=== PATIENT | female | born 1950 | race Caucasian/White ===

== ENCOUNTER → 2020-08-10 08:55 | Outpatient (BNVA) | payer OTHER, SELFPAY | PROVIDERS: PCP Internal Medicine; Visit Provider Physician Assistant | DX: M77.8 Other enthesopathies, not elsewhere classified (principal) | CPT/HCPCS: 99213 ==

== ENCOUNTER 2020-08-21 13:19 | Outpatient (REF) | payer OTHER, SELFPAY ==
[2020-08-21 14:53] LABS: Basophils Percent Auto 0.5 % (0-2); Eosinophils Absolute Auto 0.1 X10*3/uL (0.0-0.4); Eosinophils Percent Auto 2.1 % (0-4); Hematocrit 33.5 % (37-47); Hemoglobin 10.2 g/dl (12.0-16.0); Imm Gran Abs Auto 0.02 X10*3/uL (0.00-0.03); Imm Gran Pct Auto 0.3 % (0.0-0.4); Lymphocytes Absolute Auto 0.5 X10*3/uL (1.2-4.9); Lymphocytes Percent Auto 8.2 % (20-40); MANUAL DIFF FLAG SCAN; Mean Corpuscular HGB Conc 30.4 g/dl (31.0-35.0); Mean Corpuscular Hemoglobin 26.6 pg (27.0-33.0); Mean Corpuscular Volume 87.5 fL (80-98); Mean Platelet Volume 11.8 fL (9.4-12.3); Monocytes Absolute Auto 0.6 X10*3/uL (0.1-1.2); Monocytes Percent Auto 9.3 % (2-11); Neutrophils Absolute Auto 4.9 X10*3/uL (2.0-8.3); Neutrophils Percent Auto 79.6 % (45-73); Platelet Count 165 X10*3/uL (160-400); Red Blood Count 3.83 X10*6/uL (4.20-5.50); SCAN SMEAR FLAG 1; White Blood Count 6.1 X10*3/uL (4.8-10.8)
[2020-08-21 15:15] LABS: Anion Gap 15 (12-20); Blood Urea Nitrogen 60 mg/dL (9-16); Calcium 8.5 mg/dL (8.4-10.2); Carbon Dioxide 25 mmol/L (22-29); Chloride 104 mmol/L (96-108); Estimated Glomerular Filt Rate 21; Glucose Random 88 mg/dL (60-115); Potassium 4.6 mmol/l (3.3-5.1); Sodium 139 mmol/L (135-145)
[2020-08-21 15:16] LABS: SLIDE REVIEW VERIFIED
== END 2020-08-21 13:20 | disposition home or self-care (01) ==
LOC: HO.LABR 13:19
PROVIDERS: PCP Internal Medicine; Visit Provider Internal Medicine
DX: N18.9 Chronic kidney disease, unspecified (principal)
CPT/HCPCS: 36415; 80048; 85025; 85610; 99211

== ENCOUNTER → 2020-08-27 15:38 | Outpatient (BNVA) | payer OTHER, SELFPAY | PROVIDERS: PCP Internal Medicine; Visit Provider Internal Medicine | DX: Z95.2 Presence of prosthetic heart valve (principal); Z51.81 Encounter for therapeutic drug level monitoring; Z79.01 Long term (current) use of anticoagulants | CPT/HCPCS: 85610 ==

== ENCOUNTER 2020-08-29 12:41 | Outpatient (REF) | payer OTHER, SELFPAY ==
[2020-08-29 13:55] LABS: Basophils Percent Auto 0.5 % (0-2); Eosinophils Absolute Auto 0.1 X10*3/uL (0.0-0.4); Eosinophils Percent Auto 1.9 % (0-4); Hematocrit 31.3 % (37-47); Hemoglobin 9.5 g/dl (12.0-16.0); Imm Gran Abs Auto 0.01 X10*3/uL (0.00-0.03); Imm Gran Pct Auto 0.2 % (0.0-0.4); Lymphocytes Absolute Auto 0.6 X10*3/uL (1.2-4.9); Lymphocytes Percent Auto 10.2 % (20-40); MANUAL DIFF FLAG SCAN; Mean Corpuscular HGB Conc 30.4 g/dl (31.0-35.0); Mean Corpuscular Hemoglobin 26.2 pg (27.0-33.0); Mean Corpuscular Volume 86.5 fL (80-98); Monocytes Absolute Auto 0.6 X10*3/uL (0.1-1.2); Monocytes Percent Auto 8.9 % (2-11); Neutrophils Absolute Auto 4.8 X10*3/uL (2.0-8.3); Neutrophils Percent Auto 78.3 % (45-73); Platelet Count 134 X10*3/uL (160-400); Red Blood Count 3.62 X10*6/uL (4.20-5.50); Red Cell Distribution Width 19.3 % (11.0-16.0); SCAN SMEAR FLAG 1; White Blood Count 6.2 X10*3/uL (4.8-10.8)
[2020-08-29 14:16] LABS: SLIDE REVIEW VERIFIED
== END 2020-08-29 12:42 | disposition home or self-care (01) ==
LOC: HO.LAB 12:41
PROVIDERS: Absent Provider Internal Medicine Hypertension Specialist; PCP Internal Medicine; Visit Provider Internal Medicine Medical Oncology
DX: E85.89 Other amyloidosis (principal); N18.9 Chronic kidney disease, unspecified
CPT/HCPCS: 36415; 85025

== ENCOUNTER 2020-09-04 14:23 | Outpatient (REF) | payer OTHER, SELFPAY ==
[2020-09-04 15:01] LABS: Basophils Percent Auto 0.3 % (0-2); Eosinophils Absolute Auto 0.1 X10*3/uL (0.0-0.4); Eosinophils Percent Auto 1.5 % (0-4); Hematocrit 32.3 % (37-47); Hemoglobin 9.8 g/dl (12.0-16.0); Imm Gran Abs Auto 0.03 X10*3/uL (0.00-0.03); Imm Gran Pct Auto 0.4 % (0.0-0.4); Lymphocytes Absolute Auto 0.5 X10*3/uL (1.2-4.9); Lymphocytes Percent Auto 6.9 % (20-40); MANUAL DIFF FLAG SCAN; Mean Corpuscular HGB Conc 30.3 g/dl (31.0-35.0); Mean Corpuscular Hemoglobin 26.1 pg (27.0-33.0); Mean Corpuscular Volume 85.9 fL (80-98); Mean Platelet Volume 11.2 fL (9.4-12.3); Monocytes Absolute Auto 0.8 X10*3/uL (0.1-1.2); Monocytes Percent Auto 9.9 % (2-11); Neutrophils Absolute Auto 6.3 X10*3/uL (2.0-8.3); Platelet Count 171 X10*3/uL (160-400); Red Blood Count 3.76 X10*6/uL (4.20-5.50); Red Cell Distribution Width 19.5 % (11.0-16.0); SCAN SMEAR FLAG 1; White Blood Count 7.8 X10*3/uL (4.8-10.8)
[2020-09-04 15:30] LABS: SLIDE REVIEW VERIFIED
[2020-09-04 15:31] LABS: Anion Gap 17 (12-20); Blood Urea Nitrogen 55 mg/dL (9-16); Calcium 8.5 mg/dL (8.4-10.2); Carbon Dioxide 25 mmol/L (22-29); Chloride 101 mmol/L (96-108); Estimated Glomerular Filt Rate 19; Glucose Random 97 mg/dL (60-115); Potassium 4.5 mmol/l (3.3-5.1); Sodium 138 mmol/L (135-145)
== END 2020-09-04 14:24 | disposition home or self-care (01) ==
LOC: HO.LABR 14:23
PROVIDERS: PCP Internal Medicine; Visit Provider Internal Medicine
DX: N18.9 Chronic kidney disease, unspecified (principal)
CPT/HCPCS: 36415; 80048; 85025; 85610

== ENCOUNTER 2020-09-13 07:44 | Outpatient (REF) | payer OTHER, SELFPAY ==
[2020-09-13 09:12] LABS: Basophils Percent Auto 0.5 % (0-2); Eosinophils Absolute Auto 0.1 X10*3/uL (0.0-0.4); Eosinophils Percent Auto 1.8 % (0-4); Hematocrit 32.1 % (37-47); Hemoglobin 9.7 g/dl (12.0-16.0); Imm Gran Abs Auto 0.03 X10*3/uL (0.00-0.03); Imm Gran Pct Auto 0.5 % (0.0-0.4); Lymphocytes Percent Auto 15.9 % (20-40); MANUAL DIFF FLAG SCAN; Mean Corpuscular HGB Conc 30.2 g/dl (31.0-35.0); Mean Corpuscular Hemoglobin 26.1 pg (27.0-33.0); Mean Corpuscular Volume 86.5 fL (80-98); Mean Platelet Volume 11.5 fL (9.4-12.3); Monocytes Absolute Auto 0.6 X10*3/uL (0.1-1.2); Monocytes Percent Auto 9.5 % (2-11); Neutrophils Absolute Auto 4.7 X10*3/uL (2.0-8.3); Neutrophils Percent Auto 71.8 % (45-73); Platelet Count 159 X10*3/uL (160-400); Red Blood Count 3.71 X10*6/uL (4.20-5.50); Red Cell Distribution Width 19.4 % (11.0-16.0); Retic HGB Equivalent 30.7 pg (30.0-35.0); Reticulocytes Absolute 0.037 X10*6/uL (0.026-0.095); SCAN SMEAR FLAG 1; White Blood Count 6.6 X10*3/uL (4.8-10.8)
[2020-09-13 09:34] LABS: SLIDE REVIEW VERIFIED
[2020-09-13 09:41] LABS: Alanine Aminotransferase 21 U/L (0-31); Albumin Level 3.4 g/dL (3.5-5.0); Alkaline Phosphatase 156 U/L (39-117); Anion Gap 13 (12-20); Aspartate Amino Transferase 20 U/L (5-31); Bilirubin Total 0.6 mg/dL (0.0-1.0); Blood Urea Nitrogen 55 mg/dL (9-16); Carbon Dioxide 25 mmol/L (22-29); Chloride 104 mmol/L (96-108); Cholesterol 109 mg/dL; Estimated Glomerular Filt Rate 20; Glucose Random 87 mg/dL (60-115); HDL Cholesterol 47 mg/dL; Iron 32 mcg/dL (30-160); LDL Cholesterol Calculated 49 mg/dl; Percent Iron Saturation 13 % (15-50); Potassium 4.2 mmol/l (3.3-5.1); Sodium 138 mmol/L (135-145); Total Iron Binding Capacity 239 mcg/dL (228-428); Total Protein 7.1 g/dL (6.5-8.0); Triglycerides 68 mg/dL; Unsaturated Iron Binding 207 ug/dL
[2020-09-13 10:05] LABS: Free T4 (Free Thyroxine) 1.37 ng/dL (0.71-1.85); Thyroid Stimulating Hormone 4.58 mIU/mL (0.32-4.0)
[2020-09-13 10:25] LABS: Folate 11.2 ng/mL (> or = 4.0); Vitamin B12 711 pg/mL (200-900)
[2020-09-13 10:27] LABS: Ferritin 302 ng/mL (10-250)
== END 2020-09-13 07:45 | disposition home or self-care (01) ==
LOC: HO.LAB 07:44
PROVIDERS: Visit Provider Internal Medicine
DX: I48.0 Paroxysmal atrial fibrillation (principal); I50.22 Chronic systolic (congestive) heart failure; E03.9 Hypothyroidism, unspecified; E78.00 Pure hypercholesterolemia, unspecified
CPT/HCPCS: 36415; 80053; 80061; 82607; 82728; 82746; 83540; 84439; 84443; 85025; 85045

== ENCOUNTER 2020-09-17 12:41 | Outpatient (REF) | payer OTHER, SELFPAY ==
[2020-09-17 14:57] LABS: Basophils Percent Auto 0.5 % (0-2); Eosinophils Absolute Auto 0.1 X10*3/uL (0.0-0.4); Eosinophils Percent Auto 1.8 % (0-4); Hematocrit 32.2 % (37-47); Hemoglobin 9.6 g/dl (12.0-16.0); Imm Gran Abs Auto 0.01 X10*3/uL (0.00-0.03); Imm Gran Pct Auto 0.2 % (0.0-0.4); Lymphocytes Absolute Auto 0.6 X10*3/uL (1.2-4.9); Lymphocytes Percent Auto 8.5 % (20-40); MANUAL DIFF FLAG SCAN; Mean Corpuscular HGB Conc 29.8 g/dl (31.0-35.0); Mean Corpuscular Hemoglobin 26.1 pg (27.0-33.0); Mean Corpuscular Volume 87.5 fL (80-98); Mean Platelet Volume 11.5 fL (9.4-12.3); Monocytes Absolute Auto 0.6 X10*3/uL (0.1-1.2); Monocytes Percent Auto 9.2 % (2-11); Neutrophils Absolute Auto 5.2 X10*3/uL (2.0-8.3); Neutrophils Percent Auto 79.8 % (45-73); Platelet Count 181 X10*3/uL (160-400); Red Blood Count 3.68 X10*6/uL (4.20-5.50); SCAN SMEAR FLAG 1; White Blood Count 6.5 X10*3/uL (4.8-10.8)
[2020-09-17 15:27] LABS: SLIDE REVIEW VERIFIED
[2020-09-17 15:28] LABS: Anion Gap 14 (12-20); Blood Urea Nitrogen 62 mg/dL (9-16); Calcium 8.3 mg/dL (8.4-10.2); Carbon Dioxide 25 mmol/L (22-29); Chloride 103 mmol/L (96-108); Estimated Glomerular Filt Rate 20; Glucose Random 72 mg/dL (60-115); Potassium 4.4 mmol/l (3.3-5.1); Sodium 138 mmol/L (135-145)
== END 2020-09-17 12:42 | disposition home or self-care (01) ==
LOC: HO.LABR 12:41
PROVIDERS: PCP Internal Medicine; Visit Provider Internal Medicine
DX: N18.9 Chronic kidney disease, unspecified (principal)
CPT/HCPCS: 36415; 80048; 85025; 85610

== ENCOUNTER → 2020-09-21 12:31 | Outpatient (REF) | payer OTHER, SELFPAY ==
--- NOTE | 2020-09-21 12:34 | CA_ITS ---
Transthoracic Echocardiogram Patient (Last, First, Middle): [place] Dooley E Gender: Female Date of : 1950 Age: 70 Procedure Date: 09/21/2020 Procedure Type: Transthoracic Echocardiogram Location: OP Height: 175.26 cm Weight: 81.65 kg BSA: 1.98 m2 Heart Rate: bpm BP: 128 / 60 mmHg Biscuit Machine Operator: Referring MD: Lonnie Estrella MD Forming Machine Upkeep Mechanic: Lonnie Estrella MD Symptoms: CHRONIC AFIB, 148.2 Study Quality: Fair ECG Rhythm: Atrial Fibrillation with intermittent V pacing Conclusions: - 1. Moderately dilated left ventricle with severe LV systolic dysfunction with LVEF of 15-20% 2. Normally functioning mechanical mitral valve with mean gradient of 3 mm of mercury 3. Severe left atrial enlargement 4. Moderate to severe tricuspid regurgitation 5. Moderately elevated right ventricular systolic pressure with significant elevated right atrial pressures 6. No pericardial effusion Findings Left Ventricle Moderately increased left ventricular cavity size. There is mildly increased left ventricular wall thickness. The left ventricular systolic function is severely decreased. The visually estimated ejection fraction is between 15 20%. Diastolic function is indeterminate on the basis of available data. Wall Motion Rest Echo Findings The inferior wall, anterolateral wall, inferolateral wall, the basal anterior, and basal anteroseptal segments are hypokinetic. The inferoseptal wall, the apex, apical anterior, mid anterior, apical lateral, apical septum, and mid anteroseptal segments are akinetic. Right Ventricle Mildly increased right ventricular cavity size. There is normal right ventricular systolic function. There is an ICD wire seen in the right ventricle. Atria The left atrium is severely dilated. There is no evidence of interatrial shunt. The right atrium is severely dilated. Aortic Valve Normal aortic valve structure and function. There is no aortic valve stenosis. There is no aortic valve regurgitation. Mitral Valve A mechanical prosthetic mitral valve is present. The prosthetic mitral valve appears to be functioning normally. The mean mitral valve gradient is 3.00 mmHg. the mechanical valve is well seated with no abnormal rocking motion. Due to shadowing significant MR can not be evaluated, however based on the gradients this is unlikely Pulmonic Valve The pulmonic valve is likely normal. Tricuspid Valve Normal tricuspid valve structure. There is moderate to severe tricuspid valve regurgitation. Significantly elevated right atrial pressure. Moderate pulmonary hypertension is present. Great Vessels All visible segments of the aorta are normal in size. The pulmonary artery was not well visualized. Venous The inferior vena cava is moderately dilated and does not collapse with inspiration. Pericardium/Pleural There is no evidence of pericardial effusion. Prior Study Comparison No significant change compared to prior study dated: 09/13/2019. Measurements 2D Linear Measurements IVSd: 1.20 0.6-0.9/0.6-1.0 cm LVIDd: 6.74 3.9-5.3/4.2-5.9 cm LVIDd Index: 3.40 2.4-3.2/2.2-3.1 cm/m2 LVIDs: 5.92 2.0-3.6 cm LVPWd: 1.17 0.7-1.1 cm Ao Root: 2.50 2.1-3.5 cm LA Diam: 6.50 2.7-3.8/3.0-4.0 cm LAIDs Index: 3.28 1.5-2.3 cm/m2 LV Mass: 467.87 67-162/88-224 g LV Mass Index: 236.30 43-95/49-115 g/m2 LVOT Diam: 2.00 3.0+(-)1.3 cm Mitral Valve MV VTI: 0.40 MV Pk Cand[place]: 1.70 MV Mn Candelario: 0.66 MV Pk Grad: 12.00 MV Mn Grad: 3.00 MV Pk E: 1.39 MV Decel Time: 345.00 E'Lateral: 5.13 E'Medial: 5.90 E/E' Med: 23.60 E/E' Lat: 27.10 PHT: 101.00 MVA PHT: 2.18 MVA Continuity: 1.07 Decel [place]: 4.40 Aortic Valve AoV Pk [place]: 1.20 AoV Mn [place]: 0.81 AoV VTI: 0.29 AoV Pk Grad: 6.00 Aov Mn Grad: 3.00 AARON Cont.VTI: 1.48 LVOT LVOT Pk [place]: 0.80 LVOT Mn [place]: 0.45 LVOT VTI: 0.14 LVOT Pk Grad: 3.00 LVOT Mn Grad: 1.00 LVOT Diam: 2.00 LVOT Area: 3.14 Diastolic Function MV Pk E: 1.39 E'Medial: 5.90 E/E' Med: 23.60 E' Laterial: 5.13 E/E' Lat: 27.10 Tricuspid Valve TR Pk [place]: 3.02 TR Pk Grad: 36.00 RA Press: 15.00 RVSP: 51.00 Great Vessels Aorta Ao Root-2D: 2.50 2.0-3.7 cm Ao Asc: 3.00 2.1-3.4 cm Pulmonary Valve PV Pk Candelario: 0.79 Peak PV Grad: 2.00 Updated in Other Vendor System with Status of Final Lonnie Estrella MD electronically signed on 09/22/2020 1:55:19 PM with status of Final
== END ==
LOC: HO.CARD 12:31
PROVIDERS: Visit Provider Internal Medicine Cardiovascular Disease
DX: I25.5 Ischemic cardiomyopathy (principal); I25.10 Atherosclerotic heart disease of native coronary artery without angina pectoris; I50.9 Heart failure, unspecified; Z95.1 Presence of aortocoronary bypass graft; Z95.2 Presence of prosthetic heart valve
CPT/HCPCS: 93306

== ENCOUNTER → 2020-09-24 13:48 | Outpatient (BNVA) | payer OTHER, SELFPAY | PROVIDERS: PCP Internal Medicine; Visit Provider Internal Medicine | DX: Z95.2 Presence of prosthetic heart valve (principal); Z51.81 Encounter for therapeutic drug level monitoring; Z79.01 Long term (current) use of anticoagulants | CPT/HCPCS: 85610; 99211 ==

== ENCOUNTER → 2020-09-25 14:51 | Outpatient (BNVA) | payer OTHER, SELFPAY | PROVIDERS: PCP Internal Medicine; Referring Provider Internal Medicine; Visit Provider Internal Medicine Cardiovascular Disease | DX: I50.22 Chronic systolic (congestive) heart failure (principal); I25.5 Ischemic cardiomyopathy; I48.20 Chronic atrial fibrillation, unspecified; Z79.01 Long term (current) use of anticoagulants; Z95.2 Presence of prosthetic heart valve; Z95.810 Presence of automatic (implantable) cardiac defibrillator; Z79.899 Other long term (current) drug therapy | CPT/HCPCS: Q3014 ==

== ENCOUNTER → 2020-09-28 13:41 | Outpatient (BNVA) | payer OTHER, SELFPAY | PROVIDERS: PCP Internal Medicine; Visit Provider Internal Medicine | DX: Z95.2 Presence of prosthetic heart valve (principal); Z51.81 Encounter for therapeutic drug level monitoring; Z79.01 Long term (current) use of anticoagulants | CPT/HCPCS: 85610; 99211 ==

== ENCOUNTER 2020-10-02 13:18 | Outpatient (REF) | payer OTHER, SELFPAY ==
[2020-10-02 14:15] LABS: Basophils Percent Auto 0.2 % (0-2); Eosinophils Absolute Auto 0.1 X10*3/uL (0.0-0.4); Eosinophils Percent Auto 1.9 % (0-4); Hematocrit 32.9 % (37-47); Hemoglobin 10.1 g/dl (12.0-16.0); Imm Gran Abs Auto 0.03 X10*3/uL (0.00-0.03); Imm Gran Pct Auto 0.5 % (0.0-0.4); Lymphocytes Absolute Auto 0.5 X10*3/uL (1.2-4.9); Lymphocytes Percent Auto 7.9 % (20-40); MANUAL DIFF FLAG SCAN; Mean Corpuscular HGB Conc 30.7 g/dl (31.0-35.0); Mean Corpuscular Hemoglobin 26.6 pg (27.0-33.0); Mean Corpuscular Volume 86.8 fL (80-98); Mean Platelet Volume 11.3 fL (9.4-12.3); Monocytes Absolute Auto 0.7 X10*3/uL (0.1-1.2); Monocytes Percent Auto 10.8 % (2-11); Neutrophils Absolute Auto 5.1 X10*3/uL (2.0-8.3); Neutrophils Percent Auto 78.7 % (45-73); Platelet Count 162 X10*3/uL (160-400); Red Blood Count 3.79 X10*6/uL (4.20-5.50); Red Cell Distribution Width 20.2 % (11.0-16.0); SCAN SMEAR FLAG 1; White Blood Count 6.5 X10*3/uL (4.8-10.8)
[2020-10-02 14:36] LABS: Anion Gap 14 (12-20); Blood Urea Nitrogen 61 mg/dL (9-16); Calcium 8.4 mg/dL (8.4-10.2); Carbon Dioxide 25 mmol/L (22-29); Chloride 100 mmol/L (96-108); Estimated Glomerular Filt Rate 20; Glucose Random 76 mg/dL (60-115); Potassium 4.3 mmol/l (3.3-5.1); Sodium 135 mmol/L (135-145)
[2020-10-02 14:44] LABS: Digoxin < 0.3 ng/mL (0.8-2.0)
[2020-10-02 15:07] LABS: SLIDE REVIEW VERIFIED
== END 2020-10-02 13:19 | disposition home or self-care (01) ==
LOC: HO.LABR 13:18
PROVIDERS: Internal Medicine; PCP Internal Medicine; Visit Provider Internal Medicine
DX: I48.0 Paroxysmal atrial fibrillation (principal); Z79.01 Long term (current) use of anticoagulants; N18.9 Chronic kidney disease, unspecified
CPT/HCPCS: 36415; 80048; 80162; 85025; 85610; 99211

== ENCOUNTER 2020-10-05 12:24 | Outpatient (REF) | payer OTHER, SELFPAY ==
--- NOTE | 2020-10-05 12:31 | XR_ITS ---
EXAMINATION: XR KNEES, STANDING AP XR KNEE, RIGHT CLINICAL INFORMATION: Right knee pain COMPARISON: Radiographs standing AP knees 01/30/2017, right knee 01/15/2017 TECHNIQUE: Standing AP view of both knees is performed along with lateral and axial patella views of the right knee. FINDINGS: Right knee: No fracture or dislocation or destructive process. There is borderline narrowing medial knee joint compartment. No erosive changes or chondrocalcinosis. Mild degenerative changes patellofemoral joint again seen with small lateral patellar spur. There is spurring at quadriceps insertion patella. No lateralization or definite tilting patella. No knee joint effusion. Hoffa's fat pad appears normal. There are surgical clips posterior medial upper and lower leg soft tissues. Left knee: No fracture or dislocation or destructive process. No definite knee joint compartment narrowing XR/XR knee RT 2V IMPRESSION: 1. Right: Borderline narrowing right medial knee joint compartment. No erosive change. Degenerative changes right patellofemoral joint. Spurring at quadriceps insertion. No effusion. 2. Left: Unremarkable left knee.
--- NOTE | 2020-10-05 12:31 | XR_ITS ---
EXAMINATION: XR KNEES, STANDING AP XR KNEE, RIGHT CLINICAL INFORMATION: Right knee pain COMPARISON: Radiographs standing AP knees 01/30/2017, right knee 01/15/2017 TECHNIQUE: Standing AP view of both knees is performed along with lateral and axial patella views of the right knee. FINDINGS: Right knee: No fracture or dislocation or destructive process. There is borderline narrowing medial knee joint compartment. No erosive changes or chondrocalcinosis. Mild degenerative changes patellofemoral joint again seen with small lateral patellar spur. There is spurring at quadriceps insertion patella. No lateralization or definite tilting patella. No knee joint effusion. Hoffa's fat pad appears normal. There are surgical clips posterior medial upper and lower leg soft tissues. Left knee: No fracture or dislocation or destructive process. No definite knee joint compartment narrowing XR/XR knee standing BI IMPRESSION: 1. Right: Borderline narrowing right medial knee joint compartment. No erosive change. Degenerative changes right patellofemoral joint. Spurring at quadriceps insertion. No effusion. 2. Left: Unremarkable left knee.
== END 2020-10-05 12:25 | disposition home or self-care (01) ==
LOC: HO.XRAY 12:24
PROVIDERS: PCP Internal Medicine; Visit Provider Orthopaedic Surgery
DX: M25.561 Pain in right knee (principal)
CPT/HCPCS: 73560; 73565

== ENCOUNTER → 2020-10-08 13:44 | Outpatient (BNVA) | payer OTHER, SELFPAY | PROVIDERS: PCP Internal Medicine; Visit Provider Internal Medicine | DX: Z95.2 Presence of prosthetic heart valve (principal); Z51.81 Encounter for therapeutic drug level monitoring; Z79.01 Long term (current) use of anticoagulants | CPT/HCPCS: 85610; 99211 ==

== ENCOUNTER 2020-10-16 14:04 | Outpatient (REF) | payer OTHER, SELFPAY ==
[2020-10-16 15:04] LABS: Basophils Percent Auto 0.3 % (0-2); Eosinophils Absolute Auto 0.2 X10*3/uL (0.0-0.4); Eosinophils Percent Auto 2.8 % (0-4); Hematocrit 33.6 % (37-47); Hemoglobin 9.9 g/dl (12.0-16.0); Imm Gran Abs Auto 0.03 X10*3/uL (0.00-0.03); Imm Gran Pct Auto 0.5 % (0.0-0.4); Lymphocytes Absolute Auto 0.5 X10*3/uL (1.2-4.9); Lymphocytes Percent Auto 7.7 % (20-40); MANUAL DIFF FLAG SCAN; Mean Corpuscular HGB Conc 29.5 g/dl (31.0-35.0); Mean Corpuscular Hemoglobin 26.1 pg (27.0-33.0); Mean Corpuscular Volume 88.4 fL (80-98); Mean Platelet Volume 10.9 fL (9.4-12.3); Monocytes Absolute Auto 0.6 X10*3/uL (0.1-1.2); Monocytes Percent Auto 9.1 % (2-11); Neutrophils Absolute Auto 5.1 X10*3/uL (2.0-8.3); Neutrophils Percent Auto 79.6 % (45-73); Platelet Count 174 X10*3/uL (160-400); Red Cell Distribution Width 19.5 % (11.0-16.0); SCAN SMEAR FLAG 1; White Blood Count 6.5 X10*3/uL (4.8-10.8)
[2020-10-16 15:26] LABS: Anion Gap 17 (12-20); Blood Urea Nitrogen 60 mg/dL (9-16); Calcium 8.5 mg/dL (8.4-10.2); Carbon Dioxide 26 mmol/L (22-29); Chloride 99 mmol/L (96-108); Estimated Glomerular Filt Rate 21; Glucose Random 78 mg/dL (60-115); Potassium 4.7 mmol/l (3.3-5.1); Sodium 137 mmol/L (135-145)
[2020-10-16 15:35] LABS: SLIDE REVIEW VERIFIED
== END 2020-10-16 14:05 | disposition home or self-care (01) ==
LOC: HO.LABR 14:04
PROVIDERS: PCP Internal Medicine; Visit Provider Internal Medicine
DX: N18.9 Chronic kidney disease, unspecified (principal)
CPT/HCPCS: 36415; 80048; 85025; 85610; 99211

== ENCOUNTER → 2020-10-22 11:47 | Outpatient (BNVA) | payer OTHER, SELFPAY | PROVIDERS: PCP Internal Medicine; Referring Provider Internal Medicine; Visit Provider Orthopaedic Surgery | DX: M17.11 Unilateral primary osteoarthritis, right knee (principal) | CPT/HCPCS: 20610; 85610; 99211; 99212 ==

== ENCOUNTER 2020-10-26 10:33 | Outpatient (REF) | payer OTHER, SELFPAY ==
[2020-10-26 11:38] LABS: MANUAL DIFF FLAG NO
[2020-10-26 11:39] LABS: Basophils Percent Auto 0.5 % (0-2); Eosinophils Absolute Auto 0.1 X10*3/uL (0.0-0.4); Eosinophils Percent Auto 1.6 % (0-4); Hematocrit 31.7 % (37-47); Hemoglobin 9.6 g/dl (12.0-16.0); Imm Gran Abs Auto 0.03 X10*3/uL (0.00-0.03); Imm Gran Pct Auto 0.4 % (0.0-0.4); Immature Retic Fraction 30.3 % (3.0-15.9); Lymphocytes Absolute Auto 0.7 X10*3/uL (1.2-4.9); Lymphocytes Percent Auto 8.3 % (20-40); Mean Corpuscular HGB Conc 30.3 g/dl (31.0-35.0); Mean Corpuscular Hemoglobin 26.7 pg (27.0-33.0); Mean Corpuscular Volume 88.3 fL (80-98); Mean Platelet Volume 12.2 fL (9.4-12.3); Monocytes Absolute Auto 0.8 X10*3/uL (0.1-1.2); Monocytes Percent Auto 9.8 % (2-11); Neutrophils Absolute Auto 6.8 X10*3/uL (2.0-8.3); Neutrophils Percent Auto 79.4 % (45-73); Platelet Count 172 X10*3/uL (160-400); Red Blood Count 3.59 X10*6/uL (4.20-5.50); Retic HGB Equivalent 33.8 pg (30.0-35.0); Reticulocyte Percent 1.6 % (0.5-1.8); Reticulocytes Absolute 0.059 X10*6/uL (0.026-0.095); White Blood Count 8.6 X10*3/uL (4.8-10.8)
[2020-10-26 12:02] LABS: Glucose Urine UA NEG (NEG); Leukocyte Esterase Urine NEG (NEG); Nitrite Urine NEG (NEG); PH 6.5 (5.0-8.0); Urine Blood TRACE (NEG); Urine Ketones NEG (NEG); Urine Protein 2+ MG/DL (NEG-TRACE)
[2020-10-26 12:05] LABS: Appearance Urine CLEAR; Color Urine YELLOW
[2020-10-26 12:06] LABS: Alanine Aminotransferase 23 U/L (0-31); Albumin Level 3.4 g/dL (3.5-5.0); Alkaline Phosphatase 147 U/L (39-117); Anion Gap 16 (12-20); Aspartate Amino Transferase 20 U/L (5-31); Bilirubin Total 0.8 mg/dL (0.0-1.0); Blood Urea Nitrogen 62 mg/dL (9-16); Calcium 8.4 mg/dL (8.4-10.2); Carbon Dioxide 23 mmol/L (22-29); Chloride 100 mmol/L (96-108); Cholesterol 115 mg/dL; Estimated Glomerular Filt Rate 23; Glucose Random 87 mg/dL (60-115); HDL Cholesterol 51 mg/dL; Iron 33 mcg/dL (30-160); LDL Cholesterol Calculated 49 mg/dl; Percent Iron Saturation 14 % (15-50); Sodium 135 mmol/L (135-145); Total Iron Binding Capacity 231 mcg/dL (228-428); Triglycerides 75 mg/dL; Unsaturated Iron Binding 198 ug/dL
[2020-10-26 12:09] LABS: B Type Natriuretic Peptide 483 pg/mL (<100)
[2020-10-26 12:28] LABS: Ferritin 361 ng/mL (10-250); Free T4 (Free Thyroxine) 1.58 ng/dL (0.71-1.85); Thyroid Stimulating Hormone 3.04 uIU/mL (0.32-4.0)
[2020-10-26 12:29] LABS: RBC Urine 0-2 /HPF (0); Squamous Epithelial Cell Urine TRACE /LPF
[2020-10-26 13:03] LABS: Folate 12.5 ng/mL (> or = 4.0); Vitamin B12 852 pg/mL (200-900)
== END 2020-10-26 10:34 | disposition home or self-care (01) ==
LOC: HO.LAB 10:33
PROVIDERS: PCP Internal Medicine; Visit Provider Internal Medicine
DX: E78.00 Pure hypercholesterolemia, unspecified (principal); E03.9 Hypothyroidism, unspecified; I50.22 Chronic systolic (congestive) heart failure
CPT/HCPCS: 36415; 80053; 80061; 81001; 82607; 82728; 82746; 83540; 83880; 84439; 84443; 85025; 85045

== ENCOUNTER → 2020-10-31 13:03 | Outpatient (BNVA) | payer OTHER, SELFPAY | PROVIDERS: PCP Internal Medicine; Visit Provider Internal Medicine | DX: Z95.2 Presence of prosthetic heart valve (principal); Z51.81 Encounter for therapeutic drug level monitoring; Z79.01 Long term (current) use of anticoagulants | CPT/HCPCS: 85610; 99211 ==

== ENCOUNTER → 2020-11-05 13:08 | Outpatient (BNVA) | payer OTHER, SELFPAY | PROVIDERS: PCP Internal Medicine; Visit Provider Internal Medicine | DX: Z95.2 Presence of prosthetic heart valve (principal); Z51.81 Encounter for therapeutic drug level monitoring; Z79.01 Long term (current) use of anticoagulants | CPT/HCPCS: 85610; 99211 ==

== ENCOUNTER → 2020-11-12 13:27 | Outpatient (BNVA) | payer OTHER, SELFPAY | PROVIDERS: PCP Internal Medicine; Visit Provider Internal Medicine | DX: Z95.2 Presence of prosthetic heart valve (principal); Z51.81 Encounter for therapeutic drug level monitoring; Z79.01 Long term (current) use of anticoagulants | CPT/HCPCS: 85610; 99211 ==

== ENCOUNTER 2020-11-14 06:23 | Outpatient (REF) | payer OTHER, SELFPAY ==
[2020-11-14 07:19] LABS: MANUAL DIFF FLAG NO
[2020-11-14 07:21] LABS: Basophils Percent Auto 0.5 % (0-2); Eosinophils Absolute Auto 0.2 X10*3/uL (0.0-0.4); Eosinophils Percent Auto 2.3 % (0-4); Hematocrit 29.9 % (37-47); Hemoglobin 9.1 g/dl (12.0-16.0); Imm Gran Abs Auto 0.03 X10*3/uL (0.00-0.03); Imm Gran Pct Auto 0.5 % (0.0-0.4); Lymphocytes Absolute Auto 0.8 X10*3/uL (1.2-4.9); Lymphocytes Percent Auto 12.1 % (20-40); Mean Corpuscular HGB Conc 30.4 g/dl (31.0-35.0); Mean Corpuscular Hemoglobin 27.4 pg (27.0-33.0); Mean Corpuscular Volume 90.1 fL (80-98); Mean Platelet Volume 10.9 fL (9.4-12.3); Monocytes Absolute Auto 0.6 X10*3/uL (0.1-1.2); Monocytes Percent Auto 9.4 % (2-11); Neutrophils Percent Auto 75.2 % (45-73); Platelet Count 165 X10*3/uL (160-400); Red Blood Count 3.32 X10*6/uL (4.20-5.50); Red Cell Distribution Width 19.3 % (11.0-16.0); White Blood Count 6.6 X10*3/uL (4.8-10.8)
[2020-11-14 07:38] LABS: Iron 34 mcg/dL (30-160); Percent Iron Saturation 14 % (15-50); Total Iron Binding Capacity 239 mcg/dL (228-428); Unsaturated Iron Binding 205 ug/dL
[2020-11-14 07:47] LABS: Anion Gap 17 (12-20); Blood Urea Nitrogen 52 mg/dL (9-16); Calcium 8.4 mg/dL (8.4-10.2); Carbon Dioxide 23 mmol/L (22-29); Chloride 104 mmol/L (96-108); Estimated Glomerular Filt Rate 18; Glucose Random 97 mg/dL (60-115); Sodium 140 mmol/L (135-145)
[2020-11-14 08:00] LABS: Ferritin 328 ng/mL (10-250)
[2020-11-15 18:03] LABS: IgA 649 mg/dL (70-320); IgG 1523 mg/dL (600-1540); IgM 191 mg/dL (50-300)
[2020-11-16 10:28] LABS: Kappa Light Chain, Free Serum 141.3 mg/L (3.3-19.4); Kappa/Lambda Lt Ch Free Ratio 1.35 (0.26-1.65); Lambda Light Chain, Free Serum 104.3 mg/L (5.7-26.3)
== END 2020-11-14 06:24 | disposition home or self-care (01) ==
LOC: HO.LAB 06:23
PROVIDERS: PCP Internal Medicine; Referring Provider Internal Medicine; Visit Provider Internal Medicine Medical Oncology
DX: N18.4 Chronic kidney disease, stage 4 (severe) (principal)
CPT/HCPCS: 36415; 80048; 82728; 82784; 83520; 83540; 85025; 86334

== ENCOUNTER 2020-11-27 12:46 | Outpatient (REF) | payer OTHER, SELFPAY ==
[2020-11-27 13:54] LABS: Basophils Percent Auto 0.4 % (0-2); Eosinophils Absolute Auto 0.1 X10*3/uL (0.0-0.4); Eosinophils Percent Auto 1.1 % (0-4); Hematocrit 30.2 % (37-47); Hemoglobin 9.2 g/dl (12.0-16.0); Imm Gran Abs Auto 0.04 X10*3/uL (0.00-0.03); Imm Gran Pct Auto 0.6 % (0.0-0.4); Lymphocytes Absolute Auto 0.5 X10*3/uL (1.2-4.9); MANUAL DIFF FLAG SCAN; Mean Corpuscular HGB Conc 30.5 g/dl (31.0-35.0); Mean Corpuscular Hemoglobin 27.2 pg (27.0-33.0); Mean Corpuscular Volume 89.3 fL (80-98); Mean Platelet Volume 10.8 fL (9.4-12.3); Monocytes Absolute Auto 0.7 X10*3/uL (0.1-1.2); Monocytes Percent Auto 9.6 % (2-11); Neutrophils Absolute Auto 5.8 X10*3/uL (2.0-8.3); Neutrophils Percent Auto 81.3 % (45-73); Platelet Count 161 X10*3/uL (160-400); Red Blood Count 3.38 X10*6/uL (4.20-5.50); Red Cell Distribution Width 18.8 % (11.0-16.0); SCAN SMEAR FLAG 1; White Blood Count 7.2 X10*3/uL (4.8-10.8)
[2020-11-27 14:12] LABS: Anion Gap 17 (12-20); Blood Urea Nitrogen 58 mg/dL (9-16); Calcium 8.4 mg/dL (8.4-10.2); Carbon Dioxide 25 mmol/L (22-29); Chloride 100 mmol/L (96-108); Estimated Glomerular Filt Rate 18; Glucose Random 73 mg/dL (60-115); Potassium 4.7 mmol/l (3.3-5.1); Sodium 137 mmol/L (135-145)
[2020-11-27 14:49] LABS: SLIDE REVIEW VERIFIED
== END 2020-11-27 12:47 | disposition home or self-care (01) ==
LOC: HO.LABR 12:46
PROVIDERS: Visit Provider Internal Medicine
DX: Z95.2 Presence of prosthetic heart valve (principal); N18.9 Chronic kidney disease, unspecified
CPT/HCPCS: 36415; 80048; 85025; 85610; 99211

== ENCOUNTER → 2020-12-04 13:08 | Outpatient (BNVA) | payer OTHER, SELFPAY | PROVIDERS: PCP Internal Medicine; Visit Provider Internal Medicine | DX: Z95.2 Presence of prosthetic heart valve (principal); Z51.81 Encounter for therapeutic drug level monitoring; Z79.01 Long term (current) use of anticoagulants | CPT/HCPCS: 85610; 99211 ==

== ENCOUNTER 2020-12-12 16:26 | Outpatient (REF) | payer OTHER, SELFPAY ==
[2020-12-12 17:55] LABS: Basophils Percent Auto 0.6 % (0-2); Eosinophils Absolute Auto 0.1 X10*3/uL (0.0-0.4); Eosinophils Percent Auto 1.9 % (0-4); Hematocrit 32.5 % (37-47); Hemoglobin 9.8 g/dl (12.0-16.0); Imm Gran Abs Auto 0.02 X10*3/uL (0.00-0.03); Imm Gran Pct Auto 0.3 % (0.0-0.4); Lymphocytes Absolute Auto 0.7 X10*3/uL (1.2-4.9); Lymphocytes Percent Auto 9.7 % (20-40); MANUAL DIFF FLAG NO; Mean Corpuscular HGB Conc 30.2 g/dl (31.0-35.0); Mean Corpuscular Hemoglobin 27.2 pg (27.0-33.0); Mean Corpuscular Volume 90.3 fL (80-98); Mean Platelet Volume 11.4 fL (9.4-12.3); Monocytes Absolute Auto 0.6 X10*3/uL (0.1-1.2); Monocytes Percent Auto 8.2 % (2-11); Neutrophils Absolute Auto 5.7 X10*3/uL (2.0-8.3); Neutrophils Percent Auto 79.3 % (45-73); Platelet Count 214 X10*3/uL (160-400); Red Cell Distribution Width 18.5 % (11.0-16.0); White Blood Count 7.2 X10*3/uL (4.8-10.8)
[2020-12-12 18:25] LABS: Magnesium 2.7 mg/dL (1.6-2.6); Phosphorus 4.7 mg/dL (2.7-4.5)
[2020-12-12 18:27] LABS: Alanine Aminotransferase 19 U/L (0-31); Albumin Level 3.5 g/dL (3.5-5.0); Alkaline Phosphatase 161 U/L (39-117); Anion Gap 19 (12-20); Aspartate Amino Transferase 22 U/L (5-31); Bilirubin Total 0.7 mg/dL (0.0-1.0); Blood Urea Nitrogen 51 mg/dL (9-16); Calcium 8.6 mg/dL (8.4-10.2); Carbon Dioxide 24 mmol/L (22-29); Chloride 102 mmol/L (96-108); Estimated Glomerular Filt Rate 18; Glucose Random 91 mg/dL (60-115); Potassium 4.6 mmol/L (3.3-5.1); Sodium 140 mmol/L (135-145); Total Protein 7.3 g/dL (6.5-8.0)
[2020-12-12 18:34] LABS: B Type Natriuretic Peptide 458 pg/mL (<100)
== END 2020-12-12 16:27 | disposition home or self-care (01) ==
LOC: HO.LAB 16:26
PROVIDERS: Absent Provider Internal Medicine Hypertension Specialist; PCP Internal Medicine; Visit Provider Internal Medicine
DX: I50.22 Chronic systolic (congestive) heart failure (principal)
CPT/HCPCS: 36415; 80053; 83735; 83880; 84100; 85025

== ENCOUNTER → 2020-12-13 13:46 | Outpatient (BNVA) | payer OTHER, SELFPAY | PROVIDERS: PCP Internal Medicine; Visit Provider Internal Medicine | DX: Z95.2 Presence of prosthetic heart valve (principal); Z51.81 Encounter for therapeutic drug level monitoring; Z79.01 Long term (current) use of anticoagulants | CPT/HCPCS: 85610; 99211 ==

== ENCOUNTER → 2020-12-19 13:04 | Outpatient (BNVA) | payer OTHER, SELFPAY | PROVIDERS: PCP Internal Medicine; Visit Provider Internal Medicine | DX: Z95.2 Presence of prosthetic heart valve (principal); Z51.81 Encounter for therapeutic drug level monitoring; Z79.01 Long term (current) use of anticoagulants | CPT/HCPCS: 85610; 99211 ==

== ENCOUNTER → 2020-12-25 14:21 | Outpatient (BNVA) | payer OTHER, SELFPAY | PROVIDERS: PCP Internal Medicine; Visit Provider Internal Medicine | DX: Z95.2 Presence of prosthetic heart valve (principal); Z51.81 Encounter for therapeutic drug level monitoring; Z79.01 Long term (current) use of anticoagulants | CPT/HCPCS: 85610; 99211 ==

== ENCOUNTER → 2020-12-31 14:55 | Outpatient (BNVA) | payer OTHER, SELFPAY | PROVIDERS: PCP Internal Medicine; Visit Provider Internal Medicine | DX: Z95.2 Presence of prosthetic heart valve (principal); Z51.81 Encounter for therapeutic drug level monitoring; Z79.01 Long term (current) use of anticoagulants | CPT/HCPCS: 85610; 99211 ==

== ENCOUNTER 2021-01-01 13:21 | Outpatient (REF) | payer OTHER, SELFPAY ==
[2021-01-01 15:10] LABS: Basophils Percent Auto 0.4 % (0-2); Eosinophils Absolute Auto 0.1 X10*3/uL (0.0-0.4); Eosinophils Percent Auto 1.7 % (0-4); Hematocrit 32.9 % (37-47); Hemoglobin 9.8 g/dl (12.0-16.0); Imm Gran Abs Auto 0.03 X10*3/uL (0.00-0.03); Imm Gran Pct Auto 0.4 % (0.0-0.4); Lymphocytes Absolute Auto 0.5 X10*3/uL (1.2-4.9); Lymphocytes Percent Auto 6.8 % (20-40); MANUAL DIFF FLAG SCAN; Mean Corpuscular HGB Conc 29.8 g/dl (31.0-35.0); Mean Corpuscular Hemoglobin 26.9 pg (27.0-33.0); Mean Corpuscular Volume 90.4 fL (80-98); Mean Platelet Volume 11.2 fL (9.4-12.3); Monocytes Absolute Auto 0.4 X10*3/uL (0.1-1.2); Monocytes Percent Auto 5.9 % (2-11); Neutrophils Percent Auto 84.8 % (45-73); Platelet Count 174 X10*3/uL (160-400); Red Blood Count 3.64 X10*6/uL (4.20-5.50); Red Cell Distribution Width 19.1 % (11.0-16.0); SCAN SMEAR FLAG 1; White Blood Count 7.1 X10*3/uL (4.8-10.8)
[2021-01-01 15:49] LABS: SLIDE REVIEW VERIFIED
[2021-01-01 15:53] LABS: Alanine Aminotransferase 18 U/L (0-31); Albumin Level 3.4 g/dL (3.5-5.0); Alkaline Phosphatase 154 U/L (39-117); Anion Gap 16 (12-20); Aspartate Amino Transferase 19 U/L (5-31); Bilirubin Total 0.6 mg/dL (0.0-1.0); Blood Urea Nitrogen 48 mg/dL (9-16); Calcium 8.8 mg/dL (8.4-10.2); Carbon Dioxide 22 mmol/L (22-29); Chloride 107 mmol/L (96-108); Estimated Glomerular Filt Rate 18; Glucose Random 93 mg/dL (60-115); Potassium 4.6 mmol/L (3.3-5.1); Sodium 140 mmol/L (135-145)
== END 2021-01-01 13:22 | disposition home or self-care (01) ==
LOC: HO.LAB 13:21
PROVIDERS: PCP Internal Medicine; Referring Provider Internal Medicine; Visit Provider Internal Medicine Cardiovascular Disease
DX: I50.22 Chronic systolic (congestive) heart failure (principal); I25.5 Ischemic cardiomyopathy; I07.1 Rheumatic tricuspid insufficiency; I48.20 Chronic atrial fibrillation, unspecified; Z95.2 Presence of prosthetic heart valve; N18.31 Chronic kidney disease, stage 3a; Z45.02 Encounter for adjustment and management of automatic implantable cardiac defibrillator; Z79.899 Other long term (current) drug therapy; Z79.01 Long term (current) use of anticoagulants
CPT/HCPCS: 36415; 80053; 85025; 99212

== ENCOUNTER → 2021-01-03 14:11 | Outpatient (BNVA) | payer OTHER, SELFPAY | PROVIDERS: PCP Internal Medicine; Visit Provider Internal Medicine | DX: Z95.2 Presence of prosthetic heart valve (principal); Z51.81 Encounter for therapeutic drug level monitoring; Z79.01 Long term (current) use of anticoagulants | CPT/HCPCS: 85610; 99211 ==

== ENCOUNTER → 2021-01-08 14:32 | Outpatient (BNVA) | payer OTHER, SELFPAY | PROVIDERS: PCP Internal Medicine; Visit Provider Internal Medicine | DX: Z95.2 Presence of prosthetic heart valve (principal); Z51.81 Encounter for therapeutic drug level monitoring; Z79.01 Long term (current) use of anticoagulants | CPT/HCPCS: 85610; 99211 ==

== ENCOUNTER 2021-01-15 13:51 | Outpatient (REF) | payer OTHER, SELFPAY ==
[2021-01-15 14:50] LABS: MANUAL DIFF FLAG NO
[2021-01-15 14:56] LABS: Basophils Percent Auto 0.3 % (0-2); Eosinophils Absolute Auto 0.2 X10*3/uL (0.0-0.4); Eosinophils Percent Auto 2.4 % (0-4); Hematocrit 32.3 % (37-47); Hemoglobin 9.4 g/dl (12.0-16.0); Imm Gran Abs Auto 0.02 X10*3/uL (0.00-0.03); Imm Gran Pct Auto 0.3 % (0.0-0.4); Lymphocytes Absolute Auto 0.7 X10*3/uL (1.2-4.9); Lymphocytes Percent Auto 10.8 % (20-40); Mean Corpuscular HGB Conc 29.1 g/dl (31.0-35.0); Mean Corpuscular Hemoglobin 26.3 pg (27.0-33.0); Mean Corpuscular Volume 90.2 fL (80-98); Mean Platelet Volume 10.8 fL (9.4-12.3); Monocytes Absolute Auto 0.8 X10*3/uL (0.1-1.2); Monocytes Percent Auto 11.4 % (2-11); Neutrophils Absolute Auto 4.9 X10*3/uL (2.0-8.3); Neutrophils Percent Auto 74.8 % (45-73); Platelet Count 155 X10*3/uL (160-400); Red Blood Count 3.58 X10*6/uL (4.20-5.50); Red Cell Distribution Width 18.3 % (11.0-16.0); White Blood Count 6.6 X10*3/uL (4.8-10.8)
== END 2021-01-15 13:52 | disposition home or self-care (01) ==
LOC: HO.LAB 13:51
PROVIDERS: PCP Internal Medicine; Visit Provider Internal Medicine
DX: I50.22 Chronic systolic (congestive) heart failure (principal); N18.31 Chronic kidney disease, stage 3a; Z79.01 Long term (current) use of anticoagulants; Z79.899 Other long term (current) drug therapy
CPT/HCPCS: 36415; 85025; 85610; 99211

== ENCOUNTER 2021-01-17 13:37 | Outpatient (REF) | payer OTHER, SELFPAY ==
[2021-01-17 14:12] LABS: Basophils Percent Auto 0.3 % (0-2); Eosinophils Absolute Auto 0.1 X10*3/uL (0.0-0.4); Eosinophils Percent Auto 2.2 % (0-4); Hematocrit 32.1 % (37-47); Hemoglobin 9.6 g/dl (12.0-16.0); Imm Gran Abs Auto 0.02 X10*3/uL (0.00-0.03); Imm Gran Pct Auto 0.3 % (0.0-0.4); Lymphocytes Absolute Auto 0.6 X10*3/uL (1.2-4.9); Lymphocytes Percent Auto 9.2 % (20-40); MANUAL DIFF FLAG SCAN; Mean Corpuscular HGB Conc 29.9 g/dl (31.0-35.0); Mean Corpuscular Hemoglobin 26.9 pg (27.0-33.0); Mean Corpuscular Volume 89.9 fL (80-98); Mean Platelet Volume 10.8 fL (9.4-12.3); Monocytes Absolute Auto 0.5 X10*3/uL (0.1-1.2); Monocytes Percent Auto 8.9 % (2-11); Neutrophils Absolute Auto 4.7 X10*3/uL (2.0-8.3); Neutrophils Percent Auto 79.1 % (45-73); Platelet Count 143 X10*3/uL (160-400); Red Blood Count 3.57 X10*6/uL (4.20-5.50); Red Cell Distribution Width 18.7 % (11.0-16.0); SCAN SMEAR FLAG 1
[2021-01-17 14:32] LABS: SLIDE REVIEW VERIFIED
[2021-01-17 14:47] LABS: Alanine Aminotransferase 16 U/L (0-31); Albumin Level 3.3 g/dL (3.5-5.0); Alkaline Phosphatase 145 U/L (39-117); Anion Gap 13 (12-20); Aspartate Amino Transferase 18 U/L (5-31); B Type Natriuretic Peptide 643 pg/mL (<100); Bilirubin Total 0.6 mg/dL (0.0-1.0); Blood Urea Nitrogen 54 mg/dL (9-16); Calcium 8.7 mg/dL (8.4-10.2); Carbon Dioxide 24 mmol/L (22-29); Chloride 106 mmol/L (96-108); Estimated Glomerular Filt Rate 16; Glucose Random 86 mg/dL (60-115); Potassium 4.9 mmol/L (3.3-5.1); Sodium 138 mmol/L (135-145); Total Protein 6.6 g/dL (6.5-8.0)
== END 2021-01-17 13:38 | disposition home or self-care (01) ==
LOC: HO.LAB 13:37
PROVIDERS: PCP Internal Medicine; Visit Provider Internal Medicine
DX: I50.22 Chronic systolic (congestive) heart failure (principal); N18.31 Chronic kidney disease, stage 3a; Z79.01 Long term (current) use of anticoagulants
CPT/HCPCS: 36415; 80053; 83880; 85025

== ENCOUNTER → 2021-01-21 13:28 | Outpatient (BNVA) | payer OTHER, SELFPAY | PROVIDERS: PCP Internal Medicine; Visit Provider Internal Medicine | DX: Z95.2 Presence of prosthetic heart valve (principal); Z51.81 Encounter for therapeutic drug level monitoring; Z79.01 Long term (current) use of anticoagulants | CPT/HCPCS: 85610; 99211 ==

== ENCOUNTER → 2021-01-28 13:28 | Outpatient (BNVA) | payer OTHER, SELFPAY | PROVIDERS: PCP Internal Medicine; Visit Provider Internal Medicine | DX: Z95.2 Presence of prosthetic heart valve (principal); Z51.81 Encounter for therapeutic drug level monitoring; Z79.01 Long term (current) use of anticoagulants | CPT/HCPCS: 85610; 99211 ==

== ENCOUNTER → 2021-01-31 13:04 | Outpatient (BNVA) | payer OTHER, SELFPAY | PROVIDERS: PCP Internal Medicine; Visit Provider Internal Medicine | DX: Z95.2 Presence of prosthetic heart valve (principal); Z51.81 Encounter for therapeutic drug level monitoring; Z79.01 Long term (current) use of anticoagulants | CPT/HCPCS: 85610; 99211 ==

== ENCOUNTER → 2021-02-05 13:10 | Outpatient (BNVA) | payer OTHER, SELFPAY | PROVIDERS: PCP Internal Medicine; Visit Provider Internal Medicine | DX: Z95.2 Presence of prosthetic heart valve (principal); Z51.81 Encounter for therapeutic drug level monitoring; Z79.01 Long term (current) use of anticoagulants | CPT/HCPCS: 85610; 99211 ==

== ENCOUNTER 2021-02-11 13:15 | Outpatient (REF) | payer MEDICARE, SELFPAY ==
--- NOTE | ~2021-02-11 | XR_ITS ---
EXAMINATION: XR CHEST CLINICAL INFORMATION: Chronic systolic heart failure COMPARISON: 11/19/2018 TECHNIQUE: 2 views of the chest were obtained. FINDINGS: Right chest wall pacer with lead over the right ventricle. Median sternotomy wires appear intact. Surgical clips overlie the mediastinum. The lungs are well expanded. Prominent appearance of the interstitium. No dense consolidation. No pleural effusion or pneumothorax. The cardiomediastinal silhouette remains enlarged. XR/XR chest 2V IMPRESSION: Enlarged cardiac silhouette. This is similar to prior. Mild interstitial prominence could be associated with fluid overload.
== END 2021-02-11 13:16 | disposition home or self-care (01) ==
LOC: HO.XRAY 13:15
PROVIDERS: Absent Provider Internal Medicine; PCP Internal Medicine; Visit Provider Internal Medicine
DX: I50.22 Chronic systolic (congestive) heart failure (principal); Z95.0 Presence of cardiac pacemaker
CPT/HCPCS: 71046; 85610; 99211

== ENCOUNTER 2021-02-19 07:32 | Outpatient (REF) | payer MEDICARE, SELFPAY ==
[2021-02-19 09:09] LABS: B Type Natriuretic Peptide 484 pg/mL (<100)
[2021-02-19 09:10] LABS: Alanine Aminotransferase 21 U/L (0-31); Albumin Level 3.4 g/dL (3.5-5.0); Alkaline Phosphatase 129 U/L (39-117); Anion Gap 14 (12-20); Aspartate Amino Transferase 24 U/L (5-31); Basophils Percent Auto 0.5 % (0-2); Bilirubin Total 0.9 mg/dL (0.0-1.0); Blood Urea Nitrogen 59 mg/dL (9-16); Calcium 8.4 mg/dL (8.4-10.2); Carbon Dioxide 23 mmol/L (22-29); Chloride 105 mmol/L (96-108); Cholesterol 121 mg/dL; Eosinophils Absolute Auto 0.2 X10*3/uL (0.0-0.4); Eosinophils Percent Auto 2.3 % (0-4); Estimated Glomerular Filt Rate 17; Glucose Random 84 mg/dL (60-115); HDL Cholesterol 57 mg/dL; Hematocrit 34.2 % (37-47); Hemoglobin 10.3 g/dl (12.0-16.0); Imm Gran Abs Auto 0.01 X10*3/uL (0.00-0.03); Imm Gran Pct Auto 0.2 % (0.0-0.4); LDL Cholesterol Calculated 54 mg/dl; Lymphocytes Absolute Auto 0.7 X10*3/uL (1.2-4.9); Lymphocytes Percent Auto 10.6 % (20-40); MANUAL DIFF FLAG SCAN; Mean Corpuscular HGB Conc 30.1 g/dl (31.0-35.0); Mean Corpuscular Hemoglobin 26.8 pg (27.0-33.0); Mean Corpuscular Volume 88.8 fL (80-98); Mean Platelet Volume 11.5 fL (9.4-12.3); Monocytes Absolute Auto 0.6 X10*3/uL (0.1-1.2); Monocytes Percent Auto 9.3 % (2-11); Neutrophils Absolute Auto 5.1 X10*3/uL (2.0-8.3); Neutrophils Percent Auto 77.1 % (45-73); Platelet Count 159 X10*3/uL (160-400); Potassium 4.3 mmol/L (3.3-5.1); Red Blood Count 3.85 X10*6/uL (4.20-5.50); Red Cell Distribution Width 18.7 % (11.0-16.0); SCAN SMEAR FLAG 1; Sodium 138 mmol/L (135-145); Total Protein 6.8 g/dL (6.5-8.0); Triglycerides 53 mg/dL; White Blood Count 6.5 X10*3/uL (4.8-10.8)
[2021-02-19 09:12] LABS: Glucose Urine UA NEG (NEG); Leukocyte Esterase Urine NEG (NEG); Nitrite Urine NEG (NEG); PH 6.5 (5.0-8.0); Specific Gravity - Urine 1.015 (1.005-1.025); Urine Blood TRACE (NEG); Urine Ketones NEG (NEG); Urine Protein 2+ MG/DL (NEG-TRACE)
[2021-02-19 09:15] LABS: Appearance Urine CLEAR; Color Urine STRAW
[2021-02-19 09:26] LABS: Free T4 (Free Thyroxine) 1.34 ng/dL (0.71-1.85); Thyroid Stimulating Hormone 2.92 uIU/mL (0.32-4.0); Vitamin D 25-OH Total 23.7 ng/mL (>30)
[2021-02-19 09:32] LABS: RBC Urine 0-2 /HPF (0); WBC Urine 0 /HPF (0-4)
[2021-02-19 09:44] LABS: SLIDE REVIEW VERIFIED
[2021-02-19 09:58] LABS: Folate 15.8 ng/mL (> or = 4.0); Vitamin B12 763 pg/mL (200-900)
[2021-02-19 11:36] LABS: Ferritin 252 ng/mL (10-250)
== END 2021-02-19 07:33 | disposition home or self-care (01) ==
LOC: HO.LAB 07:32
PROVIDERS: Internal Medicine Medical Oncology; PCP Internal Medicine; Visit Provider Internal Medicine
DX: E78.00 Pure hypercholesterolemia, unspecified (principal); N18.4 Chronic kidney disease, stage 4 (severe); I50.22 Chronic systolic (congestive) heart failure; Z95.2 Presence of prosthetic heart valve; Z51.81 Encounter for therapeutic drug level monitoring; Z79.01 Long term (current) use of anticoagulants
CPT/HCPCS: 36415; 80053; 80061; 81001; 82306; 82607; 82728; 82746; 83880; 84439; 84443; 85025; 85610; 99211

== ENCOUNTER → 2021-02-26 14:25 | Outpatient (BNVA) | payer MEDICARE, SELFPAY | PROVIDERS: PCP Internal Medicine; Visit Provider Internal Medicine | DX: Z95.2 Presence of prosthetic heart valve (principal); Z79.01 Long term (current) use of anticoagulants; Z51.81 Encounter for therapeutic drug level monitoring | CPT/HCPCS: 85610; 99211 ==

== ENCOUNTER → 2021-03-04 13:13 | Outpatient (BNVA) | payer MEDICARE, SELFPAY | PROVIDERS: PCP Internal Medicine; Visit Provider Internal Medicine | DX: Z95.2 Presence of prosthetic heart valve (principal); Z51.81 Encounter for therapeutic drug level monitoring; Z79.01 Long term (current) use of anticoagulants | CPT/HCPCS: 85610; 99211 ==

== ENCOUNTER 2021-03-18 12:43 | Outpatient (REF) | payer MEDICARE, SELFPAY ==
[2021-03-18 13:15] LABS: Basophils Percent Auto 0.3 % (0-2); Eosinophils Absolute Auto 0.1 X10*3/uL (0.0-0.4); Eosinophils Percent Auto 1.6 % (0-4); Hematocrit 35.9 % (37-47); Hemoglobin 10.8 g/dl (12.0-16.0); Imm Gran Abs Auto 0.03 X10*3/uL (0.00-0.03); Imm Gran Pct Auto 0.4 % (0.0-0.4); Lymphocytes Absolute Auto 0.5 X10*3/uL (1.2-4.9); Lymphocytes Percent Auto 7.7 % (20-40); MANUAL DIFF FLAG SCAN; Mean Corpuscular HGB Conc 30.1 g/dl (31.0-35.0); Mean Corpuscular Hemoglobin 26.9 pg (27.0-33.0); Mean Corpuscular Volume 89.3 fL (80-98); Mean Platelet Volume 10.9 fL (9.4-12.3); Monocytes Absolute Auto 0.6 X10*3/uL (0.1-1.2); Monocytes Percent Auto 8.4 % (2-11); Neutrophils Absolute Auto 5.5 X10*3/uL (2.0-8.3); Neutrophils Percent Auto 81.6 % (45-73); Platelet Count 144 X10*3/uL (160-400); Red Blood Count 4.02 X10*6/uL (4.20-5.50); Red Cell Distribution Width 18.7 % (11.0-16.0); SCAN SMEAR FLAG 1; White Blood Count 6.8 X10*3/uL (4.8-10.8)
[2021-03-18 13:37] LABS: Alanine Aminotransferase 26 U/L (0-31); Albumin Level 3.5 g/dL (3.5-5.0); Alkaline Phosphatase 118 U/L (39-117); Anion Gap 14 (12-20); Aspartate Amino Transferase 26 U/L (5-31); Bilirubin Total 0.8 mg/dL (0.0-1.0); Blood Urea Nitrogen 52 mg/dL (9-16); Calcium 9.1 mg/dL (8.4-10.2); Carbon Dioxide 23 mmol/L (22-29); Chloride 106 mmol/L (96-108); Estimated Glomerular Filt Rate 18; Glucose Random 97 mg/dL (60-115); Potassium 4.8 mmol/L (3.3-5.1); Sodium 138 mmol/L (135-145); Total Protein 6.8 g/dL (6.5-8.0)
[2021-03-18 13:51] LABS: SLIDE REVIEW VERIFIED
[2021-03-18 14:11] LABS: Glucose Urine UA NEG (NEG); Leukocyte Esterase Urine NEG (NEG); Nitrite Urine NEG (NEG); Urine Blood TRACE (NEG); Urine Ketones NEG (NEG); Urine Protein 3+ MG/DL (NEG-TRACE)
[2021-03-18 14:22] LABS: Appearance Urine CLEAR; Color Urine YELLOW
[2021-03-18 14:39] LABS: Bacteria Urine 1+ /LPF; Squamous Epithelial Cell Urine 1+ /LPF
== END 2021-03-18 12:44 | disposition home or self-care (01) ==
LOC: HO.LAB 12:43
PROVIDERS: Internal Medicine Medical Oncology; PCP Internal Medicine; Visit Provider Internal Medicine
DX: Z95.2 Presence of prosthetic heart valve (principal); N18.4 Chronic kidney disease, stage 4 (severe); Z51.81 Encounter for therapeutic drug level monitoring; Z79.01 Long term (current) use of anticoagulants
CPT/HCPCS: 36415; 80053; 81001; 85025; 85610; 99211

== ENCOUNTER → 2021-03-25 13:24 | Outpatient (BNVA) | payer MEDICARE, SELFPAY | PROVIDERS: PCP Internal Medicine; Visit Provider Internal Medicine | DX: Z95.2 Presence of prosthetic heart valve (principal); Z51.81 Encounter for therapeutic drug level monitoring; Z79.01 Long term (current) use of anticoagulants | CPT/HCPCS: 85610; 99211 ==

== ENCOUNTER 2021-03-29 09:12 | Outpatient (REF) | payer MEDICARE, SELFPAY ==
--- NOTE | ~2021-03-29 | US_ITS ---
EXAMINATION: US ABDOMEN COMPLETE CLINICAL INFORMATION: Right upper quadrant pain. COMPARISON: CT abdomen and pelvis without contrast dated 12/16/2018. Renals only ultrasound dated 10/27/2016 and 03/19/2015. KUB dated 02/29/2016 and 04/13/2013. TECHNIQUE: Real-time imaging of the abdominal viscera. FINDINGS: PANCREAS: Normal. ABDOMINAL AORTA: The proximal, mid, and distal segments are normal in caliber. INFERIOR VENA CAVA: Visualized portions are normal. LIVER: The liver is normal in size. The liver contour is normal. There is diffuse increased hepatic echogenicity. No focal hepatic lesion. There is no intrahepatic biliary duct dilatation seen. GALLBLADDER: Normal. The gallbladder is physiologically distended without evidence of stones, sludge, polyps, wall thickening or pericholecystic fluid. COMMON BILE DUCT: Normal in caliber measuring 0.14 cm in diameter. RIGHT KIDNEY: There is an anechoic cyst in lower pole measuring 2.7 x 2.0 x 2.3 cm, appears complex and 3.7 x 2.7 x 3.1 cm, simple cyst. There is mild fullness noted. There are multiple punctate non shadowing echogenic calcifications likely vascular. No hydronephrosis or renal calculi. The kidney measures 13.9 cm in maximum dimension. LEFT KIDNEY: There is an anechoic cyst in the lower pole measuring 0.36 x 0.37 x 0.52 cm. Minimal fullness seen in the left kidney pelvis. There are multiple punctate non shadowing echogenic calcifications likely vascular. No hydronephrosis or renal calculi. The kidney measures 9.9 cm in maximum dimension. SPLEEN: Normal. The spleen measures 9.8 cm in maximum dimension. FREE FLUID: None. US/US abdomen complete IMPRESSION: Multiple bilateral punctate non shadowing renal calcifications. Bilateral renal cysts. Minimal fullness left kidney pelvis. Hepatic echogenicity. No focal lesion seen.
== END 2021-03-29 09:13 | disposition home or self-care (01) ==
LOC: HO.HMGCX 09:12
PROVIDERS: PCP Internal Medicine; Visit Provider Internal Medicine
DX: R10.11 Right upper quadrant pain (principal)
CPT/HCPCS: 76700

== ENCOUNTER 2021-03-30 09:59 | Observation (INO) | payer MEDICARE, SELFPAY ==
[2021-03-30] VITALS (9 sets, daily range): BP systolic 98–119; BP diastolic 53–65; PULSE 66–91; RESP 12–18; TEMP 36.2–37.2; O2SAT 96–100; BMI 21.1
--- NOTE | ~2021-03-30 | CT_ITS ---
EXAMINATION: CT HEAD WITHOUT CONTRAST CLINICAL INFORMATION: Hypotension. Dizziness. Intracranial hemorrhage. COMPARISON: None available. TECHNIQUE: Contiguous axial imaging was performed from the skull base to vertex without intravenous administration of contrast. This CT examination was performed using dose optimization techniques as appropriate, variously including the following: *Automated exposure control. *Adjustment of mA and/or kV according to patient size (this includes techniques or standardized protocols for targeted exams where dose is matched to indication/reason for exam; i.e. extremities or head). *Use of iterative reconstruction technique. DLP: 687 mGy-cm FINDINGS: There is no evidence of acute intracranial hemorrhage or edematous territorial infarction. A few foci of hypoattenuation in the periventricular and deep white matter are consistent with mild microangiopathy. Hopkins-white matter differentiation is preserved. The ventricles are normal in size and configuration. No evidence for obstructive hydrocephalus. No abnormal mass effect or midline shift. No extra-axial fluid collections. No acute osseous abnormalities. There is a 0.9 cm nodule in the superficial lobe of the right parotid gland. Mild mucosal thickening of the paranasal sinuses. Leftward nasal septal deviation. There is a 1.7 cm hyperattenuating structure within the inferior right nasal passage with partial calcification. The mastoid air cells and middle ear cavities are clear. Left globe prosthesis. CT/CT head/brain wo con IMPRESSION: 1. No evidence of acute intracranial hemorrhage or edematous territorial infarction. 2. Mild underlying microangiopathy. 3. There is a 1.7 cm hyperattenuating structure within the inferior right nasal passage. This finding is nonspecific, potentially representing a chronically inspissated mucous polyp. A foreign body can also have this appearance. Recommend correlation with direct visualization.
--- NOTE | ~2021-03-30 | XR_ITS ---
EXAMINATION: XR CHEST CLINICAL INFORMATION: Dizziness with low blood pressure COMPARISON: February 11, 2021 TECHNIQUE: 2 views of the chest were obtained. FINDINGS: The cardiopericardial silhouette is markedly enlarged. No evidence of airspace edema. Pacemaker/defibrillator in place. Patient status post median sternotomy and CABG. No pneumothorax or pleural effusion. There is mild elevation of the left hemidiaphragm. XR/XR chest 2V IMPRESSION: Marked enlargement of the cardiopericardial silhouette without definite acute parenchymal disease identified.
--- NOTE | 2021-03-30 11:04 | ED.WEAKNESS ---
HPI - Weakness General Chief complaint: Dizziness Stated complaint: dehydration Time Seen by Provider: 03/30/21 11:00 Source: patient Mode of arrival: ambulatory Limitations: no limitations History of Present Illness HPI Narrative: 70-year-old female with a history of hypothyroidism, amyloidosis under hematology oncology, anxiety and depression, hypercholesterolemia, chronic kidney disease, history of mitral valve replacement, ICD implant, atrial fibrillation on coumadin, ischemic cardiomyopathy, congestive heart failure, history of breast cancer coming in for complaints of episode of low blood pressure. Patient tells me that she checked her blood pressure every morning and when she took this morning she was noted to have a blood pressure of 74 systolic. She had some associated dizziness while at rest but now is feeling improved. Denies any recent changes in her medications. Has been drinking 3-4 glasses a day because she has been told she should limit her p.o. intake. She does have some upper abdominal pain with occasional nausea which she had an outpatient ultrasound for yesterday. No vomiting, diarrhea, fevers, chills, urinary symptoms, chest pain, shortness of breath, headache. Related Data Home Medications Medication Instructions Recorded Confirmed acetaminophen 325 mg capsule 325 mg PO QID PRN 08/06/20 03/26/21 vit C 250 mg-vit E 90 mg-zinc 40 1 tab PO BID 08/06/20 03/26/21 mg-copper 1 bb-oqeqdx-antsff capsule ferrous sulfate 324 mg (65 mg 324 mg PO BID 11/05/20 03/26/21 iron) tablet,delayed release fjesrofi-jiv-XW 200 mcg-vit K 15 1 tab PO DAILY 12/19/20 03/26/21 mcg-lycope 150 hpe-yabhxm-kzoh tablet warfarin 5 mg tablet 5 mg PO DAILY 12/19/20 03/26/21 furosemide 40 mg tablet 40 mg PO DAILY tab 01/01/21 03/26/21 CALCIUM 750 MG VIT D3 See Rx Instructions .ROUTE .COMPLEX 01/21/21 03/26/21 sennosides 8.6 mg tablet 17.2 mg PO BEDTIME PRN 02/05/21 03/26/21 vitamins A,C,Q-qdmx-dyeclb 14,320 1 cap PO BID 03/18/21 03/26/21 unit-226 mg-200 unit capsule Previous Rx's Medication Instructions Recorded arm brace #1 ea 08/21/20 warfarin 2.5 mg tablet See Rx Instructions .ROUTE 08/21/20 .COMPLEX #90 tab potassium chloride 20 mEq 20 meq PO DAILY #90 tab 08/28/20 tablet,extended release(part/cryst) carvedilol 25 mg tablet 25 mg PO BID 90 Days #180 tab 09/05/20 aspirin 81 mg tablet,delayed 81 mg PO DAILY #90 tab 09/17/20 release diclofenac sodium 1 % topical gel 4 g TOPICAL TID #400 g 10/23/20 levothyroxine 137 mcg tablet 137 mcg PO QAM #90 tab 11/07/20 rosuvastatin 10 mg tablet 10 mg PO DAILY 90 Days #90 tab 11/12/20 hydralazine 10 mg tablet 10 mg PO BID #180 tab 11/14/20 zinc oxide 10 %-white petrolatum 1 appl TOPICAL BID #99 g 11/14/20 78 % topical cream trazodone 50 mg tablet 50 mg PO DAILY PRN 28 Days #14 tab 11/26/20 ascorbic acid (vitamin C) 500 mg PO BID #60 cap 01/03/21 isosorbide dinitrate 5 mg tablet 5 mg PO BID #180 tab 02/28/21 colchicine 0.6 mg capsule 0.6 mg PO DAILY PRN #90 cap 03/26/21 fluoxetine 10 mg capsule 10 mg PO DAILY #30 cap 03/26/21 Allergies Allergy/AdvReac Type Severity Reaction Status Date / Time NKDA Allergy Unknown NO KNOWN Uncoded 01/21/21 15:04 DRUG ALLERGIES - JUST PAPER TAPE TAPE,PAPER Allergy Unknown RASH TO Uncoded 01/21/21 15:04 PAPER TAPE Review of Systems Review of Systems: Yes all other systems are reviewed and are negative Constitutional: Constitutional: Reports no additional constitutional complaints, Denies body ache(s), Denies chills, Denies fever(s), Denies headache(s) and Denies weakness Eyes: Eyes: Reports no additional eye complaints and Denies change in vision ENT: Reports system reviewed and no additional complaints, except as documented, Reports dizziness, Denies headache(s), Denies nasal congestion, Denies nasal discharge and Denies neck pain Cardiovascular: Cardiovascular: Reports no additional cardiovascular complaints, Denies chest pain, Denies leg edema and Denies dyspnea Respiratory: Respiratory: Reports no additional respiratory complaints, Denies cough and Denies dyspnea Gastrointestinal: Gastrointestinal: Reports no additional gastrointestinal complaints, Denies abdominal pain, Denies diarrhea, Denies nausea and Denies vomiting Genitourinary: Genitourinary: Reports no additional female genitourinary complaints and Denies urinary incontinence Musculoskeletal: Musculoskeletal: Reports no additional musculoskeletal complaints, Denies back pain, Denies arthralgias, Denies joint swelling, Denies neck pain, Denies numbness and Denies tingling Integumentary/Breasts: Skin/Breast: Reports system reviewed and no additional complaints, except as docu and Denies rash Neurologic: Reports system reviewed and no additional complaints, except as documented, Denies Abnormal speech present, Reports dizziness, Denies headache(s), Denies numbness, Denies tingling and Denies weakness PMFSH Past Medical History Attestation statement: The following information was validated with the patient. Source: old records reviewed and nursing notes reviewed Medical History Amyloidosis Anxiety and depression Arthritis Bladder hypertonicity Chronic atrial fibrillation Chronic HFrEF (heart failure with reduced ejection fraction) Chronic kidney disease (CKD) stage G4/A1, severely decreased glomerular filtration rate (GFR) between 15-29 mL/min/1.73 square meter and albuminuria creatinine ratio less than 30 mg/g Detached retina Gout Heart disease History of breast cancer HTN (hypertension) Hypercholesterolemia Hypothyroid ICD (implantable cardioverter-defibrillator) in place Ischemic cardiomyopathy Kidney disease Nephrolithiasis Osteoarthritis Overweight (BMI 25.0-29.9) Pulmonary hypertension Thumb tendonitis Tricuspid regurgitation Urinary incontinence Surgical History H/O abdominal hysterectomy H/O mitral valve replacement H/O mitral valve replacement with mechanical valve History of bunionectomy History of cataract surgery History of colonoscopy History of left inguinal hernia repair History of sleeve gastrectomy Family History Family History Mother Diabetes Father Past heart attack Diabetes Sister Parkinsons disease Social History Social History Alcohol intake: never Smoking Status: Never smoker Second Hand Smoke Exposure: No Advance Directives: No Advance Directives Information Provided: No Current occupational status: disabled Current occupation: left handed Physical Exam Vital Signs: Vital Signs: Last Vital Signs Temp 98.9 F 03/30/21 11:00 Pulse 78 03/30/21 12:35 Resp 14 03/30/21 12:00 BP 117/65 03/30/21 12:35 Pulse Ox 98 03/30/21 12:00 Body Mass Index 21.1 Const: General: cooperative, healthy appearing, comfortable and no acute distress Orientation/consciousness: patient oriented x3 Limitations: no limitations HENMT: Head: Yes normal to inspection Ears: hearing grossly normal bilaterally General nose exam: Normal external nose present Face and sinus: Yes normal facial exam Mouth: Normal oral and palatal mucosa present Throat: Yes posterior oropharynx normal Eyes: General: appearance normal, both eyes and all related structures Pupils: Equal, round and reactive pupils present Neck: Neck: Yes normal visual inspection Chest: Chest palpation & inspection: normal inspection of the chest Resp: Effort & Inspection: normal respiratory effort Auscultation: clear to auscultation bilaterally Cardio: Rate: regular rate Rhythm: regular rhythm Peripheral pulses: Peripheral pulses 2+ throughout GI: Inspection: Yes normal to inspection Palpation (GI): Soft to palpation and nontender Auscultation: normal bowel sounds Back/Spine/Pelvis: Thoracic/Lumbar Spine: thoracic and lumbar spine normal to inspection Skin: General skin exam: no rashes or lesions noted Neuro: General: patient oriented x3, no focal motor deficits and normal sensation to monofilament Cranial nerves: Yes CN's II-XII intact bilaterally, Yes Equal, round and reactive pupils present, Yes Bilaterally intact EOM present, Yes Nystagmus not present, Yes Normal facial strength present and Yes Midline tongue present Cognition (Neuro): normal cognition Speech: No Abnormal speech present Motor exam (neuro): 5/5 motor strength present throughout Sensory Exam: Normal double simultaneous stimulation for sensation Coordination: hogqht-hr-gczc test normal and afni-uc-hihf test normal Extrem: General: Yes normal to inspection, Yes no calf tenderness and Yes edema (Mild lower extremity swelling 1+ nonpitting) Course Course Course Narrative: 70-year-old female here with episode of hypotension at home with associated dizziness. All symptoms resolved now. Blood pressure is improved. No changes in her medication. Does only drinks 3-4 glasses a day. Blood pressure improved on arrival. No other complaints. Hemodynamically stable. Neuro intact. Will check labs, UA, CXR, EKG, orthostatics, CT head. 1230-EKG shows AFib with poor R-wave progression but no ST elevation. Elevated troponin. No chest pain. Blood pressure improved. Will repeat EKG. Repeat 3 hour troponin. Acute on CKD. 1530-Repeat troponin delta. Likely secondary to worsening creatinine or known ischemic cardiomyopathy. Discussed with Dr. Estrella who does not feel like this is ACS as the patient has a delta troponin with no EKG changes or reports of chest pain. She does have a worsened renal function and so she was given 500 cc of normal saline. Negative orthostatics. Discussed with Jocelyne HOPSON who accepted admission for observation. MDM - Weakness MDM Narrative Medical decision making narrative: Anemia, electrolyte abnormality, orthostatic hypotension, ACS, ICH versus lesion, underlying infection(PNA, UTI), Medical Records Attestation: I reviewed the patient's medical records. Lab Data Attestation: I reviewed the patient's lab results. Result diagrams: 03/30/21 11:32 03/30/21 11:32 Labs: Lab Results 03/30/21 03/30/21 03/30/21 Range/Units 11:32 11:32 11:32 WBC 7.4 (4.8-10.8) X10*3/uL RBC 3.90 L (4.20-5.50) X10*6/uL Hgb 10.5 L (12.0-16.0) g/dl Hct 34.7 L (37-47) % MCV 89.0 (80-98) fL MCH 26.9 L (27.0-33.0) pg MCHC 30.3 L (31.0-35.0) g/dl RDW 18.4 H (11.0-16.0) % Plt Count 146 L (160-400) X10*3/uL MPV 10.9 (9.4-12.3) fL Immature Gran % (Auto) 0.1 (0.0-0.4) % Neut % (Auto) 81.8 H (45-73) % Lymph % (Auto) 8.5 L (20-40) % [place] % (Auto) 8.4 (2-11) % Eos % (Auto) 0.9 (0-4) % Baso % (Auto) 0.3 (0-2) % Lymph # (Auto) 0.6 L (1.2-4.9) X10*3/uL [place] # (Auto) 0.6 (0.1-1.2) X10*3/uL Eos # (Auto) 0.1 (0.0-0.4) X10*3/uL Baso # (Auto) 0.0 (0.0-0.2) X10*3/uL Abs Immat Gran (auto) 0.01 (0.00-0.03) X10*3/uL Absolute Neuts (auto) 6.0 (2.0-8.3) X10*3/uL Absolute Nucleated RBC 0.000 (0.0-0.012) X10*3/uL Nucleated RBC % (auto) 0.0 (0.0-0.2) /100WBC Smear Tech's Comments VERIFIED PT 46.3 H (10.8-13.0) SEC INR 3.8 H (0.9-1.1) Sodium 137 (135-145) mmol/L Potassium 4.0 (3.3-5.1) mmol/L Chloride 100 (96-108) mmol/L Carbon Dioxide 26 (22-29) mmol/L Anion Gap 15 (12-20) BUN 67 H (9-16) mg/dL Creatinine 3.23 H (0.5-1.4) mg/dL Estim Creat Clear Calc 16.8 Estimated GFR 14 Random Glucose 104 (60-115) mg/dL Lactic Acid (0.5-2.0) mmol/L Calcium 8.6 (8.4-10.2) mg/dL Magnesium 2.6 (1.6-2.6) mg/dL Total Bilirubin 0.6 (0.0-1.0) mg/dL Direct Bilirubin 0.3 (0.0-0.5) mg/dL AST 24 (5-31) U/L ALT 26 (0-31) U/L Alkaline Phosphatase 140 H (39-117) U/L Troponin I High Sens (<3.5-17.0) ng/L B-Natriuretic Peptide (<100) pg/mL Total Protein 6.8 (6.5-8.0) g/dL Albumin 3.4 L (3.5-5.0) g/dL Urine Color Urine Appearance Urine pH (5.0-8.0) Ur Specific [place] (1.005-1.025) Urine Protein (NEG-TRACE) MG/DL Urine Glucose (UA) (NEG) MG/DL Urine Ketones (NEG) MG/DL Urine Blood (NEG) Urine Nitrite (NEG) Ur Leukocyte Esterase (NEG) Urine RBC (0) /HPF Urine WBC (0-4) /HPF Ur Squamous Epith Cells /LPF Urine Bacteria /LPF Urine Mucus /LPF 03/30/21 03/30/21 03/30/21 Range/Units 11:32 11:32 13:56 WBC (4.8-10.8) X10*3/uL RBC (4.20-5.50) X10*6/uL Hgb (12.0-16.0) g/dl Hct (37-47) % MCV (80-98) fL MCH (27.0-33.0) pg MCHC (31.0-35.0) g/dl RDW (11.0-16.0) % Plt Count (160-400) X10*3/uL MPV (9.4-12.3) fL Immature Gran % (Auto) (0.0-0.4) % Neut % (Auto) (45-73) % Lymph % (Auto) (20-40) % [place] % (Auto) (2-11) % Eos % (Auto) (0-4) % Baso % (Auto) (0-2) % Lymph # (Auto) (1.2-4.9) X10*3/uL [place] # (Auto) (0.1-1.2) X10*3/uL Eos # (Auto) (0.0-0.4) X10*3/uL Baso # (Auto) (0.0-0.2) X10*3/uL Abs Immat Gran (auto) (0.00-0.03) X10*3/uL Absolute Neuts (auto) (2.0-8.3) X10*3/uL Absolute Nucleated RBC (0.0-0.012) X10*3/uL Nucleated RBC % (auto) (0.0-0.2) /100WBC Smear Tech's Comments PT (10.8-13.0) SEC INR (0.9-1.1) Sodium (135-145) mmol/L Potassium (3.3-5.1) mmol/L Chloride (96-108) mmol/L Carbon Dioxide (22-29) mmol/L Anion Gap (12-20) BUN (9-16) mg/dL Creatinine (0.5-1.4) mg/dL Estim Creat Clear Calc Estimated GFR Random Glucose (60-115) mg/dL Lactic Acid 0.5 (0.5-2.0) mmol/L Calcium (8.4-10.2) mg/dL Magnesium (1.6-2.6) mg/dL Total Bilirubin (0.0-1.0) mg/dL Direct Bilirubin (0.0-0.5) mg/dL AST (5-31) U/L ALT (0-31) U/L Alkaline Phosphatase (39-117) U/L Troponin I High Sens 699.2 H* (<3.5-17.0) ng/L B-Natriuretic Peptide 391 H (<100) pg/mL Total Protein (6.5-8.0) g/dL Albumin (3.5-5.0) g/dL Urine Color YELLOW Urine Appearance CLEAR Urine pH 6.0 (5.0-8.0) Ur Specific [place] 1.010 (1.005-1.025) Urine Protein 3+ H (NEG-TRACE) MG/DL Urine Glucose (UA) NEG (NEG) MG/DL Urine Ketones NEG (NEG) MG/DL Urine Blood TRACE (NEG) Urine Nitrite NEG (NEG) Ur Leukocyte Esterase 1+ H (NEG) Urine RBC 0 (0) /HPF Urine WBC 10-14 H (0-4) /HPF Ur Squamous Epith Cells 1+ /LPF Urine Bacteria TRACE /LPF Urine Mucus 1+ /LPF 03/30/21 Range/Units 14:50 WBC (4.8-10.8) X10*3/uL RBC (4.20-5.50) X10*6/uL Hgb (12.0-16.0) g/dl Hct (37-47) % MCV (80-98) fL MCH (27.0-33.0) pg MCHC (31.0-35.0) g/dl RDW (11.0-16.0) % Plt Count (160-400) X10*3/uL MPV (9.4-12.3) fL Immature Gran % (Auto) (0.0-0.4) % Neut % (Auto) (45-73) % Lymph % (Auto) (20-40) % [place] % (Auto) (2-11) % Eos % (Auto) (0-4) % Baso % (Auto) (0-2) % Lymph # (Auto) (1.2-4.9) X10*3/uL [place] # (Auto) (0.1-1.2) X10*3/uL Eos # (Auto) (0.0-0.4) X10*3/uL Baso # (Auto) (0.0-0.2) X10*3/uL Abs Immat Gran (auto) (0.00-0.03) X10*3/uL Absolute Neuts (auto) (2.0-8.3) X10*3/uL Absolute Nucleated RBC (0.0-0.012) X10*3/uL Nucleated RBC % (auto) (0.0-0.2) /100WBC Smear Tech's Comments PT (10.8-13.0) SEC INR (0.9-1.1) Sodium (135-145) mmol/L Potassium (3.3-5.1) mmol/L Chloride (96-108) mmol/L Carbon Dioxide (22-29) mmol/L Anion Gap (12-20) BUN (9-16) mg/dL Creatinine (0.5-1.4) mg/dL Estim Creat Clear Calc Estimated GFR Random Glucose (60-115) mg/dL Lactic Acid (0.5-2.0) mmol/L Calcium (8.4-10.2) mg/dL Magnesium (1.6-2.6) mg/dL Total Bilirubin (0.0-1.0) mg/dL Direct Bilirubin (0.0-0.5) mg/dL AST (5-31) U/L ALT (0-31) U/L Alkaline Phosphatase (39-117) U/L Troponin I High Sens 745.7 H* (<3.5-17.0) ng/L B-Natriuretic Peptide (<100) pg/mL Total Protein (6.5-8.0) g/dL Albumin (3.5-5.0) g/dL Urine Color Urine Appearance Urine pH (5.0-8.0) Ur Specific [place] (1.005-1.025) Urine Protein (NEG-TRACE) MG/DL Urine Glucose (UA) (NEG) MG/DL Urine Ketones (NEG) MG/DL Urine Blood (NEG) Urine Nitrite (NEG) Ur Leukocyte Esterase (NEG) Urine RBC (0) /HPF Urine WBC (0-4) /HPF Ur Squamous Epith Cells /LPF Urine Bacteria /LPF Urine Mucus /LPF Imaging Data Chest x-ray: Attestation: I personally reviewed and interpreted this imaging study as follows: Radiologist's impression: [address] [id number] ReportSigned Patient: America Dooley EMR#: [id number]: [id number]:[id number]/Sex: 70 / FADM Date: 03/30/21Loc: HO.EDAttending Dr: Ordering Physician: WENDY BRAN NP Date of Service: 03/30/21 Procedure(s): XR chest 2V Accession Number(s): [id number] cc: WENDY BRAN NP~ EXAMINATION: XR CHEST CLINICAL INFORMATION: Dizziness with low blood pressure COMPARISON: February 11, 2021 TECHNIQUE: 2 views of the chest were obtained. FINDINGS: The cardiopericardial silhouette is markedly enlarged. No evidence of airspace edema. Pacemaker/defibrillator in place. Patient status post median sternotomy and CABG. No pneumothorax or pleural effusion. There is mild elevation of the left hemidiaphragm. XR/XR chest 2V IMPRESSION: Marked enlargement of the cardiopericardial silhouette without definite acute parenchymal disease identified. CT scan - head: Attestation: I personally reviewed and interpreted this imaging study as follows: Radiologist's impression: IMPRESSION: 1. No evidence of acute intracranial hemorrhage or edematous territorial infarction. 2. Mild underlying microangiopathy. 3. There is a 1.7 cm hyperattenuating structure within the inferior right nasal passage. This finding is nonspecific, potentially representing a chronically inspissated mucous polyp. A foreign body can also have this appearance. Recommend correlation with direct visualization. ECG Data Attestation: I personally reviewed and interpreted this ECG as follows: ECG interpretation date: 03/30/21 ECG interpretation time: 11:26 Interpretation: AFib with PVCs, poor R-wave progression, normal QRS, QTC 503 Repeat 1231-no changes from previous Discharge Plan Discharge Clinical Impression: Acute on chronic kidney failure, Hypotension Patient Disposition: Admitted As Inpatient Prescriptions: No Action potassium chloride [Klor-Con M20] 20 mEq tablet,ER particles/crystals 20 meq PO DAILY Qty: 90 RF: 5 carvedilol [Coreg] 25 mg tablet 25 mg PO BID 90 Days Qty: 180 RF: 3 aspirin 81 mg tablet,delayed release (DR/EC) 81 mg PO DAILY Qty: 90 RF: 3 diclofenac sodium 1 % gel 4 g topical TID Qty: 400 RF: 11 levothyroxine 137 mcg tablet 137 mcg PO QAM Qty: 90 RF: 3 rosuvastatin [Crestor] 10 mg tablet 10 mg PO DAILY 90 Days Qty: 90 RF: 1 hydralazine 10 mg tablet 10 mg PO BID Qty: 180 RF: 3 [place] Moist Barrier-Zinc 10-78 % cream 1 appl topical BID Qty: 99 RF: 3 trazodone 50 mg tablet 50 mg PO DAILY PRN (Reason: insomnia) 28 Days Qty: 14 RF: 5 isosorbide dinitrate 5 mg tablet 5 mg PO BID Qty: 180 RF: 3 colchicine 0.6 mg capsule 0.6 mg PO DAILY PRN (Reason: Pain, Severe) Qty: 90 RF: 1 fluoxetine 10 mg capsule 10 mg PO DAILY Qty: 30 RF: 1 PreserVision AREDS-2 [id number] sc-xcxp-yi-mg capsule 1 tab PO BID RF: 0 acetaminophen [Tylenol] 325 mg capsule 325 mg PO QID PRN (Reason: Pain) RF: 0 warfarin 2.5 mg tablet See Rx Instructions mg .ROUTE .COMPLEX Qty: 90 RF: 2 CALCIUM 750 MG VIT D3 See Rx Instructions .ROUTE .COMPLEX RF: 0 PreserVision AREDS [id number] fdww-[id number]-fpbf capsule 1 cap PO BID RF: 0 (DME) Wrist Brace Misc See Rx Instructions .MEDSUPPLY Qty: 1 RF: 0 ferrous sulfate 324 mg (65 mg iron) tablet,delayed release (DR/EC) 324 mg PO BID RF: 0 ascorbic acid (vitamin C) 500 mg capsule, extended release 500 mg PO BID Qty: 60 RF: 5 furosemide 40 mg tablet 40 mg PO DAILY RF: 0 Ocuvite Eye Plus Multi 200-15-150 mcg tablet 1 tab PO DAILY RF: 0 warfarin 5 mg tablet 5 mg PO DAILY RF: 0 Hold Instructions: USING 2.5MG TAB sennosides 8.6 mg tablet 17.2 mg PO BEDTIME PRN (Reason: Constipation) RF: 0
--- NOTE | 2021-03-30 11:12 | ECG_ITS ---
Test Reason : DIZZY Blood Pressure : / mmHG Vent. Rate : 065 BPM Atrial Rate : 065 BPM P-R Int : 000 ms QRS Dur : 098 ms QT Int : 484 ms P-R-T Axes : 000 -18 153 degrees QTc Int : 503 ms Atrial fibrillation with premature ventricular or aberrantly conducted complexes Voltage criteria for left ventricular hypertrophy Cannot rule out Septal infarct (cited on or before 22-JAN-2018) T wave abnormality, consider lateral ischemia Abnormal ECG When compared with ECG of 15-DEC-2018 20:17, Nonspecific T wave abnormality, improved in Inferior leads Referred By: Raquel Grimes Electronically Signed By:KATIA MEAD MD
[2021-03-30 11:40] LABS: Basophils Percent Auto 0.3 % (0-2); Eosinophils Absolute Auto 0.1 X10*3/uL (0.0-0.4); Eosinophils Percent Auto 0.9 % (0-4); Hematocrit 34.7 % (37-47); Hemoglobin 10.5 g/dl (12.0-16.0); Imm Gran Abs Auto 0.01 X10*3/uL (0.00-0.03); Imm Gran Pct Auto 0.1 % (0.0-0.4); Lymphocytes Absolute Auto 0.6 X10*3/uL (1.2-4.9); Lymphocytes Percent Auto 8.5 % (20-40); MANUAL DIFF FLAG SCAN; Mean Corpuscular HGB Conc 30.3 g/dl (31.0-35.0); Mean Corpuscular Hemoglobin 26.9 pg (27.0-33.0); Mean Platelet Volume 10.9 fL (9.4-12.3); Monocytes Absolute Auto 0.6 X10*3/uL (0.1-1.2); Monocytes Percent Auto 8.4 % (2-11); Neutrophils Percent Auto 81.8 % (45-73); Platelet Count 146 X10*3/uL (160-400); Red Cell Distribution Width 18.4 % (11.0-16.0); SCAN SMEAR FLAG 1; White Blood Count 7.4 X10*3/uL (4.8-10.8)
[2021-03-30 11:47] LABS: INTERNATIONAL NORM RATIO 3.8 (0.9-1.1); Prothrombin Time 46.3 SEC (10.8-13.0)
[2021-03-30 12:07] LABS: Lactic Acid 0.5 mmol/L (0.5-2.0)
[2021-03-30 12:22] LABS: SLIDE REVIEW VERIFIED
--- NOTE | 2021-03-30 12:23 | ECG_ITS ---
Test Reason : REPEAT Blood Pressure : / mmHG Vent. Rate : 069 BPM Atrial Rate : 034 BPM P-R Int : 000 ms QRS Dur : 094 ms QT Int : 472 ms P-R-T Axes : 000 -09 174 degrees QTc Int : 505 ms Atrial fibrillation Moderate voltage criteria for LVH, may be normal variant Cannot rule out Septal infarct (cited on or before 22-JAN-2018) T wave abnormality, consider lateral ischemia Abnormal ECG When compared with ECG of 30-MAR-2021 11:26, Nonspecific T wave abnormality, worse in Inferior leads Referred By: Raquel Grimes Electronically Signed By:KATIA MEAD MD
[2021-03-30 12:24] LABS: Troponin-I High Sensitivity 699.2 ng/L (<3.5-17.0)
[2021-03-30 12:26] LABS: Alanine Aminotransferase 26 U/L (0-31); Albumin Level 3.4 g/dL (3.5-5.0); Alkaline Phosphatase 140 U/L (39-117); Anion Gap 15 (12-20); Aspartate Amino Transferase 24 U/L (5-31); Bilirubin Direct 0.3 mg/dL (0.0-0.5); Bilirubin Total 0.6 mg/dL (0.0-1.0); Blood Urea Nitrogen 67 mg/dL (9-16); Calcium 8.6 mg/dL (8.4-10.2); Carbon Dioxide 26 mmol/L (22-29); Chloride 100 mmol/L (96-108); Creatinine Clr Calc Pharmacy 16.8; Estimated Glomerular Filt Rate 14; Glucose Random 104 mg/dL (60-115); Magnesium 2.6 mg/dL (1.6-2.6); Sodium 137 mmol/L (135-145); Total Protein 6.8 g/dL (6.5-8.0)
[2021-03-30 12:53] LABS: B Type Natriuretic Peptide 391 pg/mL (<100)
[2021-03-30 14:01] LABS: Glucose Urine UA NEG (NEG); Leukocyte Esterase Urine 1+ (NEG); Nitrite Urine NEG (NEG); UACC Culture Trigger YES; Urine Blood TRACE (NEG); Urine Ketones NEG (NEG); Urine Protein 3+ MG/DL (NEG-TRACE)
[2021-03-30 14:02] LABS: Appearance Urine CLEAR; Color Urine YELLOW
[2021-03-30 14:08] LABS: Bacteria Urine TRACE /LPF; Mucus Urine 1+ /LPF; RBC Urine 0 /HPF (0); Squamous Epithelial Cell Urine 1+ /LPF
[2021-03-30 15:31] LABS: Troponin-I High Sensitivity 745.7 ng/L (<3.5-17.0)
[2021-03-30] MEDS: 0.9 % Sodium Chloride 500 ML 999 ML IV (16:45)
--- NOTE | 2021-03-30 16:47 | PC.NURSE ---
Pt informed of her admission by Padmaja ORNELAS. IVF inflsing. Pt eating a sandwich ans is calm and cooperative at this time.
--- NOTE | 2021-03-30 18:01 | P.HPHOSP_ITS ---
History of Present Illness Date of Service: 03/30/21 <EMILIANA Gonzales - Last Filed: 03/30/21 18:09> Chief Complaint: Dizziness <EMILIANA Gonzales - Last Filed: 03/30/21 18:09> This is a 70-year-old female with numerous medical problems who presents to the emergency department after an episode of dizziness. Patient was in her usual state of health when she began feeling woozy. She had no other associated symptoms. She denied any chest pain, palpitations, shortness of breath, nausea, vomiting. She took her blood pressure and was in the 70 systolic. She called the ambulance and was brought to the emergency department. While in the emergency department her blood pressure remained in the normal range. She has had no further episodes of dizziness. Her orthostatic blood pressures were checked and were unremarkable. Lab work did reveal ALIZA with serum creatinine 3.23 which is increased from her baseline of 2.6 from March 18. 1 L bolus of normal saline. She denies any recent medication adjustments or new medications. Her appetite has been stable and she denies any vomiting or diarrhea. <EMILIANA Gonzales - Last Filed: 03/30/21 18:09> Review of Systems Review of Systems: Yes all other systems are reviewed and are negative <EMILIANA Gonzales - Last Filed: 03/30/21 18:09> Constitutional: Constitutional: Denies chills and Denies fever(s) <EMILIANA Gonzales - Last Filed: 03/30/21 18:09> Cardiovascular: Cardiovascular: Denies chest pain <EMILIANA Gonzales Last Filed: 03/30/21 18:09> Respiratory: Respiratory: Denies cough <EMILIANA Gonzales Last Filed: 03/30/21 18:09> Gastrointestinal: Gastrointestinal: Denies abdominal pain <EMILIANA Gonzales - Last Filed: 03/30/21 18:09> FORMERLY [facility] Medical History: Medical History Amyloidosis Anxiety and depression Arthritis Bladder hypertonicity Chronic atrial fibrillation Chronic HFrEF (heart failure with reduced ejection fraction) Chronic kidney disease (CKD) stage G4/A1, severely decreased glomerular filtration rate (GFR) between 15-29 mL/min/1.73 square meter and albuminuria creatinine ratio less than 30 mg/g Detached retina Gout Heart disease History of breast cancer HTN (hypertension) Hypercholesterolemia Hypothyroid ICD (implantable cardioverter-defibrillator) in place Ischemic cardiomyopathy Kidney disease Nephrolithiasis Osteoarthritis Overweight (BMI 25.0-29.9) Pulmonary hypertension Thumb tendonitis Tricuspid regurgitation Urinary incontinence <EMILIANA Gonzales - Last Filed: 03/30/21 18:09> Functional capacity: uses cane/walker <EMILIANA Gonzales - Last Filed: 03/30/21 18:09> Family History: Family History Mother Diabetes Father Past heart attack Diabetes Sister Parkinsons disease <EMILIANA Gonzales - Last Filed: 03/30/21 18:09> Surgical History: Surgical History H/O abdominal hysterectomy H/O mitral valve replacement H/O mitral valve replacement with mechanical valve History of bunionectomy History of cataract surgery History of colonoscopy History of left inguinal hernia repair History of sleeve gastrectomy <EMILIANA Gonzales - Last Filed: 03/30/21 18:09> Social History: Social History Household Members: None Housing: Apartment Do you presently have visiting nurse or other home services: No Alcohol intake: never Smoking Status: Never smoker Second Hand Smoke Exposure: No Use of substances other than those prescribed or required for medical reasons: No Currently Displaying Signs/Symptoms of Drug Intoxication Withdrawal: No Have you been hit, kicked, punched, or otherwise hurt by someone within the past year? If so, by whom?: No Do you feel safe in your current relationship?: No Current Relationship Is there a partner from a previous relationship who is making you feel unsafe now?: No Are you made to feel afraid or neglected: No Advance Directives: No Advance Directives Information Provided: No Do you have thoughts of harming others: None Do you have a plan to hurt others: No Plan Recently lost weight without trying: No Nutrition Risks: No Nutritional Risk Patient : No : No Poor oral hygiene: No service: No Current occupational status: disabled Current occupation: left handed <EMILIANA Gonzales - Last Filed: 03/30/21 18:09> Meds Allergies/Adverse reactions: Allergies Allergy/AdvReac Type Severity Reaction Status Date / Time NKDA Allergy Unknown NO KNOWN Uncoded 03/30/21 16:50 DRUG ALLERGIES - JUST PAPER TAPE TAPE,PAPER Allergy Unknown RASH TO Uncoded 03/30/21 16:50 PAPER TAPE <EMILIANA Gonzales - Last Filed: 03/30/21 18:09> Active Medications: Current Medications Generic Name Dose Route Start Last Admin Trade Name Freq PRN Reason Stop Dose Admin Pharmacy Consult 1 each 03/30/21 16:17 Consult Rx Perform Med Rec MISCELLANE ONCE PRN Consult order <EMILIANA Gonzales - Last Filed: 03/30/21 18:09> Home medications: Home Medications Medication Instructions Recorded Confirmed Last Taken Type acetaminophen 325 mg capsule 325 mg PO QID PRN 08/06/20 03/30/21 Unknown History vit C 250 mg-vit E 90 mg-zinc 40 1 tab PO BID 08/06/20 03/30/21 03/30/21 History mg-copper 1 kn-lgfrvw-cyrfdr 09 capsule ferrous sulfate 324 mg (65 mg 324 mg PO BID 11/05/20 03/30/21 03/30/21 History iron) tablet,delayed release 899 fvkbrvyw-dcr-SU 200 mcg-vit K 15 1 tab PO DAILY 12/19/20 03/30/21 03/30/21 History mcg-lycope 150 wrf-ieaxcj-vmtc 0900 tablet warfarin 5 mg tablet 5 mg PO QWEEK 12/19/20 03/30/21 03/24/21 History furosemide 40 mg tablet 40 mg PO DAILY tab 01/01/21 03/30/21 03/30/21 History 09 CALCIUM 750 MG VIT D3 750 mg PO DAILY 01/21/21 03/30/21 01/14/21 09:00 History [id number] sennosides 8.6 mg tablet 17.2 mg PO BEDTIME PRN 02/05/21 03/30/21 03/29/21 History vitamins A,C,W-ulxo-opxecs 14,320 1 cap PO BID 03/18/21 03/30/21 03/30/21 History unit-226 mg-200 unit capsule 0900 <EMILIANA Gonzales - Last Filed: 03/30/21 18:09> Physical Exam Vital Signs and Narrative: Vital Signs: Last Vital Signs Temp 98.9 F 03/30/21 11:00 Pulse 91 03/30/21 16:49 Resp 14 03/30/21 16:49 BP 119/63 03/30/21 16:49 Pulse Ox 99 03/30/21 16:49 Body Mass Index 21.1 <EMILIANA Gonzales - Last Filed: 03/30/21 18:09> Const: General: alert and awake <EMILIANA Gonzales - Last Filed: 03/30/21 18:09> Nutritional Appearance: well nourished <EMILIANA Gonzales - Last Filed: 03/30/21 18:09> Orientation/consciousness: patient oriented x3 <EMILIANA Gonzales - Last Filed: 03/30/21 18:09> HENMT: Head: Yes normocephalic and Yes atraumatic <EMILIANA Gonzales - Last Filed: 03/30/21 18:09> Eyes: Other: Right eye prosthesis present <EMILIANA Gonzales - Last Filed: 03/30/21 18:09> Sclerae: sclerae normal <EMILIANA Gonzales - Last Filed: 03/30/21 18:09> Chest: Chest palpation & inspection: normal inspection of the chest <EMILIANA Gonzales - Last Filed: 03/30/21 18:09> Resp: Effort & Inspection: normal respiratory effort and no respiratory distress <EMILIANA Gonzales - Last Filed: 03/30/21 18:09> Auscultation: clear to auscultation bilaterally <EMILIANA Gonzales - Last Filed: 03/30/21 18:09> Cardio: Rate: regular rate <EMILIANA Gonzales - Last Filed: 03/30/21 18:09> Rhythm: regular rhythm <EMILIANA Gonzales - Last Filed: 03/30/21 18:09> Heart sounds: Clicking heart sound present <EMILIANA Gonzales - Last Filed: 03/30/21 18:09> GI: Palpation (GI): Soft to palpation and nontender <EMILIANA Gonzales - Last Filed: 03/30/21 18:09> Neuro: General: patient oriented x3 <EMILIANA Gonzales - Last Filed: 03/30/21 18:09> Cranial nerves: Yes CN's II-XII intact bilaterally and Yes Bilaterally intact EOM present <EMILIANA Gonzales - Last Filed: 03/30/21 18:09> Extrem: Other: No leg edema <EMILIANA Gonzales - Last Filed: 03/30/21 18:09> Results Labs CBC and Chem 7: : 03/30/21 11:32 03/31/21 04:40 <EMILIANA Gonzales - Last Filed: 03/30/21 18:09> Labs: Laboratory Results - last 24 hr 03/30/21 03/30/21 03/30/21 11:32 11:32 11:32 MCV 89.0 MCH 26.9 L MCHC 30.3 L RDW 18.4 H Plt Count 146 L MPV 10.9 Immature Gran % (Auto) 0.1 Neut % (Auto) 81.8 H Lymph % (Auto) 8.5 L [place] % (Auto) 8.4 Eos % (Auto) 0.9 Baso % (Auto) 0.3 Lymph # (Auto) 0.6 L [place] # (Auto) 0.6 Eos # (Auto) 0.1 Baso # (Auto) 0.0 Abs Immat Gran (auto) 0.01 Absolute Neuts (auto) 6.0 Absolute Nucleated RBC 0.000 Nucleated RBC % (auto) 0.0 Smear Tech's Comments VERIFIED PT 46.3 H INR 3.8 H Anion Gap 15 Estim Creat Clear Calc 16.8 Estimated GFR 14 Random Glucose 104 Lactic Acid Calcium 8.6 Magnesium 2.6 Total Bilirubin 0.6 Direct Bilirubin 0.3 AST 24 ALT 26 Alkaline Phosphatase 140 H Troponin I High Sens B-Natriuretic Peptide Total Protein 6.8 Albumin 3.4 L Urine Color Urine Appearance Urine pH Ur Specific [place] Urine Protein Urine Glucose (UA) Urine Ketones Urine Blood Urine Nitrite Ur Leukocyte Esterase Urine RBC Urine WBC Ur Squamous Epith Cells Urine Bacteria Urine Mucus 03/30/21 03/30/21 03/30/21 11:32 11:32 13:56 MCV MCH MCHC RDW Plt Count MPV Immature Gran % (Auto) Neut % (Auto) Lymph % (Auto) [place] % (Auto) Eos % (Auto) Baso % (Auto) Lymph # (Auto) [place] # (Auto) Eos # (Auto) Baso # (Auto) Abs Immat Gran (auto) Absolute Neuts (auto) Absolute Nucleated RBC Nucleated RBC % (auto) Smear Tech's Comments PT INR Anion Gap Estim Creat Clear Calc Estimated GFR Random Glucose Lactic Acid 0.5 Calcium Magnesium Total Bilirubin Direct Bilirubin AST ALT Alkaline Phosphatase Troponin I High Sens 699.2 H* B-Natriuretic Peptide 391 H Total Protein Albumin Urine Color YELLOW Urine Appearance CLEAR Urine pH 6.0 Ur Specific [place] 1.010 Urine Protein 3+ H Urine Glucose (UA) NEG Urine Ketones NEG Urine Blood TRACE Urine Nitrite NEG Ur Leukocyte Esterase 1+ H Urine RBC 0 Urine WBC 10-14 H Ur Squamous Epith Cells 1+ Urine Bacteria TRACE Urine Mucus 1+ 03/30/21 14:50 MCV MCH MCHC RDW Plt Count MPV Immature Gran % (Auto) Neut % (Auto) Lymph % (Auto) [place] % (Auto) Eos % (Auto) Baso % (Auto) Lymph # (Auto) [place] # (Auto) Eos # (Auto) Baso # (Auto) Abs Immat Gran (auto) Absolute Neuts (auto) Absolute Nucleated RBC Nucleated RBC % (auto) Smear Tech's Comments PT INR Anion Gap Estim Creat Clear Calc Estimated GFR Random Glucose Lactic Acid Calcium Magnesium Total Bilirubin Direct Bilirubin AST ALT Alkaline Phosphatase Troponin I High Sens 745.7 H* B-Natriuretic Peptide Total Protein Albumin Urine Color Urine Appearance Urine pH Ur Specific [place] Urine Protein Urine Glucose (UA) Urine Ketones Urine Blood Urine Nitrite Ur Leukocyte Esterase Urine RBC Urine WBC Ur Squamous Epith Cells Urine Bacteria Urine Mucus <EMILIANA Gonzales - Last Filed: 03/30/21 18:09> Imaging Radiologist's Impressions: Impressions Chest X-Ray 03/30/21 11:13 IMPRESSION: Marked enlargement of the cardiopericardial silhouette without definite acute parenchymal disease identified. Head CT 03/30/21 11:51 IMPRESSION: 1. No evidence of acute intracranial hemorrhage or edematous territorial infarction. 2. Mild underlying microangiopathy. 3. There is a 1.7 cm hyperattenuating structure within the inferior right nasal passage. This finding is nonspecific, potentially representing a chronically inspissated mucous polyp. A foreign body can also have this appearance. Recommend correlation with direct visualization. <EMILIANA Gonzales - Last Filed: 03/30/21 18:09> Assessment and Plan (1) Acute on chronic kidney failure: Status: Acute <EMILIANA Gonzales - Last Filed: 03/30/21 18:09> This is a 70-year-old female including heart failure with reduced ejection fraction, ski mixed cardiomyopathy status post AICD placement, pulmonary hypertension, CKD, mitral valve stenosis status post mechanical mitral valve, amyloidosis who presents to the emergency department after episode of dizziness found to have ALIZA on CKD Dizziness Likely secondary to hypotension No recent medication adjustments. Not hypotensive in the ED Orthostatics negative ALIZA on CKD Likely secondary to episode of hypotension Received fluid in ED -hold nephrotoxins -urine studies -if no improvement consider Nephrology consult Elevated troponin Initial troponin 699.2, repeat 745.7 No chest pain, no acute EKG changes ED provider discussed with Cardiology, no further intervention required. Likely related to CKD Mechanical mitral valve -INR 3.8 -hold Coumadin -monitor INR daily Will continue remainder of baseline medications when med reconciliation has been completed DVT prophylaxis-Coumadin Code status-full code Attending- Dr. sue <EMILIANA Gonzales - Last Filed: 03/30/21 18:09>
[2021-03-30 18:34] LABS: COVID-19 Test Negative (Negative)
[2021-03-30 18:47] LABS: Creatinine Urine 34.92 mg/dL; Sodium Urine Random < 20.0 mmol/L
--- NOTE | 2021-03-30 20:29 | PC.NURSE ---
nurse to nurse report given to Jennifer MENJIVAR
[2021-03-31] VITALS (7 sets, daily range): BP systolic 100–124; BP diastolic 59–74; PULSE 78–94; RESP 18; TEMP 36.2–37.6; O2SAT 95–97
[2021-03-31] MEDS: 0.9 % Sodium Chloride Flush 3 ML SYRINGE IVFLUSH ×3 (01:52→16:48)
[2021-03-31 05:42] LABS: Anion Gap 12 (12-20); Blood Urea Nitrogen 74 mg/dL (9-16); Calcium 8.1 mg/dL (8.4-10.2); Carbon Dioxide 25 mmol/L (22-29); Chloride 106 mmol/L (96-108); Estimated Glomerular Filt Rate 14; Glucose Random 88 mg/dL (60-115); Potassium 4.1 mmol/L (3.3-5.1); Sodium 139 mmol/L (135-145)
[2021-03-31 07:02] LABS: INTERNATIONAL NORM RATIO 4.3 (0.9-1.1); Prothrombin Time 52.2 SEC (10.8-13.0)
[2021-03-31] MEDS: Lactated Ringers 1,000 ML 100 ML IVCONT ×2 (09:35→19:28)
[2021-03-31] MEDS: Levothyroxine Sodium 112 MCG TABLET PO (09:36)
[2021-03-31] MEDS: FLUoxetine HCl 10 MG CAPSULE PO (09:36)
[2021-03-31] MEDS: Atorvastatin Calcium 40 MG TABLET PO (09:36)
[2021-03-31] MEDS: Aspirin Enteric Coated 81 MG TABLET.DR PO (09:37)
[2021-03-31] MEDS: Isosorbide Dinitrate 5 MG TABLET PO (09:38)
[2021-03-31] MEDS: Levothyroxine Sodium 25 MCG TABLET PO (09:39)
--- NOTE | 2021-03-31 13:42 | P.CONNP_ITS ---
History of Present Illness Reason for Consult Consult date: 03/31/21 Reason for consult: ALIZA on CKD Chief Complaint Chief complaint: ALIZA History of Present Illness Narrative: Ms. America Dooley is a 70-year-old female with CKD stage IV (BL Cr 2.4-2.6mg/dL) followed by Dr Minor Mayers. 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 She has HFrEF from the same s/p AIC, afib, MR, Breast cancer s/p left lumpectomy 2007 with radiation, and HTN who presented on 03/30/2021 for hypotension in the setting of unintentional weight loss for the last month. The patient tells me she has continued her lasix 40mg daily despite progressive weight loss over the month. She has fairly good PO intake. Her lasix was dec reased in office by Dr Mayers and she was told to stop her KCL. Her BP remains in the 70s so she came to the ED. On my assessment she feels well. She is only nervous that her kidneys are getting worse. She denies edema and dyspnea. She has dry MMs. Review of Systems Review of Systems Yes all other systems are reviewed and are negative Constitutional: Reports no additional constitutional complaints, Denies body ache(s), Denies chills, Denies fever(s), Denies headache(s) and Denies weakness Eyes: Reports no additional eye complaints and Denies change in vision Reports system reviewed and no additional complaints, except as documented, Reports dizziness, Denies headache(s), Denies nasal congestion, Denies nasal discharge and Denies neck pain Cardiovascular: Reports no additional cardiovascular complaints, Denies chest pain, Denies leg edema and Denies dyspnea Respiratory: Reports no additional respiratory complaints, Denies cough and Denies dyspnea Gastrointestinal: Reports no additional gastrointestinal complaints, Denies ab dominal pain, Denies diarrhea, Denies nausea and Denies vomiting Musculoskeletal: Reports no additional musculoskeletal complaints, Denies back pain, Denies arthralgias, Denies joint swelling, Denies neck pain, Denies numbness and Denies tingling Skin/Breast: Reports system reviewed and no additional complaints, except as docu and Denies rash Reports system reviewed and no additional complaints, except as documented, Denies Abnormal speech present, Reports dizziness, Denies headache(s), Denies numbness, Denies tingling and Denies weakness [facility] Past Medical History Medical History Amyloidosis Anxiety and depression Arthritis Bladder hypertonicity Chronic atrial fibrillation Chronic HFrEF (heart failure with reduced ejection fraction) Chronic kidney disease (CKD) stage G4/A1, severely decreased glomerular filtration rate (GFR) between 15-29 mL/min/1.73 square meter and albuminuria creatinine ratio less than 30 mg/g Detached retina Gout Heart disease History of breast cancer HTN (hypertension) Hypercholesterolemia Hypothyroid ICD (implantable cardioverter-defibrillator) in place Ischemic cardiomyopathy Kidney disease Nephrolithiasis Osteoarthritis Overweight (BMI 25.0-29.9) Pulmonary hypertension Thumb tendonitis Tricuspid regurgitation Urinary incontinence Functional capacity: uses cane/walker Family History Family History Mother Diabetes Father Past heart attack Diabetes Sister Parkinsons disease Surgical History Surgical History H/O abdominal hysterectomy H/O mitral valve replacement H/O mitral valve replacement with mechanical valve History of bunionectomy History of cataract surgery History of colonoscopy History of left inguinal hernia repair History of sleeve gastrectomy Social History Social History Household Members: None Housing: Apartment Do you presently have visiting nurse or other home services: No Alcohol intake: never Smoking Status: Never smoker Second Hand Smoke Exposure: No Use of substances other than those prescribed or required for medical reasons: No Currently Displaying Signs/Symptoms of Drug Intoxication Withdrawal: No Have you been hit, kicked, punched, or otherwise hurt by someone within the past year? If so, by whom?: No Do you feel safe in your current relationship?: No Current Relationship Is there a partner from a previous relationship who is making you feel unsafe now?: No Are you made to feel afraid or neglected: No Advance Directives: No Advance Directives Information Provided: No Do you have thoughts of harming others: None Do you have a plan to hurt others: No Plan Recently lost weight without trying: No Nutrition Risks: No Nutritional Risk Patient : No : No Poor oral hygiene: No Current occupational status: disabled Current occupation: left handed Meds Allergies Allergy/AdvReac Type Severity Reaction Status Date / Time NKDA Allergy Unknown NO KNOWN Uncoded 03/30/21 16:50 DRUG ALLERGIES - JUST PAPER TAPE TAPE,PAPER Allergy Unknown RASH TO Uncoded 03/30/21 16:50 PAPER TAPE Active Medications: Current Medications Generic Name Dose Route Start Last Admin Trade Name Freq PRN Reason Stop Dose Admin Acetaminophen 650 mg 03/30/21 20:16 Acetaminophen 325 Mg Tablet PO Q6H PRN Pain, Mild (Pain Scale 1-3) Aspirin 81 mg 03/31/21 09:00 03/31/21 09:37 Aspirin Enteric Coated 81 Mg Tablet.Dr PO 81 mg DAILY NADINE Administration Atorvastatin Calcium 40 mg 03/31/21 09:00 03/31/21 09:36 Atorvastatin Calcium 40 Mg Tablet PO 40 mg DAILY NADINE Administration Docusate Sodium 100 mg 03/30/21 20:16 Docusate Sodium 100 Mg Capsule PO DAILY PRN Constipation Fluoxetine HCl 10 mg 03/31/21 09:00 03/31/21 09:36 Fluoxetine Hcl 10 Mg Capsule PO 10 mg DAILY NADINE Administration Lactated Ringer's 1,000 mls @ 100 mls/hr 03/31/21 08:15 03/31/21 09:35 Lr IVCONT 100 mls/hr .Q10H NADINE Administration Isosorbide Dinitrate 5 mg 03/31/21 09:00 03/31/21 09:38 Isosorbide Dinitrate 5 Mg Tablet PO 5 mg BID NADINE Administration Protocol Levothyroxine Sodium 112 mcg 03/31/21 09:00 03/31/21 09:36 Levothyroxine Sodium 112 Mcg Tablet PO 112 mcg DAILY@0600 NADINE Administration Levothyroxine Sodium 25 mcg 03/31/21 09:00 03/31/21 09:39 Levothyroxine Sodium 25 Mcg Tablet PO 25 mcg DAILY@0600 [facility] Administration Pharmacy Consult 1 each 03/30/21 16:17 Consult Rx Perform Med Rec MISCELLANE ONCE PRN Consult order Senna 17.2 mg 03/31/21 08:11 Sennosides 8.6 Mg Tablet PO BEDTIME PRN Constipation Sodium Chloride 3 ml 03/31/21 00:00 03/31/21 09:36 0.9 % Sodium Chloride Flush 3 Ml Syringe IVFLUSH 3 ml QSHIFT NADINE Administration Trazodone HCl 50 mg 03/31/21 08:11 Trazodone Hcl 50 Mg Tablet PO DAILY PRN insomnia Home Medications Medication Instructions Recorded Confirmed Last Taken Type acetaminophen 325 mg capsule 325 mg PO QID PRN 08/06/20 03/30/21 Unknown History vit C 250 mg-vit E 90 mg-zinc 40 1 tab PO BID 08/06/20 03/30/21 03/30/21 History mg-copper 1 [id number] 09 capsule ferrous sulfate 324 mg (65 mg 324 mg PO BID 11/05/20 03/30/21 03/30/21 History iron) tablet,delayed release 899 vduggwde-avp-DW 200 mcg-vit K 15 1 tab PO DAILY 12/19/20 03/30/21 03/30/21 History mcg-lycope 150 vhi-vowiuj-xhxf 09 tablet warfarin 5 mg tablet 5 mg PO QWEEK 12/19/20 03/30/21 03/24/21 History furosemide 40 mg tablet 40 mg PO DAILY tab 01/01/21 03/30/21 03/30/21 History 09 CALCIUM 750 MG VIT D3 750 mg PO DAILY 01/21/21 03/30/21 01/14/21 09:00 History [id number] sennosides 8.6 mg tablet 17.2 mg PO BEDTIME PRN 02/05/21 03/30/21 03/29/21 History vitamins A,C,C-iucj-vbccvt 14,320 1 cap PO BID 03/18/21 03/30/21 03/30/21 History unit-226 mg-200 unit capsule 899 Physical Exam Vital Signs: Last Vital Signs Temp 98.0 F 03/31/21 12:00 Pulse 93 03/31/21 11:45 Resp 18 03/31/21 11:45 BP 100/59 L 03/31/21 11:45 Pulse Ox 96 03/31/21 12:00 Body Mass Index 21.1 Const General: cooperative, healthy appearing, comfortable, no acute distress, alert and awake Nutritional Appearance: well nourished Orientation/consciousness: patient oriented x3 Limitations: no limitations HENMT Head: Yes normal to inspection, Yes normocephalic and Yes atraumatic Ears: hearing grossly normal bilaterally General nose exam: Normal external nose present Face and sinus: Yes normal facial exam Mouth: Normal oral and palatal mucosa present Throat: Yes posterior oropharynx normal Eyes Other: Right eye prosthesis present General: appearance normal, both eyes and all related structures Sclerae: sclerae normal Pupils: Equal, round and reactive pupils present Neck Neck: Yes normal visual inspection Chest Chest palpation & inspection: normal inspection of the chest Resp Effort & Inspection: normal respiratory effort and no respiratory distress Auscultation: clear to auscultation bilaterally Cardio Rate: regular rate Rhythm: regular rhythm Heart sounds: Clicking heart sound present Peripheral pulses: Peripheral pulses 2+ throughout GI Inspection: Yes normal to inspection Palpation (GI): Soft to palpation and nontender Auscultation: normal bowel sounds Back/Spine/Pelvis Thoracic/Lumbar Spine: thoracic and lumbar spine normal to inspection Skin General skin exam: no rashes or lesions noted Neuro General: patient oriented x3, no focal motor deficits and normal sensation to monofilament Cranial nerves: Yes CN's II-XII intact bilaterally, Yes Equal, round and reactive pupils present, Yes Bilaterally intact EOM present, Yes Nystagmus not present, Yes Normal facial strength present and Yes Midline tongue present Cognition (Neuro): normal cognition Speech: No Abnormal speech present Gait exam (Neuro): Normal gait present Motor exam (neuro): 5/5 motor strength present throughout Sensory Exam: Normal double simultaneous stimulation for sensation Coordination: ejvsdk-tb-vxiw test normal and vkqc-pe-nywd test normal Extrem Other: No leg edema General: Yes normal to inspection, Yes no calf tenderness and Yes edema (Mild lower extremity swelling 1+ nonpitting) Results Lab Results Result Diagrams: 03/30/21 11:32 03/31/21 04:40 Lab results: Chemistry 03/30/21 03/31/21 11:32 04:40 Sodium 137 139 Potassium 4.0 4.1 Carbon Dioxide 26 25 BUN 67 H 74 H Creatinine 3.23 H 3.19 H Calcium 8.6 8.1 L Hematology 03/30/21 11:32 WBC 7.4 Hgb 10.5 L Plt Count 146 L Urinalysis 03/30/21 13:56 Urine Color YELLOW Urine Appearance CLEAR Urine pH 6.0 Ur Specific Ramsay 1.010 Urine Protein 3+ H Urine Glucose (UA) NEG Urine Ketones NEG Urine Blood TRACE Urine Nitrite NEG Ur Leukocyte Esterase 1+ H Urine RBC 0 Urine WBC 10-14 H Ur Squamous Epith Cells 1+ Urine Studies 03/30/21 18:07 Urine Creatinine 34.92 Assessment and Plan (1) Acute on chronic kidney failure: Status: Acute Ms. America Dooley is a 70-year-old female with CKD stage IV (BL Cr 2.4- 2.6mg/dL) followed by Dr Minor Myaers. 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 She has HFrEF from the same s/p AIC, afib, MR, Breast cancer s/p left lumpectomy 2007 with radiation, and HTN who presented on 03/30/2021 for hypotension in the setting of unintentional weight loss for the last month. 1. ALIZA on CKD stage IV BL Cr 2.4-2.6mg/dL Cr rising to 3.23mg/dL on presentation UA with 3+ protein (Amyloid disease) Lisa <20 FeNa 1.3% however. Overall pre-renal azotemia however with her prolonged ischemia she is at risk for the pre-renal component transitioning to some ischemic ATN. Plan: - stop lasix - c/w IV using LR as you are - work up weight losss - monitor troponin, if it continues to rise as ALIZA improves, may represent a primary cardiac event. Procedures Date of Service Date of Service: 03/31/21
--- NOTE | 2021-03-31 14:00 | MHC.CM.PN ---
CM MET WITH PT WHO REPORTS SHE LIVES IN THE LOWER LEVEL OF A TWO-FAMILY HOME, HER BROTHER/HCP, .LIVES UPSTAIRS. PT REPORTS SHE IS INDEPENDENT WITH ADLS AND USES A ROLLATOR TO AMBULATE. PT REPORTS SHE WAS [facility]ING [facility] PRIOR TO COVID-19 HOWEVER SHE HAS NOT BEEN ABLE TO GO SHE CANNOT WEAR A MASK FOR THAT LONG WITHOUT HER ANXIETY INCREASING. PT REPORTS THEY STILL HAVE HER ON FILE AND CALL HER PERIODICALLY TO SEE IF SHE NEEDS ANYTHING. PT BELIEVES SHE WILL RETURN WHEN MASK MANDATES ARE LIFTED. PT CONFIRMS HER PCP IS RINKU PAZ AND SHE HAS A HCP ON FILE SHE INDICATES IS ACCURATE. OBSERVATION NOTICE WAS EXPLAINED AND PT INDICATED UNDERSTANDING. CURRENT DC PLAN IS HOME WITH NO SERVICES PTS BROTHER WILL PROVIDE TRANSPORTATION
--- NOTE | 2021-03-31 15:12 | HO.PM.IMPN ---
Subjective Subjective Date of Service: 03/31/21 <EMILIANA Gonzales - Last Filed: 03/31/21 15:28> 03/31/21 <Jaja Eng MD - Last Filed: 03/31/21 15:42> Interval History: seen and examined this morning no complaints this am, worried about her kidneys no further episodes of dizziness or feeling woozy <EMILIANA Gonzales - Last Filed: 03/31/21 15:28> Review of Systems Review of Systems: Yes all other systems are reviewed and are negative <EMILIANA Gonzales - Last Filed: 03/31/21 15:28> Constitutional Constitutional: Denies chills and Denies fever(s) <EMILIANA Gonzales - Last Filed: 03/31/21 15:28> Cardiovascular Cardiovascular: Denies chest pain <EMILIANA Gonzales - Last Filed: 03/31/21 15:28> Respiratory Respiratory: Denies cough <EMILIANA Gonzales - Last Filed: 03/31/21 15:28> Gastrointestinal Gastrointestinal: Denies abdominal pain <EMILIANA Gonzales - Last Filed: 03/31/21 15:28> Physical Exam Vital Signs: Vital Signs: Last Vital Signs Temp 98.0 F 03/31/21 12:00 Pulse 93 03/31/21 11:45 Resp 18 03/31/21 11:45 BP 100/59 L 03/31/21 11:45 Pulse Ox 96 03/31/21 12:00 Body Mass Index 21.1 <EMILIANA Gonzales - Last Filed: 03/31/21 15:28> Const: General: alert and awake <EMILIANA Gonzales - Last Filed: 03/31/21 15:28> Nutritional Appearance: well nourished <EMILIANA Gonzales - Last Filed: 03/31/21 15:28> Orientation/consciousness: patient oriented x3 <EMILIANA Gonzales Last Filed: 03/31/21 15:28> HENMT: Other: dry MM <EMILIANA Gonzales - Last Filed: 03/31/21 15:28> Head: Yes normocephalic and Yes atraumatic <EMILIANA Gonzales - Last Filed: 03/31/21 15:28> Eyes: Other: Right eye prosthesis present <EMILIANA Gonzales - Last Filed: 03/31/21 15:28> Sclerae: sclerae normal <EMILIANA Gonzales - Last Filed: 03/31/21 15:28> Chest: Chest palpation & inspection: normal inspection of the chest <EMILIANA Gonzales - Last Filed: 03/31/21 15:28> Resp: Effort & Inspection: normal respiratory effort and no respiratory distress <EMILIANA Gonzales - Last Filed: 03/31/21 15:28> Auscultation: clear to auscultation bilaterally <EMILIANA Gonzales - Last Filed: 03/31/21 15:28> Cardio: Rate: regular rate <EMILIANA Gonzales - Last Filed: 03/31/21 15:28> Rhythm: regular rhythm <EMILIANA Gonzales - Last Filed: 03/31/21 15:28> Heart sounds: Clicking heart sound present <EMILIANA Gonzales - Last Filed: 03/31/21 15:28> GI: Palpation (GI): Soft to palpation and nontender <EMILIANA Gonzales - Last Filed: 03/31/21 15:28> Neuro: General: patient oriented x3 <EMILIANA Gonzales - Last Filed: 03/31/21 15:28> Cranial nerves: Yes CN's II-XII intact bilaterally and Yes Bilaterally intact EOM present <EMILIANA Gonzales - Last Filed: 03/31/21 15:28> Extrem: Other: No leg edema <EMILIANA Gonzales - Last Filed: 03/31/21 15:28> Objective Data Current Medications Generic Name Dose Route Start Last Admin Trade Name Freq PRN Reason Stop Dose Admin Acetaminophen 650 mg 03/30/21 20:16 Acetaminophen 325 Mg Tablet PO Q6H PRN Pain, Mild (Pain Scale 1-3) Aspirin 81 mg 03/31/21 09:00 03/31/21 09:37 Aspirin Enteric Coated 81 Mg Tablet.Dr PO 81 mg DAILY NADINE Administration Atorvastatin Calcium 40 mg 03/31/21 09:00 03/31/21 09:36 Atorvastatin Calcium 40 Mg Tablet PO 40 mg DAILY NADINE Administration Docusate Sodium 100 mg 03/30/21 20:16 Docusate Sodium 100 Mg Capsule PO DAILY PRN Constipation Fluoxetine HCl 10 mg 03/31/21 09:00 03/31/21 09:36 Fluoxetine Hcl 10 Mg Capsule PO 10 mg DAILY NADNIE Administration Lactated Ringer's 1,000 mls @ 100 mls/hr 03/31/21 08:15 03/31/21 09:35 Lr IVCONT 100 mls/hr .Q10H NADINE Administration Isosorbide Dinitrate 5 mg 03/31/21 09:00 03/31/21 09:38 Isosorbide Dinitrate 5 Mg Tablet PO 5 mg BID NADINE Administration Protocol Levothyroxine Sodium 112 mcg 03/31/21 09:00 03/31/21 09:36 Levothyroxine Sodium 112 Mcg Tablet PO 112 mcg DAILY@0600 [facility] Administration Levothyroxine Sodium 25 mcg 03/31/21 09:00 03/31/21 09:39 Levothyroxine Sodium 25 Mcg Tablet PO 25 mcg DAILY@0600 [facility] Administration Pharmacy Consult 1 each 03/30/21 16:17 Consult Rx Perform Med Rec MISCELLANE ONCE PRN Consult order Senna 17.2 mg 03/31/21 08:11 Sennosides 8.6 Mg Tablet PO BEDTIME PRN Constipation Sodium Chloride 3 ml 03/31/21 00:00 03/31/21 09:36 0.9 % Sodium Chloride Flush 3 Ml Syringe IVFLUSH 3 ml QSHIFT [facility] Administration Trazodone HCl 50 mg 03/31/21 08:11 Trazodone Hcl 50 Mg Tablet PO DAILY PRN insomnia <EMILIANA Gonzales - Last Filed: 03/31/21 15:28> Labs CBC & Chem 7: : 03/30/21 11:32 03/31/21 04:40 <EMILIANA Gonzales - Last Filed: 03/31/21 15:28> Microbiology Microbiology Results: Microbiology 03/30/21 12:25 Blood - Venous Blood Culture - Preliminary No growth after 24 hours. 03/30/21 11:32 Blood - Venous Blood Culture - Preliminary No growth after 24 hours. 03/30/21 13:56 Urine clean catch - Clean Catch Midstream Urine Culture - Final <EMILIANA Gonzales - Last Filed: 03/31/21 15:28> Assessment and Plan (1) Acute on chronic kidney failure: Status: Acute <EMILIANA Gonzales - Last Filed: 03/31/21 15:28> Assessment and Plan: This is a 70-year-old female including heart failure with reduced ejection fraction, ischemic cardiomyopathy status post AICD placement, pulmonary hypertension, CKD, mitral valve stenosis status post mechanical mitral valve, amyloidosis who presents to the emergency department after episode of dizziness found to have ALIZA on CKD Dizziness. Resolved Likely secondary to episode of hypotension. Orthostatics negative in the ED. blood pressure on softer side may be r/t volume depletion ALIZA on CKD4 Likely secondary to episode of hypotension/volume depletion -continue IVF -hold nephrotoxins -nephrology following Hypertension Blood pressure soft -hold home meds Elevated troponin Initial troponin 699.2, repeat 745.7. Flat. No chest pain. Likely related to CKD Mechanical mitral valve -INR 4.3 -hold Coumadin -monitor INR daily Mood -continue fluoxetine Hypothyroidism -continue Synthroid HLD -continue statin atrial fibrillation -hold carvedilol -coumadin on hold, for INR 4.3 HFrEF -hold lasix -follow fluid status DVT prophylaxis-Coumadin Code status-full code Attending- Dr. sue <EMILIANA Gonzales - Last Filed: 03/31/21 15:28>
[2021-04-01] VITALS: BP 107/57; PULSE 76; RESP 18; TEMP 36.2; O2SAT 97
[2021-04-01 04:00] VITALS: BP 126/59; PULSE 84; RESP 18; TEMP 36.9; O2SAT 94
[2021-04-01] MEDS: Lactated Ringers 1,000 ML 100 ML IVCONT (05:31)
[2021-04-01] MEDS: Levothyroxine Sodium 25 MCG TABLET PO (05:32)
[2021-04-01] MEDS: Levothyroxine Sodium 112 MCG TABLET PO (05:32)
[2021-04-01 07:28] LABS: Hematocrit 32.5 % (37-47); Hemoglobin 9.9 g/dl (12.0-16.0); Mean Corpuscular HGB Conc 30.5 g/dl (31.0-35.0); Mean Corpuscular Volume 88.6 fL (80-98); Mean Platelet Volume 12.3 fL (9.4-12.3); Platelet Count 134 X10*3/uL (160-400); Red Blood Count 3.67 X10*6/uL (4.20-5.50); Red Cell Distribution Width 18.5 % (11.0-16.0); White Blood Count 7.6 X10*3/uL (4.8-10.8)
[2021-04-01 07:39] LABS: INTERNATIONAL NORM RATIO 2.6 (0.9-1.1); Prothrombin Time 31.6 SEC (10.8-13.0)
[2021-04-01 07:47] VITALS: BP 117/65; PULSE 88; RESP 18; TEMP 36.2; O2SAT 96
[2021-04-01 08:09] LABS: Anion Gap 14 (12-20); Blood Urea Nitrogen 61 mg/dL (9-16); Calcium 8.2 mg/dL (8.4-10.2); Carbon Dioxide 23 mmol/L (22-29); Chloride 109 mmol/L (96-108); Creatinine Clr Calc Pharmacy 21.5; Estimated Glomerular Filt Rate 19; Glucose Random 83 mg/dL (60-115); Potassium 3.9 mmol/L (3.3-5.1); Sodium 142 mmol/L (135-145)
[2021-04-01] MEDS: Atorvastatin Calcium 40 MG TABLET PO (09:52)
[2021-04-01] MEDS: 0.9 % Sodium Chloride Flush 3 ML SYRINGE IVFLUSH (09:52)
[2021-04-01] MEDS: FLUoxetine HCl 10 MG CAPSULE PO (09:52)
[2021-04-01] MEDS: Aspirin Enteric Coated 81 MG TABLET.DR PO (09:52)
[2021-04-01] MEDS: Potassium Chloride ER 20 MEQ TAB.ER.PRT PO (09:52)
[2021-04-01] MEDS: Furosemide 20 MG TABLET PO (09:52)
[2021-04-01 10:34] VITALS: BP 117/65; PULSE 88; O2SAT 96
--- NOTE | 2021-04-01 11:17 | PM.PNNEP ---
Subjective Subjective Date of Service: 04/01/21 Interval history: Events noted. All recent data reviewed Physical Exam Vital Signs: Vital Signs: Last Vital Signs Temp 97.1 F 04/01/21 07:47 Pulse 88 04/01/21 10:34 Resp 18 04/01/21 07:47 BP 117/65 04/01/21 10:34 Pulse Ox 96 04/01/21 10:34 Body Mass Index 21.1 Const: General: no acute distress Neck: Neck: Yes supple Resp: Auscultation: diminished lung sounds Cardio: Jugular venous distension: no JVD GI: Palpation (GI): Soft to palpation Neuro: General: moves all extremities Objective Data Labs CBC & Chem 7: 04/01/21 06:17 04/01/21 06:17 Labs: Laboratory Results - last 24 hr 04/01/21 04/01/21 04/01/21 06:17 06:17 06:17 WBC 7.6 RBC 3.67 L Hgb 9.9 L Hct 32.5 L MCV 88.6 MCH 27.0 MCHC 30.5 L RDW 18.5 H Plt Count 134 L MPV 12.3 Absolute Nucleated RBC 0.000 Nucleated RBC % (auto) 0.0 PT 31.6 H D INR 2.6 H Sodium 142 Potassium 3.9 Chloride 109 H Carbon Dioxide 23 Anion Gap 14 BUN 61 H Creatinine 2.52 H Estim Creat Clear Calc 21.5 Estimated GFR 19 Random Glucose 83 Calcium 8.2 L Microbiology Microbiology Results: Microbiology 03/30/21 12:25 Blood - Venous Blood Culture - Preliminary No growth after 24 hours. 03/30/21 11:32 Blood - Venous Blood Culture - Preliminary No growth after 24 hours. 03/30/21 13:56 Urine clean catch - Clean Catch Midstream Urine Culture - Final Assessment & Plan Assessment and plan (1) Acute on chronic kidney failure: Status: Acute Assessment and Plan: America Dooley is a 70-year-old female with CKD stage IV (BL Cr 2.4-2.6mg/dL) due to AA amyloid. She presented on 03/30/2021 for hypotension in the setting of unintentional weight loss for the last month. ALIZA on CKD stage IV BL Cr 2.4-2.6mg/dL Renal function back to baseline Continue to hold lasix for now Needs work up weight loss Concur with rest of current supportive care Time Spent With Patient Time: Total time spent is greater than 50% in coordination of care (as documented) at patient's floor/unit and/or counseling patient: Procedures Date of Service Date of Service: 04/01/21
--- NOTE | 2021-04-01 11:49 | P.DS_ITS ---
DS: Providers Provider Date of Service: 04/01/21 Date of admission: 03/30/21 17:58 Primary care physician: Dakotah Jin MD Consults: 03/31/21 08:10 Consult to Nephrology Routine Consulting Provider: Jonas Barlow Reason for consultation: aliza on ckd Has provider been notified: No DS: Diagnosis Discharge Diagnosis (1) Acute on chronic kidney failure: Status: Acute (2) Hypotension: Status: Acute DS: Medications Discharge Medications Home Medications: Home Medications Medication Instructions Recorded Confirmed acetaminophen 325 mg capsule 325 mg PO QID PRN 08/06/20 03/30/21 vit C 250 mg-vit E 90 mg-zinc 40 1 tab PO BID 08/06/20 03/30/21 mg-copper 1 rs-mhzjte-xmhmsw capsule ferrous sulfate 324 mg (65 mg 324 mg PO BID 11/05/20 03/30/21 iron) tablet,delayed release qnpmgrpf-str-ZS 200 mcg-vit K 15 1 tab PO DAILY 12/19/20 03/30/21 mcg-lycope 150 vzt-sirwzb-hufe tablet warfarin 5 mg tablet 5 mg PO QWEEK 12/19/20 03/30/21 furosemide 40 mg tablet 40 mg PO DAILY tab 01/01/21 03/30/21 CALCIUM 750 MG VIT D3 750 mg PO DAILY 01/21/21 03/30/21 sennosides 8.6 mg tablet 17.2 mg PO BEDTIME PRN 02/05/21 03/30/21 vitamins A,C,P-pghl-oxrcub 14,320 1 cap PO BID 03/18/21 03/30/21 unit-226 mg-200 unit capsule Previous Rx's Medication Instructions Recorded warfarin 2.5 mg tablet See Rx Instructions .ROUTE 08/21/20 .COMPLEX #90 tab potassium chloride 20 mEq 20 meq PO DAILY #90 tab 08/28/20 tablet,extended release(part/cryst) carvedilol 25 mg tablet 25 mg PO BID 90 Days #180 tab 09/05/20 aspirin 81 mg tablet,delayed 81 mg PO DAILY #90 tab 09/17/20 release diclofenac sodium 1 % topical gel 4 g TOPICAL TID #400 g 10/23/20 levothyroxine 137 mcg tablet 137 mcg PO QAM #90 tab 11/07/20 rosuvastatin 10 mg tablet 10 mg PO DAILY 90 Days #90 tab 11/12/20 zinc oxide 10 %-white petrolatum 1 appl TOPICAL BID #99 g 11/14/20 78 % topical cream trazodone 50 mg tablet 50 mg PO DAILY PRN 28 Days #14 tab 11/26/20 ascorbic acid (vitamin C) 500 mg PO BID #60 cap 01/03/21 isosorbide dinitrate 5 mg tablet 5 mg PO BID #180 tab 02/28/21 colchicine 0.6 mg capsule 0.6 mg PO DAILY PRN #90 cap 03/26/21 fluoxetine 10 mg capsule 10 mg PO DAILY #30 cap 03/26/21 DS: Summary Hospital Course Hospital Course: Admission note HPI This is a 70-year-old female with numerous medical problems who presents to the emergency department after an episode of dizziness. Patient was in her usual state of health when she began feeling woozy. She had no other associated symptoms. She denied any chest pain, palpitations, shortness of breath, nausea, vomiting. She took her blood pressure and was in the 70 systolic. She called the ambulance and was brought to the emergency department. While in the emergency department her blood pressure remained in the normal range. She has had no further episodes of dizziness. Her orthostatic blood pressures were checked and were unremarkable. Lab work did reveal ALIZA with serum creatinine 3.23 which is increased from her baseline of 2.6 from March 18. 1 L bolus of normal saline. She denies any recent medication adjustments or new medications. Her appetite has been stable and she denies any vomiting or diarrhea. Hospital course Patient presented to the hospital mainly with worsening dizziness episodes. Found to have elevated kidney function comparison to her most recent result. Her episodes of dizziness was Believed to be secondary to blood pressure medications and continue was weight loss. Hydralazine was held during the hospital stay. Patient was not sure about her dose of carvedilol so she did not receive it as well. Her blood pressure was noted to be running low to low normal. She was evaluated by physical therapy team with no reported dizziness with recommendation for home therapy. Will discontinue hydralazine and decrease Lasix with will keep her on the same dose of carvedilol at home. Asked her to monitor blood pressure and report readings to PCP. Her kidney function improved during the hospital stay with IV hydration. Evaluated and followed by Nephrology who recommended decrease Lasix. Creatinine at the day of discharge was 2.5 from baseline of around 2.6-2.7 Noticed to have elevated initial troponin with repeat flat secondary to CKD. No acute G changes or complaints from the patient. She was monitored on telemetry during the stay with no abnormal rhythm noticed. Discharge plan Discontinue hydralazine Decrease Lasix to 20 mg daily To repeat blood test next week To do physical therapy at home Monitor blood pressure and keep readings for the next week to discuss with Cardiology and primary care To follow-up with primary care for weight loss evaluation. Time Spent with Patient Time attestation: Total time spent providing and/or coordinating discharge services: Discharge coordination time: Greater than 30 minutes Quality: Stroke Does the patient have a stroke diagnosis?: No Physical Exam Vital Signs: Vital Signs: Last Vital Signs Temp 97.1 F 04/01/21 07:47 Pulse 88 04/01/21 10:34 Resp 18 04/01/21 07:47 BP 117/65 04/01/21 10:34 Pulse Ox 96 04/01/21 10:34 Body Mass Index 21.1 Const: Other: Constitutional : Alert, oriented, not in distress, blind in left eye Neck : Normal inspection, Supple Cardiovascular : Irregular irregular, S1 S2, no lower extremity edema Respiratory : Decreased but fair bilateral air entry, no crackles, wheezes or rhonchi Gastrointestinal: soft, lax, Normal bowel sounds, Non tender Skin : Warm/Dry, No rash Neurological : Alert & oriented x3, No focal deficit DS: Data Data Completed and Pending Labs on day of discharge: Laboratory Results - last 24 hr 04/01/21 04/01/21 04/01/21 06:17 06:17 06:17 WBC 7.6 RBC 3.67 L Hgb 9.9 L Hct 32.5 L MCV 88.6 MCH 27.0 MCHC 30.5 L RDW 18.5 H Plt Count 134 L MPV 12.3 Absolute Nucleated RBC 0.000 Nucleated RBC % (auto) 0.0 PT 31.6 H D INR 2.6 H Sodium 142 Potassium 3.9 Chloride 109 H Carbon Dioxide 23 Anion Gap 14 BUN 61 H Creatinine 2.52 H Estim Creat Clear Calc 21.5 Estimated GFR 19 Random Glucose 83 Calcium 8.2 L Preliminary micro results at discharge 03/30/21 12:25 Blood Culture - Preliminary Blood - Venous No growth after 24 hours. 03/30/21 11:32 Blood Culture - Preliminary Blood - Venous No growth after 24 hours. Discharge Plan Discharge Patient Disposition: Home Health Service Referrals: [facility] [Other] - 1 Week Po,Dakotah Ahumada MD [Primary Care Provider] - 1 Week Discharge Medications: Continued potassium chloride [Klor-Con M20] 20 mEq tablet,ER particles/crystals 20 meq PO DAILY Qty: 90 RF: 5 carvedilol [Coreg] 25 mg tablet 25 mg PO BID 90 Days Qty: 180 RF: 3 aspirin 81 mg tablet,delayed release (DR/EC) 81 mg PO DAILY Qty: 90 RF: 3 diclofenac sodium 1 % gel 4 g topical TID Qty: 400 RF: 11 levothyroxine 137 mcg tablet 137 mcg PO QAM Qty: 90 RF: 3 rosuvastatin [Crestor] 10 mg tablet 10 mg PO DAILY 90 Days Qty: 90 RF: 1 [place] Moist Barrier-Zinc 10-78 % cream 1 appl topical BID Qty: 99 RF: 3 trazodone 50 mg tablet 50 mg PO DAILY PRN (Reason: insomnia) 28 Days Qty: 14 RF: 5 isosorbide dinitrate 5 mg tablet 5 mg PO BID Qty: 180 RF: 3 colchicine 0.6 mg capsule 0.6 mg PO DAILY PRN (Reason: Pain, Severe) Qty: 90 RF: 1 fluoxetine 10 mg capsule 10 mg PO DAILY Qty: 30 RF: 1 PreserVision AREDS-2 656-569-48-1 yd-rmnj-cf-mg capsule 1 tab PO BID RF: 0 acetaminophen [Tylenol] 325 mg capsule 325 mg PO QID PRN (Reason: Pain) RF: 0 warfarin 2.5 mg tablet See Rx Instructions mg .ROUTE .COMPLEX Qty: 90 RF: 2 CALCIUM 750 MG VIT D3 750 mg PO DAILY RF: 0 vitamins A,C,S-xprn-hrpchc 14,320-226-200 lknc-pv-ezsr capsule 1 cap PO BID RF: 0 ferrous sulfate 324 mg (65 mg iron) tablet,delayed release (DR/EC) 324 mg PO BID RF: 0 ascorbic acid (vitamin C) 500 mg capsule, extended release 500 mg PO BID Qty: 60 RF: 5 ug-wa-JO-vit N-rzfzb-ysat-zeax 200-15-150 mcg tablet 1 tab PO DAILY RF: 0 warfarin 5 mg tablet 5 mg PO QWEEK RF: 0 Hold Instructions: USING 2.5MG TAB sennosides 8.6 mg tablet 17.2 mg PO BEDTIME PRN (Reason: Constipation) RF: 0 Changed furosemide 40 mg tablet 20 mg PO DAILY Qty: 0 RF: 0 Discontinued hydralazine 10 mg tablet 10 mg PO BID Qty: 180 RF: 3 Discharge Orders: Discharge Order (Routine); Ordered 04/01/21 Ordered By: Jaja Eng Diet: advance to usual diet Activity on Discharge: As tolerated Stand Alone Forms: Patient Portal Discharge page Care Plan Goals: Read below Health Concerns: Read below Plan of Treatment: You were admitted to the hospital for evaluation and worsening kidney function. Your kidney function has improved back to baseline with hydration of your kidneys. You were evaluated by kidney doctor will continue to follow up with you as outpatient. Your blood pressure was noted to be solved. You hydralazine was discontinued with improvement in your blood pressure. You were evaluated by physical therapy team who recommended home therapy. Assessment: Discontinue hydralazine Decrease Lasix to 20 mg daily To repeat blood test next week To do physical therapy at home Monitor blood pressure and keep readings for the next week to discuss with Cardiology and primary care To follow-up with primary care for weight loss evaluation. Discharge Date/Time: 04/01/21 14:25
--- NOTE | 2021-04-01 11:59 | MHC.CM.PN ---
Patient has been medically cleared for dc to home today with new [facility].CM met with Patient who is agreeable to [facility], who has been notified of today's dc.Last IMM addressed yesterday.
[2021-04-01 12:00] VITALS: BP 120/64; PULSE 89; RESP 20; O2SAT 96
--- NOTE | 2021-04-01 12:05 | MHC.CM.PN ---
A referral was made to [facility], prior to CM realizing that Patient has CCA, who has a RN eval after dc from the hospital, within 48 hours.
== END 2021-04-01 14:25 | disposition home health service (06) ==
LOC: HO.ED 16:11 → HO.EDOVER 18:10 → HO.IMC 19:34
PROVIDERS: Nurse Practitioner Family; Admitting Provider Physician Assistant Medical; Emergency Provider Emergency Medicine; PCP Internal Medicine; Visit Provider Student in an Organized Health Care Education/Training Program
DX: N17.9 Acute kidney failure, unspecified (principal); N18.4 Chronic kidney disease, stage 4 (severe); I95.9 Hypotension, unspecified; E85.89 Other amyloidosis; I13.0 Hypertensive heart and chronic kidney disease with heart failure and stage 1 through stage 4 chronic kidney disease, or unspecified chronic kidney disease; I50.20 Unspecified systolic (congestive) heart failure; E78.00 Pure hypercholesterolemia, unspecified; E03.9 Hypothyroidism, unspecified; R42 Dizziness and giddiness; I48.20 Chronic atrial fibrillation, unspecified; R94.31 Abnormal electrocardiogram [ECG] [EKG]; E86.0 Dehydration; Z97.0 Presence of artificial eye; Z95.810 Presence of automatic (implantable) cardiac defibrillator; Z85.3 Personal history of malignant neoplasm of breast; Z92.3 Personal history of irradiation; Z95.2 Presence of prosthetic heart valve; Z91.048 Other nonmedicinal substance allergy status; Z79.01 Long term (current) use of anticoagulants; Z79.899 Other long term (current) drug therapy
CPT/HCPCS: 36415; 70450; 71046; 80048; 80076; 81001; 81003; 83605; 83735; 83880; 84300; 84484; 85025; 85027; 85610; 87040; 87086; 87635; 93005; 96360; 96361; 96375; 97161; 99219; 99285

== ENCOUNTER 2021-04-08 18:07 | Emergency (ER) | payer MEDICARE, SELFPAY ==
--- NOTE | ~2021-04-08 | CT_ITS ---
EXAMINATION: CT HEAD WITHOUT CONTRAST CLINICAL INFORMATION: Dizziness on Coumadin. COMPARISON: 03/30/2021 TECHNIQUE: Contiguous axial imaging was performed from the skull base to vertex without intravenous administration of contrast. This CT examination was performed using dose optimization techniques as appropriate, variously including the following: *Automated exposure control *Adjustment of mA and/or kV according to patient size (this includes techniques or standardized protocols for targeted exams where dose is matched to indication/reason for exam; i.e. extremities or head) *Use of iterative reconstruction technique DLP: 661 mGy-cm FINDINGS: There is no evidence of acute intracranial hemorrhage or territorial infarction. No abnormal mass effect or midline shift is seen. Hopkins to white matter differentiation is well preserved. No extra-axial fluid collections are identified. The ventricles are normal in size. There is no abnormal attenuation within the brain parenchyma. The mastoid air cells and visualized portions of the paranasal sinuses are well aerated. Left globe prosthesis. Hyperostosis frontalis. CT/CT head/brain wo con IMPRESSION: No acute intracranial pathology.
[2021-04-08 18:46] VITALS: BP 116/65; PULSE 97; RESP 20; TEMP 36.4; O2SAT 97; BMI 21.8
--- NOTE | 2021-04-08 19:37 | ED_ITS ---
HPI - Dizziness General Chief Complaint: Dizziness Stated Complaint: dizziness Time Seen by Provider: 04/08/21 19:37 Source: patient Mode of arrival: ambulatory Limitations: no limitations History of Present Illness HPI Narrative: 70 yo female with afib, PPM, CHF, HTN, HLD, anxiety/depression, pulm HTN, triscuspic regurgitation just DC on Thursday following ALIZA on CKD and dizziness - stopped hydralazine and decreased lasix to 20mg daily, reports eating today, no CP/SOB no GIB symptoms MD elicited complaint: dizziness and lightheadedness Onset (ago): day(s) (started this AM) Timing: gradual onset Severity: moderate Description: lightheadedness Context: change in body position History of similar symptoms: Yes Exacerbating factors: movement/ambulation and change in body position Relieving factors: remaining still Associated symptoms: denies other symptoms Related Data Home Medications Medication Instructions Recorded Confirmed acetaminophen 325 mg capsule 325 mg PO QID PRN 08/06/20 04/03/21 vit C 250 mg-vit E 90 mg-zinc 40 1 tab PO BID 08/06/20 04/03/21 mg-copper 1 yh-ujsfoc-dfeuut capsule ferrous sulfate 324 mg (65 mg 324 mg PO BID 11/05/20 04/03/21 iron) tablet,delayed release tnouyixl-drm-VO 200 mcg-vit K 15 1 tab PO DAILY 12/19/20 04/03/21 mcg-lycope 150 ixm-oyuaun-saee tablet warfarin 5 mg tablet 5 mg PO QWEEK 12/19/20 04/03/21 CALCIUM 750 MG VIT D3 750 mg PO DAILY 01/21/21 04/03/21 sennosides 8.6 mg tablet 17.2 mg PO BEDTIME PRN 02/05/21 04/03/21 vitamins A,C,L-agyk-fflvzy 14,320 1 cap PO BID 03/18/21 04/03/21 unit-226 mg-200 unit capsule furosemide 40 mg tablet 20 mg PO DAILY tab 04/03/21 Previous Rx's Medication Instructions Recorded warfarin 2.5 mg tablet See Rx Instructions .ROUTE 08/21/20 .COMPLEX #90 tab potassium chloride 20 mEq 20 meq PO DAILY #90 tab 08/28/20 tablet,extended release(part/cryst) carvedilol 25 mg tablet 25 mg PO BID 90 Days #180 tab 09/05/20 aspirin 81 mg tablet,delayed 81 mg PO DAILY #90 tab 09/17/20 release diclofenac sodium 1 % topical gel 4 g TOPICAL TID #400 g 10/23/20 levothyroxine 137 mcg tablet 137 mcg PO QAM #90 tab 11/07/20 rosuvastatin 10 mg tablet 10 mg PO DAILY 90 Days #90 tab 11/12/20 zinc oxide 10 %-white petrolatum 1 appl TOPICAL BID #99 g 11/14/20 78 % topical cream ascorbic acid (vitamin C) 500 mg PO BID #60 cap 01/03/21 isosorbide dinitrate 5 mg tablet 5 mg PO BID #180 tab 02/28/21 colchicine 0.6 mg capsule 0.6 mg PO DAILY PRN #90 cap 03/26/21 fluoxetine 10 mg capsule 10 mg PO DAILY #30 cap 03/26/21 omeprazole 20 mg capsule,delayed 20 mg PO DAILY #30 cap 04/04/21 release omeprazole 20 mg capsule,delayed 20 mg PO DAILY #90 cap 04/05/21 release trazodone 50 mg tablet 50 mg PO DAILY PRN #42 tab 04/07/21 Allergies Allergy/AdvReac Type Severity Reaction Status Date / Time NKDA Allergy Unknown NO KNOWN Uncoded 04/08/21 18:46 DRUG ALLERGIES - JUST PAPER TAPE TAPE,PAPER Allergy Unknown RASH TO Uncoded 04/08/21 18:46 PAPER TAPE Review of Systems Review of Systems: Constitutional : No Weight loss, No Fever, No Chills, No Fatigue, No Malaise ENT/Mouth : No sore throat, No Rhinorrhea Eyes: No Eye Pain, No Swelling, No Redness Cardiovascular : No Chest Pain, No SOB, No Dyspnea on Exertion, No Orthopnea, No Edema, No Palpitations Respiratory : No Cough, No Sputum, No Wheezing Gastrointestinal : No Nausea, No Vomiting, No Diarrhea, No Constipation, No abdominal Pain, No Hematochezia, No Melena Genitourinary : No Dysuria, No Urinary Frequency, No Hematuria, Musculoskeletal : No joint pain, No Myalgias, No Joint Swelling Skin : No Skin Lesions, No rash Neuro : No Weakness, No Numbness, pos Dizziness, No Headache Psych : No Anxiety/Panic, No Depression Heme/Lymph: No Bruising, No Bleeding,No Lymphadenopathy Endocrine : No Polyuria, No Polydipsia All other systems reviewed and are negative PMFSH Past Medical History Medical History Amyloidosis Anxiety and depression Arthritis Bladder hypertonicity Chronic atrial fibrillation Chronic HFrEF (heart failure with reduced ejection fraction) Chronic kidney disease (CKD) stage G4/A1, severely decreased glomerular filtration rate (GFR) between 15-29 mL/min/1.73 square meter and albuminuria creatinine ratio less than 30 mg/g Detached retina Gout Heart disease History of breast cancer HTN (hypertension) Hypercholesterolemia Hypothyroid ICD (implantable cardioverter-defibrillator) in place Ischemic cardiomyopathy Kidney disease Nephrolithiasis Osteoarthritis Overweight (BMI 25.0-29.9) Pulmonary hypertension Thumb tendonitis Tricuspid regurgitation Urinary incontinence Surgical History H/O abdominal hysterectomy H/O mitral valve replacement H/O mitral valve replacement with mechanical valve History of bunionectomy History of cataract surgery History of colonoscopy History of left inguinal hernia repair History of sleeve gastrectomy Family History Family History Mother Diabetes Father Past heart attack Diabetes Sister Parkinsons disease Social History Social History Household Members: None Housing: Apartment Do you presently have visiting nurse or other home services: No Alcohol intake: never Second Hand Smoke Exposure: No Advance Directives: No Advance Directives Information Provided: No service: No Current occupational status: disabled Current occupation: left handed Physical Exam Vital Signs: Vital Signs: Last Vital Signs Temp 97.6 F 04/08/21 18:46 Pulse 77 04/08/21 19:41 Resp 20 04/08/21 18:46 BP 115/57 L 04/08/21 19:41 Pulse Ox 97 04/08/21 18:46 Body Mass Index 21.8 Appearance: Alert. Oriented X3. No acute distress. Eyes: Pupils equal, round and reactive to light. ENT: Pharynx normal. Neck: Normal inspection. Neck supple. CVS: Normal heart rate and rhythm. Pulses normal. Respiratory: No respiratory distress. Breath sounds normal. Abdomen: Soft and nontender. Skin: Skin warm and dry. pale skin color. Normal skin turgor. Extremities: trace nonpitting lower extremity edema. No calf ttp Neuro: Oriented X 3. No motor deficit. No sensory deficit. Course Course Course Narrative: elevated INR no bleeding reported H/H stable signed out to Dr. Russell pending labs and CT scan possible PT/CM trop lower than baseline no CP/SOB, CKD at baseline CT head negative will put in PT/CM orders Patient placed in physician observation at 846pm . The indication for observation is that the patient needs more time to see if her dizziness improves and PT/CM input given fall risk and elevated INR. At this time the patient is well developed well nourished, lungs clear, CV RRR, abd nontender, neuro is intact. MDM - Dizziness MDM Narrative Medical decision making narrative: 70 yo female with afib, PPM, CHF, HTN, HLD, anxiety/depression, pulm HTN, triscuspic regurgitation just DC on Thursday following ALIZA on CKD and dizziness - stopped hydralazine and decreased lasix to 20mg daily, reports eating today, no CP/SOB no GIB symptoms at this time labs, UA, CT head for ICH, ortho VS, dispo per results and findings. Lab Data Result diagrams: 04/08/21 19:54 04/08/21 19:54 Labs: Lab Results 04/08/21 04/08/21 04/08/21 Range/Units 19:54 19:54 19:54 WBC 7.4 (4.8-10.8) X10*3/uL RBC 3.48 L (4.20-5.50) X10*6/uL Hgb 9.6 L (12.0-16.0) g/dl Hct 31.0 L (37-47) % MCV 89.1 (80-98) fL MCH 27.6 (27.0-33.0) pg MCHC 31.0 (31.0-35.0) g/dl RDW 19.6 H (11.0-16.0) % Plt Count 157 L (160-400) X10*3/uL MPV 10.6 (9.4-12.3) fL Immature Gran % (Auto) 0.4 (0.0-0.4) % Neut % (Auto) 82.9 H (45-73) % Lymph % (Auto) 6.6 L (20-40) % [place] % (Auto) 8.4 (2-11) % Eos % (Auto) 1.4 (0-4) % Baso % (Auto) 0.3 (0-2) % Lymph # (Auto) 0.5 L (1.2-4.9) X10*3/uL [place] # (Auto) 0.6 (0.1-1.2) X10*3/uL Eos # (Auto) 0.1 (0.0-0.4) X10*3/uL Baso # (Auto) 0.0 (0.0-0.2) X10*3/uL Abs Immat Gran (auto) 0.03 (0.00-0.03) X10*3/uL Absolute Neuts (auto) 6.1 (2.0-8.3) X10*3/uL Absolute Nucleated RBC 0.000 (0.0-0.012) X10*3/uL Nucleated RBC % (auto) 0.0 (0.0-0.2) /100WBC Smear Tech's Comments VERIFIED PT (10.8-13.0) SEC INR (0.9-1.1) APTT (24.1-38.0) SEC Sodium 137 (135-145) mmol/L Potassium 4.8 D (3.3-5.1) mmol/L Chloride 106 (96-108) mmol/L Carbon Dioxide 22 (22-29) mmol/L Anion Gap 14 (12-20) BUN 47 H (9-16) mg/dL Creatinine 2.57 H (0.5-1.4) mg/dL Estim Creat Clear Calc 21.6 Estimated GFR 18 Random Glucose 101 (60-115) mg/dL Calcium 8.3 L (8.4-10.2) mg/dL Total Bilirubin 0.6 (0.0-1.0) mg/dL AST 19 (5-31) U/L ALT 23 (0-31) U/L Alkaline Phosphatase 140 H (39-117) U/L Troponin I High Sens 394.5 H* (<3.5-17.0) ng/L Total Protein 6.4 L (6.5-8.0) g/dL Albumin 3.3 L (3.5-5.0) g/dL Urine Color Urine Appearance Urine pH (5.0-8.0) Ur Specific [place] (1.005-1.025) Urine Protein (NEG-TRACE) MG/DL Urine Glucose (UA) (NEG) MG/DL Urine Ketones (NEG) MG/DL Urine Blood (NEG) Urine Nitrite (NEG) Ur Leukocyte Esterase (NEG) Urine RBC (0) /HPF Urine WBC (0-4) /HPF Ur Squamous Epith Cells /LPF Urine Bacteria /LPF 04/08/21 04/08/21 Range/Units 19:54 19:54 WBC (4.8-10.8) X10*3/uL RBC (4.20-5.50) X10*6/uL Hgb (12.0-16.0) g/dl Hct (37-47) % MCV (80-98) fL MCH (27.0-33.0) pg MCHC (31.0-35.0) g/dl RDW (11.0-16.0) % Plt Count (160-400) X10*3/uL MPV (9.4-12.3) fL Immature Gran % (Auto) (0.0-0.4) % Neut % (Auto) (45-73) % Lymph % (Auto) (20-40) % [place] % (Auto) (2-11) % Eos % (Auto) (0-4) % Baso % (Auto) (0-2) % Lymph # (Auto) (1.2-4.9) X10*3/uL [place] # (Auto) (0.1-1.2) X10*3/uL Eos # (Auto) (0.0-0.4) X10*3/uL Baso # (Auto) (0.0-0.2) X10*3/uL Abs Immat Gran (auto) (0.00-0.03) X10*3/uL Absolute Neuts (auto) (2.0-8.3) X10*3/uL Absolute Nucleated RBC (0.0-0.012) X10*3/uL Nucleated RBC % (auto) (0.0-0.2) /100WBC Smear Tech's Comments PT 76.3 H D (10.8-13.0) SEC INR 6.3 H* D (0.9-1.1) APTT 56.7 H (24.1-38.0) SEC Sodium (135-145) mmol/L Potassium (3.3-5.1) mmol/L Chloride (96-108) mmol/L Carbon Dioxide (22-29) mmol/L Anion Gap (12-20) BUN (9-16) mg/dL Creatinine (0.5-1.4) mg/dL Estim Creat Clear Calc Estimated GFR Random Glucose (60-115) mg/dL Calcium (8.4-10.2) mg/dL Total Bilirubin (0.0-1.0) mg/dL AST (5-31) U/L ALT (0-31) U/L Alkaline Phosphatase (39-117) U/L Troponin I High Sens (<3.5-17.0) ng/L Total Protein (6.5-8.0) g/dL Albumin (3.5-5.0) g/dL Urine Color STRAW Urine Appearance CLEAR Urine pH 6.0 (5.0-8.0) Ur Specific [place] <= 1.005 (1.005-1.025) Urine Protein 2+ H (NEG-TRACE) MG/DL Urine Glucose (UA) NEG (NEG) MG/DL Urine Ketones NEG (NEG) MG/DL Urine Blood TRACE (NEG) Urine Nitrite NEG (NEG) Ur Leukocyte Esterase NEG (NEG) Urine RBC 1-4 (0) /HPF Urine WBC 0-2 (0-4) /HPF Ur Squamous Epith Cells TRACE /LPF Urine Bacteria NONE /LPF ECG Data Attestation: I personally reviewed and interpreted this ECG as follows: ECG interpretation date: 04/08/21 ECG interpretation time: 19:59 Interpretation: Rate: 70 Rhythm: irregular Rives: left Normal QRS complex. ST T wave : no DIO, inverted I and aVL, V5/V6 qTC: normal prior studies: no acute ischemia The study has been interpreted contemporaneously by me. . Discharge Plan Discharge Clinical Impression: Dizziness, Elevated INR, Elevated troponin CKD (chronic kidney disease) Qualifiers: Chronic kidney disease stage: unspecified stage Qualified Code(s): N18.9 - Chronic kidney disease, unspecified Prescriptions: No Action potassium chloride [Klor-Con M20] 20 mEq tablet,ER particles/crystals 20 meq PO DAILY Qty: 90 RF: 5 carvedilol [Coreg] 25 mg tablet 25 mg PO BID 90 Days Qty: 180 RF: 3 aspirin 81 mg tablet,delayed release (DR/EC) 81 mg PO DAILY Qty: 90 RF: 3 diclofenac sodium 1 % gel 4 g topical TID Qty: 400 RF: 11 levothyroxine 137 mcg tablet 137 mcg PO QAM Qty: 90 RF: 3 rosuvastatin [Crestor] 10 mg tablet 10 mg PO DAILY 90 Days Qty: 90 RF: 1 [place] Moist Barrier-Zinc 10-78 % cream 1 appl topical BID Qty: 99 RF: 3 isosorbide dinitrate 5 mg tablet 5 mg PO BID Qty: 180 RF: 3 omeprazole 20 mg capsule,delayed release(DR/EC) 20 mg PO DAILY Qty: 30 RF: 0 omeprazole 20 mg capsule,delayed release(DR/EC) 20 mg PO DAILY Qty: 90 RF: 0 trazodone 50 mg tablet 50 mg PO DAILY PRN (Reason: for insomnia) Qty: 42 RF: 1 furosemide 40 mg tablet 20 mg PO DAILY RF: 0 colchicine 0.6 mg capsule 0.6 mg PO DAILY PRN (Reason: Pain, Severe) Qty: 90 RF: 1 fluoxetine 10 mg capsule 10 mg PO DAILY Qty: 30 RF: 1 PreserVision AREDS-2 [id number] pt-ybtn-cz-mg capsule 1 tab PO BID RF: 0 acetaminophen [Tylenol] 325 mg capsule 325 mg PO QID PRN (Reason: Pain) RF: 0 warfarin 2.5 mg tablet See Rx Instructions mg .ROUTE .COMPLEX Qty: 90 RF: 2 CALCIUM 750 MG VIT D3 750 mg PO DAILY RF: 0 vitamins A,C,T-geaw-glhynw 14,320-226-200 bnct-mo-wzex capsule 1 cap PO BID RF: 0 ferrous sulfate 324 mg (65 mg iron) tablet,delayed release (DR/EC) 324 mg PO BID RF: 0 ascorbic acid (vitamin C) 500 mg capsule, extended release 500 mg PO BID Qty: 60 RF: 5 ch-iw-NB-vit W-ctadp-mfcv-zeax 200-15-150 mcg tablet 1 tab PO DAILY RF: 0 warfarin 5 mg tablet 5 mg PO QWEEK RF: 0 Hold Instructions: USING 2.5MG TAB sennosides 8.6 mg tablet 17.2 mg PO BEDTIME PRN (Reason: Constipation) RF: 0
--- NOTE | 2021-04-08 19:37 | ECG_ITS ---
Test Reason : DIZZINESS Blood Pressure : / mmHG Vent. Rate : 070 BPM Atrial Rate : 000 BPM P-R Int : 000 ms QRS Dur : 092 ms QT Int : 456 ms P-R-T Axes : 000 -05 152 degrees QTc Int : 492 ms Accelerated Junctional rhythm Moderate voltage criteria for LVH, may be normal variant Cannot rule out Septal infarct (cited on or before 22-JAN-2018) T wave abnormality, consider lateral ischemia Abnormal ECG When compared with ECG of 30-MAR-2021 12:31, Junctional rhythm has replaced Atrial fibrillation Referred By: Sharri Reyes Electronically Signed By:Garth Winters
[2021-04-08 19:39] VITALS: BP 108/56; PULSE 78
[2021-04-08 19:40] VITALS: BP 117/60; PULSE 69
[2021-04-08 19:41] VITALS: BP 115/57; PULSE 77
[2021-04-08 20:03] LABS: Basophils Percent Auto 0.3 % (0-2); Eosinophils Absolute Auto 0.1 X10*3/uL (0.0-0.4); Eosinophils Percent Auto 1.4 % (0-4); Hemoglobin 9.6 g/dl (12.0-16.0); Imm Gran Abs Auto 0.03 X10*3/uL (0.00-0.03); Imm Gran Pct Auto 0.4 % (0.0-0.4); Lymphocytes Absolute Auto 0.5 X10*3/uL (1.2-4.9); Lymphocytes Percent Auto 6.6 % (20-40); MANUAL DIFF FLAG SCAN; Mean Corpuscular Hemoglobin 27.6 pg (27.0-33.0); Mean Corpuscular Volume 89.1 fL (80-98); Mean Platelet Volume 10.6 fL (9.4-12.3); Monocytes Absolute Auto 0.6 X10*3/uL (0.1-1.2); Monocytes Percent Auto 8.4 % (2-11); Neutrophils Absolute Auto 6.1 X10*3/uL (2.0-8.3); Neutrophils Percent Auto 82.9 % (45-73); Platelet Count 157 X10*3/uL (160-400); Red Blood Count 3.48 X10*6/uL (4.20-5.50); Red Cell Distribution Width 19.6 % (11.0-16.0); SCAN SMEAR FLAG 1; White Blood Count 7.4 X10*3/uL (4.8-10.8)
[2021-04-08 20:14] LABS: Glucose Urine UA NEG (NEG); Leukocyte Esterase Urine NEG (NEG); Nitrite Urine NEG (NEG); Specific Gravity - Urine <= 1.005 (1.005-1.025); Urine Blood TRACE (NEG); Urine Ketones NEG (NEG); Urine Protein 2+ MG/DL (NEG-TRACE)
[2021-04-08 20:15] LABS: Appearance Urine CLEAR; Color Urine STRAW
[2021-04-08 20:21] LABS: Prothrombin Time 76.3 SEC (10.8-13.0); SLIDE REVIEW VERIFIED
[2021-04-08 20:24] LABS: Squamous Epithelial Cell Urine TRACE /LPF; WBC Urine 0-2 /HPF (0-4)
[2021-04-08 20:28] LABS: INTERNATIONAL NORM RATIO 6.3 (0.9-1.1); Partial Thromboplastin Time 56.7 SEC (24.1-38.0)
[2021-04-08 20:37] LABS: Alanine Aminotransferase 23 U/L (0-31); Albumin Level 3.3 g/dL (3.5-5.0); Alkaline Phosphatase 140 U/L (39-117); Anion Gap 14 (12-20); Aspartate Amino Transferase 19 U/L (5-31); Bilirubin Total 0.6 mg/dL (0.0-1.0); Blood Urea Nitrogen 47 mg/dL (9-16); Calcium 8.3 mg/dL (8.4-10.2); Carbon Dioxide 22 mmol/L (22-29); Chloride 106 mmol/L (96-108); Creatinine Clr Calc Pharmacy 21.6; Estimated Glomerular Filt Rate 18; Glucose Random 101 mg/dL (60-115); Potassium 4.8 mmol/L (3.3-5.1); Sodium 137 mmol/L (135-145); Total Protein 6.4 g/dL (6.5-8.0)
[2021-04-08 20:39] LABS: Troponin-I High Sensitivity 394.5 ng/L (<3.5-17.0)
--- NOTE | 2021-04-08 22:31 | PC.NURSE ---
PT AMBULATORY WITH STEADY GAIT TO BATHROOM. PT UNDERSTANDS SHE IS STAYING TONIGHT AND WILL MEET WITH CASE MANAGEMENT IN THE MORNING. PT REQUESTED AND WAS GIVEN SANDWICH AND SODA.
[2021-04-08 23:13] VITALS: BP 107/57; PULSE 71; RESP 22; O2SAT 97
[2021-04-08] MEDS: LORazepam 1 MG TABLET PO (23:15)
--- NOTE | 2021-04-08 23:54 | PC.NURSE ---
PT REFUSING TO CHANGE INTO HOSPITAL PANTS, INSISTING ON KEEPING HER INCONTINENT BRIEFS AND JEANS ON. PT AGREES TO LET US CHECK HER SKIN, NEXT TIME SHE IS AMBULATORY TO BATHROOM. PT REPORTS SHE HAS DEVELOPED PRESSURE ULCERS IN THE PAST. PT ALSO REFUSING A HOSPITAL BED FOR COMFORT.
[2021-04-09 00:11] LABS: COVID-19 Test Negative (Negative); IDNOW Serial# 9DD0AD1C
--- NOTE | 2021-04-09 01:37 | PC.NURSE ---
PT AMBULATORY TO BATHROOM, STEADY GAIT WITH USE OF WALKER. PT WILL NOT CHANGE OUT OF JEJOHNIE, BUT DID ALLOW THIS RN TO EXAMINE HER SKIN ON BUTTOCK FOR ANY SKIN BREAKDOWN. PT HAS 2 SMALL ROUND RED AREAS ON BUTTOCKS, NO OPEN SKIN. TO ENCOURAGED TO REPOSITION FROM SIDE TO SIDE, AND TRY AND STAY OFF OF HER BACK WHILE SLEEPING. PT ENCOURAGED TO USE CALL BADILLO FOR ASSISTANCE AMBULATING TO BATHROOM.
[2021-04-09 03:36] VITALS: PULSE 70; RESP 20
[2021-04-09 06:42] VITALS: PULSE 71; RESP 16; O2SAT 97
[2021-04-09] MEDS: Levothyroxine Sodium 112 MCG, Levothyroxine Sodium 25 MCG 137 MCG PO (06:42)
--- NOTE | 2021-04-09 07:44 | PC.NURSE ---
report taken from Luz Marina MENJIVAR. pt in room, resting comfortably with eyes closed. pt awaiting case management bed placement
--- NOTE | 2021-04-09 09:37 | MHC.CM.ED ---
Received case management consult overnight. Patient came to ER due to dizziness. INR found to be elevated. No evidence of bleeding to be found. Physical therapy eval is pending. Received notification from Dr Reyes that patient is declining short term rehab at this time and wants to go home. Met with patient in regards to discharge planning. Patient lives with her brother, ambulates with a walker and is active with [facility]. PCP verified. HCP verified to be on file. Patient received 2 doses of Pfizer vaccine. Last dose was on 12/25/20. Patient's brother will transport her home. Patient verbalizes understanding that she will have to hold her Coumadin until advised to restart it. Patient is active with [facility] [place]. Spoke with Archana at [facility]. She will notify patient's cna caregiver of ER visit and will authorize Leroy STEWART. Referral made via [employer]. Patient, Dr Reyes and Danyell MENJIVAR aware. Continue to monitor for d/c needs.
[2021-04-09 09:52] VITALS: PULSE 71; O2SAT 97
[2021-04-09 10:00] VITALS: BP 115/60; PULSE 72; RESP 20; O2SAT 97
[2021-04-09] MEDS: Potassium Chloride ER 20 MEQ TAB.ER.PRT PO (10:08)
[2021-04-09 10:09] VITALS: BP 115/60; PULSE 72
[2021-04-09] MEDS: Isosorbide Dinitrate 5 MG TABLET PO (10:09)
[2021-04-09] MEDS: Calcium + Vitamin D 250 MG TABLET 750 MG PO (10:09)
[2021-04-09] MEDS: Furosemide 20 MG TABLET PO (10:09)
[2021-04-09] MEDS: Omeprazole 20 MG CAPSULE.DR PO (10:09)
[2021-04-09 10:10] VITALS: BP 115/60; PULSE 72
[2021-04-09] MEDS: Atorvastatin Calcium 40 MG TABLET PO (10:10)
[2021-04-09] MEDS: FLUoxetine HCl 10 MG CAPSULE PO (10:10)
[2021-04-09] MEDS: Ferrous Sulfate 324 MG TABLET.DR PO (10:10)
[2021-04-09] MEDS: carvediloL 25 MG TABLET PO (10:10)
[2021-04-09] MEDS: Ascorbic Acid 500 MG TABLET PO (10:10)
== END 2021-04-09 12:31 | disposition home or self-care (01) ==
PROVIDERS: Internal Medicine; Emergency Provider Emergency Medicine; PCP Internal Medicine
DX: R42 Dizziness and giddiness (principal); R79.1 Abnormal coagulation profile; R77.8 Other specified abnormalities of plasma proteins; I13.0 Hypertensive heart and chronic kidney disease with heart failure and stage 1 through stage 4 chronic kidney disease, or unspecified chronic kidney disease; I50.22 Chronic systolic (congestive) heart failure; N18.4 Chronic kidney disease, stage 4 (severe); E78.5 Hyperlipidemia, unspecified; I48.91 Unspecified atrial fibrillation; F41.9 Anxiety disorder, unspecified; I25.5 Ischemic cardiomyopathy; Z85.3 Personal history of malignant neoplasm of breast; Z95.810 Presence of automatic (implantable) cardiac defibrillator; Z95.2 Presence of prosthetic heart valve; Z98.84 Bariatric surgery status; Z90.710 Acquired absence of both cervix and uterus; Z79.01 Long term (current) use of anticoagulants; Z79.82 Long term (current) use of aspirin; Z79.899 Other long term (current) drug therapy
CPT/HCPCS: 36415; 70450; 80053; 81001; 81003; 84484; 85025; 85610; 85730; 87635; 93005; 97162; 99284; 99285

== ENCOUNTER → 2021-04-09 10:20 | Outpatient (BNVA) | payer MEDICARE, SELFPAY | PROVIDERS: PCP Internal Medicine; Visit Provider Internal Medicine | DX: Z13.89 Encounter for screening for other disorder (principal) | CPT/HCPCS: Q3014 ==

== ENCOUNTER → 2021-04-10 15:47 | Outpatient (BNVA) | payer MEDICARE, SELFPAY | PROVIDERS: PCP Internal Medicine; Visit Provider Internal Medicine | DX: Z13.89 Encounter for screening for other disorder (principal) | CPT/HCPCS: Q3014 ==

== ENCOUNTER → 2021-04-11 10:45 | Outpatient (BNVA) | payer MEDICARE, SELFPAY | PROVIDERS: PCP Internal Medicine; Visit Provider Internal Medicine | DX: Z13.89 Encounter for screening for other disorder (principal) | CPT/HCPCS: Q3014 ==

== ENCOUNTER 2021-04-12 15:52 | Outpatient (REF) | payer MEDICARE, SELFPAY ==
[2021-04-12 16:55] LABS: Basophils Percent Auto 0.3 % (0-2); Eosinophils Absolute Auto 0.1 X10*3/uL (0.0-0.4); Eosinophils Percent Auto 1.4 % (0-4); Hematocrit 34.6 % (37-47); Hemoglobin 10.5 g/dl (12.0-16.0); Imm Gran Abs Auto 0.02 X10*3/uL (0.00-0.03); Imm Gran Pct Auto 0.3 % (0.0-0.4); Lymphocytes Absolute Auto 0.6 X10*3/uL (1.2-4.9); Lymphocytes Percent Auto 8.3 % (20-40); MANUAL DIFF FLAG SCAN; Mean Corpuscular HGB Conc 30.3 g/dl (31.0-35.0); Mean Corpuscular Hemoglobin 27.3 pg (27.0-33.0); Mean Corpuscular Volume 89.9 fL (80-98); Mean Platelet Volume 11.5 fL (9.4-12.3); Monocytes Absolute Auto 0.6 X10*3/uL (0.1-1.2); Neutrophils Absolute Auto 5.7 X10*3/uL (2.0-8.3); Neutrophils Percent Auto 81.7 % (45-73); Platelet Count 156 X10*3/uL (160-400); Red Blood Count 3.85 X10*6/uL (4.20-5.50); Red Cell Distribution Width 19.5 % (11.0-16.0); SCAN SMEAR FLAG 1
[2021-04-12 17:06] LABS: B Type Natriuretic Peptide 702 pg/mL (<100)
[2021-04-12 17:13] LABS: Alanine Aminotransferase 18 U/L (0-31); Albumin Level 3.4 g/dL (3.5-5.0); Alkaline Phosphatase 135 U/L (39-117); Anion Gap 15 (12-20); Aspartate Amino Transferase 19 U/L (5-31); Bilirubin Total 0.9 mg/dL (0.0-1.0); Blood Urea Nitrogen 49 mg/dL (9-16); Calcium 8.7 mg/dL (8.4-10.2); Carbon Dioxide 21 mmol/L (22-29); Chloride 109 mmol/L (96-108); Estimated Glomerular Filt Rate 22; Glucose Random 102 mg/dL (60-115); Potassium 5.1 mmol/L (3.3-5.1); Sodium 140 mmol/L (135-145); Total Protein 6.7 g/dL (6.5-8.0)
[2021-04-12 17:18] LABS: SLIDE REVIEW VERIFIED
== END 2021-04-12 15:53 | disposition home or self-care (01) ==
LOC: HO.LAB 15:52
PROVIDERS: PCP Internal Medicine; Visit Provider Internal Medicine
DX: R10.11 Right upper quadrant pain (principal); I25.5 Ischemic cardiomyopathy
CPT/HCPCS: 36415; 80053; 83880; 85025

== ENCOUNTER 2021-04-15 12:48 | Outpatient (REF) | payer MEDICARE, SELFPAY ==
[2021-04-15 13:44] LABS: Basophils Percent Auto 0.4 % (0-2); Eosinophils Absolute Auto 0.1 X10*3/uL (0.0-0.4); Eosinophils Percent Auto 1.2 % (0-4); Hematocrit 31.9 % (37-47); Hemoglobin 9.7 g/dl (12.0-16.0); Imm Gran Abs Auto 0.03 X10*3/uL (0.00-0.03); Imm Gran Pct Auto 0.4 % (0.0-0.4); Lymphocytes Absolute Auto 0.5 X10*3/uL (1.2-4.9); Lymphocytes Percent Auto 7.2 % (20-40); MANUAL DIFF FLAG SCAN; Mean Corpuscular HGB Conc 30.4 g/dl (31.0-35.0); Mean Corpuscular Hemoglobin 27.3 pg (27.0-33.0); Mean Corpuscular Volume 89.9 fL (80-98); Mean Platelet Volume 11.3 fL (9.4-12.3); Monocytes Absolute Auto 0.5 X10*3/uL (0.1-1.2); Monocytes Percent Auto 7.6 % (2-11); Neutrophils Absolute Auto 5.7 X10*3/uL (2.0-8.3); Neutrophils Percent Auto 83.2 % (45-73); Platelet Count 137 X10*3/uL (160-400); Red Blood Count 3.55 X10*6/uL (4.20-5.50); Red Cell Distribution Width 19.2 % (11.0-16.0); SCAN SMEAR FLAG 1; White Blood Count 6.8 X10*3/uL (4.8-10.8)
[2021-04-15 14:05] LABS: Alanine Aminotransferase 20 U/L (0-31); Albumin Level 3.3 g/dL (3.5-5.0); Alkaline Phosphatase 118 U/L (39-117); Anion Gap 11 (12-20); Aspartate Amino Transferase 22 U/L (5-31); Bilirubin Total 0.9 mg/dL (0.0-1.0); Blood Urea Nitrogen 49 mg/dL (9-16); Calcium 8.5 mg/dL (8.4-10.2); Carbon Dioxide 21 mmol/L (22-29); Chloride 109 mmol/L (96-108); Estimated Glomerular Filt Rate 19; Glucose Random 91 mg/dL (60-115); Sodium 136 mmol/L (135-145); Total Protein 6.2 g/dL (6.5-8.0)
[2021-04-15 14:08] LABS: SLIDE REVIEW VERIFIED
== END 2021-04-15 12:49 | disposition home or self-care (01) ==
LOC: HO.LAB 12:48
PROVIDERS: Absent Provider Internal Medicine; PCP Internal Medicine; Visit Provider Internal Medicine Medical Oncology
DX: N18.4 Chronic kidney disease, stage 4 (severe) (principal)
CPT/HCPCS: 36415; 80053; 85025

== ENCOUNTER → 2021-04-17 14:39 | Outpatient (BNVA) | payer MEDICARE, SELFPAY | PROVIDERS: PCP Internal Medicine; Referring Provider Internal Medicine; Visit Provider Surgery | DX: Z85.3 Personal history of malignant neoplasm of breast (principal) | CPT/HCPCS: 99212 ==

== ENCOUNTER → 2021-04-18 10:20 | Outpatient (BNVA) | payer MEDICARE, SELFPAY | PROVIDERS: PCP Internal Medicine; Visit Provider Internal Medicine | DX: Z95.2 Presence of prosthetic heart valve (principal) | CPT/HCPCS: Q3014 ==

== ENCOUNTER 2021-04-19 13:59 | Outpatient (REF) | payer MEDICARE, SELFPAY ==
--- NOTE | ~2021-04-19 | MM_ITS ---
EXAMINATION: MM SCREENING DIGITAL MAMMOGRAPHY, BILATERAL CLINICAL INFORMATION: Screening. Asymptomatic. Prior history left lumpectomy for breast cancer, 2008. COMPARISON: Mammography: 01/24/2019, 12/14/2017, 10/27/2016 TECHNIQUE: Digital mammography is performed in craniocaudal and mediolateral oblique views along with computer-aided detection (CAD). Additional exaggerated left CC view is provided. FINDINGS: There are scattered areas of fibroglandular density (ACR BI-RADS breast composition Category b). Left breast has post therapy changes with reduced breast size and stable scarring. There is no interval mass or developing density or architectural abnormality. Scattered vascular calcifications are again noted. No significant changes from prior studies. Right breast shows no interval mass or architectural abnormality. Again, there are scattered coarse and vascular calcifications. The right CC view demonstrates new punctate calcifications central breast. There is no MLO correlate. However, subtle blurring on the MLO projection which may obscure the calcifications. Patient will be recalled for additional imaging with magnification views. MM/MM screening mammo BI IMPRESSION: 1. Right: New calcifications central breast on CC view without MLO correlate. 2. Left: No mammographic evidence of malignancy. Post therapy changes similar to prior studies. ASSESSMENT: BI-RADS 0: Incomplete - Need Additional Imaging Evaluation RECOMMENDATION: 1. Additional views of the right breast (magnification CC, magnification ML upper and lower). 2. Targeted ultrasound if warranted after review of the additional views. 3. Radiology department staff will contact the patient for additional imaging. This patient's information was entered into a reminder system with a target due date for their next mammogram.
== END 2021-04-19 14:00 | disposition home or self-care (01) ==
LOC: HO.MAMMO 13:59
PROVIDERS: Visit Provider Internal Medicine
DX: Z12.31 Encounter for screening mammogram for malignant neoplasm of breast (principal)
CPT/HCPCS: 77067

== ENCOUNTER 2021-04-23 13:59 | Outpatient (REF) | payer MEDICARE, SELFPAY ==
[2021-04-23 15:01] LABS: MANUAL DIFF FLAG NO
[2021-04-23 15:07] LABS: Basophils Percent Auto 0.3 % (0-2); Eosinophils Absolute Auto 0.1 X10*3/uL (0.0-0.4); Eosinophils Percent Auto 0.8 % (0-4); Hematocrit 33.2 % (37-47); Hemoglobin 10.3 g/dl (12.0-16.0); Imm Gran Abs Auto 0.03 X10*3/uL (0.00-0.03); Imm Gran Pct Auto 0.4 % (0.0-0.4); Lymphocytes Absolute Auto 0.4 X10*3/uL (1.2-4.9); Lymphocytes Percent Auto 5.3 % (20-40); Mean Corpuscular Hemoglobin 28.1 pg (27.0-33.0); Mean Corpuscular Volume 90.7 fL (80-98); Mean Platelet Volume 11.6 fL (9.4-12.3); Monocytes Absolute Auto 0.6 X10*3/uL (0.1-1.2); Monocytes Percent Auto 8.2 % (2-11); Neutrophils Absolute Auto 6.6 X10*3/uL (2.0-8.3); Platelet Count 163 X10*3/uL (160-400); Red Blood Count 3.66 X10*6/uL (4.20-5.50); White Blood Count 7.7 X10*3/uL (4.8-10.8)
[2021-04-23 15:14] LABS: Glucose Urine UA NEG (NEG); Leukocyte Esterase Urine 1+ (NEG); Nitrite Urine NEG (NEG); Urine Blood TRACE (NEG); Urine Ketones NEG (NEG); Urine Protein 3+ MG/DL (NEG-TRACE)
[2021-04-23 15:22] LABS: Appearance Urine CLEAR; Color Urine STRAW
[2021-04-23 15:29] LABS: Bacteria Urine 2+ /LPF; Squamous Epithelial Cell Urine 2+ /LPF
[2021-04-23 15:33] LABS: Alanine Aminotransferase 20 U/L (0-31); Albumin Level 3.2 g/dL (3.5-5.0); Alkaline Phosphatase 127 U/L (39-117); Anion Gap 14 (12-20); Aspartate Amino Transferase 20 U/L (5-31); Bilirubin Total 0.8 mg/dL (0.0-1.0); Blood Urea Nitrogen 47 mg/dL (9-16); Calcium 8.4 mg/dL (8.4-10.2); Carbon Dioxide 21 mmol/L (22-29); Chloride 107 mmol/L (96-108); Estimated Glomerular Filt Rate 20; Glucose Random 95 mg/dL (60-115); Potassium 5.1 mmol/L (3.3-5.1); Sodium 137 mmol/L (135-145); Total Protein 6.3 g/dL (6.5-8.0)
== END 2021-04-23 14:00 | disposition home or self-care (01) ==
LOC: HO.LAB 13:59
PROVIDERS: Internal Medicine; PCP Internal Medicine; Visit Provider Internal Medicine
DX: I50.22 Chronic systolic (congestive) heart failure (principal); N18.4 Chronic kidney disease, stage 4 (severe); I48.0 Paroxysmal atrial fibrillation; Z51.81 Encounter for therapeutic drug level monitoring; Z79.01 Long term (current) use of anticoagulants
CPT/HCPCS: 36415; 80053; 81001; 85025; 99211

== ENCOUNTER 2021-04-25 13:00 | Outpatient (RCR) | payer MEDICARE, SELFPAY ==
[2021-03-13 08:17] VITALS: BP 115/69; PULSE 86
--- NOTE | 2021-03-13 11:40 | MHC.PT.EP ---
[facility] [place] Office [place] Office [place] Office [address] [phone] F: [phone] F: [phone] F: [phone] F: [phone] Physical Therapy Plan of Care Date of Evaluation: Date of Surgery: NA Diagnosis: LOW BACK PAIN Assessment: SONG ARRIVES WITH PAIN IN MULTIPLE JOINTS, MOST RECENTLY HER BACK PAIN HAS BEEN INCREASING. IMPAIRMENTS FOUND UPON EVAL INCLUDE DECREASED LOW BACK, HIP AND LE STRENGTH AND MOBILITY (MOST NOTABLY IN RIGHT KNEE), DECREASED SOFT TISSUE MOBILITY, ALTERED POSTURE AND POSITIONING AND INCREASED PAIN. FUNCTIONAL LIMITATIONS INCLUDED DECREASED TOLERANCE TO XFERS AND GAIT, DECREASED ABILITY TO PERFORM HOMEMAKING AND SELF CARE TASKS,DECREASED TOLERANCE TO COMMUNITY AMBULATION AND PARTICIPATION IN COMMUNITY ACTIVITIES, DISRUPTED SLEEP Frequency and Duration: The patient will be seen 2 X WEEK FOR 4 WEEKS Short Term Goals: INCREASE KNEE EXTENSION TO LACKING NO GREATER THAN 20 DEGREES IN 2 WEEKS Pill Packer Goals: FULL PAIN FREE KNEE ROM IN 4 WEEKS LE STRENGTH AT MINIMUM 4/5 T/O IN 4 WEEKS GAIT WITH FULL KNEE EXTENSION AT HEEL STRIKE AND IMPROVED POSTURAL AWARENESS IN 4 WEEKS INDEPENDENT HEP IN 4 WEEKS Treatment Plan: Modalities to reduce pain, spasms and effusion. Manual therapy to restore motion and function. Therapeutic exercise to improve strength and flexibility. Neuromuscular re-education for posture and balance. Therapeutic activities to return to functional activities of daily living. Electronically signed by: BEV LION PT, DPT Please sign and return to therapist. Thank you for your referral.
--- NOTE | 2021-06-18 11:53 | MHC.PT.DC ---
[facility] [place] Office [place] [facility] [place] Office [address] [phone] F: [phone] F: [phone] F: [phone] F: [phone] Physical Therapy Discharge Report Diagnosis: LOW BACK PAIN Date of Surgery: NA Date of Evaluation: 03/12/21 Date of Discharge: 05/09/21 Treatments to Date: 4 Cancellations to Date: 5 No Shows to Date: 0 Discharge Status: Recommend MD Follow-up Discharge Summary: [place] has had multiple cancellations for unrelated health issues. Per note 05/21/21 addendum 05/21/21: [place] has had multiple ed admits for various complaints. arrives today following ED admit for pancreatitis and another episode of dizziness. Her H&H, RBC counts are low today and bp is 100/51. We are holding any additional PT until MD follow up. Electronically signed by: Shruti Daugherty PT, DPT Please sign and return to therapist. Thank you for your referral.
== END 2021-06-18 11:54 | disposition home or self-care (01) ==
LOC: HO.PT 13:00
PROVIDERS: PCP Internal Medicine; Visit Provider Internal Medicine
DX: M54.5 Low back pain (principal)
CPT/HCPCS: 85610; 97110; 97140; 97163; 99211

== ENCOUNTER 2021-04-26 08:13 | Outpatient (REF) | payer MEDICARE, SELFPAY ==
--- NOTE | ~2021-04-26 | MM_ITS ---
EXAMINATION: MM DIAGNOSTIC DIGITAL MAMMOGRAPHY, RIGHT CLINICAL INFORMATION: Recall from screening for new calcifications central breast on CC view without MLO correlate. Prior history left lumpectomy for breast cancer 2008. COMPARISON: Mammography: 04/19/2021, 01/24/2019 TECHNIQUE: Digital mammography is performed in the following views: Magnification CC, magnification ML x2 FINDINGS: There are scattered areas of fibroglandular density (ACR BI-RADS breast composition Category b). The additional magnification views confirm scattered isolated and some small tight groups of uniform punctate round and some rim calcifications. They are distributed upper to lower quadrant on the ML views. There is no segmental or ductal distribution. No pleomorphic types. No focal suspicious calcifications. Results are provided to the patient at time of visit by the technologist. The calcifications are probably benign and will be reassessed again in 6 months to include magnification views. MM/MM added views RT IMPRESSION: Probable benign scattered calcifications anterior right breast. ASSESSMENT: BI-RADS 3: Probably Benign RECOMMENDATION: Diagnostic right mammography in 6 months. This patient's information was entered into a reminder system with a target due date for their next mammogram.
== END 2021-04-26 08:14 | disposition home or self-care (01) ==
LOC: HO.MAMMO 08:13
PROVIDERS: Visit Provider Internal Medicine
DX: R92.1 Mammographic calcification found on diagnostic imaging of breast (principal)
CPT/HCPCS: 77065

== ENCOUNTER 2021-04-29 09:23 | Emergency (ER) | payer MEDICARE, SELFPAY ==
--- NOTE | ~2021-04-29 | XR_ITS ---
EXAMINATION: XR CHEST CLINICAL INFORMATION: Dizziness COMPARISON: None TECHNIQUE: 2 views of the chest were obtained. FINDINGS: Cardiomegaly with increased pulmonary vascularity suggestive of mild congestion. There is a solitary pacer electrode in the right ventricle. There is evidence of previous CABG and median sternotomy sutures from previous intervention. No gross bony abnormality seen. XR/XR chest 2V IMPRESSION: Cardiomegaly with CHF. Evidence of previous CABG.
--- NOTE | ~2021-04-29 | CT_ITS ---
EXAMINATION: CT HEAD WITHOUT CONTRAST CLINICAL INFORMATION: Dizziness. COMPARISON: CT brain 04/08/2021 TECHNIQUE: Contiguous axial imaging was performed from the skull base to vertex without intravenous administration of contrast. This CT examination was performed using dose optimization techniques as appropriate, variously including the following: *Automated exposure control *Adjustment of mA and/or kV according to patient size (this includes techniques or standardized protocols for targeted exams where dose is matched to indication/reason for exam; i.e. extremities or head) *Use of iterative reconstruction technique DLP: 665 mGy-cm FINDINGS: There is no evidence of acute intracranial hemorrhage or territorial infarction. No abnormal mass effect or midline shift is seen. [place] to white matter differentiation is well preserved. No extra-axial fluid collections are identified. The ventricles are normal in size. There is no abnormal attenuation within the brain parenchyma. There is benign hyperostosis frontalis interna The osseous structures and soft tissues are normal. The mastoid air cells and visualized portions of the paranasal sinuses are well aerated. There is a new finding of a small shrunken calcified left eyeball/phthisis bulbi is noted CT/CT head/brain wo con IMPRESSION: No acute intracranial process seen.
[2021-04-29 09:34] VITALS: BP 129/73; PULSE 87; RESP 16; TEMP 36.7; O2SAT 98; BMI 21.9
--- NOTE | 2021-04-29 09:39 | ECG_ITS ---
Test Reason : DIZZINESS Blood Pressure : / mmHG Vent. Rate : 080 BPM Atrial Rate : 250 BPM P-R Int : 000 ms QRS Dur : 088 ms QT Int : 434 ms P-R-T Axes : 000 -08 188 degrees QTc Int : 500 ms Atrial fibrillation Minimal voltage criteria for LVH, may be normal variant Septal infarct (cited on or before 22-JAN-2018) Cannot rule out lateral infarct Abnormal ECG When compared with ECG of 08-APR-2021 19:50, Atrial fibrillation has replaced Junctional rhythm Referred By: Raquel Grimes Electronically Signed By:Garth Winters
--- NOTE | 2021-04-29 09:45 | ED_ITS ---
HPI - Dizziness General Chief Complaint: Dizziness Stated Complaint: nausea,dizziness Time Seen by Provider: 04/29/21 09:26 Source: patient Mode of arrival: ambulatory Limitations: no limitations History of Present Illness HPI Narrative: 70 yo female with afib on coumadin, PPM/ICD, CHF, HTN, HLD, anxiety/depression, pulm HTN, triscuspic regurgitation, CKD, hypothyroidism, amyloidosis under hematology oncology, history of mitral valve replacement, ischemic cardiomyopathy, congestive heart failure, history of breast cancer here with complaints of dizziness with position changes (described as lightheaded) with associated nausea noted this morning with waking. No MOTLEY, chest pain, sob, vision changes Related Data Home Medications Medication Instructions Recorded Confirmed acetaminophen 325 mg capsule 325 mg PO QID PRN 08/06/20 04/17/21 vit C 250 mg-vit E 90 mg-zinc 40 1 tab PO BID 08/06/20 04/17/21 mg-copper 1 dl-[id number] capsule ferrous sulfate 324 mg (65 mg 324 mg PO BID 11/05/20 04/17/21 iron) tablet,delayed release CALCIUM 750 MG VIT D3 750 mg PO DAILY 01/21/21 04/17/21 sennosides 8.6 mg tablet 17.2 mg PO BEDTIME PRN 02/05/21 04/17/21 furosemide 40 mg tablet 20 mg PO DAILY tab 04/03/21 04/17/21 melatonin 3 mg tablet 3 mg PO BEDTIME PRN 04/11/21 04/17/21 Previous Rx's Medication Instructions Recorded warfarin 2.5 mg tablet See Rx Instructions .ROUTE 08/21/20 .COMPLEX #90 tab potassium chloride 20 mEq 20 meq PO DAILY #90 tab 08/28/20 tablet,extended release(part/cryst) carvedilol 25 mg tablet 25 mg PO BID 90 Days #180 tab 09/05/20 aspirin 81 mg tablet,delayed 81 mg PO DAILY #90 tab 09/17/20 release diclofenac sodium 1 % topical gel 4 g TOPICAL TID #400 g 10/23/20 levothyroxine 137 mcg tablet 137 mcg PO QAM #90 tab 11/07/20 rosuvastatin 10 mg tablet 10 mg PO DAILY 90 Days #90 tab 11/12/20 ascorbic acid (vitamin C) 500 mg PO BID #60 cap 01/03/21 isosorbide dinitrate 5 mg tablet 5 mg PO BID #180 tab 02/28/21 colchicine 0.6 mg capsule 0.6 mg PO DAILY PRN #90 cap 03/26/21 trazodone 50 mg tablet 50 mg PO DAILY PRN #42 tab 04/07/21 fluoxetine 10 mg capsule 10 mg PO DAILY #30 cap 04/17/21 omeprazole 20 mg capsule,delayed 20 mg PO DAILY #90 cap 04/26/21 release meclizine 25 mg PO TID PRN #5 tab 04/29/21 Allergies Allergy/AdvReac Type Severity Reaction Status Date / Time TAPE,PAPER Allergy Unknown RASH TO Uncoded 04/08/21 18:46 PAPER TAPE Review of Systems Review of Systems: Yes all other systems are reviewed and are negative Constitutional: Constitutional: Reports no additional constitutional c omplaints, Denies body ache(s), Denies chills, Denies fever(s), Denies headache(s) and Denies weakness Eyes: Eyes: Reports no additional eye complaints and Denies change in vision ENT: Reports system reviewed and no additional complaints, except as documented, Reports dizziness, Denies headache(s), Denies nasal congestion, Denies nasal discharge and Denies neck pain Cardiovascular: Cardiovascular: Reports no additional cardiovascular complaints, Denies chest pain, Denies leg edema and Denies dyspnea Respiratory: Respiratory: Reports no additional respiratory complaints, Denies cough and Denies dyspnea Gastrointestinal: Gastrointestinal: Reports no additional gastrointestinal complaints, Denies abdominal pain, Denies diarrhea, Reports nausea and Denies vomiting Genitourinary: Genitourinary: Reports no additional female genitourinary complaints and Denies urinary incontinence Musculoskeletal: Musculoskeletal: Reports no additional musculoskeletal complaints, Denies back pain, Denies arthralgias, Denies joint swelling, Denies neck pain, Denies numbness and Denies tingling Integumentary/Breasts: Skin/Breast: Reports system reviewed and no additional complaints, except as docu and Denies rash Neurologic: Reports system reviewed and no additional complaints, except as documented, Denies Abnormal speech present, Reports dizziness, Denies headache(s), Denies numbness, Denies tingling and Denies weakness PMFSH Past Medical History Attestation statement: The following information was validated with the patient. Source: old records reviewed and nursing notes reviewed Medical History Amyloidosis Anxiety and depression Arthritis Bladder hypertonicity Chronic atrial fibrillation Chronic HFrEF (heart failure with reduced ejection fraction) Chronic kidney disease (CKD) stage G4/A1, severely decreased glomerular filtration rate (GFR) between 15-29 mL/min/1.73 square meter and albuminuria creatinine ratio less than 30 mg/g Detached retina Gout Heart disease History of breast cancer History of breast cancer HTN (hypertension) Hypercholesterolemia Hypothyroid ICD (implantable cardioverter-defibrillator) in place Ischemic cardiomyopathy Kidney disease Nephrolithiasis Osteoarthritis Overweight (BMI 25.0-29.9) Pulmonary hypertension Thumb tendonitis Tricuspid regurgitation Urinary incontinence Surgical History H/O abdominal hysterectomy H/O mitral valve replacement H/O mitral valve replacement with mechanical valve History of bunionectomy History of cataract surgery History of colonoscopy History of left inguinal hernia repair History of sleeve gastrectomy Family History Family History Mother Diabetes Father Past heart attack Diabetes Sister Parkinsons disease Social History Social History Household Members: None Housing: Apartment Do you presently have visiting nurse or other home services: No Alcohol intake: never Smoked in Last 30 Days: No Second Hand Smoke Exposure: No Use of substances other than those prescribed or required for medical reasons: No Advance Directives: Yes Advance Directives Information Provided: No Advance Directives on File: No service: No Current occupational status: disabled Current occupation: left handed Physical Exam Vital Signs: Vital Signs: Last Vital Signs Temp 97.9 F 04/29/21 11:06 Pulse 78 04/29/21 12:17 Resp 18 04/29/21 12:17 BP 109/60 04/29/21 12:17 Pulse Ox 98 04/29/21 12:17 Body Mass Index 21.9 Const: General: cooperative, healthy appearing, comfortable and no acute distress Orientation/consciousness: patient oriented x3 Limitations: no limitations HENMT: Head: Yes normal to inspection Ears: hearing grossly normal bilaterally General nose exam: Normal external nose present Face and sinus: Yes normal facial exam Mouth: Normal oral and palatal mucosa present Throat: Yes posterior oropharynx normal Eyes: General: appearance normal, both eyes and all related structures Pupils: Equal, round and reactive pupils present Neck: Neck: Yes normal visual inspection Chest: Chest palpation & inspection: normal inspection of the chest Resp: Effort & Inspection: normal respiratory effort Auscultation: clear to auscultation bilaterally Cardio: Rate: regular rate Rhythm: regular rhythm Peripheral pulses: Peripheral pulses 2+ throughout GI: Inspection: Yes normal to inspection Palpation (GI): Soft to palpation and nontender Auscultation: normal bowel sounds Back/Spine/Pelvis: Thoracic/Lumbar Spine: thoracic and lumbar spine normal to inspection Skin: General skin exam: no rashes or lesions noted Neuro: General: patient oriented x3, no focal motor deficits and normal sensation to monofilament Cranial nerves: Yes CN's II-XII intact bilaterally, Yes Equal, round and reactive pupils present, Yes Bilaterally intact EOM present, Yes Nystagmus not present, Yes Normal facial strength present, Yes Midline tongue present and Yes Normal gag reflex present Cognition (Neuro): normal cognition Speech: No Abnormal speech present Gait exam (Neuro): Normal gait present Motor exam (neuro): 5/5 motor strength present throughout Sensory Exam: Normal double simultaneous stimulation for sensation Coordination: oaofwp-[id number] test normal, flom-ly-zska test normal and tandem gait normal Extrem: General: Yes normal to inspection Course Course Course Narrative: 70-year-old female here with awaking with dizziness described as lightheadedness worsened with position changes with associated nausea. Hemodynamically stable. Normal neuro exam. History of similar with previous admissions secondary to ALIZA. Will check labs, EKG, chest x-ray, orthostatic vital signs, urine, CT head 1030-x-rays consistent with congestive heart failure. No pedal edema or shortness of breath or cough. No hypoxia or hypertension. Patient has been compliant with 20 mg of Lasix daily with no reports of weight gain. Add on BNP. Will follow 1125-initial troponin elevated. Chronically elevated secondary to chronic kidney disease. Will plan for repeat 3 hour troponin. No chest pain or EKG change 1150-imaging unremarkable. Renal function at baseline. Patient tells me dizziness and nausea improved after receiving a dose of meclizine and zofran. Tolerated apple juice. Pending repeat troponin. 1330-repeat troponin delta. Patient tolerated a sandwich, crackers and additional apple juice with no reports of nausea or vomiting. She tells me her dizziness is resolved. She ambulated with a steady gait with her walker with a pulse oximeter of greater than 96% and no shortness of breath of chest pain. We discussed that her BNP is mildly elevated but she has no clinical s/s of CHF. She will continue her lasix at home, follow a low sodium diet and has a scheduled appt with Dr Estrella on Thursday. In the meantime she will return for any sob, chest pain, cough, leg swelling. Comfortable with discharge home. MDM - Dizziness MDM Narrative Medical decision making narrative: Electrolyte abnormality, acute kidney injury, ACS, underlying infection (pneumonia, UTI), vertigo, CVA vs ICH Less likely ACS with no ischemic changes, no chest pain and unchanged troponin x 2 which is chronically elevated likely secondary to CKD. Unable to provide urine sample during ED stay. Denies symptoms. Did not want to remain in ED to provide sample prior to dispo. Less likely CVA with no focal neurological deficit and improving exam with PO meclizine. More c/w with vertigo. Differential Diagnosis Differential diagnosis: Likely orthostatic hypotension Medical Records Attestation: I reviewed the patient's medical records. Lab Data Attestation: I reviewed the patient's lab results. Result diagrams: 04/29/21 09:49 04/29/21 09:49 Labs: Lab Results 04/29/21 04/29/21 04/29/21 Range/Units 09:49 09:49 09:49 WBC 6.0 (4.8-10.8) X10*3/uL RBC 3.58 L (4.20-5.50) X10*6/uL Hgb 10.0 L (12.0-16.0) g/dl Hct 32.8 L (37-47) % MCV 91.6 (80-98) fL MCH 27.9 (27.0-33.0) pg MCHC 30.5 L (31.0-35.0) g/dl RDW 19.5 H (11.0-16.0) % Plt Count 122 L D (160-400) X10*3/uL MPV 10.7 (9.4-12.3) fL Immature Gran % (Auto) 0.2 (0.0-0.4) % Neut % (Auto) 82.3 H (45-73) % Lymph % (Auto) 7.5 L (20-40) % Jerome % (Auto) 8.7 (2-11) % Eos % (Auto) 1.0 (0-4) % Baso % (Auto) 0.3 (0-2) % Lymph # (Auto) 0.5 L (1.2-4.9) X10*3/uL Jerome # (Auto) 0.5 (0.1-1.2) X10*3/uL Eos # (Auto) 0.1 (0.0-0.4) X10*3/uL Baso # (Auto) 0.0 (0.0-0.2) X10*3/uL Abs Immat Gran (auto) 0.01 (0.00-0.03) X10*3/uL Absolute Neuts (auto) 4.9 (2.0-8.3) X10*3/uL Absolute Nucleated RBC 0.000 (0.0-0.012) X10*3/uL Nucleated RBC % (auto) 0.0 (0.0-0.2) /100WBC PT (10.8-13.0) SEC INR (0.9-1.1) Sodium 139 (135-145) mmol/L Potassium 4.6 (3.3-5.1) mmol/L Chloride 112 H (96-108) mmol/L Carbon Dioxide 21 L (22-29) mmol/L Anion Gap 11 L (12-20) BUN 38 H (9-16) mg/dL Creatinine 2.26 H (0.5-1.4) mg/dL Estim Creat Clear Calc 24.5 Estimated GFR 21 Random Glucose 110 (60-115) mg/dL Calcium 8.4 (8.4-10.2) mg/dL Magnesium (1.6-2.6) mg/dL Total Bilirubin 0.6 (0.0-1.0) mg/dL Direct Bilirubin 0.3 (0.0-0.5) mg/dL AST 19 (5-31) U/L ALT 17 (0-31) U/L Alkaline Phosphatase 114 (39-117) U/L Troponin I High Sens 636.4 H* D (<3.5-17.0) ng/L B-Natriuretic Peptide 808 H (<100) pg/mL Total Protein 6.2 L (6.5-8.0) g/dL Albumin 3.3 L (3.5-5.0) g/dL 04/29/21 04/29/21 04/29/21 Range/Units 09:49 10:57 12:42 WBC (4.8-10.8) X10*3/uL RBC (4.20-5.50) X10*6/uL Hgb (12.0-16.0) g/dl Hct (37-47) % MCV (80-98) fL MCH (27.0-33.0) pg MCHC (31.0-35.0) g/dl RDW (11.0-16.0) % Plt Count (160-400) X10*3/uL MPV (9.4-12.3) fL Immature Gran % (Auto) (0.0-0.4) % Neut % (Auto) (45-73) % Lymph % (Auto) (20-40) % Jerome % (Auto) (2-11) % Eos % (Auto) (0-4) % Baso % (Auto) (0-2) % Lymph # (Auto) (1.2-4.9) X10*3/uL Jerome # (Auto) (0.1-1.2) X10*3/uL Eos # (Auto) (0.0-0.4) X10*3/uL Baso # (Auto) (0.0-0.2) X10*3/uL Abs Immat Gran (auto) (0.00-0.03) X10*3/uL Absolute Neuts (auto) (2.0-8.3) X10*3/uL Absolute Nucleated RBC (0.0-0.012) X10*3/uL Nucleated RBC % (auto) (0.0-0.2) /100WBC PT 48.6 H D (10.8-13.0) SEC INR 4.0 H (0.9-1.1) Sodium (135-145) mmol/L Potassium (3.3-5.1) mmol/L Chloride (96-108) mmol/L Carbon Dioxide (22-29) mmol/L Anion Gap (12-20) BUN (9-16) mg/dL Creatinine (0.5-1.4) mg/dL Estim Creat Clear Calc Estimated GFR Random Glucose (60-115) mg/dL Calcium (8.4-10.2) mg/dL Magnesium 2.2 (1.6-2.6) mg/dL Total Bilirubin (0.0-1.0) mg/dL Direct Bilirubin (0.0-0.5) mg/dL AST (5-31) U/L ALT (0-31) U/L Alkaline Phosphatase (39-117) U/L Troponin I High Sens 649.5 H* (<3.5-17.0) ng/L B-Natriuretic Peptide (<100) pg/mL Total Protein (6.5-8.0) g/dL Albumin (3.5-5.0) g/dL Imaging Data Chest x-ray: Attestation: I personally reviewed and interpreted this imaging study as follows: Radiologist's impression: [address] [id number] ReportSigned Patient: America Dooley EMR#: [id number]: [id number]:[id number]/Sex: 70 / FADM Date: 04/29/21Loc: [address] Dr: Ordering Physician: WENDY BRAN NP Date of Service: 04/29/21 Procedure(s): XR chest 2V Accession Number(s): [id number] cc: WENDY BRAN NP~ EXAMINATION: XR CHEST CLINICAL INFORMATION: Dizziness COMPARISON: None TECHNIQUE: 2 views of the chest were obtained. FINDINGS: Cardiomegaly with increased pulmonary vascularity suggestive of mild congestion. There is a solitary pacer electrode in the right ventricle. There is evidence of previous CABG and median sternotomy sutures from previous intervention. No gross bony abnormality seen. XR/XR chest 2V IMPRESSION: Cardiomegaly with CHF. Evidence of previous CABG. CT scan - head: Attestation: I personally reviewed and interpreted this imaging study as follows: Radiologist's impression: FINDINGS: There is no evidence of acute intracranial hemorrhage or territorial infarction. No abnormal mass effect or midline shift is seen. Hopkins to white matter differentiation is well preserved. No extra-axial fluid collections are identified. The ventricles are normal in size. There is no abnormal attenuation within the brain parenchyma. There is benign hyperostosis frontalis interna The osseous structures and soft tissues are normal. The mastoid air cells and visualized portions of the paranasal sinuses are well aerated. There is a new finding of a small shrunken calcified left eyeball/phthisis bulbi is noted CT/CT head/brain wo con IMPRESSION: No acute intracranial process seen. ECG Data Attestation: I personally reviewed and interpreted this ECG as follows: ECG interpretation date: 04/29/21 ECG interpretation time: 09:53 Interpretation: AFib with rate of 80, normal QRS, normal QT Discharge Plan Discharge Clinical Impression: Vertigo Patient Disposition: Home, Self-Care Instructions: Vertigo (ED) Additional Instructions: Change positions slowly Take meclizine for dizziness as needed Make an appointment with your assistant operations manager as a follow-up. Return for chest pain, leg swelling, weight gain, cough or shortness of breath. Prescriptions: New meclizine 25 mg tablet 25 mg PO TID PRN (Reason: dizziness) Qty: 5 RF: 0 No Action potassium chloride [Klor-Con M20] 20 mEq tablet,ER particles/crystals 20 meq PO DAILY Qty: 90 RF: 5 carvedilol [Coreg] 25 mg tablet 25 mg PO BID 90 Days Qty: 180 RF: 3 aspirin 81 mg tablet,delayed release (DR/EC) 81 mg PO DAILY Qty: 90 RF: 3 diclofenac sodium 1 % gel 4 g topical TID Qty: 400 RF: 11 levothyroxine 137 mcg tablet 137 mcg PO QAM Qty: 90 RF: 3 rosuvastatin [Crestor] 10 mg tablet 10 mg PO DAILY 90 Days Qty: 90 RF: 1 isosorbide dinitrate 5 mg tablet 5 mg PO BID Qty: 180 RF: 3 trazodone 50 mg tablet 50 mg PO DAILY PRN (Reason: for insomnia) Qty: 42 RF: 1 fluoxetine 10 mg capsule 10 mg PO DAILY Qty: 30 RF: 1 omeprazole 20 mg capsule,delayed release(DR/EC) 20 mg PO DAILY Qty: 90 RF: 2 furosemide 40 mg tablet 20 mg PO DAILY RF: 0 colchicine 0.6 mg capsule 0.6 mg PO DAILY PRN (Reason: Pain, Severe) Qty: 90 RF: 1 PreserVision AREDS-2 [id number] jw-jpcd-co-mg capsule 1 tab PO BID RF: 0 acetaminophen [Tylenol] 325 mg capsule 325 mg PO QID PRN (Reason: Pain) RF: 0 warfarin 2.5 mg tablet See Rx Instructions mg .ROUTE .COMPLEX Qty: 90 RF: 2 CALCIUM 750 MG VIT D3 750 mg PO DAILY RF: 0 ferrous sulfate 324 mg (65 mg iron) tablet,delayed release (DR/EC) 324 mg PO BID RF: 0 ascorbic acid (vitamin C) 500 mg capsule, extended release 500 mg PO BID Qty: 60 RF: 5 sennosides 8.6 mg tablet 17.2 mg PO BEDTIME PRN (Reason: Constipation) RF: 0 melatonin 3 mg tablet 3 mg PO BEDTIME PRNRF: 0 Referrals: Lonnie Estrella MD [Physician] - 2 days Interventions: ED Discharge Assessment Last Done: 04/29/21 13:33 Discharge Date/Time: 04/29/21 13:37
[2021-04-29 09:56] LABS: MANUAL DIFF FLAG NO
[2021-04-29 09:58] LABS: Basophils Percent Auto 0.3 % (0-2); Eosinophils Absolute Auto 0.1 X10*3/uL (0.0-0.4); Hematocrit 32.8 % (37-47); Imm Gran Abs Auto 0.01 X10*3/uL (0.00-0.03); Imm Gran Pct Auto 0.2 % (0.0-0.4); Lymphocytes Absolute Auto 0.5 X10*3/uL (1.2-4.9); Lymphocytes Percent Auto 7.5 % (20-40); Mean Corpuscular HGB Conc 30.5 g/dl (31.0-35.0); Mean Corpuscular Hemoglobin 27.9 pg (27.0-33.0); Mean Corpuscular Volume 91.6 fL (80-98); Mean Platelet Volume 10.7 fL (9.4-12.3); Monocytes Absolute Auto 0.5 X10*3/uL (0.1-1.2); Monocytes Percent Auto 8.7 % (2-11); Neutrophils Absolute Auto 4.9 X10*3/uL (2.0-8.3); Neutrophils Percent Auto 82.3 % (45-73); Platelet Count 122 X10*3/uL (160-400); Red Blood Count 3.58 X10*6/uL (4.20-5.50); Red Cell Distribution Width 19.5 % (11.0-16.0)
[2021-04-29 10:37] LABS: Magnesium 2.2 mg/dL (1.6-2.6)
[2021-04-29 10:41] LABS: Alanine Aminotransferase 17 U/L (0-31); Albumin Level 3.3 g/dL (3.5-5.0); Alkaline Phosphatase 114 U/L (39-117); Anion Gap 11 (12-20); Aspartate Amino Transferase 19 U/L (5-31); Bilirubin Direct 0.3 mg/dL (0.0-0.5); Bilirubin Total 0.6 mg/dL (0.0-1.0); Blood Urea Nitrogen 38 mg/dL (9-16); Calcium 8.4 mg/dL (8.4-10.2); Carbon Dioxide 21 mmol/L (22-29); Chloride 112 mmol/L (96-108); Creatinine Clr Calc Pharmacy 24.5; Estimated Glomerular Filt Rate 21; Glucose Random 110 mg/dL (60-115); Potassium 4.6 mmol/L (3.3-5.1); Sodium 139 mmol/L (135-145); Total Protein 6.2 g/dL (6.5-8.0)
[2021-04-29 10:58] LABS: B Type Natriuretic Peptide 808 pg/mL (<100)
[2021-04-29] MEDS: Meclizine HCl 25 MG TABLET PO (11:01)
[2021-04-29 11:02] VITALS: BP 121/73; PULSE 88
[2021-04-29 11:03] VITALS: BP 129/74; PULSE 87
[2021-04-29 11:04] VITALS: BP 120/69; PULSE 90
[2021-04-29 11:06] VITALS: BP 120/69; PULSE 90; RESP 16; TEMP 36.6; O2SAT 99
[2021-04-29 11:08] LABS: Prothrombin Time 48.6 SEC (10.8-13.0)
[2021-04-29 11:11] LABS: Troponin-I High Sensitivity 636.4 ng/L (<3.5-17.0)
[2021-04-29 12:17] VITALS: BP 109/60; PULSE 78; RESP 18; O2SAT 98
[2021-04-29 13:24] LABS: Troponin-I High Sensitivity 649.5 ng/L (<3.5-17.0)
== END 2021-04-29 13:37 | disposition home or self-care (01) ==
PROVIDERS: Nurse Practitioner Family; Emergency Provider Emergency Medicine; PCP Internal Medicine
DX: R42 Dizziness and giddiness (principal); I48.91 Unspecified atrial fibrillation; I13.0 Hypertensive heart and chronic kidney disease with heart failure and stage 1 through stage 4 chronic kidney disease, or unspecified chronic kidney disease; N18.9 Chronic kidney disease, unspecified; I50.22 Chronic systolic (congestive) heart failure; Z79.899 Other long term (current) drug therapy; Z95.810 Presence of automatic (implantable) cardiac defibrillator; Z95.2 Presence of prosthetic heart valve; Z51.81 Encounter for therapeutic drug level monitoring; Z79.01 Long term (current) use of anticoagulants; Z85.3 Personal history of malignant neoplasm of breast
CPT/HCPCS: 36415; 70450; 71046; 80048; 80076; 83735; 83880; 84484; 85025; 85610; 93005; 99211; 99285

== ENCOUNTER → 2021-05-03 08:05 | Outpatient (BNVA) | payer MEDICARE, SELFPAY | PROVIDERS: PCP Internal Medicine; Referring Provider Internal Medicine; Visit Provider Internal Medicine Cardiovascular Disease | DX: Z45.02 Encounter for adjustment and management of automatic implantable cardiac defibrillator (principal); I50.22 Chronic systolic (congestive) heart failure; I48.20 Chronic atrial fibrillation, unspecified; Z95.2 Presence of prosthetic heart valve | CPT/HCPCS: 99212 ==

== ENCOUNTER 2021-05-06 07:12 | Outpatient (REF) | payer MEDICARE, SELFPAY ==
[2021-05-06 08:19] LABS: MANUAL DIFF FLAG NO
[2021-05-06 08:22] LABS: Basophils Percent Auto 0.3 % (0-2); Eosinophils Absolute Auto 0.1 X10*3/uL (0.0-0.4); Eosinophils Percent Auto 1.3 % (0-4); Hematocrit 32.9 % (37-47); Imm Gran Abs Auto 0.02 X10*3/uL (0.00-0.03); Imm Gran Pct Auto 0.3 % (0.0-0.4); Lymphocytes Absolute Auto 0.6 X10*3/uL (1.2-4.9); Lymphocytes Percent Auto 9.1 % (20-40); Mean Corpuscular HGB Conc 30.4 g/dl (31.0-35.0); Mean Corpuscular Hemoglobin 28.2 pg (27.0-33.0); Mean Corpuscular Volume 92.9 fL (80-98); Mean Platelet Volume 12.2 fL (9.4-12.3); Monocytes Absolute Auto 0.6 X10*3/uL (0.1-1.2); Monocytes Percent Auto 9.6 % (2-11); Neutrophils Absolute Auto 5.1 X10*3/uL (2.0-8.3); Neutrophils Percent Auto 79.4 % (45-73); Platelet Count 136 X10*3/uL (160-400); Red Blood Count 3.54 X10*6/uL (4.20-5.50); Red Cell Distribution Width 19.4 % (11.0-16.0); White Blood Count 6.4 X10*3/uL (4.8-10.8)
[2021-05-06 08:46] LABS: Anion Gap 12 (12-20); Blood Urea Nitrogen 56 mg/dL (9-16); Calcium 8.5 mg/dL (8.4-10.2); Carbon Dioxide 23 mmol/L (22-29); Chloride 107 mmol/L (96-108); Estimated Glomerular Filt Rate 19; Glucose Random 98 mg/dL (60-115); Potassium 4.8 mmol/L (3.3-5.1); Sodium 137 mmol/L (135-145)
== END 2021-05-06 07:13 | disposition home or self-care (01) ==
LOC: HO.LAB 07:12
PROVIDERS: PCP Internal Medicine; Visit Provider Internal Medicine
DX: I50.22 Chronic systolic (congestive) heart failure (principal)
CPT/HCPCS: 36415; 80048; 85025

== ENCOUNTER → 2021-05-07 14:51 | Outpatient (BNVA) | payer MEDICARE, SELFPAY | PROVIDERS: PCP Internal Medicine; Visit Provider Internal Medicine | DX: Z95.2 Presence of prosthetic heart valve (principal); Z51.81 Encounter for therapeutic drug level monitoring; Z79.01 Long term (current) use of anticoagulants | CPT/HCPCS: 85610; 99211 ==

== ENCOUNTER 2021-05-14 06:30 | Emergency (ER) | payer MEDICARE, SELFPAY ==
[2021-05-14 06:41] VITALS: BP 118/68; PULSE 104; RESP 18; TEMP 36.8; O2SAT 97; BMI 23.0
--- NOTE | 2021-05-14 06:52 | ED.EYEPROB ---
HPI - Eye Problem General Chief complaint: Eye Problems Stated complaint: eye irritation Time Seen by Provider: 05/14/21 06:52 Source: patient Mode of arrival: ambulatory Limitations: no limitations History of Present Illness chief complaint: eye injury Onset (ago): minute(s) Onset description: sudden Duration: now resolved Location: left eye (prosthetic implant) Eye Symptoms: other (scratched the corner of her eye and it bled while chaning the prosthetic, bleeding has stopped) Place: home Mechanism: direct trauma Severity: mild Context: other (prosthetic eye, on coumadin for afib) Associated symptoms: none Treatments Prior to Arrival: none Related Data Home Medications Medication Instructions Recorded Confirmed acetaminophen 325 mg capsule 325 mg PO QID PRN 08/06/20 05/03/21 vit C 250 mg-vit E 90 mg-zinc 40 1 tab PO BID 08/06/20 05/03/21 mg-copper 1 [id number]-[id number] capsule ferrous sulfate 324 mg (65 mg 324 mg PO BID 11/05/20 05/03/21 iron) tablet,delayed release CALCIUM 750 MG VIT D3 750 mg PO DAILY 01/21/21 05/03/21 sennosides 8.6 mg tablet 17.2 mg PO BEDTIME PRN 02/05/21 05/03/21 furosemide 40 mg tablet 20 mg PO DAILY tab 04/03/21 05/03/21 melatonin 3 mg tablet 3 mg PO BEDTIME PRN 04/11/21 05/03/21 Previous Rx's Medication Instructions Recorded warfarin 2.5 mg tablet See Rx Instructions .ROUTE 08/21/20 .COMPLEX #90 tab potassium chloride 20 mEq 20 meq PO DAILY #90 tab 08/28/20 tablet,extended release(part/cryst) carvedilol 25 mg tablet 25 mg PO BID 90 Days #180 tab 09/05/20 aspirin 81 mg tablet,delayed 81 mg PO DAILY #90 tab 09/17/20 release diclofenac sodium 1 % topical gel 4 g TOPICAL TID #400 g 10/23/20 levothyroxine 137 mcg tablet 137 mcg PO QAM #90 tab 11/07/20 rosuvastatin 10 mg tablet 10 mg PO DAILY 90 Days #90 tab 11/12/20 ascorbic acid (vitamin C) 500 mg PO BID #60 cap 01/03/21 isosorbide dinitrate 5 mg tablet 5 mg PO BID #180 tab 02/28/21 colchicine 0.6 mg capsule 0.6 mg PO DAILY PRN #90 cap 03/26/21 trazodone 50 mg tablet 50 mg PO DAILY PRN #42 tab 04/07/21 omeprazole 20 mg capsule,delayed 20 mg PO DAILY #90 cap 04/26/21 release meclizine 25 mg PO TID PRN #5 tab 04/29/21 warfarin 5 mg tablet 5 mg PO DAILY 90 Days #90 tab 05/10/21 fluoxetine 10 mg capsule 10 mg PO DAILY #30 cap 05/11/21 Allergies Allergy/AdvReac Type Severity Reaction Status Date / Time TAPE,PAPER Allergy Unknown RASH TO Uncoded 04/08/21 18:46 PAPER TAPE Review of Systems Review of Systems: Constitutional : No Fever, No Chills, Eye: no pain, pos bleeding on corner of eye Cardiovascular : No Chest Pain, No SOB Respiratory : No Dyspnea Gastrointestinal : No abdominal pain Musculoskeletal : No Joint Swelling Skin : No rash, no skin laceration Neuro : No Weakness, No Numbness PMFSH Past Medical History Attestation statement: The following information was validated with the patient. Medical History Amyloidosis Anxiety and depression Arthritis Bladder hypertonicity Chronic atrial fibrillation Chronic HFrEF (heart failure with reduced ejection fraction) Chronic kidney disease (CKD) stage G4/A1, severely decreased glomerular filtration rate (GFR) between 15-29 mL/min/1.73 square meter and albuminuria creatinine ratio less than 30 mg/g Detached retina Gout Heart disease History of breast cancer History of breast cancer HTN (hypertension) Hypercholesterolemia Hypothyroid ICD (implantable cardioverter-defibrillator) in place Ischemic cardiomyopathy Kidney disease Nephrolithiasis Osteoarthritis Overweight (BMI 25.0-29.9) Pulmonary hypertension Thumb tendonitis Tricuspid regurgitation Urinary incontinence Surgical History H/O abdominal hysterectomy H/O mitral valve replacement H/O mitral valve replacement with mechanical valve History of bunionectomy History of cataract surgery History of colonoscopy History of left inguinal hernia repair History of sleeve gastrectomy Family History Family History Mother Diabetes Father Past heart attack Diabetes Sister Parkinsons disease Social History Social History Household Members: None Housing: Apartment Do you presently have visiting nurse or other home services: No Alcohol intake: never Patient Tobacco Use Status: Never used Tobacco Second Hand Smoke Exposure: No Use of substances other than those prescribed or required for medical reasons: No Advance Directives: No Advance Directives Information Provided: No service: No Current occupational status: disabled Current occupation: left handed Physical Exam Vital Signs: Vital Signs: Last Vital Signs Temp 98.2 F 05/14/21 06:41 Pulse 104 H 05/14/21 06:41 Resp 18 05/14/21 06:41 BP 118/68 05/14/21 06:41 Pulse Ox 97 05/14/21 06:41 Body Mass Index 23.0 Appearance: Alert. Oriented X3. No acute distress. Eyes: R pupil reactive 3mm, L eye prosthetic dried blood on the prosthetic - no further bleeding on soft tissues around the eye itself ENT: Pharynx normal. Neck: Normal inspection. Neck supple. CVS: irregular heart rate and rhythm. Pulses normal. Respiratory: No respiratory distress. Breath sounds normal. Abdomen: Soft and non-tender. Skin: Skin warm and dry. Normal skin color. Normal skin turgor. Neuro: Oriented X 3. No motor deficit. No sensory deficit. MDM - Eye Problem MDM Narrative Medical decision making narrative: 70 yo female with multiple medical problems on coumadin for afib comes in with c/o bleeding from L eye after scratching her inner corner eyelid while changing her prosthetic, no bleeding now at this time it has resolved, exam wnl, patient requesting INR check. Lab Data Labs: Lab Results 05/14/21 Range/Units 07:18 PT 58.1 H (9.9-13.0) SEC INR 4.9 H (0.9-1.1) Discharge Plan Discharge Clinical Impression: Supratherapeutic INR Patient Disposition: Home, Self-Care Instructions: Elevated INR (ED) Additional Instructions: return to ED for any worsening symptoms or concerns INR 4.9 hold coumadin x 2 days and call the coumadin clinic on to recheck INR on Prescriptions: No Action potassium chloride [Klor-Con M20] 20 mEq tablet,ER particles/crystals 20 meq PO DAILY Qty: 90 RF: 5 carvedilol [Coreg] 25 mg tablet 25 mg PO BID 90 Days Qty: 180 RF: 3 aspirin 81 mg tablet,delayed release (DR/EC) 81 mg PO DAILY Qty: 90 RF: 3 diclofenac sodium 1 % gel 4 g topical TID Qty: 400 RF: 11 levothyroxine 137 mcg tablet 137 mcg PO QAM Qty: 90 RF: 3 rosuvastatin [Crestor] 10 mg tablet 10 mg PO DAILY 90 Days Qty: 90 RF: 1 isosorbide dinitrate 5 mg tablet 5 mg PO BID Qty: 180 RF: 3 trazodone 50 mg tablet 50 mg PO DAILY PRN (Reason: for insomnia) Qty: 42 RF: 1 omeprazole 20 mg capsule,delayed release(DR/EC) 20 mg PO DAILY Qty: 90 RF: 2 warfarin 5 mg tablet 5 mg PO DAILY 90 Days Qty: 90 RF: 2 fluoxetine 10 mg capsule 10 mg PO DAILY Qty: 30 RF: 1 meclizine 25 mg tablet 25 mg PO TID PRN (Reason: dizziness) Qty: 5 RF: 0 furosemide 40 mg tablet 20 mg PO DAILY RF: 0 colchicine 0.6 mg capsule 0.6 mg PO DAILY PRN (Reason: Pain, Severe) Qty: 90 RF: 1 PreserVision AREDS-2 [id number] gf-lvjs-kt-mg capsule 1 tab PO BID RF: 0 acetaminophen [Tylenol] 325 mg capsule 325 mg PO QID PRN (Reason: Pain) RF: 0 warfarin 2.5 mg tablet See Rx Instructions mg .ROUTE .COMPLEX Qty: 90 RF: 2 CALCIUM 750 MG VIT D3 750 mg PO DAILY RF: 0 ferrous sulfate 324 mg (65 mg iron) tablet,delayed release (DR/EC) 324 mg PO BID RF: 0 ascorbic acid (vitamin C) 500 mg capsule, extended release 500 mg PO BID Qty: 60 RF: 5 sennosides 8.6 mg tablet 17.2 mg PO BEDTIME PRN (Reason: Constipation) RF: 0 melatonin 3 mg tablet 3 mg PO BEDTIME PRNRF: 0
--- NOTE | 2021-05-14 07:13 | PC.NURSE ---
pt alert and oriented, skin pwd, respirations even and unlabored. pt states that yesterday while cleaning her left prostatic eye scratched the inner corner of outside of her eye/nose area and was bleeding for a while, pt does take coumedin. this morning noticed some blood coming out of the eye again. no bleeding noticed at this time, just some slight bruising in that area
[2021-05-14 07:37] LABS: INTERNATIONAL NORM RATIO 4.9 (0.9-1.1); Prothrombin Time 58.1 SEC (9.9-13.0)
== END 2021-05-14 08:39 | disposition home or self-care (01) ==
PROVIDERS: Emergency Provider Emergency Medicine; PCP Internal Medicine
DX: D68.8 Other specified coagulation defects (principal); I13.0 Hypertensive heart and chronic kidney disease with heart failure and stage 1 through stage 4 chronic kidney disease, or unspecified chronic kidney disease; N18.4 Chronic kidney disease, stage 4 (severe); I50.9 Heart failure, unspecified; I48.91 Unspecified atrial fibrillation; E78.00 Pure hypercholesterolemia, unspecified; Z79.01 Long term (current) use of anticoagulants; Z79.02 Long term (current) use of antithrombotics/antiplatelets; Z79.82 Long term (current) use of aspirin; Z79.899 Other long term (current) drug therapy; Z85.3 Personal history of malignant neoplasm of breast; Z95.2 Presence of prosthetic heart valve
CPT/HCPCS: 36415; 85610; 99211; 99283; 99284

== ENCOUNTER 2021-05-14 14:09 | Outpatient (REF) | payer MEDICARE, SELFPAY ==
[2021-05-14 14:47] LABS: MANUAL DIFF FLAG NO
[2021-05-14 14:52] LABS: Basophils Percent Auto 0.3 % (0-2); Eosinophils Absolute Auto 0.1 X10*3/uL (0.0-0.4); Eosinophils Percent Auto 1.2 % (0-4); Hematocrit 34.8 % (37-47); Hemoglobin 10.6 g/dl (12.0-16.0); Imm Gran Abs Auto 0.01 X10*3/uL (0.00-0.03); Imm Gran Pct Auto 0.2 % (0.0-0.4); Lymphocytes Absolute Auto 0.5 X10*3/uL (1.2-4.9); Lymphocytes Percent Auto 7.3 % (20-40); Mean Corpuscular HGB Conc 30.5 g/dl (31.0-35.0); Mean Corpuscular Hemoglobin 28.2 pg (27.0-33.0); Mean Corpuscular Volume 92.6 fL (80-98); Mean Platelet Volume 11.3 fL (9.4-12.3); Monocytes Absolute Auto 0.5 X10*3/uL (0.1-1.2); Monocytes Percent Auto 7.6 % (2-11); Neutrophils Absolute Auto 5.4 X10*3/uL (2.0-8.3); Neutrophils Percent Auto 83.4 % (45-73); Platelet Count 146 X10*3/uL (160-400); Red Blood Count 3.76 X10*6/uL (4.20-5.50); Red Cell Distribution Width 19.2 % (11.0-16.0); White Blood Count 6.4 X10*3/uL (4.8-10.8)
[2021-05-14 15:23] LABS: Anion Gap 16 (12-20); Blood Urea Nitrogen 62 mg/dL (9-16); Calcium 8.7 mg/dL (8.4-10.2); Carbon Dioxide 21 mmol/L (22-29); Chloride 108 mmol/L (96-108); Estimated Glomerular Filt Rate 19; Glucose Random 101 mg/dL (60-115); Potassium 5.1 mmol/L (3.3-5.1); Sodium 140 mmol/L (135-145)
== END 2021-05-14 14:10 | disposition home or self-care (01) ==
LOC: HO.LAB 14:09
PROVIDERS: PCP Internal Medicine; Visit Provider Internal Medicine
DX: I50.22 Chronic systolic (congestive) heart failure (principal)
CPT/HCPCS: 36415; 80048; 85025

== ENCOUNTER → 2021-05-16 14:36 | Outpatient (BNVA) | payer MEDICARE, SELFPAY | PROVIDERS: PCP Internal Medicine; Visit Provider Internal Medicine | DX: Z95.2 Presence of prosthetic heart valve (principal); Z51.81 Encounter for therapeutic drug level monitoring; Z79.01 Long term (current) use of anticoagulants | CPT/HCPCS: 85610; 99211 ==

== ENCOUNTER 2021-05-20 08:54 | Emergency (ER) | payer MEDICARE, SELFPAY ==
--- NOTE | ~2021-05-20 | XR_ITS ---
EXAMINATION: XR CHEST CLINICAL INFORMATION: Dizziness COMPARISON: Chest radiographs 04/29/2021, 03/30/2021 TECHNIQUE: Portable upright AP view of the chest was obtained. FINDINGS: There is globular enlarged cardiopericardial silhouette similar to prior studies. Again, there is even distribution vascularity suggesting mild elevated pulmonary venous pressures. There is no interval airspace consolidation or effusion. Postsurgical changes are again seen with mediastinal clips, sternotomy wires, and single lead AICD. The visualized hilar and mediastinal contours and bony structures are stable. XR/XR chest 1V IMPRESSION: Enlarged cardiopericardial silhouette with even distribution vascularity consistent with mild elevated pulmonary venous pressures, similar to prior exam.
[2021-05-20 08:57] VITALS: BP 118/79; PULSE 60; RESP 17; TEMP 35.1; O2SAT 99; BMI 21.8
[2021-05-20 09:17] VITALS: BP 119/68; PULSE 60; O2SAT 99
--- NOTE | 2021-05-20 09:19 | ECG_ITS ---
Test Reason : DIZZY Blood Pressure : / mmHG Vent. Rate : 060 BPM Atrial Rate : 067 BPM P-R Int : 000 ms QRS Dur : 200 ms QT Int : 578 ms P-R-T Axes : 000 -60 117 degrees QTc Int : 578 ms Ventricular-paced rhythm Abnormal ECG When compared with ECG of 29-APR-2021 09:53, Electronic ventricular pacemaker has replaced Atrial fibrillation Referred By: Susana Simon Electronically Signed By:Garth Winters
--- NOTE | 2021-05-20 09:20 | ED_ITS ---
HPI - Dizziness General Chief Complaint: Dizziness Stated Complaint: dizzy Time Seen by Provider: 05/20/21 09:18 Source: patient Mode of arrival: ambulatory Limitations: no limitations History of Present Illness HPI Narrative: 70-year-old female history of congestive heart failure, chronic renal disease, mitral valve replacement, came in for evaluation of feeling generalized weakness with dizziness and lightheadedness, no vertigo, also complaining of chronic abdominal pain for few weeks, and upper back pain. Patient stated that all the above complaint or chronic [place] for multiple months with no change. Related Data Home Medications Medication Instructions Recorded Confirmed acetaminophen 325 mg capsule 325 mg PO QID PRN 08/06/20 05/16/21 vit C 250 mg-vit E 90 mg-zinc 40 1 tab PO BID 08/06/20 05/16/21 mg-copper 1 [id number] capsule ferrous sulfate 324 mg (65 mg 324 mg PO BID 11/05/20 05/16/21 iron) tablet,delayed release CALCIUM 750 MG VIT D3 750 mg PO DAILY 01/21/21 05/16/21 sennosides 8.6 mg tablet 17.2 mg PO BEDTIME PRN 02/05/21 05/16/21 furosemide 40 mg tablet 20 mg PO DAILY tab 04/03/21 05/16/21 melatonin 3 mg tablet 3 mg PO BEDTIME PRN 04/11/21 05/16/21 erythromycin 5 mg/gram (0.5 %) eye 0 mg OPHTHALMIC (EYE) DAILY 05/14/21 05/17/21 ointment vitamins A,C,E-ttzw-islxio 14,320 1 cap PO BID 05/14/21 05/16/21 unit-226 mg-200 unit capsule Previous Rx's Medication Instructions Recorded warfarin 2.5 mg tablet See Rx Instructions .ROUTE 08/21/20 .COMPLEX #90 tab potassium chloride 20 mEq 20 meq PO DAILY #90 tab 08/28/20 tablet,extended release(part/cryst) carvedilol 25 mg tablet 25 mg PO BID 90 Days #180 tab 09/05/20 aspirin 81 mg tablet,delayed 81 mg PO DAILY #90 tab 09/17/20 release diclofenac sodium 1 % topical gel 4 g TOPICAL TID #400 g 10/23/20 levothyroxine 137 mcg tablet 137 mcg PO QAM #90 tab 11/07/20 ascorbic acid (vitamin C) 500 mg PO BID #60 cap 01/03/21 isosorbide dinitrate 5 mg tablet 5 mg PO BID #180 tab 02/28/21 colchicine 0.6 mg capsule 0.6 mg PO DAILY PRN #90 cap 03/26/21 trazodone 50 mg tablet 50 mg PO DAILY PRN #42 tab 04/07/21 omeprazole 20 mg capsule,delayed 20 mg PO DAILY #90 cap 04/26/21 release meclizine 25 mg PO TID PRN #5 tab 04/29/21 warfarin 5 mg tablet 5 mg PO DAILY 90 Days #90 tab 05/10/21 fluoxetine 10 mg capsule 10 mg PO DAILY #30 cap 05/11/21 artifi.tears(hypromellose)(PF) 0.3 1 drp OPHTHALMIC (EYE) Q4-6H PRN 05/16/21 % eye drops #10 ml rosuvastatin 10 mg tablet 10 mg PO DAILY #90 tab 05/16/21 Allergies Allergy/AdvReac Type Severity Reaction Status Date / Time TAPE,PAPER Allergy Unknown RASH TO Uncoded 04/08/21 18:46 PAPER TAPE Review of Systems Review of Systems: All other systems are reviewed and are negative Constitutional: Reports as per HPI and Reports no additional constitutional complaints Eyes: Reports as per HPI and Reports no additional eye complaints Reports system reviewed and no additional complaints, except as documented Cardiovascular: Reports as per HPI and Reports no additional cardiovascular c omplaints Respiratory: Reports as per HPI and Reports no additional respiratory complaints Gastrointestinal: Reports as per HPI and Reports no additional gastrointestinal complaints Genitourinary: Reports no additional female genitourinary complaints Musculoskeletal: Reports no additional musculoskeletal complaints Skin/Breast: Reports system reviewed and no additional complaints, except as docu Psychiatric: Reports no additional psychiatric complaints Endocrine: Reports no additional endocrine complaints Hematologic/Lymphatic: Reports no additional hematologic/lymphatic complaints Allergic/Immunologic: Reports no additional allergic/immunologic complaints Reports system reviewed and no additional complaints, except as documented and Reports Abnormal speech present [facility] Past Medical History Medical History Amyloidosis Anxiety and depression Arthritis Bladder hypertonicity Chronic atrial fibrillation Chronic HFrEF (heart failure with reduced ejection fraction) Chronic kidney disease (CKD) stage G4/A1, severely decreased glomerular fi ltration rate (GFR) between 15-29 mL/min/1.73 square meter and albuminuria creatinine ratio less than 30 mg/g Detached retina Gout Heart disease History of breast cancer History of breast cancer HTN (hypertension) Hypercholesterolemia Hypothyroid ICD (implantable cardioverter-defibrillator) in place Ischemic cardiomyopathy Kidney disease Nephrolithiasis Osteoarthritis Overweight (BMI 25.0-29.9) Pulmonary hypertension Thumb tendonitis Tricuspid regurgitation Urinary incontinence Surgical History H/O abdominal hysterectomy H/O mitral valve replacement H/O mitral valve replacement with mechanical valve History of bunionectomy History of cataract surgery History of colonoscopy History of left inguinal hernia repair History of sleeve gastrectomy Family History Family History Mother Diabetes Father Past heart attack Diabetes Sister Parkinsons disease Social History Social History Household Members: None Housing: Apartment Do you presently have visiting nurse or other home services: No Alcohol intake: never Patient Tobacco Use Status: Never used Tobacco Tobacco use type: Cigarette e-Cigarette/Vaping Use: Never Used Second Hand Smoke Exposure: No service: No Current occupational status: disabled Current occupation: left handed Physical Exam Vital Signs: Vital Signs: Last Vital Signs Temp 95.2 F L 05/20/21 08:57 Pulse 60 05/20/21 09:37 Resp 17 05/20/21 08:57 BP 96/32 L 05/20/21 09:37 Pulse Ox 99 05/20/21 09:17 Body Mass Index 21.8 Vital signs have been reviewed as appeared to be correct. Blood pressure normal. Heart rate normal. Respiration rate normal. Temperature normal. Oxygen saturation normal. Appearance: Alert. Oriented X3. No acute distress. Head: Normal external exam. Normocephalic. Atraumatic. No Avila signs noted. No raccoon eyes noted Eyes: PERRLA. EOMI. Conjunctiva and sclera normal. Eyelids normal. ENT: TM's Normal. Pharynx normal. Uvula midline. Moist mucous membranes. No trismus noted. No drooling noted. No muffled voice noted. Neck: Normal inspection. Neck supple. FROM. No adenopathy. Thyroid Normal. No meningeal signs. No neck mass noted. CVS: Normal heart rate and rhythm. Heart sound normal. No murmurs noted. Pulses normal throughout. Respiratory: No respiratory distress. Painless inspiration. Breath sounds normal. No wheezes/rales/rhonchi noted. Chest nontender. No accessory muscle usage noted or decreased air movement noted. Abdomen: Soft and nontender. Bowel sounds normal in all 4 quadrants. No distention noted. No organomegaly noted. No visible injury noted. Back: No CVA tenderness. Full range of motion noted. Skin: Skin warm and dry. Normal skin color. Normal skin turgor. No rashes/lesions/lacerations noted. Extremities: No lower extremity edema. Extremities exhibit normal range of motion. Extremities nontender. Neuro: Oriented X 3. No motor deficit. No sensory deficit. Reflexes normal. Course Course Course Narrative: Assessment and plan. 70-year-old female came in for a dizziness, mild acute on chronic upper abdo dean pain, and back pain. The patient also here to check her blood and her Coumadin as her PCP ordered them. 1. Slightly elevated lipase and mild pancreatitis, patient had normal abdominal ultrasound 2 months ago with normal pancreas. 2. INR is 2.2. 3. Chronic renal failure appear to be stable at this point. [facility] - Dizziness Lab Data Attestation: I reviewed the patient's lab results. Result diagrams: 05/20/21 09:32 05/20/21 09:32 Labs: Lab Results 05/20/21 05/20/21 05/20/21 Range/Units 09:32 09:32 09:32 WBC 7.2 (4.8-10.8) X10*3/uL RBC 3.75 L (4.20-5.50) X10*6/uL Hgb 10.5 L (12.0-16.0) g/dl Hct 34.7 L (37-47) % MCV 92.5 (80-98) fL MCH 28.0 (27.0-33.0) pg MCHC 30.3 L (31.0-35.0) g/dl RDW 18.6 H (11.0-16.0) % Plt Count 126 L (160-400) X10*3/uL MPV 11.6 (9.4-12.3) fL Immature Gran % (Auto) 0.3 (0.0-0.4) % Neut % (Auto) 86.0 H (45-73) % Lymph % (Auto) 6.2 L (20-40) % [place] % (Auto) 6.5 (2-11) % Eos % (Auto) 0.6 (0-4) % Baso % (Auto) 0.4 (0-2) % Lymph # (Auto) 0.5 L (1.2-4.9) X10*3/uL [place] # (Auto) 0.5 (0.1-1.2) X10*3/uL Eos # (Auto) 0.0 (0.0-0.4) X10*3/uL Baso # (Auto) 0.0 (0.0-0.2) X10*3/uL Abs Immat Gran (auto) 0.02 (0.00-0.03) X10*3/uL Absolute Neuts (auto) 6.2 (2.0-8.3) X10*3/uL Absolute Nucleated RBC 0.000 (0.0-0.012) X10*3/uL Nucleated RBC % (auto) 0.0 (0.0-0.2) /100WBC Smear Tech's Comments Not Reportable PT 25.0 H D (9.9-13.0) SEC INR 2.2 H (0.9-1.1) APTT 40.9 H (24.1-38.0) SEC Sodium 132 L (135-145) mmol/L Potassium 4.5 D (3.3-5.1) mmol/L Chloride 103 (96-108) mmol/L Carbon Dioxide 18 L (22-29) mmol/L Anion Gap 16 (12-20) BUN 50 H (9-16) mg/dL Creatinine 2.32 H (0.5-1.4) mg/dL Estim Creat Clear Calc 23.9 Estimated GFR 21 Random Glucose 164 H D (60-115) mg/dL Calcium 8.3 L (8.4-10.2) mg/dL B-Natriuretic Peptide (<100) pg/mL Lipase 79 H (8-78) U/L 05/20/21 Range/Units 09:32 WBC (4.8-10.8) X10*3/uL RBC (4.20-5.50) X10*6/uL Hgb (12.0-16.0) g/dl Hct (37-47) % MCV (80-98) fL MCH (27.0-33.0) pg MCHC (31.0-35.0) g/dl RDW (11.0-16.0) % Plt Count (160-400) X10*3/uL MPV (9.4-12.3) fL Immature Gran % (Auto) (0.0-0.4) % Neut % (Auto) (45-73) % Lymph % (Auto) (20-40) % [place] % (Auto) (2-11) % Eos % (Auto) (0-4) % Baso % (Auto) (0-2) % Lymph # (Auto) (1.2-4.9) X10*3/uL [place] # (Auto) (0.1-1.2) X10*3/uL Eos # (Auto) (0.0-0.4) X10*3/uL Baso # (Auto) (0.0-0.2) X10*3/uL Abs Immat Gran (auto) (0.00-0.03) X10*3/uL Absolute Neuts (auto) (2.0-8.3) X10*3/uL Absolute Nucleated RBC (0.0-0.012) X10*3/uL Nucleated RBC % (auto) (0.0-0.2) /100WBC Smear Tech's Comments PT (9.9-13.0) SEC INR (0.9-1.1) APTT (24.1-38.0) SEC Sodium (135-145) mmol/L Potassium (3.3-5.1) mmol/L Chloride (96-108) mmol/L Carbon Dioxide (22-29) mmol/L Anion Gap (12-20) BUN (9-16) mg/dL Creatinine (0.5-1.4) mg/dL Estim Creat Clear Calc Estimated GFR Random Glucose (60-115) mg/dL Calcium (8.4-10.2) mg/dL B-Natriuretic Peptide 490 H (<100) pg/mL Lipase (8-78) U/L Imaging Data Chest x-ray: Radiologist's impression: Enlarged cardiopericardial silhouette with even distribution vascularity consistent with mild elevated pulmonary venous pressures, similar to prior exam. ECG Data Interpretation: Ventricular paced EKG at 60 beats per minute. Discharge Plan Discharge Clinical Impression: Pancreatitis Patient Disposition: Home, Self-Care Instructions: Pancreatitis (ED) Prescriptions: No Action potassium chloride [Klor-Con M20] 20 mEq tablet,ER particles/crystals 20 meq PO DAILY Qty: 90 RF: 5 carvedilol [Coreg] 25 mg tablet 25 mg PO BID 90 Days Qty: 180 RF: 3 aspirin 81 mg tablet,delayed release (DR/EC) 81 mg PO DAILY Qty: 90 RF: 3 diclofenac sodium 1 % gel 4 g topical TID Qty: 400 RF: 11 levothyroxine 137 mcg tablet 137 mcg PO QAM Qty: 90 RF: 3 isosorbide dinitrate 5 mg tablet 5 mg PO BID Qty: 180 RF: 3 trazodone 50 mg tablet 50 mg PO DAILY PRN (Reason: for insomnia) Qty: 42 RF: 1 omeprazole 20 mg capsule,delayed release(DR/EC) 20 mg PO DAILY Qty: 90 RF: 2 warfarin 5 mg tablet 5 mg PO DAILY 90 Days Qty: 90 RF: 2 fluoxetine 10 mg capsule 10 mg PO DAILY Qty: 30 RF: 1 rosuvastatin 10 mg tablet 10 mg PO DAILY Qty: 90 RF: 2 artifi.tears(hypromellose)(PF) 0.3 % drops 1 drp ophthalmic (eye) Q4-6H PRN (Reason: dry eye(s)) Qty: 10 RF: 1 meclizine 25 mg tablet 25 mg PO TID PRN (Reason: dizziness) Qty: 5 RF: 0 furosemide 40 mg tablet 20 mg PO DAILY RF: 0 colchicine 0.6 mg capsule 0.6 mg PO DAILY PRN (Reason: Pain, Severe) Qty: 90 RF: 1 PreserVision AREDS-2 [id number] fr-mpsp-bn-mg capsule 1 tab PO BID RF: 0 acetaminophen [Tylenol] 325 mg capsule 325 mg PO QID PRN (Reason: Pain) RF: 0 warfarin 2.5 mg tablet See Rx Instructions mg .ROUTE .COMPLEX Qty: 90 RF: 2 CALCIUM 750 MG VIT D3 750 mg PO DAILY RF: 0 erythromycin 5 mg/gram (0.5 %) ointment 0 mg ophthalmic (eye) DAILY RF: 0 PreserVision AREDS [id number] fxyb-ji-honx capsule 1 cap PO BID RF: 0 ferrous sulfate 324 mg (65 mg iron) tablet,delayed release (DR/EC) 324 mg PO BID RF: 0 ascorbic acid (vitamin C) 500 mg capsule, extended release 500 mg PO BID Qty: 60 RF: 5 sennosides 8.6 mg tablet 17.2 mg PO BEDTIME PRN (Reason: Constipation) RF: 0 melatonin 3 mg tablet 3 mg PO BEDTIME PRNRF: 0 Referrals: Po,Dakotah Ahumada MD [Primary Care Provider] - 2 days
[2021-05-20 09:35] VITALS: BP 103/53; PULSE 60
[2021-05-20 09:36] VITALS: BP 112/59; PULSE 60
[2021-05-20 09:37] VITALS: BP 96/32; PULSE 60
[2021-05-20 09:50] LABS: MANUAL DIFF FLAG SCAN; Mean Corpuscular HGB Conc 30.3 g/dl (31.0-35.0); PLT CLUMP 1; Red Cell Distribution Width 18.6 % (11.0-16.0); SCAN SMEAR FLAG 1
[2021-05-20 09:52] LABS: Basophils Percent Auto 0.4 % (0-2); Eosinophils Percent Auto 0.6 % (0-4); Hematocrit 34.7 % (37-47); Hemoglobin 10.5 g/dl (12.0-16.0); Imm Gran Abs Auto 0.02 X10*3/uL (0.00-0.03); Imm Gran Pct Auto 0.3 % (0.0-0.4); Lymphocytes Absolute Auto 0.5 X10*3/uL (1.2-4.9); Lymphocytes Percent Auto 6.2 % (20-40); Mean Corpuscular Volume 92.5 fL (80-98); Mean Platelet Volume 11.6 fL (9.4-12.3); Monocytes Absolute Auto 0.5 X10*3/uL (0.1-1.2); Monocytes Percent Auto 6.5 % (2-11); Neutrophils Absolute Auto 6.2 X10*3/uL (2.0-8.3); Red Blood Count 3.75 X10*6/uL (4.20-5.50); White Blood Count 7.2 X10*3/uL (4.8-10.8)
[2021-05-20 09:59] LABS: Platelet Count 126 X10*3/uL (160-400)
[2021-05-20 10:05] LABS: INTERNATIONAL NORM RATIO 2.2 (0.9-1.1)
[2021-05-20 10:08] LABS: Partial Thromboplastin Time 40.9 SEC (24.1-38.0)
[2021-05-20] MEDS: LORazepam 1 MG TABLET PO (10:12)
[2021-05-20 10:29] LABS: B Type Natriuretic Peptide 490 pg/mL (<100)
[2021-05-20 10:30] LABS: Anion Gap 16 (12-20); Blood Urea Nitrogen 50 mg/dL (9-16); Calcium 8.3 mg/dL (8.4-10.2); Carbon Dioxide 18 mmol/L (22-29); Chloride 103 mmol/L (96-108); Creatinine Clr Calc Pharmacy 23.9; Estimated Glomerular Filt Rate 21; Glucose Random 164 mg/dL (60-115); Potassium 4.5 mmol/L (3.3-5.1); Sodium 132 mmol/L (135-145)
[2021-05-20 10:47] LABS: Lipase 79 U/L (8-78)
== END 2021-05-20 12:46 | disposition home or self-care (01) ==
PROVIDERS: Emergency Provider Emergency Medicine; PCP Internal Medicine
DX: K85.90 Acute pancreatitis without necrosis or infection, unspecified (principal); R42 Dizziness and giddiness; I12.9 Hypertensive chronic kidney disease with stage 1 through stage 4 chronic kidney disease, or unspecified chronic kidney disease; I50.9 Heart failure, unspecified; N18.9 Chronic kidney disease, unspecified; F17.210 Nicotine dependence, cigarettes, uncomplicated; Z79.899 Other long term (current) drug therapy; Z71.6 Tobacco abuse counseling
CPT/HCPCS: 36415; 71045; 80048; 83690; 83880; 85025; 85610; 85730; 93005; 99284

== ENCOUNTER 2021-05-23 10:43 | Emergency (ER) | payer MEDICARE, SELFPAY ==
--- NOTE | ~2021-05-23 | CT_ITS ---
EXAMINATION: CT ABDOMEN AND PELVIS WITHOUT CONTRAST CLINICAL INFORMATION: Epigastric pain. COMPARISON: Abdominal ultrasound dated 03/29/2021. CT abdomen/pelvis dated 12/16/2018. TECHNIQUE: Multidetector volumetric imaging was performed from the superior aspect of the liver through the pubic symphysis. Sagittal and coronal reformatted images were obtained on the technologist's workstation. This CT examination was performed using dose optimization techniques as appropriate, variously including the following: *Automated exposure control *Adjustment of mA and/or kV according to patient size (this includes techniques or standardized protocols for targeted exams where dose is matched to indication/reason for exam; i.e. extremities or head) *Use of iterative reconstruction technique DLP: 438 mGy-cm FINDINGS: LUNG BASES: Cardiomegaly is redemonstrated. Partial calcification of the left ventricular apex is redemonstrated. Interstitial prominence within the visualized lung bases. LIVER, GALLBLADDER, AND BILIARY TREE: The liver is normal in size, shape, and attenuation. No focal hepatic lesion or biliary ductal dilatation is present. The gallbladder is unremarkable with no evidence of radiopaque gallstones, gallbladder wall thickening, or obvious pericholecystic inflammatory changes. PANCREAS: Unremarkable. SPLEEN: Unremarkable. ADRENAL GLANDS: Mild asymmetric thickening of the left adrenal gland, unchanged. KIDNEYS AND URETERS: The kidneys are normal in size, shape, and attenuation. Punctate left renal stones are redemonstrated. No ureteral stone. No hydronephrosis or hydroureter. BLADDER: Nondistended and unremarkable. GASTROINTESTINAL TRACT: Small, sliding hernia. Scattered diverticulosis without evidence of acute diverticulitis. No small or large bowel obstruction. No bowel wall thickening or associated inflammatory change. Unremarkable appendix. PERITONEAL CAVITY: No intra-abdominal free air or free fluid. No intra-abdominal mass or organized fluid collection/abscess formation. ABDOMINAL WALL: No significant hernia is appreciated. LYMPH NODES: Redemonstration of multiple subcentimeter retroperitoneal lymph nodes. No significant lymphadenopathy. VASCULAR: No abdominal aortic dilatation. Scattered atherosclerotic calcifications. PELVIC VISCERA: Uterus appears surgically absent. OSSEOUS STRUCTURES: No concerning lytic or blastic osseous lesion. CT/CT abdomen pelvis wo con IMPRESSION: 1. Tiny left renal stones. No obstructing renal stone. No hydronephrosis or hydroureter. Unremarkable urinary bladder. 2. Small, sliding hiatal hernia. Scattered diverticulosis without evidence of acute diverticulitis. No small or large bowel obstruction. Unremarkable appendix. 3. No intra-abdominal mass, lymphadenopathy, or ascites. 4. Additional chronic findings are unchanged.
[2021-05-23 10:48] VITALS: BP 120/70; BP 126/51; PULSE 60; RESP 16; TEMP 36.7; O2SAT 99; BMI 21.5
--- NOTE | 2021-05-23 11:07 | ECG_ITS ---
Test Reason : EPIGASTRIC PAIN Blood Pressure : / mmHG Vent. Rate : 061 BPM Atrial Rate : 078 BPM P-R Int : 000 ms QRS Dur : 200 ms QT Int : 590 ms P-R-T Axes : 000 -63 112 degrees QTc Int : 593 ms Ventricular-paced rhythm with occasional Premature ventricular complexes Abnormal ECG When compared with ECG of 20-MAY-2021 09:27, Premature ventricular complexes are now Present Referred By: Flores Yoo Electronically Signed By:Garth Winters
--- NOTE | 2021-05-23 11:08 | ED.ABDPAIN ---
HPI - Abdominal Pain General Chief Complaint: Abdominal Pain Stated Complaint: ABD PAIN Time Seen by Provider: 05/23/21 10:57 Source: patient and EMS Mode of arrival: EMS Limitations: no limitations History of Present Illness HPI narrative: Patient comes to emergency room complaining of epigastric pain. Patient was seen this morning by Dr. Valencia at an urgent care. Patient was seen in the emergency room on May 20, patient came in with similar complaints, patient's lipase was slightly elevated (79, normal 78), was sent home with a liquid diet . Patient states that the pain is 2/10, ongoing, concerned that the patient has not improved. Patient denies chest pain, no shortness of breath, no nausea vomiting or diarrhea. Related Data Home Medications Medication Instructions Recorded Confirmed acetaminophen 325 mg capsule 325 mg PO QID PRN 08/06/20 05/23/21 vit C 250 mg-vit E 90 mg-zinc 40 1 tab PO BID 08/06/20 05/23/21 mg-copper 1 [id number]-mtphoy capsule ferrous sulfate 324 mg (65 mg 324 mg PO BID 11/05/20 05/23/21 iron) tablet,delayed release CALCIUM 750 MG VIT D3 750 mg PO DAILY 01/21/21 05/23/21 sennosides 8.6 mg tablet 17.2 mg PO BEDTIME PRN 02/05/21 05/23/21 furosemide 40 mg tablet 20 mg PO DAILY tab 04/03/21 05/23/21 melatonin 3 mg tablet 3 mg PO BEDTIME PRN 04/11/21 05/23/21 erythromycin 5 mg/gram (0.5 %) eye 0 mg OPHTHALMIC (EYE) DAILY 05/14/21 05/23/21 ointment vitamins A,C,P-twfd-wvgrmu 14,320 1 cap PO BID 05/14/21 05/23/21 unit-226 mg-200 unit capsule Previous Rx's Medication Instructions Recorded warfarin 2.5 mg tablet See Rx Instructions .ROUTE 08/21/20 .COMPLEX #90 tab carvedilol 25 mg tablet 25 mg PO BID 90 Days #180 tab 09/05/20 aspirin 81 mg tablet,delayed 81 mg PO DAILY #90 tab 09/17/20 release diclofenac sodium 1 % topical gel 4 g TOPICAL TID #400 g 10/23/20 levothyroxine 137 mcg tablet 137 mcg PO QAM #90 tab 11/07/20 ascorbic acid (vitamin C) 500 mg PO BID #60 cap 01/03/21 isosorbide dinitrate 5 mg tablet 5 mg PO BID #180 tab 02/28/21 colchicine 0.6 mg capsule 0.6 mg PO DAILY PRN #90 cap 03/26/21 trazodone 50 mg tablet 50 mg PO DAILY PRN #42 tab 04/07/21 omeprazole 20 mg capsule,delayed 20 mg PO DAILY #90 cap 04/26/21 release meclizine 25 mg PO TID PRN #5 tab 04/29/21 warfarin 5 mg tablet 5 mg PO DAILY 90 Days #90 tab 05/10/21 fluoxetine 10 mg capsule 10 mg PO DAILY #30 cap 05/11/21 artifi.tears(hypromellose)(PF) 0.3 1 drp OPHTHALMIC (EYE) Q4-6H PRN 05/16/21 % eye drops #10 ml rosuvastatin 10 mg tablet 10 mg PO DAILY #90 tab 05/16/21 potassium chloride 20 mEq 20 meq PO .COMPLEX #90 tab 05/20/21 tablet,extended release(part/cryst) prosthetics #1 ea 05/23/21 Allergies Allergy/AdvReac Type Severity Reaction Status Date / Time TAPE,PAPER Allergy Unknown RASH TO Uncoded 05/23/21 09:57 PAPER TAPE Review of Systems Review of Systems Constitutional : No Weight loss, No Fever, No Chills, No Night Sweats, No Fatigue, No Malaise ENT/Mouth : No Hearing loss, No Ear Pain, No Nasal Congestion, No Sinus Pain, No Hoarseness, No sore throat, No Rhinorrhea, No Swallowing Difficulty Eyes: No Eye Pain, No Swelling, No Redness, No Foreign Body, No Discharge, No Vision Changes Cardiovascular : No Chest Pain, No SOB, No Dyspnea on Exertion, No Orthopnea, No Edema, No Palpitations Respiratory : No Cough, No Sputum, No Wheezing, No Smoke Exposure, No Dyspnea Gastrointestinal : No Nausea, No Vomiting, No Diarrhea, No Constipation, complaining of 2/10 epigastric pain, constant, No Hematochezia, No Melena Genitourinary : no irregular bleeding, No Dysuria, No Urinary Frequency, No Hematuria, No Urinary Incontinence, No Urgency, No Flank Pain, No Urinary Flow Changes, No Hesitancy Musculoskeletal : No joint pain, No Myalgias, No Joint Swelling Skin : No Skin Lesions, No rash Neuro : No Weakness, No Numbness, No Paresthesias, No Loss of Consciousness, No Dizziness, No Headache Psych : No Anxiety/Panic, No Depression, No SI/HI/AH/VH, No Social Issues, Heme/Lymph: No Bruising, No Bleeding,No Lymphadenopathy Endocrine : No Polyuria, No Polydipsia, No Temperature Intolerance Physical Exam Vital Signs: Vital Signs: Last Vital Signs Temp 98.1 F 05/23/21 10:48 Pulse 63 05/23/21 16:15 Resp 16 05/23/21 16:15 BP 138/93 H 05/23/21 16:15 Pulse Ox 99 05/23/21 16:15 Body Mass Index 21.5 Appearance: Alert. Oriented X3. No acute distress. Eyes: Pupils equal, round and reactive to light. ENT: Pharynx normal. Neck: Normal inspection. Neck supple. No lymph nodes noted. No crepitus CVS: Normal heart rate and rhythm. Pulses normal. Normal S1 and S2 Respiratory: No respiratory distress. Breath sounds normal. No Wheezing. No rales Abdomen: Soft , mild tenderness to palpation over the epigastric area, No rigidity. No distention. Skin: Skin warm and dry. Normal skin color. Normal skin turgor. Extremities: No lower extremity edema. No lower extremity edema. No Lacerations. No Rash Neuro: Oriented X 3. No motor deficit. No sensory deficit. Moving all extermities. No slurred speech. Course Course Course Narrative: I discussed with the patient that her lipase level is back to normal. Also discussed with Dr. Winters, the patient's epigastric pain, the EKG, and chronic troponin. After 5 days of epigastric pain, unlikely to be cardiac etiology. On 03/29/2021, patient had an ultrasound done, there was no evidence of stones, sludge, polyps, wall thickening or pericholecystic fluid. Patient will receive a GI cocktail, then patient will be p.o. challenged with solids. If p.o. challenges tolerated, patient may be discharged home. Sign-out given to Dr. Russell. MDM - Abdominal Pain Lab Data Result diagrams: 05/23/21 11:40 05/23/21 11:40 Labs: Lab Results 05/23/21 05/23/21 05/23/21 Range/Units 11:40 11:40 11:40 WBC 6.4 (4.8-10.8) X10*3/uL RBC 3.65 L (4.20-5.50) X10*6/uL Hgb 10.4 L (12.0-16.0) g/dl Hct 33.9 L (37-47) % MCV 92.9 (80-98) fL MCH 28.5 (27.0-33.0) pg MCHC 30.7 L (31.0-35.0) g/dl RDW 18.9 H (11.0-16.0) % Plt Count 155 L (160-400) X10*3/uL MPV 10.4 (9.4-12.3) fL Immature Gran % (Auto) 0.3 (0.0-0.4) % Neut % (Auto) 86.5 H (45-73) % Lymph % (Auto) 6.3 L (20-40) % Randolph % (Auto) 6.1 (2-11) % Eos % (Auto) 0.5 (0-4) % Baso % (Auto) 0.3 (0-2) % Lymph # (Auto) 0.4 L (1.2-4.9) X10*3/uL Randolph # (Auto) 0.4 (0.1-1.2) X10*3/uL Eos # (Auto) 0.0 (0.0-0.4) X10*3/uL Baso # (Auto) 0.0 (0.0-0.2) X10*3/uL Abs Immat Gran (auto) 0.02 (0.00-0.03) X10*3/uL Absolute Neuts (auto) 5.5 (2.0-8.3) X10*3/uL Absolute Nucleated RBC 0.000 (0.0-0.012) X10*3/uL Nucleated RBC % (auto) 0.0 (0.0-0.2) /100WBC PT 54.0 H D (9.9-13.0) SEC INR 4.6 H (0.9-1.1) Sodium 138 (135-145) mmol/L Potassium 4.4 (3.3-5.1) mmol/L Chloride 107 (96-108) mmol/L Carbon Dioxide 20 L (22-29) mmol/L Anion Gap 15 (12-20) BUN 43 H (9-16) mg/dL Creatinine 2.31 H (0.5-1.4) mg/dL Estim Creat Clear Calc 24.0 Estimated GFR 21 Random Glucose 84 D (60-115) mg/dL Calcium 8.6 (8.4-10.2) mg/dL Total Bilirubin 0.8 (0.0-1.0) mg/dL Direct Bilirubin 0.4 (0.0-0.5) mg/dL AST 18 (5-31) U/L ALT 21 (0-31) U/L Alkaline Phosphatase 112 (39-117) U/L Troponin I High Sens (<3.5-17.0) ng/L Total Protein 6.4 L (6.5-8.0) g/dL Albumin 3.4 L (3.5-5.0) g/dL Lipase 77 (8-78) U/L 05/23/21 Range/Units 11:40 WBC (4.8-10.8) X10*3/uL RBC (4.20-5.50) X10*6/uL Hgb (12.0-16.0) g/dl Hct (37-47) % MCV (80-98) fL MCH (27.0-33.0) pg MCHC (31.0-35.0) g/dl RDW (11.0-16.0) % Plt Count (160-400) X10*3/uL MPV (9.4-12.3) fL Immature Gran % (Auto) (0.0-0.4) % Neut % (Auto) (45-73) % Lymph % (Auto) (20-40) % Randolph % (Auto) (2-11) % Eos % (Auto) (0-4) % Baso % (Auto) (0-2) % Lymph # (Auto) (1.2-4.9) X10*3/uL Randolph # (Auto) (0.1-1.2) X10*3/uL Eos # (Auto) (0.0-0.4) X10*3/uL Baso # (Auto) (0.0-0.2) X10*3/uL Abs Immat Gran (auto) (0.00-0.03) X10*3/uL Absolute Neuts (auto) (2.0-8.3) X10*3/uL Absolute Nucleated RBC (0.0-0.012) X10*3/uL Nucleated RBC % (auto) (0.0-0.2) /100WBC PT (9.9-13.0) SEC INR (0.9-1.1) Sodium (135-145) mmol/L Potassium (3.3-5.1) mmol/L Chloride (96-108) mmol/L Carbon Dioxide (22-29) mmol/L Anion Gap (12-20) BUN (9-16) mg/dL Creatinine (0.5-1.4) mg/dL Estim Creat Clear Calc Estimated GFR Random Glucose (60-115) mg/dL Calcium (8.4-10.2) mg/dL Total Bilirubin (0.0-1.0) mg/dL Direct Bilirubin (0.0-0.5) mg/dL AST (5-31) U/L ALT (0-31) U/L Alkaline Phosphatase (39-117) U/L Troponin I High Sens 766.0 H* (<3.5-17.0) ng/L Total Protein (6.5-8.0) g/dL Albumin (3.5-5.0) g/dL Lipase (8-78) U/L Discharge Plan Discharge Prescriptions: No Action carvedilol [Coreg] 25 mg tablet 25 mg PO BID 90 Days Qty: 180 RF: 3 aspirin 81 mg tablet,delayed release (DR/EC) 81 mg PO DAILY Qty: 90 RF: 3 diclofenac sodium 1 % gel 4 g topical TID Qty: 400 RF: 11 levothyroxine 137 mcg tablet 137 mcg PO QAM Qty: 90 RF: 3 isosorbide dinitrate 5 mg tablet 5 mg PO BID Qty: 180 RF: 3 trazodone 50 mg tablet 50 mg PO DAILY PRN (Reason: for insomnia) Qty: 42 RF: 1 omeprazole 20 mg capsule,delayed release(DR/EC) 20 mg PO DAILY Qty: 90 RF: 2 warfarin 5 mg tablet 5 mg PO DAILY 90 Days Qty: 90 RF: 2 fluoxetine 10 mg capsule 10 mg PO DAILY Qty: 30 RF: 1 rosuvastatin 10 mg tablet 10 mg PO DAILY Qty: 90 RF: 2 artifi.tears(hypromellose)(PF) 0.3 % drops 1 drp ophthalmic (eye) Q4-6H PRN (Reason: dry eye(s)) Qty: 10 RF: 1 potassium chloride [Klor-Con M20] 20 mEq tablet,ER particles/crystals 20 meq PO .COMPLEX Qty: 90 RF: 5 (DME) prosthetics Kit See Rx Instructions .ROUTE .MEDSUPPLY Qty: 1 RF: 0 meclizine 25 mg tablet 25 mg PO TID PRN (Reason: dizziness) Qty: 5 RF: 0 furosemide 40 mg tablet 20 mg PO DAILY RF: 0 colchicine 0.6 mg capsule 0.6 mg PO DAILY PRN (Reason: Pain, Severe) Qty: 90 RF: 1 PreserVision AREDS-2 [id number] sx-zilv-mx-mg capsule 1 tab PO BID RF: 0 acetaminophen [Tylenol] 325 mg capsule 325 mg PO QID PRN (Reason: Pain) RF: 0 warfarin 2.5 mg tablet See Rx Instructions mg .ROUTE .COMPLEX Qty: 90 RF: 2 CALCIUM 750 MG VIT D3 750 mg PO DAILY RF: 0 erythromycin 5 mg/gram (0.5 %) ointment 0 mg ophthalmic (eye) DAILY RF: 0 PreserVision AREDS [id number] jefj-dc-uadl capsule 1 cap PO BID RF: 0 ferrous sulfate 324 mg (65 mg iron) tablet,delayed release (DR/EC) 324 mg PO BID RF: 0 ascorbic acid (vitamin C) 500 mg capsule, extended release 500 mg PO BID Qty: 60 RF: 5 sennosides 8.6 mg tablet 17.2 mg PO BEDTIME PRN (Reason: Constipation) RF: 0 melatonin 3 mg tablet 3 mg PO BEDTIME PRNRF: 0 PMFSH Past Medical History Medical History Amyloidosis Anxiety and depression Arthritis Bladder hypertonicity Chronic atrial fibrillation Chronic HFrEF (heart failure with reduced ejection fraction) Chronic kidney disease (CKD) stage G4/A1, severely decreased glomerular filtration rate (GFR) between 15-29 mL/min/1.73 square meter and albuminuria creatinine ratio less than 30 mg/g Detached retina Gout Heart disease History of breast cancer History of breast cancer HTN (hypertension) Hypercholesterolemia Hypothyroid ICD (implantable cardioverter-defibrillator) in place Ischemic cardiomyopathy Kidney disease Nephrolithiasis Osteoarthritis Overweight (BMI 25.0-29.9) Pulmonary hypertension Thumb tendonitis Tricuspid regurgitation Urinary incontinence Surgical History H/O abdominal hysterectomy H/O mitral valve replacement H/O mitral valve replacement with mechanical valve History of bunionectomy History of cataract surgery History of colonoscopy History of left inguinal hernia repair History of sleeve gastrectomy Family History Family History Mother Diabetes Father Past heart attack Diabetes Sister Parkinsons disease Social History Social History Household Members: None Housing: Apartment Do you presently have visiting nurse or other home services: No Alcohol intake: never Patient Tobacco Use Status: Never used Tobacco Tobacco use type: Cigarette e-Cigarette/Vaping Use: Never Used Second Hand Smoke Exposure: No Advance Directives: Yes Advance Directives Information Provided: Yes Advance Directives on File: No service: No Current occupational status: disabled Current occupation: left handed
[2021-05-23 11:45] LABS: MANUAL DIFF FLAG NO
[2021-05-23 11:47] LABS: Basophils Percent Auto 0.3 % (0-2); Eosinophils Percent Auto 0.5 % (0-4); Hematocrit 33.9 % (37-47); Hemoglobin 10.4 g/dl (12.0-16.0); Imm Gran Abs Auto 0.02 X10*3/uL (0.00-0.03); Imm Gran Pct Auto 0.3 % (0.0-0.4); Lymphocytes Absolute Auto 0.4 X10*3/uL (1.2-4.9); Lymphocytes Percent Auto 6.3 % (20-40); Mean Corpuscular HGB Conc 30.7 g/dl (31.0-35.0); Mean Corpuscular Hemoglobin 28.5 pg (27.0-33.0); Mean Corpuscular Volume 92.9 fL (80-98); Mean Platelet Volume 10.4 fL (9.4-12.3); Monocytes Absolute Auto 0.4 X10*3/uL (0.1-1.2); Monocytes Percent Auto 6.1 % (2-11); Neutrophils Absolute Auto 5.5 X10*3/uL (2.0-8.3); Neutrophils Percent Auto 86.5 % (45-73); Platelet Count 155 X10*3/uL (160-400); Red Blood Count 3.65 X10*6/uL (4.20-5.50); Red Cell Distribution Width 18.9 % (11.0-16.0); White Blood Count 6.4 X10*3/uL (4.8-10.8)
[2021-05-23 11:51] LABS: INTERNATIONAL NORM RATIO 4.6 (0.9-1.1)
[2021-05-23 12:12] LABS: Alanine Aminotransferase 21 U/L (0-31); Albumin Level 3.4 g/dL (3.5-5.0); Alkaline Phosphatase 112 U/L (39-117); Anion Gap 15 (12-20); Aspartate Amino Transferase 18 U/L (5-31); Bilirubin Direct 0.4 mg/dL (0.0-0.5); Bilirubin Total 0.8 mg/dL (0.0-1.0); Blood Urea Nitrogen 43 mg/dL (9-16); Calcium 8.6 mg/dL (8.4-10.2); Carbon Dioxide 20 mmol/L (22-29); Chloride 107 mmol/L (96-108); Estimated Glomerular Filt Rate 21; Glucose Random 84 mg/dL (60-115); Lipase 77 U/L (8-78); Potassium 4.4 mmol/L (3.3-5.1); Sodium 138 mmol/L (135-145); Total Protein 6.4 g/dL (6.5-8.0)
[2021-05-23 12:45] VITALS: BP 122/58; PULSE 60; RESP 16; O2SAT 99
[2021-05-23] MEDS: Aspirin Enteric Coated 325 MG TABLET.DR PO (13:46)
[2021-05-23 14:38] VITALS: BP 130/57; PULSE 60; RESP 16; O2SAT 98
[2021-05-23 16:15] VITALS: BP 138/93; PULSE 63; RESP 16; O2SAT 99
[2021-05-23] MEDS: Magnesium Hydrox/Alum Hydrox 30 ML ORAL.SUSP PO (16:48)
[2021-05-23] MEDS: Lidocaine HCl Viscous 2 % 15 ML SOLUTION MUCOUS MEM (16:48)
[2021-05-23 18:35] VITALS: BP 132/63; PULSE 60; RESP 20; TEMP 36.9; O2SAT 98
[2021-05-23] MEDS: Famotidine 20 MG TABLET PO (19:00)
== END 2021-05-23 19:15 | disposition home or self-care (01) ==
PROVIDERS: Emergency Provider Emergency Medicine; PCP Internal Medicine
DX: K29.70 Gastritis, unspecified, without bleeding (principal); I13.0 Hypertensive heart and chronic kidney disease with heart failure and stage 1 through stage 4 chronic kidney disease, or unspecified chronic kidney disease; I50.22 Chronic systolic (congestive) heart failure; N18.4 Chronic kidney disease, stage 4 (severe); I48.0 Paroxysmal atrial fibrillation; Z79.01 Long term (current) use of anticoagulants; Z79.899 Other long term (current) drug therapy
CPT/HCPCS: 36415; 74176; 80048; 80076; 83690; 84484; 85025; 85610; 93005; 96374; 99284; 99285

== ENCOUNTER → 2021-05-24 08:49 | Outpatient (BNVA) | payer MEDICARE, SELFPAY | PROVIDERS: PCP Internal Medicine; Visit Provider Internal Medicine | DX: Z95.2 Presence of prosthetic heart valve (principal); Z51.81 Encounter for therapeutic drug level monitoring; Z79.01 Long term (current) use of anticoagulants | CPT/HCPCS: Q3014 ==

== ENCOUNTER → 2021-05-27 13:07 | Outpatient (BNVA) | payer MEDICARE, SELFPAY | PROVIDERS: PCP Internal Medicine; Visit Provider Internal Medicine | DX: Z95.2 Presence of prosthetic heart valve (principal); Z51.81 Encounter for therapeutic drug level monitoring; Z79.01 Long term (current) use of anticoagulants | CPT/HCPCS: 85610; 99211 ==

== ENCOUNTER 2021-05-28 09:44 | Emergency (ER) | payer MEDICARE, SELFPAY ==
[2021-05-28 10:06] VITALS: BP 114/68; PULSE 104; RESP 18; TEMP 36.8; O2SAT 99; BMI 21.4
[2021-05-28 10:09] VITALS: BP 112/68; BP 113/72; PULSE 104; PULSE 105
[2021-05-28 10:10] VITALS: BP 108/62; PULSE 106
--- NOTE | 2021-05-28 10:12 | ED.DIZZY ---
HPI - Dizziness General Chief Complaint: Dizziness Stated Complaint: Dizziness Time Seen by Provider: 05/28/21 10:11 Source: patient Mode of arrival: wheelchair Limitations: no limitations History of Present Illness HPI Narrative: dizziness since this morning, feels lightheaded, epigastric pain. Patient is anxious, this is the 4 th time she back for the same. She has had CT of abdomen and ultrasound for mildly elevated lipase. No pathology was found. MD elicited complaint: lightheadedness Onset (ago): week(s) Timing: gradual onset Severity: mild Associated symptoms: other (abdominal pain) Related Data Home Medications Medication Instructions Recorded Confirmed acetaminophen 325 mg capsule 325 mg PO QID PRN 08/06/20 05/23/21 vit C 250 mg-vit E 90 mg-zinc 40 1 tab PO BID 08/06/20 05/23/21 mg-copper 1 [id number] capsule ferrous sulfate 324 mg (65 mg 324 mg PO BID 11/05/20 05/23/21 iron) tablet,delayed release CALCIUM 750 MG VIT D3 750 mg PO DAILY 01/21/21 05/23/21 sennosides 8.6 mg tablet 17.2 mg PO BEDTIME PRN 02/05/21 05/23/21 furosemide 40 mg tablet 20 mg PO DAILY tab 04/03/21 05/23/21 melatonin 3 mg tablet 3 mg PO BEDTIME PRN 04/11/21 05/23/21 erythromycin 5 mg/gram (0.5 %) eye 0 mg OPHTHALMIC (EYE) DAILY 05/14/21 05/23/21 ointment vitamins A,C,W-rzde-fqxwqa 14,320 1 cap PO BID 05/14/21 05/23/21 unit-226 mg-200 unit capsule Previous Rx's Medication Instructions Recorded warfarin 2.5 mg tablet See Rx Instructions .ROUTE 08/21/20 .COMPLEX #90 tab carvedilol 25 mg tablet 25 mg PO BID 90 Days #180 tab 09/05/20 aspirin 81 mg tablet,delayed 81 mg PO DAILY #90 tab 09/17/20 release diclofenac sodium 1 % topical gel 4 g TOPICAL TID #400 g 10/23/20 levothyroxine 137 mcg tablet 137 mcg PO QAM #90 tab 11/07/20 ascorbic acid (vitamin C) 500 mg PO BID #60 cap 01/03/21 isosorbide dinitrate 5 mg tablet 5 mg PO BID #180 tab 02/28/21 colchicine 0.6 mg capsule 0.6 mg PO DAILY PRN #90 cap 03/26/21 trazodone 50 mg tablet 50 mg PO DAILY PRN #42 tab 04/07/21 omeprazole 20 mg capsule,delayed 20 mg PO DAILY #90 cap 04/26/21 release meclizine 25 mg PO TID PRN #5 tab 04/29/21 warfarin 5 mg tablet 5 mg PO DAILY 90 Days #90 tab 05/10/21 fluoxetine 10 mg capsule 10 mg PO DAILY #30 cap 05/11/21 artifi.tears(hypromellose)(PF) 0.3 1 drp OPHTHALMIC (EYE) Q4-6H PRN 05/16/21 % eye drops #10 ml rosuvastatin 10 mg tablet 10 mg PO DAILY #90 tab 05/16/21 potassium chloride 20 mEq 20 meq PO .COMPLEX #90 tab 05/20/21 tablet,extended release(part/cryst) prosthetics #1 ea 05/23/21 sucralfate 1 g PO TID #90 tab 05/23/21 Allergies Allergy/AdvReac Type Severity Reaction Status Date / Time TAPE,PAPER Allergy Unknown RASH TO Uncoded 05/23/21 09:57 PAPER TAPE Review of Systems Constitutional: Constitutional: Reports no additional constitutional complaints Eyes: Eyes: Reports no additional eye complaints ENT: Denies dizziness Cardiovascular: Cardiovascular: Reports no additional cardiovascular complaints Respiratory: Respiratory: Reports as per HPI Gastrointestinal: Gastrointestinal: Reports no additional gastrointestinal complaints Genitourinary: Genitourinary: Reports no additional female genitourinary complaints Musculoskeletal: Musculoskeletal: Reports no additional musculoskeletal complaints Integumentary/Breasts: Skin/Breast: Denies rash Neurologic: Reports system reviewed and no additional complaints, except as documented, Denies dizziness and Denies Sensory deficit (Neuro) Psychiatric: Psychiatric: Denies anxiety PMFSH Past Medical History Medical History Amyloidosis Anxiety and depression Arthritis Bladder hypertonicity Chronic atrial fibrillation Chronic HFrEF (heart failure with reduced ejection fraction) Chronic kidney disease (CKD) stage G4/A1, severely decreased glomerular filtration rate (GFR) between 15-29 mL/min/1.73 square meter and albuminuria creatinine ratio less than 30 mg/g Detached retina Gout Heart disease History of breast cancer History of breast cancer HTN (hypertension) Hypercholesterolemia Hypothyroid ICD (implantable cardioverter-defibrillator) in place Ischemic cardiomyopathy Kidney disease Nephrolithiasis Osteoarthritis Overweight (BMI 25.0-29.9) Pulmonary hypertension Thumb tendonitis Tricuspid regurgitation Urinary incontinence Surgical History H/O abdominal hysterectomy H/O mitral valve replacement H/O mitral valve replacement with mechanical valve History of bunionectomy History of cataract surgery History of colonoscopy History of left inguinal hernia repair History of sleeve gastrectomy Family History Family History Mother Diabetes Father Past heart attack Diabetes Sister Parkinsons disease Social History Social History Household Members: None Housing: Apartment Do you presently have visiting nurse or other home services: No Alcohol intake: never Patient Tobacco Use Status: Never used Tobacco Tobacco use type: Cigarette e-Cigarette/Vaping Use: Never Used Second Hand Smoke Exposure: No Advance Directives: Yes Advance Directives Information Provided: Yes Advance Directives on File: No service: No Current occupational status: disabled Current occupation: left handed Physical Exam Vital Signs: Vital Signs: Last Vital Signs Temp 98.2 F 05/28/21 10:06 Pulse 106 H 05/28/21 10:10 Resp 18 05/28/21 10:06 BP 108/62 05/28/21 10:10 Pulse Ox 99 05/28/21 10:06 Body Mass Index 21.4 Const: Other: chronically ill female in no active distress Nutritional Appearance: average body habitus Orientation/consciousness: oriented to person and patient oriented x3 Limitations: no limitations HENMT: Head: Yes normal to inspection Ears: external ears normal General nose exam: Normal external nose present Mouth: Normal oral and palatal mucosa present and oropharynx normal Throat: Yes posterior oropharynx normal Eyes: General: appearance normal, both eyes and all related structures Neck: Other: supple Neck: Yes normal visual inspection Chest: Other: old surgical scars, ICD in place Resp: Auscultation: clear to auscultation bilaterally Cardio: Other: Loud mechanical valve murmur Jugular venous distension: no JVD Rate: regular rate Rhythm: regular rhythm GI: Inspection: Yes normal to inspection Palpation (GI): Soft to palpation, nontender and No hepatosplenomegaly present Auscultation: normal bowel sounds : General: Yes no CVA tenderness Back/Spine/Pelvis: Back: no CVA tenderness Skin: General skin exam: no rashes or lesions noted Neuro: General: oriented to person and patient oriented x3 Cranial nerves: Yes CN's II-XII intact bilaterally Motor exam (neuro): 5/5 motor strength present throughout Sensory Exam: No Sensory deficit (Neuro) Extrem: Other: 3+ edema bliaterally Psych: Appearance: grossly normal Course Reevaluation(s) Reevaluation #1: Patient is at her baseline, her troponin continues to trend between mid 600s and mid 700s, lipase is barely elevated at 100 will dc home Time: 11:54 MDM - Dizziness Lab Data Result diagrams: 05/28/21 10:53 05/28/21 10:53 Labs: Lab Results 05/28/21 05/28/21 05/28/21 Range/Units 10:53 10:53 10:53 WBC 7.0 (4.8-10.8) X10*3/uL RBC 3.93 L (4.20-5.50) X10*6/uL Hgb 11.2 L (12.0-16.0) g/dl Hct 37.0 (37-47) % MCV 94.1 (80-98) fL MCH 28.5 (27.0-33.0) pg MCHC 30.3 L (31.0-35.0) g/dl RDW 18.6 H (11.0-16.0) % Plt Count 157 L (160-400) X10*3/uL MPV 11.0 (9.4-12.3) fL Immature Gran % (Auto) 0.3 (0.0-0.4) % Neut % (Auto) 85.9 H (45-73) % Lymph % (Auto) 5.9 L (20-40) % [place] % (Auto) 6.0 (2-11) % Eos % (Auto) 1.6 (0-4) % Baso % (Auto) 0.3 (0-2) % Lymph # (Auto) 0.4 L (1.2-4.9) X10*3/uL [place] # (Auto) 0.4 (0.1-1.2) X10*3/uL Eos # (Auto) 0.1 (0.0-0.4) X10*3/uL Baso # (Auto) 0.0 (0.0-0.2) X10*3/uL Abs Immat Gran (auto) 0.02 (0.00-0.03) X10*3/uL Absolute Neuts (auto) 6.0 (2.0-8.3) X10*3/uL Absolute Nucleated RBC 0.000 (0.0-0.012) X10*3/uL Nucleated RBC % (auto) 0.0 (0.0-0.2) /100WBC Sodium 138 (135-145) mmol/L Potassium 4.5 (3.3-5.1) mmol/L Chloride 108 (96-108) mmol/L Carbon Dioxide 23 (22-29) mmol/L Anion Gap 12 (12-20) BUN 44 H (9-16) mg/dL Creatinine 2.33 H (0.5-1.4) mg/dL Estim Creat Clear Calc 23.6 Estimated GFR 21 Random Glucose 143 H D (60-115) mg/dL Calcium 9.0 (8.4-10.2) mg/dL Total Bilirubin 1.2 H (0.0-1.0) mg/dL Direct Bilirubin 0.5 (0.0-0.5) mg/dL AST 24 (5-31) U/L ALT 23 (0-31) U/L Alkaline Phosphatase 126 H (39-117) U/L Troponin I High Sens (<3.5-17.0) ng/L Total Protein 6.8 (6.5-8.0) g/dL Albumin 3.5 (3.5-5.0) g/dL Lipase 110 H (8-78) U/L Urine Color Urine Appearance Urine pH (5.0-8.0) Ur Specific [place] (1.005-1.025) Urine Protein (NEG-TRACE) MG/DL Urine Glucose (UA) (NEG) MG/DL Urine Ketones (NEG) MG/DL Urine Blood (NEG) Urine Nitrite (NEG) Ur Leukocyte Esterase (NEG) Urine RBC (0) /HPF Urine WBC (0-4) /HPF Ur Squamous Epith Cells /LPF Urine Bacteria /LPF 05/28/21 05/28/21 Range/Units 10:53 10:56 WBC (4.8-10.8) X10*3/uL RBC (4.20-5.50) X10*6/uL Hgb (12.0-16.0) g/dl Hct (37-47) % MCV (80-98) fL MCH (27.0-33.0) pg MCHC (31.0-35.0) g/dl RDW (11.0-16.0) % Plt Count (160-400) X10*3/uL MPV (9.4-12.3) fL Immature Gran % (Auto) (0.0-0.4) % Neut % (Auto) (45-73) % Lymph % (Auto) (20-40) % [place] % (Auto) (2-11) % Eos % (Auto) (0-4) % Baso % (Auto) (0-2) % Lymph # (Auto) (1.2-4.9) X10*3/uL [place] # (Auto) (0.1-1.2) X10*3/uL Eos # (Auto) (0.0-0.4) X10*3/uL Baso # (Auto) (0.0-0.2) X10*3/uL Abs Immat Gran (auto) (0.00-0.03) X10*3/uL Absolute Neuts (auto) (2.0-8.3) X10*3/uL Absolute Nucleated RBC (0.0-0.012) X10*3/uL Nucleated RBC % (auto) (0.0-0.2) /100WBC Sodium (135-145) mmol/L Potassium (3.3-5.1) mmol/L Chloride (96-108) mmol/L Carbon Dioxide (22-29) mmol/L Anion Gap (12-20) BUN (9-16) mg/dL Creatinine (0.5-1.4) mg/dL Estim Creat Clear Calc Estimated GFR Random Glucose (60-115) mg/dL Calcium (8.4-10.2) mg/dL Total Bilirubin (0.0-1.0) mg/dL Direct Bilirubin (0.0-0.5) mg/dL AST (5-31) U/L ALT (0-31) U/L Alkaline Phosphatase (39-117) U/L Troponin I High Sens 774.2 H* (<3.5-17.0) ng/L Total Protein (6.5-8.0) g/dL Albumin (3.5-5.0) g/dL Lipase (8-78) U/L Urine Color YELLOW Urine Appearance HAZY Urine pH 6.0 (5.0-8.0) Ur Specific [place] 1.020 (1.005-1.025) Urine Protein 3+ H (NEG-TRACE) MG/DL Urine Glucose (UA) NEG (NEG) MG/DL Urine Ketones NEG (NEG) MG/DL Urine Blood 1+ H (NEG) Urine Nitrite NEG (NEG) Ur Leukocyte Esterase NEG (NEG) Urine RBC 1-4 (0) /HPF Urine WBC 0-2 (0-4) /HPF Ur Squamous Epith Cells NONE /LPF Urine Bacteria NONE /LPF Discharge Plan Discharge Clinical Impression: Anxiety and depression, Weakness Patient Disposition: Home, Self-Care Instructions: Weakness (ED) Prescriptions: No Action carvedilol [Coreg] 25 mg tablet 25 mg PO BID 90 Days Qty: 180 RF: 3 aspirin 81 mg tablet,delayed release (DR/EC) 81 mg PO DAILY Qty: 90 RF: 3 diclofenac sodium 1 % gel 4 g topical TID Qty: 400 RF: 11 levothyroxine 137 mcg tablet 137 mcg PO QAM Qty: 90 RF: 3 isosorbide dinitrate 5 mg tablet 5 mg PO BID Qty: 180 RF: 3 trazodone 50 mg tablet 50 mg PO DAILY PRN (Reason: for insomnia) Qty: 42 RF: 1 omeprazole 20 mg capsule,delayed release(DR/EC) 20 mg PO DAILY Qty: 90 RF: 2 warfarin 5 mg tablet 5 mg PO DAILY 90 Days Qty: 90 RF: 2 fluoxetine 10 mg capsule 10 mg PO DAILY Qty: 30 RF: 1 rosuvastatin 10 mg tablet 10 mg PO DAILY Qty: 90 RF: 2 artifi.tears(hypromellose)(PF) 0.3 % drops 1 drp ophthalmic (eye) Q4-6H PRN (Reason: dry eye(s)) Qty: 10 RF: 1 potassium chloride [Klor-Con M20] 20 mEq tablet,ER particles/crystals 20 meq PO .COMPLEX Qty: 90 RF: 5 (DME) prosthetics Kit See Rx Instructions .ROUTE .MEDSUPPLY Qty: 1 RF: 0 meclizine 25 mg tablet 25 mg PO TID PRN (Reason: dizziness) Qty: 5 RF: 0 sucralfate 1 gram tablet 1 g PO TID Qty: 90 RF: 0 furosemide 40 mg tablet 20 mg PO DAILY RF: 0 colchicine 0.6 mg capsule 0.6 mg PO DAILY PRN (Reason: Pain, Severe) Qty: 90 RF: 1 PreserVision AREDS-2 [id number] aa-rwcj-gr-mg capsule 1 tab PO BID RF: 0 acetaminophen [Tylenol] 325 mg capsule 325 mg PO QID PRN (Reason: Pain) RF: 0 warfarin 2.5 mg tablet See Rx Instructions mg .ROUTE .COMPLEX Qty: 90 RF: 2 CALCIUM 750 MG VIT D3 750 mg PO DAILY RF: 0 erythromycin 5 mg/gram (0.5 %) ointment 0 mg ophthalmic (eye) DAILY RF: 0 PreserVision AREDS [id number] szye-dx-uypv capsule 1 cap PO BID RF: 0 ferrous sulfate 324 mg (65 mg iron) tablet,delayed release (DR/EC) 324 mg PO BID RF: 0 ascorbic acid (vitamin C) 500 mg capsule, extended release 500 mg PO BID Qty: 60 RF: 5 sennosides 8.6 mg tablet 17.2 mg PO BEDTIME PRN (Reason: Constipation) RF: 0 melatonin 3 mg tablet 3 mg PO BEDTIME PRNRF: 0 Referrals: Po,aDkotah Ahumada MD [Primary Care Provider] - 5 days
--- NOTE | 2021-05-28 10:17 | ECG_ITS ---
Test Reason : DIZZINESS Blood Pressure : / mmHG Vent. Rate : 103 BPM Atrial Rate : 040 BPM P-R Int : 000 ms QRS Dur : 092 ms QT Int : 386 ms P-R-T Axes : 000 -13 234 degrees QTc Int : 505 ms Accelerated Junctional rhythm with retrograde conduction Minimal voltage criteria for LVH, may be normal variant Septal infarct , age undetermined T wave abnormality, consider inferolateral ischemia Abnormal ECG When compared with ECG of 23-MAY-2021 11:17, Junctional rhythm has replaced Electronic ventricular pacemaker Vent. rate has increased BY 42 BPM Referred By: Aj Spence Electronically Signed By:KATIA MEAD MD
[2021-05-28 11:03] LABS: MANUAL DIFF FLAG NO
[2021-05-28 11:05] LABS: Basophils Percent Auto 0.3 % (0-2); Eosinophils Absolute Auto 0.1 X10*3/uL (0.0-0.4); Eosinophils Percent Auto 1.6 % (0-4); Hemoglobin 11.2 g/dl (12.0-16.0); Imm Gran Abs Auto 0.02 X10*3/uL (0.00-0.03); Imm Gran Pct Auto 0.3 % (0.0-0.4); Lymphocytes Absolute Auto 0.4 X10*3/uL (1.2-4.9); Lymphocytes Percent Auto 5.9 % (20-40); Mean Corpuscular HGB Conc 30.3 g/dl (31.0-35.0); Mean Corpuscular Hemoglobin 28.5 pg (27.0-33.0); Mean Corpuscular Volume 94.1 fL (80-98); Monocytes Absolute Auto 0.4 X10*3/uL (0.1-1.2); Neutrophils Percent Auto 85.9 % (45-73); Platelet Count 157 X10*3/uL (160-400); Red Blood Count 3.93 X10*6/uL (4.20-5.50); Red Cell Distribution Width 18.6 % (11.0-16.0)
[2021-05-28 11:05] LABS: Appearance Urine HAZY; Color Urine YELLOW; Glucose Urine UA NEG (NEG); Leukocyte Esterase Urine NEG (NEG); Nitrite Urine NEG (NEG); Urine Blood 1+ (NEG); Urine Ketones NEG (NEG); Urine Protein 3+ MG/DL (NEG-TRACE)
[2021-05-28 11:17] LABS: WBC Urine 0-2 /HPF (0-4)
[2021-05-28 11:37] LABS: Troponin-I High Sensitivity 774.2 ng/L (<3.5-17.0)
[2021-05-28 11:38] LABS: Alanine Aminotransferase 23 U/L (0-31); Albumin Level 3.5 g/dL (3.5-5.0); Alkaline Phosphatase 126 U/L (39-117); Aspartate Amino Transferase 24 U/L (5-31); Bilirubin Direct 0.5 mg/dL (0.0-0.5); Bilirubin Total 1.2 mg/dL (0.0-1.0); Lipase 110 U/L (8-78); Total Protein 6.8 g/dL (6.5-8.0)
[2021-05-28 11:43] LABS: Anion Gap 12 (12-20); Blood Urea Nitrogen 44 mg/dL (9-16); Carbon Dioxide 23 mmol/L (22-29); Chloride 108 mmol/L (96-108); Creatinine Clr Calc Pharmacy 23.6; Estimated Glomerular Filt Rate 21; Glucose Random 143 mg/dL (60-115); Potassium 4.5 mmol/L (3.3-5.1); Sodium 138 mmol/L (135-145)
[2021-05-28 11:57] VITALS: BP 114/69; PULSE 104; RESP 16; O2SAT 96
== END 2021-05-28 12:24 | disposition home or self-care (01) ==
PROVIDERS: Emergency Provider Emergency Medicine; PCP Internal Medicine
DX: R53.1 Weakness (principal); F41.9 Anxiety disorder, unspecified; F32.9 Major depressive disorder, single episode, unspecified; I13.0 Hypertensive heart and chronic kidney disease with heart failure and stage 1 through stage 4 chronic kidney disease, or unspecified chronic kidney disease; N18.4 Chronic kidney disease, stage 4 (severe); I50.32 Chronic diastolic (congestive) heart failure; I48.20 Chronic atrial fibrillation, unspecified; Z79.01 Long term (current) use of anticoagulants; Z79.82 Long term (current) use of aspirin; Z79.899 Other long term (current) drug therapy
CPT/HCPCS: 36415; 80048; 80076; 81001; 83690; 84484; 85025; 93005; 99283; 99285

== ENCOUNTER 2021-06-03 13:09 | Outpatient (REF) | payer MEDICARE, SELFPAY ==
[2021-06-03 13:54] LABS: MANUAL DIFF FLAG NO
[2021-06-03 13:57] LABS: Basophils Percent Auto 0.2 % (0-2); Eosinophils Absolute Auto 0.1 X10*3/uL (0.0-0.4); Eosinophils Percent Auto 0.8 % (0-4); Hematocrit 34.5 % (37-47); Hemoglobin 10.4 g/dl (12.0-16.0); Imm Gran Abs Auto 0.02 X10*3/uL (0.00-0.03); Imm Gran Pct Auto 0.3 % (0.0-0.4); Lymphocytes Absolute Auto 0.5 X10*3/uL (1.2-4.9); Mean Corpuscular HGB Conc 30.1 g/dl (31.0-35.0); Mean Corpuscular Hemoglobin 28.3 pg (27.0-33.0); Mean Corpuscular Volume 93.8 fL (80-98); Mean Platelet Volume 11.9 fL (9.4-12.3); Monocytes Absolute Auto 0.5 X10*3/uL (0.1-1.2); Monocytes Percent Auto 8.2 % (2-11); Neutrophils Absolute Auto 5.1 X10*3/uL (2.0-8.3); Neutrophils Percent Auto 82.5 % (45-73); Platelet Count 134 X10*3/uL (160-400); Red Blood Count 3.68 X10*6/uL (4.20-5.50); Red Cell Distribution Width 18.4 % (11.0-16.0); White Blood Count 6.2 X10*3/uL (4.8-10.8)
[2021-06-03 14:26] LABS: Alanine Aminotransferase 19 U/L (0-31); Albumin Level 3.3 g/dL (3.5-5.0); Alkaline Phosphatase 106 U/L (39-117); Anion Gap 14 (12-20); Aspartate Amino Transferase 19 U/L (5-31); Bilirubin Total 0.7 mg/dL (0.0-1.0); Blood Urea Nitrogen 59 mg/dL (9-16); Calcium 8.2 mg/dL (8.4-10.2); Carbon Dioxide 19 mmol/L (22-29); Chloride 109 mmol/L (96-108); Estimated Glomerular Filt Rate 19; Glucose Random 103 mg/dL (60-115); Lipase 109 U/L (8-78); Potassium 4.6 mmol/L (3.3-5.1); Sodium 137 mmol/L (135-145); Total Protein 6.2 g/dL (6.5-8.0)
== END 2021-06-03 13:10 | disposition home or self-care (01) ==
LOC: HO.LAB 13:09
PROVIDERS: Internal Medicine Medical Oncology; PCP Internal Medicine; Visit Provider Internal Medicine
DX: Z95.0 Presence of cardiac pacemaker (principal); N18.4 Chronic kidney disease, stage 4 (severe); I50.22 Chronic systolic (congestive) heart failure; Z51.81 Encounter for therapeutic drug level monitoring; Z79.01 Long term (current) use of anticoagulants
CPT/HCPCS: 36415; 80053; 83690; 85025; 85610; 99211

== ENCOUNTER 2021-06-08 09:13 | Outpatient (REF) | payer MEDICARE, SELFPAY ==
[2021-06-08 10:48] LABS: Basophils Percent Auto 0.3 % (0-2); Eosinophils Absolute Auto 0.1 X10*3/uL (0.0-0.4); Eosinophils Percent Auto 1.3 % (0-4); Hematocrit 34.5 % (37-47); Hemoglobin 10.5 g/dl (12.0-16.0); Imm Gran Abs Auto 0.03 X10*3/uL (0.00-0.03); Imm Gran Pct Auto 0.4 % (0.0-0.4); Lymphocytes Absolute Auto 0.5 X10*3/uL (1.2-4.9); Lymphocytes Percent Auto 8.1 % (20-40); MANUAL DIFF FLAG NO; Mean Corpuscular HGB Conc 30.4 g/dl (31.0-35.0); Mean Corpuscular Hemoglobin 28.5 pg (27.0-33.0); Mean Corpuscular Volume 93.5 fL (80-98); Mean Platelet Volume 12.4 fL (9.4-12.3); Monocytes Absolute Auto 0.6 X10*3/uL (0.1-1.2); Monocytes Percent Auto 8.8 % (2-11); Neutrophils Absolute Auto 5.4 X10*3/uL (2.0-8.3); Neutrophils Percent Auto 81.1 % (45-73); Platelet Count 145 X10*3/uL (160-400); Red Blood Count 3.69 X10*6/uL (4.20-5.50); White Blood Count 6.7 X10*3/uL (4.8-10.8)
[2021-06-08 11:11] LABS: Anion Gap 12 (12-20); Blood Urea Nitrogen 45 mg/dL (9-16); Calcium 8.8 mg/dL (8.4-10.2); Carbon Dioxide 21 mmol/L (22-29); Chloride 109 mmol/L (96-108); Estimated Glomerular Filt Rate 23; Glucose Random 106 mg/dL (60-115); Potassium 4.4 mmol/L (3.3-5.1); Sodium 138 mmol/L (135-145)
== END 2021-06-08 09:14 | disposition home or self-care (01) ==
LOC: HO.LAB 09:13
PROVIDERS: PCP Internal Medicine; Visit Provider Internal Medicine
DX: I50.22 Chronic systolic (congestive) heart failure (principal)
CPT/HCPCS: 36415; 80048; 85025

== ENCOUNTER 2021-06-10 12:59 | Outpatient (REF) | payer MEDICARE, SELFPAY ==
[2021-06-10 14:18] LABS: MANUAL DIFF FLAG NO
[2021-06-10 14:26] LABS: Basophils Percent Auto 0.2 % (0-2); Eosinophils Absolute Auto 0.1 X10*3/uL (0.0-0.4); Hematocrit 34.7 % (37-47); Hemoglobin 10.4 g/dl (12.0-16.0); Imm Gran Abs Auto 0.02 X10*3/uL (0.00-0.03); Imm Gran Pct Auto 0.3 % (0.0-0.4); Lymphocytes Absolute Auto 0.4 X10*3/uL (1.2-4.9); Mean Corpuscular Hemoglobin 28.4 pg (27.0-33.0); Mean Corpuscular Volume 94.8 fL (80-98); Mean Platelet Volume 11.9 fL (9.4-12.3); Monocytes Absolute Auto 0.4 X10*3/uL (0.1-1.2); Monocytes Percent Auto 6.3 % (2-11); Neutrophils Absolute Auto 5.4 X10*3/uL (2.0-8.3); Neutrophils Percent Auto 85.2 % (45-73); Platelet Count 149 X10*3/uL (160-400); Red Blood Count 3.66 X10*6/uL (4.20-5.50); Red Cell Distribution Width 18.6 % (11.0-16.0); White Blood Count 6.3 X10*3/uL (4.8-10.8)
[2021-06-10 14:44] LABS: Anion Gap 12 (12-20); Blood Urea Nitrogen 41 mg/dL (9-16); Calcium 8.6 mg/dL (8.4-10.2); Carbon Dioxide 22 mmol/L (22-29); Chloride 109 mmol/L (96-108); Estimated Glomerular Filt Rate 23; Glucose Random 125 mg/dL (60-115); Potassium 4.8 mmol/L (3.3-5.1); Sodium 138 mmol/L (135-145)
[2021-06-10 14:45] LABS: Anion Gap 13 (12-20); Blood Urea Nitrogen 42 mg/dL (9-16); Calcium 8.5 mg/dL (8.4-10.2); Carbon Dioxide 22 mmol/L (22-29); Chloride 108 mmol/L (96-108); Estimated Glomerular Filt Rate 23; Potassium 4.8 mmol/L (3.3-5.1); Sodium 138 mmol/L (135-145)
== END 2021-06-10 13:00 | disposition home or self-care (01) ==
LOC: HO.LAB 12:59
PROVIDERS: Absent Provider Internal Medicine; PCP Internal Medicine; Visit Provider Internal Medicine Hypertension Specialist
DX: Z95.810 Presence of automatic (implantable) cardiac defibrillator (principal); N18.9 Chronic kidney disease, unspecified; I50.22 Chronic systolic (congestive) heart failure; Z51.81 Encounter for therapeutic drug level monitoring; Z79.01 Long term (current) use of anticoagulants
CPT/HCPCS: 36415; 80048; 80051; 82310; 82565; 84520; 85025; 85610; 99211

== ENCOUNTER 2021-06-15 13:04 | Emergency (ER) | payer MEDICARE, SELFPAY ==
[2021-06-15 13:19] VITALS: BP 128/61; PULSE 77; RESP 16; TEMP 37.1; O2SAT 98; BMI 21.9
[2021-06-15 16:08] LABS: MANUAL DIFF FLAG NO
[2021-06-15 16:09] LABS: Hematocrit 34.3 % (37-47); Hemoglobin 10.4 g/dl (12.0-16.0); Imm Gran Pct Auto 0.3 % (0.0-0.4); Lymphocytes Percent Auto 7.1 % (20-40); Mean Corpuscular HGB Conc 30.3 g/dl (31.0-35.0); Mean Corpuscular Hemoglobin 28.4 pg (27.0-33.0); Mean Corpuscular Volume 93.7 fL (80-98); Monocytes Percent Auto 8.9 % (2-11); Neutrophils Percent Auto 82.2 % (45-73); Platelet Count 115 X10*3/uL (160-400); Red Blood Count 3.66 X10*6/uL (4.20-5.50); White Blood Count 5.8 X10*3/uL (4.8-10.8)
[2021-06-15 16:10] LABS: Basophils Percent Auto 0.3 % (0-2); Eosinophils Absolute Auto 0.1 X10*3/uL (0.0-0.4); Eosinophils Percent Auto 1.2 % (0-4); Imm Gran Abs Auto 0.02 X10*3/uL (0.00-0.03); Lymphocytes Absolute Auto 0.4 X10*3/uL (1.2-4.9); Monocytes Absolute Auto 0.5 X10*3/uL (0.1-1.2); Neutrophils Absolute Auto 4.7 X10*3/uL (2.0-8.3)
[2021-06-15 16:15] LABS: INTERNATIONAL NORM RATIO 2.6 (0.9-1.1); Prothrombin Time 29.7 SEC (9.9-13.0)
--- NOTE | 2021-06-15 16:29 | ED.EPISTAXIS ---
History of Present Illness General Chief Complaint: General Medical Stated Complaint: Bloody nose Time Seen by Provider: 06/15/21 15:05 Source: patient and EMS Mode of arrival: ambulatory Limitations: no limitations History of Present Illness HPI Narrative: 70-year-old female with a past medical history of atrial fibrillation on Coumadin with a mechanical valve at the mitral valve, valve regurgitation, PPM/ICD, ischemic cardiomyopathy, CHF, hypertension, pulmonary hypertension, hyperlipidemia, CKD, hypothyroidism, amyloidosis under hematology oncology, ischemic cardiomyopathy and history of breast cancer presenting to the ED with complaints of intermittent episodes of epistaxis over the past 2 days. Reports since yesterday she has intermittently been sneezing and had a runny nose and she has been picking at her nose as well over the past 2 days. Otherwise she denies any falls, trauma, dizziness, headaches, change of vision, sore throat, cough, chest pain, shortness of breath, palpitation, abdominal pain, nausea/vomiting/diarrhea or constipation, dysuria, recent travel or sick contacts or any other symptoms complaints or concerns at this time. Location: Yes right nares Onset/current episode: Yes day(s) (Over the past 2 days) Duration: Yes intermittent Context: Yes digital trauma, Yes warfarin use, Yes hypertension and Yes recent /current URI Associated symptoms: Yes other (Nasal congestion/rhinorrhea) Treatment prior to arrival: Yes nose pinching, Yes head leaning forward and Yes stuff nose with tissue Related Data Home Medications Medication Instructions Recorded Confirmed acetaminophen 325 mg capsule 325 mg PO QID PRN 08/06/20 06/10/21 (Tylenol) vit C 250 mg-vit E 90 mg-zinc 40 1 tab PO BID 08/06/20 06/10/21 mg-copper 1 jo-bhaeyo-bjtjpo capsule (PreserVision AREDS-2) ferrous sulfate 324 mg (65 mg 324 mg PO BID 11/05/20 06/10/21 iron) tablet,delayed release CALCIUM 750 MG VIT D3 750 mg PO DAILY 01/21/21 06/10/21 sennosides 8.6 mg tablet 17.2 mg PO BEDTIME PRN 02/05/21 06/10/21 furosemide 40 mg tablet 20 mg PO DAILY tab 04/03/21 06/10/21 melatonin 3 mg tablet 3 mg PO BEDTIME PRN 04/11/21 06/10/21 erythromycin 5 mg/gram (0.5 %) eye 0 mg OPHTHALMIC (EYE) DAILY 05/14/21 06/10/21 ointment vitamins A,C,G-ydyp-ciroeq 14,320 1 cap PO BID 05/14/21 06/10/21 unit-226 mg-200 unit capsule Previous Rx's Medication Instructions Recorded warfarin 2.5 mg tablet See Rx Instructions .ROUTE 08/21/20 .COMPLEX #90 tab carvedilol 25 mg tablet (Coreg) 25 mg PO BID 90 Days #180 tab 09/05/20 aspirin 81 mg tablet,delayed 81 mg PO DAILY #90 tab 09/17/20 release diclofenac sodium 1 % topical gel 4 g TOPICAL TID #400 g 10/23/20 levothyroxine 137 mcg tablet 137 mcg PO QAM #90 tab 11/07/20 ascorbic acid (vitamin C) 500 mg 500 mg PO BID #60 cap 01/03/21 capsule,extended release isosorbide dinitrate 5 mg tablet 5 mg PO BID #180 tab 02/28/21 colchicine 0.6 mg capsule 0.6 mg PO DAILY PRN #90 cap 03/26/21 trazodone 50 mg tablet 50 mg PO DAILY PRN #42 tab 04/07/21 omeprazole 20 mg capsule,delayed 20 mg PO DAILY #90 cap 04/26/21 release meclizine 25 mg tablet 25 mg PO TID PRN #5 tab 04/29/21 warfarin 5 mg tablet 5 mg PO DAILY 90 Days #90 tab 05/10/21 artifi.tears(hypromellose)(PF) 0.3 1 drp OPHTHALMIC (EYE) Q4-6H PRN 05/16/21 % eye drops #10 ml rosuvastatin 10 mg tablet 10 mg PO DAILY #90 tab 05/16/21 potassium chloride 20 mEq 20 meq PO .COMPLEX #90 tab 05/20/21 tablet,extended release(part/cryst) (Klor-Con M) prosthetics #1 ea 05/23/21 sucralfate 1 gram tablet 1 g PO TID #90 tab 05/23/21 fluoxetine 20 mg capsule 20 mg PO DAILY 30 Days #30 cap 06/03/21 oxymetazoline 0.05 % nasal mist 2 spray INTRANASAL Q12H PRN 3 Days 06/15/21 (Afrin (oxymetazoline)) #15 ml Allergies Allergy/AdvReac Type Severity Reaction Status Date / Time TAPE,PAPER Allergy Unknown RASH TO Uncoded 05/23/21 09:57 PAPER TAPE Review of Systems Review of Systems: Constitutional : No Fever, No Chills, positive anticoagulation ENT/Mouth : No Ear Pain, positive rhinorrhea/Nasal Congestion, positive nose bleed Eyes: No Eye Pain, No Swelling, No Redness Cardiovascular : No Chest Pain, No SOB Respiratory : No Cough, No Sputum Gastrointestinal : No Nausea, No Vomiting, No Diarrhea Genitourinary : No Dysuria, No Hematuria Musculoskeletal : No joint pain, No Myalgias Skin : No Skin Lesions, No rash Neuro : No Weakness, No Numbness, No headache Psych : No Anxiety/Panic, No Depression Heme/Lymph: No Bleeding,No Lymphadenopathy Endocrine : No Polyuria, No Polydipsia Yes all other systems are reviewed and are negative [facility] Past Medical History Attestation statement: The following information was validated with the patient. Medical History Amyloidosis Anxiety and depression Arthritis Bladder hypertonicity Chronic atrial fibrillation Chronic HFrEF (heart failure with reduced ejection fraction) Chronic kidney disease (CKD) stage G4/A1, severely decreased glomerular filtration rate (GFR) between 15-29 mL/min/1.73 square meter and albuminuria creatinine ratio less than 30 mg/g Detached retina Gout Heart disease History of breast cancer History of breast cancer HTN (hypertension) Hypercholesterolemia Hypothyroid ICD (implantable cardioverter-defibrillator) in place Ischemic cardiomyopathy Kidney disease Nephrolithiasis Osteoarthritis Overweight (BMI 25.0-29.9) Pulmonary hypertension Thumb tendonitis Tricuspid regurgitation Urinary incontinence Surgical History H/O abdominal hysterectomy H/O mitral valve replacement H/O mitral valve replacement with mechanical valve History of bunionectomy History of cataract surgery History of colonoscopy History of left inguinal hernia repair History of sleeve gastrectomy Family History Family History Mother Diabetes Father Past heart attack Diabetes Sister Parkinsons disease Social History Social History Household Members: None Housing: Apartment Do you presently have visiting nurse or other home services: No Alcohol intake: never Patient Tobacco Use Status: Never used Tobacco Tobacco use type: Cigarette e-Cigarette/Vaping Use: Never Used Second Hand Smoke Exposure: No Advance Directives: No Advance Directives Information Provided: No service: No Current occupational status: disabled Current occupation: left handed Physical Exam Vital Signs: Vital Signs: Last Vital Signs Temp 98.7 F 06/15/21 13:19 Pulse 77 06/15/21 13:19 Resp 16 06/15/21 13:19 BP 128/61 06/15/21 13:19 Pulse Ox 98 06/15/21 13:19 Body Mass Index 21.9 vital signs have been reviewed as normal and appeared to be correct. Blood pressure normal. Heart rate normal. Respiration rate normal. Temperature normal. Oxygen saturation normal. Appearance: Alert. Oriented X3. No acute distress. Head: Normal external exam. Normocephalic. Atraumatic. Eyes: PERRLA. EOMI. Conjunctiva and sclera normal. Eyelids normal. ENT: EAC normal. TM's Normal. Patient with dried blood to right Nare. When I removed the blood there is no active bleeding/foreign bodies/septal hematoma or abrasions that I can visualize. No blood in the posterior pharynx. Pharynx normal. Uvula midline. Moist mucous membranes. No trismus noted. No drooling noted. No muffled voice noted. Neck: Normal inspection. Neck supple. FROM. No adenopathy. Thyroid Normal. No meningeal signs. No neck mass noted. CVS: Normal heart rate and rhythm. Heart sound normal. Pulses normal throughout. No murmurs/rales/gallops. Respiratory: No respiratory distress. Painless inspiration. Breath sounds normal. No wheezes/rales/rhonchi noted. Chest nontender. No accessory muscle usage noted or decreased air movement noted. Back: Full range of motion noted. No rashes/lesion/induration/fluctuance or signs of infection noted. Skin: Skin warm and dry. Normal skin color. Normal skin turgor. No rashes/lesions/lacerations noted. Extremities: Extremities exhibit normal range of motion. Extremities nontender. Neuro: Oriented X 3. No motor deficit. No sensory deficit. Reflexes normal. Normal steady gait. No focal neuro deficits noted. Vascular: + radial pulses/+ 2 distal pedal pulses/+2 dorsalis pedis b/l. Normal cap refill. No cyanosis noted to upper extremity nails and lower extremity toes nails. Course Course Course Narrative: 15pm - 70-year-old female with a past medical history of atrial fibrillation on Coumadin with a mechanical valve at the mitral valve, valve regurgitation, PPM/ICD, ischemic cardiomyopathy, CHF, hypertension, pulmonary hypertension, hyperlipidemia, CKD, hypothyroidism, amyloidosis under hematology oncology, ischemic cardiomyopathy and history of breast cancer presenting to the ED with complaints of intermittent episodes of epistaxis over the past 2 days. Reports since yesterday she has intermittently been sneezing and had a runny nose and she has been picking at her nose as well over the past 2 days. - On exam patient is noted to have dried blood to the right Nare when I removed the blood with normal saline and gauze there is no active bleeding/septal hematoma/signs of trauma or abrasions noted. No bleeding noted at this time therefore no intervention indicated except for labs indicated. Plan: Labs and re-evaluate. Reevaluation(s) Reevaluation #1: - labs reviewed and patient with a mild baseline anemia similar when compared to prior. She has a chronically low platelet count today is at 01:15. Her PT INR is within normal limits for the patient her PT is 29.7. INR 2.6. Carbon dioxide 21. Patient has a mild elevated BUN and creatinine which is improved when compared to prior today it is 43/1.94. Total protein 6.3. Albumin 3.5. Otherwise all other labs are within normal limits. - patient not having any active epistaxis at this time therefore will DC home with a script for Afrin and instructions to return if any new or worsening symptoms to follow up with primary care provider and to take her prescription medications as previously prescribed. Patient understands agrees with this plan. Time: 16:41 [facility] - Epistaxis Medical Records Attestation: I reviewed the patient's medical records. Lab Data Attestation: I reviewed the patient's lab results. Result diagrams: 06/15/21 16:06/15/21 16: Labs: Lab Results 06/15/21 06/15/21 06/15/21 Range/Units 16:01 16:01 16:01 WBC 5.8 (4.8-10.8) X10*3/uL RBC 3.66 L (4.20-5.50) X10*6/uL Hgb 10.4 L (12.0-16.0) g/dl Hct 34.3 L (37-47) % MCV 93.7 (80-98) fL MCH 28.4 (27.0-33.0) pg MCHC 30.3 L (31.0-35.0) g/dl RDW 18.0 H (11.0-16.0) % Plt Count 115 L (160-400) X10*3/uL MPV 11.0 (9.4-12.3) fL Immature Gran % (Auto) 0.3 (0.0-0.4) % Neut % (Auto) 82.2 H (45-73) % Lymph % (Auto) 7.1 L (20-40) % [place] % (Auto) 8.9 (2-11) % Eos % (Auto) 1.2 (0-4) % Baso % (Auto) 0.3 (0-2) % Lymph # (Auto) 0.4 L (1.2-4.9) X10*3/uL [place] # (Auto) 0.5 (0.1-1.2) X10*3/uL Eos # (Auto) 0.1 (0.0-0.4) X10*3/uL Baso # (Auto) 0.0 (0.0-0.2) X10*3/uL Abs Immat Gran (auto) 0.02 (0.00-0.03) X10*3/uL Absolute Neuts (auto) 4.7 (2.0-8.3) X10*3/uL Absolute Nucleated RBC 0.000 (0.0-0.012) X10*3/uL Nucleated RBC % (auto) 0.0 (0.0-0.2) /100WBC PT 29.7 H D (9.9-13.0) SEC INR 2.6 H (0.9-1.1) Sodium 139 (135-145) mmol/L Potassium 4.8 (3.3-5.1) mmol/L Chloride 108 (96-108) mmol/L Carbon Dioxide 21 L (22-29) mmol/L Anion Gap 15 (12-20) BUN 43 H (9-16) mg/dL Creatinine 1.94 H (0.5-1.4) mg/dL Estim Creat Clear Calc 28.6 Estimated GFR 26 Random Glucose 96 (60-115) mg/dL Calcium 8.6 (8.4-10.2) mg/dL Magnesium 2.2 (1.6-2.6) mg/dL Total Bilirubin 0.9 (0.0-1.0) mg/dL AST 20 (5-31) U/L ALT 21 (0-31) U/L Alkaline Phosphatase 114 (39-117) U/L Total Protein 6.3 L (6.5-8.0) g/dL Albumin 3.4 L (3.5-5.0) g/dL Discharge Plan Discharge Clinical Impression: Current use of anticoagulant therapy, Epistaxis Patient Disposition: Home, Self-Care Instructions: Nosebleed (ED) Prescriptions: New Afrin (oxymetazoline) 0.05 % mist 2 spray intranasal Q12H PRN (Reason: nasal congestion) 3 Days Qty: 15 RF: 0 No Action carvedilol [Coreg] 25 mg tablet 25 mg PO BID 90 Days Qty: 180 RF: 3 aspirin 81 mg tablet,delayed release (DR/EC) 81 mg PO DAILY Qty: 90 RF: 3 diclofenac sodium 1 % gel 4 g topical TID Qty: 400 RF: 11 levothyroxine 137 mcg tablet 137 mcg PO QAM Qty: 90 RF: 3 isosorbide dinitrate 5 mg tablet 5 mg PO BID Qty: 180 RF: 3 trazodone 50 mg tablet 50 mg PO DAILY PRN (Reason: for insomnia) Qty: 42 RF: 1 omeprazole 20 mg capsule,delayed release(DR/EC) 20 mg PO DAILY Qty: 90 RF: 2 warfarin 5 mg tablet 5 mg PO DAILY 90 Days Qty: 90 RF: 2 rosuvastatin 10 mg tablet 10 mg PO DAILY Qty: 90 RF: 2 artifi.tears(hypromellose)(PF) 0.3 % drops 1 drp ophthalmic (eye) Q4-6H PRN (Reason: dry eye(s)) Qty: 10 RF: 1 potassium chloride [Klor-Con M20] 20 mEq tablet,ER particles/crystals 20 meq PO .COMPLEX Qty: 90 RF: 5 (DME) prosthetics Kit See Rx Instructions .ROUTE .MEDPPLY Qty: 1 RF: 0 fluoxetine 20 mg capsule 20 mg PO DAILY 30 Days Qty: 30 RF: 2 meclizine 25 mg tablet 25 mg PO TID PRN (Reason: dizziness) Qty: 5 RF: 0 sucralfate 1 gram tablet 1 g PO TID Qty: 90 RF: 0 furosemide 40 mg tablet 20 mg PO DAILY RF: 0 colchicine 0.6 mg capsule 0.6 mg PO DAILY PRN (Reason: Pain, Severe) Qty: 90 RF: 1 PreserVision AREDS-2 [id number] ra-todf-[id number]-mg capsule 1 tab PO BID RF: 0 acetaminophen [Tylenol] 325 mg capsule 325 mg PO QID PRN (Reason: Pain) RF: 0 warfarin 2.5 mg tablet See Rx Instructions mg .ROUTE .COMPLEX Qty: 90 RF: 2 CALCIUM 750 MG VIT D3 750 mg PO DAILY RF: 0 erythromycin 5 mg/gram (0.5 %) ointment 0 mg ophthalmic (eye) DAILY RF: 0 PreserVision AREDS [id number] qbja-he-fobd capsule 1 cap PO BID RF: 0 ferrous sulfate 324 mg (65 mg iron) tablet,delayed release (DR/EC) 324 mg PO BID RF: 0 ascorbic acid (vitamin C) 500 mg capsule, extended release 500 mg PO BID Qty: 60 RF: 5 sennosides 8.6 mg tablet 17.2 mg PO BEDTIME PRN (Reason: Constipation) RF: 0 melatonin 3 mg tablet 3 mg PO BEDTIME PRNRF: 0 Referrals: Po,Dakotah Ahumada MD [Primary Care Provider] - 2 days Print Language: Tunisian
[2021-06-15 16:36] LABS: Alanine Aminotransferase 21 U/L (0-31); Albumin Level 3.4 g/dL (3.5-5.0); Alkaline Phosphatase 114 U/L (39-117); Anion Gap 15 (12-20); Aspartate Amino Transferase 20 U/L (5-31); Bilirubin Total 0.9 mg/dL (0.0-1.0); Blood Urea Nitrogen 43 mg/dL (9-16); Calcium 8.6 mg/dL (8.4-10.2); Carbon Dioxide 21 mmol/L (22-29); Chloride 108 mmol/L (96-108); Creatinine Clr Calc Pharmacy 28.6; Estimated Glomerular Filt Rate 26; Glucose Random 96 mg/dL (60-115); Magnesium 2.2 mg/dL (1.6-2.6); Potassium 4.8 mmol/L (3.3-5.1); Sodium 139 mmol/L (135-145); Total Protein 6.3 g/dL (6.5-8.0)
--- NOTE | 2021-06-15 17:54 | PC.NURSE ---
PT WAS SITTING IN WR AWAITING RIDE AND NOTED A SCANT AMOUNT OF BLOOD FROM NARE . PROVIDER REASSESSED AND ORDERED AFRIN
== END 2021-06-15 18:38 | disposition home or self-care (01) ==
PROVIDERS: Physician Assistant Medical; Emergency Provider Emergency Medicine Emergency Medical Services; PCP Internal Medicine
DX: R04.0 Epistaxis (principal); I48.91 Unspecified atrial fibrillation; Z79.01 Long term (current) use of anticoagulants; I13.0 Hypertensive heart and chronic kidney disease with heart failure and stage 1 through stage 4 chronic kidney disease, or unspecified chronic kidney disease; N18.4 Chronic kidney disease, stage 4 (severe); I50.9 Heart failure, unspecified; Z95.2 Presence of prosthetic heart valve; Z79.82 Long term (current) use of aspirin; Z79.899 Other long term (current) drug therapy
CPT/HCPCS: 36415; 80053; 83735; 85025; 85610; 99283

== ENCOUNTER 2021-06-16 03:54 | Emergency (ER) | payer MEDICARE, SELFPAY ==
[2021-06-16 04:10] VITALS: BP 140/76; PULSE 77; RESP 18; TEMP 36.4; O2SAT 97; BMI 20.7
[2021-06-16 04:38] VITALS: BP 136/74; PULSE 66; RESP 18; O2SAT 98
--- NOTE | 2021-06-16 04:40 | PC.NURSE ---
nose clip placed to help stop the nasal bleeding. pt has blooed noted in the back of her throat and slowly draining from both nares. ptis on coumadin. last inr was checked at this hospital yesterday.
--- NOTE | 2021-06-16 05:03 | ED.GENADULT ---
HPI - General Adult General Chief complaint: General Medical Stated complaint: Nose bleed Time Seen by Provider: 06/16/21 04:01 Source: patient Mode of arrival: ambulatory Limitations: no limitations History of Present Illness HPI narrative: Patient comes to emergency room complaining of epistaxis from the right nostril, patient is on Coumadin. Patient states she was seen here yesterday, INR was checked, was that level. Prior to discharge she had a small nosebleed but he was successfully stopped. After she arrived home she started bleeding again. Patient denies picking her nose, no trauma. Related Data Home Medications Medication Instructions Recorded Confirmed acetaminophen 325 mg capsule 325 mg PO QID PRN 08/06/20 06/10/21 (Tylenol) vit C 250 mg-vit E 90 mg-zinc 40 1 tab PO BID 08/06/20 06/10/21 mg-copper 1 ju-uwrcmu-lhxedo capsule (PreserVision AREDS-2) ferrous sulfate 324 mg (65 mg 324 mg PO BID 11/05/20 06/10/21 iron) tablet,delayed release CALCIUM 750 MG VIT D3 750 mg PO DAILY 01/21/21 06/10/21 sennosides 8.6 mg tablet 17.2 mg PO BEDTIME PRN 02/05/21 06/10/21 furosemide 40 mg tablet 20 mg PO DAILY tab 04/03/21 06/10/21 melatonin 3 mg tablet 3 mg PO BEDTIME PRN 04/11/21 06/10/21 erythromycin 5 mg/gram (0.5 %) eye 0 mg OPHTHALMIC (EYE) DAILY 05/14/21 06/10/21 ointment vitamins A,C,C-tldw-jbdmmy 14,320 1 cap PO BID 05/14/21 06/10/21 unit-226 mg-200 unit capsule Previous Rx's Medication Instructions Recorded warfarin 2.5 mg tablet See Rx Instructions .ROUTE 08/21/20 .COMPLEX #90 tab carvedilol 25 mg tablet (Coreg) 25 mg PO BID 90 Days #180 tab 09/05/20 aspirin 81 mg tablet,delayed 81 mg PO DAILY #90 tab 09/17/20 release diclofenac sodium 1 % topical gel 4 g TOPICAL TID #400 g 10/23/20 levothyroxine 137 mcg tablet 137 mcg PO QAM #90 tab 11/07/20 ascorbic acid (vitamin C) 500 mg 500 mg PO BID #60 cap 01/03/21 capsule,extended release isosorbide dinitrate 5 mg tablet 5 mg PO BID #180 tab 02/28/21 colchicine 0.6 mg capsule 0.6 mg PO DAILY PRN #90 cap 03/26/21 trazodone 50 mg tablet 50 mg PO DAILY PRN #42 tab 04/07/21 omeprazole 20 mg capsule,delayed 20 mg PO DAILY #90 cap 04/26/21 release meclizine 25 mg tablet 25 mg PO TID PRN #5 tab 04/29/21 warfarin 5 mg tablet 5 mg PO DAILY 90 Days #90 tab 05/10/21 artifi.tears(hypromellose)(PF) 0.3 1 drp OPHTHALMIC (EYE) Q4-6H PRN 05/16/21 % eye drops #10 ml rosuvastatin 10 mg tablet 10 mg PO DAILY #90 tab 05/16/21 potassium chloride 20 mEq 20 meq PO .COMPLEX #90 tab 05/20/21 tablet,extended release(part/cryst) (Klor-Con M) prosthetics #1 ea 05/23/21 sucralfate 1 gram tablet 1 g PO TID #90 tab 05/23/21 fluoxetine 20 mg capsule 20 mg PO DAILY 30 Days #30 cap 06/03/21 oxymetazoline 0.05 % nasal mist 2 spray INTRANASAL Q12H PRN 3 Days 06/15/21 (Afrin (oxymetazoline)) #15 ml cephalexin 500 mg capsule 500 mg PO BID #10 cap 06/16/21 Allergies Allergy/AdvReac Type Severity Reaction Status Date / Time TAPE,PAPER Allergy Unknown RASH TO Uncoded 05/23/21 09:57 PAPER TAPE Review of Systems Review of Systems: Constitutional : No Weight loss, No Fever, No Chills, No Night Sweats, No Fatigue, No Malaise ENT/Mouth : Complaining of epistaxis from the right nostril, No Hearing loss, No Ear Pain, No Nasal Congestion, No Sinus Pain, No Hoarseness, No sore throat, No Rhinorrhea, No Swallowing Difficulty Eyes: No Eye Pain, No Swelling, No Redness, No Foreign Body, No Discharge, No Vision Changes Cardiovascular : No Chest Pain, No SOB, No Dyspnea on Exertion, No Orthopnea, No Edema, No Palpitations Respiratory : No Cough, No Sputum, No Wheezing, No Smoke Exposure, No Dyspnea Gastrointestinal : No Nausea, No Vomiting, No Diarrhea, No Constipation, No abdominal Pain, No Hematochezia, No Melena Genitourinary : no irregular bleeding, No Dysuria, No Urinary Frequency, No Hematuria, No Urinary Incontinence, No Urgency, No Flank Pain, No Urinary Flow Changes, No Hesitancy Musculoskeletal : No joint pain, No Myalgias, No Joint Swelling Skin : No Skin Lesions, No rash Neuro : No Weakness, No Numbness, No Paresthesias, No Loss of Consciousness, No Dizziness, No Headache Psych : No Anxiety/Panic, No Depression, No SI/HI/AH/VH, No Social Issues, Heme/Lymph: No Bruising, No Bleeding,No Lymphadenopathy Endocrine : No Polyuria, No Polydipsia, No Temperature Intolerance [facility] Past Medical History Medical History Amyloidosis Anxiety and depression Arthritis Bladder hypertonicity Chronic atrial fibrillation Chronic HFrEF (heart failure with reduced ejection fraction) Chronic kidney disease (CKD) stage G4/A1, severely decreased glomerular filtration rate (GFR) between 15-29 mL/min/1.73 square meter and albuminuria creatinine ratio less than 30 mg/g Detached retina Gout Heart disease History of breast cancer History of breast cancer HTN (hypertension) Hypercholesterolemia Hypothyroid ICD (implantable cardioverter-defibrillator) in place Ischemic cardiomyopathy Kidney disease Nephrolithiasis Osteoarthritis Overweight (BMI 25.0-29.9) Pulmonary hypertension Thumb tendonitis Tricuspid regurgitation Urinary incontinence Surgical History H/O abdominal hysterectomy H/O mitral valve replacement H/O mitral valve replacement with mechanical valve History of bunionectomy History of cataract surgery History of colonoscopy History of left inguinal hernia repair History of sleeve gastrectomy Family History Family History Mother Diabetes Father Past heart attack Diabetes Sister Parkinsons disease Social History Social History Household Members: None Housing: Apartment Do you presently have visiting nurse or other home services: No Alcohol intake: never Patient Tobacco Use Status: Never used Tobacco Tobacco use type: Cigarette e-Cigarette/Vaping Use: Never Used Second Hand Smoke Exposure: No Advance Directives: No Advance Directives Information Provided: Yes service: No Current occupational status: disabled Current occupation: left handed Physical Exam Vital Signs: Vital Signs: Last Vital Signs Temp 97.6 F 06/16/21 04:10 Pulse 66 06/16/21 04:38 Resp 18 06/16/21 04:38 BP 136/74 06/16/21 04:38 Pulse Ox 98 06/16/21 04:38 Body Mass Index 20.7 Const: Other: Appearance: Alert. Oriented X3. No acute distress. Eyes: Pupils equal, round and reactive to light. ENT: Mild to moderate active bleeding from the right nostril Neck: Normal inspection. Neck supple. No lymph nodes noted. No crepitus CVS: Normal heart rate and rhythm. Pulses normal. Normal S1 and S2 Respiratory: No respiratory distress. Breath sounds normal. No Wheezing. No rales Abdomen: Soft and nontender. No rigidity. No distention. good BS x4 Skin: Skin warm and dry. Normal skin color. Normal skin turgor. Extremities: No lower extremity edema. No lower extremity edema. No Lacerations. No Rash Neuro: Oriented X 3. No motor deficit. No sensory deficit. Moving all extermities. No slurred speech. Course Course Course Narrative: Patient's nose was sprayed with Afrin, but the bleeding did not stop. I discussed with the patient inserting a rhino rocket, patient agree with plan. Patient has now a rhino rocket in the right nostril, bleeding stopped. Patient will be sent home with antibiotics, instructed to return in 48 hours for removal of rhino rocket. Patient's H&H stable, INR 2.8 Medical Decision Making Lab Data Result diagrams: 06/16/21 05:35 06/16/21 05:35 Labs: Lab Results 06/16/21 06/16/21 06/16/21 Range/Units 05:35 05:35 05:35 WBC 7.8 (4.8-10.8) X10*3/uL RBC 3.57 L (4.20-5.50) X10*6/uL Hgb 10.3 L (12.0-16.0) g/dl Hct 33.6 L (37-47) % MCV 94.1 (80-98) fL MCH 28.9 (27.0-33.0) pg MCHC 30.7 L (31.0-35.0) g/dl RDW 17.9 H (11.0-16.0) % Plt Count 125 L (160-400) X10*3/uL MPV 11.2 (9.4-12.3) fL Immature Gran % (Auto) 0.4 (0.0-0.4) % Neut % (Auto) 81.5 H (45-73) % Lymph % (Auto) 6.5 L (20-40) % [place] % (Auto) 9.5 (2-11) % Eos % (Auto) 1.7 (0-4) % Baso % (Auto) 0.4 (0-2) % Lymph # (Auto) 0.5 L (1.2-4.9) X10*3/uL [place] # (Auto) 0.7 (0.1-1.2) X10*3/uL Eos # (Auto) 0.1 (0.0-0.4) X10*3/uL Baso # (Auto) 0.0 (0.0-0.2) X10*3/uL Abs Immat Gran (auto) 0.03 (0.00-0.03) X10*3/uL Absolute Neuts (auto) 6.4 (2.0-8.3) X10*3/uL Absolute Nucleated RBC 0.000 (0.0-0.012) X10*3/uL Nucleated RBC % (auto) 0.0 (0.0-0.2) /100WBC PT 32.8 H (9.9-13.0) SEC INR 2.8 H (0.9-1.1) Sodium 139 (135-145) mmol/L Potassium 4.5 (3.3-5.1) mmol/L Chloride 108 (96-108) mmol/L Carbon Dioxide 23 (22-29) mmol/L Anion Gap 13 (12-20) BUN 45 H (9-16) mg/dL Creatinine 2.02 H (0.5-1.4) mg/dL Estim Creat Clear Calc 26.4 Estimated GFR 24 Random Glucose 115 (60-115) mg/dL Calcium 8.6 (8.4-10.2) mg/dL Discharge Plan Discharge Clinical Impression: Epistaxis Patient Disposition: Home, Self-Care Instructions: Nosebleed (ED) Additional Instructions: The need to return in 48 hours for removal of the nasal packing. If you have any new symptoms, please return to the emergency room. Prescriptions: New cephalexin 500 mg capsule 500 mg PO BID Qty: 10 RF: 0 No Action carvedilol [Coreg] 25 mg tablet 25 mg PO BID 90 Days Qty: 180 RF: 3 aspirin 81 mg tablet,delayed release (DR/EC) 81 mg PO DAILY Qty: 90 RF: 3 diclofenac sodium 1 % gel 4 g topical TID Qty: 400 RF: 11 levothyroxine 137 mcg tablet 137 mcg PO QAM Qty: 90 RF: 3 isosorbide dinitrate 5 mg tablet 5 mg PO BID Qty: 180 RF: 3 trazodone 50 mg tablet 50 mg PO DAILY PRN (Reason: for insomnia) Qty: 42 RF: 1 omeprazole 20 mg capsule,delayed release(DR/EC) 20 mg PO DAILY Qty: 90 RF: 2 warfarin 5 mg tablet 5 mg PO DAILY 90 Days Qty: 90 RF: 2 rosuvastatin 10 mg tablet 10 mg PO DAILY Qty: 90 RF: 2 artifi.tears(hypromellose)(PF) 0.3 % drops 1 drp ophthalmic (eye) Q4-6H PRN (Reason: dry eye(s)) Qty: 10 RF: 1 potassium chloride [Klor-Con M20] 20 mEq tablet,ER particles/crystals 20 meq PO .COMPLEX Qty: 90 RF: 5 (DME) prosthetics Kit See Rx Instructions .ROUTE .MEDSUPPLY Qty: 1 RF: 0 fluoxetine 20 mg capsule 20 mg PO DAILY 30 Days Qty: 30 RF: 2 meclizine 25 mg tablet 25 mg PO TID PRN (Reason: dizziness) Qty: 5 RF: 0 sucralfate 1 gram tablet 1 g PO TID Qty: 90 RF: 0 Afrin (oxymetazoline) 0.05 % mist 2 spray intranasal Q12H PRN (Reason: nasal congestion) 3 Days Qty: 15 RF: 0 furosemide 40 mg tablet 20 mg PO DAILY RF: 0 colchicine 0.6 mg capsule 0.6 mg PO DAILY PRN (Reason: Pain, Severe) Qty: 90 RF: 1 PreserVision AREDS-2 134-217-27-1 is-nhhx-ze-mg capsule 1 tab PO BID RF: 0 acetaminophen [Tylenol] 325 mg capsule 325 mg PO QID PRN (Reason: Pain) RF: 0 warfarin 2.5 mg tablet See Rx Instructions mg .ROUTE .COMPLEX Qty: 90 RF: 2 CALCIUM 750 MG VIT D3 750 mg PO DAILY RF: 0 erythromycin 5 mg/gram (0.5 %) ointment 0 mg ophthalmic (eye) DAILY RF: 0 PreserVision AREDS [id number] tcot-zp-fnjz capsule 1 cap PO BID RF: 0 ferrous sulfate 324 mg (65 mg iron) tablet,delayed release (DR/EC) 324 mg PO BID RF: 0 ascorbic acid (vitamin C) 500 mg capsule, extended release 500 mg PO BID Qty: 60 RF: 5 sennosides 8.6 mg tablet 17.2 mg PO BEDTIME PRN (Reason: Constipation) RF: 0 melatonin 3 mg tablet 3 mg PO BEDTIME PRNRF: 0
[2021-06-16] MEDS: Oxymetazoline HCl 0.05 % Nasal 15 ML SPRAY 2 SPRAY NOSTRIL-B (05:06)
[2021-06-16 05:39] LABS: Basophils Percent Auto 0.4 % (0-2); Eosinophils Absolute Auto 0.1 X10*3/uL (0.0-0.4); Eosinophils Percent Auto 1.7 % (0-4); Hematocrit 33.6 % (37-47); Hemoglobin 10.3 g/dl (12.0-16.0); Imm Gran Abs Auto 0.03 X10*3/uL (0.00-0.03); Imm Gran Pct Auto 0.4 % (0.0-0.4); Lymphocytes Absolute Auto 0.5 X10*3/uL (1.2-4.9); Lymphocytes Percent Auto 6.5 % (20-40); MANUAL DIFF FLAG NO; Mean Corpuscular HGB Conc 30.7 g/dl (31.0-35.0); Mean Corpuscular Hemoglobin 28.9 pg (27.0-33.0); Mean Corpuscular Volume 94.1 fL (80-98); Mean Platelet Volume 11.2 fL (9.4-12.3); Monocytes Absolute Auto 0.7 X10*3/uL (0.1-1.2); Monocytes Percent Auto 9.5 % (2-11); Neutrophils Absolute Auto 6.4 X10*3/uL (2.0-8.3); Neutrophils Percent Auto 81.5 % (45-73); Platelet Count 125 X10*3/uL (160-400); Red Blood Count 3.57 X10*6/uL (4.20-5.50); Red Cell Distribution Width 17.9 % (11.0-16.0); White Blood Count 7.8 X10*3/uL (4.8-10.8)
[2021-06-16 05:44] LABS: INTERNATIONAL NORM RATIO 2.8 (0.9-1.1); Prothrombin Time 32.8 SEC (9.9-13.0)
[2021-06-16 06:06] LABS: Anion Gap 13 (12-20); Blood Urea Nitrogen 45 mg/dL (9-16); Calcium 8.6 mg/dL (8.4-10.2); Carbon Dioxide 23 mmol/L (22-29); Chloride 108 mmol/L (96-108); Creatinine Clr Calc Pharmacy 26.4; Estimated Glomerular Filt Rate 24; Glucose Random 115 mg/dL (60-115); Potassium 4.5 mmol/L (3.3-5.1); Sodium 139 mmol/L (135-145)
== END 2021-06-16 08:39 | disposition home or self-care (01) ==
PROVIDERS: Emergency Provider Emergency Medicine; PCP Internal Medicine
DX: R04.0 Epistaxis (principal); I10 Essential (primary) hypertension; I48.20 Chronic atrial fibrillation, unspecified; Z95.2 Presence of prosthetic heart valve; Z79.01 Long term (current) use of anticoagulants; F17.210 Nicotine dependence, cigarettes, uncomplicated
CPT/HCPCS: 30901; 36415; 80048; 85025; 85610; 99284

== ENCOUNTER → 2021-06-17 14:23 | Outpatient (BNVA) | payer MEDICARE, SELFPAY | PROVIDERS: PCP Internal Medicine; Visit Provider Internal Medicine | DX: Z95.2 Presence of prosthetic heart valve (principal) | CPT/HCPCS: Q3014 ==

== ENCOUNTER 2021-06-18 07:53 | Emergency (ER) | payer MEDICARE, SELFPAY ==
--- NOTE | 2021-06-18 07:57 | ECG_ITS ---
Test Reason : NOSE BLEED Blood Pressure : / mmHG Vent. Rate : 076 BPM Atrial Rate : 084 BPM P-R Int : 000 ms QRS Dur : 086 ms QT Int : 464 ms P-R-T Axes : 000 007 224 degrees QTc Int : 522 ms Atrial fibrillation Septal infarct (cited on or before 28-MAY-2021) T wave abnormality, consider lateral ischemia Prolonged QT Abnormal ECG When compared to the previous EKG of Atrial fibrillation has replaced Accelerated Junctional rhythm Serial changes of Septal infarct Present Referred By: Greer Flaherty Electronically Signed By:KATIA MEAD MD
[2021-06-18 08:12] VITALS: BP 100/53; PULSE 72; RESP 16; TEMP 36.5; O2SAT 98; BMI 21.2
--- NOTE | 2021-06-18 10:49 | ED_ITS ---
HPI - Recheck/Abnormal Lab/Rx General Chief Complaint: Recheck/Abnormal Lab/Rx <EMILIANA López - Last Filed: 06/18/21 17:14> Stated Complaint: rhino rocket removal <EMILIANA López - Last Filed: 06/18/21 17:14> Time Seen by Provider: 06/18/21 10:31 <EMILIANA López - Last Filed: 06/18/21 17:14> Related Data Home Medications: Home Medications Medication Instructions Recorded Confirmed acetaminophen 325 mg capsule 325 mg PO QID PRN 08/06/20 06/17/21 (Tylenol) vit C 250 mg-vit E 90 mg-zinc 40 1 tab PO BID 08/06/20 06/17/21 mg-copper 1 ex-rpoegi-smovbn capsule (PreserVision AREDS-2) ferrous sulfate 324 mg (65 mg 324 mg PO BID 11/05/20 06/17/21 iron) tablet,delayed release CALCIUM 750 MG VIT D3 750 mg PO DAILY 01/21/21 06/17/21 sennosides 8.6 mg tablet 17.2 mg PO BEDTIME PRN 02/05/21 06/17/21 furosemide 40 mg tablet 20 mg PO DAILY tab 04/03/21 06/17/21 melatonin 3 mg tablet 3 mg PO BEDTIME PRN 04/11/21 06/17/21 erythromycin 5 mg/gram (0.5 %) eye 0 mg OPHTHALMIC (EYE) DAILY 05/14/21 06/17/21 ointment vitamins A,C,C-skga-tiaeuk 14,320 1 cap PO BID 05/14/21 06/17/21 unit-226 mg-200 unit capsule cephalexin 500 mg capsule 500 mg PO .COMPLEX 06/17/21 06/17/21 Previous Rx's Medication Instructions Recorded warfarin 2.5 mg tablet See Rx Instructions .ROUTE 08/21/20 .COMPLEX #90 tab carvedilol 25 mg tablet (Coreg) 25 mg PO BID 90 Days #180 tab 09/05/20 aspirin 81 mg tablet,delayed 81 mg PO DAILY #90 tab 09/17/20 release diclofenac sodium 1 % topical gel 4 g TOPICAL TID #400 g 10/23/20 levothyroxine 137 mcg tablet 137 mcg PO QAM #90 tab 11/07/20 ascorbic acid (vitamin C) 500 mg 500 mg PO BID #60 cap 01/03/21 capsule,extended release isosorbide dinitrate 5 mg tablet 5 mg PO BID #180 tab 02/28/21 colchicine 0.6 mg capsule 0.6 mg PO DAILY PRN #90 cap 03/26/21 trazodone 50 mg tablet 50 mg PO DAILY PRN #42 tab 04/07/21 omeprazole 20 mg capsule,delayed 20 mg PO DAILY #90 cap 04/26/21 release meclizine 25 mg tablet 25 mg PO TID PRN #5 tab 04/29/21 warfarin 5 mg tablet 5 mg PO DAILY 90 Days #90 tab 05/10/21 artifi.tears(hypromellose)(PF) 0.3 1 drp OPHTHALMIC (EYE) Q4-6H PRN 05/16/21 % eye drops #10 ml rosuvastatin 10 mg tablet 10 mg PO DAILY #90 tab 05/16/21 potassium chloride 20 mEq 20 meq PO .COMPLEX #90 tab 05/20/21 tablet,extended release(part/cryst) (Klor-Con M) prosthetics #1 ea 05/23/21 sucralfate 1 gram tablet 1 g PO TID #90 tab 05/23/21 fluoxetine 20 mg capsule 20 mg PO DAILY 30 Days #30 cap 06/03/21 oxymetazoline 0.05 % nasal mist 2 spray INTRANASAL Q12H PRN 3 Days 06/15/21 (Afrin (oxymetazoline)) #15 ml cephalexin 500 mg capsule 500 mg PO BID #10 cap 06/16/21 <EMILIANA López - Last Filed: 06/18/21 17:14> Allergies/Adverse Reactions: Allergies Allergy/AdvReac Type Severity Reaction Status Date / Time TAPE,PAPER Allergy Unknown RASH TO Uncoded 05/23/21 09:57 PAPER TAPE <EMILIANA López - Last Filed: 06/18/21 17:14> Review of Systems Constitutional: Constitutional: Denies body ache(s), Denies chills, Denies f atigue, Denies fever(s), Denies headache(s), Denies malaise and Denies weakness <EMILIANA López - Last Filed: 06/18/21 17:14> Eyes: Eyes: Denies blurry vision and Denies diplopia <EMILIANA López Last Filed: 06/18/21 17:14> ENT: Denies vertigo, Denies dizziness, Denies otalgia, Denies headache(s), Reports epistaxis, Denies mouth pain, Denies post nasal drip, Denies sinus pain, Denies sinus pressure, Denies sore throat and Denies throat swelling <EMILIANA López Last Filed: 06/18/21 17:14> Cardiovascular: Cardiovascular: Denies chest pain, Denies syncope, Denies leg edema, Denies lightheadedness, Denies Loss of Consciousness, Denies palpitations and Denies dyspnea <EMILIANA López Last Filed: 06/18/21 17:14> Respiratory: Respiratory: Denies chest congestion, Denies cough and Denies dyspnea <EMILIANA López Last Filed: 06/18/21 17:14> Gastrointestinal: Gastrointestinal: Reports abdominal pain, Denies hematochezia, Denies constipation, Denies diarrhea and Denies vomiting <EMILIANA López Last Filed: 06/18/21 17:14> Musculoskeletal: Musculoskeletal: Reports no additional musculoskeletal complaints <EMILIANA López Last Filed: 06/18/21 17:14> Neurologic: Denies confusion, Denies vertigo, Denies dizziness, Denies syncop e, Denies headache(s) and Denies weakness <EMILIANA López Last Filed: 06/18/21 17:14> Psychiatric: Psychiatric: Reports anxiety, Denies confusion and Denies depression <EMILIANA López Last Filed: 06/18/21 17:14> Endocrine: Endocrine: Denies fatigue and Denies palpitations <EMILIANA López Last Filed: 06/18/21 17:14> Hematologic/Lymphatic: Hematologic/Lymphatic: Reports easy bleeding <EMILIANA López Last Filed: 06/18/21 17:14> Allergic/Immunologic: Allergic/Immunologic: Denies throat swelling <EMILIANA López Last Filed: 06/18/21 17:14> PMFSH Past Medical History Medical History: Medical History Amyloidosis Anxiety and depression Arthritis Bladder hypertonicity Chronic atrial fibrillation Chronic HFrEF (heart failure with reduced ejection fraction) Chronic kidney disease (CKD) stage G4/A1, severely decreased glomerular filtration rate (GFR) between 15-29 mL/min/1.73 square meter and albuminuria creatinine ratio less than 30 mg/g Detached retina Gout Heart disease History of breast cancer History of breast cancer HTN (hypertension) Hypercholesterolemia Hypothyroid ICD (implantable cardioverter-defibrillator) in place Ischemic cardiomyopathy Kidney disease Nephrolithiasis Osteoarthritis Overweight (BMI 25.0-29.9) Pulmonary hypertension Thumb tendonitis Tricuspid regurgitation Urinary incontinence <EMILIANA López - Last Filed: 06/18/21 17:14> Surgical History: Surgical History H/O abdominal hysterectomy H/O mitral valve replacement H/O mitral valve replacement with mechanical valve History of bunionectomy History of cataract surgery History of colonoscopy History of left inguinal hernia repair History of sleeve gastrectomy <EMILIANA López - Last Filed: 06/18/21 17:14> Family History Family History: Family History Mother Diabetes Father Past heart attack Diabetes Sister Parkinsons disease <EMILIANA López - Last Filed: 06/18/21 17:14> Social History Social History: Social History Household Members: None Housing: Apartment Do you presently have visiting nurse or other home services: No Alcohol intake: never Patient Tobacco Use Status: Never used Tobacco Tobacco use type: Cigarette e-Cigarette/Vaping Use: Never Used Second Hand Smoke Exposure: No service: No Current occupational status: disabled Current occupation: left handed <EMILIANA López - Last Filed: 06/18/21 17:14> Physical Exam Vital Signs: Vital Signs: Last Vital Signs Temp 97.8 F 06/18/21 12:28 Pulse 70 06/18/21 12:28 Resp 16 06/18/21 12:28 BP 129/71 06/18/21 12:28 Pulse Ox 97 06/18/21 12:28 Body Mass Index 21.2 <EMILIANA López - Last Filed: 06/18/21 17:14> Vital Signs: Last Vital Signs Temp 97.8 F 06/18/21 12:28 Pulse 70 06/18/21 12:28 Resp 16 06/18/21 12:28 BP 129/71 06/18/21 12:28 Pulse Ox 97 06/18/21 12:28 Body Mass Index 21.2 <Raymond Galvez MD - Last Filed: 06/19/21 07:00> Const: General: No confusion <EMILIANA López Last Filed: 06/18/21 17:14> Nutritional Appearance: well nourished <EMILIANA López - Last Filed: 06/18/21 17:14> Orientation/consciousness: No confusion <EMILIANA López Last Filed: 06/18/21 17:14> Limitations: no limitations <EMILIANA López Last Filed: 06/18/21 17:14> HENMT: Other: Patient presents with rhinorocket in place, once rhino rocket is removed, patient is able to blow out the clots from her right nostril, however bleeding source is not visualized <EMILIANA López Last Filed: 06/18/21 17:14> Head: Yes normal to inspection, Yes normocephalic and Yes atraumatic <EMILIANA López Last Filed: 06/18/21 17:14> Ears: hearing grossly normal bilaterally, external ears normal, TM's normal bilaterally and EAC's normal <EMILIANA López Last Filed: 06/18/21 17:14> General nose exam: Epistaxis present on the right dried blood present, active bleeding, clots present and source not visualized <EMILIANA López Last Filed: 06/18/21 17:14> Face and sinus: Yes normal facial exam and Yes sinuses nontender <EMILIANA Tompkins Ch - Last Filed: 06/18/21 17:14> Eyes: Conjunctivae: conjunctivae normal <EMILIANA López Last Filed: 06/18/21 17:14> Pupils: Equal, round and reactive pupils present <EMILIANA López Last Filed: 06/18/21 17:14> EOM: EOMs intact bilaterally <EMILIANA López - Last Filed: 06/18/21 17:14> Neck: Neck: Yes full ROM, Yes no lymphadenopathy and Yes supple <Greer Flaherty [facility] Last Filed: 06/18/21 17:14> Resp: Effort & Inspection: normal respiratory effort and able to speak in complete sentences <Greer Flaherty [facility] Last Filed: 06/18/21 17:14> Auscultation: clear to auscultation bilaterally, no crackles, no rales, no rhonchi and no wheezes <Greer Flaherty [facility] Last Filed: 06/18/21 17:14> Cardio: Rate: regular rate <Greer Flaherty [facility] Last Filed: 06/18/21 17:14> Rhythm: regular rhythm <Greer Flaherty [facility] Last Filed: 06/18/21 17:14> Heart sounds: S1 normal heart sound present and S2 normal heart sound present <Greer Flaherty [facility] Last Filed: 06/18/21 17:14> GI: Inspection: Yes normal to inspection <Greer Flaherty [facility] Last Filed: 06/18/21 17:14> Palpation (GI): Soft to palpation, nontender, no guarding and not rigid <Greer Flaherty [facility] Last Filed: 06/18/21 17:14> Percussion: Yes normal to percussion <Greer Flaherty [facility] Last Filed: 06/18/21 17:14> Auscultation: normal bowel sounds <Greer Flaherty [facility] Last Filed: 06/18/21 17:14> Skin: General skin exam: no rashes or lesions noted <Greer Flaherty [facility] Last Filed: 06/18/21 17:14> Neuro: General: No confusion <Greer Flaherty [facility] Last Filed: 06/18/21 17:14> Cranial nerves: Yes Equal, round and reactive pupils present <Greer Flaherty [facility] Last Filed: 06/18/21 17:14> Extrem: General: Yes normal to inspection and Yes full ROM <Greer velazquez NE - Last Filed: 06/18/21 17:14> Psych: Appearance: grossly normal <Greer Flaherty [facility] Last Filed: 06/18/21 17:14> Affect: normal affect <EMILIANA López - Last Filed: 06/18/21 17:14> Attitude: cooperative <EMILIANA López - Last Filed: 06/18/21 17:14> Thought process: Normal thought process present <EMILIANA López - Last Filed: 06/18/21 17:14> Course Course Course Narrative: 70-year-old female who is on Coumadin presents for rhino rocket removal. Patient was seen 2 days ago and a rhino rocket was placed in her right nostril. Her INR 2 days ago was 2.8, and she has not had any Coumadin since then. I did remove her rhino rocket, however, patient continued to bleed. Her INR today is 3.2. I did place another rhino rocket, after patient blew out clots and inhaled Afrin. Patient was very anxious and was concerned that she would continue to bleed. Provided reassurance, and referred her to our Ear Nose Throat. Gave return precautions <EMILIANA López - Last Filed: 06/18/21 17:14> MDM - Recheck/Abnormal Lab/Rx Lab Data Result diagrams: : 06/18/21 11:02 06/18/21 11:02 <EMILIANA López - Last Filed: 06/18/21 17:14> Labs: Lab Results 06/18/21 06/18/21 06/18/21 Range/Units 11:02 11:02 11:02 WBC 9.8 (4.8-10.8) X10*3/uL RBC 3.44 L (4.20-5.50) X10*6/uL Hgb 9.8 L (12.0-16.0) g/dl Hct 32.1 L (37-47) % MCV 93.3 (80-98) fL MCH 28.5 (27.0-33.0) pg MCHC 30.5 L (31.0-35.0) g/dl RDW 17.4 H (11.0-16.0) % Plt Count 105 L (160-400) X10*3/uL MPV 11.6 (9.4-12.3) fL Immature Gran % (Auto) 0.4 (0.0-0.4) % Neut % (Auto) 87.5 H (45-73) % Lymph % (Auto) 3.3 L (20-40) % [place] % (Auto) 8.5 (2-11) % Eos % (Auto) 0.2 (0-4) % Baso % (Auto) 0.1 (0-2) % Lymph # (Auto) 0.3 L (1.2-4.9) X10*3/uL [place] # (Auto) 0.8 (0.1-1.2) X10*3/uL Eos # (Auto) 0.0 (0.0-0.4) X10*3/uL Baso # (Auto) 0.0 (0.0-0.2) X10*3/uL Abs Immat Gran (auto) 0.04 H (0.00-0.03) X10*3/uL Absolute Neuts (auto) 8.6 H (2.0-8.3) X10*3/uL Absolute Nucleated RBC 0.000 (0.0-0.012) X10*3/uL Nucleated RBC % (auto) 0.0 (0.0-0.2) /100WBC PT 37.6 H (9.9-13.0) SEC INR 3.2 H (0.9-1.1) Sodium 138 (135-145) mmol/L Potassium 4.6 (3.3-5.1) mmol/L Chloride 109 H (96-108) mmol/L Carbon Dioxide 22 (22-29) mmol/L Anion Gap 12 (12-20) BUN 41 H (9-16) mg/dL Creatinine 1.84 H (0.5-1.4) mg/dL Estim Creat Clear Calc 29.8 Estimated GFR 27 Random Glucose 106 (60-115) mg/dL Calcium 8.1 L (8.4-10.2) mg/dL Total Bilirubin 1.0 (0.0-1.0) mg/dL AST 15 (5-31) U/L ALT 19 (0-31) U/L Alkaline Phosphatase 108 (39-117) U/L Total Protein 5.7 L (6.5-8.0) g/dL Albumin 3.0 L (3.5-5.0) g/dL <EMILIANA López Last Filed: 06/18/21 17:14> Lab Results 06/18/21 06/18/21 06/18/21 Range/Units 11:02 11:02 11:02 WBC 9.8 (4.8-10.8) X10*3/uL RBC 3.44 L (4.20-5.50) X10*6/uL Hgb 9.8 L (12.0-16.0) g/dl Hct 32.1 L (37-47) % MCV 93.3 (80-98) fL MCH 28.5 (27.0-33.0) pg MCHC 30.5 L (31.0-35.0) g/dl RDW 17.4 H (11.0-16.0) % Plt Count 105 L (160-400) X10*3/uL MPV 11.6 (9.4-12.3) fL Immature Gran % (Auto) 0.4 (0.0-0.4) % Neut % (Auto) 87.5 H (45-73) % Lymph % (Auto) 3.3 L (20-40) % [place] % (Auto) 8.5 (2-11) % Eos % (Auto) 0.2 (0-4) % Baso % (Auto) 0.1 (0-2) % Lymph # (Auto) 0.3 L (1.2-4.9) X10*3/uL [place] # (Auto) 0.8 (0.1-1.2) X10*3/uL Eos # (Auto) 0.0 (0.0-0.4) X10*3/uL Baso # (Auto) 0.0 (0.0-0.2) X10*3/uL Abs Immat Gran (auto) 0.04 H (0.00-0.03) X10*3/uL Absolute Neuts (auto) 8.6 H (2.0-8.3) X10*3/uL Absolute Nucleated RBC 0.000 (0.0-0.012) X10*3/uL Nucleated RBC % (auto) 0.0 (0.0-0.2) /100WBC PT 37.6 H (9.9-13.0) SEC INR 3.2 H (0.9-1.1) Sodium 138 (135-145) mmol/L Potassium 4.6 (3.3-5.1) mmol/L Chloride 109 H (96-108) mmol/L Carbon Dioxide 22 (22-29) mmol/L Anion Gap 12 (12-20) BUN 41 H (9-16) mg/dL Creatinine 1.84 H (0.5-1.4) mg/dL Estim Creat Clear Calc 29.8 Estimated GFR 27 Random Glucose 106 (60-115) mg/dL Calcium 8.1 L (8.4-10.2) mg/dL Total Bilirubin 1.0 (0.0-1.0) mg/dL AST 15 (5-31) U/L ALT 19 (0-31) U/L Alkaline Phosphatase 108 (39-117) U/L Total Protein 5.7 L (6.5-8.0) g/dL Albumin 3.0 L (3.5-5.0) g/dL <Raymond Galvez MD - Last Filed: 06/19/21 07:00> Discharge Plan Discharge Clinical Impression: Epistaxis, Abnormal INR <EMILIANA López - Last Filed: 06/18/21 17:14> Patient Disposition: Home, Self-Care <EMILIANA López - Last Filed: 06/18/21 17:14> Additional Instructions: Call your primary provider when you get home today. Please call the nose throat doctor today at [phone] You need to be seen in 2 days, on , to have the nasal tampon removed. Please tell your PCP today that your INR is still elevated at 3.2. Talk to your doctor before you take any more Coumadin. Please return to ER for any new or concerning symptoms <EMILIANA López - Last Filed: 06/18/21 17:14> Prescriptions: No Action carvedilol [Coreg] 25 mg tablet 25 mg PO BID 90 Days Qty: 180 RF: 3 aspirin 81 mg tablet,delayed release (DR/EC) 81 mg PO DAILY Qty: 90 RF: 3 diclofenac sodium 1 % gel 4 g topical TID Qty: 400 RF: 11 levothyroxine 137 mcg tablet 137 mcg PO QAM Qty: 90 RF: 3 isosorbide dinitrate 5 mg tablet 5 mg PO BID Qty: 180 RF: 3 trazodone 50 mg tablet 50 mg PO DAILY PRN (Reason: for insomnia) Qty: 42 RF: 1 omeprazole 20 mg capsule,delayed release(DR/EC) 20 mg PO DAILY Qty: 90 RF: 2 warfarin 5 mg tablet 5 mg PO DAILY 90 Days Qty: 90 RF: 2 rosuvastatin 10 mg tablet 10 mg PO DAILY Qty: 90 RF: 2 artifi.tears(hypromellose)(PF) 0.3 % drops 1 drp ophthalmic (eye) Q4-6H PRN (Reason: dry eye(s)) Qty: 10 RF: 1 potassium chloride [Klor-Con M20] 20 mEq tablet,ER particles/crystals 20 meq PO .COMPLEX Qty: 90 RF: 5 (DME) prosthetics Kit See Rx Instructions .ROUTE .MEDSUPPLY Qty: 1 RF: 0 fluoxetine 20 mg capsule 20 mg PO DAILY 30 Days Qty: 30 RF: 2 meclizine 25 mg tablet 25 mg PO TID PRN (Reason: dizziness) Qty: 5 RF: 0 sucralfate 1 gram tablet 1 g PO TID Qty: 90 RF: 0 Afrin (oxymetazoline) 0.05 % mist 2 spray intranasal Q12H PRN (Reason: nasal congestion) 3 Days Qty: 15 RF: 0 cephalexin 500 mg capsule 500 mg PO BID Qty: 10 RF: 0 furosemide 40 mg tablet 20 mg PO DAILY RF: 0 colchicine 0.6 mg capsule 0.6 mg PO DAILY PRN (Reason: Pain, Severe) Qty: 90 RF: 1 PreserVision AREDS-2 [id number] aa-[id number]-dr-mg capsule 1 tab PO BID RF: 0 acetaminophen [Tylenol] 325 mg capsule 325 mg PO QID PRN (Reason: Pain) RF: 0 warfarin 2.5 mg tablet See Rx Instructions mg .ROUTE .COMPLEX Qty: 90 RF: 2 CALCIUM 750 MG VIT D3 750 mg PO DAILY RF: 0 erythromycin 5 mg/gram (0.5 %) ointment 0 mg ophthalmic (eye) DAILY RF: 0 PreserVision AREDS [id number] ragi-km-zrid capsule 1 cap PO BID RF: 0 cephalexin 500 mg capsule 500 mg PO .COMPLEX RF: 0 ferrous sulfate 324 mg (65 mg iron) tablet,delayed release (DR/EC) 324 mg PO BID RF: 0 ascorbic acid (vitamin C) 500 mg capsule, extended release 500 mg PO BID Qty: 60 RF: 5 sennosides 8.6 mg tablet 17.2 mg PO BEDTIME PRN (Reason: Constipation) RF: 0 melatonin 3 mg tablet 3 mg PO BEDTIME PRNRF: 0 <EMILIANA López - Last Filed: 06/18/21 17:14> Referrals: Charlie Perez MD [Physician] - 2 days (INR 3.2, 2nd rhino rocket placed today, 1st rhino rocket placed 2 days ago. Right nostril, unable to visualize source of bleeding) <EMILIANA López - Last Filed: 06/18/21 17:14> Interventions: ED Discharge Assessment Last Done: 06/18/21 12:55 <EMILIANA López - Last Filed: 06/18/21 17:14> Discharge Date/Time: 06/18/21 12:57 <EMILIANA López - Last Filed: 06/18/21 17:14>
[2021-06-18 11:08] LABS: MANUAL DIFF FLAG NO
[2021-06-18 11:12] LABS: Basophils Percent Auto 0.1 % (0-2); Eosinophils Percent Auto 0.2 % (0-4); Hematocrit 32.1 % (37-47); Hemoglobin 9.8 g/dl (12.0-16.0); Imm Gran Abs Auto 0.04 X10*3/uL (0.00-0.03); Imm Gran Pct Auto 0.4 % (0.0-0.4); Lymphocytes Absolute Auto 0.3 X10*3/uL (1.2-4.9); Lymphocytes Percent Auto 3.3 % (20-40); Mean Corpuscular HGB Conc 30.5 g/dl (31.0-35.0); Mean Corpuscular Hemoglobin 28.5 pg (27.0-33.0); Mean Corpuscular Volume 93.3 fL (80-98); Mean Platelet Volume 11.6 fL (9.4-12.3); Monocytes Absolute Auto 0.8 X10*3/uL (0.1-1.2); Monocytes Percent Auto 8.5 % (2-11); Neutrophils Absolute Auto 8.6 X10*3/uL (2.0-8.3); Neutrophils Percent Auto 87.5 % (45-73); Platelet Count 105 X10*3/uL (160-400); Red Blood Count 3.44 X10*6/uL (4.20-5.50); Red Cell Distribution Width 17.4 % (11.0-16.0); White Blood Count 9.8 X10*3/uL (4.8-10.8)
[2021-06-18 11:27] LABS: INTERNATIONAL NORM RATIO 3.2 (0.9-1.1); Prothrombin Time 37.6 SEC (9.9-13.0)
[2021-06-18] MEDS: Lidocaine HCl 1 % 20 ML VIAL 5 ML INFILTRATI (11:39)
[2021-06-18] MEDS: Oxymetazoline HCl 0.05 % Nasal 15 ML SPRAY 2 SPRAY NOSTRIL-B (11:40)
[2021-06-18 11:43] LABS: Alanine Aminotransferase 19 U/L (0-31); Alkaline Phosphatase 108 U/L (39-117); Anion Gap 12 (12-20); Aspartate Amino Transferase 15 U/L (5-31); Blood Urea Nitrogen 41 mg/dL (9-16); Calcium 8.1 mg/dL (8.4-10.2); Carbon Dioxide 22 mmol/L (22-29); Chloride 109 mmol/L (96-108); Creatinine Clr Calc Pharmacy 29.8; Estimated Glomerular Filt Rate 27; Glucose Random 106 mg/dL (60-115); Potassium 4.6 mmol/L (3.3-5.1); Sodium 138 mmol/L (135-145); Total Protein 5.7 g/dL (6.5-8.0)
[2021-06-18 12:28] VITALS: BP 129/71; PULSE 70; RESP 16; TEMP 36.6; O2SAT 97
== END 2021-06-18 12:57 | disposition home or self-care (01) ==
PROVIDERS: Physician Assistant; Emergency Provider Emergency Medicine Emergency Medical Services; PCP Internal Medicine
DX: R04.0 Epistaxis (principal); D68.8 Other specified coagulation defects; I48.20 Chronic atrial fibrillation, unspecified; I13.0 Hypertensive heart and chronic kidney disease with heart failure and stage 1 through stage 4 chronic kidney disease, or unspecified chronic kidney disease; N18.4 Chronic kidney disease, stage 4 (severe); I50.9 Heart failure, unspecified; Z79.01 Long term (current) use of anticoagulants
CPT/HCPCS: 30906; 36415; 80053; 85025; 85610; 93005; 99284

== ENCOUNTER 2021-06-19 09:13 | Inpatient (IN) | payer MEDICARE, SELFPAY ==
[2021-06-19] VITALS (7 sets, daily range): BP systolic 101–130; BP diastolic 49–65; PULSE 71–77; RESP 17–19; TEMP 35.9–37.1; O2SAT 96–98; BMI 21.1
--- NOTE | ~2021-06-19 | XR_ITS ---
EXAMINATION: XR CHEST CLINICAL INFORMATION: SOB, cough. COMPARISON: Chest 05/20/2021 TECHNIQUE: 2 views of the chest were obtained. FINDINGS: There is cardiomegaly with increased pulmonary vascularity. There is solitary pacer electrode in the right ventricle. Median sternotomy sutures are seen from previous CABG. The lungs are expanded without acute consolidation. There is mild dextroscoliosis dorsal spine. XR/XR chest 2V IMPRESSION: Cardiomegaly with CHF. Evidence of previous CHF. No change in solitary pacer electrode with its tip in the right ventricle from previous study 05/20/2021
--- NOTE | 2021-06-19 09:36 | ED_ITS ---
HPI - General Adult General Chief complaint: General Medical Stated complaint: diff breathing Time Seen by Provider: 06/19/21 09:31 Source: patient and old records reviewed Mode of arrival: ambulatory Limitations: no limitations History of Present Illness HPI narrative: 70 y/o female with history of CKD, ischemic cardiomyopathyHFrEF on lasix 40 mg BID, s/p mechanical mitral valve replacement on Coumadin, atrial fibrillation, s/p PPM/ICD who presents to the ER for the 4th time this week. She was seen on 06/15, 06/16, and 06/18 for epistaxis requiring Rhinorocket x2. She reports after being discharged yesterday she had a small amount of anterior bleeding. She reports not being able to sleep last night because she couldn't breath. She could not lay flat without being short of breath. She denies any bleeding this morning. She did not take her Coumadin last night because her INR was 3.1 yesterday. She also admits to not taking her lasix for the last 3 days because her weight has been stable 143-144. Dr. Jin instructed her to hold it as long as her weight was not >148. She denies chest pain. complaint: SOB Onset (ago): day(s) Location: chest Radiation: non-radiation Severity: moderate Pain Consistency: constant Relieving factors: none Exacerbating factors: other (laying flat) Associated symptoms: denies other symptoms Treatments prior to arrival: none Related Data Home Medications Medication Instructions Recorded Confirmed acetaminophen 325 mg capsule 325 mg PO QID PRN 08/06/20 06/19/21 (Tylenol) vit C 250 mg-vit E 90 mg-zinc 40 1 tab PO BID 08/06/20 06/19/21 mg-copper 1 [id number] capsule (PreserVision AREDS-2) ferrous sulfate 324 mg (65 mg 324 mg PO BID 11/05/20 06/19/21 iron) tablet,delayed release sennosides 8.6 mg tablet 17.2 mg PO BEDTIME PRN 02/05/21 06/19/21 erythromycin 5 mg/gram (0.5 %) eye 5 mg OPHTHALMIC (EYE) DAILY 05/14/21 06/19/21 ointment calcium carbonate 500 mg (1,250 1.5 tab PO DAILY 06/19/21 06/19/21 mg)-vitamin D3 125 unit tablet carvedilol 25 mg tablet (Coreg) 25 mg PO BIDWM 06/19/21 06/19/21 potassium chloride 20 mEq 20 meq PO Q48H 06/19/21 06/19/21 tablet,extended release(part/cryst) (Klor-Con M) warfarin 2.5 mg tablet 1.25 mg PO MOWEFR@1800 06/19/21 06/19/21 warfarin 2.5 mg tablet 2.5 mg PO SUTUTHSA@1800 06/19/21 06/19/21 Previous Rx's Medication Instructions Recorded aspirin 81 mg tablet,delayed 81 mg PO DAILY #90 tab 09/17/20 release levothyroxine 137 mcg tablet 137 mcg PO QAM #90 tab 11/07/20 ascorbic acid (vitamin C) 500 mg 500 mg PO BID #60 cap 01/03/21 capsule,extended release isosorbide dinitrate 5 mg tablet 5 mg PO BID #180 tab 02/28/21 trazodone 50 mg tablet 50 mg PO DAILY PRN #42 tab 04/07/21 omeprazole 20 mg capsule,delayed 20 mg PO DAILY #90 cap 04/26/21 release meclizine 25 mg tablet 25 mg PO TID PRN #5 tab 04/29/21 artifi.tears(hypromellose)(PF) 0.3 1 drp OPHTHALMIC (EYE) Q4-6H PRN 05/16/21 % eye drops #10 ml rosuvastatin 10 mg tablet 10 mg PO DAILY #90 tab 05/16/21 prosthetics #1 ea 05/23/21 fluoxetine 20 mg capsule 20 mg PO DAILY 30 Days #30 cap 06/03/21 cephalexin 500 mg capsule 500 mg PO BID #10 cap 06/16/21 Allergies Allergy/AdvReac Type Severity Reaction Status Date / Time TAPE,PAPER Allergy Unknown RASH TO Uncoded 05/23/21 09:57 PAPER TAPE Review of Systems Constitutional: Constitutional: Denies chills, Denies fever(s), Denies frequent falls and Reports headache(s) Eyes: Eyes: Reports no additional eye complaints ENT: Denies dizziness and Reports headache(s) Cardiovascular: Cardiovascular: Denies chest pain, Denies chest pain at rest, Denies chest pain with activity, Denies syncope, Denies rapid heart rate, Reports leg edema, Reports dyspnea, Reports dyspnea on exertion and Reports orthopnea Respiratory: Respiratory: Denies cough, Reports dyspnea and Reports dyspnea on exertion Gastrointestinal: Gastrointestinal: Denies abdominal pain, Denies diarrhea, Denies nausea and Denies vomiting Genitourinary: Genitourinary: Denies dysuria Musculoskeletal: Musculoskeletal: Denies myalgias Neurologic: Denies dizziness, Denies syncope, Denies frequent falls and Reports headache(s) Psychiatric: Psychiatric: Reports anxiety Hematologic/Lymphatic: Hematologic/Lymphatic: Reports easy bleeding and Reports easy bruising PMF Past Medical History Attestation statement: The following information was validated with the patient. Medical History Amyloidosis Anxiety and depression Arthritis Bladder hypertonicity Chronic atrial fibrillation Chronic HFrEF (heart failure with reduced ejection fraction) Chronic kidney disease (CKD) stage G4/A1, severely decreased glomerular filtration rate (GFR) between 15-29 mL/min/1.73 square meter and albuminuria creatinine ratio less than 30 mg/g Detached retina Gout Heart disease History of breast cancer History of breast cancer HTN (hypertension) Hypercholesterolemia Hypothyroid ICD (implantable cardioverter-defibrillator) in place Ischemic cardiomyopathy Kidney disease Nephrolithiasis Osteoarthritis Overweight (BMI 25.0-29.9) Pulmonary hypertension Thumb tendonitis Tricuspid regurgitation Urinary incontinence Surgical History H/O abdominal hysterectomy H/O mitral valve replacement H/O mitral valve replacement with mechanical valve History of bunionectomy History of cataract surgery History of colonoscopy History of left inguinal hernia repair History of sleeve gastrectomy Family History Family History Mother Diabetes Father Past heart attack Diabetes Sister Parkinsons disease Social History Social History Household Members: None Housing: Apartment Do you presently have visiting nurse or other home services: No Alcohol intake: never Patient Tobacco Use Status: Never used Tobacco Tobacco use type: Cigarette e-Cigarette/Vaping Use: Never Used Second Hand Smoke Exposure: No Advance Directives: No Advance Directives Information Provided: No service: No Current occupational status: disabled Current occupation: left handed Physical Exam Vital Signs: Vital Signs: Last Vital Signs Temp 98.8 F 06/19/21 10:28 Pulse 74 06/19/21 10:28 Resp 17 06/19/21 10:28 BP 101/56 L 06/19/21 10:28 Pulse Ox 97 06/19/21 10:28 Body Mass Index 21.1 Appearance: Alert. Oriented X3. No acute distress. Eyes: Pupils equal, round and reactive to light. left eye with lateral deviation ENT: Pharynx normal. Rhinorocket in place in right nare, dried blood under right nare, no active bleeding Neck: Normal inspection. Neck supple. CVS: Normal heart rate and rhythm. +murmur Respiratory: No respiratory distress. Breath sounds coarse with bibasilar crackles. Abdomen: Soft and nontender. +BS x4 Skin: Skin warm and dry. Normal skin color. Normal skin turgor. No rashes. Extremities: 2+ lower extremity edema. Neuro: Oriented X 3. No motor deficit. No sensory deficit. Course Course Course Narrative: 70 y/o female presenting with SOB in the setting of Rhinorocket in place for recurrent epistaxis as well as lasix non-compliance. She is not in respiratory distress and SpO2 97%. Rales at the bases. No chest pain. EKG from yesterday reviewed. Will check basix labs and CXR. No active epistaxis at this time. Reevaluation(s) Reevaluation #1: INR 2.1 which is subtherapeutic for her valve. Her H/H is stable. CXR is concerning for CHF with stable cardiomegaly. BNP is up to 900s. She has LE edema and appears to be in acute heart failure exacerbation. She admits to not taking her lasix due to a stable weight at home. Given her complex cardiac history, recurrent epistaxis requiring multiple ER visits and lab workup today will plan to admit the patient for IV diuresis and further monitoring. Rhinorocket can hopefully be removed tomorrow. She was not discharged on oral antibiotics for prophylaxis, will start now. Patient agreeable with admission to the hospital. Dr. Lao tt for admit. Medical Decision Making Lab Data Result diagrams: 06/19/21 10:33 Labs: Lab Results 06/19/21 06/19/21 06/19/21 Range/Units 10:33 10:33 10:33 WBC 8.7 (4.8-10.8) X10*3/uL RBC 3.39 L (4.20-5.50) X10*6/uL Hgb 9.8 L (12.0-16.0) g/dl Hct 31.9 L (37-47) % MCV 94.1 (80-98) fL MCH 28.9 (27.0-33.0) pg MCHC 30.7 L (31.0-35.0) g/dl RDW 17.4 H (11.0-16.0) % Plt Count 110 L (160-400) X10*3/uL MPV 11.8 (9.4-12.3) fL Immature Gran % (Auto) 0.3 (0.0-0.4) % Neut % (Auto) 88.7 H (45-73) % Lymph % (Auto) 3.8 L (20-40) % [place] % (Auto) 6.8 (2-11) % Eos % (Auto) 0.2 (0-4) % Baso % (Auto) 0.2 (0-2) % Lymph # (Auto) 0.3 L (1.2-4.9) X10*3/uL [place] # (Auto) 0.6 (0.1-1.2) X10*3/uL Eos # (Auto) 0.0 (0.0-0.4) X10*3/uL Baso # (Auto) 0.0 (0.0-0.2) X10*3/uL Abs Immat Gran (auto) 0.03 (0.00-0.03) X10*3/uL Absolute Neuts (auto) 7.7 (2.0-8.3) X10*3/uL Absolute Nucleated RBC 0.000 (0.0-0.012) X10*3/uL Nucleated RBC % (auto) 0.0 (0.0-0.2) /100WBC PT 24.2 H D (9.9-13.0) SEC INR 2.1 H (0.9-1.1) APTT 38.2 H (24.1-38.0) SEC B-Natriuretic Peptide 930 H (<100) pg/mL Discharge Plan Discharge Clinical Impression: Acute congestive heart failure Patient Disposition: Admitted As Inpatient
[2021-06-19 10:42] LABS: MANUAL DIFF FLAG NO
[2021-06-19 10:46] LABS: Basophils Percent Auto 0.2 % (0-2); Eosinophils Percent Auto 0.2 % (0-4); Hematocrit 31.9 % (37-47); Hemoglobin 9.8 g/dl (12.0-16.0); Imm Gran Abs Auto 0.03 X10*3/uL (0.00-0.03); Imm Gran Pct Auto 0.3 % (0.0-0.4); Lymphocytes Absolute Auto 0.3 X10*3/uL (1.2-4.9); Lymphocytes Percent Auto 3.8 % (20-40); Mean Corpuscular HGB Conc 30.7 g/dl (31.0-35.0); Mean Corpuscular Hemoglobin 28.9 pg (27.0-33.0); Mean Corpuscular Volume 94.1 fL (80-98); Mean Platelet Volume 11.8 fL (9.4-12.3); Monocytes Absolute Auto 0.6 X10*3/uL (0.1-1.2); Monocytes Percent Auto 6.8 % (2-11); Neutrophils Absolute Auto 7.7 X10*3/uL (2.0-8.3); Neutrophils Percent Auto 88.7 % (45-73); Platelet Count 110 X10*3/uL (160-400); Red Blood Count 3.39 X10*6/uL (4.20-5.50); Red Cell Distribution Width 17.4 % (11.0-16.0); White Blood Count 8.7 X10*3/uL (4.8-10.8)
[2021-06-19 10:50] LABS: INTERNATIONAL NORM RATIO 2.1 (0.9-1.1); Prothrombin Time 24.2 SEC (9.9-13.0)
[2021-06-19 10:53] LABS: Partial Thromboplastin Time 38.2 SEC (24.1-38.0)
[2021-06-19 11:58] LABS: B Type Natriuretic Peptide 930 pg/mL (<100)
--- NOTE | 2021-06-19 12:59 | PHA.MEDREC ---
Pharmacy Consult ? Medication Reconciliation Pharmacy has completed the medication reconciliation. Patient only had some of her medications today, she reports she did not take warfarin today. Kely Robbins, PharmD
[2021-06-19] MEDS: Furosemide 40 MG/4 ML VIAL IVPUSH (13:15)
--- NOTE | 2021-06-19 14:14 | PM.IMHP ---
History of Present Illness Date of Service: 06/19/21 Chief Complaint: Shortness of breath Review of Systems Review of Systems: Denies any recent fever chills or decrease in appetite respiratory see HPI cardiovascular denies chest pain gastrointestinal denies any dysphagia abdominal pain nausea vomiting or diarrhea genitourinary denies any dysuria frequency or hematuria musculoskeletal denies any joint pain or swelling neuropsych denies any weakness or seizures all other systems reviewed are negative [facility], [facility] Medical History Amyloidosis Anxiety and depression Arthritis Bladder hypertonicity Chronic atrial fibrillation Chronic HFrEF (heart failure with reduced ejection fraction) Chronic kidney disease (CKD) stage G4/A1, severely decreased glomerular filtration rate (GFR) between 15-29 mL/min/1.73 square meter and albuminuria creatinine ratio less than 30 mg/g Detached retina Gout Heart disease History of breast cancer History of breast cancer HTN (hypertension) Hypercholesterolemia Hypothyroid ICD (implantable cardioverter-defibrillator) in place Ischemic cardiomyopathy Kidney disease Nephrolithiasis Osteoarthritis Overweight (BMI 25.0-29.9) Pulmonary hypertension Thumb tendonitis Tricuspid regurgitation Urinary incontinence Family History Mother Diabetes Father Past heart attack Diabetes Sister Parkinsons disease Surgical History H/O abdominal hysterectomy H/O mitral valve replacement H/O mitral valve replacement with mechanical valve History of bunionectomy History of cataract surgery History of colonoscopy History of left inguinal hernia repair History of sleeve gastrectomy Social History Household Members: None Housing: Apartment Do you presently have visiting nurse or other home services: No Alcohol intake: never Patient Tobacco Use Status: Never used Tobacco Tobacco use type: Cigarette e-Cigarette/Vaping Use: Never Used Second Hand Smoke Exposure: No Advance Directives: No Advance Directives Information Provided: No service: No Current occupational status: disabled Current occupation: left handed Meds Allergies Allergy/AdvReac Type Severity Reaction Status Date / Time TAPE,PAPER Allergy Unknown RASH TO Uncoded 05/23/21 09:57 PAPER TAPE Active Medications: Current Medications Generic Name Dose Route Start Last Admin Trade Name Freq PRN Reason Stop Dose Admin Acetaminophen 650 mg 06/19/21 13:20 Acetaminophen 325 Mg Tablet PO Q6H PRN Pain, Mild (Pain Scale 1-3) Ascorbic Acid 500 mg 06/19/21 21:00 Ascorbic Acid 500 Mg Tablet PO BID [facility] Atorvastatin Calcium 40 mg 06/20/21 09:00 Atorvastatin Calcium 40 Mg Tablet PO DAILY [facility] Calcium Carbonate/Cholecalciferol 500 mg 06/20/21 09:00 Calcium + Vitamin D 250 Mg Tablet PO DAILY [facility] Carvedilol 25 mg 06/19/21 17:00 Carvedilol 25 Mg Tablet PO BIDWM [facility] Protocol Erythromycin 1 cm 06/20/21 09:00 Erythromycin Base 0.5% Oph Oin 1 Gm Tube EYE-BOTH DAILY [facility] Ferrous Sulfate 324 mg 06/19/21 21:00 Ferrous Sulfate 324 Mg Tablet. PO BID [facility] Fluoxetine HCl 20 mg 06/20/21 09:00 Fluoxetine Hcl 20 Mg Capsule PO DAILY [facility] Isosorbide Dinitrate 5 mg 06/19/21 21:00 Isosorbide Dinitrate 5 Mg Tablet PO BID [facility] Protocol Levothyroxine Sodium 25 mcg 06/20/21 06:00 Levothyroxine Sodium 25 Mcg Tablet PO DAILY@0600 [facility] Levothyroxine Sodium 112 mcg 06/20/21 06:00 Levothyroxine Sodium 112 Mcg Tablet PO DAILY@0600 [facility] Meclizine HCl 25 mg 06/19/21 13:23 Meclizine Hcl 25 Mg Tablet PO TID PRN dizziness Multivitamins/Minerals 1 tab 06/19/21 21:00 Vits A,C,E/Lutein/Minerals Tablet PO BID [facility] Omeprazole 20 mg 06/20/21 06:30 Omeprazole 20 Mg Capsule. PO DAILY@0630 [facility] Ondansetron HCl 4 mg 06/19/21 13:20 Ondansetron Hcl 4 Mg/2 Ml Vial IVPUSH Q8H PRN Nausea and Vomiting Pharmacy Consult 1 each 06/19/21 12:16 Consult Rx Perform Med Rec MISCELLANE ONCE PRN Consult order Potassium Chloride 20 meq 06/21/21 09:00 Potassium Chloride Er 20 Meq Tab.Er.Prt PO Q48H [facility] Senna 17.2 mg 06/19/21 13:23 Sennosides 8.6 Mg Tablet PO BEDTIME PRN Constipation Sodium Chloride 3 ml 06/19/21 16:00 0.9 % Sodium Chloride Flush 3 Ml Syringe IVFLUSH QSHIFT [facility] Trazodone HCl 50 mg 06/19/21 13:23 Trazodone Hcl 50 Mg Tablet PO DAILY PRN for insomnia Home Medications Medication Instructions Recorded Confirmed Last Taken Type acetaminophen 325 mg capsule 325 mg PO QID PRN 08/06/20 06/19/21 Unknown History (Tylenol) vit C 250 mg-vit E 90 mg-zinc 40 1 tab PO BID 08/06/20 06/19/21 04/08/21 08:00 History mg-copper 1 [id number] capsule (PreserVision AREDS-2) ferrous sulfate 324 mg (65 mg 324 mg PO BID 11/05/20 06/19/21 06/19/21 History iron) tablet,delayed release sennosides 8.6 mg tablet 17.2 mg PO BEDTIME PRN 02/05/21 06/19/21 03/29/21 History erythromycin 5 mg/gram (0.5 %) eye 5 mg OPHTHALMIC (EYE) DAILY 05/14/21 06/19/21 06/18/21 History ointment calcium carbonate 500 mg (1,250 1.5 tab PO DAILY 06/19/21 06/19/21 06/18/21 History mg)-vitamin D3 125 unit tablet carvedilol 25 mg tablet (Coreg) 25 mg PO BIDWM 06/19/21 06/19/21 06/19/21 History potassium chloride 20 mEq 20 meq PO Q48H 06/19/21 06/19/21 06/19/21 History tablet,extended release(part/cryst) (Klor-Con M) warfarin 2.5 mg tablet 1.25 mg PO MOWEFR@1800 06/19/21 06/19/21 06/17/21 History warfarin 2.5 mg tablet 2.5 mg PO SUTUTHSA@1800 06/19/21 06/19/21 06/18/21 History Physical Exam Vital Signs and Narrative: Vital Signs: Last Vital Signs Temp 98.8 F 06/19/21 10:28 Pulse 74 06/19/21 10:28 Resp 17 06/19/21 10:28 BP 101/56 L 06/19/21 10:28 Pulse Ox 97 06/19/21 10:28 Body Mass Index 21.1 Appearing in no acute distress head is normocephalic atraumatic eyes pupils are PERRLA sclera is anicteric mouth throat mucous membranes are intact and moist neck is supple no lymphadenopathy, no JVD noted lung sounds rales heart regular rate rhythm, clear S1, S2 positive bowel sounds, abdomen is soft, nontender neuro patient is alert x3, no focal deficits Results Labs CBC and Chem 7: 06/19/21 10:33 Labs: Laboratory Results - last 24 hr 06/19/21 06/19/21 06/19/21 10:33 10:33 10:33 MCV 94.1 MCH 28.9 MCHC 30.7 L RDW 17.4 H Plt Count 110 L MPV 11.8 Immature Gran % (Auto) 0.3 Neut % (Auto) 88.7 H Lymph % (Auto) 3.8 L [place] % (Auto) 6.8 Eos % (Auto) 0.2 Baso % (Auto) 0.2 Lymph # (Auto) 0.3 L [place] # (Auto) 0.6 Eos # (Auto) 0.0 Baso # (Auto) 0.0 Abs Immat Gran (auto) 0.03 Absolute Neuts (auto) 7.7 Absolute Nucleated RBC 0.000 Nucleated RBC % (auto) 0.0 PT 24.2 H D INR 2.1 H APTT 38.2 H B-Natriuretic Peptide 930 H Imaging Radiologist's Impressions: Impressions Chest X-Ray 06/19/21 09:43 IMPRESSION: Cardiomegaly with CHF. Evidence of previous CHF. No change in solitary pacer electrode with its tip in the right ventricle from previous study 05/20/2021 Assessment and Plan (1) Acute congestive heart failure: Qualifiers: Heart failure type: unspecified Qualified Code(s): I50.9 - Heart failure, unspecified Status: Acute 70 year old women admitted with acute on chronic congestive heart failure with history of systolic heart failure and ICD placement 2014. she also recently had some epistaxis and she is on warfarin for a mitral valve. She does have a rhino rocket in which is her 2nd one that she had placed this week. Heart failure with reduced ejection fraction. History of congestive heart failure and ICD Will treat with IV Lasix Cardiology consultation Strict intake and output, daily weights Follow BNP Epistaxis. Started on Thursday Has had 2 rhino rockets, the when she has a now was replaced yesterday Will start on empiric antibiotics, will need to have someone from the ER, to either removed or changed on rocket when needed. Will have to continue warfarin due to her mitral valve, discussed with Cardiology monitor closely for any signs of bleeding Mitral valve. INR subtherapeutic Discussed with Cardiology, continue warfarin Chronic kidney disease. Baseline. Follow BMP Normocytic anemia. The epistaxis present Follow CBC DVT prophylaxis with warfarin Attending Dr. Eng Full code Quality Stroke Does the patient have a stroke diagnosis?: No VTE Prior VTE?: No VTE Risk Level:: Medical - moderate - high VTE Device Contraindication: Treatment Not Indicated VTE Drug Contraindication: N/A - Med Ordered
[2021-06-19 14:45] LABS: Influenza A PCR NEGATIVE (Negative); Influenza B PCR NEGATIVE (Negative); Resp Syncy Virus RNA Qual PCR NEGATIVE (Negative); SARS COV2 PCR INHOUSE NEGATIVE (Negative)
--- NOTE | 2021-06-19 15:05 | P.EN_ITS ---
Event Note Date of Service: 06/19/21 Event Note: the patient was seen and evaluated with Ivis Schneider NP. I agree with her note, assessment and plan with the following. A 68 years old lady with PMH of systolic CHF, CMP on ICD, MVR on warfarin among others who presented to the hospital with worsening shortness of breath and epistaxis. CHF exacerbation IV Lasix, Cardiology evaluation, telemetry Epistaxis Local measures, and Afrin drops if needed Rest of evaluations by NETWORK SECURITY ANALYST note.
[2021-06-19] MEDS: 0.9 % Sodium Chloride Flush 3 ML SYRINGE IVFLUSH (16:36)
[2021-06-19] MEDS: carvediloL 25 MG TABLET PO (16:36)
[2021-06-19] MEDS: Warfarin Sodium 1.25 MG HALFTAB PO (18:20)
[2021-06-19] MEDS: Acetaminophen 325 MG TABLET 650 MG PO (19:36)
[2021-06-19] MEDS: Ferrous Sulfate 324 MG TABLET.DR PO (20:58)
[2021-06-19] MEDS: Isosorbide Dinitrate 5 MG TABLET PO (20:58)
[2021-06-19] MEDS: Ascorbic Acid 500 MG TABLET PO (20:58)
[2021-06-19] MEDS: hydrOXYzine HCL 25 MG TABLET PO (21:32)
[2021-06-19] MEDS: traZODone HCL 50 MG TABLET PO (22:42)
[2021-06-20] VITALS (10 sets, daily range): BP systolic 91–121; BP diastolic 52–57; PULSE 73–87; RESP 17–18; TEMP 36.4–37.2; O2SAT 96–99
[2021-06-20] MEDS: 0.9 % Sodium Chloride Flush 3 ML SYRINGE IVFLUSH ×4 (00:26→20:34)
--- NOTE | 2021-06-20 02:29 | PC.NURSE ---
Pt c/o of trouble breathing and uncomfortable feeling due to nasal packing. Pt stated she would like it taken out. Dr Teran notified. This RN explained to pt that if nasal rocket was removed and bleeding continues it would have to be replaced. Per Dr Teran ok to remove. Dr Minor removed nasal rocket at 2200. Pt having occasional nasal bleeding and c/o of bloody sputum. Pt did expel large blood clot from mouth. Nasal bleeding subsiding. Dr Teran notified. To monitor at this time.
[2021-06-20] MEDS: Oxymetazoline HCl 0.05 % Nasal 15 ML SPRAY 2 SPRAY NOSTRIL-B (04:03)
[2021-06-20] MEDS: Levothyroxine Sodium 25 MCG TABLET PO (05:15)
[2021-06-20] MEDS: Levothyroxine Sodium 112 MCG TABLET PO (05:15)
[2021-06-20] MEDS: Omeprazole 20 MG CAPSULE.DR PO (05:15)
[2021-06-20 06:27] LABS: MANUAL DIFF FLAG NO
[2021-06-20 06:42] LABS: INTERNATIONAL NORM RATIO 1.8 (0.9-1.1); Prothrombin Time 20.8 SEC (9.9-13.0)
[2021-06-20 06:50] LABS: Basophils Percent Auto 0.5 % (0-2); Eosinophils Absolute Auto 0.1 X10*3/uL (0.0-0.4); Eosinophils Percent Auto 1.1 % (0-4); Hematocrit 32.1 % (37-47); Hemoglobin 9.7 g/dl (12.0-16.0); Imm Gran Abs Auto 0.09 X10*3/uL (0.00-0.03); Lymphocytes Absolute Auto 0.7 X10*3/uL (1.2-4.9); Mean Corpuscular HGB Conc 30.2 g/dl (31.0-35.0); Mean Corpuscular Hemoglobin 28.2 pg (27.0-33.0); Mean Corpuscular Volume 93.3 fL (80-98); Monocytes Percent Auto 10.8 % (2-11); Neutrophils Percent Auto 78.6 % (45-73); Platelet Count 143 X10*3/uL (160-400); Red Blood Count 3.44 X10*6/uL (4.20-5.50); Red Cell Distribution Width 17.5 % (11.0-16.0); White Blood Count 8.9 X10*3/uL (4.8-10.8)
[2021-06-20 07:01] LABS: B Type Natriuretic Peptide 872 pg/mL (<100)
[2021-06-20 07:05] LABS: Anion Gap 13 (12-20); Blood Urea Nitrogen 60 mg/dL (9-16); Carbon Dioxide 24 mmol/L (22-29); Chloride 108 mmol/L (96-108); Creatinine Clr Calc Pharmacy 27.5; Estimated Glomerular Filt Rate 25; Glucose Random 92 mg/dL (60-115); Potassium 4.7 mmol/L (3.3-5.1); Sodium 140 mmol/L (135-145)
--- NOTE | 2021-06-20 08:06 | P.PNIM_ITS ---
Progress Note: A&P (1) Epistaxis: Status: Acute <Ivis Schneider NP - Last Filed: 06/20/21 10:15> (2) Acute congestive heart failure: Status: Acute <Ivis Schneider NP - Last Filed: 06/20/21 10:15> Assessment and Plan: 70 year old women admitted with acute on chronic congestive heart failure with history of systolic heart failure and ICD placement 2014. she also recently had some epistaxis and she is on warfarin for a mitral valve.? She does have a rhino rocket in which is her 2nd one that she had placed this week. Heart failure with reduced ejection fraction.? History of congestive heart failure and ICD continue IV Lasix and switch to oral lasix tomorrow Cardiology following Strict intake and output, daily weights BNP 872, trending down Epistaxis.? Started on Thursday Has had 2 rhino rockets, the when she has a now was replaced yesterday taken out last night d/t patients discomfort still has some ozzing and clotting in throat stop warfarin monitor closely for any signs of overt bleeding Mitral valve.? INR subtherapeutic Discussed with Cardiology, stop warfarin and aspirin start IV heparin without bolus this evening, will overlap warfarin and heparin once epistaxis is better controlled. PT/INR daily Chronic kidney disease.? Baseline.? Follow BMP Normocytic anemia.?epistaxis present Follow CBC DVT prophylaxis ambulation, heparin will be started and once epistaxis is under control can overlap with warfarin Attending Dr. Fitzgerald Full code <Ivis Schneider NP - Last Filed: 06/20/21 10:15> Subjective Subjective Date of Service: 06/20/21 <Ivis Schneider NP - Last Filed: 06/20/21 10:15> 06/20/21 <Rishi Fitzgerald MD - Last Filed: 06/20/21 17:49> Interval History: Follow up CHF, epistaxis feeling anxious about her INR being low <Ivis Schneider NP - Last Filed: 06/20/21 10:15> Physical Exam Vital Signs: Vital Signs: Last Vital Signs Temp 98.4 F 06/20/21 07:55 Pulse 77 06/20/21 07:55 Resp 18 06/20/21 07:55 BP 121/56 L 06/20/21 07:55 Pulse Ox 97 06/20/21 07:55 Body Mass Index 21.1 <Ivis Schneider NP - Last Filed: 06/20/21 10:15> Appearing in no acute distress Rhino rocket removed from right nare last night. still oozing some blood, no overt bleeding lung sounds rales heart regular rate rhythm, clear S1, S2 positive bowel sounds, abdomen is soft, nontender neuro patient is alert x3, no focal deficits <Ivis Schneider NP - Last Filed: 06/20/21 10:15> Objective Data Current Medications Generic Name Dose Route Start Last Admin Trade Name Rey PRN Reason Stop Dose Admin Acetaminophen 650 mg 06/19/21 13:20 06/19/21 19:36 Acetaminophen 325 Mg Tablet PO 650 mg Q6H PRN Administration Pain, Mild (Pain Scale 1-3) Ascorbic Acid 500 mg 06/19/21 21:00 06/19/21 20:58 Ascorbic Acid 500 Mg Tablet PO 500 mg BID [facility] Administration Atorvastatin Calcium 40 mg 06/20/21 09:00 Atorvastatin Calcium 40 Mg Tablet PO DAILY [facility] Calcium Carbonate/Cholecalciferol 500 mg 06/20/21 09:00 Calcium + Vitamin D 250 Mg Tablet PO DAILY [facility] Carvedilol 25 mg 06/19/21 17:00 06/19/21 16:36 Carvedilol 25 Mg Tablet PO 25 mg BIDWM [facility] Administration Protocol Erythromycin 1 cm 06/20/21 09:00 Erythromycin Base 0.5% Oph Oin 1 Gm Tube EYE-BOTH DAILY [facility] Ferrous Sulfate 324 mg 06/19/21 21:00 06/19/21 20:58 Ferrous Sulfate 324 Mg Tablet.Dr PO 324 mg BID [facility] Administration Fluoxetine HCl 20 mg 06/20/21 09:00 Fluoxetine Hcl 20 Mg Capsule PO DAILY [facility] Isosorbide Dinitrate 5 mg 06/19/21 21:00 06/19/21 20:58 Isosorbide Dinitrate 5 Mg Tablet PO 5 mg BID [facility] Administration Protocol Levothyroxine Sodium 25 mcg 06/20/21 06:00 06/20/21 05:15 Levothyroxine Sodium 25 Mcg Tablet PO 25 mcg DAILY@0600 [facility] Administration Levothyroxine Sodium 112 mcg 06/20/21 06:00 06/20/21 05:15 Levothyroxine Sodium 112 Mcg Tablet PO 112 mcg DAILY@0600 [facility] Administration Meclizine HCl 25 mg 06/19/21 13:23 Meclizine Hcl 25 Mg Tablet PO TID PRN dizziness Multivitamins/Minerals 1 tab 06/19/21 21:00 06/19/21 20:58 Vits A,C,E/Lutein/Minerals Tablet PO 1 tab BID [facility] Administration Omeprazole 20 mg 06/20/21 06:30 06/20/21 05:15 Omeprazole 20 Mg Capsule.Dr PO 20 mg DAILY@0630 [facility] Administration Ondansetron HCl 4 mg 06/19/21 13:20 Ondansetron Hcl 4 Mg/2 Ml Vial IVPUSH Q8H PRN Nausea and Vomiting Oxymetazoline HCl 2 spray 06/19/21 14:56 06/20/21 04:03 Oxymetazoline Hcl 0.05 % Nasal 15 Ml [place] NOSTRIL-B 06/22/21 14:56 2 spray BID PRN Administration Allergic Symptoms Pharmacy Consult 1 each 06/19/21 12:16 Consult Rx Perform Med Rec MISCELLANE ONCE PRN Consult order Potassium Chloride 20 meq 06/21/21 09:00 Potassium Chloride Er 20 Meq Tab.Er.Prt PO Q48H [facility] Senna 17.2 mg 06/19/21 13:23 Sennosides 8.6 Mg Tablet PO BEDTIME PRN Constipation Sodium Chloride 3 ml 06/19/21 16:00 06/20/21 00:26 0.9 % Sodium Chloride Flush 3 Ml Syringe IVFLUSH 3 ml QSHIFT [facility] Administration Trazodone HCl 50 mg 06/19/21 13:23 06/19/21 22:42 Trazodone Hcl 50 Mg Tablet PO 50 mg DAILY PRN Administration for insomnia Warfarin Sodium 1.25 mg 06/19/21 18:00 06/19/21 18:20 Warfarin Sodium 1.25 Mg Halftab PO 1.25 mg MOWEFR@1800 [facility] Administration <Ivis Schneider NP - Last Filed: 06/20/21 10:15> Labs CBC & Chem 7: : 06/20/21 05:31 06/20/21 05:31 <Ivis Schneider NP - Last Filed: 06/20/21 10:15> Labs: Laboratory Results - last 24 hr 06/19/21 06/19/21 06/19/21 10:33 10:33 10:33 MCV 94.1 MCH 28.9 MCHC 30.7 L RDW 17.4 H Plt Count 110 L MPV 11.8 Immature Gran % (Auto) 0.3 Neut % (Auto) 88.7 H Lymph % (Auto) 3.8 L [place] % (Auto) 6.8 Eos % (Auto) 0.2 Baso % (Auto) 0.2 Lymph # (Auto) 0.3 L [place] # (Auto) 0.6 Eos # (Auto) 0.0 Baso # (Auto) 0.0 Abs Immat Gran (auto) 0.03 Absolute Neuts (auto) 7.7 Absolute Nucleated RBC 0.000 Nucleated RBC % (auto) 0.0 PT 24.2 H D INR 2.1 H APTT 38.2 H Anion Gap Estim Creat Clear Calc Estimated GFR Random Glucose Calcium B-Natriuretic Peptide 930 H Coronavirus (PCR) Influenza Type A (PCR) Influenza Type B (PCR) RSV RNA Qual (PCR) 06/19/21 06/20/21 06/20/21 12:44 05:31 05:31 MCV 93.3 MCH 28.2 MCHC 30.2 L RDW 17.5 H Plt Count 143 L D MPV 13.0 H Immature Gran % (Auto) 1.0 H Neut % (Auto) 78.6 H Lymph % (Auto) 8.0 L [place] % (Auto) 10.8 Eos % (Auto) 1.1 Baso % (Auto) 0.5 Lymph # (Auto) 0.7 L [place] # (Auto) 1.0 Eos # (Auto) 0.1 Baso # (Auto) 0.0 Abs Immat Gran (auto) 0.09 H Absolute Neuts (auto) 7.0 Absolute Nucleated RBC 0.000 Nucleated RBC % (auto) 0.0 PT INR APTT Anion Gap 13 Estim Creat Clear Calc 27.5 Estimated GFR 25 Random Glucose 92 Calcium 8.0 L B-Natriuretic Peptide Coronavirus (PCR) NEGATIVE Influenza Type A (PCR) NEGATIVE Influenza Type B (PCR) NEGATIVE RSV RNA Qual (PCR) NEGATIVE 06/20/21 06/20/21 05:31 05:31 MCV MCH MCHC RDW Plt Count MPV Immature Gran % (Auto) Neut % (Auto) Lymph % (Auto) [place] % (Auto) Eos % (Auto) Baso % (Auto) Lymph # (Auto) [place] # (Auto) Eos # (Auto) Baso # (Auto) Abs Immat Gran (auto) Absolute Neuts (auto) Absolute Nucleated RBC Nucleated RBC % (auto) PT 20.8 H INR 1.8 H APTT Anion Gap Estim Creat Clear Calc Estimated GFR Random Glucose Calcium B-Natriuretic Peptide 872 H Coronavirus (PCR) Influenza Type A (PCR) Influenza Type B (PCR) RSV RNA Qual (PCR) <Ivis Schneider NP - Last Filed: 06/20/21 10:15> Quality Stroke Does the patient have a stroke diagnosis?: No <Ivis Schneider NP - Last Filed: 06/20/21 10:15> VTE Prior VTE?: No <Ivis Schneider NP - Last Filed: 06/20/21 10:15> VTE Risk Level:: Medical - moderate - high <Ivis Schneider NP - Last Filed: 06/20/21 10:15> VTE Device Contraindication: Treatment Not Indicated <Ivis Schneider NP - Last Filed: 06/20/21 10: 15> VTE Drug Contraindication: N/A - Med Ordered <Ivis Schneider NP - Last Filed: 06/20/21 10:15>
--- NOTE | 2021-06-20 09:10 | MHC.CM.PN ---
CM met with Patient at bedside and addressed IMM with her, providing her with the original and placing a copy on the chart. Patient lives alone on the first floor of a 2 family house, with her Daughter living upstairs. Patient receives MOWs and is not interested in VNA (does not want people in her home during Covid nor with her dog being there). Patient's goal is home/resume MOWs and CM has initiated and will follow for dc planning. PCP is Dr. Dakotah Jin and Patient's Brother/Ajay is the HCP.
[2021-06-20] MEDS: Furosemide 40 MG/4 ML VIAL IVPUSH ×2 (09:34→17:30)
[2021-06-20] MEDS: Atorvastatin Calcium 40 MG TABLET PO (09:34)
--- NOTE | 2021-06-20 09:34 | P.CONCA_ITS ---
History of Present Illness History of Present Illness Date of Service: 06/20/21 Requesting physician: Ivis Schneider Consult reason: atrial fibrillation Chief complaint: Management of anticoagulation Narrative: I was requested to see [place] in cardiology consultation today. She is 70-year-old woman with multiple medical problems and cardiology problems with prior history of ischemic cardiomyopathy severe LV systolic dysfunction, heart f ailure with reduced ejection fraction, chronic atrial fibrillation, Saint René mitral valve replacement, chronic kidney disease, ICD in place. Present hospital with epistaxis. She said she had picture nose co a week ago and then subsequently started bleeding and that continued. She was very bothered by it. She finally came to the emergency room where she had right nostril packing. Her last night she says she could not breathe at nighttime and the packing was removed. She is now again having some epistaxis in the right nostril. Is not as severe as before. She says she is having clots in her throat. She is very worried about INR which today is 1.8 given her [place] René mitral valve. INR yesterday was subtherapeutic at 2.1. Her aspirin and Coumadin have been withheld. She denies any cardiac complaints at current time. Review of Systems Constitutional: Constitutional: Reports no additional constitutional complaints Eyes: Eyes: Reports no additional eye complaints ENT: Reports epistaxis Cardiovascular: Cardiovascular: Reports no additional cardiovascular complaints Respiratory: Respiratory: Reports no additional respiratory complaints Gastrointestinal: Gastrointestinal: Reports no additional gastrointestinal complaints Genitourinary: Genitourinary: Reports no additional female genitourinary complaints Musculoskeletal: Musculoskeletal: Reports no additional musculoskeletal complaints Integumentary/Breasts: Skin/Breast: Reports system reviewed and no additional complaints, except as docu Neurologic: Reports system reviewed and no additional complaints, except as documented Psychiatric: Psychiatric: Reports no additional psychiatric complaints Endocrine: Endocrine: Reports no additional endocrine complaints Hematologic/Lymphatic: Hematologic/Lymphatic: Reports no additional hematologic/lymphatic complaints [facility] Past Medical History Medical History Amyloidosis Anxiety and depression Arthritis Bladder hypertonicity Chronic atrial fibrillation Chronic HFrEF (heart failure with reduced ejection fraction) Chronic kidney disease (CKD) stage G4/A1, severely decreased glomerular filtration rate (GFR) between 15-29 mL/min/1.73 square meter and albuminuria creatinine ratio less than 30 mg/g Detached retina Gout Heart disease History of breast cancer History of breast cancer HTN (hypertension) Hypercholesterolemia Hypothyroid ICD (implantable cardioverter-defibrillator) in place Ischemic cardiomyopathy Kidney disease Nephrolithiasis Osteoarthritis Overweight (BMI 25.0-29.9) Pulmonary hypertension Thumb tendonitis Tricuspid regurgitation Urinary incontinence Family History Family History Mother Diabetes Father Past heart attack Diabetes Sister Parkinsons disease Surgical History Surgical History H/O abdominal hysterectomy H/O mitral valve replacement H/O mitral valve replacement with mechanical valve History of bunionectomy History of cataract surgery History of colonoscopy History of left inguinal hernia repair History of sleeve gastrectomy Social History Social History Household Members: None Household Members Other:: brother lives downstairs Housing: Apartment Do you presently have visiting nurse or other home services: No Alcohol intake: never Patient Tobacco Use Status: Never used Tobacco Tobacco use type: Cigarette e-Cigarette/Vaping Use: Never Used Second Hand Smoke Exposure: No Use of substances other than those prescribed or required for medical reasons: No Currently Displaying Signs/Symptoms of Drug Intoxication Withdrawal: No Have you been hit, kicked, punched, or otherwise hurt by someone within the past year? If so, by whom?: No Do you feel safe in your current relationship?: Yes Is there a partner from a previous relationship who is making you feel unsafe now?: No Are you made to feel afraid or neglected: No Advance Directives: No Advance Directives Information Provided: No Do you have thoughts of harming others: None Do you have a plan to hurt others: No Plan Recently lost weight without trying: No service: No Current occupational status: disabled Current occupation: left handed Meds Allergies Allergy/AdvReac Type Severity Reaction Status Date / Time TAPE,PAPER Allergy Unknown RASH TO Uncoded 05/23/21 09:57 PAPER TAPE Active Medications: Current Medications Generic Name Dose Route Start Last Admin Trade Name Freq PRN Reason Stop Dose Admin Acetaminophen 650 mg 06/19/21 13:20 06/19/21 19:36 Acetaminophen 325 Mg Tablet PO 650 mg Q6H PRN Administration Pain, Mild (Pain Scale 1-3) Ascorbic Acid 500 mg 06/19/21 21:00 06/19/21 20:58 Ascorbic Acid 500 Mg Tablet PO 500 mg BID [facility] Administration Atorvastatin Calcium 40 mg 06/20/21 09:00 Atorvastatin Calcium 40 Mg Tablet PO DAILY [facility] Calcium Carbonate/Cholecalciferol 500 mg 06/20/21 09:00 Calcium + Vitamin D 250 Mg Tablet PO DAILY [facility] Carvedilol 25 mg 06/19/21 17:00 06/19/21 16:36 Carvedilol 25 Mg Tablet PO 25 mg BIDWM [facility] Administration Protocol Erythromycin 1 cm 06/20/21 09:00 Erythromycin Base 0.5% Oph Oin 1 Gm Tube EYE-BOTH DAILY [facility] Ferrous Sulfate 324 mg 06/19/21 21:00 06/19/21 20:58 Ferrous Sulfate 324 Mg Tablet. PO 324 mg BID [facility] Administration Fluoxetine HCl 20 mg 06/20/21 09:00 Fluoxetine Hcl 20 Mg Capsule PO DAILY [facility] Furosemide 40 mg 06/20/21 09:00 Furosemide 40 Mg/4 Ml Vial IVPUSH BID@0900,1800 [facility] Protocol Isosorbide Dinitrate 5 mg 06/19/21 21:00 06/19/21 20:58 Isosorbide Dinitrate 5 Mg Tablet PO 5 mg BID [facility] Administration Protocol Levothyroxine Sodium 25 mcg 06/20/21 06:00 06/20/21 05:15 Levothyroxine Sodium 25 Mcg Tablet PO 25 mcg DAILY@0600 [facility] Administration Levothyroxine Sodium 112 mcg 06/20/21 06:00 06/20/21 05:15 Levothyroxine Sodium 112 Mcg Tablet PO 112 mcg DAILY@0600 [facility] Administration Meclizine HCl 25 mg 06/19/21 13:23 Meclizine Hcl 25 Mg Tablet PO TID PRN dizziness Multivitamins/Minerals 1 tab 06/19/21 21:00 06/19/21 20:58 Vits A,C,E/Lutein/Minerals Tablet PO 1 tab BID [facility] Administration Omeprazole 20 mg 06/20/21 06:30 06/20/21 05:15 Omeprazole 20 Mg Capsule. PO 20 mg DAILY@0630 [facility] Administration Ondansetron HCl 4 mg 06/19/21 13:20 Ondansetron Hcl 4 Mg/2 Ml Vial IVPUSH Q8H PRN Nausea and Vomiting Oxymetazoline HCl 2 spray 06/19/21 14:56 08/12/21 04:03 Oxymetazoline Hcl 0.05 % Nasal 15 Ml [place] NOSTRIL-B 06/22/21 14:56 2 spray BID PRN Administration Allergic Symptoms Pharmacy Consult 1 each 06/19/21 12:16 Consult Rx Perform Med Rec MISCELLANE ONCE PRN Consult order Potassium Chloride 20 meq 06/21/21 09:00 Potassium Chloride Er 20 Meq Tab.Er.Prt PO Q48H [facility] Senna 17.2 mg 06/19/21 13:23 Sennosides 8.6 Mg Tablet PO BEDTIME PRN Constipation Sodium Chloride 3 ml 06/19/21 16:00 06/20/21 00:26 0.9 % Sodium Chloride Flush 3 Ml Syringe IVFLUSH 3 ml QSHIFT [facility] Administration Trazodone HCl 50 mg 06/19/21 13:23 06/19/21 22:42 Trazodone Hcl 50 Mg Tablet PO 50 mg DAILY PRN Administration for insomnia Warfarin Sodium 1.25 mg 06/19/21 18:00 06/19/21 18:20 Warfarin Sodium 1.25 Mg Halftab PO 1.25 mg MOWEFR@1800 [facility] Administration Warfarin Sodium 5 mg 06/20/21 18:00 Warfarin Sodium 5 Mg Tablet PO SUTUTHSA@1800 [facility] Home Medications Medication Instructions Recorded Confirmed Last Taken Type acetaminophen 325 mg capsule 325 mg PO QID PRN 08/06/20 06/19/21 Unknown History (Tylenol) vit C 250 mg-vit E 90 mg-zinc 40 1 tab PO BID 08/06/20 06/19/21 04/08/21 08:00 History mg-copper 1 [id number] capsule (PreserVision AREDS-2) ferrous sulfate 324 mg (65 mg 324 mg PO BID 11/05/20 06/19/21 06/19/21 History iron) tablet,delayed release sennosides 8.6 mg tablet 17.2 mg PO BEDTIME PRN 02/05/21 06/19/21 03/29/21 History erythromycin 5 mg/gram (0.5 %) eye 5 mg OPHTHALMIC (EYE) DAILY 05/14/21 06/19/21 06/18/21 History ointment calcium carbonate 500 mg (1,250 1.5 tab PO DAILY 06/19/21 06/19/21 06/18/21 History mg)-vitamin D3 125 unit tablet carvedilol 25 mg tablet (Coreg) 25 mg PO BIDWM 06/19/21 06/19/21 06/19/21 History potassium chloride 20 mEq 20 meq PO Q48H 06/19/21 06/19/21 06/19/21 History tablet,extended release(part/cryst) (Klor-Con M) warfarin 2.5 mg tablet 1.25 mg PO MOWEFR@1800 06/19/21 06/19/21 06/17/21 History warfarin 2.5 mg tablet 2.5 mg PO SUTUTHSA@1800 06/19/21 06/19/21 06/18/21 History Physical Exam Vital Signs: Vital Signs: Last Vital Signs Temp 98.4 F 06/20/21 07:55 Pulse 77 06/20/21 07:55 Resp 18 06/20/21 07:55 BP 121/56 L 06/20/21 07:55 Pulse Ox 97 06/20/21 07:55 Body Mass Index 21.1 Const: General: cooperative, comfortable, alert, awake and anxious Nutritional Appearance: thin Orientation/consciousness: patient oriented x3 HENMT: Head: Yes normocephalic and Yes atraumatic General nose exam: Epistaxis present on the right active bleeding and source not visualized Neck: Neck: Yes trachea midline, Yes supple and Yes no JVD Resp: Effort & Inspection: normal respiratory effort Auscultation: clear to auscultation bilaterally Cardio: Jugular venous distension: no JVD Palpation: abnormal PMI displaced PMI Rate: regular rate Rhythm: abnormal rhythm irregularly irregular Heart sounds: S2 normal heart sound present, no gallops, no murmurs, no rubs and Other heart sounds present ([place] opening and closing click of Saint René mitral valve) GI: Auscultation: normal bowel sounds Skin: General skin exam: no rashes or lesions noted Neuro: General: patient oriented x3 and no focal motor deficits Extrem: General: Yes no clubbing, cyanosis or edema Results Labs and Meds Result diagrams: 06/20/21 05:31 06/20/21 05:31 Lab results: Laboratory Results - last 24 hr 06/19/21 06/19/21 06/19/21 10:33 10:33 10:33 WBC 8.7 RBC 3.39 L Hgb 9.8 L Hct 31.9 L MCV 94.1 MCH 28.9 MCHC 30.7 L RDW 17.4 H Plt Count 110 L MPV 11.8 Immature Gran % (Auto) 0.3 Neut % (Auto) 88.7 H Lymph % (Auto) 3.8 L [place] % (Auto) 6.8 Eos % (Auto) 0.2 Baso % (Auto) 0.2 Lymph # (Auto) 0.3 L [place] # (Auto) 0.6 Eos # (Auto) 0.0 Baso # (Auto) 0.0 Abs Immat Gran (auto) 0.03 Absolute Neuts (auto) 7.7 Absolute Nucleated RBC 0.000 Nucleated RBC % (auto) 0.0 PT 24.2 H D INR 2.1 H APTT 38.2 H Sodium Potassium Chloride Carbon Dioxide Anion Gap BUN Creatinine Estim Creat Clear Calc Estimated GFR Random Glucose Calcium B-Natriuretic Peptide 930 H Coronavirus (PCR) Influenza Type A (PCR) Influenza Type B (PCR) RSV RNA Qual (PCR) 06/19/21 06/20/21 06/20/21 12:44 05:31 05:31 WBC 8.9 RBC 3.44 L Hgb 9.7 L Hct 32.1 L MCV 93.3 MCH 28.2 MCHC 30.2 L RDW 17.5 H Plt Count 143 L D MPV 13.0 H Immature Gran % (Auto) 1.0 H Neut % (Auto) 78.6 H Lymph % (Auto) 8.0 L [place] % (Auto) 10.8 Eos % (Auto) 1.1 Baso % (Auto) 0.5 Lymph # (Auto) 0.7 L [place] # (Auto) 1.0 Eos # (Auto) 0.1 Baso # (Auto) 0.0 Abs Immat Gran (auto) 0.09 H Absolute Neuts (auto) 7.0 Absolute Nucleated RBC 0.000 Nucleated RBC % (auto) 0.0 PT INR APTT Sodium 140 Potassium 4.7 Chloride 108 Carbon Dioxide 24 Anion Gap 13 BUN 60 H Creatinine 1.98 H Estim Creat Clear Calc 27.5 Estimated GFR 25 Random Glucose 92 Calcium 8.0 L B-Natriuretic Peptide Coronavirus (PCR) NEGATIVE Influenza Type A (PCR) NEGATIVE Influenza Type B (PCR) NEGATIVE RSV RNA Qual (PCR) NEGATIVE 06/20/21 06/20/21 05:31 05:31 WBC RBC Hgb Hct MCV MCH MCHC RDW Plt Count MPV Immature Gran % (Auto) Neut % (Auto) Lymph % (Auto) [place] % (Auto) Eos % (Auto) Baso % (Auto) Lymph # (Auto) [place] # (Auto) Eos # (Auto) Baso # (Auto) Abs Immat Gran (auto) Absolute Neuts (auto) Absolute Nucleated RBC Nucleated RBC % (auto) PT 20.8 H INR 1.8 H APTT Sodium Potassium Chloride Carbon Dioxide Anion Gap BUN Creatinine Estim Creat Clear Calc Estimated GFR Random Glucose Calcium B-Natriuretic Peptide 872 H Coronavirus (PCR) Influenza Type A (PCR) Influenza Type B (PCR) RSV RNA Qual (PCR) EKG shows atrial fibrillation with nonspecific ST changes Imaging Radiologist's impression: Impressions Chest X-Ray 06/19/21 09:43 IMPRESSION: Cardiomegaly with CHF. Evidence of previous CHF. No change in solitary pacer electrode with its tip in the right ventricle from previous study 05/20/2021 Assessment and Plan (1) Epistaxis: Status: Acute Patient present with significant epistaxis requiring nasal packing. This presents difficult clinical scenario given that she has Saint René mitral valve replacement along with atrial fibrillation. Her INR is subtherapeutic today. She is very concerned about the same. Discussed about short duration of holding anticoagulation should not increase the risk significantly. For now however advised to control or epistaxis with local methods. Once this is controlled, hopefully later in the day today can be started on IV heparin without bolus bladimir ntaining PTT at the lower level of therapeutic range. Hold off on warfarin aspirin for now. Will overlap IV heparin and Coumadin once her epistaxis is under control. (2) Chronic HFrEF (heart failure with reduced ejection fraction): Status: Acute Patient with chronic heart failure with reduced ejection fraction. Clinically does not appear to be significantly fluid overloaded at this point time. Can continue IV Lasix for 1 more day but switch to oral Lasix starting tomorrow. Continue with Isordil as well as carvedilol. Add low-dose hydralazine for afterload reduction with 10 mg b.i.d.. (3) H/O mitral valve replacement: Status: Acute History of mitral valve replacement before. Was on warfarin aspirin. This has been withheld due to her active epistaxis. This needs to be controlled see 1. Eventually will need to be bridged with IV heparin. Continue supportive care. Patient is very anxious about the whole situation, was reassured. Will sign of the case, re-consult p.r.n.. Procedures Date of Service Date of Service: 06/20/21
[2021-06-20] MEDS: Isosorbide Dinitrate 5 MG TABLET PO ×2 (09:35→20:34)
[2021-06-20] MEDS: Calcium + Vitamin D 250 MG TABLET 500 MG PO (09:35)
[2021-06-20] MEDS: Ascorbic Acid 500 MG TABLET PO ×2 (09:35→20:34)
[2021-06-20] MEDS: FLUoxetine HCl 20 MG CAPSULE PO (09:35)
[2021-06-20] MEDS: carvediloL 25 MG TABLET PO ×2 (09:35→17:29)
[2021-06-20] MEDS: Ferrous Sulfate 324 MG TABLET.DR PO ×2 (09:36→20:34)
[2021-06-20] MEDS: Erythromycin Base 0.5% Oph Oin 1 GM TUBE 1 CM EYE-BOTH (09:36)
[2021-06-20 11:47] LABS: PTT Heparin Drip 37.1 SEC (53-77.9)
--- NOTE | 2021-06-20 16:40 | PC.NURSE ---
Patient in IMC for monitoring of CHF. Lungs clear today, Lasix as ordered. Minimal bleeding form nose today. No compression needed to nares. Black tarry stools noted. VSS PureWick in use for urine collection. IV Heparin to start this evening for anticoagulation d/t Mechanival Mitral valve.
[2021-06-20] MEDS: Heparin Sodium,Porcine/1/2NS 25,000 UNIT/250 ML IV.SOLN 7.78 UNIT IVCONT (17:34)
[2021-06-20 19:20] LABS: Hematocrit 29.5 % (37-47); Hemoglobin 9.1 g/dl (12.0-16.0); Mean Corpuscular HGB Conc 30.8 g/dl (31.0-35.0); Mean Corpuscular Hemoglobin 28.8 pg (27.0-33.0); Mean Corpuscular Volume 93.4 fL (80-98); Mean Platelet Volume 12.5 fL (9.4-12.3); Platelet Count 151 X10*3/uL (160-400); Red Blood Count 3.16 X10*6/uL (4.20-5.50); Red Cell Distribution Width 17.6 % (11.0-16.0); White Blood Count 7.8 X10*3/uL (4.8-10.8)
[2021-06-20 23:53] LABS: PTT Heparin Drip 50.9 SEC (53-77.9)
[2021-06-21] VITALS (9 sets, daily range): BP systolic 82–110; BP diastolic 52–62; PULSE 62–86; RESP 17–19; TEMP 35.8–36.7; O2SAT 97–99
[2021-06-21] MEDS: Heparin Sodium,Porcine 5,000 UNIT/ML VIAL 2600 UNIT IVPUSH (00:07)
[2021-06-21] MEDS: Omeprazole 20 MG CAPSULE.DR PO (05:34)
[2021-06-21] MEDS: Levothyroxine Sodium 25 MCG TABLET PO (05:34)
[2021-06-21] MEDS: Levothyroxine Sodium 112 MCG TABLET PO (05:34)
[2021-06-21 06:20] LABS: Hematocrit 30.7 % (37-47); Hemoglobin 9.3 g/dl (12.0-16.0); Mean Corpuscular HGB Conc 30.3 g/dl (31.0-35.0); Mean Corpuscular Volume 92.5 fL (80-98); Mean Platelet Volume 12.3 fL (9.4-12.3); Platelet Count 146 X10*3/uL (160-400); Red Blood Count 3.32 X10*6/uL (4.20-5.50); Red Cell Distribution Width 17.4 % (11.0-16.0); White Blood Count 6.7 X10*3/uL (4.8-10.8)
[2021-06-21 07:01] LABS: INTERNATIONAL NORM RATIO 1.6 (0.9-1.1); Prothrombin Time 18.5 SEC (9.9-13.0)
[2021-06-21 07:21] LABS: Anion Gap 19 (12-20); Blood Urea Nitrogen 88 mg/dL (9-16); Calcium 8.3 mg/dL (8.4-10.2); Carbon Dioxide 21 mmol/L (22-29); Chloride 107 mmol/L (96-108); Creatinine Clr Calc Pharmacy 20.9; Estimated Glomerular Filt Rate 18; Glucose Random 88 mg/dL (60-115); Potassium 4.5 mmol/L (3.3-5.1); Sodium 142 mmol/L (135-145)
[2021-06-21] MEDS: FLUoxetine HCl 20 MG CAPSULE PO (08:21)
[2021-06-21] MEDS: Furosemide 40 MG/4 ML VIAL IVPUSH (08:21)
[2021-06-21] MEDS: carvediloL 25 MG TABLET PO ×2 (08:22→18:01)
[2021-06-21] MEDS: Ferrous Sulfate 324 MG TABLET.DR PO ×2 (08:22→21:46)
[2021-06-21] MEDS: Ascorbic Acid 500 MG TABLET PO ×2 (08:22→21:45)
[2021-06-21] MEDS: Calcium + Vitamin D 250 MG TABLET 500 MG PO (08:22)
[2021-06-21] MEDS: Isosorbide Dinitrate 5 MG TABLET PO (08:22)
[2021-06-21] MEDS: Erythromycin Base 0.5% Oph Oin 1 GM TUBE 1 CM EYE-BOTH (08:23)
[2021-06-21] MEDS: 0.9 % Sodium Chloride Flush 3 ML SYRINGE IVFLUSH ×3 (08:23→21:46)
[2021-06-21] MEDS: Atorvastatin Calcium 40 MG TABLET PO (08:23)
[2021-06-21] MEDS: Potassium Chloride ER 20 MEQ TAB.ER.PRT PO (08:23)
--- NOTE | 2021-06-21 10:43 | PM.PNCARD ---
Subjective Subjective Date of Service: 06/21/21 Interval history: Feels OK. No cardiac complaints. Review of Systems Review of Systems Yes all other systems are reviewed and are negative Cardiovascular: Reports as per HPI, Reports no additional cardiovascular complaints, Denies acrocyanosis, Denies cool extremities, Denies painful fingertips, Denies chest pain, Denies chest pain at rest, Denies diaphoresis, Denies syncope, Denies irregular heart rhythm, Denies claudication, Denies leg edema, Denies lightheadedness, Denies palpitations and Denies dyspnea Respiratory: Denies dyspnea Denies syncope Endocrine: Denies palpitations Physical Exam Vital Signs: Last Vital Signs Temp 97.7 F 06/21/21 07:50 Pulse 76 06/21/21 08:22 Resp 18 06/21/21 07:50 BP 102/59 L 06/21/21 08:22 Pulse Ox 98 06/21/21 07:50 Body Mass Index 21.1 Const General: cooperative and no acute distress HENVT Other: Unremarkable Neck Neck: Yes normal visual inspection Chest Chest palpation & inspection: normal inspection of the chest Resp Auscultation: clear to auscultation bilaterally, no crackles and no wheezes Cardio Other: Normal prosthetic heart sounds Jugular venous distension: no JVD Palpation: normal PMI GI Palpation (GI): Soft to palpation Back/Spine/Pelvis Other: unremarkable Skin General skin exam: no rashes or lesions noted Neuro Cranial nerves: Yes Other cranial nerve findings present Extrem General: Yes no clubbing, cyanosis or edema Psych Mental Status: other Results Labs and Meds Result diagrams: 06/21/21 06:09 06/21/21 06:09 Lab results: Laboratory Results - last 24 hr 06/20/21 06/20/21 06/20/21 11:14 18:42 23:34 WBC 7.8 RBC 3.16 L Hgb 9.1 L Hct 29.5 L MCV 93.4 MCH 28.8 MCHC 30.8 L RDW 17.6 H Plt Count 151 L MPV 12.5 H Absolute Nucleated RBC 0.000 Nucleated RBC % (auto) 0.0 PT INR PTT (Heparin Protocol) 37.1 L 50.9 L D Sodium Potassium Chloride Carbon Dioxide Anion Gap BUN Creatinine Estim Creat Clear Calc Estimated GFR Random Glucose Calcium 06/21/21 06/21/21 06/21/21 06:09 06:09 06:09 WBC 6.7 RBC 3.32 L Hgb 9.3 L Hct 30.7 L MCV 92.5 MCH 28.0 MCHC 30.3 L RDW 17.4 H Plt Count 146 L MPV 12.3 Absolute Nucleated RBC 0.000 Nucleated RBC % (auto) 0.0 PT 18.5 H INR 1.6 H PTT (Heparin Protocol) 74.0 D Sodium 142 Potassium 4.5 Chloride 107 Carbon Dioxide 21 L Anion Gap 19 BUN 88 H* D Creatinine 2.60 H Estim Creat Clear Calc 20.9 Estimated GFR 18 Random Glucose 88 Calcium 8.3 L Progress Note: A&P Assessment and plan (1) Epistaxis: Status: Acute (2) H/O mitral valve replacement: Status: Acute (3) Acute on chronic heart failure with preserved ejection fraction: Status: Acute Assessment and Plan: Bridge IV heparin to warfarin. Aspirin to be re-initiated at some point. Otherwise, may need ENT to see her for definitive therapy for epistaxis. May change IV to oral Lasix. Fall Risk Details Current Medications: Current Medications Generic Name Dose Route Start Last Admin Trade Name Freq PRN Reason Stop Dose Admin Acetaminophen 650 mg 06/19/21 13:20 06/19/21 19:36 Acetaminophen 325 Mg Tablet PO 650 mg Q6H PRN Administration Pain, Mild (Pain Scale 1-3) Ascorbic Acid 500 mg 06/19/21 21:00 06/21/21 08:22 Ascorbic Acid 500 Mg Tablet PO 500 mg BID NADINE Administration Atorvastatin Calcium 40 mg 06/20/21 09:00 06/21/21 08:23 Atorvastatin Calcium 40 Mg Tablet PO 40 mg DAILY NADINE Administration Calcium Carbonate/Cholecalciferol 500 mg 06/20/21 09:00 06/21/21 08:22 Calcium + Vitamin D 250 Mg Tablet PO 500 mg DAILY NADINE Administration Carvedilol 25 mg 06/19/21 17:00 06/21/21 08:22 Carvedilol 25 Mg Tablet PO 25 mg BIDWM NADINE Administration Protocol Erythromycin 1 cm 06/20/21 09:00 06/21/21 08:23 Erythromycin Base 0.5% Oph Oin 1 Gm Tube EYE-BOTH 1 cm DAILY NADINE Administration Ferrous Sulfate 324 mg 06/19/21 21:00 06/21/21 08:22 Ferrous Sulfate 324 Mg Tablet. PO 324 mg BID NADINE Administration Fluoxetine HCl 20 mg 06/20/21 09:00 06/21/21 08:21 Fluoxetine Hcl 20 Mg Capsule PO 20 mg DAILY NADINE Administration Heparin Sodium (Porcine) 2,600 unit 06/20/21 18:00 06/21/21 00:07 Heparin Sodium,Porcine 5,000 Unit/Ml Vial 40 unit/kg (2600 unit) 2,600 unit IVPUSH Administration PROTOCOL BOLUS PRN 40 unit/kg - Heparin Protocol Protocol Heparin Sodium (Porcine) 5,200 unit 06/20/21 18:00 Heparin Sodium,Porcine 5,000 Unit/Ml Vial 80 unit/kg (5200 unit) IVPUSH PROTOCOL BOLUS PRN 80 unit/kg - Heparin Protocol Protocol Heparin Sodium/Sodium Chloride 25,000 unit in 250 mls @ 0 mls/hr 06/20/21 18:00 06/21/21 00:07 IVCONT 14 units/kg/hr .Q0M NADINE 9.08 mls/hr Titration Protocol Per Protocol Isosorbide Dinitrate 5 mg 06/19/21 21:00 06/21/21 08:22 Isosorbide Dinitrate 5 Mg Tablet PO 5 mg BID NADINE Administration Protocol Levothyroxine Sodium 25 mcg 06/20/21 06:00 06/21/21 05:34 Levothyroxine Sodium 25 Mcg Tablet PO 25 mcg DAILY@0600 NADINE Administration Levothyroxine Sodium 112 mcg 06/20/21 06:00 06/21/21 05:34 Levothyroxine Sodium 112 Mcg Tablet PO 112 mcg DAILY@0600 NADINE Administration Meclizine HCl 25 mg 06/19/21 13:23 Meclizine Hcl 25 Mg Tablet PO TID PRN dizziness Multivitamins/Minerals 1 tab 06/19/21 21:00 06/21/21 08:22 Vits A,C,E/Lutein/Minerals Tablet PO 1 tab BID NADINE Administration Omeprazole 20 mg 06/20/21 06:30 06/21/21 05:34 Omeprazole 20 Mg Capsule. PO 20 mg DAILY@0630 NADINE Administration Ondansetron HCl 4 mg 06/19/21 13:20 Ondansetron Hcl 4 Mg/2 Ml Vial IVPUSH Q8H PRN Nausea and Vomiting Oxymetazoline HCl 2 spray 06/19/21 14:56 06/20/21 04:03 Oxymetazoline Hcl 0.05 % Nasal 15 Ml [place] NOSTRIL-B 06/22/21 14:56 2 spray BID PRN Administration Allergic Symptoms Pharmacy Consult 1 each 06/19/21 12:16 Consult Rx Perform Med Rec MISCELLANE ONCE PRN Consult order Potassium Chloride 20 meq 06/21/21 09:00 06/21/21 08:23 Potassium Chloride Er 20 Meq Tab.Er.Prt PO 20 meq Q48H NADINE Administration Senna 17.2 mg 06/19/21 13:23 Sennosides 8.6 Mg Tablet PO BEDTIME PRN Constipation Sodium Chloride 3 ml 06/19/21 16:00 06/21/21 08:23 0.9 % Sodium Chloride Flush 3 Ml Syringe IVFLUSH 3 ml QSHIFT NADINE Administration Trazodone HCl 50 mg 06/19/21 13:23 06/19/21 22:42 Trazodone Hcl 50 Mg Tablet PO 50 mg DAILY PRN Administration for insomnia Warfarin Sodium 1.25 mg 06/19/21 18:00 06/19/21 18:20 Warfarin Sodium 1.25 Mg Halftab PO 1.25 mg MOWEFR@1800 NADINE Administration Warfarin Sodium 5 mg 06/20/21 18:00 Warfarin Sodium 5 Mg Tablet PO SUTUTHSA@1800 NADINE Time Spent With Patient Time: Total time spent is greater than 50% in coordination of care (as documented) at patient's floor/unit and/or counseling patient: Time with patient: less than 15 minutes Progress Note: Quality Stroke Does the patient have a stroke diagnosis?: No Procedures Date of Service Date of Service: 06/21/21
[2021-06-21 12:22] LABS: PTT Heparin Drip 84.2 SEC (53-77.9)
--- NOTE | 2021-06-21 16:01 | P.PNIM_ITS ---
Subjective Subjective Date of Service: 06/21/21 Interval History: Nasal packing removed No further bleeding No chest pain No dyspnea Review of Systems Review of Systems: Yes all other systems are reviewed and are negative Physical Exam Vital Signs: Vital Signs: Last Vital Signs Temp 98.0 F 06/21/21 11:46 Pulse 72 06/21/21 11:46 Resp 18 06/21/21 11:46 BP 99/54 L 06/21/21 11:46 Pulse Ox 99 06/21/21 11:46 Body Mass Index 21.1 Gen: in no acute distress HEENT: sclera anicteric, moist mucus membranes Neck: supple Lungs: clear to auscultation bilaterally Heart: irregularly irregular, mechanical S1 Abd: soft, non-tender, non-distended Ext: no edema Skin: warm/well-perfused Neuro: alert and oriented x3, no focal findings Psych: appropriate affect Objective Data Current Medications Generic Name Dose Route Start Last Admin Trade Name Alejandroq PRN Reason Stop Dose Admin Acetaminophen 650 mg 06/19/21 13:20 06/19/21 19:36 Acetaminophen 325 Mg Tablet PO 650 mg Q6H PRN Administration Pain, Mild (Pain Scale 1-3) Ascorbic Acid 500 mg 06/19/21 21:00 06/21/21 08:22 Ascorbic Acid 500 Mg Tablet PO 500 mg BID NADINE Administration Atorvastatin Calcium 40 mg 06/20/21 09:00 06/21/21 08:23 Atorvastatin Calcium 40 Mg Tablet PO 40 mg DAILY NADINE Administration Calcium Carbonate/Cholecalciferol 500 mg 06/20/21 09:00 06/21/21 08:22 Calcium + Vitamin D 250 Mg Tablet PO 500 mg DAILY NADINE Administration Carvedilol 25 mg 06/19/21 17:00 06/21/21 08:22 Carvedilol 25 Mg Tablet PO 25 mg BIDWM NADINE Administration Protocol Erythromycin 1 cm 06/20/21 09:00 06/21/21 08:23 Erythromycin Base 0.5% Oph Oin 1 Gm Tube EYE-BOTH 1 cm DAILY NADINE Administration Ferrous Sulfate 324 mg 06/19/21 21:00 06/21/21 08:22 Ferrous Sulfate 324 Mg Tablet. PO 324 mg BID NADINE Administration Fluoxetine HCl 20 mg 06/20/21 09:00 06/21/21 08:21 Fluoxetine Hcl 20 Mg Capsule PO 20 mg DAILY NADINE Administration Heparin Sodium (Porcine) 2,600 unit 06/20/21 18:00 06/21/21 00:07 Heparin Sodium,Porcine 5,000 Unit/Ml Vial 40 unit/kg (2600 unit) 2,600 unit IVPUSH Administration PROTOCOL BOLUS PRN 40 unit/kg - Heparin Protocol Protocol Heparin Sodium (Porcine) 5,200 unit 06/20/21 18:00 Heparin Sodium,Porcine 5,000 Unit/Ml Vial 80 unit/kg (5200 unit) IVPUSH PROTOCOL BOLUS PRN 80 unit/kg - Heparin Protocol Protocol Heparin Sodium/Sodium Chloride 25,000 unit in 250 mls @ 0 mls/hr 06/20/21 18:00 06/21/21 15:05 IVCONT 12 units/kg/hr .Q0M NADINE 7.78 mls/hr Titration Protocol Per Protocol Isosorbide Dinitrate 5 mg 06/19/21 21:00 06/21/21 08:22 Isosorbide Dinitrate 5 Mg Tablet PO 5 mg BID NADINE Administration Protocol Levothyroxine Sodium 25 mcg 06/20/21 06:00 06/21/21 05:34 Levothyroxine Sodium 25 Mcg Tablet PO 25 mcg DAILY@0600 NADINE Administration Levothyroxine Sodium 112 mcg 06/20/21 06:00 06/21/21 05:34 Levothyroxine Sodium 112 Mcg Tablet PO 112 mcg DAILY@0600 NADINE Administration Meclizine HCl 25 mg 06/19/21 13:23 Meclizine Hcl 25 Mg Tablet PO TID PRN dizziness Multivitamins/Minerals 1 tab 06/19/21 21:00 06/21/21 08:22 Vits A,C,E/Lutein/Minerals Tablet PO 1 tab BID NADINE Administration Omeprazole 20 mg 06/20/21 06:30 06/21/21 05:34 Omeprazole 20 Mg Capsule.Dr PO 20 mg DAILY@0630 NADINE Administration Ondansetron HCl 4 mg 06/19/21 13:20 Ondansetron Hcl 4 Mg/2 Ml Vial IVPUSH Q8H PRN Nausea and Vomiting Oxymetazoline HCl 2 spray 06/19/21 14:56 06/20/21 04:03 Oxymetazoline Hcl 0.05 % Nasal 15 Ml [place] NOSTRIL-B 06/22/21 14:56 2 spray BID PRN Administration Allergic Symptoms Pharmacy Consult 1 each 08/11/21 12:16 Consult Rx Perform Med Rec MISCELLANE ONCE PRN Consult order Potassium Chloride 20 meq 06/21/21 09:00 06/21/21 08:23 Potassium Chloride Er 20 Meq Tab.Er.Prt PO 20 meq Q48H NADINE Administration Senna 17.2 mg 06/19/21 13:23 Sennosides 8.6 Mg Tablet PO BEDTIME PRN Constipation Sodium Chloride 3 ml 06/19/21 16:00 06/21/21 08:23 0.9 % Sodium Chloride Flush 3 Ml Syringe IVFLUSH 3 ml QSHIFT [facility] Administration Trazodone HCl 50 mg 06/19/21 13:23 06/19/21 22:42 Trazodone Hcl 50 Mg Tablet PO 50 mg DAILY PRN Administration for insomnia Warfarin Sodium 1.25 mg 06/19/21 18:00 06/19/21 18:20 Warfarin Sodium 1.25 Mg Halftab PO 1.25 mg MOWEFR@1800 [facility] Administration Warfarin Sodium 5 mg 06/20/21 18:00 Warfarin Sodium 5 Mg Tablet PO SUTUTHSA@1800 [facility] Labs CBC & Chem 7: 06/21/21 06:09 06/21/21 06:09 Labs: Laboratory Results - last 24 hr 06/20/21 06/20/21 06/21/21 18:42 23:34 06:09 MCV 93.4 MCH 28.8 MCHC 30.8 L RDW 17.6 H Plt Count 151 L MPV 12.5 H Absolute Nucleated RBC 0.000 Nucleated RBC % (auto) 0.0 PT 18.5 H INR 1.6 H PTT (Heparin Protocol) 50.9 L D 74.0 D Anion Gap Estim Creat Clear Calc Estimated GFR Random Glucose Calcium 06/21/21 06/21/21 06/21/21 06:09 06:09 11:51 MCV 92.5 MCH 28.0 MCHC 30.3 L RDW 17.4 H Plt Count 146 L MPV 12.3 Absolute Nucleated RBC 0.000 Nucleated RBC % (auto) 0.0 PT INR PTT (Heparin Protocol) 84.2 H Anion Gap 19 Estim Creat Clear Calc 20.9 Estimated GFR 18 Random Glucose 88 Calcium 8.3 L Assessment and Plan (1) Acute on chronic kidney failure: Status: Resolved Assessment and Plan: hospital d#3 70yo F with HFrEF, ischemic CM s/p AICD placement, pHTN, CKD4, mitral valve stenosis s/p [facility] valve replacement, amyloidosis admitted for CHF exacerbation, epistaxis # acute/chronic HFrEF - will stop IV furosemide due to increased BUN/Cr, monitor closely, Cardiology following - continue carvedilol, isosorbide dinitrate # epistaxis, started 06/15 - s/p 2 [employer]ino Rockets, taken out yesterday - resumed warfarin and on heparin gtt - if epistaxis recurs, will need to transfer to [facility] [place] for [place] consultation # mechanical mitral valve - on heparin gtt - will resume warfarin today - monitor PT/INR, PTT - monitor for recurrence of epistaxis - stopped ASA- resume in future at some point # ALIZA/CKD4 - hold diuresis as above, avoid nephrotoxins, and monitor BMP # normocytic anemia/ACD - Hb stable - continue FeSO4 # hypothyroidism - continue LT4 # mood disorder - continue fluoxetine # VTE ppx - heparin/warfarin as above Quality Stroke Does the patient have a stroke diagnosis?: No VTE Prior VTE?: No VTE Risk Level:: Medical - moderate - high VTE Device Contraindication: Treatment Not Indicated VTE Drug Contraindication: N/A - Med Ordered
--- NOTE | 2021-06-21 16:08 | MHC.CM.PN ---
PT CALLED CM AND REQUESTED TO MEET. CM WENT TO PTS ROOM AND PT CALLED HER DAUGHTER, BRAD, ON SPEAKER PHONE. BRAD REPORTS THE PT IS GOING TO BE MOVING IN WITH HER AROUND AND SHE FEELS SHE NEEDS A HOSPITAL BED BECAUSE SHE GETS BED SORES AND HAS TO KEEP HER LEGS ELEVATED. CM INFORMED HER SHE WOULD NEED TO ADDRESS THIS WITH THE PTS PCP. CM SPOKE TO JAMAL AT [facility] WHO REPORTED THE HOSPITAL WOULD NOT BE ABLE TO SEND A REQUEST FOR A HOSPITAL BED AT THIS TIME. HOWEVER WHEN PT IS CLOSER TO MAKING THE MOVE TO HER DAUGHTERS HOME, THEY SHOULD CONTACT THE PTS [facility] PROGRAM DIRECTOR/MUSIC DIRECTOR WHO WILL ASSIST. INFO WILL BE RELAYED TO PT/DAUGHTER
[2021-06-21] MEDS: Heparin Sodium,Porcine/1/2NS 25,000 UNIT/250 ML IV.SOLN 7.78 UNIT IVCONT (18:02)
[2021-06-21] MEDS: Warfarin Sodium 1.25 MG HALFTAB PO (18:02)
[2021-06-21 21:09] LABS: PTT Heparin Drip 64.2 SEC (53-77.9)
[2021-06-21] MEDS: Lactated Ringers 1,000 ML 999 ML IV (21:39)
[2021-06-21 22:13] LABS: Lactic Acid 0.5 mmol/L (0.5-2.0)
--- NOTE | 2021-06-21 23:00 | PC.NURSE ---
Addendum entered by Hoa Mena RN 06/21/21 23:01: 2230 bp has come up to 110/62 manual left arm. Original Note: at 2130 pt bp manual left arm 82/52. notified, 1L LR bolus ordered, lactic acid ordered as well.
--- NOTE | 2021-06-21 23:09 | PC.NURSE ---
PTT/hd at 2100 was 64.2. No change in rate. Continues to run at 12 units/kg/hr. Redraw ordered for 0330 on 06/22/21
[2021-06-22] VITALS (8 sets, daily range): BP systolic 90–120; BP diastolic 50–60; PULSE 73–84; RESP 18–20; TEMP 36–36.7; O2SAT 94–98
[2021-06-22 03:52] LABS: INTERNATIONAL NORM RATIO 1.5 (0.9-1.1); Prothrombin Time 16.7 SEC (9.9-13.0)
[2021-06-22 03:54] LABS: PTT Heparin Drip 66.1 SEC (53-77.9)
[2021-06-22 04:05] LABS: B Type Natriuretic Peptide 386 pg/mL (<100)
[2021-06-22 04:19] LABS: Anion Gap 14 (12-20); Blood Urea Nitrogen 90 mg/dL (9-16); Calcium 8.2 mg/dL (8.4-10.2); Carbon Dioxide 25 mmol/L (22-29); Chloride 105 mmol/L (96-108); Creatinine Clr Calc Pharmacy 21.9; Estimated Glomerular Filt Rate 19; Glucose Random 91 mg/dL (60-115); Potassium 5.3 mmol/L (3.3-5.1); Sodium 139 mmol/L (135-145)
[2021-06-22] MEDS: Omeprazole 20 MG CAPSULE.DR PO (05:35)
[2021-06-22] MEDS: Levothyroxine Sodium 112 MCG TABLET PO (05:35)
[2021-06-22] MEDS: Levothyroxine Sodium 25 MCG TABLET PO (05:35)
[2021-06-22] MEDS: Ferrous Sulfate 324 MG TABLET.DR PO ×2 (10:07→20:33)
[2021-06-22] MEDS: Sodium Polystyrene Sulfon/Sorb 15 GM/60 ML ORAL.SUSP 30 GM PO (10:07)
[2021-06-22] MEDS: carvediloL 25 MG TABLET PO ×2 (10:07→17:56)
[2021-06-22] MEDS: Ascorbic Acid 500 MG TABLET PO ×2 (10:08→20:33)
[2021-06-22] MEDS: Calcium + Vitamin D 250 MG TABLET 500 MG PO (10:08)
[2021-06-22] MEDS: Erythromycin Base 0.5% Oph Oin 1 GM TUBE 1 CM EYE-BOTH (10:09)
[2021-06-22] MEDS: Atorvastatin Calcium 40 MG TABLET PO (10:09)
[2021-06-22] MEDS: 0.9 % Sodium Chloride Flush 3 ML SYRINGE IVFLUSH ×2 (10:09→15:25)
[2021-06-22] MEDS: FLUoxetine HCl 20 MG CAPSULE PO (10:09)
--- NOTE | 2021-06-22 10:23 | P.PNCA_ITS ---
Subjective Subjective Date of Service: 06/22/21 Interval history: Slight blood from nose and when she cleared her throat, but not sure if that is old blood. Nothing fresh or profound. Review of Systems Review of Systems Yes all other systems are reviewed and are negative Cardiovascular: Reports as per HPI, Reports no additional cardiovascular complaints, Denies acrocyanosis, Denies cool extremities, Denies painful fingertips, Denies chest pain, Denies chest pain at rest, Denies diaphoresis, Denies syncope, Denies irregular heart rhythm, Denies claudication, Denies leg edema, Denies lightheadedness, Denies palpitations and Denies dyspnea Respiratory: Denies dyspnea Denies syncope Endocrine: Denies palpitations Physical Exam Vital Signs: Last Vital Signs Temp 96.8 F 06/22/21 07:40 Pulse 82 06/22/21 10:07 Resp 18 06/22/21 07:40 BP 100/50 L 06/22/21 10:13 Pulse Ox 97 06/22/21 07:40 Body Mass Index 21.1 Const General: cooperative and no acute distress [facility] Other: Unremarkable Neck Neck: Yes normal visual inspection Chest Chest palpation & inspection: normal inspection of the chest Resp Auscultation: clear to auscultation bilaterally, no crackles and no wheezes Cardio Other: Normal prosthetic heart sounds Jugular venous distension: no JVD Palpation: normal PMI GI Palpation (GI): Soft to palpation Back/Spine/Pelvis Other: unremarkable Skin General skin exam: no rashes or lesions noted Neuro Cranial nerves: Yes Other cranial nerve findings present Extrem General: Yes no clubbing, cyanosis or edema Psych Mental Status: other Results Labs and Meds Result diagrams: 06/21/21 06:09 06/22/21 03:28 Lab results: Laboratory Results - last 24 hr 06/21/21 06/21/21 06/21/21 11:51 20:49 21:46 PT INR PTT (Heparin Protocol) 84.2 H 64.2 D Sodium Potassium Chloride Carbon Dioxide Anion Gap BUN Creatinine Estim Creat Clear Calc Estimated GFR Random Glucose Lactic Acid 0.5 Calcium B-Natriuretic Peptide 06/22/21 06/22/21 06/22/21 03:28 03:28 03:28 PT 16.7 H INR 1.5 H PTT (Heparin Protocol) 66.1 Sodium 139 Potassium 5.3 H Chloride 105 Carbon Dioxide 25 Anion Gap 14 BUN 90 H* Creatinine 2.47 H Estim Creat Clear Calc 21.9 Estimated GFR 19 Random Glucose 91 Lactic Acid Calcium 8.2 L B-Natriuretic Peptide 386 H Progress Note: A&P Assessment and plan (1) Epistaxis: Status: Acute (2) H/O mitral valve replacement: Status: Acute (3) Acute on chronic heart failure with preserved ejection fraction: Status: Acute Assessment and Plan: Bridge IV heparin to warfarin. INR is still low at 1.5. He Aspirin to be re- initiated at some point. Otherwise, may need ENT to see her for definitive therapy for epistaxis. No clinical heart failure at this time and due to elevated BUN/Cr, diuretics on hold. Discussed with . Fall Risk Details Current Medications: Current Medications Generic Name Dose Route Start Last Admin Trade Name Freq PRN Reason Stop Dose Admin Acetaminophen 650 mg 06/19/21 13:20 06/19/21 19:36 Acetaminophen 325 Mg Tablet PO 650 mg Q6H PRN Administration Pain, Mild (Pain Scale 1-3) Ascorbic Acid 500 mg 06/19/21 21:00 06/22/21 10:08 Ascorbic Acid 500 Mg Tablet PO 500 mg BID NADINE Administration Atorvastatin Calcium 40 mg 06/20/21 09:00 06/22/21 10:09 Atorvastatin Calcium 40 Mg Tablet PO 40 mg DAILY NADINE Administration Calcium Carbonate/Cholecalciferol 500 mg 06/20/21 09:00 06/22/21 10:08 Calcium + Vitamin D 250 Mg Tablet PO 500 mg DAILY NADINE Administration Carvedilol 25 mg 06/19/21 17:00 06/22/21 10:07 Carvedilol 25 Mg Tablet PO 25 mg BIDWM NADINE Administration Protocol Erythromycin 1 cm 06/20/21 09:00 06/22/21 10:09 Erythromycin Base 0.5% Oph Oin 1 Gm Tube EYE-BOTH 1 cm DAILY NADINE Administration Ferrous Sulfate 324 mg 06/19/21 21:00 06/22/21 10:07 Ferrous Sulfate 324 Mg Tablet. PO 324 mg BID NADINE Administration Fluoxetine HCl 20 mg 06/20/21 09:00 06/22/21 10:09 Fluoxetine Hcl 20 Mg Capsule PO 20 mg DAILY NADINE Administration Heparin Sodium (Porcine) 2,600 unit 06/20/21 18:00 06/21/21 00:07 Heparin Sodium,Porcine 5,000 Unit/Ml Vial 40 unit/kg (2600 unit) 2,600 unit IVPUSH Administration PROTOCOL BOLUS PRN 40 unit/kg - Heparin Protocol Protocol Heparin Sodium (Porcine) 5,200 unit 06/20/21 18:00 Heparin Sodium,Porcine 5,000 Unit/Ml Vial 80 unit/kg (5200 unit) IVPUSH PROTOCOL BOLUS PRN 80 unit/kg - Heparin Protocol Protocol Heparin Sodium/Sodium Chloride 25,000 unit in 250 mls @ 0 mls/hr 06/20/21 18:00 06/22/21 04:39 IVCONT 12 units/kg/hr .Q0M NADINE 7.78 mls/hr Titration Protocol Per Protocol Isosorbide Dinitrate 5 mg 06/19/21 21:00 06/22/21 10:13 Isosorbide Dinitrate 5 Mg Tablet PO Not Given BID [facility] Protocol Levothyroxine Sodium 25 mcg 06/20/21 06:00 06/22/21 05:35 Levothyroxine Sodium 25 Mcg Tablet PO 25 mcg DAILY@0600 NADINE Administration Levothyroxine Sodium 112 mcg 06/20/21 06:00 06/22/21 05:35 Levothyroxine Sodium 112 Mcg Tablet PO 112 mcg DAILY@0600 NADINE Administration Meclizine HCl 25 mg 06/19/21 13:23 Meclizine Hcl 25 Mg Tablet PO TID PRN dizziness Multivitamins/Minerals 1 tab 06/19/21 21:00 06/22/21 10:07 Vits A,C,E/Lutein/Minerals Tablet PO 1 tab BID NADINE Administration Omeprazole 20 mg 06/20/21 06:30 06/22/21 05:35 Omeprazole 20 Mg Capsule.Dr PO 20 mg DAILY@0630 NADINE Administration Ondansetron HCl 4 mg 06/19/21 13:20 Ondansetron Hcl 4 Mg/2 Ml Vial IVPUSH Q8H PRN Nausea and Vomiting Oxymetazoline HCl 2 spray 06/19/21 14:56 06/20/21 04:03 Oxymetazoline Hcl 0.05 % Nasal 15 Ml [place] NOSTRIL-B 06/22/21 14:56 2 spray BID PRN Administration Allergic Symptoms Pharmacy Consult 1 each 06/19/21 12:16 Consult Rx Perform Med Rec MISCELLANE ONCE PRN Consult order Senna 17.2 mg 06/19/21 13:23 Sennosides 8.6 Mg Tablet PO BEDTIME PRN Constipation Sodium Chloride 3 ml 06/19/21 16:00 06/22/21 10:09 0.9 % Sodium Chloride Flush 3 Ml Syringe IVFLUSH 3 ml QSHIFT [facility] Administration Trazodone HCl 50 mg 06/19/21 13:23 06/19/21 22:42 Trazodone Hcl 50 Mg Tablet PO 50 mg DAILY PRN Administration for insomnia Warfarin Sodium 1.25 mg 06/19/21 18:00 06/21/21 18:02 Warfarin Sodium 1.25 Mg Halftab PO 1.25 mg MOWEFR@1800 [facility] Administration Warfarin Sodium 5 mg 06/20/21 18:00 Warfarin Sodium 5 Mg Tablet PO SUTUTHSA@1800 NADINE Time Spent With Patient Time: Total time spent is greater than 50% in coordination of care (as documented) at patient's floor/unit and/or counseling patient: Time with patient: less than 15 minutes Progress Note: Quality Stroke Does the patient have a stroke diagnosis?: No Procedures Date of Service Date of Service: 06/22/21
--- NOTE | 2021-06-22 14:07 | HO.PM.IMPN ---
Subjective Subjective Date of Service: 06/22/21 Interval History: Coughed up an old blood clot from her nose but no active bleeding No dyspnea No chest pain Review of Systems Review of Systems: Yes all other systems are reviewed and are negative Physical Exam Vital Signs: Vital Signs: Last Vital Signs Temp 97.5 F 06/22/21 11:34 Pulse 84 06/22/21 11:34 Resp 20 06/22/21 11:34 BP 112/60 06/22/21 11:34 Pulse Ox 98 06/22/21 11:34 Body Mass Index 21.1 Gen: in no acute distress HEENT: sclera anicteric, moist mucus membranes Neck: supple Lungs: clear to auscultation bilaterally Heart: irregularly irregular, mechanical S1 Abd: soft, non-tender, non-distended Ext: no edema Skin: warm/well-perfused Neuro: alert and oriented x3, no focal findings Psych: appropriate affect Objective Data Current Medications Generic Name Dose Route Start Last Admin Trade Name Freq PRN Reason Stop Dose Admin Acetaminophen 650 mg 06/19/21 13:20 06/19/21 19:36 Acetaminophen 325 Mg Tablet PO 650 mg Q6H PRN Administration Pain, Mild (Pain Scale 1-3) Ascorbic Acid 500 mg 06/19/21 21:00 06/22/21 10:08 Ascorbic Acid 500 Mg Tablet PO 500 mg BID NADINE Administration Atorvastatin Calcium 40 mg 06/20/21 09:00 06/22/21 10:09 Atorvastatin Calcium 40 Mg Tablet PO 40 mg DAILY NADINE Administration Calcium Carbonate/Cholecalciferol 500 mg 06/20/21 09:00 06/22/21 10:08 Calcium + Vitamin D 250 Mg Tablet PO 500 mg DAILY NADINE Administration Carvedilol 25 mg 06/19/21 17:00 06/22/21 10:07 Carvedilol 25 Mg Tablet PO 25 mg BIDWM NADINE Administration Protocol Erythromycin 1 cm 06/20/21 09:00 06/22/21 10:09 Erythromycin Base 0.5% Oph Oin 1 Gm Tube EYE-BOTH 1 cm DAILY NADINE Administration Ferrous Sulfate 324 mg 06/19/21 21:00 06/22/21 10:07 Ferrous Sulfate 324 Mg Tablet. PO 324 mg BID NADINE Administration Fluoxetine HCl 20 mg 06/20/21 09:00 06/22/21 10:09 Fluoxetine Hcl 20 Mg Capsule PO 20 mg DAILY NADINE Administration Heparin Sodium (Porcine) 2,600 unit 06/20/21 18:00 06/21/21 00:07 Heparin Sodium,Porcine 5,000 Unit/Ml Vial 40 unit/kg (2600 unit) 2,600 unit IVPUSH Administration PROTOCOL BOLUS PRN 40 unit/kg - Heparin Protocol Protocol Heparin Sodium (Porcine) 5,200 unit 06/20/21 18:00 Heparin Sodium,Porcine 5,000 Unit/Ml Vial 80 unit/kg (5200 unit) IVPUSH PROTOCOL BOLUS PRN 80 unit/kg - Heparin Protocol Protocol Heparin Sodium/Sodium Chloride 25,000 unit in 250 mls @ 0 mls/hr 06/20/21 18:00 06/22/21 04:39 IVCONT 12 units/kg/hr .Q0M NADINE 7.78 mls/hr Titration Protocol Per Protocol Isosorbide Dinitrate 5 mg 06/19/21 21:00 06/22/21 10:13 Isosorbide Dinitrate 5 Mg Tablet PO Not Given BID [facility] Protocol Levothyroxine Sodium 25 mcg 06/20/21 06:00 06/22/21 05:35 Levothyroxine Sodium 25 Mcg Tablet PO 25 mcg DAILY@0600 NADINE Administration Levothyroxine Sodium 112 mcg 06/20/21 06:00 06/22/21 05:35 Levothyroxine Sodium 112 Mcg Tablet PO 112 mcg DAILY@0600 NADINE Administration Meclizine HCl 25 mg 06/19/21 13:23 Meclizine Hcl 25 Mg Tablet PO TID PRN dizziness Multivitamins/Minerals 1 tab 06/19/21 21:00 06/22/21 10:07 Vits A,C,E/Lutein/Minerals Tablet PO 1 tab BID NADINE Administration Omeprazole 20 mg 06/20/21 06:30 06/22/21 05:35 Omeprazole 20 Mg Capsule.Dr PO 20 mg DAILY@0630 NADINE Administration Ondansetron HCl 4 mg 06/19/21 13:20 Ondansetron Hcl 4 Mg/2 Ml Vial IVPUSH Q8H PRN Nausea and Vomiting Oxymetazoline HCl 2 spray 06/19/21 14:56 06/20/21 04:03 Oxymetazoline Hcl 0.05 % Nasal 15 [facility] NOSTRIL-B 06/22/21 14:56 2 spray BID PRN Administration Allergic Symptoms Pharmacy Consult 1 each 06/19/21 12:16 Consult Rx Perform Med Rec MISCELLANE ONCE PRN Consult order Senna 17.2 mg 06/19/21 13:23 Sennosides 8.6 Mg Tablet PO BEDTIME PRN Constipation Sodium Chloride 3 ml 06/19/21 16:00 06/22/21 10:09 0.9 % Sodium Chloride Flush 3 Ml Syringe IVFLUSH 3 ml QSHIFT [facility] Administration Trazodone HCl 50 mg 06/19/21 13:23 06/19/21 22:42 Trazodone Hcl 50 Mg Tablet PO 50 mg DAILY PRN Administration for insomnia Warfarin Sodium 1.25 mg 06/19/21 18:00 06/21/21 18:02 Warfarin Sodium 1.25 Mg Halftab PO 1.25 mg MOWEFR@1800 [facility] Administration Warfarin Sodium 5 mg 06/20/21 18:00 Warfarin Sodium 5 Mg Tablet PO SUTUTHSA@1800 [facility] Labs CBC & Chem 7: 06/21/21 06:09 06/22/21 03:28 Labs: Laboratory Results - last 24 hr 06/21/21 06/21/21 06/22/21 20:49 21:46 03:28 PT 16.7 H INR 1.5 H PTT (Heparin Protocol) 64.2 D 66.1 Anion Gap Estim Creat Clear Calc Estimated GFR Random Glucose Lactic Acid 0.5 Calcium B-Natriuretic Peptide 06/22/21 06/22/21 03:28 03:28 PT INR PTT (Heparin Protocol) Anion Gap 14 Estim Creat Clear Calc 21.9 Estimated GFR 19 Random Glucose 91 Lactic Acid Calcium 8.2 L B-Natriuretic Peptide 386 H Assessment and Plan (1) Acute on chronic kidney failure: Status: Resolved Assessment and Plan: hospital d#4 70yo F with HFrEF, ischemic CM s/p AICD placement, pHTN, CKD4, mitral valve stenosis s/p [facility] valve replacement, amyloidosis admitted for CHF exacerbation, epistaxis # acute/chronic HFrEF - stopped IV furosemide 06/21/21 due to increased BUN/Cr which have improved slightly; monitor closely; Cardiology following - continue carvedilol, isosorbide dinitrate # epistaxis, started 06/15 - s/p 2 Rhino Rockets, taken out 06/20/21 - if epistaxis recurs, will need to transfer to [facility] [place] # mechanical mitral valve - on heparin gtt - resumed warfarin 06/21/21, goal INR 2.5-3.5 - once INR therapeutic, will need to start ASA as well - monitor PT/INR, PTT - monitor for recurrence of epistaxis # ALIZA/CKD4 - held diuresis as above, avoid nephrotoxins, and monitor BMP # normocytic anemia/ACD - Hb stable - continue FeSO4 # hypothyroidism - continue LT4 # mood disorder - continue fluoxetine # VTE ppx - heparin/warfarin as above Quality Stroke Does the patient have a stroke diagnosis?: No VTE Prior VTE?: No VTE Risk Level:: Medical - moderate - high VTE Device Contraindication: Treatment Not Indicated VTE Drug Contraindication: N/A - Med Ordered
[2021-06-22] MEDS: Heparin Sodium,Porcine/1/2NS 25,000 UNIT/250 ML IV.SOLN 7.78 UNIT IVCONT (17:53)
[2021-06-22] MEDS: Warfarin Sodium 5 MG TABLET PO (17:56)
[2021-06-22] MEDS: traZODone HCL 50 MG TABLET PO (20:53)
[2021-06-23] VITALS (8 sets, daily range): BP systolic 100–127; BP diastolic 54–72; PULSE 41–86; RESP 18–20; TEMP 36.1–37.2; O2SAT 93–100
[2021-06-23] MEDS: 0.9 % Sodium Chloride Flush 3 ML SYRINGE IVFLUSH ×3 (00:48→15:57)
[2021-06-23] MEDS: Omeprazole 20 MG CAPSULE.DR PO (05:35)
[2021-06-23] MEDS: Levothyroxine Sodium 25 MCG TABLET PO (05:36)
[2021-06-23] MEDS: Levothyroxine Sodium 112 MCG TABLET PO (05:36)
[2021-06-23 06:20] LABS: Hematocrit 27.7 % (37-47); Hemoglobin 8.5 g/dl (12.0-16.0); Mean Corpuscular HGB Conc 30.7 g/dl (31.0-35.0); Mean Corpuscular Hemoglobin 28.3 pg (27.0-33.0); Mean Corpuscular Volume 92.3 fL (80-98); Mean Platelet Volume 12.1 fL (9.4-12.3); Platelet Count 147 X10*3/uL (160-400); Red Cell Distribution Width 17.3 % (11.0-16.0); White Blood Count 7.6 X10*3/uL (4.8-10.8)
[2021-06-23 06:32] LABS: INTERNATIONAL NORM RATIO 1.4 (0.9-1.1); Prothrombin Time 15.7 SEC (9.9-13.0)
[2021-06-23 06:34] LABS: PTT Heparin Drip 76.2 SEC (53-77.9)
[2021-06-23 06:54] LABS: Anion Gap 13 (12-20); Blood Urea Nitrogen 69 mg/dL (9-16); Carbon Dioxide 26 mmol/L (22-29); Chloride 106 mmol/L (96-108); Creatinine Clr Calc Pharmacy 26.4; Estimated Glomerular Filt Rate 24; Glucose Random 91 mg/dL (60-115); Potassium 4.3 mmol/L (3.3-5.1); Sodium 141 mmol/L (135-145)
[2021-06-23] MEDS: Ascorbic Acid 500 MG TABLET PO ×2 (08:49→20:58)
[2021-06-23] MEDS: Calcium + Vitamin D 250 MG TABLET 500 MG PO (08:49)
[2021-06-23] MEDS: Ferrous Sulfate 324 MG TABLET.DR PO ×2 (08:49→20:58)
[2021-06-23] MEDS: Isosorbide Dinitrate 5 MG TABLET PO ×2 (08:49→20:57)
[2021-06-23] MEDS: Atorvastatin Calcium 40 MG TABLET PO (08:49)
[2021-06-23] MEDS: carvediloL 25 MG TABLET PO ×2 (08:49→17:43)
[2021-06-23] MEDS: FLUoxetine HCl 20 MG CAPSULE PO (08:49)
[2021-06-23] MEDS: Erythromycin Base 0.5% Oph Oin 1 GM TUBE 1 CM EYE-BOTH (08:49)
--- NOTE | 2021-06-23 09:15 | P.PNIM_ITS ---
Subjective Subjective Date of Service: 06/23/21 Interval History: F/u epistaxis, no further bleed, H/H stable on heparin, INR down to 1.4 Review of Systems Gen: no fever Resp: no sob, no cough CV: no chest, no VALENCIA, no leg edema GI: No n/v, no abd pain Neuro: No confusion, anxious Physical Exam Vital Signs: Vital Signs: Last Vital Signs Temp 97.9 F 06/23/21 08:00 Pulse 86 06/23/21 08:49 Resp 19 06/23/21 08:00 BP 127/72 06/23/21 08:49 Pulse Ox 97 06/23/21 08:00 Body Mass Index 21.1 Gen: in no acute distress HEENT: sclera anicteric, moist mucus membranes Neck: supple Lungs: clear to auscultation bilaterally Heart: irregularly irregular, mechanical S1 Abd: soft, non-tender, non-distended Ext: no edema Skin: warm/well-perfused Neuro: alert and oriented x3, no focal findings Psych: appropriate affect Objective Data Current Medications Generic Name Dose Route Start Last Admin Trade Name Alejandroq PRN Reason Stop Dose Admin Acetaminophen 650 mg 06/19/21 13:20 06/19/21 19:36 Acetaminophen 325 Mg Tablet PO 650 mg Q6H PRN Administration Pain, Mild (Pain Scale 1-3) Ascorbic Acid 500 mg 06/19/21 21:00 06/23/21 08:49 Ascorbic Acid 500 Mg Tablet PO 500 mg BID NADINE Administration Atorvastatin Calcium 40 mg 06/20/21 09:00 06/23/21 08:49 Atorvastatin Calcium 40 Mg Tablet PO 40 mg DAILY NADINE Administration Calcium Carbonate/Cholecalciferol 500 mg 06/20/21 09:00 06/23/21 08:49 Calcium + Vitamin D 250 Mg Tablet PO 500 mg DAILY NADINE Administration Carvedilol 25 mg 06/19/21 17:00 06/23/21 08:49 Carvedilol 25 Mg Tablet PO 25 mg BIDWM NADINE Administration Protocol Erythromycin 1 cm 06/20/21 09:00 06/23/21 08:49 Erythromycin Base 0.5% Oph Oin 1 Gm Tube EYE-BOTH 1 cm DAILY NADINE Administration Ferrous Sulfate 324 mg 06/19/21 21:00 06/23/21 08:49 Ferrous Sulfate 324 Mg Tablet. PO 324 mg BID NADINE Administration Fluoxetine HCl 20 mg 06/20/21 09:00 06/23/21 08:49 Fluoxetine Hcl 20 Mg Capsule PO 20 mg DAILY NADINE Administration Heparin Sodium (Porcine) 2,600 unit 06/20/21 18:00 06/21/21 00:07 Heparin Sodium,Porcine 5,000 Unit/Ml Vial 40 unit/kg (2600 unit) 2,600 unit IVPUSH Administration PROTOCOL BOLUS PRN 40 unit/kg - Heparin Protocol Protocol Heparin Sodium (Porcine) 5,200 unit 06/20/21 18:00 Heparin Sodium,Porcine 5,000 Unit/Ml Vial 80 unit/kg (5200 unit) IVPUSH PROTOCOL BOLUS PRN 80 unit/kg - Heparin Protocol Protocol Heparin Sodium/Sodium Chloride 25,000 unit in 250 mls @ 0 mls/hr 06/20/21 18:00 06/22/21 17:53 IVCONT 12 units/kg/hr .Q0M NADINE 7.78 mls/hr Administration Protocol Per Protocol Isosorbide Dinitrate 5 mg 06/19/21 21:00 06/23/21 08:49 Isosorbide Dinitrate 5 Mg Tablet PO 5 mg BID NADINE Administration Protocol Levothyroxine Sodium 25 mcg 06/20/21 06:00 06/23/21 05:36 Levothyroxine Sodium 25 Mcg Tablet PO 25 mcg DAILY@0600 NADINE Administration Levothyroxine Sodium 112 mcg 06/20/21 06:00 06/23/21 05:36 Levothyroxine Sodium 112 Mcg Tablet PO 112 mcg DAILY@0600 NADINE Administration Meclizine HCl 25 mg 06/19/21 13:23 Meclizine Hcl 25 Mg Tablet PO TID PRN dizziness Multivitamins/Minerals 1 tab 06/19/21 21:00 06/23/21 08:49 Vits A,C,E/Lutein/Minerals Tablet PO 1 tab BID NADINE Administration Omeprazole 20 mg 06/20/21 06:30 06/23/21 05:35 Omeprazole 20 Mg Capsule. PO 20 mg DAILY@0630 NADINE Administration Ondansetron HCl 4 mg 06/19/21 13:20 Ondansetron Hcl 4 Mg/2 Ml Vial IVPUSH Q8H PRN Nausea and Vomiting Pharmacy Consult 1 each 06/19/21 12:16 Consult Rx Perform Med Rec MISCELLANE ONCE PRN Consult order Senna 17.2 mg 06/19/21 13:23 Sennosides 8.6 Mg Tablet PO BEDTIME PRN Constipation Sodium Chloride 3 ml 06/19/21 16:00 06/23/21 08:50 0.9 % Sodium Chloride Flush 3 Ml Syringe IVFLUSH 3 ml QSHIFT NADINE Administration Trazodone HCl 50 mg 06/19/21 13:23 06/22/21 20:53 Trazodone Hcl 50 Mg Tablet PO 50 mg DAILY PRN Administration for insomnia Warfarin Sodium 1.25 mg 06/19/21 18:00 06/21/21 18:02 Warfarin Sodium 1.25 Mg Halftab PO 1.25 mg MOWEFR@1800 [facility] Administration Warfarin Sodium 5 mg 06/20/21 18:00 06/22/21 17:56 Warfarin Sodium 5 Mg Tablet PO 5 mg SUTUTHSA@1800 [facility] Administration Labs CBC & Chem 7: 06/23/21 06:06 06/23/21 06:06 Labs: Laboratory Results - last 24 hr 06/23/21 06/23/21 06/23/21 06:06 06:06 06:06 MCV 92.3 MCH 28.3 MCHC 30.7 L RDW 17.3 H Plt Count 147 L MPV 12.1 Absolute Nucleated RBC 0.000 Nucleated RBC % (auto) 0.0 PT 15.7 H INR 1.4 H PTT (Heparin Protocol) 76.2 Anion Gap 13 Estim Creat Clear Calc 26.4 Estimated GFR 24 Random Glucose 91 Calcium 8.0 L Assessment and Plan (1) Acute on chronic kidney failure: Status: Resolved Assessment and Plan: hospital d#5 70yo F with HFrEF, ischemic CM s/p AICD placement, pHTN, CKD4, mitral valve stenosis s/p [facility] valve replacement, amyloidosis admitted for CHF exacerbation, epistaxis # acute/chronic HFrEF - stopped IV furosemide 06/21/21 due to increased BUN/Cr which have improved sl ightly; monitor closely; Cardiology following - continue carvedilol, isosorbide dinitrate # epistaxis, started 06/15 - s/p 2 Rhino Rockets, taken out 06/20/21, no further - if epistaxis recurs, will need to transfer to [facility] [place] [place] for ENT consultation # mechanical mitral valve - on heparin gtt - resumed warfarin 06/21/21, goal INR 2.5-3.5, 1.4 today - once INR therapeutic, will need to start ASA as well - monitor PT/INR, PTT - monitor for recurrence of epistaxis # ALIZA/CKD4 - held diuresis as above, avoid nephrotoxins, and monitor BMP # normocytic anemia/ACD - Hb stable - continue FeSO4 # hypothyroidism - continue LT4 # mood disorder - continue fluoxetine # VTE ppx - heparin/warfarin as above Quality Stroke Does the patient have a stroke diagnosis?: No VTE Prior VTE?: No VTE Risk Level:: Medical - moderate - high VTE Device Contraindication: Treatment Not Indicated VTE Drug Contraindication: N/A - Med Ordered
--- NOTE | 2021-06-23 12:20 | P.PNCA_ITS ---
Subjective Subjective Date of Service: 06/23/21 Interval history: Feels OK. No further nose bleeds. Denies shortness of breath. Review of Systems Review of Systems Yes all other systems are reviewed and are negative Cardiovascular: Reports as per HPI, Reports no additional cardiovascular complaints, Denies acrocyanosis, Denies cool extremities, Denies painful fingertips, Denies chest pain, Denies chest pain at rest, Denies diaphoresis, Denies syncope, Denies irregular heart rhythm, Denies claudication, Denies leg edema, Denies lightheadedness, Denies palpitations and Denies dyspnea Respiratory: Denies dyspnea Denies syncope Endocrine: Denies palpitations Physical Exam Vital Signs: Last Vital Signs Temp 97.9 F 06/23/21 08:00 Pulse 86 06/23/21 08:49 Resp 19 06/23/21 08:00 BP 127/72 06/23/21 08:49 Pulse Ox 97 06/23/21 08:00 Body Mass Index 21.1 Const General: cooperative and no acute distress HENPA Other: Unremarkable Neck Neck: Yes normal visual inspection Chest Chest palpation & inspection: normal inspection of the chest Resp Auscultation: clear to auscultation bilaterally, no crackles and no wheezes Cardio Other: Normal prosthetic heart sounds Jugular venous distension: no JVD Palpation: normal PMI GI Palpation (GI): Soft to palpation Back/Spine/Pelvis Other: unremarkable Skin General skin exam: no rashes or lesions noted Neuro Cranial nerves: Yes Other cranial nerve findings present Extrem General: Yes no clubbing, cyanosis or edema Psych Mental Status: other Results Labs and Meds Result diagrams: 06/23/21 06:06 06/23/21 06:06 Lab results: Laboratory Results - last 24 hr 06/23/21 06/23/21 06/23/21 06:06 06:06 06:06 WBC 7.6 RBC 3.00 L Hgb 8.5 L Hct 27.7 L MCV 92.3 MCH 28.3 MCHC 30.7 L RDW 17.3 H Plt Count 147 L MPV 12.1 Absolute Nucleated RBC 0.000 Nucleated RBC % (auto) 0.0 PT 15.7 H INR 1.4 H PTT (Heparin Protocol) 76.2 Sodium 141 Potassium 4.3 Chloride 106 Carbon Dioxide 26 Anion Gap 13 BUN 69 H Creatinine 2.06 H Estim Creat Clear Calc 26.4 Estimated GFR 24 Random Glucose 91 Calcium 8.0 L Progress Note: A&P Assessment and plan (1) Epistaxis: Status: Acute (2) H/O mitral valve replacement: Status: Acute (3) Acute on chronic heart failure with preserved ejection fraction: Status: Acute Assessment and Plan: Bridging IV heparin to warfarin. INR is still low at 1.4. Aspirin to be re- initiated at some point. If recurrent bleeds, then will need ENT assessment. No clinical heart failure at this time and due to elevated BUN/Cr, diuretics on hold. Fall Risk Details Current Medications: Current Medications Generic Name Dose Route Start Last Admin Trade Name Freq PRN Reason Stop Dose Admin Acetaminophen 650 mg 06/19/21 13:20 06/19/21 19:36 Acetaminophen 325 Mg Tablet PO 650 mg Q6H PRN Administration Pain, Mild (Pain Scale 1-3) Ascorbic Acid 500 mg 06/19/21 21:00 06/23/21 08:49 Ascorbic Acid 500 Mg Tablet PO 500 mg BID NADINE Administration Atorvastatin Calcium 40 mg 06/20/21 09:00 06/23/21 08:49 Atorvastatin Calcium 40 Mg Tablet PO 40 mg DAILY NADINE Administration Calcium Carbonate/Cholecalciferol 500 mg 06/20/21 09:00 06/23/21 08:49 Calcium + Vitamin D 250 Mg Tablet PO 500 mg DAILY NADINE Administration Carvedilol 25 mg 06/19/21 17:00 06/23/21 08:49 Carvedilol 25 Mg Tablet PO 25 mg BIDWM NADINE Administration Protocol Erythromycin 1 cm 06/20/21 09:00 06/23/21 08:49 Erythromycin Base 0.5% Oph Oin 1 Gm Tube EYE-BOTH 1 cm DAILY NADINE Administration Ferrous Sulfate 324 mg 06/19/21 21:00 06/23/21 08:49 Ferrous Sulfate 324 Mg Tablet. PO 324 mg BID NADINE Administration Fluoxetine HCl 20 mg 06/20/21 09:00 06/23/21 08:49 Fluoxetine Hcl 20 Mg Capsule PO 20 mg DAILY NADINE Administration Heparin Sodium (Porcine) 2,600 unit 06/20/21 18:00 06/21/21 00:07 Heparin Sodium,Porcine 5,000 Unit/Ml Vial 40 unit/kg (2600 unit) 2,600 unit IVPUSH Administration PROTOCOL BOLUS PRN 40 unit/kg - Heparin Protocol Protocol Heparin Sodium (Porcine) 5,200 unit 06/20/21 18:00 Heparin Sodium,Porcine 5,000 Unit/Ml Vial 80 unit/kg (5200 unit) IVPUSH PROTOCOL BOLUS PRN 80 unit/kg - Heparin Protocol Protocol Heparin Sodium/Sodium Chloride 25,000 unit in 250 mls @ 0 mls/hr 06/20/21 18:00 06/22/21 17:53 IVCONT 12 units/kg/hr .Q0M NADINE 7.78 mls/hr Administration Protocol Per Protocol Isosorbide Dinitrate 5 mg 06/19/21 21:00 06/23/21 08:49 Isosorbide Dinitrate 5 Mg Tablet PO 5 mg BID NADINE Administration Protocol Levothyroxine Sodium 25 mcg 06/20/21 06:00 06/23/21 05:36 Levothyroxine Sodium 25 Mcg Tablet PO 25 mcg DAILY@0600 NADINE Administration Levothyroxine Sodium 112 mcg 06/20/21 06:00 06/23/21 05:36 Levothyroxine Sodium 112 Mcg Tablet PO 112 mcg DAILY@0600 NADINE Administration Meclizine HCl 25 mg 06/19/21 13:23 Meclizine Hcl 25 Mg Tablet PO TID PRN dizziness Multivitamins/Minerals 1 tab 06/19/21 21:00 06/23/21 08:49 Vits A,C,E/Lutein/Minerals Tablet PO 1 tab BID NADINE Administration Omeprazole 20 mg 06/20/21 06:30 06/23/21 05:35 Omeprazole 20 Mg Capsule.Dr PO 20 mg DAILY@0630 [facility] Administration Ondansetron HCl 4 mg 06/19/21 13:20 Ondansetron Hcl 4 Mg/2 Ml Vial IVPUSH Q8H PRN Nausea and Vomiting Pharmacy Consult 1 each 06/19/21 12:16 Consult Rx Perform Med Rec MISCELLANE ONCE PRN Consult order Senna 17.2 mg 06/19/21 13:23 Sennosides 8.6 Mg Tablet PO BEDTIME PRN Constipation Sodium Chloride 3 ml 06/19/21 16:00 06/23/21 08:50 0.9 % Sodium Chloride Flush 3 Ml Syringe IVFLUSH 3 ml QSHIFT NADINE Administration Trazodone HCl 50 mg 06/19/21 13:23 06/22/21 20:53 Trazodone Hcl 50 Mg Tablet PO 50 mg DAILY PRN Administration for insomnia Warfarin Sodium 1.25 mg 06/19/21 18:00 06/21/21 18:02 Warfarin Sodium 1.25 Mg Halftab PO 1.25 mg MOWEFR@1800 NADINE Administration Warfarin Sodium 5 mg 06/20/21 18:00 06/22/21 17:56 Warfarin Sodium 5 Mg Tablet PO 5 mg SUTUTHSA@1800 NADINE Administration Time Spent With Patient Time: Total time spent is greater than 50% in coordination of care (as documented) at patient's floor/unit and/or counseling patient: Time with patient: less than 15 minutes Progress Note: Quality Stroke Does the patient have a stroke diagnosis?: No Procedures Date of Service Date of Service: 06/23/21
[2021-06-23] MEDS: Heparin Sodium,Porcine/1/2NS 25,000 UNIT/250 ML IV.SOLN 7.78 UNIT IVCONT (17:38)
[2021-06-23] MEDS: Warfarin Sodium 5 MG TABLET PO (17:43)
[2021-06-23] MEDS: Warfarin Sodium 2 MG TABLET PO (18:16)
[2021-06-24] VITALS (9 sets, daily range): BP systolic 94–124; BP diastolic 53–60; PULSE 77–99; RESP 17–20; TEMP 36.8–37.3; O2SAT 93–98
[2021-06-24] MEDS: Levothyroxine Sodium 112 MCG TABLET PO (05:31)
[2021-06-24] MEDS: Omeprazole 20 MG CAPSULE.DR PO (05:31)
[2021-06-24] MEDS: Levothyroxine Sodium 25 MCG TABLET PO (05:31)
[2021-06-24 06:12] LABS: INTERNATIONAL NORM RATIO 1.9 (0.9-1.1)
[2021-06-24 06:15] LABS: PTT Heparin Drip 86.2 SEC (53-77.9)
[2021-06-24 06:46] LABS: Anion Gap 13 (12-20); Blood Urea Nitrogen 64 mg/dL (9-16); Carbon Dioxide 26 mmol/L (22-29); Chloride 105 mmol/L (96-108); Creatinine Clr Calc Pharmacy 25.2; Estimated Glomerular Filt Rate 23; Glucose Random 95 mg/dL (60-115); Potassium 4.5 mmol/L (3.3-5.1); Sodium 139 mmol/L (135-145)
[2021-06-24] MEDS: Calcium + Vitamin D 250 MG TABLET 500 MG PO (08:55)
[2021-06-24] MEDS: Atorvastatin Calcium 40 MG TABLET PO (08:55)
[2021-06-24] MEDS: Ferrous Sulfate 324 MG TABLET.DR PO ×2 (08:55→22:02)
[2021-06-24] MEDS: Ascorbic Acid 500 MG TABLET PO ×2 (08:56→22:02)
[2021-06-24] MEDS: Isosorbide Dinitrate 5 MG TABLET PO ×2 (08:56→22:06)
[2021-06-24] MEDS: carvediloL 25 MG TABLET PO ×2 (08:56→15:54)
[2021-06-24] MEDS: FLUoxetine HCl 20 MG CAPSULE PO (08:57)
[2021-06-24] MEDS: 0.9 % Sodium Chloride Flush 3 ML SYRINGE IVFLUSH ×2 (08:57→15:58)
[2021-06-24] MEDS: Erythromycin Base 0.5% Oph Oin 1 GM TUBE 1 CM EYE-BOTH (08:57)
--- NOTE | 2021-06-24 09:42 | P.PNCA_ITS ---
Subjective Subjective Date of Service: 06/24/21 Interval history: No further bleeding from nose. Otherwise denies any other cardiac symptoms. Review of Systems Review of Systems Yes all other systems are reviewed and are negative Cardiovascular: Reports as per HPI, Reports no additional cardiovascular complaints, Denies acrocyanosis, Denies cool extremities, Denies painful fingertips, Denies chest pain, Denies chest pain at rest, Denies diaphoresis, Denies syncope, Denies irregular heart rhythm, Denies claudication, Denies leg edema, Denies lightheadedness, Denies palpitations and Denies dyspnea Respiratory: Denies dyspnea Denies syncope Endocrine: Denies palpitations Physical Exam Vital Signs: Last Vital Signs Temp 98.4 F 06/24/21 07:40 Pulse 83 06/24/21 08:56 Resp 17 06/24/21 07:40 BP 109/60 06/24/21 08:56 Pulse Ox 96 06/24/21 07:40 Body Mass Index 21.1 Const General: cooperative and no acute distress HENAR Other: Unremarkable Neck Neck: Yes normal visual inspection Chest Chest palpation & inspection: normal inspection of the chest Resp Auscultation: clear to auscultation bilaterally, no crackles and no wheezes Cardio Other: Normal prosthetic heart sounds Jugular venous distension: no JVD Palpation: normal PMI GI Palpation (GI): Soft to palpation Back/Spine/Pelvis Other: unremarkable Skin General skin exam: no rashes or lesions noted Neuro Cranial nerves: Yes Other cranial nerve findings present Extrem General: Yes no clubbing, cyanosis or edema Psych Mental Status: other Results Labs and Meds Result diagrams: 06/23/21 06:06 06/24/21 05:49 Lab results: Laboratory Results - last 24 hr 06/24/21 06/24/21 05:49 05:49 PT 22.0 H D INR 1.9 H PTT (Heparin Protocol) 86.2 H Sodium 139 Potassium 4.5 Chloride 105 Carbon Dioxide 26 Anion Gap 13 BUN 64 H Creatinine 2.16 H Estim Creat Clear Calc 25.2 Estimated GFR 23 Random Glucose 95 Calcium 8.0 L Progress Note: A&P Assessment and plan (1) Epistaxis: Status: Acute (2) H/O mitral valve replacement: Status: Acute (3) Acute on chronic heart failure with preserved ejection fraction: Status: Acute Assessment and Plan: Bridging IV heparin to warfarin. INR is still low at 1.9. Aspirin to be re- initiated at some point. If recurrent bleeds, then will need ENT assessment. No clinical heart failure at this time and due to elevated BUN/Cr, diuretics on hold. Fall Risk Details Current Medications: Current Medications Generic Name Dose Route Start Last Admin Trade Name Freq PRN Reason Stop Dose Admin Acetaminophen 650 mg 06/19/21 13:20 06/19/21 19:36 Acetaminophen 325 Mg Tablet PO 650 mg Q6H PRN Administration Pain, Mild (Pain Scale 1-3) Ascorbic Acid 500 mg 06/19/21 21:00 06/24/21 08:56 Ascorbic Acid 500 Mg Tablet PO 500 mg BID NADINE Administration Atorvastatin Calcium 40 mg 06/20/21 09:00 06/24/21 08:55 Atorvastatin Calcium 40 Mg Tablet PO 40 mg DAILY NADINE Administration Calcium Carbonate/Cholecalciferol 500 mg 06/20/21 09:00 06/24/21 08:55 Calcium + Vitamin D 250 Mg Tablet PO 500 mg DAILY NADINE Administration Carvedilol 25 mg 06/19/21 17:00 06/24/21 08:56 Carvedilol 25 Mg Tablet PO 25 mg BIDWM NADINE Administration Protocol Erythromycin 1 cm 06/20/21 09:00 06/24/21 08:57 Erythromycin Base 0.5% Oph Oin 1 Gm Tube EYE-BOTH 1 cm DAILY NADINE Administration Ferrous Sulfate 324 mg 06/19/21 21:00 06/24/21 08:55 Ferrous Sulfate 324 Mg Tablet. PO 324 mg BID NADINE Administration Fluoxetine HCl 20 mg 06/20/21 09:00 06/24/21 08:57 Fluoxetine Hcl 20 Mg Capsule PO 20 mg DAILY NADINE Administration Heparin Sodium (Porcine) 2,600 unit 06/20/21 18:00 06/21/21 00:07 Heparin Sodium,Porcine 5,000 Unit/Ml Vial 40 unit/kg (2600 unit) 2,600 unit IVPUSH Administration PROTOCOL BOLUS PRN 40 unit/kg - Heparin Protocol Protocol Heparin Sodium (Porcine) 5,200 unit 06/20/21 18:00 Heparin Sodium,Porcine 5,000 Unit/Ml Vial 80 unit/kg (5200 unit) IVPUSH PROTOCOL BOLUS PRN 80 unit/kg - Heparin Protocol Protocol Heparin Sodium/Sodium Chloride 25,000 unit in 250 mls @ 0 mls/hr 06/20/21 18:00 06/24/21 06:36 IVCONT 10 units/kg/hr .Q0M [facility] 6.49 mls/hr Titration Protocol Per Protocol Isosorbide Dinitrate 5 mg 06/19/21 21:00 06/24/21 08:56 Isosorbide Dinitrate 5 Mg Tablet PO 5 mg BID NADINE Administration Protocol Levothyroxine Sodium 25 mcg 06/20/21 06:00 06/24/21 05:31 Levothyroxine Sodium 25 Mcg Tablet PO 25 mcg DAILY@0600 [facility] Administration Levothyroxine Sodium 112 mcg 06/20/21 06:00 06/24/21 05:31 Levothyroxine Sodium 112 Mcg Tablet PO 112 mcg DAILY@0600 [facility] Administration Meclizine HCl 25 mg 06/19/21 13:23 Meclizine Hcl 25 Mg Tablet PO TID PRN dizziness Multivitamins/Minerals 1 tab 06/19/21 21:00 06/24/21 08:55 Vits A,C,E/Lutein/Minerals Tablet PO 1 tab BID [facility] Administration Omeprazole 20 mg 06/20/21 06:30 06/24/21 05:31 Omeprazole 20 Mg Capsule.Dr PO 20 mg DAILY@0630 [facility] Administration Ondansetron HCl 4 mg 06/19/21 13:20 Ondansetron Hcl 4 Mg/2 Ml Vial IVPUSH Q8H PRN Nausea and Vomiting Pharmacy Consult 1 each 06/19/21 12:16 Consult Rx Perform Med Rec MISCELLANE ONCE PRN Consult order Senna 17.2 mg 06/19/21 13:23 Sennosides 8.6 Mg Tablet PO BEDTIME PRN Constipation Sodium Chloride 3 ml 06/19/21 16:00 06/24/21 08:57 0.9 % Sodium Chloride Flush 3 Ml Syringe IVFLUSH 3 ml QSHIFT [facility] Administration Trazodone HCl 50 mg 06/19/21 13:23 06/22/21 20:53 Trazodone Hcl 50 Mg Tablet PO 50 mg DAILY PRN Administration for insomnia Warfarin Sodium 1.25 mg 06/19/21 18:00 06/21/21 18:02 Warfarin Sodium 1.25 Mg Halftab PO 1.25 mg MOWEFR@1800 [facility] Administration Warfarin Sodium 5 mg 06/20/21 18:00 06/23/21 17:43 Warfarin Sodium 5 Mg Tablet PO 5 mg SUTUTHSA@1800 [facility] Administration Time Spent With Patient Time: Total time spent is greater than 50% in coordination of care (as docu mented) at patient's floor/unit and/or counseling patient: Time with patient: less than 15 minutes Progress Note: Quality Stroke Does the patient have a stroke diagnosis?: No Procedures Date of Service Date of Service: 06/24/21
--- NOTE | 2021-06-24 12:35 | P.PNIM_ITS ---
Subjective Subjective Date of Service: 06/24/21 Interval History: Interval History:?F/u epistaxis, no further bleed, H/H stable on heparin, INR down to 1.9 Review of Systems no fever no nose bleed, no sob Physical Exam Vital Signs: Vital Signs: Last Vital Signs Temp 98.4 F 06/24/21 07:40 Pulse 83 06/24/21 08:56 Resp 17 06/24/21 07:40 BP 109/60 06/24/21 08:56 Pulse Ox 96 06/24/21 07:40 Body Mass Index 21.1 General: AO X 3, no acute distress HEENT--dry blood in right nose Resp: CTA bilateral CVS: S1,S2,RRR GI: +BS, NT, no distention Skin: No rash Neuro: motor grossly intact Psych: appropriate affect Objective Data Current Medications Generic Name Dose Route Start Last Admin Trade Name Freq PRN Reason Stop Dose Admin Acetaminophen 650 mg 06/19/21 13:20 06/19/21 19:36 Acetaminophen 325 Mg Tablet PO 650 mg Q6H PRN Administration Pain, Mild (Pain Scale 1-3) Ascorbic Acid 500 mg 06/19/21 21:00 06/24/21 08:56 Ascorbic Acid 500 Mg Tablet PO 500 mg BID NADINE Administration Atorvastatin Calcium 40 mg 06/20/21 09:00 06/24/21 08:55 Atorvastatin Calcium 40 Mg Tablet PO 40 mg DAILY NADINE Administration Calcium Carbonate/Cholecalciferol 500 mg 06/20/21 09:00 06/24/21 08:55 Calcium + Vitamin D 250 Mg Tablet PO 500 mg DAILY NAD[facility] Administration Carvedilol 25 mg 06/19/21 17:00 06/24/21 08:56 Carvedilol 25 Mg Tablet PO 25 mg BIDWM NADINE Administration Protocol Erythromycin 1 cm 06/20/21 09:00 06/24/21 08:57 Erythromycin Base 0.5% Oph Oin 1 Gm Tube EYE-BOTH 1 cm DAILY NADINE Administration Ferrous Sulfate 324 mg 06/19/21 21:00 06/24/21 08:55 Ferrous Sulfate 324 Mg Tablet. PO 324 mg BID NADINE Administration Fluoxetine HCl 20 mg 06/20/21 09:00 06/24/21 08:57 Fluoxetine Hcl 20 Mg Capsule PO 20 mg DAILY NAD[facility] Administration Heparin Sodium (Porcine) 2,600 unit 06/20/21 18:00 06/21/21 00:07 Heparin Sodium,Porcine 5,000 Unit/Ml Vial 40 unit/kg (2600 unit) 2,600 unit IVPUSH Administration PROTOCOL BOLUS PRN 40 unit/kg - Heparin Protocol Protocol Heparin Sodium (Porcine) 5,200 unit 06/20/21 18:00 Heparin Sodium,Porcine 5,000 Unit/Ml Vial 80 unit/kg (5200 unit) IVPUSH PROTOCOL BOLUS PRN 80 unit/kg - Heparin Protocol Protocol Heparin Sodium/Sodium Chloride 25,000 unit in 250 mls @ 0 mls/hr 06/20/21 18:00 06/24/21 06:36 IVCONT 10 units/kg/hr .Q0M [facility] 6.49 mls/hr Titration Protocol Per Protocol Isosorbide Dinitrate 5 mg 06/19/21 21:00 06/24/21 08:56 Isosorbide Dinitrate 5 Mg Tablet PO 5 mg BID NADINE Administration Protocol Levothyroxine Sodium 25 mcg 06/20/21 06:00 06/24/21 05:31 Levothyroxine Sodium 25 Mcg Tablet PO 25 mcg DAILY@0600 [facility] Administration Levothyroxine Sodium 112 mcg 06/20/21 06:00 06/24/21 05:31 Levothyroxine Sodium 112 Mcg Tablet PO 112 mcg DAILY@0600 [facility] Administration Meclizine HCl 25 mg 06/19/21 13:23 Meclizine Hcl 25 Mg Tablet PO TID PRN dizziness Multivitamins/Minerals 1 tab 06/19/21 21:00 06/24/21 08:55 Vits A,C,E/Lutein/Minerals Tablet PO 1 tab BID NADINE Administration Omeprazole 20 mg 06/20/21 06:30 06/24/21 05:31 Omeprazole 20 Mg Capsule.Dr PO 20 mg DAILY@0630 [facility] Administration Ondansetron HCl 4 mg 06/19/21 13:20 Ondansetron Hcl 4 Mg/2 Ml Vial IVPUSH Q8H PRN Nausea and Vomiting Pharmacy Consult 1 each 06/19/21 12:16 Consult Rx Perform Med Rec MISCELLANE ONCE PRN Consult order Senna 17.2 mg 06/19/21 13:23 Sennosides 8.6 Mg Tablet PO BEDTIME PRN Constipation Sodium Chloride 3 ml 06/19/21 16:00 06/24/21 08:57 0.9 % Sodium Chloride Flush 3 Ml Syringe IVFLUSH 3 ml QSHIFT [facility] Administration Trazodone HCl 50 mg 06/19/21 13:23 06/22/21 20:53 Trazodone Hcl 50 Mg Tablet PO 50 mg DAILY PRN Administration for insomnia Warfarin Sodium 1.25 mg 06/19/21 18:00 06/21/21 18:02 Warfarin Sodium 1.25 Mg Halftab PO 1.25 mg MOWEFR@1800 [facility] Administration Warfarin Sodium 5 mg 06/20/21 18:00 06/23/21 17:43 Warfarin Sodium 5 Mg Tablet PO 5 mg SUTUTHSA@1800 [facility] Administration Labs CBC & Chem 7: 06/23/21 06:06 06/24/21 05:49 Labs: Laboratory Results - last 24 hr 06/24/21 06/24/21 05:49 05:49 PT 22.0 H D INR 1.9 H PTT (Heparin Protocol) 86.2 H Anion Gap 13 Estim Creat Clear Calc 25.2 Estimated GFR 23 Random Glucose 95 Calcium 8.0 L Assessment and Plan (1) Acute on chronic kidney failure: Status: Resolved Assessment and Plan: 70yo F with HFrEF, ischemic CM s/p AICD placement, pHTN, CKD4, mitral valve stenosis s/p [facility] valve replacement, amyloidosis admitted for CHF exacerbation, epistaxis # acute/chronic HFrEF--presently euvolemic - stopped IV furosemide 06/21/21 due to increased BUN/Cr which have improved slightly; monitor closely; Cardiology following - continue carvedilol, isosorbide dinitrate # epistaxis, started 06/15 - s/p 2 Rhino Rockets, taken out 06/20/21, no further - if epistaxis recurs, will need to transfer to [facility] [place] for ENT consultation # mechanical mitral valve - on heparin gtt - resumed warfarin 06/21/21, goal INR 2.5-3.5, 1.9 today - once INR therapeutic, will need to start ASA as well - monitor PT/INR, PTT - monitor for recurrence of epistaxis # ALIZA/CKD4 - held diuresis as above, avoid nephrotoxins, and monitor BMP # normocytic anemia/ACD - Hb stable - continue FeSO4 # hypothyroidism - continue LT4 # mood disorder - continue fluoxetine # VTE ppx - heparin/warfarin as above Quality Stroke Does the patient have a stroke diagnosis?: No VTE Prior VTE?: No VTE Risk Level:: Medical - moderate - high VTE Device Contraindication: Treatment Not Indicated VTE Drug Contraindication: N/A - Med Ordered
[2021-06-24 13:07] LABS: PTT Heparin Drip 65.8 SEC (53-77.9)
[2021-06-24] MEDS: Acetaminophen 325 MG TABLET 650 MG PO ×2 (15:53→22:09)
[2021-06-24] MEDS: Heparin Sodium,Porcine/1/2NS 25,000 UNIT/250 ML IV.SOLN 6.49 UNIT IVCONT (17:19)
[2021-06-24] MEDS: Warfarin Sodium 1.25 MG HALFTAB PO (17:19)
[2021-06-24 18:46] LABS: PTT Heparin Drip 63.5 SEC (53-77.9)
[2021-06-25] VITALS (11 sets, daily range): BP systolic 91–121; BP diastolic 55–60; PULSE 74–87; RESP 14–18; TEMP 36.1–37.4; O2SAT 96–98
[2021-06-25] MEDS: 0.9 % Sodium Chloride Flush 3 ML SYRINGE IVFLUSH ×3 (01:22→17:30)
[2021-06-25] MEDS: Acetaminophen 325 MG TABLET 650 MG PO (04:57)
[2021-06-25] MEDS: Levothyroxine Sodium 112 MCG TABLET PO (04:57)
[2021-06-25] MEDS: Omeprazole 20 MG CAPSULE.DR PO (04:57)
[2021-06-25] MEDS: Levothyroxine Sodium 25 MCG TABLET PO (04:57)
[2021-06-25 06:01] LABS: INTERNATIONAL NORM RATIO 2.8 (0.9-1.1); Prothrombin Time 32.1 SEC (9.9-13.0)
[2021-06-25 06:03] LABS: PTT Heparin Drip 78.4 SEC (53-77.9)
--- NOTE | 2021-06-25 09:09 | P.PNIM_ITS ---
Subjective Subjective Date of Service: 06/25/21 Interval History: dizziness,hematuria episode Review of Systems Dizziness seems to be improving slowly no new episode of hematuria inr2.8 Physical Exam Vital Signs: Vital Signs: Last Vital Signs Temp 97.1 F 06/25/21 07:43 Pulse 74 06/25/21 07:43 Resp 16 06/25/21 07:43 BP 121/60 06/25/21 07:43 Pulse Ox 98 06/25/21 07:43 Body Mass Index 21.1 General: AO X 3, no acute distress HEENT--dry blood in right nose Resp:? CTA bilateral CVS: S1,S2,RRR GI: +BS, NT, no distention Skin: No rash Neuro:? motor grossly intact Psych: appropriate affect Objective Data Current Medications Generic Name Dose Route Start Last Admin Trade Name Freq PRN Reason Stop Dose Admin Acetaminophen 650 mg 06/19/21 13:20 06/25/21 04:57 Acetaminophen 325 Mg Tablet PO 650 mg Q6H PRN Administration Pain, Mild (Pain Scale 1-3) Ascorbic Acid 500 mg 06/19/21 21:00 06/24/21 22:02 Ascorbic Acid 500 Mg Tablet PO 500 mg BID NADINE Administration Atorvastatin Calcium 40 mg 06/20/21 09:00 06/24/21 08:55 Atorvastatin Calcium 40 Mg Tablet PO 40 mg DAILY NADINE Administration Calcium Carbonate/Cholecalciferol 500 mg 06/20/21 09:00 06/24/21 08:55 Calcium + Vitamin D 250 Mg Tablet PO 500 mg DAILY NADINE Administration Carvedilol 25 mg 06/19/21 17:00 06/24/21 15:54 Carvedilol 25 Mg Tablet PO 25 mg BIDWM NADINE Administration Protocol Erythromycin 1 cm 06/20/21 09:00 06/24/21 08:57 Erythromycin Base 0.5% Oph Oin 1 Gm Tube EYE-BOTH 1 cm DAILY NADINE Administration Ferrous Sulfate 324 mg 06/19/21 21:00 06/24/21 22:02 Ferrous Sulfate 324 Mg Tablet. PO 324 mg BID NADINE Administration Fluoxetine HCl 20 mg 06/20/21 09:00 06/24/21 08:57 Fluoxetine Hcl 20 Mg Capsule PO 20 mg DAILY NADINE Administration Heparin Sodium (Porcine) 2,600 unit 06/20/21 18:00 06/21/21 00:07 Heparin Sodium,Porcine 5,000 Unit/Ml Vial 40 unit/kg (2600 unit) 2,600 unit IVPUSH Administration PROTOCOL BOLUS PRN 40 unit/kg - Heparin Protocol Protocol Heparin Sodium (Porcine) 5,200 unit 06/20/21 18:00 Heparin Sodium,Porcine 5,000 Unit/Ml Vial 80 unit/kg (5200 unit) IVPUSH PROTOCOL BOLUS PRN 80 unit/kg - Heparin Protocol Protocol Heparin Sodium/Sodium Chloride 25,000 unit in 250 mls @ 0 mls/hr 06/20/21 18:00 06/25/21 06:44 IVCONT 8 units/kg/hr .Q0M [facility] 5.19 mls/hr Titration Protocol Per Protocol Isosorbide Dinitrate 5 mg 06/19/21 21:00 06/24/21 22:06 Isosorbide Dinitrate 5 Mg Tablet PO 5 mg BID NADINE Administration Protocol Levothyroxine Sodium 25 mcg 06/20/21 06:00 06/25/21 04:57 Levothyroxine Sodium 25 Mcg Tablet PO 25 mcg DAILY@0600 [facility] Administration Levothyroxine Sodium 112 mcg 06/20/21 06:00 06/25/21 04:57 Levothyroxine Sodium 112 Mcg Tablet PO 112 mcg DAILY@0600 [facility] Administration Meclizine HCl 25 mg 06/19/21 13:23 Meclizine Hcl 25 Mg Tablet PO TID PRN dizziness Multivitamins/Minerals 1 tab 06/19/21 21:00 06/24/21 22:02 Vits A,C,E/Lutein/Minerals Tablet PO 1 tab BID NADINE Administration Omeprazole 20 mg 06/20/21 06:30 06/25/21 04:57 Omeprazole 20 Mg Capsule.Dr PO 20 mg DAILY@0630 [facility] Administration Ondansetron HCl 4 mg 06/19/21 13:20 Ondansetron Hcl 4 Mg/2 Ml Vial IVPUSH Q8H PRN Nausea and Vomiting Pharmacy Consult 1 each 06/19/21 12:16 Consult Rx Perform Med Rec MISCELLANE ONCE PRN Consult order Senna 17.2 mg 06/19/21 13:23 Sennosides 8.6 Mg Tablet PO BEDTIME PRN Constipation Sodium Chloride 3 ml 06/19/21 16:00 06/25/21 01:22 0.9 % Sodium Chloride Flush 3 Ml Syringe IVFLUSH 3 ml QSHIFT [facility] Administration Trazodone HCl 50 mg 06/19/21 13:23 06/22/21 20:53 Trazodone Hcl 50 Mg Tablet PO 50 mg DAILY PRN Administration for insomnia Warfarin Sodium 1.25 mg 06/19/21 18:00 06/24/21 17:19 Warfarin Sodium 1.25 Mg Halftab PO 1.25 mg MOWEFR@1800 [facility] Administration Warfarin Sodium 5 mg 06/20/21 18:00 06/23/21 17:43 Warfarin Sodium 5 Mg Tablet PO 5 mg SUTUTHSA@1800 [facility] Administration Labs CBC & Chem 7: 06/25/21 09:32 06/25/21 09:32 Labs: Laboratory Results - last 24 hr 06/24/21 06/24/21 06/25/21 12:22 18:25 05:27 PT 32.1 H D INR 2.8 H PTT (Heparin Protocol) 65.8 D 63.5 78.4 H D Assessment and Plan (1) Epistaxis: Status: Acute Assessment and Plan: 70yo F with HFrEF, ischemic CM s/p AICD placement, pHTN, CKD4, mitral valve stenosis s/p [facility] valve replacement, amyloidosis admitted for CHF exacerbation, epistaxis 1. acute/chronic HFrEF--presently euvolemic - stopped IV furosemide 06/21/21 due to increased BUN/Cr which have improved slightly; monitor closely; Cardiology following - continue carvedilol, isosorbide dinitrate 2. epistaxis, started 06/15 - s/p 2 Rhino Rockets, taken out 06/20/21, no further - if epistaxis recurs, will need to transfer to [facility] for ENT consultation 3. mechanical mitral valve resumed warfarin 06/21/21, goal INR 2.5-3.5, inr 2.8 today,off heparin gtt once INR therapeutic, will need to start ASA as well monitor PT/INR, PTT monitor for recurrence of epistaxis 4.ALIZA/CKD4: seems euvolemic - held diuresis as above, avoid nephrotoxins, and monitor BMP 5.normocytic anemia/ACD - Hb stable - continue FeSO4 6. hypothyroidism - continue LT4 7. mood disorder - continue fluoxetine 8. Hemturia : h/h seems similar as yesterday [facility] urology eval # VTE ppx warfarin as above Quality Stroke Does the patient have a stroke diagnosis?: No VTE Prior VTE?: No VTE Risk Level:: Medical - moderate - high VTE Device Contraindication: Treatment Not Indicated VTE Drug Contraindication: N/A - Med Ordered
[2021-06-25] MEDS: Atorvastatin Calcium 40 MG TABLET PO (09:27)
[2021-06-25] MEDS: Isosorbide Dinitrate 5 MG TABLET PO ×2 (09:27→20:43)
[2021-06-25] MEDS: Ferrous Sulfate 324 MG TABLET.DR PO ×2 (09:27→20:43)
[2021-06-25] MEDS: FLUoxetine HCl 20 MG CAPSULE PO (09:28)
[2021-06-25] MEDS: carvediloL 25 MG TABLET PO ×2 (09:28→17:25)
[2021-06-25] MEDS: Erythromycin Base 0.5% Oph Oin 1 GM TUBE 1 CM EYE-BOTH (09:28)
[2021-06-25] MEDS: Ascorbic Acid 500 MG TABLET PO ×2 (09:28→20:42)
[2021-06-25] MEDS: Calcium + Vitamin D 250 MG TABLET 500 MG PO (09:28)
[2021-06-25 09:39] LABS: Hematocrit 27.3 % (37-47); Hemoglobin 8.4 g/dl (12.0-16.0); Mean Corpuscular HGB Conc 30.8 g/dl (31.0-35.0); Mean Corpuscular Hemoglobin 28.9 pg (27.0-33.0); Mean Corpuscular Volume 93.8 fL (80-98); Mean Platelet Volume 12.8 fL (9.4-12.3); Platelet Count 139 X10*3/uL (160-400); Red Blood Count 2.91 X10*6/uL (4.20-5.50); Red Cell Distribution Width 17.2 % (11.0-16.0); White Blood Count 6.9 X10*3/uL (4.8-10.8)
[2021-06-25 10:07] LABS: Anion Gap 14 (12-20); Blood Urea Nitrogen 62 mg/dL (9-16); Carbon Dioxide 22 mmol/L (22-29); Chloride 106 mmol/L (96-108); Creatinine Clr Calc Pharmacy 22.8; Estimated Glomerular Filt Rate 20; Glucose Random 132 mg/dL (60-115); Potassium 4.6 mmol/L (3.3-5.1); Sodium 137 mmol/L (135-145)
--- NOTE | 2021-06-25 10:58 | P.PNCA_ITS ---
Subjective Subjective Date of Service: 06/25/21 Interval history: No further nose bleeds. Review of Systems Review of Systems Yes all other systems are reviewed and are negative Cardiovascular: Reports as per HPI, Reports no additional cardiovascular complaints, Denies acrocyanosis, Denies cool extremities, Denies painful fingertips, Denies chest pain, Denies chest pain at rest, Denies diaphoresis, Denies syncope, Denies irregular heart rhythm, Denies claudication, Denies leg edema, Denies lightheadedness, Denies palpitations and Denies dyspnea Respiratory: Denies dyspnea Denies syncope Endocrine: Denies palpitations Physical Exam Vital Signs: Last Vital Signs Temp 97.1 F 06/25/21 07:43 Pulse 74 06/25/21 09:28 Resp 16 06/25/21 07:43 BP 121/60 06/25/21 09:28 Pulse Ox 98 06/25/21 07:43 Body Mass Index 21.1 Const General: cooperative and no acute distress HENCO Other: Unremarkable Neck Neck: Yes normal visual inspection Chest Chest palpation & inspection: normal inspection of the chest Resp Auscultation: clear to auscultation bilaterally, no crackles and no wheezes Cardio Other: Normal prosthetic heart sounds Jugular venous distension: no JVD Palpation: normal PMI GI Palpation (GI): Soft to palpation Back/Spine/Pelvis Other: unremarkable Skin General skin exam: no rashes or lesions noted Neuro Cranial nerves: Yes Other cranial nerve findings present Extrem General: Yes no clubbing, cyanosis or edema Psych Mental Status: other Results Labs and Meds Result diagrams: 06/25/21 09:32 06/25/21 09:32 Lab results: Laboratory Results - last 24 hr 06/24/21 06/24/21 06/25/21 12:22 18:25 05:27 WBC RBC Hgb Hct MCV MCH MCHC RDW Plt Count MPV Absolute Nucleated RBC Nucleated RBC % (auto) PT 32.1 H D INR 2.8 H PTT (Heparin Protocol) 65.8 D 63.5 78.4 H D Sodium Potassium Chloride Carbon Dioxide Anion Gap BUN Creatinine Estim Creat Clear Calc Estimated GFR Random Glucose Calcium 06/25/21 06/25/21 09:32 09:32 WBC 6.9 RBC 2.91 L Hgb 8.4 L Hct 27.3 L MCV 93.8 MCH 28.9 MCHC 30.8 L RDW 17.2 H Plt Count 139 L MPV 12.8 H Absolute Nucleated RBC 0.000 Nucleated RBC % (auto) 0.0 PT INR PTT (Heparin Protocol) Sodium 137 Potassium 4.6 Chloride 106 Carbon Dioxide 22 Anion Gap 14 BUN 62 H Creatinine 2.38 H Estim Creat Clear Calc 22.8 Estimated GFR 20 Random Glucose 132 H D Calcium 8.0 L Progress Note: A&P Assessment and plan (1) Epistaxis: Status: Acute (2) H/O mitral valve replacement: Status: Acute (3) Acute on chronic heart failure with preserved ejection fraction: Status: Acute Assessment and Plan: Bridging IV heparin to warfarin. INR improved to 2.8. Aspirin to be re- initiated before discharge. If recurrent bleeds, then will need ENT assessment. May resume home diuretics on discharge and check INR/BUN/Cr post discharge. FU in officee. Fall Risk Details Current Medications: Current Medications Generic Name Dose Route Start Last Admin Trade Name Freq PRN Reason Stop Dose Admin Acetaminophen 650 mg 06/19/21 13:20 06/25/21 04:57 Acetaminophen 325 Mg Tablet PO 650 mg Q6H PRN Administration Pain, Mild (Pain Scale 1-3) Ascorbic Acid 500 mg 06/19/21 21:00 06/25/21 09:28 Ascorbic Acid 500 Mg Tablet PO 500 mg BID NADINE Administration Atorvastatin Calcium 40 mg 06/20/21 09:00 06/25/21 09:27 Atorvastatin Calcium 40 Mg Tablet PO 40 mg DAILY NAD[facility] Administration Calcium Carbonate/Cholecalciferol 500 mg 06/20/21 09:00 06/25/21 09:28 Calcium + Vitamin D 250 Mg Tablet PO 500 mg DAILY [facility] Administration Carvedilol 25 mg 06/19/21 17:00 06/25/21 09:28 Carvedilol 25 Mg Tablet PO 25 mg BIDWM NAD[facility] Administration Protocol Erythromycin 1 cm 06/20/21 09:00 06/25/21 09:28 Erythromycin Base 0.5% Oph Oin 1 Gm Tube EYE-BOTH 1 cm DAILY NADINE Administration Ferrous Sulfate 324 mg 06/19/21 21:00 06/25/21 09:27 Ferrous Sulfate 324 Mg Tablet. PO 324 mg BID NADINE Administration Fluoxetine HCl 20 mg 06/20/21 09:00 06/25/21 09:28 Fluoxetine Hcl 20 Mg Capsule PO 20 mg DAILY [facility] Administration Heparin Sodium (Porcine) 2,600 unit 06/20/21 18:00 06/21/21 00:07 Heparin Sodium,Porcine 5,000 Unit/Ml Vial 40 unit/kg (2600 unit) 2,600 unit IVPUSH Administration PROTOCOL BOLUS PRN 40 unit/kg - Heparin Protocol Protocol Heparin Sodium (Porcine) 5,200 unit 06/20/21 18:00 Heparin Sodium,Porcine 5,000 Unit/Ml Vial 80 unit/kg (5200 unit) IVPUSH PROTOCOL BOLUS PRN 80 unit/kg - Heparin Protocol Protocol Heparin Sodium/Sodium Chloride 25,000 unit in 250 mls @ 0 mls/hr 06/20/21 18:00 06/25/21 10:10 IVCONT Infused .Q0M [facility] Titration Protocol Per Protocol Isosorbide Dinitrate 5 mg 06/19/21 21:00 06/25/21 09:27 Isosorbide Dinitrate 5 Mg Tablet PO 5 mg BID [facility] Administration Protocol Levothyroxine Sodium 25 mcg 06/20/21 06:00 06/25/21 04:57 Levothyroxine Sodium 25 Mcg Tablet PO 25 mcg DAILY@0600 [facility] Administration Levothyroxine Sodium 112 mcg 06/20/21 06:00 06/25/21 04:57 Levothyroxine Sodium 112 Mcg Tablet PO 112 mcg DAILY@0600 [facility] Administration Meclizine HCl 25 mg 06/19/21 13:23 Meclizine Hcl 25 Mg Tablet PO TID PRN dizziness Multivitamins/Minerals 1 tab 06/19/21 21:00 06/25/21 09:28 Vits A,C,E/Lutein/Minerals Tablet PO 1 tab BID [facility] Administration Omeprazole 20 mg 06/20/21 06:30 06/25/21 04:57 Omeprazole 20 Mg Capsule.Dr PO 20 mg DAILY@0630 [facility] Administration Ondansetron HCl 4 mg 06/19/21 13:20 Ondansetron Hcl 4 Mg/2 Ml Vial IVPUSH Q8H PRN Nausea and Vomiting Pharmacy Consult 1 each 06/19/21 12:16 Consult Rx Perform Med Rec MISCELLANE ONCE PRN Consult order Senna 17.2 mg 06/19/21 13:23 Sennosides 8.6 Mg Tablet PO BEDTIME PRN Constipation Sodium Chloride 3 ml 06/19/21 16:00 06/25/21 09:28 0.9 % Sodium Chloride Flush 3 Ml Syringe IVFLUSH 3 ml QSHIFT [facility] Administration Trazodone HCl 50 mg 06/19/21 13:23 06/22/21 20:53 Trazodone Hcl 50 Mg Tablet PO 50 mg DAILY PRN Administration for insomnia Warfarin Sodium 1.25 mg 06/19/21 18:00 06/24/21 17:19 Warfarin Sodium 1.25 Mg Halftab PO 1.25 mg MOWEFR@1800 [facility] Administration Warfarin Sodium 5 mg 06/20/21 18:00 06/23/21 17:43 Warfarin Sodium 5 Mg Tablet PO 5 mg SUTUTHSA@1800 [facility] Administration Time Spent With Patient Time: Total time spent is greater than 50% in coordination of care (as documented) at patient's floor/unit and/or counseling patient: Time with patient: less than 15 minutes Progress Note: Quality Stroke Does the patient have a stroke diagnosis?: No Procedures Date of Service Date of Service: 06/25/21
--- NOTE | 2021-06-25 10:58 | PC.NURSE ---
Skin/wound assessment completed today. Patient has blanchable redness to coccyx/buttocks-EPC cream applied, also BLE brownish discoloration. Present on admission. No other skin issues noted at this time.
[2021-06-25] MEDS: Heparin Sodium,Porcine/1/2NS 25,000 UNIT/250 ML IV.SOLN 5.19 UNIT IVCONT (11:23)
[2021-06-25 13:05] LABS: PTT Heparin Drip 44.4 SEC (53-77.9)
[2021-06-25 13:12] LABS: Glucose Urine UA NEG (NEG); Leukocyte Esterase Urine NEG (NEG); Nitrite Urine NEG (NEG); Specific Gravity - Urine 1.015 (1.005-1.025); Urine Blood TRACE (NEG); Urine Ketones NEG (NEG); Urine Protein 2+ MG/DL (NEG-TRACE)
[2021-06-25 13:13] LABS: Appearance Urine CLEAR; Color Urine STRAW
[2021-06-25 13:24] LABS: Mucus Urine TRACE /LPF; RBC Urine 0-2 /HPF (0); Renal Epithelial Cells Urine TRACE /LPF; Squamous Epithelial Cell Urine TRACE /LPF
--- NOTE | 2021-06-25 13:58 | MHC.CM.PN ---
CM met with Patient to once again offer VNA services. Patient does not want VNA in the home during Covid, nor r/t her dog. Patient has her labs drawn at [facility] and is comfortable returning home without VNA. ABHAY has relayed this information to her MD.
[2021-06-25] MEDS: Warfarin Sodium 5 MG TABLET PO (17:24)
[2021-06-25] MEDS: Hydrocortisone 2.5 % Rectal Cr 30 GM TUBE 1 APPL PR (20:43)
[2021-06-25] MEDS: traZODone HCL 50 MG TABLET PO (20:43)
[2021-06-26] VITALS (7 sets, daily range): BP systolic 92–121; BP diastolic 53–57; PULSE 68–70; RESP 16–20; TEMP 36.2–37; O2SAT 97–99
[2021-06-26] MEDS: 0.9 % Sodium Chloride Flush 3 ML SYRINGE IVFLUSH ×2 (00:07→08:22)
[2021-06-26] MEDS: Acetaminophen 325 MG TABLET 650 MG PO (05:52)
[2021-06-26] MEDS: Levothyroxine Sodium 25 MCG TABLET PO (05:52)
[2021-06-26] MEDS: Levothyroxine Sodium 112 MCG TABLET PO (05:52)
[2021-06-26] MEDS: Omeprazole 20 MG CAPSULE.DR PO (05:52)
[2021-06-26 07:23] LABS: MANUAL DIFF FLAG NO
[2021-06-26 07:30] LABS: Basophils Percent Auto 0.3 % (0-2); Eosinophils Absolute Auto 0.1 X10*3/uL (0.0-0.4); Hematocrit 25.2 % (37-47); Hemoglobin 7.7 g/dl (12.0-16.0); Imm Gran Abs Auto 0.04 X10*3/uL (0.00-0.03); Imm Gran Pct Auto 0.5 % (0.0-0.4); Lymphocytes Absolute Auto 0.7 X10*3/uL (1.2-4.9); Mean Corpuscular HGB Conc 30.6 g/dl (31.0-35.0); Mean Corpuscular Hemoglobin 28.5 pg (27.0-33.0); Mean Corpuscular Volume 93.3 fL (80-98); Mean Platelet Volume 12.9 fL (9.4-12.3); Monocytes Absolute Auto 0.9 X10*3/uL (0.1-1.2); Monocytes Percent Auto 11.8 % (2-11); Neutrophils Absolute Auto 6.1 X10*3/uL (2.0-8.3); Neutrophils Percent Auto 77.4 % (45-73); Platelet Count 160 X10*3/uL (160-400); Red Cell Distribution Width 17.2 % (11.0-16.0); White Blood Count 7.9 X10*3/uL (4.8-10.8)
--- NOTE | 2021-06-26 07:31 | PM.UROCN ---
History of Present Illness Consult details Consult date: 06/25/21 Narrative: 70-year-old female Consultation for gross hematuria Hospital admission for elevated INR Hematuria has resolved as anti coagulation has been reversed No evidence of urinary tract infection Recent CT scan with evidence of punctate stones No acute urologic issue. Can follow as outpatient. Review of Systems Constitutional: Constitutional: Denies chills and Denies fever(s) Cardiovascular: Cardiovascular: Reports no additional cardiovascular complaints and Denies syncope Respiratory: Respiratory: Denies cough Gastrointestinal: Gastrointestinal: Denies abdominal pain and Denies heartburn Genitourinary: Genitourinary: Reports as per HPI and Denies change in libido Neurologic: Denies syncope Psychiatric: Psychiatric: Denies change in libido Endocrine: Endocrine: Denies change in libido [facility] Past Medical History Medical History Amyloidosis Anxiety and depression Arthritis Bladder hypertonicity Chronic atrial fibrillation Chronic HFrEF (heart failure with reduced ejection fraction) Chronic kidney disease (CKD) stage G4/A1, severely decreased glomerular filtration rate (GFR) between 15-29 mL/min/1.73 square meter and albuminuria creatinine ratio less than 30 mg/g Detached retina Gout Heart disease History of breast cancer History of breast cancer HTN (hypertension) Hypercholesterolemia Hypothyroid ICD (implantable cardioverter-defibrillator) in place Ischemic cardiomyopathy Kidney disease Nephrolithiasis Osteoarthritis Overweight (BMI 25.0-29.9) Pulmonary hypertension Thumb tendonitis Tricuspid regurgitation Urinary incontinence Family History Family History Mother Diabetes Father Past heart attack Diabetes Sister Parkinsons disease Surgical History Surgical History H/O abdominal hysterectomy H/O mitral valve replacement H/O mitral valve replacement with mechanical valve History of bunionectomy History of cataract surgery History of colonoscopy History of left inguinal hernia repair History of sleeve gastrectomy Social History Social History Household Members: None Household Members Other:: brother lives downstairs Housing: Apartment Do you presently have visiting nurse or other home services: No Alcohol intake: never Patient Tobacco Use Status: Never used Tobacco Tobacco use type: Cigarette e-Cigarette/Vaping Use: Never Used Second Hand Smoke Exposure: No Use of substances other than those prescribed or required for medical reasons: No Currently Displaying Signs/Symptoms of Drug Intoxication Withdrawal: No Have you been hit, kicked, punched, or otherwise hurt by someone within the past year? If so, by whom?: No Do you feel safe in your current relationship?: Yes Is there a partner from a previous relationship who is making you feel unsafe now?: No Are you made to feel afraid or neglected: No Advance Directives: No Advance Directives Information Provided: No Do you have thoughts of harming others: None Do you have a plan to hurt others: No Plan Recently lost weight without trying: No service: No Current occupational status: disabled Current occupation: left handed Meds Allergies Allergy/AdvReac Type Severity Reaction Status Date / Time TAPE,PAPER Allergy Unknown RASH TO Uncoded 05/23/21 09:57 PAPER TAPE Active Medications: Current Medications Generic Name Dose Route Start Last Admin Trade Name Freq PRN Reason Stop Dose Admin Acetaminophen 650 mg 06/19/21 13:20 06/26/21 05:52 Acetaminophen 325 Mg Tablet PO 650 mg Q6H PRN Administration Pain, Mild (Pain Scale 1-3) Ascorbic Acid 500 mg 06/19/21 21:00 06/25/21 20:42 Ascorbic Acid 500 Mg Tablet PO 500 mg BID NADINE Administration Atorvastatin Calcium 40 mg 06/20/21 09:00 06/25/21 09:27 Atorvastatin Calcium 40 Mg Tablet PO 40 mg DAILY NADINE Administration Calcium Carbonate/Cholecalciferol 500 mg 06/20/21 09:00 06/25/21 09:28 Calcium + Vitamin D 250 Mg Tablet PO 500 mg DAILY NADINE Administration Carvedilol 25 mg 06/19/21 17:00 06/25/21 17:25 Carvedilol 25 Mg Tablet PO 25 mg BIDWM NADINE Administration Protocol Erythromycin 1 cm 06/20/21 09:00 06/25/21 09:28 Erythromycin Base 0.5% Oph Oin 1 Gm Tube EYE-BOTH 1 cm DAILY NADINE Administration Ferrous Sulfate 324 mg 06/19/21 21:00 06/25/21 20:43 Ferrous Sulfate 324 Mg Tablet. PO 324 mg BID NADINE Administration Fluoxetine HCl 20 mg 06/20/21 09:00 06/25/21 09:28 Fluoxetine Hcl 20 Mg Capsule PO 20 mg DAILY NADINE Administration Heparin Sodium (Porcine) 2,600 unit 06/20/21 18:00 06/21/21 00:07 Heparin Sodium,Porcine 5,000 Unit/Ml Vial 40 unit/kg (2600 unit) 2,600 unit IVPUSH Administration PROTOCOL BOLUS PRN 40 unit/kg - Heparin Protocol Protocol Heparin Sodium (Porcine) 5,200 unit 06/20/21 18:00 Heparin Sodium,Porcine 5,000 Unit/Ml Vial 80 unit/kg (5200 unit) IVPUSH PROTOCOL BOLUS PRN 80 unit/kg - Heparin Protocol Protocol Hydrocortisone 1 appl 06/25/21 21:00 06/25/21 20:43 Hydrocortisone 2.5 % Rectal Cr 30 Gm Tube IN 1 appl BEDTIME NADINE Administration Heparin Sodium/Sodium Chloride 25,000 unit in 250 mls @ 0 mls/hr 06/20/21 18:00 06/25/21 11:34 IVCONT 0 units/kg/hr .Q0M NADINE 0 mls/hr Titration Protocol Per Protocol Isosorbide Dinitrate 5 mg 06/19/21 21:00 06/25/21 20:43 Isosorbide Dinitrate 5 Mg Tablet PO 5 mg BID NADINE Administration Protocol Levothyroxine Sodium 25 mcg 06/20/21 06:00 06/26/21 05:52 Levothyroxine Sodium 25 Mcg Tablet PO 25 mcg DAILY@0600 NADINE Administration Levothyroxine Sodium 112 mcg 06/20/21 06:00 06/26/21 05:52 Levothyroxine Sodium 112 Mcg Tablet PO 112 mcg DAILY@0600 NADINE Administration Meclizine HCl 25 mg 06/19/21 13:23 Meclizine Hcl 25 Mg Tablet PO TID PRN dizziness Multivitamins/Minerals 1 tab 06/19/21 21:00 06/25/21 20:42 Vits A,C,E/Lutein/Minerals Tablet PO 1 tab BID NADINE Administration Omeprazole 20 mg 06/20/21 06:30 06/26/21 05:52 Omeprazole 20 Mg Capsule. PO 20 mg DAILY@0630 NADINE Administration Ondansetron HCl 4 mg 06/19/21 13:20 Ondansetron Hcl 4 Mg/2 Ml Vial IVPUSH Q8H PRN Nausea and Vomiting Pharmacy Consult 1 each 06/19/21 12:16 Consult Rx Perform Med Rec MISCELLANE ONCE PRN Consult order Senna 17.2 mg 06/19/21 13:23 Sennosides 8.6 Mg Tablet PO BEDTIME PRN Constipation Sodium Chloride 3 ml 06/19/21 16:00 06/26/21 00:07 0.9 % Sodium Chloride Flush 3 Ml Syringe IVFLUSH 3 ml QSHIFT [facility] Administration Trazodone HCl 50 mg 06/19/21 13:23 06/25/21 20:43 Trazodone Hcl 50 Mg Tablet PO 50 mg DAILY PRN Administration for insomnia Warfarin Sodium 1.25 mg 06/19/21 18:00 06/24/21 17:19 Warfarin Sodium 1.25 Mg Halftab PO 1.25 mg MOWEFR@1800 [facility] Administration Warfarin Sodium 5 mg 06/20/21 18:00 06/25/21 17:24 Warfarin Sodium 5 Mg Tablet PO 5 mg SUTUTHSA@1800 [facility] Administration Home Medications Medication Instructions Recorded Confirmed Last Taken Type acetaminophen 325 mg capsule 325 mg PO QID PRN 08/06/20 06/19/21 Unknown History (Tylenol) vit C 250 mg-vit E 90 mg-zinc 40 1 tab PO BID 08/06/20 06/19/21 04/08/21 08:00 History mg-copper 1 [id number] capsule (PreserVision AREDS-2) ferrous sulfate 324 mg (65 mg 324 mg PO BID 11/05/20 06/19/21 06/19/21 History iron) tablet,delayed release sennosides 8.6 mg tablet 17.2 mg PO BEDTIME PRN 02/05/21 06/19/21 03/29/21 History erythromycin 5 mg/gram (0.5 %) eye 5 mg OPHTHALMIC (EYE) DAILY 05/14/21 06/19/21 06/18/21 History ointment calcium carbonate 500 mg (1,250 1.5 tab PO DAILY 06/19/21 06/19/21 06/18/21 History mg)-vitamin D3 125 unit tablet carvedilol 25 mg tablet (Coreg) 25 mg PO BIDWM 06/19/21 06/19/21 06/19/21 History potassium chloride 20 mEq 20 meq PO Q48H 06/19/21 06/19/21 06/19/21 History tablet,extended release(part/cryst) (Klor-Con M) warfarin 2.5 mg tablet 1.25 mg PO MOWEFR@1800 06/19/21 06/19/21 06/17/21 History warfarin 2.5 mg tablet 2.5 mg PO SUTUTHSA@1800 06/19/21 06/19/21 06/18/21 History Physical Exam Vital Signs: Vital Signs: Last Vital Signs Temp 98.1 F 06/26/21 03:03 Pulse 68 06/26/21 03:03 Resp 16 06/26/21 03:03 BP 118/57 L 06/26/21 03:03 Pulse Ox 97 06/26/21 03:03 Body Mass Index 21.1 Const: General: cooperative, healthy appearing, comfortable and no acute distress Orientation/consciousness: patient oriented x3 HENMT: Face and sinus: Yes normal facial exam Mouth: moist mucous membranes Neck: Neck: Yes normal visual inspection, Yes full ROM and Yes trachea midline Chest: Chest palpation & inspection: normal inspection of the chest Resp: Effort & Inspection: normal respiratory effort, able to speak in complete sentences and no respiratory distress GI: Inspection: Yes normal to inspection Back/Spine/Pelvis: Cervical Spine: normal cervical lordosis Thoracic/Lumbar Spine: thoracic and lumbar spine normal to inspection Skin: General skin exam: no rashes or lesions noted Neuro: General: patient oriented x3, gait normal, tone normal and moves all extremities Extrem: General: Yes normal to inspection and Yes capillary refill normal Results Labs Result diagrams: 06/25/21 09:32 06/25/21 09:32 Labs: Abnormal lab results 06/25/21 06/25/21 06/25/21 Range/Units 09:32 09:32 09:32 RBC 2.91 L (4.20-5.50) X10*6/uL Hgb 8.4 L (12.0-16.0) g/dl Hct 27.3 L (37-47) % MCHC 30.8 L (31.0-35.0) g/dl RDW 17.2 H (11.0-16.0) % Plt Count 139 L (160-400) X10*3/uL MPV 12.8 H (9.4-12.3) fL PTT (Heparin Protocol) (53-77.9) SEC BUN 62 H (9-16) mg/dL Creatinine 2.38 H (0.5-1.4) mg/dL Random Glucose 132 H D (60-115) mg/dL Calcium 8.0 L (8.4-10.2) mg/dL Urine Protein (NEG-TRACE) MG/DL Crossmatch (G) See Detail 06/25/21 06/25/21 Range/Units 12:39 12:55 RBC (4.20-5.50) X10*6/uL Hgb (12.0-16.0) g/dl Hct (37-47) % MCHC (31.0-35.0) g/dl RDW (11.0-16.0) % Plt Count (160-400) X10*3/uL MPV (9.4-12.3) fL PTT (Heparin Protocol) 44.4 L D (53-77.9) SEC BUN (9-16) mg/dL Creatinine (0.5-1.4) mg/dL Random Glucose (60-115) mg/dL Calcium (8.4-10.2) mg/dL Urine Protein 2+ H (NEG-TRACE) MG/DL Crossmatch ([facility]) Short CBC 06/25/21 Range/Units 09:32 WBC 6.9 (4.8-10.8) X10*3/uL Hgb 8.4 L (12.0-16.0) g/dl Hct 27.3 L (37-47) % Plt Count 139 L (160-400) X10*3/uL BMP 06/25/21 09:32 Sodium 137 Potassium 4.6 Chloride 106 Carbon Dioxide 22 BUN 62 H Creatinine 2.38 H Calcium 8.0 L Urine 06/25/21 Range/Units 12:55 Urine Color STRAW Urine Appearance CLEAR Urine pH 6.0 (5.0-8.0) Ur Specific [place] 1.015 (1.005-1.025) Urine Protein 2+ H (NEG-TRACE) MG/DL Urine Glucose (UA) NEG (NEG) MG/DL All other labs normal. Assessment and Plan (1) Gross hematuria: Status: Acute Follows outpatient for UA Procedures Date of Service Date of Service: 06/25/21
[2021-06-26 07:46] LABS: INTERNATIONAL NORM RATIO 3.1 (0.9-1.1); Prothrombin Time 35.9 SEC (9.9-13.0)
[2021-06-26] MEDS: Calcium + Vitamin D 250 MG TABLET 500 MG PO (08:25)
[2021-06-26] MEDS: Ascorbic Acid 500 MG TABLET PO (08:25)
[2021-06-26] MEDS: Erythromycin Base 0.5% Oph Oin 1 GM TUBE 1 CM EYE-BOTH (08:25)
[2021-06-26] MEDS: Atorvastatin Calcium 40 MG TABLET PO (08:25)
[2021-06-26] MEDS: Ferrous Sulfate 324 MG TABLET.DR PO (08:25)
[2021-06-26] MEDS: Isosorbide Dinitrate 5 MG TABLET PO (08:25)
[2021-06-26] MEDS: FLUoxetine HCl 20 MG CAPSULE PO (08:25)
[2021-06-26] MEDS: carvediloL 3.125 MG TABLET 18.75 MG PO (08:57)
[2021-06-26 09:05] LABS: Hematocrit 28.6 % (37-47); Hemoglobin 8.6 g/dl (12.0-16.0)
--- NOTE | 2021-06-26 12:58 | W.MHC.F2F ---
Service Date Service Date: 06/26/21 Encounter Date of encounter: 06/26/21 Encounter: chf, ckd , mech mitral valve Reasons for Services Homebound: Leaving the home is medically contraindicated at this time without the asist of a device and/or another person due th the listed conditions above and below. Homebound supporting statement: Patient generally weak and needed help going to appointment, and blood draws . Certification: Based on the above findings, I certify that this patient is confined to the home and needs intermittent assisted care, physical therapy and/or speech therapy, or continues to need occupational therapy. The patient is under my care, and I have initiated the establishment of the plan of care. The patient will be followed by a physician who will periodically review the plan of care.
--- NOTE | 2021-06-26 13:00 | PM.DS ---
DS: Providers Provider Date of Service: 06/26/21 Date of admission: 06/19/21 13:20 Date of discharge: 06/26/21 Primary care physician: Dakotah Jin MD Consults: 06/19/21 13:20 Consult to Cardiology Routine Consulting Provider: Lonnie Estrella Reason for consultation: hfref Has provider been notified: No 06/25/21 09:12 Consult to Urology Routine Consulting Provider: Guillermo Joy Reason for consultation: Hematuria /heparin drip -mechnical mitral valve Has provider been notified: No DS: Diagnosis Discharge Diagnosis (1) Gross hematuria: Status: Acute (2) Epistaxis: Status: Acute (3) Acute congestive heart failure: Status: Acute (4) Anemia: Status: Acute (5) H/O mitral valve replacement: Status: Acute DS: Medications Discharge Medications Home Medications: Home Medications Medication Instructions Recorded Confirmed acetaminophen 325 mg capsule 325 mg PO QID PRN 08/06/20 06/19/21 (Tylenol) vit C 250 mg-vit E 90 mg-zinc 40 1 tab PO BID 08/06/20 06/19/21 mg-copper 1 [id number] capsule (PreserVision AREDS-2) ferrous sulfate 324 mg (65 mg 324 mg PO BID 11/05/20 06/19/21 iron) tablet,delayed release sennosides 8.6 mg tablet 17.2 mg PO BEDTIME PRN 02/05/21 06/19/21 erythromycin 5 mg/gram (0.5 %) eye 5 mg OPHTHALMIC (EYE) DAILY 05/14/21 06/19/21 ointment calcium carbonate 500 mg (1,250 1.5 tab PO DAILY 06/19/21 06/19/21 mg)-vitamin D3 125 unit tablet carvedilol 25 mg tablet (Coreg) 25 mg PO BIDWM 06/19/21 06/19/21 potassium chloride 20 mEq 20 meq PO Q48H 06/19/21 06/19/21 tablet,extended release(part/cryst) (Klor-Con M) warfarin 2.5 mg tablet 1.25 mg PO MOWEFR@1800 06/19/21 06/19/21 warfarin 2.5 mg tablet 2.5 mg PO SUTUTHSA@1800 06/19/21 06/19/21 Previous Rx's Medication Instructions Recorded aspirin 81 mg tablet,delayed 81 mg PO DAILY #90 tab 09/17/20 release levothyroxine 137 mcg tablet 137 mcg PO QAM #90 tab 11/07/20 ascorbic acid (vitamin C) 500 mg 500 mg PO BID #60 cap 01/03/21 capsule,extended release isosorbide dinitrate 5 mg tablet 5 mg PO BID #180 tab 02/28/21 trazodone 50 mg tablet 50 mg PO DAILY PRN #42 tab 04/07/21 omeprazole 20 mg capsule,delayed 20 mg PO DAILY #90 cap 04/26/21 release meclizine 25 mg tablet 25 mg PO TID PRN #5 tab 04/29/21 artifi.tears(hypromellose)(PF) 0.3 1 drp OPHTHALMIC (EYE) Q4-6H PRN 05/16/21 % eye drops #10 ml rosuvastatin 10 mg tablet 10 mg PO DAILY #90 tab 05/16/21 prosthetics #1 ea 05/23/21 fluoxetine 20 mg capsule 20 mg PO DAILY 30 Days #30 cap 06/03/21 cephalexin 500 mg capsule 500 mg PO BID #10 cap 06/16/21 DS: Summary Hospital Course Hospital Course: ? 70 year old women admitted with acute on chronic congestive heart failure with history of systolic heart failure and ICD placement 2014. she also recently had some epistaxis and she is on warfarin for a mitral valve.? She does have a rhino rocket in which is her 2nd one that she had placed this week. Hospital course: Patient admitted to the hospital because of epistaxis and heart failure: The patient was started IV Lasix for heart failure and also received treatment for epistaxis including to rhino rockets. Patient will continue her home Lasix . Her blood pressure was on the borderline so we have adjusted Coreg 18.75 mg b.i.d. blood pressure medication can be adjusted further as per blood pressure outpatient as per PCP. Epistaxis nayak patient is to follow up outpatient with ENT. Patient has mild anemia hemoglobin stable around 8.5 range: Monitor CBC with PCP and further management outpatient as per PCP. Mechanical mitral valve: Patient warfarin resumed on 06/21/21-subsequently patient was bridged with heparin drip/warfarin: INR is therapeutic slightly borderline elevated 3.1 today Of heparin drip since yesterday. Please recheck INR in 2 days hold warfarin for today-further management outpatient as per PCP. Resume aspirin also. Patient going home with VNA. Monitor CBC, BMP, PT INR in next 2-3 days. Above management discussed with the patient in detail length she understand and in agreement with the above plan, time spent 50 minutes and 50% time spent on counseling. Significant findings: As above. Procedures performed: None. Treatment and response: As above. Complications: None. Time Spent with Patient Time attestation: Total time spent providing and/or coordinating discharge services: Discharge coordination time: Greater than 30 minutes Quality: Stroke Does the patient have a stroke diagnosis?: No Physical Exam Vital Signs: Vital Signs: Last Vital Signs Temp 97.7 F 06/26/21 11:47 Pulse 70 06/26/21 11:47 Resp 17 06/26/21 11:47 BP 92/54 L 06/26/21 11:47 Pulse Ox 99 06/26/21 11:47 Body Mass Index 21.1 General: AO X 3, no acute distress HEENT--dry blood in right nose Resp:? CTA bilateral CVS: S1,S2,RRR GI: +BS, NT, no distention Skin: No rash Neuro:? motor grossly intact Psych: appropriate affect DS: Data Data Completed and Pending Labs on day of discharge: Laboratory Results - last 24 hr 06/25/21 06/25/21 06/26/21 12:39 12:55 06:24 WBC RBC Hgb Hct MCV MCH MCHC RDW Plt Count MPV Immature Gran % (Auto) Neut % (Auto) Lymph % (Auto) [place] % (Auto) Eos % (Auto) Baso % (Auto) Lymph # (Auto) [place] # (Auto) Eos # (Auto) Baso # (Auto) Abs Immat Gran (auto) Absolute Neuts (auto) Absolute Nucleated RBC Nucleated RBC % (auto) PT 35.9 H INR 3.1 H PTT (Heparin Protocol) 44.4 L D Urine Color STRAW Urine Appearance CLEAR Urine pH 6.0 Ur Specific [place] 1.015 Urine Protein 2+ H Urine Glucose (UA) NEG Urine Ketones NEG Urine Blood TRACE Urine Nitrite NEG Ur Leukocyte Esterase NEG Urine RBC 0-2 Urine WBC 1-4 Ur Squamous Epith Cells TRACE Ur Renal Epithelial Cell TRACE Urine Bacteria NONE Urine Mucus TRACE 06/26/21 06/26/21 06:24 08:45 WBC 7.9 RBC 2.70 L Hgb 7.7 L 8.6 L Hct 25.2 L 28.6 L MCV 93.3 MCH 28.5 MCHC 30.6 L RDW 17.2 H Plt Count 160 MPV 12.9 H Immature Gran % (Auto) 0.5 H Neut % (Auto) 77.4 H Lymph % (Auto) 9.0 L [place] % (Auto) 11.8 H Eos % (Auto) 1.0 Baso % (Auto) 0.3 Lymph # (Auto) 0.7 L [place] # (Auto) 0.9 Eos # (Auto) 0.1 Baso # (Auto) 0.0 Abs Immat Gran (auto) 0.04 H Absolute Neuts (auto) 6.1 Absolute Nucleated RBC 0.000 Nucleated RBC % (auto) 0.0 PT INR PTT (Heparin Protocol) Urine Color Urine Appearance Urine pH Ur Specific [place] Urine Protein Urine Glucose (UA) Urine Ketones Urine Blood Urine Nitrite Ur Leukocyte Esterase Urine RBC Urine WBC Ur Squamous Epith Cells Ur Renal Epithelial Cell Urine Bacteria Urine Mucus Discharge Plan Discharge Patient Disposition: Home Health Service Discharge Diagnosis: acute on ch chf,epistaxis,Mechnical Mitral valve , ckd Referrals: [facility] [Other] - 1 Week Guillermo Joy MD [Physician] - 1 Week Po,Dakotah Ahumada MD [Primary Care Provider] - 1 Week Lonnie Estrella MD [Physician] - 1 Week (follow up in 2weeks) Discharge Medications: New furosemide [Lasix] 20 mg tablet 20 mg PO QAM Qty: 30 RF: 0 Continued aspirin 81 mg tablet,delayed release (DR/EC) 81 mg PO DAILY Qty: 90 RF: 3 levothyroxine 137 mcg tablet 137 mcg PO QAM Qty: 90 RF: 3 isosorbide dinitrate 5 mg tablet 5 mg PO BID Qty: 180 RF: 3 trazodone 50 mg tablet 50 mg PO DAILY PRN (Reason: for insomnia) Qty: 42 RF: 1 omeprazole 20 mg capsule,delayed release(DR/EC) 20 mg PO DAILY Qty: 90 RF: 2 rosuvastatin 10 mg tablet 10 mg PO DAILY Qty: 90 RF: 2 artifi.tears(hypromellose)(PF) 0.3 % drops 1 drp ophthalmic (eye) Q4-6H PRN (Reason: dry eye(s)) Qty: 10 RF: 1 (DME) prosthetics Kit See Rx Instructions .ROUTE .MEDSUPPLY Qty: 1 RF: 0 fluoxetine 20 mg capsule 20 mg PO DAILY 30 Days Qty: 30 RF: 2 meclizine 25 mg tablet 25 mg PO TID PRN (Reason: dizziness) Qty: 5 RF: 0 potassium chloride [Klor-Con M20] 20 mEq tablet,ER particles/crystals 20 meq PO Q48H RF: 0 warfarin 2.5 mg tablet 1.25 mg PO MOWEFR@1800 RF: 0 warfarin 2.5 mg tablet 2.5 mg PO SUTUTHSA@1800 RF: 0 calcium carbonate-vitamin D3 500 mg(1,250mg) -125 unit Tablet 1.5 tab PO DAILY RF: 0 PreserVision AREDS-2 [id number] [id number]-[id number]-mg capsule 1 tab PO BID RF: 0 acetaminophen [Tylenol] 325 mg capsule 325 mg PO QID PRN (Reason: Pain) RF: 0 erythromycin 5 mg/gram (0.5 %) ointment 5 mg ophthalmic (eye) DAILY RF: 0 ferrous sulfate 324 mg (65 mg iron) tablet,delayed release (DR/EC) 324 mg PO BID RF: 0 ascorbic acid (vitamin C) 500 mg capsule, extended release 500 mg PO BID Qty: 60 RF: 5 sennosides 8.6 mg tablet 17.2 mg PO BEDTIME PRN (Reason: Constipation) RF: 0 Changed carvedilol [Coreg] 25 mg tablet 18.75 mg PO BIDWM Qty: 0 RF: 0 Discontinued cephalexin 500 mg capsule 500 mg PO BID Qty: 10 RF: 0 Discharge Orders: Discharge Order (Routine); Ordered 06/26/21 Ordered By: Hector Hauser Diet: advance to usual diet Activity on Discharge: As tolerated Stand Alone Forms: Patient Portal Discharge page Other Ambulatory Orders: Basic Metabolic Panel Fasting (Routine) Timeframe: 2 Days Facility: [facility] - Location: Laboratory Ordered By: Hector Hauser Complete Blood Count no Diff (Routine) Timeframe: 2 Days Facility: [facility] - Location: Laboratory Ordered By: Hector Hauser Prothrombin Time INR (Routine) Timeframe: 2 Days Facility: [facility] - Location: Laboratory Ordered By: Hector Hauser Care Plan Goals: Patient admitted to the hospital because of epistaxis and heart failure: The patient was started IV Lasix for heart failure and also received treatment for epistaxis including to rhino rockets. Patient will continue her home Lasix 20 mg as per patient , she says she has it at home . Her blood pressure was on the borderline so we have adjusted Coreg 18.75 mg b.i.d.. Epistaxis nayak patient is to follow up outpatient with ENT. Patient has mild anemia hemoglobin stable around 8.5 range: Monitor CBC with PCP and further management outpatient as per PCP. Mechanical mitral valve: Patient warfarin resumed on 06/21/21-subsequently patient was bridged with heparin drip/warfarin: INR is therapeutic slightly borderline elevated 3.1 today Of heparin drip since yesterday. Please recheck INR in 2 days hold warfarin for today-further management outpatient as per PCP. Resume aspirin also. Patient going home with VNA. Health Concerns: as above. Plan of Treatment: As above. Assessment: As above.
--- NOTE | 2021-06-26 14:55 | MHC.CM.PN ---
Patient has been medically cleared for dc to home today with services. ABHAY spoke with [facility]/ Bertha @ [phone], who indicated that [facility] will provide the necessary RN services in the home, NOT [facility]. DC Summary has been faxed to [facility] at [phone].
[2021-06-26] MEDS: Warfarin Sodium 1.25 MG HALFTAB PO (17:35)
== END 2021-06-26 18:43 | disposition home health service (06) | DRG 291 ==
LOC: HO.ED 09:31 → HO.EDOVER 13:31 → HO.IMC 13:49
PROVIDERS: Family Medicine; Internal Medicine; Physician Assistant; Admitting Provider Nurse Practitioner Acute Care; Emergency Provider Emergency Medicine Emergency Medical Services; PCP Internal Medicine; Visit Provider Internal Medicine
DX: I13.0 Hypertensive heart and chronic kidney disease with heart failure and stage 1 through stage 4 chronic kidney disease, or unspecified chronic kidney disease (principal); I50.23 Acute on chronic systolic (congestive) heart failure; N18.4 Chronic kidney disease, stage 4 (severe); N17.9 Acute kidney failure, unspecified; R04.0 Epistaxis; D63.1 Anemia in chronic kidney disease; F39 Unspecified mood [affective] disorder; E03.9 Hypothyroidism, unspecified; R31.0 Gross hematuria; R79.1 Abnormal coagulation profile; Z91.14 Patient's other noncompliance with medication regimen; Z20.822 Contact with and (suspected) exposure to COVID-19; Z95.810 Presence of automatic (implantable) cardiac defibrillator; Z95.2 Presence of prosthetic heart valve; Z79.82 Long term (current) use of aspirin; Z79.890 Hormone replacement therapy; Z79.01 Long term (current) use of anticoagulants; Z79.899 Other long term (current) drug therapy
CPT/HCPCS: 0241U; 36415; 71046; 80048; 81001; 83605; 83880; 85014; 85018; 85025; 85027; 85610; 85730; 86850; 86870; 86885; 86900; 86901; 86902; 86920; 86922; 96374; 99285; J1940

== ENCOUNTER 2021-06-27 14:53 | Outpatient (REF) | payer MEDICARE, SELFPAY ==
[2021-06-27 15:23] LABS: Hematocrit 28.8 % (37-47); Hemoglobin 8.7 g/dl (12.0-16.0); Mean Corpuscular HGB Conc 30.2 g/dl (31.0-35.0); Mean Corpuscular Hemoglobin 28.2 pg (27.0-33.0); Mean Corpuscular Volume 93.5 fL (80-98); Platelet Count 202 X10*3/uL (160-400); Red Blood Count 3.08 X10*6/uL (4.20-5.50); Red Cell Distribution Width 17.3 % (11.0-16.0); White Blood Count 7.7 X10*3/uL (4.8-10.8)
[2021-06-27 15:35] LABS: INTERNATIONAL NORM RATIO 3.2 (0.9-1.1); Prothrombin Time 36.9 SEC (9.9-13.0)
[2021-06-27 15:50] LABS: Anion Gap 16 (12-20); Blood Urea Nitrogen 74 mg/dL (9-16); Calcium 8.3 mg/dL (8.4-10.2); Carbon Dioxide 22 mmol/L (22-29); Chloride 106 mmol/L (96-108); Estimated Glomerular Filt Rate 19; Glucose Fasting 102 mg/dL (60-99); Potassium 5.4 mmol/L (3.3-5.1); Sodium 139 mmol/L (135-145)
== END 2021-06-27 14:54 | disposition home or self-care (01) ==
LOC: HO.LAB 14:53
PROVIDERS: Absent Provider Internal Medicine; PCP Internal Medicine; Visit Provider Internal Medicine
DX: I50.9 Heart failure, unspecified (principal); I48.20 Chronic atrial fibrillation, unspecified; D64.9 Anemia, unspecified; Z95.2 Presence of prosthetic heart valve; Z79.01 Long term (current) use of anticoagulants
CPT/HCPCS: 36415; 80048; 85027; 85610

== ENCOUNTER → 2021-06-28 11:29 | Outpatient (BNVA) | payer MEDICARE, SELFPAY | PROVIDERS: PCP Internal Medicine; Visit Provider Internal Medicine | DX: Z13.89 Encounter for screening for other disorder (principal) | CPT/HCPCS: Q3014 ==

== ENCOUNTER 2021-07-01 13:59 | Outpatient (REF) | payer MEDICARE, SELFPAY ==
[2021-07-01 15:08] LABS: MANUAL DIFF FLAG NO
[2021-07-01 15:14] LABS: Basophils Percent Auto 0.1 % (0-2); Eosinophils Percent Auto 0.4 % (0-4); Hematocrit 28.9 % (37-47); Hemoglobin 8.7 g/dl (12.0-16.0); Imm Gran Abs Auto 0.04 X10*3/uL (0.00-0.03); Imm Gran Pct Auto 0.5 % (0.0-0.4); Lymphocytes Absolute Auto 0.5 X10*3/uL (1.2-4.9); Lymphocytes Percent Auto 6.3 % (20-40); Mean Corpuscular HGB Conc 30.1 g/dl (31.0-35.0); Mean Corpuscular Hemoglobin 28.5 pg (27.0-33.0); Mean Corpuscular Volume 94.8 fL (80-98); Mean Platelet Volume 11.1 fL (9.4-12.3); Monocytes Absolute Auto 0.6 X10*3/uL (0.1-1.2); Neutrophils Absolute Auto 6.4 X10*3/uL (2.0-8.3); Neutrophils Percent Auto 84.7 % (45-73); Platelet Count 220 X10*3/uL (160-400); Red Blood Count 3.05 X10*6/uL (4.20-5.50); Red Cell Distribution Width 17.6 % (11.0-16.0); White Blood Count 7.5 X10*3/uL (4.8-10.8)
[2021-07-01 15:35] LABS: Anion Gap 14 (12-20); Blood Urea Nitrogen 64 mg/dL (9-16); Calcium 8.5 mg/dL (8.4-10.2); Carbon Dioxide 23 mmol/L (22-29); Chloride 109 mmol/L (96-108); Estimated Glomerular Filt Rate 20; Glucose Random 106 mg/dL (60-115); Sodium 141 mmol/L (135-145)
== END 2021-07-01 14:00 | disposition home or self-care (01) ==
LOC: HO.LAB 13:59
PROVIDERS: PCP Internal Medicine; Visit Provider Internal Medicine
DX: I50.22 Chronic systolic (congestive) heart failure (principal)
CPT/HCPCS: 36415; 80048; 85025

== ENCOUNTER → 2021-07-03 10:32 | Outpatient (BNVA) | payer MEDICARE, SELFPAY | PROVIDERS: PCP Internal Medicine; Visit Provider Internal Medicine | DX: Z95.2 Presence of prosthetic heart valve (principal) | CPT/HCPCS: Q3014 ==

== ENCOUNTER → 2021-07-05 14:00 | Outpatient (REF) | payer MEDICARE, SELFPAY ==
--- NOTE | 2021-07-05 14:05 | HM_ITS ---
Basic rhythm is atrial fibrillation with average heart rate of 77 beats per minute. No significant bradycardia noted. Overall good rate control in atrial fibrillation. Periods of regular heart rate are consistent with excellent rate junctional rhythm. Total of 6686 PVCs noted with 3 different morphology consistent with occasional burden with total burden at 1.59%. There were 9 runs of ventricular tachycardia, longest, 19 beats at 134 beats per minute. Patient reported no symptoms MTDD
== END ==
LOC: HO.CARD 14:00
PROVIDERS: Visit Provider Internal Medicine Cardiovascular Disease
DX: I48.20 Chronic atrial fibrillation, unspecified (principal)
CPT/HCPCS: 93225; 93242

== ENCOUNTER 2021-07-09 07:54 | Emergency (ER) | payer MEDICARE, SELFPAY ==
[2021-07-09 08:11] VITALS: BP 108/86; BP 110/82; PULSE 88; PULSE 96; RESP 18; TEMP 36.7; O2SAT 98; BMI 23.8
--- NOTE | 2021-07-09 08:27 | ED.EAR ---
HPI - Ear Problem General Chief complaint: Ear Problems Stated complaint: right ear bleeding, controlled at this time Time Seen by Provider: 07/09/21 08:27 Source: patient and EMS Mode of arrival: EMS Limitations: no limitations History of Present Illness MD Complaint: other (bleeding from L ear after cerumen removal yesterday at ENT) Location: left ear Duration: intermittent Severity: mild Exacerbating factors: nothing Context: other (bleeding after cerumen removal ) Discharge from ear: yes - bloody Treatment prior to arrival: other (packed with gauze) Related Data Home Medications Medication Instructions Recorded Confirmed acetaminophen 325 mg capsule 325 mg PO QID PRN 08/06/20 06/28/21 (Tylenol) vit C 250 mg-vit E 90 mg-zinc 40 1 tab PO BID 08/06/20 06/28/21 mg-copper 1 [id number] capsule (PreserVision AREDS-2) ferrous sulfate 324 mg (65 mg 324 mg PO BID 11/05/20 06/28/21 iron) tablet,delayed release sennosides 8.6 mg tablet 17.2 mg PO BEDTIME PRN 02/05/21 06/28/21 erythromycin 5 mg/gram (0.5 %) eye 5 mg OPHTHALMIC (EYE) DAILY 05/14/21 06/28/21 ointment calcium carbonate 500 mg (1,250 1.5 tab PO DAILY 06/19/21 06/28/21 mg)-vitamin D3 125 unit tablet potassium chloride 20 mEq 20 meq PO Q48H 06/19/21 06/28/21 tablet,extended release(part/cryst) (Klor-Con M) warfarin 2.5 mg tablet 1.25 mg PO MOWEFR@1800 06/19/21 07/03/21 warfarin 2.5 mg tablet 2.5 mg PO SUTUTHSA@1800 06/19/21 07/03/21 Previous Rx's Medication Instructions Recorded aspirin 81 mg tablet,delayed 81 mg PO DAILY #90 tab 09/17/20 release levothyroxine 137 mcg tablet 137 mcg PO QAM #90 tab 11/07/20 ascorbic acid (vitamin C) 500 mg 500 mg PO BID #60 cap 01/03/21 capsule,extended release isosorbide dinitrate 5 mg tablet 5 mg PO BID #180 tab 02/28/21 omeprazole 20 mg capsule,delayed 20 mg PO DAILY #90 cap 04/26/21 release meclizine 25 mg tablet 25 mg PO TID PRN #5 tab 04/29/21 artifi.tears(hypromellose)(PF) 0.3 1 drp OPHTHALMIC (EYE) Q4-6H PRN 05/16/21 % eye drops #10 ml rosuvastatin 10 mg tablet 10 mg PO DAILY #90 tab 05/16/21 prosthetics #1 ea 05/23/21 fluoxetine 20 mg capsule 20 mg PO DAILY 30 Days #30 cap 06/03/21 furosemide 20 mg tablet (Lasix) 20 mg PO QAM #30 tab 06/26/21 trazodone 50 mg tablet 50 mg PO DAILY PRN #90 tab 06/26/21 carvedilol 25 mg tablet (Coreg) 25 mg PO BIDWM 90 Days #180 tab 06/27/21 Allergies Allergy/AdvReac Type Severity Reaction Status Date / Time TAPE,PAPER Allergy Unknown RASH TO Uncoded 05/23/21 09:57 PAPER TAPE Review of Systems Review of Systems: Constitutional : No Fever, No Chills ENT/Mouth : No sore throat, No Rhinorrhea, pos bleeding from L ear Eyes: No Eye Pain, No Swelling, No Redness Cardiovascular : No Chest Pain, No SOB Respiratory : No Cough, No Sputum, No Wheezing Gastrointestinal : No Nausea, No Vomiting, No Diarrhea Genitourinary : No Dysuria, No Urinary Frequency, No Hematuria, Musculoskeletal : No joint pain, No Myalgias, No Joint Swelling Skin : No Skin Lesions, No rash Neuro : No Weakness, No Numbness, No Dizziness, No Headache Psych : No Anxiety/Panic, No Depression [facility] Past Medical History Attestation statement: The following information was validated with the patient. Medical History Amyloidosis Anxiety and depression Arthritis Bladder hypertonicity Chronic atrial fibrillation Chronic HFrEF (heart failure with reduced ejection fraction) Chronic kidney disease (CKD) stage G4/A1, severely decreased glomerular filtration rate (GFR) between 15-29 mL/min/1.73 square meter and albuminuria creatinine ratio less than 30 mg/g Detached retina Gout Heart disease History of breast cancer History of breast cancer HTN (hypertension) Hypercholesterolemia Hypothyroid ICD (implantable cardioverter-defibrillator) in place Ischemic cardiomyopathy Kidney disease Nephrolithiasis Osteoarthritis Overweight (BMI 25.0-29.9) Pulmonary hypertension Thumb tendonitis Tricuspid regurgitation Urinary incontinence Surgical History H/O abdominal hysterectomy H/O mitral valve replacement H/O mitral valve replacement with mechanical valve History of bunionectomy History of cataract surgery History of colonoscopy History of left inguinal hernia repair History of sleeve gastrectomy Family History Family History Mother Diabetes Father Past heart attack Diabetes Sister Parkinsons disease Social History Social History Household Members: None Household Members Other:: brother lives downstairs Housing: Apartment Do you presently have visiting nurse or other home services: No Alcohol intake: never Patient Tobacco Use Status: Never used Tobacco Tobacco use type: Cigarette e-Cigarette/Vaping Use: Never Used Second Hand Smoke Exposure: No Advance Directives: Yes Advance Directives Information Provided: No Advance Directives on File: No service: No Current occupational status: disabled Current occupation: left handed Physical Exam Vital Signs: Vital Signs: Last Vital Signs Temp 98.1 F 07/09/21 08:11 Pulse 88 07/09/21 08:11 Resp 18 07/09/21 08:11 BP 110/82 07/09/21 08:11 Pulse Ox 98 07/09/21 08:11 Body Mass Index 23.8 Appearance: Alert. Oriented X3. No acute distress. Eyes: Pupils equal, round and reactive to light. ENT: Pharynx normal. scant ooze from bleeding abrasion in L ear canal posterior aspect Neck: Normal inspection. Neck supple. CVS: Normal heart rate and rhythm. Pulses normal. Respiratory: No respiratory distress. Breath sounds normal. Abdomen: Soft and nontender. Skin: Skin warm and dry. Normal skin color. Normal skin turgor. Extremities: No lower extremity edema. No calf ttp Neuro: Oriented X 3. No motor deficit. No sensory deficit. Course Course Course Narrative: H/H at baseline no further bleeding since surgicel placement MDM - Ear MDM Narrative Medical decision making narrative: 70 yo female on coumadin here with L ear bleeding post cerumen removal. I can see the site of abrasion - there is no brisk bleeding she has no perforation. I applied a small 1cm patch of surgicel to the ear. Will obtain CBC and INR, refer to ENT if bleeding is controlled, keep surgicel in place x 24 hours. Lab Data Result diagrams: 07/09/21 09:31 07/09/21 09:31 Labs: Lab Results 07/09/21 07/09/21 07/09/21 Range/Units 09:31 09:31 09:31 WBC 6.1 (4.8-10.8) X10*3/uL RBC 2.95 L (4.20-5.50) X10*6/uL Hgb 8.5 L (12.0-16.0) g/dl Hct 27.9 L (37-47) % MCV 94.6 (80-98) fL MCH 28.8 (27.0-33.0) pg MCHC 30.5 L (31.0-35.0) g/dl RDW 18.5 H (11.0-16.0) % Plt Count 166 (160-400) X10*3/uL MPV 10.9 (9.4-12.3) fL Absolute Nucleated RBC 0.000 (0.0-0.012) X10*3/uL Nucleated RBC % (auto) 0.0 (0.0-0.2) /100WBC PT 44.4 H D (9.9-13.0) SEC INR 3.8 H (0.9-1.1) Sodium 137 (135-145) mmol/L Potassium 4.2 (3.3-5.1) mmol/L Chloride 108 (96-108) mmol/L Carbon Dioxide 22 (22-29) mmol/L Anion Gap 11 L (12-20) BUN 47 H (9-16) mg/dL Creatinine 1.99 H (0.5-1.4) mg/dL Estim Creat Clear Calc 24.0 Estimated GFR 25 Random Glucose 140 H (60-115) mg/dL Calcium 8.1 L (8.4-10.2) mg/dL Discharge Plan Discharge Clinical Impression: Bleeding from left ear Patient Disposition: Home, Self-Care Instructions: Earache (ED) Additional Instructions: return to ED for any worsening symptoms or concerns INR 3.8 hold coumadin today call your coumadin clinic or provider the medicated pad in your ear needs to come out in the morning either here or at your ENT doctor Prescriptions: No Action aspirin 81 mg tablet,delayed release (DR/EC) 81 mg PO DAILY Qty: 90 RF: 3 levothyroxine 137 mcg tablet 137 mcg PO QAM Qty: 90 RF: 3 isosorbide dinitrate 5 mg tablet 5 mg PO BID Qty: 180 RF: 3 omeprazole 20 mg capsule,delayed release(DR/EC) 20 mg PO DAILY Qty: 90 RF: 2 rosuvastatin 10 mg tablet 10 mg PO DAILY Qty: 90 RF: 2 artifi.tears(hypromellose)(PF) 0.3 % drops 1 drp ophthalmic (eye) Q4-6H PRN (Reason: dry eye(s)) Qty: 10 RF: 1 (DME) prosthetics Kit See Rx Instructions .ROUTE .MEDSUPPLY Qty: 1 RF: 0 fluoxetine 20 mg capsule 20 mg PO DAILY 30 Days Qty: 30 RF: 2 trazodone 50 mg tablet 50 mg PO DAILY PRN (Reason: for insomnia) Qty: 90 RF: 1 carvedilol [Coreg] 25 mg tablet 25 mg PO BIDWM 90 Days Qty: 180 RF: 3 meclizine 25 mg tablet 25 mg PO TID PRN (Reason: dizziness) Qty: 5 RF: 0 potassium chloride [Klor-Con M20] 20 mEq tablet,ER particles/crystals 20 meq PO Q48H RF: 0 warfarin 2.5 mg tablet 1.25 mg PO MOWEFR@1800 RF: 0 warfarin 2.5 mg tablet 2.5 mg PO SUTUTHSA@1800 RF: 0 calcium carbonate-vitamin D3 500 mg(1,250mg) -125 unit Tablet 1.5 tab PO DAILY RF: 0 furosemide [Lasix] 20 mg tablet 20 mg PO QAM Qty: 30 RF: 0 PreserVision AREDS-2 [id number] fe-bovv-[id number]-mg capsule 1 tab PO BID RF: 0 acetaminophen [Tylenol] 325 mg capsule 325 mg PO QID PRN (Reason: Pain) RF: 0 erythromycin 5 mg/gram (0.5 %) ointment 5 mg ophthalmic (eye) DAILY RF: 0 ferrous sulfate 324 mg (65 mg iron) tablet,delayed release (DR/EC) 324 mg PO BID RF: 0 ascorbic acid (vitamin C) 500 mg capsule, extended release 500 mg PO BID Qty: 60 RF: 5 sennosides 8.6 mg tablet 17.2 mg PO BEDTIME PRN (Reason: Constipation) RF: 0 Referrals: Omero Harris [Physician] - 1 day
[2021-07-09 09:39] LABS: Hematocrit 27.9 % (37-47); Hemoglobin 8.5 g/dl (12.0-16.0); Mean Corpuscular HGB Conc 30.5 g/dl (31.0-35.0); Mean Corpuscular Hemoglobin 28.8 pg (27.0-33.0); Mean Corpuscular Volume 94.6 fL (80-98); Mean Platelet Volume 10.9 fL (9.4-12.3); Platelet Count 166 X10*3/uL (160-400); Red Blood Count 2.95 X10*6/uL (4.20-5.50); Red Cell Distribution Width 18.5 % (11.0-16.0); White Blood Count 6.1 X10*3/uL (4.8-10.8)
[2021-07-09 09:45] LABS: INTERNATIONAL NORM RATIO 3.8 (0.9-1.1); Prothrombin Time 44.4 SEC (9.9-13.0)
[2021-07-09 10:00] VITALS: BP 106/65; PULSE 51; RESP 18; TEMP 37; O2SAT 100
[2021-07-09 10:02] LABS: Anion Gap 11 (12-20); Blood Urea Nitrogen 47 mg/dL (9-16); Calcium 8.1 mg/dL (8.4-10.2); Carbon Dioxide 22 mmol/L (22-29); Chloride 108 mmol/L (96-108); Estimated Glomerular Filt Rate 25; Glucose Random 140 mg/dL (60-115); Potassium 4.2 mmol/L (3.3-5.1); Sodium 137 mmol/L (135-145)
[2021-07-09 11:24] VITALS: BP 128/61; PULSE 89; RESP 15; TEMP 37; O2SAT 98
== END 2021-07-09 11:31 | disposition home or self-care (01) ==
PROVIDERS: Emergency Provider Emergency Medicine; PCP Internal Medicine
DX: H92.22 Otorrhagia, left ear (principal); I48.20 Chronic atrial fibrillation, unspecified; I13.0 Hypertensive heart and chronic kidney disease with heart failure and stage 1 through stage 4 chronic kidney disease, or unspecified chronic kidney disease; N18.4 Chronic kidney disease, stage 4 (severe); I50.9 Heart failure, unspecified; Z95.2 Presence of prosthetic heart valve; Z79.01 Long term (current) use of anticoagulants
CPT/HCPCS: 36415; 80048; 85027; 85610; 99283; Q3014

== ENCOUNTER → 2021-07-10 11:54 | Outpatient (BNVA) | payer MEDICARE, SELFPAY | PROVIDERS: PCP Internal Medicine; Visit Provider Internal Medicine | DX: Z95.2 Presence of prosthetic heart valve (principal); Z51.81 Encounter for therapeutic drug level monitoring; Z79.01 Long term (current) use of anticoagulants | CPT/HCPCS: Q3014 ==

== ENCOUNTER → 2021-07-12 14:32 | Outpatient (BNVA) | payer MEDICARE, SELFPAY | PROVIDERS: PCP Internal Medicine; Visit Provider Internal Medicine | DX: Z95.2 Presence of prosthetic heart valve (principal); Z51.81 Encounter for therapeutic drug level monitoring; Z79.01 Long term (current) use of anticoagulants | CPT/HCPCS: Q3014 ==

== ENCOUNTER 2021-07-16 13:48 | Outpatient (REF) | payer MEDICARE, SELFPAY ==
[2021-07-16 17:07] LABS: MANUAL DIFF FLAG NO
[2021-07-16 17:11] LABS: Basophils Percent Auto 0.2 % (0-2); Eosinophils Percent Auto 0.5 % (0-4); Hemoglobin 9.3 g/dl (12.0-16.0); Imm Gran Abs Auto 0.01 X10*3/uL (0.00-0.03); Imm Gran Pct Auto 0.2 % (0.0-0.4); Lymphocytes Absolute Auto 0.5 X10*3/uL (1.2-4.9); Lymphocytes Percent Auto 9.3 % (20-40); Mean Corpuscular Hemoglobin 28.9 pg (27.0-33.0); Mean Corpuscular Volume 96.3 fL (80-98); Mean Platelet Volume 11.8 fL (9.4-12.3); Monocytes Absolute Auto 0.5 X10*3/uL (0.1-1.2); Monocytes Percent Auto 9.9 % (2-11); Neutrophils Absolute Auto 4.4 X10*3/uL (2.0-8.3); Neutrophils Percent Auto 79.9 % (45-73); Platelet Count 157 X10*3/uL (160-400); Red Blood Count 3.22 X10*6/uL (4.20-5.50); Red Cell Distribution Width 18.9 % (11.0-16.0); White Blood Count 5.5 X10*3/uL (4.8-10.8)
[2021-07-16 17:14] LABS: INTERNATIONAL NORM RATIO 4.8 (0.9-1.1); Prothrombin Time 56.4 SEC (9.9-13.0)
[2021-07-16 17:28] LABS: Anion Gap 15 (12-20); Blood Urea Nitrogen 62 mg/dL (9-16); Calcium 8.3 mg/dL (8.4-10.2); Carbon Dioxide 18 mmol/L (22-29); Chloride 110 mmol/L (96-108); Estimated Glomerular Filt Rate 17; Glucose Random 87 mg/dL (60-115); Potassium 4.9 mmol/L (3.3-5.1); Sodium 138 mmol/L (135-145)
== END 2021-07-16 13:49 | disposition home or self-care (01) ==
LOC: HO.LAB 13:48
PROVIDERS: PCP Internal Medicine; Visit Provider Internal Medicine
DX: I50.22 Chronic systolic (congestive) heart failure (principal); Z95.2 Presence of prosthetic heart valve; Z51.81 Encounter for therapeutic drug level monitoring; Z79.01 Long term (current) use of anticoagulants
CPT/HCPCS: 36415; 80048; 85025; 85610; Q3014

== ENCOUNTER → 2021-07-17 11:54 | Outpatient (BNVA) | payer MEDICARE, SELFPAY | PROVIDERS: PCP Internal Medicine; Visit Provider Internal Medicine | DX: I48.20 Chronic atrial fibrillation, unspecified (principal); I25.10 Atherosclerotic heart disease of native coronary artery without angina pectoris; I50.22 Chronic systolic (congestive) heart failure; I25.5 Ischemic cardiomyopathy; Z95.810 Presence of automatic (implantable) cardiac defibrillator; Z95.1 Presence of aortocoronary bypass graft; Z95.2 Presence of prosthetic heart valve; Z79.899 Other long term (current) drug therapy; Z79.01 Long term (current) use of anticoagulants; Z51.81 Encounter for therapeutic drug level monitoring | CPT/HCPCS: 99212; Q3014 ==

== ENCOUNTER → 2021-07-19 14:53 | Outpatient (BNVA) | payer MEDICARE, SELFPAY | PROVIDERS: PCP Internal Medicine; Visit Provider Internal Medicine | DX: Z95.2 Presence of prosthetic heart valve (principal) | CPT/HCPCS: Q3014 ==

== ENCOUNTER 2021-07-22 11:35 | Outpatient (REF) | payer MEDICARE, SELFPAY ==
[2021-07-22 14:25] LABS: MANUAL DIFF FLAG NO
[2021-07-22 14:35] LABS: Hemoglobin 10.1 g/dl (12.0-16.0); White Blood Count 5.8 X10*3/uL (4.8-10.8)
[2021-07-22 14:49] LABS: Basophils Percent Auto 0.5 % (0-2); Eosinophils Absolute Auto 0.1 X10*3/uL (0.0-0.4); Eosinophils Percent Auto 1.4 % (0-4); Hematocrit 33.6 % (37-47); Imm Gran Abs Auto 0.01 X10*3/uL (0.00-0.03); Imm Gran Pct Auto 0.2 % (0.0-0.4); Lymphocytes Absolute Auto 0.5 X10*3/uL (1.2-4.9); Mean Corpuscular HGB Conc 30.1 g/dl (31.0-35.0); Mean Corpuscular Hemoglobin 28.3 pg (27.0-33.0); Mean Corpuscular Volume 94.1 fL (80-98); Mean Platelet Volume 11.6 fL (9.4-12.3); Monocytes Absolute Auto 0.6 X10*3/uL (0.1-1.2); Monocytes Percent Auto 9.6 % (2-11); Neutrophils Absolute Auto 4.6 X10*3/uL (2.0-8.3); Neutrophils Percent Auto 79.3 % (45-73); Platelet Count 130 X10*3/uL (160-400); Red Blood Count 3.57 X10*6/uL (4.20-5.50); Red Cell Distribution Width 18.2 % (11.0-16.0)
[2021-07-22 14:50] LABS: Anion Gap 13 (12-20); Blood Urea Nitrogen 49 mg/dL (9-16); Calcium 8.4 mg/dL (8.4-10.2); Carbon Dioxide 21 mmol/L (22-29); Chloride 110 mmol/L (96-108); Estimated Glomerular Filt Rate 20; Glucose Random 90 mg/dL (60-115); Potassium 4.9 mmol/L (3.3-5.1); Sodium 139 mmol/L (135-145)
== END 2021-07-22 11:36 | disposition home or self-care (01) ==
LOC: HO.LAB 11:35
PROVIDERS: Absent Provider Internal Medicine; PCP Internal Medicine; Visit Provider Internal Medicine
DX: I50.22 Chronic systolic (congestive) heart failure (principal); N18.4 Chronic kidney disease, stage 4 (severe); Z95.2 Presence of prosthetic heart valve; Z51.81 Encounter for therapeutic drug level monitoring; Z79.01 Long term (current) use of anticoagulants
CPT/HCPCS: 36415; 80048; 85025; Q3014

== ENCOUNTER → 2021-07-25 11:15 | Outpatient (BNVA) | payer MEDICARE, SELFPAY | PROVIDERS: PCP Internal Medicine; Visit Provider Internal Medicine ==

== ENCOUNTER 2021-07-29 13:05 | Outpatient (REF) | payer MEDICARE, SELFPAY ==
[2021-07-29 17:57] LABS: MANUAL DIFF FLAG NO
[2021-07-29 18:03] LABS: Basophils Percent Auto 0.3 % (0-2); Eosinophils Percent Auto 0.6 % (0-4); Hematocrit 34.4 % (37-47); Hemoglobin 10.3 g/dl (12.0-16.0); Imm Gran Abs Auto 0.01 X10*3/uL (0.00-0.03); Imm Gran Pct Auto 0.2 % (0.0-0.4); Lymphocytes Absolute Auto 0.6 X10*3/uL (1.2-4.9); Lymphocytes Percent Auto 10.3 % (20-40); Mean Corpuscular HGB Conc 29.9 g/dl (31.0-35.0); Mean Corpuscular Hemoglobin 28.9 pg (27.0-33.0); Mean Corpuscular Volume 96.4 fL (80-98); Mean Platelet Volume 12.9 fL (9.4-12.3); Monocytes Absolute Auto 0.5 X10*3/uL (0.1-1.2); Monocytes Percent Auto 8.3 % (2-11); Neutrophils Percent Auto 80.3 % (45-73); Platelet Count 147 X10*3/uL (160-400); Red Blood Count 3.57 X10*6/uL (4.20-5.50); Red Cell Distribution Width 17.6 % (11.0-16.0); White Blood Count 6.2 X10*3/uL (4.8-10.8)
[2021-07-29 18:09] LABS: Anion Gap 15 (12-20); Blood Urea Nitrogen 52 mg/dL (9-16); Calcium 8.9 mg/dL (8.4-10.2); Carbon Dioxide 22 mmol/L (22-29); Chloride 107 mmol/L (96-108); Estimated Glomerular Filt Rate 19; Glucose Random 85 mg/dL (60-115); Potassium 4.6 mmol/L (3.3-5.1); Sodium 139 mmol/L (135-145)
== END 2021-07-29 13:06 | disposition home or self-care (01) ==
LOC: HO.LAB 13:05
PROVIDERS: Absent Provider Internal Medicine; PCP Internal Medicine; Visit Provider Internal Medicine
DX: I50.22 Chronic systolic (congestive) heart failure (principal); Z95.2 Presence of prosthetic heart valve; Z51.81 Encounter for therapeutic drug level monitoring; Z79.01 Long term (current) use of anticoagulants
CPT/HCPCS: 36415; 80048; 85025; Q3014

== ENCOUNTER 2021-08-05 14:50 | Outpatient (REF) | payer MEDICARE, SELFPAY ==
[2021-08-05 16:52] LABS: MANUAL DIFF FLAG NO
[2021-08-05 17:02] LABS: Basophils Percent Auto 0.2 % (0-2); Eosinophils Absolute Auto 0.1 X10*3/uL (0.0-0.4); Hematocrit 35.2 % (37-47); Hemoglobin 10.6 g/dl (12.0-16.0); Imm Gran Abs Auto 0.02 X10*3/uL (0.00-0.03); Imm Gran Pct Auto 0.3 % (0.0-0.4); Lymphocytes Absolute Auto 0.5 X10*3/uL (1.2-4.9); Lymphocytes Percent Auto 7.3 % (20-40); Mean Corpuscular HGB Conc 30.1 g/dl (31.0-35.0); Mean Corpuscular Hemoglobin 28.7 pg (27.0-33.0); Mean Corpuscular Volume 95.4 fL (80-98); Mean Platelet Volume 11.6 fL (9.4-12.3); Monocytes Absolute Auto 0.4 X10*3/uL (0.1-1.2); Neutrophils Absolute Auto 5.3 X10*3/uL (2.0-8.3); Neutrophils Percent Auto 84.2 % (45-73); Platelet Count 122 X10*3/uL (160-400); Red Blood Count 3.69 X10*6/uL (4.20-5.50); Red Cell Distribution Width 17.8 % (11.0-16.0); White Blood Count 6.3 X10*3/uL (4.8-10.8)
[2021-08-05 17:18] LABS: Anion Gap 16 (12-20); Blood Urea Nitrogen 64 mg/dL (9-16); Calcium 8.5 mg/dL (8.4-10.2); Carbon Dioxide 19 mmol/L (22-29); Chloride 109 mmol/L (96-108); Estimated Glomerular Filt Rate 17; Glucose Random 105 mg/dL (60-115); Potassium 5.2 mmol/L (3.3-5.1); Sodium 139 mmol/L (135-145)
== END 2021-08-05 14:51 | disposition home or self-care (01) ==
LOC: HO.LAB 14:50
PROVIDERS: Absent Provider Internal Medicine; PCP Internal Medicine; Visit Provider Internal Medicine
DX: I50.22 Chronic systolic (congestive) heart failure (principal); Z95.2 Presence of prosthetic heart valve; Z51.81 Encounter for therapeutic drug level monitoring; Z79.01 Long term (current) use of anticoagulants
CPT/HCPCS: 36415; 80048; 85025; Q3014

== ENCOUNTER 2021-08-12 14:22 | Outpatient (REF) | payer MEDICARE, SELFPAY ==
[2021-08-12 15:07] LABS: Appearance Urine CLEAR; Color Urine YELLOW; Glucose Urine UA NEG (NEG); Leukocyte Esterase Urine 1+ (NEG); Nitrite Urine NEG (NEG); Specific Gravity - Urine 1.025 (1.005-1.025); Urine Blood TRACE (NEG); Urine Ketones NEG (NEG); Urine Protein 3+ MG/DL (NEG-TRACE)
[2021-08-12 15:07] LABS: Basophils Percent Auto 0.3 % (0-2); Eosinophils Percent Auto 0.7 % (0-4); Hematocrit 34.4 % (37-47); Hemoglobin 10.2 g/dl (12.0-16.0); Imm Gran Abs Auto 0.02 X10*3/uL (0.00-0.03); Imm Gran Pct Auto 0.3 % (0.0-0.4); Lymphocytes Absolute Auto 0.5 X10*3/uL (1.2-4.9); Lymphocytes Percent Auto 9.1 % (20-40); MANUAL DIFF FLAG NO; Mean Corpuscular HGB Conc 29.7 g/dl (31.0-35.0); Mean Corpuscular Hemoglobin 28.3 pg (27.0-33.0); Mean Corpuscular Volume 95.3 fL (80-98); Monocytes Absolute Auto 0.5 X10*3/uL (0.1-1.2); Monocytes Percent Auto 8.9 % (2-11); Neutrophils Absolute Auto 4.8 X10*3/uL (2.0-8.3); Neutrophils Percent Auto 80.7 % (45-73); Platelet Count 132 X10*3/uL (160-400); Red Blood Count 3.61 X10*6/uL (4.20-5.50); Red Cell Distribution Width 17.8 % (11.0-16.0)
[2021-08-12 15:31] LABS: Bacteria Urine TRACE /LPF; Squamous Epithelial Cell Urine TRACE /LPF
[2021-08-12 15:57] LABS: Anion Gap 14 (12-20); Blood Urea Nitrogen 56 mg/dL (9-16); Calcium 8.5 mg/dL (8.4-10.2); Carbon Dioxide 20 mmol/L (22-29); Chloride 112 mmol/L (96-108); Estimated Glomerular Filt Rate 18; Glucose Random 110 mg/dL (60-115); Potassium 4.8 mmol/L (3.3-5.1); Sodium 141 mmol/L (135-145)
== END 2021-08-12 14:23 | disposition home or self-care (01) ==
LOC: HO.LABR 14:22
PROVIDERS: Internal Medicine; PCP Internal Medicine; Visit Provider Internal Medicine
DX: I50.22 Chronic systolic (congestive) heart failure (principal); N18.4 Chronic kidney disease, stage 4 (severe); Z95.2 Presence of prosthetic heart valve; Z51.81 Encounter for therapeutic drug level monitoring; Z79.01 Long term (current) use of anticoagulants
CPT/HCPCS: 36415; 80048; 81001; 85025; Q3014

== ENCOUNTER → 2021-08-20 10:13 | Outpatient (BNVA) | payer MEDICARE, SELFPAY | PROVIDERS: PCP Internal Medicine; Visit Provider Internal Medicine | DX: Z95.2 Presence of prosthetic heart valve (principal); Z51.81 Encounter for therapeutic drug level monitoring; Z79.01 Long term (current) use of anticoagulants | CPT/HCPCS: Q3014 ==

== ENCOUNTER 2021-08-23 12:44 | Outpatient (REF) | payer MEDICARE, SELFPAY ==
[2021-08-23 14:52] LABS: MANUAL DIFF FLAG NO
[2021-08-23 15:03] LABS: Basophils Percent Auto 0.3 % (0-2); Eosinophils Percent Auto 0.3 % (0-4); Imm Gran Abs Auto 0.01 X10*3/uL (0.00-0.03); Imm Gran Pct Auto 0.2 % (0.0-0.4); Lymphocytes Absolute Auto 0.4 X10*3/uL (1.2-4.9); Lymphocytes Percent Auto 6.5 % (20-40); Mean Corpuscular HGB Conc 29.7 g/dl (31.0-35.0); Mean Corpuscular Hemoglobin 27.6 pg (27.0-33.0); Mean Platelet Volume 11.5 fL (9.4-12.3); Monocytes Absolute Auto 0.4 X10*3/uL (0.1-1.2); Monocytes Percent Auto 6.6 % (2-11); Neutrophils Absolute Auto 5.5 X10*3/uL (2.0-8.3); Neutrophils Percent Auto 86.1 % (45-73); Platelet Count 119 X10*3/uL (160-400); Red Blood Count 3.98 X10*6/uL (4.20-5.50); Red Cell Distribution Width 17.5 % (11.0-16.0); White Blood Count 6.3 X10*3/uL (4.8-10.8)
[2021-08-23 15:27] LABS: Anion Gap 16 (12-20); Blood Urea Nitrogen 56 mg/dL (9-16); Calcium 8.7 mg/dL (8.4-10.2); Carbon Dioxide 21 mmol/L (22-29); Chloride 107 mmol/L (96-108); Estimated Glomerular Filt Rate 17; Glucose Random 91 mg/dL (60-115); Potassium 4.7 mmol/L (3.3-5.1); Sodium 139 mmol/L (135-145)
[2021-08-23 17:40] LABS: Urine Cytology See Pathology rpt
== END 2021-08-23 12:45 | disposition home or self-care (01) ==
LOC: HO.LAB 12:44
PROVIDERS: Absent Provider Internal Medicine; PCP Internal Medicine
DX: I50.22 Chronic systolic (congestive) heart failure (principal); R31.9 Hematuria, unspecified; R31.0 Gross hematuria; Z95.2 Presence of prosthetic heart valve; Z51.81 Encounter for therapeutic drug level monitoring; Z79.01 Long term (current) use of anticoagulants
CPT/HCPCS: 36415; 80048; 85025; 85610; 88112; 99202; 99211

== ENCOUNTER 2021-08-26 12:23 | Outpatient (REF) | payer MEDICARE, SELFPAY ==
[2021-08-26 13:04] LABS: Imm Gran Abs Auto 0.02 X10*3/uL (0.00-0.03); MANUAL DIFF FLAG SCAN; Monocytes Absolute Auto 0.4 X10*3/uL (0.1-1.2); Monocytes Percent Auto 7.2 % (2-11); SCAN SMEAR FLAG 1
[2021-08-26 13:06] LABS: Basophils Percent Auto 0.5 % (0-2); Eosinophils Percent Auto 0.5 % (0-4); Hematocrit 34.7 % (37-47); Hemoglobin 10.8 g/dl (12.0-16.0); Imm Gran Pct Auto 0.3 % (0.0-0.4); Lymphocytes Absolute Auto 0.4 X10*3/uL (1.2-4.9); Lymphocytes Percent Auto 6.1 % (20-40); Mean Corpuscular HGB Conc 31.1 g/dl (31.0-35.0); Mean Corpuscular Hemoglobin 28.3 pg (27.0-33.0); Mean Corpuscular Volume 91.1 fL (80-98); Mean Platelet Volume 11.9 fL (9.4-12.3); Neutrophils Absolute Auto 4.9 X10*3/uL (2.0-8.3); Neutrophils Percent Auto 85.4 % (45-73); Platelet Count 108 X10*3/uL (160-400); Red Blood Count 3.81 X10*6/uL (4.20-5.50); Red Cell Distribution Width 17.6 % (11.0-16.0); White Blood Count 5.7 X10*3/uL (4.8-10.8)
[2021-08-26 13:11] LABS: PLT ABN DIST 1
[2021-08-26 13:23] LABS: Anion Gap 15 (12-20); Blood Urea Nitrogen 62 mg/dL (9-16); Calcium 8.6 mg/dL (8.4-10.2); Carbon Dioxide 20 mmol/L (22-29); Chloride 107 mmol/L (96-108); Estimated Glomerular Filt Rate 13; Glucose Random 102 mg/dL (60-115); Potassium 4.7 mmol/L (3.3-5.1); Sodium 137 mmol/L (135-145)
== END 2021-08-26 12:24 | disposition home or self-care (01) ==
LOC: HO.LABR 12:23
PROVIDERS: PCP Internal Medicine; Visit Provider Internal Medicine
DX: I50.22 Chronic systolic (congestive) heart failure (principal)
CPT/HCPCS: 36415; 80048; 85025; Q3014

== ENCOUNTER 2021-08-28 13:36 | Outpatient (REF) | payer MEDICARE, SELFPAY ==
[2021-08-28 14:06] LABS: Basophils Percent Auto 0.3 % (0-2); Hemoglobin 10.5 g/dl (12.0-16.0); MANUAL DIFF FLAG SCAN; Mean Corpuscular Volume 91.4 fL (80-98); PLT CLUMP 1; Red Cell Distribution Width 17.5 % (11.0-16.0); SCAN SMEAR FLAG 1
[2021-08-28 14:08] LABS: Eosinophils Absolute Auto 0.1 X10*3/uL (0.0-0.4); Eosinophils Percent Auto 0.9 % (0-4); Imm Gran Abs Auto 0.03 X10*3/uL (0.00-0.03); Imm Gran Pct Auto 0.4 % (0.0-0.4); Lymphocytes Absolute Auto 0.4 X10*3/uL (1.2-4.9); Lymphocytes Percent Auto 6.3 % (20-40); Mean Corpuscular HGB Conc 30.9 g/dl (31.0-35.0); Mean Corpuscular Hemoglobin 28.2 pg (27.0-33.0); Mean Platelet Volume 12.1 fL (9.4-12.3); Monocytes Absolute Auto 0.4 X10*3/uL (0.1-1.2); Monocytes Percent Auto 6.1 % (2-11); Neutrophils Absolute Auto 5.9 X10*3/uL (2.0-8.3); Platelet Count 109 X10*3/uL (160-400); Red Blood Count 3.72 X10*6/uL (4.20-5.50); White Blood Count 6.9 X10*3/uL (4.8-10.8)
[2021-08-28 14:31] LABS: Anion Gap 14 (12-20); Blood Urea Nitrogen 60 mg/dL (9-16); Calcium 8.4 mg/dL (8.4-10.2); Carbon Dioxide 19 mmol/L (22-29); Chloride 108 mmol/L (96-108); Estimated Glomerular Filt Rate 14; Glucose Random 109 mg/dL (60-115); Potassium 5.2 mmol/L (3.3-5.1); Sodium 136 mmol/L (135-145)
== END 2021-08-28 13:37 | disposition home or self-care (01) ==
LOC: HO.LAB 13:36
PROVIDERS: PCP Internal Medicine; Visit Provider Internal Medicine
DX: I50.33 Acute on chronic diastolic (congestive) heart failure (principal); I50.22 Chronic systolic (congestive) heart failure
CPT/HCPCS: 36415; 80048; 85025

== ENCOUNTER → 2021-08-29 09:43 | Outpatient (BNVA) | payer MEDICARE, SELFPAY | PROVIDERS: PCP Internal Medicine; Visit Provider Internal Medicine | DX: Z95.2 Presence of prosthetic heart valve (principal) | CPT/HCPCS: Q3014 ==

== ENCOUNTER → 2021-09-02 13:41 | Outpatient (BNVA) | payer MEDICARE, SELFPAY | PROVIDERS: PCP Internal Medicine; Referring Provider Internal Medicine; Visit Provider Internal Medicine Cardiovascular Disease | DX: Z45.02 Encounter for adjustment and management of automatic implantable cardiac defibrillator (principal); I48.20 Chronic atrial fibrillation, unspecified; I50.22 Chronic systolic (congestive) heart failure; Z95.2 Presence of prosthetic heart valve | CPT/HCPCS: 99212 ==

== ENCOUNTER → 2021-09-03 10:00 | Outpatient (BNVA) | payer MEDICARE, SELFPAY | PROVIDERS: PCP Internal Medicine; Visit Provider Internal Medicine | DX: Z95.2 Presence of prosthetic heart valve (principal) | CPT/HCPCS: Q3014 ==

== ENCOUNTER 2021-09-03 13:43 | Inpatient (IN) | payer MEDICARE, SELFPAY ==
--- NOTE | ~2021-09-03 | XR_ITS ---
EXAMINATION: XR CHEST, 2 VIEWS CLINICAL INFORMATION: Leg swelling. COMPARISON: 06/19/2021 TECHNIQUE: AP upright and lateral views of the chest were obtained. FINDINGS: Right pectoral AICD is present with leads terminating in the right ventricle. Surgical clips and sternal wires overlie the chest. Cardiac silhouette remains markedly enlarged. There is a small to moderate size right pleural effusion which is new as compared to prior. No left-sided effusion. There is pulmonary venous congestion along with mild interstitial pulmonary edema. No focal airspace consolidation is identified, though there is likely atelectasis in the right lower lobe and associated consolidation in this region would be difficult to exclude. Bones are osteopenic. No acute fractures. XR/XR chest 2V IMPRESSION: Cardiomegaly with pulmonary venous congestion, mild interstitial edema, and a small to moderate size right pleural effusion, consistent with CHF.
--- NOTE | ~2021-09-03 | CT_ITS ---
EXAMINATION: CT FEMUR WITHOUT CONTRAST, RIGHT CLINICAL INFORMATION: Right medial thigh ecchymosis COMPARISON: CT abdomen pelvis 05/23/2021 TECHNIQUE: Noncontrast volume acquisition CT through the right femur was performed. Additional 2-D coronal and sagittal reformatted images and axial 3-D maximum intensity projection MIP images are generated on the CT workstation. This CT examination was performed using dose optimization techniques as appropriate, variously including the following: *Automated exposure control *Adjustment of mA and/or kV according to patient size (this includes techniques or standardized protocols for targeted exams where dose is matched to indication/reason for exam; i.e. extremities or head) *Use of iterative reconstruction technique DLP: 403 mGy-cm FINDINGS: Degenerative changes are present in the right hip with femoral acetabular narrowing, sclerosis and subchondral cyst formation. No fractures are seen. The femur is otherwise unremarkable without evidence of fracture or bony destructive lesion. Subcutaneous edema is seen bilaterally slightly greater in the right leg medially. No gross hematoma is present. There are probable superficial varices present. Multiple surgical clips are present in the mid thigh medially. Arterial vascular calcifications are seen. CT/CT femur RT wo con IMPRESSION: Aside from degenerative changes in the hip, no femoral abnormality is seen. No fractures are detected. No large hematoma is seen. Subcutaneous fat subcutaneous edema noted bilaterally with probable superficial varicosity on the right.
--- NOTE | ~2021-09-03 | US_ITS ---
EXAMINATION: US VENOUS ULTRASOUND WITH DOPPLER LOWER EXTREMITY, RIGHT CLINICAL INFORMATION: Right lower extremity pain and edema COMPARISON.: 09/13/2018-left leg TECHNIQUE: Ultrasound of the deep veins is performed from the hip to the calf with compression sonography and color and pulse Doppler assessment. Spectral analysis with color-flow imaging is performed. FINDINGS: There is normal venous compression and respiratory variation and augmented flow. The visualized common femoral vein, superficial femoral vein, profunda femoral vein, popliteal vein, and the trifurcation region shows no evidence of deep venous thrombosis. There is no significant popliteal fossa cyst. An minimally enlarged lymph node is present in the right groin measuring 1.3 x 3.8 x 0.7 cm. A similar appearing node was seen on the left on the 09/13/2018 study. The skin in the popliteal fossa is markedly edematous. If the patient's symptoms persist, followup ultrasound in 5 days 7 days might be of value to exclude proximal propagation from a non-visualized calf vein. US/US venous duplex LE RT IMPRESSION: No DVT demonstrated in the right lower extremity.
[2021-09-03 13:48] VITALS: BP 117/66; PULSE 60; RESP 16; TEMP 36.3; O2SAT 100; BMI 24.0
--- NOTE | 2021-09-03 14:53 | ECG_ITS ---
Test Reason : extremity injury Blood Pressure : / mmHG Vent. Rate : 060 BPM Atrial Rate : 063 BPM P-R Int : 000 ms QRS Dur : 188 ms QT Int : 572 ms P-R-T Axes : 000 -52 117 degrees QTc Int : 572 ms Ventricular-paced rhythm Abnormal ECG When compared with ECG of 18-JUN-2021 10:57, Electronic ventricular pacemaker has replaced Junctional rhythm T wave inversion no longer evident in Lateral leads Referred By: Raquel Grimes Electronically Signed By:GUNNER WATTS MD
[2021-09-03 15:01] VITALS: BP 121/65; PULSE 60; RESP 20; TEMP 36.6; O2SAT 100
--- NOTE | 2021-09-03 15:10 | ED_ITS ---
HPI - General Adult General Chief complaint: Extremity Injury, Lower Stated complaint: rt leg swelling & pain Time Seen by Provider: 09/03/21 13:55 Source: patient and family Mode of arrival: wheelchair Limitations: no limitations History of Present Illness HPI narrative: 70 y/o female with history of CKD, ischemic cardiomyopathyHFrEF on lasix 40 mg BID, s/p mechanical mitral valve replacement on Coumadin, atrial fibrillation, s/p PPM/ICD, hyperlipidemia, hypothyroidism here with complaints of right leg swelling which she noticed this morning with waking. No known injury or trauma. Per daughter she knows the inside of the right thigh was swollen, felt warm to touch and appeared red. She also feels like both of her legs are more swollen since yesterday and when she weight her today she had gained 4 lb. She is currently on 20 mg of Lasix daily. She denies any increasing shortness of breath or chest pain. Related Data Home Medications Medication Instructions Recorded Confirmed acetaminophen 325 mg capsule 325 mg PO QID PRN 08/06/20 09/03/21 (Tylenol) vit C 250 mg-vit E 90 mg-zinc 40 1 tab PO BID 08/06/20 09/03/21 mg-copper 1 [id number] capsule (PreserVision AREDS-2) ferrous sulfate 324 mg (65 mg 324 mg PO BID 11/05/20 09/03/21 iron) tablet,delayed release erythromycin 5 mg/gram (0.5 %) eye 5 mg OPHTHALMIC (EYE) DAILY 05/14/21 09/03/21 ointment calcium carbonate 500 mg (1,250 1.5 tab PO DAILY 06/19/21 09/03/21 mg)-vitamin D3 125 unit tablet potassium chloride 20 mEq 20 meq PO Q48H 06/19/21 09/03/21 tablet,extended release(part/cryst) (Klor-Con M) warfarin 2.5 mg tablet 1.25 mg PO MOWEFR@1800 06/19/21 09/03/21 warfarin 2.5 mg tablet 2.5 mg PO SUTUTHSA@1800 06/19/21 09/03/21 [id number]-[id number]-[id number] 3.5 5 drp OTIC (EARS) BID 07/16/21 09/03/21 mg/mL-10,000 unit/mL-1 % ear solution docusate sodium 100 mg capsule 100 mg PO DAILY 08/09/21 09/03/21 ammonium lactate 12 % topical cream 1 appl TOPICAL BID 08/12/21 09/03/21 Previous Rx's Medication Instructions Recorded aspirin 81 mg tablet,delayed 81 mg PO DAILY #90 tab 09/17/20 release ascorbic acid (vitamin C) 500 mg 500 mg PO BID #60 cap 01/03/21 capsule,extended release isosorbide dinitrate 5 mg tablet 5 mg PO BID #180 tab 02/28/21 omeprazole 20 mg capsule,delayed 20 mg PO DAILY #90 cap 04/26/21 release meclizine 25 mg tablet 25 mg PO TID PRN #5 tab 04/29/21 artifi.tears(hypromellose)(PF) 0.3 1 drp OPHTHALMIC (EYE) Q4-6H PRN 05/16/21 % eye drops #10 ml rosuvastatin 10 mg tablet 10 mg PO DAILY #90 tab 05/16/21 prosthetics #1 ea 05/23/21 fluoxetine 20 mg capsule 20 mg PO DAILY 30 Days #30 cap 06/03/21 trazodone 50 mg tablet 50 mg PO DAILY PRN #90 tab 06/26/21 carvedilol 25 mg tablet (Coreg) 25 mg PO BIDWM 90 Days #180 tab 06/27/21 levothyroxine 137 mcg tablet 137 mcg PO QAM #90 tab 07/26/21 furosemide 20 mg tablet (Lasix) 20 mg PO QAM 90 Days #90 tab 07/30/21 JUXTA LITe compression #2 ea 07/31/21 walker #1 ea 08/22/21 Allergies Allergy/AdvReac Type Severity Reaction Status Date / Time TAPE,PAPER Allergy Unknown RASH TO Uncoded 09/03/21 10:01 PAPER TAPE Review of Systems Review of Systems: Yes all other systems are reviewed and are negative Constitutional: Constitutional: Reports no additional constitutional complaints, Denies body ache(s), Denies chills, Denies fever(s), Denies headache(s) and Denies weakness Eyes: Eyes: Reports no additional eye complaints and Denies change in vision ENT: Reports system reviewed and no additional complaints, except as documented, Denies dizziness, Denies headache(s), Denies nasal congestion, Denies nasal discharge and Denies neck pain Cardiovascular: Cardiovascular: Reports no additional cardiovascular complaints, Denies chest pain, Reports leg edema and Reports dyspnea (chronic ) Respiratory: Respiratory: Reports no additional respiratory complaints, Reports cough (chronic ) and Reports dyspnea (chronic ) Gastrointestinal: Gastrointestinal: Reports no additional gastrointestinal complaints, Denies abdominal pain, Denies diarrhea, Denies nausea and Denies vomiting Genitourinary: Genitourinary: Reports no additional female genitourinary complaints and Denies urinary incontinence Musculoskeletal: Musculoskeletal: Reports no additional musculoskeletal complaints, Denies back pain, Denies arthralgias, Denies joint swelling, Denies neck pain, Denies numbness and Denies tingling Integumentary/Breasts: Skin/Breast: Reports system reviewed and no additional complaints, except as docu and Denies rash Neurologic: Reports system reviewed and no additional complaints, except as documented, Denies Abnormal speech present, Denies dizziness, Denies headache(s), Denies numbness, Denies tingling and Denies weakness PMFSH Past Medical History Attestation statement: The following information was validated with the patient. Source: old records reviewed and nursing notes reviewed Medical History Amyloidosis Anxiety and depression Arthritis Bladder hypertonicity Chronic atrial fibrillation Chronic HFrEF (heart failure with reduced ejection fraction) Chronic kidney disease (CKD) stage G4/A1, severely decreased glomerular filtration rate (GFR) between 15-29 mL/min/1.73 square meter and albuminuria creatinine ratio less than 30 mg/g Detached retina Gout Heart disease History of breast cancer History of breast cancer HTN (hypertension) Hypercholesterolemia Hypothyroid ICD (implantable cardioverter-defibrillator) in place Ischemic cardiomyopathy Kidney disease Nephrolithiasis Osteoarthritis Overweight (BMI 25.0-29.9) Pulmonary hypertension Thumb tendonitis Tricuspid regurgitation Urinary incontinence Surgical History H/O abdominal hysterectomy H/O mitral valve replacement H/O mitral valve replacement with mechanical valve History of bunionectomy History of cataract surgery History of colonoscopy History of left inguinal hernia repair History of sleeve gastrectomy Family History Family History Mother Diabetes Father Past heart attack Diabetes Sister Parkinsons disease Social History Social History Household Members: None Household Members Other:: brother lives downstairs Housing: Apartment Do you presently have visiting nurse or other home services: No Alcohol intake: never Patient Tobacco Use Status: Never used Tobacco Tobacco use type: Cigarette e-Cigarette/Vaping Use: Never Used Second Hand Smoke Exposure: No Advance Directives: No Advance Directives Information Provided: Yes service: No Current occupational status: disabled Current occupation: left handed Physical Exam Vital Signs: Vital Signs: Last Vital Signs Temp 97.8 F 09/03/21 15:01 Pulse 60 09/03/21 15:56 Resp 18 09/03/21 15:56 BP 123/60 09/03/21 15:56 Pulse Ox 96 09/03/21 15:56 Body Mass Index 24.0 Const: General: cooperative, healthy appearing, comfortable and no acute distress Orientation/consciousness: patient oriented x3 Limitations: no limitations HENMT: Head: Yes normal to inspection Ears: hearing grossly normal bilaterally General nose exam: Normal external nose present Face and sinus: Yes normal facial exam Mouth: Normal oral and palatal mucosa present Throat: Yes posterior oropharynx normal Eyes: General: appearance normal, both eyes and all related structures Pupils: Equal, round and reactive pupils present Neck: Neck: Yes normal visual inspection Chest: Chest palpation & inspection: normal inspection of the chest Resp: Effort & Inspection: normal respiratory effort Auscultation: clear to auscultation bilaterally Cardio: Rate: regular rate Rhythm: regular rhythm Peripheral pulses: Peripheral pulses 2+ throughout GI: Inspection: Yes normal to inspection Palpation (GI): Soft to palpation and nontender Auscultation: normal bowel sounds Back/Spine/Pelvis: Thoracic/Lumbar Spine: thoracic and lumbar spine normal to inspection Skin: General skin exam: no rashes or lesions noted Neuro: General: patient oriented x3, no focal motor deficits and normal sensation to monofilament Cranial nerves: Yes Equal, round and reactive pupils present Cognition (Neuro): normal cognition Speech: No Abnormal speech present Gait exam (Neuro): Normal gait present Motor exam (neuro): 5/5 motor strength present throughout Extrem: Other: 3+ pitting edema to bilateral lower extremities To the right inner thigh around a healed surgical incision site there is ecchymosis. There is some mild swelling in the thigh but the compartments are compressible. There is no warmth or redness. DP and PT pulses 2+ right lower extremity General: Yes normal to inspection Course Course Course Narrative: 71-year-old female here with complaints of bilateral lower extremity swelling with a 4 lb weight gain in the last 2 days. No increasing shortness of breath or chest pain or cough. On exam she does have 3+ lower ex tremity pitting edema. Will check chest x-ray, EKG, labs including BNP. Additionally she is complaining of right leg swelling which is worsened in the last leg and she has some concern for some swelling of the thigh. Family was concerned that it appeared red and warm. On exam there is an area of ecchymosis and some swelling but no warmth or redness. The compartments are soft and compressible. Will check ultrasound. 1754-BNP increased from previous. Clinically patient appears to be in fluid lower lobe. Will order 40 mg of IV Lasix. Patient is also noted to have a mildly increased potassium with no EKG changes. Will order p.o. Kayexalate. Renal function is at baseline. Imaging is pending. Patient will likely require admission for diuresis. 1814-ultrasound is negative for DVT. Likely patient has a hematoma the right thigh but the areas are compressible. Will place Adrien wrap. Chest x-ray still pending. Repeat troponin pending. Less likely ACS with no chest pain or EKG changes. Discussed with patient and family. Will require admission for diuresis. Signed out to night team pending about. Did speak to Dr Quinonez from medicine. Deferred to night team for admission (Dr Francisco)/ Medical Decision Making Medical Records Medical records reviewed: Yes I reviewed the patient's medical records. Lab Data Lab results reviewed: Yes I reviewed the patient's lab results. Result diagrams: 09/03/21 15:55 09/03/21 15:55 Labs: Lab Results 09/03/21 09/03/21 09/03/21 Range/Units 15:55 15:55 15:55 WBC 5.4 (4.8-10.8) X10*3/uL RBC 3.49 L (4.20-5.50) X10*6/uL Hgb 9.9 L (12.0-16.0) g/dl Hct 32.5 L (37-47) % MCV 93.1 (80-98) fL MCH 28.4 (27.0-33.0) pg MCHC 30.5 L (31.0-35.0) g/dl RDW 18.3 H (11.0-16.0) % Plt Count 108 L (160-400) X10*3/uL MPV Not Reportable Immature Gran % (Auto) 0.4 (0.0-0.4) % Neut % (Auto) 83.6 H (45-73) % Lymph % (Auto) 7.4 L (20-40) % [place] % (Auto) 7.7 (2-11) % Eos % (Auto) 0.7 (0-4) % Baso % (Auto) 0.2 (0-2) % Lymph # (Auto) 0.4 L (1.2-4.9) X10*3/uL [place] # (Auto) 0.4 (0.1-1.2) X10*3/uL Eos # (Auto) 0.0 (0.0-0.4) X10*3/uL Baso # (Auto) 0.0 (0.0-0.2) X10*3/uL Abs Immat Gran (auto) 0.02 (0.00-0.03) X10*3/uL Absolute Neuts (auto) 4.5 (2.0-8.3) X10*3/uL Absolute Nucleated RBC 0.000 (0.0-0.012) X10*3/uL Nucleated RBC % (auto) 0.0 (0.0-0.2) /100WBC PT (9.9-13.0) SEC INR (0.9-1.1) Sodium 137 (135-145) mmol/L Potassium 5.8 H (3.3-5.1) mmol/L Chloride 109 H (96-108) mmol/L Carbon Dioxide 18 L (22-29) mmol/L Anion Gap 16 (12-20) BUN 72 H (9-16) mg/dL Creatinine 3.30 H (0.5-1.4) mg/dL Estim Creat Clear Calc 16.6 Estimated GFR 14 Random Glucose 88 (60-115) mg/dL Calcium 8.3 L (8.4-10.2) mg/dL Total Bilirubin 0.8 (0.0-1.0) mg/dL AST 26 (5-31) U/L ALT 23 (0-31) U/L Alkaline Phosphatase 143 H (39-117) U/L Troponin I High Sens 483.0 H* (<3.5-17.0) ng/L B-Natriuretic Peptide (<100) pg/mL Total Protein 6.8 (6.5-8.0) g/dL Albumin 3.4 L (3.5-5.0) g/dL 09/03/21 09/03/21 Range/Units 15:55 15:56 WBC (4.8-10.8) X10*3/uL RBC (4.20-5.50) X10*6/uL Hgb (12.0-16.0) g/dl Hct (37-47) % MCV (80-98) fL MCH (27.0-33.0) pg MCHC (31.0-35.0) g/dl RDW (11.0-16.0) % Plt Count (160-400) X10*3/uL MPV Immature Gran % (Auto) (0.0-0.4) % Neut % (Auto) (45-73) % Lymph % (Auto) (20-40) % [place] % (Auto) (2-11) % Eos % (Auto) (0-4) % Baso % (Auto) (0-2) % Lymph # (Auto) (1.2-4.9) X10*3/uL [place] # (Auto) (0.1-1.2) X10*3/uL Eos # (Auto) (0.0-0.4) X10*3/uL Baso # (Auto) (0.0-0.2) X10*3/uL Abs Immat Gran (auto) (0.00-0.03) X10*3/uL Absolute Neuts (auto) (2.0-8.3) X10*3/uL Absolute Nucleated RBC (0.0-0.012) X10*3/uL Nucleated RBC % (auto) (0.0-0.2) /100WBC PT 25.6 H (9.9-13.0) SEC INR 2.2 H (0.9-1.1) Sodium (135-145) mmol/L Potassium (3.3-5.1) mmol/L Chloride (96-108) mmol/L Carbon Dioxide (22-29) mmol/L Anion Gap (12-20) BUN (9-16) mg/dL Creatinine (0.5-1.4) mg/dL Estim Creat Clear Calc Estimated GFR Random Glucose (60-115) mg/dL Calcium (8.4-10.2) mg/dL Total Bilirubin (0.0-1.0) mg/dL AST (5-31) U/L ALT (0-31) U/L Alkaline Phosphatase (39-117) U/L Troponin I High Sens (<3.5-17.0) ng/L B-Natriuretic Peptide 1240 H (<100) pg/mL Total Protein (6.5-8.0) g/dL Albumin (3.5-5.0) g/dL Imaging Data Venous US: Attestation: I personally reviewed and interpreted this imaging study as follows: Radiologist's impression: FINDINGS: There is normal venous compression and respiratory variation and augmented flow. The visualized common femoral vein, superficial femoral vein, profunda femoral vein, popliteal vein, and the trifurcation region shows no evidence of deep venous thrombosis. ? There is no significant popliteal fossa cyst. An minimally enlarged lymph node is present in the right groin measuring 1.3 x 3.8 x 0.7 cm. A similar appearing node was seen on the left on the 09/13/2018 study. The skin in the popliteal fossa is markedly edematous. If the patient's symptoms persist, followup ultrasound in 5 days 7 days might be of value to exclude proximal propagation from a non-visualized calf vein. US/US venous duplex LE RT IMPRESSION: No DVT demonstrated in the right lower extremity. ECG Data Attestation: I personally reviewed and interpreted this ECG as follows: Interpretation: The paced rhythm with a rate of 60 Discharge Plan Discharge Clinical Impression: Chronic kidney disease (CKD) stage G4/A1, severely decreased glomerular filtrat ion rate (GFR) between 15-29 mL/min/1.73 square meter and albuminuria creatinine ratio less than 30 mg/g, Chronic HFrEF (heart failure with reduced ejection fraction), Anemia, Elevated troponin Patient Disposition: Admitted As Inpatient Prescriptions: No Action aspirin 81 mg tablet,delayed release (DR/EC) 81 mg PO DAILY Qty: 90 RF: 3 isosorbide dinitrate 5 mg tablet 5 mg PO BID Qty: 180 RF: 3 omeprazole 20 mg capsule,delayed release(DR/EC) 20 mg PO DAILY Qty: 90 RF: 2 rosuvastatin 10 mg tablet 10 mg PO DAILY Qty: 90 RF: 2 artifi.tears(hypromellose)(PF) 0.3 % drops 1 drp ophthalmic (eye) Q4-6H PRN (Reason: dry eye(s)) Qty: 10 RF: 1 (DME) prosthetics Kit See Rx Instructions .ROUTE .MEDSUPPLY Qty: 1 RF: 0 fluoxetine 20 mg capsule 20 mg PO DAILY 30 Days Qty: 30 RF: 2 trazodone 50 mg tablet 50 mg PO DAILY PRN (Reason: for insomnia) Qty: 90 RF: 1 carvedilol [Coreg] 25 mg tablet 25 mg PO BIDWM 90 Days Qty: 180 RF: 3 levothyroxine 137 mcg tablet 137 mcg PO QAM Qty: 90 RF: 3 furosemide [Lasix] 20 mg tablet 20 mg PO QAM 90 Days Qty: 90 RF: 2 (DME) JUXTA LITe compression See Rx Instructions .Route .MEDSUPPLY Qty: 2 RF: 0 docusate sodium 100 mg capsule 100 mg PO DAILY RF: 0 (DME) walker Misc See Rx Instructions .Route Qty: 1 RF: 0 meclizine 25 mg tablet 25 mg PO TID PRN (Reason: dizziness) Qty: 5 RF: 0 potassium chloride [Klor-Con M20] 20 mEq tablet,ER particles/crystals 20 meq PO Q48H RF: 0 warfarin 2.5 mg tablet 1.25 mg PO MOWEFR@1800 RF: 0 warfarin 2.5 mg tablet 2.5 mg PO SUTUTHSA@1800 RF: 0 calcium carbonate-vitamin D3 500 mg(1,250mg) -125 unit Tablet 1.5 tab PO DAILY RF: 0 PreserVision AREDS-2 [id number] um-zeoo-up-mg capsule 1 tab PO BID RF: 0 acetaminophen [Tylenol] 325 mg capsule 325 mg PO QID PRN (Reason: Pain) RF: 0 erythromycin 5 mg/gram (0.5 %) ointment 5 mg ophthalmic (eye) DAILY RF: 0 cpdwqzuu-szrqxkeuq-JQ 3.5-10,000-1 mg/mL-unit/mL-% solution 5 drp otic (ears) BID RF: 0 ferrous sulfate 324 mg (65 mg iron) tablet,delayed release (DR/EC) 324 mg PO BID RF: 0 ascorbic acid (vitamin C) 500 mg capsule, extended release 500 mg PO BID Qty: 60 RF: 5 ammonium lactate 12 % cream 1 appl topical BID RF: 0
[2021-09-03 15:56] VITALS: BP 123/60; PULSE 60; RESP 18; O2SAT 96
[2021-09-03 16:15] LABS: Basophils Percent Auto 0.2 % (0-2); Hemoglobin 9.9 g/dl (12.0-16.0); Imm Gran Abs Auto 0.02 X10*3/uL (0.00-0.03); Imm Gran Pct Auto 0.4 % (0.0-0.4); SCAN SMEAR FLAG 1
[2021-09-03 16:17] LABS: Eosinophils Percent Auto 0.7 % (0-4); Hematocrit 32.5 % (37-47); Lymphocytes Absolute Auto 0.4 X10*3/uL (1.2-4.9); Lymphocytes Percent Auto 7.4 % (20-40); Mean Corpuscular HGB Conc 30.5 g/dl (31.0-35.0); Mean Corpuscular Hemoglobin 28.4 pg (27.0-33.0); Mean Corpuscular Volume 93.1 fL (80-98); Monocytes Absolute Auto 0.4 X10*3/uL (0.1-1.2); Monocytes Percent Auto 7.7 % (2-11); Neutrophils Absolute Auto 4.5 X10*3/uL (2.0-8.3); Neutrophils Percent Auto 83.6 % (45-73); Platelet Count 108 X10*3/uL (160-400); Red Blood Count 3.49 X10*6/uL (4.20-5.50); Red Cell Distribution Width 18.3 % (11.0-16.0); White Blood Count 5.4 X10*3/uL (4.8-10.8)
[2021-09-03 16:18] LABS: MANUAL DIFF FLAG NO; PLT ABN DIST 1
[2021-09-03 16:22] LABS: INTERNATIONAL NORM RATIO 2.2 (0.9-1.1); Prothrombin Time 25.6 SEC (9.9-13.0)
[2021-09-03 16:36] LABS: B Type Natriuretic Peptide 1240 pg/mL (<100)
[2021-09-03 16:42] LABS: Alanine Aminotransferase 23 U/L (0-31); Albumin Level 3.4 g/dL (3.5-5.0); Alkaline Phosphatase 143 U/L (39-117); Anion Gap 16 (12-20); Aspartate Amino Transferase 26 U/L (5-31); Bilirubin Total 0.8 mg/dL (0.0-1.0); Blood Urea Nitrogen 72 mg/dL (9-16); Calcium 8.3 mg/dL (8.4-10.2); Carbon Dioxide 18 mmol/L (22-29); Chloride 109 mmol/L (96-108); Creatinine Clr Calc Pharmacy 16.6; Estimated Glomerular Filt Rate 14; Glucose Random 88 mg/dL (60-115); Potassium 5.8 mmol/L (3.3-5.1); Sodium 137 mmol/L (135-145); Total Protein 6.8 g/dL (6.5-8.0)
[2021-09-03] MEDS: Furosemide 40 MG/4 ML VIAL IVPUSH (18:40)
[2021-09-03] MEDS: Sodium Polystyrene Sulfon/Sorb 15 GM/60 ML ORAL.SUSP 30 GM PO (18:40)
[2021-09-03 18:48] VITALS: BP 122/62; PULSE 60; RESP 18; O2SAT 99
[2021-09-03 19:06] LABS: Troponin-I High Sensitivity 625.6 ng/L (<3.5-17.0)
[2021-09-03 19:21] LABS: Appearance Urine CLEAR; Color Urine YELLOW; Glucose Urine UA NEG (NEG); Leukocyte Esterase Urine 1+ (NEG); Nitrite Urine NEG (NEG); PH 5.5 (5.0-8.0); Specific Gravity - Urine 1.025 (1.005-1.025); UACC Culture Trigger YES; Urine Blood TRACE (NEG); Urine Ketones NEG (NEG); Urine Protein 2+ MG/DL (NEG-TRACE)
[2021-09-03 19:32] LABS: Bacteria Urine 1+ /LPF; RBC Urine 0-2 /HPF (0); Squamous Epithelial Cell Urine 1+ /LPF
--- NOTE | 2021-09-03 19:32 | P.HPHOSP_ITS ---
History of Present Illness Date of Service: 09/03/21 Chief Complaint: legswelling 70-year-old female with a past medical history of hypertension, hyperlipidemia, CAD, CHF with reduced ejection fraction, status post AICD/pacemaker, CKD, hypothyroidism, pulmonary hypertension, history of mechanical mitral and aortic valve-on Coumadin; history of retinal detachment; history of bladder cancer, amyloidosis, arthritis, anxiety, depression, obesity presented to the hospital with a chief complaint of leg swelling. Patient reported that over the past 1 day she noted to have increased leg swelling on her right lower extremity; denies any fevers and chills. Complains of mild erythema. Patient daughter mentioned that about a week ago patient was on Bactrim for urinary tract infection; since that she had elevated creatinine over the past few days and has been following with a PCP who is adjusting her Lasix dose. Denies having any redness on the medial side of the thigh the day before. Imaging started today. And also complains of weight gain/leg swelling more on the right leg. Denies any fall or trauma. Patient denies any chest pain palpitations lightheadedness or dizziness. Reports that she has been complaint with her home medications including Coumadin. Denies any nausea vomiting or diarrhea. Denies any urinary symptoms. Review of all other systems is negative except mentioned above ER course: Per ER team patient noted to have right lower extremity ecchymosis on the thigh; head scan at stable; no signs of cellulitis; chest x-ray showed congestion consistent with CHF. Given Lasix. Admitted to the hospital for further management. EKG was paced. Patient denied any chest pain. Patient has c hronically high troponins. [facility] Medical History Amyloidosis Anxiety and depression Arthritis Bladder hypertonicity Chronic atrial fibrillation Chronic HFrEF (heart failure with reduced ejection fraction) Chronic kidney disease (CKD) stage G4/A1, severely decreased glomerular filtration rate (GFR) between 15-29 mL/min/1.73 square meter and albuminuria creatinine ratio less than 30 mg/g Detached retina Gout Heart disease History of breast cancer History of breast cancer HTN (hypertension) Hypercholesterolemia Hypothyroid ICD (implantable cardioverter-defibrillator) in place Ischemic cardiomyopathy Kidney disease Nephrolithiasis Osteoarthritis Overweight (BMI 25.0-29.9) Pulmonary hypertension Thumb tendonitis Tricuspid regurgitation Urinary incontinence Family History Mother Diabetes Father Past heart attack Diabetes Sister Parkinsons disease Pertinent family history: as above Surgical History H/O abdominal hysterectomy H/O mitral valve replacement H/O mitral valve replacement with mechanical valve History of bunionectomy History of cataract surgery History of colonoscopy History of left inguinal hernia repair History of sleeve gastrectomy Social History Household Members: None Household Members Other:: brother lives downstairs Housing: Apartment Do you presently have visiting nurse or other home services: No Alcohol intake: never Patient Tobacco Use Status: Never used Tobacco Tobacco use type: Cigarette e-Cigarette/Vaping Use: Never Used Second Hand Smoke Exposure: No Advance Directives: No Advance Directives Information Provided: Yes service: No Current occupational status: disabled Current occupation: left handed Meds Allergies Allergy/AdvReac Type Severity Reaction Status Date / Time TAPE,PAPER Allergy Unknown RASH TO Uncoded 09/03/21 10:01 PAPER TAPE Active Medications: Current Medications Acetaminophen (Acetaminophen 325 Mg Tablet) 650 mg PO Q6H PRN PRN Reason: Pain, Mild (Pain Scale 1-3) Senna (Sennosides 8.6 Mg Tablet) 17.2 mg PO BEDTIME PRN PRN Reason: Constipation Sodium Chloride (0.9 % Sodium Chloride Flush 3 Ml Syringe) [facility] Medications Medication Instructions Recorded Confirmed Last Taken Type acetaminophen 325 mg capsule 325 mg PO QID PRN 08/06/20 09/03/21 Unknown History (Tylenol) vit C 250 mg-vit E 90 mg-zinc 40 1 tab PO BID 08/06/20 09/03/21 09/03/21 History mg-copper 1 ja-mifbao-dagjyt capsule (PreserVision AREDS-2) ferrous sulfate 324 mg (65 mg 324 mg PO BID 11/05/20 09/03/21 09/03/21 History iron) tablet,delayed release potassium chloride 20 mEq 20 meq PO Q48H 06/19/21 09/03/21 09/03/21 History tablet,extended release(part/cryst) (Klor-Con M) warfarin 2.5 mg tablet 1.25 mg PO SUTUTHSA@1800 06/19/21 09/03/21 09/01/21 History warfarin 2.5 mg tablet 2.5 mg PO MOWEFR@1800 06/19/21 09/03/21 09/02/21 History docusate sodium 100 mg capsule 200 mg PO BEDTIME 08/09/21 09/03/21 09/02/21 History artifi.tears(hypromellose)(PF) 0.3 1 drp OPHTHALMIC (EYE) TID 09/03/21 09/03/21 09/03/21 History % eye drops calcium 250 mg tablet 750 mg PO DAILY 09/03/21 09/03/21 09/03/21 History Physical Exam Vital Signs and Narrative: Vital Signs: Last Vital Signs Temp 97.8 F 09/03/21 15:01 Pulse 60 09/03/21 18:48 Resp 18 09/03/21 18:48 BP 122/62 09/03/21 18:48 Pulse Ox 99 09/03/21 18:48 Body Mass Index 24.0 Gen: Appears be in no acute distress HEENT: NCAT, Moist mucosa. Pulmonary: Crackles present in the bilateral lower rothman CVS: Normal S1-S2 Abdomen: BS+, Soft, Nontender Extremities: Warm well perfused; 2+ pitting edema; Neuro: Alert and awake. Results Labs CBC and Chem 7: 09/03/21 15:55 09/03/21 15:55 Labs: Laboratory Results - last 24 hr 09/03/21 09/03/21 09/03/21 15:55 15:55 15:55 MCV 93.1 MCH 28.4 MCHC 30.5 L RDW 18.3 H Plt Count 108 L MPV Not Reportable Immature Gran % (Auto) 0.4 Neut % (Auto) 83.6 H Lymph % (Auto) 7.4 L [place] % (Auto) 7.7 Eos % (Auto) 0.7 Baso % (Auto) 0.2 Lymph # (Auto) 0.4 L [place] # (Auto) 0.4 Eos # (Auto) 0.0 Baso # (Auto) 0.0 Abs Immat Gran (auto) 0.02 Absolute Neuts (auto) 4.5 Absolute Nucleated RBC 0.000 Nucleated RBC % (auto) 0.0 PT INR Anion Gap 16 Estim Creat Clear Calc 16.6 Estimated GFR 14 Random Glucose 88 Calcium 8.3 L Total Bilirubin 0.8 AST 26 ALT 23 Alkaline Phosphatase 143 H Troponin I High Sens 483.0 H* B-Natriuretic Peptide Total Protein 6.8 Albumin 3.4 L Urine Color Urine Appearance Urine pH Ur Specific [place] Urine Protein Urine Glucose (UA) Urine Ketones Urine Blood Urine Nitrite Ur Leukocyte Esterase 09/03/21 09/03/21 09/03/21 15:55 15:56 18:30 MCV MCH MCHC RDW Plt Count MPV Immature Gran % (Auto) Neut % (Auto) Lymph % (Auto) [place] % (Auto) Eos % (Auto) Baso % (Auto) Lymph # (Auto) [place] # (Auto) Eos # (Auto) Baso # (Auto) Abs Immat Gran (auto) Absolute Neuts (auto) Absolute Nucleated RBC Nucleated RBC % (auto) PT 25.6 H INR 2.2 H Anion Gap Estim Creat Clear Calc Estimated GFR Random Glucose Calcium Total Bilirubin AST ALT Alkaline Phosphatase Troponin I High Sens 625.6 H* B-Natriuretic Peptide 1240 H Total Protein Albumin Urine Color Urine Appearance Urine pH Ur Specific [place] Urine Protein Urine Glucose (UA) Urine Ketones Urine Blood Urine Nitrite Ur Leukocyte Esterase 09/03/21 19:10 MCV MCH MCHC RDW Plt Count MPV Immature Gran % (Auto) Neut % (Auto) Lymph % (Auto) [place] % (Auto) Eos % (Auto) Baso % (Auto) Lymph # (Auto) [place] # (Auto) Eos # (Auto) Baso # (Auto) Abs Immat Gran (auto) Absolute Neuts (auto) Absolute Nucleated RBC Nucleated RBC % (auto) PT INR Anion Gap Estim Creat Clear Calc Estimated GFR Random Glucose Calcium Total Bilirubin AST ALT Alkaline Phosphatase Troponin I High Sens B-Natriuretic Peptide Total Protein Albumin Urine Color YELLOW Urine Appearance CLEAR Urine pH 5.5 Ur Specific [place] 1.025 Urine Protein 2+ H Urine Glucose (UA) NEG Urine Ketones NEG Urine Blood TRACE Urine Nitrite NEG Ur Leukocyte Esterase 1+ H Imaging Radiologist's Impressions: Impressions Venous Duplex 09/03/21 14:53 IMPRESSION: No DVT demonstrated in the right lower extremity. Chest X-Ray 09/03/21 16:59 IMPRESSION: Cardiomegaly with pulmonary venous congestion, mild interstitial edema, and a small to moderate size right pleural effusion, consistent with CHF. Assessment and Plan (1) Acute on chronic heart failure with preserved ejection fraction: Status: Acute (2) Chronic kidney disease (CKD) stage G4/A1, severely decreased glomerular filtration rate (GFR) between 15-29 mL/min/1.73 square meter and albuminuria cr eatinine ratio less than 30 mg/g: Status: Acute 70-year-old female with a past medical history of hypertension, hyperlipidemia, CAD, CHF with reduced ejection fraction, status post AICD/pacemaker, CKD, hypothyroidism, pulmonary hypertension, history of mechanical mitral and aortic valve-on Coumadin; history of retinal detachment; history of bladder cancer, amyloidosis, arthritis, anxiety, depression, obesity presented to the hospital with a chief complaint of leg swelling. Leg swelling: Likely in the setting of CHF. Less concern for cellulitis. Will continue to monitor for now. Venous duplex negative in the ER. Ecchymosis-noted on medial side of right thigh. patient denies any trauma or fall. H&H stable. Compartments are soft and compressible. will obtain CT right thigh. Acute on chronic systolic CHF:reports 4 lbs weight gain 1 day. b/l leg swelling- more on right side. Echo 09/2020: ? 1. Moderately dilated left ventricle with severe LV systolic?dysfunction with LVEF of 15-20%?? Will keep the patient on Lasix 20 mg IV BID Daily weights and I's and O's Telemetry Patient has chronically elevated troponins-likely in the setting of demand/reduced clearance from renal insufficiency. Denies any chest pain. EKG paced. Cardiology follow-up. Continue home aspirin, Coreg, Imdur. ALIZA on CKD: ?cardiorenal Creatinine 2.8; today 3.3; Monitor renal function. Hyperkalemia: pt was bactrim recently; pt also on Kcl suppl at home. monitor levels; EKG -paced. Homld trae kcl supplementation. Renal consult. History of mechanical mitral wall: Patient on Coumadin. INR is 2.2. Will give extra dose of Coumadin Patient takes 1.25 mg of Coumadin on Thursday. And takes 2.5 mg of Coumadin on Thursday. received 2.5 mg today morning as INR noted to be 2.0 at home per daughter Zaira. and mentioned 2.5mg tomorrow and 1.25 the following day. Will hold off Lovenox given concerns for ecchymosis.(explained risks/benefits to pt/pt's daughter; expressed agreement to plan) History of hypothyroidism: Continue home levothyroxine History of hypertension/hyperlipidemia: Continue home Coreg/Imdur/statin DVT prophylaxis: Patient on Coumadin Code status: Full code Quality Stroke Does the patient have a stroke diagnosis?: No VTE Prior VTE?: No VTE Risk Level:: Medical - moderate - high VTE Device Contraindication: Treatment Not Indicated VTE Drug Contraindication: Treatment Not Indicated
[2021-09-03 23:23] LABS: COVID-19 Test Negative (Negative); IDNOW Serial# 9DD0AD1C
[2021-09-03 23:27] VITALS: BP 119/56; PULSE 60; RESP 16; TEMP 36.6; O2SAT 98
[2021-09-04] VITALS (7 sets, daily range): BP systolic 105–135; BP diastolic 55–87; PULSE 58–79; RESP 12–18; TEMP 36.3–37.1; O2SAT 96–99; BMI 24.1
[2021-09-04] MEDS: 0.9 % Sodium Chloride Flush 3 ML SYRINGE IVFLUSH ×3 (01:04→17:13)
[2021-09-04] MEDS: Omeprazole 20 MG CAPSULE.DR PO (05:36)
[2021-09-04] MEDS: Levothyroxine Sodium 112 MCG TABLET PO (05:36)
[2021-09-04] MEDS: Levothyroxine Sodium 25 MCG TABLET PO (05:36)
[2021-09-04 06:17] LABS: MANUAL DIFF FLAG NO
[2021-09-04 06:20] LABS: Basophils Percent Auto 0.4 % (0-2); Eosinophils Percent Auto 0.7 % (0-4); Hematocrit 31.5 % (37-47); Hemoglobin 9.6 g/dl (12.0-16.0); Imm Gran Abs Auto 0.03 X10*3/uL (0.00-0.03); Imm Gran Pct Auto 0.5 % (0.0-0.4); Lymphocytes Absolute Auto 0.5 X10*3/uL (1.2-4.9); Lymphocytes Percent Auto 9.5 % (20-40); Mean Corpuscular HGB Conc 30.5 g/dl (31.0-35.0); Mean Corpuscular Hemoglobin 28.2 pg (27.0-33.0); Mean Corpuscular Volume 92.6 fL (80-98); Mean Platelet Volume 12.2 fL (9.4-12.3); Monocytes Absolute Auto 0.6 X10*3/uL (0.1-1.2); Monocytes Percent Auto 10.7 % (2-11); Neutrophils Absolute Auto 4.4 X10*3/uL (2.0-8.3); Neutrophils Percent Auto 78.2 % (45-73); Platelet Count 132 X10*3/uL (160-400); Red Cell Distribution Width 18.4 % (11.0-16.0); White Blood Count 5.6 X10*3/uL (4.8-10.8)
[2021-09-04 06:26] LABS: INTERNATIONAL NORM RATIO 2.4 (0.9-1.1); Prothrombin Time 28.2 SEC (9.9-13.0)
[2021-09-04 06:38] LABS: Anion Gap 15 (12-20); Blood Urea Nitrogen 70 mg/dL (9-16); Calcium 8.2 mg/dL (8.4-10.2); Carbon Dioxide 21 mmol/L (22-29); Chloride 109 mmol/L (96-108); Creatinine Clr Calc Pharmacy 17.7; Estimated Glomerular Filt Rate 15; Glucose Random 95 mg/dL (60-115); Potassium 3.9 mmol/L (3.3-5.1); Sodium 141 mmol/L (135-145)
--- NOTE | 2021-09-04 08:30 | CA_ITS ---
Transthoracic Echocardiogram Patient (Last, First, Middle): [place] Dooley E Gender: Female Date of : 1950 Age: 71 Procedure Date: 09/04/2021 Procedure Type: Transthoracic Echocardiogram Location: S3E Height: 175.26 cm Weight: 73.94 kg BSA: 1.89 m2 Heart Rate: bpm BP: 122 / 60 mmHg Patient Account Analyst: YR/CP Referring MD: Julian Villanueva MD Symptoms: chf Study Quality: Fair/Contrast Conclusions: - Severely increased left ventricular cavity size. There is normal left ventricular wall thickness. The left ventricular systolic function is severely decreased. The visually estimated ejection fraction is between 15-20%. - Mildly increased right ventricular cavity size. There is mild to moderately decreased right ventricular systolic function. - A mechanical prosthetic mitral valve is present. The prosthetic mitral valve appears to be functioning normally. There is trace mitral valve regurgitation. There is no mitral valve stenosis. - There is moderate to severe tricuspid valve regurgitation. Significantly elevated right atrial pressure. Mild to moderate pulmonary hypertension is present. There is apical tethering of the tricuspid valve leaflets. Findings Procedure Information Contrast agent, definity, is being given per protocol without apparent complications. Left Ventricle Severely increased left ventricular cavity size. There is normal left ventricular wall thickness. The left ventricular systolic function is severely decreased. The visually estimated ejection fraction is between 15 20%. There is severe global hypokinesis. Abnormal diastolic function is noted. Spectral Doppler is indicative of a restrictive filling pattern. Elevated filling pressures. Right Ventricle Mildly increased right ventricular cavity size. There is mild to moderately decreased right ventricular systolic function. Atria Severe biatrial enlargement. There is no evidence of interatrial shunt by color Doppler. Aortic Valve There is a normal trileaflet aortic valve. There is mild thickening of the aortic valve. There is no aortic valve stenosis. There is no aortic valve regurgitation. Mitral Valve A mechanical prosthetic mitral valve is present. The prosthetic mitral valve appears to be functioning normally. There is trace mitral valve regurgitation. There is no mitral valve stenosis. Pulmonic Valve Normal pulmonic valve structure and function. There is trace pulmonic valve regurgitation. Tricuspid Valve There is moderate to severe tricuspid valve regurgitation. Significantly elevated right atrial pressure. Mild to moderate pulmonary hypertension is present. There is apical tethering of the tricuspid valve leaflets. Great Vessels All visible segments of the aorta are normal in size. The visualized portions of the pulmonary artery and branches are normal. Venous The inferior vena cava is dilated and collapses less than 50% with inspiration. Pericardium/Pleural There is no evidence of pericardial effusion. Prior Study Comparison Changes noted compared to prior study dated: 09/21/2020. RV function is mild-moderately reduced. Measurements 2D Linear Measurements IVSd: 0.85 0.6-0.9/0.6-1.0 cm LVIDd: 6.67 3.9-5.3/4.2-5.9 cm LVIDd Index: 3.53 2.4-3.2/2.2-3.1 cm/m2 LVIDs: 5.95 2.0-3.6 cm LVPWd: 0.83 0.7-1.1 cm Ao Root: 3.00 2.1-3.5 cm LA Diam: 9.20 2.7-3.8/3.0-4.0 cm LAIDs Index: 4.87 1.5-2.3 cm/m2 LV Mass: 296.21 67-162/88-224 g LV Mass Index: 156.72 43-95/49-115 g/m2 LVOT Diam: 2.00 3.0+(-)1.3 cm 2D Systolic Function EF 4C: 22.00 >55% EF 2C: 30.20 >55% Mitral Valve MV VTI: 0.35 MV Pk Candelario: 1.89 MV Mn Candelario: 1.01 MV Pk Grad: 14.00 MV Mn Grad: 5.00 MV Pk E: 1.74 MV PK A: 0.68 MV Decel Time: 146.00 E/A: 2.60 PHT: 64.00 MVA PHT: 3.44 MVA Continuity: 1.45 Decel Uinta: 8.91 Aortic Valve AoV Pk Candelario: 1.23 AoV Mn Candelario: 0.82 AoV VTI: 0.22 AoV Pk Grad: 6.00 Aov Mn Grad: 3.00 AARON Cont.VTI: 2.33 LVOT LVOT Pk Candelario: 0.99 LVOT Mn Candelario: 0.63 LVOT VTI: 0.16 LVOT Pk Grad: 4.00 LVOT Mn Grad: 2.00 LVOT Diam: 2.00 LVOT Area: 3.14 Diastolic Function MV Pk E: 1.74 MV Pk A: 0.68 E/A: 2.60 Tricuspid Valve TR Pk Candelario: 2.90 TR Pk Grad: 34.00 RA Press: 15.00 RVSP: 49.00 Great Vessels Aorta Ao Root-2D: 3.00 2.0-3.7 cm Ao Asc: 2.70 2.1-3.4 cm Ao Arch: 2.70 Updated in Other Vendor System with Status of Final Garth Winters MD electronically signed on 09/05/2021 1:39:09 PM with status of Final
[2021-09-04] MEDS: Atorvastatin Calcium 40 MG TABLET PO (09:49)
[2021-09-04] MEDS: Furosemide 20 MG TABLET PO (09:49)
[2021-09-04] MEDS: Isosorbide Dinitrate 5 MG TABLET PO ×2 (09:49→21:48)
[2021-09-04] MEDS: carvediloL 25 MG TABLET PO ×2 (09:49→17:13)
[2021-09-04] MEDS: Ferrous Sulfate 324 MG TABLET.DR PO ×2 (09:49→21:41)
[2021-09-04] MEDS: Aspirin Enteric Coated 81 MG TABLET.DR PO (09:49)
[2021-09-04] MEDS: FLUoxetine HCl 20 MG CAPSULE PO (09:49)
[2021-09-04] MEDS: Furosemide 20 MG/2 ML VIAL IVPUSH ×2 (09:49→17:13)
--- NOTE | 2021-09-04 10:33 | MHC.CM.PN ---
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 SHE REPORTS SHE IS AWARE SHE IS NOT THE PTS HCP AT THIS TIME. SHE STATES THEY DID DISCUSS IT HOWEVER NEVER FINISHED THE DISCUSSION OR COMPLETED A NEW HCP. ARLENE REPORTS SHE WOULD PREFER CM DISCUSS THIS WITH THE PT SO THAT SHE DOES NOT FEEL PRESSURED WHEN MAKING THE DECISION. ARLENE ALSO REPORTS SHE FEELS THE PT NEEDS HOME PT. SHE REPORTS THEY HAD REQUESTED AN UPRIGHT WALKER HOWEVER THEY WERE TOLD THE INSURANCE WOULD NOT COVER IT. SHE REPORTS THE PT EXPERIENCES A LOT OF BACK PAIN DUE TO USING HER CURRENT WALKER, SHE IS HOPING PT WILL HELP. SHE ALSO REPORTS THE PT WAS RECEIVING PRESCRIPTIONS FOR 4% LIDOCAINE PATCHES HOWEVER THEY DO NOT SEEM TO HELP. SHE REPORTS SHE WOULD LIKE THE PT TO GET A RX FOR THE ICY HOT PATCHES THEY ARE MORE EFFECTIVE. REQUESTS WILL BE FORWARDED TO THE AND [place] Original Note: CM MET WITH PT WHO REPORTS SHE LIVES WITH HER DAUGHTER AND IS INDEPENDENT WITH ADLS PT REPORTS SHE HAS A NURSE FROM [facility] THAT COMES TO HER HOME TO TAE HER LABS FOR INR CHECKS PT HAS A ROLLATOR SHE USES TO ASSIST WITH AMBULATION PT IS AWARE SHE HAS A HCP ON FILE NAMING HER BROTHER, MARIA C ROSADO, HER AGENT, HOWEVER SHE REPORTS HER DAUGHTER DOES ALL OF THE SPEAKING FOR HER. SHE DECLINES TO COMPLETE A NEW ONE AT THIS TIME. DCP HOME WITH RESUMPTION OF [facility] DAUGHTER TO TRANSPORT
--- NOTE | 2021-09-04 10:55 | P.PNIM_ITS ---
Subjective Subjective Date of Service: 09/04/21 Interval History: Seen in f/u for heart failure exacerbation, clinically feels better Review of Systems no fever, no sob Physical Exam Vital Signs: Vital Signs: Last Vital Signs Temp 98.1 F 09/04/21 07:25 Pulse 79 09/04/21 07:25 Resp 16 09/04/21 07:25 BP 135/87 09/04/21 07:25 Pulse Ox 96 09/04/21 07:25 Body Mass Index 24.1 General: AO X 3, no acute distress Resp: CTA bilateral CVS: S1,S2,RRR, 2+pitting edema GI: +BS, NT, no distention Skin: No rash Neuro: motor grossly intact Psych: appropriate affect Objective Data Active Medications Acetaminophen (Acetaminophen 325 Mg Tablet) 650 mg PO Q6H PRN PRN Reason: Pain, Mild (Pain Scale 1-3) Acetaminophen (Acetaminophen 325 Mg Tablet) 325 mg PO QID PRN PRN Reason: Pain Aspirin (Aspirin Enteric Coated 81 Mg Tablet.) 81 mg PO DAILY [facility] Last Admin: 09/04/21 09:49 Dose: 81 mg Documented by: LINDA Atorvastatin Calcium (Atorvastatin Calcium 40 Mg Tablet) 40 mg PO DAILY [facility] Last Admin: 09/04/21 09:49 Dose: 40 mg Documented by: LINDA Carvedilol (Carvedilol 25 Mg Tablet) 25 mg PO BIDWM [facility]; Protocol Last Admin: 09/04/21 09:49 Dose: 25 mg Documented by: LINDA Docusate Sodium (Docusate Sodium 100 Mg Capsule) 200 mg PO BEDTIME [facility] Ferrous Sulfate (Ferrous Sulfate 324 Mg Tablet.) 324 mg PO BID [facility] Last Admin: 09/04/21 09:49 Dose: 324 mg Documented by: LINDA Fluoxetine HCl (Fluoxetine Hcl 20 Mg Capsule) 20 mg PO DAILY [facility] Last Admin: 09/04/21 09:49 Dose: 20 mg Documented by: LINDA Furosemide (Furosemide 20 Mg/2 Ml Vial) 20 mg IVPUSH BIDWM [facility]; Protocol Last Admin: 09/04/21 09:49 Dose: 20 mg Documented by: LINDA Furosemide (Furosemide 20 Mg Tablet) 20 mg PO DAILY [facility]; Protocol Last Admin: 09/04/21 09:49 Dose: 20 mg Documented by: LINDA Isosorbide Dinitrate (Isosorbide Dinitrate 5 Mg Tablet) 5 mg PO BID [facility]; Protocol Last Admin: 09/04/21 09:49 Dose: 5 mg Documented by: LINDA Levothyroxine Sodium (Levothyroxine Sodium 112 Mcg Tablet) 112 mcg PO DAILY@0600 [facility] Last Admin: 09/04/21 05:36 Dose: 112 mcg Documented by: KASIA Levothyroxine Sodium (Levothyroxine Sodium 25 Mcg Tablet) 25 mcg PO DAILY@0600 [facility] Last Admin: 09/04/21 05:36 Dose: 25 mcg Documented by: KASIA Melatonin (Melatonin 3 Mg Tablet) 6 mg PO BEDTIME PRN PRN Reason: Insomnia Omeprazole (Omeprazole 20 Mg Capsule.Dr) 20 mg PO DAILY@0630 [facility] Last Admin: 09/04/21 05:36 Dose: 20 mg Documented by: KASIA Potassium Chloride (Potassium Chloride Er 20 Meq Tab.Er.Prt) 20 meq PO Q48H [facility] Senna (Sennosides 8.6 Mg Tablet) 17.2 mg PO BEDTIME PRN PRN Reason: Constipation Sodium Chloride (0.9 % Sodium Chloride Flush 3 Ml Syringe) 3 ml IVFLUSH QSHIFT [facility] Last Admin: 09/04/21 09:49 Dose: 3 ml Documented by: LINDA Trazodone HCl (Trazodone Hcl 50 Mg Tablet) 50 mg PO DAILY PRN PRN Reason: for insomnia Warfarin Sodium (Warfarin Sodium 1.25 Mg Halftab) 1.25 mg PO SUTUTHSA@1800 [facility] Warfarin Sodium (Warfarin Sodium 2.5 Mg Tablet) 2.5 mg PO MOWEFR@1800 [facility] Labs CBC & Chem 7: 09/04/21 06:11 09/04/21 06:11 Labs: Laboratory Results - last 24 hr 09/03/21 09/03/21 09/03/21 15:55 15:55 15:55 MCV 93.1 MCH 28.4 MCHC 30.5 L RDW 18.3 H Plt Count 108 L MPV Not Reportable Immature Gran % (Auto) 0.4 Neut % (Auto) 83.6 H Lymph % (Auto) 7.4 L Hendricks % (Auto) 7.7 Eos % (Auto) 0.7 Baso % (Auto) 0.2 Lymph # (Auto) 0.4 L Hendricks # (Auto) 0.4 Eos # (Auto) 0.0 Baso # (Auto) 0.0 Abs Immat Gran (auto) 0.02 Absolute Neuts (auto) 4.5 Absolute Nucleated RBC 0.000 Nucleated RBC % (auto) 0.0 PT INR Anion Gap 16 Estim Creat Clear Calc 16.6 Estimated GFR 14 Random Glucose 88 Calcium 8.3 L Total Bilirubin 0.8 AST 26 ALT 23 Alkaline Phosphatase 143 H Troponin I High Sens 483.0 H* B-Natriuretic Peptide Total Protein 6.8 Albumin 3.4 L Urine Color Urine Appearance Urine pH Ur Specific [place] Urine Protein Urine Glucose (UA) Urine Ketones Urine Blood Urine Nitrite Ur Leukocyte Esterase Urine RBC Urine WBC Ur Squamous Epith Cells Urine Bacteria COVID-19 (ANEUDY) COVID-Stylect 09/03/21 09/03/21 09/03/21 15:55 15:56 18:30 MCV MCH MCHC RDW Plt Count MPV Immature Gran % (Auto) Neut % (Auto) Lymph % (Auto) Hendricks % (Auto) Eos % (Auto) Baso % (Auto) Lymph # (Auto) Hendricks # (Auto) Eos # (Auto) Baso # (Auto) Abs Immat Gran (auto) Absolute Neuts (auto) Absolute Nucleated RBC Nucleated RBC % (auto) PT 25.6 H INR 2.2 H Anion Gap Estim Creat Clear Calc Estimated GFR Random Glucose Calcium Total Bilirubin AST ALT Alkaline Phosphatase Troponin I High Sens 625.6 H* B-Natriuretic Peptide 1240 H Total Protein Albumin Urine Color Urine Appearance Urine pH Ur Specific [place] Urine Protein Urine Glucose (UA) Urine Ketones Urine Blood Urine Nitrite Ur Leukocyte Esterase Urine RBC Urine WBC Ur Squamous Epith Cells Urine Bacteria COVID-19 (ANEUDY) COVID-Stylect 09/03/21 09/03/21 09/04/21 19:10 22:28 06:11 MCV 92.6 MCH 28.2 MCHC 30.5 L RDW 18.4 H Plt Count 132 L MPV 12.2 Immature Gran % (Auto) 0.5 H Neut % (Auto) 78.2 H Lymph % (Auto) 9.5 L Hendricks % (Auto) 10.7 Eos % (Auto) 0.7 Baso % (Auto) 0.4 Lymph # (Auto) 0.5 L Hendricks # (Auto) 0.6 Eos # (Auto) 0.0 Baso # (Auto) 0.0 Abs Immat Gran (auto) 0.03 Absolute Neuts (auto) 4.4 Absolute Nucleated RBC 0.000 Nucleated RBC % (auto) 0.0 PT INR Anion Gap Estim Creat Clear Calc Estimated GFR Random Glucose Calcium Total Bilirubin AST ALT Alkaline Phosphatase Troponin I High Sens B-Natriuretic Peptide Total Protein Albumin Urine Color YELLOW Urine Appearance CLEAR Urine pH 5.5 Ur Specific [place] 1.025 Urine Protein 2+ H Urine Glucose (UA) NEG Urine Ketones NEG Urine Blood TRACE Urine Nitrite NEG Ur Leukocyte Esterase 1+ H Urine RBC 0-2 Urine WBC 5-9 H Ur Squamous Epith Cells 1+ Urine Bacteria 1+ COVID-19 (ANEUDY) Negative COVID-19 Clin Com See Note 09/04/21 09/04/21 06:11 06:11 MCV MCH MCHC RDW Plt Count MPV Immature Gran % (Auto) Neut % (Auto) Lymph % (Auto) Hendricks % (Auto) Eos % (Auto) Baso % (Auto) Lymph # (Auto) Hendricks # (Auto) Eos # (Auto) Baso # (Auto) Abs Immat Gran (auto) Absolute Neuts (auto) Absolute Nucleated RBC Nucleated RBC % (auto) PT 28.2 H INR 2.4 H Anion Gap 15 Estim Creat Clear Calc 17.7 Estimated GFR 15 Random Glucose 95 Calcium 8.2 L Total Bilirubin AST ALT Alkaline Phosphatase Troponin I High Sens B-Natriuretic Peptide Total Protein Albumin Urine Color Urine Appearance Urine pH Ur Specific [place] Urine Protein Urine Glucose (UA) Urine Ketones Urine Blood Urine Nitrite Ur Leukocyte Esterase Urine RBC Urine WBC Ur Squamous Epith Cells Urine Bacteria COVID-19 (ANEUDY) COVID-19 Clin Com Assessment and Plan (1) Epistaxis: Status: Acute Assessment and Plan: 71-year-old female with a past medical history of hypertension, hyperlipidemia, CAD, CHF with reduced ejection fraction, status post AICD/pacemaker, CKD, hypothyroidism, pulmonary hypertension, history of mechanical mitral and aortic valve-on Coumadin; history of retinal detachment; history of bladder cancer, amyloidosis, arthritis, anxiety, depression, obesity presented to the hospital with a chief complaint of leg swelling. Leg swelling:?no evidence of cellulitis, likely from CHF acute/chronic HFrEF with increased leg edema, -continue IV Lasix, I/O, cardiology consult, follow BMP - continue carvedilol, isosorbide dinitrate CKD 4, stable. History of mechanical mitral wall:?continue anticoagulation with coumadin, follow INR History of hypothyroidism:? Continue home levothyroxine History of hypertension/hyperlipidemia:? Continue home Coreg/Imdur/statin hypothyroidism - continue LT4 mood disorder - continue fluoxetine Quality Stroke Does the patient have a stroke diagnosis?: No VTE Prior VTE?: No VTE Risk Level:: Medical - moderate - high VTE Device Contraindication: Treatment Not Indicated VTE Drug Contraindication: Treatment Not Indicated
[2021-09-04 14:01] LABS: Creatinine Urine 32.47 mg/dL; Total Protein Urine Random 176 mg/dL (<12)
--- NOTE | 2021-09-04 14:15 | PC.NURSE ---
Skin assessment completed. patient had bilateral blanchable redness to buttocks and to right thigh. No other skin issues noted at this time. Patient is being repositioned every 2 hours.
[2021-09-04 14:44] LABS: EOS Counted 0 CELLS; EOS QC POS YES; EOS Stain Quality OK YES; WBC, Counted 100 CELLS
--- NOTE | 2021-09-04 15:52 | CONS_ITS ---
DATE OF SERVICE: 09/04/2021 REASON FOR CONSULTATION: I was asked to see patient to assist in evaluation and management of patient's renal dysfunction as reflected by a BUN and creatinine of 70 and 3.09, whereas her baseline renal function ranges in the 2 to 2.5 range. Although I do see her creatinine sometimes going up to 3. She seems to have volume sensitive worsening renal function at times. HISTORY OF PRESENT ILLNESS: In summary, the patient is a complicated 71-year-old patient, well known to my partner, Dr. 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 We did track down to see if she had a biopsy done that demonstrated this. Nonetheless, it is listed in the records that this is what she has along with hypertension, hyperlipidemia, coronary artery disease, heart failure with reduced EF. She has an AICD pacemaker in place, hypothyroidism, pulmonary hypertension. She has mechanical mitral and aortic valve, history of bladder cancer, the amyloidosis as mentioned, degenerative joint disease, who presents to the hospital with increasing swelling, more on the right leg than the left leg. She is on intermittent doses of diuretics. She also apparently was on Bactrim for a recent urinary tract infection. She is overall feeling a bit better but complaining about the leg swelling. She denies any chest pain or shortness of breath. She has had a good response to the IV Lasix. The x-ray on admission did suggest that she had evidence of congestive heart failure as well. She denies any gross hematuria or dysuria. PAST MEDICAL HISTORY: As outlined above. There is also mention made of a history of kidney stones, tricuspid regurg. MEDICATIONS: Her medications on admission are listed as including potassium 20 mEq every other day, Coumadin. Apparently, she is not on chronic diuretics from what is listed there. SOCIAL HISTORY: She is a lifelong nonsmoker. No alcohol or illicit drug use and no use of NSAIDs. FAMILY HISTORY: Notable for diabetes and coronary artery disease. ALLERGIES: SHE HAS NO KNOWN DRUG ALLERGIES. PHYSICAL EXAMINATION: VITAL SIGNS: Blood pressure of 130/80 with a heart rate in the 70s. She is afebrile. I's and O's, states that she is net -500 mL since admission, although details are unclear. HEAD: Atraumatic and normocephalic. NECK: Supple. Mucous membranes are moist. There is no JVD. LUNGS: Decreased breath sounds at bases, otherwise clear. CARDIAC: Regular rate and rhythm without rub. ABDOMEN: Soft, nontender. EXTREMITIES: She has 2+ edema, right leg greater than left. LABORATORY DATA: Sodium 141; potassium 3.9; chloride 109; bicarb 21; BUN 70, creatinine 3.09, it was 72 and 3.3 on admission; and potassium was 5.8 on admission. Troponin I was 625. BNP level is 1240. Her serum creatinine as mentioned has ranged in the 2.5 to 3.0 range over the past several months. Hemoglobin 9.6, hematocrit 31.5, white blood cell count 5.6, platelet count 132. Urine studies showed UA with 2+ protein. I do not see urine protein to creatinine ratio. She had serum immunofixation back in July, which showed no monoclonal spike. She has had free kappa/lambda chains done and the ratios have not been abnormal. She had an x-ray on admission, showed cardiomegaly with pulmonary venous congestion. She had pleural effusions noted. She had an ultrasound of the legs, showed no DVT in the right leg. IMPRESSION: 71-year-old complicated patient with advanced chronic kidney disease, admitted with volume overload with lower extremity edema and pulmonary edema. 1. Advanced chronic kidney disease. We will need to track down outpatient records to see if she had a kidney biopsy done in the past. 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 Renal function is pretty close to her baseline. We will see with diuresis if her renal function improves. Occasionally, patients have cardiorenal syndrome with congested kidneys and with diuresis renal function gets better. Other concern is that she recent was on Bactrim and we will check urine for eosinophils, as Bactrim can cause acute interstitial nephritis. Alternatively, with creatinine secretion and causes an elevation in the creatinine. This may be playing a role. 2. Hypervolemia. She seems to respond to the diuretics. 3. Heart failure with reduced EF. She seems fairly compensated at the present time with diuresing and on no oxygen. SUGGESTIONS: At this time include, continue diuretics, follow urine output and renal function. Track down the prior kidney biopsy. Repeat urine studies for urine eosinophils as well as urine protein-creatinine ratio. Avoid nephrotoxins. We will check an intact PTH. She may need to be on treatment for metabolic bone disease. I will follow the patient with the team. MD PANDA Garcia/ABIGAIL / [id number]
--- NOTE | 2021-09-04 16:23 | P.CONCA_ITS ---
History of Present Illness History of Present Illness Date of Service: 09/04/21 Requesting physician: Rishi Fitzgerald Chief complaint: CHF Narrative: 71-year-old female with complex medical issues who is admitted with lower extremity edema and shortness of breath. She is saying she has some orthopnea. She has background history of anemia, congestive heart failure, amyloidosis, pulmonary hypertension. She also has mechanical mitral valve and has been on Coumadin. She said she was taking her diuretics but notice lower extremity edema and decided to come to the emergency department. She was started on IV diuretics and has been diuresing well and is -1200 mL at this point. [facility] Past Medical History Medical History Amyloidosis Anxiety and depression Arthritis Bladder hypertonicity Chronic atrial fibrillation Chronic HFrEF (heart failure with reduced ejection fraction) Chronic kidney disease (CKD) stage G4/A1, severely decreased glomerular filtration rate (GFR) between 15-29 mL/min/1.73 square meter and albuminuria creatinine ratio less than 30 mg/g Detached retina Gout Heart disease History of breast cancer History of breast cancer HTN (hypertension) Hypercholesterolemia Hypothyroid ICD (implantable cardioverter-defibrillator) in place Ischemic cardiomyopathy Kidney disease Nephrolithiasis Osteoarthritis Overweight (BMI 25.0-29.9) Pulmonary hypertension Thumb tendonitis Tricuspid regurgitation Urinary incontinence Family History Family History Mother Diabetes Father Past heart attack Diabetes Sister Parkinsons disease Surgical History Surgical History H/O abdominal hysterectomy H/O mitral valve replacement H/O mitral valve replacement with mechanical valve History of bunionectomy History of cataract surgery History of colonoscopy History of left inguinal hernia repair History of sleeve gastrectomy Social History Social History Household Members: Family Household Members Other:: daughter Housing: House Do you presently have visiting nurse or other home services: No Alcohol intake: never Patient Tobacco Use Status: Never used Tobacco Tobacco use type: Cigarette e-Cigarette/Vaping Use: Never Used Second Hand Smoke Exposure: No service: No Current occupational status: disabled Current occupation: left handed Meds Allergies Allergy/AdvReac Type Severity Reaction Status Date / Time TAPE,PAPER Allergy Unknown RASH TO Uncoded 09/03/21 10:01 PAPER TAPE Active Medications: Current Medications Acetaminophen (Acetaminophen 325 Mg Tablet) 650 mg PO Q6H PRN PRN Reason: Pain, Mild (Pain Scale 1-3) Acetaminophen (Acetaminophen 325 Mg Tablet) 325 mg PO QID PRN PRN Reason: Pain Aspirin (Aspirin Enteric Coated 81 Mg Tablet.) 81 mg PO DAILY [facility] Last Admin: 09/04/21 09:49 Dose: 81 mg Documented by: Atorvastatin Calcium (Atorvastatin Calcium 40 Mg Tablet) 40 mg PO DAILY [facility] Last Admin: 09/04/21 09:49 Dose: 40 mg Documented by: Carvedilol (Carvedilol 25 Mg Tablet) 25 mg PO BIDWM [facility]; Protocol Last Admin: 09/04/21 09:49 Dose: 25 mg Documented by: Docusate Sodium (Docusate Sodium 100 Mg Capsule) 200 mg PO BEDTIME [facility] Ferrous Sulfate (Ferrous Sulfate 324 Mg Tablet.) 324 mg PO BID [facility] Last Admin: 09/04/21 09:49 Dose: 324 mg Documented by: Fluoxetine HCl (Fluoxetine Hcl 20 Mg Capsule) 20 mg PO DAILY [facility] Last Admin: 09/04/21 09:49 Dose: 20 mg Documented by: Furosemide (Furosemide 20 Mg/2 Ml Vial) 20 mg IVPUSH BIDWM [facility]; Protocol Last Admin: 09/04/21 09:49 Dose: 20 mg Documented by: Furosemide (Furosemide 20 Mg Tablet) 20 mg PO DAILY [facility]; Protocol Last Admin: 09/04/21 09:49 Dose: 20 mg Documented by: Isosorbide Dinitrate (Isosorbide Dinitrate 5 Mg Tablet) 5 mg PO BID [facility]; Protocol Last Admin: 09/04/21 09:49 Dose: 5 mg Documented by: Levothyroxine Sodium (Levothyroxine Sodium 112 Mcg Tablet) 112 mcg PO DAILY@0600 [facility] Last Admin: 09/04/21 05:36 Dose: 112 mcg Documented by: Levothyroxine Sodium (Levothyroxine Sodium 25 Mcg Tablet) 25 mcg PO DAILY@0600 [facility] Last Admin: 09/04/21 05:36 Dose: 25 mcg Documented by: Melatonin (Melatonin 3 Mg Tablet) 6 mg PO BEDTIME PRN PRN Reason: Insomnia Omeprazole (Omeprazole 20 Mg Capsule.) 20 mg PO DAILY@0630 [facility] Last Admin: 09/04/21 05:36 Dose: 20 mg Documented by: Potassium Chloride (Potassium Chloride Er 20 Meq Tab.Er.Prt) 20 meq PO Q48H [facility] Senna (Sennosides 8.6 Mg Tablet) 17.2 mg PO BEDTIME PRN PRN Reason: Constipation Sodium Chloride (0.9 % Sodium Chloride Flush 3 Ml Syringe) 3 ml IVFLUSH QSHIFT [facility] Last Admin: 09/04/21 09:49 Dose: 3 ml Documented by: Trazodone HCl (Trazodone Hcl 50 Mg Tablet) 50 mg PO DAILY PRN PRN Reason: for insomnia Warfarin Sodium (Warfarin Sodium 1.25 Mg Halftab) 1.25 mg PO SUTUTHSA@1800 [facility] Warfarin Sodium (Warfarin Sodium 2.5 Mg Tablet) 2.5 mg PO MOWEFR@1800 [facility] Home Medications Medication Instructions Recorded Confirmed Last Taken Type acetaminophen 325 mg capsule 325 mg PO QID PRN 08/06/20 09/03/21 Unknown History (Tylenol) vit C 250 mg-vit E 90 mg-zinc 40 1 tab PO BID 08/06/20 09/03/21 09/03/21 History mg-copper 1 [id number] capsule (PreserVision AREDS-2) ferrous sulfate 324 mg (65 mg 324 mg PO BID 11/05/20 09/03/21 09/03/21 History iron) tablet,delayed release potassium chloride 20 mEq 20 meq PO Q48H 06/19/21 09/03/21 09/03/21 History tablet,extended release(part/cryst) (Klor-Con M) warfarin 2.5 mg tablet 1.25 mg PO SUTUTHSA@1800 06/19/21 09/03/21 09/01/21 History warfarin 2.5 mg tablet 2.5 mg PO MOWEFR@1800 06/19/21 09/03/21 09/02/21 History docusate sodium 100 mg capsule 200 mg PO BEDTIME 08/09/21 09/03/21 09/02/21 History artifi.tears(hypromellose)(PF) 0.3 1 drp OPHTHALMIC (EYE) TID 09/03/21 09/03/21 09/03/21 History % eye drops calcium 250 mg tablet 750 mg PO DAILY 1009/03/21 09/03/21 History Physical Exam Vital Signs: Vital Signs: Last Vital Signs Temp 98.4 F 09/04/21 15:18 Pulse 68 09/04/21 15:18 Resp 14 09/04/21 15:18 BP 118/64 09/04/21 15:18 Pulse Ox 97 09/04/21 15:18 Body Mass Index 24.1 GENERAL APPEARANCE: in no acute distress, pleasant. NECK: no carotid bruit, positive jugular venous distention. SKIN: no suspicious lesions, warm and dry. HEART: Mechanical 1st heart sound, S3 gallop at the apex. LUNGS: clear to auscultation bilaterally. ABDOMEN: soft, nontender. EXTREMITIES: 2+ edema edema. PERIPHERAL PULSES: equal. NEUROLOGIC: No gross deficits, AAO X 3 Results Labs and Meds Result diagrams: 09/04/21 06:11 09/04/21 06:11 Lab results: Laboratory Results - last 24 hr 09/03/21 09/03/21 09/03/21 15:55 15:55 15:56 WBC RBC Hgb Hct MCV MCH MCHC RDW Plt Count MPV Immature Gran % (Auto) Neut % (Auto) Lymph % (Auto) [place] % (Auto) Eos % (Auto) Baso % (Auto) Lymph # (Auto) [place] # (Auto) Eos # (Auto) Baso # (Auto) Abs Immat Gran (auto) Absolute Neuts (auto) Absolute Nucleated RBC Nucleated RBC % (auto) PT INR Sodium 137 Potassium 5.8 H Chloride 109 H Carbon Dioxide 18 L Anion Gap 16 BUN 72 H Creatinine 3.30 H Estim Creat Clear Calc 16.6 Estimated GFR 14 Random Glucose 88 Calcium 8.3 L Total Bilirubin 0.8 AST 26 ALT 23 Alkaline Phosphatase 143 H Troponin I High Sens 483.0 H* B-Natriuretic Peptide 1240 H Total Protein 6.8 Albumin 3.4 L Urine Color Urine Appearance Urine pH Ur Specific [place] Urine Protein Urine Glucose (UA) Urine Ketones Urine Blood Urine Nitrite Ur Leukocyte Esterase Urine RBC Urine WBC Ur Squamous Epith Cells Urine Bacteria Urine Eosinophils % U Random Total Protein Urine Creatinine COVID-19 (ANEUDY) COVID-19 Clin Com 09/03/21 09/03/21 09/03/21 18:30 19:10 22:28 WBC RBC Hgb Hct MCV MCH MCHC RDW Plt Count MPV Immature Gran % (Auto) Neut % (Auto) Lymph % (Auto) [place] % (Auto) Eos % (Auto) Baso % (Auto) Lymph # (Auto) [place] # (Auto) Eos # (Auto) Baso # (Auto) Abs Immat Gran (auto) Absolute Neuts (auto) Absolute Nucleated RBC Nucleated RBC % (auto) PT INR Sodium Potassium Chloride Carbon Dioxide Anion Gap BUN Creatinine Estim Creat Clear Calc Estimated GFR Random Glucose Calcium Total Bilirubin AST ALT Alkaline Phosphatase Troponin I High Sens 625.6 H* B-Natriuretic Peptide Total Protein Albumin Urine Color YELLOW Urine Appearance CLEAR Urine pH 5.5 Ur Specific [place] 1.025 Urine Protein 2+ H Urine Glucose (UA) NEG Urine Ketones NEG Urine Blood TRACE Urine Nitrite NEG Ur Leukocyte Esterase 1+ H Urine RBC 0-2 Urine WBC 5-9 H Ur Squamous Epith Cells 1+ Urine Bacteria 1+ Urine Eosinophils % U Random Total Protein Urine Creatinine COVID-19 (ANEUDY) Negative COVID-19 Clin Com See Note 09/04/21 09/04/21 09/04/21 06:11 06:11 06:11 WBC 5.6 RBC 3.40 L Hgb 9.6 L Hct 31.5 L MCV 92.6 MCH 28.2 MCHC 30.5 L RDW 18.4 H Plt Count 132 L MPV 12.2 Immature Gran % (Auto) 0.5 H Neut % (Auto) 78.2 H Lymph % (Auto) 9.5 L [place] % (Auto) 10.7 Eos % (Auto) 0.7 Baso % (Auto) 0.4 Lymph # (Auto) 0.5 L [place] # (Auto) 0.6 Eos # (Auto) 0.0 Baso # (Auto) 0.0 Abs Immat Gran (auto) 0.03 Absolute Neuts (auto) 4.4 Absolute Nucleated RBC 0.000 Nucleated RBC % (auto) 0.0 PT 28.2 H INR 2.4 H Sodium 141 Potassium 3.9 D Chloride 109 H Carbon Dioxide 21 L Anion Gap 15 BUN 70 H Creatinine 3.09 H Estim Creat Clear Calc 17.7 Estimated GFR 15 Random Glucose 95 Calcium 8.2 L Total Bilirubin AST ALT Alkaline Phosphatase Troponin I High Sens B-Natriuretic Peptide Total Protein Albumin Urine Color Urine Appearance Urine pH Ur Specific [place] Urine Protein Urine Glucose (UA) Urine Ketones Urine Blood Urine Nitrite Ur Leukocyte Esterase Urine RBC Urine WBC Ur Squamous Epith Cells Urine Bacteria Urine Eosinophils % U Random Total Protein Urine Creatinine COVID-19 (ANEUDY) COVID-19 Clin Com 09/04/21 09/04/21 13:20 13:20 WBC RBC Hgb Hct MCV MCH MCHC RDW Plt Count MPV Immature Gran % (Auto) Neut % (Auto) Lymph % (Auto) [place] % (Auto) Eos % (Auto) Baso % (Auto) Lymph # (Auto) [place] # (Auto) Eos # (Auto) Baso # (Auto) Abs Immat Gran (auto) Absolute Neuts (auto) Absolute Nucleated RBC Nucleated RBC % (auto) PT INR Sodium Potassium Chloride Carbon Dioxide Anion Gap BUN Creatinine Estim Creat Clear Calc Estimated GFR Random Glucose Calcium Total Bilirubin AST ALT Alkaline Phosphatase Troponin I High Sens B-Natriuretic Peptide Total Protein Albumin Urine Color Urine Appearance Urine pH Ur Specific [place] Urine Protein Urine Glucose (UA) Urine Ketones Urine Blood Urine Nitrite Ur Leukocyte Esterase Urine RBC Urine WBC Ur Squamous Epith Cells Urine Bacteria Urine Eosinophils % 0.0 U Random Total Protein 176 H Urine Creatinine 32.47 COVID-19 (ANEUDY) COVID-19 Clin Com Imaging Radiologist's impression: Impressions Venous Duplex 09/03/21 14:53 IMPRESSION: No DVT demonstrated in the right lower extremity. Chest X-Ray 09/03/21 16:59 IMPRESSION: Cardiomegaly with pulmonary venous congestion, mild interstitial edema, and a small to moderate size right pleural effusion, consistent with CHF. Femur CT 09/03/21 22:15 IMPRESSION: Aside from degenerative changes in the hip, no femoral abnormality is seen. No fractures are detected. No large hematoma is seen. Subcutaneous fat subcutaneous edema noted bilaterally with probable superficial varicosity on the right. Assessment and Plan (1) Acute congestive heart failure: Qualifiers: Heart failure type: unspecified Qualified Code(s): I50.9 - Heart failure, unspecified Status: Acute 71-year-old female with severely reduced ejection fraction of 15-20% and mechanical mitral valve replacement in the past. She had moderate severe tricuspid regurgitation based on echocardiography from 2019 and significantly elevated right-sided pressures. She is presenting lower extremity edema. Clinically she is volume overloaded. I think we continue IV diuretics with Lasix 20 mg IV b.i.d.. She is diuresing well right now with this dose. Blood pressure control is good. Anticoagulation as before for the mechanical mitral valve. Thank you for allowing me to participate in the care of your patient. Please feel free to contact me if you have any questions. Procedures Date of Service Date of Service: 09/04/21
[2021-09-04] MEDS: Warfarin Sodium 2.5 MG TABLET PO (17:14)
[2021-09-04] MEDS: Docusate Sodium 100 MG CAPSULE 200 MG PO (21:42)
[2021-09-04] MEDS: traZODone HCL 50 MG TABLET PO (21:49)
[2021-09-04] MEDS: Acetaminophen 325 MG TABLET PO (21:50)
--- NOTE | 2021-09-04 23:50 | P.EN_ITS ---
Event Note Date of Service: 09/04/21 Event Note: NSVT: pt had 9beat NSVT; asymptomtic; day hospitalist to follow with a ruby engineer in the morning.
[2021-09-05] VITALS (9 sets, daily range): BP systolic 110–131; BP diastolic 54–65; PULSE 74–86; RESP 16–18; TEMP 36.3–37.1; O2SAT 94–98; BMI 24.8
[2021-09-05] MEDS: 0.9 % Sodium Chloride Flush 3 ML SYRINGE IVFLUSH ×3 (01:14→16:00)
[2021-09-05] MEDS: Levothyroxine Sodium 112 MCG TABLET PO (05:52)
[2021-09-05] MEDS: Omeprazole 20 MG CAPSULE.DR PO (05:53)
[2021-09-05] MEDS: Levothyroxine Sodium 25 MCG TABLET PO (05:53)
--- NOTE | 2021-09-05 06:48 | PC.NURSE ---
at 2350 pt had 9 beat v. tach asymptomatic sleeping
[2021-09-05 08:25] LABS: INTERNATIONAL NORM RATIO 2.8 (0.9-1.1); Prothrombin Time 33.1 SEC (9.9-13.0)
--- NOTE | 2021-09-05 10:20 | P.PNCA_ITS ---
Subjective Subjective Date of Service: 09/05/21 <GEOVANNY Britton - Last Filed: 09/05/21 10:35> 09/05/21 <Garth Winters MD - Last Filed: 09/05/21 12:09> Principal diagnosis: CHF <GEOVANNY Britton - Last Filed: 09/05/21 10:35> Interval history: Cardiology follow up for CHF. Seen at 0915. Today she reports that she is feeling better than time of admit. Breathing is comfortable. Slept with HOB elevated some. No chest pains, palpitations, dizziness. Edema remains in right leg. Eating well. <GEOVANNY Britton - Last Filed: 09/05/21 10:35> Review of Systems Review of Systems as above <GEOVANNY Britton - Last Filed: 09/05/21 10:35> Yes all other systems are reviewed and are negative <GEOVANNY Britton - Last Filed: 09/05/21 10:35> Physical Exam Vital Signs: Last Vital Signs Temp 97.4 F 09/05/21 07:52 Pulse 77 09/05/21 07:52 Resp 18 09/05/21 07:52 BP 131/65 09/05/21 07:52 Pulse Ox 94 09/05/21 07:52 Body Mass Index 24.8 <GEOVANNY Britton - Last Filed: 09/05/21 10:35> Const General: cooperative, no acute distress, alert and awake <GEOVANNY Britton - Last Filed: 09/05/21 10:35> Orientation/consciousness: patient oriented x3 <GEOVANNY Britton - Last Filed: 09/05/21 10:35> Neck Neck: Yes JVD (to below jaw) <GEOVANNY Britton - Last Filed: 09/05/21 10:35> Resp Effort & Inspection: normal respiratory effort, able to speak in complete sentences and not labored <GEOVANNY Britton - Last Filed: 09/05/21 10:35> Auscultation: clear to auscultation bilaterally, rales (right base), no rhonchi and no wheezes <Melissa Frye NP-C - Last Filed: 09/05/21 10:35> Cardio Jugular venous distension: JVD present <MARGARET Britton - Last Filed: 09/05/21 10:35> Palpation: normal PMI <MARGARET BrittonC - Last Filed: 09/05/21 10:35> Rate: regular rate <MARGARET Britton - Last Filed: 09/05/21 10:35> Rhythm: abnormal rhythm irregularly irregular <Melissa Frye NP-C - Last Filed: 09/05/21 10:35> Heart sounds: S1 normal heart sound present and S2 normal heart sound present <MARGARET Britton - Last Filed: 09/05/21 10:35> GI Inspection: Yes normal to inspection <MARGARET Britton - Last Filed: 09/05/21 10:35> Neuro General: patient oriented x3 <MARGARET Britton - Last Filed: 09/05/21 10:35> Extrem Other: +2 pitting edema right lower leg, below knee down <Melissa Frye NP-C - Last Filed: 09/05/21 10:35> Results Labs and Meds Result diagrams: : 09/04/21 06:11 09/05/21 05:40 <MARGARET Britton - Last Filed: 09/05/21 10:35> Lab results: Laboratory Results - last 24 hr 09/04/21 09/04/21 09/05/21 13:20 13:20 07:42 PT 33.1 H INR 2.8 H Urine Eosinophils % 0.0 U Random Total Protein 176 H Urine Creatinine 32.47 <Melissa Frye NP-C - Last Filed: 09/05/21 10:35> Progress Note: A&P Assessment and plan (1) Acute on chronic heart failure with reduced ejection fraction and diastolic dysfunction: Status: Acute <Melissa Frye GEOVANNY - Last Filed: 09/05/21 10:35> Assessment and Plan: Admit with sob and leg edema. Last echo with EF 15-20%, normally functioning mechanical MVR, mod to severe TR. She is being diuresed with IV lasix with negative fluid balance of 1650 cc since admit. Cr 3.09 today, was 3.3 yesterday. Sat 94% on RA. Reports breathing is comfortable. Has fine rales in right base, + JVD and edema right lower leg. Continue to diurese with IV Lasix. Strict I+O monitoring. Close monitoring of electrolytes and kidney function. Electrolyte replacement as warranted. Continue Imdur. We will follow <GEOVANNY Britton - Last Filed: 09/05/21 10:35> (2) Ischemic cardiomyopathy: Status: Acute <GEOVANNY Britton - Last Filed: 09/05/21 10:35> Assessment and Plan: Follows with Dr Estrella as outpt. Last EF 15-20%. Has ICD in place. Continue Carvedilol, Imdur, Aspirin, atorvastatin. <GEOVANNY Britton - Last Filed: 09/05/21 10:35> (3) H/O mitral valve replacement: Status: Acute <GEOVANNY Britton - Last Filed: 09/05/21 10:35> Assessment and Plan: Mechanical MVR. On coumadin and aspirin for anticoagulation. INR goal 2.5-3.5. INR 2.4 today. Has chronic anemia, hgb 9.6, stable. No signs of bleeding. Last echo shows MVR functioning normally. <GEOVANNY Britton - Last Filed: 09/05/21 10:35> (4) Amyloidosis: Status: Acute <GEOVANNY Britton - Last Filed: 09/05/21 10:35> (5) ICD (implantable cardioverter-defibrillator) in place: Status: Acute <GEOVANNY Britton - Last Filed: 09/05/21 10:35> (6) Chronic atrial fibrillation: Status: Acute <GEOVANNY Britton - Last Filed: 09/05/21 10:35> Assessment and Plan: Tele shows afib, rate 80s. On Carvedilol for heart rate control. On coumadin for anticoagulation. <GEOVANNY Britton - Last Filed: 09/05/21 10:35> Fall Risk Details Current Medications: Current Medications Acetaminophen (Acetaminophen 325 Mg Tablet) 650 mg PO Q6H PRN PRN Reason: Pain, Mild (Pain Scale 1-3) Acetaminophen (Acetaminophen 325 Mg Tablet) 325 mg PO QID PRN PRN Reason: Pain Last Admin: 09/04/21 21:50 Dose: 325 mg Documented by: Aspirin (Aspirin Enteric Coated 81 Mg Tablet.) 81 mg PO DAILY [facility] Last Admin: 09/04/21 09:49 Dose: 81 mg Documented by: Atorvastatin Calcium (Atorvastatin Calcium 40 Mg Tablet) 40 mg PO DAILY [facility] Last Admin: 09/04/21 09:49 Dose: 40 mg Documented by: Carvedilol (Carvedilol 25 Mg Tablet) 25 mg PO BIDWM [facility]; Protocol Last Admin: 09/04/21 17:13 Dose: 25 mg Documented by: Docusate Sodium (Docusate Sodium 100 Mg Capsule) 200 mg PO BEDTIME [facility] Last Admin: 09/04/21 21:42 Dose: 200 mg Documented by: Ferrous Sulfate (Ferrous Sulfate 324 Mg Tablet.) 324 mg PO BID [facility] Last Admin: 09/04/21 21:41 Dose: 324 mg Documented by: Fluoxetine HCl (Fluoxetine Hcl 20 Mg Capsule) 20 mg PO DAILY [facility] Last Admin: 09/04/21 09:49 Dose: 20 mg Documented by: Furosemide (Furosemide 20 Mg/2 Ml Vial) 20 mg IVPUSH BIDWM [facility]; Protocol Last Admin: 09/04/21 17:13 Dose: 20 mg Documented by: Furosemide (Furosemide 20 Mg Tablet) 20 mg PO DAILY [facility]; Protocol Last Admin: 09/04/21 09:49 Dose: 20 mg Documented by: Isosorbide Dinitrate (Isosorbide Dinitrate 5 Mg Tablet) 5 mg PO BID [facility]; Protocol Last Admin: 09/04/21 21:48 Dose: 5 mg Documented by: Levothyroxine Sodium (Levothyroxine Sodium 112 Mcg Tablet) 112 mcg PO DAILY@06 00 [facility] Last Admin: 09/05/21 05:52 Dose: 112 mcg Documented by: Levothyroxine Sodium (Levothyroxine Sodium 25 Mcg Tablet) 25 mcg PO DAILY@0600 [facility] Last Admin: 09/05/21 05:53 Dose: 25 mcg Documented by: Melatonin (Melatonin 3 Mg Tablet) 6 mg PO BEDTIME PRN PRN Reason: Insomnia Omeprazole (Omeprazole 20 Mg Capsule.Dr) 20 mg PO DAILY@0630 [facility] Last Admin: 09/05/21 05:53 Dose: 20 mg Documented by: Potassium Chloride (Potassium Chloride Er 20 Meq Tab.Er.Prt) 20 meq PO Q48H [facility] Senna (Sennosides 8.6 Mg Tablet) 17.2 mg PO BEDTIME PRN PRN Reason: Constipation Sodium Chloride (0.9 % Sodium Chloride Flush 3 Ml Syringe) 3 ml IVFLUSH QSHIFT [facility] Last Admin: 09/05/21 01:14 Dose: 3 ml Documented by: Trazodone HCl (Trazodone Hcl 50 Mg Tablet) 50 mg PO DAILY PRN PRN Reason: for insomnia Last Admin: 09/04/21 21:49 Dose: 50 mg Documented by: Warfarin Sodium (Warfarin Sodium 1.25 Mg Halftab) 1.25 mg PO SUTUTHSA@1800 [facility] Warfarin Sodium (Warfarin Sodium 2.5 Mg Tablet) 2.5 mg PO MOWEFR@1800 [facility] Last Admin: 09/04/21 17:14 Dose: 2.5 mg Documented by: <GEOVANNY Britton - Last Filed: 09/05/21 10:35> Time Spent With Patient Time: Total time spent is greater than 50% in coordination of care (as documented) at patient's floor/unit and/or counseling patient: <GEOVANNY Britton - Last Filed: 09/05/21 10:35> Time with patient: 25 - 35 minutes <GEOVANNY Britton - Last Filed: 09/05/21 10:35> Progress Note: Quality Stroke Does the patient have a stroke diagnosis?: No <GEOVANNY Britton - Last Filed: 09/05/21 10:35> Procedures Date of Service Date of Service: 09/05/21 <GEOVANNY Britton - Last Filed: 09/05/21 10:35>
[2021-09-05] MEDS: Potassium Chloride ER 20 MEQ TAB.ER.PRT PO (10:23)
[2021-09-05] MEDS: Ferrous Sulfate 324 MG TABLET.DR PO ×2 (10:24→19:52)
[2021-09-05] MEDS: FLUoxetine HCl 20 MG CAPSULE PO (10:24)
[2021-09-05] MEDS: Atorvastatin Calcium 40 MG TABLET PO (10:24)
[2021-09-05] MEDS: Aspirin Enteric Coated 81 MG TABLET.DR PO (10:24)
[2021-09-05] MEDS: carvediloL 25 MG TABLET PO ×2 (10:24→16:00)
[2021-09-05] MEDS: Furosemide 20 MG/2 ML VIAL IVPUSH ×2 (10:24→16:00)
[2021-09-05] MEDS: Isosorbide Dinitrate 5 MG TABLET PO ×2 (10:24→19:52)
--- NOTE | 2021-09-05 10:24 | P.PNIM_ITS ---
Subjective Subjective Date of Service: 09/06/21 Interval History: Seen in f/u for heart failure exacerbation, she feels tired Review of Systems feels tire, sob Physical Exam Vital Signs: Vital Signs: Last Vital Signs Temp 97.4 F 09/05/21 07:52 Pulse 77 09/05/21 07:52 Resp 18 09/05/21 07:52 BP 131/65 09/05/21 07:52 Pulse Ox 94 09/05/21 07:52 Body Mass Index 24.8 GENERAL APPEARANCE: in no acute distress, pleasant. NECK: no carotid bruit, positive jugular venous distention. SKIN: no suspicious lesions, warm and dry. HEART:? Mechanical 1st heart sound, S3 galop, +jvd LUNGS: clear to auscultation bilaterally. ABDOMEN: soft, nontender. EXTREMITIES:? 2+ edema edema, right >>left PERIPHERAL PULSES: equal. NEUROLOGIC: No gross deficits, AAO X 3 Objective Data Active Medications Acetaminophen (Acetaminophen 325 Mg Tablet) 650 mg PO Q6H PRN PRN Reason: Pain, Mild (Pain Scale 1-3) Acetaminophen (Acetaminophen 325 Mg Tablet) 325 mg PO QID PRN PRN Reason: Pain Last Admin: 09/04/21 21:50 Dose: 325 mg Documented by: RM Aspirin (Aspirin Enteric Coated 81 Mg Tablet.) 81 mg PO DAILY [facility] Last Admin: 09/04/21 09:49 Dose: 81 mg Documented by: LINDA Atorvastatin Calcium (Atorvastatin Calcium 40 Mg Tablet) 40 mg PO DAILY [facility] Last Admin: 09/04/21 09:49 Dose: 40 mg Documented by: LINDA Carvedilol (Carvedilol 25 Mg Tablet) 25 mg PO BIDWM [facility]; Protocol Last Admin: 09/04/21 17:13 Dose: 25 mg Documented by: LINDA Docusate Sodium (Docusate Sodium 100 Mg Capsule) 200 mg PO BEDTIME [facility] Last Admin: 09/04/21 21:42 Dose: 200 mg Documented by: RM Ferrous Sulfate (Ferrous Sulfate 324 Mg Tablet.) 324 mg PO BID [facility] Last Admin: 09/04/21 21:41 Dose: 324 mg Documented by: RM Fluoxetine HCl (Fluoxetine Hcl 20 Mg Capsule) 20 mg PO DAILY [facility] Last Admin: 09/04/21 09:49 Dose: 20 mg Documented by: LINDA Furosemide (Furosemide 20 Mg/2 Ml Vial) 20 mg IVPUSH BIDWM [facility]; Protocol Last Admin: 09/04/21 17:13 Dose: 20 mg Documented by: LINDA Isosorbide Dinitrate (Isosorbide Dinitrate 5 Mg Tablet) 5 mg PO BID [facility]; Protocol Last Admin: 09/04/21 21:48 Dose: 5 mg Documented by: RM Levothyroxine Sodium (Levothyroxine Sodium 112 Mcg Tablet) 112 mcg PO DAILY @0600 [facility] Last Admin: 09/05/21 05:52 Dose: 112 mcg Documented by: RM Levothyroxine Sodium (Levothyroxine Sodium 25 Mcg Tablet) 25 mcg PO DAILY@0600 [facility] Last Admin: 09/05/21 05:53 Dose: 25 mcg Documented by: RM Melatonin (Melatonin 3 Mg Tablet) 6 mg PO BEDTIME PRN PRN Reason: Insomnia Omeprazole (Omeprazole 20 Mg Capsule.Dr) 20 mg PO DAILY@0630 [facility] Last Admin: 09/05/21 05:53 Dose: 20 mg Documented by: RM Potassium Chloride (Potassium Chloride Er 20 Meq Tab.Er.Prt) 20 meq PO Q48H [facility] Senna (Sennosides 8.6 Mg Tablet) 17.2 mg PO BEDTIME PRN PRN Reason: Constipation Sodium Chloride (0.9 % Sodium Chloride Flush 3 Ml Syringe) 3 ml IVFLUSH QSHIFT [facility] Last Admin: 09/05/21 01:14 Dose: 3 ml Documented by: RM Trazodone HCl (Trazodone Hcl 50 Mg Tablet) 50 mg PO DAILY PRN PRN Reason: for insomnia Last Admin: 09/04/21 21:49 Dose: 50 mg Documented by: RM Warfarin Sodium (Warfarin Sodium 1.25 Mg Halftab) 1.25 mg PO SUTUTHSA@1800 [facility] Warfarin Sodium (Warfarin Sodium 2.5 Mg Tablet) 2.5 mg PO MOWEFR@1800 [facility] Last Admin: 09/04/21 17:14 Dose: 2.5 mg Documented by: LINDA Labs CBC & Chem 7: 09/04/21 06:11 09/06/21 05:27 Labs: Laboratory Results - last 24 hr 09/04/21 09/04/21 09/05/21 13:20 13:20 07:42 PT 33.1 H INR 2.8 H Urine Eosinophils % 0.0 U Random Total Protein 176 H Urine Creatinine 32.47 Microbiology Microbiology Results: Microbiology 09/03/21 19:24 Urine Culture - Preliminary Urine clean catch - Urine xiogn top Culture too young to evaluate. Assessment and Plan (1) Acute on chronic heart failure with reduced ejection fraction and diastolic dysfunction: Status: Acute Assessment and Plan: 71-year-old female with a past medical history of hypertension, hyperlipidemia, CAD, CHF with reduced ejection fraction, status post AICD/pacemaker, CKD, hypothyroidism, pulmonary hypertension, history of mechanical mitral and aortic valve-on Coumadin; history of retinal detachment; history of bladder cancer, amyloidosis, arthritis, anxiety, depression, obesity presented to the hospital with a chief complaint of leg swelling. Leg swelling:?no evidence of cellulitis, likely from CHF ?acute/chronic HFrEF with persistent edema -continue IV Lasix, I/O, cardiology consult, follow BMP, thus far negative 2400 - continue carvedilol, isosorbide dinitrate, cardiology following CKD 4, stable. cr around 3 History of mechanical mitral wall:?continue anticoagulation with coumadin, follow INR, today 2.87 History of hypothyroidism:? Continue home levothyroxine History of hypertension/hyperlipidemia:? Continue home Coreg/Imdur/statin ?hypothyroidism - continue LT4 ?mood disorder - continue fluoxetine Quality Stroke Does the patient have a stroke diagnosis?: No VTE Prior VTE?: No VTE Risk Level:: Medical - moderate - high VTE Device Contraindication: Treatment Not Indicated VTE Drug Contraindication: Treatment Not Indicated
[2021-09-05 11:10] LABS: Anion Gap 13 (12-20); Blood Urea Nitrogen 70 mg/dL (9-16); Calcium 7.8 mg/dL (8.4-10.2); Carbon Dioxide 23 mmol/L (22-29); Chloride 111 mmol/L (96-108); Creatinine Clr Calc Pharmacy 18.1; Estimated Glomerular Filt Rate 15; Glucose Random 85 mg/dL (60-115); Potassium 3.6 mmol/L (3.3-5.1); Sodium 143 mmol/L (135-145)
--- NOTE | 2021-09-05 17:39 | P.PNNP_ITS ---
Subjective Subjective Date of Service: 09/05/21 Principal diagnosis: CHF Interval history: Seen and examiend, events noted Physical Exam Vital Signs: Vital Signs: Last Vital Signs Temp 98 F 09/05/21 15:35 Pulse 86 09/05/21 16:00 Resp 16 09/05/21 15:35 BP 120/56 L 09/05/21 16:00 Pulse Ox 96 09/05/21 15:35 Body Mass Index 24.8 Const: General: cooperative, healthy appearing, comfortable, no acute distress, alert and awake Orientation/consciousness: patient oriented x3 Limitations: no limitations HENMT: Head: Yes normal to inspection Ears: hearing grossly normal bilaterally General nose exam: Normal external nose present Face and sinus: Yes normal facial exam Mouth: Normal oral and palatal mucosa present Throat: Yes posterior oropharynx normal Eyes: General: appearance normal, both eyes and all related structures Pupils: Equal, round and reactive pupils present Neck: Neck: Yes normal visual inspection and Yes JVD (to below jaw) Chest: Chest palpation & inspection: normal inspection of the chest Resp: Effort & Inspection: normal respiratory effort, able to speak in complete sentences and not labored Auscultation: clear to auscultation bilaterally, rales, no rhonchi, no wheezes and diminished lung sounds Cardio: Jugular venous distension: JVD present Palpation: normal PMI Rate: regular rate Rhythm: regular rhythm and abnormal rhythm irregularly irregular Heart sounds: S1 normal heart sound present and S2 normal heart sound present Peripheral pulses: Peripheral pulses 2+ throughout GI: Inspection: Yes normal to inspection Palpation (GI): Soft to palpation and nontender Auscultation: normal bowel sounds Back/Spine/Pelvis: Thoracic/Lumbar Spine: thoracic and lumbar spine normal to inspection Skin: General skin exam: no rashes or lesions noted Neuro: General: patient oriented x3, no focal motor deficits and normal sensation to monofilament Cranial nerves: Yes Equal, round and reactive pupils present Cognition (Neuro): normal cognition Speech: No Abnormal speech present Gait exam (Neuro): Normal gait present Motor exam (neuro): 5/5 motor strength present throughout Extrem: Other: +2 pitting edema right lower leg, below knee down General: Yes normal to inspection Objective Data Labs CBC & Chem 7: 09/04/21 06:11 09/05/21 05:40 Labs: Laboratory Results - last 24 hr 09/05/21 09/05/21 05:40 07:42 PT 33.1 H INR 2.8 H Sodium 143 Potassium 3.6 Chloride 111 H Carbon Dioxide 23 Anion Gap 13 BUN 70 H Creatinine 3.02 H Estim Creat Clear Calc 18.1 Estimated GFR 15 Random Glucose 85 Calcium 7.8 L Microbiology Microbiology Results: Microbiology 09/03/21 19:24 Urine clean catch - Urine xiong top Urine Culture - Final Procedures Date of Service Date of Service: 09/05/21 Assessment & Plan Assessment and plan (1) Acute on chronic heart failure with reduced ejection fraction and diastolic dysfunction: Status: Acute (2) Ischemic cardiomyopathy: Status: Acute (3) H/O mitral valve replacement: Status: Acute (4) Amyloidosis: Status: Acute (5) ICD (implantable cardioverter-defibrillator) in place: Status: Acute (6) Chronic atrial fibrillation: Status: Acute Assessment and Plan: Tele shows afib, rate 80s. On Carvedilol for heart rate control. On coumadin for anticoagulation. (7) Chronic kidney disease (CKD) stage G4/A1, severely decreased glomerular filtration rate (GFR) between 15-29 mL/min/1.73 square meter and albuminuria creatinine ratio less than 30 mg/g: Status: Acute Assessment and Plan: 1. CKD 4: adv CKD SCr2.5-3.0 h/oamyloidand IgA onprior BX 2018 and CRSyn 2.dCHF: valvular [place] and HFrEF and ?card amyloid diuresing well on diuretics and renal func stable 3. MBD of CKD: check PTH REC cont diuresis and track UOP/renal func; avoid NToxins; at rsik for prog to ESRD in next 6-12 months so protect LUE and will need close f/u as outpt Time Spent With Patient Time: Total time spent is greater than 50% in coordination of care (as do cumented) at patient's floor/unit and/or counseling patient: Progress Note: Quality Stroke Does the patient have a stroke diagnosis?: No
[2021-09-05] MEDS: Warfarin Sodium 1.25 MG HALFTAB PO (17:40)
[2021-09-05] MEDS: Acetaminophen 325 MG TABLET 650 MG PO (17:44)
[2021-09-05] MEDS: Sennosides 8.6 MG TABLET 17.2 MG PO (17:45)
[2021-09-05] MEDS: Docusate Sodium 100 MG CAPSULE 200 MG PO (19:48)
[2021-09-06] VITALS (7 sets, daily range): BP systolic 107–119; BP diastolic 53–64; PULSE 72–84; RESP 16–18; TEMP 36.2–36.7; O2SAT 95–97
[2021-09-06] MEDS: 0.9 % Sodium Chloride Flush 3 ML SYRINGE IVFLUSH ×4 (00:40→23:47)
[2021-09-06] MEDS: Levothyroxine Sodium 112 MCG TABLET PO (05:57)
[2021-09-06] MEDS: Omeprazole 20 MG CAPSULE.DR PO (05:57)
[2021-09-06] MEDS: Levothyroxine Sodium 25 MCG TABLET PO (05:57)
[2021-09-06 06:29] LABS: Anion Gap 14 (12-20); Blood Urea Nitrogen 72 mg/dL (9-16); Calcium 7.9 mg/dL (8.4-10.2); Carbon Dioxide 23 mmol/L (22-29); Chloride 111 mmol/L (96-108); Creatinine Clr Calc Pharmacy 17.7; Estimated Glomerular Filt Rate 15; Glucose Random 92 mg/dL (60-115); Potassium 3.7 mmol/L (3.3-5.1); Sodium 144 mmol/L (135-145)
[2021-09-06 06:41] LABS: INTERNATIONAL NORM RATIO 3.1 (0.9-1.1); Prothrombin Time 36.7 SEC (9.9-13.0)
[2021-09-06] MEDS: FLUoxetine HCl 20 MG CAPSULE PO (09:07)
[2021-09-06] MEDS: Aspirin Enteric Coated 81 MG TABLET.DR PO (09:07)
[2021-09-06] MEDS: Atorvastatin Calcium 40 MG TABLET PO (09:07)
[2021-09-06] MEDS: Isosorbide Dinitrate 5 MG TABLET PO ×2 (09:07→20:16)
[2021-09-06] MEDS: Ferrous Sulfate 324 MG TABLET.DR PO ×2 (09:07→20:16)
[2021-09-06] MEDS: carvediloL 25 MG TABLET PO ×2 (09:07→17:08)
[2021-09-06] MEDS: Furosemide 20 MG/2 ML VIAL IVPUSH (09:07)
--- NOTE | 2021-09-06 09:46 | MHC.CM.PN ---
PER CONVERSATION WITH [facility] OF [facility] RN, JAMAL ([phone]), PATIENT IS RECEIVING RN SKILLS THROUGH [facility], AND NOT AN OUTSIDE AGENCY
--- NOTE | 2021-09-06 10:48 | P.PNNP_ITS ---
Subjective Subjective Date of Service: 09/06/21 Principal diagnosis: CHF Interval history: seen and examined, events noted Physical Exam Vital Signs: Vital Signs: Last Vital Signs Temp 97.2 F 09/06/21 07:32 Pulse 80 09/06/21 07:32 Resp 18 09/06/21 07:32 BP 119/64 09/06/21 07:32 Pulse Ox 96 09/06/21 07:32 Body Mass Index 24.8 Const: General: cooperative, healthy appearing, comfortable, no acute distress, alert and awake Orientation/consciousness: patient oriented x3 Limitations: no limitations HENMT: Head: Yes normal to inspection Ears: hearing grossly normal bilaterally General nose exam: Normal external nose present Face and sinus: Yes normal facial exam Mouth: Normal oral and palatal mucosa present Throat: Yes posterior oropharynx normal Eyes: General: appearance normal, both eyes and all related structures Pupils: Equal, round and reactive pupils present Neck: Neck: Yes normal visual inspection and Yes JVD (to below jaw) Chest: Chest palpation & inspection: normal inspection of the chest Resp: Effort & Inspection: normal respiratory effort, able to speak in complete sentences and not labored Auscultation: clear to auscultation bilaterally, rales, no rhonchi, no wheezes and diminished lung sounds Cardio: Jugular venous distension: JVD present Palpation: normal PMI Rate: regular rate Rhythm: regular rhythm and abnormal rhythm irregularly irregular Heart sounds: S1 normal heart sound present and S2 normal heart sound present Peripheral pulses: Peripheral pulses 2+ throughout GI: Inspection: Yes normal to inspection Palpation (GI): Soft to palpation and nontender Auscultation: normal bowel sounds Back/Spine/Pelvis: Thoracic/Lumbar Spine: thoracic and lumbar spine normal to inspection Skin: General skin exam: no rashes or lesions noted Neuro: General: patient oriented x3, no focal motor deficits and normal sensation to monofilament Cranial nerves: Yes Equal, round and reactive pupils present Cognition (Neuro): normal cognition Speech: No Abnormal speech present Gait exam (Neuro): Normal gait present Motor exam (neuro): 5/5 motor strength present throughout Extrem: Other: +2 pitting edema right lower leg, below knee down General: Yes normal to inspection Objective Data Labs CBC & Chem 7: 09/04/21 06:11 09/06/21 05:27 Labs: Laboratory Results - last 24 hr 1009/06/21 09/06/21 05:40 05:27 05:27 PT 36.7 H INR 3.1 H Sodium 143 144 Potassium 3.6 3.7 Chloride 111 H 111 H Carbon Dioxide 23 23 Anion Gap 13 14 BUN 70 H 72 H Creatinine 3.02 H 3.08 H Estim Creat Clear Calc 18.1 17.7 Estimated GFR 15 15 Random Glucose 85 92 Calcium 7.8 L 7.9 L Microbiology Microbiology Results: Microbiology 09/03/21 19:24 Urine clean catch - Urine xiong top Urine Culture - Final Procedures Date of Service Date of Service: 09/06/21 Assessment & Plan Assessment and plan (1) Acute on chronic heart failure with reduced ejection fraction and diastolic dysfunction: Status: Acute (2) Ischemic cardiomyopathy: Status: Acute (3) H/O mitral valve replacement: Status: Acute (4) Amyloidosis: Status: Acute (5) ICD (implantable cardioverter-defibrillator) in place: Status: Acute (6) Chronic atrial fibrillation: Status: Acute Assessment and Plan: Tele shows afib, rate 80s. On Carvedilol for heart rate control. On coumadin for anticoagulation. (7) Chronic kidney disease (CKD) stage G4/A1, severely decreased glomerular filtration rate (GFR) between 15-29 mL/min/1.73 square meter and albuminuria creatinine ratio less than 30 mg/g: Status: Acute Assessment and Plan: 1. CKD 4: adv CKD SCr 2.5-3.0 h/o amyloidand IgA on prior BX 2018 etiolofadv CKD likely combinationof AAamyloid/IgA and CRSyn 2.dCHF: valvular [place] and HFrEF and ?card amyloid diuresing well on diuretics and renal func stable persistent R leg edema w neg U/S...leg stockings 3. MBD of CKD: check PTH REC cont diuresis and track UOP/renal func; avoid NToxins; at rsik for prog to ESRD in next 6-12 months so protect LUE and will need close f/u as outpt; leg stockings Time Spent With Patient Time: Total time spent is greater than 50% in coordination of care (as docume nted) at patient's floor/unit and/or counseling patient: Progress Note: Quality Stroke Does the patient have a stroke diagnosis?: No
--- NOTE | 2021-09-06 11:38 | PM.PNCARD ---
Subjective Subjective Date of Service: 09/06/21 <GEOVANNY Britton - Last Filed: 09/06/21 11:49> 09/07/21 <Garth Winters MD - Last Filed: 09/07/21 12:32> Principal diagnosis: CHF <GEOVANNY Britton - Last Filed: 09/06/21 11:49> Interval history: Cardiology follow up for CHF. Seen at 1010. Today she reports breathing is comfortable. Slept well last night with HOB mildly elevated. No chest pains, palpitations, dizziness. Left leg edema still present. Concerned that she still has extra fluid in body. Discussed plan of care with her. <GEOVANNY Britton - Last Filed: 09/06/21 11:49> Review of Systems Review of Systems as above <GEOVANNY Britton - Last Filed: 09/06/21 11:49> Yes all other systems are reviewed and are negative <GEOVANNY Britton - Last Filed: 09/06/21 11:49> Physical Exam Vital Signs: Last Vital Signs Temp 97.9 F 09/06/21 11:23 Pulse 84 09/06/21 11:23 Resp 18 09/06/21 11:23 BP 107/53 L 09/06/21 11:23 Pulse Ox 97 09/06/21 11:23 Body Mass Index 24.8 <GEOVANNY Britton - Last Filed: 09/06/21 11:49> Const General: cooperative, no acute distress, alert, awake and ill appearing (frail) <GEOVANNY Britton - Last Filed: 09/06/21 11:49> Orientation/consciousness: patient oriented x3 <GEOVANNY Britton - Last Filed: 09/06/21 11:49> Neck Neck: Yes JVD (to jaw) <GEOVANNY Britton - Last Filed: 09/06/21 11:49> Resp Effort & Inspection: normal respiratory effort, able to speak in complete sentences and not labored <GEOVANNY Britton - Last Filed: 09/06/21 11:49> Auscultation: clear to auscultation bilaterally, no rhonchi, no wheezes and diminished lung sounds (right lower lobe) <Melissa Frye NPC - Last Filed: 09/06/21 11:49> Cardio Jugular venous distension: JVD present <Melissa Frye NP - Last Filed: 09/06/21 11:49> Palpation: normal PMI <Melissa Frye NP - Last Filed: 09/06/21 11:49> Rate: regular rate <Melissa Frye NP - Last Filed: 09/06/21 11:49> Rhythm: abnormal rhythm irregularly irregular <Melissa Frye [facility] - Last Filed: 09/06/21 11:49> Heart sounds: S1 normal heart sound present, S2 normal heart sound present and Clicking heart sound present (mitral valve) <Melissa Frye NP - Last Filed: 09/06/21 11:49> Peripheral pulses: Peripheral pulses 2+ throughout <Melissa Frye NP - Last Filed: 09/06/21 11:49> GI Inspection: Yes normal to inspection <Melissa Frye NP - Last Filed: 09/06/21 11:49> Skin Other: Ecchimotic area right medial thigh <Melissa Frye NP - Last Filed: 09/06/21 11:49> General skin exam: no rashes or lesions noted <Melissa Frye NP - Last Filed: 09/06/21 11:49> Neuro General: patient oriented x3 <Melissa Frye NP - Last Filed: 09/06/21 11:49> Extrem Other: +2 pitting edema right leg to level of knee <Melissa Frye [facility] - Last Filed: 09/06/21 11:49> Results Labs and Meds Result diagrams: : 09/04/21 06:11 09/07/21 02:06 <Melissa Frye [employer] - Last Filed: 09/06/21 11:49> Lab results: Laboratory Results - last 24 hr 09/06/21 09/06/21 05:27 05:27 PT 36.7 H INR 3.1 H Sodium 144 Potassium 3.7 Chloride 111 H Carbon Dioxide 23 Anion Gap 14 BUN 72 H Creatinine 3.08 H Estim Creat Clear Calc 17.7 Estimated GFR 15 Random Glucose 92 Calcium 7.9 L <GEOVANNY Britton - Last Filed: 09/06/21 11:49> Progress Note: A&P Assessment and plan (1) Acute on chronic heart failure with reduced ejection fraction and diastolic dysfunction: Status: Acute <GEOVANNY Britton - Last Filed: 09/06/21 11:49> Assessment and Plan: Admit with sob and leg edema. Last echo with EF 15-20%, normally functioning mechanical MVR, mod to severe TR. She is being diuresed with IV lasix with negative fluid balance of 2420 cc since admit. Has known CKD. Cr 3.08 today, was 3.09 yesterday. Sat 96% on RA. Reports breathing is comfortable. Dim in right base, + JVD and ongoing edema right lower leg. Still fluid overloaded. Continue to diurese with IV Lasix, will increase dose from 20mg bid to 40mg bid. Strict I+O monitoring. Close monitoring of electrolytes and kidney function. Electrolyte replacement as warranted. Continue Imdur. We will follow <GEOVANNY Britton - Last Filed: 09/06/21 11:49> (2) Ischemic cardiomyopathy: Status: Acute <GEOVANNY Britton - Last Filed: 09/06/21 11:49> Assessment and Plan: Follows with Dr Estrella as outpt.? Last EF 15-20%. Has ICD in place. Continue Carvedilol, Imdur, Aspirin, atorvastatin. <GEOVANNY Britton - Last Filed: 09/06/21 11:49> (3) H/O mitral valve replacement: Status: Acute <GEOVANNY Britton - Last Filed: 09/06/21 11:49> Assessment and Plan: Mechanical MVR. On coumadin and aspirin for anticoagulation. INR goal 2.5-3.5. INR 3.1 today. Has chronic anemia, hgb 9.6, stable. No signs of bleeding. Last echo shows MVR functioning normally. <GEOVANNY Britton - Last Filed: 09/06/21 11:49> Fall Risk Details Current Medications: Current Medications Acetaminophen (Acetaminophen 325 Mg Tablet) 650 mg PO Q6H PRN PRN Reason: Pain, Mild (Pain Scale 1-3) Last Admin: 09/05/21 17:44 Dose: 650 mg Documented by: Acetaminophen (Acetaminophen 325 Mg Tablet) 325 mg PO QID PRN PRN Reason: Pain Last Admin: 09/04/21 21:50 Dose: 325 mg Documented by: Aspirin (Aspirin Enteric Coated 81 Mg Tablet.) 81 mg PO DAILY [facility] Last Admin: 09/06/21 09:07 Dose: 81 mg Documented by: Atorvastatin Calcium (Atorvastatin Calcium 40 Mg Tablet) 40 mg PO DAILY [facility] Last Admin: 09/06/21 09:07 Dose: 40 mg Documented by: Carvedilol (Carvedilol 25 Mg Tablet) 25 mg PO BIDWM [facility]; Protocol Last Admin: 09/06/21 09:07 Dose: 25 mg Documented by: Docusate Sodium (Docusate Sodium 100 Mg Capsule) 200 mg PO BEDTIME [facility] Last Admin: 09/05/21 19:48 Dose: 200 mg Documented by: Ferrous Sulfate (Ferrous Sulfate 324 Mg Tablet.) 324 mg PO BID [facility] Last Admin: 09/06/21 09:07 Dose: 324 mg Documented by: Fluoxetine HCl (Fluoxetine Hcl 20 Mg Capsule) 20 mg PO DAILY [facility] Last Admin: 09/06/21 09:07 Dose: 20 mg Documented by: Furosemide (Furosemide 20 Mg/2 Ml Vial) 20 mg IVPUSH BIDWM [facility]; Protocol Last Admin: 09/06/21 09:07 Dose: 20 mg Documented by: Isosorbide Dinitrate (Isosorbide Dinitrate 5 Mg Tablet) 5 mg PO BID [facility]; Protocol Last Admin: 09/06/21 09:07 Dose: 5 mg Documented by: Levothyroxine Sodium (Levothyroxine Sodium 112 Mcg Tablet) 112 mcg PO DAILY@0600 [facility] Last Admin: 09/06/21 05:57 Dose: 112 mcg Documented by: Levothyroxine Sodium (Levothyroxine Sodium 25 Mcg Tablet) 25 mcg PO DAILY@0600 [facility] Last Admin: 09/06/21 05:57 Dose: 25 mcg Documented by: Melatonin (Melatonin 3 Mg Tablet) 6 mg PO BEDTIME PRN PRN Reason: Insomnia Omeprazole (Omeprazole 20 Mg Capsule.) 20 mg PO DAILY@0630 [facility] Last Admin: 09/06/21 05:57 Dose: 20 mg Documented by: Potassium Chloride (Potassium Chloride Er 20 Meq Tab.Er.Prt) 20 meq PO Q48H [facility] Last Admin: 09/05/21 10:23 Dose: 20 meq Documented by: Senna (Sennosides 8.6 Mg Tablet) 17.2 mg PO BEDTIME PRN PRN Reason: Constipation Last Admin: 09/05/21 17:45 Dose: 17.2 mg Documented by: Sodium Chloride (0.9 % Sodium Chloride Flush 3 Ml Syringe) 3 ml IVFLUSH QSHIFT [facility] Last Admin: 09/06/21 09:08 Dose: 3 ml Documented by: Trazodone HCl (Trazodone Hcl 50 Mg Tablet) 50 mg PO DAILY PRN PRN Reason: for insomnia Last Admin: 09/04/21 21:49 Dose: 50 mg Documented by: Warfarin Sodium (Warfarin Sodium 1.25 Mg Halftab) 1.25 mg PO SUTUTHSA@1800 [facility] Last Admin: 09/05/21 17:40 Dose: 1.25 mg Documented by: Warfarin Sodium (Warfarin Sodium 2.5 Mg Tablet) 2.5 mg PO MOWEFR@1800 [facility] Last Admin: 09/04/21 17:14 Dose: 2.5 mg Documented by: <GEOVANNY Britton - Last Filed: 09/06/21 11:49> Time Spent With Patient Time: Total time spent is greater than 50% in coordination of care (as documented) at patient's floor/unit and/or counseling patient: <GEOVANNY Britton - Last Filed: 09/06/21 11:49> Time with patient: 15 - 24 minutes <GEOVANNY Britton - Last Filed: 09/06/21 11:49> Progress Note: Quality Stroke Does the patient have a stroke diagnosis?: No <GEOVANNY Britton - Last Filed: 09/06/21 11:49> Procedures Date of Service Date of Service: 09/06/21 <GEOVANNY Britton - Last Filed: 09/06/21 11:49>
[2021-09-06] MEDS: Furosemide 40 MG/4 ML VIAL IVPUSH ×2 (12:08→17:07)
[2021-09-06 16:01] LABS: Calcium (PTHI) 8.2 mg/dL (8.6-10.4); PTHI 169 pg/mL (14-64)
[2021-09-06] MEDS: Warfarin Sodium 2.5 MG TABLET PO (17:08)
[2021-09-06] MEDS: Docusate Sodium 100 MG CAPSULE 200 MG PO (20:16)
--- NOTE | 2021-09-06 21:13 | PC.NURSE ---
1999 pt had SVT [address] chamorro notified.pt asymptomatic.no new orders at this time.
[2021-09-06] MEDS: Acetaminophen 325 MG TABLET 650 MG PO (23:39)
[2021-09-07] VITALS (9 sets, daily range): BP systolic 103–138; BP diastolic 52–74; PULSE 70–84; RESP 15–20; TEMP 36.2–37.2; O2SAT 94–98
--- NOTE | 2021-09-07 02:02 | PC.NURSE ---
three runs of VT reported to CECI NOGUEIRA, Asymptomatic. BMP and Mag ordered STAT
[2021-09-07 02:32] LABS: Anion Gap 11 (12-20); Blood Urea Nitrogen 73 mg/dL (9-16); Calcium 8.2 mg/dL (8.4-10.2); Carbon Dioxide 27 mmol/L (22-29); Chloride 109 mmol/L (96-108); Estimated Glomerular Filt Rate 16; Glucose Random 119 mg/dL (60-115); Magnesium 1.9 mg/dL (1.6-2.6); Sodium 143 mmol/L (135-145)
[2021-09-07] MEDS: Levothyroxine Sodium 25 MCG TABLET PO (06:30)
[2021-09-07] MEDS: Levothyroxine Sodium 112 MCG TABLET PO (06:30)
[2021-09-07] MEDS: Omeprazole 20 MG CAPSULE.DR PO (06:31)
--- NOTE | 2021-09-07 06:33 | PC.NURSE ---
scanned am meds but did not save. prilosec and levothyroxine
[2021-09-07] MEDS: Atorvastatin Calcium 40 MG TABLET PO (09:14)
[2021-09-07] MEDS: Potassium Chloride ER 20 MEQ TAB.ER.PRT PO (09:14)
[2021-09-07] MEDS: FLUoxetine HCl 20 MG CAPSULE PO (09:14)
[2021-09-07] MEDS: carvediloL 25 MG TABLET PO ×2 (09:15→17:43)
[2021-09-07] MEDS: Isosorbide Dinitrate 5 MG TABLET PO ×2 (09:15→21:23)
[2021-09-07] MEDS: 0.9 % Sodium Chloride Flush 3 ML SYRINGE IVFLUSH ×2 (09:15→17:43)
[2021-09-07] MEDS: Furosemide 40 MG/4 ML VIAL IVPUSH ×2 (09:15→17:43)
[2021-09-07] MEDS: Aspirin Enteric Coated 81 MG TABLET.DR PO (09:15)
[2021-09-07] MEDS: Ferrous Sulfate 324 MG TABLET.DR PO ×2 (09:15→21:23)
--- NOTE | 2021-09-07 09:18 | PM.PNNEP ---
Subjective Subjective Date of Service: 09/07/21 Principal diagnosis: CHF Interval history: seen and examined, events noted discussed with medical attending no complaints Physical Exam Vital Signs: Vital Signs: Last Vital Signs Temp 97.3 F 09/07/21 07:38 Pulse 79 09/07/21 07:38 Resp 20 09/07/21 07:38 BP 120/74 09/07/21 07:38 Pulse Ox 94 09/07/21 07:38 Body Mass Index 24.8 Const: General: comfortable and no acute distress HENMT: Head: Yes normocephalic and Yes atraumatic Neck: Neck: Yes supple Resp: Auscultation: diminished lung sounds Cardio: Heart sounds: S1 normal heart sound present and S2 normal heart sound present GI: Palpation (GI): Soft to palpation and nontender Neuro: General: moves all extremities Extrem: General: Yes edema Objective Data Labs CBC & Chem 7: 09/04/21 06:11 09/07/21 02:06 Labs: Laboratory Results - last 24 hr 09/05/21 09/07/21 05:40 02:06 Sodium 143 Potassium 4.0 Chloride 109 H Carbon Dioxide 27 Anion Gap 11 L BUN 73 H Creatinine 2.87 H Estim Creat Clear Calc 19.0 Estimated GFR 16 Random Glucose 119 H Calcium 8.2 L Magnesium 1.9 PTH Intact 169 H Calcium (PTH Intact) 8.2 L Microbiology Microbiology Results: Microbiology 09/03/21 19:24 Urine clean catch - Urine xiong top Urine Culture - Final Procedures Date of Service Date of Service: 09/07/21 Assessment & Plan Assessment and plan (1) CKD (chronic kidney disease) stage 4, GFR 15-29 ml/min: Status: Acute (2) Chronic HFrEF (heart failure with reduced ejection fraction): Status: Acute (3) Amyloidosis: Status: Acute (4) Anemia: Status: Acute Assessment and Plan: Scr marginally better 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
--- NOTE | 2021-09-07 09:22 | HO.PM.IMPN ---
Subjective Subjective Date of Service: 09/07/21 Interval History: Seen in f/u for heart failure exacerbation, feels better, no sob Review of Systems no fever no sob Physical Exam Vital Signs: Vital Signs: Last Vital Signs Temp 97.3 F 09/07/21 07:38 Pulse 79 09/07/21 07:38 Resp 20 09/07/21 07:38 BP 120/74 09/07/21 07:38 Pulse Ox 94 09/07/21 07:38 Body Mass Index 24.8 Const: Other: GENERAL APPEARANCE: in no acute distress, pleasant. NECK: no carotid bruit, positive jugular venous distention. SKIN: no suspicious lesions, warm and dry. HEART:? Mechanical 1st heart sound, S3 galop, +jvd LUNGS: clear to auscultation bilaterally. ABDOMEN: soft, nontender. EXTREMITIES:? 2+ edema edema, right >left PERIPHERAL PULSES: equal. NEUROLOGIC: No gross deficits, AAO X 3 Objective Data Active Medications Acetaminophen (Acetaminophen 325 Mg Tablet) 650 mg PO Q6H PRN PRN Reason: Pain, Mild (Pain Scale 1-3) Last Admin: 09/06/21 23:39 Dose: 650 mg Documented by: ALLAN Acetaminophen (Acetaminophen 325 Mg Tablet) 325 mg PO QID PRN PRN Reason: Pain Last Admin: 09/04/21 21:50 Dose: 325 mg Documented by: RM Aspirin (Aspirin Enteric Coated 81 Mg Tablet.) 81 mg PO DAILY [facility] Last Admin: 09/07/21 09:15 Dose: 81 mg Documented by: LINDA Atorvastatin Calcium (Atorvastatin Calcium 40 Mg Tablet) 40 mg PO DAILY [facility] Last Admin: 09/07/21 09:14 Dose: 40 mg Documented by: LINDA Carvedilol (Carvedilol 25 Mg Tablet) 25 mg PO BIDWM [facility]; Protocol Last Admin: 09/07/21 09:15 Dose: 25 mg Documented by: LINDA Docusate Sodium (Docusate Sodium 100 Mg Capsule) 200 mg PO BEDTIME [facility] Last Admin: 09/06/21 20:16 Dose: 200 mg Documented by: STEFANIE Ferrous Sulfate (Ferrous Sulfate 324 Mg Tablet.) 324 mg PO BID [facility] Last Admin: 09/07/21 09:15 Dose: 324 mg Documented by: LINDA Fluoxetine HCl (Fluoxetine Hcl 20 Mg Capsule) 20 mg PO DAILY [facility] Last Admin: 09/07/21 09:14 Dose: 20 mg Documented by: LINDA Furosemide (Furosemide 40 Mg/4 Ml Vial) 40 mg IVPUSH BID@0900,1800 [facility]; Protocol Last Admin: 09/07/21 09:15 Dose: 40 mg Documented by: LINDA Isosorbide Dinitrate (Isosorbide Dinitrate 5 Mg Tablet) 5 mg PO BID [facility]; Protocol Last Admin: 09/07/21 09:15 Dose: 5 mg Documented by: LINDA Levothyroxine Sodium (Levothyroxine Sodium 112 Mcg Tablet) 112 mcg PO DAILY@0600 [facility] Last Admin: 09/07/21 06:30 Dose: 112 mcg Documented by: ALLAN Levothyroxine Sodium (Levothyroxine Sodium 25 Mcg Tablet) 25 mcg PO DAILY@0600 [facility] Last Admin: 09/07/21 06:30 Dose: 25 mcg Documented by: ALLAN Melatonin (Melatonin 3 Mg Tablet) 6 mg PO BEDTIME PRN PRN Reason: Insomnia Omeprazole (Omeprazole 20 Mg Capsule.) 20 mg PO DAILY@0630 [facility] Last Admin: 09/07/21 06:31 Dose: 20 mg Documented by: ALLAN Potassium Chloride (Potassium Chloride Er 20 Meq Tab.Er.Prt) 20 meq PO Q48H [facility] Last Admin: 09/07/21 09:14 Dose: 20 meq Documented by: LINDA Senna (Sennosides 8.6 Mg Tablet) 17.2 mg PO BEDTIME PRN PRN Reason: Constipation Last Admin: 09/05/21 17:45 Dose: 17.2 mg Documented by: EDDIE Sodium Chloride (0.9 % Sodium Chloride Flush 3 Ml Syringe) 3 ml IVFLUSH QSHIFT [facility] Last Admin: 09/07/21 09:15 Dose: 3 ml Documented by: LINDA Trazodone HCl (Trazodone Hcl 50 Mg Tablet) 50 mg PO DAILY PRN PRN Reason: for insomnia Last Admin: 09/04/21 21:49 Dose: 50 mg Documented by: RM Warfarin Sodium (Warfarin Sodium 1.25 Mg Halftab) 1.25 mg PO SUTUTHSA@1800 [facility] Last Admin: 09/05/21 17:40 Dose: 1.25 mg Documented by: EDDIE Warfarin Sodium (Warfarin Sodium 2.5 Mg Tablet) 2.5 mg PO MOWEFR@1800 [facility] Last Admin: 09/06/21 17:08 Dose: 2.5 mg Documented by: STEFANIE Labs CBC & Chem 7: 09/04/21 06:11 09/07/21 02:06 Labs: Laboratory Results - last 24 hr 09/05/21 09/07/21 05:40 02:06 Anion Gap 11 L Estim Creat Clear Calc 19.0 Estimated GFR 16 Random Glucose 119 H Calcium 8.2 L Magnesium 1.9 PTH Intact 169 H Calcium (PTH Intact) 8.2 L Assessment and Plan (1) CKD (chronic kidney disease) stage 4, GFR 15-29 ml/min: Status: Acute (2) Acute on chronic heart failure with reduced ejection fraction and diastolic dysfunction: Status: Acute Assessment and Plan: 71-year-old female with a past medical history of hypertension, hyperlipidemia, CAD, CHF with reduced ejection fraction, status post AICD/pacemaker, CKD, hypothyroidism, pulmonary hypertension, history of mechanical mitral and aortic valve-on Coumadin; history of retinal detachment; history of bladder cancer, amyloidosis, arthritis, anxiety, depression, obesity presented to the hospital with a chief complaint of leg swelling. Leg swelling:?no evidence of cellulitis, no DVT,. likely from CHF ?acute/chronic HFrEF with persistent edema -continue IV Lasix, I/O, cardiology consult, follow BMP, thus far negative 3400 - continue carvedilol, isosorbide dinitrate, cardiology following CKD 4, stable. cr is slightly better today History of mechanical mitral wall:?continue anticoagulation with coumadin, follow INR, 2.87 on 09/06, check tomorrow History of hypothyroidism:? Continue home levothyroxine History of hypertension/hyperlipidemia:? Continue home Coreg/Imdur/statin ?hypothyroidism - continue LT4 ?mood disorder - continue fluoxetine home with VNA when ready Quality Stroke Does the patient have a stroke diagnosis?: No VTE Prior VTE?: No VTE Risk Level:: Medical - moderate - high VTE Device Contraindication: Treatment Not Indicated VTE Drug Contraindication: Treatment Not Indicated
[2021-09-07 09:48] LABS: INTERNATIONAL NORM RATIO 3.1 (0.9-1.1)
--- NOTE | 2021-09-07 12:33 | P.PNCA_ITS ---
Subjective Subjective Date of Service: 09/07/21 Principal diagnosis: CHF Interval history: Diuresing better with higher dose diuretic. Creatinine is improving. Physical Exam Vital Signs: Last Vital Signs Temp 98.9 F 09/07/21 11:29 Pulse 74 09/07/21 11:44 Resp 18 09/07/21 11:29 BP 120/74 09/07/21 11:44 Pulse Ox 97 09/07/21 11:29 Body Mass Index 24.8 GENERAL APPEARANCE: in no acute distress, pleasant. NECK: no carotid bruit, positive jugular venous distention. SKIN: no suspicious lesions, warm and dry. HEART:? Mechanical 1st heart sound. LUNGS: clear to auscultation bilaterally. ABDOMEN: soft, nontender. EXTREMITIES:? 1+ edema edema. PERIPHERAL PULSES: equal. NEUROLOGIC: No gross deficits, AAO X 3 Results Labs and Meds Result diagrams: 09/04/21 06:11 09/07/21 02:06 Lab results: Laboratory Results - last 24 hr 09/05/21 09/07/21 09/07/21 05:40 02:06 09:04 PT 36.0 H INR 3.1 H Sodium 143 Potassium 4.0 Chloride 109 H Carbon Dioxide 27 Anion Gap 11 L BUN 73 H Creatinine 2.87 H Estim Creat Clear Calc 19.0 Estimated GFR 16 Random Glucose 119 H Calcium 8.2 L Magnesium 1.9 PTH Intact 169 H Calcium (PTH Intact) 8.2 L Progress Note: A&P Assessment and plan (1) Anemia: Status: Acute (2) CKD (chronic kidney disease) stage 4, GFR 15-29 ml/min: Status: Acute (3) Acute on chronic heart failure with reduced ejection fraction and diastolic dysfunction: Status: Acute Assessment and Plan: 71-year-old female with known chronic heart failure with reduced ejection fraction, chronic kidney disease, mitral valve replacement on chronic Coumadin therapy and anemia is presenting with lower extremity edema and congestive heart failure. She has right more than left heart failure at this point. Diuresing her and she is improving with diuresis at this point with improving kidney function. Continue IV diuretics today and will reassess her tomorrow whether she needs more IV therapy or not. Thank you for allowing me to participate in the care of your patient. Please feel free to contact me if you have any questions. Fall Risk Details Current Medications: Current Medications Acetaminophen (Acetaminophen 325 Mg Tablet) 650 mg PO Q6H PRN PRN Reason: Pain, Mild (Pain Scale 1-3) Last Admin: 09/06/21 23:39 Dose: 650 mg Documented by: Acetaminophen (Acetaminophen 325 Mg Tablet) 325 mg PO QID PRN PRN Reason: Pain Last Admin: 09/04/21 21:50 Dose: 325 mg Documented by: Aspirin (Aspirin Enteric Coated 81 Mg Tablet.) 81 mg PO DAILY [facility] Last Admin: 09/07/21 09:15 Dose: 81 mg Documented by: Atorvastatin Calcium (Atorvastatin Calcium 40 Mg Tablet) 40 mg PO DAILY [facility] Last Admin: 09/07/21 09:14 Dose: 40 mg Documented by: Carvedilol (Carvedilol 25 Mg Tablet) 25 mg PO BIDWM [facility] [place]; Protocol Last Admin: 09/07/21 09:15 Dose: 25 mg Documented by: Docusate Sodium (Docusate Sodium 100 Mg Capsule) 200 mg PO BEDTIME [facility] [place] Last Admin: 09/06/21 20:16 Dose: 200 mg Documented by: Ferrous Sulfate (Ferrous Sulfate 324 Mg Tablet.) 324 mg PO BID [facility] [place] Last Admin: 09/07/21 09:15 Dose: 324 mg Documented by: Fluoxetine HCl (Fluoxetine Hcl 20 Mg Capsule) 20 mg PO DAILY [facility] [place] Last Admin: 09/07/21 09:14 Dose: 20 mg Documented by: Furosemide (Furosemide 40 Mg/4 Ml Vial) 40 mg IVPUSH BID@0900,1800 [facility]; Protocol Last Admin: 09/07/21 09:15 Dose: 40 mg Documented by: Isosorbide Dinitrate (Isosorbide Dinitrate 5 Mg Tablet) 5 mg PO BID [facility] [place]; Protocol Last Admin: 09/07/21 09:15 Dose: 5 mg Documented by: Levothyroxine Sodium (Levothyroxine Sodium 112 Mcg Tablet) 112 mcg PO DAILY@0600 [facility] Last Admin: 09/07/21 06:30 Dose: 112 mcg Documented by: Levothyroxine Sodium (Levothyroxine Sodium 25 Mcg Tablet) 25 mcg PO DAILY@0600 [facility] Last Admin: 09/07/21 06:30 Dose: 25 mcg Documented by: Melatonin (Melatonin 3 Mg Tablet) 6 mg PO BEDTIME PRN PRN Reason: Insomnia Omeprazole (Omeprazole 20 Mg Capsule.) 20 mg PO DAILY@0630 [facility] Last Admin: 09/07/21 06:31 Dose: 20 mg Documented by: Potassium Chloride (Potassium Chloride Er 20 Meq Tab.Er.Prt) 20 meq PO Q48H [facility] [place] Last Admin: 09/07/21 09:14 Dose: 20 meq Documented by: Senna (Sennosides 8.6 Mg Tablet) 17.2 mg PO BEDTIME PRN PRN Reason: Constipation Last Admin: 09/05/21 17:45 Dose: 17.2 mg Documented by: Sodium Chloride (0.9 % Sodium Chloride Flush 3 Ml Syringe) 3 ml IVFLUSH QSHIFT [facility] [place] Last Admin: 09/07/21 09:15 Dose: 3 ml Documented by: Trazodone HCl (Trazodone Hcl 50 Mg Tablet) 50 mg PO DAILY PRN PRN Reason: for insomnia Last Admin: 09/04/21 21:49 Dose: 50 mg Documented by: Warfarin Sodium (Warfarin Sodium 1.25 Mg Halftab) 1.25 mg PO SUTUTHSA@1800 [facility] [place] Last Admin: 09/05/21 17:40 Dose: 1.25 mg Documented by: Warfarin Sodium (Warfarin Sodium 2.5 Mg Tablet) 2.5 mg PO MOWEFR@1800 [facility] [place] Last Admin: 09/06/21 17:08 Dose: 2.5 mg Documented by: Time Spent With Patient Time: Total time spent is greater than 50% in coordination of care (as documented) at patient's floor/unit and/or counseling patient: Time with patient: 15 - 24 minutes Progress Note: Quality Stroke Does the patient have a stroke diagnosis?: No Procedures Date of Service Date of Service: 09/07/21
[2021-09-07] MEDS: Acetaminophen 325 MG TABLET 650 MG PO (15:51)
[2021-09-07] MEDS: Docusate Sodium 100 MG CAPSULE 200 MG PO (21:23)
[2021-09-07] MEDS: traZODone HCL 50 MG TABLET PO (21:24)
[2021-09-07] MEDS: Warfarin Sodium 1.25 MG HALFTAB PO (22:10)
[2021-09-08] VITALS (8 sets, daily range): BP systolic 100–131; BP diastolic 51–73; PULSE 69–89; RESP 16–18; TEMP 36.1–36.9; O2SAT 94–97
[2021-09-08] MEDS: 0.9 % Sodium Chloride Flush 3 ML SYRINGE IVFLUSH ×4 (00:26→20:10)
[2021-09-08] MEDS: Omeprazole 20 MG CAPSULE.DR PO (05:41)
[2021-09-08] MEDS: Levothyroxine Sodium 25 MCG TABLET PO (05:41)
[2021-09-08] MEDS: Levothyroxine Sodium 112 MCG TABLET PO (05:41)
[2021-09-08 06:27] LABS: INTERNATIONAL NORM RATIO 3.1 (0.9-1.1)
[2021-09-08 08:03] LABS: Anion Gap 13 (12-20); Blood Urea Nitrogen 73 mg/dL (9-16); Calcium 8.4 mg/dL (8.4-10.2); Carbon Dioxide 28 mmol/L (22-29); Chloride 107 mmol/L (96-108); Creatinine Clr Calc Pharmacy 20.5; Estimated Glomerular Filt Rate 18; Glucose Random 88 mg/dL (60-115); Potassium 4.1 mmol/L (3.3-5.1); Sodium 144 mmol/L (135-145)
[2021-09-08] MEDS: Atorvastatin Calcium 40 MG TABLET PO (08:39)
[2021-09-08] MEDS: carvediloL 25 MG TABLET PO ×2 (08:39→17:18)
[2021-09-08] MEDS: Aspirin Enteric Coated 81 MG TABLET.DR PO (08:39)
[2021-09-08] MEDS: Furosemide 40 MG/4 ML VIAL IVPUSH ×2 (08:39→17:17)
[2021-09-08] MEDS: Isosorbide Dinitrate 5 MG TABLET PO ×2 (08:39→20:09)
[2021-09-08] MEDS: Ferrous Sulfate 324 MG TABLET.DR PO ×2 (08:39→20:15)
[2021-09-08] MEDS: FLUoxetine HCl 20 MG CAPSULE PO (08:39)
[2021-09-08] MEDS: Acetaminophen 325 MG TABLET 650 MG PO ×2 (08:40→22:43)
--- NOTE | 2021-09-08 08:46 | PM.PNNEP ---
Subjective Subjective Date of Service: 09/08/21 Principal diagnosis: CHF Interval history: Seen and examined feels better, no sob Physical Exam Vital Signs: Vital Signs: Last Vital Signs Temp 98.1 F 09/08/21 07:51 Pulse 77 09/08/21 07:51 Resp 18 09/08/21 07:51 BP 131/73 09/08/21 07:51 Pulse Ox 95 09/08/21 07:51 Body Mass Index 24.8 Const: General: comfortable and no acute distress HENMT: Head: Yes normocephalic and Yes atraumatic Neck: Neck: Yes supple Resp: Auscultation: diminished lung sounds Cardio: Heart sounds: S1 normal heart sound present and S2 normal heart sound present GI: Palpation (GI): Soft to palpation and nontender Neuro: General: moves all extremities Extrem: General: Yes edema Objective Data Labs CBC & Chem 7: 09/04/21 06:11 09/08/21 05:49 Labs: Laboratory Results - last 24 hr 09/07/21 09/08/21 09/08/21 09:04 05:49 05:49 PT 36.0 H 36.0 H INR 3.1 H 3.1 H Sodium 144 Potassium 4.1 Chloride 107 Carbon Dioxide 28 Anion Gap 13 BUN 73 H Creatinine 2.67 H Estim Creat Clear Calc 20.5 Estimated GFR 18 Random Glucose 88 Calcium 8.4 Microbiology Microbiology Results: Microbiology 09/03/21 19:24 Urine clean catch - Urine xiong top Urine Culture - Final Procedures Date of Service Date of Service: 09/08/21 Assessment & Plan Assessment and plan (1) CKD (chronic kidney disease) stage 4, GFR 15-29 ml/min: Status: Acute (2) Chronic HFrEF (heart failure with reduced ejection fraction): Status: Acute (3) Amyloidosis: Status: Acute (4) Anemia: Status: Acute Assessment and Plan: kidney function better 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
--- NOTE | 2021-09-08 08:56 | HO.PM.IMPN ---
Subjective Subjective Date of Service: 09/08/21 Interval History: Seen in f/u for heart failure exacerbation, feels better, no sob Review of Systems no fever no sob Physical Exam Vital Signs: Vital Signs: Last Vital Signs Temp 98.1 F 09/08/21 07:51 Pulse 77 09/08/21 07:51 Resp 18 09/08/21 07:51 BP 131/73 09/08/21 07:51 Pulse Ox 95 09/08/21 07:51 Body Mass Index 24.8 Const: Other: GENERAL APPEARANCE: in no acute distress, pleasant. NECK: no carotid bruit, positive jugular venous distention. SKIN: no suspicious lesions, warm and dry. HEART:? Mechanical 1st heart sound, S3 galop, +jvd LUNGS: clear to auscultation bilaterally. ABDOMEN: soft, nontender. EXTREMITIES:? 2+ edema edema, right >left PERIPHERAL PULSES: equal. NEUROLOGIC: No gross deficits, AAO X 3 Objective Data Active Medications Acetaminophen (Acetaminophen 325 Mg Tablet) 650 mg PO Q6H PRN PRN Reason: Pain, Mild (Pain Scale 1-3) Last Admin: 09/08/21 08:40 Dose: 650 mg Documented by: LINDA Acetaminophen (Acetaminophen 325 Mg Tablet) 325 mg PO QID PRN PRN Reason: Pain Last Admin: 09/04/21 21:50 Dose: 325 mg Documented by: RM Aspirin (Aspirin Enteric Coated 81 Mg Tablet.) 81 mg PO DAILY [facility] Last Admin: 09/08/21 08:39 Dose: 81 mg Documented by: LINDA Atorvastatin Calcium (Atorvastatin Calcium 40 Mg Tablet) 40 mg PO DAILY [facility] Last Admin: 09/08/21 08:39 Dose: 40 mg Documented by: LINDA Carvedilol (Carvedilol 25 Mg Tablet) 25 mg PO BIDWM [facility]; Protocol Last Admin: 09/08/21 08:39 Dose: 25 mg Documented by: LINDA Docusate Sodium (Docusate Sodium 100 Mg Capsule) 200 mg PO BEDTIME [facility] Last Admin: 09/07/21 21:23 Dose: 200 mg Documented by: KYLE Ferrous Sulfate (Ferrous Sulfate 324 Mg Tablet.) 324 mg PO BID [facility] Last Admin: 09/08/21 08:39 Dose: 324 mg Documented by: LINDA Fluoxetine HCl (Fluoxetine Hcl 20 Mg Capsule) 20 mg PO DAILY [facility] Last Admin: 09/08/21 08:39 Dose: 20 mg Documented by: LINDA Furosemide (Furosemide 40 Mg/4 Ml Vial) 40 mg IVPUSH BID@0900,1800 [facility]; Protocol Last Admin: 09/08/21 08:39 Dose: 40 mg Documented by: LINDA Isosorbide Dinitrate (Isosorbide Dinitrate 5 Mg Tablet) 5 mg PO BID [facility]; Protocol Last Admin: 09/08/21 08:39 Dose: 5 mg Documented by: LINDA Levothyroxine Sodium (Levothyroxine Sodium 112 Mcg Tablet) 112 mcg PO DAILY@0600 [facility] Last Admin: 09/08/21 05:41 Dose: 112 mcg Documented by: KYLE Levothyroxine Sodium (Levothyroxine Sodium 25 Mcg Tablet) 25 mcg PO DAILY@0600 [facility] Last Admin: 09/08/21 05:41 Dose: 25 mcg Documented by: KYLE Melatonin (Melatonin 3 Mg Tablet) 6 mg PO BEDTIME PRN PRN Reason: Insomnia Omeprazole (Omeprazole 20 Mg Capsule.) 20 mg PO DAILY@0630 [facility] Last Admin: 09/08/21 05:41 Dose: 20 mg Documented by: KYLE Potassium Chloride (Potassium Chloride Er 20 Meq Tab.Er.Prt) 20 meq PO Q48H [facility] Last Admin: 09/07/21 09:14 Dose: 20 meq Documented by: LINDA Senna (Sennosides 8.6 Mg Tablet) 17.2 mg PO BEDTIME PRN PRN Reason: Constipation Last Admin: 09/05/21 17:45 Dose: 17.2 mg Documented by: EDDIE Sodium Chloride (0.9 % Sodium Chloride Flush 3 Ml Syringe) 3 ml IVFLUSH QSHIFT [facility] Last Admin: 09/08/21 08:40 Dose: 3 ml Documented by: LINDA Trazodone HCl (Trazodone Hcl 50 Mg Tablet) 50 mg PO DAILY PRN PRN Reason: for insomnia Last Admin: 09/07/21 21:24 Dose: 50 mg Documented by: KYLE Warfarin Sodium (Warfarin Sodium 1.25 Mg Halftab) 1.25 mg PO SUTUTHSA@1800 [facility] Last Admin: 09/05/21 17:40 Dose: 1.25 mg Documented by: EDDIE Warfarin Sodium (Warfarin Sodium 2.5 Mg Tablet) 2.5 mg PO MOWEFR@1800 [facility] Last Admin: 09/06/21 17:08 Dose: 2.5 mg Documented by: STEFANIE Labs CBC & Chem 7: 09/04/21 06:11 09/08/21 05:49 Labs: Laboratory Results - last 24 hr 09/07/21 09/08/21 09/08/21 09:04 05:49 05:49 PT 36.0 H 36.0 H INR 3.1 H 3.1 H Anion Gap 13 Estim Creat Clear Calc 20.5 Estimated GFR 18 Random Glucose 88 Calcium 8.4 Assessment and Plan (1) CKD (chronic kidney disease) stage 4, GFR 15-29 ml/min: Status: Acute (2) Acute on chronic heart failure with reduced ejection fraction and diastolic dysfunction: Status: Acute Assessment and Plan: 71-year-old female with a past medical history of hypertension, hyperlipidemia, CAD, CHF with reduced ejection fraction, status post AICD/pacemaker, CKD, hypothyroidism, pulmonary hypertension, history of mechanical mitral and aortic valve-on Coumadin; history of retinal detachment; history of bladder cancer, amyloidosis, arthritis, anxiety, depression, obesity presented to the hospital with a chief complaint of leg swelling. Leg swelling:?no evidence of cellulitis, no DVT,. likely from CHF ?acute/chronic HFrEF with persistent edema -continue IV Lasix, I/O, cardiology consult, follow BMP, thus far negative 4700, possibly PO lasix today - continue carvedilol, isosorbide dinitrate, cardiology following CKD 4, stable. cr is slightly better today History of mechanical mitral wall:?continue anticoagulation with coumadin, follow INR, 2.87 on 09/06, check tomorrow History of hypothyroidism:? Continue home levothyroxine History of hypertension/hyperlipidemia:? Continue home Coreg/Imdur/statin ?hypothyroidism - continue LT4 ?mood disorder - continue fluoxetine home with VNA when ready Quality Stroke Does the patient have a stroke diagnosis?: No VTE Prior VTE?: No VTE Risk Level:: Medical - moderate - high VTE Device Contraindication: Treatment Not Indicated VTE Drug Contraindication: Treatment Not Indicated
--- NOTE | 2021-09-08 10:58 | PM.PNCARD ---
Subjective Subjective Date of Service: 09/08/21 Principal diagnosis: CHF Interval history: Edema improved. No symptoms Physical Exam Vital Signs: Last Vital Signs Temp 98.1 F 09/08/21 07:51 Pulse 77 09/08/21 07:51 Resp 18 09/08/21 07:51 BP 131/73 09/08/21 07:51 Pulse Ox 95 09/08/21 07:51 Body Mass Index 24.8 GENERAL APPEARANCE: in no acute distress, pleasant. NECK: no carotid bruit, no jugular venous distention. SKIN: no suspicious lesions, warm and dry. HEART:? Mechanical 1st heart sound. LUNGS: clear to auscultation bilaterally. ABDOMEN: soft, nontender. EXTREMITIES:?trace edema. PERIPHERAL PULSES: equal. NEUROLOGIC: No gross deficits, AAO X 3 Results Labs and Meds Result diagrams: 09/04/21 06:11 09/08/21 05:49 Lab results: Laboratory Results - last 24 hr 09/08/21 09/08/21 05:49 05:49 PT 36.0 H INR 3.1 H Sodium 144 Potassium 4.1 Chloride 107 Carbon Dioxide 28 Anion Gap 13 BUN 73 H Creatinine 2.67 H Estim Creat Clear Calc 20.5 Estimated GFR 18 Random Glucose 88 Calcium 8.4 Progress Note: A&P Assessment and plan (1) CKD (chronic kidney disease) stage 4, GFR 15-29 ml/min: Status: Acute (2) Acute on chronic heart failure with reduced ejection fraction and diastolic dysfunction: Status: Acute Assessment and Plan: 71-year-old female with known chronic heart failure with reduced ejection fraction, chronic kidney disease, mitral valve replacement on chronic Coumadin therapy and anemia is presenting with lower extremity edema and congestive heart failure.? She has right more than left heart failure at this point.? Volume status improved. Change to 40 mg po BID Lasix. Thank you for allowing me to participate in the care of your patient.? Please feel free to contact me if you have any questions. Fall Risk Details Current Medications: Current Medications Acetaminophen (Acetaminophen 325 Mg Tablet) 650 mg PO Q6H PRN PRN Reason: Pain, Mild (Pain Scale 1-3) Last Admin: 09/08/21 08:40 Dose: 650 mg Documented by: Acetaminophen (Acetaminophen 325 Mg Tablet) 325 mg PO QID PRN PRN Reason: Pain Last Admin: 09/04/21 21:50 Dose: 325 mg Documented by: Aspirin (Aspirin Enteric Coated 81 Mg Tablet.) 81 mg PO DAILY [facility] Last Admin: 09/08/21 08:39 Dose: 81 mg Documented by: Atorvastatin Calcium (Atorvastatin Calcium 40 Mg Tablet) 40 mg PO DAILY [facility] Last Admin: 09/08/21 08:39 Dose: 40 mg Documented by: Carvedilol (Carvedilol 25 Mg Tablet) 25 mg PO BIDWM [facility]; Protocol Last Admin: 09/08/21 08:39 Dose: 25 mg Documented by: Docusate Sodium (Docusate Sodium 100 Mg Capsule) 200 mg PO BEDTIME [facility] Last Admin: 09/07/21 21:23 Dose: 200 mg Documented by: Ferrous Sulfate (Ferrous Sulfate 324 Mg Tablet.) 324 mg PO BID [facility] Last Admin: 09/08/21 08:39 Dose: 324 mg Documented by: Fluoxetine HCl (Fluoxetine Hcl 20 Mg Capsule) 20 mg PO DAILY [facility] Last Admin: 09/08/21 08:39 Dose: 20 mg Documented by: Furosemide (Furosemide 40 Mg/4 Ml Vial) 40 mg IVPUSH BID@0900,1800 [facility]; Protocol Last Admin: 09/08/21 08:39 Dose: 40 mg Documented by: Isosorbide Dinitrate (Isosorbide Dinitrate 5 Mg Tablet) 5 mg PO BID [facility]; Protocol Last Admin: 09/08/21 08:39 Dose: 5 mg Documented by: Levothyroxine Sodium (Levothyroxine Sodium 112 Mcg Tablet) 112 mcg PO DAILY@0600 [facility] Last Admin: 09/08/21 05:41 Dose: 112 mcg Documented by: Levothyroxine Sodium (Levothyroxine Sodium 25 Mcg Tablet) 25 mcg PO DAILY@0600 [facility] Last Admin: 09/08/21 05:41 Dose: 25 mcg Documented by: Melatonin (Melatonin 3 Mg Tablet) 6 mg PO BEDTIME PRN PRN Reason: Insomnia Omeprazole (Omeprazole 20 Mg Capsule.) 20 mg PO DAILY@0630 [facility] Last Admin: 09/08/21 05:41 Dose: 20 mg Documented by: Potassium Chloride (Potassium Chloride Er 20 Meq Tab.Er.Prt) 20 meq PO Q48H [facility] Last Admin: 09/07/21 09:14 Dose: 20 meq Documented by: Senna (Sennosides 8.6 Mg Tablet) 17.2 mg PO BEDTIME PRN PRN Reason: Constipation Last Admin: 09/05/21 17:45 Dose: 17.2 mg Documented by: Sodium Chloride (0.9 % Sodium Chloride Flush 3 Ml Syringe) 3 ml IVFLUSH QSHIFT [facility] Last Admin: 09/08/21 08:40 Dose: 3 ml Documented by: Trazodone HCl (Trazodone Hcl 50 Mg Tablet) 50 mg PO DAILY PRN PRN Reason: for insomnia Last Admin: 09/07/21 21:24 Dose: 50 mg Documented by: Warfarin Sodium (Warfarin Sodium 1.25 Mg Halftab) 1.25 mg PO SUTUTHSA@1800 [facility] Last Admin: 09/05/21 17:40 Dose: 1.25 mg Documented by: Warfarin Sodium (Warfarin Sodium 2.5 Mg Tablet) 2.5 mg PO MOWEFR@1800 [facility] Last Admin: 09/06/21 17:08 Dose: 2.5 mg Documented by: Time Spent With Patient Time: Total time spent is greater than 50% in coordination of care (as documented) at patient's floor/unit and/or counseling patient: Time with patient: 15 - 24 minutes Progress Note: Quality Stroke Does the patient have a stroke diagnosis?: No Procedures Date of Service Date of Service: 09/08/21
[2021-09-08] MEDS: Warfarin Sodium 1.25 MG HALFTAB PO (17:18)
[2021-09-08] MEDS: Docusate Sodium 100 MG CAPSULE 200 MG PO (20:09)
[2021-09-09 03:47] VITALS: BP 103/52; PULSE 72; RESP 17; TEMP 36.3; O2SAT 96
[2021-09-09 05:17] LABS: INTERNATIONAL NORM RATIO 3.1 (0.9-1.1); Prothrombin Time 36.6 SEC (9.9-13.0)
[2021-09-09 05:23] LABS: Anion Gap 14 (12-20); Blood Urea Nitrogen 79 mg/dL (9-16); Carbon Dioxide 27 mmol/L (22-29); Chloride 105 mmol/L (96-108); Creatinine Clr Calc Pharmacy 22.3; Estimated Glomerular Filt Rate 19; Glucose Random 95 mg/dL (60-115); Potassium 3.9 mmol/L (3.3-5.1); Sodium 142 mmol/L (135-145)
[2021-09-09] MEDS: Levothyroxine Sodium 112 MCG TABLET PO (05:52)
[2021-09-09] MEDS: Omeprazole 20 MG CAPSULE.DR PO (05:52)
[2021-09-09] MEDS: Levothyroxine Sodium 25 MCG TABLET PO (05:52)
[2021-09-09 07:42] VITALS: BP 116/65; PULSE 75; RESP 18; TEMP 36.6; O2SAT 96
--- NOTE | 2021-09-09 08:15 | P.DS_ITS ---
DS: Providers Provider Date of Service: 09/09/21 Date of admission: 09/03/21 19:29 Primary care physician: Dakotah Jin MD Consults: 09/03/21 19:28 Consult to Cardiology Routine Consulting Provider: Garth Winters Reason for consultation: CHf 09/03/21 21:38 Consult to Nephrology Routine Consulting Provider: Linda William Reason for consultation: Aliza on ckd; cardio renal; hyperkalemia. DS: Diagnosis Discharge Diagnosis (1) CKD (chronic kidney disease) stage 4, GFR 15-29 ml/min: Status: Acute (2) Acute on chronic heart failure with reduced ejection fraction and diastolic dysfunction: Status: Acute DS: Summary Hospital Course Hospital Course: Chief Complaint: legswelling 70-year-old female with a past medical history of hypertension, hyperlipidemia, CAD, CHF with reduced ejection fraction, status post AICD/pacemaker, CKD, hypothyroidism, pulmonary hypertension, history of mechanical mitral and aortic valve-on Coumadin; history of retinal detachment; history of bladder cancer, amyloidosis, arthritis, anxiety, depression, obesity presented to the hospital with a chief complaint of leg swelling. Patient reported that over the past 1 day she noted to have increased leg swelling on her right lower extremity; denies any fevers and chills.? Complains of mild erythema. Patient daughter mentioned that about a week ago patient was on Bactrim for urinary tract infection; since that she had elevated creatinine over the past few days and has been following with a PCP who is adjusting her Lasix dose. Denies having any redness on the medial side of the thigh the day before.? Imaging started today.? And also complains of weight gain/leg swelling more on the right leg. Denies any fall or trauma. Patient denies any chest pain palpitations lightheadedness or dizziness. Reports that she has been complaint with her home medications including Coumadin. Denies any nausea vomiting or diarrhea. Denies any urinary symptoms. Review of all other systems is negative except mentioned above ER course: Per ER team patient noted to have right lower extremity ecchymosis on the thigh; head scan at stable; no signs of cellulitis; chest x-ray showed congestion consistent with CHF.? Given Lasix.? Admitted to the hospital for further management.? EKG was paced.? Patient denied any chest pain.? Patient has chronically high troponins. Hospital course: 71-year-old female with a past medical history of hypertension, hyperlipidemia, CAD, CHF with reduced ejection fraction, status post AICD/pacemaker, CKD, hypothyroidism, pulmonary hypertension, history of mechanical mitral and aortic valve-on Coumadin; history of retinal detachment; history of bladder cancer, amyloidosis, arthritis, anxiety, depression, obesity presented to the hospital with a chief complaint of leg swelling. Leg swelling:?Inititally there was concern of cellulitis of the leg with swelling but we think the swelling was related to heart failure, not cellulitis ?Acute/chronic HFrEF , EF of 10 %, she was treatd with IV Lasix and with negative 5 liters so far under the guidance of cardiology, lasix dose will be increased from 20 daily to 40 mg twice daily. To follow up with cardiology in 2 weeks CKD 4, with mild ALIZA, Creatine started at 3.23 and now 2.45 History of mechanical mitral wall:?continue usual dose of coumadin, INR 3.1 tod ay History of hypothyroidism:? Continue home levothyroxine History of hypertension/hyperlipidemia:? Continue home Coreg/Imdur/Lasix Hypokalemia due to Lasix--potassium supplement given, continue supplement at home. ?hypothyroidism - continue LT4 ?mood disorder - continue fluoxetine Time Spent with Patient Time attestation: Total time spent providing and/or coordinating discharge services: Discharge coordination time: Greater than 30 minutes Quality: Stroke Does the patient have a stroke diagnosis?: No Physical Exam Vital Signs: Vital Signs: Last Vital Signs Temp 97.8 F 09/09/21 07:42 Pulse 75 09/09/21 07:42 Resp 18 09/09/21 07:42 BP 116/65 09/09/21 07:42 Pulse Ox 96 09/09/21 07:42 Body Mass Index 24.8 DS: Data Data Completed and Pending Labs on day of discharge: Laboratory Results - last 24 hr 09/09/21 09/09/21 04:50 04:50 PT 36.6 H INR 3.1 H Sodium 142 Potassium 3.9 Chloride 105 Carbon Dioxide 27 Anion Gap 14 BUN 79 H Creatinine 2.45 H Estim Creat Clear Calc 22.3 Estimated GFR 19 Random Glucose 95 Calcium 8.0 L Discharge Plan Discharge Anticipated Discharge Date/Time: 09/09/21 08:23 Patient Disposition: Home, Self-Care Discharge Diagnosis: Exacerbation of heart failure Referrals: Davin,Dakotah Ahumada MD [Primary Care Provider] - 1 Week Discharge Medications: New furosemide 40 mg Tablet 40 mg PO BID@0900,1800 Qty: 60 RF: 0 Continued aspirin 81 mg tablet,delayed release (DR/EC) 81 mg PO DAILY Qty: 90 RF: 3 isosorbide dinitrate 5 mg tablet 5 mg PO BID Qty: 180 RF: 3 omeprazole 20 mg capsule,delayed release(DR/EC) 20 mg PO DAILY Qty: 90 RF: 2 rosuvastatin 10 mg tablet 10 mg PO DAILY Qty: 90 RF: 2 (DME) prosthetics Kit See Rx Instructions .ROUTE .MEDSUPPLY Qty: 1 RF: 0 fluoxetine 20 mg capsule 20 mg PO DAILY 30 Days Qty: 30 RF: 2 trazodone 50 mg tablet 50 mg PO DAILY PRN (Reason: for insomnia) Qty: 90 RF: 1 carvedilol [Coreg] 25 mg tablet 25 mg PO BIDWM 90 Days Qty: 180 RF: 3 levothyroxine 137 mcg tablet 137 mcg PO QAM Qty: 90 RF: 3 (DME) JUXTA LITe compression See Rx Instructions .Route .MEDSUPPLY Qty: 2 RF: 0 docusate sodium 100 mg capsule 200 mg PO BEDTIME RF: 0 (DME) walker Misc See Rx Instructions .Route Qty: 1 RF: 0 potassium chloride [Klor-Con M20] 20 mEq tablet,ER particles/crystals 20 meq PO Q48H RF: 0 warfarin 2.5 mg tablet 2.5 mg PO MOWEFR@1800 RF: 0 warfarin 2.5 mg tablet 1.25 mg PO SUTUTHSA@1800 RF: 0 calcium 250 mg Tablet 750 mg PO DAILY RF: 0 artifi.tears(hypromellose)(PF) 0.3 % drops 1 drp ophthalmic (eye) TID RF: 0 PreserVision AREDS-2 [id number]-mg capsule 1 tab PO BID RF: 0 acetaminophen [Tylenol] 325 mg capsule 325 mg PO QID PRN (Reason: Pain) RF: 0 ferrous sulfate 324 mg (65 mg iron) tablet,delayed release (DR/EC) 324 mg PO BID RF: 0 ascorbic acid (vitamin C) 500 mg capsule, extended release 500 mg PO BID Qty: 60 RF: 5 Discontinued furosemide [Lasix] 20 mg tablet 20 mg PO QAM 90 Days Qty: 90 RF: 2 Discharge Orders: Discharge Order (Routine); Ordered 09/09/21 Ordered By: Rishi Fitzgerald Diet: advance to usual diet and low salt diet Activity on Discharge: As tolerated Stand Alone Forms: Patient Portal Discharge page Care Plan Goals: Control of heart failure Health Concerns: Heart failure Plan of Treatment: Take all your medications, including Lasix as recommended Assessment: As above
--- NOTE | 2021-09-09 08:41 | MHC.CM.PN ---
Addendum entered by Melani Ayers 09/09/21 11:01: PTS DAUGHTER, ARLENE HOYOS ([phone]) WAS CONTACTED VIA T/C. SHE WAS INFORMED [facility] WOULD BE PROVIDING PTS NEW HOME PT SERVICES WELL CONTINUING HER PREVIOUS SERVICES. SHE REPORTS SHE SHOULD BE AVAILABLE TO TRANSPORT PT HOME AROUND 1200 - 1230 HOURS. Addendum entered by Melani Ayers 09/09/21 09:43: CM RECEIVED A RETURN CALL FROM JAMAL AT [facility]. SHE REPORTS THEIR NURSE WILL CONTINUE TO DRAW PTS INR LABS AND [facility] WILL ALSO PROVIDE NEW PT SERVICES. PER JAMAL, IF THE PT NEEDS ANY ADDITIONAL LABS, THEY WILL NEED A SIGNED ORDER SENT TO [phone]. SHE REPORTS THEY DO NOT NEED ORDERS FOR PT OR ANY CONTINUED SERVICES. PER , THERE WILL BE NO NEW LABS ORDERED. PT WILL DC HOME TODAY WITH RESUMPTION OF [facility] NURSE FOR INR AND PT SERVICES DAUGHTER TO TRANSPORT Original Note: PT CLEARED TO DC HOME TODAY. PT WILL NEED [facility] FOR CARE HOME AND PT CALL PLACED TO [facility] LIAISON, JAMAL ([phone]) WHO WAS UNSURE IF THEY WOULD BE PROVIDING SERVICES OR NEED A REFERRAL MADE. JAMAL REPORTS SHE WILL CALL CM BACK ONCE SHE CONFIRMS
[2021-09-09 08:55] VITALS: BP 106/55; PULSE 78
[2021-09-09] MEDS: carvediloL 25 MG TABLET PO (08:55)
[2021-09-09] MEDS: FLUoxetine HCl 20 MG CAPSULE PO (08:55)
[2021-09-09] MEDS: Furosemide 40 MG TABLET PO (08:55)
[2021-09-09] MEDS: Aspirin Enteric Coated 81 MG TABLET.DR PO (08:55)
[2021-09-09 08:56] VITALS: BP 106/55; PULSE 78
[2021-09-09] MEDS: Isosorbide Dinitrate 5 MG TABLET PO (08:56)
[2021-09-09] MEDS: Atorvastatin Calcium 40 MG TABLET PO (08:57)
[2021-09-09] MEDS: Ferrous Sulfate 324 MG TABLET.DR PO (08:57)
[2021-09-09] MEDS: Potassium Chloride ER 20 MEQ TAB.ER.PRT PO (08:57)
[2021-09-09] MEDS: 0.9 % Sodium Chloride Flush 3 ML SYRINGE IVFLUSH (08:59)
[2021-09-09 09:22] VITALS: BP 106/55; PULSE 78
[2021-09-09 11:44] VITALS: BP 111/64; PULSE 70; RESP 18; TEMP 36.6; O2SAT 97
--- NOTE | 2021-09-09 11:53 | PM.PNNEP ---
Subjective Subjective Date of Service: 09/09/21 Principal diagnosis: CHF Interval history: Seen AM. Feels better. Wants to go home today Physical Exam Vital Signs: Vital Signs: Last Vital Signs Temp 97.9 F 09/09/21 11:44 Pulse 70 09/09/21 11:44 Resp 18 09/09/21 11:44 BP 111/64 09/09/21 11:44 Pulse Ox 97 09/09/21 11:44 Body Mass Index 24.8 Const: General: comfortable Orientation/consciousness: patient oriented x3 Eyes: EOM: EOMs intact bilaterally Neck: Neck: Yes supple Resp: Auscultation: diminished lung sounds Cardio: Rate: regular rate GI: Palpation (GI): Soft to palpation Neuro: General: patient oriented x3 and moves all extremities Objective Data Labs CBC & Chem 7: 09/04/21 06:11 09/09/21 04:50 Labs: Laboratory Results - last 24 hr 09/09/21 09/09/21 04:50 04:50 PT 36.6 H INR 3.1 H Sodium 142 Potassium 3.9 Chloride 105 Carbon Dioxide 27 Anion Gap 14 BUN 79 H Creatinine 2.45 H Estim Creat Clear Calc 22.3 Estimated GFR 19 Random Glucose 95 Calcium 8.0 L Microbiology Microbiology Results: Microbiology 09/03/21 19:24 Urine clean catch - Urine xiong top Urine Culture - Final Procedures Date of Service Date of Service: 09/09/21 Assessment & Plan Assessment and plan (1) CKD (chronic kidney disease) stage 4, GFR 15-29 ml/min: Status: Acute Assessment and Plan: 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
== END 2021-09-09 14:54 | disposition home or self-care (01) | DRG 291 ==
LOC: HO.ED 18:18 → HO.EDOVER 22:01 → HO.S3 23:49
PROVIDERS: Internal Medicine Nephrology; Nurse Practitioner Family; Admitting Provider Hospitalist; Emergency Provider Emergency Medicine; PCP Internal Medicine; Visit Provider Internal Medicine
DX: I13.0 Hypertensive heart and chronic kidney disease with heart failure and stage 1 through stage 4 chronic kidney disease, or unspecified chronic kidney disease (principal); I50.23 Acute on chronic systolic (congestive) heart failure; N18.4 Chronic kidney disease, stage 4 (severe); I47.1 Supraventricular tachycardia; E85.9 Amyloidosis, unspecified; R04.0 Epistaxis; I25.5 Ischemic cardiomyopathy; E03.9 Hypothyroidism, unspecified; I25.10 Atherosclerotic heart disease of native coronary artery without angina pectoris; E78.5 Hyperlipidemia, unspecified; E83.9 Disorder of mineral metabolism, unspecified; Z95.810 Presence of automatic (implantable) cardiac defibrillator; Z23 Encounter for immunization; Z95.2 Presence of prosthetic heart valve; Z79.01 Long term (current) use of anticoagulants; Z79.890 Hormone replacement therapy; Z79.899 Other long term (current) drug therapy
CPT/HCPCS: 36415; 71046; 73700; 80048; 80053; 81001; 83735; 83880; 83970; 84156; 84484; 85025; 85610; 87086; 87635; 89190; 93005; 93306; 93971; 96374; 97110; 97162; 99285; J1940; Q9957

== ENCOUNTER → 2021-09-09 13:57 | Outpatient (BNVA) | payer MEDICARE, SELFPAY | PROVIDERS: PCP Internal Medicine; Visit Provider Internal Medicine | DX: Z95.2 Presence of prosthetic heart valve (principal) | CPT/HCPCS: Q3014 ==

== ENCOUNTER → 2021-09-13 15:28 | Outpatient (BNVA) | payer MEDICARE, SELFPAY | PROVIDERS: PCP Internal Medicine; Visit Provider Internal Medicine | DX: Z95.2 Presence of prosthetic heart valve (principal) | CPT/HCPCS: Q3014 ==

== ENCOUNTER → 2021-09-16 13:09 | Outpatient (REF) | payer MEDICARE, SELFPAY ==
[2021-09-16 13:21] LABS: MANUAL DIFF FLAG NO
[2021-09-16 14:42] LABS: Basophils Percent Auto 0.5 % (0-2); Eosinophils Absolute Auto 0.1 X10*3/uL (0.0-0.4); Eosinophils Percent Auto 1.3 % (0-4); Hematocrit 31.2 % (37.0-47.0); Hemoglobin 9.1 g/dl (12.0-16.0); Imm Gran Abs Auto 0.01 X10*3/uL (0.00-0.03); Imm Gran Pct Auto 0.3 % (0.0-0.4); Lymphocytes Absolute Auto 0.4 X10*3/uL (1.2-4.9); Lymphocytes Percent Auto 9.1 % (20-40); Mean Corpuscular HGB Conc 29.2 g/dl (31.0-35.0); Mean Corpuscular Hemoglobin 27.4 pg (27.0-33.0); Mean Platelet Volume 12.7 fL (9.4-12.3); Monocytes Absolute Auto 0.4 X10*3/uL (0.1-1.2); Monocytes Percent Auto 9.4 % (2-11); Neutrophils Percent Auto 79.4 % (45-73); Platelet Count 126 X10*3/uL (160-400); Red Blood Count 3.32 X10*6/uL (4.20-5.50); Red Cell Distribution Width 18.6 % (11.0-16.0); White Blood Count 3.8 X10*3/uL (4.8-10.8)
[2021-09-16 17:08] LABS: Anion Gap 14 (12-20); Blood Urea Nitrogen 83 mg/dL (9-16); Calcium 8.3 mg/dL (8.4-10.2); Carbon Dioxide 28 mmol/L (22-29); Chloride 103 mmol/L (96-108); Estimated Glomerular Filt Rate 19; Potassium 4.2 mmol/L (3.3-5.1); Sodium 141 mmol/L (135-145)
== END ==
LOC: HO.CARD 13:09
PROVIDERS: Absent Provider Internal Medicine Hypertension Specialist; PCP Internal Medicine; Visit Provider Internal Medicine Cardiovascular Disease
DX: N18.9 Chronic kidney disease, unspecified (principal); Z95.2 Presence of prosthetic heart valve; Z51.81 Encounter for therapeutic drug level monitoring; Z79.01 Long term (current) use of anticoagulants
CPT/HCPCS: 36415; 80051; 82310; 82565; 84520; 85025; Q3014

== ENCOUNTER 2021-09-20 13:50 | Outpatient (REF) | payer MEDICARE, SELFPAY ==
--- NOTE | ~2021-09-20 | US_ITS ---
EXAMINATION: US ABDOMEN LIMITED CLINICAL INFORMATION: Check for ascites. COMPARISON: Previous CT of the abdomen and pelvis May 2021 and abdominal ultrasound March 2021 TECHNIQUE: Limited 4 quadrant abdominal ultrasound. FINDINGS: There is a small amount of ascites. Largest pocket is in the left lower quadrant. There is a right pleural effusion. US/US abdomen limited IMPRESSION: Small amount of ascites.
== END 2021-09-20 13:51 | disposition home or self-care (01) ==
LOC: HO.HMGCX 13:50
PROVIDERS: PCP Internal Medicine; Visit Provider Nurse Practitioner Family
DX: R18.8 Other ascites (principal); Z95.2 Presence of prosthetic heart valve; Z51.81 Encounter for therapeutic drug level monitoring; Z79.01 Long term (current) use of anticoagulants
CPT/HCPCS: 76705; Q3014

== ENCOUNTER → 2021-09-26 15:26 | Outpatient (BNVA) | payer MEDICARE, SELFPAY | PROVIDERS: PCP Internal Medicine; Visit Provider Internal Medicine | DX: Z95.2 Presence of prosthetic heart valve (principal); Z51.81 Encounter for therapeutic drug level monitoring; Z79.01 Long term (current) use of anticoagulants | CPT/HCPCS: Q3014 ==

== ENCOUNTER → 2021-10-02 10:25 | Outpatient (BNVA) | payer MEDICARE, SELFPAY | PROVIDERS: PCP Internal Medicine; Visit Provider Internal Medicine | DX: Z95.2 Presence of prosthetic heart valve (principal); Z51.81 Encounter for therapeutic drug level monitoring; Z79.01 Long term (current) use of anticoagulants | CPT/HCPCS: Q3014 ==

== ENCOUNTER 2021-10-09 10:20 | Inpatient (IN) | payer MEDICARE, SELFPAY ==
[2021-10-09] VITALS (7 sets, daily range): BP systolic 116–124; BP diastolic 59–71; PULSE 63–79; RESP 15–21; TEMP 36.4–36.9; O2SAT 94–100; BMI 23.9; BMI 23.7
--- NOTE | ~2021-10-09 | US_ITS ---
EXAMINATION: US ABDOMEN LIMITED CLINICAL INFORMATION: This is a 71-year-old female with an ascites check.. COMPARISON: None TECHNIQUE: Real-time imaging of the right upper quadrant abdominal viscera. FINDINGS: Ascites is seen in the right lower quadrant. Ascites is seen in the lower midline. There is a right pleural effusion present. US/US abdomen limited IMPRESSION: There is moderate ascites present.
--- NOTE | ~2021-10-09 | XR_ITS ---
EXAMINATION: XR CHEST CLINICAL INFORMATION: Worsening heart failure. COMPARISON: Chest 09/03/2021 TECHNIQUE: Frontal view of the chest was obtained. FINDINGS: There is cardiomegaly with solitary pacer electrode in right ventricle. Pulmonary vascularity is prominent with venous congestion suspected. The lungs are hyperexpanded with likely right basilar effusion with haziness. There are median sternotomy sutures and mediastinal kristian from previous CABG. There is moderate spondylosis dorsal spine with mild dextroscoliosis mid dorsal spine. XR/XR chest 1V IMPRESSION: Cardiomegaly without pulmonary vascular congestion. The right pleural effusion and underlying atelectasis. No change in the right pacer electrode. No major change compared to 09/03/2021.
--- NOTE | 2021-10-09 10:26 | ED.ABDPAIN ---
HPI - Abdominal Pain General Chief Complaint: Dyspnea Stated Complaint: ABD PAIN,SOB Time Seen by Provider: 10/09/21 10:26 Source: patient Mode of arrival: EMS Limitations: no limitations History of Present Illness HPI narrative: patient has had swelling in her abdoment and legs for weeks. Patient was admitted in August for CHF. Daughter called the ambulance for the increase in swelling. MD elicited complaint: abdominal pain Onset (ago): week(s) Location: diffuse Severity: mild Radiation: none Exacerbating factors: nothing Relieving factors: nothing Related Data Home Medications Medication Instructions Recorded Confirmed acetaminophen 325 mg capsule 325 mg PO QID PRN 08/06/20 10/02/21 (Tylenol) vit C 250 mg-vit E 90 mg-zinc 40 1 tab PO BID 08/06/20 10/02/21 mg-copper 1 [id number]-[id number] capsule (PreserVision AREDS-2) potassium chloride 20 mEq 20 meq PO Q48H 06/19/21 10/02/21 tablet,extended release(part/cryst) (Klor-Con M) docusate sodium 100 mg capsule 200 mg PO BEDTIME 08/09/21 10/02/21 artifi.tears(hypromellose)(PF) 0.3 1 drp OPHTHALMIC (EYE) TID 09/03/21 10/02/21 % eye drops calcium 250 mg tablet 750 mg PO DAILY 09/03/21 10/02/21 warfarin 2.5 mg tablet 2.5 mg PO DAILY 09/26/21 10/09/21 Previous Rx's Medication Instructions Recorded aspirin 81 mg tablet,delayed 81 mg PO DAILY #90 tab 09/17/20 release ascorbic acid (vitamin C) 500 mg 500 mg PO BID #60 cap 01/03/21 capsule,extended release isosorbide dinitrate 5 mg tablet 5 mg PO BID #180 tab 02/28/21 omeprazole 20 mg capsule,delayed 20 mg PO DAILY #90 cap 04/26/21 release rosuvastatin 10 mg tablet 10 mg PO DAILY #90 tab 05/16/21 prosthetics #1 ea 05/23/21 trazodone 50 mg tablet 50 mg PO DAILY PRN #90 tab 06/26/21 carvedilol 25 mg tablet (Coreg) 25 mg PO BIDWM 90 Days #180 tab 06/27/21 levothyroxine 137 mcg tablet 137 mcg PO QAM #90 tab 07/26/21 JUXTA LITe compression #2 ea 07/31/21 walker #1 ea 08/22/21 furosemide 40 mg tablet 40 mg PO BID@0900,1800 #60 tab 09/09/21 fluoxetine 20 mg capsule 20 mg PO DAILY 30 Days #30 cap 09/18/21 hydrocortisone-pramoxine 2.5 %-1 % 1 appl IA BID-TID PRN #30 g 09/19/21 rectal cream witch jose 50 % topical pads 1 pad TOPICAL BID-TID PRN #100 ea 09/19/21 (Hemorrhoidal (witch jose)) ferrous sulfate 324 mg (65 mg 324 mg PO BID tab 10/08/21 iron) tablet,delayed release occular prosthetic. #1 ea 10/08/21 Allergies Allergy/AdvReac Type Severity Reaction Status Date / Time TAPE,PAPER Allergy Unknown RASH TO Uncoded 10/09/21 12:18 PAPER TAPE Review of Systems Constitutional: Reports no additional constitutional complaints Eyes: Reports no additional eye complaints Denies dizziness Cardiovascular: Reports no additional cardiovascular complaints Respiratory: Reports as per HPI Gastrointestinal: Reports no additional gastrointestinal complaints Genitourinary: Reports no additional female genitourinary complaints Musculoskeletal: Reports no additional musculoskeletal complaints Skin/Breast: Denies rash Reports system reviewed and no additional complaints, except as documented, Denies dizziness and Denies Sensory deficit (Neuro) Psychiatric: Denies anxiety Physical Exam Vital Signs: Vital Signs: Last Vital Signs Temp 97.6 F 10/09/21 10:40 Pulse 79 10/09/21 12:17 Resp 21 H 10/09/21 12:17 BP 124/71 10/09/21 12:17 Pulse Ox 100 10/09/21 12:17 BMI result Body Mass Index 23.9 Const: Other: female chronically ill appearing Nutritional Appearance: thin Orientation/consciousness: oriented to person and patient oriented x3 Limitations: no limitations HENMT: Head: Yes normal to inspection Ears: external ears normal General nose exam: Normal external nose present Mouth: Normal oral and palatal mucosa present and oropharynx normal Throat: Yes posterior oropharynx normal Eyes: General: appearance normal, both eyes and all related structures Neck: Other: supple Neck: Yes normal visual inspection Chest: Chest palpation & inspection: normal inspection of the chest Resp: Auscultation: clear to auscultation bilaterally Cardio: Jugular venous distension: no JVD Rate: regular rate Rhythm: regular rhythm Heart sounds: S1 normal heart sound present and S2 normal heart sound present GI: Other: soft large ascites, large hepatomegally Auscultation: normal bowel sounds : General: Yes no CVA tenderness Back/Spine/Pelvis: Back: no CVA tenderness Skin: General skin exam: no rashes or lesions noted Neuro: General: oriented to person and patient oriented x3 Cranial nerves: Yes CN's II-XII intact bilaterally Motor exam (neuro): 5/5 motor strength present throughout Sensory Exam: No Sensory deficit (Neuro) Extrem: Other: 3+ edema bilaterally Psych: Appearance: grossly normal Course Reevaluation(s) Reevaluation #1: discussed with Dr. Estrella who wants the patient admitted for decompensated right heart failure with renal insufficiency Time: 12:58 MDM - Abdominal Pain Lab Data Result diagrams: 10/09/21 11:16 10/09/21 11:16 Labs: Lab Results 10/09/21 10/09/21 10/09/21 Range/Units 11:16 11:16 11:16 WBC 4.8 (4.8-10.8) X10*3/uL RBC 3.44 L (4.20-5.50) X10*6/uL Hgb 9.6 L (12.0-16.0) g/dl Hct 32.7 L (37.0-47.0) % MCV 95.1 (80.0-98.0) fL MCH 27.9 (27.0-33.0) pg MCHC 29.4 L (31.0-35.0) g/dl RDW 19.7 H (11.0-16.0) % Plt Count 126 L (160-400) X10*3/uL MPV 11.6 (9.4-12.3) fL Immature Gran % (Auto) 0.4 (0.0-0.4) % Neut % (Auto) 83.6 H (45-73) % Lymph % (Auto) 5.6 L (20-40) % [place] % (Auto) 9.4 (2-11) % Eos % (Auto) 0.8 (0-4) % Baso % (Auto) 0.2 (0-2) % Lymph # (Auto) 0.3 L (1.2-4.9) X10*3/uL [place] # (Auto) 0.5 (0.1-1.2) X10*3/uL Eos # (Auto) 0.0 (0.0-0.4) X10*3/uL Baso # (Auto) 0.0 (0.0-0.2) X10*3/uL Abs Immat Gran (auto) 0.02 (0.00-0.03) X10*3/uL Absolute Neuts (auto) 4.0 (2.0-8.3) x10*3/uL Absolute Nucleated RBC 0.000 (0.0-0.012) X10*3/uL Nucleated RBC % (auto) 0.0 (0.0-0.2) /100WBC PT (9.9-13.0) SEC INR (0.9-1.1) Sodium 140 (135-145) mmol/L Potassium 3.9 (3.3-5.1) mmol/L Chloride 103 (96-108) mmol/L Carbon Dioxide 28 (22-29) mmol/L Anion Gap 13 (12-20) BUN 77 H (9-16) mg/dL Creatinine 3.06 H (0.5-1.4) mg/dL Estim Creat Clear Calc 17.9 Estimated GFR 15 Random Glucose 92 (60-115) mg/dL Calcium 8.8 D (8.4-10.2) mg/dL Total Bilirubin 0.8 (0.0-1.0) mg/dL AST 20 (5-31) U/L ALT 23 (0-31) U/L Alkaline Phosphatase 153 H (39-117) U/L Troponin I High Sens 866.7 H* (<3.5-17.0) ng/L B-Natriuretic Peptide 1374 H (<100) pg/mL Total Protein 7.1 (6.5-8.0) g/dL Albumin 3.3 L (3.5-5.0) g/dL 10/09/21 Range/Units 11:16 WBC (4.8-10.8) X10*3/uL RBC (4.20-5.50) X10*6/uL Hgb (12.0-16.0) g/dl Hct (37.0-47.0) % MCV (80.0-98.0) fL MCH (27.0-33.0) pg MCHC (31.0-35.0) g/dl RDW (11.0-16.0) % Plt Count (160-400) X10*3/uL MPV (9.4-12.3) fL Immature Gran % (Auto) (0.0-0.4) % Neut % (Auto) (45-73) % Lymph % (Auto) (20-40) % [place] % (Auto) (2-11) % Eos % (Auto) (0-4) % Baso % (Auto) (0-2) % Lymph # (Auto) (1.2-4.9) X10*3/uL [place] # (Auto) (0.1-1.2) X10*3/uL Eos # (Auto) (0.0-0.4) X10*3/uL Baso # (Auto) (0.0-0.2) X10*3/uL Abs Immat Gran (auto) (0.00-0.03) X10*3/uL Absolute Neuts (auto) (2.0-8.3) x10*3/uL Absolute Nucleated RBC (0.0-0.012) X10*3/uL Nucleated RBC % (auto) (0.0-0.2) /100WBC PT 34.3 H (9.9-13.0) SEC INR 2.9 H (0.9-1.1) Sodium (135-145) mmol/L Potassium (3.3-5.1) mmol/L Chloride (96-108) mmol/L Carbon Dioxide (22-29) mmol/L Anion Gap (12-20) BUN (9-16) mg/dL Creatinine (0.5-1.4) mg/dL Estim Creat Clear Calc Estimated GFR Random Glucose (60-115) mg/dL Calcium (8.4-10.2) mg/dL Total Bilirubin (0.0-1.0) mg/dL AST (5-31) U/L ALT (0-31) U/L Alkaline Phosphatase (39-117) U/L Troponin I High Sens (<3.5-17.0) ng/L B-Natriuretic Peptide (<100) pg/mL Total Protein (6.5-8.0) g/dL Albumin (3.5-5.0) g/dL Imaging Data Chest x-ray: Radiologist's impression: IMPRESSION: Cardiomegaly without pulmonary vascular congestion. ? The right pleural effusion and underlying atelectasis. No change in the right pacer electrode. ? No major change compared to 09/03/2021. ? ECG Data Attestation: I personally reviewed and interpreted this ECG as follows: Interpretation: junctional rhythm rate of 70, PVCs, no st or twave changes Critical Care Time Critical Care Time Attestation: I spent 40 minutes of critical care, with interventions, assessments, speaking to patient, consultants, and family. Discharge Plan Discharge Clinical Impression: Acute on chronic right-sided congestive heart failure Acute renal failure Qualifiers: Acute renal failure type: unspecified Qualified Code(s): N17.9 - Acute kidney failure, unspecified Patient Disposition: Admitted As Inpatient [facility] Past Medical History Medical History Acute on chronic heart failure with reduced ejection fraction and diastolic dysfunction Amyloidosis Amyloidosis Anemia Anemia Anxiety and depression Arthritis Bladder hypertonicity Chronic atrial fibrillation Chronic HFrEF (heart failure with reduced ejection fraction) Chronic kidney disease (CKD) stage G4/A1, severely decreased glomerular filtration rate (GFR) between 15-29 mL/min/1.73 square meter and albuminuria creatinine ratio less than 30 mg/g CKD (chronic kidney disease) stage 4, GFR 15-29 ml/min Detached retina Gout Heart disease History of breast cancer History of breast cancer HTN (hypertension) Hypercholesterolemia Hypothyroid ICD (implantable cardioverter-defibrillator) in place Ischemic cardiomyopathy Kidney disease Nephrolithiasis Osteoarthritis Overweight (BMI 25.0-29.9) Pulmonary hypertension Thumb tendonitis Tricuspid regurgitation Urinary incontinence Surgical History H/O abdominal hysterectomy H/O mitral valve replacement H/O mitral valve replacement with mechanical valve History of bunionectomy History of cataract surgery History of colonoscopy History of left inguinal hernia repair History of sleeve gastrectomy Family History Family History Mother Diabetes Father Past heart attack Diabetes Sister Parkinsons disease Social History Social History Household Members: Family Household Members Other:: daughter Housing: House Do you presently have visiting nurse or other home services: No Alcohol intake: never Patient Tobacco Use Status: Never used Tobacco Tobacco use type: Cigarette e-Cigarette/Vaping Use: Never Used Second Hand Smoke Exposure: No service: No Current occupational status: disabled Current occupation: left handed Cognitive needs: No Hearing needs: No Vision needs: No
--- NOTE | 2021-10-09 10:34 | ECG_ITS ---
Test Reason : SOB Blood Pressure : / mmHG Vent. Rate : 074 BPM Atrial Rate : 000 BPM P-R Int : 000 ms QRS Dur : 096 ms QT Int : 478 ms P-R-T Axes : 000 -13 134 degrees QTc Int : 530 ms Atrial fibrillation Moderate voltage criteria for LVH, may be normal variant ( R in aVL , [place] product ) Septal infarct , age undetermined Prolonged QT Abnormal ECG When compared with ECG of 03-SEP-2021 15:09, V pacing not seen Referred By: Aj Spence Electronically Signed By:SONNY RÍOS
[2021-10-09 11:21] LABS: MANUAL DIFF FLAG NO
[2021-10-09 11:22] LABS: Basophils Percent Auto 0.2 % (0-2); Eosinophils Percent Auto 0.8 % (0-4); Hematocrit 32.7 % (37.0-47.0); Hemoglobin 9.6 g/dl (12.0-16.0); Imm Gran Abs Auto 0.02 X10*3/uL (0.00-0.03); Imm Gran Pct Auto 0.4 % (0.0-0.4); Lymphocytes Absolute Auto 0.3 X10*3/uL (1.2-4.9); Lymphocytes Percent Auto 5.6 % (20-40); Mean Corpuscular HGB Conc 29.4 g/dl (31.0-35.0); Mean Corpuscular Hemoglobin 27.9 pg (27.0-33.0); Mean Corpuscular Volume 95.1 fL (80.0-98.0); Mean Platelet Volume 11.6 fL (9.4-12.3); Monocytes Absolute Auto 0.5 X10*3/uL (0.1-1.2); Monocytes Percent Auto 9.4 % (2-11); Neutrophils Percent Auto 83.6 % (45-73); Platelet Count 126 X10*3/uL (160-400); Red Blood Count 3.44 X10*6/uL (4.20-5.50); Red Cell Distribution Width 19.7 % (11.0-16.0); White Blood Count 4.8 X10*3/uL (4.8-10.8)
[2021-10-09 11:30] LABS: INTERNATIONAL NORM RATIO 2.9 (0.9-1.1); Prothrombin Time 34.3 SEC (9.9-13.0)
[2021-10-09 11:36] LABS: Alanine Aminotransferase 23 U/L (0-31); Albumin Level 3.3 g/dL (3.5-5.0); Alkaline Phosphatase 153 U/L (39-117); Anion Gap 13 (12-20); Aspartate Amino Transferase 20 U/L (5-31); Bilirubin Total 0.8 mg/dL (0.0-1.0); Blood Urea Nitrogen 77 mg/dL (9-16); Calcium 8.8 mg/dL (8.4-10.2); Carbon Dioxide 28 mmol/L (22-29); Chloride 103 mmol/L (96-108); Creatinine Clr Calc Pharmacy 17.9; Estimated Glomerular Filt Rate 15; Glucose Random 92 mg/dL (60-115); Potassium 3.9 mmol/L (3.3-5.1); Sodium 140 mmol/L (135-145); Total Protein 7.1 g/dL (6.5-8.0)
[2021-10-09 11:46] LABS: B Type Natriuretic Peptide 1374 pg/mL (<100); Troponin-I High Sensitivity 866.7 ng/L (<3.5-17.0)
[2021-10-09] MEDS: Bumetanide 1 MG/4 ML VIAL 0.5 MG IVPUSH (12:56)
[2021-10-09 14:14] LABS: COVID-19 Test Negative (Negative)
--- NOTE | 2021-10-09 15:45 | PM.IMHP ---
History of Present Illness Date of Service: 10/09/21 Attending physician on admission: Reny Lao Chief Complaint: Shortness of breath 71-year-old female patient with past medical history significant for hypertension, hyperlipidemia, coronary artery disease, CHF with reduced EF status post AICD pacemaker, chronic kidney disease, hypothyroidism pulmonary hypertension is status post mechanical mitral and aortic valve on Coumadin, history of amyloidosis anxiety depression presented to [facility] due to symptoms of bilateral leg swelling, abdominal distention of several weeks duration and shortness of breath, patient denies associated chest pain, she chronically sleeps on her side, patient admits compliance with low-salt diet and home medication, she denies fever chills no recent bout of nausea vomiting diarrhea, patient was recently worked up for abdominal distension an abdominal ultrasound was obtained on 09/20 that showed mild ascites but since daughter noticed worsening abdominal distension and leg edema, she called ambulance and sent patient to emergency room, in the ER patient was noted to have elevated BNP 1374, troponin 866,EKG showed junctional rhythm patient treated in the emergency room with IV Bumex and now being admitted for continued monitoring and treatment of worsening CHF likely worsening right-sided heart failure. Review of Systems Review of Systems: General no headache, no dizziness no fever chills. CVS no chest pain, no palpitation. Respiratory no cough, shortness of breath. Gastrointestinal no nausea, no vomiting, no abdominal pain Musculoskeletal no pain no urinary frequency or urgency Skin no rash Yes all other systems are reviewed and are negative [facility] Medical History Acute on chronic heart failure with reduced ejection fraction and diastolic dysfunction Amyloidosis Amyloidosis Anemia Anemia Anxiety and depression Arthritis Bladder hypertonicity Chronic atrial fibrillation Chronic HFrEF (heart failure with reduced ejection fraction) Chronic kidney disease (CKD) stage G4/A1, severely decreased glomerular filtration rate (GFR) between 15-29 mL/min/1.73 square meter and albuminuria creatinine ratio less than 30 mg/g CKD (chronic kidney disease) stage 4, GFR 15-29 ml/min Detached retina Gout Heart disease History of breast cancer History of breast cancer HTN (hypertension) Hypercholesterolemia Hypothyroid ICD (implantable cardioverter-defibrillator) in place Ischemic cardiomyopathy Kidney disease Nephrolithiasis Osteoarthritis Overweight (BMI 25.0-29.9) Pulmonary hypertension Thumb tendonitis Tricuspid regurgitation Urinary incontinence Family History Mother Diabetes Father Past heart attack Diabetes Sister Parkinsons disease Pertinent family history: No change in family history other than above Surgical History H/O abdominal hysterectomy H/O mitral valve replacement H/O mitral valve replacement with mechanical valve History of bunionectomy History of cataract surgery History of colonoscopy History of left inguinal hernia repair History of sleeve gastrectomy Social History Household Members: Family Household Members Other:: daughter Housing: House Do you presently have visiting nurse or other home services: No Alcohol intake: never Patient Tobacco Use Status: Never used Tobacco Tobacco use type: Cigarette e-Cigarette/Vaping Use: Never Used Second Hand Smoke Exposure: No Use of substances other than those prescribed or required for medical reasons: No Advance Directives: Yes Advance Directives Information Provided: No Advance Directives on File: No service: No Current occupational status: disabled Current occupation: left handed Cognitive needs: No Hearing needs: No Vision needs: No Meds Allergies Allergy/AdvReac Type Severity Reaction Status Date / Time TAPE,PAPER Allergy Unknown RASH TO Uncoded 10/09/21 12:18 PAPER TAPE Active Medications: Current Medications Acetaminophen (Acetaminophen 325 Mg Tablet) 650 mg PO Q6H PRN PRN Reason: Pain, Mild (Pain Scale 1-3) Carvedilol (Carvedilol 25 Mg Tablet) 25 mg PO BIDWM NADINE; Protocol Docusate Sodium (Docusate Sodium 100 Mg Capsule) 200 mg PO BEDTIME NADINE Ferrous Sulfate (Ferrous Sulfate 324 Mg Tablet.) 324 mg PO BID NADINE Fluoxetine HCl (Fluoxetine Hcl 20 Mg Capsule) 20 mg PO DAILY NADINE Isosorbide Dinitrate (Isosorbide Dinitrate 5 Mg Tablet) 5 mg PO BID NADINE; Protocol Non-Formulary Medication (Artifi.Tears(Hypromellose)(Pf)) 1 drop EYE-BOTH TID [facility] Non-Formulary Medication (Levothyroxine) 137 mcg PO QAM [facility] Non-Formulary Medication (Rosuvastatin) 10 mg PO DAILY [facility] Omeprazole (Omeprazole 20 Mg Capsule.) 20 mg PO DAILY [facility] Ondansetron HCl (Ondansetron Hcl 4 Mg/2 Ml Vial) 4 mg IVPUSH Q8H PRN PRN Reason: Nausea and Vomiting Pharmacy Consult (Consult Rx Perform Med Rec) 1 each MISCELLANE ONCE PRN PRN Reason: Consult order Potassium Chloride (Potassium Chloride Er 20 Meq Tab.Er.Prt) 20 meq PO Q48H [facility] Sodium Chloride (0.9 % Sodium Chloride Flush 3 Ml Syringe) 3 ml IVFLUSH QSHIFT [facility] Trazodone HCl (Trazodone Hcl 50 Mg Tablet) 50 mg PO DAILY PRN PRN Reason: for insomnia Warfarin Sodium (Warfarin Sodium 2.5 Mg Tablet) 2.5 mg PO DAILY [facility] Home Medications Medication Instructions Recorded Confirmed Last Taken Type acetaminophen 325 mg capsule 325 mg PO QID PRN 08/06/20 10/09/21 10/09/21 History (Tylenol) vit C 250 mg-vit E 90 mg-zinc 40 1 tab PO BID 08/06/20 10/09/21 10/09/21 History mg-copper 1 [id number] capsule (PreserVision AREDS-2) potassium chloride 20 mEq 20 meq PO Q48H 06/19/21 10/09/21 10/09/21 History tablet,extended release(part/cryst) (Klor-Con M) docusate sodium 100 mg capsule 200 mg PO BEDTIME 08/09/21 10/09/21 10/09/21 History artifi.tears(hypromellose)(PF) 0.3 1 drp OPHTHALMIC (EYE) TID 09/03/21 10/09/21 10/09/21 History % eye drops warfarin 2.5 mg tablet 2.5 mg PO DAILY 09/26/21 10/09/21 10/09/21 History calcium 750 mg PO DAILY 10/09/21 10/09/21 10/09/21 History Physical Exam Vital Signs and Narrative: Vital Signs: Last Vital Signs Temp 97.6 F 10/09/21 10:40 Pulse 78 10/09/21 15:15 Resp 15 10/09/21 15:15 BP 116/63 10/09/21 15:15 Pulse Ox 97 10/09/21 15:15 BMI result Body Mass Index 23.9 General awake alert x3, mild respiratory distress Prostatic left eye Neck + JVD. CVS regular rate rhythm, Respiratory lungs basilar crackles right greater than left , no use of accessory muscles, no wheeze, no rhonchi. Gastrointestinal abdomen soft, distended, nontender, bowel sounds audible, no guarding , no rigidity. Extremities bilateral edema right greater than left Neuro nonfocal Skin no rash Psych appropriate affect Results Labs CBC and Chem 7: 10/09/21 11:16 10/09/21 11:16 Labs: Laboratory Results - last 24 hr 10/09/21 10/09/21 10/09/21 11:16 11:16 11:16 MCV 95.1 MCH 27.9 MCHC 29.4 L RDW 19.7 H Plt Count 126 L MPV 11.6 Immature Gran % (Auto) 0.4 Neut % (Auto) 83.6 H Lymph % (Auto) 5.6 L [place] % (Auto) 9.4 Eos % (Auto) 0.8 Baso % (Auto) 0.2 Lymph # (Auto) 0.3 L [place] # (Auto) 0.5 Eos # (Auto) 0.0 Baso # (Auto) 0.0 Abs Immat Gran (auto) 0.02 Absolute Neuts (auto) 4.0 Absolute Nucleated RBC 0.000 Nucleated RBC % (auto) 0.0 PT INR Anion Gap 13 Estim Creat Clear Calc 17.9 Estimated GFR 15 Random Glucose 92 Calcium 8.8 D Total Bilirubin 0.8 AST 20 ALT 23 Alkaline Phosphatase 153 H Troponin I High Sens 866.7 H* B-Natriuretic Peptide 1374 H Total Protein 7.1 Albumin 3.3 L COVID-19 (ANEUDY) COVID-19 Clin Com 10/09/21 10/09/21 11:16 13:42 MCV MCH MCHC RDW Plt Count MPV Immature Gran % (Auto) Neut % (Auto) Lymph % (Auto) [place] % (Auto) Eos % (Auto) Baso % (Auto) Lymph # (Auto) [place] # (Auto) Eos # (Auto) Baso # (Auto) Abs Immat Gran (auto) Absolute Neuts (auto) Absolute Nucleated RBC Nucleated RBC % (auto) PT 34.3 H INR 2.9 H Anion Gap Estim Creat Clear Calc Estimated GFR Random Glucose Calcium Total Bilirubin AST ALT Alkaline Phosphatase Troponin I High Sens B-Natriuretic Peptide Total Protein Albumin COVID-19 (ANEUDY) Negative COVID-19 Clin Com See Note Imaging Radiologist's Impressions: Impressions Chest X-Ray 10/09/21 11:05 IMPRESSION: Cardiomegaly without pulmonary vascular congestion. The right pleural effusion and underlying atelectasis. No change in the right pacer electrode. No major change compared to 09/03/2021. Assessment and Plan (1) Acute on chronic right-sided congestive heart failure: Status: Acute (2) Mechanical heart valve present: Status: Acute (3) Ascites: Status: Acute (4) Hypercholesterolemia: Status: Acute (5) Tricuspid regurgitation: Status: Acute (6) Anxiety and depression: Status: Acute (7) Hypothyroid: Qualifiers: Hypothyroidism type: acquired Qualified Code(s): E03.9 - Hypothyroidism, unspecified Status: Acute 71-year-old female with past medical history of hypertension, hyperlipidemia, CAD, CHF with reduced ejection fraction, status post AICD/pacemaker, CKD, hypothyroidism, pulmonary hypertension, history of mechanical mitral and aortic valve-on Coumadin; history of retinal detachment; history of bladder cancer, amyloidosis, arthritis, anxiety, depression, presented to the hospital with a chief complaint of abdominal and leg swelling times several weeks. ?Acute on chronic HFrEF with increased leg edema and abdominal distention Patient noted to have elevated JVD, leg edema with elevated BNP 1374, troponin of 866, chronically elevated likely due to chronic kidney,no chest discomfort EKG shows junctional rhythm with prolonged QTC of 530 Recent echo showed EF 15-20% with decreased right ventricular function, Mechanical mitral prosthetic valve and moderate to severe tricuspid regurgitation Recent outpatient abdominal ultrasound 09/20 showed ascites, likely due to right-sided heart failure Will treat with IV Lasix, I/O, low-salt diet Obtain cardiology consult, follow BMP and BNP, repeat troponin Will continue carvedilol, and isosorbide dinitrate Abdominal distension likely due to ascites with right-sided heart failure as shown on recent abdominal ultrasound 09/20, patient asymptomatic with no nausea, no vomiting, or abdominal pain, no fevers Will diurese and follow clinical course. Acute on chronic CKD 4 Slight bump in creatinine to 3.06 baseline creatinine around 2.5-2.6 will diurese and follow renal function History of mechanical mitral wall:?continue anticoagulation with coumadin, INR 2.9 in desired range between 2.5 and 3.5 History of hypothyroidism:? Continue home levothyroxine, will check TSH History of hypertension BP stable continue home medications and follow BP closely hyperlipidemia:? Continue statin mood disorder continue fluoxetine DVT prophylaxis on Coumadin Code status patient wishes to be full code Quality Stroke Does the patient have a stroke diagnosis?: No VTE Prior VTE?: No VTE Risk Level:: Medical - moderate - high VTE Device Contraindication: Treatment Not Indicated VTE Drug Contraindication: N/A - Med Ordered
[2021-10-09] MEDS: Potassium Chloride ER 20 MEQ TAB.ER.PRT PO (16:05)
[2021-10-09] MEDS: carvediloL 25 MG TABLET PO (16:05)
[2021-10-09 17:02] LABS: Troponin-I High Sensitivity 878.1 ng/L (<3.5-17.0)
[2021-10-09 17:20] LABS: Thyroid Stimulating Hormone 7.28 uIU/mL (0.32-4.0)
[2021-10-09] MEDS: Furosemide 20 MG/2 ML VIAL IVPUSH (17:33)
[2021-10-09] MEDS: 0.9 % Sodium Chloride Flush 3 ML SYRINGE IVFLUSH (20:02)
[2021-10-09] MEDS: Docusate Sodium 100 MG CAPSULE 200 MG PO (20:02)
[2021-10-09] MEDS: Isosorbide Dinitrate 5 MG TABLET PO (20:02)
[2021-10-09] MEDS: Ferrous Sulfate 324 MG TABLET.DR PO (20:02)
[2021-10-09] MEDS: Warfarin Sodium 2.5 MG TABLET PO (20:35)
[2021-10-10] VITALS (9 sets, daily range): BP systolic 100–121; BP diastolic 47–73; PULSE 61–101; RESP 15–18; TEMP 36.8–37.1; O2SAT 93–96
[2021-10-10] MEDS: Acetaminophen 325 MG TABLET 650 MG PO ×2 (03:17→23:29)
[2021-10-10] MEDS: Omeprazole 20 MG CAPSULE.DR PO (05:58)
[2021-10-10] MEDS: Furosemide 20 MG/2 ML VIAL IVPUSH (05:58)
[2021-10-10] MEDS: Levothyroxine Sodium 25 MCG TABLET PO (05:58)
[2021-10-10] MEDS: Levothyroxine Sodium 112 MCG TABLET PO (05:58)
[2021-10-10 07:30] LABS: INTERNATIONAL NORM RATIO 3.2 (0.9-1.1)
[2021-10-10 07:40] LABS: Anion Gap 15 (12-20); Blood Urea Nitrogen 79 mg/dL (9-16); Calcium 8.5 mg/dL (8.4-10.2); Carbon Dioxide 25 mmol/L (22-29); Chloride 106 mmol/L (96-108); Creatinine Clr Calc Pharmacy 17.7; Estimated Glomerular Filt Rate 15; Glucose Random 84 mg/dL (60-115); Potassium 4.4 mmol/L (3.3-5.1); Sodium 142 mmol/L (135-145)
[2021-10-10 07:48] LABS: B Type Natriuretic Peptide 1336 pg/mL (<100)
[2021-10-10] MEDS: Ferrous Sulfate 324 MG TABLET.DR PO ×2 (08:40→20:22)
[2021-10-10] MEDS: Atorvastatin Calcium 40 MG TABLET PO (08:40)
[2021-10-10] MEDS: carvediloL 25 MG TABLET PO ×2 (08:40→16:57)
[2021-10-10] MEDS: Isosorbide Dinitrate 5 MG TABLET PO ×2 (08:40→20:22)
[2021-10-10] MEDS: FLUoxetine HCl 20 MG CAPSULE PO (08:40)
[2021-10-10] MEDS: Artificial Tears 15 ML DROPS 1 DROP EYE-BOTH ×3 (08:42→20:22)
[2021-10-10] MEDS: 0.9 % Sodium Chloride Flush 3 ML SYRINGE IVFLUSH ×3 (08:43→20:25)
--- NOTE | 2021-10-10 09:35 | MHC.CM.PN ---
IMM 10/10/21 FEMALE 71 DX SOB. VAXX x2 She lives with her dtr in adult foster program. She is independent with equipment for adls and ambulates w walker. DP resume services thru [facility]. Dtr will provide transportation @ discharge. HCP on file. Pt reports that she has a new HCP with her dtr as 1st contact and her brother is 2nd. A copy has been requested to update HCP information in system.
--- NOTE | 2021-10-10 10:17 | PM.CNCAR ---
History of Present Illness History of Present Illness Date of Service: 10/10/21 Chief complaint: shortness of breath Narrative: This is a cardiology consultation regarding congestive heart failure. She has multiple medical problems including severe cardiomyopathy, chronic atrial fibrillation, [place] mechanical mitral valve, chronic kidney disease, ICD among others. She states that she has been having increasing leg swelling with good days and bad days. She has also been noticing distention or abdomen. Shortness of breath is about the baseline. Subsequently admitted for further care. It seems that she was just in the hospital about a month ago or so. Review of Systems Review of Systems: Yes all other systems are reviewed and are negative Cardiovascular: Cardiovascular: Reports as per HPI, Reports no additional cardiovascular complaints, Denies acrocyanosis, Denies cool extremities, Denies painful fingertips, Denies chest pain, Denies chest pain at rest, Denies diaphoresis, Denies syncope, Denies irregular heart rhythm, Denies claudication, Reports leg edema, Denies lightheadedness, Denies palpitations and Reports dyspnea Respiratory: Respiratory: Reports dyspnea Gastrointestinal: Comments: Abdominal distension Neurologic: Denies syncope Endocrine: Endocrine: Denies palpitations COUNT INCLUDES THE [facility] Past Medical History Medical History (Updated 10/10/21 @ 10:23 by Neeraj Alexander MD) Acute on chronic heart failure with reduced ejection fraction and diastolic dysfunction Amyloidosis Amyloidosis Anemia Anemia Anxiety and depression Arthritis Bladder hypertonicity Chronic atrial fibrillation Chronic HFrEF (heart failure with reduced ejection fraction) Chronic kidney disease (CKD) stage G4/A1, severely decreased glomerular filtration rate (GFR) between 15-29 mL/min/1.73 square meter and albuminuria creatinine ratio less than 30 mg/g CKD (chronic kidney disease) stage 4, GFR 15-29 ml/min Detached retina Gout Heart disease History of breast cancer History of breast cancer HTN (hypertension) Hypercholesterolemia Hypothyroid ICD (implantable cardioverter-defibrillator) in place Ischemic cardiomyopathy Kidney disease Nephrolithiasis Osteoarthritis Overweight (BMI 25.0-29.9) Pulmonary hypertension Thumb tendonitis Tricuspid regurgitation Urinary incontinence Family History Family History Mother Diabetes Father Past heart attack Diabetes Sister Parkinsons disease Surgical History Surgical History H/O abdominal hysterectomy H/O mitral valve replacement H/O mitral valve replacement with mechanical valve History of bunionectomy History of cataract surgery History of colonoscopy History of left inguinal hernia repair History of sleeve gastrectomy Social History Social History Household Members: Family Household Members Other:: daughter Housing: House Do you presently have visiting nurse or other home services: Yes ([facility] for blood level coumadin checks. PT at home has just finished) Alcohol intake: never Patient Tobacco Use Status: Never used Tobacco Tobacco use type: Cigarette e-Cigarette/Vaping Use: Never Used Second Hand Smoke Exposure: No Advance Directives Date on File: 10/09/21 service: No Current occupational status: disabled Current occupation: left handed Cognitive needs: No Hearing needs: No Vision needs: No Meds Allergies Allergy/AdvReac Type Severity Reaction Status Date / Time TAPE,PAPER Allergy Unknown RASH TO Uncoded 10/09/21 12:18 PAPER TAPE Active Medications: Current Medications Acetaminophen (Acetaminophen 325 Mg Tablet) 650 mg PO Q6H PRN PRN Reason: Pain, Mild (Pain Scale 1-3) Last Admin: 10/10/21 03:17 Dose: 650 mg Documented by: Artificial Tears (Artificial Tears 15 Ml Drops) 1 drop EYE-BOTH TID [facility] Last Admin: 10/10/21 08:42 Dose: 1 drop Documented by: Atorvastatin Calcium (Atorvastatin Calcium 40 Mg Tablet) 40 mg PO DAILY [facility] Last Admin: 10/10/21 08:40 Dose: 40 mg Documented by: Carvedilol (Carvedilol 25 Mg Tablet) 25 mg PO BIDWM [facility]; Protocol Last Admin: 10/10/21 08:40 Dose: 25 mg Documented by: Docusate Sodium (Docusate Sodium 100 Mg Capsule) 200 mg PO BEDTIME [facility] Last Admin: 10/09/21 20:02 Dose: 200 mg Documented by: Ferrous Sulfate (Ferrous Sulfate 324 Mg Tablet.Dr) 324 mg PO BID [facility] Last Admin: 10/10/21 08:40 Dose: 324 mg Documented by: Fluoxetine HCl (Fluoxetine Hcl 20 Mg Capsule) 20 mg PO DAILY [facility] Last Admin: 10/10/21 08:40 Dose: 20 mg Documented by: Furosemide (Furosemide 20 Mg/2 Ml Vial) 40 mg IVPUSH Q12H [facility]; Protocol Isosorbide Dinitrate (Isosorbide Dinitrate 5 Mg Tablet) 5 mg PO BID [facility]; Protocol Last Admin: 10/10/21 08:40 Dose: 5 mg Documented by: Levothyroxine Sodium (Levothyroxine Sodium 112 Mcg Tablet) 112 mcg PO DAILY@0600 [facility] Last Admin: 10/10/21 05:58 Dose: 112 mcg Documented by: Levothyroxine Sodium (Levothyroxine Sodium 25 Mcg Tablet) 25 mcg PO DAILY@0600 [facility] Last Admin: 10/10/21 05:58 Dose: 25 mcg Documented by: Omeprazole (Omeprazole 20 Mg Capsule.) 20 mg PO DAILY@0630 [facility] Last Admin: 10/10/21 05:58 Dose: 20 mg Documented by: Ondansetron HCl (Ondansetron Hcl 4 Mg/2 Ml Vial) 4 mg IVPUSH Q8H PRN PRN Reason: Nausea and Vomiting Pharmacy Consult (Consult Rx Perform Med Rec) 1 each MISCELLANE ONCE PRN PRN Reason: Consult order Potassium Chloride (Potassium Chloride Er 20 Meq Tab.Er.Prt) 20 meq PO Q48H [facility] Last Admin: 10/09/21 16:05 Dose: 20 meq Documented by: Sodium Chloride (0.9 % Sodium Chloride Flush 3 Ml Syringe) 3 ml IVFLUSH QSHIFT [facility] Last Admin: 10/10/21 08:43 Dose: 3 ml Documented by: Trazodone HCl (Trazodone Hcl 50 Mg Tablet) 50 mg PO DAILY PRN PRN Reason: for insomnia Warfarin Sodium (Warfarin Sodium 2.5 Mg Tablet) 2.5 mg PO DAILY@1800 [facility] Last Admin: 10/09/21 20:35 Dose: 2.5 mg Documented by: Home Medications Medication Instructions Recorded Confirmed Last Taken Type acetaminophen 325 mg capsule 325 mg PO QID PRN 08/06/20 10/09/21 10/09/21 History (Tylenol) vit C 250 mg-vit E 90 mg-zinc 40 1 tab PO BID 08/06/20 10/09/21 10/09/21 History mg-copper 1 [id number] capsule (PreserVision AREDS-2) potassium chloride 20 mEq 20 meq PO Q48H 06/19/21 10/09/21 10/09/21 History tablet,extended release(part/cryst) (Klor-Con M) docusate sodium 100 mg capsule 200 mg PO BEDTIME 08/09/21 10/09/21 10/09/21 History artifi.tears(hypromellose)(PF) 0.3 1 drp OPHTHALMIC (EYE) TID 09/03/21 10/09/21 10/09/21 History % eye drops warfarin 2.5 mg tablet 2.5 mg PO DAILY 09/26/21 10/09/21 10/09/21 History calcium 750 mg PO DAILY 10/09/21 10/09/21 10/09/21 History Physical Exam Vital Signs: Vital Signs: Last Vital Signs Temp 98.7 F 10/10/21 07:24 Pulse 72 10/10/21 08:40 Resp 18 10/10/21 03:07 BP 101/51 L 10/10/21 08:40 Pulse Ox 94 10/10/21 07:24 BMI result Body Mass Index 23.7 Const: General: cooperative and no acute distress HENMT: Other: Unremarkable Neck: Neck: Yes normal visual inspection Chest: Chest palpation & inspection: normal inspection of the chest Resp: Auscultation: clear to auscultation bilaterally, no crackles and no wheezes Cardio: Other: Prosthetic heart sounds+ Jugular venous distension: no JVD Palpation: normal PMI Heart sounds: Murmur heart sound present diastolic and systolic GI: Palpation (GI): Soft to palpation Back/Spine/Pelvis: Other: unremarkable Skin: General skin exam: no rashes or lesions noted Neuro: Cranial nerves: Yes Other cranial nerve findings present Extrem: General: Yes edema (2+ R>L) Psych: Mental Status: other Objective Labs and Meds Result diagrams: 10/09/21 11:16 10/10/21 07:01 Lab results: Laboratory Results - last 24 hr 10/09/21 10/09/21 10/09/21 11:16 11:16 11:16 WBC 4.8 RBC 3.44 L Hgb 9.6 L Hct 32.7 L MCV 95.1 MCH 27.9 MCHC 29.4 L RDW 19.7 H Plt Count 126 L MPV 11.6 Immature Gran % (Auto) 0.4 Neut % (Auto) 83.6 H Lymph % (Auto) 5.6 L Terrell % (Auto) 9.4 Eos % (Auto) 0.8 Baso % (Auto) 0.2 Lymph # (Auto) 0.3 L Terrell # (Auto) 0.5 Eos # (Auto) 0.0 Baso # (Auto) 0.0 Abs Immat Gran (auto) 0.02 Absolute Neuts (auto) 4.0 Absolute Nucleated RBC 0.000 Nucleated RBC % (auto) 0.0 PT INR Sodium 140 Potassium 3.9 Chloride 103 Carbon Dioxide 28 Anion Gap 13 BUN 77 H Creatinine 3.06 H Estim Creat Clear Calc 17.9 Estimated GFR 15 Random Glucose 92 Calcium 8.8 D Total Bilirubin 0.8 AST 20 ALT 23 Alkaline Phosphatase 153 H Troponin I High Sens 866.7 H* B-Natriuretic Peptide 1374 H Total Protein 7.1 Albumin 3.3 L TSH COVID-19 (ANEUDY) COVID-19 [facility] 10/09/21 10/09/21 10/09/21 11:16 13:42 16:27 WBC RBC Hgb Hct MCV MCH MCHC RDW Plt Count MPV Immature Gran % (Auto) Neut % (Auto) Lymph % (Auto) Terrell % (Auto) Eos % (Auto) Baso % (Auto) Lymph # (Auto) Terrell # (Auto) Eos # (Auto) Baso # (Auto) Abs Immat Gran (auto) Absolute Neuts (auto) Absolute Nucleated RBC Nucleated RBC % (auto) PT 34.3 H INR 2.9 H Sodium Potassium Chloride Carbon Dioxide Anion Gap BUN Creatinine Estim Creat Clear Calc Estimated GFR Random Glucose Calcium Total Bilirubin AST ALT Alkaline Phosphatase Troponin I High Sens 878.1 H* B-Natriuretic Peptide Total Protein Albumin TSH COVID-19 (ANEUDY) Negative COVID-19 [facility] See Note 10/09/21 10/10/21 10/10/21 16:27 07:01 07:01 WBC RBC Hgb Hct MCV MCH MCHC RDW Plt Count MPV Immature Gran % (Auto) Neut % (Auto) Lymph % (Auto) Terrell % (Auto) Eos % (Auto) Baso % (Auto) Lymph # (Auto) Terrell # (Auto) Eos # (Auto) Baso # (Auto) Abs Immat Gran (auto) Absolute Neuts (auto) Absolute Nucleated RBC Nucleated RBC % (auto) PT 37.0 H INR 3.2 H Sodium 142 Potassium 4.4 Chloride 106 Carbon Dioxide 25 Anion Gap 15 BUN 79 H Creatinine 3.08 H Estim Creat Clear Calc 17.7 Estimated GFR 15 Random Glucose 84 Calcium 8.5 Total Bilirubin AST ALT Alkaline Phosphatase Troponin I High Sens B-Natriuretic Peptide Total Protein Albumin TSH 7.28 H COVID-19 (ANEUDY) COVID-19 Clin Com 10/10/21 07:01 WBC RBC Hgb Hct MCV MCH MCHC RDW Plt Count MPV Immature Gran % (Auto) Neut % (Auto) Lymph % (Auto) Terrell % (Auto) Eos % (Auto) Baso % (Auto) Lymph # (Auto) Terrell # (Auto) Eos # (Auto) Baso # (Auto) Abs Immat Gran (auto) Absolute Neuts (auto) Absolute Nucleated RBC Nucleated RBC % (auto) PT INR Sodium Potassium Chloride Carbon Dioxide Anion Gap BUN Creatinine Estim Creat Clear Calc Estimated GFR Random Glucose Calcium Total Bilirubin AST ALT Alkaline Phosphatase Troponin I High Sens B-Natriuretic Peptide 1336 H Total Protein Albumin TSH COVID-19 (ANEUDY) COVID-19 Clin Com ECG Interpretation: EKG shows atrial fibrillation; old septal infarct; PVCs; 74/Min. Imaging Radiologist's impression: Impressions Chest X-Ray 10/09/21 11:05 IMPRESSION: Cardiomegaly without pulmonary vascular congestion. The right pleural effusion and underlying atelectasis. No change in the right pacer electrode. No major change compared to 09/03/2021. Assessment and Plan (1) Acute on chronic right-sided congestive heart failure: Status: Acute (2) Mechanical heart valve present: Status: Acute (3) Chronic atrial fibrillation: Status: Acute Pertinent labs reviewed. Hemoglobin 9.6. INR 3.2. BUN 79. Creatinine is 3.08. Renal function not too different from before. High sensitivity troponin 866 and 878 but again several previous values have been in the 600s and 700s. In the recent echocardiogram, severely dilated LV size reported with LVEF of 15-20%. There was also diminished RV function. Normally function mechanical mitral valve. Moderate to severe tricuspid regurgitation, elevation right atrial pressure as well as pulmonary hypertension. Overall, clinically she is in a right heart failure based on abdominal distention and leg swelling. She does not have much of pulmonary congestion on examination. Even the chest x-rays not showing any pulmonary vascular congestion. Agree with IV diuretics. However she already has advanced renal dysfunction and hence will also need to get Nephrology on board to ensure this is monitored closely. Will follow up with you. Procedures Date of Service Date of Service: 10/10/21
[2021-10-10] MEDS: Furosemide 20 MG/2 ML VIAL 40 MG IVPUSH ×2 (10:30→21:32)
--- NOTE | 2021-10-10 14:24 | P.PNIM_ITS ---
Subjective Subjective Date of Service: 10/10/21 Interval History: Being followed for congestive heart failure, feeling better denies shortness of breath, no chest pain, no abdominal pain, requesting for hemorrhoidal cream, slept well overnight but felt anxious, is on Prozac 20 mg daily, no other acute issues overnight. Review of Systems General no headache, no dizziness, no fever chills.? CVS no chest pain, no palpitation.? Respiratory no cough, shortness of breath.? Gastrointestinal no nausea, no vomiting, no abdominal pain, noted some blood on toilet paper Musculoskeletal no pain no urinary frequency or urgency Skin no rash? Yes all other systems are reviewed and are negative Physical Exam Vital Signs: Vital Signs: Last Vital Signs Temp 98.8 F 10/10/21 11:06 Pulse 69 10/10/21 11:06 Resp 16 10/10/21 11:06 BP 100/47 L 10/10/21 11:06 Pulse Ox 96 10/10/21 11:06 BMI result Body Mass Index 23.7 General awake alert x3, no respiratory distress Prostatic left eye Neck + JVD. CVS? regular rate rhythm, Respiratory lungs no crackles, no use of accessory muscles, no wheeze, no rhonchi. Gastrointestinal abdomen soft, distended, nontender, bowel sounds audible, no guarding , no rigidity. Extremities bilateral edema right greater than left Neuro nonfocal Skin no rash Psych appropriate affect Objective Data Active Medications Acetaminophen (Acetaminophen 325 Mg Tablet) 650 mg PO Q6H PRN PRN Reason: Pain, Mild (Pain Scale 1-3) Last Admin: 10/10/21 03:17 Dose: 650 mg Documented by: NANCY Artificial Tears (Artificial Tears 15 Ml Drops) 1 drop EYE-BOTH TID [facility] Last Admin: 10/10/21 08:42 Dose: 1 drop Documented by: MADHU Atorvastatin Calcium (Atorvastatin Calcium 40 Mg Tablet) 40 mg PO DAILY [facility] Last Admin: 10/10/21 08:40 Dose: 40 mg Documented by: MADHU Carvedilol (Carvedilol 25 Mg Tablet) 25 mg PO BIDWM [facility]; Protocol Last Admin: 10/10/21 08:40 Dose: 25 mg Documented by: MADHU Docusate Sodium (Docusate Sodium 100 Mg Capsule) 200 mg PO BEDTIME [facility] Last Admin: 10/09/21 20:02 Dose: 200 mg Documented by: DELFINO Ferrous Sulfate (Ferrous Sulfate 324 Mg Tablet.) 324 mg PO BID [facility] Last Admin: 10/10/21 08:40 Dose: 324 mg Documented by: MADHU Fluoxetine HCl (Fluoxetine Hcl 20 Mg Capsule) 20 mg PO DAILY [facility] Last Admin: 10/10/21 08:40 Dose: 20 mg Documented by: MADHU Furosemide (Furosemide 20 Mg/2 Ml Vial) 40 mg IVPUSH Q12H [facility]; Protocol Last Admin: 10/10/21 10:30 Dose: 40 mg Documented by: MADHU Isosorbide Dinitrate (Isosorbide Dinitrate 5 Mg Tablet) 5 mg PO BID [facility]; Protocol Last Admin: 10/10/21 08:40 Dose: 5 mg Documented by: MADHU Levothyroxine Sodium (Levothyroxine Sodium 112 Mcg Tablet) 112 mcg PO DAILY@0600 [facility] Last Admin: 10/10/21 05:58 Dose: 112 mcg Documented by: NANCY Levothyroxine Sodium (Levothyroxine Sodium 25 Mcg Tablet) 25 mcg PO DAILY@0600 [facility] Last Admin: 10/10/21 05:58 Dose: 25 mcg Documented by: NANCY Omeprazole (Omeprazole 20 Mg Capsule.) 20 mg PO DAILY@0630 [facility] Last Admin: 10/10/21 05:58 Dose: 20 mg Documented by: NANCY Ondansetron HCl (Ondansetron Hcl 4 Mg/2 Ml Vial) 4 mg IVPUSH Q8H PRN PRN Reason: Nausea and Vomiting Pharmacy Consult (Consult Rx Perform Med Rec) 1 each MISCELLANE ONCE PRN PRN Reason: Consult order Potassium Chloride (Potassium Chloride Er 20 Meq Tab.Er.Prt) 20 meq PO Q48H [facility] Last Admin: 10/09/21 16:05 Dose: 20 meq Documented by: GISSELLE Sodium Chloride (0.9 % Sodium Chloride Flush 3 Ml Syringe) 3 ml IVFLUSH QSHIFT [facility] Last Admin: 10/10/21 08:43 Dose: 3 ml Documented by: MADHU Trazodone HCl (Trazodone Hcl 50 Mg Tablet) 50 mg PO DAILY PRN PRN Reason: for insomnia Warfarin Sodium (Warfarin Sodium 2.5 Mg Tablet) 2.5 mg PO DAILY@1800 [facility] Last Admin: 10/09/21 20:35 Dose: 2.5 mg Documented by: DELFINO Comments: patient has coumadin listed on her morning medications list. However she states she did not take it today. Called patients daughter to confirm. States that patient does have coumadin listed as a morning medication but they usually wait until the are called and told the range before giving the daily dose so she usually does not take it until afternoon and did not take a dose today. Labs CBC & Chem 7: 10/09/21 11:16 10/10/21 07:01 Labs: Laboratory Results - last 24 hr 10/09/21 10/09/21 10/10/21 16:27 16:27 07:01 PT 37.0 H INR 3.2 H Anion Gap Estim Creat Clear Calc Estimated GFR Random Glucose Calcium Troponin I High Sens 878.1 H* B-Natriuretic Peptide TSH 7.28 H 10/10/21 10/10/21 07:01 07:01 PT INR Anion Gap 15 Estim Creat Clear Calc 17.7 Estimated GFR 15 Random Glucose 84 Calcium 8.5 Troponin I High Sens B-Natriuretic Peptide 1336 H TSH Assessment and Plan (1) CKD (chronic kidney disease) stage 4, GFR 15-29 ml/min: Status: Acute (2) Acute on chronic right-sided congestive heart failure: Status: Acute (3) Chronic atrial fibrillation: Status: Acute Assessment and Plan: ?71-year-old female with past medical history of hypertension, hyperlipidemia, CAD, CHF with reduced ejection fraction, status post AICD/pacemaker, CKD, hypothyroidism, pulmonary hypertension, history of mechanical mitral and aortic valve-on Coumadin; history of retinal detachment; history of bladder cancer, amyloidosis, arthritis, anxiety, depression, presented to the hospital with a chief complaint of abdominal and leg swelling times several weeks. ?Acute on chronic HFrEF with increased leg edema and ascites ?Shortness of breath is better, no chest pain, troponins chronically elevated likely due to kidney disease BNP remains elevated 1336 no significant change since admission 1374 ?EKG shows junctional rhythm with prolonged QTC of 530 ?Recent echo showed EF 15-20% with decreased right ventricular function, Mechanical mitral prosthetic valve and moderate to severe tricuspid regurgitation ?Recent outpatient abdominal ultrasound 09/20 showed ascites, likely due to right-sided heart failure ?Will increase dose of Lasix to 40 mg b.i.d. follow I/O, low-salt diet ?Seen by Dr. Alexander he agreed with above treatment, due to so significant stage IV renal disease he recommend nephrology input follow BMP and BNP, ?continue carvedilol, and isosorbide dinitrate ?Abdominal distension likely due to ascites with right-sided heart failure as shown on recent abdominal ultrasound 09/20, patient asymptomatic with no nausea, no vomiting, or abdominal pain, no fevers ?Will diurese and follow clinical course. ? Acute on chronic CKD 4 Slight bump in creatinine to 3.06 baseline creatinine around 2.5-2.6 will diurese and follow renal function, await nephro input History of mechanical mitral wall:?continue anticoagulation with coumadin,? INR 3.2 in desired range between 2.5 and 3.5 History of hypothyroidism:? Continue home levothyroxine, will check TSH History of hypertension BP stable continue home medications and follow BP closely hyperlipidemia:? Continue statin mood disorder? continue fluoxetine History of hemorrhoids will add hemorrhoidal cream DVT prophylaxis on Coumadin Code status full code Quality Stroke Does the patient have a stroke diagnosis?: No VTE Prior VTE?: No VTE Risk Level:: Medical - moderate - high VTE Device Contraindication: Treatment Not Indicated VTE Drug Contraindication: N/A - Med Ordered
--- NOTE | 2021-10-10 15:29 | CONS_ITS ---
DATE OF SERVICE: 10/10/2021 REASON FOR CONSULTATION: I was asked to see the patient to assist in evaluation and management of the patient's advanced chronic kidney disease with creatinine today of 3.08. Her baseline creatinine seems to run in the 2.5 to 3.0 range on the backdrop of multiple chronic medical problems. HISTORY OF PRESENT ILLNESS: In summary, she is a 71-year-old patient with history of hypertension, hyperlipidemia, coronary artery disease, heart failure with reduced EF of around 15% to 20%. She has an AICD pacer in place. She has had a [place] valve and advanced chronic kidney disease. Baseline creatinine 2.5 to 3.0. There is mention made of a history of amyloidosis and prior kidney biopsy and evaluation in the past back in 2018, which showed evidence of IgA. On this backdrop of multiple chronic medical problems, she now re-presented to the hospital, having been hospitalized in August with similar episode, now presents with increasing swelling of the legs, abdominal bloating and distention that got progressively worse along with increasing dyspnea on exertion. She tells me the diuretics she is taking do not seem to be working. She does admit to poor compliance of low-salt diet. There has been no fever, sweats, chills, nausea, or vomiting. PAST MEDICAL HISTORY: As outlined above. MEDICATIONS: Her medications on admission were listed as including potassium 20 mEq a day, Coumadin and diuretics, although it is not listed in the admitting notes. She tells me, she was on 20 mg twice a day was recently increased to 40 mg twice a day of Lasix. Her current medications are noted in the MAR. SOCIAL HISTORY: She denies any history of smoking or alcohol use. She denies taking NSAIDs. REVIEW OF SYSTEMS: As noted above. FAMILY HISTORY: Notable for cardiac disease and diabetes. PHYSICAL EXAMINATION: GENERAL: Cachectic, ill-appearing patient. VITAL SIGNS: Blood pressure 100/40, heart rate of 70. She is afebrile. She is on room air. NECK: She has JVD. LUNGS: Decreased breath sounds at the bases. CARDIAC: Regular rate and rhythm with murmur. ABDOMEN: Soft, nontender with what appears to be ascites. EXTREMITIES: Shows 2+ pitting edema up to the knees bilaterally. NEURO: There is no asterixis. LABORATORY DATA: Show hemoglobin 9.6, hematocrit 32.7, white blood cell count 4.8, platelet count 126. Sodium 142, potassium 4.4, chloride 106, bicarb 25, BUN 79, creatinine 3.08. BNP level was 1336. TSH was 7.28. On admission, BUN and creatinine were 77 and 3.06. As mentioned, her baseline creatinine is in the 2.5 to 3.0 range and BUN typically in the 70 to 80 range. Urine studies in the past have shown significant protein in the urine and actually there is urine protein-creatinine ratio about 5, suggesting 5 g of protein per gram of creatinine. Back in September, she had an ultrasound of the abdomen, which showed small amount of ascites. IMPRESSION: A 71-year-old with advanced chronic kidney disease in the backdrop of a history of IgA nephropathy, severe cardiomyopathy with an EF of 15% to 20% and recurrent hospitalizations for hypervolemia and diuretic resistance. 1. Advanced chronic kidney disease. This is most likely multifactorial including her underlying IgA nephropathy on a biopsy back in 2017, along with most likely chronic cardiorenal syndrome due to her low ejection fraction state and cardiac output. Management has been challenging. She seems diuretic resistant and is at risk of worsening renal function with diuresis. 2. Hypervolemia. The plan is to try and diurese her, monitor renal function. See if the renal function actually improved. There is a subset of patients with diuresis get decongestion of the kidney and improve renal function. This is typically in patients with cardiorenal syndrome and have more significant right heart failure than left heart failure. Nonetheless, we will see what type response she has to diuresis. 3. Heart failure with reduced ejection fraction. She is being seen by Cardiology. There is mention made of amyloid. It is unclear if there was amyloid in the heart. There is no mention made of amyloid on the kidney biopsy done in 2018. 4. Overall difficult patient in terms of management. It is possible that she is heading towards end-stage renal disease and consideration of peritoneal dialysis could be raised if we cannot diurese her without worsening azotemia. We will hold off on pursuing peritoneal dialysis at this time, but if situation worsens and she has repetitive hospitalizations, this would be a consideration. SUGGESTIONS: At this time include, agree with diuresis. Avoid nephrotoxins. We will check repeat urine studies including urine protein-creatinine ratio. We will go ahead and do a 24-hour urine collection to do a creatinine clearance and urea clearance while she is an inpatient. We will follow with the team. MD PANDA Garcia/ABIGAIL / [phone]
[2021-10-10] MEDS: Warfarin Sodium 2.5 MG TABLET PO (17:00)
[2021-10-10] MEDS: Pramoxine HCl 1 % Rectal Foam 15 GM 1 APPL PR (18:00)
[2021-10-10] MEDS: Docusate Sodium 100 MG CAPSULE 200 MG PO (20:22)
[2021-10-10] MEDS: Calcium Carbonate 750 MG TAB.CHEW PO (23:18)
[2021-10-11] VITALS (10 sets, daily range): BP systolic 109–121; BP diastolic 62–66; PULSE 60–85; RESP 18–20; TEMP 36.4–37.1; O2SAT 94–97
[2021-10-11 04:57] LABS: Appearance Urine CLEAR; Color Urine YELLOW; Glucose Urine UA NEG (NEG); Leukocyte Esterase Urine NEG (NEG); Nitrite Urine NEG (NEG); PH 5.5 (5.0-8.0); Urine Blood TRACE (NEG); Urine Ketones NEG (NEG); Urine Protein 2+ MG/DL (NEG-TRACE)
[2021-10-11 05:18] LABS: RBC Urine 0-2 /HPF (0); Renal Epithelial Cells Urine 1+ /LPF; Squamous Epithelial Cell Urine 1+ /LPF
[2021-10-11 05:25] LABS: Creatinine Urine 71.69 mg/dL
[2021-10-11] MEDS: Omeprazole 20 MG CAPSULE.DR PO (05:35)
[2021-10-11] MEDS: Levothyroxine Sodium 112 MCG TABLET PO (05:35)
[2021-10-11] MEDS: Levothyroxine Sodium 25 MCG TABLET PO (05:35)
[2021-10-11 05:37] LABS: Total Protein Urine Random 247 mg/dL (<12)
[2021-10-11 07:19] LABS: Anion Gap 16 (12-20); Blood Urea Nitrogen 82 mg/dL (9-16); Calcium 8.4 mg/dL (8.4-10.2); Carbon Dioxide 26 mmol/L (22-29); Chloride 104 mmol/L (96-108); Estimated Glomerular Filt Rate 14; Glucose Random 90 mg/dL (60-115); INTERNATIONAL NORM RATIO 3.4 (0.9-1.1); Potassium 4.5 mmol/L (3.3-5.1); Prothrombin Time 39.9 SEC (9.9-13.0); Sodium 141 mmol/L (135-145)
[2021-10-11 07:48] LABS: B Type Natriuretic Peptide 934 pg/mL (<100)
--- NOTE | 2021-10-11 09:36 | MHC.CM.PN ---
Female 71 DX HF ALIZA/CKD DP return to her dtrs for home adult foster program. [facility] and PT will resume services. Pt dtr will transport to home. Patient 100%Spo2 AA. Renal function worse today..
[2021-10-11] MEDS: carvediloL 25 MG TABLET PO ×2 (10:10→17:35)
[2021-10-11] MEDS: 0.9 % Sodium Chloride Flush 3 ML SYRINGE IVFLUSH ×3 (10:11→20:54)
[2021-10-11] MEDS: Isosorbide Dinitrate 5 MG TABLET PO ×2 (10:11→20:53)
[2021-10-11] MEDS: FLUoxetine HCl 20 MG CAPSULE PO (10:11)
[2021-10-11] MEDS: Furosemide 20 MG/2 ML VIAL 40 MG IVPUSH (10:11)
[2021-10-11] MEDS: Atorvastatin Calcium 40 MG TABLET PO (10:11)
[2021-10-11] MEDS: Ferrous Sulfate 324 MG TABLET.DR PO ×2 (10:11→20:53)
[2021-10-11] MEDS: Calcium Carbonate 750 MG TAB.CHEW PO (10:12)
[2021-10-11] MEDS: Artificial Tears 15 ML DROPS 1 DROP EYE-BOTH ×3 (10:15→22:46)
--- NOTE | 2021-10-11 10:37 | PM.PNCARD ---
Subjective Subjective Date of Service: 10/11/21 Interval history: Still feels distended in abdomen. Otherwise ok. Review of Systems Review of Systems Yes all other systems are reviewed and are negative Cardiovascular: Reports as per HPI, Reports no additional cardiovascular complaints, Denies acrocyanosis, Denies cool extremities, Denies painful fingertips, Denies chest pain, Denies chest pain at rest, Denies diaphoresis, Denies syncope, Denies irregular heart rhythm, Denies claudication, Reports leg edema, Denies lightheadedness, Denies palpitations and Reports dyspnea Respiratory: Reports dyspnea Denies syncope Endocrine: Denies palpitations Physical Exam Vital Signs: Last Vital Signs Temp 97.5 F 10/11/21 07:54 Pulse 60 10/11/21 10:11 Resp 20 10/11/21 07:54 BP 114/66 10/11/21 10:11 Pulse Ox 95 10/11/21 07:54 BMI result Body Mass Index 23.7 Const General: cooperative and no acute distress HENMT Other: Unremarkable Neck Neck: Yes normal visual inspection Chest Chest palpation & inspection: normal inspection of the chest Resp Auscultation: clear to auscultation bilaterally, no crackles and no wheezes Cardio Other: Prosthetic heart sounds+ Jugular venous distension: no JVD Palpation: normal PMI Heart sounds: Murmur heart sound present diastolic and systolic GI Palpation (GI): Soft to palpation Back/Spine/Pelvis Other: unremarkable Skin General skin exam: no rashes or lesions noted Neuro Cranial nerves: Yes Other cranial nerve findings present Extrem General: Yes edema (2+ R>L) Psych Mental Status: other Objective Labs and Meds Result diagrams: 10/09/21 11:16 10/11/21 06:38 Lab results: Laboratory Results - last 24 hr 10/10/21 10/11/21 10/11/21 00:00 04:18 06:38 PT INR Sodium 141 Potassium 4.5 Chloride 104 Carbon Dioxide 26 Anion Gap 16 BUN 82 H Creatinine 3.21 H Estim Creat Clear Calc 17.0 Estimated GFR 14 Random Glucose 90 Calcium 8.4 B-Natriuretic Peptide Urine Color YELLOW Urine Appearance CLEAR Urine pH 5.5 Ur Specific [place] 1.020 Urine Protein 2+ H Urine Glucose (UA) NEG Urine Ketones NEG Urine Blood TRACE Urine Nitrite NEG Ur Leukocyte Esterase NEG Urine RBC 0-2 Urine WBC 1-4 Ur Squamous Epith Cells 1+ Ur Renal Epithelial Cell 1+ Urine Bacteria NONE U Random Total Protein 247 H Ur Random Sodium 20.0 Urine Creatinine 71.69 10/11/21 10/11/21 06:38 06:38 PT 39.9 H INR 3.4 H Sodium Potassium Chloride Carbon Dioxide Anion Gap BUN Creatinine Estim Creat Clear Calc Estimated GFR Random Glucose Calcium B-Natriuretic Peptide 934 H Urine Color Urine Appearance Urine pH Ur Specific [place] Urine Protein Urine Glucose (UA) Urine Ketones Urine Blood Urine Nitrite Ur Leukocyte Esterase Urine RBC Urine WBC Ur Squamous Epith Cells Ur Renal Epithelial Cell Urine Bacteria U Random Total Protein Ur Random Sodium Urine Creatinine Progress Note: A&P Assessment and plan (1) Acute on chronic right-sided congestive heart failure: Status: Acute (2) Mechanical heart valve present: Status: Acute (3) Chronic atrial fibrillation: Status: Acute Assessment and Plan: Pertinent labs reviewed. Cardiac BNP today is 934. On admission, 1374-slight improvement. Creatinine is 3.21. On admission it was 3.06. BUN is 82. Admission was 77. High sensitivity troponin 866 and 878 but again several previous values have been in the 600s and 700s. In the recent echocardiogram, severely dilated LV size reported with LVEF of 15-20%. There was also diminished RV function. Normally function mechanical mitral valve. Moderate to severe tricuspid regurgitation, elevation right atrial pressure as well as pulmonary hypertension. Overall, clinically she is in a right heart failure based on abdominal distention and leg swelling. She does not have much of pulmonary congestion on examination. Even the chest x-rays not showing any pulmonary vascular congestion. Based on input output charting, she is -375 CC but again not sure how accurate this is. Clinically she still has ascites and some leg swelling. Marginal improvement in the leg swelling compared to yesterday. She is on Lasix IV 40 mg b.i.d. and the kidney function slightly going up. Will need to discuss with Nephrology for increasing this. Patient and daughter stated that somebody mentioned to her about paracentesis. This is reasonable but she is on anticoagulation and if that needs to be held, then probably not ideal. Fall Risk Details Current Medications: Current Medications Acetaminophen (Acetaminophen 325 Mg Tablet) 650 mg PO Q6H PRN PRN Reason: Pain, Mild (Pain Scale 1-3) Last Admin: 10/10/21 23:29 Dose: 650 mg Documented by: Artificial Tears (Artificial Tears 15 Ml Drops) 1 drop EYE-BOTH TID [facility] Last Admin: 10/11/21 10:15 Dose: 1 drop Documented by: Atorvastatin Calcium (Atorvastatin Calcium 40 Mg Tablet) 40 mg PO DAILY [facility] Last Admin: 10/11/21 10:11 Dose: 40 mg Documented by: Calcium Carbonate (Calcium Carbonate 750 Mg Tab.Chew) 750 mg PO Q6H PRN PRN Reason: Heartburn Last Admin: 10/11/21 10:12 Dose: 750 mg Documented by: Carvedilol (Carvedilol 25 Mg Tablet) 25 mg PO BIDWM [facility]; Protocol Last Admin: 10/11/21 10:10 Dose: 25 mg Documented by: Docusate Sodium (Docusate Sodium 100 Mg Capsule) 200 mg PO BEDTIME [facility] Last Admin: 10/10/21 20:22 Dose: 200 mg Documented by: Ferrous Sulfate (Ferrous Sulfate 324 Mg Tablet.) 324 mg PO BID [facility] Last Admin: 10/11/21 10:11 Dose: 324 mg Documented by: Fluoxetine HCl (Fluoxetine Hcl 20 Mg Capsule) 20 mg PO DAILY [facility] Last Admin: 10/11/21 10:11 Dose: 20 mg Documented by: Furosemide (Furosemide 20 Mg/2 Ml Vial) 40 mg IVPUSH Q12H [facility]; Protocol Last Admin: 10/11/21 10:11 Dose: 40 mg Documented by: Isosorbide Dinitrate (Isosorbide Dinitrate 5 Mg Tablet) 5 mg PO BID [facility]; Protocol Last Admin: 10/11/21 10:11 Dose: 5 mg Documented by: Levothyroxine Sodium (Levothyroxine Sodium 150 Mcg Tablet) 150 mcg PO DAILY@0600 [facility] Omeprazole (Omeprazole 20 Mg Capsule.) 20 mg PO DAILY@0630 [facility] Last Admin: 10/11/21 05:35 Dose: 20 mg Documented by: Ondansetron HCl (Ondansetron Hcl 4 Mg/2 Ml Vial) 4 mg IVPUSH Q8H PRN PRN Reason: Nausea and Vomiting Pharmacy Consult (Consult Rx Perform Med Rec) 1 each MISCELLANE ONCE PRN PRN Reason: Consult order Potassium Chloride (Potassium Chloride Er 20 Meq Tab.Er.Prt) 20 meq PO Q48H [facility] Last Admin: 10/09/21 16:05 Dose: 20 meq Documented by: Sodium Chloride (0.9 % Sodium Chloride Flush 3 Ml Syringe) 3 ml IVFLUSH QSHIFT [facility] Last Admin: 10/11/21 10:11 Dose: 3 ml Documented by: Trazodone HCl (Trazodone Hcl 50 Mg Tablet) 50 mg PO DAILY PRN PRN Reason: for insomnia Warfarin Sodium (Warfarin Sodium 2.5 Mg Tablet) 2.5 mg PO DAILY@1800 [facility] Last Admin: 10/10/21 17:00 Dose: 2.5 mg Documented by: Time Spent With Patient Time: Total time spent is greater than 50% in coordination of care (as documented) at patient's floor/unit and/or counseling patient: Time with patient: less than 15 minutes Progress Note: Quality Stroke Does the patient have a stroke diagnosis?: No Procedures Date of Service Date of Service: 10/11/21
--- NOTE | 2021-10-11 17:28 | P.PNIM_ITS ---
Subjective Subjective Date of Service: 10/11/21 Interval History: denies dyspnea endorses abd distension but not particularly bothersome Review of Systems Review of Systems: Yes all other systems are reviewed and are negative Physical Exam Vital Signs: Vital Signs: Last Vital Signs Temp 98.4 F 10/11/21 16:00 Pulse 85 10/11/21 16:00 Resp 19 10/11/21 16:00 BP 121/64 10/11/21 16:00 Pulse Ox 97 10/11/21 16:00 BMI result Body Mass Index 23.7 Gen: in no acute distress HEENT: sclera anicteric, moist mucus membranes, prosthetic L eye Neck: supple Lungs: diminished at R base Heart: regular rate and rhythm, mechanical S1, no murmurs Abd: soft, non-tender, distended, ?fluid wave Ext: 2+ pitting edema BLEs Skin: warm/well-perfused Neuro: alert and oriented x3, no focal findings Psych: appropriate affect Objective Data Active Medications Acetaminophen (Acetaminophen 325 Mg Tablet) 650 mg PO Q6H PRN PRN Reason: Pain, Mild (Pain Scale 1-3) Last Admin: 10/10/21 23:29 Dose: 650 mg Documented by: IDALIA Artificial Tears (Artificial Tears 15 Ml Drops) 1 drop EYE-BOTH TID COUNTS INCLUDE 234 BEDS AT THE [facility] Last Admin: 10/11/21 10:15 Dose: 1 drop Documented by: RUTH Atorvastatin Calcium (Atorvastatin Calcium 40 Mg Tablet) 40 mg PO DAILY COUNTS INCLUDE 234 BEDS AT THE [facility] Last Admin: 10/11/21 10:11 Dose: 40 mg Documented by: RUTH Calcium Carbonate (Calcium Carbonate 750 Mg Tab.Chew) 750 mg PO Q6H PRN PRN Reason: Heartburn Last Admin: 10/11/21 10:12 Dose: 750 mg Documented by: RUTH Carvedilol (Carvedilol 25 Mg Tablet) 25 mg PO BIDWM COUNTS INCLUDE 234 BEDS AT THE [facility]; Protocol Last Admin: 10/11/21 10:10 Dose: 25 mg Documented by: RUTH Docusate Sodium (Docusate Sodium 100 Mg Capsule) 200 mg PO BEDTIME COUNTS INCLUDE 234 BEDS AT THE [facility] Last Admin: 10/10/21 20:22 Dose: 200 mg Documented by: IDALIA Ferrous Sulfate (Ferrous Sulfate 324 Mg Tablet.) 324 mg PO BID COUNTS INCLUDE 234 BEDS AT THE [facility] Last Admin: 10/11/21 10:11 Dose: 324 mg Documented by: RUTH Fluoxetine HCl (Fluoxetine Hcl 20 Mg Capsule) 20 mg PO DAILY COUNTS INCLUDE 234 BEDS AT THE [facility] Last Admin: 10/11/21 10:11 Dose: 20 mg Documented by: RUTH Furosemide (Furosemide 20 Mg/2 Ml Vial) 40 mg IVPUSH Q12H COUNTS INCLUDE 234 BEDS AT THE [facility]; Protocol Last Admin: 10/11/21 10:11 Dose: 40 mg Documented by: RUTH Isosorbide Dinitrate (Isosorbide Dinitrate 5 Mg Tablet) 5 mg PO BID COUNTS INCLUDE 234 BEDS AT THE [facility]; Protocol Last Admin: 10/11/21 10:11 Dose: 5 mg Documented by: RUTH Levothyroxine Sodium (Levothyroxine Sodium 150 Mcg Tablet) 150 mcg PO DAILY@0600 COUNTS INCLUDE 234 BEDS AT THE [facility] Omeprazole (Omeprazole 20 Mg Capsule.) 20 mg PO DAILY@0630 COUNTS INCLUDE 234 BEDS AT THE [facility] Last Admin: 10/11/21 05:35 Dose: 20 mg Documented by: IDALIA Ondansetron HCl (Ondansetron Hcl 4 Mg/2 Ml Vial) 4 mg IVPUSH Q8H PRN PRN Reason: Nausea and Vomiting Pharmacy Consult (Consult Rx Perform Med Rec) 1 each MISCELLANE ONCE PRN PRN Reason: Consult order Potassium Chloride (Potassium Chloride Er 20 Meq Tab.Er.Prt) 20 meq PO Q48H COUNTS INCLUDE 234 BEDS AT THE [facility] Last Admin: 10/09/21 16:05 Dose: 20 meq Documented by: GISSELLE Sodium Chloride (0.9 % Sodium Chloride Flush 3 Ml Syringe) 3 ml IVFLUSH QSHIFT COUNTS INCLUDE 234 BEDS AT THE [facility] Last Admin: 10/11/21 10:11 Dose: 3 ml Documented by: RUTH Trazodone HCl (Trazodone Hcl 50 Mg Tablet) 50 mg PO DAILY PRN PRN Reason: for insomnia Warfarin Sodium (Warfarin Sodium 2.5 Mg Tablet) 2.5 mg PO DAILY@1800 COUNTS INCLUDE 234 BEDS AT THE [facility] Last Admin: 10/10/21 17:00 Dose: 2.5 mg Documented by: MADHU Labs CBC & Chem 7: 10/09/21 11:16 10/11/21 06:38 Labs: Laboratory Results - last 24 hr 10/10/21 10/11/21 10/11/21 00:00 04:18 06:38 PT INR Anion Gap 16 Estim Creat Clear Calc 17.0 Estimated GFR 14 Random Glucose 90 Calcium 8.4 B-Natriuretic Peptide Urine Color YELLOW Urine Appearance CLEAR Urine pH 5.5 Ur Specific [place] 1.020 Urine Protein 2+ H Urine Glucose (UA) NEG Urine Ketones NEG Urine Blood TRACE Urine Nitrite NEG Ur Leukocyte Esterase NEG Urine RBC 0-2 Urine WBC 1-4 Ur Squamous Epith Cells 1+ Ur Renal Epithelial Cell 1+ Urine Bacteria NONE U Random Total Protein 247 H Ur Random Sodium 20.0 Urine Creatinine 71.69 10/11/21 10/11/21 06:38 06:38 PT 39.9 H INR 3.4 H Anion Gap Estim Creat Clear Calc Estimated GFR Random Glucose Calcium B-Natriuretic Peptide 934 H Urine Color Urine Appearance Urine pH Ur Specific [place] Urine Protein Urine Glucose (UA) Urine Ketones Urine Blood Urine Nitrite Ur Leukocyte Esterase Urine RBC Urine WBC Ur Squamous Epith Cells Ur Renal Epithelial Cell Urine Bacteria U Random Total Protein Ur Random Sodium Urine Creatinine Assessment and Plan (1) CKD (chronic kidney disease) stage 4, GFR 15-29 ml/min: Status: Acute (2) Acute on chronic right-sided congestive heart failure: Status: Acute (3) Chronic atrial fibrillation: Status: Acute Assessment and Plan: hospital d#3 71yo F with HTN, HLD, CAD, biventricular HFrEF s/p AICD, CKD4, mechanical mitral on warfarin, pHTN, hypothyroidism, retinal detachment, bladder CA, amyloidosis, anxiety, depression admitted with CHF exacerbation # acute/chronic HFrEF - negative 875 mL thus far this admission, continue furosemide with caution given renal insufficiency, Nephrology + Cardiology following. exacerbation mostly due to R-sided HF at this point - trend I/O, weights; monitor BNP, BMP, Mg - recent TTE with LVEF 15-20% + decreased RVEF, normally functioning prosthetic mitral valve - continue Isordil, carvedilol # question of ascites - limited US - ?paracentesis but is on anticoagulation for mechanical mitral valve so interruption would be suboptimal # ALIZA/CKD4 - monitor on diuresis, Nephrology following, 24hr CrCl # mechanical mitral valve - continue warfarin, INR therapeutic # hypothyroidism - continue LT4 # HTN - continue Isordil, carvedilol # anemia - continue iron supplementation # dyslipidemia - continue statin # mood disorder - continue fluoxetine # VTE ppx - warfarin Quality Stroke Does the patient have a stroke diagnosis?: No VTE Prior VTE?: No VTE Risk Level:: Medical - moderate - high VTE Device Contraindication: Treatment Not Indicated VTE Drug Contraindication: N/A - Med Ordered
[2021-10-11] MEDS: Warfarin Sodium 2.5 MG TABLET PO (17:35)
[2021-10-11] MEDS: Potassium Chloride ER 20 MEQ TAB.ER.PRT PO (17:35)
--- NOTE | 2021-10-11 18:34 | PM.PNNEP ---
Subjective Subjective Date of Service: 10/11/21 Principal diagnosis: aliza, ckd, CRS, hypervol Interval history: denies dyspnea endorses abd distension but not particularly bothersome Physical Exam Vital Signs: Vital Signs: Last Vital Signs Temp 98.4 F 10/11/21 16:00 Pulse 85 10/11/21 17:35 Resp 19 10/11/21 16:00 BP 121/64 10/11/21 17:35 Pulse Ox 97 10/11/21 16:00 BMI result Body Mass Index 23.7 Const: Other: female chronically ill appearing General: cooperative and no acute distress Nutritional Appearance: thin Orientation/consciousness: oriented to person and patient oriented x3 Limitations: no limitations HENMT: Other: Unremarkable Head: Yes normal to inspection Ears: external ears normal General nose exam: Normal external nose present Mouth: Normal oral and palatal mucosa present and oropharynx normal Throat: Yes posterior oropharynx normal Eyes: General: appearance normal, both eyes and all related structures Neck: Other: supple Neck: Yes normal visual inspection Chest: Chest palpation & inspection: normal inspection of the chest Resp: Auscultation: clear to auscultation bilaterally, no crackles and no wheezes Cardio: Other: Prosthetic heart sounds+ Jugular venous distension: no JVD Palpation: normal PMI Rate: regular rate Rhythm: regular rhythm Heart sounds: S1 normal heart sound present, S2 normal heart sound present and Murmur heart sound present diastolic and systolic GI: Other: soft large ascites, large hepatomegally Palpation (GI): Soft to palpation Auscultation: normal bowel sounds : General: Yes no CVA tenderness Back/Spine/Pelvis: Other: unremarkable Back: no CVA tenderness Skin: General skin exam: no rashes or lesions noted Neuro: General: oriented to person and patient oriented x3 Cranial nerves: Yes CN's II-XII intact bilaterally and Yes Other cranial nerve findings present Motor exam (neuro): 5/5 motor strength present throughout Sensory Exam: No Sensory deficit (Neuro) Extrem: Other: 3+ edema bilaterally General: Yes edema (2+ R>L) Psych: Appearance: grossly normal Mental Status: other Objective Data Labs CBC & Chem 7: 10/09/21 11:16 10/11/21 06:38 Labs: Laboratory Results - last 24 hr 10/10/21 10/11/21 10/11/21 00:00 04:18 06:38 PT INR Sodium 141 Potassium 4.5 Chloride 104 Carbon Dioxide 26 Anion Gap 16 BUN 82 H Creatinine 3.21 H Estim Creat Clear Calc 17.0 Estimated GFR 14 Random Glucose 90 Calcium 8.4 B-Natriuretic Peptide Urine Color YELLOW Urine Appearance CLEAR Urine pH 5.5 Ur Specific [place] 1.020 Urine Protein 2+ H Urine Glucose (UA) NEG Urine Ketones NEG Urine Blood TRACE Urine Nitrite NEG Ur Leukocyte Esterase NEG Urine RBC 0-2 Urine WBC 1-4 Ur Squamous Epith Cells 1+ Ur Renal Epithelial Cell 1+ Urine Bacteria NONE U Random Total Protein 247 H Ur Random Sodium 20.0 Urine Creatinine 71.69 10/11/21 10/11/21 06:38 06:38 PT 39.9 H INR 3.4 H Sodium Potassium Chloride Carbon Dioxide Anion Gap BUN Creatinine Estim Creat Clear Calc Estimated GFR Random Glucose Calcium B-Natriuretic Peptide 934 H Urine Color Urine Appearance Urine pH Ur Specific [place] Urine Protein Urine Glucose (UA) Urine Ketones Urine Blood Urine Nitrite Ur Leukocyte Esterase Urine RBC Urine WBC Ur Squamous Epith Cells Ur Renal Epithelial Cell Urine Bacteria U Random Total Protein Ur Random Sodium Urine Creatinine Procedures Date of Service Date of Service: 10/11/21 Assessment & Plan Assessment and plan (1) CKD (chronic kidney disease) stage 4, GFR 15-29 ml/min: Status: Acute (2) Acute on chronic right-sided congestive heart failure: Status: Acute (3) Chronic atrial fibrillation: Status: Acute Assessment and Plan: 71 Y/O wF readm Hypervol insetting CKD 4, HFrEF, ? Diuretic Resistant 1. ALIZA: C/W CRSyn 2. CKD 4/5: BSL SCe 2.5-3.0; H/O IgA (2018 Bx) and chronic CRSyn 3. Hypervol: d/t BiVent Failure; interestingly doesnot clinically appear to have signific pulm condestion---RHF >>LHF; UOP ? as pirwick not func well 4. HFrEF 5. Asciteis: Cardiac ascitesvs Liver cirrhosis/portal HTN REC:incr diuretics lasix 80 iv q 12 and track renal func;avoid NToxins; she may be a candidate for palliative PD in future, 24 hr urine orederd but given prob w piriwik maynot be accurate and may need wilson x 24 hrs Time Spent With Patient Time: Total time spent is greater than 50% in coordination of care (as documented) at patient's floor/unit and/or counseling patient: Progress Note: Quality Stroke Does the patient have a stroke diagnosis?: No
[2021-10-11] MEDS: Docusate Sodium 100 MG CAPSULE 200 MG PO (20:53)
[2021-10-12] VITALS (10 sets, daily range): BP systolic 104–143; BP diastolic 62–79; PULSE 60–62; RESP 18–20; TEMP 36.3–37.1; O2SAT 94–97
[2021-10-12] MEDS: Omeprazole 20 MG CAPSULE.DR PO (06:31)
[2021-10-12] MEDS: Levothyroxine Sodium 150 MCG TABLET PO (06:32)
[2021-10-12 07:38] LABS: INTERNATIONAL NORM RATIO 3.6 (0.9-1.1); Prothrombin Time 41.5 SEC (9.9-13.0)
[2021-10-12 07:57] LABS: B Type Natriuretic Peptide 1009 pg/mL (<100)
[2021-10-12 07:58] LABS: Anion Gap 14 (12-20); Blood Urea Nitrogen 88 mg/dL (9-16); Calcium 8.6 mg/dL (8.4-10.2); Carbon Dioxide 26 mmol/L (22-29); Chloride 103 mmol/L (96-108); Creatinine Clr Calc Pharmacy 18.3; Estimated Glomerular Filt Rate 16; Glucose Random 88 mg/dL (60-115); Magnesium 2.3 mg/dL (1.6-2.6); Potassium 4.7 mmol/L (3.3-5.1); Sodium 138 mmol/L (135-145)
[2021-10-12] MEDS: Isosorbide Dinitrate 5 MG TABLET PO ×2 (08:53→20:25)
[2021-10-12] MEDS: Furosemide 20 MG/2 ML VIAL 40 MG IVPUSH (08:53)
[2021-10-12] MEDS: Atorvastatin Calcium 40 MG TABLET PO (08:54)
[2021-10-12] MEDS: Ferrous Sulfate 324 MG TABLET.DR PO ×2 (08:54→20:26)
[2021-10-12] MEDS: 0.9 % Sodium Chloride Flush 3 ML SYRINGE IVFLUSH ×3 (08:54→20:26)
[2021-10-12] MEDS: carvediloL 25 MG TABLET PO ×2 (08:54→15:59)
[2021-10-12] MEDS: FLUoxetine HCl 20 MG CAPSULE PO (08:54)
[2021-10-12] MEDS: Artificial Tears 15 ML DROPS 1 DROP EYE-BOTH ×3 (08:54→20:30)
[2021-10-12] MEDS: Calcium Carbonate 750 MG TAB.CHEW PO ×2 (08:57→17:18)
[2021-10-12] MEDS: Acetaminophen 325 MG TABLET 650 MG PO (09:11)
--- NOTE | 2021-10-12 10:06 | PM.PNNEP ---
Subjective Subjective Date of Service: 10/12/21 Principal diagnosis: aliza, ckd, CRS, hypervol Interval history: seen and examined discussed with medical attending and cardiology daugter updated via phone Physical Exam Vital Signs: Vital Signs: Last Vital Signs Temp 97.4 F 10/12/21 07:32 Pulse 60 10/12/21 08:54 Resp 20 10/12/21 07:32 BP 143/76 H 10/12/21 08:54 Pulse Ox 95 10/12/21 07:32 BMI result Body Mass Index 23.7 Const: General: alert and awake HENMT: Head: Yes normocephalic and Yes atraumatic Neck: Neck: Yes supple Resp: Auscultation: diminished lung sounds Cardio: Heart sounds: S1 normal heart sound present and S2 normal heart sound present GI: Palpation (GI): Soft to palpation and nontender Extrem: General: Yes pedal edema Objective Data Labs CBC & Chem 7: 10/09/21 11:16 10/12/21 06:51 Labs: Laboratory Results - last 24 hr 10/12/21 10/12/21 10/12/21 06:51 06:51 06:51 PT 41.5 H INR 3.6 H Sodium 138 Potassium 4.7 Chloride 103 Carbon Dioxide 26 Anion Gap 14 BUN 88 H Creatinine 2.98 H Estim Creat Clear Calc 18.3 Estimated GFR 16 Random Glucose 88 Calcium 8.6 Magnesium 2.3 B-Natriuretic Peptide 1009 H Procedures Date of Service Date of Service: 10/12/21 Assessment & Plan Assessment and plan (1) ALIZA (acute kidney injury): Status: Acute (2) CHF (congestive heart failure): Status: Acute (3) CKD (chronic kidney disease) stage 4, GFR 15-29 ml/min: Status: Acute Assessment and Plan: ALIZA c/w CRS 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
--- NOTE | 2021-10-12 10:43 | P.PNCA_ITS ---
Subjective Subjective Date of Service: 10/12/21 Principal diagnosis: carmen, ckd, CRS, hypervol Interval history: Feels about the same. Review of Systems Review of Systems Yes all other systems are reviewed and are negative Cardiovascular: Reports as per HPI, Reports no additional cardiovascular complaints, Denies acrocyanosis, Denies cool extremities, Denies painful fingertips, Denies chest pain, Denies chest pain at rest, Denies diaphoresis, Denies syncope, Denies irregular heart rhythm, Denies claudication, Reports leg edema, Denies lightheadedness, Denies palpitations and Reports dyspnea Respiratory: Reports dyspnea Denies syncope Endocrine: Denies palpitations Physical Exam Vital Signs: Last Vital Signs Temp 97.4 F 10/12/21 07:32 Pulse 60 10/12/21 08:54 Resp 20 10/12/21 07:32 BP 143/76 H 10/12/21 08:54 Pulse Ox 95 10/12/21 07:32 BMI result Body Mass Index 23.7 Const General: cooperative and no acute distress HENIN Other: Unremarkable Neck Neck: Yes normal visual inspection Chest Chest palpation & inspection: normal inspection of the chest Resp Auscultation: clear to auscultation bilaterally, no crackles and no wheezes Cardio Other: Prosthetic heart sounds+ Jugular venous distension: no JVD Palpation: normal PMI Heart sounds: Murmur heart sound present diastolic and systolic GI Palpation (GI): Soft to palpation Back/Spine/Pelvis Other: unremarkable Skin General skin exam: no rashes or lesions noted Neuro Cranial nerves: Yes Other cranial nerve findings present Extrem General: Yes edema (2+ R>L) Psych Mental Status: other Objective Labs and Meds Result diagrams: 10/09/21 11:16 10/12/21 06:51 Lab results: Laboratory Results - last 24 hr 10/12/21 10/12/21 10/12/21 06:51 06:51 06:51 PT 41.5 H INR 3.6 H Sodium 138 Potassium 4.7 Chloride 103 Carbon Dioxide 26 Anion Gap 14 BUN 88 H Creatinine 2.98 H Estim Creat Clear Calc 18.3 Estimated GFR 16 Random Glucose 88 Calcium 8.6 Magnesium 2.3 B-Natriuretic Peptide 1009 H Imaging Radiologist's impression: Impressions Abdomen Ultrasound 10/11/21 18:10 IMPRESSION: There is moderate ascites present. Progress Note: A&P Assessment and plan (1) Acute on chronic right-sided congestive heart failure: Status: Acute (2) Mechanical heart valve present: Status: Acute (3) Chronic atrial fibrillation: Status: Acute Assessment and Plan: Labs are reviewed. Renal function seems to be stable. In the recent echocardiogram, severely dilated LV size reported with LVEF of 15-20%. There was also diminished RV function. Normally function mechanical mitral valve. Moderate to severe tricuspid regurgitation, elevation right atrial pressure as well as pulmonary hypertension. Overall, clinically she is in a right heart failure based on abdominal distention and leg swelling. She does not have much of pulmonary congestion on examination. Even the chest x-rays not showing any pulmonary vascular congestion. May continue with IV diuretics and agree with renal suggestions about increasing it slightly. Fall Risk Details Current Medications: Current Medications Acetaminophen (Acetaminophen 325 Mg Tablet) 650 mg PO Q6H PRN PRN Reason: Pain, Mild (Pain Scale 1-3) Last Admin: 10/12/21 09:11 Dose: 650 mg Documented by: Artificial Tears (Artificial Tears 15 Ml Drops) 1 drop EYE-BOTH TID [facility] Last Admin: 10/12/21 08:54 Dose: 1 drop Documented by: Atorvastatin Calcium (Atorvastatin Calcium 40 Mg Tablet) 40 mg PO DAILY [facility] Last Admin: 10/12/21 08:54 Dose: 40 mg Documented by: Calcium Carbonate (Calcium Carbonate 750 Mg Tab.Chew) 750 mg PO Q6H PRN PRN Reason: Heartburn Last Admin: 10/12/21 08:57 Dose: 750 mg Documented by: Carvedilol (Carvedilol 25 Mg Tablet) 25 mg PO BIDWM [facility]; Protocol Last Admin: 10/12/21 08:54 Dose: 25 mg Documented by: Docusate Sodium (Docusate Sodium 100 Mg Capsule) 200 mg PO BEDTIME [facility] Last Admin: 10/11/21 20:53 Dose: 200 mg Documented by: Ferrous Sulfate (Ferrous Sulfate 324 Mg Tablet.Dr) 324 mg PO BID [facility] Last Admin: 10/12/21 08:54 Dose: 324 mg Documented by: Fluoxetine HCl (Fluoxetine Hcl 20 Mg Capsule) 20 mg PO DAILY [facility] Last Admin: 10/12/21 08:54 Dose: 20 mg Documented by: Furosemide (Furosemide 20 Mg/2 Ml Vial) 40 mg IVPUSH Q12H [facility]; Protocol Last Admin: 10/12/21 08:53 Dose: 40 mg Documented by: Isosorbide Dinitrate (Isosorbide Dinitrate 5 Mg Tablet) 5 mg PO BID [facility]; Protocol Last Admin: 10/12/21 08:53 Dose: 5 mg Documented by: Levothyroxine Sodium (Levothyroxine Sodium 150 Mcg Tablet) 150 mcg PO DAILY@0600 [facility] Last Admin: 10/12/21 06:32 Dose: 150 mcg Documented by: Omeprazole (Omeprazole 20 Mg Capsule.Dr) 20 mg PO DAILY@0630 [facility] Last Admin: 10/12/21 06:31 Dose: 20 mg Documented by: Ondansetron HCl (Ondansetron Hcl 4 Mg/2 Ml Vial) 4 mg IVPUSH Q8H PRN PRN Reason: Nausea and Vomiting Pharmacy Consult (Consult Rx Perform Med Rec) 1 each MISCELLANE ONCE PRN PRN Reason: Consult order Potassium Chloride (Potassium Chloride Er 20 Meq Tab.Er.Prt) 20 meq PO Q48H [facility] Last Admin: 10/11/21 17:35 Dose: 20 meq Documented by: Sodium Chloride (0.9 % Sodium Chloride Flush 3 Ml Syringe) 3 ml IVFLUSH QSHIFT [facility] Last Admin: 10/12/21 08:54 Dose: 3 ml Documented by: Trazodone HCl (Trazodone Hcl 50 Mg Tablet) 50 mg PO DAILY PRN PRN Reason: for insomnia Warfarin Sodium (Warfarin Sodium 2.5 Mg Tablet) 2.5 mg PO DAILY@1800 [facility] Last Admin: 10/11/21 17:35 Dose: 2.5 mg Documented by: Time Spent With Patient Time: Total time spent is greater than 50% in coordination of care (as documented) at patient's floor/unit and/or counseling patient: Time with patient: less than 15 minutes Progress Note: Quality Stroke Does the patient have a stroke diagnosis?: No Procedures Date of Service Date of Service: 10/12/21
--- NOTE | 2021-10-12 12:19 | P.PNIM_ITS ---
Subjective Subjective Date of Service: 10/12/21 Interval History: Breathing comfortably No chest pain Abd distended but not bothersome Refused 10pm furosemide dose Review of Systems Review of Systems: Yes all other systems are reviewed and are negative Physical Exam Vital Signs: Vital Signs: Last Vital Signs Temp 98.8 F 10/12/21 11:03 Pulse 60 10/12/21 11:03 Resp 18 10/12/21 11:03 BP 124/74 10/12/21 11:03 Pulse Ox 97 10/12/21 11:03 BMI result Body Mass Index 23.7 Gen: in no acute distress HEENT: sclera anicteric, moist mucus membranes, prosthetic L eye Neck: supple Lungs: diminished at R base Heart: regular rate and rhythm, mechanical S1, no murmurs Abd: soft, non-tender, distended, ?fluid wave Ext: 2+ pitting edema BLEs Skin: warm/well-perfused Neuro: alert and oriented x3, no focal findings Psych: appropriate affect Objective Data Active Medications Acetaminophen (Acetaminophen 325 Mg Tablet) 650 mg PO Q6H PRN PRN Reason: Pain, Mild (Pain Scale 1-3) Last Admin: 10/12/21 09:11 Dose: 650 mg Documented by: DMITRI Artificial Tears (Artificial Tears 15 Ml Drops) 1 drop EYE-BOTH TID [facility] Last Admin: 10/12/21 08:54 Dose: 1 drop Documented by: DMITRI Atorvastatin Calcium (Atorvastatin Calcium 40 Mg Tablet) 40 mg PO DAILY [facility] Last Admin: 10/12/21 08:54 Dose: 40 mg Documented by: DMITRI Calcium Carbonate (Calcium Carbonate 750 Mg Tab.Chew) 750 mg PO Q6H PRN PRN Reason: Heartburn Last Admin: 10/12/21 08:57 Dose: 750 mg Documented by: DMITRI Carvedilol (Carvedilol 25 Mg Tablet) 25 mg PO BIDWM [facility]; Protocol Last Admin: 10/12/21 08:54 Dose: 25 mg Documented by: DMITRI Docusate Sodium (Docusate Sodium 100 Mg Capsule) 200 mg PO BEDTIME [facility] Last Admin: 10/11/21 20:53 Dose: 200 mg Documented by: ANTON Ferrous Sulfate (Ferrous Sulfate 324 Mg Tablet.) 324 mg PO BID [facility] Last Admin: 10/12/21 08:54 Dose: 324 mg Documented by: DMITRI Fluoxetine HCl (Fluoxetine Hcl 20 Mg Capsule) 20 mg PO DAILY [facility] Last Admin: 10/12/21 08:54 Dose: 20 mg Documented by: DMITRI Furosemide (Furosemide 20 Mg/2 Ml Vial) 40 mg IVPUSH Q12H [facility]; Protocol Last Admin: 10/12/21 08:53 Dose: 40 mg Documented by: DMITRI Isosorbide Dinitrate (Isosorbide Dinitrate 5 Mg Tablet) 5 mg PO BID [facility]; Protocol Last Admin: 10/12/21 08:53 Dose: 5 mg Documented by: DMITRI Levothyroxine Sodium (Levothyroxine Sodium 150 Mcg Tablet) 150 mcg PO DAILY@0600 [facility] Last Admin: 10/12/21 06:32 Dose: 150 mcg Documented by: ANTON Omeprazole (Omeprazole 20 Mg Capsule.Dr) 20 mg PO DAILY@0630 [facility] Last Admin: 10/12/21 06:31 Dose: 20 mg Documented by: ANTON Ondansetron HCl (Ondansetron Hcl 4 Mg/2 Ml Vial) 4 mg IVPUSH Q8H PRN PRN Reason: Nausea and Vomiting Pharmacy Consult (Consult Rx Perform Med Rec) 1 each MISCELLANE ONCE PRN PRN Reason: Consult order Potassium Chloride (Potassium Chloride Er 20 Meq Tab.Er.Prt) 20 meq PO Q48H [facility] Last Admin: 10/11/21 17:35 Dose: 20 meq Documented by: RUTH Sodium Chloride (0.9 % Sodium Chloride Flush 3 Ml Syringe) 3 ml IVFLUSH QSHIFT [facility] Last Admin: 10/12/21 08:54 Dose: 3 ml Documented by: DMITRI Trazodone HCl (Trazodone Hcl 50 Mg Tablet) 50 mg PO DAILY PRN PRN Reason: for insomnia Warfarin Sodium (Warfarin Sodium 2.5 Mg Tablet) 2.5 mg PO DAILY@1800 [facility] Last Admin: 10/11/21 17:35 Dose: 2.5 mg Documented by: RUTH Labs CBC & Chem 7: 10/09/21 11:16 10/12/21 06:51 Labs: Laboratory Results - last 24 hr 10/12/21 10/12/21 10/12/21 06:51 06:51 06:51 PT 41.5 H INR 3.6 H Anion Gap 14 Estim Creat Clear Calc 18.3 Estimated GFR 16 Random Glucose 88 Calcium 8.6 Magnesium 2.3 B-Natriuretic Peptide 1009 H Assessment and Plan (1) CKD (chronic kidney disease) stage 4, GFR 15-29 ml/min: Status: Acute (2) Acute on chronic right-sided congestive heart failure: Status: Acute (3) Chronic atrial fibrillation: Status: Acute Assessment and Plan: hospital d#4 71yo F with HTN, HLD, CAD, biventricular HFrEF s/p AICD, CKD4, mechanical mitral on warfarin, pHTN, hypothyroidism, retinal detachment, bladder CA, amyloidosis, anxiety, depression admitted with CHF exacerbation # acute/chronic HFrEF - negative 950 mL thus far this admission, continue furosemide - increase dose and change time of administration to better accomodate pt; Nephrology + Cardiology following. exacerbation mostly due to R-sided HF at this point - trend I/O, weights; monitor BNP, BMP, Mg - recent TTE with LVEF 15-20% + decreased RVEF, normally functioning prosthetic mitral valve - continue Isordil, carvedilol # ascites - at this point, would try to manage with diuresis- discussed with Cardiology and Nephrology and they agree # ALIZA/CKD4 - monitor on diuresis, Nephrology following, 24hr CrCl. today's SCr slightly improved # mechanical mitral valve - continue warfarin, INR therapeutic # hypothyroidism - continue LT4- increased dose for under-suppressed TSH- recheck TSH in 4-6 wk # HTN - continue Isordil, carvedilol # chronic anemia - continue iron supplementation # dyslipidemia - continue statin # mood disorder - continue fluoxetine # VTE ppx - warfarin Quality Stroke Does the patient have a stroke diagnosis?: No VTE Prior VTE?: No VTE Risk Level:: Medical - moderate - high VTE Device Contraindication: Treatment Not Indicated VTE Drug Contraindication: N/A - Med Ordered
[2021-10-12] MEDS: Furosemide 20 MG/2 ML VIAL 60 MG IVPUSH (17:18)
[2021-10-12] MEDS: Warfarin Sodium 2.5 MG TABLET PO (17:18)
[2021-10-12] MEDS: Docusate Sodium 100 MG CAPSULE 200 MG PO (20:26)
[2021-10-13] VITALS (11 sets, daily range): BP systolic 98–110; BP diastolic 51–67; PULSE 60–62; RESP 18; TEMP 36.2–37.3; O2SAT 94–98
[2021-10-13] MEDS: Omeprazole 20 MG CAPSULE.DR PO (04:52)
[2021-10-13] MEDS: Levothyroxine Sodium 150 MCG TABLET PO (04:53)
[2021-10-13 07:22] LABS: INTERNATIONAL NORM RATIO 3.6 (0.9-1.1); Prothrombin Time 42.4 SEC (9.9-13.0)
[2021-10-13 07:29] LABS: B Type Natriuretic Peptide 1335 pg/mL (<100)
[2021-10-13 07:31] LABS: Anion Gap 16 (12-20); Blood Urea Nitrogen 96 mg/dL (9-16); Calcium 8.8 mg/dL (8.4-10.2); Carbon Dioxide 27 mmol/L (22-29); Chloride 103 mmol/L (96-108); Creatinine Clr Calc Pharmacy 18.7; Estimated Glomerular Filt Rate 16; Glucose Random 105 mg/dL (60-115); Magnesium 2.4 mg/dL (1.6-2.6); Potassium 4.6 mmol/L (3.3-5.1); Sodium 141 mmol/L (135-145)
[2021-10-13] MEDS: Atorvastatin Calcium 40 MG TABLET PO (09:11)
[2021-10-13] MEDS: Furosemide 20 MG/2 ML VIAL 60 MG IVPUSH ×2 (09:11→18:39)
[2021-10-13] MEDS: Isosorbide Dinitrate 5 MG TABLET PO ×2 (09:12→20:35)
[2021-10-13] MEDS: Ferrous Sulfate 324 MG TABLET.DR PO ×2 (09:12→20:35)
[2021-10-13] MEDS: carvediloL 25 MG TABLET PO ×2 (09:12→16:11)
[2021-10-13] MEDS: FLUoxetine HCl 20 MG CAPSULE PO (09:12)
[2021-10-13] MEDS: 0.9 % Sodium Chloride Flush 3 ML SYRINGE IVFLUSH ×3 (09:13→20:49)
[2021-10-13] MEDS: Artificial Tears 15 ML DROPS 1 DROP EYE-BOTH ×3 (09:15→20:42)
--- NOTE | 2021-10-13 10:02 | PM.PNNEP ---
Subjective Subjective Date of Service: 10/13/21 Principal diagnosis: aliza, ckd, CRS, hypervol Interval history: seen and examined complains of SOB and edema no other complaints Physical Exam Vital Signs: Vital Signs: Last Vital Signs Temp 97.1 F 10/13/21 07:37 Pulse 60 10/13/21 09:12 Resp 18 10/13/21 07:37 BP 107/67 10/13/21 09:12 Pulse Ox 98 10/13/21 07:37 BMI result Body Mass Index 23.7 Const: General: alert and awake HENMT: Head: Yes normocephalic and Yes atraumatic Neck: Neck: Yes supple Resp: Auscultation: diminished lung sounds Cardio: Heart sounds: S1 normal heart sound present and S2 normal heart sound present GI: Palpation (GI): Soft to palpation and nontender Extrem: General: Yes pedal edema Objective Data Labs CBC & Chem 7: 10/09/21 11:16 10/13/21 06:42 Labs: Laboratory Results - last 24 hr 10/13/21 10/13/21 10/13/21 06:42 06:42 06:42 PT 42.4 H INR 3.6 H Sodium 141 Potassium 4.6 Chloride 103 Carbon Dioxide 27 Anion Gap 16 BUN 96 H Creatinine 2.92 H Estim Creat Clear Calc 18.7 Estimated GFR 16 Random Glucose 105 Calcium 8.8 Magnesium 2.4 B-Natriuretic Peptide 1335 H Procedures Date of Service Date of Service: 10/13/21 Assessment & Plan Assessment and plan (1) ALIZA (acute kidney injury): Status: Acute (2) CHF (congestive heart failure): Status: Acute (3) CKD (chronic kidney disease) stage 4, GFR 15-29 ml/min: Status: Acute Assessment and Plan: stable Scr ALIZA c/w CRS 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
--- NOTE | 2021-10-13 10:31 | P.PNCA_ITS ---
Subjective Subjective Date of Service: 10/13/21 Principal diagnosis: carmen, ckd, CRS, hypervol Interval history: Mostly feels about the same. No new complaints. Review of Systems Review of Systems Yes all other systems are reviewed and are negative Cardiovascular: Reports as per HPI, Reports no additional cardiovascular complaints, Denies acrocyanosis, Denies cool extremities, Denies painful fingertips, Denies chest pain, Denies chest pain at rest, Denies diaphoresis, Denies syncope, Denies irregular heart rhythm, Denies claudication, Reports leg edema, Denies lightheadedness, Denies palpitations and Reports dyspnea Respiratory: Reports dyspnea Denies syncope Endocrine: Denies palpitations Physical Exam Vital Signs: Last Vital Signs Temp 97.1 F 10/13/21 07:37 Pulse 60 10/13/21 09:12 Resp 18 10/13/21 07:37 BP 107/67 10/13/21 09:12 Pulse Ox 98 10/13/21 07:37 BMI result Body Mass Index 23.7 Const General: cooperative and no acute distress [facility] Other: Unremarkable Neck Neck: Yes normal visual inspection Chest Chest palpation & inspection: normal inspection of the chest Resp Auscultation: clear to auscultation bilaterally, no crackles and no wheezes Cardio Other: Prosthetic heart sounds+ Jugular venous distension: no JVD Palpation: normal PMI Heart sounds: Murmur heart sound present diastolic and systolic GI Other: distended, palpable liver, ascites Palpation (GI): Soft to palpation Back/Spine/Pelvis Other: unremarkable Skin General skin exam: no rashes or lesions noted Neuro Cranial nerves: Yes Other cranial nerve findings present Extrem General: Yes edema (2+ R>L) Psych Mental Status: other Objective Labs and Meds Result diagrams: 10/09/21 11:16 10/13/21 06:42 Lab results: Laboratory Results - last 24 hr 10/13/21 10/13/21 10/13/21 06:42 06:42 06:42 PT 42.4 H INR 3.6 H Sodium 141 Potassium 4.6 Chloride 103 Carbon Dioxide 27 Anion Gap 16 BUN 96 H Creatinine 2.92 H Estim Creat Clear Calc 18.7 Estimated GFR 16 Random Glucose 105 Calcium 8.8 Magnesium 2.4 B-Natriuretic Peptide 1335 H Progress Note: A&P Assessment and plan (1) Acute on chronic right-sided congestive heart failure: Status: Acute (2) Mechanical heart valve present: Status: Acute (3) Chronic atrial fibrillation: Status: Acute Assessment and Plan: Labs are reviewed. BUN going up but Cr improved from time of admission. In the recent echocardiogram, severely dilated LV size reported with LVEF of 15-20%. There was also diminished RV function. Normally functioning mechanical mitral valve. Moderate to severe tricuspid regurgitation, elevation right atrial pressure as well as pulmonary hypertension. Overall, clinically she is in a right heart failure based on abdominal distention, hepatomegaly and leg swelling. She does not have much of pulmonary congestion on examination. Even the chest x-rays not showing any pulmonary vascular congestion. May continue with IV diuretics. Renal comments noted. Fall Risk Details Current Medications: Current Medications Acetaminophen (Acetaminophen 325 Mg Tablet) 650 mg PO Q6H PRN PRN Reason: Pain, Mild (Pain Scale 1-3) Last Admin: 10/12/21 09:11 Dose: 650 mg Documented by: Artificial Tears (Artificial Tears 15 Ml Drops) 1 drop EYE-BOTH TID [facility] Last Admin: 10/13/21 09:15 Dose: 1 drop Documented by: Atorvastatin Calcium (Atorvastatin Calcium 40 Mg Tablet) 40 mg PO DAILY [facility] Last Admin: 10/13/21 09:11 Dose: 40 mg Documented by: Calcium Carbonate (Calcium Carbonate 750 Mg Tab.Chew) 750 mg PO Q6H PRN PRN Reason: Heartburn Last Admin: 10/12/21 17:18 Dose: 750 mg Documented by: Carvedilol (Carvedilol 25 Mg Tablet) 25 mg PO BIDWM [facility]; Protocol Last Admin: 10/13/21 09:12 Dose: 25 mg Documented by: Docusate Sodium (Docusate Sodium 100 Mg Capsule) 200 mg PO BEDTIME [facility] Last Admin: 10/12/21 20:26 Dose: 200 mg Documented by: Ferrous Sulfate (Ferrous Sulfate 324 Mg Tablet.Dr) 324 mg PO BID [facility] Last Admin: 10/13/21 09:12 Dose: 324 mg Documented by: Fluoxetine HCl (Fluoxetine Hcl 20 Mg Capsule) 20 mg PO DAILY [facility] Last Admin: 10/13/21 09:12 Dose: 20 mg Documented by: Furosemide (Furosemide 20 Mg/2 Ml Vial) 60 mg IVPUSH BID@0900,1800 [facility]; Protocol Last Admin: 10/13/21 09:11 Dose: 60 mg Documented by: Isosorbide Dinitrate (Isosorbide Dinitrate 5 Mg Tablet) 5 mg PO BID [facility]; Protocol Last Admin: 10/13/21 09:12 Dose: 5 mg Documented by: Levothyroxine Sodium (Levothyroxine Sodium 150 Mcg Tablet) 150 mcg PO DAILY@0600 [facility] Last Admin: 10/13/21 04:53 Dose: 150 mcg Documented by: Omeprazole (Omeprazole 20 Mg Capsule.Dr) 20 mg PO DAILY@0630 [facility] Last Admin: 10/13/21 04:52 Dose: 20 mg Documented by: Ondansetron HCl (Ondansetron Hcl 4 Mg/2 Ml Vial) 4 mg IVPUSH Q8H PRN PRN Reason: Nausea and Vomiting Pharmacy Consult (Consult Rx Perform Med Rec) 1 each MISCELLANE ONCE PRN PRN Reason: Consult order Potassium Chloride (Potassium Chloride Er 20 Meq Tab.Er.Prt) 20 meq PO Q48H [facility] Last Admin: 10/11/21 17:35 Dose: 20 meq Documented by: Sodium Chloride (0.9 % Sodium Chloride Flush 3 Ml Syringe) 3 ml IVFLUSH QSHIFT [facility] Last Admin: 10/13/21 09:13 Dose: 3 ml Documented by: Trazodone HCl (Trazodone Hcl 50 Mg Tablet) 50 mg PO DAILY PRN PRN Reason: for insomnia Warfarin Sodium (Warfarin Sodium 2.5 Mg Tablet) 2.5 mg PO DAILY@1800 [facility] Last Admin: 10/12/21 17:18 Dose: 2.5 mg Documented by: Time Spent With Patient Time: Total time spent is greater than 50% in coordination of care (as documented) at patient's floor/unit and/or counseling patient: Time with patient: less than 15 minutes Progress Note: Quality Stroke Does the patient have a stroke diagnosis?: No Procedures Date of Service Date of Service: 10/13/21
[2021-10-13] MEDS: Pramoxine HCl 1 % Rectal Foam 15 GM 1 APPL PR ×2 (11:51→20:42)
[2021-10-13] MEDS: Aspirin 81 MG TAB.CHEW PO (11:51)
--- NOTE | 2021-10-13 12:32 | HO.PM.IMPN ---
Subjective Subjective Date of Service: 10/13/21 Interval History: Feels the same. No new complaints. Abd distended but not bothersome. Review of Systems Review of Systems: Yes all other systems are reviewed and are negative Physical Exam Vital Signs: Vital Signs: Last Vital Signs Temp 98.3 F 10/13/21 11:26 Pulse 60 10/13/21 11:26 Resp 18 10/13/21 11:26 BP 102/62 10/13/21 11:26 Pulse Ox 97 10/13/21 11:26 BMI result Body Mass Index 23.7 Gen: in no acute distress HEENT: sclera anicteric, moist mucus membranes, prosthetic L eye Neck: supple Lungs: diminished at R base Heart: regular rate and rhythm, mechanical S1, no murmurs Abd: soft, non-tender, distended, ?fluid wave Ext: 2+ pitting edema BLEs Skin: warm/well-perfused Neuro: alert and oriented x3, no focal findings Psych: appropriate affect Objective Data Active Medications Acetaminophen (Acetaminophen 325 Mg Tablet) 650 mg PO Q6H PRN PRN Reason: Pain, Mild (Pain Scale 1-3) Last Admin: 10/12/21 09:11 Dose: 650 mg Documented by: DMITRI Artificial Tears (Artificial Tears 15 Ml Drops) 1 drop EYE-BOTH TID [facility] Last Admin: 10/13/21 09:15 Dose: 1 drop Documented by: RM Aspirin (Aspirin 81 Mg Tab.Chew) 81 mg PO DAILY [facility] Last Admin: 10/13/21 11:51 Dose: 81 mg Documented by: RM Atorvastatin Calcium (Atorvastatin Calcium 40 Mg Tablet) 40 mg PO DAILY [facility] Last Admin: 10/13/21 09:11 Dose: 40 mg Documented by: RM Calcium Carbonate (Calcium Carbonate 750 Mg Tab.Chew) 750 mg PO Q6H PRN PRN Reason: Heartburn Last Admin: 10/12/21 17:18 Dose: 750 mg Documented by: DMITRI Carvedilol (Carvedilol 25 Mg Tablet) 25 mg PO BIDWM [facility]; Protocol Last Admin: 10/13/21 09:12 Dose: 25 mg Documented by: RM Docusate Sodium (Docusate Sodium 100 Mg Capsule) 200 mg PO BEDTIME [facility] Last Admin: 10/12/21 20:26 Dose: 200 mg Documented by: CHRISTOPHER Ferrous Sulfate (Ferrous Sulfate 324 Mg Tablet.) 324 mg PO BID [facility] Last Admin: 10/13/21 09:12 Dose: 324 mg Documented by: RM Fluoxetine HCl (Fluoxetine Hcl 20 Mg Capsule) 20 mg PO DAILY [facility] Last Admin: 10/13/21 09:12 Dose: 20 mg Documented by: RM Furosemide (Furosemide 20 Mg/2 Ml Vial) 60 mg IVPUSH BID@0900,1800 [facility]; Protocol Last Admin: 10/13/21 09:11 Dose: 60 mg Documented by: RM Isosorbide Dinitrate (Isosorbide Dinitrate 5 Mg Tablet) 5 mg PO BID [facility]; Protocol Last Admin: 10/13/21 09:12 Dose: 5 mg Documented by: RM Levothyroxine Sodium (Levothyroxine Sodium 150 Mcg Tablet) 150 mcg PO DAILY@0600 [facility] Last Admin: 10/13/21 04:53 Dose: 150 mcg Documented by: CHRISTOPHER Omeprazole (Omeprazole 20 Mg Capsule.) 20 mg PO DAILY@0630 [facility] Last Admin: 10/13/21 04:52 Dose: 20 mg Documented by: CHRISTOPHER Ondansetron HCl (Ondansetron Hcl 4 Mg/2 Ml Vial) 4 mg IVPUSH Q8H PRN PRN Reason: Nausea and Vomiting Pharmacy Consult (Consult Rx Perform Med Rec) 1 each MISCELLANE ONCE PRN PRN Reason: Consult order Potassium Chloride (Potassium Chloride Er 20 Meq Tab.Er.Prt) 20 meq PO Q48H [facility] Last Admin: 10/11/21 17:35 Dose: 20 meq Documented by: RUTH Pramoxine HCl (Pramoxine Hcl 1 % Rectal Foam 15 Gm) 1 appl [place] BID [facility] Last Admin: 10/13/21 11:51 Dose: 1 appl Documented by: RM Sodium Chloride (0.9 % Sodium Chloride Flush 3 Ml Syringe) 3 ml IVFLUSH QSHIFT [facility] Last Admin: 10/13/21 09:13 Dose: 3 ml Documented by: RM Trazodone HCl (Trazodone Hcl 50 Mg Tablet) 50 mg PO DAILY PRN PRN Reason: for insomnia Warfarin Sodium (Warfarin Sodium 2.5 Mg Tablet) 2.5 mg PO DAILY@1800 [facility] Last Admin: 10/12/21 17:18 Dose: 2.5 mg Documented by: DMITRI Labs CBC & Chem 7: 10/09/21 11:16 10/13/21 06:42 Labs: Laboratory Results - last 24 hr 10/13/21 10/13/21 10/13/21 06:42 06:42 06:42 PT 42.4 H INR 3.6 H Anion Gap 16 Estim Creat Clear Calc 18.7 Estimated GFR 16 Random Glucose 105 Calcium 8.8 Magnesium 2.4 B-Natriuretic Peptide 1335 H Assessment and Plan (1) CKD (chronic kidney disease) stage 4, GFR 15-29 ml/min: Status: Acute (2) Acute on chronic right-sided congestive heart failure: Status: Acute (3) Chronic atrial fibrillation: Status: Acute Assessment and Plan: hospital d#5 71yo F with HTN, HLD, CAD, biventricular HFrEF s/p AICD, CKD4, mechanical mitral on warfarin, pHTN, hypothyroidism, retinal detachment, bladder CA, amyloidosis, anxiety, depression admitted with CHF exacerbation # acute/chronic HFrEF - negative 1670 mL thus far this admission, continue furosemide at increased dose of 60mg bid; Nephrology + Cardiology following. exacerbation mostly due to R-sided HF - trend I/O, weights; monitor BNP, BMP, Mg - recent TTE with LVEF 15-20% + decreased RVEF, normally functioning prosthetic mitral valve - continue Isordil, carvedilol # ascites - manage with diuresis- discussed with Cardiology and Nephrology and they agree # ALIZA/CKD4 due to AA amyloidosis + cardiorenal syndrome - monitor on diuresis, Nephrology following, 24hr CrCl. SCr stable # mechanical mitral valve - continue warfarin, INR therapeutic - add ASA per Cardiology # hypothyroidism - continue LT4- increased dose for under-suppressed TSH- recheck TSH in 4-6 wk # HTN - continue Isordil, carvedilol # chronic anemia - continue iron supplementation # dyslipidemia - continue statin # mood disorder - continue fluoxetine # VTE ppx - warfarin # dispo - PT consult Quality Stroke Does the patient have a stroke diagnosis?: No VTE Prior VTE?: No VTE Risk Level:: Medical - moderate - high VTE Device Contraindication: Treatment Not Indicated VTE Drug Contraindication: N/A - Med Ordered
[2021-10-13] MEDS: Warfarin Sodium 2.5 MG TABLET PO (18:39)
[2021-10-13] MEDS: Docusate Sodium 100 MG CAPSULE 200 MG PO (20:34)
[2021-10-14] VITALS (7 sets, daily range): BP systolic 98–131; BP diastolic 50–72; PULSE 60–64; RESP 18; TEMP 36.8–36.9; O2SAT 95–96
[2021-10-14] MEDS: Calcium Carbonate 750 MG TAB.CHEW PO (05:58)
[2021-10-14] MEDS: Levothyroxine Sodium 150 MCG TABLET PO (05:58)
[2021-10-14] MEDS: Omeprazole 20 MG CAPSULE.DR PO (05:58)
[2021-10-14 06:25] LABS: Anion Gap 15 (12-20); Blood Urea Nitrogen 106 mg/dL (9-16); Calcium 8.7 mg/dL (8.4-10.2); Carbon Dioxide 28 mmol/L (22-29); Chloride 104 mmol/L (96-108); Creatinine Clr Calc Pharmacy 18.4; Estimated Glomerular Filt Rate 16; Glucose Random 92 mg/dL (60-115); Potassium 4.5 mmol/L (3.3-5.1); Sodium 142 mmol/L (135-145)
[2021-10-14 06:27] LABS: B Type Natriuretic Peptide 1287 pg/mL (<100)
[2021-10-14 06:35] LABS: INTERNATIONAL NORM RATIO 3.7 (0.9-1.1); Prothrombin Time 42.9 SEC (9.9-13.0)
--- NOTE | 2021-10-14 08:33 | PM.CNGS ---
History of Present Illness Consult details Consult date: 10/14/21 Narrative: 71-year-old female admitted 10/09/2021 for shortness of breath, referred to me because of problems with her hemorrhoids. She is currently being managed for exacerbation of her CHF. She also has multiple medical problems including chronic atrial fibrillation, and stage 4 chronic kidney disease. She describes seeing her hemorrhoids outside her anus on and off for over a year now. She that once in a while, the would get swollen and tender. She also says that she would see amounts of bright blood on wiping periodically. She states that it is often uncomfortable for her to be sitting down for long periods of time. She states that she was actually supposed to see me in the office sometime this month for her hemorrhoid issues. Review of Systems Constitutional: Constitutional: Denies chills and Denies fever(s) Cardiovascular: Cardiovascular: Denies chest pain, Reports dyspnea and Reports dyspnea on exertion Respiratory: Respiratory: Denies cough, Reports dyspnea and Reports dyspnea on exertion Gastrointestinal: Gastrointestinal: Reports hematochezia and Denies change in bowel habits Genitourinary: Genitourinary: Denies hematuria Musculoskeletal: Musculoskeletal: Denies back pain and Denies limited range of motion Neurologic: Denies focal weakness and Denies convulsions Psychiatric: Psychiatric: Denies depression and Denies mood swings [facility] Past Medical History Medical History (Updated 10/14/21 @ 08:38 by Rigo Rowley MD) Acute on chronic heart failure with reduced ejection fraction and diastolic dysfunction Amyloidosis Amyloidosis Anemia Anemia Anxiety and depression Arthritis Bladder hypertonicity Chronic atrial fibrillation Chronic HFrEF (heart failure with reduced ejection fraction) Chronic kidney disease (CKD) stage G4/A1, severely decreased glomerular filtration rate (GFR) between 15-29 mL/min/1.73 square meter and albuminuria creatinine ratio less than 30 mg/g CKD (chronic kidney disease) stage 4, GFR 15-29 ml/min Detached retina Gout Heart disease Hemorrhoids with complication History of breast cancer History of breast cancer HTN (hypertension) Hypercholesterolemia Hypothyroid ICD (implantable cardioverter-defibrillator) in place Ischemic cardiomyopathy Kidney disease Nephrolithiasis Osteoarthritis Overweight (BMI 25.0-29.9) Pulmonary hypertension Thumb tendonitis Tricuspid regurgitation Urinary incontinence Family History Family History Mother Diabetes Father Past heart attack Diabetes Sister Parkinsons disease Surgical History Surgical History H/O abdominal hysterectomy H/O mitral valve replacement H/O mitral valve replacement with mechanical valve History of bunionectomy History of cataract surgery History of colonoscopy History of left inguinal hernia repair History of sleeve gastrectomy Social History Social History Household Members: Family Household Members Other:: daughter Housing: House Do you presently have visiting nurse or other home services: Yes ([facility] for blood level coumadin checks. PT at home has just finished) Alcohol intake: never Patient Tobacco Use Status: Never used Tobacco Tobacco use type: Cigarette e-Cigarette/Vaping Use: Never Used Second Hand Smoke Exposure: No Advance Directives Date on File: 10/09/21 service: No Current occupational status: disabled Current occupation: left handed Cognitive needs: No Hearing needs: No Vision needs: No Meds Allergies Allergy/AdvReac Type Severity Reaction Status Date / Time TAPE,PAPER Allergy Unknown RASH TO Uncoded 10/09/21 12:18 PAPER TAPE Active Medications: Current Medications Acetaminophen (Acetaminophen 325 Mg Tablet) 650 mg PO Q6H PRN PRN Reason: Pain, Mild (Pain Scale 1-3) Last Admin: 10/12/21 09:11 Dose: 650 mg Documented by: Artificial Tears (Artificial Tears 15 Ml Drops) 1 drop EYE-BOTH TID [facility] Last Admin: 10/13/21 20:42 Dose: 1 drop Documented by: Aspirin (Aspirin 81 Mg Tab.Chew) 81 mg PO DAILY [facility] Last Admin: 10/13/21 11:51 Dose: 81 mg Documented by: Atorvastatin Calcium (Atorvastatin Calcium 40 Mg Tablet) 40 mg PO DAILY [facility] Last Admin: 10/13/21 09:11 Dose: 40 mg Documented by: Calcium Carbonate (Calcium Carbonate 750 Mg Tab.Chew) 750 mg PO Q6H PRN PRN Reason: Heartburn Last Admin: 10/14/21 05:58 Dose: 750 mg Documented by: Carvedilol (Carvedilol 25 Mg Tablet) 25 mg PO BIDWM [facility]; Protocol Last Admin: 10/13/21 16:11 Dose: 25 mg Documented by: Docusate Sodium (Docusate Sodium 100 Mg Capsule) 200 mg PO BEDTIME [facility] Last Admin: 10/13/21 20:34 Dose: 200 mg Documented by: Ferrous Sulfate (Ferrous Sulfate 324 Mg Tablet.) 324 mg PO BID [facility] Last Admin: 10/13/21 20:35 Dose: 324 mg Documented by: Fluoxetine HCl (Fluoxetine Hcl 20 Mg Capsule) 20 mg PO DAILY [facility] Last Admin: 10/13/21 09:12 Dose: 20 mg Documented by: Furosemide (Furosemide 20 Mg/2 Ml Vial) 60 mg IVPUSH BID@0900,1800 [facility]; Protocol Last Admin: 10/13/21 18:39 Dose: 60 mg Documented by: Isosorbide Dinitrate (Isosorbide Dinitrate 5 Mg Tablet) 5 mg PO BID [facility]; Protocol Last Admin: 10/13/21 20:35 Dose: 5 mg Documented by: Levothyroxine Sodium (Levothyroxine Sodium 150 Mcg Tablet) 150 mcg PO DAILY@0600 [facility] Last Admin: 10/14/21 05:58 Dose: 150 mcg Documented by: Omeprazole (Omeprazole 20 Mg Capsule.) 20 mg PO DAILY@0630 [facility] Last Admin: 10/14/21 05:58 Dose: 20 mg Documented by: Ondansetron HCl (Ondansetron Hcl 4 Mg/2 Ml Vial) 4 mg IVPUSH Q8H PRN PRN Reason: Nausea and Vomiting Pharmacy Consult (Consult Rx Perform Med Rec) 1 each MISCELLANE ONCE PRN PRN Reason: Consult order Pramoxine HCl (Pramoxine Hcl 1 % Rectal Foam 15 Gm) 1 appl [place] BID [facility] Last Admin: 10/13/21 20:42 Dose: 1 appl Documented by: Sodium Chloride (0.9 % Sodium Chloride Flush 3 Ml Syringe) 3 ml IVFLUSH QSHIFT [facility] Last Admin: 10/13/21 20:49 Dose: 3 ml Documented by: Trazodone HCl (Trazodone Hcl 50 Mg Tablet) 50 mg PO DAILY PRN PRN Reason: for insomnia Warfarin Sodium (Warfarin Sodium 2.5 Mg Tablet) 2.5 mg PO DAILY@1800 [facility] Last Admin: 10/13/21 18:39 Dose: 2.5 mg Documented by: Home Medications Medication Instructions Recorded Confirmed Last Taken Type acetaminophen 325 mg capsule 325 mg PO QID PRN 08/06/20 10/09/21 10/09/21 History (Tylenol) vit C 250 mg-vit E 90 mg-zinc 40 1 tab PO BID 09/28/20 12/01/21 12/01/21 History mg-copper 1 [id number] capsule (PreserVision AREDS-2) potassium chloride 20 mEq 20 meq PO Q48H 06/19/21 10/09/21 10/09/21 History tablet,extended release(part/cryst) (Klor-Con M) docusate sodium 100 mg capsule 200 mg PO BEDTIME 08/09/21 10/09/21 10/09/21 History artifi.tears(hypromellose)(PF) 0.3 1 drp OPHTHALMIC (EYE) TID 09/03/21 10/09/21 10/09/21 History % eye drops warfarin 2.5 mg tablet 2.5 mg PO DAILY 09/26/21 10/09/21 10/09/21 History calcium 750 mg PO DAILY 10/09/21 10/09/21 10/09/21 History Physical Exam Vital Signs: Vital Signs: Last Vital Signs Temp 98.2 F 10/14/21 07:35 Pulse 60 10/14/21 07:35 Resp 18 10/14/21 07:35 BP 131/72 10/14/21 07:35 Pulse Ox 95 10/14/21 07:35 BMI result Body Mass Index 23.7 Const: General: comfortable and no acute distress Resp: Effort & Inspection: normal respiratory effort Cardio: Rhythm: abnormal rhythm GI: Other: Rectal exam - large hemorrhoids, internal and external; thrombosed hemorrhoid noted on the left, appears chronic, not tender, no acute bleeding, no induration or cellulitic changes; anoscopy deferred Palpation (GI): Soft to palpation and nontender Results Labs Result diagrams: 10/09/21 11:16 10/14/21 05:41 Labs: Abnormal lab results 10/14/21 10/14/21 10/14/21 Range/Units 05:41 05:41 05:41 PT 42.9 H (9.9-13.0) SEC INR 3.7 H (0.9-1.1) BUN 106 H (9-16) mg/dL Creatinine 2.96 H (0.5-1.4) mg/dL B-Natriuretic Peptide 1287 H (<100) pg/mL [facility] 10/14/21 05:41 Sodium 142 Potassium 4.5 Chloride 104 Carbon Dioxide 28 BUN 106 H Creatinine 2.96 H Calcium 8.7 Urine 10/10/21 Range/Units 00:00 Urine Color YELLOW Urine Appearance CLEAR Urine pH 5.5 (5.0-8.0) Ur Specific [place] 1.020 (1.005-1.025) Urine Protein 2+ H (NEG-TRACE) MG/DL Urine Glucose (UA) NEG (NEG) MG/DL All other labs normal. Assessment and Plan (1) Hemorrhoids with complication: Status: Acute She does have bulky hemorrhoidal columns on the left and the right side with what appears to be chronically thrombosed external hemorrhoid the left. I told her that I would not recommend surgery in view of her multiple medical problems with significant perioperative risks for anesthesia. We will manage her hemorrhoids symptomatically. I would recommend hot Sitz baths t.i.d., as well as Calmoseptine for perianal discomfort. She is to avoid straining and constipation as well. She understands the plan. I will explain this with her daughter as well. I will follow along while she is in the hospital. Procedures Date of Service Date of Service: 10/14/21
[2021-10-14] MEDS: carvediloL 25 MG TABLET PO (08:44)
[2021-10-14] MEDS: Aspirin 81 MG TAB.CHEW PO (08:44)
[2021-10-14] MEDS: FLUoxetine HCl 20 MG CAPSULE PO (08:44)
[2021-10-14] MEDS: Atorvastatin Calcium 40 MG TABLET PO (08:44)
[2021-10-14] MEDS: Furosemide 20 MG/2 ML VIAL 60 MG IVPUSH ×2 (08:44→17:57)
[2021-10-14] MEDS: Isosorbide Dinitrate 5 MG TABLET PO ×2 (08:44→21:00)
[2021-10-14] MEDS: Ferrous Sulfate 324 MG TABLET.DR PO ×2 (08:45→21:00)
[2021-10-14] MEDS: 0.9 % Sodium Chloride Flush 3 ML SYRINGE IVFLUSH ×3 (08:47→21:01)
[2021-10-14] MEDS: Artificial Tears 15 ML DROPS 1 DROP EYE-BOTH ×3 (08:51→21:00)
--- NOTE | 2021-10-14 09:43 | PM.PNCARD ---
Subjective Subjective Date of Service: 10/14/21 Principal diagnosis: Right HF, ALIZA on CKD, Mechanical MVR, CMP Interval history: Cardiology follow up for R HF, CMP. Seen at 0830. Today she reports getting frustrated that fluid is taking so long to come out of abdomen. She reports abdominal distention, which she states is unchanged from admission. No abdominal or chest area discomfort. No sob, palpitation, dizziness. Has been up to the bathroom and reports steadiness on her feet. Not sleeping well in the hospital. Review of Systems Review of Systems as above Yes all other systems are reviewed and are negative Physical Exam Vital Signs: Last Vital Signs Temp 98.2 F 10/14/21 07:35 Pulse 60 10/14/21 08:44 Resp 18 10/14/21 07:35 BP 131/72 10/14/21 08:44 Pulse Ox 95 10/14/21 07:35 BMI result Body Mass Index 23.7 Const General: cooperative, no acute distress, alert and awake Orientation/consciousness: patient oriented x3 Neck Neck: Yes normal visual inspection and Yes no JVD Resp Other: Dim right lung base Effort & Inspection: normal respiratory effort, able to speak in complete sentences and not labored Auscultation: clear to auscultation bilaterally, no rales, no rhonchi and no wheezes Cardio Palpation: normal PMI Rate: regular rate Rhythm: regular rhythm Heart sounds: S1 normal heart sound present and S2 normal heart sound present Peripheral pulses: Peripheral pulses 2+ throughout GI Other: rounded, distended, no facial grimace to palpation Neuro General: patient oriented x3 Extrem Other: mildly pitting edema from mid calf to ankles, right > Left Objective Labs and Meds Result diagrams: 10/09/21 11:16 10/14/21 05:41 Lab results: Laboratory Results - last 24 hr 10/14/21 10/14/21 10/14/21 05:41 05:41 05:41 PT 42.9 H INR 3.7 H Sodium 142 Potassium 4.5 Chloride 104 Carbon Dioxide 28 Anion Gap 15 BUN 106 H Creatinine 2.96 H Estim Creat Clear Calc 18.4 Estimated GFR 16 Random Glucose 92 Calcium 8.7 B-Natriuretic Peptide 1287 H Progress Note: A&P Assessment and plan (1) Acute on chronic right-sided congestive heart failure: Status: Acute Assessment and Plan: Hx of HFrEF, Ischemic CMP, mod to severe TR. Admit with leg edema and ascites. Being treated for acute on chronic right heart failure. Echo 09/04 shows EF 10-15%, decrease in RV systolic function, mod to severe TR, normally functioning mechanical mitral valve. She is being diuresed with IV Lasix with fluid balance neg 1480cc since admit. Cr had been as high as 3.21 and is 2.96 today. Nephrology is following as well. Still has ascities which she states is unchanged since admit. Leg edema improving. Breathing unlabored, Lungs clear, dim in right base. Sat 95% on RA. Continue with current lasix. Continue usual Carvedilol, isordil. Strict I+O monitoring. Close monitoring of electrolytes and kidney function. (2) CKD (chronic kidney disease) stage 4, GFR 15-29 ml/min: Status: Acute (3) Chronic atrial fibrillation: Status: Acute Assessment and Plan: Tele shows V paced rhythm, rate 60s. Rate controlled with Carvedilol. On coumadin for anticoagulation. (4) Ascites: Status: Acute Assessment and Plan: Abdominal ultrasound this admit shows moderate ascities. Diuresing as above. (5) Mechanical heart valve present: Status: Acute Assessment and Plan: Hx of mechanical MVR. [place] audible valve click noted on exam. Functioning normally on recent echo. On coumadin and aspirin. INR goal 2.5- 3.5. (6) Ischemic cardiomyopathy: Status: Acute Assessment and Plan: EF 10-15%. Has ICD in place. On carvedilol for neurohormonal modulation. Not on tramaine/ arb due to CKD. Follows with Dr Estrella as outpt (7) ICD (implantable cardioverter-defibrillator) in place: Status: Acute Assessment and Plan: [place] single lead ICD in place. Monitored as outpt through our office. No indication for interrogation at present. Fall Risk Details Current Medications: Current Medications Acetaminophen (Acetaminophen 325 Mg Tablet) 650 mg PO Q6H PRN PRN Reason: Pain, Mild (Pain Scale 1-3) Last Admin: 10/12/21 09:11 Dose: 650 mg Documented by: Artificial Tears (Artificial Tears 15 Ml Drops) 1 drop EYE-BOTH TID [facility] Last Admin: 10/14/21 08:51 Dose: 1 drop Documented by: Aspirin (Aspirin 81 Mg Tab.Chew) 81 mg PO DAILY [facility] Last Admin: 10/14/21 08:44 Dose: 81 mg Documented by: Atorvastatin Calcium (Atorvastatin Calcium 40 Mg Tablet) 40 mg PO DAILY [facility] Last Admin: 10/14/21 08:44 Dose: 40 mg Documented by: Calcium Carbonate (Calcium Carbonate 750 Mg Tab.Chew) 750 mg PO Q6H PRN PRN Reason: Heartburn Last Admin: 10/14/21 05:58 Dose: 750 mg Documented by: Carvedilol (Carvedilol 25 Mg Tablet) 25 mg PO BIDWM [facility]; Protocol Last Admin: 10/14/21 08:44 Dose: 25 mg Documented by: Docusate Sodium (Docusate Sodium 100 Mg Capsule) 200 mg PO BEDTIME [facility] Last Admin: 10/13/21 20:34 Dose: 200 mg Documented by: Ferrous Sulfate (Ferrous Sulfate 324 Mg Tablet.) 324 mg PO BID [facility] Last Admin: 10/14/21 08:45 Dose: 324 mg Documented by: Fluoxetine HCl (Fluoxetine Hcl 20 Mg Capsule) 20 mg PO DAILY [facility] Last Admin: 10/14/21 08:44 Dose: 20 mg Documented by: Furosemide (Furosemide 20 Mg/2 Ml Vial) 60 mg IVPUSH BID@0900,1800 [facility]; Protocol Last Admin: 10/14/21 08:44 Dose: 60 mg Documented by: Hydrocortisone (Hydrocortisone 2.5 % Rectal Cr 30 Gm Tube) 1 appl [place] BID PRN PRN Reason: perianal pain Isosorbide Dinitrate (Isosorbide Dinitrate 5 Mg Tablet) 5 mg PO BID [facility]; Protocol Last Admin: 10/14/21 08:44 Dose: 5 mg Documented by: Levothyroxine Sodium (Levothyroxine Sodium 150 Mcg Tablet) 150 mcg PO DAILY@0600 [facility] Last Admin: 10/14/21 05:58 Dose: 150 mcg Documented by: Omeprazole (Omeprazole 20 Mg Capsule.) 20 mg PO DAILY@0630 [facility] Last Admin: 10/14/21 05:58 Dose: 20 mg Documented by: Ondansetron HCl (Ondansetron Hcl 4 Mg/2 Ml Vial) 4 mg IVPUSH Q8H PRN PRN Reason: Nausea and Vomiting Pharmacy Consult (Consult Rx Perform Med Rec) 1 each MISCELLANE ONCE PRN PRN Reason: Consult order Pramoxine HCl (Pramoxine Hcl 1 % Rectal Foam 15 Gm) 1 appl [place] BID [facility] Last Admin: 10/14/21 08:54 Dose: Not Given Documented by: Sodium Chloride (0.9 % Sodium Chloride Flush 3 Ml Syringe) 3 ml IVFLUSH QSHIFT [facility] Last Admin: 10/14/21 08:47 Dose: 3 ml Documented by: Trazodone HCl (Trazodone Hcl 50 Mg Tablet) 50 mg PO DAILY PRN PRN Reason: for insomnia Warfarin Sodium (Warfarin Sodium 2.5 Mg Tablet) 2.5 mg PO DAILY@1800 [facility] Last Admin: 10/13/21 18:39 Dose: 2.5 mg Documented by: Time Spent With Patient Time: Total time spent is greater than 50% in coordination of care (as documented) at patient's floor/unit and/or counseling patient: Time with patient: 15 - 24 minutes Progress Note: Quality Stroke Does the patient have a stroke diagnosis?: No Procedures Date of Service Date of Service: 10/14/21
--- NOTE | 2021-10-14 10:52 | PM.PNNEP ---
Subjective Subjective Date of Service: 10/15/21 Principal diagnosis: Right HF, ALIZA on CKD, Mechanical MVR, CMP Interval history: Events noted Physical Exam Vital Signs: Vital Signs: Last Vital Signs Temp 98.2 F 10/14/21 07:35 Pulse 60 10/14/21 08:44 Resp 18 10/14/21 07:35 BP 131/72 10/14/21 08:44 Pulse Ox 95 10/14/21 07:35 BMI result Body Mass Index 23.7 Const: Other: female chronically ill appearing General: cooperative, comfortable, no acute distress, alert and awake Nutritional Appearance: thin Orientation/consciousness: oriented to person and patient oriented x3 Limitations: no limitations HENMT: Other: Unremarkable Head: Yes normal to inspection, Yes normocephalic and Yes atraumatic Ears: external ears normal General nose exam: Normal external nose present Mouth: Normal oral and palatal mucosa present and oropharynx normal Throat: Yes posterior oropharynx normal Eyes: General: appearance normal, both eyes and all related structures Neck: Other: supple Neck: Yes normal visual inspection, Yes supple and Yes no JVD Chest: Chest palpation & inspection: normal inspection of the chest Resp: Other: Dim right lung base Effort & Inspection: normal respiratory effort, able to speak in complete sentences and not labored Auscultation: clear to auscultation bilaterally, no crackles, no rales, no rhonchi, no wheezes and diminished lung sounds Cardio: Other: Prosthetic heart sounds+ Jugular venous distension: no JVD Palpation: normal PMI Rate: regular rate Rhythm: regular rhythm and abnormal rhythm Heart sounds: S1 normal heart sound present, S2 normal heart sound present and Murmur heart sound present diastolic and systolic Peripheral pulses: Peripheral pulses 2+ throughout GI: Other: rounded, distended, no facial grimace to palpation Palpation (GI): Soft to palpation and nontender Auscultation: normal bowel sounds : General: Yes no CVA tenderness Back/Spine/Pelvis: Other: unremarkable Back: no CVA tenderness Skin: General skin exam: no rashes or lesions noted Neuro: General: oriented to person and patient oriented x3 Cranial nerves: Yes CN's II-XII intact bilaterally and Yes Other cranial nerve findings present Motor exam (neuro): 5/5 motor strength present throughout Sensory Exam: No Sensory deficit (Neuro) Extrem: Other: mildly pitting edema from mid calf to ankles, right > Left General: Yes edema (2+ R>L) and Yes pedal edema Psych: Appearance: grossly normal Mental Status: other Objective Data Labs CBC & Chem 7: 10/09/21 11:16 10/15/21 05:53 Labs: Laboratory Results - last 24 hr 10/14/21 10/14/21 10/14/21 05:41 05:41 05:41 PT 42.9 H INR 3.7 H Sodium 142 Potassium 4.5 Chloride 104 Carbon Dioxide 28 Anion Gap 15 BUN 106 H Creatinine 2.96 H Estim Creat Clear Calc 18.4 Estimated GFR 16 Random Glucose 92 Calcium 8.7 B-Natriuretic Peptide 1287 H Procedures Date of Service Date of Service: 10/14/21 Assessment & Plan Assessment and plan (1) Acute on chronic right-sided congestive heart failure: Status: Acute Assessment and Plan: (1) ALIZA (acute kidney injury): ?Status:?Acute (2) CHF (congestive heart failure): ?Status:?Acute (3) CKD (chronic kidney disease) stage 4, GFR 15-29 ml/min: ?Status:?Acute ?Assessment and Plan: stable Scr ALIZA c/w CRS 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 Rate controlled with Carvedilol. On coumadin for anticoagulation. (4) Ascites: Status: Acute Assessment and Plan: Abdominal ultrasound this admit shows moderate ascities. Diuresing as above. (5) Mechanical heart valve present: Status: Acute Assessment and Plan: Hx of mechanical MVR. [place] audible valve click noted on exam. Functioning normally on recent echo. On coumadin and aspirin. INR goal 2.5- 3.5. (6) Ischemic cardiomyopathy: Status: Acute Assessment and Plan: EF 10-15%. Has ICD in place. On carvedilol for neurohormonal modulation. Not on tramaine/ arb due to CKD. Follows with Dr Estrella as outpt (7) ICD (implantable cardioverter-defibrillator) in place: Status: Acute Time Spent With Patient Time: Total time spent is greater than 50% in coordination of care (as documented) at patient's floor/unit and/or counseling patient: Time with patient: 15 - 24 minutes Progress Note: Quality Stroke Does the patient have a stroke diagnosis?: No
[2021-10-14] MEDS: Hydrocortisone 2.5 % Rectal Cr 30 GM TUBE 1 APPL PR (13:55)
--- NOTE | 2021-10-14 15:22 | PM.DS ---
DS: Providers Provider Date of admission: 10/09/21 15:34 Primary care physician: Dakotah Jin MD Consults: 10/09/21 16:20 Consult to Cardiology Routine Consulting Provider: Neeraj Alexander Reason for consultation: chf Has provider been notified: No 10/10/21 09:48 Consult to Nephrology Routine Consulting Provider: Finesse Hua Reason for consultation: ckd Has provider been notified: No 10/13/21 19:03 Consult to General Surgery Routine Consulting Provider: [facility] [place] General Surgeons Reason for consultation: painful hemorrhoids DS: Diagnosis Discharge Diagnosis (1) Acute on chronic right-sided congestive heart failure: Status: Acute (2) CKD (chronic kidney disease) stage 4, GFR 15-29 ml/min: Status: Acute (3) Chronic atrial fibrillation: Status: Acute (4) Ascites: Status: Acute (5) Mechanical heart valve present: Status: Acute (6) Ischemic cardiomyopathy: Status: Acute (7) ICD (implantable cardioverter-defibrillator) in place: Status: Acute DS: Summary Time Spent with Patient Time attestation: Total time spent providing and/or coordinating discharge services: Physical Exam Vital Signs: Vital Signs: Last Vital Signs Temp 98.4 F 10/14/21 11:12 Pulse 60 10/14/21 11:12 Resp 18 10/14/21 11:12 BP 98/57 L 10/14/21 11:12 Pulse Ox 95 10/14/21 11:12 BMI result Body Mass Index 23.7 DS: Data Data Completed and Pending Labs on day of discharge: Laboratory Results - last 24 hr 10/14/21 10/14/21 10/14/21 05:41 05:41 05:41 PT 42.9 H INR 3.7 H Sodium 142 Potassium 4.5 Chloride 104 Carbon Dioxide 28 Anion Gap 15 BUN 106 H Creatinine 2.96 H Estim Creat Clear Calc 18.4 Estimated GFR 16 Random Glucose 92 Calcium 8.7 B-Natriuretic Peptide 1287 H Discharge Plan Discharge Referrals: Dakotah Jin MD [Primary Care Provider] - 1 Week Discharge Medications: No Action aspirin 81 mg tablet,delayed release (DR/EC) 81 mg PO DAILY Qty: 90 RF: 3 isosorbide dinitrate 5 mg tablet 5 mg PO BID Qty: 180 RF: 3 omeprazole 20 mg capsule,delayed release(DR/EC) 20 mg PO DAILY Qty: 90 RF: 2 rosuvastatin 10 mg tablet 10 mg PO DAILY Qty: 90 RF: 2 (DME) prosthetics Kit See Rx Instructions .ROUTE .MEDSUPPLY Qty: 1 RF: 0 trazodone 50 mg tablet 50 mg PO DAILY PRN (Reason: for insomnia) Qty: 90 RF: 1 carvedilol [Coreg] 25 mg tablet 25 mg PO BIDWM 90 Days Qty: 180 RF: 3 levothyroxine 137 mcg tablet 137 mcg PO QAM Qty: 90 RF: 3 (DME) JUXTA LITe compression See Rx Instructions .Route .MEDSUPPLY Qty: 2 RF: 0 docusate sodium 100 mg capsule 200 mg PO BEDTIME RF: 0 (DME) walker Misc See Rx Instructions .Route Qty: 1 RF: 0 fluoxetine 20 mg capsule 20 mg PO DAILY 30 Days Qty: 30 RF: 2 ferrous sulfate 324 mg (65 mg iron) tablet,delayed release (DR/EC) 324 mg PO BID RF: 3 (DME) occular prosthetic. See Rx Instructions .Route .MEDSUPPLY Qty: 1 RF: 0 potassium chloride [Klor-Con M20] 20 mEq tablet,ER particles/crystals 20 meq PO Q48H RF: 0 calcium 750 mg PO DAILY RF: 0 artifi.tears(hypromellose)(PF) 0.3 % drops 1 drp ophthalmic (eye) TID RF: 0 furosemide 40 mg Tablet 40 mg PO BID@0900,1800 Qty: 60 RF: 0 hydrocortisone-pramoxine 2.5-1 % cream 1 appl [place] BID-TID PRN (Reason: itching) Qty: 30 RF: 0 Hemorrhoidal (witch jose) 50 % pads, medicated 1 pad topical BID-TID PRN (Reason: skin irritation) Qty: 100 RF: 0 PreserVision AREDS-2 [phone] ok-idym-sn-mg capsule 1 tab PO BID RF: 0 acetaminophen [Tylenol] 325 mg capsule 325 mg PO QID PRN (Reason: Pain) RF: 0 ascorbic acid (vitamin C) 500 mg capsule, extended release 500 mg PO BID Qty: 60 RF: 5 warfarin 2.5 mg tablet 2.5 mg PO DAILY RF: 0
--- NOTE | 2021-10-14 15:34 | HO.PM.IMPN ---
Subjective Subjective Date of Service: 10/14/21 Interval History: Offers no acute complaints, denies shortness of breath, no chest pain, is spoke with daughter on phone at patient's request, daughter wants to know treatment for her hemorrhoids. Review of Systems General no headache, no dizziness, no fever chills.? CVS no chest pain, no palpitation.? Respiratory no cough,no shortness of breath.? Gastrointestinal no nausea, no vomiting, no abdominal pain, noted some blood on toilet paper Musculoskeletal no pain no urinary frequency or urgency Skin no rash? Yes all other systems are reviewed and are negative Review of Systems: Yes all other systems are reviewed and are negative Physical Exam Vital Signs: Vital Signs: Last Vital Signs Temp 98.4 F 10/14/21 11:12 Pulse 60 10/14/21 11:12 Resp 18 10/14/21 11:12 BP 98/57 L 10/14/21 11:12 Pulse Ox 95 10/14/21 11:12 BMI result Body Mass Index 23.7 Gen: Awake alert times 3, no acute distress Neck: sup ple, no JVD Lungs: Clear to auscult ation, no respirat ory distress Heart : regular rate and rhythm, mechanica l S1, no murmurs A bd: soft, non-tend er, distended Ext: 2+ pitting edema BLEs Skin: warm/we ll-perfused Neuro: alert and oriente d x3, no focal fin dings Psych: appro priate affect Objective Data Active Medications Acetaminophen (Acetaminophen 325 Mg Tablet) 650 mg PO Q6H PRN PRN Reason: Pain, Mild (Pain Scale 1-3) Last Admin: 10/12/21 09:11 Dose: 650 mg Documented by: DMITRI Artificial Tears (Artificial Tears 15 Ml Drops) 1 drop EYE-BOTH TID [facility] Last Admin: 10/14/21 14:01 Dose: 1 drop Documented by: RM Aspirin (Aspirin 81 Mg Tab.Chew) 81 mg PO DAILY [facility] Last Admin: 10/14/21 08:44 Dose: 81 mg Documented by: RM Atorvastatin Calcium (Atorvastatin Calcium 40 Mg Tablet) 40 mg PO DAILY [facility] Last Admin: 10/14/21 08:44 Dose: 40 mg Documented by: RM Calcium Carbonate (Calcium Carbonate 750 Mg Tab.Chew) 750 mg PO Q6H PRN PRN Reason: Heartburn Last Admin: 10/14/21 05:58 Dose: 750 mg Documented by: CASTRO Carvedilol (Carvedilol 12.5 Mg Tablet) 12.5 mg PO BIDWM [facility]; Protocol Docusate Sodium (Docusate Sodium 100 Mg Capsule) 200 mg PO BEDTIME [facility] Last Admin: 10/13/21 20:34 Dose: 200 mg Documented by: CASTRO Ferrous Sulfate (Ferrous Sulfate 324 Mg Tablet.) 324 mg PO BID [facility] Last Admin: 10/14/21 08:45 Dose: 324 mg Documented by: RM Fluoxetine HCl (Fluoxetine Hcl 20 Mg Capsule) 20 mg PO DAILY [facility] Last Admin: 10/14/21 08:44 Dose: 20 mg Documented by: RM Furosemide (Furosemide 20 Mg/2 Ml Vial) 60 mg IVPUSH BID@0900,1800 [facility]; Protocol Last Admin: 10/14/21 08:44 Dose: 60 mg Documented by: RM Hydrocortisone (Hydrocortisone 2.5 % Rectal Cr 30 Gm Tube) 1 appl [place] BID PRN PRN Reason: perianal pain Last Admin: 10/14/21 13:55 Dose: 1 appl Documented by: RM Isosorbide Dinitrate (Isosorbide Dinitrate 5 Mg Tablet) 5 mg PO BID [facility]; Protocol Last Admin: 10/14/21 08:44 Dose: 5 mg Documented by: RM Levothyroxine Sodium (Levothyroxine Sodium 150 Mcg Tablet) 150 mcg PO DAILY@0600 [facility] Last Admin: 10/14/21 05:58 Dose: 150 mcg Documented by: CASTRO Omeprazole (Omeprazole 20 Mg Capsule.) 20 mg PO DAILY@0630 [facility] Last Admin: 10/14/21 05:58 Dose: 20 mg Documented by: CASTRO Ondansetron HCl (Ondansetron Hcl 4 Mg/2 Ml Vial) 4 mg IVPUSH Q8H PRN PRN Reason: Nausea and Vomiting Pharmacy Consult (Consult Rx Perform Med Rec) 1 each MISCELLANE ONCE PRN PRN Reason: Consult order Pramoxine HCl (Pramoxine Hcl 1 % Rectal Foam 15 Gm) 1 appl [place] BID [facility] Last Admin: 10/14/21 08:54 Dose: Not Given Documented by: RM Non-Admin Reason: Duplicate Order Psyllium Hydrophilic Mucilloid (Psyllium Seed 3.4 Gm Powd.Pack) 3.4 gm PO DAILY [facility] Last Admin: 10/14/21 13:55 Dose: 3.4 gm Documented by: RM Sodium Chloride (0.9 % Sodium Chloride Flush 3 Ml Syringe) 3 ml IVFLUSH QSHIFT [facility] Last Admin: 10/14/21 08:47 Dose: 3 ml Documented by: RM Trazodone HCl (Trazodone Hcl 50 Mg Tablet) 50 mg PO DAILY PRN PRN Reason: for insomnia Warfarin Sodium (Warfarin Sodium 2.5 Mg Tablet) 2.5 mg PO DAILY@1800 [facility] Last Admin: 10/13/21 18:39 Dose: 2.5 mg Documented by: DMITRI Labs CBC & Chem 7: 10/09/21 11:16 10/14/21 05:41 Labs: Laboratory Results - last 24 hr 10/14/21 10/14/21 10/14/21 05:41 05:41 05:41 PT 42.9 H INR 3.7 H Anion Gap 15 Estim Creat Clear Calc 18.4 Estimated GFR 16 Random Glucose 92 Calcium 8.7 B-Natriuretic Peptide 1287 H Assessment and Plan (1) Ischemic cardiomyopathy: Status: Acute Assessment and Plan: 71yo F with HTN, HLD, CAD, biventricular HFrEF s/p AICD, CKD4, mechanical mitral? on warfarin, pHTN, hypothyroidism, retinal detachment, bladder CA, amyloidosis, anxiety, depression admitted with CHF exacerbation # acute/chronic HFrEF Likely due to cardiomyopathy, right-sided heart failure , cardiorenal syndrome - asymptomatic, is negative 2 L since admission, continue furosemide iv 60mg bid - follow I/O, weights; monitor BNP, BMP, Mg - recent TTE with LVEF 15-20% + decreased RVEF, normally functioning prosthetic mitral valve - continue Isordil, and carvedilol # ascites - will manage with diuretics # ALIZA/CKD4 due to AA amyloidosis + cardiorenal syndrome - monitor on diuresis, case discussed with Nephrology they recommend current treat, creatinine at baseline # mechanical mitral valve - continue warfarin, INR 3.7 hold Coumadin follow PT INR - ASA added as per Cardiology # hypothyroidism - continue LT4- increased dose for under-suppressed TSH- recheck TSH in 4-6 wk # HTN - continue Isordil, and carvedilol BP soft # chronic anemia - continue iron supplementation # dyslipidemia - continue statin # mood disorder - continue fluoxetine # external hemorrhoid, seen by General surgery they recommend Sitz baths t.i.d. as well as Calmoseptine for perianal discomfort. Will add Metamucil daily recommend to avoid constipation and straining. # VTE ppx - warfarin # dispo - PT consult Quality Stroke Does the patient have a stroke diagnosis?: No VTE Prior VTE?: No VTE Risk Level:: Medical - moderate - high VTE Device Contraindication: Treatment Not Indicated VTE Drug Contraindication: N/A - Med Ordered
--- NOTE | 2021-10-14 15:38 | MHC.CM.PN ---
Female 71 DX HF ALIZA CKD No discharge per MD rounds. Patient still requiring IV lasix. DP return home with dtr [facility]. [facility] and PT will resume services.
[2021-10-14] MEDS: carvediloL 12.5 MG TABLET PO (17:56)
[2021-10-14] MEDS: Docusate Sodium 100 MG CAPSULE 200 MG PO (21:00)
[2021-10-14] MEDS: Pramoxine HCl 1 % Rectal Foam 15 GM 1 APPL PR (21:01)
[2021-10-15] MEDS: traZODone HCL 50 MG TABLET PO ×2 (00:07→20:18)
[2021-10-15] MEDS: Calcium Carbonate 750 MG TAB.CHEW PO (00:07)
[2021-10-15] MEDS: Levothyroxine Sodium 150 MCG TABLET PO (05:53)
[2021-10-15] MEDS: Omeprazole 20 MG CAPSULE.DR PO (05:53)
[2021-10-15 06:43] LABS: INTERNATIONAL NORM RATIO 3.4 (0.9-1.1); Prothrombin Time 39.2 SEC (9.9-13.0)
[2021-10-15 06:44] LABS: Anion Gap 15 (12-20); Blood Urea Nitrogen 110 mg/dL (9-16); Calcium 8.8 mg/dL (8.4-10.2); Carbon Dioxide 29 mmol/L (22-29); Chloride 103 mmol/L (96-108); Creatinine Clr Calc Pharmacy 19.2; Estimated Glomerular Filt Rate 16; Glucose Random 90 mg/dL (60-115); Potassium 4.2 mmol/L (3.3-5.1); Sodium 143 mmol/L (135-145)
[2021-10-15 07:44] VITALS: BP 113/59; PULSE 60; RESP 18; TEMP 36.3; O2SAT 94
[2021-10-15] MEDS: Isosorbide Dinitrate 5 MG TABLET PO ×2 (09:21→20:15)
[2021-10-15] MEDS: Aspirin 81 MG TAB.CHEW PO (09:21)
[2021-10-15] MEDS: Ferrous Sulfate 324 MG TABLET.DR PO ×2 (09:21→20:15)
[2021-10-15] MEDS: Atorvastatin Calcium 40 MG TABLET PO (09:21)
[2021-10-15] MEDS: carvediloL 12.5 MG TABLET PO ×2 (09:21→17:51)
[2021-10-15] MEDS: FLUoxetine HCl 20 MG CAPSULE PO (09:21)
[2021-10-15] MEDS: 0.9 % Sodium Chloride Flush 3 ML SYRINGE IVFLUSH ×3 (09:22→20:15)
[2021-10-15] MEDS: Pramoxine HCl 1 % Rectal Foam 15 GM 1 APPL PR ×2 (09:22→20:24)
[2021-10-15] MEDS: Furosemide 20 MG/2 ML VIAL 60 MG IVPUSH ×2 (09:22→17:51)
[2021-10-15] MEDS: Artificial Tears 15 ML DROPS 1 DROP EYE-BOTH ×3 (09:22→20:16)
--- NOTE | 2021-10-15 09:34 | PM.PNCARD ---
Subjective Subjective Date of Service: 10/15/21 <GEOVANNY Britton - Last Filed: 10/15/21 11:02> 10/15/21 <Garth Winters MD - Last Filed: 10/15/21 15:49> Principal diagnosis: Right HF, ALIZA on CKD, Mechanical MVR, CMP <GEOVANNY Britton - Last Filed: 10/15/21 11:02> Interval history: Cardiology follow up for the above. Seen at 0920. Today she report breathing comfortable and states she slept well. No chest pains, palpitation, abdominal discomfort. She says her abdominal distention is the same. No dizziness with standing. Was able to walk short distances yesterday and tolerated well. Has general weakness. Expresses concern about her health state. Spent time with her answering all her questions. <GEOVANNY Britton - Last Filed: 10/15/21 11:02> Review of Systems Review of Systems as above <GEOVANNY Britton - Last Filed: 10/15/21 11:02> Yes all other systems are reviewed and are negative <GEOVANNY Britton - Last Filed: 10/15/21 11:02> Physical Exam Vital Signs: Last Vital Signs Temp 97.4 F 10/15/21 07:44 Pulse 60 10/15/21 07:44 Resp 18 10/15/21 07:44 BP 113/59 L 10/15/21 07:44 Pulse Ox 94 10/15/21 07:44 BMI result Body Mass Index 23.7 <GEOVANNY Britton - Last Filed: 10/15/21 11:02> Const General: cooperative, no acute distress, alert and awake <GEOVANNY Britton - Last Filed: 10/15/21 11:02> Orientation/consciousness: patient oriented x3 <GEOVANNY Britton Last Filed: 10/15/21 11:02> Neck Neck: Yes normal visual inspection and Yes no JVD <GEOVANNY Britton Last Filed: 10/15/21 11:02> Resp Effort & Inspection: normal respiratory effort, able to speak in complete sentences and not labored <GEOVANNY Britton Last Filed: 10/15/21 11:02> Auscultation: clear to auscultation bilaterally, crackles (Few rales right base), no rhonchi and no wheezes <Melissa FryeJEANMARIE-C - Last Filed: 10/15/21 11:02> Cardio Palpation: normal PMI <Melissa FryeJEANMARIE-C - Last Filed: 10/15/21 11:02> Rate: regular rate <Melissa FryeJEANMARIEC - Last Filed: 10/15/21 11:02> Rhythm: regular rhythm <Melissa FryeJEANMARIE-C - Last Filed: 10/15/21 11:02> Heart sounds: S1 normal heart sound present and S2 normal heart sound present <Melissa FryeJEANMARIE-C - Last Filed: 10/15/21 11:02> Peripheral pulses: Peripheral pulses 2+ throughout <Melissa FryeJEANMARIE-C - Last Filed: 10/15/21 11:02> GI Other: soft round, distended, no facial grimace to palpation. <Melissa FryeJEANMARIE-C - Last Filed: 10/15/21 11:02> Neuro General: patient oriented x3 <Melissa Peterson JEANMARIE Frye-C - Last Filed: 10/15/21 11:02> Extrem Other: +1 pitting edema right lower leg, calf to ankle <Melissa FryeJEANMARIE-C - Last Filed: 10/15/21 11:02> Objective Labs and Meds Result diagrams: : 10/09/21 11:16 10/15/21 05:53 <Melissa Peterson JEANMARIE Frye-C - Last Filed: 10/15/21 11:02> Lab results: Laboratory Results - last 24 hr 10/15/21 10/15/21 05:53 05:53 PT 39.2 H INR 3.4 H Sodium 143 Potassium 4.2 Chloride 103 Carbon Dioxide 29 Anion Gap 15 BUN 110 H Creatinine 2.84 H Estim Creat Clear Calc 19.2 Estimated GFR 16 Random Glucose 90 Calcium 8.8 <Melissa Peterson JEANMARIE Frye-C - Last Filed: 10/15/21 11:02> Progress Note: A&P Assessment and plan (1) Acute on chronic right-sided congestive heart failure: Status: Acute <GEOVANNY Britton - Last Filed: 10/15/21 11:02> Assessment and Plan: Hx of HFrEF, Ischemic CMP, mod to severe TR. Admit with leg edema and ascites. Now being treated for acute on chronic right heart failure.? Echo 09/04 shows EF 15-20%, decrease in RV systolic function, mod to severe TR, normally functioning mechanical mitral valve. She is being diuresed with IV Lasix with fluid balance neg 2580cc since admit. Cr had been as high as 3.21 and is 2.84 today. Nephrology is following as well. Still has ascities which she states is unchanged since admit. Leg edema improving. Breathing unlabored, Lungs with few rales right base. No JVD - could be atelectasis. Sat 94% on RA. Instructed on deep inspiration periodically through day. She now has right heart failure, related to her left heart failure. Treatment options are limited and goals of care discussion should be done. At this time, Continue to diurese with IV lasix. Carvedilol dose was reduced yesterday - continue on lower dose at this time. Continue isordil. Ongoing strict I+O monitoring. Close monitoring of electrolytes and kidney function. <GEOVANNY Britton - Last Filed: 10/15/21 11:02> (2) CKD (chronic kidney disease) stage 4, GFR 15-29 ml/min: Status: Acute <GEOVANNY Britton - Last Filed: 10/15/21 11:02> Assessment and Plan: Following with nephrology. <GEOVANNY Britton - Last Filed: 10/15/21 11:02> (3) ALIZA (acute kidney injury): Status: Acute <GEOVANNY Britton - Last Filed: 10/15/21 11:02> (4) Ischemic cardiomyopathy: Status: Acute <GEOVANNY Britton - Last Filed: 10/15/21 11:02> Assessment and Plan: EF 15-20% ( not 10-15 as stated in yesterdays noted). Has ICD in place.? On carvedilol for neurohormonal modulation. Not on tramaine/ arb due to CKD.? Follows with Dr Estrella as outpt <MARGARET BrittonC - Last Filed: 10/15/21 11:02> (5) ICD (implantable cardioverter-defibrillator) in place: Status: Acute <GEOVANNY Britton - Last Filed: 10/15/21 11:02> Assessment and Plan: Hx of mechanical MVR. [place] audible valve click noted on exam. Functioning normally on recent echo. On coumadin and aspirin. INR goal 2.5- 3.5.INR today 3.4 <MARGARET BrittonC - Last Filed: 10/15/21 11:02> (6) Mechanical heart valve present: Status: Acute <GEOVANNY Britton - Last Filed: 10/15/21 11:02> Assessment and Plan: Hx of mechanical MVR. [place] audible valve click noted on exam. Functioning normally on recent echo. On coumadin and aspirin. INR goal 2.5- 3.5. <GEOVANNY Britton - Last Filed: 10/15/21 11:02> (7) Ascites: Status: Acute <GEOVANNY Britton - Last Filed: 10/15/21 11:02> Assessment and Plan: Abdominal ultrasound this admit shows moderate ascities. Diuresing as above. <GEOVANNY Britton - Last Filed: 10/15/21 11:02> (8) Chronic atrial fibrillation: Status: Acute <GEOVANNY Britton - Last Filed: 10/15/21 11:02> Assessment and Plan: Tele shows V paced rhythm, rate 60s. Rate controlled with Carvedilol. On coumadin for anticoagulation. <GEOVANNY Britton - Last Filed: 10/15/21 11:02> Fall Risk Details Current Medications: Current Medications Acetaminophen (Acetaminophen 325 Mg Tablet) 650 mg PO Q6H PRN PRN Reason: Pain, Mild (Pain Scale 1-3) Last Admin: 10/12/21 09:11 Dose: 650 mg Documented by: Artificial Tears (Artificial Tears 15 Ml Drops) 1 drop EYE-BOTH TID NADINE Last Admin: 10/15/21 09:22 Dose: 1 drop Documented by: Aspirin (Aspirin 81 Mg Tab.Chew) 81 mg PO DAILY [facility] Last Admin: 10/15/21 09:21 Dose: 81 mg Documented by: Atorvastatin Calcium (Atorvastatin Calcium 40 Mg Tablet) 40 mg PO DAILY [facility] Last Admin: 10/15/21 09:21 Dose: 40 mg Documented by: Calcium Carbonate (Calcium Carbonate 750 Mg Tab.Chew) 750 mg PO Q6H PRN PRN Reason: Heartburn Last Admin: 10/15/21 00:07 Dose: 750 mg Documented by: Carvedilol (Carvedilol 12.5 Mg Tablet) 12.5 mg PO BIDWM [facility]; Protocol Last Admin: 10/15/21 09:21 Dose: 12.5 mg Documented by: Docusate Sodium (Docusate Sodium 100 Mg Capsule) 200 mg PO BEDTIME [facility] Last Admin: 10/14/21 21:00 Dose: 200 mg Documented by: Ferrous Sulfate (Ferrous Sulfate 324 Mg Tablet.) 324 mg PO BID [facility] Last Admin: 10/15/21 09:21 Dose: 324 mg Documented by: Fluoxetine HCl (Fluoxetine Hcl 20 Mg Capsule) 20 mg PO DAILY [facility] Last Admin: 10/15/21 09:21 Dose: 20 mg Documented by: Furosemide (Furosemide 20 Mg/2 Ml Vial) 60 mg IVPUSH BID@0900,1800 [facility]; Protocol Last Admin: 10/15/21 09:22 Dose: 60 mg Documented by: Hydrocortisone (Hydrocortisone 2.5 % Rectal Cr 30 Gm Tube) 1 appl [place] BID PRN PRN Reason: perianal pain Last Admin: 10/14/21 13:55 Dose: 1 appl Documented by: Isosorbide Dinitrate (Isosorbide Dinitrate 5 Mg Tablet) 5 mg PO BID [facility]; Protocol Last Admin: 10/15/21 09:21 Dose: 5 mg Documented by: Levothyroxine Sodium (Levothyroxine Sodium 150 Mcg Tablet) 150 mcg PO DAILY@0600 [facility] Last Admin: 10/15/21 05:53 Dose: 150 mcg Documented by: Omeprazole (Omeprazole 20 Mg Capsule.) 20 mg PO DAILY@0630 [facility] Last Admin: 10/15/21 05:53 Dose: 20 mg Documented by: Ondansetron HCl (Ondansetron Hcl 4 Mg/2 Ml Vial) 4 mg IVPUSH Q8H PRN PRN Reason: Nausea and Vomiting Pharmacy Consult (Consult Rx Perform Med Rec) 1 each MISCELLANE ONCE PRN PRN Reason: Consult order Pramoxine HCl (Pramoxine Hcl 1 % Rectal Foam 15 Gm) 1 appl [place] BID [facility] Last Admin: 10/15/21 09:22 Dose: 1 appl Documented by: Psyllium Hydrophilic Mucilloid (Psyllium Seed 3.4 Gm Powd.Pack) 3.4 gm PO DAILY [facility] Last Admin: 10/15/21 09:22 Dose: 3.4 gm Documented by: Sodium Chloride (0.9 % Sodium Chloride Flush 3 Ml Syringe) 3 ml IVFLUSH QSHIFT [facility] Last Admin: 10/15/21 09:22 Dose: 3 ml Documented by: Trazodone HCl (Trazodone Hcl 50 Mg Tablet) 50 mg PO DAILY PRN PRN Reason: for insomnia Last Admin: 10/15/21 00:07 Dose: 50 mg Documented by: Warfarin Sodium (Warfarin Sodium 2.5 Mg Tablet) 2.5 mg PO DAILY@1800 [facility] Last Admin: 10/13/21 18:39 Dose: 2.5 mg Documented by: <GEOVANNY Britton - Last Filed: 10/15/21 11:02> Time Spent With Patient Time: Total time spent is greater than 50% in coordination of care (as documented) at patient's floor/unit and/or counseling patient: <GEOVANNY Britton - Last Filed: 10/15/21 11:02> Time with patient: 15 - 24 minutes <GEOVANNY Britton - Last Filed: 10/15/21 11:02> Progress Note: Quality Stroke Does the patient have a stroke diagnosis?: No <GEOVANNY Britton - Last Filed: 10/15/21 11:02> Procedures Date of Service Date of Service: 10/15/21 <GEOVANNY Britton - Last Filed: 10/15/21 11:02>
--- NOTE | 2021-10-15 09:46 | PM.PNNEP ---
Subjective Subjective Date of Service: 10/15/21 Principal diagnosis: Right HF, ALIZA on CKD, Mechanical MVR, CMP Interval history: Events noted Feels a little better Physical Exam Vital Signs: Vital Signs: Last Vital Signs Temp 97.4 F 10/15/21 07:44 Pulse 60 10/15/21 07:44 Resp 18 10/15/21 07:44 BP 113/59 L 10/15/21 07:44 Pulse Ox 94 10/15/21 07:44 BMI result Body Mass Index 23.7 Const: Other: female chronically ill appearing General: cooperative, comfortable, no acute distress, alert and awake Nutritional Appearance: thin Orientation/consciousness: oriented to person and patient oriented x3 Limitations: no limitations HENMT: Other: Unremarkable Head: Yes normal to inspection, Yes normocephalic and Yes atraumatic Ears: external ears normal General nose exam: Normal external nose present Mouth: Normal oral and palatal mucosa present and oropharynx normal Throat: Yes posterior oropharynx normal Eyes: General: appearance normal, both eyes and all related structures Neck: Other: supple Neck: Yes normal visual inspection, Yes supple and Yes no JVD Chest: Chest palpation & inspection: normal inspection of the chest Resp: Other: Dim right lung base Effort & Inspection: normal respiratory effort, able to speak in complete sentences and not labored Auscultation: clear to auscultation bilaterally, no crackles, no rales, no rhonchi, no wheezes and diminished lung sounds Cardio: Other: Prosthetic heart sounds+ Jugular venous distension: no JVD Palpation: normal PMI Rate: regular rate Rhythm: regular rhythm and abnormal rhythm Heart sounds: S1 normal heart sound present, S2 normal heart sound present and Murmur heart sound present diastolic and systolic Peripheral pulses: Peripheral pulses 2+ throughout GI: Other: rounded, distended, no facial grimace to palpation Palpation (GI): Soft to palpation and nontender Auscultation: normal bowel sounds : General: Yes no CVA tenderness Back/Spine/Pelvis: Other: unremarkable Back: no CVA tenderness Skin: General skin exam: no rashes or lesions noted Neuro: General: oriented to person and patient oriented x3 Cranial nerves: Yes CN's II-XII intact bilaterally and Yes Other cranial nerve findings present Motor exam (neuro): 5/5 motor strength present throughout Sensory Exam: No Sensory deficit (Neuro) Extrem: Other: mildly pitting edema from mid calf to ankles, right > Left General: Yes edema (2+ R>L) and Yes pedal edema Psych: Appearance: grossly normal Mental Status: other Objective Data Labs CBC & Chem 7: 10/09/21 11:16 10/15/21 05:53 Labs: Laboratory Results - last 24 hr 10/15/21 10/15/21 05:53 05:53 PT 39.2 H INR 3.4 H Sodium 143 Potassium 4.2 Chloride 103 Carbon Dioxide 29 Anion Gap 15 BUN 110 H Creatinine 2.84 H Estim Creat Clear Calc 19.2 Estimated GFR 16 Random Glucose 90 Calcium 8.8 Procedures Date of Service Date of Service: 10/15/21 Assessment & Plan Assessment and plan (1) Acute on chronic right-sided congestive heart failure: Status: Acute Assessment and Plan: (1) ALIZA (acute kidney injury): ?Status:?Acute (2) CHF (congestive heart failure): ?Status:?Acute (3) CKD (chronic kidney disease) stage 4, GFR 15-29 ml/min: ?Status:?Acute ?Assessment and Plan: stable Scr ALIZA c/w CRS 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 Rate controlled with Carvedilol. On coumadin for anticoagulation. (4) Ascites: Status: Acute Assessment and Plan: Abdominal ultrasound this admit shows moderate ascities. Diuresing as above. (5) Mechanical heart valve present: Status: Acute Assessment and Plan: Hx of mechanical MVR. [place] audible valve click noted on exam. Functioning normally on recent echo. On coumadin and aspirin. INR goal 2.5- 3.5. (6) Ischemic cardiomyopathy: Status: Acute Assessment and Plan: EF 10-15%. Has ICD in place. On carvedilol for neurohormonal modulation. Not on tramaine/ arb due to CKD. Follows with Dr Sameer as outpt (7) ICD (implantable cardioverter-defibrillator) in place: Status: Acute Time Spent With Patient Time: Total time spent is greater than 50% in coordination of care (as documented) at patient's floor/unit and/or counseling patient: Time with patient: 15 - 24 minutes Progress Note: Quality Stroke Does the patient have a stroke diagnosis?: No
[2021-10-15 11:24] VITALS: BP 127/69; PULSE 95; RESP 18; TEMP 36.8; O2SAT 96
--- NOTE | 2021-10-15 14:31 | HO.PM.IMPN ---
Subjective Subjective Date of Service: 10/15/21 Interval History: Being followed for congestive heart failure with reduced EF, patient feeling better this morning denies shortness of breath, no PND no orthopnea, slept well, no abdominal pain, complaining of persistent abdominal distension unchanged for since admit. Review of Systems General no headache, no dizziness, no fever chills.? CVS no chest pain, no palpitation.? Respiratory no cough,no shortness of breath.? Gastrointestinal no nausea, no vomiting, no abdominal pain, no change in abdominal distension Musculoskeletal no pain no urinary frequency or urgency Skin no rash? Yes all other systems are reviewed and are negative Physical Exam Vital Signs: Vital Signs: Last Vital Signs Temp 98.3 F 10/15/21 11:24 Pulse 95 10/15/21 11:24 Resp 18 10/15/21 11:24 BP 127/69 10/15/21 11:24 Pulse Ox 96 10/15/21 11:24 BMI result Body Mass Index 23.7 Gen:? Awake alerttimes 3, no acutedistress Neck: supple, no JVD Lungs:? Clear to auscultation, no respiratory distress, no wheeze no crackles Heart: regular rate and?rhythm, mechanical S1, no murmurs Abd: soft, non-tender, distended, bowel sounds audible Ext:? Significant improvement and bilateral lower extremity edema. Skin: warm/well-perfused Neuro:?alert and oriented x3, no focal findings Psych: appropriate affect Objective Data Active Medications Acetaminophen (Acetaminophen 325 Mg Tablet) 650 mg PO Q6H PRN PRN Reason: Pain, Mild (Pain Scale 1-3) Last Admin: 10/12/21 09:11 Dose: 650 mg Documented by: DMITRI Artificial Tears (Artificial Tears 15 Ml Drops) 1 drop EYE-BOTH TID [facility] Last Admin: 10/15/21 09:22 Dose: 1 drop Documented by: LINDA Aspirin (Aspirin 81 Mg Tab.Chew) 81 mg PO DAILY [facility] Last Admin: 10/15/21 09:21 Dose: 81 mg Documented by: LINDA Atorvastatin Calcium (Atorvastatin Calcium 40 Mg Tablet) 40 mg PO DAILY [facility] Last Admin: 10/15/21 09:21 Dose: 40 mg Documented by: LINDA Calcium Carbonate (Calcium Carbonate 750 Mg Tab.Chew) 750 mg PO Q6H PRN PRN Reason: Heartburn Last Admin: 10/15/21 00:07 Dose: 750 mg Documented by: NANCY Carvedilol (Carvedilol 12.5 Mg Tablet) 12.5 mg PO BIDWM [facility]; Protocol Last Admin: 10/15/21 09:21 Dose: 12.5 mg Documented by: LINDA Docusate Sodium (Docusate Sodium 100 Mg Capsule) 200 mg PO BEDTIME [facility] Last Admin: 10/14/21 21:00 Dose: 200 mg Documented by: DELFINO Ferrous Sulfate (Ferrous Sulfate 324 Mg Tablet.) 324 mg PO BID [facility] Last Admin: 10/15/21 09:21 Dose: 324 mg Documented by: LINDA Fluoxetine HCl (Fluoxetine Hcl 20 Mg Capsule) 20 mg PO DAILY [facility] Last Admin: 10/15/21 09:21 Dose: 20 mg Documented by: LINDA Furosemide (Furosemide 20 Mg/2 Ml Vial) 60 mg IVPUSH BID@0900,1800 [facility]; Protocol Last Admin: 10/15/21 09:22 Dose: 60 mg Documented by: LINDA Hydrocortisone (Hydrocortisone 2.5 % Rectal Cr 30 Gm Tube) 1 appl [place] BID PRN PRN Reason: perianal pain Last Admin: 10/14/21 13:55 Dose: 1 appl Documented by: RM Isosorbide Dinitrate (Isosorbide Dinitrate 5 Mg Tablet) 5 mg PO BID [facility]; Protocol Last Admin: 10/15/21 09:21 Dose: 5 mg Documented by: LINDA Levothyroxine Sodium (Levothyroxine Sodium 150 Mcg Tablet) 150 mcg PO DAILY@0600 [facility] Last Admin: 10/15/21 05:53 Dose: 150 mcg Documented by: NANCY Omeprazole (Omeprazole 20 Mg Capsule.) 20 mg PO DAILY@0630 [facility] Last Admin: 10/15/21 05:53 Dose: 20 mg Documented by: NANCY Ondansetron HCl (Ondansetron Hcl 4 Mg/2 Ml Vial) 4 mg IVPUSH Q8H PRN PRN Reason: Nausea and Vomiting Pharmacy Consult (Consult Rx Perform Med Rec) 1 each MISCELLANE ONCE PRN PRN Reason: Consult order Pramoxine HCl (Pramoxine Hcl 1 % Rectal Foam 15 Gm) 1 appl [place] BID [facility] Last Admin: 12/07/21 09:22 Dose: 1 appl Documented by: LINDA Psyllium Hydrophilic Mucilloid (Psyllium Seed 3.4 Gm Powd.Pack) 3.4 gm PO DAILY [facility] Last Admin: 10/15/21 09:22 Dose: 3.4 gm Documented by: LINDA Sodium Chloride (0.9 % Sodium Chloride Flush 3 Ml Syringe) 3 ml IVFLUSH QSHIFT [facility] Last Admin: 10/15/21 09:22 Dose: 3 ml Documented by: LINDA Trazodone HCl (Trazodone Hcl 50 Mg Tablet) 50 mg PO DAILY PRN PRN Reason: for insomnia Last Admin: 10/15/21 00:07 Dose: 50 mg Documented by: ODRISM Warfarin Sodium (Warfarin Sodium 2.5 Mg Tablet) 2.5 mg PO DAILY@1800 [facility] Last Admin: 10/13/21 18:39 Dose: 2.5 mg Documented by: DMITRI Labs CBC & Chem 7: 10/09/21 11:16 10/15/21 05:53 Labs: Laboratory Results - last 24 hr 10/15/21 10/15/21 05:53 05:53 PT 39.2 H INR 3.4 H Anion Gap 15 Estim Creat Clear Calc 19.2 Estimated GFR 16 Random Glucose 90 Calcium 8.8 Assessment and Plan (1) ICD (implantable cardioverter-defibrillator) in place: Status: Acute (2) CHF (congestive heart failure): Status: Acute (3) Acute on chronic right-sided congestive heart failure: Status: Acute (4) Ascites: Status: Acute Assessment and Plan: 71yo F with HTN, HLD, CAD, biventricular HFrEF s/p AICD, CKD4, mechanical mitral? on warfarin, pHTN, hypothyroidism, retinal detachment, bladder CA, amyloidosis, anxiety, depression admitted with CHF exacerbation # acute/chronic HFrEF ? Likely due to cardiomyopathy, right-sided heart failure , cardiorenal syndrome Feeling significantly better this morning asymptomatic, no shortness of breath, less leg edema is negative 2.5 L since admission, case discussed with Cardiology and Nephrology they recommend to continue furosemide iv 60mg bid. - follow I/O, weights; monitor BNP, BMP, Mg - recent TTE with LVEF 15-20% + decreased RVEF, normally functioning prosthetic mitral valve - continue Isordil, and carvedilol dose lowered to allow diuresis # ascites - no change in abdominal distension, abdominal ultrasound showed moderate ascites, patient asymptomatic, will manage with diuretics # ALIZA/CKD4 due to AA amyloidosis + cardiorenal syndrome - creatinine trending down at baseline, monitor BMP closely while being diuresed, # mechanical mitral valve - resume warfarin INR dropped from 3.7-3.4 today, follow PT INR -?ASA added as per Cardiology # hypothyroidism - continue LT4- increased dose for under-suppressed TSH- recheck TSH in 4-6 wk # HTN - continue Isordil, and carvedilol BP stable # chronic anemia - continue iron supplementation # dyslipidemia - continue statin # mood disorder - continue fluoxetine # external hemorrhoid, seen by General surgery they recommend Sitz baths t.i.d. as well as Calmoseptine for perianal discomfort. Continue Metamucil and stool softener # VTE ppx - warfarin # dispo - PT consult Quality Stroke Does the patient have a stroke diagnosis?: No VTE Prior VTE?: No VTE Risk Level:: Medical - moderate - high VTE Device Contraindication: Treatment Not Indicated VTE Drug Contraindication: N/A - Med Ordered
[2021-10-15 15:30] VITALS: BP 120/67; PULSE 96; RESP 18; TEMP 36.7; O2SAT 98
[2021-10-15] MEDS: Warfarin Sodium 2.5 MG TABLET PO (17:51)
[2021-10-15 19:50] VITALS: BP 126/79; PULSE 94; RESP 18; TEMP 36.9; O2SAT 97
[2021-10-15 20:15] VITALS: PULSE 97
[2021-10-15] MEDS: Docusate Sodium 100 MG CAPSULE 200 MG PO (20:16)
[2021-10-15] MEDS: Hydrocortisone 2.5 % Rectal Cr 30 GM TUBE 1 APPL PR (20:19)
[2021-10-15 23:29] VITALS: BP 112/62; PULSE 97; RESP 18; TEMP 37.2; O2SAT 97
[2021-10-16 03:23] VITALS: BP 105/65; PULSE 98; RESP 18; TEMP 36.8; O2SAT 92
[2021-10-16] MEDS: Levothyroxine Sodium 150 MCG TABLET PO (06:28)
[2021-10-16] MEDS: Omeprazole 20 MG CAPSULE.DR PO (06:28)
[2021-10-16 06:32] LABS: Prothrombin Time 35.2 SEC (9.9-13.0)
[2021-10-16 06:47] LABS: Anion Gap 16 (12-20); Blood Urea Nitrogen 110 mg/dL (9-16); Calcium 8.7 mg/dL (8.4-10.2); Carbon Dioxide 30 mmol/L (22-29); Chloride 102 mmol/L (96-108); Creatinine Clr Calc Pharmacy 20.5; Estimated Glomerular Filt Rate 18; Glucose Random 94 mg/dL (60-115); Potassium 4.5 mmol/L (3.3-5.1); Sodium 143 mmol/L (135-145)
[2021-10-16 07:32] VITALS: BP 112/71; PULSE 98; RESP 17; TEMP 36.6; O2SAT 95
[2021-10-16] MEDS: 0.9 % Sodium Chloride Flush 3 ML SYRINGE IVFLUSH (09:29)
[2021-10-16] MEDS: Furosemide 20 MG/2 ML VIAL 60 MG IVPUSH (09:30)
[2021-10-16] MEDS: Atorvastatin Calcium 40 MG TABLET PO (09:30)
[2021-10-16] MEDS: Aspirin 81 MG TAB.CHEW PO (09:31)
[2021-10-16] MEDS: carvediloL 12.5 MG TABLET PO (09:31)
[2021-10-16] MEDS: Ferrous Sulfate 324 MG TABLET.DR PO (09:31)
[2021-10-16] MEDS: Isosorbide Dinitrate 5 MG TABLET PO (09:31)
[2021-10-16] MEDS: FLUoxetine HCl 20 MG CAPSULE PO (09:31)
[2021-10-16] MEDS: Artificial Tears 15 ML DROPS 1 DROP EYE-BOTH (09:39)
[2021-10-16] MEDS: Hydrocortisone 2.5 % Rectal Cr 30 GM TUBE 1 APPL PR (09:39)
--- NOTE | 2021-10-16 11:08 | P.PNNP_ITS ---
Subjective Subjective Date of Service: 10/16/21 Principal diagnosis: Right HF, ALIZA on CKD, Mechanical MVR, CMP Interval history: Events noted Physical Exam Vital Signs: Vital Signs: Last Vital Signs Temp 97.8 F 10/16/21 07:32 Pulse 98 10/16/21 07:32 Resp 17 10/16/21 07:32 BP 112/71 10/16/21 07:32 Pulse Ox 95 10/16/21 07:32 BMI result Body Mass Index 23.7 Const: Other: female chronically ill appearing General: cooperative, comfortable, no acute distress, alert and awake Nutritional Appearance: thin Orientation/consciousness: oriented to person and patient oriented x3 Limitations: no limitations HENMT: Other: Unremarkable Head: Yes normal to inspection, Yes normocephalic and Yes atraumatic Ears: external ears normal General nose exam: Normal external nose present Mouth: Normal oral and palatal mucosa present and oropharynx normal Throat: Yes posterior oropharynx normal Eyes: General: appearance normal, both eyes and all related structures Neck: Other: supple Neck: Yes normal visual inspection, Yes supple and Yes no JVD Chest: Chest palpation & inspection: normal inspection of the chest Resp: Other: Dim right lung base Effort & Inspection: normal respiratory effort, able to speak in complete sentences and not labored Auscultation: clear to auscultation bilaterally, no crackles, no rales, no rhonchi, no wheezes and diminished lung sounds Cardio: Other: Prosthetic heart sounds+ Jugular venous distension: no JVD Palpation: normal PMI Rate: regular rate Rhythm: regular rhythm and abnormal rhythm Heart sounds: S1 normal heart sound present, S2 normal heart sound present and Murmur heart sound present diastolic and systolic Peripheral pulses: Peripheral pulses 2+ throughout GI: Other: rounded, distended, no facial grimace to palpation Palpation (GI): Soft to palpation and nontender Auscultation: normal bowel sounds : General: Yes no CVA tenderness Back/Spine/Pelvis: Other: unremarkable Back: no CVA tenderness Skin: General skin exam: no rashes or lesions noted Neuro: General: oriented to person and patient oriented x3 Cranial nerves: Yes CN's II-XII intact bilaterally and Yes Other cranial nerve findings present Motor exam (neuro): 5/5 motor strength present throughout Sensory Exam: No Sensory deficit (Neuro) Extrem: Other: mildly pitting edema from mid calf to ankles, right > Left General: Yes edema (2+ R>L) and Yes pedal edema Psych: Appearance: grossly normal Mental Status: other Objective Data Labs CBC & Chem 7: 10/09/21 11:16 10/16/21 05:59 Labs: Laboratory Results - last 24 hr 10/16/21 10/16/21 05:59 05:59 PT 35.2 H INR 3.0 H Sodium 143 Potassium 4.5 Chloride 102 Carbon Dioxide 30 H Anion Gap 16 BUN 110 H Creatinine 2.66 H Estim Creat Clear Calc 20.5 Estimated GFR 18 Random Glucose 94 Calcium 8.7 Procedures Date of Service Date of Service: 10/16/21 Assessment & Plan Assessment and plan (1) Acute on chronic right-sided congestive heart failure: Status: Acute Assessment and Plan: (1) ALIZA (acute kidney injury): ?Status:?Acute (2) CHF (congestive heart failure): ?Status:?Acute (3) CKD (chronic kidney disease) stage 4, GFR 15-29 ml/min: ?Status:?Acute ?Assessment and Plan: stable Scr ALIZA c/w CRS 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 Rate controlled with Carvedilol. On coumadin for anticoagulation. (4) Ascites: Status: Acute Assessment and Plan: Abdominal ultrasound this admit shows moderate ascities. Diuresing as above. (5) Mechanical heart valve present: Status: Acute Assessment and Plan: Hx of mechanical MVR. Marshall audible valve click noted on exam. Functioning normally on recent echo. On coumadin and aspirin. INR goal 2.5- 3.5. (6) Ischemic cardiomyopathy: Status: Acute Assessment and Plan: EF 10-15%. Has ICD in place. On carvedilol for neurohormonal modulation. Not on tramaine/ arb due to CKD. Follows with Dr Estrella as outpt (7) ICD (implantable cardioverter-defibrillator) in place: Status: Acute Time Spent With Patient Time: Total time spent is greater than 50% in coordination of care (as documented) at patient's floor/unit and/or counseling patient: Time with patient: 15 - 24 minutes Progress Note: Quality Stroke Does the patient have a stroke diagnosis?: No
[2021-10-16 11:39] VITALS: BP 100/66; PULSE 98; RESP 18; TEMP 37.2; O2SAT 99
--- NOTE | 2021-10-16 11:43 | P.DS_ITS ---
DS: Providers Provider Date of Service: 10/16/21 Date of admission: 10/09/21 15:34 Primary care physician: Dakotah Jin MD Consults: 10/09/21 16:20 Consult to Cardiology Routine Consulting Provider: Neeraj Alexander Reason for consultation: chf Has provider been notified: No 10/10/21 09:48 Consult to Nephrology Routine Consulting Provider: Finesse Hua Reason for consultation: ckd Has provider been notified: No 10/13/21 19:03 Consult to General Surgery Routine Consulting Provider: [facility] [place] General Surgeons Reason for consultation: painful hemorrhoids DS: Diagnosis Discharge Diagnosis (1) Acute on chronic right-sided congestive heart failure: Status: Acute (2) CKD (chronic kidney disease) stage 4, GFR 15-29 ml/min: Status: Acute (3) Chronic atrial fibrillation: Status: Acute (4) Ascites: Status: Acute (5) Mechanical heart valve present: Status: Acute (6) Ischemic cardiomyopathy: Status: Acute (7) ICD (implantable cardioverter-defibrillator) in place: Status: Acute DS: Summary Hospital Course Hospital Course: Chief Complaint: Shortness of breath 71-year-old female patient with past medical history significant for hypertension, hyperlipidemia, coronary artery disease, CHF with reduced EF status post AICD pacemaker, chronic kidney disease, hypothyroidism pulmonary hypertension is status post mechanical mitral and aortic valve on Coumadin, history of amyloidosis anxiety depression presented to [facility] due to symptoms of bilateral leg swelling, abdominal distention of several weeks duration and shortness of breath, patient denies associated chest pain, she chronically sleeps on her side, patient admits compliance with low-salt diet and home medication, she denies fever chills no recent bout of nausea vomiting diarrhea, patient was recently worked up for abdominal distension an abdominal ultrasound was obtained on 09/20 that showed mild ascites but since daughter noticed worsening abdominal distension and leg edema, she called ambulance and sent patient to emergency room, in the ER patient was noted to have elevated BNP 1374, troponin 866,EKG showed junctional rhythm patient treated in the emergency room with IV Bumex and now being admitted for continued monitoring and treatment of worsening CHF likely worsening right-sided heart failure. Hospital course 71yo F with HTN, HLD, CAD, biventricular HFrEF s/p AICD, CKD4, mechanical mitral? on warfarin, pHTN, hypothyroidism, retinal detachment, bladder CA, amyloidosis, anxiety, depression admitted with CHF exacerbation Acute on chronic HFrEF likely due to cardiomyopathy, right-sided heart failure , cardiorenal syndrome, moderate to severe tricuspid regurgitation patient aggressively treated with IV diuretics, she responded well, Renal function returned back to baseline with creatinine of 2.6, patient was followed closely by mechanical engineering professor Dr. Winters and Nephrology patient does not meet indication for dialysis at this time, her symptoms of shortness of breath and leg edema has resolved she continued to have persistent abdominal distention due to ascites, her electrolytes remained stable, patient is being discharged home on Lasix 60 mg by mouth twice daily her dose of Coreg has been reduced to 12.5 mg b.i.d. to allow for diuresis, since patient is hemodynamically stable she is being discharged home today, her last echo showed LVEF 15-20% + decreased RVEF, normally functioning prosthetic mitral valve. ALIZA/CKD4 due to AA amyloidosis + cardiorenal syndrome creatinine returned to baseline, followed by Nephrology no indication for hemodialysis Mechanical mitral valve continue warfarin INR goal 2.5-3 point Hypothyroidism noted to have elevated TSH recommend to check TSH in 4 weeks continue current dose HTN continue Isordil and Coreg Chronic anemia continue iron supplementation dyslipidemia continue statin mood disorder continue fluoxetine external hemorrhoid, seen by General surgery they recommend Sitz baths t.i.d. as well as Calmoseptine for perianal discomfort, Continue Metamucil and stool softener Time Spent with Patient Time attestation: Total time spent providing and/or coordinating discharge services: Discharge coordination time: Greater than 30 minutes Quality: Stroke Does the patient have a stroke diagnosis?: No Physical Exam Vital Signs: Vital Signs: Last Vital Signs Temp 98.9 F 10/16/21 11:39 Pulse 98 10/16/21 11:39 Resp 18 10/16/21 11:39 BP 100/66 10/16/21 11:39 Pulse Ox 99 10/16/21 11:39 BMI result Body Mass Index 23.7 Gen:? Awake alerttimes 3, no acutedistress Neck: supple, no JVD Lungs:? Clear to auscultation, no respiratory distress, no wheeze no crackles Heart: regular rate and?rhythm, mechanical S1, no murmurs Abd: soft, non-tender, distended, bowel sounds audible Ext:? Significant improvement and bilateral lower extremity edema. Skin: warm/well-perfused Neuro:?alert and oriented x3, no focal findings Psych: appropriate affect ? DS: Data Data Completed and Pending Labs on day of discharge: Laboratory Results - last 24 hr 10/16/21 10/16/21 05:59 05:59 PT 35.2 H INR 3.0 H Sodium 143 Potassium 4.5 Chloride 102 Carbon Dioxide 30 H Anion Gap 16 BUN 110 H Creatinine 2.66 H Estim Creat Clear Calc 20.5 Estimated GFR 18 Random Glucose 94 Calcium 8.7 Discharge Plan Discharge Patient Disposition: Home, Self-Care Discharge Diagnosis: Acute on chronic heart failure with reduced EF Acute on chronic kidney disease stage 4 Ascites Referrals: Po,Dakotah Ahumada MD [Primary Care Provider] - 1 Week Discharge Medications: New carvedilol 12.5 mg Tablet 12.5 mg PO BIDWM Qty: 60 RF: 0 hydrocortisone [Proctozone-HC] 2.5 % Cream With Perineal Applicator 1 appl [place] BID PRN (Reason: perianal pain) Qty: 40 RF: 0 furosemide [Lasix] 40 mg tablet 60 mg PO BID Qty: 90 RF: 0 Continued aspirin 81 mg tablet,delayed release (DR/EC) 81 mg PO DAILY Qty: 90 RF: 3 isosorbide dinitrate 5 mg tablet 5 mg PO BID Qty: 180 RF: 3 omeprazole 20 mg capsule,delayed release(DR/EC) 20 mg PO DAILY Qty: 90 RF: 2 rosuvastatin 10 mg tablet 10 mg PO DAILY Qty: 90 RF: 2 (DME) prosthetics Kit See Rx Instructions .ROUTE .MEDSUPPLY Qty: 1 RF: 0 trazodone 50 mg tablet 50 mg PO DAILY PRN (Reason: for insomnia) Qty: 90 RF: 1 levothyroxine 137 mcg tablet 137 mcg PO QAM Qty: 90 RF: 3 (DME) JUXTA LITe compression See Rx Instructions .Route .MEDSUPPLY Qty: 2 RF: 0 docusate sodium 100 mg capsule 200 mg PO BEDTIME RF: 0 (DME) walker Misc See Rx Instructions .Route Qty: 1 RF: 0 fluoxetine 20 mg capsule 20 mg PO DAILY 30 Days Qty: 30 RF: 2 ferrous sulfate 324 mg (65 mg iron) tablet,delayed release (DR/EC) 324 mg PO BID RF: 3 (DME) occular prosthetic. See Rx Instructions .Route .MEDSUPPLY Qty: 1 RF: 0 potassium chloride [Klor-Con M20] 20 mEq tablet,ER particles/crystals 20 meq PO Q48H RF: 0 calcium 750 mg PO DAILY RF: 0 artifi.tears(hypromellose)(PF) 0.3 % drops 1 drp ophthalmic (eye) TID RF: 0 hydrocortisone-pramoxine 2.5-1 % cream 1 appl [place] BID-TID PRN (Reason: itching) Qty: 30 RF: 0 Hemorrhoidal (witch jose) 50 % pads, medicated 1 pad topical BID-TID PRN (Reason: skin irritation) Qty: 100 RF: 0 PreserVision AREDS-2 [id number] ip-[id number]-mg capsule 1 tab PO BID RF: 0 acetaminophen [Tylenol] 325 mg capsule 325 mg PO QID PRN (Reason: Pain) RF: 0 ascorbic acid (vitamin C) 500 mg capsule, extended release 500 mg PO BID Qty: 60 RF: 5 warfarin 2.5 mg tablet 2.5 mg PO DAILY RF: 0 Discontinued carvedilol [Coreg] 25 mg tablet 25 mg PO BIDWM 90 Days Qty: 180 RF: 3 furosemide 40 mg Tablet 40 mg PO BID@0900,1800 Qty: 60 RF: 0 Discharge Orders: Discharge Order (Routine); Ordered 10/16/21 Ordered By: Reny Lao Diet: low fat, low cholesterol Activity on Discharge: As tolerated Stand Alone Forms: Patient Portal Discharge page Care Plan Goals: Congestive heart failure, follow low-salt diet and have close outpatient follow- up with mechanical engineering professor. In regard to hemorrhoids can use Sitz bath twice daily, regular rise bowel movement avoid straining and constipation, use rectal cream as prescribed Health Concerns: Take all medications as above, follow PT INR closely with INR goal 2.5-3.5 Plan of Treatment: Outpatient follow-up with Nephrology and mechanical engineering professor Dr. Alexander in next 2- 3 weeks, close outpatient follow-up with PCP in 1 week Assessment: As above
[2021-10-16 13:14] LABS: B Type Natriuretic Peptide 1375 pg/mL (<100)
--- NOTE | 2021-10-16 13:23 | MHC.CM.PN ---
IMM 10/16/21 Female 71 DX HF Per MD rounds discharge is planned for today. [facility] will resume SN and PT services. The patients dtr has been notified of the discharge. She will provide transportation home.
--- NOTE | 2021-10-16 15:18 | P.PNCA_ITS ---
Subjective Subjective Date of Service: 10/16/21 Principal diagnosis: Right HF, ALIZA on CKD, Mechanical MVR, CMP Interval history: Seen examined at bedside. I had a detailed discussion with her and her daughter yesterday about goals of care. She is quite upset about it because I discussed about palliative care/hospice. Physical Exam Vital Signs: Last Vital Signs Temp 98.9 F 10/16/21 11:39 Pulse 98 10/16/21 11:39 Resp 18 10/16/21 11:39 BP 100/66 10/16/21 11:39 Pulse Ox 99 10/16/21 11:39 BMI result Body Mass Index 23.7 GENERAL APPEARANCE: in no acute distress, depressed. NECK: no carotid bruit, + jugular venous distention. Prominent V-wave. SKIN: no suspicious lesions, warm and dry. HEART: Mechanical 1st heart sound. CT sternal holosystolic murmur. LUNGS: clear to auscultation bilaterally. ABDOMEN: soft, nontender. Nondistended. EXTREMITIES: 1+ edema at ankles. PERIPHERAL PULSES: equal. NEUROLOGIC: No gross deficits, AAO X 3 Objective Labs and Meds Result diagrams: 10/09/21 11:16 10/16/21 05:59 Lab results: Laboratory Results - last 24 hr 10/16/21 10/16/21 10/16/21 05:59 05:59 12:40 PT 35.2 H INR 3.0 H Sodium 143 Potassium 4.5 Chloride 102 Carbon Dioxide 30 H Anion Gap 16 BUN 110 H Creatinine 2.66 H Estim Creat Clear Calc 20.5 Estimated GFR 18 Random Glucose 94 Calcium 8.7 B-Natriuretic Peptide 1375 H Progress Note: A&P Assessment and plan (1) Ischemic cardiomyopathy: Status: Acute (2) Tricuspid regurgitation: Status: Acute (3) Acute on chronic right-sided congestive heart failure: Status: Acute (4) ALIZA (acute kidney injury): Status: Acute Assessment and Plan: 71 year old female with mechanical MVR and cardiomyopathy with EF 10-15% who has right sided heart faiure likely due to left sided failure. continue diuresis. Coreg dose is decreased to half. We will follow along. Fall Risk Details Current Medications: Current Medications Acetaminophen (Acetaminophen 325 Mg Tablet) 650 mg PO Q6H PRN PRN Reason: Pain, Mild (Pain Scale 1-3) Last Admin: 10/12/21 09:11 Dose: 650 mg Documented by: Artificial Tears (Artificial Tears 15 Ml Drops) 1 drop EYE-BOTH TID [facility] Last Admin: 10/16/21 09:39 Dose: 1 drop Documented by: Aspirin (Aspirin 81 Mg Tab.Chew) 81 mg PO DAILY [facility] Last Admin: 10/16/21 09:31 Dose: 81 mg Documented by: Atorvastatin Calcium (Atorvastatin Calcium 40 Mg Tablet) 40 mg PO DAILY [facility] Last Admin: 10/16/21 09:30 Dose: 40 mg Documented by: Calcium Carbonate (Calcium Carbonate 750 Mg Tab.Chew) 750 mg PO Q6H PRN PRN Reason: Heartburn Last Admin: 10/15/21 00:07 Dose: 750 mg Documented by: Carvedilol (Carvedilol 12.5 Mg Tablet) 12.5 mg PO BIDWM [facility]; Protocol Last Admin: 10/16/21 09:31 Dose: 12.5 mg Documented by: Docusate Sodium (Docusate Sodium 100 Mg Capsule) 200 mg PO BEDTIME [facility] Last Admin: 10/15/21 20:16 Dose: 200 mg Documented by: Ferrous Sulfate (Ferrous Sulfate 324 Mg Tablet.) 324 mg PO BID [facility] Last Admin: 10/16/21 09:31 Dose: 324 mg Documented by: Fluoxetine HCl (Fluoxetine Hcl 20 Mg Capsule) 20 mg PO DAILY [facility] Last Admin: 10/16/21 09:31 Dose: 20 mg Documented by: Furosemide (Furosemide 20 Mg/2 Ml Vial) 60 mg IVPUSH BID@0900,1800 [facility]; Protocol Last Admin: 10/16/21 09:30 Dose: 60 mg Documented by: Hydrocortisone (Hydrocortisone 2.5 % Rectal Cr 30 Gm Tube) 1 appl [place] BID PRN PRN Reason: perianal pain Last Admin: 10/16/21 09:39 Dose: 1 appl Documented by: Isosorbide Dinitrate (Isosorbide Dinitrate 5 Mg Tablet) 5 mg PO BID [facility]; Protocol Last Admin: 10/16/21 09:31 Dose: 5 mg Documented by: Levothyroxine Sodium (Levothyroxine Sodium 150 Mcg Tablet) 150 mcg PO DAILY@0600 [facility] Last Admin: 10/16/21 06:28 Dose: 150 mcg Documented by: Omeprazole (Omeprazole 20 Mg Capsule.) 20 mg PO DAILY@0630 [facility] Last Admin: 10/16/21 06:28 Dose: 20 mg Documented by: Ondansetron HCl (Ondansetron Hcl 4 Mg/2 Ml Vial) 4 mg IVPUSH Q8H PRN PRN Reason: Nausea and Vomiting Pharmacy Consult (Consult Rx Perform Med Rec) 1 each MISCELLANE ONCE PRN PRN Reason: Consult order Pramoxine HCl (Pramoxine Hcl 1 % Rectal Foam 15 Gm) 1 appl [place] BID [facility] Last Admin: 10/16/21 14:49 Dose: Not Given Documented by: Psyllium Hydrophilic Mucilloid (Psyllium Seed 3.4 Gm Powd.Pack) 3.4 gm PO DAILY [facility] Last Admin: 10/16/21 09:40 Dose: 3.4 gm Documented by: Sodium Chloride (0.9 % Sodium Chloride Flush 3 Ml Syringe) 3 ml IVFLUSH QSHIFT [facility] Last Admin: 10/16/21 09:29 Dose: 3 ml Documented by: Trazodone HCl (Trazodone Hcl 50 Mg Tablet) 50 mg PO DAILY PRN PRN Reason: for insomnia Last Admin: 10/15/21 20:18 Dose: 50 mg Documented by: Warfarin Sodium (Warfarin Sodium 2.5 Mg Tablet) 2.5 mg PO DAILY@1800 [facility] Last Admin: 10/15/21 17:51 Dose: 2.5 mg Documented by: Time Spent With Patient Time: Total time spent is greater than 50% in coordination of care (as documented) at patient's floor/unit and/or counseling patient: Time with patient: 25 - 35 minutes Progress Note: Quality Stroke Does the patient have a stroke diagnosis?: No Procedures Date of Service Date of Service: 10/16/21
== END 2021-10-16 15:57 | disposition home or self-care (01) | DRG 291 ==
LOC: HO.ED 12:59 → HO.EDOVER 15:43 → HO.IMC 18:09
PROVIDERS: Family Medicine; Internal Medicine Nephrology; Admitting Provider Hospitalist; Emergency Provider Emergency Medicine; PCP Internal Medicine; Visit Provider Hospitalist
DX: I13.0 Hypertensive heart and chronic kidney disease with heart failure and stage 1 through stage 4 chronic kidney disease, or unspecified chronic kidney disease (principal); I50.23 Acute on chronic systolic (congestive) heart failure; N17.9 Acute kidney failure, unspecified; I48.20 Chronic atrial fibrillation, unspecified; N18.4 Chronic kidney disease, stage 4 (severe); E85.4 Organ-limited amyloidosis; I50.813 Acute on chronic right heart failure; Z20.822 Contact with and (suspected) exposure to COVID-19; E03.9 Hypothyroidism, unspecified; K64.5 Perianal venous thrombosis; D63.1 Anemia in chronic kidney disease; I25.5 Ischemic cardiomyopathy; I07.1 Rheumatic tricuspid insufficiency; N08 Glomerular disorders in diseases classified elsewhere; F39 Unspecified mood [affective] disorder; E78.5 Hyperlipidemia, unspecified; Z95.2 Presence of prosthetic heart valve; Z95.810 Presence of automatic (implantable) cardiac defibrillator; Z79.01 Long term (current) use of anticoagulants; Z79.890 Hormone replacement therapy; Z79.899 Other long term (current) drug therapy
CPT/HCPCS: 36415; 71045; 76705; 80048; 80053; 81001; 83735; 83880; 84156; 84300; 84443; 84484; 85025; 85610; 87635; 93005; 96374; 97110; 97116; 97162; 99285; J1940

== ENCOUNTER → 2021-10-17 10:45 | Outpatient (BNVA) | payer MEDICARE, SELFPAY | PROVIDERS: PCP Internal Medicine; Visit Provider Internal Medicine | DX: Z95.2 Presence of prosthetic heart valve (principal) | CPT/HCPCS: Q3014 ==

== ENCOUNTER 2021-10-21 09:06 | Inpatient (IN) | payer MEDICARE, SELFPAY ==
--- NOTE | ~2021-10-21 | XR_ITS ---
EXAMINATION: XR HAND, LEFT CLINICAL INFORMATION: Pain and swelling left hand COMPARISON: None TECHNIQUE: PA, lateral, and oblique views of the left hand. FINDINGS: Mild diffuse osteopenia. No fracture or dislocation. There are degenerative changes with joint space narrowing and osteophytosis of the first metacarpophalangeal joint, first carpometacarpal joint, and some of the interphalangeal joint spaces. There is mild dorsal soft tissue swelling. XR/XR hand LT 2V IMPRESSION: Mild dorsal soft tissue swelling but no acute osseous abnormality seen. Osteopenia and multifocal osteoarthritis as described above.
--- NOTE | ~2021-10-21 | CT_ITS ---
EXAMINATION: CT WRIST WITHOUT CONTRAST, LEFT CLINICAL INFORMATION: Cellulitis. COMPARISON: XR left hand 10/21/2021. TECHNIQUE: Helical scanning was performed of the left wrist and proximal hand with submillimeter collimation in the axial plane with multiplanar 2-D reconstructions. This CT examination was performed using dose optimization techniques as appropriate, variously including the following: *Automated exposure control *Adjustment of mA and/or kV according to patient size (this includes techniques or standardized protocols for targeted exams where dose is matched to indication/reason for exam; i.e. extremities or head) *Use of iterative reconstruction technique DLP: 87 mGy-cm FINDINGS: The examination is suboptimal. There is a significant amount of quantum mottle artifact which is likely related to scanning with the hand positioned to the patient's side. There appears to be diffuse soft tissue swelling, particularly on the dorsum of the wrist. There is probable subcutaneous edema which is not well-defined. There is no discrete loculated fluid collection. There is no apparent air in the soft tissues. There are no apparent bony destructive changes to suggest osteomyelitis. There is scapholunate dissociation. There is mild osteoarthritis of the triscaphe joint. There is moderate osteoarthritis of the first CMC joint. There is mild osteoarthritis of the second CMC joint. There is moderate osteoarthritis of the first MCP joint. CT/CT wrist LT wo con IMPRESSION: 1. Nonspecific soft tissue swelling/edema on the dorsum of the wrist/hand. No discrete fluid collection to suggest an abscess. 2. No CT evidence of osteomyelitis. 3. Osteoarthritis involving multiple joints as described above.
[2021-10-21 10:31] VITALS: BP 95/51; PULSE 60; RESP 16; TEMP 36.4; O2SAT 95; BMI 19.9
--- NOTE | 2021-10-21 10:38 | ED.EXTPRO ---
HPI - Extremity Problem General Chief complaint: Extremity Problem <EMILIANA Lindsey Last Filed: 10/21/21 12:28> Stated complaint: pain & swelling L hand <EMILIANA Lindsey Last Filed: 10/21/21 12:28> Time Seen by Provider: 10/21/21 10:38 <EMILIANA Lindsey Last Filed: 10/21/21 12:28> Source: patient <EMILIANA Lindsey Last Filed: 10/21/21 12:28> Mode of arrival: ambulatory <EMILIANA Lindsey Last Filed: 10/21/21 12:28> Limitations: no limitations <EMILIANA Lindsey Last Filed: 10/21/21 12:28> History of Present Illness HPI Narrative: 71-year-old female past medical history significant for chronic heart failure with reduced ejection fraction and diastolic dysfunction, amyloidosis, anemia, anxiety, depression, atrial fibrillation, CKD, heart disease, hypertension, ischemic cardiomyopathy presents to the emergency department with pain, swelling, warmth and redness to the left hand/wrist, patient tells me that this began on October 09, 2021 when she came into the hospital, she tells me that a film or videotape editor put an IV in to her wrist, and it infiltrated, since then she has been having pain and swelling to the site. She was recently put on Keflex, today is her 2nd day, and she has noted no relief, and tells me that it continues to get worse. Patient denies fevers and chills at home. She denies chest pain, shortness of breath, nausea, vomiting, abdominal pain, weakness, dizziness, changes in vision, headache. <EMILIANA Lindsey Last Filed: 10/21/21 12:28> MD Complaint: joint swelling and joint paint <EMILIANA Lindsey Last Filed: 10/21/21 12:28> Onset (ago): day(s) (11) <EMILIANA Lindsey Last Filed: 10/21/21 12:28> Pain Consistency: constant <EMILIANA Lindsey Last Filed: 10/21/21 12:28> Location: left <EMILIANA Lindsey - Last Filed: 10/21/21 12:28> Severity scale (1-10): 10 <EMILIANA Lindsey - Last Filed: 10/21/21 12:28> Quality: burning and constant <EMILIANA Lindsey - Last Filed: 10/21/21 12:28> Radiation: none <EMILIANA Lindsey - Last Filed: 10/21/21 12:28> Relieving factors: immobilization and elevation <EMILIANA Lindsey - Last Filed: 10/21/21 12:28> Exacerbating factors: range of motion <EMILIANA Lindsey - Last Filed: 10/21/21 12:28> Associated symptoms: denies other symptoms <EMILIANA Lindsey - Last Filed: 10/21/21 12:28> Related Data Home medications: Home Medications Medication Instructions Recorded Confirmed acetaminophen 325 mg capsule 325 mg PO QID PRN 08/06/20 10/17/21 (Tylenol) vit C 250 mg-vit E 90 mg-zinc 40 1 tab PO BID 08/06/20 10/17/21 mg-copper 1 [id number] capsule (PreserVision AREDS-2) potassium chloride 20 mEq 20 meq PO Q48H 06/19/21 10/17/21 tablet,extended release(part/cryst) (Klor-Con M) docusate sodium 100 mg capsule 200 mg PO BEDTIME 08/09/21 10/17/21 artifi.tears(hypromellose)(PF) 0.3 1 drp OPHTHALMIC (EYE) TID 09/03/21 10/17/21 % eye drops warfarin 2.5 mg tablet 2.5 mg PO DAILY 09/26/21 10/17/21 calcium 750 mg PO DAILY 10/09/21 10/17/21 furosemide 40 mg tablet (Lasix) 60 mg PO BID@0800,1400 10/21/21 10/21/21 trazodone 50 mg tablet 50 mg PO BEDTIME PRN 10/21/21 Previous Rx's Medication Instructions Recorded aspirin 81 mg tablet,delayed 81 mg PO DAILY #90 tab 09/17/20 release ascorbic acid (vitamin C) 500 mg 500 mg PO BID #60 cap 01/03/21 capsule,extended release isosorbide dinitrate 5 mg tablet 5 mg PO BID #180 tab 02/28/21 omeprazole 20 mg capsule,delayed 20 mg PO DAILY #90 cap 04/26/21 release rosuvastatin 10 mg tablet 10 mg PO DAILY #90 tab 05/16/21 prosthetics #1 ea 05/23/21 levothyroxine 137 mcg tablet 137 mcg PO QAM #90 tab 07/26/21 JUXTA LITe compression #2 ea 07/31/21 walker #1 ea 08/22/21 fluoxetine 20 mg capsule 20 mg PO DAILY 30 Days #30 cap 09/18/21 witch jose 50 % topical pads 1 pad TOPICAL BID-TID PRN #100 ea 09/19/21 (Hemorrhoidal (witch jose)) ferrous sulfate 324 mg (65 mg 324 mg PO BID tab 10/08/21 iron) tablet,delayed release occular prosthetic. #1 ea 10/08/21 carvedilol 12.5 mg tablet 12.5 mg PO BIDWM #60 tab 10/16/21 hydrocortisone 2.5 % topical cream 1 appl NC BID PRN #40 g 10/16/21 with perineal applicator (Proctozone-HC) <EMILIANA Lindsey - Last Filed: 10/21/21 12:28> Allergies/Adverse reactions: Allergies Allergy/AdvReac Type Severity Reaction Status Date / Time TAPE,PAPER Allergy Unknown RASH TO Uncoded 10/17/21 10:46 PAPER TAPE <EMILIANA Lindsey - Last Filed: 10/21/21 12:28> Review of Systems Review of Systems: Constitutional : No Weight loss, No Fever, No Chills, No Fatigue, No Malaise ENT/Mouth : No sore throat, No Rhinorrhea Eyes: No Eye Pain, No Swelling, No Redness Cardiovascular : No Chest Pain, No SOB, No Dyspnea on Exertion, No Orthopnea, No Edema, No Palpitations Respiratory : No Cough, No Sputum, No Wheezing Gastrointestinal : No Nausea, No Vomiting, No Diarrhea, No Constipation, No abdominal Pain, No Hematochezia, No Melena Genitourinary : No Dysuria, No Urinary Frequency, No Hematuria, Musculoskeletal : + joint pain, No Myalgias, + Joint Swelling Skin : No Skin Lesions, No rash Neuro : No Weakness, No Numbness, No Dizziness, No Headache Psych : No Anxiety/Panic, No Depression All other systems reviewed and are negative <EMILIANA Lindsey - Last Filed: 10/21/21 12:28> Yes all other systems are reviewed and are negative <EMILIANA Lindsey - Last Filed: 10/21/21 12:28> FOR[facility]LY [facility] Past Medical History Attestation statement: The following information was validated with the patient. <EMILIANA Lindsey - Last Filed: 10/21/21 12:28> Source: old records reviewed and nursing notes reviewed <EMILIANA Lindsey - Last Filed: 10/21/21 12:28> Medical History: Medical History Acute on chronic heart failure with reduced ejection fraction and diastolic dysfunction Amyloidosis Amyloidosis Anemia Anemia Anxiety and depression Arthritis Bladder hypertonicity CHF (congestive heart failure) Chronic atrial fibrillation Chronic HFrEF (heart failure with reduced ejection fraction) Chronic kidney disease (CKD) stage G4/A1, severely decreased glomerular filtration rate (GFR) between 15-29 mL/min/1.73 square meter and albuminuria creatinine ratio less than 30 mg/g CKD (chronic kidney disease) stage 4, GFR 15-29 ml/min Detached retina Gout Heart disease Hemorrhoids with complication History of breast cancer History of breast cancer HTN (hypertension) Hypercholesterolemia Hypothyroid ICD (implantable cardioverter-defibrillator) in place Ischemic cardiomyopathy Kidney disease Nephrolithiasis Osteoarthritis Overweight (BMI 25.0-29.9) Pulmonary hypertension Thumb tendonitis Tricuspid regurgitation Urinary incontinence <EMILIANA Lindsey - Last Filed: 10/21/21 12:28> Surgical History: Surgical History H/O abdominal hysterectomy H/O mitral valve replacement H/O mitral valve replacement with mechanical valve History of bunionectomy History of cataract surgery History of colonoscopy History of left inguinal hernia repair History of sleeve gastrectomy Mechanical heart valve present <EMILIANA Lindsey Last Filed: 10/21/21 12:28> Family History Family History: Family History Mother Diabetes Father Past heart attack Diabetes Sister Parkinsons disease <EMILIANA Lindsey - Last Filed: 10/21/21 12:28> Social History Social History: Social History Household Members: Family Household Members Other:: daughter Housing: House Do you presently have visiting nurse or other home services: Yes ([facility] for blood level coumadin checks. PT at home has just finished) Alcohol intake: never Patient Tobacco Use Status: Never used Tobacco Tobacco use type: Cigarette e-Cigarette/Vaping Use: Never Used Second Hand Smoke Exposure: No Advance Directives: No Advance Directives Information Provided: No Advance Directives Date on File: 10/09/21 service: No Current occupational status: disabled Current occupation: left handed Cognitive needs: No Hearing needs: No Vision needs: No <EMILIANA Lindsey - Last Filed: 10/21/21 12:28> Physical Exam Vital Signs: Vital Signs: Last Vital Signs Temp 96.2 F L 10/21/21 10:43 Pulse 60 10/21/21 10:43 Resp 18 10/21/21 10:43 BP 105/65 10/21/21 10:43 Pulse Ox 96 10/21/21 10:43 BMI result Body Mass Index 19.9 VSS patient noted to be slightly hypotensive <EMILIANA Lindsey - Last Filed: 10/21/21 12:28> Vital Signs: Last Vital Signs Temp 96.2 F L 10/21/21 10:43 Pulse 60 10/21/21 10:43 Resp 18 10/21/21 10:43 BP 105/65 10/21/21 10:43 Pulse Ox 96 10/21/21 10:43 BMI result Body Mass Index 19.9 <Aj Spence MD - Last Filed: 10/21/21 11:13> Appearance: Alert.? Oriented X3.? No acute distress.? Head: Normocephalic, atraumatic, no step-offs or deformities Eyes: Pupils equal, round and reactive to light.? ENT: Pharynx normal.? Neck: Normal inspection.? Neck supple.? CVS: Normal heart rate and rhythm.? Pulses normal.?+systolic murmur appreciated. Respiratory: No respiratory distress.? Breath sounds normal.? Abdomen: Soft and nontender.? Skin: Skin warm and dry.? Normal skin color.? Normal skin turgor.? Extremities: No lower extremity edema.? No calf ttp. 5/5 strength to bilateral upper and lower extremities + swelling, calor and erythema to the left hand/wrist with normal pulses and capillary refill. Right hand/wrist normal. + pain with movement of left hand/fingers/wrist Back: No midline tenderness, no C-spine tenderness, full range of motion, no CVA tenderness bilaterally Neuro: Oriented X 3.? No motor deficit.? No sensory deficit. <EMILIANA Lindsey - Last Filed: 10/21/21 12:28> Course Reevaluation(s) Reevaluation #1: X-ray of the left hand shows mild dorsal soft tissue swelling, no fractures. Osteopenia and multifocal osteoarthritis are also noted. Discussed this case with Dr. Spence who recommends ancef for this patient due to ther severe CKD. I do not suspect tenosynovitis for this patient she has slight discomfort with ROM of wrist but is still able to move it. <EMILIANA Lindsey - Last Filed: 10/21/21 12:28> Time: 11:13 <EMILIANA Lindsey - Last Filed: 10/21/21 12:28> Reevaluation #2: I agree with the history and plan, my exam is red, hot swollen, left hand. FROM at the left wrist. Impression is cellulitis will admit. <Aj Spence MD - Last Filed: 10/21/21 11:13> Reevaluation #3: Laboratory studies appear to be at baseline, however, kidney function appears to be progressively worsening. Lactic acid 0.4. Patient is COVID negative. I have started Ancef. Patient is getting IV fluids. I will reach out to hospitalist for admission <EMILIANA Lindsey - Last Filed: 10/21/21 12:28> Time: 12:24 <EMILIANA Lindsey Last Filed: 10/21/21 12:28> Additional Reevaluation(s): 1226 Dr. Fitzgerald will be admitting this patient. <EMILIANA Lindsey - Last Filed: 10/21/21 12:28> MDM - Extremity (Nontraumatic) MDM Narrative Medical decision making narrative: [id number] YO F pmhx CHFwith reduced ejection fraction and diastolic dysfunction, amyloidosis, anemia, anxiety, MDD, atrial fibrillation, CKD, heart disease, HTN, ischemic cardiomyopathy presents to the Ed with concerns of redness and swelling to left hand and wrist. To note, patient was seen here on October 09 2021 where she was complaining of swelling in her abdomen and legs for a few weeks. At that time she was admitted to the hospital for decompensated right heart failure with renal insufficiency. She was admitted to the hospital from October 09, 2021 - October 16, 2021. At that time she was started on carvedilol and furosemide as well as a hydrocortisone cream for external hemorrhoids Upon physical examination there is erythema, calor and edema noted to the left hand/wrist, particularly the dorsal aspect of the hand. Patient reports significant pain with range of motion to fingers, hand and wrist of the left side. The complaints of the right side. Patient has 2+ palpable pulses to bilateral upper extremities. Extremity is warm. Vital signs are stable however, patient is noted to be hypotensive. Plan at this time is to obtain basic labs, COVID, lactic acid, blood cultures, and initiate fluids. An x-ray of the hand/wrist also be obtained Fluids will be initiated. I will order antibiotics as soon as patients labs are back as she has CKD. This will aid in antibiotic selection. Infection suspected at this time. A sepsis focus exam was done upon arival <EMILIANA Lindsey - Last Filed: 10/21/21 12:28> Lab Data Result diagrams: : 10/21/21 11:14 10/21/21 11:14 <EMILIANA Lindsey - Last Filed: 10/21/21 12:28> Labs: Lab Results 10/21/21 10/21/21 10/21/21 Range/Units 11:02 11:13 11:14 WBC 6.9 (4.8-10.8) X10*3/uL RBC 3.18 L (4.20-5.50) X10*6/uL Hgb 9.0 L (12.0-16.0) g/dl Hct 29.5 L (37.0-47.0) % MCV 92.8 (80.0-98.0) fL MCH 28.3 (27.0-33.0) pg MCHC 30.5 L (31.0-35.0) g/dl RDW 18.4 H (11.0-16.0) % Plt Count 95 L (160-400) X10*3/uL MPV 12.9 H (9.4-12.3) fL Immature Gran % (Auto) 0.4 (0.0-0.4) % Neut % (Auto) 84.8 H (45-73) % Lymph % (Auto) 5.5 L (20-40) % Mower % (Auto) 8.7 (2-11) % Eos % (Auto) 0.3 (0-4) % Baso % (Auto) 0.3 (0-2) % Lymph # (Auto) 0.4 L (1.2-4.9) X10*3/uL Mower # (Auto) 0.6 (0.1-1.2) X10*3/uL Eos # (Auto) 0.0 (0.0-0.4) X10*3/uL Baso # (Auto) 0.0 (0.0-0.2) X10*3/uL Abs Immat Gran (auto) 0.03 (0.00-0.03) X10*3/uL Absolute Neuts (auto) 5.9 (2.0-8.3) x10*3/uL Absolute Nucleated RBC 0.000 (0.0-0.012) X10*3/uL Nucleated RBC % (auto) 0.0 (0.0-0.2) /100WBC Sodium (135-145) mmol/L Potassium (3.3-5.1) mmol/L Chloride (96-108) mmol/L Carbon Dioxide (22-29) mmol/L Anion Gap (12-20) BUN (9-16) mg/dL Creatinine (0.5-1.4) mg/dL Estim Creat Clear Calc Estimated GFR Random Glucose (60-115) mg/dL Lactic Acid 0.4 L (0.5-2.0) mmol/L Calcium (8.4-10.2) mg/dL Total Bilirubin (0.0-1.0) mg/dL AST (5-31) U/L ALT (0-31) U/L Alkaline Phosphatase (39-117) U/L Total Protein (6.5-8.0) g/dL Albumin (3.5-5.0) g/dL COVID-19 (ANEUDY) Invalid (Negative) COVID-19 Clin Com See Note 10/21/21 Range/Units 11:14 WBC (4.8-10.8) X10*3/uL RBC (4.20-5.50) X10*6/uL Hgb (12.0-16.0) g/dl Hct (37.0-47.0) % MCV (80.0-98.0) fL MCH (27.0-33.0) pg MCHC (31.0-35.0) g/dl RDW (11.0-16.0) % Plt Count (160-400) X10*3/uL MPV (9.4-12.3) fL Immature Gran % (Auto) (0.0-0.4) % Neut % (Auto) (45-73) % Lymph % (Auto) (20-40) % Mower % (Auto) (2-11) % Eos % (Auto) (0-4) % Baso % (Auto) (0-2) % Lymph # (Auto) (1.2-4.9) X10*3/uL Mower # (Auto) (0.1-1.2) X10*3/uL Eos # (Auto) (0.0-0.4) X10*3/uL Baso # (Auto) (0.0-0.2) X10*3/uL Abs Immat Gran (auto) (0.00-0.03) X10*3/uL Absolute Neuts (auto) (2.0-8.3) x10*3/uL Absolute Nucleated RBC (0.0-0.012) X10*3/uL Nucleated RBC % (auto) (0.0-0.2) /100WBC Sodium 138 (135-145) mmol/L Potassium 4.3 (3.3-5.1) mmol/L Chloride 99 (96-108) mmol/L Carbon Dioxide 27 (22-29) mmol/L Anion Gap 16 (12-20) BUN 124 H (9-16) mg/dL Creatinine 3.40 H (0.5-1.4) mg/dL Estim Creat Clear Calc 14.9 Estimated GFR 13 Random Glucose 108 (60-115) mg/dL Lactic Acid (0.5-2.0) mmol/L Calcium 8.4 (8.4-10.2) mg/dL Total Bilirubin 0.6 (0.0-1.0) mg/dL AST 32 H D (5-31) U/L ALT 42 H (0-31) U/L Alkaline Phosphatase 205 H D (39-117) U/L Total Protein 7.1 (6.5-8.0) g/dL Albumin 3.1 L (3.5-5.0) g/dL COVID-19 (ANEUDY) (Negative) COVID-19 Clin Com <EMILIANA Lindsey - Last Filed: 10/21/21 12:28> Lab Results 10/21/21 10/21/21 10/21/21 Range/Units 11:02 11:13 11:14 WBC 6.9 (4.8-10.8) X10*3/uL RBC 3.18 L (4.20-5.50) X10*6/uL Hgb 9.0 L (12.0-16.0) g/dl Hct 29.5 L (37.0-47.0) % MCV 92.8 (80.0-98.0) fL MCH 28.3 (27.0-33.0) pg MCHC 30.5 L (31.0-35.0) g/dl RDW 18.4 H (11.0-16.0) % Plt Count 95 L (160-400) X10*3/uL MPV 12.9 H (9.4-12.3) fL Immature Gran % (Auto) 0.4 (0.0-0.4) % Neut % (Auto) 84.8 H (45-73) % Lymph % (Auto) 5.5 L (20-40) % Mower % (Auto) 8.7 (2-11) % Eos % (Auto) 0.3 (0-4) % Baso % (Auto) 0.3 (0-2) % Lymph # (Auto) 0.4 L (1.2-4.9) X10*3/uL Mower # (Auto) 0.6 (0.1-1.2) X10*3/uL Eos # (Auto) 0.0 (0.0-0.4) X10*3/uL Baso # (Auto) 0.0 (0.0-0.2) X10*3/uL Abs Immat Gran (auto) 0.03 (0.00-0.03) X10*3/uL Absolute Neuts (auto) 5.9 (2.0-8.3) x10*3/uL Absolute Nucleated RBC 0.000 (0.0-0.012) X10*3/uL Nucleated RBC % (auto) 0.0 (0.0-0.2) /100WBC Sodium (135-145) mmol/L Potassium (3.3-5.1) mmol/L Chloride (96-108) mmol/L Carbon Dioxide (22-29) mmol/L Anion Gap (12-20) BUN (9-16) mg/dL Creatinine (0.5-1.4) mg/dL Estim Creat Clear Calc Estimated GFR Random Glucose (60-115) mg/dL Lactic Acid 0.4 L (0.5-2.0) mmol/L Calcium (8.4-10.2) mg/dL Total Bilirubin (0.0-1.0) mg/dL AST (5-31) U/L ALT (0-31) U/L Alkaline Phosphatase (39-117) U/L Total Protein (6.5-8.0) g/dL Albumin (3.5-5.0) g/dL COVID-19 (ANEUDY) Invalid (Negative) COVID-19 Clin Com See Note 10/21/21 Range/Units 11:14 WBC (4.8-10.8) X10*3/uL RBC (4.20-5.50) X10*6/uL Hgb (12.0-16.0) g/dl Hct (37.0-47.0) % MCV (80.0-98.0) fL MCH (27.0-33.0) pg MCHC (31.0-35.0) g/dl RDW (11.0-16.0) % Plt Count (160-400) X10*3/uL MPV (9.4-12.3) fL Immature Gran % (Auto) (0.0-0.4) % Neut % (Auto) (45-73) % Lymph % (Auto) (20-40) % Mower % (Auto) (2-11) % Eos % (Auto) (0-4) % Baso % (Auto) (0-2) % Lymph # (Auto) (1.2-4.9) X10*3/uL Mower # (Auto) (0.1-1.2) X10*3/uL Eos # (Auto) (0.0-0.4) X10*3/uL Baso # (Auto) (0.0-0.2) X10*3/uL Abs Immat Gran (auto) (0.00-0.03) X10*3/uL Absolute Neuts (auto) (2.0-8.3) x10*3/uL Absolute Nucleated RBC (0.0-0.012) X10*3/uL Nucleated RBC % (auto) (0.0-0.2) /100WBC Sodium 138 (135-145) mmol/L Potassium 4.3 (3.3-5.1) mmol/L Chloride 99 (96-108) mmol/L Carbon Dioxide 27 (22-29) mmol/L Anion Gap 16 (12-20) BUN 124 H (9-16) mg/dL Creatinine 3.40 H (0.5-1.4) mg/dL Estim Creat Clear Calc 14.9 Estimated GFR 13 Random Glucose 108 (60-115) mg/dL Lactic Acid (0.5-2.0) mmol/L Calcium 8.4 (8.4-10.2) mg/dL Total Bilirubin 0.6 (0.0-1.0) mg/dL AST 32 H D (5-31) U/L ALT 42 H (0-31) U/L Alkaline Phosphatase 205 H D (39-117) U/L Total Protein 7.1 (6.5-8.0) g/dL Albumin 3.1 L (3.5-5.0) g/dL COVID-19 (ANEUDY) (Negative) COVID-19 Clin Com <Aj Spence MD - Last Filed: 10/21/21 11:13> Imaging Data Left hand Xray : Attestation: I personally reviewed and interpreted this imaging study as follows: <EMILIANA Lindsey - Last Filed: 10/21/21 12:28> Radiologist's impression: FINDINGS: Mild diffuse osteopenia. No fracture or dislocation. There are degenerative changes with joint space narrowing and osteophytosis of the first metacarpophalangeal joint, first carpometacarpal joint, and some of the interphalangeal joint spaces. There is mild dorsal soft tissue swelling. XR/XR hand LT 2V IMPRESSION: Mild dorsal soft tissue swelling but no acute osseous abnormality seen. ? Osteopenia and multifocal osteoarthritis as described above. <EMILIANA Lindsey - Last Filed: 10/21/21 12:28> Critical Care Time Critical Care Time Critical Care Time: Yes <EMILIANA Lindsey - Last Filed: 10/21/21 12:28> Total Critical Care Time: 36 <EMILIANA Lindsey - Last Filed: 10/21/21 12:28> Attestation: I attest to this time spent taking care of the patient reviewing labs, consulting with attending, speaking to hospitalist team, looking at previous visits. <EMILIANA Lindsey - Last Filed: 10/21/21 12:28> Discharge Plan Discharge Clinical Impression: Cellulitis, ALIZA (acute kidney injury) <EMILIANA Lindsey - Last Filed: 10/21/21 12:28> Patient Disposition: Admitted As Inpatient <EMILIANA Lindsey - Last Filed: 10/21/21 12:28>
[2021-10-21 10:43] VITALS: BP 105/65; PULSE 60; RESP 18; TEMP 35.7; O2SAT 96
[2021-10-21] MEDS: 0.9 % Sodium Chloride 1,000 ML 999 ML IV (11:19)
[2021-10-21 11:21] LABS: MANUAL DIFF FLAG NO
[2021-10-21 11:25] LABS: Basophils Percent Auto 0.3 % (0-2); Eosinophils Percent Auto 0.3 % (0-4); Hematocrit 29.5 % (37.0-47.0); Imm Gran Abs Auto 0.03 X10*3/uL (0.00-0.03); Imm Gran Pct Auto 0.4 % (0.0-0.4); Lymphocytes Absolute Auto 0.4 X10*3/uL (1.2-4.9); Lymphocytes Percent Auto 5.5 % (20-40); Mean Corpuscular HGB Conc 30.5 g/dl (31.0-35.0); Mean Corpuscular Hemoglobin 28.3 pg (27.0-33.0); Mean Corpuscular Volume 92.8 fL (80.0-98.0); Mean Platelet Volume 12.9 fL (9.4-12.3); Monocytes Absolute Auto 0.6 X10*3/uL (0.1-1.2); Monocytes Percent Auto 8.7 % (2-11); Neutrophils Absolute Auto 5.9 x10*3/uL (2.0-8.3); Neutrophils Percent Auto 84.8 % (45-73); Platelet Count 95 X10*3/uL (160-400); Red Blood Count 3.18 X10*6/uL (4.20-5.50); Red Cell Distribution Width 18.4 % (11.0-16.0); White Blood Count 6.9 X10*3/uL (4.8-10.8)
[2021-10-21 11:36] LABS: Lactic Acid 0.4 mmol/L (0.5-2.0)
[2021-10-21 11:48] LABS: Alanine Aminotransferase 42 U/L (0-31); Albumin Level 3.1 g/dL (3.5-5.0); Alkaline Phosphatase 205 U/L (39-117); Anion Gap 16 (12-20); Aspartate Amino Transferase 32 U/L (5-31); Bilirubin Total 0.6 mg/dL (0.0-1.0); Blood Urea Nitrogen 124 mg/dL (9-16); Calcium 8.4 mg/dL (8.4-10.2); Carbon Dioxide 27 mmol/L (22-29); Chloride 99 mmol/L (96-108); Creatinine Clr Calc Pharmacy 14.9; Estimated Glomerular Filt Rate 13; Glucose Random 108 mg/dL (60-115); Potassium 4.3 mmol/L (3.3-5.1); Sodium 138 mmol/L (135-145); Total Protein 7.1 g/dL (6.5-8.0)
[2021-10-21 11:56] LABS: COVID-19 Test Invalid (Negative)
--- NOTE | 2021-10-21 12:54 | PHA.MEDREC ---
Pharmacy Consult ? Medication Reconciliation Pharmacy has completed the medication reconciliation. Thanks [facility]
--- NOTE | 2021-10-21 14:57 | PM.IMHP ---
History of Present Illness Date of Service: 10/21/21 71-year-old female past medical history significant for chronic heart failure with reduced ejection fraction and diastolic dysfunction, amyloidosis, anemia, anxiety, depression, atrial fibrillation, CKD, heart disease, hypertension, ischemic cardiomyopathy presents to the emergency department with pain, swelling, warmth and redness to the left hand/wrist.States early October, transported to hospital/IV started. Fells related to same. Seen at home 10/19/21 byCCA WELDER [facility]. Started on Keflex. States hand progressively worse....presented to ER. In ERE , given dose of Ancef and called for admit. Plain films left hand unremarkable. Review of Systems Review of Systems: Denies chest pain Denies shortness of breath Denies nausea vomiting diarrhea PMFSH Medical History Acute on chronic heart failure with reduced ejection fraction and diastolic dysfunction Amyloidosis Amyloidosis Anemia Anemia Anxiety and depression Arthritis Bladder hypertonicity CHF (congestive heart failure) Chronic atrial fibrillation Chronic HFrEF (heart failure with reduced ejection fraction) Chronic kidney disease (CKD) stage G4/A1, severely decreased glomerular filtration rate (GFR) between 15-29 mL/min/1.73 square meter and albuminuria creatinine ratio less than 30 mg/g CKD (chronic kidney disease) stage 4, GFR 15-29 ml/min Detached retina Gout Heart disease Hemorrhoids with complication History of breast cancer History of breast cancer HTN (hypertension) Hypercholesterolemia Hypothyroid ICD (implantable cardioverter-defibrillator) in place Ischemic cardiomyopathy Kidney disease Nephrolithiasis Osteoarthritis Overweight (BMI 25.0-29.9) Pulmonary hypertension Thumb tendonitis Tricuspid regurgitation Urinary incontinence Family History Mother Diabetes Father Past heart attack Diabetes Sister Parkinsons disease Surgical History H/O abdominal hysterectomy H/O mitral valve replacement H/O mitral valve replacement with mechanical valve History of bunionectomy History of cataract surgery History of colonoscopy History of left inguinal hernia repair History of sleeve gastrectomy Mechanical heart valve present Social History Household Members: Family Household Members Other:: daughter Housing: House Do you presently have visiting nurse or other home services: Yes ([facility] for blood level coumadin checks. PT at home has just finished) Alcohol intake: never Patient Tobacco Use Status: Never used Tobacco Tobacco use type: Cigarette e-Cigarette/Vaping Use: Never Used Second Hand Smoke Exposure: No Advance Directives: No Advance Directives Information Provided: No Advance Directives Date on File: 10/09/21 service: No Current occupational status: disabled Current occupation: left handed Cognitive needs: No Hearing needs: No Vision needs: No Meds Allergies Allergy/AdvReac Type Severity Reaction Status Date / Time TAPE,PAPER Allergy Unknown RASH TO Uncoded 10/17/21 10:46 PAPER TAPE Active Medications: Current Medications Acetaminophen (Acetaminophen 325 Mg Tablet) 650 mg PO Q6H PRN PRN Reason: Pain, Mild (Pain Scale 1-3) Aspirin (Aspirin Enteric Coated 81 Mg Tablet.) 81 mg PO DAILY [facility] Carvedilol (Carvedilol 12.5 Mg Tablet) 12.5 mg PO BIDWM [facility]; Protocol Docusate Sodium (Docusate Sodium 100 Mg Capsule) 200 mg PO BEDTIME [facility] Ferrous Sulfate (Ferrous Sulfate 324 Mg Tablet.) 324 mg PO BID [facility] Fluoxetine HCl (Fluoxetine Hcl 20 Mg Capsule) 20 mg PO DAILY [facility] Furosemide (Furosemide 20 Mg Tablet) 60 mg PO BID@0800,1400 [facility]; Protocol Hydrocortisone (Hydrocortisone 2.5 % Rectal Cr 30 Gm Tube) 1 appl [place] BID PRN PRN Reason: perianal pain Isosorbide Dinitrate (Isosorbide Dinitrate 5 Mg Tablet) 5 mg PO BID [facility]; Protocol Melatonin (Melatonin 3 Mg Tablet) 3 mg PO BEDTIME PRN PRN Reason: Insomnia Non-Formulary Medication (Artifi.Tears(Hypromellose)(Pf)) 1 drop EYE-BOTH TID NADINE Non-Formulary Medication (Ascorbic Acid (Vitamin C)) 500 mg PO BID [facility] Non-Formulary Medication (Calcium) 750 mg PO DAILY [facility] Non-Formulary Medication (Levothyroxine) 137 mcg PO QAM [facility]INE Non-Formulary Medication (Rosuvastatin) 10 mg PO BEDTIME NADINE Non-Formulary Medication (Vit C,C-Zy-Kvdeo-Lutein-Zeaxan [Preservision Areds-2]) 1 tab PO BID NADINE Non-Formulary Medication (Witch Blanca [Hemorrhoidal (Witch Blanca)]) 1 pad TOPICAL BID-TID PRN PRN Reason: skin irritation Omeprazole (Omeprazole 20 Mg Capsule.Dr) 20 mg PO DAILY [facility] Pharmacy Consult (Consult Rx Perform Med Rec) 1 each MISCELLANE ONCE PRN PRN Reason: Consult order Sodium Chloride (0.9 % Sodium Chloride Flush 3 Ml Syringe) 3 ml IVFLUSH QSHICHI [facility] Trazodone HCl (Trazodone Hcl 50 Mg Tablet) 50 mg PO BEDTIME PRN PRN Reason: for insomnia Warfarin Sodium (Warfarin Sodium 1.25 Mg Halftab) 1.25 mg PO [facility] Warfarin Sodium (Warfarin Sodium 2.5 Mg Tablet) 2.5 mg PO [place] [facility] Home Medications Medication Instructions Recorded Confirmed Last Taken Type acetaminophen 325 mg capsule 325 mg PO QID PRN 08/06/20 10/21/21 10/09/21 History (Tylenol) vit C 250 mg-vit E 90 mg-zinc 40 1 tab PO BID 08/06/20 10/21/21 10/21/21 History mg-copper 1 ll-algtyn-qidgji capsule (PreserVision AREDS-2) docusate sodium 100 mg capsule 200 mg PO BEDTIME 08/09/21 10/21/21 10/20/21 History artifi.tears(hypromellose)(PF) 0.3 1 drp OPHTHALMIC (EYE) TID 09/03/21 10/21/21 10/21/21 History % eye drops warfarin 2.5 mg tablet 2.5 mg PO SUMOTUTHFRSA 09/26/21 10/21/21 10/20/21 History calcium 750 mg PO DAILY 10/09/21 10/21/21 10/09/21 History furosemide 40 mg tablet (Lasix) 60 mg PO BID@0800,1400 10/21/21 10/21/21 10/21/21 History rosuvastatin 10 mg tablet 10 mg PO BEDTIME 10/21/21 10/21/21 10/20/21 History trazodone 50 mg tablet 50 mg PO BEDTIME PRN 10/21/21 10/21/21 10/20/21 History warfarin 2.5 mg tablet 1.25 mg PO WE 10/21/21 10/21/21 10/16/21 History Physical Exam Vital Signs and Narrative: Vital Signs: Last Vital Signs Temp 96.2 F L 10/21/21 10:43 Pulse 60 10/21/21 10:43 Resp 18 10/21/21 10:43 BP 105/65 10/21/21 10:43 Pulse Ox 96 10/21/21 10:43 BMI result Body Mass Index 19.9 Const: Other: no acute distress Resp: Other: clear to auscultation bilaterally no rales rhonchi or wheezes Cardio: Other: no S4; positive S1-S2; no S3 murmurs of her gallop GI: Other: soft nontender nondistended with normoactive bowel sounds Skin: Other: dorsum left hand erythematous to wrist with marked warmth Extrem: Other: no edema Results Labs CBC and Chem 7: 10/21/21 11:14 10/21/21 11:14 Labs: Laboratory Results - last 24 hr 10/21/21 10/21/21 10/21/21 11:02 11:13 11:14 MCV 92.8 MCH 28.3 MCHC 30.5 L RDW 18.4 H Plt Count 95 L MPV 12.9 H Immature Gran % (Auto) 0.4 Neut % (Auto) 84.8 H Lymph % (Auto) 5.5 L Wilkinson % (Auto) 8.7 Eos % (Auto) 0.3 Baso % (Auto) 0.3 Lymph # (Auto) 0.4 L Wilkinson # (Auto) 0.6 Eos # (Auto) 0.0 Baso # (Auto) 0.0 Abs Immat Gran (auto) 0.03 Absolute Neuts (auto) 5.9 Absolute Nucleated RBC 0.000 Nucleated RBC % (auto) 0.0 Anion Gap Estim Creat Clear Calc Estimated GFR Random Glucose Lactic Acid 0.4 L Calcium Total Bilirubin AST ALT Alkaline Phosphatase Total Protein Albumin COVID-19 (ANEUDY) Invalid COVID-19 Clin Com See Note 10/21/21 11:14 MCV MCH MCHC RDW Plt Count MPV Immature Gran % (Auto) Neut % (Auto) Lymph % (Auto) Wilkinson % (Auto) Eos % (Auto) Baso % (Auto) Lymph # (Auto) Wilkinson # (Auto) Eos # (Auto) Baso # (Auto) Abs Immat Gran (auto) Absolute Neuts (auto) Absolute Nucleated RBC Nucleated RBC % (auto) Anion Gap 16 Estim Creat Clear Calc 14.9 Estimated GFR 13 Random Glucose 108 Lactic Acid Calcium 8.4 Total Bilirubin 0.6 AST 32 H D ALT 42 H Alkaline Phosphatase 205 H D Total Protein 7.1 Albumin 3.1 L COVID-19 (ANEUDY) COVID-19 Clin Com Imaging Radiologist's Impressions: Impressions Hand X-Ray 10/21/21 10:10 IMPRESSION: Mild dorsal soft tissue swelling but no acute osseous abnormality seen. Osteopenia and multifocal osteoarthritis as described above. Assessment and Plan (1) Cellulitis: Status: Acute (2) Chronic kidney disease (CKD) stage G4/A1, severely decreased glomerular filtration rate (GFR) between 15-29 mL/min/1.73 square meter and albuminuria creatinine ratio less than 30 mg/g: Status: Acute (3) Chronic heart failure with reduced ejection fraction and diastolic dysfunction: Status: Acute 71-year-old female admitted with left hand cellulitis that has failed outpatient therapies 1. Cellulitis Continue Ancef 1 gram IV q8hrs, Follow renals 2. CKD Renal function at baseline. Continue to follow 3.Afib(chronic) Continue Warafin; daily INR. Adjust as indicated. Rate control adequate...No need for tele. 4.Chronic HFwREF Continue lasix as ordered. Full code Warfarin Quality Stroke Does the patient have a stroke diagnosis?: No VTE Prior VTE?: No VTE Risk Level:: Medical - moderate - high VTE Device Contraindication: Treatment Not Indicated VTE Drug Contraindication: Treatment Not Indicated
[2021-10-21 16:45] VITALS: BP 141/78; PULSE 96; RESP 17; O2SAT 99
[2021-10-21 16:47] LABS: INTERNATIONAL NORM RATIO 3.1 (0.9-1.1); Prothrombin Time 36.7 SEC (9.9-13.0)
[2021-10-21 19:08] VITALS: BP 141/78
[2021-10-21] MEDS: carvediloL 12.5 MG TABLET PO (19:08)
[2021-10-21 21:15] VITALS: BP 132/80; PULSE 94; RESP 18; TEMP 37.1; O2SAT 97
[2021-10-21] MEDS: Ascorbic Acid 500 MG TABLET PO (22:58)
[2021-10-21] MEDS: Docusate Sodium 100 MG CAPSULE 200 MG PO (22:58)
[2021-10-21] MEDS: Atorvastatin Calcium 40 MG TABLET PO (22:58)
[2021-10-21] MEDS: Isosorbide Dinitrate 5 MG TABLET PO (22:59)
[2021-10-21] MEDS: Acetaminophen 325 MG TABLET 650 MG PO (22:59)
[2021-10-21 23:03] VITALS: BP 130/80; PULSE 96; RESP 18; TEMP 37; O2SAT 97
[2021-10-22] VITALS (9 sets, daily range): BP systolic 99–124; BP diastolic 55–75; PULSE 60–96; RESP 16–18; TEMP 36.2–37.1; O2SAT 94–97; BMI 21.9
[2021-10-22] MEDS: 0.9 % Sodium Chloride Flush 3 ML SYRINGE IVFLUSH ×4 (01:47→21:45)
--- NOTE | 2021-10-22 01:48 | PC.NURSE ---
Pt a/o x3, c/o left hand pain, Tylenol given per order. Left hand swollen/red, open to air. + CMS denis to upper ext. VSS, pt awaiting for bed assignment.
--- NOTE | 2021-10-22 03:42 | PC.NURSE ---
Report given to M/S RN. Transport to M/S pending repeat Covid test.
[2021-10-22 04:14] LABS: COVID-19 Test Negative (Negative)
--- NOTE | 2021-10-22 04:20 | PC.NURSE ---
Pt ringing call aburto, requesting to use the bed rodriguez. This RN at bedside, attempting to assist pt onto commode. Pt not receptive to plan for bedside commode, requesting bed rodriguez. This RN educating pt on the importance of moving to prevent blood clot formation during hospital stay. Pt continues refusing to stand/pivot onto commode. Pt assisted onto bedpan, voiding easily. Plan for transport to floor.
--- NOTE | 2021-10-22 04:34 | PC.NURSE ---
IV to RAC removed as pt was reporting pain, IV difficult to flush, bleeding noted to site. IV reestablished to right forearm. Pt being transport to floor @ this time.
[2021-10-22] MEDS: Levothyroxine Sodium 25 MCG TABLET PO (05:13)
[2021-10-22] MEDS: Levothyroxine Sodium 112 MCG TABLET PO (05:13)
[2021-10-22 06:18] LABS: MANUAL DIFF FLAG NO
[2021-10-22 06:19] LABS: Basophils Percent Auto 0.1 % (0-2); Eosinophils Percent Auto 0.4 % (0-4); Imm Gran Abs Auto 0.05 X10*3/uL (0.00-0.03); Imm Gran Pct Auto 0.6 % (0.0-0.4); Lymphocytes Absolute Auto 0.4 X10*3/uL (1.2-4.9); Lymphocytes Percent Auto 4.3 % (20-40); Mean Corpuscular Hemoglobin 27.4 pg (27.0-33.0); Mean Corpuscular Volume 91.5 fL (80.0-98.0); Monocytes Absolute Auto 0.6 X10*3/uL (0.1-1.2); Monocytes Percent Auto 7.9 % (2-11); Neutrophils Percent Auto 86.7 % (45-73); Platelet Count 117 X10*3/uL (160-400); Red Blood Count 3.28 X10*6/uL (4.20-5.50); Red Cell Distribution Width 18.3 % (11.0-16.0); White Blood Count 8.1 X10*3/uL (4.8-10.8)
[2021-10-22 06:23] LABS: INTERNATIONAL NORM RATIO 2.9 (0.9-1.1); Prothrombin Time 33.6 SEC (9.9-13.0)
[2021-10-22 06:49] LABS: Anion Gap 16 (12-20); Blood Urea Nitrogen 109 mg/dL (9-16); Calcium 8.3 mg/dL (8.4-10.2); Carbon Dioxide 26 mmol/L (22-29); Chloride 100 mmol/L (96-108); Creatinine Clr Calc Pharmacy 18.5; Estimated Glomerular Filt Rate 16; Glucose Random 81 mg/dL (60-115); Sodium 138 mmol/L (135-145)
--- NOTE | 2021-10-22 08:58 | MHC.CM.PN ---
CM met with Patient at bedside and addressed ANDERSON with her, providing her with the original and placing a copy on the chart. Patient lives in a house with her Daughter/HCP/Zaira and she uses a walker to assist with mobility. Home/resume services is the goal for dc and CM has initiated and will follow for dc planning. PCP is Dr. Dakotah Jin.
--- NOTE | 2021-10-22 09:38 | HO.PM.IMPN ---
Subjective Subjective Date of Service: 10/22/21 Interval History: Notes persistent pain and redness over night; pain with minimal movement Review of Systems Denies chest pain Shortness of breath Denies nausea vomiting diarrhea Physical Exam Vital Signs: Vital Signs: Last Vital Signs Temp 98.3 F 10/22/21 07:52 Pulse 96 10/22/21 07:52 Resp 18 10/22/21 07:52 BP 119/71 10/22/21 07:52 Pulse Ox 96 10/22/21 07:52 BMI result Body Mass Index 21.9 Const: Other: no acute distress Resp: Other: clear to auscultation bilaterally no rales rhonchi or wheezes Cardio: Other: no S4; positive S1-S2; no S3 murmurs of her gallop GI: Other: soft nontender nondistended with normoactive bowel sounds Skin: Other: dorsum left hand erythematous to wrist with marked warmth Extrem: Other: no edema Objective Data Active Medications Acetaminophen (Acetaminophen 325 Mg Tablet) 650 mg PO Q6H PRN PRN Reason: Pain, Mild (Pain Scale 1-3) Last Admin: 10/21/21 22:59 Dose: 650 mg Documented by: ELHAM Artificial Tears (Artificial Tears 15 Ml Drops) 1 drop EYE-BOTH TID [facility] Last Admin: 10/21/21 23:01 Dose: Not Given Documented by: ELHAM Non-Admin Reason: not available Ascorbic Acid (Ascorbic Acid 500 Mg Tablet) 500 mg PO BID [facility] Last Admin: 10/21/21 22:58 Dose: 500 mg Documented by: ELHAM Aspirin (Aspirin Enteric Coated 81 Mg Tablet.) 81 mg PO DAILY [facility] Atorvastatin Calcium (Atorvastatin Calcium 40 Mg Tablet) 40 mg PO BEDTIME [facility] Last Admin: 10/21/21 22:58 Dose: 40 mg Documented by: ELHAM Calcium Carbonate (Calcium Carbonate 750 Mg Tab.Chew) 750 mg PO DAILY [facility] Carvedilol (Carvedilol 12.5 Mg Tablet) 12.5 mg PO BIDWM [facility]; Protocol Last Admin: 10/21/21 19:08 Dose: 12.5 mg Documented by: LULY Docusate Sodium (Docusate Sodium 100 Mg Capsule) 200 mg PO BEDTIME [facility] Last Admin: 10/21/21 22:58 Dose: 200 mg Documented by: ELHAM Ferrous Sulfate (Ferrous Sulfate 324 Mg Tablet.) 324 mg PO BID [facility] Fluoxetine HCl (Fluoxetine Hcl 20 Mg Capsule) 20 mg PO DAILY [facility] Furosemide (Furosemide 20 Mg Tablet) 60 mg PO BID@0800,1400 [facility]; Protocol Hydrocortisone (Hydrocortisone 2.5 % Rectal Cr 30 Gm Tube) 1 appl [place] BID PRN PRN Reason: perianal pain Piperacillin Sod/Tazobactam (Sod 2.25 gm/ Sodium Chloride) 50 mls @ 100 mls/hr IV Q8H [facility] Isosorbide Dinitrate (Isosorbide Dinitrate 5 Mg Tablet) 5 mg PO BID [facility]; Protocol Last Admin: 10/21/21 22:59 Dose: 5 mg Documented by: ELHAM Levothyroxine Sodium (Levothyroxine Sodium 112 Mcg Tablet) 112 mcg PO DAILY@0600 [facility] Last Admin: 10/22/21 05:13 Dose: 112 mcg Documented by: SABRINA Levothyroxine Sodium (Levothyroxine Sodium 25 Mcg Tablet) 25 mcg PO DAILY@0600 [facility] Last Admin: 10/22/21 05:13 Dose: 25 mcg Documented by: SABRINA Melatonin (Melatonin 3 Mg Tablet) 3 mg PO BEDTIME PRN PRN Reason: Insomnia Multivitamins/Vitamin C (Multivitamin Tablet) 1 tab PO DAILY [facility] Omeprazole (Omeprazole 20 Mg Capsule.) 20 mg PO DAILY [facility] Pharmacy Consult (Consult Rx Perform Med Rec) 1 each MISCELLANE ONCE PRN PRN Reason: Consult order Pharmacy Consult (Consult Rx Vancomycin Dosing) 1 each MISCELLANE DAILY PRN PRN Reason: Consult order Sodium Chloride (0.9 % Sodium Chloride Flush 3 Ml Syringe) 3 ml IVFLUSH QSHIFT [facility] Last Admin: 10/22/21 01:47 Dose: 3 ml Documented by: ELHAM Trazodone HCl (Trazodone Hcl 50 Mg Tablet) 50 mg PO BEDTIME PRN PRN Reason: for insomnia Warfarin Sodium (Warfarin Sodium 1.25 Mg Halftab) 1.25 mg PO We@1800 [facility] Warfarin Sodium (Warfarin Sodium 2.5 Mg Tablet) 2.5 mg PO SuMoTuThFrSa@1800 [facility] Labs CBC & Chem 7: 10/22/21 06:02 10/22/21 06:02 Labs: Laboratory Results - last 24 hr 10/21/21 10/21/21 10/21/21 11:02 11:13 11:14 MCV 92.8 MCH 28.3 MCHC 30.5 L RDW 18.4 H Plt Count 95 L MPV 12.9 H Immature Gran % (Auto) 0.4 Neut % (Auto) 84.8 H Lymph % (Auto) 5.5 L Mccone % (Auto) 8.7 Eos % (Auto) 0.3 Baso % (Auto) 0.3 Lymph # (Auto) 0.4 L Mccone # (Auto) 0.6 Eos # (Auto) 0.0 Baso # (Auto) 0.0 Abs Immat Gran (auto) 0.03 Absolute Neuts (auto) 5.9 Absolute Nucleated RBC 0.000 Nucleated RBC % (auto) 0.0 PT INR Anion Gap Estim Creat Clear Calc Estimated GFR Random Glucose Lactic Acid 0.4 L Calcium Total Bilirubin AST ALT Alkaline Phosphatase Total Protein Albumin COVID-19 (ANEUDY) Invalid COVID-19 Clin Com See Note 10/21/21 10/21/21 10/21/21 11:14 16:00 16:27 MCV MCH MCHC RDW Plt Count MPV Immature Gran % (Auto) Neut % (Auto) Lymph % (Auto) Mccone % (Auto) Eos % (Auto) Baso % (Auto) Lymph # (Auto) Mccone # (Auto) Eos # (Auto) Baso # (Auto) Abs Immat Gran (auto) Absolute Neuts (auto) Absolute Nucleated RBC Nucleated RBC % (auto) PT 36.7 H INR 3.1 H Anion Gap 16 Estim Creat Clear Calc 14.9 Estimated GFR 13 Random Glucose 108 Lactic Acid Calcium 8.4 Total Bilirubin 0.6 AST 32 H D ALT 42 H Alkaline Phosphatase 205 H D Total Protein 7.1 Albumin 3.1 L COVID-19 (ANEUDY) Cancelled COVID-19 Clin Com Cancelled 10/22/21 10/22/21 10/22/21 03:50 06:02 06:02 MCV 91.5 MCH 27.4 MCHC 30.0 L RDW 18.3 H Plt Count 117 L MPV 12.0 Immature Gran % (Auto) 0.6 H Neut % (Auto) 86.7 H Lymph % (Auto) 4.3 L Mccone % (Auto) 7.9 Eos % (Auto) 0.4 Baso % (Auto) 0.1 Lymph # (Auto) 0.4 L Mccone # (Auto) 0.6 Eos # (Auto) 0.0 Baso # (Auto) 0.0 Abs Immat Gran (auto) 0.05 H Absolute Neuts (auto) 7.0 Absolute Nucleated RBC 0.000 Nucleated RBC % (auto) 0.0 PT 33.6 H INR 2.9 H Anion Gap Estim Creat Clear Calc Estimated GFR Random Glucose Lactic Acid Calcium Total Bilirubin AST ALT Alkaline Phosphatase Total Protein Albumin COVID-19 (ANEUDY) Negative COVID-19 Clin Com See Note 10/22/21 06:02 MCV MCH MCHC RDW Plt Count MPV Immature Gran % (Auto) Neut % (Auto) Lymph % (Auto) Mccone % (Auto) Eos % (Auto) Baso % (Auto) Lymph # (Auto) Mccone # (Auto) Eos # (Auto) Baso # (Auto) Abs Immat Gran (auto) Absolute Neuts (auto) Absolute Nucleated RBC Nucleated RBC % (auto) PT INR Anion Gap 16 Estim Creat Clear Calc 18.5 Estimated GFR 16 Random Glucose 81 Lactic Acid Calcium 8.3 L Total Bilirubin AST ALT Alkaline Phosphatase Total Protein Albumin COVID-19 (ANEUDY) COVID-19 Clin Com Assessment and Plan (1) Cellulitis: Status: Acute (2) Chronic kidney disease (CKD) stage G4/A1, severely decreased glomerular filtration rate (GFR) between 15-29 mL/min/1.73 square meter and albuminuria creatinine ratio less than 30 mg/g: Status: Acute Assessment and Plan: 71-year-old female admitted with left hand cellulitis that has failed outpatient therapies; minimal improvement over knife 1. Cellulitis Will start Vanco/Zosyn(renal dosing) ID consult CT scan forearm..r/out abcess/osteo 2. CKD Renal function at baseline. Continue to follow 3.Afib(chronic) Continue Warafin; daily INR. Adjust as indicated. Rate control adequate...No need for tele. 4.Chronic HFwREF Continue lasix as ordered. Asymptomatic 5. Thrombocytopenia Chronic...not related to sepsis Follow while on ABTX Full code Warfarin Quality Stroke Does the patient have a stroke diagnosis?: No VTE Prior VTE?: No VTE Risk Level:: Medical - moderate - high VTE Device Contraindication: Treatment Not Indicated VTE Drug Contraindication: Treatment Not Indicated
[2021-10-22] MEDS: Calcium Carbonate 750 MG TAB.CHEW PO ×2 (10:11→22:21)
[2021-10-22] MEDS: Isosorbide Dinitrate 5 MG TABLET PO ×2 (10:11→21:45)
[2021-10-22] MEDS: Aspirin Enteric Coated 81 MG TABLET.DR PO (10:12)
[2021-10-22] MEDS: Multivitamin TABLET 1 TAB PO (10:12)
[2021-10-22] MEDS: Ferrous Sulfate 324 MG TABLET.DR PO ×2 (10:12→21:45)
[2021-10-22] MEDS: Ascorbic Acid 500 MG TABLET PO ×2 (10:12→21:45)
[2021-10-22] MEDS: Omeprazole 20 MG CAPSULE.DR PO (10:12)
[2021-10-22] MEDS: carvediloL 12.5 MG TABLET PO ×2 (10:12→16:41)
[2021-10-22] MEDS: Furosemide 20 MG TABLET 60 MG PO ×2 (10:12→14:07)
[2021-10-22] MEDS: FLUoxetine HCl 20 MG CAPSULE PO (10:12)
[2021-10-22] MEDS: Piperacillin Sodium/Tazobactam 2.25 GM in 0.9 % Sodium Chloride 50 ML IV ×2 (10:13→18:00)
[2021-10-22] MEDS: Acetaminophen 325 MG TABLET 650 MG PO (10:46)
[2021-10-22] MEDS: vancomycin HCL 1,000 MG in 0.9 % Sodium Chloride 250 ML 270 MG IV (11:13)
--- NOTE | 2021-10-22 11:19 | MHC.CM.PN ---
Per ROUNDS discussion, Patient will be switched from OBSERVATION to INPATIENT. IMM addressed at bedside with Patient and the original has been given to Patient and a copy has been placed on the chart.
[2021-10-22] MEDS: Artificial Tears 15 ML DROPS 1 DROP EYE-BOTH ×2 (14:08→21:46)
[2021-10-22] MEDS: Warfarin Sodium 2.5 MG TABLET PO (17:59)
[2021-10-22] MEDS: Docusate Sodium 100 MG CAPSULE 200 MG PO (21:45)
[2021-10-22] MEDS: Atorvastatin Calcium 40 MG TABLET PO (21:45)
[2021-10-22] MEDS: traZODone HCL 50 MG TABLET PO (21:45)
[2021-10-22] MEDS: Hydrocortisone 2.5 % Rectal Cr 30 GM TUBE 1 APPL PR (21:49)
[2021-10-23] VITALS (10 sets, daily range): BP systolic 100–119; BP diastolic 58–76; PULSE 71–94; RESP 16–18; TEMP 36.3–37.2; O2SAT 93–96
[2021-10-23] MEDS: Piperacillin Sodium/Tazobactam 2.25 GM in 0.9 % Sodium Chloride 50 ML IV ×2 (02:00→10:09)
[2021-10-23] MEDS: Levothyroxine Sodium 25 MCG TABLET PO (04:20)
[2021-10-23] MEDS: Levothyroxine Sodium 112 MCG TABLET PO (04:20)
[2021-10-23 06:22] LABS: MANUAL DIFF FLAG NO
[2021-10-23 06:36] LABS: Basophils Percent Auto 0.1 % (0-2); Eosinophils Percent Auto 0.2 % (0-4); Hematocrit 27.9 % (37.0-47.0); Hemoglobin 8.5 g/dl (12.0-16.0); Imm Gran Abs Auto 0.03 X10*3/uL (0.00-0.03); Imm Gran Pct Auto 0.4 % (0.0-0.4); Lymphocytes Absolute Auto 0.4 X10*3/uL (1.2-4.9); Lymphocytes Percent Auto 4.3 % (20-40); Mean Corpuscular HGB Conc 30.5 g/dl (31.0-35.0); Mean Corpuscular Volume 91.8 fL (80.0-98.0); Mean Platelet Volume 12.1 fL (9.4-12.3); Monocytes Absolute Auto 0.6 X10*3/uL (0.1-1.2); Monocytes Percent Auto 7.1 % (2-11); Neutrophils Absolute Auto 7.1 x10*3/uL (2.0-8.3); Neutrophils Percent Auto 87.9 % (45-73); Platelet Count 122 X10*3/uL (160-400); Red Blood Count 3.04 X10*6/uL (4.20-5.50); Red Cell Distribution Width 18.4 % (11.0-16.0); White Blood Count 8.1 X10*3/uL (4.8-10.8)
[2021-10-23 06:41] LABS: INTERNATIONAL NORM RATIO 2.5 (0.9-1.1); Prothrombin Time 28.4 SEC (9.9-13.0)
[2021-10-23 07:16] LABS: Anion Gap 17 (12-20); Blood Urea Nitrogen 110 mg/dL (9-16); Carbon Dioxide 24 mmol/L (22-29); Chloride 103 mmol/L (96-108); Creatinine Clr Calc Pharmacy 17.7; Estimated Glomerular Filt Rate 15; Glucose Random 118 mg/dL (60-115); Potassium 4.3 mmol/L (3.3-5.1); Sodium 140 mmol/L (135-145)
[2021-10-23] MEDS: Isosorbide Dinitrate 5 MG TABLET PO ×2 (07:45→19:58)
[2021-10-23] MEDS: carvediloL 12.5 MG TABLET PO ×2 (07:47→15:46)
[2021-10-23] MEDS: FLUoxetine HCl 20 MG CAPSULE PO (07:47)
[2021-10-23] MEDS: Multivitamin TABLET 1 TAB PO (07:47)
[2021-10-23] MEDS: Ferrous Sulfate 324 MG TABLET.DR PO ×2 (07:47→21:04)
[2021-10-23] MEDS: Calcium Carbonate 750 MG TAB.CHEW PO (07:47)
[2021-10-23] MEDS: Artificial Tears 15 ML DROPS 1 DROP EYE-BOTH ×3 (07:48→20:01)
[2021-10-23] MEDS: Omeprazole 20 MG CAPSULE.DR PO (07:48)
[2021-10-23] MEDS: Aspirin Enteric Coated 81 MG TABLET.DR PO (07:48)
[2021-10-23] MEDS: Furosemide 20 MG TABLET 60 MG PO ×2 (07:48→13:29)
[2021-10-23] MEDS: 0.9 % Sodium Chloride Flush 3 ML SYRINGE IVFLUSH ×3 (07:49→19:58)
[2021-10-23] MEDS: Ascorbic Acid 500 MG TABLET PO ×2 (07:49→19:58)
--- NOTE | 2021-10-23 10:23 | P.CNID_ITS ---
History of Present Illness Data of Consult Service Date: 10/22/21 Requesting physician: Marbin Valencia Primary Care Provider: MD RD Hargrove Reason for consult: left hand inflammation She presents to hospital with left wrist pain for last two days She has no fever or chills. She has had IV by report in hand on 10/09 Review of Systems 2 Review of Systems: Yes all other systems are reviewed and are negative [facility] Past Medical History Medical History (Updated 10/23/21 @ 10:43 by Gaye Yo MD) Acute on chronic heart failure with reduced ejection fraction and diastolic dysfunction Amyloidosis Amyloidosis Anemia Anemia Anxiety and depression Arthritis Bladder hypertonicity CHF (congestive heart failure) Chronic atrial fibrillation Chronic HFrEF (heart failure with reduced ejection fraction) Chronic kidney disease (CKD) stage G4/A1, severely decreased glomerular filtration rate (GFR) between 15-29 mL/min/1.73 square meter and albuminuria creatinine ratio less than 30 mg/g CKD (chronic kidney disease) stage 4, GFR 15-29 ml/min Detached retina Gout Heart disease Hemorrhoids with complication History of breast cancer History of breast cancer HTN (hypertension) Hypercholesterolemia Hypothyroid ICD (implantable cardioverter-defibrillator) in place Ischemic cardiomyopathy Kidney disease Nephrolithiasis Osteoarthritis Overweight (BMI 25.0-29.9) Pulmonary hypertension Thumb tendonitis Tricuspid regurgitation Urinary incontinence Wrist swelling Family History Family History Mother Diabetes Father Past heart attack Diabetes Sister Parkinsons disease Family history: reviewed and not pertinent Surgical History Surgical History H/O abdominal hysterectomy H/O mitral valve replacement H/O mitral valve replacement with mechanical valve History of bunionectomy History of cataract surgery History of colonoscopy History of left inguinal hernia repair History of sleeve gastrectomy Mechanical heart valve present Social History Social History Household Members: Family Household Members Other:: daughter Housing: House Do you presently have visiting nurse or other home services: No Alcohol intake: never Patient Tobacco Use Status: Never used Tobacco Tobacco use type: Cigarette e-Cigarette/Vaping Use: Never Used Second Hand Smoke Exposure: No Use of substances other than those prescribed or required for medical reasons: No Have you been hit, kicked, punched, or otherwise hurt by someone within the past year? If so, by whom?: No Do you feel safe in your current relationship?: No Current Relationship Is there a partner from a previous relationship who is making you feel unsafe now?: No Are you made to feel afraid or neglected: No Advance Directives: No Advance Directives Information Provided: No Advance Directives Date on File: 10/09/21 Do you have thoughts of harming others: None Do you have a plan to hurt others: No Plan Recently lost weight without trying: Unsure Eating poorly because of decreased appetite: No Nutrition Risks: No Nutritional Risk Patient : No : No Poor oral hygiene: No service: No Current occupational status: retired Current occupation: left handed Cognitive needs: No Hearing needs: No Vision needs: No Meds Allergies Allergy/AdvReac Type Severity Reaction Status Date / Time TAPE,PAPER Allergy Unknown RASH TO Uncoded 10/17/21 10:46 PAPER TAPE Active Medications: Current Medications Acetaminophen (Acetaminophen 325 Mg Tablet) 650 mg PO Q6H PRN PRN Reason: Pain, Mild (Pain Scale 1-3) Last Admin: 10/22/21 10:46 Dose: 650 mg Documented by: Artificial Tears (Artificial Tears 15 Ml Drops) 1 drop EYE-BOTH TID [facility] Last Admin: 10/23/21 07:48 Dose: 1 drop Documented by: Ascorbic Acid (Ascorbic Acid 500 Mg Tablet) 500 mg PO BID [facility] Last Admin: 10/23/21 07:49 Dose: 500 mg Documented by: Aspirin (Aspirin Enteric Coated 81 Mg Tablet.) 81 mg PO DAILY [facility] Last Admin: 10/23/21 07:48 Dose: 81 mg Documented by: Atorvastatin Calcium (Atorvastatin Calcium 40 Mg Tablet) 40 mg PO BEDTIME [facility] Last Admin: 10/22/21 21:45 Dose: 40 mg Documented by: Calcium Carbonate (Calcium Carbonate 750 Mg Tab.Chew) 750 mg PO DAILY [facility] Last Admin: 10/23/21 07:47 Dose: 750 mg Documented by: Carvedilol (Carvedilol 12.5 Mg Tablet) 12.5 mg PO BIDWM [facility]; Protocol Last Admin: 10/23/21 07:47 Dose: 12.5 mg Documented by: Docusate Sodium (Docusate Sodium 100 Mg Capsule) 200 mg PO BEDTIME [facility] Last Admin: 10/22/21 21:45 Dose: 200 mg Documented by: Ferrous Sulfate (Ferrous Sulfate 324 Mg Tablet.) 324 mg PO BID [facility] Last Admin: 10/23/21 07:47 Dose: 324 mg Documented by: Fluoxetine HCl (Fluoxetine Hcl 20 Mg Capsule) 20 mg PO DAILY [facility] Last Admin: 10/23/21 07:47 Dose: 20 mg Documented by: Furosemide (Furosemide 20 Mg Tablet) 60 mg PO BID@0800,1400 [facility]; Protocol Last Admin: 10/23/21 07:48 Dose: 60 mg Documented by: Hydrocortisone (Hydrocortisone 2.5 % Rectal Cr 30 Gm Tube) 1 appl CA BID PRN PRN Reason: perianal pain Last Admin: 10/22/21 21:49 Dose: 1 appl Documented by: Piperacillin Sod/Tazobactam (Sod 2.25 gm/ Sodium Chloride) 50 mls @ 100 mls/hr IV Q8H [facility] Last Admin: 10/23/21 10:09 Dose: 100 mls/hr Documented by: Vancomycin HCl 1,000 mg/ (Sodium Chloride) 270 mls @ 270 mls/hr IV Q48H [facility] Last Infusion: 10/22/21 12:20 Dose: Infused Documented by: Isosorbide Dinitrate (Isosorbide Dinitrate 5 Mg Tablet) 5 mg PO BID [facility]; Protocol Last Admin: 10/23/21 07:45 Dose: 5 mg Documented by: Levothyroxine Sodium (Levothyroxine Sodium 112 Mcg Tablet) 112 mcg PO DAILY@0600 [facility] Last Admin: 10/23/21 04:20 Dose: 112 mcg Documented by: Levothyroxine Sodium (Levothyroxine Sodium 25 Mcg Tablet) 25 mcg PO DAILY@0600 [facility] Last Admin: 10/23/21 04:20 Dose: 25 mcg Documented by: Melatonin (Melatonin 3 Mg Tablet) 3 mg PO BEDTIME PRN PRN Reason: Insomnia Multivitamins/Vitamin C (Multivitamin Tablet) 1 tab PO DAILY [facility] Last Admin: 10/23/21 07:47 Dose: 1 tab Documented by: Omeprazole (Omeprazole 20 Mg Capsule.) 20 mg PO DAILY [facility] Last Admin: 10/23/21 07:48 Dose: 20 mg Documented by: Pharmacy Consult (Consult Rx Perform Med Rec) 1 each MISCELLANE ONCE PRN PRN Reason: Consult order Pharmacy Consult (Consult Rx Vancomycin Dosing) 1 each MISCELLANE DAILY PRN PRN Reason: Consult order Sodium Chloride (0.9 % Sodium Chloride Flush 3 Ml Syringe) 3 ml IVFLUSH QSHIFT [facility] Last Admin: 10/23/21 07:49 Dose: 3 ml Documented by: Trazodone HCl (Trazodone Hcl 50 Mg Tablet) 50 mg PO BEDTIME PRN PRN Reason: for insomnia Last Admin: 10/22/21 21:45 Dose: 50 mg Documented by: Warfarin Sodium (Warfarin Sodium 1.25 Mg Halftab) 1.25 mg PO We@1800 [facility] Warfarin Sodium (Warfarin Sodium 2.5 Mg Tablet) 2.5 mg PO SuMoTuThFrSa@1800 [facility] Last Admin: 10/22/21 17:59 Dose: 2.5 mg Documented by: Home Medications Medication Instructions Recorded Confirmed Last Taken Type acetaminophen 325 mg capsule 325 mg PO QID PRN 08/06/20 10/21/21 10/09/21 History (Tylenol) vit C 250 mg-vit E 90 mg-zinc 40 1 tab PO BID 08/06/20 10/21/21 10/21/21 History mg-copper 1 [id number] capsule (PreserVision AREDS-2) docusate sodium 100 mg capsule 200 mg PO BEDTIME 08/09/21 10/21/21 10/20/21 History artifi.tears(hypromellose)(PF) 0.3 1 drp OPHTHALMIC (EYE) TID 09/03/21 10/21/21 10/21/21 History % eye drops warfarin 2.5 mg tablet 2.5 mg PO SUMOTUTHFRSA 09/26/21 10/21/21 10/20/21 History calcium 750 mg PO DAILY 10/09/21 10/21/21 10/09/21 History furosemide 40 mg tablet (Lasix) 60 mg PO BID@0800,1400 10/21/21 10/21/21 10/21/21 History rosuvastatin 10 mg tablet 10 mg PO BEDTIME 10/21/21 10/21/21 10/20/21 History trazodone 50 mg tablet 50 mg PO BEDTIME PRN 10/21/21 10/21/21 10/20/21 History warfarin 2.5 mg tablet 1.25 mg PO WE 10/21/21 10/21/21 10/16/21 History Physical Exam Vital Signs: Vital Signs: Last Vital Signs Temp 97.7 F 10/23/21 07:37 Pulse 71 10/23/21 07:47 Resp 18 10/23/21 07:37 BP 112/63 10/23/21 07:45 Pulse Ox 94 10/23/21 07:37 BMI result Body Mass Index 21.9 Const: General: cooperative HENMT: Head: Yes normal to inspection Eyes: General: appearance normal, both eyes and all related structures Resp: Effort & Inspection: normal respiratory effort Cardio: Rate: regular rate Rhythm: regular rhythm GI: Auscultation: normal bowel sounds Extrem: Other: swelling,mild erythema left wrist Results Labs CBC & Chem 7: 10/23/21 06:15 10/23/21 06:15 Labs: Short CBC 10/23/21 Range/Units 06:15 WBC 8.1 (4.8-10.8) X10*3/uL Hgb 8.5 L (12.0-16.0) g/dl Hct 27.9 L (37.0-47.0) % Plt Count 122 L (160-400) X10*3/uL BMP 10/23/21 06:15 Sodium 140 Potassium 4.3 Chloride 103 Carbon Dioxide 24 BUN 110 H Creatinine 3.08 H Calcium 8.0 L Microbiology Microbiology Results: Microbiology 10/21/21 12:12 Blood - Venous Blood Culture - Preliminary No growth after 24 hours. 10/21/21 11:13 Blood - Venous Blood Culture - Preliminary No growth after 24 hours. Assessment and Plan (1) Wrist swelling: Status: Acute This may be gout or cellulitis CT shows edema Doxycycline outpatient 10 d when better Prednisone if not improving in hospital Check uric acid
--- NOTE | 2021-10-23 11:20 | P.PNIM_ITS ---
Subjective Subjective Date of Service: 10/23/21 Interval History: Essentially no improvement and left hand. Remains warm to touch and painful to move. Review of Systems Denies chest pain Denies shortness of breath Denies nausea vomiting diarrhea Physical Exam Vital Signs: Vital Signs: Last Vital Signs Temp 97.7 F 10/23/21 07:37 Pulse 71 10/23/21 07:47 Resp 18 10/23/21 07:37 BP 112/63 10/23/21 07:45 Pulse Ox 94 10/23/21 07:37 BMI result Body Mass Index 21.9 Const: Other: no acute distress Resp: Other: clear to auscultation bilaterally no rales rhonchi or wheezes Cardio: Other: no S4; positive S1-S2; no S3 murmurs of her gallop GI: Other: soft nontender nondistended with normoactive bowel sounds Skin: Other: dorsum left hand erythematous to wrist with marked warmth Extrem: Other: no edema Objective Data Active Medications Acetaminophen (Acetaminophen 325 Mg Tablet) 650 mg PO Q6H PRN PRN Reason: Pain, Mild (Pain Scale 1-3) Last Admin: 10/22/21 10:46 Dose: 650 mg Documented by: DILCIA Artificial Tears (Artificial Tears 15 Ml Drops) 1 drop EYE-BOTH TID [facility] Last Admin: 10/23/21 07:48 Dose: 1 drop Documented by: DILCIA Ascorbic Acid (Ascorbic Acid 500 Mg Tablet) 500 mg PO BID [facility] Last Admin: 10/23/21 07:49 Dose: 500 mg Documented by: DILCIA Aspirin (Aspirin Enteric Coated 81 Mg Tablet.) 81 mg PO DAILY [facility] Last Admin: 10/23/21 07:48 Dose: 81 mg Documented by: DILCIA Atorvastatin Calcium (Atorvastatin Calcium 40 Mg Tablet) 40 mg PO BEDTIME [facility] Last Admin: 10/22/21 21:45 Dose: 40 mg Documented by: SABRINA Calcium Carbonate (Calcium Carbonate 750 Mg Tab.Chew) 750 mg PO DAILY [facility] Last Admin: 10/23/21 07:47 Dose: 750 mg Documented by: DILCIA Carvedilol (Carvedilol 12.5 Mg Tablet) 12.5 mg PO BIDWM [facility]; Protocol Last Admin: 10/23/21 07:47 Dose: 12.5 mg Documented by: DILCIA Docusate Sodium (Docusate Sodium 100 Mg Capsule) 200 mg PO BEDTIME [facility] Last Admin: 10/22/21 21:45 Dose: 200 mg Documented by: SABRINA Ferrous Sulfate (Ferrous Sulfate 324 Mg Tablet.) 324 mg PO BID [facility] Last Admin: 10/23/21 07:47 Dose: 324 mg Documented by: DILCIA Fluoxetine HCl (Fluoxetine Hcl 20 Mg Capsule) 20 mg PO DAILY [facility] Last Admin: 10/23/21 07:47 Dose: 20 mg Documented by: DILCIA Furosemide (Furosemide 20 Mg Tablet) 60 mg PO BID@0800,1400 [facility]; Protocol Last Admin: 10/23/21 07:48 Dose: 60 mg Documented by: DILCIA Hydrocortisone (Hydrocortisone 2.5 % Rectal Cr 30 Gm Tube) 1 appl HI BID PRN PRN Reason: perianal pain Last Admin: 10/22/21 21:49 Dose: 1 appl Documented by: SABRINA Vancomycin HCl 1,000 mg/ (Sodium Chloride) 270 mls @ 270 mls/hr IV Q48H [facility] Last Infusion: 10/22/21 12:20 Dose: 0 mls/hr Documented by: DILCIA Isosorbide Dinitrate (Isosorbide Dinitrate 5 Mg Tablet) 5 mg PO BID [facility]; Pro tocol Last Admin: 10/23/21 07:45 Dose: 5 mg Documented by: DILCIA Levothyroxine Sodium (Levothyroxine Sodium 112 Mcg Tablet) 112 mcg PO DAILY@0600 [facility] Last Admin: 10/23/21 04:20 Dose: 112 mcg Documented by: SABRINA Comments: down time Levothyroxine Sodium (Levothyroxine Sodium 25 Mcg Tablet) 25 mcg PO DAILY@0600 [facility] Last Admin: 10/23/21 04:20 Dose: 25 mcg Documented by: SABRINA Comments: down time Melatonin (Melatonin 3 Mg Tablet) 3 mg PO BEDTIME PRN PRN Reason: Insomnia Methylprednisolone Sodium Succinate (Methylprednisolone Sod Succ 125 Mg/2 Ml Vial) 60 mg IVPUSH Q8H [facility] Multivitamins/Vitamin C (Multivitamin Tablet) 1 tab PO DAILY [facility] Last Admin: 10/23/21 07:47 Dose: 1 tab Documented by: DILCIA Omeprazole (Omeprazole 20 Mg Capsule.) 20 mg PO DAILY [facility] Last Admin: 10/23/21 07:48 Dose: 20 mg Documented by: DILCIA Pharmacy Consult (Consult Rx Perform Med Rec) 1 each MISCELLANE ONCE PRN PRN Reason: Consult order Pharmacy Consult (Consult Rx Vancomycin Dosing) 1 each MISCELLANE DAILY PRN PRN Reason: Consult order Sodium Chloride (0.9 % Sodium Chloride Flush 3 Ml Syringe) 3 ml IVFLUSH QSHIFT [facility] Last Admin: 10/23/21 07:49 Dose: 3 ml Documented by: DILCIA Trazodone HCl (Trazodone Hcl 50 Mg Tablet) 50 mg PO BEDTIME PRN PRN Reason: for insomnia Last Admin: 10/22/21 21:45 Dose: 50 mg Documented by: SABRINA Warfarin Sodium (Warfarin Sodium 1.25 Mg Halftab) 1.25 mg PO We@1800 [facility] Warfarin Sodium (Warfarin Sodium 2.5 Mg Tablet) 2.5 mg PO SuMoTuThFrSa@1800 [facility] Last Admin: 10/22/21 17:59 Dose: 2.5 mg Documented by: DILCIA Labs CBC & Chem 7: 10/23/21 06:15 10/23/21 06:15 Labs: Laboratory Results - last 24 hr 10/23/21 10/23/21 10/23/21 06:15 06:15 06:15 MCV 91.8 MCH 28.0 MCHC 30.5 L RDW 18.4 H Plt Count 122 L MPV 12.1 Immature Gran % (Auto) 0.4 Neut % (Auto) 87.9 H Lymph % (Auto) 4.3 L [place] % (Auto) 7.1 Eos % (Auto) 0.2 Baso % (Auto) 0.1 Lymph # (Auto) 0.4 L [place] # (Auto) 0.6 Eos # (Auto) 0.0 Baso # (Auto) 0.0 Abs Immat Gran (auto) 0.03 Absolute Neuts (auto) 7.1 Absolute Nucleated RBC 0.000 Nucleated RBC % (auto) 0.0 PT 28.4 H INR 2.5 H Anion Gap 17 Estim Creat Clear Calc 17.7 Estimated GFR 15 Random Glucose 118 H Calcium 8.0 L Microbiology Microbiology Results: Microbiology 10/21/21 12:12 Blood Culture - Preliminary Blood - Venous No growth after 24 hours. 10/21/21 11:13 Blood Culture - Preliminary Blood - Venous No growth after 24 hours. Assessment and Plan (1) Cellulitis: Status: Acute (2) Wrist swelling: Status: Acute Assessment and Plan: 71-year-old female admitted with left hand cellulitis that has failed outpatient therapies; minimal improvement over last 48 hours 1. Cellulitis COntinue Vanco/Zosyn(renal dosing) CT scan without acute findings Will add solumedrol as per ID(?gout) 2. CKD Renal function at baseline. Continue to follow 3.Afib(chronic) Continue Warafin; daily INR. Adjust as indicated. Rate control adequate...No need for tele. 4.Chronic HFwREF Continue lasix as ordered. Asymptomatic 5. Thrombocytopenia Chronic...not related to sepsis Follow while on ABTX Full code Warfarin Quality Stroke Does the patient have a stroke diagnosis?: No VTE Prior VTE?: No VTE Risk Level:: Medical - moderate - high VTE Device Contraindication: Treatment Not Indicated VTE Drug Contraindication: Treatment Not Indicated
[2021-10-23 11:27] LABS: Uric Acid 11.2 mg/dL (2.4-5.7)
[2021-10-23] MEDS: methylPREDNISolone Sod Succ 125 MG/2 ML VIAL 60 MG IVPUSH ×2 (11:29→19:23)
[2021-10-23 13:57] LABS: Vancomycin Random 11.7 mcg/mL (15-20)
[2021-10-23] MEDS: vancomycin HCL 500 MG in 0.9 % Sodium Chloride 100 ML 110 MG IV (15:47)
[2021-10-23] MEDS: Warfarin Sodium 1.25 MG HALFTAB PO (18:48)
[2021-10-23] MEDS: Docusate Sodium 100 MG CAPSULE 200 MG PO (19:57)
[2021-10-23] MEDS: Atorvastatin Calcium 40 MG TABLET PO (19:58)
[2021-10-24] MEDS: methylPREDNISolone Sod Succ 125 MG/2 ML VIAL 60 MG IVPUSH ×2 (02:57→11:05)
[2021-10-24 03:40] VITALS: BP 105/63; PULSE 85; RESP 17; TEMP 37; O2SAT 95
[2021-10-24] MEDS: Levothyroxine Sodium 25 MCG TABLET PO (05:22)
[2021-10-24] MEDS: Levothyroxine Sodium 112 MCG TABLET PO (05:22)
[2021-10-24 05:34] LABS: Hematocrit 28.5 % (37.0-47.0); Hemoglobin 8.7 g/dl (12.0-16.0); Imm Gran Abs Auto 0.03 X10*3/uL (0.00-0.03); Imm Gran Pct Auto 0.4 % (0.0-0.4); Lymphocytes Absolute Auto 0.2 X10*3/uL (1.2-4.9); MANUAL DIFF FLAG SCAN; Mean Corpuscular HGB Conc 30.5 g/dl (31.0-35.0); Mean Corpuscular Hemoglobin 27.6 pg (27.0-33.0); Mean Corpuscular Volume 90.5 fL (80.0-98.0); Mean Platelet Volume 12.6 fL (9.4-12.3); Monocytes Absolute Auto 0.1 X10*3/uL (0.1-1.2); Monocytes Percent Auto 0.9 % (2-11); Neutrophils Absolute Auto 7.4 x10*3/uL (2.0-8.3); Neutrophils Percent Auto 96.7 % (45-73); Platelet Count 136 X10*3/uL (160-400); Red Blood Count 3.15 X10*6/uL (4.20-5.50); SCAN SMEAR FLAG 1; White Blood Count 7.7 X10*3/uL (4.8-10.8)
[2021-10-24 05:37] LABS: INTERNATIONAL NORM RATIO 2.3 (0.9-1.1); Prothrombin Time 26.3 SEC (9.9-13.0)
[2021-10-24 06:03] LABS: Anion Gap 16 (12-20); Blood Urea Nitrogen 112 mg/dL (9-16); Calcium 7.9 mg/dL (8.4-10.2); Carbon Dioxide 24 mmol/L (22-29); Chloride 103 mmol/L (96-108); Creatinine Clr Calc Pharmacy 17.7; Estimated Glomerular Filt Rate 15; Glucose Random 151 mg/dL (60-115); Potassium 4.5 mmol/L (3.3-5.1); Sodium 138 mmol/L (135-145)
[2021-10-24 06:04] LABS: SLIDE REVIEW VERIFIED
[2021-10-24 07:43] VITALS: BP 119/68; PULSE 78; RESP 18; TEMP 37; O2SAT 95
[2021-10-24] MEDS: Calcium Carbonate 750 MG TAB.CHEW PO (08:41)
[2021-10-24] MEDS: FLUoxetine HCl 20 MG CAPSULE PO (08:41)
[2021-10-24] MEDS: Isosorbide Dinitrate 5 MG TABLET PO (08:43)
[2021-10-24] MEDS: Multivitamin TABLET 1 TAB PO (08:43)
[2021-10-24] MEDS: Omeprazole 20 MG CAPSULE.DR PO (08:43)
[2021-10-24] MEDS: carvediloL 12.5 MG TABLET PO (08:43)
[2021-10-24] MEDS: Ascorbic Acid 500 MG TABLET PO (08:43)
[2021-10-24] MEDS: Artificial Tears 15 ML DROPS 1 DROP EYE-BOTH ×2 (08:44→14:54)
[2021-10-24] MEDS: Furosemide 20 MG TABLET 60 MG PO ×2 (08:44→14:53)
[2021-10-24] MEDS: Aspirin Enteric Coated 81 MG TABLET.DR PO (08:44)
[2021-10-24] MEDS: 0.9 % Sodium Chloride Flush 3 ML SYRINGE IVFLUSH (08:50)
--- NOTE | 2021-10-24 09:50 | P.DS_ITS ---
DS: Providers Provider Date of Service: 10/24/21 Date of admission: 10/22/21 03:04 Primary care physician: Dakotah Jin MD Consults: 10/22/21 09:37 Consult to Infectious Diseases Routine Consulting Provider: Gaye Yo Reason for consultation: cellulitis Has provider been notified: No DS: Diagnosis Discharge Diagnosis (1) Cellulitis: Status: Inactive (2) Wrist swelling: Status: Inactive DS: Summary Hospital Course Hospital Course: 1-year-old female past medical history significant for chronic heart failure with reduced ejection fraction and diastolic dysfunction, amyloidosis, anemia, anxiety, depression, atrial fibrillation, CKD, heart disease, hypertension, ischemic cardiomyopathy presents to the emergency department with pain, swelli ng, warmth and redness to the left hand/wrist.States early October, transported to hospital/IV started. Fells related to same. Seen at home 10/19/21 [facility] [employer]. Started on Keflex. States hand progressively worse....presented to ER. In ERE , given dose of Ancef and called for admit. Plain films left hand unremarkable. Hospital course: Patient was admitted and treated for left hand cellulitis with Vancomycin and Zosyn while in the hospital, cultures have been negative, erythema and swelling going down, no fever, WBC i snormal. Dr Yo from infectious disease has evaluated her and recommend Oral doxycyline for 10 days upon dishcarge. Her chronic medical issues are stable and no alteration in home meds. Will discharge with home PT/O, she doesn't want to go to [facility] rehab Time Spent with Patient Time attestation: Total time spent providing and/or coordinating discharge services: Discharge coordination time: Greater than 30 minutes Quality: Stroke Does the patient have a stroke diagnosis?: No Physical Exam Verdana 4l Vital Signs: Verdana 4d Verdana 4d Vital Signs: Verdana 4d Verdana 4Bd Last Vital Signs Verdana 4d Bond Analyst New 4d Bond Analyst New 4d Temp 98.6 F 10/24/21 07:43 Bond Analyst New 4d Pulse 78 10/24/21 07:43 Bond Analyst New 4d Resp 18 10/24/21 07:43 BP 119/68 10/24/21 07:43 Pulse Ox 95 10/24/21 07:43 BMI result Body Mass Index 21.9 Const: Other: General: AO X 3, no acute distress Resp: CTA bilateral CVS: S1,S2,RRR GI: +BS, NT, no distention Skin: No rash, some swelling overlying the left hand and minimal erythema, has mild tenderness as well Neuro: motor grossly intact Psych: appropriate affect DS: Data Data Completed and Pending Labs on day of discharge: Laboratory Results - last 24 hr 10/23/21 10/23/21 10/24/21 06:15 11:11 05:22 WBC RBC Hgb Hct MCV MCH MCHC RDW Plt Count MPV Immature Gran % (Auto) Neut % (Auto) Lymph % (Auto) [place] % (Auto) Eos % (Auto) Baso % (Auto) Lymph # (Auto) [place] # (Auto) Eos # (Auto) Baso # (Auto) Abs Immat Gran (auto) Absolute Neuts (auto) Absolute Nucleated RBC Nucleated RBC % (auto) Smear Tech's Comments PT 26.3 H INR 2.3 H Sodium Potassium Chloride Carbon Dioxide Anion Gap BUN Creatinine Estim Creat Clear Calc Estimated GFR Random Glucose Uric Acid 11.2 H Calcium Random Vancomycin 11.7 L 10/24/21 10/24/21 05:22 05:22 WBC 7.7 RBC 3.15 L Hgb 8.7 L Hct 28.5 L MCV 90.5 MCH 27.6 MCHC 30.5 L RDW 18.0 H Plt Count 136 L MPV 12.6 H Immature Gran % (Auto) 0.4 Neut % (Auto) 96.7 H Lymph % (Auto) 2.0 L [place] % (Auto) 0.9 L Eos % (Auto) 0.0 Baso % (Auto) 0.0 Lymph # (Auto) 0.2 L [place] # (Auto) 0.1 Eos # (Auto) 0.0 Baso # (Auto) 0.0 Abs Immat Gran (auto) 0.03 Absolute Neuts (auto) 7.4 Absolute Nucleated RBC 0.000 Nucleated RBC % (auto) 0.0 Smear Tech's Comments VERIFIED PT INR Sodium 138 Potassium 4.5 Chloride 103 Carbon Dioxide 24 Anion Gap 16 BUN 112 H Creatinine 3.08 H Estim Creat Clear Calc 17.7 Estimated GFR 15 Random Glucose 151 H Uric Acid Calcium 7.9 L Random Vancomycin Preliminary micro results at discharge 10/21/21 12:12 Blood Culture - Preliminary Blood - Venous No growth after 48 hours. 10/21/21 11:13 Blood Culture - Preliminary Blood - Venous No growth after 48 hours. Discharge Plan Discharge Anticipated Discharge Date/Time: 10/24/21 09:47 Patient Disposition: Home Health Service Discharge Diagnosis: Cellulitis of left hand, gout Referrals: Davin,Dakotah Ahumada MD [Primary Care Provider] - 1 Week Discharge Medications: New prednisone 10 mg tablet See Taper mg PO DAILY Qty: 20 0RF Taper: Prednisone 40 mg daily for 3 Days and 0 Hour 30 mg daily for 3 Days and 0 Hour 20 mg daily for 3 Days and 0 Hour 10 mg daily for 3 Days and 0 Hour Continued aspirin 81 mg tablet,delayed release (DR/EC) 81 mg PO DAILY Qty: 90 3RF isosorbide dinitrate 5 mg tablet 5 mg PO BID Qty: 180 3RF omeprazole 20 mg capsule,delayed release(DR/EC) 20 mg PO DAILY Qty: 90 2RF (DME) prosthetics Kit See Rx Instructions .ROUTE .MEDSUPPLY Qty: 1 0RF Rx Instructions: left prosthetic eye cleaning and evaluation for replacement levothyroxine 137 mcg tablet 137 mcg PO QAM Qty: 90 3RF (DME) JUXTA LITe compression See Rx Instructions .Route .MEDSUPPLY Qty: 2 0RF Rx Instructions: I pair- bilateral leg- knee high Juxta- lite docusate sodium 100 mg capsule 200 mg PO BEDTIME 0RF (DME) walker Misc See Rx Instructions .Route Qty: 1 0RF Rx Instructions: Upright Walker (DME) occular prosthetic. See Rx Instructions .Route .MEDSUPPLY Qty: 1 0RF Rx Instructions: As directed calcium 750 mg PO DAILY 0RF Rx Instructions: TUMS? hydrocortisone [Proctozone-HC] 2.5 % Cream With Perineal Applicator 1 appl DC BID PRN (Reason: perianal pain) Qty: 40 0RF trazodone 50 mg tablet 50 mg PO BEDTIME PRN (Reason: for insomnia) 0RF warfarin 2.5 mg tablet 1.25 mg PO WE 0RF Protocol: Dose Management Condition: Thursday (Week One) Dose/Route: 2.5 mg Instruction: 1 x 2.5 mg tablet Condition: Thursday Dose/Route: 2.5 mg Instruction: 1 x 2.5 mg tablet Condition: Thursday Dose/Route: 2.5 mg Instruction: 1 x 2.5 mg tablet Condition: Thursday Dose/Route: 1.25 mg Instruction: 0.5 x 2.5 mg tablets Condition: Dose/Route: 2.5 mg Instruction: 1 x 2.5 mg tablet Condition: Thursday Dose/Route: 2.5 mg Instruction: 1 x 2.5 mg tablet Condition: Thursday Dose/Route: 2.5 mg Instruction: 1 x 2.5 mg tablet Condition: Thursday (Week Two) Dose/Route: 2.5 mg Instruction: 1 x 2.5 mg tablet Condition: Thursday Dose/Route: 2.5 mg Instruction: 1 x 2.5 mg tablet Condition: Thursday Dose/Route: 2.5 mg Instruction: 1 x 2.5 mg tablet Condition: Thursday Dose/Route: 1.25 mg Instruction: 0.5 x 2.5 mg tablets Condition: Dose/Route: 2.5 mg Instruction: 1 x 2.5 mg tablet Condition: Thursday Dose/Route: 2.5 mg Instruction: 1 x 2.5 mg tablet Condition: Thursday Dose/Route: 2.5 mg Instruction: 1 x 2.5 mg tablet Protocol Text: Adjustment Start Date: 11/28/21 INR Value: 2.8 INR Date: 11/28/21 Recheck Date: 12/05/21 Additional Instructions: continue same dosing rosuvastatin 10 mg tablet 10 mg PO BEDTIME 0RF artifi.tears(hypromellose)(PF) 0.3 % drops 1 drp ophthalmic (eye) TID 0RF Hemorrhoidal (witch jose) 50 % pads, medicated 1 pad topical BID-TID PRN (Reason: skin irritation) Qty: 100 0RF PreserVision AREDS-2 [id number] se-[id number]-mg capsule 1 tab PO BID 0RF Rx Instructions: give with food (meal/snack) acetaminophen [Tylenol] 325 mg capsule 325 mg PO QID PRN (Reason: Pain) 0RF ascorbic acid (vitamin C) 500 mg capsule, extended release 500 mg PO BID Qty: 60 5RF warfarin 2.5 mg tablet 2.5 mg PO SUMOTUTHFRSA 0RF Protocol: Dose Management Condition: Thursday (Week One) Dose/Route: 2.5 mg Instruction: 1 x 2.5 mg tablet Condition: Thursday Dose/Route: 2.5 mg Instruction: 1 x 2.5 mg tablet Condition: Thursday Dose/Route: 2.5 mg Instruction: 1 x 2.5 mg tablet Condition: Thursday Dose/Route: 1.25 mg Instruction: 0.5 x 2.5 mg tablets Condition: Dose/Route: 2.5 mg Instruction: 1 x 2.5 mg tablet Condition: Thursday Dose/Route: 2.5 mg Instruction: 1 x 2.5 mg tablet Condition: Thursday Dose/Route: 2.5 mg Instruction: 1 x 2.5 mg tablet Condition: Thursday (Week Two) Dose/Route: 2.5 mg Instruction: 1 x 2.5 mg tablet Condition: Thursday Dose/Route: 2.5 mg Instruction: 1 x 2.5 mg tablet Condition: Thursday Dose/Route: 2.5 mg Instruction: 1 x 2.5 mg tablet Condition: Thursday Dose/Route: 1.25 mg Instruction: 0.5 x 2.5 mg tablets Condition: Dose/Route: 2.5 mg Instruction: 1 x 2.5 mg tablet Condition: Thursday Dose/Route: 2.5 mg Instruction: 1 x 2.5 mg tablet Condition: Thursday Dose/Route: 2.5 mg Instruction: 1 x 2.5 mg tablet Protocol Text: Adjustment Start Date: 11/28/21 INR Value: 2.8 INR Date: 11/28/21 Recheck Date: 12/05/21 Additional Instructions: continue same dosing No Action doxycycline hyclate 100 mg tablet 100 mg PO BID 7 Days Qty: 14 0RF carvedilol 12.5 mg tablet 12.5 mg PO BIDWM Qty: 60 0RF Protocol: Hold for SBP/HR < HOLD for SBP < : 90 HOLD for HR < : 60 furosemide [Lasix] 40 mg tablet 60 mg PO BID@0800,1400 90 Days Qty: 270 1RF Rx Instructions: take Lasix 60 mg at at 8am and 2pm ferrous sulfate 324 mg (65 mg iron) tablet,delayed release (DR/EC) 324 mg PO BID Qty: 60 3RF diclofenac sodium [Voltaren Arthritis Pain] 1 % gel 4 g topical QID Qty: 100 1RF Rx Instructions: apply to single knee, ankle, foot; for foot includes sole/toes/top of foot fluoxetine 20 mg capsule 20 mg PO DAILY 90 Days Qty: 90 1RF Discharge Orders: Discharge Order (Routine); Ordered 10/24/21 Ordered By: Rishi Fitzgerald Diet: advance to usual diet and low salt diet Activity on Discharge: As tolerated Stand Alone Forms: Patient Portal Discharge page Care Plan Goals: full recovery from cellulitis Health Concerns: left hand cellulitis Plan of Treatment: take doxycyline as recommended and follow up with your PCP in a week Take prednisone as directed for likely gout component Assessment: as above Discharge Date/Time: 10/24/21 15:43
[2021-10-24 11:04] VITALS: BP 106/62; PULSE 93; RESP 18; TEMP 37.1; O2SAT 95
[2021-10-24] MEDS: Acetaminophen 325 MG TABLET 650 MG PO (11:06)
--- NOTE | 2021-10-24 13:56 | P.PNIM_ITS ---
Subjective Subjective Date of Service: 10/24/21 Interval History: f/u on cellulitis of left hand, perssistent swelling, no erythema, ain Review of Systems Pain in the left hand, no fever Physical Exam Vital Signs: Vital Signs: Last Vital Signs Temp 98.7 F 10/24/21 11:04 Pulse 93 10/24/21 11:04 Resp 18 10/24/21 11:04 BP 106/62 10/24/21 11:04 Pulse Ox 95 10/24/21 11:04 BMI result Body Mass Index 21.9 Const: Other: General: AO X 3, no acute distress Resp: CTA bilateral CVS: S1,S2,RRR GI: +BS, NT, no distention Skin: No rash, some swelling overlying the left hand and minimal erythema, has mild tenderness as well Neuro: motor grossly intact Psych: appropriate affect Objective Data Active Medications Acetaminophen (Acetaminophen 325 Mg Tablet) 650 mg PO Q6H PRN PRN Reason: Pain, Mild (Pain Scale 1-3) Last Admin: 10/24/21 11:06 Dose: 650 mg Documented by: CICI Artificial Tears (Artificial Tears 15 Ml Drops) 1 drop EYE-BOTH TID [facility] Last Admin: 10/24/21 08:44 Dose: 1 drop Documented by: CICI Ascorbic Acid (Ascorbic Acid 500 Mg Tablet) 500 mg PO BID [facility] Last Admin: 10/24/21 08:43 Dose: 500 mg Documented by: CICI Aspirin (Aspirin Enteric Coated 81 Mg Tablet.Dr) 81 mg PO DAILY [facility] Last Admin: 10/24/21 08:44 Dose: 81 mg Documented by: CICI Atorvastatin Calcium (Atorvastatin Calcium 40 Mg Tablet) 40 mg PO BEDTIME [facility] Last Admin: 10/23/21 19:58 Dose: 40 mg Documented by: STEFANIE Calcium Carbonate (Calcium Carbonate 750 Mg Tab.Chew) 750 mg PO DAILY [facility] Last Admin: 10/24/21 08:41 Dose: 750 mg Documented by: CICI Carvedilol (Carvedilol 12.5 Mg Tablet) 12.5 mg PO BIDWM [facility]; Protocol Last Admin: 10/24/21 08:43 Dose: 12.5 mg Documented by: CICI Docusate Sodium (Docusate Sodium 100 Mg Capsule) 200 mg PO BEDTIME [facility] Last Admin: 10/23/21 19:57 Dose: 200 mg Documented by: STEFANIE Ferrous Sulfate (Ferrous Sulfate 324 Mg Tablet.) 324 mg PO BID [facility] Last Admin: 10/23/21 21:04 Dose: 324 mg Documented by: STEFANIE Fluoxetine HCl (Fluoxetine Hcl 20 Mg Capsule) 20 mg PO DAILY [facility] Last Admin: 10/24/21 08:41 Dose: 20 mg Documented by: CICI Furosemide (Furosemide 20 Mg Tablet) 60 mg PO BID@0800,1400 [facility]; Protocol Last Admin: 10/24/21 08:44 Dose: 60 mg Documented by: CICI Hydrocortisone (Hydrocortisone 2.5 % Rectal Cr 30 Gm Tube) 1 appl CO BID PRN PRN Reason: perianal pain Last Admin: 10/22/21 21:49 Dose: 1 appl Documented by: SABRINA Vancomycin HCl 500 mg/ Sodium (Chloride) 110 mls @ 110 mls/hr IV Q24H [facility] Last Infusion: 10/23/21 17:24 Dose: 0 mls/hr Documented by: SHANA Isosorbide Dinitrate (Isosorbide Dinitrate 5 Mg Tablet) 5 mg PO BID [facility]; Protocol Last Admin: 10/24/21 08:43 Dose: 5 mg Documented by: CICI Levothyroxine Sodium (Levothyroxine Sodium 112 Mcg Tablet) 112 mcg PO DAILY@0600 [facility] Last Admin: 10/24/21 05:22 Dose: 112 mcg Documented by: STEFANIE Levothyroxine Sodium (Levothyroxine Sodium 25 Mcg Tablet) 25 mcg PO DAILY@0600 [facility] Last Admin: 10/24/21 05:22 Dose: 25 mcg Documented by: STEFANIE Melatonin (Melatonin 3 Mg Tablet) 3 mg PO BEDTIME PRN PRN Reason: Insomnia Methylprednisolone Sodium Succinate (Methylprednisolone Sod Succ 125 Mg/2 Ml Vial) 60 mg IVPUSH Q8H [facility] Last Admin: 10/24/21 11:05 Dose: 60 mg Documented by: CICI Multivitamins/Vitamin C (Multivitamin Tablet) 1 tab PO DAILY [facility] Last Admin: 10/24/21 08:43 Dose: 1 tab Documented by: CICI Omeprazole (Omeprazole 20 Mg Capsule.) 20 mg PO DAILY [facility] Last Admin: 10/24/21 08:43 Dose: 20 mg Documented by: CICI Pharmacy Consult (Consult Rx Perform Med Rec) 1 each MISCELLANE ONCE PRN PRN Reason: Consult order Pharmacy Consult (Consult Rx Vancomycin Dosing) 1 each MISCELLANE DAILY PRN PRN Reason: Consult order Sodium Chloride (0.9 % Sodium Chloride Flush 3 Ml Syringe) 3 ml IVFLUSH QSHIFT [facility] Last Admin: 10/24/21 08:50 Dose: 3 ml Documented by: CICI Trazodone HCl (Trazodone Hcl 50 Mg Tablet) 50 mg PO BEDTIME PRN PRN Reason: for insomnia Last Admin: 10/22/21 21:45 Dose: 50 mg Documented by: SABRINA Warfarin Sodium (Warfarin Sodium 1.25 Mg Halftab) 1.25 mg PO We@1800 [facility] Last Admin: 10/23/21 18:48 Dose: 1.25 mg Documented by: SHANA Warfarin Sodium (Warfarin Sodium 2.5 Mg Tablet) 2.5 mg PO SuMoTuThFrSa@1800 [facility] Last Admin: 10/22/21 17:59 Dose: 2.5 mg Documented by: DILCIA Labs CBC & Chem 7: 10/24/21 05:22 10/24/21 05:22 Labs: Laboratory Results - last 24 hr 10/23/21 10/24/21 10/24/21 11:11 05:22 05:22 MCV 90.5 MCH 27.6 MCHC 30.5 L RDW 18.0 H Plt Count 136 L MPV 12.6 H Immature Gran % (Auto) 0.4 Neut % (Auto) 96.7 H Lymph % (Auto) 2.0 L [place] % (Auto) 0.9 L Eos % (Auto) 0.0 Baso % (Auto) 0.0 Lymph # (Auto) 0.2 L [place] # (Auto) 0.1 Eos # (Auto) 0.0 Baso # (Auto) 0.0 Abs Immat Gran (auto) 0.03 Absolute Neuts (auto) 7.4 Absolute Nucleated RBC 0.000 Nucleated RBC % (auto) 0.0 Smear Tech's Comments VERIFIED PT 26.3 H INR 2.3 H Anion Gap Estim Creat Clear Calc Estimated GFR Random Glucose Calcium Random Vancomycin 11.7 L 10/24/21 05:22 MCV MCH MCHC RDW Plt Count MPV Immature Gran % (Auto) Neut % (Auto) Lymph % (Auto) [place] % (Auto) Eos % (Auto) Baso % (Auto) Lymph # (Auto) [place] # (Auto) Eos # (Auto) Baso # (Auto) Abs Immat Gran (auto) Absolute Neuts (auto) Absolute Nucleated RBC Nucleated RBC % (auto) Smear Tech's Comments PT INR Anion Gap 16 Estim Creat Clear Calc 17.7 Estimated GFR 15 Random Glucose 151 H Calcium 7.9 L Random Vancomycin Microbiology Microbiology Results: Microbiology 10/21/21 12:12 Blood Culture - Preliminary Blood - Venous No growth after 48 hours. 10/21/21 11:13 Blood Culture - Preliminary Blood - Venous No growth after 48 hours. Assessment and Plan (1) Cellulitis: Status: Acute (2) Wrist swelling: Status: Acute Assessment and Plan: 71-year-old female admitted with left hand cellulitis that has failed outpatient therapies; minimal improvement over last 48 hours 1. Cellulitis--clincally some improvmeent, CT no acute finding. ID recommend Doxy for 10 days, and prednisone for posibility that it courld be gout 2. CKD Renal function at baseline. Continue to follow 3.Afib(chronic) Continue Warafin; daily INR. Adjust as indicated. Rate control adequate...No need for tele. 4.Chronic HFwREF Continue lasix as ordered. Asymptomatic 5. Thrombocytopenia Chronic...not related to sepsis Follow while on ABTX Full code Warfarin Pt doesn't want to go home and therefore will go do home with PT Quality Stroke Does the patient have a stroke diagnosis?: No VTE Prior VTE?: No VTE Risk Level:: Medical - moderate - high VTE Device Contraindication: Treatment Not Indicated VTE Drug Contraindication: Treatment Not Indicated
[2021-10-24 14:30] LABS: Uric Acid 10.6 mg/dL (2.4-5.7)
--- NOTE | 2021-10-24 14:33 | MHC.CM.PN ---
Addendum entered by Melani Ayers 10/25/21 08:45: ABHAY RECEIVED A RETURN CALL FROM JAMAL AT [facility]. SHE REQUESTED A REFERRAL BE MADE TO AN OUTSIDE AGENCY FOR PTS AFTERCARE SERVICES SHE WAS MADE AWARE OF REFERRAL SENT TO [facility] C[facility] FACE TO FACE AND DC SUMMARY SENT TO [facility], ALONG WITH NOTICE OF INSURANCE AUTH, VIA [employer]. Original Note: ABHAY MET WITH PT MULTIPLE TIMES PT REPORTING SHE DOES NOT WANT TO DC HOME TODAY BECAUSE HER HAND IS STILL SWOLLEN SHE REPORTS SHE IS WORRIED BECAUSE SHE HAS TO USE HER NON-DOMINANT HAND TO EAT AND WILL NOT BE ABLE TO WRITE CM REMINDED HER SHE HAS A FT CAREGIVER AT HOME THAT CAN ASSIST WITH THESE THINGS. ABHAY SPOKE TO PTS DAUGHTER, ARLENE ([phone]) X2. SHE REPORTS SHE KNOWS THE PT IS WORRIED BECAUSE SHE IS USUALLY INDEPENDENT AND WILL NOW BE NEEDING HELP SHE REPORTS SHE KNOWS THE PT WOULD LIKE TO STAY ANOTHER DAY CM EXPLAINED THE PT NO LONGER REQUIRES HOSPITALIZATION AND SHE CONFIRMS SHE WILL BE AVAILABLE TO ASSIST PT SHE IS NOT HER CAREGIVER UNDER AN ADULT FOSTER CARE PROGRAM THROUGH [facility]. ARLENE REPORTS SHE WILL CONTACT THE PT AND INFORM HER OF WHAT TIME SHE WILL BE PICKING HER UP ABHAY WAS INFORMED PT WILL NEED PT AND OT SERVICES CM CALLED JAMAL [phone] AT [facility] FOR AUTH HOWEVER SHE DID NOT ANSWER, A VM WAS LEFT REQUESTING A RETURN CALL CM ALSO MADE A REFERRAL TO [facility] IN THE EVENT [facility] DOES NOT PROVIDE SERVICES DIRECTLY
--- NOTE | 2021-10-24 14:34 | P.F2F_ITS ---
Service Date Service Date: 10/24/21 Reasons for Services Reason for senior living: teach disease management Reason for physical therapy: therapeutic exercises and restore joint function Reason for occupational therapy: home safety and mobility, therapeutic exercises, restore joint function and ADL training Homebound: Leaving the home is medically contraindicated at this time without the asist of a device and/or another person due th the listed conditions above and below. Homebound supporting statement: Patient is homebound due to inability to use her dominant left hand related to cellulitis and gout and therefore needs the assistance of another person Certification: Based on the above findings, I certify that this patient is confined to the home and needs intermittent senior living care, physical therapy and/or speech therapy, or continues to need occupational therapy. The patient is under my care, and I have initiated the establishment of the plan of care. The patient will be followed by a physician who will periodically review the plan of care.
== END 2021-10-24 15:43 | disposition home health service (06) | DRG 603 ==
LOC: HO.ED 12:22 → HO.EDOVER 10-22 13:48 → HO.S3 10-22 13:48
PROVIDERS: Physician Assistant; Admitting Provider Hospitalist; Emergency Provider Emergency Medicine; PCP Internal Medicine; Visit Provider Internal Medicine
DX: L03.114 Cellulitis of left upper limb (principal); I13.0 Hypertensive heart and chronic kidney disease with heart failure and stage 1 through stage 4 chronic kidney disease, or unspecified chronic kidney disease; N18.4 Chronic kidney disease, stage 4 (severe); N17.9 Acute kidney failure, unspecified; I50.42 Chronic combined systolic (congestive) and diastolic (congestive) heart failure; E03.9 Hypothyroidism, unspecified; Z95.810 Presence of automatic (implantable) cardiac defibrillator; Z95.2 Presence of prosthetic heart valve; Z98.84 Bariatric surgery status; Z20.822 Contact with and (suspected) exposure to COVID-19; M10.9 Gout, unspecified; D69.6 Thrombocytopenia, unspecified; Z79.01 Long term (current) use of anticoagulants; Z79.82 Long term (current) use of aspirin; Z79.890 Hormone replacement therapy; Z79.899 Other long term (current) drug therapy
CPT/HCPCS: 36415; 73120; 73200; 80048; 80053; 80202; 83605; 84550; 85025; 85610; 87040; 87635; 99218; 99285; J0690; J2543; J2930; J3370

== ENCOUNTER → 2021-10-24 13:40 | Outpatient (BNVA) | payer MEDICARE, SELFPAY | PROVIDERS: PCP Internal Medicine; Visit Provider Internal Medicine | DX: Z95.2 Presence of prosthetic heart valve (principal) | CPT/HCPCS: Q3014 ==

== ENCOUNTER → 2021-10-28 11:23 | Outpatient (BNVA) | payer MEDICARE, SELFPAY | PROVIDERS: PCP Internal Medicine; Visit Provider Internal Medicine | DX: Z95.2 Presence of prosthetic heart valve (principal) | CPT/HCPCS: Q3014 ==

== ENCOUNTER → 2021-10-31 10:31 | Outpatient (BNVA) | payer MEDICARE, SELFPAY | PROVIDERS: PCP Internal Medicine; Visit Provider Internal Medicine | DX: Z95.2 Presence of prosthetic heart valve (principal) | CPT/HCPCS: Q3014 ==

== ENCOUNTER → 2021-11-04 15:51 | Outpatient (BNVA) | payer MEDICARE, SELFPAY | PROVIDERS: PCP Internal Medicine; Visit Provider Internal Medicine | DX: Z95.2 Presence of prosthetic heart valve (principal); Z51.81 Encounter for therapeutic drug level monitoring; Z79.01 Long term (current) use of anticoagulants | CPT/HCPCS: Q3014 ==

== ENCOUNTER → 2021-11-12 14:19 | Outpatient (BNVA) | payer MEDICARE, SELFPAY | PROVIDERS: PCP Internal Medicine; Visit Provider Internal Medicine | DX: Z95.2 Presence of prosthetic heart valve (principal); Z51.81 Encounter for therapeutic drug level monitoring; Z79.01 Long term (current) use of anticoagulants | CPT/HCPCS: Q3014 ==

== ENCOUNTER → 2021-11-18 15:31 | Outpatient (BNVA) | payer MEDICARE, SELFPAY | PROVIDERS: PCP Internal Medicine; Visit Provider Internal Medicine | DX: Z95.2 Presence of prosthetic heart valve (principal); Z51.81 Encounter for therapeutic drug level monitoring; Z79.01 Long term (current) use of anticoagulants | CPT/HCPCS: Q3014 ==

== ENCOUNTER 2021-11-20 12:44 | Outpatient (REF) | payer MEDICARE, SELFPAY ==
[2021-11-20 13:02] LABS: MANUAL DIFF FLAG NO
[2021-11-20 13:12] LABS: Basophils Percent Auto 0.2 % (0-2); Eosinophils Absolute Auto 0.1 X10*3/uL (0.0-0.4); Eosinophils Percent Auto 2.2 % (0-4); Hemoglobin 9.4 g/dl (12.0-16.0); Lymphocytes Absolute Auto 0.4 X10*3/uL (1.2-4.9); Lymphocytes Percent Auto 9.2 % (20-40); Mean Corpuscular HGB Conc 29.4 g/dl (31.0-35.0); Mean Corpuscular Hemoglobin 28.2 pg (27.0-33.0); Mean Corpuscular Volume 96.1 fL (80.0-98.0); Mean Platelet Volume 11.6 fL (9.4-12.3); Monocytes Absolute Auto 0.5 X10*3/uL (0.1-1.2); Neutrophils Percent Auto 75.4 % (45-73); Platelet Count 124 X10*3/uL (160-400); Red Blood Count 3.33 X10*6/uL (4.20-5.50); Red Cell Distribution Width 20.6 % (11.0-16.0)
[2021-11-20 13:43] LABS: Anion Gap 14 (12-20); Blood Urea Nitrogen 91 mg/dL (9-16); Calcium 8.6 mg/dL (8.4-10.2); Carbon Dioxide 30 mmol/L (22-29); Chloride 103 mmol/L (96-108); Estimated Glomerular Filt Rate 16; Glucose Random 83 mg/dL (60-115); Potassium 4.7 mmol/L (3.3-5.1); Sodium 142 mmol/L (135-145)
== END 2021-11-20 12:45 | disposition home or self-care (01) ==
LOC: HO.LAB 12:44
PROVIDERS: PCP Internal Medicine; Visit Provider Internal Medicine
DX: I50.22 Chronic systolic (congestive) heart failure (principal)
CPT/HCPCS: 36415; 80048; 85025

== ENCOUNTER → 2021-11-22 10:27 | Outpatient (BNVA) | payer MEDICARE, SELFPAY | PROVIDERS: PCP Internal Medicine | DX: R31.9 Hematuria, unspecified (principal) | CPT/HCPCS: 99212 ==

== ENCOUNTER → 2021-11-28 10:56 | Outpatient (BNVA) | payer MEDICARE, SELFPAY | PROVIDERS: PCP Internal Medicine; Visit Provider Internal Medicine ==

== ENCOUNTER → 2021-12-03 13:15 | Outpatient (BNVA) | payer MEDICARE, SELFPAY | PROVIDERS: PCP Internal Medicine; Referring Provider Internal Medicine; Visit Provider Nurse Practitioner Family | DX: I50.22 Chronic systolic (congestive) heart failure (principal); I25.5 Ischemic cardiomyopathy; I48.20 Chronic atrial fibrillation, unspecified; Z95.2 Presence of prosthetic heart valve; Z95.810 Presence of automatic (implantable) cardiac defibrillator | CPT/HCPCS: 99212 ==

== ENCOUNTER → 2021-12-05 10:15 | Outpatient (BNVA) | payer MEDICARE, SELFPAY | PROVIDERS: PCP Internal Medicine; Visit Provider Internal Medicine | DX: Z95.2 Presence of prosthetic heart valve (principal); Z51.81 Encounter for therapeutic drug level monitoring; Z79.01 Long term (current) use of anticoagulants | CPT/HCPCS: Q3014 ==

== ENCOUNTER → 2021-12-09 10:02 | Outpatient (BNVA) | payer MEDICARE, SELFPAY | PROVIDERS: PCP Internal Medicine; Visit Provider Internal Medicine | DX: Z95.2 Presence of prosthetic heart valve (principal); Z51.81 Encounter for therapeutic drug level monitoring; Z79.01 Long term (current) use of anticoagulants | CPT/HCPCS: Q3014 ==

== ENCOUNTER → 2021-12-16 11:40 | Outpatient (BNVA) | payer MEDICARE, SELFPAY | PROVIDERS: PCP Internal Medicine; Visit Provider Internal Medicine | DX: Z95.2 Presence of prosthetic heart valve (principal); Z51.81 Encounter for therapeutic drug level monitoring; Z79.01 Long term (current) use of anticoagulants | CPT/HCPCS: Q3014 ==

== ENCOUNTER 2021-12-20 15:07 | Outpatient (REF) | payer MEDICARE, SELFPAY ==
[2021-12-20 16:23] LABS: Anion Gap 17 (12-20); Blood Urea Nitrogen 75 mg/dL (9-16); Calcium 8.6 mg/dL (8.4-10.2); Carbon Dioxide 27 mmol/L (22-29); Chloride 102 mmol/L (96-108); Estimated Glomerular Filt Rate 15; Glucose Random 123 mg/dL (60-115); Potassium 4.7 mmol/L (3.3-5.1); Sodium 141 mmol/L (135-145)
== END 2021-12-20 15:08 | disposition home or self-care (01) ==
LOC: HO.LAB 15:07
PROVIDERS: PCP Internal Medicine; Visit Provider Internal Medicine Hypertension Specialist
DX: N18.4 Chronic kidney disease, stage 4 (severe) (principal); I50.22 Chronic systolic (congestive) heart failure
CPT/HCPCS: 36415; 80048

== ENCOUNTER 2021-12-23 11:41 | Outpatient (REF) | payer MEDICARE, SELFPAY ==
[2021-12-23 13:13] LABS: Anion Gap 14 (12-20); Blood Urea Nitrogen 84 mg/dL (9-16); Calcium 8.8 mg/dL (8.4-10.2); Carbon Dioxide 29 mmol/L (22-29); Chloride 101 mmol/L (96-108); Estimated Glomerular Filt Rate 17; Glucose Random 99 mg/dL (60-115); Potassium 4.5 mmol/L (3.3-5.1); Sodium 139 mmol/L (135-145)
[2021-12-23 14:50] LABS: Appearance Urine CLEAR; Color Urine YELLOW; Glucose Urine UA NEG (NEG); Leukocyte Esterase Urine NEG (NEG); Nitrite Urine NEG (NEG); PH 5.5 (5.0-8.0); Urine Blood TRACE (NEG); Urine Ketones NEG (NEG); Urine Protein 2+ MG/DL (NEG-TRACE)
[2021-12-23 15:17] LABS: Bacteria Urine TRACE /LPF; Squamous Epithelial Cell Urine TRACE /LPF
[2021-12-23 15:19] LABS: Creatinine Urine 32.81 mg/dL
[2021-12-23 15:34] LABS: Microalbum/Creatinine Ratio Ur 6022.5 ug/mg cr
[2021-12-25 17:11] LABS: Urea, Random Urine 373 mg/dL
== END 2021-12-23 11:42 | disposition home or self-care (01) ==
LOC: HO.LAB 11:41
PROVIDERS: PCP Internal Medicine; Visit Provider Internal Medicine Nephrology
DX: Z95.2 Presence of prosthetic heart valve (principal); N17.9 Acute kidney failure, unspecified; N18.4 Chronic kidney disease, stage 4 (severe); Z51.81 Encounter for therapeutic drug level monitoring; Z79.01 Long term (current) use of anticoagulants
CPT/HCPCS: 36415; 80048; 81001; 82043; 84300; 84540; Q3014

== ENCOUNTER 2021-12-31 09:30 | Outpatient (REF) | payer MEDICARE, SELFPAY ==
--- NOTE | ~2021-12-31 | US_ITS ---
EXAMINATION: US ABDOMEN COMPLETE CLINICAL INFORMATION: Elevated LFTs. COMPARISON: Limited abdominal ultrasound 10/11/2021. CT abdomen and pelvis 05/23/2021. Ultrasound abdomen complete 03/29/2021. TECHNIQUE: Real-time imaging of the abdominal viscera. FINDINGS: PANCREAS: The pancreas appears slightly prominent and low in heterogeneous in attenuation. No focal pancreatic lesion. No pancreatic duct dilatation. ABDOMINAL AORTA: Atherosclerotic disease. INFERIOR VENA CAVA: The hepatic IVC and hepatic veins are prominent. LIVER: Liver echotexture is slightly increased and heterogeneous suggestive of hepatocellular disease. The contour of the liver is slightly irregular suggestive of mild cirrhotic change. The hepatic veins and IVC are enlarged. The main portal vein is patent with appropriate hepatopedal flow. There is increased phasic flow in the portal vein and IVC and intrahepatic veins. Findings are questionable for changes from right heart compromise. No focal hepatic lesion. There is no intrahepatic biliary duct dilatation seen. GALLBLADDER: Gallbladder is normal in size. The gallbladder wall appears thickened measuring 0.5 cm. No gallstones are seen. COMMON BILE DUCT: Normal in caliber measuring 0.2 cm in diameter. RIGHT KIDNEY: There are 4 cysts, largest measuring 3.6 x 2.9 x 3 cm in the lower pole. No hydronephrosis or renal calculi. The kidney measures 11.8 cm in maximum dimension. LEFT KIDNEY: There are 2 cysts measuring 7 mm in the upper and lower pole No hydronephrosis or renal calculi. The kidney measures 10.3 cm in maximum dimension. SPLEEN: Normal. The spleen measures 11.7 cm in maximum dimension. FREE FLUID: There is a small amount of ascites. There are bilateral pleural effusions. US/US abdomen complete IMPRESSION: Mild cirrhotic changes of the liver. Small amount of ascites. Dilated IVC and hepatic veins. Small bilateral pleural effusions. Cirrhotic changes based on right heart compromise is suspected. Thickened gallbladder wall. No gallstone seen. This may be related to liver disease. Slightly prominent heterogeneous pancreas. No focal lesion seen. Bilateral renal cysts.
[2021-12-31 11:37] LABS: MANUAL DIFF FLAG NO
[2021-12-31 11:46] LABS: Basophils Percent Auto 0.3 % (0-2); Eosinophils Absolute Auto 0.1 X10*3/uL (0.0-0.4); Eosinophils Percent Auto 2.3 % (0-4); Hematocrit 34.5 % (37.0-47.0); Imm Gran Abs Auto 0.02 X10*3/uL (0.00-0.03); Imm Gran Pct Auto 0.3 % (0.0-0.4); Lymphocytes Absolute Auto 0.5 X10*3/uL (1.2-4.9); Lymphocytes Percent Auto 8.3 % (20-40); Mean Corpuscular Hemoglobin 28.2 pg (27.0-33.0); Mean Corpuscular Volume 97.5 fL (80.0-98.0); Mean Platelet Volume 11.2 fL (9.4-12.3); Monocytes Absolute Auto 0.5 X10*3/uL (0.1-1.2); Monocytes Percent Auto 7.9 % (2-11); Neutrophils Absolute Auto 4.9 x10*3/uL (2.0-8.3); Neutrophils Percent Auto 80.9 % (45-73); Platelet Count 163 X10*3/uL (160-400); Red Blood Count 3.54 X10*6/uL (4.20-5.50); Red Cell Distribution Width 19.8 % (11.0-16.0); White Blood Count 6.1 X10*3/uL (4.8-10.8)
[2021-12-31 12:09] LABS: Anion Gap 18 (12-20); Blood Urea Nitrogen 75 mg/dL (9-16); Calcium 8.9 mg/dL (8.4-10.2); Carbon Dioxide 26 mmol/L (22-29); Chloride 103 mmol/L (96-108); Estimated Glomerular Filt Rate 17; Glucose Random 83 mg/dL (60-115); Potassium 4.8 mmol/L (3.3-5.1); Sodium 142 mmol/L (135-145)
== END 2021-12-31 09:31 | disposition home or self-care (01) ==
LOC: HO.HMGCLDS 09:30
PROVIDERS: PCP Internal Medicine; Visit Provider Internal Medicine
DX: I50.22 Chronic systolic (congestive) heart failure (principal); R18.8 Other ascites; R79.89 Other specified abnormal findings of blood chemistry; Z95.2 Presence of prosthetic heart valve; Z51.81 Encounter for therapeutic drug level monitoring; Z79.01 Long term (current) use of anticoagulants
CPT/HCPCS: 36415; 76700; 80048; 85025

== ENCOUNTER → 2022-01-06 11:52 | Outpatient (BNVA) | payer MEDICARE, SELFPAY | PROVIDERS: PCP Internal Medicine; Visit Provider Internal Medicine | DX: Z95.2 Presence of prosthetic heart valve (principal); Z51.81 Encounter for therapeutic drug level monitoring; Z79.01 Long term (current) use of anticoagulants | CPT/HCPCS: 99211 ==

== ENCOUNTER → 2022-01-13 10:59 | Outpatient (BNVA) | payer MEDICARE, SELFPAY | PROVIDERS: PCP Internal Medicine; Visit Provider Internal Medicine | DX: Z95.2 Presence of prosthetic heart valve (principal); Z51.81 Encounter for therapeutic drug level monitoring; Z79.01 Long term (current) use of anticoagulants | CPT/HCPCS: Q3014 ==

== ENCOUNTER 2022-01-16 13:21 | Outpatient (REF) | payer MEDICARE, SELFPAY ==
[2022-01-16 16:26] LABS: MANUAL DIFF FLAG NO
[2022-01-16 16:27] LABS: Basophils Percent Auto 0.3 % (0-2); Eosinophils Absolute Auto 0.1 X10*3/uL (0.0-0.4); Eosinophils Percent Auto 0.9 % (0-4); Hematocrit 35.4 % (37.0-47.0); Hemoglobin 10.3 g/dl (12.0-16.0); Imm Gran Abs Auto 0.02 X10*3/uL (0.00-0.03); Imm Gran Pct Auto 0.3 % (0.0-0.4); Lymphocytes Absolute Auto 0.3 X10*3/uL (1.2-4.9); Lymphocytes Percent Auto 4.9 % (20-40); Mean Corpuscular HGB Conc 29.1 g/dl (31.0-35.0); Mean Corpuscular Hemoglobin 28.8 pg (27.0-33.0); Mean Corpuscular Volume 98.9 fL (80.0-98.0); Mean Platelet Volume 11.8 fL (9.4-12.3); Monocytes Absolute Auto 0.7 X10*3/uL (0.1-1.2); Monocytes Percent Auto 10.4 % (2-11); Neutrophils Absolute Auto 5.4 x10*3/uL (2.0-8.3); Neutrophils Percent Auto 83.2 % (45-73); Platelet Count 107 X10*3/uL (160-400); Red Blood Count 3.58 X10*6/uL (4.20-5.50); White Blood Count 6.5 X10*3/uL (4.8-10.8)
[2022-01-16 16:39] LABS: Anion Gap 19 (12-20); Blood Urea Nitrogen 86 mg/dL (9-16); Calcium 8.4 mg/dL (8.4-10.2); Carbon Dioxide 22 mmol/L (22-29); Chloride 104 mmol/L (96-108); Estimated Glomerular Filt Rate 18; Glucose Random 109 mg/dL (60-115); Potassium 4.7 mmol/L (3.3-5.1); Sodium 140 mmol/L (135-145)
== END 2022-01-16 13:22 | disposition home or self-care (01) ==
LOC: HO.HMGCLDS 13:21
PROVIDERS: Visit Provider Internal Medicine
DX: I50.22 Chronic systolic (congestive) heart failure (principal)
CPT/HCPCS: 36415; 80048; 85025

== ENCOUNTER → 2022-01-21 13:48 | Outpatient (BNVA) | payer MEDICARE, SELFPAY | PROVIDERS: PCP Internal Medicine; Visit Provider Internal Medicine | DX: Z13.89 Encounter for screening for other disorder (principal) ==

== ENCOUNTER 2022-01-27 13:58 | Outpatient (REF) | payer MEDICARE, SELFPAY ==
[2022-01-27 16:54] LABS: MANUAL DIFF FLAG NO
[2022-01-27 16:59] LABS: Basophils Percent Auto 0.3 % (0-2); Eosinophils Absolute Auto 0.1 X10*3/uL (0.0-0.4); Eosinophils Percent Auto 0.8 % (0-4); Hematocrit 38.4 % (37.0-47.0); Hemoglobin 11.4 g/dl (12.0-16.0); Imm Gran Abs Auto 0.02 X10*3/uL (0.00-0.03); Imm Gran Pct Auto 0.3 % (0.0-0.4); Lymphocytes Absolute Auto 0.4 X10*3/uL (1.2-4.9); Lymphocytes Percent Auto 6.7 % (20-40); Mean Corpuscular HGB Conc 29.7 g/dl (31.0-35.0); Mean Corpuscular Volume 97.7 fL (80.0-98.0); Mean Platelet Volume 12.8 fL (9.4-12.3); Monocytes Absolute Auto 0.5 X10*3/uL (0.1-1.2); Neutrophils Absolute Auto 5.5 x10*3/uL (2.0-8.3); Neutrophils Percent Auto 83.9 % (45-73); Platelet Count 145 X10*3/uL (160-400); Red Blood Count 3.93 X10*6/uL (4.20-5.50); Red Cell Distribution Width 18.8 % (11.0-16.0); White Blood Count 6.5 X10*3/uL (4.8-10.8)
[2022-01-27 17:07] LABS: Anion Gap 16 (12-20); Blood Urea Nitrogen 77 mg/dL (9-16); Calcium 8.9 mg/dL (8.4-10.2); Carbon Dioxide 25 mmol/L (22-29); Chloride 103 mmol/L (96-108); Estimated Glomerular Filt Rate 16; Glucose Random 102 mg/dL (60-115); Potassium 4.3 mmol/L (3.3-5.1); Sodium 140 mmol/L (135-145)
== END 2022-01-27 13:59 | disposition home or self-care (01) ==
LOC: HO.HMGCLR 13:58
PROVIDERS: PCP Internal Medicine; Visit Provider Internal Medicine
DX: I50.22 Chronic systolic (congestive) heart failure (principal)
CPT/HCPCS: 36415; 80048; 85025

== ENCOUNTER → 2022-02-03 13:51 | Outpatient (BNVA) | payer MEDICARE, SELFPAY | PROVIDERS: PCP Internal Medicine; Visit Provider Internal Medicine | DX: Z95.2 Presence of prosthetic heart valve (principal); Z51.81 Encounter for therapeutic drug level monitoring; Z79.01 Long term (current) use of anticoagulants | CPT/HCPCS: Q3014 ==

== ENCOUNTER → 2022-02-10 13:16 | Outpatient (BNVA) | payer MEDICARE, SELFPAY | PROVIDERS: PCP Internal Medicine; Visit Provider Internal Medicine | DX: Z13.89 Encounter for screening for other disorder (principal) ==

== ENCOUNTER → 2022-02-17 14:53 | Outpatient (BNVA) | payer MEDICARE, SELFPAY | PROVIDERS: PCP Internal Medicine; Visit Provider Internal Medicine | DX: Z95.2 Presence of prosthetic heart valve (principal); Z51.81 Encounter for therapeutic drug level monitoring; Z79.01 Long term (current) use of anticoagulants | CPT/HCPCS: Q3014 ==

== ENCOUNTER 2022-02-24 13:25 | Outpatient (REF) | payer OTHER, SELFPAY ==
[2022-02-24 13:43] LABS: MANUAL DIFF FLAG NO
[2022-02-24 14:08] LABS: Basophils Percent Auto 0.2 % (0-2); Eosinophils Absolute Auto 0.1 X10*3/uL (0.0-0.4); Eosinophils Percent Auto 1.3 % (0-4); Hematocrit 36.8 % (37.0-47.0); Hemoglobin 11.2 g/dl (12.0-16.0); Imm Gran Abs Auto 0.02 X10*3/uL (0.00-0.03); Imm Gran Pct Auto 0.4 % (0.0-0.4); Lymphocytes Absolute Auto 0.4 X10*3/uL (1.2-4.9); Lymphocytes Percent Auto 6.7 % (20-40); Mean Corpuscular HGB Conc 30.4 g/dl (31.0-35.0); Mean Corpuscular Hemoglobin 29.2 pg (27.0-33.0); Mean Corpuscular Volume 95.8 fL (80.0-98.0); Mean Platelet Volume 12.1 fL (9.4-12.3); Monocytes Absolute Auto 0.5 X10*3/uL (0.1-1.2); Monocytes Percent Auto 9.6 % (2-11); Neutrophils Absolute Auto 4.2 x10*3/uL (2.0-8.3); Neutrophils Percent Auto 81.8 % (45-73); Platelet Count 126 X10*3/uL (160-400); Red Blood Count 3.84 X10*6/uL (4.20-5.50); Red Cell Distribution Width 18.6 % (11.0-16.0); White Blood Count 5.2 X10*3/uL (4.8-10.8)
[2022-02-24 14:34] LABS: Anion Gap 14 (12-20); Blood Urea Nitrogen 93 mg/dL (9-16); Calcium 9.1 mg/dL (8.4-10.2); Carbon Dioxide 26 mmol/L (22-29); Chloride 106 mmol/L (96-108); Estimated Glomerular Filt Rate 15; Glucose Random 106 mg/dL (60-115); Potassium 4.4 mmol/L (3.3-5.1); Sodium 142 mmol/L (135-145)
== END 2022-02-24 13:26 | disposition home or self-care (01) ==
LOC: HO.LAB 13:25
PROVIDERS: PCP Internal Medicine; Visit Provider Internal Medicine
DX: I50.22 Chronic systolic (congestive) heart failure (principal)
CPT/HCPCS: 36415; 80048; 85025

== ENCOUNTER → 2022-02-25 10:46 | Outpatient (BNVA) | payer OTHER, SELFPAY | PROVIDERS: PCP Internal Medicine; Visit Provider Internal Medicine | DX: Z95.2 Presence of prosthetic heart valve (principal); Z79.01 Long term (current) use of anticoagulants; Z51.81 Encounter for therapeutic drug level monitoring | CPT/HCPCS: Q3014 ==

== ENCOUNTER → 2022-03-03 11:08 | Outpatient (BNVA) | payer OTHER, SELFPAY | PROVIDERS: PCP Internal Medicine | DX: R31.9 Hematuria, unspecified (principal); N28.1 Cyst of kidney, acquired | CPT/HCPCS: 99212 ==

== ENCOUNTER → 2022-03-04 12:04 | Outpatient (BNVA) | payer OTHER, SELFPAY | PROVIDERS: PCP Internal Medicine; Referring Provider Internal Medicine; Visit Provider Internal Medicine Cardiovascular Disease | DX: I50.20 Unspecified systolic (congestive) heart failure (principal); I48.20 Chronic atrial fibrillation, unspecified; Z95.2 Presence of prosthetic heart valve; Z95.810 Presence of automatic (implantable) cardiac defibrillator; Z79.01 Long term (current) use of anticoagulants; Z79.899 Other long term (current) drug therapy | CPT/HCPCS: 99212 ==

== ENCOUNTER 2022-03-04 14:00 | Outpatient (RCR) | payer OTHER, SELFPAY ==
[2020-08-14 12:32] LABS: Basophils Percent Auto 0.3 % (0-2); Eosinophils Absolute Auto 0.1 X10*3/uL (0.0-0.4); Eosinophils Percent Auto 2.2 % (0-4); Hematocrit 33.8 % (37-47); Imm Gran Abs Auto 0.02 X10*3/uL (0.00-0.03); Imm Gran Pct Auto 0.3 % (0.0-0.4); Lymphocytes Absolute Auto 0.6 X10*3/uL (1.2-4.9); Lymphocytes Percent Auto 9.2 % (20-40); MANUAL DIFF FLAG SCAN; Mean Corpuscular HGB Conc 29.6 g/dl (31.0-35.0); Mean Corpuscular Hemoglobin 25.8 pg (27.0-33.0); Mean Corpuscular Volume 87.3 fL (80-98); Mean Platelet Volume 11.8 fL (9.4-12.3); Monocytes Absolute Auto 0.6 X10*3/uL (0.1-1.2); Monocytes Percent Auto 8.8 % (2-11); Neutrophils Absolute Auto 5.1 X10*3/uL (2.0-8.3); Neutrophils Percent Auto 79.2 % (45-73); Platelet Count 119 X10*3/uL (160-400); Red Blood Count 3.87 X10*6/uL (4.20-5.50); Red Cell Distribution Width 19.1 % (11.0-16.0); SCAN SMEAR FLAG 1; White Blood Count 6.4 X10*3/uL (4.8-10.8)
[2020-08-14 13:12] LABS: SLIDE REVIEW VERIFIED
[2020-08-14 13:29] LABS: Alanine Aminotransferase 24 U/L (0-31); Albumin Level 3.6 g/dL (3.5-5.0); Alkaline Phosphatase 138 U/L (39-117); Anion Gap 13 (12-20); Aspartate Amino Transferase 24 U/L (5-31); Bilirubin Total 0.8 mg/dL (0.0-1.0); Blood Urea Nitrogen 55 mg/dL (9-16); Calcium 8.9 mg/dL (8.4-10.2); Carbon Dioxide 24 mmol/L (22-29); Chloride 104 mmol/L (96-108); Estimated Glomerular Filt Rate 22; Glucose Random 98 mg/dL (60-115); Potassium 4.5 mmol/l (3.3-5.1); Sodium 136 mmol/L (135-145); Total Protein 7.2 g/dL (6.5-8.0)
[2020-08-14 13:36] VITALS: BP 108/59; PULSE 81; RESP 18; TEMP 36.8; O2SAT 93; BMI 27.6
[2020-08-14] MEDS: Epoetin Alfa 40,000 UNIT/ML VIAL 40000 UNIT SUBCUT (13:45)
--- NOTE | 2020-08-14 15:45 | MHC.HEMONC ---
pt here for Procrit. Labs reviewed HGB 10. No new changes. Return in 2 weeks.
[2020-08-29 13:04] VITALS: BP 112/56; PULSE 75; RESP 18; TEMP 36.6; O2SAT 95
[2020-08-29 13:07] VITALS: BMI 27.6
[2020-08-29 14:24] LABS: Alanine Aminotransferase 18 U/L (0-31); Albumin Level 3.4 g/dL (3.5-5.0); Alkaline Phosphatase 154 U/L (39-117); Anion Gap 12 (12-20); Aspartate Amino Transferase 19 U/L (5-31); Bilirubin Total 0.7 mg/dL (0.0-1.0); Blood Urea Nitrogen 58 mg/dL (9-16); Calcium 8.3 mg/dL (8.4-10.2); Carbon Dioxide 28 mmol/L (22-29); Chloride 102 mmol/L (96-108); Creatinine Clr Calc Pharmacy 25.8; Estimated Glomerular Filt Rate 20; Glucose Random 110 mg/dL (60-115); Potassium 3.9 mmol/l (3.3-5.1); Sodium 138 mmol/L (135-145); Total Protein 6.8 g/dL (6.5-8.0)
[2020-08-29] MEDS: Epoetin Alfa 40,000 UNIT/ML VIAL 40000 UNIT SUBCUT (14:33)
--- NOTE | 2020-08-29 15:58 | MHC.HEMONC ---
pt here for labs and Procrit. HGB 9.5. Pt to return in 2 weeks.
[2020-09-11 10:03] VITALS: BMI 27.0
[2020-09-11 11:52] LABS: Basophils Percent Auto 0.4 % (0-2); Eosinophils Absolute Auto 0.1 X10*3/uL (0.0-0.4); Eosinophils Percent Auto 1.9 % (0-4); Hematocrit 30.8 % (37-47); Hemoglobin 9.3 g/dl (12.0-16.0); Imm Gran Abs Auto 0.02 X10*3/uL (0.00-0.03); Imm Gran Pct Auto 0.3 % (0.0-0.4); Lymphocytes Absolute Auto 0.7 X10*3/uL (1.2-4.9); Lymphocytes Percent Auto 9.8 % (20-40); MANUAL DIFF FLAG SCAN; Mean Corpuscular HGB Conc 30.2 g/dl (31.0-35.0); Mean Corpuscular Volume 86.3 fL (80-98); Monocytes Absolute Auto 0.5 X10*3/uL (0.1-1.2); Neutrophils Absolute Auto 5.3 X10*3/uL (2.0-8.3); Neutrophils Percent Auto 79.6 % (45-73); Platelet Count 152 X10*3/uL (160-400); Red Blood Count 3.57 X10*6/uL (4.20-5.50); SCAN SMEAR FLAG 1; White Blood Count 6.7 X10*3/uL (4.8-10.8)
[2020-09-11 11:54] LABS: Mean Corpuscular Hemoglobin 26.1 pg (27.0-33.0)
[2020-09-11 12:02] LABS: Glucose Urine UA NEG (NEG); Leukocyte Esterase Urine NEG (NEG); Nitrite Urine NEG (NEG); Urine Blood 1+ (NEG); Urine Ketones NEG (NEG); Urine Protein 2+ MG/DL (NEG-TRACE)
[2020-09-11 12:07] LABS: Appearance Urine CLEAR; Color Urine YELLOW
[2020-09-11] MEDS: Epoetin Alfa 40,000 UNIT/ML VIAL 40000 UNIT SUBCUT (12:26)
[2020-09-11 12:28] LABS: SLIDE REVIEW VERIFIED
[2020-09-11 12:39] LABS: Alanine Aminotransferase 18 U/L (0-31); Albumin Level 3.3 g/dL (3.5-5.0); Alkaline Phosphatase 154 U/L (39-117); Anion Gap 15 (12-20); Aspartate Amino Transferase 22 U/L (5-31); Bilirubin Total 0.9 mg/dL (0.0-1.0); Blood Urea Nitrogen 61 mg/dL (9-16); Calcium 8.1 mg/dL (8.4-10.2); Carbon Dioxide 24 mmol/L (22-29); Chloride 104 mmol/L (96-108); Creatinine Clr Calc Pharmacy 24.3; Estimated Glomerular Filt Rate 19; Glucose Random 89 mg/dL (60-115); Sodium 139 mmol/L (135-145)
[2020-09-11 12:41] LABS: Squamous Epithelial Cell Urine 1+ /LPF
[2020-09-23 10:00] VITALS: BP 131/74; PULSE 90; TEMP 36.6; O2SAT 95
[2020-09-24 14:34] LABS: Basophils Percent Auto 0.3 % (0-2); Eosinophils Absolute Auto 0.1 X10*3/uL (0.0-0.4); Eosinophils Percent Auto 2.1 % (0-4); Hematocrit 31.9 % (37-47); Hemoglobin 9.6 g/dl (12.0-16.0); Imm Gran Abs Auto 0.01 X10*3/uL (0.00-0.03); Imm Gran Pct Auto 0.2 % (0.0-0.4); Lymphocytes Absolute Auto 0.7 X10*3/uL (1.2-4.9); Lymphocytes Percent Auto 11.1 % (20-40); MANUAL DIFF FLAG SCAN; Mean Corpuscular HGB Conc 30.1 g/dl (31.0-35.0); Mean Corpuscular Hemoglobin 26.2 pg (27.0-33.0); Mean Corpuscular Volume 87.2 fL (80-98); Mean Platelet Volume 11.2 fL (9.4-12.3); Monocytes Absolute Auto 0.6 X10*3/uL (0.1-1.2); Monocytes Percent Auto 10.4 % (2-11); Neutrophils Absolute Auto 4.4 X10*3/uL (2.0-8.3); Neutrophils Percent Auto 75.9 % (45-73); Platelet Count 126 X10*3/uL (160-400); Red Blood Count 3.66 X10*6/uL (4.20-5.50); Red Cell Distribution Width 19.9 % (11.0-16.0); SCAN SMEAR FLAG 1; White Blood Count 5.8 X10*3/uL (4.8-10.8)
--- NOTE | 2020-09-24 14:53 | P.PNHO_ITS ---
Medical Summary - Medical Summary Chief complaint: F/U for: 1. Breast cancer. 2. Amyloidosis. 3. ACD. 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 2) Amyloidosis. 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 Anemia is related to that with an eGFR of 35. CURRENT THERAPY: 1. Tamoxifen, started on October 10, 2008. 2. Letrozole, started end of May 2012. 3. Procrit, q 2 weeks. PRN. 4. Tocilizumab 4mg/kg, started 2017. 23rd cycle on January 08. Currently on hold. Interval History Interval history: This is a pleasant 70 year-old lady, here for a follow-up visit. When questioned, what is wrong? she says, everything. She does feel rather fatigued. She is worried about the pandemic. She denies fever nor chills. No headache no dizziness. No chest pain or trouble breathing. She had an echocardiogram done on Thursday. It showed an EF of 15-20%. She actually has an appointment with Cardiology tomorrow. No abdominal pain nausea vomiting heartburn indigestion. Bowels are rather constipated. No gross blood in the stools. She has been using Senokot and MiraLax for her constipation. These do appear to be helping. She enjoys a good appetite. Her weight is stable. She denies easy bruising nor systemic bleeding. She has had joint pains including back, hip and knees. Leg pain upon sitting too long. Sometimes she cannot even sleep due to the pain. She has been trying heating pad, patches and cream to get rid of the pain. She Has an appointment with Dr. Villasenor . She is in good spirits. Rest of the review of systems is unremarkable. Review of Systems - Constitutional Reports system reviewed and no additional complaints, except as documented, Reports fatigue, Denies anorexia, Denies fever(s) - Eyes Reports system reviewed and no additional complaints, except as documented - ENT Reports system reviewed and no additional complaints, except as documented - Cardiovascular Reports system reviewed and no additional complaints, except as documented, Reports shortness of breath with activity - Respiratory Reports no additional respiratory complaints - Gastrointestinal Reports system reviewed and no additional complaints, except as documented, Denies abdominal pain, Denies black, tarry stools - Genitourinary Reports no additional female genitourinary complaints - Musculoskeletal Reports system reviewed and no additional complaints, except as documented - Integumentary/Breasts Skin/Breast: Reports no additional skin complaints - Neurologic Reports system reviewed and no additional complaints, except as documented - Psychiatric Reports system reviewed and no additional complaints, except as documented - Endocrine Reports no additional endocrine complaints [facility] Medical History: Medical History (Last Updated 09/25/20 @ 15:00 by Lonnie Estrella MD) Amyloidosis Anxiety and depression Arthritis Bladder hypertonicity Chronic atrial fibrillation Chronic HFrEF (heart failure with reduced ejection fraction) Chronic kidney disease (CKD) stage G4/A1, severely decreased glomerular filtration rate (GFR) between 15-29 mL/min/1.73 square meter and albuminuria creatinine ratio less than 30 mg/g Detached retina Gout Heart disease History of breast cancer HTN (hypertension) Hypercholesterolemia Hypothyroid ICD (implantable cardioverter-defibrillator) in place Ischemic cardiomyopathy Kidney disease Nephrolithiasis Osteoarthritis Overweight (BMI 25.0-29.9) Pulmonary hypertension Tricuspid regurgitation Urinary incontinence Functional capacity: uses cane/walker Patient : No Family History: Family History (Last Updated 09/06/20 @ 06:40 by FATMATA Jones) Mother Diabetes Father Past heart attack Diabetes Sister Parkinsons disease Surgical History: Surgical History (Last Updated 09/25/20 @ 15:06 by Lonnie Estrella MD) H/O abdominal hysterectomy H/O mitral valve replacement H/O mitral valve replacement with mechanical valve History of bunionectomy History of cataract surgery History of colonoscopy History of left inguinal hernia repair History of sleeve gastrectomy History of total right hip arthroplasty Home Medications and Allergies Current Medications: Current Medications Generic Name Dose Route Start Last Admin Trade Name Freq PRN Reason Stop Dose Admin Epoetin Maximino 40,000 unit 09/24/20 08:52 Epoetin Maximino 20,000 Unit/Ml Vial SUBCUT 09/24/20 08:53 ONCE ONE Home Medications Medication Instructions Recorded Confirmed Type acetaminophen 325 mg capsule 325 mg PO QID PRN 08/06/20 09/25/20 History colchicine 0.6 mg capsule 0.6 mg PO DAILY 08/06/20 09/25/20 History ferrous sulfate 325 mg (65 mg 325 mg PO DAILY 08/06/20 09/25/20 History iron) tablet,delayed release furosemide 40 mg tablet 40 mg PO Q OTHER DAY 08/06/20 09/25/20 History hydralazine 10 mg tablet 10 mg PO BID 08/06/20 09/25/20 History levothyroxine 137 mcg tablet 137 mcg PO DAILY 08/06/20 09/25/20 History melatonin 5 mg capsule mg PO 08/06/20 09/25/20 History rosuvastatin 10 mg tablet 10 mg PO DAILY 08/06/20 09/25/20 History vit C 250 mg-E 200 unit-zinc 40 1 tab PO BID 08/06/20 09/25/20 History mg-copper 1 [id number] capsule sertraline 100 mg tablet 150 mg PO DAILY tab 09/06/20 09/25/20 History flu vacc [id number](65yr up)-PF 240 ml IM 09/17/20 09/25/20 History mcg/0.7 mL intramuscular syringe Allergies Allergy/AdvReac Type Severity Reaction Status Date / Time NKDA Allergy Unknown NO KNOWN Uncoded 08/21/20 13:33 DRUG ALLERGIES - JUST PAPER TAPE TAPE,PAPER Allergy Unknown RASH TO Uncoded 08/21/20 13:33 PAPER TAPE Exam Vital signs: Vital Signs Temp 97.8 F 09/23/20 10:00 Pulse 90 09/23/20 10:00 Resp 18 08/29/20 13:04 BP 131/74 09/23/20 10:00 Pulse Ox 95 09/23/20 10:00 Weight 83.1 kg Body Mass Index 27.0 - Constitutional Present: mild distress - Routine HEENT Exam Head: Present: normal inspection ENT: Present: mucous membranes moist - Routine Respiratory Exam Present: CTAB - Routine Cardiovascular Exam Cardiovascular: Present: RRR, S1, S2, S3 - Routine Abdominal Exam Present: soft, nontender - Routine Rectal Exam Patient deferred: digital exam - Routine Extremities Exam Present: nontender - Routine Back/Spine/Pelvis Exam Back/Spine: Present: paraspinal tenderness - Routine Neurological Exam Present: alert, oriented X3 - Detailed Neurological Exam: Coma Scale Eye Opening: Spontaneous (4) Verbal Response: Oriented (5) Motor Response: Obeys commands (6) Glascow Coma Scale Total: 15 - Routine Psychiatric Exam Present: normal affect Data - Labs CBC & Chem 7: 11/16/20 14:20 09/24/20 14:20 Labs: Laboratory Results - last 24 hr 09/24/20 14:20 WBC 5.8 Hgb 9.6 L Hct 31.9 L Plt Count 126 L D Progress Note: A/P (1) Amyloidosis Status: Acute Assessment and plan: This is a pleasant 70-year-old lady, here for a follow-up visit. She had a renal biopsy on December 24 which revealed AA type Amyloidosis. I proceeded with a bone marrow exam, for further staging. This came back negative for involvement with amyloid. I proceeded with further valuation and staging. I requested an LDH, SIEP and serum free light chain ratio. LDH is 246. SIEP: IgG 1737 IgA 539 IgM 206 IMFIXS INTERP No abnormal bands are present on immunofixation. B-2 MICROGLOB 10.40 FREE KAPPA, SER 155.0 FREE LAMBDA SER 91.2 FREE K/L RATIO 1.70. HLA-B27 Positive Jan 25. Repeat free light chain ratio from 08/02/2018, revealed: FREE KAPPA, SER 60.9 FREE LAMBDA SER 32.6 FREE K/L RATIO 1.87 My concern was if she has cardiac involvement by amyloid. I checked an echocardiogram. This revealed moderate lady dilated LV, with severe LV systolic dysfunction, with RWMA in LAD territory, c/w ischemic cardiomyopathy. The LA is severely dilated. Prosthetic mitral valve appears to be functioning normally. Mild pulmonary hypertension. No pericardial effusion. Unfortunately she is not able to get an MRI of the heart due to the hardware, that she has. I checked NT proBNP(7622). She was sent to Dr. Kaelyn Deleon, in [place], he is the amyloid guru. He mentioned and that her renal biopsy was sent to [facility], he reviewed the molecular studies. He did confirm the diagnosis. He did feel that her joints are involved in the inflammatory process, that likley triggered AA Amyloid. He checked the serological studies as well. She was started on treatment for the amyloid, Tocilizumab, an IL-6 antibody. She has tolerated it very well. She has had 23 cycles. It did work. She felt better, overall. She has had 19 months of therapy with tocilizumab. I feel she has had a maximum benefit from the drug. I will hold off on further administration Tocilizumab. I would not like to expose her to long-term toxicity. (2) Chronic kidney disease (CKD) stage G3a/A3, moderately decreased glomerular filtration rate (GFR) between 45-59 mL/min/1.73 square meter and albuminuria creatinine ratio greater than 300 mg/g Status: Acute Assessment and plan: 2) Anemia of Chronic Kidney Disease. Stage IV. She had a renal biopsy. 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 Repeat renal biopsy from mid December 2017, raised concern for AA amyloidosis. Her creatinine level fluctuates, depending upon her hydration status and diuresis. Her kidney function is better, now. Her creatinine from today is 2.3. She follows with Dr. Estrella for CHF. Serum light chain ratio was 1.85 on November 14. SIEP from March 13 revealed: IgG 1107 IgA 560 H IgM 129 IMFIXS INTERP No abnormal bands are present on immunofixation. FREE KAPPA, SER 114.5 FREE LAMBDA SER 90.1 FREE K/L RATIO 1.27 She feels quite fatigued today. Her hemoglobin is 9.6. PLAN: She does need her Procrit, today. Will monitor her labs, and assess need for a transfusion. I will follow-up on her SIEP and light chain ratio. She will return weekly for labs and for possible Procrit therapy. She will be seen by ortho on . Thank you, Please send a copy to: Dr. Jin. Dr. Marquez. Dr. Lonnie Estrella. Dr. Pickard. Dr. Kaelyn Deleon. (3) Right knee pain Status: Acute (4) Chronic kidney disease (CKD) stage G4/A1, severely decreased glomerular filtration rate (GFR) between 15-29 mL/min/1.73 square meter and albuminuria creatinine ratio less than 30 mg/g Status: Acute (5) Breast cancer Status: Acute Assessment and plan: 69 year-old lady, with history of Mucinous Carcinoma of the left Breast, 1.8 cm. ER positive NM negative HER-2/tc negative sentinel node negative, stage pT 1C, N0 (i negative.) She was on Tamoxifen in October 2008 to April of 2012. She was then switched to Letrozole end of May 2012. She has completed 5 years of therapy, in the summer of 2016. She is clinically holding stable in that regard. She had a mammogram in January, which was negative. She has not had her mammogram this year yet. She had a bone density in November, which revealed osteopenia with a T-score of - 1.4. - Time Spent With Patient Total time spent is greater than 50% in coordination of care (as documented) at patient's floor/unit and/or counseling patient: 25 - 35 minutes
[2020-09-24 14:57] VITALS: BMI 24.3
[2020-09-24 14:58] VITALS: BP 113/70; PULSE 77; RESP 18; TEMP 37.1; O2SAT 98
[2020-09-24 15:11] LABS: Alanine Aminotransferase 22 U/L (0-31); Albumin Level 3.6 g/dL (3.5-5.0); Alkaline Phosphatase 161 U/L (39-117); Anion Gap 14 (12-20); Aspartate Amino Transferase 22 U/L (5-31); Bilirubin Total 0.9 mg/dL (0.0-1.0); Blood Urea Nitrogen 74 mg/dL (9-16); Calcium 8.4 mg/dL (8.4-10.2); Carbon Dioxide 26 mmol/L (22-29); Chloride 104 mmol/L (96-108); Creatinine Clr Calc Pharmacy 21.6; Estimated Glomerular Filt Rate 18; Glucose Random 85 mg/dL (60-115); Iron 36 mcg/dL (30-160); Percent Iron Saturation 14 % (15-50); Potassium 4.4 mmol/l (3.3-5.1); Sodium 140 mmol/L (135-145); Total Iron Binding Capacity 257 mcg/dL (228-428); Total Protein 7.4 g/dL (6.5-8.0); Unsaturated Iron Binding 221 ug/dL
[2020-09-24] MEDS: Epoetin Alfa 40,000 UNIT/ML VIAL 40000 UNIT SUBCUT (15:23)
[2020-09-24 15:27] LABS: SLIDE REVIEW VERIFIED
[2020-09-24 15:31] LABS: Ferritin 311 ng/mL (10-250)
--- NOTE | 2020-09-24 15:32 | MHC.HEMONC ---
Exam hgb 9.6 procrit given. Follow up in 2 weeks for labs ? procrit.
[2020-09-25 23:36] LABS: Kappa Light Chain, Free Serum 191.1 mg/L (3.3-19.4); Kappa/Lambda Lt Ch Free Ratio 1.93 (0.26-1.65)
[2020-09-26 12:27] LABS: IgA 699 mg/dL (70-320); IgG 1716 mg/dL (600-1540); IgM 188 mg/dL (50-300)
[2020-10-08 14:51] LABS: Basophils Percent Auto 0.2 % (0-2); Eosinophils Absolute Auto 0.1 X10*3/uL (0.0-0.4); Eosinophils Percent Auto 1.5 % (0-4); Hematocrit 31.7 % (37-47); Hemoglobin 9.6 g/dl (12.0-16.0); Imm Gran Abs Auto 0.03 X10*3/uL (0.00-0.03); Imm Gran Pct Auto 0.3 % (0.0-0.4); Lymphocytes Absolute Auto 0.6 X10*3/uL (1.2-4.9); Lymphocytes Percent Auto 5.7 % (20-40); MANUAL DIFF FLAG SCAN; Mean Corpuscular HGB Conc 30.3 g/dl (31.0-35.0); Mean Corpuscular Hemoglobin 26.6 pg (27.0-33.0); Mean Corpuscular Volume 87.8 fL (80-98); Mean Platelet Volume 11.3 fL (9.4-12.3); Monocytes Absolute Auto 0.7 X10*3/uL (0.1-1.2); Monocytes Percent Auto 7.1 % (2-11); Neutrophils Absolute Auto 8.2 X10*3/uL (2.0-8.3); Neutrophils Percent Auto 85.2 % (45-73); Platelet Count 155 X10*3/uL (160-400); Red Blood Count 3.61 X10*6/uL (4.20-5.50); Red Cell Distribution Width 19.5 % (11.0-16.0); SCAN SMEAR FLAG 1; White Blood Count 9.6 X10*3/uL (4.8-10.8)
[2020-10-08 15:12] LABS: SLIDE REVIEW VERIFIED
[2020-10-08 15:19] VITALS: BP 125/57; PULSE 82; RESP 18; TEMP 36.4; O2SAT 95; BMI 26.3
[2020-10-08] MEDS: Epoetin Alfa 40,000 UNIT/ML VIAL 40000 UNIT SUBCUT (15:34)
[2020-10-08 15:48] LABS: Alanine Aminotransferase 22 U/L (0-31); Albumin Level 3.6 g/dL (3.5-5.0); Alkaline Phosphatase 184 U/L (39-117); Anion Gap 17 (12-20); Aspartate Amino Transferase 21 U/L (5-31); Bilirubin Total 0.8 mg/dL (0.0-1.0); Blood Urea Nitrogen 78 mg/dL (9-16); Calcium 8.4 mg/dL (8.4-10.2); Carbon Dioxide 25 mmol/L (22-29); Chloride 102 mmol/L (96-108); Creatinine Clr Calc Pharmacy 22.8; Estimated Glomerular Filt Rate 18; Glucose Random 134 mg/dL (60-115); Potassium 4.5 mmol/l (3.3-5.1); Sodium 139 mmol/L (135-145); Total Protein 7.2 g/dL (6.5-8.0)
--- NOTE | 2020-10-08 16:04 | MHC.HEMONC ---
HGB 9.6, procrit given. Follow up in 2 week for exam/?procrit.
[2020-10-22 13:59] LABS: Basophils Percent Auto 0.4 % (0-2); Eosinophils Absolute Auto 0.1 X10*3/uL (0.0-0.4); Eosinophils Percent Auto 1.8 % (0-4); Hematocrit 31.3 % (37-47); Hemoglobin 9.4 g/dl (12.0-16.0); Imm Gran Abs Auto 0.01 X10*3/uL (0.00-0.03); Imm Gran Pct Auto 0.1 % (0.0-0.4); Lymphocytes Absolute Auto 0.4 X10*3/uL (1.2-4.9); Lymphocytes Percent Auto 6.3 % (20-40); MANUAL DIFF FLAG SCAN; Mean Corpuscular Hemoglobin 26.8 pg (27.0-33.0); Mean Corpuscular Volume 89.2 fL (80-98); Mean Platelet Volume 11.5 fL (9.4-12.3); Monocytes Absolute Auto 0.6 X10*3/uL (0.1-1.2); Monocytes Percent Auto 8.4 % (2-11); Neutrophils Absolute Auto 5.7 X10*3/uL (2.0-8.3); Platelet Count 139 X10*3/uL (160-400); Red Blood Count 3.51 X10*6/uL (4.20-5.50); Red Cell Distribution Width 19.1 % (11.0-16.0); SCAN SMEAR FLAG 1; White Blood Count 6.8 X10*3/uL (4.8-10.8)
[2020-10-22 14:13] VITALS: BMI 26.4
[2020-10-22 14:14] VITALS: BP 124/59; PULSE 70; TEMP 36.8; O2SAT 96
[2020-10-22 14:41] LABS: SLIDE REVIEW VERIFIED
[2020-10-22 14:48] LABS: Alanine Aminotransferase 20 U/L (0-31); Albumin Level 3.5 g/dL (3.5-5.0); Alkaline Phosphatase 163 U/L (39-117); Anion Gap 16 (12-20); Aspartate Amino Transferase 25 U/L (5-31); Bilirubin Total 0.9 mg/dL (0.0-1.0); Blood Urea Nitrogen 61 mg/dL (9-16); Calcium 8.1 mg/dL (8.4-10.2); Carbon Dioxide 25 mmol/L (22-29); Chloride 103 mmol/L (96-108); Creatinine Clr Calc Pharmacy 21.8; Estimated Glomerular Filt Rate 17; Glucose Random 97 mg/dL (60-115); Iron 31 mcg/dL (30-160); Percent Iron Saturation 13 % (15-50); Potassium 4.9 mmol/l (3.3-5.1); Sodium 139 mmol/L (135-145); Total Iron Binding Capacity 236 mcg/dL (228-428); Total Protein 7.1 g/dL (6.5-8.0); Unsaturated Iron Binding 205 ug/dL
[2020-10-22] MEDS: Epoetin Alfa 40,000 UNIT/ML VIAL 40000 UNIT SUBCUT (15:03)
[2020-10-22 15:09] LABS: Ferritin 408 ng/mL (10-250)
--- NOTE | 2020-10-22 15:09 | PM.HEMONCPN ---
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 2) Amyloidosis. 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 Anemia is related to that with an eGFR of 35. CURRENT THERAPY: 1. Tamoxifen, started on October 10, 2008. 2. Letrozole, started end of May 2012. 3. Procrit, q 2 weeks. PRN. 4. Tocilizumab 4mg/kg, started 2017. 23rd cycle on January 08. Currently on hold. Interval History Interval history: This is a pleasant 70 year-old lady, here for a follow-up visit. She does feel rather fatigued. When questioned, what is wrong? she says, everything. She is worried about the pandemic. She denies fever nor chills. No headache no dizziness. No chest pain or trouble breathing. She had an echocardiogram done on Thursday. It showed an EF of 15-20%. She actually has an appointment with Cardiology tomorrow. No abdominal pain nausea vomiting heartburn indigestion. Bowels are rather constipated. No gross blood in the stools. She has been using Senokot and MiraLax for her constipation. These do appear to be helping. She enjoys a good appetite. Her weight is stable. She denies easy bruising nor systemic bleeding. She has had joint pains including back, hip and knees. Leg pain upon sitting too long. Sometimes she cannot even sleep due to the pain. She has been trying heating pad, patches and cream to get rid of the pain. She does not sleep too well also because she has to get up to go to the bathroom. She is in good spirits. Rest of the review of systems is unremarkable. Review of Systems - Constitutional Reports system reviewed and no additional complaints, except as documented, Reports lack of energy, Denies body ache(s) - Eyes Reports system reviewed and no additional complaints, except as documented, Denies blurry vision - ENT Reports system reviewed and no additional complaints, except as documented - Cardiovascular Reports system reviewed and no additional complaints, except as documented, Denies chest pain at rest - Respiratory Reports no additional respiratory complaints, Denies chest congestion - Gastrointestinal Reports system reviewed and no additional complaints, except as documented, Denies abdominal pain, Denies change in bowel habits - Genitourinary Reports no additional female genitourinary complaints - Musculoskeletal Reports system reviewed and no additional complaints, except as documented, Reports abnormal walking - Integumentary/Breasts Skin/Breast: Reports no additional skin complaints, Denies bleeding lesions - Neurologic Reports system reviewed and no additional complaints, except as documented - Psychiatric Reports system reviewed and no additional complaints, except as documented - Endocrine Reports no additional endocrine complaints - Hematologic/Lymphatic Reports system reviewed and no additional complaints, except as documented - Allergic/Immunologic Reports system reviewed and no additional complaints, except as documented [facility] Medical History: Medical History (Last Reviewed 10/22/20 @ 12:17 by FATMATA Bermudez) Amyloidosis Anxiety and depression Arthritis Bladder hypertonicity Chronic atrial fibrillation Chronic HFrEF (heart failure with reduced ejection fraction) Chronic kidney disease (CKD) stage G4/A1, severely decreased glomerular filtration rate (GFR) between 15-29 mL/min/1.73 square meter and albuminuria creatinine ratio less than 30 mg/g Detached retina Gout Heart disease History of breast cancer HTN (hypertension) Hypercholesterolemia Hypothyroid ICD (implantable cardioverter-defibrillator) in place Ischemic cardiomyopathy Kidney disease Nephrolithiasis Osteoarthritis Overweight (BMI 25.0-29.9) Pulmonary hypertension Tricuspid regurgitation Urinary incontinence Functional capacity: uses cane/walker Family History: Family History (Last Reviewed 10/22/20 @ 12:17 by FATMATA Bermudez) Mother Diabetes Father Past heart attack Diabetes Sister Parkinsons disease Surgical History: Surgical History (Last Updated 10/22/20 @ 14:28 by Anayeli Roger RN) H/O abdominal hysterectomy H/O mitral valve replacement H/O mitral valve replacement with mechanical valve History of bunionectomy History of cataract surgery History of colonoscopy History of left inguinal hernia repair History of sleeve gastrectomy Home Medications and Allergies Home Medications Medication Instructions Recorded Confirmed Type acetaminophen 325 mg capsule 325 mg PO QID PRN 08/06/20 09/25/20 History colchicine 0.6 mg capsule 0.6 mg PO DAILY 08/06/20 09/25/20 History ferrous sulfate 325 mg (65 mg 325 mg PO DAILY 08/06/20 09/25/20 History iron) tablet,delayed release furosemide 40 mg tablet 40 mg PO BID 08/06/20 09/25/20 History hydralazine 10 mg tablet 10 mg PO BID 08/06/20 09/25/20 History levothyroxine 137 mcg tablet 137 mcg PO DAILY 08/06/20 09/25/20 History melatonin 5 mg capsule mg PO 08/06/20 09/25/20 History rosuvastatin 10 mg tablet 10 mg PO DAILY 08/06/20 09/25/20 History vit C 250 mg-E 200 unit-zinc 40 1 tab PO BID 08/06/20 09/25/20 History mg-copper 1 [id number] capsule sertraline 100 mg tablet 150 mg PO DAILY tab 09/06/20 09/25/20 History flu vacc [id number](65yr up)-PF 240 ml IM 09/17/20 09/25/20 History mcg/0.7 mL intramuscular syringe Allergies Allergy/AdvReac Type Severity Reaction Status Date / Time NKDA Allergy Unknown NO KNOWN Uncoded 08/21/20 13:33 DRUG ALLERGIES - JUST PAPER TAPE TAPE,PAPER Allergy Unknown RASH TO Uncoded 08/21/20 13:33 PAPER TAPE Exam Vital signs: Vital Signs Temp 98.3 F 10/22/20 14:14 Pulse 70 10/22/20 14:14 Resp 18 10/08/20 15:19 BP 124/59 L 10/22/20 14:14 Pulse Ox 96 10/22/20 14:14 Intake & Output 10/21/20 10/22/20 10/22/20 18:59 06:59 18:59 Other: Weight 81.4 kg Weight 81.4 kg Body Mass Index 26.4 - Constitutional Present: mild distress - Routine HEENT Exam Head: Present: normal inspection Eye: Present: normal appearance ENT: Present: mucous membranes moist - Routine Neck Exam Present: full ROM - Routine Respiratory Exam Present: CTAB - Routine Cardiovascular Exam Cardiovascular: Present: RRR, S1, S2, S3 - Routine Abdominal Exam Present: soft, nontender - Routine Rectal Exam Patient deferred: digital exam - Routine Extremities Exam Present: nontender - Routine Back/Spine/Pelvis Exam Back/Spine: Present: paraspinal tenderness - Routine Skin Exam Present: intact - Routine Neurological Exam Present: alert, oriented X3 - Detailed Neurological Exam: Coma Scale Eye Opening: Spontaneous (4) - Routine Psychiatric Exam Present: normal affect Data - Labs CBC & Chem 7: 10/22/20 13:45 10/22/20 13:45 Labs: 08/14/20 12:16 CMP [Comprehensive Met. Panel] Routine Complete Blood Count Auto Diff Routine SLIDE REVIEW Routine 08/14/20 13:30 Epoetin Maximino [Procrit] 40,000 unit SUBCUT ONCE ONE 08/29/20 13:24 CMP [Comprehensive Met. Panel] Routine 08/29/20 14:30 Epoetin Maximino [Procrit] 40,000 unit SUBCUT ONCE ONE 09/11/20 10:40 Complete Blood Count Auto Diff Routine Comprehensive Met. Panel Routine SLIDE REVIEW Routine 09/11/20 12:30 Epoetin Maximino [Procrit] 40,000 unit SUBCUT ONCE ONE 09/24/20 14:20 Complete Blood Count Auto Diff Routine Comprehensive Met. Panel Routine Ferritin Routine IRON PROFILE Routine Immunofixation Pnl, Serum Routine [place]/Lambda Lt Ch,Free w rat Routine SLIDE REVIEW Routine 09/24/20 15:15 Epoetin Maximino [Procrit] 40,000 unit SUBCUT ONCE ONE 09/24/20 15:21 Add Laboratory Test Routine 10/08/20 14:39 SLIDE REVIEW Routine 10/08/20 14:39 CMP [Comprehensive Met. Panel] Routine Complete Blood Count Auto Diff Routine 10/08/20 15:15 Epoetin Maximino [Procrit] 40,000 unit SUBCUT ONCE ONE 10/22/20 13:45 SLIDE REVIEW Routine 10/22/20 13:45 Complete Blood Count Auto Diff Routine 10/22/20 15:00 Epoetin Maximino [Procrit] 40,000 unit SUBCUT ONCE ONE Laboratory Last Values WBC 6.8 X10*3/uL (4.8-10.8) 10/22/20 13:45 RBC 3.51 X10*6/uL (4.20-5.50) L 10/22/20 13:45 Hgb 9.4 g/dl (12.0-16.0) L 10/22/20 13:45 Hct 31.3 % (37-47) L 10/22/20 13:45 MCV 89.2 fL (80-98) 10/22/20 13:45 MCH 26.8 pg (27.0-33.0) L 10/22/20 13:45 MCHC 30.0 g/dl (31.0-35.0) L 10/22/20 13:45 RDW 19.1 % (11.0-16.0) H 10/22/20 13:45 Plt Count 139 X10*3/uL (160-400) L 10/22/20 13:45 MPV 11.5 fL (9.4-12.3) 10/22/20 13:45 Immature Gran % (Auto) 0.1 % (0.0-0.4) 10/22/20 13:45 Neut % (Auto) 83.0 % (45-73) H 10/22/20 13:45 Lymph % (Auto) 6.3 % (20-40) L 10/22/20 13:45 [place] % (Auto) 8.4 % (2-11) 10/22/20 13:45 Eos % (Auto) 1.8 % (0-4) 10/22/20 13:45 Baso % (Auto) 0.4 % (0-2) 10/22/20 13:45 Neut # (Auto) 5.1 X10*3/uL (2.0-8.3) 08/14/20 12:16 Lymph # (Auto) 0.4 X10*3/uL (1.2-4.9) L 10/22/20 13:45 [place] # (Auto) 0.6 X10*3/uL (0.1-1.2) 10/22/20 13:45 Eos # (Auto) 0.1 X10*3/uL (0.0-0.4) 10/22/20 13:45 Baso # (Auto) 0.0 X10*3/uL (0.0-0.2) 10/22/20 13:45 Abs Immat Gran (auto) 0.01 X10*3/uL (0.00-0.03) 10/22/20 13:45 Absolute Neuts (auto) 5.7 X10*3/uL (2.0-8.3) 10/22/20 13:45 Absolute Nucleated RBC 0.000 X10*3/uL (0.0-0.012) 10/22/20 13:45 Nucleated RBC % (auto) 0.0 /100WBC (0.0-0.2) 10/22/20 13:45 Smear Tech's Comments VERIFIED 10/22/20 13:45 Sodium 139 mmol/L (135-145) 10/22/20 13:45 Potassium 4.9 mmol/l (3.3-5.1) 10/22/20 13:45 Chloride 103 mmol/L (96-108) 10/22/20 13:45 Carbon Dioxide 25 mmol/L (22-29) 10/22/20 13:45 Anion Gap 16 (-20) 10/22/20 13:45 BUN 61 mg/dL (9-16) H 10/22/20 13:45 Creatinine 2.77 mg/dL (0.5-1.4) H 10/22/20 13:45 Estim Creat Clear Calc 21.8 10/22/20 13:45 Estimated GFR 17 10/22/20 13:45 Random Glucose 97 mg/dL (60-115) 10/22/20 13:45 Calcium 8.1 mg/dL (8.4-10.2) L 10/22/20 13:45 Iron 31 mcg/dL (30-160) 10/22/20 13:45 TIBC 236 mcg/dL (228-428) 10/22/20 13:45 % Saturation 13 % (15-50) L 10/22/20 13:45 Unsat Iron Binding 205 ug/dL 10/22/20 13:45 Ferritin 311 ng/mL (10-250) H 09/24/20 14:20 Total Bilirubin 0.9 mg/dL (0.0-1.0) 10/22/20 13:45 AST 25 U/L (5-31) 10/22/20 13:45 ALT 20 U/L (0-31) 10/22/20 13:45 Alkaline Phosphatase 163 U/L (39-117) H 10/22/20 13:45 Total Protein 7.1 g/dL (6.5-8.0) 10/22/20 13:45 Albumin 3.5 g/dL (3.5-5.0) 10/22/20 13:45 Urine Color YELLOW 09/11/20 11:24 Urine Appearance CLEAR 09/11/20 11:24 Urine pH 6.0 (5.0-8.0) 09/11/20 11:24 Ur Specific [place] 1.020 (1.005-1.025) 09/11/20 11:24 Urine Protein 2+ MG/DL (NEG-TRACE) H 09/11/20 11:24 Urine Glucose (UA) NEG MG/DL (NEG) 09/11/20 11:24 Urine Ketones NEG MG/DL (NEG) 09/11/20 11:24 Urine Blood 1+ (NEG) H 09/11/20 11:24 Urine Nitrite NEG (NEG) 09/11/20 11:24 Ur Leukocyte Esterase NEG (NEG) 09/11/20 11:24 Urine RBC 5-9 /HPF (0) H 09/11/20 11:24 Urine WBC 1-4 /HPF (0-4) 09/11/20 11:24 Ur Squamous Epith Cells 1+ /LPF 09/11/20 11:24 Urine Bacteria NONE /LPF 09/11/20 11:24 IgG Total 1716 mg/dL (600-1540) H 09/24/20 14:20 IgA Total 699 mg/dL (70-320) H 09/24/20 14:20 IgM 188 mg/dL (50-300) 09/24/20 14:20 NADINE Interpretation SEE NOTE 09/24/20 14:20 Free [place] LC, Quant 191.1 mg/L (3.3-19.4) H 09/24/20 14:20 Free Lambda LC, Quant 99.0 mg/L (5.7-26.3) H 09/24/20 14:20 Free [place]/Lambda Ratio 1.93 (0.26-1.65) H 09/24/20 14:20 Progress Note: A/P (1) Amyloidosis Status: Acute Assessment and plan: This is a pleasant 70-year-old lady, here for a follow-up visit. She had a renal biopsy on December 24 which revealed AA type Amyloidosis. I proceeded with a bone marrow exam, for further staging. This came back negative for involvement with amyloid. I proceeded with further valuation and staging. I requested an LDH, SIEP and serum free light chain ratio. LDH is 246. SIEP: IgG 1737 IgA 539 IgM 206 IMFIXS INTERP No abnormal bands are present on immunofixation. B-2 MICROGLOB 10.40 FREE KAPPA, SER 155.0 FREE LAMBDA SER 91.2 FREE K/L RATIO 1.70. HLA-B27 Positive Mar 19. Repeat free light chain ratio from 08/02/2018, revealed: FREE KAPPA, SER 60.9 FREE LAMBDA SER 32.6 FREE K/L RATIO 1.87 My concern was if she has cardiac involvement by amyloid. I checked an echocardiogram. This revealed moderate lady dilated LV, with severe LV systolic dysfunction, with RWMA in LAD territory, c/w ischemic cardiomyopathy. The LA is severely dilated. Prosthetic mitral valve appears to be functioning normally. Mild pulmonary hypertension. No pericardial effusion. Unfortunately she is not able to get an MRI of the heart due to the hardware, that she has. I checked NT proBNP(7622). She was sent to Dr. Kaelyn Deleon, in [place], he is the amyloid guru. He mentioned and that her renal biopsy was sent to [facility], he reviewed the molecular studies. He did confirm the diagnosis. He did feel that her joints are involved in the inflammatory process, that likley triggered AA Amyloid. He checked the serological studies as well. She was started on treatment for the amyloid, Tocilizumab, an IL-6 antibody. She has tolerated it very well. She has had 23 cycles. It did work. She felt better, overall. She has had 19 months of therapy with tocilizumab. I feel she has had a maximum benefit from the drug. I will hold off on further administration Tocilizumab. I would not like to expose her to long-term toxicity. PLAN: Will continue to monitor her SIEP. (2) Chronic kidney disease (CKD) stage G3a/A3, moderately decreased glomerular filtration rate (GFR) between 45-59 mL/min/1.73 square meter and albuminuria creatinine ratio greater than 300 mg/g Status: Acute Assessment and plan: 2) Anemia of Chronic Kidney Disease. Stage IV. She had a renal biopsy. 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 Repeat renal biopsy from mid December 2017, raised concern for AA amyloidosis. Her creatinine level fluctuates, depending upon her hydration status and diuresis. Her kidney function is better, now. Her creatinine from today is 2.3. She follows with Dr. Estrella for CHF. Serum light chain ratio was 1.85 on November 14. SIEP from May 5th revealed: IgG 1107 IgA 560 H IgM 129 IMFIXS INTERP No abnormal bands are present on immunofixation. FREE KAPPA, SER 114.5 FREE LAMBDA SER 90.1 FREE K/L RATIO 1.27 She feels quite fatigued today. Her hemoglobin is 9.6. PLAN: She does need her Procrit, today. Will monitor her labs, and assess need for a transfusion. I will follow-up on her SIEP and light chain ratio. She will return weekly for labs and for possible Procrit therapy. She will return in 3 months for a follow-up visit. Thank you, (3) Right knee pain Status: Acute (4) Chronic kidney disease (CKD) stage G4/A1, severely decreased glomerular filtration rate (GFR) between 15-29 mL/min/1.73 square meter and albuminuria creatinine ratio less than 30 mg/g Status: Acute (5) Breast cancer Status: Acute Assessment and plan: 69 year-old lady, with history of Mucinous Carcinoma of the left Breast, 1.8 cm. ER positive TN negative HER-2/tc negative sentinel node negative, stage pT 1C, N0 (i negative.) She was on Tamoxifen in October 2008 to April of 2012. She was then switched to Letrozole end of May 2012. She has completed 5 years of therapy, in the summer of 2016. She is clinically holding stable in that regard. She had a mammogram in January, which was negative. She has not had her mammogram this year yet. She had a bone density in November, which revealed osteopenia with a T-score of -1.4. - Time Spent With Patient Total time spent is greater than 50% in coordination of care (as documented) at patient's floor/unit and/or counseling patient: 25 - 35 minutes
--- NOTE | 2020-10-22 16:10 | MHC.HEMONC ---
Patient seen for follow-up and injection. Injection given as documented. Follow-ups booked. Provider seen patient. Summary updated by nurse.
[2020-11-05 13:46] VITALS: BMI 26.7
[2020-11-05 13:55] LABS: Basophils Percent Auto 0.4 % (0-2); Eosinophils Absolute Auto 0.1 X10*3/uL (0.0-0.4); Eosinophils Percent Auto 1.6 % (0-4); Hematocrit 29.1 % (37-47); Hemoglobin 8.9 g/dl (12.0-16.0); Imm Gran Abs Auto 0.03 X10*3/uL (0.00-0.03); Imm Gran Pct Auto 0.4 % (0.0-0.4); Lymphocytes Absolute Auto 0.6 X10*3/uL (1.2-4.9); Lymphocytes Percent Auto 8.1 % (20-40); MANUAL DIFF FLAG SCAN; Mean Corpuscular HGB Conc 30.6 g/dl (31.0-35.0); Mean Corpuscular Hemoglobin 27.4 pg (27.0-33.0); Mean Corpuscular Volume 89.5 fL (80-98); Mean Platelet Volume 11.2 fL (9.4-12.3); Monocytes Absolute Auto 0.6 X10*3/uL (0.1-1.2); Neutrophils Absolute Auto 6.2 X10*3/uL (2.0-8.3); Neutrophils Percent Auto 81.5 % (45-73); Platelet Count 139 X10*3/uL (160-400); Red Blood Count 3.25 X10*6/uL (4.20-5.50); Red Cell Distribution Width 18.6 % (11.0-16.0); SCAN SMEAR FLAG 1; White Blood Count 7.5 X10*3/uL (4.8-10.8)
[2020-11-05 14:14] VITALS: BP 108/57; PULSE 64; RESP 18; TEMP 36.3; O2SAT 98; BMI 26.7
[2020-11-05 14:14] LABS: SLIDE REVIEW VERIFIED
[2020-11-05] MEDS: Epoetin Alfa 40,000 UNIT/ML VIAL 40000 UNIT SUBCUT (14:19)
--- NOTE | 2020-11-05 14:24 | MHC.HEMONC ---
Patient here for injection. Injection given as documented. Patient will come back next week.
[2020-11-05 14:30] LABS: Alanine Aminotransferase 26 U/L (0-31); Albumin Level 3.5 g/dL (3.5-5.0); Alkaline Phosphatase 160 U/L (39-117); Anion Gap 15 (12-20); Aspartate Amino Transferase 24 U/L (5-31); Bilirubin Total 0.9 mg/dL (0.0-1.0); Blood Urea Nitrogen 64 mg/dL (9-16); Calcium 8.1 mg/dL (8.4-10.2); Carbon Dioxide 25 mmol/L (22-29); Chloride 98 mmol/L (96-108); Creatinine Clr Calc Pharmacy 25.1; Estimated Glomerular Filt Rate 20; Glucose Random 105 mg/dL (60-115); Potassium 4.7 mmol/l (3.3-5.1); Sodium 133 mmol/L (135-145); Total Protein 6.8 g/dL (6.5-8.0)
[2020-11-12 14:10] VITALS: BP 107/62; PULSE 76; RESP 18; TEMP 36.3; O2SAT 96; BMI 26.6
[2020-11-12 14:40] LABS: Basophils Percent Auto 0.3 % (0-2); Eosinophils Absolute Auto 0.1 X10*3/uL (0.0-0.4); Hematocrit 29.6 % (37-47); Hemoglobin 8.8 g/dl (12.0-16.0); Imm Gran Abs Auto 0.02 X10*3/uL (0.00-0.03); Imm Gran Pct Auto 0.3 % (0.0-0.4); Lymphocytes Absolute Auto 0.5 X10*3/uL (1.2-4.9); Lymphocytes Percent Auto 7.3 % (20-40); MANUAL DIFF FLAG SCAN; Mean Corpuscular HGB Conc 29.7 g/dl (31.0-35.0); Mean Corpuscular Hemoglobin 27.1 pg (27.0-33.0); Mean Corpuscular Volume 91.1 fL (80-98); Mean Platelet Volume 11.2 fL (9.4-12.3); Monocytes Absolute Auto 0.5 X10*3/uL (0.1-1.2); Monocytes Percent Auto 8.3 % (2-11); Neutrophils Absolute Auto 5.3 X10*3/uL (2.0-8.3); Neutrophils Percent Auto 81.8 % (45-73); Platelet Count 161 X10*3/uL (160-400); Red Blood Count 3.25 X10*6/uL (4.20-5.50); Red Cell Distribution Width 19.2 % (11.0-16.0); SCAN SMEAR FLAG 1; White Blood Count 6.4 X10*3/uL (4.8-10.8)
[2020-11-12] MEDS: Epoetin Alfa 40,000 UNIT/ML VIAL 40000 UNIT SUBCUT (14:50)
[2020-11-12 15:10] LABS: SLIDE REVIEW VERIFIED
--- NOTE | 2020-11-12 15:20 | MHC.HEMONC ---
Patient here for injection. Injection given as ordered/documented. Patient given follow-up.
[2020-11-19 14:35] VITALS: BP 109/54; PULSE 69; RESP 18; TEMP 36.9; O2SAT 95; BMI 26.5
[2020-11-19 14:41] LABS: Basophils Percent Auto 0.1 % (0-2); Eosinophils Absolute Auto 0.2 X10*3/uL (0.0-0.4); Hematocrit 31.5 % (37-47); Hemoglobin 9.5 g/dl (12.0-16.0); Imm Gran Abs Auto 0.02 X10*3/uL (0.00-0.03); Imm Gran Pct Auto 0.3 % (0.0-0.4); Lymphocytes Absolute Auto 0.6 X10*3/uL (1.2-4.9); Lymphocytes Percent Auto 7.3 % (20-40); MANUAL DIFF FLAG SCAN; Mean Corpuscular HGB Conc 30.2 g/dl (31.0-35.0); Mean Corpuscular Hemoglobin 27.3 pg (27.0-33.0); Mean Corpuscular Volume 90.5 fL (80-98); Mean Platelet Volume 10.7 fL (9.4-12.3); Monocytes Absolute Auto 0.7 X10*3/uL (0.1-1.2); Monocytes Percent Auto 9.5 % (2-11); Neutrophils Absolute Auto 6.1 X10*3/uL (2.0-8.3); Neutrophils Percent Auto 80.8 % (45-73); Platelet Count 172 X10*3/uL (160-400); Red Blood Count 3.48 X10*6/uL (4.20-5.50); Red Cell Distribution Width 19.4 % (11.0-16.0); SCAN SMEAR FLAG 1; White Blood Count 7.5 X10*3/uL (4.8-10.8)
[2020-11-19] MEDS: Epoetin Alfa 40,000 UNIT/ML VIAL 40000 UNIT SUBCUT (15:02)
[2020-11-19 15:06] LABS: Alanine Aminotransferase 16 U/L (0-31); Albumin Level 3.5 g/dL (3.5-5.0); Alkaline Phosphatase 151 U/L (39-117); Anion Gap 15 (12-20); Aspartate Amino Transferase 18 U/L (5-31); Bilirubin Total 0.7 mg/dL (0.0-1.0); Blood Urea Nitrogen 48 mg/dL (9-16); Carbon Dioxide 27 mmol/L (22-29); Chloride 102 mmol/L (96-108); Creatinine Clr Calc Pharmacy 24.6; Estimated Glomerular Filt Rate 19; Glucose Random 99 mg/dL (60-115); Potassium 4.6 mmol/l (3.3-5.1); Sodium 139 mmol/L (135-145); Total Protein 6.9 g/dL (6.5-8.0)
--- NOTE | 2020-11-19 15:10 | MHC.HEMONC ---
Lydia here for injection. Labs drawn. Injection given as ordered/documented. Follow-up given.
[2020-11-19 15:37] LABS: SLIDE REVIEW VERIFIED
[2020-12-04 13:59] LABS: Basophils Percent Auto 0.4 % (0-2); Eosinophils Absolute Auto 0.1 X10*3/uL (0.0-0.4); Eosinophils Percent Auto 1.7 % (0-4); Hematocrit 30.8 % (37-47); Hemoglobin 9.1 g/dl (12.0-16.0); Imm Gran Abs Auto 0.03 X10*3/uL (0.00-0.03); Imm Gran Pct Auto 0.4 % (0.0-0.4); Lymphocytes Absolute Auto 0.5 X10*3/uL (1.2-4.9); Lymphocytes Percent Auto 7.7 % (20-40); MANUAL DIFF FLAG SCAN; Mean Corpuscular HGB Conc 29.5 g/dl (31.0-35.0); Mean Corpuscular Hemoglobin 26.8 pg (27.0-33.0); Mean Corpuscular Volume 90.6 fL (80-98); Mean Platelet Volume 10.4 fL (9.4-12.3); Monocytes Absolute Auto 0.6 X10*3/uL (0.1-1.2); Neutrophils Absolute Auto 5.7 X10*3/uL (2.0-8.3); Neutrophils Percent Auto 81.8 % (45-73); Platelet Count 156 X10*3/uL (160-400); Red Cell Distribution Width 18.1 % (11.0-16.0); SCAN SMEAR FLAG 1
[2020-12-04 14:22] VITALS: BMI 26.5
[2020-12-04 14:23] VITALS: BP 99/57; PULSE 88; RESP 20; TEMP 37; O2SAT 94
--- NOTE | 2020-12-04 14:25 | MHC.HEMONC ---
Vitamin B-12 injection given. Follow up appointment made.
[2020-12-04 14:28] LABS: SLIDE REVIEW VERIFIED
[2020-12-04] MEDS: Epoetin Alfa 40,000 UNIT/ML VIAL 40000 UNIT SUBCUT (14:48)
[2020-12-04 14:49] LABS: Alanine Aminotransferase 15 U/L (0-31); Albumin Level 3.2 g/dL (3.5-5.0); Alkaline Phosphatase 158 U/L (39-117); Anion Gap 15 (12-20); Aspartate Amino Transferase 18 U/L (5-31); Bilirubin Total 0.6 mg/dL (0.0-1.0); Blood Urea Nitrogen 63 mg/dL (9-16); Calcium 8.6 mg/dL (8.4-10.2); Carbon Dioxide 26 mmol/L (22-29); Chloride 102 mmol/L (96-108); Creatinine Clr Calc Pharmacy 22.4; Estimated Glomerular Filt Rate 20; Glucose Random 107 mg/dL (60-115); Potassium 4.5 mmol/l (3.3-5.1); Sodium 138 mmol/L (135-145); Total Protein 6.7 g/dL (6.5-8.0)
--- NOTE | 2020-12-04 15:05 | MHC.HEMONC ---
VSS. Labs reviewed - HGB 9.1. Procrit a/o.
--- NOTE | 2020-12-18 12:27 | MHC.HEMONC ---
Pt called and states she can not come in today for procrit injection. Dr Sykes notified. Pt rescheduled for next 12/27/20 per her request
[2020-12-20 14:21] VITALS: BP 117/58; PULSE 59; RESP 17; TEMP 36.9; O2SAT 98; BMI 25.9
[2020-12-20 14:23] LABS: Basophils Percent Auto 0.5 % (0-2); Eosinophils Absolute Auto 0.1 X10*3/uL (0.0-0.4); Eosinophils Percent Auto 1.4 % (0-4); Hematocrit 30.2 % (37-47); Hemoglobin 9.1 g/dl (12.0-16.0); Imm Gran Abs Auto 0.02 X10*3/uL (0.00-0.03); Imm Gran Pct Auto 0.3 % (0.0-0.4); Lymphocytes Absolute Auto 0.5 X10*3/uL (1.2-4.9); Lymphocytes Percent Auto 6.9 % (20-40); MANUAL DIFF FLAG SCAN; Mean Corpuscular HGB Conc 30.1 g/dl (31.0-35.0); Mean Corpuscular Hemoglobin 27.1 pg (27.0-33.0); Mean Corpuscular Volume 89.9 fL (80-98); Mean Platelet Volume 12.1 fL (9.4-12.3); Monocytes Absolute Auto 0.5 X10*3/uL (0.1-1.2); Monocytes Percent Auto 7.7 % (2-11); Neutrophils Absolute Auto 5.4 X10*3/uL (2.0-8.3); Neutrophils Percent Auto 83.2 % (45-73); Platelet Count 145 X10*3/uL (160-400); Red Blood Count 3.36 X10*6/uL (4.20-5.50); Red Cell Distribution Width 18.3 % (11.0-16.0); SCAN SMEAR FLAG 1; White Blood Count 6.5 X10*3/uL (4.8-10.8)
[2020-12-20] MEDS: Epoetin Alfa 40,000 UNIT/ML VIAL 40000 UNIT SUBCUT (14:50)
--- NOTE | 2020-12-20 14:58 | MHC.HEMONC ---
Pt here for Procrit injection. Labs drawn. HGB 9.1, Procrit given as ordered. Follow up appointment made.
[2020-12-20 15:08] LABS: SLIDE REVIEW VERIFIED
[2020-12-20 15:09] LABS: Alanine Aminotransferase 16 U/L (0-31); Albumin Level 3.3 g/dL (3.5-5.0); Alkaline Phosphatase 151 U/L (39-117); Anion Gap 15 (12-20); Aspartate Amino Transferase 20 U/L (5-31); Bilirubin Total 0.6 mg/dL (0.0-1.0); Blood Urea Nitrogen 49 mg/dL (9-16); Calcium 8.2 mg/dL (8.4-10.2); Carbon Dioxide 22 mmol/L (22-29); Chloride 106 mmol/L (96-108); Creatinine Clr Calc Pharmacy 23.7; Estimated Glomerular Filt Rate 19; Glucose Random 105 mg/dL (60-115); Potassium 4.2 mmol/L (3.3-5.1); Sodium 139 mmol/L (135-145); Total Protein 6.8 g/dL (6.5-8.0)
[2020-12-27 13:47] VITALS: BP 114/60; PULSE 92; RESP 18; TEMP 36.3; O2SAT 93; BMI 26.0
[2020-12-27 14:02] LABS: Basophils Percent Auto 0.6 % (0-2); Eosinophils Absolute Auto 0.2 X10*3/uL (0.0-0.4); Eosinophils Percent Auto 2.8 % (0-4); Hematocrit 31.6 % (37-47); Hemoglobin 9.4 g/dl (12.0-16.0); Imm Gran Abs Auto 0.01 X10*3/uL (0.00-0.03); Imm Gran Pct Auto 0.2 % (0.0-0.4); Lymphocytes Absolute Auto 0.4 X10*3/uL (1.2-4.9); Lymphocytes Percent Auto 7.8 % (20-40); MANUAL DIFF FLAG SCAN; Mean Corpuscular HGB Conc 29.7 g/dl (31.0-35.0); Mean Corpuscular Hemoglobin 26.9 pg (27.0-33.0); Mean Corpuscular Volume 90.5 fL (80-98); Mean Platelet Volume 11.3 fL (9.4-12.3); Monocytes Absolute Auto 0.6 X10*3/uL (0.1-1.2); Monocytes Percent Auto 11.9 % (2-11); Neutrophils Absolute Auto 4.1 X10*3/uL (2.0-8.3); Neutrophils Percent Auto 76.7 % (45-73); Platelet Count 158 X10*3/uL (160-400); Red Blood Count 3.49 X10*6/uL (4.20-5.50); SCAN SMEAR FLAG 1; White Blood Count 5.4 X10*3/uL (4.8-10.8)
[2020-12-27] MEDS: Epoetin Alfa 40,000 UNIT/ML VIAL 40000 UNIT SUBCUT (14:22)
[2020-12-27 14:26] LABS: SLIDE REVIEW VERIFIED
--- NOTE | 2020-12-27 14:26 | MHC.HEMONC ---
Injection given as ordered/documented. Follow-up given.
[2020-12-27 14:32] LABS: Alanine Aminotransferase 19 U/L (0-31); Albumin Level 3.3 g/dL (3.5-5.0); Alkaline Phosphatase 147 U/L (39-117); Anion Gap 15 (12-20); Aspartate Amino Transferase 19 U/L (5-31); Bilirubin Total 0.7 mg/dL (0.0-1.0); Blood Urea Nitrogen 48 mg/dL (9-16); Calcium 8.4 mg/dL (8.4-10.2); Carbon Dioxide 23 mmol/L (22-29); Chloride 106 mmol/L (96-108); Creatinine Clr Calc Pharmacy 22.9; Estimated Glomerular Filt Rate 18; Glucose Random 88 mg/dL (60-115); Potassium 4.7 mmol/L (3.3-5.1); Sodium 139 mmol/L (135-145); Total Protein 6.6 g/dL (6.5-8.0)
[2021-01-10 14:00] VITALS: BP 110/61; PULSE 87; RESP 18; TEMP 36.2; O2SAT 94; BMI 25.8
[2021-01-10 14:03] LABS: Basophils Percent Auto 0.7 % (0-2); Eosinophils Absolute Auto 0.2 X10*3/uL (0.0-0.4); Eosinophils Percent Auto 2.9 % (0-4); Hematocrit 31.5 % (37-47); Hemoglobin 9.5 g/dl (12.0-16.0); Imm Gran Abs Auto 0.01 X10*3/uL (0.00-0.03); Imm Gran Pct Auto 0.2 % (0.0-0.4); Lymphocytes Absolute Auto 0.6 X10*3/uL (1.2-4.9); Lymphocytes Percent Auto 9.8 % (20-40); MANUAL DIFF FLAG SCAN; Mean Corpuscular HGB Conc 30.2 g/dl (31.0-35.0); Mean Corpuscular Hemoglobin 27.1 pg (27.0-33.0); Mean Corpuscular Volume 89.7 fL (80-98); Mean Platelet Volume 11.3 fL (9.4-12.3); Monocytes Absolute Auto 0.5 X10*3/uL (0.1-1.2); Monocytes Percent Auto 8.5 % (2-11); Neutrophils Absolute Auto 4.8 X10*3/uL (2.0-8.3); Neutrophils Percent Auto 77.9 % (45-73); Platelet Count 133 X10*3/uL (160-400); Red Blood Count 3.51 X10*6/uL (4.20-5.50); Red Cell Distribution Width 18.1 % (11.0-16.0); SCAN SMEAR FLAG 1; White Blood Count 6.2 X10*3/uL (4.8-10.8)
[2021-01-10] MEDS: Epoetin Alfa 40,000 UNIT/ML VIAL 40000 UNIT SUBCUT (14:15)
--- NOTE | 2021-01-10 14:19 | MHC.HEMONC ---
Pt here for injection. Injection given as ordered/documented for results. Follow-up given.
[2021-01-10 14:46] LABS: Alanine Aminotransferase 17 U/L (0-31); Anion Gap 14 (12-20); Aspartate Amino Transferase 20 U/L (5-31); Bilirubin Total 0.6 mg/dL (0.0-1.0); Blood Urea Nitrogen 54 mg/dL (9-16); Calcium 8.4 mg/dL (8.4-10.2); Carbon Dioxide 24 mmol/L (22-29); Chloride 105 mmol/L (96-108); Creatinine Clr Calc Pharmacy 20.1; Estimated Glomerular Filt Rate 17; Glucose Random 83 mg/dL (60-115); Iron 41 mcg/dL (30-160); Percent Iron Saturation 18 % (15-50); Potassium 4.9 mmol/L (3.3-5.1); Sodium 138 mmol/L (135-145); Total Iron Binding Capacity 228 mcg/dL (228-428); Total Protein 6.6 g/dL (6.5-8.0); Unsaturated Iron Binding 187 ug/dL
[2021-01-10 14:47] LABS: Albumin Level 3.3 g/dL (3.5-5.0); Alkaline Phosphatase 148 U/L (39-117)
[2021-01-10 14:59] LABS: SLIDE REVIEW VERIFIED
[2021-01-10 15:08] LABS: Ferritin 267 ng/mL (10-250)
[2021-01-21 14:46] LABS: Basophils Percent Auto 0.5 % (0-2); Eosinophils Absolute Auto 0.1 X10*3/uL (0.0-0.4); Eosinophils Percent Auto 2.1 % (0-4); Hematocrit 32.2 % (37-47); Hemoglobin 9.5 g/dl (12.0-16.0); Imm Gran Abs Auto 0.01 X10*3/uL (0.00-0.03); Imm Gran Pct Auto 0.2 % (0.0-0.4); Lymphocytes Absolute Auto 0.5 X10*3/uL (1.2-4.9); Lymphocytes Percent Auto 7.3 % (20-40); MANUAL DIFF FLAG SCAN; Mean Corpuscular HGB Conc 29.5 g/dl (31.0-35.0); Mean Corpuscular Hemoglobin 26.7 pg (27.0-33.0); Mean Corpuscular Volume 90.4 fL (80-98); Mean Platelet Volume 11.1 fL (9.4-12.3); Monocytes Absolute Auto 0.7 X10*3/uL (0.1-1.2); Monocytes Percent Auto 10.6 % (2-11); Neutrophils Percent Auto 79.3 % (45-73); Platelet Count 137 X10*3/uL (160-400); Red Blood Count 3.56 X10*6/uL (4.20-5.50); Red Cell Distribution Width 18.5 % (11.0-16.0); SCAN SMEAR FLAG 1; White Blood Count 6.3 X10*3/uL (4.8-10.8)
[2021-01-21 14:54] VITALS: BP 109/53; PULSE 66; RESP 18; TEMP 36.3; O2SAT 95; BMI 25.8
--- NOTE | 2021-01-21 15:13 | PM.HEMONCPN ---
Medical Summary - Medical Summary Date of Service: 01/21/21 Chief complaint: F/U for ACD. Amyloidosis. Breast Cancer. 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 2) Amyloidosis. 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 Anemia is related to that with an eGFR of 35. CURRENT THERAPY: 1. Tamoxifen, started on October 10, 2008. 2. Letrozole, started end of May 2012. 3. Procrit, q 2 weeks. PRN. 4. Tocilizumab 4mg/kg, started 2017. 23rd cycle on January 08. Currently on hold. Interval History Interval history: This is a pleasant 70 year-old lady, here for a follow-up visit. She does feel rather fatigued. When questioned, what is wrong? she says, everything. She is worried about the pandemic. She denies fever nor chills. No headache no dizziness. No chest pain or trouble breathing. She had an echocardiogram done on Thursday. It showed an EF of 15-20%. She actually has an appointment with Cardiology tomorrow. No abdominal pain nausea vomiting heartburn indigestion. Bowels are rather constipated. No gross blood in the stools. She has been using Senokot and MiraLax for her constipation. These do appear to be helping. She enjoys a good appetite. Her weight is stable. She denies easy bruising nor systemic bleeding. She has had joint pains including back, hip and knees. Leg pain upon sitting too long. Sometimes she cannot even sleep due to the pain. She has been trying heating pad, patches and cream to get rid of the pain. She does not sleep too well also because she has to get up to go to the bathroom. She is in good spirits. Rest of the review of systems is unremarkable. Review of Systems - Neurologic Reports no additional neurologic complaints, Reports abnormal gait PMFSH Medical History: Medical History (Last Reviewed 01/01/21 @ 14:29 by Lonnie Estrella MD) Amyloidosis Anxiety and depression Arthritis Bladder hypertonicity Chronic atrial fibrillation Chronic HFrEF (heart failure with reduced ejection fraction) Chronic kidney disease (CKD) stage G4/A1, severely decreased glomerular filtration rate (GFR) between 15-29 mL/min/1.73 square meter and albuminuria creatinine ratio less than 30 mg/g Detached retina Ear pain Ear pain, right Gout Heart disease History of breast cancer HTN (hypertension) Hypercholesterolemia Hypothyroid ICD (implantable cardioverter-defibrillator) in place Ischemic cardiomyopathy Kidney disease Nephrolithiasis Osteoarthritis Overweight (BMI 25.0-29.9) Pulmonary hypertension Tricuspid regurgitation Urinary incontinence Functional capacity: uses cane/walker Family History: Family History (Last Reviewed 01/01/21 @ 14:29 by Lonnie Estrella MD) Mother Diabetes Father Past heart attack Diabetes Sister Parkinsons disease Surgical History: Surgical History (Last Reviewed 01/01/21 @ 14:29 by Lonnie Estrella MD) H/O abdominal hysterectomy H/O mitral valve replacement H/O mitral valve replacement with mechanical valve History of bunionectomy History of cataract surgery History of colonoscopy History of left inguinal hernia repair History of sleeve gastrectomy Social History: Social History (Last Reviewed 01/01/21 @ 14:29 by Lonnie Estrella MD) Alcohol History: Alcohol intake: never Tobacco History: Second Hand Smoke Exposure: No Advance Directives: Advance Directives: Yes Advance Directives on File: Advance Directives on File comment: [id number] Nutrition Assessment: Patient : No Occupation Assessmet: Current occupational status: disabled Current occupation: left handed Second hand tobacco smoke exposure: No Oncology Screenings - ECOG Performance Status ECOG Performance Status: 1 Home Medications and Allergies Home Medications Medication Instructions Recorded Confirmed Type acetaminophen 325 mg capsule 325 mg PO QID PRN 08/06/20 01/21/21 History colchicine 0.6 mg capsule 0.6 mg PO DAILY PRN 08/06/20 01/21/21 History vit C 250 mg-vit E 90 mg-zinc 40 1 tab PO BID 08/06/20 01/21/21 History mg-copper 1 [id number] capsule sertraline 100 mg tablet 150 mg PO DAILY tab 09/06/20 01/21/21 History ferrous sulfate 324 mg (65 mg 324 mg PO BID 11/05/20 01/21/21 History iron) tablet,delayed release [id number]-IV 200 mcg-vit K 15 1 tab PO DAILY 12/19/20 01/21/21 History mcg-lycope 150 psk-nezzxw-gdmn tablet warfarin 5 mg tablet 5 mg PO DAILY 12/19/20 01/21/21 History furosemide 40 mg tablet 40 mg PO DAILY tab 01/01/21 01/21/21 History CALCIUM 750 MG VIT D3 See Rx Instructions .ROUTE .COMPLEX 01/21/21 01/21/21 History Allergies Allergy/AdvReac Type Severity Reaction Status Date / Time NKDA Allergy Unknown NO KNOWN Uncoded 01/21/21 15:04 DRUG ALLERGIES - JUST PAPER TAPE TAPE,PAPER Allergy Unknown RASH TO Uncoded 01/21/21 15:04 PAPER TAPE Exam Vital signs: Vital Signs Temp 97.4 F 01/21/21 14:54 Pulse 66 01/21/21 14:54 Resp 18 01/21/21 14:54 BP 109/53 L 01/21/21 14:54 Pulse Ox 95 01/21/21 14:54 Intake & Output 01/20/21 01/21/21 01/21/21 18:59 06:59 18:59 Other: Weight 79.4 kg Weight in Grams 56351 Weight 79.4 kg Body Mass Index 25.8 - Constitutional Present: mild distress - Routine HEENT Exam Head: Present: normal inspection Eye: Present: normal appearance ENT: Present: mucous membranes moist - Routine Neck Exam Present: full ROM - Routine Respiratory Exam Present: CTAB - Routine Cardiovascular Exam Cardiovascular: Present: RRR, S1, S2, S3 - Routine Abdominal Exam Present: soft, nontender - Routine Rectal Exam Patient deferred: digital exam - Routine Extremities Exam Present: nontender - Routine Back/Spine/Pelvis Exam Back/Spine: Present: paraspinal tenderness - Routine Skin Exam Present: intact - Routine Neurological Exam Present: alert, oriented X3 - Detailed Neurological Exam: Coma Scale Eye Opening: Spontaneous (4) - Routine Psychiatric Exam Present: normal affect Data - Labs CBC & Chem 7: 01/21/21 13:30 01/21/21 13:30 Labs: 08/14/20 12:16 CMP [Comprehensive Met. Panel] Routine Complete Blood Count Auto Diff Routine SLIDE REVIEW Routine 08/14/20 13:30 Epoetin Maximino [Procrit] 40,000 unit SUBCUT ONCE ONE 08/29/20 13:24 CMP [Comprehensive Met. Panel] Routine 08/29/20 14:30 Epoetin Maximino [Procrit] 40,000 unit SUBCUT ONCE ONE 09/11/20 10:40 Complete Blood Count Auto Diff Routine Comprehensive Met. Panel Routine SLIDE REVIEW Routine 09/11/20 12:30 Epoetin Maximino [Procrit] 40,000 unit SUBCUT ONCE ONE 09/24/20 14:20 Complete Blood Count Auto Diff Routine Comprehensive Met. Panel Routine Ferritin Routine IRON PROFILE Routine Immunofixation Pnl, Serum Routine [place]/Lambda Lt Ch,Free w rat Routine SLIDE REVIEW Routine 09/24/20 15:15 Epoetin Maximino [Procrit] 40,000 unit SUBCUT ONCE ONE 09/24/20 15:21 Add Laboratory Test Routine 10/08/20 14:39 SLIDE REVIEW Routine 10/08/20 14:39 CMP [Comprehensive Met. Panel] Routine Complete Blood Count Auto Diff Routine 10/08/20 15:15 Epoetin Maximino [Procrit] 40,000 unit SUBCUT ONCE ONE 10/22/20 13:45 SLIDE REVIEW Routine 10/22/20 13:45 Complete Blood Count Auto Diff Routine Comprehensive Met. Panel Routine Ferritin Routine IRON PROFILE Routine 10/22/20 15:00 Epoetin Maximino [Procrit] 40,000 unit SUBCUT ONCE ONE 11/05/20 13:46 SLIDE REVIEW Routine 11/05/20 13:46 CBC W/AUTO DIFF [Complete Blood Count Auto Diff] Routine CMP [Comprehensive Met. Panel] Routine 11/05/20 14:15 Epoetin Maximino [Procrit] 40,000 unit SUBCUT ONCE ONE 11/12/20 14:15 CBC W/AUTO DIFF [Complete Blood Count Auto Diff] Routine SLIDE REVIEW Routine 11/12/20 15:00 Epoetin Maximino [Procrit] 40,000 unit SUBCUT ONCE ONE 11/19/20 14:20 Complete Blood Count Auto Diff Routine Profile w/ Glucose [place] [Comprehensive Met. Panel] Routine SLIDE REVIEW Routine 11/19/20 15:00 Epoetin Maximino [Procrit] 40,000 unit SUBCUT ONCE ONE 12/04/20 13:46 CMP [Comprehensive Met. Panel] Routine Complete Blood Count Auto Diff Routine SLIDE REVIEW Routine 12/04/20 14:15 Epoetin Maximino [Procrit] 40,000 unit SUBCUT ONCE ONE 12/18/20 11:57 Epoetin Maximino [Procrit] 40,000 unit SUBCUT ONCE ONE 12/20/20 14:15 CMP [Comprehensive Met. Panel] Routine Complete Blood Count Auto Diff Routine SLIDE REVIEW Routine 12/20/20 14:45 Epoetin Maximino [Procrit] 40,000 unit SUBCUT ONCE ONE 12/27/20 13:39 SLIDE REVIEW Routine 12/27/20 13:39 CMP [Comprehensive Met. Panel] Routine Complete Blood Count Auto Diff Routine 12/27/20 14:00 Epoetin Maximino [Procrit] 40,000 unit SUBCUT ONCE ONE 01/10/21 13:55 Complete Blood Count Auto Diff Routine Comprehensive Met. Panel Routine Ferritin Routine IRON PROFILE Routine SLIDE REVIEW Routine 01/10/21 14:15 Epoetin Maximino [Procrit] 40,000 unit SUBCUT ONCE ONE Laboratory Last Values WBC 6.3 X10*3/uL (4.8-10.8) 01/21/21 13:30 RBC 3.56 X10*6/uL (4.20-5.50) L 01/21/21 13:30 Hgb 9.5 g/dl (12.0-16.0) L 01/21/21 13:30 Hct 32.2 % (37-47) L 01/21/21 13:30 MCV 90.4 fL (80-98) 01/21/21 13:30 MCH 26.7 pg (27.0-33.0) L 01/21/21 13:30 MCHC 29.5 g/dl (31.0-35.0) L 01/21/21 13:30 RDW 18.5 % (11.0-16.0) H 01/21/21 13:30 Plt Count 137 X10*3/uL (160-400) L 01/21/21 13:30 MPV 11.1 fL (9.4-12.3) 01/21/21 13:30 Immature Gran % (Auto) 0.2 % (0.0-0.4) 01/10/21 13:55 Neut % (Auto) 77.9 % (45-73) H 01/10/21 13:55 Lymph % (Auto) 9.8 % (20-40) L 01/10/21 13:55 [place] % (Auto) 8.5 % (2-11) 01/10/21 13:55 Eos % (Auto) 2.9 % (0-4) 01/10/21 13:55 Baso % (Auto) 0.7 % (0-2) 01/10/21 13:55 Neut # (Auto) 5.1 X10*3/uL (2.0-8.3) 08/14/20 12:16 Lymph # (Auto) 0.6 X10*3/uL (1.2-4.9) L 01/10/21 13:55 [place] # (Auto) 0.5 X10*3/uL (0.1-1.2) 01/10/21 13:55 Eos # (Auto) 0.2 X10*3/uL (0.0-0.4) 01/10/21 13:55 Baso # (Auto) 0.0 X10*3/uL (0.0-0.2) 01/10/21 13:55 Abs Immat Gran (auto) 0.01 X10*3/uL (0.00-0.03) 01/10/21 13:55 Absolute Neuts (auto) 4.8 X10*3/uL (2.0-8.3) 01/10/21 13:55 Absolute Nucleated RBC 0.000 X10*3/uL (0.0-0.012) 01/10/21 13:55 Nucleated RBC % (auto) 0.0 /100WBC (0.0-0.2) 01/10/21 13:55 Smear Tech's Comments VERIFIED 01/10/21 13:55 Sodium 138 mmol/L (135-145) 01/10/21 13:55 Potassium 4.9 mmol/L (3.3-5.1) 01/10/21 13:55 Chloride 105 mmol/L (96-108) 01/10/21 13:55 Carbon Dioxide 24 mmol/L (22-29) 01/10/21 13:55 Anion Gap 14 (12-20) 01/10/21 13:55 BUN 54 mg/dL (9-16) H 01/10/21 13:55 Creatinine 2.75 mg/dL (0.5-1.4) H 01/10/21 13:55 Estim Creat Clear Calc 20.1 01/10/21 13:55 Estimated GFR 17 01/10/21 13:55 Random Glucose 83 mg/dL (60-115) 01/10/21 13:55 Calcium 8.4 mg/dL (8.4-10.2) 01/10/21 13:55 Iron 41 mcg/dL (30-160) 01/10/21 13:55 TIBC 228 mcg/dL (228-428) 01/10/21 13:55 % Saturation 18 % (15-50) 01/10/21 13:55 Unsat Iron Binding 187 ug/dL 01/10/21 13:55 Ferritin 267 ng/mL (10-250) H 01/10/21 13:55 Total Bilirubin 0.6 mg/dL (0.0-1.0) 01/10/21 13:55 AST 20 U/L (5-31) 01/10/21 13:55 ALT 17 U/L (0-31) 01/10/21 13:55 Alkaline Phosphatase 148 U/L (39-117) H 01/10/21 13:55 Total Protein 6.6 g/dL (6.5-8.0) 01/10/21 13:55 Albumin 3.3 g/dL (3.5-5.0) L 01/10/21 13:55 Urine Color YELLOW 09/11/20 11:24 Urine Appearance CLEAR 09/11/20 11:24 Urine pH 6.0 (5.0-8.0) 09/11/20 11:24 Ur Specific [place] 1.020 (1.005-1.025) 09/11/20 11:24 Urine Protein 2+ MG/DL (NEG-TRACE) H 09/11/20 11:24 Urine Glucose (UA) NEG MG/DL (NEG) 09/11/20 11:24 Urine Ketones NEG MG/DL (NEG) 09/11/20 11:24 Urine Blood 1+ (NEG) H 09/11/20 11:24 Urine Nitrite NEG (NEG) 09/11/20 11:24 Ur Leukocyte Esterase NEG (NEG) 09/11/20 11:24 Urine RBC 5-9 /HPF (0) H 09/11/20 11:24 Urine WBC 1-4 /HPF (0-4) 09/11/20 11:24 Ur Squamous Epith Cells 1+ /LPF 09/11/20 11:24 Urine Bacteria NONE /LPF 09/11/20 11:24 IgG Total 1716 mg/dL (600-1540) H 09/24/20 14:20 IgA Total 699 mg/dL (70-320) H 09/24/20 14:20 IgM 188 mg/dL (50-300) 09/24/20 14:20 NADINE Interpretation SEE NOTE 09/24/20 14:20 Free [place] LC, Quant 191.1 mg/L (3.3-19.4) H 09/24/20 14:20 Free Lambda LC, Quant 99.0 mg/L (5.7-26.3) H 09/24/20 14:20 Free [place]/Lambda Ratio 1.93 (0.26-1.65) H 09/24/20 14:20 Progress Note: A/P (1) Amyloidosis Status: Acute Assessment and plan: This is a pleasant 70-year-old lady, here for a follow-up visit. She had a renal biopsy on December 24 which revealed AA type Amyloidosis. I proceeded with a bone marrow exam, for further staging. This came back negative for involvement with amyloid. I proceeded with further valuation and staging. I requested an LDH, SIEP and serum free light chain ratio. LDH is 246. SIEP: IgG 1737 IgA 539 IgM 206 IMFIXS INTERP No abnormal bands are present on immunofixation. B-2 MICROGLOB 10.40 FREE KAPPA, SER 155.0 FREE LAMBDA SER 91.2 FREE K/L RATIO 1.70. HLA-B27 Positive Jan 19. Repeat free light chain ratio from 08/02/2018, revealed: FREE KAPPA, SER 60.9 FREE LAMBDA SER 32.6 FREE K/L RATIO 1.87 My concern was if she has cardiac involvement by amyloid. I checked an echocardiogram. This revealed moderate lady dilated LV, with severe LV systolic dysfunction, with RWMA in LAD territory, c/w ischemic cardiomyopathy. The LA is severely dilated. Prosthetic mitral valve appears to be functioning normally. Mild pulmonary hypertension. No pericardial effusion. Unfortunately she is not able to get an MRI of the heart due to the hardware, that she has. I checked NT proBNP(7622). She was sent to Dr. Kaelyn Deleon, in [place], he is the amyloid guru. He mentioned and that her renal biopsy was sent to [facility], he reviewed the molecular studies. He did confirm the diagnosis. He did feel that her joints are involved in the inflammatory process, that likley triggered AA Amyloid. He checked the serological studies as well. She was started on treatment for the amyloid, Tocilizumab, an IL-6 antibody. She has tolerated it very well. She has had 23 cycles. It did work. She felt better, overall. She has had 19 months of therapy with tocilizumab. I felt she had a maximum benefit from the drug. I will hold off on further administration Tocilizumab. I would not like to expose her to long-term toxicity. PLAN: Will continue to monitor her SIEP. (2) Chronic kidney disease (CKD) stage G3a/A3, moderately decreased glomerular filtration rate (GFR) between 45-59 mL/min/1.73 square meter and albuminuria creatinine ratio greater than 300 mg/g Status: Acute Assessment and plan: 2) Anemia of Chronic Kidney Disease. Stage IV. She had a renal biopsy. 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 Repeat renal biopsy from mid December 2017, raised concern for AA amyloidosis. Her creatinine level fluctuates, depending upon her hydration status and diuresis. Her kidney function is better, now. Her creatinine from today is 2.3. She follows with Dr. Estrella for CHF. Serum light chain ratio was 1.85 on November 14. SIEP from March 13 revealed: IgG 1107 IgA 560 H IgM 129 IMFIXS INTERP No abnormal bands are present on immunofixation. FREE KAPPA, SER 114.5 FREE LAMBDA SER 90.1 FREE K/L RATIO 1.27 She feels quite fatigued today. Her hemoglobin is 9.5. Creatinine: 2.8, ferritin 179. PLAN: She does need her Procrit, today. Will monitor her labs, and assess need for a transfusion. I will follow-up on her SIEP and light chain ratio. She will return Q 2 weekly for labs and for possible Procrit therapy. She will return in 3 months for a follow-up visit. Thank you, (3) Right knee pain Status: Acute (4) Chronic kidney disease (CKD) stage G4/A1, severely decreased glomerular filtration rate (GFR) between 15-29 mL/min/1.73 square meter and albuminuria creatinine ratio less than 30 mg/g Status: Acute (5) Breast cancer Status: Acute Assessment and plan: 70 year-old lady, with history of Mucinous Carcinoma of the left Breast, 1.8 cm. ER positive SC negative HER-2/tc negative sentinel node negative, stage pT 1C, N0 (i negative.) She was on Tamoxifen in October 2008 to April of 2012. She was then switched to Letrozole end of May 2012. She has completed 5 years of therapy, in the summer of 2016. She is clinically holding stable in that regard. She had a mammogram in January, which was negative. She has not had her mammogram this year yet. She had a bone density in November, which revealed osteopenia with a T-score of -1.4. PLAN: She will be scheduled for a mammogram, later in the month. - Time Spent With Patient Total time spent is greater than 50% in coordination of care (as documented) at patient's floor/unit and/or counseling patient: 25 - 35 minutes
[2021-01-21 15:15] LABS: Alanine Aminotransferase 13 U/L (0-31); Albumin Level 3.4 g/dL (3.5-5.0); Alkaline Phosphatase 140 U/L (39-117); Anion Gap 13 (12-20); Aspartate Amino Transferase 18 U/L (5-31); Bilirubin Total 0.8 mg/dL (0.0-1.0); Blood Urea Nitrogen 53 mg/dL (9-16); Calcium 7.9 mg/dL (8.4-10.2); Carbon Dioxide 25 mmol/L (22-29); Chloride 106 mmol/L (96-108); Creatinine Clr Calc Pharmacy 19.8; Estimated Glomerular Filt Rate 17; Glucose Random 89 mg/dL (60-115); Potassium 4.6 mmol/L (3.3-5.1); Sodium 139 mmol/L (135-145); Total Protein 6.7 g/dL (6.5-8.0)
[2021-01-21 15:17] LABS: SLIDE REVIEW VERIFIED
[2021-01-21] MEDS: Epoetin Alfa 40,000 UNIT/ML VIAL 40000 UNIT SUBCUT (15:30)
[2021-01-21 15:35] LABS: Ferritin 179 ng/mL (10-250)
--- NOTE | 2021-01-21 15:43 | MHC.HEMONC ---
Seen by Dr Sykes. Labs reviewed. Procrit given. Pt has no new changes with medical problems.
[2021-01-23 12:56] LABS: IgA 645 mg/dL (70-320); IgG 1329 mg/dL (600-1540); IgM 188 mg/dL (50-300)
[2021-01-23 22:07] LABS: Kappa Light Chain, Free Serum 161.5 mg/L (3.3-19.4); Kappa/Lambda Lt Ch Free Ratio 1.38 (0.26-1.65); Lambda Light Chain, Free Serum 117.2 mg/L (5.7-26.3)
--- NOTE | 2021-02-01 14:02 | HO.HEMONCPA ---
PA not required due to patient having [employer] as primary insurance
[2021-02-05 14:41] LABS: Basophils Percent Auto 0.3 % (0-2); Eosinophils Absolute Auto 0.1 X10*3/uL (0.0-0.4); Eosinophils Percent Auto 1.7 % (0-4); Hematocrit 33.1 % (37-47); Hemoglobin 9.8 g/dl (12.0-16.0); Imm Gran Abs Auto 0.01 X10*3/uL (0.00-0.03); Imm Gran Pct Auto 0.2 % (0.0-0.4); Lymphocytes Absolute Auto 0.5 X10*3/uL (1.2-4.9); Lymphocytes Percent Auto 7.1 % (20-40); MANUAL DIFF FLAG SCAN; Mean Corpuscular HGB Conc 29.6 g/dl (31.0-35.0); Mean Corpuscular Hemoglobin 26.7 pg (27.0-33.0); Mean Corpuscular Volume 90.2 fL (80-98); Mean Platelet Volume 10.7 fL (9.4-12.3); Monocytes Absolute Auto 0.5 X10*3/uL (0.1-1.2); Monocytes Percent Auto 7.3 % (2-11); Neutrophils Absolute Auto 5.3 X10*3/uL (2.0-8.3); Neutrophils Percent Auto 83.4 % (45-73); Platelet Count 131 X10*3/uL (160-400); Red Blood Count 3.67 X10*6/uL (4.20-5.50); Red Cell Distribution Width 18.6 % (11.0-16.0); SCAN SMEAR FLAG 1; White Blood Count 6.3 X10*3/uL (4.8-10.8)
[2021-02-05 14:52] VITALS: BP 114/59; PULSE 75; TEMP 36.7; O2SAT 96
[2021-02-05 14:54] VITALS: BMI 25.6
[2021-02-05 15:08] LABS: B Type Natriuretic Peptide 669 pg/mL (<100)
[2021-02-05 15:24] LABS: SLIDE REVIEW VERIFIED
[2021-02-05 15:40] LABS: Anion Gap 16 (12-20); Blood Urea Nitrogen 46 mg/dL (9-16); Calcium 8.3 mg/dL (8.4-10.2); Carbon Dioxide 20 mmol/L (22-29); Chloride 107 mmol/L (96-108); Creatinine Clr Calc Pharmacy 22.3; Estimated Glomerular Filt Rate 19; Glucose Random 107 mg/dL (60-115); Potassium 4.9 mmol/L (3.3-5.1); Sodium 138 mmol/L (135-145)
[2021-02-05] MEDS: Epoetin Alfa 40,000 UNIT/ML VIAL 40000 UNIT SUBCUT (15:44)
--- NOTE | 2021-02-05 15:55 | MHC.HEMONC ---
Procrit injection given as ordered. HGB 9.8. Will return in 2 weeks for next injection.
[2021-02-19 14:52] VITALS: BMI 24.3
[2021-02-19 14:53] VITALS: BP 110/54; PULSE 84; RESP 18; TEMP 37; O2SAT 95
[2021-02-19] MEDS: Epoetin Alfa 40,000 UNIT/ML VIAL 40000 UNIT SUBCUT (15:14)
--- NOTE | 2021-02-19 15:26 | MHC.HEMONC ---
Pt here for Procrit injection. Hemaglobin 10.3. Clinical summary updated by nurse. Procrit given SC in right deltoid. Tolerated well. Follow up appointment made. Discharge packet given.
[2021-03-04 14:20] VITALS: BP 114/57; PULSE 60; RESP 18; TEMP 36.6; O2SAT 98; BMI 24.4
[2021-03-04 14:36] LABS: Basophils Percent Auto 0.3 % (0-2); Eosinophils Absolute Auto 0.1 X10*3/uL (0.0-0.4); Eosinophils Percent Auto 1.1 % (0-4); Hematocrit 34.7 % (37-47); Hemoglobin 10.4 g/dl (12.0-16.0); Imm Gran Abs Auto 0.02 X10*3/uL (0.00-0.03); Imm Gran Pct Auto 0.3 % (0.0-0.4); Lymphocytes Absolute Auto 0.5 X10*3/uL (1.2-4.9); Lymphocytes Percent Auto 7.7 % (20-40); MANUAL DIFF FLAG SCAN; Mean Corpuscular Hemoglobin 26.9 pg (27.0-33.0); Mean Corpuscular Volume 89.7 fL (80-98); Mean Platelet Volume 11.9 fL (9.4-12.3); Monocytes Absolute Auto 0.5 X10*3/uL (0.1-1.2); Monocytes Percent Auto 7.4 % (2-11); Neutrophils Absolute Auto 5.3 X10*3/uL (2.0-8.3); Neutrophils Percent Auto 83.2 % (45-73); Platelet Count 129 X10*3/uL (160-400); Red Blood Count 3.87 X10*6/uL (4.20-5.50); Red Cell Distribution Width 18.7 % (11.0-16.0); SCAN SMEAR FLAG 1; White Blood Count 6.3 X10*3/uL (4.8-10.8)
[2021-03-04] MEDS: Epoetin Alfa 40,000 UNIT/ML VIAL 40000 UNIT SUBCUT (14:55)
[2021-03-04 15:01] LABS: Alanine Aminotransferase 21 U/L (0-31); Albumin Level 3.4 g/dL (3.5-5.0); Alkaline Phosphatase 132 U/L (39-117); Anion Gap 15 (12-20); Aspartate Amino Transferase 21 U/L (5-31); Bilirubin Total 0.8 mg/dL (0.0-1.0); Blood Urea Nitrogen 61 mg/dL (9-16); Calcium 8.7 mg/dL (8.4-10.2); Carbon Dioxide 22 mmol/L (22-29); Chloride 105 mmol/L (96-108); Creatinine Clr Calc Pharmacy 19.1; Estimated Glomerular Filt Rate 16; Glucose Random 114 mg/dL (60-115); Potassium 4.5 mmol/L (3.3-5.1); SLIDE REVIEW VERIFIED; Sodium 137 mmol/L (135-145); Total Protein 6.6 g/dL (6.5-8.0)
[2021-03-04 15:21] LABS: Ferritin 262 ng/mL (10-250)
--- NOTE | 2021-03-04 16:27 | MHC.HEMONC ---
HGB 10.4- patient states she feels tired. Dr. Sykes aware, Procrit administered as ordered. VSS. Patient to return in 2 weeks for labs and procrit.
[2021-03-18 14:06] VITALS: BP 120/61; PULSE 90; RESP 18; TEMP 36.4; O2SAT 97; BMI 23.1
--- NOTE | 2021-03-18 14:42 | MHC.HEMONC ---
no procrit needed hgb 10.8
[2021-04-02 14:10] VITALS: BP 112/70; PULSE 87; RESP 18; TEMP 36.6; O2SAT 98
[2021-04-02] MEDS: Epoetin Alfa 40,000 UNIT/ML VIAL 40000 UNIT SUBCUT (14:11)
--- NOTE | 2021-04-02 14:37 | MHC.HEMONC ---
pt here following discharge from hospital yesterday with renal issues. HGB 9.9 yesterday. She was ordered and given Procrit here and will return in 2 weeks.
[2021-04-15 13:16] VITALS: BP 118/56; PULSE 76; RESP 18; TEMP 37.1; O2SAT 96; BMI 23.0
[2021-04-15] MEDS: Epoetin Alfa 40,000 UNIT/ML VIAL 40000 UNIT SUBCUT (14:24)
--- NOTE | 2021-04-15 14:28 | MHC.HEMONC ---
Procit administered to right upper arm. VSS, hgb 9.7, Patient to return in 2 weeks for labs and injection.
[2021-05-02 13:36] LABS: MANUAL DIFF FLAG NO
[2021-05-02 13:38] VITALS: BP 114/57; PULSE 78; RESP 18; TEMP 36.3; O2SAT 96; BMI 22.7
[2021-05-02 13:40] LABS: Basophils Percent Auto 0.4 % (0-2); Eosinophils Absolute Auto 0.1 X10*3/uL (0.0-0.4); Eosinophils Percent Auto 1.4 % (0-4); Hematocrit 33.9 % (37-47); Hemoglobin 10.4 g/dl (12.0-16.0); Imm Gran Abs Auto 0.02 X10*3/uL (0.00-0.03); Imm Gran Pct Auto 0.3 % (0.0-0.4); Lymphocytes Absolute Auto 0.5 X10*3/uL (1.2-4.9); Lymphocytes Percent Auto 7.4 % (20-40); Mean Corpuscular HGB Conc 30.7 g/dl (31.0-35.0); Mean Corpuscular Hemoglobin 28.2 pg (27.0-33.0); Mean Corpuscular Volume 91.9 fL (80-98); Mean Platelet Volume 11.8 fL (9.4-12.3); Monocytes Absolute Auto 0.6 X10*3/uL (0.1-1.2); Monocytes Percent Auto 8.5 % (2-11); Platelet Count 142 X10*3/uL (160-400); Red Blood Count 3.69 X10*6/uL (4.20-5.50); Red Cell Distribution Width 19.1 % (11.0-16.0); White Blood Count 7.3 X10*3/uL (4.8-10.8)
[2021-05-02] MEDS: Epoetin Alfa 40,000 UNIT/ML VIAL 40000 UNIT SUBCUT (14:11)
[2021-05-02 14:13] LABS: Alanine Aminotransferase 18 U/L (0-31); Albumin Level 3.3 g/dL (3.5-5.0); Alkaline Phosphatase 126 U/L (39-117); Anion Gap 13 (12-20); Aspartate Amino Transferase 20 U/L (5-31); Bilirubin Total 0.7 mg/dL (0.0-1.0); Blood Urea Nitrogen 43 mg/dL (9-16); Calcium 8.6 mg/dL (8.4-10.2); Carbon Dioxide 23 mmol/L (22-29); Chloride 109 mmol/L (96-108); Creatinine Clr Calc Pharmacy 26.5; Estimated Glomerular Filt Rate 23; Glucose Random 80 mg/dL (60-115); Potassium 5.1 mmol/L (3.3-5.1); Sodium 140 mmol/L (135-145); Total Protein 6.4 g/dL (6.5-8.0)
[2021-05-02 14:33] LABS: Ferritin 417 ng/mL (10-250)
--- NOTE | 2021-05-02 14:52 | P.PNHO_ITS ---
Medical Summary - Medical Summary Date of Service: 05/02/21 Chief complaint: Follow-up for: 1. Amyloidosis. 2. ACD. 3. Breast cancer. 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 2) Amyloidosis. 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 Anemia is related to that with an eGFR of 35. CURRENT THERAPY: 1. Tamoxifen, started on October 10, 2008. 2. Letrozole, started end of May 2012. 3. Procrit, q 2 weeks. PRN. 4. Tocilizumab 4mg/kg, started 2017. 23rd cycle on January 09, 2020. Currently on hold. Interval History Interval history: This is a pleasant 70 year-old lady, here for a follow-up visit. She was seen in the emergency room, 04/29: HPI: History of afib on coumadin, PPM/ICD, CHF, HTN, HLD, anxiety/depression, pulm HTN, triscuspic regurgitation, CKD, hypothyroidism, amyloidosis, history of mitral valve replacement, ischemic cardiomyopathy, congestive heart failure, history of breast cancer, here with complaints of dizziness with position changes (described as lightheaded) with associated nausea noted this morning with waking. No MOTLEY, chest pain, sob, vision changes. Concern is that the symptoms are secondary to ALIZA. Plan: Will check labs, EKG, chest x-ray, orthostatic vital signs, urine, CT head 1030-x-rays consistent with congestive heart failure. No pedal edema or shortness of breath or cough. No hypoxia or hypertension. Patient has been compliant with 20 mg of Lasix daily with no reports of weight gain. Add on BNP. Will follow 1125-initial troponin elevated. Chronically elevated secondary to chronic kidney disease. Will plan for repeat 3 hour troponin. No chest pain or EKG change 1150-imaging unremarkable. Renal function at baseline. Patient tells me dizziness and nausea improved after receiving a dose of meclizine and zofran. Tolerated apple juice. Pending repeat troponin. 1330-repeat troponin delta. Patient tolerated a sandwich, crackers and additional apple juice with no reports of nausea or vomiting. She mentioned her dizziness is resolved. She ambulated with a steady gait with her walker with a pulse oximeter of greater than 96% and no shortness of breath of chest pain. We discussed that her BNP is mildly elevated but she has no clinical s/s of CHF. Plan: She will continue her lasix at home, follow a low sodium diet. Has a scheduled appt with Dr Estrella on Thursday. In the meantime she will return for any sob, chest pain, cough, leg swelling. She tells me her energy level is low. No headache no dizziness. She denies fever nor chills. No chest pain or trouble breathing. She had an echocardiogram in January. It showed an EF of 15-20%. She actually has an appointment with Dr. Estrella from Cardiology tomorrow. No abdominal pain nausea vomiting heartburn indigestion. Bowels are rather constipated. No gross blood in the stools. She has been using Senokot and MiraLax for her constipation. These do appear to be helping. Her appetite has declined. Her weight is down. She denies easy bruising nor systemic bleeding. She has had joint pains including mid chest, low back, hip and knees. Leg pain upon sitting too long. Sometimes she has a hard time sleeping on account of the pain. Also, she does not sleep too well, because she has to get up to go to the bathroom. She is in good spirits. Rest of the review of systems is unremarkable. Review of Systems - Constitutional Reports no additional constitutional complaints, Reports lack of energy, Reports malaise, Reports poor appetite, Reports weight loss - Eyes Reports no additional eye complaints, Denies blurry vision - ENT Reports no additional ear, nose, mouth, and throat complaints, Reports hearing normal - Cardiovascular Reports no additional cardiovascular complaints, Denies chest pain, Denies short ness of breath - Respiratory Reports no additional respiratory complaints, Denies cough - Gastrointestinal Reports no additional gastrointestinal complaints, Denies abdominal pain, Denies bloating, Denies diarrhea - Genitourinary Reports no additional female genitourinary complaints - Musculoskeletal Reports no additional musculoskeletal complaints, Reports joint pain - Integumentary/Breasts Skin/Breast: Reports no additional skin complaints - Neurologic Reports no additional neurologic complaints, Reports abnormal gait - Psychiatric Reports no additional psychiatric complaints - Endocrine Reports no additional endocrine complaints - Hematologic/Lymphatic Reports no additional hematologic/lymphatic complaints - Allergic/Immunologic Reports no additional allergic/immunologic complaints PMFSH Medical History: Medical History (Last Reviewed 04/29/21 @ 10:14 by Raquel Grimes NP) Amyloidosis Anxiety and depression Arthritis Bladder hypertonicity Chronic atrial fibrillation Chronic HFrEF (heart failure with reduced ejection fraction) Chronic kidney disease (CKD) stage G4/A1, severely decreased glomerular filtration rate (GFR) between 15-29 mL/min/1.73 square meter and albuminuria creatinine ratio less than 30 mg/g Detached retina Gout Heart disease History of breast cancer History of breast cancer HTN (hypertension) Hypercholesterolemia Hypothyroid ICD (implantable cardioverter-defibrillator) in place Ischemic cardiomyopathy Kidney disease Nephrolithiasis Osteoarthritis Overweight (BMI 25.0-29.9) Pulmonary hypertension Thumb tendonitis Tricuspid regurgitation Urinary incontinence Functional capacity: uses cane/walker Patient : No Family History: Family History (Last Reviewed 04/29/21 @ 10:14 by Raquel Grimes NP) Mother Diabetes Father Past heart attack Diabetes Sister Parkinsons disease Surgical History: Surgical History (Last Reviewed 04/29/21 @ 10:14 by Raquel Grimes NP) H/O abdominal hysterectomy H/O mitral valve replacement H/O mitral valve replacement with mechanical valve History of bunionectomy History of cataract surgery History of colonoscopy History of left inguinal hernia repair History of sleeve gastrectomy Social History: Social History (Last Reviewed 04/29/21 @ 10:14 by Raquel Grimes NP) Living Situation History: Household Members: None Housing: Apartment Do you presently have visiting nurse or other home services: No Alcohol History: Alcohol intake: never Tobacco History: Second Hand Smoke Exposure: No Occupation Assessmet: service: No Current occupational status: disabled Current occupation: left handed Oncology Screenings - ECOG Performance Status ECOG Performance Status: 2 Home Medications and Allergies Home Medications Medication Instructions Recorded Confirmed Type acetaminophen 325 mg capsule 325 mg PO QID PRN 08/06/20 05/02/21 History vit C 250 mg-vit E 90 mg-zinc 40 1 tab PO BID 08/06/20 05/02/21 History mg-copper 1 [id number] capsule ferrous sulfate 324 mg (65 mg 324 mg PO BID 11/05/20 05/02/21 History iron) tablet,delayed release CALCIUM 750 MG VIT D3 750 mg PO DAILY 01/21/21 05/02/21 History sennosides 8.6 mg tablet 17.2 mg PO BEDTIME PRN 02/05/21 05/02/21 History furosemide 40 mg tablet 20 mg PO DAILY tab 04/03/21 05/02/21 History melatonin 3 mg tablet 3 mg PO BEDTIME PRN 04/11/21 05/02/21 History Allergies Allergy/AdvReac Type Severity Reaction Status Date / Time TAPE,PAPER Allergy Unknown RASH TO Uncoded 04/08/21 18:46 PAPER TAPE Exam Vital signs: Vital Signs Temp 97.4 F 05/02/21 13:38 Pulse 78 05/02/21 13:38 Resp 18 05/02/21 13:38 BP 114/57 L 05/02/21 13:38 Pulse Ox 96 05/02/21 13:38 Intake & Output 05/01/21 05/02/21 05/02/21 18:59 06:59 18:59 Other: Weight 69.8 kg [place] Weight in Grams 47785 Weight 69.8 kg Body Mass Index 22.7 - Constitutional Present: mild distress - Routine HEENT Exam Head: Present: normal inspection Eye: Present: normal appearance ENT: Present: mucous membranes moist - Routine Neck Exam Present: full ROM - Routine Respiratory Exam Present: CTAB - Routine Cardiovascular Exam Cardiovascular: Present: RRR, S1, S2, S3 - Routine Abdominal Exam Present: soft, nontender - Routine Rectal Exam Patient deferred: digital exam - Routine Extremities Exam Present: nontender - Routine Back/Spine/Pelvis Exam Back/Spine: Present: paraspinal tenderness - Routine Skin Exam Present: intact - Routine Neurological Exam Present: alert, oriented X3 - Detailed Neurological Exam: Coma Scale Eye Opening: Spontaneous (4) - Routine Psychiatric Exam Present: normal affect Data - Labs CBC & Chem 7: 05/02/21 13:34 05/02/21 13:34 Labs: 08/14/20 12:16 CMP [Comprehensive Met. Panel] Routine Complete Blood Count Auto Diff Routine SLIDE REVIEW Routine 08/14/20 13:30 Epoetin Maximino [Procrit] 40,000 unit SUBCUT ONCE ONE 08/29/20 13:24 CMP [Comprehensive Met. Panel] Routine 08/29/20 14:30 Epoetin Maximino [Procrit] 40,000 unit SUBCUT ONCE ONE 09/11/20 10:40 Complete Blood Count Auto Diff Routine Comprehensive Met. Panel Routine SLIDE REVIEW Routine 09/11/20 12:30 Epoetin Maximino [Procrit] 40,000 unit SUBCUT ONCE ONE 09/24/20 14:20 Complete Blood Count Auto Diff Routine Comprehensive Met. Panel Routine Ferritin Routine IRON PROFILE Routine Immunofixation Pnl, Serum Routine [place]/Lambda Lt Ch,Free w rat Routine SLIDE REVIEW Routine 09/24/20 15:15 Epoetin Maximino [Procrit] 40,000 unit SUBCUT ONCE ONE 09/24/20 15:21 Add Laboratory Test Routine 10/08/20 14:39 SLIDE REVIEW Routine 10/08/20 14:39 CMP [Comprehensive Met. Panel] Routine Complete Blood Count Auto Diff Routine 10/08/20 15:15 Epoetin Maximino [Procrit] 40,000 unit SUBCUT ONCE ONE 10/22/20 13:45 SLIDE REVIEW Routine 10/22/20 13:45 Complete Blood Count Auto Diff Routine Comprehensive Met. Panel Routine Ferritin Routine IRON PROFILE Routine 10/22/20 15:00 Epoetin Maximino [Procrit] 40,000 unit SUBCUT ONCE ONE 11/05/20 13:46 SLIDE REVIEW Routine 11/05/20 13:46 CBC W/AUTO DIFF [Complete Blood Count Auto Diff] Routine CMP [Comprehensive Met. Panel] Routine 11/05/20 14:15 Epoetin Maximino [Procrit] 40,000 unit SUBCUT ONCE ONE 11/12/20 14:15 CBC W/AUTO DIFF [Complete Blood Count Auto Diff] Routine SLIDE REVIEW Routine 11/12/20 15:00 Epoetin Maximino [Procrit] 40,000 unit SUBCUT ONCE ONE 11/19/20 14:20 Complete Blood Count Auto Diff Routine Profile w/ Glucose [place] [Comprehensive Met. Panel] Routine SLIDE REVIEW Routine 11/19/20 15:00 Epoetin Maximino [Procrit] 40,000 unit SUBCUT ONCE ONE 12/04/20 13:46 CMP [Comprehensive Met. Panel] Routine Complete Blood Count Auto Diff Routine SLIDE REVIEW Routine 12/04/20 14:15 Epoetin Maximino [Procrit] 40,000 unit SUBCUT ONCE ONE 12/18/20 11:57 Epoetin Maximino [Procrit] 40,000 unit SUBCUT ONCE ONE 12/20/20 14:15 CMP [Comprehensive Met. Panel] Routine Complete Blood Count Auto Diff Routine SLIDE REVIEW Routine 12/20/20 14:45 Epoetin Maximino [Procrit] 40,000 unit SUBCUT ONCE ONE 12/27/20 13:39 SLIDE REVIEW Routine 12/27/20 13:39 CMP [Comprehensive Met. Panel] Routine Complete Blood Count Auto Diff Routine 12/27/20 14:00 Epoetin Maximino [Procrit] 40,000 unit SUBCUT ONCE ONE 01/10/21 13:55 Complete Blood Count Auto Diff Routine Comprehensive Met. Panel Routine Ferritin Routine IRON PROFILE Routine SLIDE REVIEW Routine 01/10/21 14:15 Epoetin Maximino [Procrit] 40,000 unit SUBCUT ONCE ONE Laboratory Last Values WBC 6.3 X10*3/uL (4.8-10.8) 01/21/21 13:30 RBC 3.56 X10*6/uL (4.20-5.50) L 01/21/21 13:30 Hgb 9.5 g/dl (12.0-16.0) L 01/21/21 13:30 Hct 32.2 % (37-47) L 01/21/21 13:30 MCV 90.4 fL (80-98) 01/21/21 13:30 MCH 26.7 pg (27.0-33.0) L 01/21/21 13:30 MCHC 29.5 g/dl (31.0-35.0) L 01/21/21 13:30 RDW 18.5 % (11.0-16.0) H 01/21/21 13:30 Plt Count 137 X10*3/uL (160-400) L 01/21/21 13:30 MPV 11.1 fL (9.4-12.3) 01/21/21 13:30 Immature Gran % (Auto) 0.2 % (0.0-0.4) 01/10/21 13:55 Neut % (Auto) 77.9 % (45-73) H 01/10/21 13:55 Lymph % (Auto) 9.8 % (20-40) L 01/10/21 13:55 [place] % (Auto) 8.5 % (2-11) 01/10/21 13:55 Eos % (Auto) 2.9 % (0-4) 01/10/21 13:55 Baso % (Auto) 0.7 % (0-2) 01/10/21 13:55 Neut # (Auto) 5.1 X10*3/uL (2.0-8.3) 08/14/20 12:16 Lymph # (Auto) 0.6 X10*3/uL (1.2-4.9) L 01/10/21 13:55 [place] # (Auto) 0.5 X10*3/uL (0.1-1.2) 01/10/21 13:55 Eos # (Auto) 0.2 X10*3/uL (0.0-0.4) 01/10/21 13:55 Baso # (Auto) 0.0 X10*3/uL (0.0-0.2) 01/10/21 13:55 Abs Immat Gran (auto) 0.01 X10*3/uL (0.00-0.03) 01/10/21 13:55 Absolute Neuts (auto) 4.8 X10*3/uL (2.0-8.3) 01/10/21 13:55 Absolute Nucleated RBC 0.000 X10*3/uL (0.0-0.012) 01/10/21 13:55 Nucleated RBC % (auto) 0.0 /100WBC (0.0-0.2) 01/10/21 13:55 Smear Tech's Comments VERIFIED 01/10/21 13:55 Sodium 138 mmol/L (135-145) 01/10/21 13:55 Potassium 4.9 mmol/L (3.3-5.1) 01/10/21 13:55 Chloride 105 mmol/L (96-108) 01/10/21 13:55 Carbon Dioxide 24 mmol/L (22-29) 01/10/21 13:55 Anion Gap 14 (12-20) 01/10/21 13:55 BUN 54 mg/dL (9-16) H 01/10/21 13:55 Creatinine 2.75 mg/dL (0.5-1.4) H 01/10/21 13:55 Estim Creat Clear Calc 20.1 01/10/21 13:55 Estimated GFR 17 01/10/21 13:55 Random Glucose 83 mg/dL (60-115) 01/10/21 13:55 Calcium 8.4 mg/dL (8.4-10.2) 01/10/21 13:55 Iron 41 mcg/dL (30-160) 01/10/21 13:55 TIBC 228 mcg/dL (228-428) 01/10/21 13:55 % Saturation 18 % (15-50) 01/10/21 13:55 Unsat Iron Binding 187 ug/dL 01/10/21 13:55 Ferritin 267 ng/mL (10-250) H 01/10/21 13:55 Total Bilirubin 0.6 mg/dL (0.0-1.0) 01/10/21 13:55 AST 20 U/L (5-31) 01/10/21 13:55 ALT 17 U/L (0-31) 01/10/21 13:55 Alkaline Phosphatase 148 U/L (39-117) H 01/10/21 13:55 Total Protein 6.6 g/dL (6.5-8.0) 01/10/21 13:55 Albumin 3.3 g/dL (3.5-5.0) L 01/10/21 13:55 Urine Color YELLOW 09/11/20 11:24 Urine Appearance CLEAR 09/11/20 11:24 Urine pH 6.0 (5.0-8.0) 09/11/20 11:24 Ur Specific [place] 1.020 (1.005-1.025) 09/11/20 11:24 Urine Protein 2+ MG/DL (NEG-TRACE) H 09/11/20 11:24 Urine Glucose (UA) NEG MG/DL (NEG) 09/11/20 11:24 Urine Ketones NEG MG/DL (NEG) 09/11/20 11:24 Urine Blood 1+ (NEG) H 09/11/20 11:24 Urine Nitrite NEG (NEG) 09/11/20 11:24 Ur Leukocyte Esterase NEG (NEG) 09/11/20 11:24 Urine RBC 5-9 /HPF (0) H 09/11/20 11:24 Urine WBC 1-4 /HPF (0-4) 09/11/20 11:24 Ur Squamous Epith Cells 1+ /LPF 09/11/20 11:24 Urine Bacteria NONE /LPF 09/11/20 11:24 IgG Total 1716 mg/dL (600-1540) H 11/16/20 14:20 IgA Total 699 mg/dL (70-320) H 09/24/20 14:20 IgM 188 mg/dL (50-300) 09/24/20 14:20 NADINE Interpretation SEE NOTE 09/24/20 14:20 Free [place] LC, Quant 191.1 mg/L (3.3-19.4) H 09/24/20 14:20 Free Lambda LC, Quant 99.0 mg/L (5.7-26.3) H 09/24/20 14:20 Free [place]/Lambda Ratio 1.93 (0.26-1.65) H 09/24/20 14:20 Progress Note: A/P (1) Amyloidosis Status: Acute Assessment and plan: This is a pleasant 70-year-old lady, here for a follow-up visit. She had a renal biopsy on December 24 which revealed AA type Amyloidosis. I proceeded with a bone marrow exam, for further staging. This came back negative for involvement with amyloid. I proceeded with further valuation and staging. I requested an LDH, SIEP and serum free light chain ratio. LDH is 246. SIEP: IgG 1737 IgA 539 IgM 206 IMFIXS INTERP No abnormal bands are present on immunofixation. B-2 MICROGLOB 10.40 FREE KAPPA, SER 155.0 FREE LAMBDA SER 91.2 FREE K/L RATIO 1.70. HLA-B27 Positive Jan 25. Repeat free light chain ratio from 08/02/2018, revealed: FREE KAPPA, SER 60.9 FREE LAMBDA SER 32.6 FREE K/L RATIO 1.87 My concern was if she has cardiac involvement by amyloid. I checked an echocardiogram. This revealed moderate lady dilated LV, with severe LV systolic dysfunction, with RWMA in LAD territory, c/w ischemic cardiomyopathy. The LA is severely dilated. Prosthetic mitral valve appears to be functioning normally. Mild pulmonary hypertension. No pericardial effusion. Unfortunately she is not able to get an MRI of the heart due to the hardware, that she has. I checked NT proBNP(7622). She was sent to Dr. Kaelyn Deleon, in [place], he is the amyloid guru. He mentioned and that her renal biopsy was sent to [facility], he reviewed the molecular studies. He did confirm the diagnosis. He did feel that her joints are involved in the inflammatory process, that likley triggered AA Amyloid. He checked the serological studies as well. She was started on treatment for the amyloid, Tocilizumab, an IL-6 antibody. She has tolerated it very well. She has had 23 cycles. It did work. She felt better, overall. PLAN: She has had 19 months of therapy with tocilizumab. I felt she had a maximum benefit from the drug. I will hold off on further administration Tocilizumab. I would not like to expose her to long-term toxicity. Will continue to monitor her SIEP. (2) Chronic kidney disease (CKD) stage G3a/A3, moderately decreased glomerular filtration rate (GFR) between 45-59 mL/min/1.73 square meter and albuminuria creatinine ratio greater than 300 mg/g Status: Inactive Assessment and plan: 2) Anemia of Chronic Kidney Disease. Stage IV. She had a renal biopsy. 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 Repeat renal biopsy from mid December 2017, raised concern for AA amylo idosis. Her creatinine level fluctuates, depending upon her hydration status and diuresis. Her kidney function is better, now. Her creatinine from today is 2.3. She follows with Dr. Estrella for CHF. Serum light chain ratio was 1.85 on November 14. SIEP from March 13 revealed: IgG 1107 IgA 560 H IgM 129 IMFIXS INTERP No abnormal bands are present on immunofixation. FREE KAPPA, SER 114.5 FREE LAMBDA SER 90.1 FREE K/L RATIO 1.27 She feels quite fatigued today. Her hemoglobin is 10.4. Creatinine: 2.09, creatinine clearance 26.5, ferritin 417. PLAN: She will receive the Procrit, today. I will follow-up on her SIEP and light chain ratio. She will return monthly for labs and for possible Procrit therapy. She will return in 3 months for a follow-up visit. Thank you, (3) Right knee pain Status: Acute (4) Chronic kidney disease (CKD) stage G4/A1, severely decreased glomerular filtration rate (GFR) between 15-29 mL/min/1.73 square meter and albuminuria creatinine ratio less than 30 mg/g Status: Acute (5) Breast cancer Status: Acute Assessment and plan: 70 year-old lady, with history of Mucinous Carcinoma of the left Breast, 1.8 cm. ER positive SC negative HER-2/tc negative sentinel node negative, stage pT 1C, N0 (i negative.) She was on Tamoxifen in October 2008 to April of 2012. She was then switched to Letrozole end of May 2012. She has completed 5 years of therapy, in the summer of 2016. She is clinically holding stable in that regard. She had a mammogram in January, which was negative. She just had her mammogram. She had to have Mag views. She had a bone density in November, which revealed osteopenia with a T-score of - 1.4. PLAN: She will be due for a repeat mammogram, in 6 month's time. She will return in 3 months for a follow-up visit. Thank you, CC: Dr. Jin. - Time Spent With Patient 25 - 35 minutes
--- NOTE | 2021-05-02 14:59 | MHC.HEMONC ---
Pt here for follow up with Dr Sykes. Labs drawn and reviewed. Pt was in ED on Thursday for c/o dizziness. Pt cleared and discharged home. States she is feeling better today. No further c/o dizziness. Dr Sykes in to see pt. Procrit given as ordered. Hgb 10.4. Scheduled to return in 2 weeks for labs and possible procrit.
[2021-05-03 20:22] LABS: Kappa Light Chain, Free Serum 120.8 mg/L (3.3-19.4); Kappa/Lambda Lt Ch Free Ratio 1.27 (0.26-1.65); Lambda Light Chain, Free Serum 94.8 mg/L (5.7-26.3)
[2021-05-06 15:07] LABS: IgA 591 mg/dL (70-320); IgG 1104 mg/dL (600-1540); IgM 182 mg/dL (50-300)
[2021-05-17 14:04] LABS: MANUAL DIFF FLAG NO
[2021-05-17 14:23] LABS: Basophils Percent Auto 0.3 % (0-2); Eosinophils Absolute Auto 0.1 X10*3/uL (0.0-0.4); Eosinophils Percent Auto 1.1 % (0-4); Hemoglobin 10.2 g/dl (12.0-16.0); Imm Gran Abs Auto 0.03 X10*3/uL (0.00-0.03); Imm Gran Pct Auto 0.4 % (0.0-0.4); Lymphocytes Absolute Auto 0.5 X10*3/uL (1.2-4.9); Lymphocytes Percent Auto 6.4 % (20-40); Mean Corpuscular HGB Conc 30.9 g/dl (31.0-35.0); Mean Corpuscular Hemoglobin 28.6 pg (27.0-33.0); Mean Corpuscular Volume 92.4 fL (80-98); Mean Platelet Volume 11.4 fL (9.4-12.3); Monocytes Absolute Auto 0.5 X10*3/uL (0.1-1.2); Monocytes Percent Auto 7.4 % (2-11); Neutrophils Absolute Auto 6.2 X10*3/uL (2.0-8.3); Neutrophils Percent Auto 84.4 % (45-73); Platelet Count 142 X10*3/uL (160-400); Red Blood Count 3.57 X10*6/uL (4.20-5.50); Red Cell Distribution Width 18.4 % (11.0-16.0); White Blood Count 7.3 X10*3/uL (4.8-10.8)
[2021-05-17 14:30] VITALS: BP 111/67; PULSE 85; RESP 18; TEMP 36.7; O2SAT 98; BMI 22.8
[2021-05-17] MEDS: Epoetin Alfa 40,000 UNIT/ML VIAL 40000 UNIT SUBCUT (14:55)
[2021-05-17 15:02] LABS: Alanine Aminotransferase 19 U/L (0-31); Albumin Level 3.3 g/dL (3.5-5.0); Alkaline Phosphatase 119 U/L (39-117); Anion Gap 16 (12-20); Aspartate Amino Transferase 22 U/L (5-31); Bilirubin Total 0.8 mg/dL (0.0-1.0); Blood Urea Nitrogen 51 mg/dL (9-16); Calcium 8.4 mg/dL (8.4-10.2); Carbon Dioxide 19 mmol/L (22-29); Chloride 107 mmol/L (96-108); Creatinine Clr Calc Pharmacy 29.8; Estimated Glomerular Filt Rate 27; Glucose Random 115 mg/dL (60-115); Potassium 5.7 mmol/L (3.3-5.1); Sodium 136 mmol/L (135-145); Total Protein 6.4 g/dL (6.5-8.0)
--- NOTE | 2021-05-17 15:36 | MHC.HEMONC ---
Hgb 10.2, procrit given as ordered. Pt's potassium level 5.7, reported to Dr Sykes. Will recheck at next visit. Recently was in ED after cutting the corner of her left eye while cleaning it. She had some bleeding. Assisted pt with eye drops to her eye. Is using erythromycin ointment to eye daily. Dr Sykes aware and has instructed pt to hold coumadin for today.
--- NOTE | 2021-05-28 10:29 | MHC.HEMONC ---
pt called to say that she wouldn't be in for Procrit today as she is in ER with dizziness. I asked her to call when she can come in for injection.
[2021-06-04 12:29] LABS: MANUAL DIFF FLAG NO
[2021-06-04 12:32] LABS: Basophils Percent Auto 0.3 % (0-2); Eosinophils Absolute Auto 0.1 X10*3/uL (0.0-0.4); Eosinophils Percent Auto 0.9 % (0-4); Hematocrit 33.4 % (37-47); Imm Gran Abs Auto 0.01 X10*3/uL (0.00-0.03); Imm Gran Pct Auto 0.1 % (0.0-0.4); Lymphocytes Absolute Auto 0.6 X10*3/uL (1.2-4.9); Lymphocytes Percent Auto 8.2 % (20-40); Mean Corpuscular HGB Conc 29.9 g/dl (31.0-35.0); Mean Corpuscular Hemoglobin 28.1 pg (27.0-33.0); Mean Corpuscular Volume 93.8 fL (80-98); Mean Platelet Volume 10.5 fL (9.4-12.3); Monocytes Absolute Auto 0.6 X10*3/uL (0.1-1.2); Monocytes Percent Auto 8.4 % (2-11); Neutrophils Absolute Auto 5.6 X10*3/uL (2.0-8.3); Neutrophils Percent Auto 82.1 % (45-73); Platelet Count 126 X10*3/uL (160-400); Red Blood Count 3.56 X10*6/uL (4.20-5.50); White Blood Count 6.8 X10*3/uL (4.8-10.8)
[2021-06-04 13:07] LABS: Alanine Aminotransferase 22 U/L (0-31); Albumin Level 3.4 g/dL (3.5-5.0); Alkaline Phosphatase 112 U/L (39-117); Anion Gap 13 (12-20); Aspartate Amino Transferase 24 U/L (5-31); Bilirubin Total 0.7 mg/dL (0.0-1.0); Blood Urea Nitrogen 57 mg/dL (9-16); Calcium 8.6 mg/dL (8.4-10.2); Carbon Dioxide 21 mmol/L (22-29); Chloride 107 mmol/L (96-108); Creatinine Clr Calc Pharmacy 21.8; Estimated Glomerular Filt Rate 19; Glucose Random 93 mg/dL (60-115); Potassium 4.9 mmol/L (3.3-5.1); Sodium 136 mmol/L (135-145); Total Protein 6.3 g/dL (6.5-8.0)
[2021-06-04 13:33] VITALS: BP 104/55; PULSE 60; RESP 17; TEMP 36.8; O2SAT 98; BMI 22.9
[2021-06-04] MEDS: Epoetin Alfa 40,000 UNIT/ML VIAL 40000 UNIT SUBCUT (13:35)
--- NOTE | 2021-06-04 13:45 | MHC.HEMONC ---
Pt here for lab draw and procrit injection. Labs drawn by hat steamer-specimen to lab. H & H 10.0/33.4. Platelets 126. Procrit injection given SC in left arm-tolerated well. Follow up appointments scheduled. Discharge packet given. Discharged home
[2021-06-27 13:36] VITALS: BP 125/59; PULSE 80; RESP 12; TEMP 36.8; O2SAT 98; BMI 21.7
[2021-06-27] MEDS: Epoetin Alfa 40,000 UNIT/ML VIAL 40000 UNIT SUBCUT (14:16)
--- NOTE | 2021-06-27 15:09 | MHC.HEMONC ---
Patient arrived for Procrit injection. Hgb=8.6 and NC=856/59. Medication administered in ABRAHAN, patient tolerated it well. Medications reviewed. Patient escorted to patient registration for additional lab work via wheelchair at the conclusion of the visit. Next appointment scheduled for 07/25/21.
[2021-07-03 13:56] VITALS: BP 108/56; PULSE 72; RESP 18; TEMP 36.2; O2SAT 97; BMI 21.9
[2021-07-03] MEDS: Epoetin Alfa 40,000 UNIT/ML VIAL 40000 UNIT SUBCUT (14:11)
[2021-07-11 14:43] VITALS: BP 109/53; PULSE 93; RESP 18; TEMP 36.1; O2SAT 98; BMI 22.0
[2021-07-11 14:53] LABS: MANUAL DIFF FLAG NO
[2021-07-11 14:58] LABS: Basophils Percent Auto 0.3 % (0-2); Eosinophils Absolute Auto 0.1 X10*3/uL (0.0-0.4); Eosinophils Percent Auto 1.1 % (0-4); Hematocrit 31.5 % (37-47); Hemoglobin 9.4 g/dl (12.0-16.0); Imm Gran Abs Auto 0.02 X10*3/uL (0.00-0.03); Imm Gran Pct Auto 0.3 % (0.0-0.4); Lymphocytes Absolute Auto 0.5 X10*3/uL (1.2-4.9); Lymphocytes Percent Auto 7.7 % (20-40); Mean Corpuscular HGB Conc 29.8 g/dl (31.0-35.0); Mean Corpuscular Hemoglobin 28.6 pg (27.0-33.0); Mean Corpuscular Volume 95.7 fL (80-98); Monocytes Absolute Auto 0.6 X10*3/uL (0.1-1.2); Monocytes Percent Auto 9.4 % (2-11); Neutrophils Percent Auto 81.2 % (45-73); Platelet Count 172 X10*3/uL (160-400); Red Blood Count 3.29 X10*6/uL (4.20-5.50); Red Cell Distribution Width 18.6 % (11.0-16.0); White Blood Count 6.1 X10*3/uL (4.8-10.8)
[2021-07-11] MEDS: Epoetin Alfa 40,000 UNIT/ML VIAL 40000 UNIT IVPUSH (15:12)
[2021-07-11 15:16] LABS: Alanine Aminotransferase 27 U/L (0-31); Albumin Level 3.3 g/dL (3.5-5.0); Alkaline Phosphatase 141 U/L (39-117); Anion Gap 13 (12-20); Aspartate Amino Transferase 20 U/L (5-31); Bilirubin Total 0.7 mg/dL (0.0-1.0); Blood Urea Nitrogen 44 mg/dL (9-16); Calcium 8.4 mg/dL (8.4-10.2); Carbon Dioxide 22 mmol/L (22-29); Chloride 110 mmol/L (96-108); Estimated Glomerular Filt Rate 30; Glucose Random 98 mg/dL (60-115); Potassium 4.7 mmol/L (3.3-5.1); Sodium 140 mmol/L (135-145); Total Protein 6.5 g/dL (6.5-8.0)
--- NOTE | 2021-07-11 15:27 | MHC.HEMONC ---
Pt here for Procrit injection. Labs drawn by computer meteorologist-specimen to lab. H & H 9.4/31.5 Procrit 40,000 units given SC in right arm-tolerated well. Discharge packet given. Follow up appointment scheduled
[2021-07-25 13:56] VITALS: BP 116/57; PULSE 60; RESP 18; TEMP 36.2; O2SAT 96; BMI 22.3
[2021-07-25 13:56] LABS: MANUAL DIFF FLAG NO
[2021-07-25 14:15] LABS: Basophils Percent Auto 0.5 % (0-2); Eosinophils Absolute Auto 0.1 X10*3/uL (0.0-0.4); Hematocrit 32.8 % (37-47); Hemoglobin 9.7 g/dl (12.0-16.0); Imm Gran Abs Auto 0.02 X10*3/uL (0.00-0.03); Imm Gran Pct Auto 0.3 % (0.0-0.4); Lymphocytes Absolute Auto 0.5 X10*3/uL (1.2-4.9); Lymphocytes Percent Auto 8.6 % (20-40); Mean Corpuscular HGB Conc 29.6 g/dl (31.0-35.0); Mean Corpuscular Hemoglobin 28.7 pg (27.0-33.0); Mean Platelet Volume 12.1 fL (9.4-12.3); Monocytes Absolute Auto 0.6 X10*3/uL (0.1-1.2); Monocytes Percent Auto 9.4 % (2-11); Neutrophils Percent Auto 80.2 % (45-73); Platelet Count 125 X10*3/uL (160-400); Red Blood Count 3.38 X10*6/uL (4.20-5.50); Red Cell Distribution Width 18.1 % (11.0-16.0); White Blood Count 6.3 X10*3/uL (4.8-10.8)
--- NOTE | 2021-07-25 14:17 | P.PNHO_ITS ---
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 ER positive, NH negative, HER2/tc negative, lymph node negative, stage pT1cN0 I negative. 2) Amyloidosis. 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 Anemia is related to that with an eGFR of 35. CURRENT THERAPY: 1. Tamoxifen, started on October 10, 2008. 2. Letrozole, started end of May 2012. 3. Procrit, q 2 weeks. PRN. 4. Tocilizumab 4mg/kg, started 2017. 23rd cycle on January 09, 2020. Currently on hold. Interval History Interval history: This is a pleasant 70 year-old lady, here for a follow-up visit. She tells me she is in a better situation now. She recently moved in with her daughter. She has been taking care of her very well. She cooks cleans and does her laundry. She fixes her medications in the pill box. She tells me her energy level is low. No headache no dizziness. She denies fever nor chills. No chest pain or trouble breathing. No abdominal pain nausea vomiting heartburn indigestion. Bowels are rather constipated. No gross blood in the stools. She has been using Senokot and MiraLax for her constipation. These do appear to be helping. Her appetite has declined. Her weight is down. She denies easy bruising nor systemic bleeding. She has had joint pains including the back, mid chest, hip and knees. Leg pain upon sitting too long. Sometimes she has a hard time sleeping on account of the pain. Also, she does not sleep too well, because she has to get up to go to the bathroom. She is in good spirits. Rest of the review of systems is unremarkable She was seen in the emergency room, 04/29: HPI: History of afib on coumadin, PPM/ICD, CHF, HTN, HLD, anxiet y/depression, pulm HTN, triscuspic regurgitation, CKD, hypothyroidism, amyloidosis, history of mitral valve replacement, ischemic cardiomyopathy, congestive heart failure, history of breast cancer, here with complaints of dizziness with position changes (described as lightheaded) with associated geraldo sea noted this morning with waking. No MOTLEY, chest pain, sob, vision changes. Concern is that the symptoms are secondary to ALIZA. Plan: Will check labs, EKG, chest x-ray, orthostatic vital signs, urine, CT head 1030-x-rays consistent with congestive heart failure. No pedal edema or shortness of breath or cough. No hypoxia or hypertension. Patient has been compliant with 20 mg of Lasix daily with no reports of weight gain. Add on BNP. Will follow 1125-initial troponin elevated. Chronically elevated secondary to chronic kidney disease. Will plan for repeat 3 hour troponin. No chest pain or EKG change 1150-imaging unremarkable. Renal function at baseline. Patient tells me dizziness and nausea improved after receiving a dose of meclizine and zofran. Tolerated apple juice. Pending repeat troponin. 1330-repeat troponin delta. Patient tolerated a sandwich, crackers and additional apple juice with no reports of nausea or vomiting. She mentioned her dizziness is resolved. She ambulated with a steady gait with her walker with a pulse oximeter of greater than 96% and no shortness of breath of chest pain. We discussed that her BNP is mildly elevated but she has no clinical s/s of CHF. Plan: She will continue her lasix at home, follow a low sodium diet. Has a scheduled appt with Dr Estrella on Thursday. In the meantime she will return for any sob, chest pain, cough, leg swelling. She had an echocardiogram in January. It showed an EF of 15-20%. She actually has an appointment with Dr. Estrella from Cardiology. Review of Systems - Constitutional Reports no additional constitutional complaints, Reports lack of energy, Reports malaise, Reports weight loss - Eyes Reports no additional eye complaints - ENT Reports no additional ear, nose, mouth, and throat complaints - Cardiovascular Reports no additional cardiovascular complaints - Respiratory Reports no additional respiratory complaints - Gastrointestinal Reports no additional gastrointestinal complaints - Genitourinary Reports no additional female genitourinary complaints - Musculoskeletal Reports no additional musculoskeletal complaints - Integumentary/Breasts Skin/Breast: Reports no additional skin complaints - Neurologic Reports no additional neurologic complaints, Reports hearing normal, Reports abnormal gait - Psychiatric Reports no additional psychiatric complaints - Endocrine Reports no additional endocrine complaints - Hematologic/Lymphatic Reports no additional hematologic/lymphatic complaints - Allergic/Immunologic Reports no additional allergic/immunologic complaints PMFSH Medical History: Medical History (Last Reviewed 07/18/21 @ 08:58 by Melissa Frye, WATER AND GAS HELPER-C) Amyloidosis Anxiety and depression Arthritis Bladder hypertonicity Chronic atrial fibrillation Chronic HFrEF (heart failure with reduced ejection fraction) Chronic kidney disease (CKD) stage G4/A1, severely decreased glomerular filtration rate (GFR) between 15-29 mL/min/1.73 square meter and albuminuria creatinine ratio less than 30 mg/g Detached retina Gout Heart disease History of breast cancer History of breast cancer HTN (hypertension) Hypercholesterolemia Hypothyroid ICD (implantable cardioverter-defibrillator) in place Ischemic cardiomyopathy Kidney disease Nephrolithiasis Osteoarthritis Overweight (BMI 25.0-29.9) Pulmonary hypertension Thumb tendonitis Tricuspid regurgitation Urinary incontinence Functional capacity: uses cane/walker Family History: Family History (Last Reviewed 07/18/21 @ 08:58 by Melissa Frye, WATER AND GAS HELPER-C) Mother Diabetes Father Past heart attack Diabetes Sister Parkinsons disease Surgical History: Surgical History (Last Reviewed 07/18/21 @ 08:58 by Melissa Frye NP-C) H/O abdominal hysterectomy H/O mitral valve replacement H/O mitral valve replacement with mechanical valve History of bunionectomy History of cataract surgery History of colonoscopy History of left inguinal hernia repair History of sleeve gastrectomy Social History: Social History (Last Reviewed 07/18/21 @ 08:58 by Melissa Frye, WATER AND GAS HELPER-C) Living Situation History: Household Members: None Household Members Other:: brother lives downstairs Housing: Apartment Do you presently have visiting nurse or other home services: No Alcohol History: Alcohol intake: never Alcohol History Details: Alcohol intake frequency: does not drink Tobacco History: Patient Tobacco Use Status: Never used Tobacco Tobacco use type: Cigarette e-Cigarette/Vaping Use: Never Used Second Hand Smoke Exposure: No Advance Directives: Advance Directives: Yes Advance Directives on File: Advance Directives on File comment: [id number] Nutrition Assessment: Patient : No Occupation Assessmet: service: No Current occupational status: disabled Current occupation: left handed Oncology Screenings - ECOG Performance Status ECOG Performance Status: 2 Home Medications and Allergies Current Medications: Current Medications Generic Name Dose Route Start Last Admin Trade Name Freq PRN Reason Stop Dose Admin Epoetin Maximino 40,000 unit 07/25/21 12:31 Epoetin Maximino 20,000 Unit/Ml Vial SUBCUT 07/25/21 12:32 ONCE ONE Home Medications Medication Instructions Recorded Confirmed Type acetaminophen 325 mg capsule 325 mg PO QID PRN 08/06/20 07/25/21 History (Tylenol) vit C 250 mg-vit E 90 mg-zinc 40 1 tab PO BID 08/06/20 07/25/21 History mg-copper 1 cq-gvxdew-jcfzon capsule (PreserVision AREDS-2) ferrous sulfate 324 mg (65 mg 324 mg PO BID 11/05/20 07/25/21 History iron) tablet,delayed release sennosides 8.6 mg tablet 17.2 mg PO BEDTIME PRN 02/05/21 07/25/21 History erythromycin 5 mg/gram (0.5 %) eye 5 mg OPHTHALMIC (EYE) DAILY 05/14/21 07/25/21 History ointment calcium carbonate 500 mg (1,250 1.5 tab PO DAILY 06/19/21 07/25/21 History mg)-vitamin D3 125 unit tablet potassium chloride 20 mEq 20 meq PO Q48H 06/19/21 07/25/21 History tablet,extended release(part/cryst) (Klor-Con M) warfarin 2.5 mg tablet 1.25 mg PO MOWEFR@1800 06/19/21 07/25/21 History warfarin 2.5 mg tablet 2.5 mg PO SUTUTHSA@1800 06/19/21 07/25/21 History tnodkbkq-nmjyygrjt-sicltwfjq 3.5 5 drp OTIC (EARS) BID 07/16/21 07/25/21 History mg/mL-10,000 unit/mL-1 % ear solution vitamins A,C,N-bqom-nudizm 14,320 1 cap PO BID 07/17/21 07/25/21 History unit-226 mg-200 unit capsule (PreserVision AREDS) Allergies Allergy/AdvReac Type Severity Reaction Status Date / Time TAPE,PAPER Allergy Unknown RASH TO Uncoded 05/23/21 09:57 PAPER TAPE Exam Vital signs: Vital Signs Temp 97.2 F 07/25/21 13:56 Pulse 60 07/25/21 13:56 Resp 18 07/25/21 13:56 BP 116/57 L 07/25/21 13:56 Pulse Ox 96 07/25/21 13:56 Intake & Output 07/24/21 07/25/21 07/25/21 18:59 06:59 18:59 Other: Weight 68.6 kg Weight in Grams 37440 Weight 68.6 kg Body Mass Index 22.3 - Constitutional Present: mild distress - Routine HEENT Exam Head: Present: normal inspection Eye: Present: normal appearance ENT: Present: mucous membranes moist - Routine Neck Exam Present: full ROM - Routine Respiratory Exam Present: CTAB - Routine Cardiovascular Exam Cardiovascular: Present: RRR, S1, S2, S3 - Routine Abdominal Exam Present: soft, nontender - Routine Rectal Exam Patient deferred: digital exam - Routine Extremities Exam Present: nontender - Routine Back/Spine/Pelvis Exam Back/Spine: Present: paraspinal tenderness - Routine Skin Exam Present: intact - Routine Neurological Exam Present: alert, oriented X3 - Detailed Neurological Exam: Coma Scale Eye Opening: Spontaneous (4) - Routine Psychiatric Exam Present: normal affect Data - Labs CBC & Chem 7: 07/25/21 13:54 07/25/21 13:54 Labs: 08/14/20 12:16 CMP [Comprehensive Met. Panel] Routine Complete Blood Count Auto Diff Routine SLIDE REVIEW Routine 08/14/20 13:30 Epoetin Maximino [Procrit] 40,000 unit SUBCUT ONCE ONE 08/29/20 13:24 CMP [Comprehensive Met. Panel] Routine 08/29/20 14:30 Epoetin Maximino [Procrit] 40,000 unit SUBCUT ONCE ONE 09/11/20 10:40 Complete Blood Count Auto Diff Routine Comprehensive Met. Panel Routine SLIDE REVIEW Routine 09/11/20 12:30 Epoetin Maximino [Procrit] 40,000 unit SUBCUT ONCE ONE 09/24/20 14:20 Complete Blood Count Auto Diff Routine Comprehensive Met. Panel Routine Ferritin Routine IRON PROFILE Routine Immunofixation Pnl, Serum Routine [place]/Lambda Lt Ch,Free w rat Routine SLIDE REVIEW Routine 09/24/20 15:15 Epoetin Maximino [Procrit] 40,000 unit SUBCUT ONCE ONE 09/24/20 15:21 Add Laboratory Test Routine 10/08/20 14:39 SLIDE REVIEW Routine 10/08/20 14:39 CMP [Comprehensive Met. Panel] Routine Complete Blood Count Auto Diff Routine 10/08/20 15:15 Epoetin Maximino [Procrit] 40,000 unit SUBCUT ONCE ONE 10/22/20 13:45 SLIDE REVIEW Routine 10/22/20 13:45 Complete Blood Count Auto Diff Routine Comprehensive Met. Panel Routine Ferritin Routine IRON PROFILE Routine 10/22/20 15:00 Epoetin Maximino [Procrit] 40,000 unit SUBCUT ONCE ONE 11/05/20 13:46 SLIDE REVIEW Routine 11/05/20 13:46 CBC W/AUTO DIFF [Complete Blood Count Auto Diff] Routine CMP [Comprehensive Met. Panel] Routine 11/05/20 14:15 Epoetin Maximino [Procrit] 40,000 unit SUBCUT ONCE ONE 11/12/20 14:15 CBC W/AUTO DIFF [Complete Blood Count Auto Diff] Routine SLIDE REVIEW Routine 11/12/20 15:00 Epoetin Maximino [Procrit] 40,000 unit SUBCUT ONCE ONE 11/19/20 14:20 Complete Blood Count Auto Diff Routine Profile w/ Glucose [place] [Comprehensive Met. Panel] Routine SLIDE REVIEW Routine 11/19/20 15:00 Epoetin Maximino [Procrit] 40,000 unit SUBCUT ONCE ONE 12/04/20 13:46 CMP [Comprehensive Met. Panel] Routine Complete Blood Count Auto Diff Routine SLIDE REVIEW Routine 12/04/20 14:15 Epoetin Maximino [Procrit] 40,000 unit SUBCUT ONCE ONE 12/18/20 11:57 Epoetin Maximino [Procrit] 40,000 unit SUBCUT ONCE ONE 12/20/20 14:15 CMP [Comprehensive Met. Panel] Routine Complete Blood Count Auto Diff Routine SLIDE REVIEW Routine 12/20/20 14:45 Epoetin Maximino [Procrit] 40,000 unit SUBCUT ONCE ONE 12/27/20 13:39 SLIDE REVIEW Routine 12/27/20 13:39 CMP [Comprehensive Met. Panel] Routine Complete Blood Count Auto Diff Routine 12/27/20 14:00 Epoetin Maximino [Procrit] 40,000 unit SUBCUT ONCE ONE 01/10/21 13:55 Complete Blood Count Auto Diff Routine Comprehensive Met. Panel Routine Ferritin Routine IRON PROFILE Routine SLIDE REVIEW Routine 01/10/21 14:15 Epoetin Maximino [Procrit] 40,000 unit SUBCUT ONCE ONE Laboratory Last Values WBC 6.3 X10*3/uL (4.8-10.8) 01/21/21 13:30 RBC 3.56 X10*6/uL (4.20-5.50) L 01/21/21 13:30 Hgb 9.5 g/dl (12.0-16.0) L 01/21/21 13:30 Hct 32.2 % (37-47) L 01/21/21 13:30 MCV 90.4 fL (80-98) 01/21/21 13:30 MCH 26.7 pg (27.0-33.0) L 01/21/21 13:30 MCHC 29.5 g/dl (31.0-35.0) L 01/21/21 13:30 RDW 18.5 % (11.0-16.0) H 01/21/21 13:30 Plt Count 137 X10*3/uL (160-400) L 01/21/21 13:30 MPV 11.1 fL (9.4-12.3) 01/21/21 13:30 Immature Gran % (Auto) 0.2 % (0.0-0.4) 01/10/21 13:55 Neut % (Auto) 77.9 % (45-73) H 01/10/21 13:55 Lymph % (Auto) 9.8 % (20-40) L 01/10/21 13:55 [place] % (Auto) 8.5 % (2-11) 01/10/21 13:55 Eos % (Auto) 2.9 % (0-4) 01/10/21 13:55 Baso % (Auto) 0.7 % (0-2) 01/10/21 13:55 Neut # (Auto) 5.1 X10*3/uL (2.0-8.3) 08/14/20 12:16 Lymph # (Auto) 0.6 X10*3/uL (1.2-4.9) L 01/10/21 13:55 [place] # (Auto) 0.5 X10*3/uL (0.1-1.2) 01/10/21 13:55 Eos # (Auto) 0.2 X10*3/uL (0.0-0.4) 01/10/21 13:55 Baso # (Auto) 0.0 X10*3/uL (0.0-0.2) 01/10/21 13:55 Abs Immat Gran (auto) 0.01 X10*3/uL (0.00-0.03) 01/10/21 13:55 Absolute Neuts (auto) 4.8 X10*3/uL (2.0-8.3) 01/10/21 13:55 Absolute Nucleated RBC 0.000 X10*3/uL (0.0-0.012) 01/10/21 13:55 Nucleated RBC % (auto) 0.0 /100WBC (0.0-0.2) 01/10/21 13:55 Smear Tech's Comments VERIFIED 01/10/21 13:55 Sodium 138 mmol/L (135-145) 01/10/21 13:55 Potassium 4.9 mmol/L (3.3-5.1) 01/10/21 13:55 Chloride 105 mmol/L (96-108) 01/10/21 13:55 Carbon Dioxide 24 mmol/L (22-29) 01/10/21 13:55 Anion Gap 14 (12-20) 01/10/21 13:55 BUN 54 mg/dL (9-16) H 01/10/21 13:55 Creatinine 2.75 mg/dL (0.5-1.4) H 01/10/21 13:55 Estim Creat Clear Calc 20.1 01/10/21 13:55 Estimated GFR 17 01/10/21 13:55 Random Glucose 83 mg/dL (60-115) 01/10/21 13:55 Calcium 8.4 mg/dL (8.4-10.2) 01/10/21 13:55 Iron 41 mcg/dL (30-160) 01/10/21 13:55 TIBC 228 mcg/dL (228-428) 01/10/21 13:55 % Saturation 18 % (15-50) 01/10/21 13:55 Unsat Iron Binding 187 ug/dL 01/10/21 13:55 Ferritin 267 ng/mL (10-250) H 01/10/21 13:55 Total Bilirubin 0.6 mg/dL (0.0-1.0) 01/10/21 13:55 AST 20 U/L (5-31) 01/10/21 13:55 ALT 17 U/L (0-31) 01/10/21 13:55 Alkaline Phosphatase 148 U/L (39-117) H 01/10/21 13:55 Total Protein 6.6 g/dL (6.5-8.0) 01/10/21 13:55 Albumin 3.3 g/dL (3.5-5.0) L 01/10/21 13:55 Urine Color YELLOW 09/11/20 11:24 Urine Appearance CLEAR 09/11/20 11:24 Urine pH 6.0 (5.0-8.0) 09/11/20 11:24 Ur Specific [place] 1.020 (1.005-1.025) 09/11/20 11:24 Urine Protein 2+ MG/DL (NEG-TRACE) H 09/11/20 11:24 Urine Glucose (UA) NEG MG/DL (NEG) 09/11/20 11:24 Urine Ketones NEG MG/DL (NEG) 09/11/20 11:24 Urine Blood 1+ (NEG) H 09/11/20 11:24 Urine Nitrite NEG (NEG) 09/11/20 11:24 Ur Leukocyte Esterase NEG (NEG) 09/11/20 11:24 Urine RBC 5-9 /HPF (0) H 09/11/20 11:24 Urine WBC 1-4 /HPF (0-4) 09/11/20 11:24 Ur Squamous Epith Cells 1+ /LPF 09/11/20 11:24 Urine Bacteria NONE /LPF 09/11/20 11:24 IgG Total 1716 mg/dL (600-1540) H 09/24/20 14:20 IgA Total 699 mg/dL (70-320) H 09/24/20 14:20 IgM 188 mg/dL (50-300) 09/24/20 14:20 NADINE Interpretation SEE NOTE 09/24/20 14:20 Free [place] LC, Quant 191.1 mg/L (3.3-19.4) H 09/24/20 14:20 Free Lambda LC, Quant 99.0 mg/L (5.7-26.3) H 09/24/20 14:20 Free [place]/Lambda Ratio 1.93 (0.26-1.65) H 09/24/20 14:20 Assessment and Plan Patient Active problem list reviewed?: Yes (1) Amyloidosis Status: Acute Assessment and plan: This is a pleasant 70-year-old lady, here for a follow-up visit. She had a renal biopsy on December 24 which revealed AA type Amyloidosis. I proceeded with a bone marrow exam, for further staging. This came back negative for involvement with amyloid. I proceeded with further valuation and staging. I requested an LDH, SIEP and serum free light chain ratio. LDH is 246. SIEP: IgG 1737 IgA 539 IgM 206 IMFIXS INTERP No abnormal bands are present on immunofixation. B-2 MICROGLOB 10.40 FREE KAPPA, SER 155.0 FREE LAMBDA SER 91.2 FREE K/L RATIO 1.70. HLA-B27 Positive Jan 25. Repeat free light chain ratio from 08/02/2018, revealed: FREE KAPPA, SER 60.9 FREE LAMBDA SER 32.6 FREE K/L RATIO 1.87 My concern was if she has cardiac involvement by amyloid. I checked an echocardiogram. This revealed moderate lady dilated LV, with severe LV systolic dysfunction, with RWMA in LAD territory, c/w ischemic cardiomyopathy. The LA is severely dilated. Prosthetic mitral valve appears to be functioning normally. Mild pulmonary hypertension. No pericardial effusion. Unfortunately she is not able to get an MRI of the heart due to the hardware, that she has. I checked NT proBNP(7622). She was sent to Dr. Kaelyn Deleon, in [place], he is the amyloid guru. He mentioned and that her renal biopsy was sent to [facility], he reviewed the molecular studies. He did confirm the diagnosis. He did feel that her joints are involved in the inflammatory process, that likley triggered AA Amyloid. He checked the serological studies as well. She was started on treatment for the amyloid, Tocilizumab, an IL-6 antibody. She has tolerated it very well. She has had 23 cycles. It did work. She felt better, overall. PLAN: She has had 19 months of therapy with tocilizumab. I felt she had a maximum benefit from the drug. I will hold off on further administration Tocilizumab. I would not like to expose her to long-term toxicity. Will continue to monitor her SIEP. (2) Chronic kidney disease (CKD) stage G3a/A3, moderately decreased glomerular filtration rate (GFR) between 45-59 mL/min/1.73 square meter and albuminuria creatinine ratio greater than 300 mg/g Status: Inactive Assessment and plan: 2) Anemia of Chronic Kidney Disease. Stage IV. She had a renal biopsy. 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 Repeat renal biopsy from mid December 2017, raised concern for AA amyloidosis. Her creatinine level fluctuates, depending upon her hydration status and diuresis. Her kidney function is better, now. Her creatinine from today is 2.3. She follows with Dr. Estrella for CHF. Serum light chain ratio was 1.85 on November 14. SIEP from March 13 revealed: IgG 1107 IgA 560 H IgM 129 IMFIXS INTERP No abnormal bands are present on immunofixation. FREE KAPPA, SER 114.5 FREE LAMBDA SER 90.1 FREE K/L RATIO 1.27 She feels quite fatigued today. Her hemoglobin is 10.4. Creatinine: 2.5, creatinine clearance 26.5, ferritin 417. PLAN: She will receive the Procrit, today. I will follow-up on her SIEP and light chain ratio. She will return monthly for labs and for possible Procrit therapy. She will return in 3 months for a follow-up visit. Thank you, (3) Right knee pain Status: Acute (4) Chronic kidney disease (CKD) stage G4/A1, severely decreased glomerular filt ration rate (GFR) between 15-29 mL/min/1.73 square meter and albuminuria creatinine ratio less than 30 mg/g Status: Acute (5) Breast cancer Status: Acute Assessment and plan: 70 year-old lady, with history of Mucinous Carcinoma of the left Breast, 1.8 cm. ER positive NH negative HER-2/tc negative sentinel node negative, stage pT 1C, N0 (i negative.) She was on Tamoxifen in October 2008 to April of 2012. She was then switched to Letrozole end of May 2012. She has completed 5 years of therapy, in the summer of 2016. She is clinically holding stable in that regard. She had a mammogram in January, which was negative. She just had her mammogram. She had to have Mag views. She had a bone density in November, which revealed osteopenia with a T-score of - 1.4. PLAN: She will be due for a repeat mammogram, in 6 month's time. She will return in 3 months for a follow-up visit. Thank you, CC: Dr. Po. - Time Spent With Patient Time Spent with Patient (in minutes): 30
--- NOTE | 2021-07-25 14:30 | MHC.HEMONC ---
Pt here for lab draw, procrit injection and Hem follow up with Dr Sykes. Labs drawn by photography editor-specimen to lab. Pt states she is living with her daughter now. States feels anxious at times, continues with fatigue and back pain. Clinical summary updated by nurse. Dr Sykes into see pt. Procrit injection given SC H &H 9.7/32.8 Platelets 125. Discharge packet given. Follow up appointments scheduled.
[2021-07-25] MEDS: Epoetin Alfa 40,000 UNIT/ML VIAL 40000 UNIT SUBCUT (14:41)
[2021-07-25 14:46] LABS: Alanine Aminotransferase 24 U/L (0-31); Albumin Level 3.2 g/dL (3.5-5.0); Alkaline Phosphatase 124 U/L (39-117); Anion Gap 11 (12-20); Aspartate Amino Transferase 24 U/L (5-31); Bilirubin Total 0.8 mg/dL (0.0-1.0); Blood Urea Nitrogen 51 mg/dL (9-16); Calcium 8.2 mg/dL (8.4-10.2); Carbon Dioxide 22 mmol/L (22-29); Chloride 114 mmol/L (96-108); Estimated Glomerular Filt Rate 19; Glucose Random 86 mg/dL (60-115); Potassium 4.7 mmol/L (3.3-5.1); Sodium 142 mmol/L (135-145)
[2021-07-25 16:17] LABS: Iron 26 mcg/dL (30-160); Percent Iron Saturation 11 % (15-50); Total Iron Binding Capacity 232 mcg/dL (228-428); Unsaturated Iron Binding 206 ug/dL
[2021-07-25 16:39] LABS: Ferritin 224 ng/mL (10-250)
[2021-07-31 15:01] LABS: IgA 532 mg/dL (70-320); IgG 1080 mg/dL (600-1540); IgM 147 mg/dL (50-300)
[2021-08-08 13:49] LABS: MANUAL DIFF FLAG NO
[2021-08-08 13:54] LABS: Basophils Percent Auto 0.4 % (0-2); Eosinophils Absolute Auto 0.1 X10*3/uL (0.0-0.4); Eosinophils Percent Auto 1.1 % (0-4); Hematocrit 34.3 % (37-47); Hemoglobin 10.1 g/dl (12.0-16.0); Imm Gran Abs Auto 0.01 X10*3/uL (0.00-0.03); Imm Gran Pct Auto 0.2 % (0.0-0.4); Lymphocytes Absolute Auto 0.5 X10*3/uL (1.2-4.9); Lymphocytes Percent Auto 8.7 % (20-40); Mean Corpuscular HGB Conc 29.4 g/dl (31.0-35.0); Mean Corpuscular Hemoglobin 28.2 pg (27.0-33.0); Mean Corpuscular Volume 95.8 fL (80-98); Monocytes Absolute Auto 0.5 X10*3/uL (0.1-1.2); Monocytes Percent Auto 8.5 % (2-11); Neutrophils Absolute Auto 4.6 X10*3/uL (2.0-8.3); Neutrophils Percent Auto 81.1 % (45-73); Platelet Count 108 X10*3/uL (160-400); Red Blood Count 3.58 X10*6/uL (4.20-5.50); Red Cell Distribution Width 17.4 % (11.0-16.0); White Blood Count 5.6 X10*3/uL (4.8-10.8)
[2021-08-08 14:13] LABS: Alanine Aminotransferase 30 U/L (0-31); Albumin Level 3.3 g/dL (3.5-5.0); Alkaline Phosphatase 133 U/L (39-117); Anion Gap 14 (12-20); Aspartate Amino Transferase 25 U/L (5-31); Bilirubin Total 0.7 mg/dL (0.0-1.0); Blood Urea Nitrogen 62 mg/dL (9-16); Calcium 8.1 mg/dL (8.4-10.2); Carbon Dioxide 21 mmol/L (22-29); Chloride 109 mmol/L (96-108); Creatinine Clr Calc Pharmacy 20.7; Estimated Glomerular Filt Rate 18; Glucose Random 104 mg/dL (60-115); Potassium 4.8 mmol/L (3.3-5.1); Sodium 139 mmol/L (135-145); Total Protein 6.1 g/dL (6.5-8.0)
[2021-08-08 14:14] VITALS: BP 112/54; PULSE 60; RESP 18; TEMP 36.2; O2SAT 100; BMI 22.8
[2021-08-08] MEDS: Epoetin Alfa 40,000 UNIT/ML VIAL 40000 UNIT SUBCUT (14:23)
--- NOTE | 2021-08-08 14:33 | MHC.HEMONC ---
Pt here for Procrit injection. Labs drawn by health and safety inspector-specimen to lab. H & H 10.1/34.3 plt 108. Procrit SC given in left arm-tolerated well. Follow up appointment scheduled. Discharge packet given
[2021-08-20 14:08] LABS: MANUAL DIFF FLAG NO
[2021-08-20 14:12] LABS: Basophils Percent Auto 0.3 % (0-2); Eosinophils Absolute Auto 0.1 X10*3/uL (0.0-0.4); Eosinophils Percent Auto 1.2 % (0-4); Hematocrit 36.3 % (37-47); Hemoglobin 10.9 g/dl (12.0-16.0); Imm Gran Abs Auto 0.01 X10*3/uL (0.00-0.03); Imm Gran Pct Auto 0.2 % (0.0-0.4); Lymphocytes Absolute Auto 0.4 X10*3/uL (1.2-4.9); Lymphocytes Percent Auto 6.5 % (20-40); Mean Corpuscular Hemoglobin 28.5 pg (27.0-33.0); Mean Platelet Volume 11.2 fL (9.4-12.3); Monocytes Absolute Auto 0.5 X10*3/uL (0.1-1.2); Monocytes Percent Auto 8.2 % (2-11); Neutrophils Percent Auto 83.6 % (45-73); Platelet Count 133 X10*3/uL (160-400); Red Blood Count 3.82 X10*6/uL (4.20-5.50); Red Cell Distribution Width 17.7 % (11.0-16.0)
[2021-08-20 14:36] LABS: Alanine Aminotransferase 30 U/L (0-31); Albumin Level 3.4 g/dL (3.5-5.0); Alkaline Phosphatase 150 U/L (39-117); Anion Gap 13 (12-20); Aspartate Amino Transferase 21 U/L (5-31); Bilirubin Total 0.6 mg/dL (0.0-1.0); Blood Urea Nitrogen 59 mg/dL (9-16); Calcium 8.3 mg/dL (8.4-10.2); Carbon Dioxide 23 mmol/L (22-29); Chloride 110 mmol/L (96-108); Creatinine Clr Calc Pharmacy 18.8; Estimated Glomerular Filt Rate 16; Glucose Random 108 mg/dL (60-115); Sodium 141 mmol/L (135-145); Total Protein 6.4 g/dL (6.5-8.0)
--- NOTE | 2021-08-20 14:41 | MHC.HEMONC ---
Pt here for Procrit injection. Labs drawn by hair tinter-specimen to lab Hgb 10.9. Procrit not indicated. Discharge packet given. Follow up appointment scheduled.
[2021-09-02 11:46] LABS: MANUAL DIFF FLAG NO
[2021-09-02 11:59] LABS: Basophils Percent Auto 0.2 % (0-2); Eosinophils Percent Auto 0.5 % (0-4); Hematocrit 31.3 % (37-47); Hemoglobin 9.4 g/dl (12.0-16.0); Imm Gran Abs Auto 0.02 X10*3/uL (0.00-0.03); Imm Gran Pct Auto 0.4 % (0.0-0.4); Lymphocytes Absolute Auto 0.4 X10*3/uL (1.2-4.9); Mean Corpuscular Hemoglobin 28.3 pg (27.0-33.0); Mean Corpuscular Volume 94.3 fL (80-98); Mean Platelet Volume 12.5 fL (9.4-12.3); Monocytes Absolute Auto 0.4 X10*3/uL (0.1-1.2); Monocytes Percent Auto 6.5 % (2-11); Neutrophils Absolute Auto 4.7 X10*3/uL (2.0-8.3); Neutrophils Percent Auto 84.4 % (45-73); Platelet Count 122 X10*3/uL (160-400); Red Blood Count 3.32 X10*6/uL (4.20-5.50); Red Cell Distribution Width 17.9 % (11.0-16.0); White Blood Count 5.5 X10*3/uL (4.8-10.8)
[2021-09-02 12:47] VITALS: BP 93/51; PULSE 59; RESP 16; TEMP 36.3; O2SAT 99
[2021-09-02 12:49] VITALS: BP 98/52
[2021-09-02] MEDS: Epoetin Alfa 40,000 UNIT/ML VIAL 40000 UNIT SUBCUT (12:50)
[2021-09-02 12:53] VITALS: BMI 22.8
[2021-09-02 13:23] LABS: Alanine Aminotransferase 22 U/L (0-31); Albumin Level 3.1 g/dL (3.5-5.0); Alkaline Phosphatase 133 U/L (39-117); Anion Gap 12 (12-20); Aspartate Amino Transferase 19 U/L (5-31); Bilirubin Total 0.7 mg/dL (0.0-1.0); Blood Urea Nitrogen 71 mg/dL (9-16); Calcium 8.2 mg/dL (8.4-10.2); Carbon Dioxide 21 mmol/L (22-29); Chloride 109 mmol/L (96-108); Creatinine Clr Calc Pharmacy 16.9; Estimated Glomerular Filt Rate 14; Glucose Random 125 mg/dL (60-115); Potassium 4.9 mmol/L (3.3-5.1); Sodium 137 mmol/L (135-145); Total Protein 5.8 g/dL (6.5-8.0)
--- NOTE | 2021-09-02 15:35 | MHC.HEMONC ---
Labs obtained Hgb 9.4- Procrit administered to right upper arm and well tolerated. BP low at 95/62- Patient asymptotic.
--- NOTE | 2021-09-02 15:41 | MHC.HEMONC ---
HGB 9.4- procrit administered to right upper arm and well tolerated. BP low at 95/62- Patient asymptomatic. Patient states she has not had much to drink today Water given. BP recheck no change- Patient has cardiology appt today at 215. Patient accompanied to Cardiology via wheelchair.
[2021-09-16 14:43] LABS: MANUAL DIFF FLAG NO
[2021-09-16 14:49] LABS: Basophils Percent Auto 0.5 % (0-2); Eosinophils Absolute Auto 0.1 X10*3/uL (0.0-0.4); Eosinophils Percent Auto 1.2 % (0-4); Hemoglobin 9.2 g/dl (12.0-16.0); Lymphocytes Absolute Auto 0.4 X10*3/uL (1.2-4.9); Lymphocytes Percent Auto 9.9 % (20-40); Mean Corpuscular HGB Conc 29.7 g/dl (31.0-35.0); Mean Corpuscular Hemoglobin 27.8 pg (27.0-33.0); Mean Corpuscular Volume 93.7 fL (80.0-98.0); Mean Platelet Volume 12.6 fL (9.4-12.3); Monocytes Absolute Auto 0.4 X10*3/uL (0.1-1.2); Monocytes Percent Auto 9.2 % (2-11); Neutrophils Absolute Auto 3.2 x10*3/uL (2.0-8.3); Neutrophils Percent Auto 79.2 % (45-73); Platelet Count 120 X10*3/uL (160-400); Red Blood Count 3.31 X10*6/uL (4.20-5.50); Red Cell Distribution Width 18.3 % (11.0-16.0)
[2021-09-16 15:07] LABS: Alanine Aminotransferase 29 U/L (0-31); Albumin Level 3.1 g/dL (3.5-5.0); Alkaline Phosphatase 162 U/L (39-117); Anion Gap 16 (12-20); Aspartate Amino Transferase 25 U/L (5-31); Bilirubin Total 0.8 mg/dL (0.0-1.0); Blood Urea Nitrogen 85 mg/dL (9-16); Calcium 8.1 mg/dL (8.4-10.2); Carbon Dioxide 27 mmol/L (22-29); Chloride 104 mmol/L (96-108); Creatinine Clr Calc Pharmacy 21.5; Estimated Glomerular Filt Rate 19; Glucose Random 106 mg/dL (60-115); Potassium 4.2 mmol/L (3.3-5.1); Sodium 143 mmol/L (135-145); Total Protein 6.7 g/dL (6.5-8.0)
[2021-09-16 15:11] VITALS: BP 112/55; PULSE 71; RESP 18; TEMP 36.2; O2SAT 98; BMI 22.4
[2021-09-16] MEDS: Epoetin Alfa 40,000 UNIT/ML VIAL 40000 UNIT SUBCUT (15:12)
--- NOTE | 2021-09-16 15:19 | MHC.HEMONC ---
Pt here for lab draw and procrit injection. 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 H & H 9.. Procrit injection given SC in left arm-tolerated well. Pt has appointment on Thursday09/20/[address] Rock. BUN [address] Maohney and Dr Rock's office-Spoke with Lindsay.. Follow up appointment scheduled. Discharge packet given
[2021-09-30 13:58] LABS: MANUAL DIFF FLAG NO
[2021-09-30 14:03] LABS: Basophils Percent Auto 0.2 % (0-2); Eosinophils Percent Auto 0.6 % (0-4); Hematocrit 32.1 % (37.0-47.0); Hemoglobin 9.5 g/dl (12.0-16.0); Imm Gran Abs Auto 0.01 X10*3/uL (0.00-0.03); Imm Gran Pct Auto 0.2 % (0.0-0.4); Lymphocytes Absolute Auto 0.3 X10*3/uL (1.2-4.9); Lymphocytes Percent Auto 5.9 % (20-40); Mean Corpuscular HGB Conc 29.6 g/dl (31.0-35.0); Mean Corpuscular Hemoglobin 27.9 pg (27.0-33.0); Mean Corpuscular Volume 94.1 fL (80.0-98.0); Mean Platelet Volume 11.7 fL (9.4-12.3); Monocytes Absolute Auto 0.4 X10*3/uL (0.1-1.2); Monocytes Percent Auto 7.8 % (2-11); Neutrophils Absolute Auto 4.5 x10*3/uL (2.0-8.3); Neutrophils Percent Auto 85.3 % (45-73); Platelet Count 138 X10*3/uL (160-400); Red Blood Count 3.41 X10*6/uL (4.20-5.50); Red Cell Distribution Width 18.7 % (11.0-16.0); White Blood Count 5.3 X10*3/uL (4.8-10.8)
[2021-09-30 14:29] LABS: Alanine Aminotransferase 28 U/L (0-31); Albumin Level 3.2 g/dL (3.5-5.0); Alkaline Phosphatase 164 U/L (39-117); Anion Gap 16 (12-20); Aspartate Amino Transferase 26 U/L (5-31); Bilirubin Total 0.7 mg/dL (0.0-1.0); Blood Urea Nitrogen 82 mg/dL (9-16); Calcium 8.2 mg/dL (8.4-10.2); Carbon Dioxide 26 mmol/L (22-29); Chloride 103 mmol/L (96-108); Creatinine Clr Calc Pharmacy 20.3; Estimated Glomerular Filt Rate 17; Glucose Random 103 mg/dL (60-115); Potassium 4.7 mmol/L (3.3-5.1); Sodium 140 mmol/L (135-145)
[2021-09-30 14:37] VITALS: BP 117/58; PULSE 77; RESP 18; TEMP 36.2; O2SAT 98; BMI 23.2
[2021-09-30] MEDS: Epoetin Alfa 40,000 UNIT/ML VIAL 40000 UNIT SUBCUT (14:54)
--- NOTE | 2021-09-30 16:16 | MHC.HEMONC ---
Procrit given as ordered. Hgb 9.5. Next procrit scheduled for 2 weeks.
[2021-10-03 20:32] LABS: IgA 769 mg/dL (70-320); IgG 1831 mg/dL (600-1540); IgM 161 mg/dL (50-300)
--- NOTE | 2021-10-29 13:37 | P.PNHO_ITS ---
Medical Summary - Medical Summary Date of Service: 10/29/21 Chief complaint: Follow-up for: 1. Amyloidosis. 2. Breast cancer. 3. ACD. 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 ER positive, MI negative, HER2/tc negative, lymph node negative, stage pT1cN0 I negative. 2) Amyloidosis. 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 Anemia is related to that with an eGFR of 35. CURRENT THERAPY: 1. Tamoxifen, started on October 10, 2008. 2. Letrozole, started end of May 2012. 3. Procrit, q 2 weeks. PRN. 4. Tocilizumab 4mg/kg, started 2017. 23rd cycle on January 09, 2020. Currently on hold. Interval History Interval history: This is a pleasant 71 year-old lady, here for a follow-up visit. She was in house twice this month. First she was in house 10/09 for 7 days. Then readmitted on 10/21. Discharge summary: She presented with pain, swelling, warmth and redness to the left hand/wrist. States early October, transported to hospital/IV started. Seen at home 10/19/21 byCCBertha GEOGRAPHIC INFORMATION SCIENTIST. Started on Keflex. States hand progressively worse.In ER , given dose of Ancef. Plain films left hand unremarkable. She was treated for left hand cellulitis with Vancomycin and Zosyn. While in the hospital, cultures have been negative, erythema and swelling going down, no fever, WBC is normal. Dr Yo from infectious disease has evaluated her and recommend Oral doxycyline for 10 days upon dishcarge. Her chronic medical issues are stable and no alteration in home meds. Will discharge with home PT/OT, she doesn't want to go to STR/rehab. She tells me her energy level is low. She is in a wheelchair today because of the hand cellulitis she is unable to maneuver the walker. No headache no dizziness. She denies fever nor chills. No chest pain or trouble breathing. No abdominal pain nausea vomiting heartburn indigestion. Bowels are rather constipated. No gross blood in the stools. She has been using Senokot and MiraLax for her constipation. These do appear to be helping. Her appetite has declined. Her weight is down. She denies easy bruising nor systemic bleeding. She has had joint pains including the back, mid chest, hip and knees. Leg pain upon sitting too long. Sometimes she has a hard time sleeping on account of the pain. Also, she does not sleep too well, because she has to get up to go to the bathroom. She is in good spirits. Rest of the review of systems is unremarkable She tells me she is in a better situation now. She recently moved in with her daughter. She has been taking care of her very well. She cooks cleans and does her laundry. She fixes her medications in the pill box. Previous history: She was seen in the emergency room, 04/29: HPI: History of afib on coumadin, PPM/ICD, CHF, HTN, HLD, anxiety/depression, pulm HTN, triscuspic regurgitation, CKD, hypothyroidism, amyloidosis, history of mitral valve replacement, ischemic cardiomyopathy, congestive heart failure, history of breast cancer, here with complaints of dizziness with position changes (described as lightheaded) with associated nausea noted this morning with waking. No MOTLEY, chest pain, sob, vision changes. Concern is that the symptoms are secondary to ALIZA. Plan: Will check labs, EKG, chest x-ray, orthostatic vital signs, urine, CT head 1030-x-rays consistent with congestive heart failure. No pedal edema or shortness of breath or cough. No hypoxia or hypertension. Patient has been compliant with 20 mg of Lasix daily with no reports of weight gain. Add on BNP. Will follow 1125-initial troponin elevated. Chronically elevated secondary to chronic kidney disease. Will plan for repeat 3 hour troponin. No chest pain or EKG change 1150-imaging unremarkable. Renal function at baseline. Patient tells me dizzi ness and nausea improved after receiving a dose of meclizine and zofran. Tolerated apple juice. Pending repeat troponin. 1330-repeat troponin delta. Patient tolerated a sandwich, crackers and additi onal apple juice with no reports of nausea or vomiting. She mentioned her dizziness is resolved. She ambulated with a steady gait with her walker with a pulse oximeter of greater than 96% and no shortness of breath of chest pain. We discussed that her BNP is mildly elevated but she has no clinical s/s of CHF. Plan: She will continue her lasix at home, follow a low sodium diet. Has a scheduled appt with Dr Estrella on Thursday. In the meantime she will return for any sob, chest pain, cough, leg swelling. She had an echocardiogram in January. It showed an EF of 15-20%. She actually has an appointment with Dr. Estrella from Cardiology. P.M. H: chronic heart failure with reduced ejection fraction and diastolic dysfunction, amyloidosis, anemia, anxiety, depression, atrial fibrillation, CKD, heart disease, hypertension, ischemic cardiomyopathy Review of Systems - Constitutional Reports system reviewed and no additional complaints, except as documented - Eyes Reports system reviewed and no additional complaints, except as documented - ENT Reports system reviewed and no additional complaints, except as documented - Cardiovascular Reports system reviewed and no additional complaints, except as documented - Respiratory Reports no additional respiratory complaints - Gastrointestinal Reports system reviewed and no additional complaints, except as documented - Genitourinary Reports no additional female genitourinary complaints - Musculoskeletal Reports system reviewed and no additional complaints, except as documented - Integumentary/Breasts Skin/Breast: Reports no additional skin complaints - Neurologic Reports system reviewed and no additional complaints, except as documented, Reports hearing normal, Reports abnormal gait - Psychiatric Reports system reviewed and no additional complaints, except as documented - Endocrine Reports no additional endocrine complaints - Hematologic/Lymphatic Reports system reviewed and no additional complaints, except as documented - Allergic/Immunologic Reports system reviewed and no additional complaints, except as documented PMFSH Medical History: Medical History (Last Reviewed 10/29/21 @ 13:42 by Manuela Singh) Acute on chronic heart failure with reduced ejection fraction and diastolic dysfunction Amyloidosis Amyloidosis Anemia Anemia Anxiety and depression Arthritis Bladder hypertonicity CHF (congestive heart failure) Chronic atrial fibrillation Chronic heart failure with reduced ejection fraction and diastolic dysfunction Chronic HFrEF (heart failure with reduced ejection fraction) Chronic kidney disease (CKD) stage G4/A1, severely decreased glomerular filtration rate (GFR) between 15-29 mL/min/1.73 square meter and albuminuria creatinine ratio less than 30 mg/g CKD (chronic kidney disease) stage 4, GFR 15-29 ml/min Detached retina Gout Heart disease Hemorrhoids with complication History of breast cancer History of breast cancer HTN (hypertension) Hypercholesterolemia Hypothyroid ICD (implantable cardioverter-defibrillator) in place Ischemic cardiomyopathy Kidney disease Nephrolithiasis Osteoarthritis Overweight (BMI 25.0-29.9) Pulmonary hypertension Thumb tendonitis Tricuspid regurgitation Urinary incontinence Wrist swelling Functional capacity: uses cane/walker Family History: Family History (Last Reviewed 10/29/21 @ 13:42 by Manuela Singh) Mother Diabetes Father Past heart attack Diabetes Sister Parkinsons disease Surgical History: Surgical History (Last Reviewed 10/29/21 @ 13:42 by Manuela Singh) H/O abdominal hysterectomy H/O mitral valve replacement H/O mitral valve replacement with mechanical valve History of bunionectomy History of cataract surgery History of colonoscopy History of left inguinal hernia repair History of sleeve gastrectomy Mechanical heart valve present Social History: Social History (Last Reviewed 10/29/21 @ 13:42 by Manuela Singh) Living Situation History: Household Members: Family Household Members Other:: daughter Housing: House Do you presently have visiting nurse or other home services: No Alcohol History: Alcohol intake: never Alcohol History Details: Alcohol intake frequency: does not drink Tobacco History: Patient Tobacco Use Status: Never used Tobacco Tobacco use type: Cigarette e-Cigarette/Vaping Use: Never Used Second Hand Smoke Exposure: No Advance Directives: Advance Directives Date on File: 10/09/21 Occupation Assessmet: service: No Current occupational status: retired Current occupation: left handed Second hand tobacco smoke exposure: No Oncology Screenings - ECOG Performance Status ECOG Performance Status: 2 Home Medications and Allergies Home Medications Medication Instructions Recorded Confirmed Type acetaminophen 325 mg capsule 325 mg PO QID PRN 08/06/20 10/31/21 History (Tylenol) vit C 250 mg-vit E 90 mg-zinc 40 1 tab PO BID 08/06/20 10/31/21 History mg-copper 1 mg-vrcuso-tlrkku capsule (PreserVision AREDS-2) docusate sodium 100 mg capsule 200 mg PO BEDTIME 08/09/21 10/31/21 History artifi.tears(hypromellose)(PF) 0.3 1 drp OPHTHALMIC (EYE) TID 09/03/21 10/31/21 History % eye drops warfarin 2.5 mg tablet 2.5 mg PO SUMOTUTHFRSA 09/26/21 10/31/21 History calcium 750 mg PO DAILY 10/09/21 10/31/21 History furosemide 40 mg tablet (Lasix) 60 mg PO BID@0800,1400 10/21/21 10/31/21 History rosuvastatin 10 mg tablet 10 mg PO BEDTIME 10/21/21 10/31/21 History trazodone 50 mg tablet 50 mg PO BEDTIME PRN 10/21/21 10/31/21 History warfarin 2.5 mg tablet 1.25 mg PO WE 10/21/21 10/31/21 History Allergies Allergy/AdvReac Type Severity Reaction Status Date / Time TAPE,PAPER Allergy Unknown RASH TO Uncoded 10/31/21 10:32 PAPER TAPE Exam Vital signs: Vital Signs Temp 97.2 F 09/30/21 14:37 Pulse 77 09/30/21 14:37 Resp 18 09/30/21 14:37 BP 117/58 L 09/30/21 14:37 Pulse Ox 98 09/30/21 14:37 Weight 71.4 kg BMI result Body Mass Index 23.2 - Constitutional Present: mild distress - Routine HEENT Exam Head: Present: normal inspection Eye: Present: normal appearance ENT: Present: mucous membranes moist - Routine Neck Exam Present: full ROM - Routine Respiratory Exam Present: CTAB - Routine Cardiovascular Exam Cardiovascular: Present: RRR, S1, S2, S3 - Routine Abdominal Exam Present: soft, nontender - Routine Rectal Exam Patient deferred: digital exam - Routine Extremities Exam Present: nontender - Routine Back/Spine/Pelvis Exam Back/Spine: Present: paraspinal tenderness - Routine Skin Exam Present: intact - Routine Neurological Exam Present: alert, oriented X3 - Detailed Neurological Exam: Coma Scale Eye Opening: Spontaneous (4) - Routine Psychiatric Exam Present: normal affect Data - Labs CBC & Chem 7: 10/29/21 13:45 10/29/21 13:45 Assessment and Plan Patient Active problem list reviewed?: Yes (1) Amyloidosis Status: Inactive Assessment and plan: This is a pleasant 70-year-old lady, here for a follow-up visit. She had a renal biopsy on December 24 which revealed AA type Amyloidosis. I proceeded with a bone marrow exam, for further staging. This came back negative for involvement with amyloid. I proceeded with further valuation and staging. I requested an LDH, SIEP and serum free light chain ratio. LDH is 246. SIEP: IgG 1737 IgA 539 IgM 206 IMFIXS INTERP No abnormal bands are present on immunofixation. B-2 MICROGLOB 10.40 FREE KAPPA, SER 155.0 FREE LAMBDA SER 91.2 FREE K/L RATIO 1.70. HLA-B27 Positive Jan 25. Repeat free light chain ratio from 08/02/2018, revealed: FREE KAPPA, SER 60.9 FREE LAMBDA SER 32.6 FREE K/L RATIO 1.87 My concern was if she has cardiac involvement by amyloid. I checked an echocardiogram. This revealed moderate lady dilated LV, with severe LV systolic dysfunction, with RWMA in LAD territory, c/w ischemic cardiomyopathy. The LA is severely dilated. Prosthetic mitral valve appears to be functioning normally. Mild pulmonary hypertension. No pericardial effusion. Unfortunately she is not able to get an MRI of the heart due to the hardware, that she has. I checked NT proBNP(7622). She was sent to Dr. Kaelyn Deleon, in [place], he is the amyloid guru. He mentioned and that her renal biopsy was sent to [facility], he reviewed the molecular studies. He did confirm the diagnosis. He did feel that her joints are involved in the inflammatory process, that likley triggered AA Amyloid. He checked the serological studies as well. She was started on treatment for the amyloid, Tocilizumab, an IL-6 antibody. She has tolerated it very well. She has had 23 cycles. It did work. She felt better, overall. PLAN: She has had 19 months of therapy with tocilizumab. I felt she had a maximum benefit from the drug. I will hold off on further administration Tocilizumab. I would not like to expose her to long-term toxicity. Will continue to monitor her SIEP. Will check it in 6 months time. (2) Chronic kidney disease (CKD) stage G3a/A3, moderately decreased glomerular filtration rate (GFR) between 45-59 mL/min/1.73 square meter and albuminuria cr eatinine ratio greater than 300 mg/g Status: Inactive Assessment and plan: 2) 71-year-old lady with history of Anemia of Chronic Kidney Disease. Stage IV. She had a renal biopsy. 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 Repeat renal biopsy from mid December 2017, raised concern for AA amyloidosis. Her creatinine level fluctuates, depending upon her hydration status and diuresis. Her kidney function is better, now. Her creatinine from today is 2.3. She follows with Dr. Estrella for CHF. Serum light chain ratio was 1.85 on November 14. SIEP from March 13 revealed: IgG 1107 IgA 560 H IgM 129 IMFIXS INTERP No abnormal bands are present on immunofixation. FREE KAPPA, SER 114.5 FREE LAMBDA SER 90.1 FREE K/L RATIO 1.27 She was recently in house for left upper extremity cellulitis. Question of gout. She was treated with IV antibiotics and a steroid course. She feels quite fatigued today. Her hemoglobin is 9.8. Creatinine: 3.0 on 10/24, creatinine clearance 22.5, ferritin 228. PLAN: She will receive the Procrit, today. I will follow-up on her iron studies, SIEP and light chain ratio. She will return monthly for labs and for possible Procrit therapy. She will return in 6 months for a follow-up visit. Thank you, (3) Right knee pain Status: Acute (4) Chronic kidney disease (CKD) stage G4/A1, severely decreased glomerular filtration rate (GFR) between 15-29 mL/min/1.73 square meter and albuminuria creatinine ratio less than 30 mg/g Status: Inactive (5) Breast cancer Status: Acute Assessment and plan: 71 year-old lady, with history of Mucinous Carcinoma of the left Breast, 1.8 cm. ER positive MI negative HER-2/tc negative sentinel node negative, stage pT 1C, N0 (i negative.) She was on Tamoxifen in October 2008 to April of 2012. She was then switched to Letrozole end of May 2012. She has completed 5 years of therapy, in the summer of 2016. She is clinically holding stable in that regard. No evidence of recurrence. She had a mammogram in January, which was negative. She had her mammogram on 04/26: Probably benign. Six-month follow-up mammogram was recommended. She had a bone density in November, which revealed osteopenia with a T-score of - 1.4. PLAN: She is due for a repeat mammogram of the right breast, now. She will return in 6 months for a follow-up visit. Thank you, CC: Dr. Jin. - Time Spent With Patient Time Spent with Patient (in minutes): 30
[2021-10-29 13:41] VITALS: BP 138/61; PULSE 78; RESP 16; TEMP 36.3; O2SAT 98
[2021-10-29 13:51] LABS: MANUAL DIFF FLAG NO
[2021-10-29 13:59] LABS: Eosinophils Percent Auto 0.2 % (0-4); Hematocrit 32.9 % (37.0-47.0); Hemoglobin 9.8 g/dl (12.0-16.0); Imm Gran Abs Auto 0.07 X10*3/uL (0.00-0.03); Imm Gran Pct Auto 0.7 % (0.0-0.4); Lymphocytes Absolute Auto 0.6 X10*3/uL (1.2-4.9); Lymphocytes Percent Auto 5.5 % (20-40); Mean Corpuscular HGB Conc 29.8 g/dl (31.0-35.0); Mean Corpuscular Hemoglobin 27.8 pg (27.0-33.0); Mean Corpuscular Volume 93.5 fL (80.0-98.0); Mean Platelet Volume 11.5 fL (9.4-12.3); Monocytes Absolute Auto 0.8 X10*3/uL (0.1-1.2); Monocytes Percent Auto 7.6 % (2-11); Neutrophils Absolute Auto 9.2 x10*3/uL (2.0-8.3); Platelet Count 184 X10*3/uL (160-400); Red Blood Count 3.52 X10*6/uL (4.20-5.50); Red Cell Distribution Width 18.3 % (11.0-16.0); White Blood Count 10.7 X10*3/uL (4.8-10.8)
[2021-10-29] MEDS: Epoetin Alfa 40,000 UNIT/ML VIAL 40000 UNIT SUBCUT (14:14)
[2021-10-29 14:20] LABS: Alanine Aminotransferase 57 U/L (0-31); Alkaline Phosphatase 212 U/L (39-117); Anion Gap 15 (12-20); Aspartate Amino Transferase 37 U/L (5-31); Bilirubin Total 0.7 mg/dL (0.0-1.0); Calcium 8.8 mg/dL (8.4-10.2); Carbon Dioxide 29 mmol/L (22-29); Chloride 105 mmol/L (96-108); Creatinine Clr Calc Pharmacy 22.4; Estimated Glomerular Filt Rate 20; Glucose Random 106 mg/dL (60-115); Potassium 5.1 mmol/L (3.3-5.1); Sodium 144 mmol/L (135-145); Total Protein 6.9 g/dL (6.5-8.0)
[2021-10-29 14:31] LABS: Blood Urea Nitrogen 123 mg/dL (9-16)
--- NOTE | 2021-10-29 14:35 | MHC.HEMONC ---
Pt here for Hem follow up with Dr Sykes and procrit injection. Labs drawn by housing installer-specimen to lab. Dr Sykes into see pt. Left hand edematous-pt states she is being treated for cellulitis H& H 9.8/32.9 Platelets 184 Procrit given as ordered in right arm-tolerated well. Follow up appointment scheduled. Discharge packet given.
[2021-11-12 13:51] VITALS: BMI 20.5
[2021-11-12 13:54] VITALS: BP 121/57; PULSE 75; RESP 18; TEMP 36.5; O2SAT 100
[2021-11-12 14:07] LABS: MANUAL DIFF FLAG NO
[2021-11-12 14:12] LABS: Basophils Percent Auto 0.2 % (0-2); Eosinophils Absolute Auto 0.1 X10*3/uL (0.0-0.4); Eosinophils Percent Auto 1.2 % (0-4); Hematocrit 30.6 % (37.0-47.0); Hemoglobin 9.2 g/dl (12.0-16.0); Imm Gran Abs Auto 0.02 X10*3/uL (0.00-0.03); Imm Gran Pct Auto 0.4 % (0.0-0.4); Lymphocytes Absolute Auto 0.4 X10*3/uL (1.2-4.9); Lymphocytes Percent Auto 6.8 % (20-40); Mean Corpuscular HGB Conc 30.1 g/dl (31.0-35.0); Mean Corpuscular Hemoglobin 28.3 pg (27.0-33.0); Mean Corpuscular Volume 94.2 fL (80.0-98.0); Mean Platelet Volume 11.2 fL (9.4-12.3); Monocytes Absolute Auto 0.7 X10*3/uL (0.1-1.2); Monocytes Percent Auto 11.6 % (2-11); Neutrophils Absolute Auto 4.6 x10*3/uL (2.0-8.3); Neutrophils Percent Auto 79.8 % (45-73); Red Blood Count 3.25 X10*6/uL (4.20-5.50); Red Cell Distribution Width 19.6 % (11.0-16.0); White Blood Count 5.7 X10*3/uL (4.8-10.8)
[2021-11-12 14:13] LABS: Platelet Count 85 X10*3/uL (160-400)
[2021-11-12] MEDS: Epoetin Alfa 40,000 UNIT/ML VIAL 40000 UNIT SUBCUT (14:29)
[2021-11-12 14:36] LABS: Alanine Aminotransferase 41 U/L (0-31); Albumin Level 2.9 g/dL (3.5-5.0); Alkaline Phosphatase 176 U/L (39-117); Anion Gap 14 (12-20); Aspartate Amino Transferase 27 U/L (5-31); Bilirubin Total 0.4 mg/dL (0.0-1.0); Blood Urea Nitrogen 89 mg/dL (9-16); Calcium 8.3 mg/dL (8.4-10.2); Carbon Dioxide 27 mmol/L (22-29); Chloride 104 mmol/L (96-108); Creatinine Clr Calc Pharmacy 20.4; Estimated Glomerular Filt Rate 19; Glucose Random 88 mg/dL (60-115); Potassium 4.6 mmol/L (3.3-5.1); Sodium 140 mmol/L (135-145); Total Protein 6.3 g/dL (6.5-8.0)
--- NOTE | 2021-11-12 16:28 | MHC.HEMONC ---
Patient present for Q2 week Procrit injection. Medication administered in [place]. Patient brought to the main entrance of the hospital by this RN. Next injection scheduled for 11/26/21.
--- NOTE | 2021-11-15 15:28 | MHC.HEMONC ---
Call from [place] to report that [facility] did not have her Iron prescription. This RN contacted [facility] on [facility] in [place] at and they reported that the script had not come over to their system. Dr Sykes sent over new script to pharmacy. Sada called back and informed to give [facility] some time to fill the script before going back over.
[2021-12-02 13:55] LABS: MANUAL DIFF FLAG NO
[2021-12-02 14:00] LABS: Basophils Percent Auto 0.3 % (0-2); Eosinophils Absolute Auto 0.1 X10*3/uL (0.0-0.4); Eosinophils Percent Auto 0.7 % (0-4); Hematocrit 32.8 % (37.0-47.0); Hemoglobin 9.5 g/dl (12.0-16.0); Imm Gran Abs Auto 0.03 X10*3/uL (0.00-0.03); Imm Gran Pct Auto 0.4 % (0.0-0.4); Lymphocytes Absolute Auto 0.5 X10*3/uL (1.2-4.9); Lymphocytes Percent Auto 6.7 % (20-40); Mean Corpuscular Hemoglobin 27.8 pg (27.0-33.0); Mean Corpuscular Volume 95.9 fL (80.0-98.0); Mean Platelet Volume 11.7 fL (9.4-12.3); Monocytes Absolute Auto 0.7 X10*3/uL (0.1-1.2); Neutrophils Absolute Auto 5.9 x10*3/uL (2.0-8.3); Neutrophils Percent Auto 81.9 % (45-73); Platelet Count 198 X10*3/uL (160-400); Red Blood Count 3.42 X10*6/uL (4.20-5.50); Red Cell Distribution Width 19.2 % (11.0-16.0); White Blood Count 7.2 X10*3/uL (4.8-10.8)
[2021-12-02 14:21] LABS: Alanine Aminotransferase 32 U/L (0-31); Albumin Level 3.1 g/dL (3.5-5.0); Alkaline Phosphatase 196 U/L (39-117); Anion Gap 14 (12-20); Aspartate Amino Transferase 31 U/L (5-31); Bilirubin Total 0.6 mg/dL (0.0-1.0); Blood Urea Nitrogen 69 mg/dL (9-16); Calcium 8.6 mg/dL (8.4-10.2); Carbon Dioxide 30 mmol/L (22-29); Chloride 104 mmol/L (96-108); Creatinine Clr Calc Pharmacy 17.9; Estimated Glomerular Filt Rate 16; Glucose Random 101 mg/dL (60-115); Potassium 5.1 mmol/L (3.3-5.1); Sodium 143 mmol/L (135-145); Total Protein 6.7 g/dL (6.5-8.0)
[2021-12-02 14:31] VITALS: BP 119/56; PULSE 82; RESP 18; TEMP 36.8; O2SAT 97
[2021-12-02] MEDS: Epoetin Alfa 40,000 UNIT/ML VIAL 40000 UNIT SUBCUT (14:35)
--- NOTE | 2021-12-02 16:31 | MHC.HEMONC ---
Procrit given as ordered. Hgb 9.5
[2021-12-09 13:58] LABS: MANUAL DIFF FLAG NO
[2021-12-09 14:16] LABS: Basophils Percent Auto 0.3 % (0-2); Eosinophils Absolute Auto 0.1 X10*3/uL (0.0-0.4); Eosinophils Percent Auto 1.2 % (0-4); Hematocrit 31.1 % (37.0-47.0); Hemoglobin 9.1 g/dl (12.0-16.0); Imm Gran Abs Auto 0.02 X10*3/uL (0.00-0.03); Imm Gran Pct Auto 0.3 % (0.0-0.4); Lymphocytes Absolute Auto 0.5 X10*3/uL (1.2-4.9); Mean Corpuscular HGB Conc 29.3 g/dl (31.0-35.0); Mean Corpuscular Hemoglobin 28.2 pg (27.0-33.0); Mean Corpuscular Volume 96.3 fL (80.0-98.0); Mean Platelet Volume 12.1 fL (9.4-12.3); Monocytes Absolute Auto 0.7 X10*3/uL (0.1-1.2); Monocytes Percent Auto 9.7 % (2-11); Neutrophils Absolute Auto 5.4 x10*3/uL (2.0-8.3); Neutrophils Percent Auto 81.5 % (45-73); Platelet Count 160 X10*3/uL (160-400); Red Blood Count 3.23 X10*6/uL (4.20-5.50); Red Cell Distribution Width 20.4 % (11.0-16.0); White Blood Count 6.7 X10*3/uL (4.8-10.8)
[2021-12-09 14:23] LABS: Alanine Aminotransferase 29 U/L (0-31); Alkaline Phosphatase 188 U/L (39-117); Anion Gap 15 (12-20); Aspartate Amino Transferase 25 U/L (5-31); Bilirubin Total 0.5 mg/dL (0.0-1.0); Blood Urea Nitrogen 75 mg/dL (9-16); Calcium 8.3 mg/dL (8.4-10.2); Carbon Dioxide 27 mmol/L (22-29); Chloride 104 mmol/L (96-108); Creatinine Clr Calc Pharmacy 18.4; Estimated Glomerular Filt Rate 17; Glucose Random 89 mg/dL (60-115); Potassium 4.9 mmol/L (3.3-5.1); Sodium 141 mmol/L (135-145); Total Protein 6.5 g/dL (6.5-8.0)
[2021-12-09 14:31] VITALS: BP 148/66; PULSE 81; RESP 18; TEMP 36.4; O2SAT 97
[2021-12-09] MEDS: Epoetin Alfa 40,000 UNIT/ML VIAL 40000 UNIT SUBCUT (14:34)
--- NOTE | 2021-12-09 14:40 | MHC.HEMONC ---
Pt here for procrit injection. Labs drawn by concrete finishing machine operator-specimen to lab. H & H 9.12/09.1 Procrit SC given in right arm-tolerated well. Discharge packet given with follow up appointment
[2021-12-24 14:13] LABS: MANUAL DIFF FLAG NO
[2021-12-24 14:17] LABS: Basophils Percent Auto 0.4 % (0-2); Eosinophils Absolute Auto 0.1 X10*3/uL (0.0-0.4); Eosinophils Percent Auto 2.1 % (0-4); Hematocrit 32.1 % (37.0-47.0); Hemoglobin 9.6 g/dl (12.0-16.0); Imm Gran Abs Auto 0.02 X10*3/uL (0.00-0.03); Imm Gran Pct Auto 0.4 % (0.0-0.4); Lymphocytes Absolute Auto 0.4 X10*3/uL (1.2-4.9); Lymphocytes Percent Auto 7.1 % (20-40); Mean Corpuscular HGB Conc 29.9 g/dl (31.0-35.0); Mean Corpuscular Hemoglobin 28.9 pg (27.0-33.0); Mean Corpuscular Volume 96.7 fL (80.0-98.0); Mean Platelet Volume 11.3 fL (9.4-12.3); Monocytes Absolute Auto 0.6 X10*3/uL (0.1-1.2); Monocytes Percent Auto 10.8 % (2-11); Neutrophils Absolute Auto 4.1 x10*3/uL (2.0-8.3); Neutrophils Percent Auto 79.2 % (45-73); Platelet Count 100 X10*3/uL (160-400); Red Blood Count 3.32 X10*6/uL (4.20-5.50); Red Cell Distribution Width 19.5 % (11.0-16.0); White Blood Count 5.2 X10*3/uL (4.8-10.8)
[2021-12-24 14:25] VITALS: BP 102/53; PULSE 71; RESP 20; TEMP 36.8; O2SAT 96
[2021-12-24] MEDS: Epoetin Alfa 40,000 UNIT/ML VIAL 40000 UNIT SUBCUT (14:39)
[2021-12-24 14:53] LABS: Alanine Aminotransferase 26 U/L (0-31); Alkaline Phosphatase 157 U/L (39-117); Anion Gap 14 (12-20); Aspartate Amino Transferase 25 U/L (5-31); Bilirubin Total 0.5 mg/dL (0.0-1.0); Blood Urea Nitrogen 86 mg/dL (9-16); Calcium 8.4 mg/dL (8.4-10.2); Carbon Dioxide 29 mmol/L (22-29); Chloride 103 mmol/L (96-108); Creatinine Clr Calc Pharmacy 17.7; Estimated Glomerular Filt Rate 16; Ferritin 143 ng/mL (10-250); Glucose Random 86 mg/dL (60-115); Iron 28 mcg/dL (30-160); Percent Iron Saturation 12 % (15-50); Potassium 4.7 mmol/L (3.3-5.1); Sodium 141 mmol/L (135-145); Total Protein 6.5 g/dL (6.5-8.0)
[2021-12-24 15:03] LABS: Total Iron Binding Capacity 232 mcg/dL (228-428); Unsaturated Iron Binding 204 ug/dL
--- NOTE | 2021-12-24 15:51 | MHC.HEMONC ---
Pt arrived for her sched [id number] procrit injection via w/c, VSS, reported feeling baseline amount of fatigue. Pt had labs drawn/reviewed, her Hgb resulted at 9.6 today, Dr. Sykes was updated and ordered Procrit. Nurse admin Procrit 40,000 units SC to pt's RUE, which she tolerated well. Pt asked nurse to listen to her lungs and he heard very faint low-pitched wheezes in bilat bases, and pt was concerned whether she has bronchitis. Nurse asked pt if she had any symptoms and pt denied any fevers, coughs, sputum production, or SOB, but nurse asked her to report any changes. Pt received d/c packet w/ next Procrit injection booked in 2 weeks.
[2022-01-07 14:44] LABS: MANUAL DIFF FLAG NO
[2022-01-07 14:57] LABS: Basophils Percent Auto 0.2 % (0-2); Eosinophils Absolute Auto 0.1 X10*3/uL (0.0-0.4); Hematocrit 33.6 % (37.0-47.0); Hemoglobin 9.8 g/dl (12.0-16.0); Imm Gran Abs Auto 0.04 X10*3/uL (0.00-0.03); Imm Gran Pct Auto 0.7 % (0.0-0.4); Lymphocytes Absolute Auto 0.5 X10*3/uL (1.2-4.9); Lymphocytes Percent Auto 8.2 % (20-40); Mean Corpuscular HGB Conc 29.2 g/dl (31.0-35.0); Mean Corpuscular Hemoglobin 28.5 pg (27.0-33.0); Mean Corpuscular Volume 97.7 fL (80.0-98.0); Mean Platelet Volume 12.9 fL (9.4-12.3); Monocytes Absolute Auto 0.5 X10*3/uL (0.1-1.2); Monocytes Percent Auto 9.7 % (2-11); Neutrophils Absolute Auto 4.4 x10*3/uL (2.0-8.3); Neutrophils Percent Auto 79.2 % (45-73); Platelet Count 97 X10*3/uL (160-400); Red Blood Count 3.44 X10*6/uL (4.20-5.50); Red Cell Distribution Width 18.9 % (11.0-16.0); White Blood Count 5.6 X10*3/uL (4.8-10.8)
[2022-01-07 15:21] LABS: Alanine Aminotransferase 26 U/L (0-31); Alkaline Phosphatase 138 U/L (39-117); Anion Gap 14 (12-20); Aspartate Amino Transferase 24 U/L (5-31); Bilirubin Total 0.6 mg/dL (0.0-1.0); Blood Urea Nitrogen 69 mg/dL (9-16); Calcium 8.4 mg/dL (8.4-10.2); Carbon Dioxide 26 mmol/L (22-29); Chloride 102 mmol/L (96-108); Creatinine Clr Calc Pharmacy 19.4; Estimated Glomerular Filt Rate 17; Glucose Random 114 mg/dL (60-115); Potassium 4.8 mmol/L (3.3-5.1); Sodium 137 mmol/L (135-145); Total Protein 6.6 g/dL (6.5-8.0)
[2022-01-07 15:24] VITALS: BP 125/61; PULSE 80; RESP 18; TEMP 36.4; O2SAT 96; BMI 21.7
[2022-01-07] MEDS: Epoetin Alfa 40,000 UNIT/ML VIAL 40000 UNIT SUBCUT (15:29)
--- NOTE | 2022-01-07 15:46 | MHC.HEMONC ---
Pt here for lab draw and procrit injection. Labs drawn by calculus tutor-specimen to lab. Vital signs as noted. H & H 9.8/33.6. Procrit SC given in right arm-tolerated well. Follow up appointment scheduled for 2 weeks. Discharge packet given.
[2022-01-21 13:35] LABS: MANUAL DIFF FLAG NO
[2022-01-21 13:42] LABS: Basophils Percent Auto 0.7 % (0-2); Eosinophils Absolute Auto 0.1 X10*3/uL (0.0-0.4); Eosinophils Percent Auto 1.8 % (0-4); Hematocrit 34.9 % (37.0-47.0); Hemoglobin 10.3 g/dl (12.0-16.0); Imm Gran Abs Auto 0.02 X10*3/uL (0.00-0.03); Imm Gran Pct Auto 0.4 % (0.0-0.4); Lymphocytes Absolute Auto 0.4 X10*3/uL (1.2-4.9); Lymphocytes Percent Auto 7.9 % (20-40); Mean Corpuscular HGB Conc 29.5 g/dl (31.0-35.0); Mean Corpuscular Hemoglobin 28.8 pg (27.0-33.0); Mean Corpuscular Volume 97.5 fL (80.0-98.0); Mean Platelet Volume 11.4 fL (9.4-12.3); Monocytes Absolute Auto 0.5 X10*3/uL (0.1-1.2); Monocytes Percent Auto 10.3 % (2-11); Neutrophils Absolute Auto 3.6 x10*3/uL (2.0-8.3); Neutrophils Percent Auto 78.9 % (45-73); Red Blood Count 3.58 X10*6/uL (4.20-5.50); Red Cell Distribution Width 18.3 % (11.0-16.0); White Blood Count 4.6 X10*3/uL (4.8-10.8)
[2022-01-21 13:54] LABS: Platelet Count 99 X10*3/uL (160-400)
[2022-01-21 14:07] LABS: Alanine Aminotransferase 33 U/L (0-31); Alkaline Phosphatase 160 U/L (39-117); Anion Gap 15 (12-20); Aspartate Amino Transferase 29 U/L (5-31); Bilirubin Total 0.5 mg/dL (0.0-1.0); Blood Urea Nitrogen 90 mg/dL (9-16); Calcium 8.4 mg/dL (8.4-10.2); Carbon Dioxide 25 mmol/L (22-29); Chloride 104 mmol/L (96-108); Creatinine Clr Calc Pharmacy 19.6; Estimated Glomerular Filt Rate 17; Glucose Random 85 mg/dL (60-115); Sodium 139 mmol/L (135-145); Total Protein 6.7 g/dL (6.5-8.0)
[2022-01-21 14:13] VITALS: BP 114/57; PULSE 77; RESP 17; TEMP 36.6; O2SAT 96
[2022-01-21] MEDS: Epoetin Alfa 40,000 UNIT/ML VIAL 40000 UNIT SUBCUT (14:16)
[2022-01-21 14:22] LABS: Ferritin 147 ng/mL (10-250)
--- NOTE | 2022-01-21 16:55 | MHC.HEMONC ---
Pt presented for sched [id number] procrit injection, in good spirits, VSS, labs drawn/reviewed. Pt's LS were CTA. Pt's Hgb resulted 10.3, so Dr. Sykes ordered procrit. Nurse admin procrit 40,000 units SC a/o to pt's RUE, which she tolerated well. Nurse provided d/c packet to pt w/ her next procrit injection scheduled for 2 weeks, on 02/04/22.
[2022-02-04 13:30] LABS: MANUAL DIFF FLAG NO
[2022-02-04 13:34] LABS: Basophils Percent Auto 0.3 % (0-2); Eosinophils Absolute Auto 0.1 X10*3/uL (0.0-0.4); Eosinophils Percent Auto 1.8 % (0-4); Hematocrit 37.8 % (37.0-47.0); Hemoglobin 11.1 g/dl (12.0-16.0); Imm Gran Abs Auto 0.03 X10*3/uL (0.00-0.03); Imm Gran Pct Auto 0.5 % (0.0-0.4); Lymphocytes Absolute Auto 0.4 X10*3/uL (1.2-4.9); Mean Corpuscular HGB Conc 29.4 g/dl (31.0-35.0); Mean Corpuscular Hemoglobin 29.1 pg (27.0-33.0); Mean Platelet Volume 12.2 fL (9.4-12.3); Monocytes Absolute Auto 0.6 X10*3/uL (0.1-1.2); Monocytes Percent Auto 9.5 % (2-11); Neutrophils Absolute Auto 4.9 x10*3/uL (2.0-8.3); Neutrophils Percent Auto 81.9 % (45-73); Platelet Count 110 X10*3/uL (160-400); Red Blood Count 3.82 X10*6/uL (4.20-5.50); Red Cell Distribution Width 18.7 % (11.0-16.0)
--- NOTE | 2022-02-04 13:52 | MHC.HEMONC ---
Pt was here for [id number] procrit injection, arrived via w/c, reports feeling about average, usual fatigue, aches and pains in joints. Pt's labs were drawn, reviewed, Hgb resulted at 11.1 today, so no Procrit was required, per protocol. Pt requested nurse listen to her lungs and both lungs were clear to auscultation. Pt was d/c'd w/ packet, including her lab results and next two procrit injection appts, booked on 02/18/22 and 03/04/22. Nurse escorted pt to lobby in w/c.
[2022-02-04 14:08] LABS: Alanine Aminotransferase 38 U/L (0-31); Albumin Level 3.1 g/dL (3.5-5.0); Alkaline Phosphatase 161 U/L (39-117); Anion Gap 14 (12-20); Aspartate Amino Transferase 30 U/L (5-31); Bilirubin Total 0.6 mg/dL (0.0-1.0); Blood Urea Nitrogen 80 mg/dL (9-16); Calcium 8.4 mg/dL (8.4-10.2); Carbon Dioxide 26 mmol/L (22-29); Chloride 106 mmol/L (96-108); Creatinine Clr Calc Pharmacy 20.4; Estimated Glomerular Filt Rate 18; Glucose Random 86 mg/dL (60-115); Potassium 4.8 mmol/L (3.3-5.1); Sodium 141 mmol/L (135-145); Total Protein 6.8 g/dL (6.5-8.0)
[2022-02-18 14:00] LABS: MANUAL DIFF FLAG NO
[2022-02-18 14:16] LABS: Basophils Percent Auto 0.2 % (0-2); Eosinophils Absolute Auto 0.1 X10*3/uL (0.0-0.4); Eosinophils Percent Auto 1.4 % (0-4); Hemoglobin 10.4 g/dl (12.0-16.0); Imm Gran Abs Auto 0.02 X10*3/uL (0.00-0.03); Imm Gran Pct Auto 0.4 % (0.0-0.4); Lymphocytes Absolute Auto 0.4 X10*3/uL (1.2-4.9); Lymphocytes Percent Auto 7.6 % (20-40); Mean Corpuscular HGB Conc 30.6 g/dl (31.0-35.0); Mean Corpuscular Hemoglobin 29.5 pg (27.0-33.0); Mean Corpuscular Volume 96.6 fL (80.0-98.0); Monocytes Absolute Auto 0.5 X10*3/uL (0.1-1.2); Monocytes Percent Auto 8.8 % (2-11); Neutrophils Absolute Auto 4.2 x10*3/uL (2.0-8.3); Neutrophils Percent Auto 81.6 % (45-73); Red Blood Count 3.52 X10*6/uL (4.20-5.50); Red Cell Distribution Width 17.9 % (11.0-16.0); White Blood Count 5.1 X10*3/uL (4.8-10.8)
[2022-02-18 14:17] LABS: Platelet Count 78 X10*3/uL (160-400)
[2022-02-18 14:35] VITALS: BP 123/62; PULSE 60; RESP 18; TEMP 36.6; O2SAT 98
[2022-02-18] MEDS: Epoetin Alfa 40,000 UNIT/ML VIAL 40000 UNIT SUBCUT (14:41)
[2022-02-18 14:56] LABS: Alanine Aminotransferase 41 U/L (0-31); Alkaline Phosphatase 190 U/L (39-117); Anion Gap 16 (12-20); Aspartate Amino Transferase 35 U/L (5-31); Bilirubin Total 0.5 mg/dL (0.0-1.0); Blood Urea Nitrogen 109 mg/dL (9-16); Calcium 8.5 mg/dL (8.4-10.2); Carbon Dioxide 22 mmol/L (22-29); Chloride 106 mmol/L (96-108); Creatinine Clr Calc Pharmacy 17.9; Estimated Glomerular Filt Rate 15; Glucose Random 87 mg/dL (60-115); Potassium 4.9 mmol/L (3.3-5.1); Sodium 139 mmol/L (135-145); Total Protein 6.5 g/dL (6.5-8.0)
--- NOTE | 2022-02-18 17:08 | MHC.HEMONC ---
Pt arrived via w/c for her [id number] procrit injection, VSS, labs drawn/reviewed, her Hgb resulted at 10.4. Pt said she felt well enough today. Nurse updated Dr. Sykes, who ordered Procrit 40,000 units. Nurse admin Procrit 40,000 units SC to pt's RUE, which she tolerated very well. Nurse listened to pt's lungs, found them CTA throughout. Pt received d/c packet w/ her next [id number] procrit injection booked on 03/04/22. Nurse escorted pt to lobby via w/c to wait for her ride.
[2022-03-04 14:00] LABS: MANUAL DIFF FLAG NO
[2022-03-04 14:02] LABS: Basophils Percent Auto 0.4 % (0-2); Eosinophils Absolute Auto 0.1 X10*3/uL (0.0-0.4); Eosinophils Percent Auto 1.4 % (0-4); Hematocrit 36.8 % (37.0-47.0); Imm Gran Abs Auto 0.02 X10*3/uL (0.00-0.03); Imm Gran Pct Auto 0.4 % (0.0-0.4); Lymphocytes Absolute Auto 0.4 X10*3/uL (1.2-4.9); Lymphocytes Percent Auto 7.4 % (20-40); Mean Corpuscular HGB Conc 29.9 g/dl (31.0-35.0); Mean Corpuscular Hemoglobin 28.6 pg (27.0-33.0); Mean Corpuscular Volume 95.6 fL (80.0-98.0); Mean Platelet Volume 11.8 fL (9.4-12.3); Monocytes Absolute Auto 0.5 X10*3/uL (0.1-1.2); Monocytes Percent Auto 9.9 % (2-11); Neutrophils Absolute Auto 4.1 x10*3/uL (2.0-8.3); Neutrophils Percent Auto 80.5 % (45-73); Red Blood Count 3.85 X10*6/uL (4.20-5.50); Red Cell Distribution Width 18.2 % (11.0-16.0); White Blood Count 5.1 X10*3/uL (4.8-10.8)
[2022-03-04 14:08] LABS: Platelet Count 97 X10*3/uL (160-400)
[2022-03-04 14:28] LABS: Alanine Aminotransferase 39 U/L (0-31); Alkaline Phosphatase 209 U/L (39-117); Anion Gap 15 (12-20); Aspartate Amino Transferase 35 U/L (5-31); Bilirubin Total 0.6 mg/dL (0.0-1.0); Blood Urea Nitrogen 88 mg/dL (9-16); Calcium 8.6 mg/dL (8.4-10.2); Carbon Dioxide 25 mmol/L (22-29); Chloride 104 mmol/L (96-108); Creatinine Clr Calc Pharmacy 19.5; Estimated Glomerular Filt Rate 17; Glucose Random 97 mg/dL (60-115); Potassium 5.1 mmol/L (3.3-5.1); Sodium 139 mmol/L (135-145); Total Protein 6.9 g/dL (6.5-8.0)
--- NOTE | 2022-03-04 17:01 | MHC.HEMONC ---
Pt came in for her scheduled [id number] procrit injection, in no apparent distress, reported feeling fine, labs were drawn/reviewed, her Hgb improved to 11.0 today, from 10.4 2 weeks earlier, when she received 40,[address] Sykes was informed and pt was updated that she need no procrit injection today. Nurse auscultated pt's lungs, per her request, and they were clear throughout. Pt was given d/c packet w/ her next procrit injection booked in 2 weeks, on 03/18/22. Nurse assisted pt to the lobby via w/c.
== END 2022-04-16 | disposition home or self-care (01) ==
LOC: HO.ONC 14:00
PROVIDERS: Internal Medicine; PCP Internal Medicine; Visit Provider Internal Medicine Medical Oncology
DX: I13.0 Hypertensive heart and chronic kidney disease with heart failure and stage 1 through stage 4 chronic kidney disease, or unspecified chronic kidney disease (principal); N18.4 Chronic kidney disease, stage 4 (severe); D63.1 Anemia in chronic kidney disease; I50.9 Heart failure, unspecified; M85.80 Other specified disorders of bone density and structure, unspecified site; I48.91 Unspecified atrial fibrillation; Z85.3 Personal history of malignant neoplasm of breast; Z79.01 Long term (current) use of anticoagulants; Z79.899 Other long term (current) drug therapy
CPT/HCPCS: 36415; 80048; 80053; 81001; 82728; 82784; 83520; 83540; 83880; 85025; 85610; 86334; 96372; 96401; 99211; 99214; J0885; J1100

== ENCOUNTER 2022-03-10 12:13 | Outpatient (REF) | payer OTHER, SELFPAY ==
[2022-03-10 14:43] LABS: Appearance Urine HAZY; Color Urine YELLOW; Glucose Urine UA NEG (NEG); Leukocyte Esterase Urine 2+ (NEG); Nitrite Urine NEG (NEG); PH 5.5 (5.0-8.0); Urine Blood 2+ (NEG); Urine Ketones NEG (NEG); Urine Protein 3+ MG/DL (NEG-TRACE)
[2022-03-10 14:50] LABS: Basophils Percent Auto 0.4 % (0-2); Eosinophils Absolute Auto 0.1 X10*3/uL (0.0-0.4); Hematocrit 35.9 % (37.0-47.0); Hemoglobin 10.6 g/dl (12.0-16.0); Imm Gran Abs Auto 0.01 X10*3/uL (0.00-0.03); Imm Gran Pct Auto 0.2 % (0.0-0.4); Immature Retic Fraction 5.8 % (3.0-15.9); Lymphocytes Absolute Auto 0.5 X10*3/uL (1.2-4.9); Lymphocytes Percent Auto 9.1 % (20-40); MANUAL DIFF FLAG SCAN; Mean Corpuscular HGB Conc 29.5 g/dl (31.0-35.0); Mean Corpuscular Hemoglobin 28.7 pg (27.0-33.0); Mean Corpuscular Volume 97.3 fL (80.0-98.0); Mean Platelet Volume 13.2 fL (9.4-12.3); Monocytes Absolute Auto 0.4 X10*3/uL (0.1-1.2); Monocytes Percent Auto 8.3 % (2-11); Neutrophils Absolute Auto 4.1 x10*3/uL (2.0-8.3); Platelet Count 105 X10*3/uL (160-400); Red Blood Count 3.69 X10*6/uL (4.20-5.50); Red Cell Distribution Width 17.7 % (11.0-16.0); Retic HGB Equivalent 32.4 pg (30.0-35.0); Reticulocyte Percent 0.7 % (0.5-1.8); Reticulocytes Absolute 0.027 X10*6/uL (0.026-0.095); SCAN SMEAR FLAG 1; White Blood Count 5.1 X10*3/uL (4.8-10.8)
[2022-03-10 14:51] LABS: Bacteria Urine TRACE /LPF
[2022-03-10 14:52] LABS: Renal Epithelial Cells Urine 1+ /LPF; Squamous Epithelial Cell Urine 1+ /LPF
[2022-03-10 14:53] LABS: Amorphous Sediment Urine TRACE /LPF
[2022-03-10 15:00] LABS: Estimated Average Glucose 103 mg/dL; Hemoglobin A1c % 5.2 %
[2022-03-10 15:06] LABS: SLIDE REVIEW VERIFIED
[2022-03-10 15:09] LABS: B Type Natriuretic Peptide 1557 pg/mL (<100)
[2022-03-10 15:14] LABS: Alanine Aminotransferase 34 U/L (0-31); Albumin Level 2.9 g/dL (3.5-5.0); Alkaline Phosphatase 204 U/L (39-117); Anion Gap 15 (12-20); Aspartate Amino Transferase 30 U/L (5-31); Bilirubin Total 0.7 mg/dL (0.0-1.0); Blood Urea Nitrogen 81 mg/dL (9-16); Calcium 8.8 mg/dL (8.4-10.2); Carbon Dioxide 24 mmol/L (22-29); Chloride 105 mmol/L (96-108); Estimated Glomerular Filt Rate 15; Glucose Random 93 mg/dL (60-115); Iron 45 mcg/dL (30-160); Percent Iron Saturation 21 % (15-50); Potassium 5.7 mmol/L (3.3-5.1); Sodium 138 mmol/L (135-145); Total Iron Binding Capacity 210 mcg/dL (228-428); Total Protein 6.7 g/dL (6.5-8.0); Unsaturated Iron Binding 165 ug/dL
[2022-03-10 15:34] LABS: Ferritin 264 ng/mL (10-250); Free T4 (Free Thyroxine) 1.13 ng/dL (0.71-1.85); Thyroid Stimulating Hormone 5.86 uIU/mL (0.32-4.0)
[2022-03-10 15:52] LABS: Folate 9.7 ng/mL (> or = 4.0); Vitamin B12 889 pg/mL (200-900)
== END 2022-03-10 12:14 | disposition home or self-care (01) ==
LOC: HO.LABR 12:13
PROVIDERS: Absent Provider Internal Medicine; PCP Internal Medicine; Visit Provider Internal Medicine
DX: I50.22 Chronic systolic (congestive) heart failure (principal); E78.00 Pure hypercholesterolemia, unspecified
CPT/HCPCS: 36415; 80053; 81001; 82607; 82728; 82746; 83036; 83540; 83880; 84439; 84443; 85025; 85045; Q3014

== ENCOUNTER 2022-03-11 12:06 | Outpatient (REF) | payer OTHER, SELFPAY ==
[2022-03-11 12:49] LABS: Hemoglobin 11.1 g/dl (12.0-16.0); Lymphocytes Absolute Auto 0.5 X10*3/uL (1.2-4.9); Monocytes Absolute Auto 0.4 X10*3/uL (0.1-1.2); SCAN SMEAR FLAG 1
[2022-03-11 12:50] LABS: Basophils Percent Auto 0.2 % (0-2); Eosinophils Percent Auto 0.7 % (0-4); Hematocrit 37.3 % (37.0-47.0); Imm Gran Abs Auto 0.01 X10*3/uL (0.00-0.03); Imm Gran Pct Auto 0.2 % (0.0-0.4); Lymphocytes Percent Auto 9.9 % (20-40); Mean Corpuscular HGB Conc 29.8 g/dl (31.0-35.0); Mean Corpuscular Hemoglobin 28.8 pg (27.0-33.0); Mean Corpuscular Volume 96.9 fL (80.0-98.0); Mean Platelet Volume 12.7 fL (9.4-12.3); Monocytes Percent Auto 7.5 % (2-11); Neutrophils Absolute Auto 4.4 x10*3/uL (2.0-8.3); Neutrophils Percent Auto 81.5 % (45-73); Platelet Count 102 X10*3/uL (160-400); Red Blood Count 3.85 X10*6/uL (4.20-5.50); Red Cell Distribution Width 17.8 % (11.0-16.0); White Blood Count 5.4 X10*3/uL (4.8-10.8)
[2022-03-11 12:56] LABS: PLT ABN DIST 1
[2022-03-11 12:57] LABS: MANUAL DIFF FLAG NO
[2022-03-11 13:18] LABS: Anion Gap 14 (12-20); Blood Urea Nitrogen 83 mg/dL (9-16); Calcium 9.1 mg/dL (8.4-10.2); Carbon Dioxide 26 mmol/L (22-29); Chloride 104 mmol/L (96-108); Estimated Glomerular Filt Rate 15; Glucose Random 93 mg/dL (60-115); Potassium 5.3 mmol/L (3.3-5.1); Sodium 139 mmol/L (135-145)
[2022-03-11 13:49] LABS: Appearance Urine CLOUDY; Color Urine YELLOW; Glucose Urine UA NEG (NEG); Leukocyte Esterase Urine 1+ (NEG); Nitrite Urine NEG (NEG); Specific Gravity - Urine 1.025 (1.005-1.025); Urine Blood 1+ (NEG); Urine Ketones NEG (NEG); Urine Protein 3+ MG/DL (NEG-TRACE)
[2022-03-11 14:19] LABS: Bacteria Urine 1+ /LPF; Squamous Epithelial Cell Urine 1+ /LPF
[2022-03-11 14:21] LABS: Hyaline Casts Urine 0-2 /LPF; WBC Urine 30-49 /HPF (0-4)
== END 2022-03-11 12:07 | disposition home or self-care (01) ==
LOC: HO.LAB 12:06
PROVIDERS: PCP Internal Medicine; Visit Provider Internal Medicine
DX: I50.22 Chronic systolic (congestive) heart failure (principal); E87.5 Hyperkalemia
CPT/HCPCS: 36415; 80048; 81001; 85025

== ENCOUNTER → 2022-03-13 14:41 | Outpatient (BNVA) | payer OTHER, SELFPAY | PROVIDERS: PCP Internal Medicine; Visit Provider Internal Medicine | DX: Z13.89 Encounter for screening for other disorder (principal) ==

== ENCOUNTER 2022-03-14 20:27 | Inpatient (IN) | payer OTHER, SELFPAY ==
--- NOTE | ~2022-03-14 | CT_ITS ---
EXAMINATION: CT ABDOMEN AND PELVIS WITHOUT CONTRAST CLINICAL INFORMATION: Diffuse abdominal pain, distention, rule out bowel obstruction COMPARISON: 05/23/2021 TECHNIQUE: Multidetector volumetric imaging was performed from the superior aspect of the liver through the pubic symphysis. Sagittal and coronal reformatted images were obtained on the technologist's workstation. This CT examination was performed using dose optimization techniques as appropriate, variously including the following: *Automated exposure control *Adjustment of mA and/or kV according to patient size (this includes techniques or standardized protocols for targeted exams where dose is matched to indication/reason for exam; i.e. extremities or head) *Use of iterative reconstruction technique DLP: 489 mGy-cm FINDINGS: Suboptimal assessment due to motion artifact. LUNG BASES: Severe cardiomegaly. Small pleural effusions with adjacent pulmonary opacities favoring atelectasis. Coronary artery calcifications are present. LIVER, GALLBLADDER, AND BILIARY TREE: The liver has a slightly nodular contour. No intrahepatic biliary ductal dilatation. The gallbladder is unremarkable. Trace perihepatic fluid. PANCREAS: Unremarkable. SPLEEN: Unremarkable. ADRENAL GLANDS: There is a diffusely thickened appearance of both adrenal glands. KIDNEYS AND URETERS: No hydronephrosis or obstructing calculus. Right lower pole renal cyst noted; no follow-up recommended. A few scattered tiny calculi are noted bilaterally. BLADDER: Unremarkable. GASTROINTESTINAL TRACT: No evidence of bowel obstruction. Moderate amount of stool is present in the colon. No significant bowel wall thickening is seen. Small to moderate pelvic free fluid. ABDOMINAL WALL: No significant hernia is appreciated. LYMPH NODES: No lymphadenopathy is seen, though assessment is limited in the absence of intravenous contrast. VASCULAR: There is atherosclerotic calcification along the aorta. PELVIC VISCERA: Patient is status post hysterectomy. OSSEOUS STRUCTURES: Degenerative changes are noted in the hips and spine. CT/CT abdomen pelvis wo con IMPRESSION: 1. Suboptimal assessment due to motion artifact. No evidence of bowel obstruction. 2. Severe cardiomegaly. Small pleural effusions with adjacent bibasilar atelectasis. 3. Trace perihepatic fluid. Small to moderate pelvic free fluid. Fleischner guidelines were followed.
--- NOTE | ~2022-03-14 | XR_ITS ---
EXAMINATION: XR CHEST CLINICAL INFORMATION: Post right thoracentesis. COMPARISON: Chest 03/30/2022 TECHNIQUE: Inspiration and expiration views of the chest were obtained. FINDINGS: Post right thoracentesis. There is significant expansion of right lower lobe and decrease or near-complete resolution of right pleural effusion. There is no pneumothorax. The left lung is expanded and clear. Heart size is enlarged. The pulmonary vascularity is normal. There is a solitary pacer electrode in the right ventricle. No gross bony abnormality is seen. There are median sternotomy sutures and mediastinal kristian from previous CABG. XR/XR chest 1V IMPRESSION: Status post right thoracentesis. There is significant resolution of right pleural effusion with expansion of right lung. No pneumothorax seen. Mild cardiomegaly with evidence of previous CABG and solitary pacer electrode in the right ventricle are stable.
--- NOTE | ~2022-03-14 | XR_ITS ---
EXAMINATION: XR CHEST CLINICAL INFORMATION: Shortness of breath. COMPARISON: Chest radiograph dated from 04/03/2022. TECHNIQUE: AP view of the chest was obtained. FINDINGS: Stable cardiomegaly, and similar positioning of a right pacer/AICD lead. Sternotomy wires and mediastinal surgical clips are again noted. A large bore left IJ CVC is new and terminates at the level of the cavoatrial junction. Increase size of a right pleural effusion when compared to 04/03/2022. Otherwise, stable examination. No acute osseous abnormalities. Nonspecific surgical material is again noted over the right upper quadrant. XR/XR chest 1V IMPRESSION: Increased right pleural effusion when compared to 04/03/2022.
--- NOTE | ~2022-03-14 | XR_ITS ---
EXAMINATION: XR CHEST CLINICAL INFORMATION: Enteric tube placement. COMPARISON: Chest radiograph done earlier today at 12:55 PM. TECHNIQUE: AP view of the chest was obtained. FINDINGS: The side port of the enteric tube is above the diaphragm projecting over the lower esophagus, and the tip terminates at the level of the gastroesophageal junction. Stable cardiomegaly. Unchanged positioning of right-sided pacer/AICD. Sternotomy wires and mediastinal surgical clips are again noted. Stable positioning of surgical material projecting over the right lower lung. Increased right pneumothorax causing significant compression of the right lower lobe. Unchanged multifocal airspace opacities. XR/XR chest 1V IMPRESSION: Increased right pneumothorax. Enteric tube terminates above the diaphragm, recommend advancement. Stable cardiomegaly and similar extensive multifocal airspace opacities. This critical result was discussed with Dr. Villanueva at 04/06/2022 10:09 PM and it was ascertained that the content and urgency of the report was understood at the time of direct communication.
--- NOTE | ~2022-03-14 | XR_ITS ---
EXAMINATION: XR CHEST CLINICAL INFORMATION: Follow-up right pneumothorax COMPARISON: Chest radiograph earlier this evening 5:40 PM TECHNIQUE: Frontal view of the chest was obtained. FINDINGS: Patient appears to have been extubated since the prior study. A small, right chest tube is present. No pneumothorax is detected. A small amount of subcutaneous emphysema remains around the chest tube insertion site. Again seen is a right chest wall pacer/defibrillator. NG tube present with tip in stomach. The heart remains enlarged. Multifocal airspace opacities appear slightly improved. XR/XR chest 1V IMPRESSION: A pneumothorax does not appear present at this time.
--- NOTE | ~2022-03-14 | XR_ITS ---
EXAMINATION: XR CHEST CLINICAL INFORMATION: Follow-up after removal of right chest tube. COMPARISON: 04/09/2022 TECHNIQUE: Frontal view of the chest was obtained. FINDINGS: ET tube is approximately 4 cm above the cathy. Enteric tube courses along the esophagus, into the stomach, beyond the [id number]. The right pigtail pleural drainage catheter has been removed. There appears to be trace residual apical pneumothorax, unchanged compared to 04/09/2022. No improvement in lung disease. Persistent consolidation in right lower lobe and patchy opacity in the left lung. Bronchial son appear to be diffusely thickened. Stable appearance of large cardiomediastinal silhouette. The tip of the cardiac lead projects over the region of the apex of right ventricle. There is mild soft tissue emphysema of the right inferolateral chest wall. XR/XR chest 1V IMPRESSION: * There appears to be trace residual right apical pneumothorax, unchanged. * No interval improvement in the pulmonary disease.
--- NOTE | ~2022-03-14 | XR_ITS ---
EXAMINATION: XR CHEST CLINICAL INFORMATION: Chest tube placement COMPARISON: 04/07/2022 TECHNIQUE: Frontal view of the chest was obtained. FINDINGS: Pigtail catheter overlies the mid right hemithorax. Redemonstrated right-sided AICD, sternal wires, and mediastinal clips. Enteric tube courses into the stomach. Endotracheal tube tip lies 3.8 cm above the cathy. Redemonstrated moderate-sized right pneumothorax with apical and basilar components, similar to recent prior exam. Persistent dense opacification of the right base and opacity within the mid to upper left lung, similar to prior. Cardiac silhouette remains enlarged. No acute osseous findings are seen. XR/XR chest 1V IMPRESSION: Pigtail catheter overlies the mid right hemithorax. Moderate-sized right pneumothorax appears similar to prior. Redemonstrated regions of bilateral airspace opacity.
--- NOTE | ~2022-03-14 | XR_ITS ---
EXAMINATION: XR CHEST CLINICAL INFORMATION: Follow-up right pneumothorax after waterseal COMPARISON: Chest radiograph earlier today at 1:33 PM TECHNIQUE: Frontal view of the chest was obtained. FINDINGS: An ET tube is present 2.3 cm above the cathy. An NG tube is present in the stomach. A right chest wall pacer/defibrillator remains in place. A right-sided small caliber chest tube is present. No pneumothorax is seen. A small amount of subcutaneous emphysema is seen around the right chest tube insertion site. Airspace opacities are similar to the prior study. The heart remains enlarged XR/XR chest 1V IMPRESSION: Significant pneumothorax is not seen. Subcutaneous emphysema is present.
--- NOTE | ~2022-03-14 | CT_ITS ---
EXAMINATION: CT CHEST WITHOUT CONTRAST CLINICAL INFORMATION: Chest tube placement COMPARISON: Radiographs from earlier today TECHNIQUE: Multidetector volumetric CT imaging of the chest was done. Axial MIP volume rendering provided. Sagittal and coronal reformatted images were obtained. This CT examination was performed using dose optimization techniques as appropriate, variously including the following: *Automated exposure control *Adjustment of mA and/or kV according to patient size (this includes techniques or standardized protocols for targeted exams where dose is matched to indication/reason for exam; i.e. extremities or head) *Use of iterative reconstruction technique DLP: 303 mGy-cm FINDINGS: LUNGS/PLEURA: There is a moderate-sized right hydropneumothorax, with relatively small pleural fluid component. Lateral approach right basilar pigtail catheter tip lies in the medial basilar hemithorax. There is extensive opacification of the right lower lobe airways, and the parenchyma is densely opacified, favoring at least a component of atelectasis. There is moderately extensive opacification of the right middle lobe which could reflect a combination of atelectasis and consolidation. Milder patchy consolidation is noted in the right upper lobe. There is extensive consolidation throughout the left upper lobe and moderate consolidation in the left lower lobe. Dependent left lower lobe opacity favors atelectasis adjacent to a small to moderate pleural effusion. MEDIASTINUM: Endotracheal tube tip lies approximately 3 cm above the cathy. Thyroid gland is grossly unremarkable. No definite mediastinal lymphadenopathy, though assessment is limited without intravenous contrast. Right-sided AICD lead tip extends to the right ventricle. There is severe cardiomegaly without significant pericardial effusion. Calcification at the left ventricular apex is suspicious for sequelae of prior infarct. Mitral prosthesis noted. There is scattered calcification along the aorta. AXILLA: No lymphadenopathy. UPPER ABDOMEN: Small amount of free fluid noted in the upper abdomen. There is a thick-walled appearance of the adrenal glands, possibly representing hyperplasia. OSSEOUS STRUCTURES: Status post sternotomy. Mild degenerative changes are present in the spine. CT/CT chest wo con IMPRESSION: 1. Moderate-sized right hydropneumothorax with relatively small pleural fluid component. Right basilar pigtail catheter tip in the medial basilar hemithorax. 2. Overall moderately extensive regions of pulmonary consolidation bilaterally as described above. Underlying atelectasis is suspected in the lower lobes. 3. Small to moderate left pleural effusion. 4. Severe cardiomegaly. 5. Small amount of free fluid in the upper abdomen.
--- NOTE | ~2022-03-14 | XR_ITS ---
EXAMINATION: XR CHEST CLINICAL INFORMATION: Chest tube placement COMPARISON: Chest CT and radiographs from earlier today TECHNIQUE: Frontal view of the chest was obtained. FINDINGS: Endotracheal tube tip lies approximately 2 cm above the cathy. Enteric tube courses into the stomach. Right basilar pigtail catheter is noted. Redemonstrated right-sided AICD, sternal wires, and mediastinal clips. There is been interval reexpansion of the right lung compared to prior with near complete resolution of the previous identified pneumothorax. Trace pleural effusion may be present at the right base. Right basilar opacity is also suspected medially. Redemonstrated extensive consolidations in the left lung with small left pleural effusion. Cardiac silhouette remains enlarged. No acute osseous findings are seen. XR/XR chest 1V IMPRESSION: Right basilar pigtail catheter with near complete resolution of prior pneumothorax. Trace residual right pleural effusion suspected. Redemonstrated bilateral opacities, left greater than right.
--- NOTE | ~2022-03-14 | XR_ITS ---
EXAMINATION: XR CHEST CLINICAL INFORMATION: Cough, shortness of breath, rule out pneumonia COMPARISON: 10/09/2021 TECHNIQUE: 2 views of the chest were obtained. FINDINGS: Right-sided AICD lead tip overlies the right ventricle. Lung volumes are symmetric. Small bibasilar pleural effusions are noted, likely with associated mild atelectasis. There is mild prominence of the central vasculature. No additional consolidation is seen. No evidence of pneumothorax. Cardiac silhouette remains enlarged. Sternal wires and mediastinal clips are noted. No acute osseous findings are seen. XR/XR chest 2V IMPRESSION: Small pleural effusions with adjacent bibasilar opacities suggesting atelectasis. Prominent central vasculature suggesting a degree of congestion.
--- NOTE | ~2022-03-14 | XR_ITS ---
EXAMINATION: XR CHEST CLINICAL INFORMATION: Follow-up pneumothorax COMPARISON: Chest radiograph earlier today at 5:00 AM TECHNIQUE: Frontal view of the chest was obtained. FINDINGS: Since the prior study from earlier this morning there is been no significant interval change. Again seen is cardiomegaly, a right-sided chest tube, right chest wall pacer/defibrillator, ET tube 3.5 cm above the cathy, esophageal temperature probe in distal esophagus and NG tube with tip in stomach. Subcutaneous emphysema remains in the right chest wall around the catheter entry site. Bibasilar atelectasis is present. Small effusions may be present. XR/XR chest 1V IMPRESSION: No change in appearances since radiograph earlier this morning. No pneumothorax is detected
--- NOTE | ~2022-03-14 | XR_ITS ---
EXAMINATION: XR CHEST CLINICAL INFORMATION: OG tube placement COMPARISON: 04/06/2022 TECHNIQUE: Frontal view of the chest was obtained. FINDINGS: Endotracheal tube tip lies approximately 4 cm above the catyh. Enteric tube courses into the stomach. Redemonstrated right-sided AICD lead tip overlying the right ventricle. Sternal wires and mediastinal clips again demonstrated. Moderate-sized right pneumothorax appears similar to possibly slightly increased from prior, with apical and basilar components. Redemonstrated airspace opacity throughout much of the mid to upper left lung. Possible small pleural effusions. Enlarged cardiac silhouette is similar to prior. No acute osseous findings are seen. XR/XR chest 1V IMPRESSION: Enteric tube courses into the stomach. Moderate-sized right pneumothorax, similar to possibly slightly increased from prior. Redemonstrated mid to upper left lung opacities. This critical result was discussed with Karyn Howell on 04/07/2022 1:40 AM, and it was ascertained that the content and urgency of the report was understood at the time of direct communication.
--- NOTE | ~2022-03-14 | US_ITS ---
EXAMINATION: US-GUIDED THORACENTESIS CLINICAL INFORMATION: Right-sided pleural effusion COMPARISON: None TECHNIQUE: Following explaining ultrasound-guided right thoracentesis procedure, benefits and risk, and a written consent was obtained from the patient. Patient was placed sitting upright on ultrasound stretcher and preliminary ultrasound imaging was performed through the posterior chest. An optimal site was selected along the right posterior 10th interspace along the inferior scapular line and marked on the skin. The marked area was cleaned and draped in the usual sterile manner. 1% lidocaine was injected at the puncture site. Through a small skin incision, a 4 [place] hiQ [place] catheter was advanced into the right pleural space. After observing fluid return, the stylet was withdrawn and catheter connected to a vacuum bottle via connecting cannula. After obtaining all fluid and observing no more fluid remaining and patient having increased coughing, the catheter was removed. Patient's vital signs improved following drainage. Complete hemostasis achieved at puncture site. Sterile dressing applied postprocedure. Chest x-ray was to be obtained subsequently. FINDINGS: On preliminary ultrasound imaging, there is moderate right pleural effusion. Approximately 1.2 L of clear yellowish fluid was drained. Part of this fluid was sent to the lab as per referring physician's orders. US/US thoracentesis IMPRESSION: Successful ultrasound-guided therapeutic and diagnostic right paracentesis performed.
--- NOTE | ~2022-03-14 | XR_ITS ---
EXAMINATION: XR CHEST CLINICAL INFORMATION: Hypoxia. COMPARISON: Chest CT scan radiographs dated 04/07/2022, chest radiograph dated 04/13/2022. TECHNIQUE: Frontal view of the chest was obtained. FINDINGS: Support devices: Endotracheal tube approximately 3 cm proximal to cathy. Enteric tube with tip not included on the study but seen below left hemidiaphragm. Temperature probe overlies the mid one third of the esophagus. Right-sided central venous catheter with tip terminating at the caval atrial junction. A left-sided central venous catheter seen with tip terminating at the left brachiocephalic/caval junction. There are increased pulmonary vascular markings. Moderate right and small left pleural effusions are seen. No overt pneumothorax. The heart is enlarged. The mediastinal structures are unremarkable. XR/XR chest 1V IMPRESSION: Bilateral pleural effusions, right greater left with cardiomegaly is similar in appearance, but mild interval increase in congestion.
--- NOTE | ~2022-03-14 | XR_ITS ---
EXAMINATION: XR CHEST CLINICAL INFORMATION: Follow-up right pneumothorax and pleural effusion. COMPARISON: None TECHNIQUE: Frontal view of the chest was obtained. FINDINGS: The lungs are hypoexpanded with bibasilar atelectasis and/or infiltrate. This likely underlying right pleural effusion. There is a left central venous catheter with its tip at the brachiocephalic venous junction. Endotracheal tube tip 2.9 cm above the cathy. Enteric tube tip is in stomach. There are pacer electrodes in the right ventricle. No gross bony abnormality seen. XR/XR chest 1V IMPRESSION: Bibasilar atelectasis and/or infiltrates. Support lines and catheters are in satisfactory position and unchanged to previous exam 04/10/2022.
--- NOTE | ~2022-03-14 | XR_ITS ---
EXAMINATION: XR CHEST CLINICAL INFORMATION: Chest tube placement COMPARISON: 04/07/2022 TECHNIQUE: Frontal view of the chest was obtained. FINDINGS: Pigtail catheter overlies the mid to basilar right hemithorax. Endotracheal tube tip lies approximately 3 cm above the cathy. Enteric tube courses into the stomach. Redemonstrated sternal wires and mediastinal clips along with right-sided AICD. Persistent moderate-sized right pneumothorax, similar to prior. Dense right basilar opacity again noted. Regions of opacity in the mid to upper left lung are redemonstrated. Cardiac silhouette remains enlarged. No acute osseous findings are seen. XR/XR chest 1V IMPRESSION: Pigtail catheter overlies the mid to basilar right hemithorax. Persistent moderate-sized right pneumothorax, similar to prior. Redemonstrated regions of bilateral airspace opacity.
--- NOTE | ~2022-03-14 | IR_ITS ---
PROCEDURE: IR INSERTION OF CENTRAL VENOUS CATHETER CLINICAL INFORMATION: Placement of temporary dialysis catheter. Patient has an INR of 2.6. COMPARISON: None TECHNIQUE: Following explaining ultrasound fluoroscopy-guided placement of a temporary dialysis catheter procedure, benefits and risk, a written consent was obtained. Patient was placed supine with head rotated to the right with preliminary ultrasound imaging of the left neck performed. Patient has pacer electrode on the right side. An optimal site was selected along the left neck and marked. The marked site was cleaned and draped with 2% chlorhexidine solution. 1% lidocaine was injected at puncture site. Under sterile ultrasound guidance, a single wall needle was advanced and left jugular vein was punctured. After obtaining venous return, a thin guidewire was advanced through the needle and placed in SVC under fluoroscopy. The needle was withdrawn and a 5-Icelandic dilator with sheath was advanced. Subsequently, the dilator and the guidewire was removed and a 0.035 J-wire was advanced to the 5-Icelandic sheath into the IVC under fluoroscopy control. The sheath was removed and the tract was dilated with an 8-Icelandic dilator. Subsequently a 12-Icelandic 20 cm long [place] temporary dialysis catheter was advanced over the guidewire into the SVC. The catheter was then anchored to the skin with two 2-0 nylon nonabsorbable sutures. Both ports of the catheter were flushed with saline followed by heparin. Sterile dressing applied postprocedure at the puncture site. Patient tolerated procedure extremely well. No conscious sedation was administered. A single image was obtained under fluoroscopy documenting position of the catheter tip. All elements of maximal sterile barrier technique followed including use of cap, mask, sterile gown, sterile gloves, a sterile full body drape and hand hygiene. Also followed skin preparation with 2% chlorhexidine for cutaneous antisepsis, and sterile ultrasound preparation with sterile gel and probe cover when applicable. FINDINGS: On preliminary ultrasound, there is a slightly prominent left jugular vein with echogenic strands within. Approximately 20 cm long 12-Icelandic dual lumen [place] dialysis catheter was placed with its tip in distal SVC. The catheter is ready for use. 2 sutures were placed anchoring the catheter. IR/IR cvc insert non tunnel IMPRESSION: Successful and fluoroscopy-guided placement of a 12-Icelandic [place] temporary dialysis catheter via left jugular vein. The catheter is ready for use. FLUOROSCOPY TIME: 1.7 minutes. DOSE AREA PRODUCT: 425 cGy-cm2. IMAGES: 1.
--- NOTE | ~2022-03-14 | XR_ITS ---
EXAMINATION: XR ABDOMEN KUB CLINICAL INDICATION: Abdominal distention COMPARISON: 02/01/2018 pelvic films and upper abdomen seen on the 04/11/2022 chest x-ray TECHNIQUE: AP view of the abdomen. FINDINGS: Stool and air seen throughout colon to the rectum. No obstructive changes seen. Scattered air-filled loops of small bowel are present suggesting underlying ileus pattern. No obvious obstruction. Degenerative changes in the hips. XR/XR KUB IMPRESSION: No obstructive changes seen. Small large bowel gas pattern more suggestive of underlying ileus.
--- NOTE | ~2022-03-14 | XR_ITS ---
EXAMINATION: XR CHEST CLINICAL INFORMATION: Replaced right IJ hemodialysis catheter. COMPARISON: 04/07/2022 at 4:00 AM. TECHNIQUE: AP view of the chest was obtained. FINDINGS: Endotracheal tube terminates at 3.8 cm above the cathy. Enteric tube curses into the stomach. Right basilar pigtail catheter in similar positioning to prior. Redemonstration of right-sided AICD, sternal wires and mediastinal clips. A left IJ CVC terminates in similar positioning to prior. Unchanged cardiomegaly. Small amount of residual right basilar pneumothorax, unchanged. Resolved pleural effusions. Multifocal airspace opacities are not significantly changed. XR/XR chest 1V IMPRESSION: 1. Endotracheal tube terminates at 3.8 cm above the cathy. 2. A right IJ CVC is not identified. 3. A left IJ CVC and other tubes are in similar positioning to prior. 4. Small residual right pneumothorax not significantly changed. 5. Multifocal airspace opacities are stable.
--- NOTE | ~2022-03-14 | XR_ITS ---
EXAMINATION: XR CHEST CLINICAL INFORMATION: TLC placement COMPARISON: Chest x-ray 04/28/2022 TECHNIQUE: Frontal view of the chest was obtained. FINDINGS: There is a right central venous catheter its tip in proximal SVC. The left central venous catheter with its tip in the proximal SVC. Endotracheal tube tip 4.1 cm above the cathy. Enteric tube tip is below diaphragm not in the [id number]. There is a esophageal monitor with its tip in the mid esophagus. There is solitary pacer electrode in the right ventricle. There is moderate opacity in the right lung base likely effusion with underlying atelectasis. Heart size enlarged. Pulmonary vascularity is normal. No gross bony abnormality seen. XR/XR chest 1V IMPRESSION: No change in support lines and catheters. Moderate right basilar opacity, stable. Minimal atelectatic changes left lung base.
--- NOTE | ~2022-03-14 | XR_ITS ---
EXAMINATION: XR CHEST CLINICAL INFORMATION: Follow-up pneumothorax. COMPARISON: Chest 04/08/2022 at 1:33 PM. TECHNIQUE: Frontal view of the chest was obtained. FINDINGS: The endotracheal tube and enteric tube are in satisfactory position. There is a solitary pacer electrode in the right ventricle. There are mediastinal kristian and median sternotomy sutures from previous CABG. There is patchy parenchymal opacity in both upper lobes and lower lobes slightly more prominent in the left lung. There is a right chest tube along the right lung base. Subcutaneous emphysema right lateral chest wall is unchanged. There is a tiny likely right apical pneumothorax which is stable as well. XR/XR chest 1V IMPRESSION: Overall no major change compared to previous study from early exam at 1:33 PM.
--- NOTE | ~2022-03-14 | XR_ITS ---
EXAMINATION: XR CHEST CLINICAL INFORMATION: Hypoxia COMPARISON: Chest 04/06/2022 TECHNIQUE: Frontal view of the chest was obtained. FINDINGS: The lungs are well-expanded with patchy opacity left upper and lower lobe likely new infiltrate. Mild haziness right lung base likely small pleural effusion and underlying atelectasis. Heart size is enlarged. Tip of endotracheal tube 2.4 cm above the cathy. Tip of left jugular inserted dialysis catheter in distal SVC. Size enlarged. No gross bony abnormality. XR/XR chest 1V IMPRESSION: New left upper lower lobe infiltrates. Position of endotracheal tube, left dialysis catheter, cardiomegaly and right-sided pleural effusion and underlying atelectasis is stable.
--- NOTE | ~2022-03-14 | XR_ITS ---
EXAMINATION: XR CHEST CLINICAL INFORMATION: Follow-up right pneumothorax. COMPARISON: Chest 02/06/2022. TECHNIQUE: Frontal view of the chest was obtained. FINDINGS: There is no change in the right sided chest tube catheter. Position of endotracheal tube, enteric tube and a single pacer electrode in the right ventricle are all stable. The heart size is enlarged. Patchy opacity in left upper lobe shows mild improvement. Patchy opacity left lower lobe and right lung base is stable. This probably loculated right pleural effusion. No gross bony abnormality seen. XR/XR chest 1V IMPRESSION: Cardiomegaly with small right pleural effusion. There is no change in the lines and catheters as well as right chest tube from previous exam. Patchy opacity left upper lobe is improved. Patchy opacities in both lower lobes are stable.
--- NOTE | ~2022-03-14 | XR_ITS ---
EXAMINATION: XR CHEST CLINICAL INFORMATION: Right-sided effusion COMPARISON: March 28, 2022 and March 15, 2022 TECHNIQUE: AP portable view of the chest was obtained. FINDINGS: There does not appear to be appreciable change of the large right pleural effusion. The cardiopericardial silhouette is very enlarged. Status post median sternotomy and CABG. Pacemaker/defibrillator again seen in place. No evidence of airspace edema. No pneumothorax. XR/XR chest 1V IMPRESSION: No significant change in large right pleural effusion. No evidence of airspace edema. Marked cardiomegaly.
--- NOTE | ~2022-03-14 | XR_ITS ---
EXAMINATION: XR CHEST CLINICAL INFORMATION: Cough. Difficulty breathing. COMPARISON: Previous chest x-ray most recent 03/15/2022 TECHNIQUE: Frontal view of the chest was obtained. FINDINGS: The cardiac silhouette is enlarged. There is a right subclavian pacemaker defibrillator device that appears unchanged. There are post-CABG changes and median sternotomy wires. There may be pulmonary venous redistribution. The lungs are otherwise clear. There is an increasing moderate to large right pleural effusion. May be a small left pleural effusion. There is no pneumothorax. XR/XR chest 1V IMPRESSION: Stable enlargement of the cardiac silhouette. Increasing now moderate to large right pleural effusion.
[2022-03-14 21:36] VITALS: BP 120/64; PULSE 80; RESP 16; TEMP 36.9; O2SAT 98
[2022-03-14 21:52] LABS: MANUAL DIFF FLAG NO
[2022-03-14 21:53] LABS: Basophils Percent Auto 0.2 % (0-2); Eosinophils Percent Auto 0.3 % (0-4); Hematocrit 37.1 % (37.0-47.0); Hemoglobin 11.1 g/dl (12.0-16.0); Imm Gran Abs Auto 0.02 X10*3/uL (0.00-0.03); Imm Gran Pct Auto 0.3 % (0.0-0.4); Lymphocytes Absolute Auto 0.3 X10*3/uL (1.2-4.9); Lymphocytes Percent Auto 4.7 % (20-40); Mean Corpuscular HGB Conc 29.9 g/dl (31.0-35.0); Mean Corpuscular Hemoglobin 28.6 pg (27.0-33.0); Mean Corpuscular Volume 95.6 fL (80.0-98.0); Monocytes Absolute Auto 0.7 X10*3/uL (0.1-1.2); Monocytes Percent Auto 10.4 % (2-11); Neutrophils Absolute Auto 5.4 x10*3/uL (2.0-8.3); Neutrophils Percent Auto 84.1 % (45-73); Platelet Count 126 X10*3/uL (160-400); Red Blood Count 3.88 X10*6/uL (4.20-5.50); Red Cell Distribution Width 17.8 % (11.0-16.0); White Blood Count 6.4 X10*3/uL (4.8-10.8)
[2022-03-14 22:14] LABS: Alanine Aminotransferase 28 U/L (0-31); Albumin Level 2.9 g/dL (3.5-5.0); Alkaline Phosphatase 207 U/L (39-117); Anion Gap 15 (12-20); Aspartate Amino Transferase 23 U/L (5-31); Bilirubin Total 0.7 mg/dL (0.0-1.0); Blood Urea Nitrogen 78 mg/dL (9-16); Calcium 8.6 mg/dL (8.4-10.2); Carbon Dioxide 27 mmol/L (22-29); Chloride 103 mmol/L (96-108); Estimated Glomerular Filt Rate 14; Glucose Random 100 mg/dL (60-115); Potassium 5.6 mmol/L (3.3-5.1); Sodium 139 mmol/L (135-145); Total Protein 6.9 g/dL (6.5-8.0)
[2022-03-15 00:41] LABS: IDNOW Serial# 16C4AD1C; Influenza A Negative (Negative); Influenza B2 Negative (Negative)
[2022-03-15 00:42] LABS: COVID-19 Test Negative (Negative)
[2022-03-15 01:30] VITALS: BP 127/78; PULSE 81; RESP 16; TEMP 36.5; O2SAT 98
--- NOTE | 2022-03-15 02:12 | ED.ABDPAIN ---
HPI - Abdominal Pain General Chief Complaint: Abdominal Pain Stated Complaint: Flu like symptoms Time Seen by Provider: 03/15/22 01:41 Source: patient Mode of arrival: ambulatory Limitations: no limitations History of Present Illness HPI narrative: 71-year-old female who presents emergency department for evaluation of cough, abdominal pain, nausea and vomiting. Patient states that she has been sick since yesterday morning (03/14/2022). She states that she has had diffuse abdominal pain which she describes as a ?pain ?. The pain is 2/10 at its worst. pain is intermittent and she runs or hand diffusely over abdomen when asked to localize the pain. She states she feels bloated as well. She has had constant nausea with a decreased appetite. She has had 1 episode of vomiting. She states that she had a normal bowel movement yesterday. States that she does have a heartburn like pain is well which she has had in the past. She also is complaining of back pain. Patient also complains of feeling short of breath, having dyspnea on exertion and orthopnea. She states she has a cough which is nonproductive. She states that in November of 2021 she had fluid in her lungs and was on a high dose of Lasix 80 mg twice a day. She states that she is currently taking Lasix 20 mg twice a day. She does have a history ischemic cardiomyopathy with an ICD. Patient does have a history of renal failure but is not on dialysis. MD elicited complaint: abdominal pain Pertinent past history: gastritis Onset (ago): day(s) (1) Pain Consistency: intermittent Location: diffuse Severity: mild Pain scale (0-10): 2 Quality: aching Radiation: none Migration to: no migration Exacerbating factors: nothing Relieving factors: nothing Associated symptoms: nausea and vomiting Related Data Home Medications Medication Instructions Recorded Confirmed acetaminophen 325 mg capsule 325 mg PO QID PRN 08/06/20 03/10/22 (Tylenol) vit C 250 mg-vit E 90 mg-zinc 40 1 tab PO BID 08/06/20 03/10/22 mg-copper 1 id-cifosv-ilctov capsule (PreserVision AREDS-2) docusate sodium 100 mg capsule 200 mg PO BEDTIME 08/09/21 03/10/22 artifi.tears(hypromellose)(PF) 0.3 1 drp OPHTHALMIC (EYE) TID 09/03/21 03/10/22 % eye drops calcium 750 mg PO DAILY 10/09/21 03/10/22 rosuvastatin 10 mg tablet 10 mg PO BEDTIME 10/21/21 03/10/22 trazodone 50 mg tablet 50 mg PO BEDTIME PRN 10/21/21 03/10/22 warfarin 2.5 mg tablet 2.5 mg PO .COMPLEX 02/25/22 03/13/22 Previous Rx's Medication Instructions Recorded prosthetics #1 ea 05/23/21 levothyroxine 137 mcg tablet 137 mcg PO QAM #90 tab 07/26/21 JUXTA LITe compression #2 ea 07/31/21 walker #1 ea 08/22/21 witch jose 50 % topical pads 1 pad TOPICAL BID-TID PRN #100 ea 09/19/21 (Hemorrhoidal (witch jose)) occular prosthetic. #1 ea 10/08/21 hydrocortisone 2.5 % topical cream 1 appl CO BID PRN #40 g 10/16/21 with perineal applicator (Proctozone-HC) prednisone 10 mg tablet See Taper PO DAILY #20 tab 10/24/21 diclofenac sodium 1 % topical gel 4 g TOPICAL QID #100 g 11/15/21 (Voltaren Arthritis Pain) ferrous sulfate 324 mg (65 mg 324 mg PO BID #60 tab 11/15/21 iron) tablet,delayed release furosemide 20 mg tablet 20 mg PO BID 90 Days #180 tab 12/16/21 aspirin 81 mg tablet,delayed 81 mg PO DAILY #90 tab 12/19/21 release ascorbic acid (vitamin C) 500 mg 500 mg PO BID #60 cap 12/24/21 capsule,extended release omeprazole 20 mg capsule,delayed 20 mg PO DAILY #90 cap 01/15/22 release fluoxetine 20 mg capsule 20 mg PO DAILY 90 Days #90 cap 02/09/22 cyclobenzaprine 5 mg tablet 5 mg PO BEDTIME PRN #14 tab 02/28/22 carvedilol 12.5 mg tablet 12.5 mg PO BIDWM 90 Days #180 tab 03/10/22 isosorbide dinitrate 5 mg tablet 5 mg PO BID #180 tab 03/10/22 Allergies Allergy/AdvReac Type Severity Reaction Status Date / Time TAPE,PAPER Allergy Unknown RASH TO Uncoded 03/13/22 14:54 PAPER TAPE Review of Systems Review of Systems Yes all other systems are reviewed and are negative FOR[facility]LY [facility] Past Medical History Medical History Acute on chronic heart failure with reduced ejection fraction and diastolic dysfunction Amyloidosis Amyloidosis Anemia Arthritis Bladder hypertonicity CHF (congestive heart failure) Chronic atrial fibrillation Chronic heart failure with reduced ejection fraction and diastolic dysfunction Chronic HFrEF (heart failure with reduced ejection fraction) Chronic kidney disease (CKD) stage G4/A1, severely decreased glomerular filtration rate (GFR) between 15-29 mL/min/1.73 square meter and albuminuria creatinine ratio less than 30 mg/g CKD (chronic kidney disease) stage 4, GFR 15-29 ml/min Detached retina Gout Hematuria Hematuria Hemorrhoids with complication History of breast cancer HTN (hypertension) Hypercholesterolemia Hypothyroid ICD (implantable cardioverter-defibrillator) in place Ischemic cardiomyopathy Low back pain Nephrolithiasis Osteoarthritis Overweight (BMI 25.0-29.9) Pulmonary hypertension Renal cyst Thumb tendonitis Tricuspid regurgitation Urinary incontinence Surgical History H/O abdominal hysterectomy H/O mitral valve replacement H/O mitral valve replacement with mechanical valve History of bunionectomy History of cataract surgery History of colonoscopy History of left inguinal hernia repair History of sleeve gastrectomy Mechanical heart valve present Family History Family History Mother Diabetes Father Past heart attack Diabetes Sister Parkinsons disease Social History Social History Household Members: Family Household Members Other:: daughter Housing: House Do you presently have visiting nurse or other home services: No Alcohol intake: never Patient Tobacco Use Status: Never used Tobacco Tobacco use type: Cigarette e-Cigarette/Vaping Use: Never Used Second Hand Smoke Exposure: No Advance Directives: Yes Advance Directives Information Provided: Yes Advance Directives on File: Yes Advance Directives Date on File: 02/22/22 service: No Current occupational status: retired Current occupation: left handed Cognitive needs: No Hearing needs: No Vision needs: No Physical Exam ED Vital Signs: Vital Signs - 24 hr 03/14/22 21:36 03/15/22 01:30 Temperature 98.4 F 97.7 F Pulse Rate 80 81 Respiratory Rate 16 16 Blood Pressure 120/64 127/78 Pulse Oximetry 98 98 BMI result Body Mass Index 20.0 Const General: cooperative and no acute distress Orientation/consciousness: oriented to person and oriented to place Limitations: no limitations HENMT Head: Yes normal to inspection, Yes normocephalic and Yes atraumatic Ears: external ears normal General nose exam: Normal external nose present Face and sinus: Yes normal facial exam Mouth: Normal oral and palatal mucosa present Throat: Yes posterior oropharynx normal Eyes Other: Left eye blind General: appearance normal, both eyes and all related structures Pupils: Equal, round and reactive pupils present Neck Neck: Yes normal visual inspection, Yes no lymphadenopathy, Yes trachea midline and Yes supple Chest Chest palpation & inspection: normal inspection of the chest and normal palpation of entire chest wall Resp Effort & Inspection: normal respiratory effort and able to speak in complete sentences Auscultation: clear to auscultation bilaterally Cardio Rate: regular rate Rhythm: regular rhythm Heart sounds: S1 normal heart sound present, S2 normal heart sound present and no murmurs GI Inspection: Yes distended Palpation (GI): Soft to palpation, Tenderness to palpation present (GI) (Mild diffuse tenderness) and no guarding Auscultation: normal bowel sounds General: Yes no CVA tenderness Back/Spine/Pelvis Back: no CVA tenderness Skin General skin exam: no rashes or lesions noted Neuro General: oriented to person and oriented to place Cranial nerves: Yes CN's II-XII intact bilaterally and Yes Equal, round and reactive pupils present Cognition (Neuro): normal cognition Motor exam (neuro): 5/5 motor strength present throughout Extrem General: Yes normal to inspection Psych Appearance: grossly normal Speech and movement: Normal speech and movement present Affect: normal affect Attitude: cooperative Thought process: Normal thought process present Thought content: Normal thought content present Course Course Course Narrative: 71-year-old female who presents emergency department for evaluation of cough shortness of breath, dyspnea on exertion, orthopnea, nausea, vomiting, abdominal pain and abdominal bloating x1 day. Initial vital signs were normal. Patient's physical examination did reveal a distended abdomen which was diffusely tender otherwise her exam was unremarkable. Laboratory evaluation, chest x-ray and abdominal CT without contrast was ordered. Patient does not want any IV pain medications but will take Tylenol for pain. She was also ordered to get Zofran 4 mg IV and normal saline 500 cc IV. 0409: Laboratory evaluation: Low platelet count a 809194, this is chronic. Elevated potassium 5.6, chronic. Elevated BUN creatinine 783.19, chronic. Alk-phos elevated 207. COVID-19 and influenza negative. Radiology evaluation: CT scan of the abdomen pelvis did not reveal a clear etiology for the patient's abdominal pain. Chest x-ray revealed bilateral pleural effusions, cardiomegaly and increased vascular congestion consistent with CHF. Patient's presentation is consistent with congestive heart failure secondary to her ischemic cardiomyopathy. I did add a troponin the patient's labs. The patient will be treated with Lasix 60 mg IV. [place] catheter bleed inserted so that we can track her input and output. I will discuss admission with the covering hospitalist. 0613: The patient's 1st troponin was elevated at 1094. Repeat troponin was also elevated at 1104. This is not a significant change in his suspect that the patient may have chronically elevated troponins due to her renal failure or she may have a type 2 myocardial injury. I do not think that she needs heparin at this time. I did discuss this with the covering hospitalist. MDM - Abdominal Pain Lab Data Attestation: I reviewed the patient's lab results. Result diagrams: 03/14/22 21:46 03/14/22 21:46 Labs: Lab Results 03/14/22 03/14/22 03/14/22 Range/Units 21:46 21:46 21:46 WBC 6.4 (4.8-10.8) X10*3/uL RBC 3.88 L (4.20-5.50) X10*6/uL Hgb 11.1 L (12.0-16.0) g/dl Hct 37.1 (37.0-47.0) % MCV 95.6 (80.0-98.0) fL MCH 28.6 (27.0-33.0) pg MCHC 29.9 L (31.0-35.0) g/dl RDW 17.8 H (11.0-16.0) % Plt Count 126 L (160-400) X10*3/uL MPV 13.0 H (9.4-12.3) fL Immature Gran % (Auto) 0.3 (0.0-0.4) % Neut % (Auto) 84.1 H (45-73) % Lymph % (Auto) 4.7 L (20-40) % [place] % (Auto) 10.4 (2-11) % Eos % (Auto) 0.3 (0-4) % Baso % (Auto) 0.2 (0-2) % Lymph # (Auto) 0.3 L (1.2-4.9) X10*3/uL [place] # (Auto) 0.7 (0.1-1.2) X10*3/uL Eos # (Auto) 0.0 (0.0-0.4) X10*3/uL Baso # (Auto) 0.0 (0.0-0.2) X10*3/uL Abs Immat Gran (auto) 0.02 (0.00-0.03) X10*3/uL Absolute Neuts (auto) 5.4 (2.0-8.3) x10*3/uL Absolute Nucleated RBC 0.000 (0.0-0.012) X10*3/uL Nucleated RBC % (auto) 0.0 (0.0-0.2) /100WBC PT (9.9-13.0) SEC INR (0.9-1.1) APTT (24.1-38.0) SEC Sodium 139 (135-145) mmol/L Potassium 5.6 H (3.3-5.1) mmol/L Chloride 103 (96-108) mmol/L Carbon Dioxide 27 (22-29) mmol/L Anion Gap 15 (12-20) BUN 78 H (9-16) mg/dL Creatinine 3.19 H (0.5-1.4) mg/dL Estim Creat Clear Calc 16.0 Estimated GFR 14 Random Glucose 100 (60-115) mg/dL Calcium 8.6 (8.4-10.2) mg/dL Total Bilirubin 0.7 (0.0-1.0) mg/dL AST 23 (5-31) U/L ALT 28 (0-31) U/L Alkaline Phosphatase 207 H (39-117) U/L Troponin I High Sens 1094.4 H* (<3.5-17.0) ng/L Total Protein 6.9 (6.5-8.0) g/dL Albumin 2.9 L (3.5-5.0) g/dL Urine Color Urine Appearance Urine pH (5.0-8.0) Ur Specific [place] (1.005-1.025) Urine Protein (NEG-TRACE) MG/DL Urine Glucose (UA) (NEG) MG/DL Urine Ketones (NEG) MG/DL Urine Blood (NEG) Urine Nitrite (NEG) Ur Leukocyte Esterase (NEG) Urine RBC (0) /HPF Urine WBC (0-4) /HPF Ur Squamous Epith Cells /LPF Urine Bacteria /LPF Hyaline Casts /LPF COVID-19 (ANEUDY) (Negative) COVID-19 Clin Com Influenza Type A (DANNI) (Negative) Influenza Type B (DANNI) (Negative) Influenza A & B Note 03/15/22 03/15/22 03/15/22 Range/Units 00:18 00:18 04:38 WBC (4.8-10.8) X10*3/uL RBC (4.20-5.50) X10*6/uL Hgb (12.0-16.0) g/dl Hct (37.0-47.0) % MCV (80.0-98.0) fL MCH (27.0-33.0) pg MCHC (31.0-35.0) g/dl RDW (11.0-16.0) % Plt Count (160-400) X10*3/uL MPV (9.4-12.3) fL Immature Gran % (Auto) (0.0-0.4) % Neut % (Auto) (45-73) % Lymph % (Auto) (20-40) % [place] % (Auto) (2-11) % Eos % (Auto) (0-4) % Baso % (Auto) (0-2) % Lymph # (Auto) (1.2-4.9) X10*3/uL [place] # (Auto) (0.1-1.2) X10*3/uL Eos # (Auto) (0.0-0.4) X10*3/uL Baso # (Auto) (0.0-0.2) X10*3/uL Abs Immat Gran (auto) (0.00-0.03) X10*3/uL Absolute Neuts (auto) (2.0-8.3) x10*3/uL Absolute Nucleated RBC (0.0-0.012) X10*3/uL Nucleated RBC % (auto) (0.0-0.2) /100WBC PT (9.9-13.0) SEC INR (0.9-1.1) APTT (24.1-38.0) SEC Sodium (135-145) mmol/L Potassium (3.3-5.1) mmol/L Chloride (96-108) mmol/L Carbon Dioxide (22-29) mmol/L Anion Gap (12-20) BUN (9-16) mg/dL Creatinine (0.5-1.4) mg/dL Estim Creat Clear Calc Estimated GFR Random Glucose (60-115) mg/dL Calcium (8.4-10.2) mg/dL Total Bilirubin (0.0-1.0) mg/dL AST (5-31) U/L ALT (0-31) U/L Alkaline Phosphatase (39-117) U/L Troponin I High Sens (<3.5-17.0) ng/L Total Protein (6.5-8.0) g/dL Albumin (3.5-5.0) g/dL Urine Color YELLOW Urine Appearance CLEAR Urine pH 6.5 (5.0-8.0) Ur Specific [place] 1.020 (1.005-1.025) Urine Protein 2+ H (NEG-TRACE) MG/DL Urine Glucose (UA) NEG (NEG) MG/DL Urine Ketones NEG (NEG) MG/DL Urine Blood 3+ H (NEG) Urine Nitrite NEG (NEG) Ur Leukocyte Esterase NEG (NEG) Urine RBC 30-49 H (0) /HPF Urine WBC 1-4 (0-4) /HPF Ur Squamous Epith Cells 1+ /LPF Urine Bacteria 1+ /LPF Hyaline Casts 1-4 /LPF COVID-19 (ANEUDY) Negative (Negative) COVID-19 Clin Com See Note Influenza Type A (DANNI) Negative (Negative) Influenza Type B (DANNI) Negative (Negative) Influenza A & B Note See Note 03/15/22 03/15/22 Range/Units 04:51 04:51 WBC (4.8-10.8) X10*3/uL RBC (4.20-5.50) X10*6/uL Hgb (12.0-16.0) g/dl Hct (37.0-47.0) % MCV (80.0-98.0) fL MCH (27.0-33.0) pg MCHC (31.0-35.0) g/dl RDW (11.0-16.0) % Plt Count (160-400) X10*3/uL MPV (9.4-12.3) fL Immature Gran % (Auto) (0.0-0.4) % Neut % (Auto) (45-73) % Lymph % (Auto) (20-40) % [place] % (Auto) (2-11) % Eos % (Auto) (0-4) % Baso % (Auto) (0-2) % Lymph # (Auto) (1.2-4.9) X10*3/uL [place] # (Auto) (0.1-1.2) X10*3/uL Eos # (Auto) (0.0-0.4) X10*3/uL Baso # (Auto) (0.0-0.2) X10*3/uL Abs Immat Gran (auto) (0.00-0.03) X10*3/uL Absolute Neuts (auto) (2.0-8.3) x10*3/uL Absolute Nucleated RBC (0.0-0.012) X10*3/uL Nucleated RBC % (auto) (0.0-0.2) /100WBC PT 50.8 H (9.9-13.0) SEC INR 4.3 H D (0.9-1.1) APTT 52.3 H (24.1-38.0) SEC Sodium (135-145) mmol/L Potassium (3.3-5.1) mmol/L Chloride (96-108) mmol/L Carbon Dioxide (22-29) mmol/L Anion Gap (12-20) BUN (9-16) mg/dL Creatinine (0.5-1.4) mg/dL Estim Creat Clear Calc Estimated GFR Random Glucose (60-115) mg/dL Calcium (8.4-10.2) mg/dL Total Bilirubin (0.0-1.0) mg/dL AST (5-31) U/L ALT (0-31) U/L Alkaline Phosphatase (39-117) U/L Troponin I High Sens 1104.7 H* (<3.5-17.0) ng/L Total Protein (6.5-8.0) g/dL Albumin (3.5-5.0) g/dL Urine Color Urine Appearance Urine pH (5.0-8.0) Ur Specific [place] (1.005-1.025) Urine Protein (NEG-TRACE) MG/DL Urine Glucose (UA) (NEG) MG/DL Urine Ketones (NEG) MG/DL Urine Blood (NEG) Urine Nitrite (NEG) Ur Leukocyte Esterase (NEG) Urine RBC (0) /HPF Urine WBC (0-4) /HPF Ur Squamous Epith Cells /LPF Urine Bacteria /LPF Hyaline Casts /LPF COVID-19 (ANEUDY) (Negative) COVID-19 Clin Com Influenza Type A (DANNI) (Negative) Influenza Type B (DANNI) (Negative) Influenza A & B Note ECG Data Attestation: I personally reviewed and interpreted this ECG as follows: Interpretation: 0427: Atrial fibrillation with a rate of 80, normal QRS of 94 milliseconds prolonged QTC of 530 milliseconds, no ST segment elevation, no ST segment depression, Q-waves in V1 and V2 consistent with an anterior septal wall PA which is not acute. Critical Care Time Critical Care Time Critical Care Time: Yes Total Critical Care Time: 35 Attestation: Critical Care: The patient was critically ill with a high probability of imminent or life threatening deterioration. I spent greater than 30 minutes of discontinuous time evaluating the patient,delivering critical care at the bedside, discussing and evaluating pertinent data with consultants. Critical care time does not include time spent performing separately billable procedures or teaching. Total time spent performing critical care was 35 minutes. Discharge Plan Discharge Clinical Impression: Congestive heart failure Qualifiers: Heart failure type: unspecified Heart failure chronicity: acute Qualified Code(s): I50.9 - Heart failure, unspecified Abdominal pain Qualifiers: Abdominal location: generalized Qualified Code(s): R10.84 - Generalized abdominal pain Patient Disposition: Admitted As Inpatient
[2022-03-15] MEDS: ondansetron HCL 4 MG/2 ML VIAL IVPUSH (02:45)
[2022-03-15] MEDS: Acetaminophen 325 MG TABLET 975 MG PO (02:45)
[2022-03-15] MEDS: 0.9 % Sodium Chloride 1,000 ML 500 ML IV (02:45)
--- NOTE | 2022-03-15 04:12 | ECG_ITS ---
Test Reason : abd pain Blood Pressure : / mmHG Vent. Rate : 080 BPM Atrial Rate : 000 BPM P-R Int : 000 ms QRS Dur : 094 ms QT Int : 460 ms P-R-T Axes : 000 -16 170 degrees QTc Int : 530 ms Accelerated Junctional rhythm Minimal voltage criteria for LVH, may be normal variant ( [place] product ) Anteroseptal infarct (cited on or before 09-OCT-2021) Prolonged QT Abnormal ECG When compared with ECG of 09-OCT-2021 10:45, Junctional rhythm has replaced Atrial fibrillation Referred By: Raymond Galvez Electronically Signed By:Garth Winters
[2022-03-15] MEDS: Furosemide 100 MG/10 ML VIAL 60 MG IVPUSH (04:30)
[2022-03-15 04:39] LABS: Troponin-I High Sensitivity 1094.4 ng/L (<3.5-17.0)
[2022-03-15 04:45] LABS: Appearance Urine CLEAR; Color Urine YELLOW; Glucose Urine UA NEG (NEG); Leukocyte Esterase Urine NEG (NEG); Nitrite Urine NEG (NEG); PH 6.5 (5.0-8.0); UACC Culture Trigger NO; Urine Blood 3+ (NEG); Urine Ketones NEG (NEG); Urine Protein 2+ MG/DL (NEG-TRACE)
[2022-03-15 04:53] LABS: Bacteria Urine 1+ /LPF; RBC Urine 30-49 /HPF (0); Squamous Epithelial Cell Urine 1+ /LPF
[2022-03-15 05:02] LABS: INTERNATIONAL NORM RATIO 4.3 (0.9-1.1); Prothrombin Time 50.8 SEC (9.9-13.0)
[2022-03-15 05:05] LABS: Partial Thromboplastin Time 52.3 SEC (24.1-38.0)
[2022-03-15 05:16] LABS: Troponin-I High Sensitivity 1104.7 ng/L (<3.5-17.0)
[2022-03-15 07:56] LABS: B Type Natriuretic Peptide 2247 pg/mL (<100)
[2022-03-15 07:57] VITALS: BP 123/67; PULSE 79; RESP 15; O2SAT 97
--- NOTE | 2022-03-15 08:02 | P.HPHOSP_ITS ---
History of Present Illness Date of Service: 03/15/22 <EMILIANA Gonzales - Last Filed: 03/15/22 10:03> Attending physician on admission: Rishi Fitzgerald <EMILIANA Gonzales - Last Filed: 03/15/22 10:03> Chief Complaint: Shortness of breath <EMILIANA Gonzales Last Filed: 03/15/22 10:03> This is a 71 year old female who presents to the ED with multiple complaints. She has had shortness of breath, cough, abdominal pain, and nausea. She reports her cough is productive of clear phlegm. She also reports 2-3 days of orthopnea and shortness of breath. She denies associated fever, chills or recent sick contacts. Her abdominal pain has resolved at this time and she could not describe where was located prior. Her nausea has also resolved. She does report that her Lasix was recently decreased. In the emergency department chest x-ray showed evidence of congestion so there is concern for CHF. She received a dose of IV Lasix. Her cardiac enzymes were also elevated but she denies any chest pain. For her abdominal pain, she had a CT scan which did not show any clear cause of pain. A decision was made to admit her to the hospital for further management of CHF. <EMILIANA Gonzales - Last Filed: 03/15/22 10:03> Review of Systems Review of Systems: Yes all other systems are reviewed and are negative <EMILIANA Gonzales Last Filed: 03/15/22 10:03> Constitutional: Constitutional: Denies chills and Denies fever(s) <EMILIANA Gonzales Last Filed: 03/15/22 10:03> Cardiovascular: Cardiovascular: Denies chest pain, Denies palpitations, Reports dyspnea, Reports dyspnea on exertion and Reports orthopnea <EMILIANA Pop Last Filed: 03/15/22 10:03> Respiratory: Respiratory: Reports cough, Reports dyspnea and Reports dyspnea on exertion <EMILIANA Gonzales Last Filed: 03/15/22 10:03> Gastrointestinal: Gastrointestinal: Reports abdominal pain and Denies vomiting <EMILIANA Gonzales Last Filed: 03/15/22 10:03> Endocrine: Endocrine: Denies palpitations <EMILIANA Gonzales - Last Filed: 03/15/22 10:03> [facility] Medical History: Medical History (Updated 03/15/22 @ 09:37 by EMILIANA Gonzales) Acute on chronic heart failure with reduced ejection fraction and diastolic dysfunction Amyloidosis Amyloidosis Anemia Arthritis Bladder hypertonicity CHF (congestive heart failure) Chronic atrial fibrillation Chronic heart failure with reduced ejection fraction and diastolic dysfunction Chronic HFrEF (heart failure with reduced ejection fraction) Chronic kidney disease (CKD) stage G4/A1, severely decreased glomerular filtration rate (GFR) between 15-29 mL/min/1.73 square meter and albuminuria creatinine ratio less than 30 mg/g CKD (chronic kidney disease) stage 4, GFR 15-29 ml/min Detached retina Gout Hematuria Hematuria Hemorrhoids with complication History of breast cancer HTN (hypertension) Hypercholesterolemia Hypothyroid ICD (implantable cardioverter-defibrillator) in place Ischemic cardiomyopathy Low back pain Nephrolithiasis Osteoarthritis Overweight (BMI 25.0-29.9) Pulmonary hypertension Renal cyst Thumb tendonitis Tricuspid regurgitation Urinary incontinence <EMILIANA Gonzales - Last Filed: 03/15/22 10:03> Family History: Family History Mother Diabetes Father Past heart attack Diabetes Sister Parkinsons disease <EMILIANA Gonzales - Last Filed: 03/15/22 10:03> Surgical History: Surgical History H/O abdominal hysterectomy H/O mitral valve replacement H/O mitral valve replacement with mechanical valve History of bunionectomy History of cataract surgery History of colonoscopy History of left inguinal hernia repair History of sleeve gastrectomy Mechanical heart valve present <EMILIANA Gonzales - Last Filed: 03/15/22 10:03> Social History: Social History Household Members: Children Household Members Other:: daughter Housing: House Do you presently have visiting nurse or other home services: Yes ([facility]) Alcohol intake: never Patient Tobacco Use Status: Never used Tobacco Tobacco use type: Cigarette e-Cigarette/Vaping Use: Never Used Second Hand Smoke Exposure: No Use of substances other than those prescribed or required for medical reasons: No Currently Displaying Signs/Symptoms of Drug Intoxication Withdrawal: No Any prior treatment program specific to substance use: No Have you been hit, kicked, punched, or otherwise hurt by someone within the past year? If so, by whom?: No Do you feel safe in your current relationship?: No Current Relationship Is there a partner from a previous relationship who is making you feel unsafe now?: No Are you made to feel afraid or neglected: No Spiritual Healthcare Practices: none Advance Directives: Yes Advance Directives Information Provided: Yes Advance Directives on File: Yes Advance Directives Date on File: 02/22/22 Do you have thoughts of harming others: None Do you have a plan to hurt others: No Plan Recently lost weight without trying: Yes How much weight loss: 34pounds or more Eating poorly because of decreased appetite: Yes Nutrition screen score: 7 Nutrition Risks: Anorexia and Difficulty chewing Patient : No : No Poor oral hygiene: No (dentures) service: No Current occupational status: retired Current occupation: left handed Cognitive needs: No Hearing needs: No Vision needs: No <EMILIANA Gonzales - Last Filed: 03/15/22 10:03> Meds Allergies/Adverse reactions: Allergies Allergy/AdvReac Type Severity Reaction Status Date / Time TAPE,PAPER Allergy Unknown RASH TO Uncoded 03/13/22 14:54 PAPER TAPE <EMILIANA Gonzales - Last Filed: 03/15/22 10:03> Active Medications: Current Medications Acetaminophen (Acetaminophen 325 Mg Tablet) 650 mg PO Q6H PRN PRN Reason: Pain, Mild (Pain Scale 1-3) Docusate Sodium (Docusate Sodium 100 Mg Capsule) 100 mg PO DAILY PRN PRN Reason: Constipation Furosemide (Furosemide 20 Mg/2 Ml Vial) 20 mg IVPUSH BID@0900,1800 NADINE; Protocol Pharmacy Consult (Consult Rx Perform Med Rec) 1 each MISCELLANE ONCE PRN PRN Reason: Consult order Sodium Chloride (0.9 % Sodium Chloride Flush 3 Ml Syringe) 3 ml IVFLUSH QSHIFT NADINE <EMILIANA Gonzales - Last Filed: 03/15/22 10:03> Home medications: Home Medications Medication Instructions Recorded Confirmed Last Taken Type acetaminophen 325 mg capsule 325 mg PO QID PRN 08/06/20 03/15/22 10/09/21 History (Tylenol) artifi.tears(hypromellose)(PF) 0.3 1 drp OPHTHALMIC (EYE) TID 09/03/21 03/15/22 10/21/21 History % eye drops calcium 750 mg PO DAILY 10/09/21 03/15/22 03/14/22 History rosuvastatin 10 mg tablet 10 mg PO BEDTIME 10/21/21 03/15/22 03/14/22 History trazodone 50 mg tablet 50 mg PO BEDTIME PRN 10/21/21 03/15/22 03/14/22 History warfarin 2.5 mg tablet 2.5 mg PO .COMPLEX 02/25/22 03/13/22 Unknown History docusate sodium 100 mg capsule 200 mg PO BEDTIME 03/15/22 03/15/22 03/14/22 History fluoxetine 20 mg capsule 40 mg PO DAILY 03/15/22 03/15/22 03/14/22 History potassium chloride 20 mEq 1 tab PO Q2D 03/15/22 03/15/22 Unknown History tablet,extended release(part/cryst) (Klor-Con M) vitamins A,C,J-eomk-qfxhvy 14,320 1 cap PO BID 03/15/22 03/15/22 03/14/22 History unit-226 mg-200 unit capsule (PreserVision AREDS) warfarin 2.5 mg tablet 1.25 mg PO WE 03/15/22 03/15/22 03/12/22 History warfarin 2.5 mg tablet 2.5 mg PO SUMOTUTHFRSA 03/15/22 03/15/22 03/14/22 History <EMILIANA Gonzales - Last Filed: 03/15/22 10:03> Physical Exam Vital Signs and Narrative: Vital Signs: Last Vital Signs Temp 97.7 F 03/15/22 01:30 Pulse 81 03/15/22 01:30 Resp 16 03/15/22 01:30 BP 127/78 03/15/22 01:30 Pulse Ox 98 03/15/22 01:30 BMI result Body Mass Index 20.0 <EMILIANA Gonzales - Last Filed: 03/15/22 10:03> Const: General: cooperative, comfortable, alert and awake <EMILIANA Gonzales - Last Filed: 03/15/22 10:03> Nutritional Appearance: thin <EMILIANA Gonzales - Last Filed: 03/15/22 10:03> Eyes: Other: left eye prosthesis <EMILIANA Gonzales - Last Filed: 03/15/22 10:03> Cardio: Jugular venous distension: JVD <EMILIANA Gonzales - Last Filed: 03/15/22 10:03> Rate: regular rate <EMILIANA Gonzales - Last Filed: 03/15/22 10:03> Heart sounds: Clicking heart sound present <EMILIANA Gonzales - Last Filed: 03/15/22 10:03> GI: Inspection: No distended <EMILIANA Gonzales - Last Filed: 03/15/22 10:03> Palpation (GI): Soft to palpation and nontender <EMILIANA Gonzales - Last Filed: 03/15/22 10:03> : Other: wilson draining punch colored urine <EMILIANA Gonzales - Last Filed: 03/15/22 10:03> Extrem: Other: b/l leg edema <EMILIANA Gonzales - Last Filed: 03/15/22 10:03> Results Labs CBC and Chem 7: : 03/16/22 05:49 03/16/22 05:49 <EMILIANA Gonzales - Last Filed: 03/15/22 10:03> Labs: Laboratory Results - last 24 hr 03/14/22 03/14/22 03/14/22 21:46 21:46 21:46 MCV 95.6 MCH 28.6 MCHC 29.9 L RDW 17.8 H Plt Count 126 L MPV 13.0 H Immature Gran % (Auto) 0.3 Neut % (Auto) 84.1 H Lymph % (Auto) 4.7 L Garden % (Auto) 10.4 Eos % (Auto) 0.3 Baso % (Auto) 0.2 Lymph # (Auto) 0.3 L [place] # (Auto) 0.7 Eos # (Auto) 0.0 Baso # (Auto) 0.0 Abs Immat Gran (auto) 0.02 Absolute Neuts (auto) 5.4 Absolute Nucleated RBC 0.000 Nucleated RBC % (auto) 0.0 PT INR APTT Anion Gap 15 Estim Creat Clear Calc 16.0 Estimated GFR 14 Random Glucose 100 Calcium 8.6 Total Bilirubin 0.7 AST 23 ALT 28 Alkaline Phosphatase 207 H Troponin I High Sens 1094.4 H* B-Natriuretic Peptide Total Protein 6.9 Albumin 2.9 L Urine Color Urine Appearance Urine pH Ur Specific [place] Urine Protein Urine Glucose (UA) Urine Ketones Urine Blood Urine Nitrite Ur Leukocyte Esterase Urine RBC Urine WBC Ur Squamous Epith Cells Urine Bacteria Hyaline Casts COVID-19 (ANEUDY) COVID-19 Clin Com Influenza Type A (DANNI) Influenza Type B (DANNI) Influenza A & B Note 03/15/22 03/15/22 03/15/22 00:18 00:18 04:38 MCV MCH MCHC RDW Plt Count MPV Immature Gran % (Auto) Neut % (Auto) Lymph % (Auto) Garden % (Auto) Eos % (Auto) Baso % (Auto) Lymph # (Auto) Garden # (Auto) Eos # (Auto) Baso # (Auto) Abs Immat Gran (auto) Absolute Neuts (auto) Absolute Nucleated RBC Nucleated RBC % (auto) PT INR APTT Anion Gap Estim Creat Clear Calc Estimated GFR Random Glucose Calcium Total Bilirubin AST ALT Alkaline Phosphatase Troponin I High Sens B-Natriuretic Peptide Total Protein Albumin Urine Color YELLOW Urine Appearance CLEAR Urine pH 6.5 Ur Specific [place] 1.020 Urine Protein 2+ H Urine Glucose (UA) NEG Urine Ketones NEG Urine Blood 3+ H Urine Nitrite NEG Ur Leukocyte Esterase NEG Urine RBC 30-49 H Urine WBC 1-4 Ur Squamous Epith Cells 1+ Urine Bacteria 1+ Hyaline Casts 1-4 COVID-19 (ANEUDY) Negative COVID-19 Clin Com See Note Influenza Type A (DANNI) Negative Influenza Type B (DANNI) Negative Influenza A & B Note See Note 03/15/22 03/15/22 04:51 04:51 MCV MCH MCHC RDW Plt Count MPV Immature Gran % (Auto) Neut % (Auto) Lymph % (Auto) Garden % (Auto) Eos % (Auto) Baso % (Auto) Lymph # (Auto) Garden # (Auto) Eos # (Auto) Baso # (Auto) Abs Immat Gran (auto) Absolute Neuts (auto) Absolute Nucleated RBC Nucleated RBC % (auto) PT 50.8 H INR 4.3 H D APTT 52.3 H Anion Gap Estim Creat Clear Calc Estimated GFR Random Glucose Calcium Total Bilirubin AST ALT Alkaline Phosphatase Troponin I High Sens 1104.7 H* B-Natriuretic Peptide 2247 H Total Protein Albumin Urine Color Urine Appearance Urine pH Ur Specific [place] Urine Protein Urine Glucose (UA) Urine Ketones Urine Blood Urine Nitrite Ur Leukocyte Esterase Urine RBC Urine WBC Ur Squamous Epith Cells Urine Bacteria Hyaline Casts COVID-19 (ANEUDY) COVID-19 Clin Com Influenza Type A (DANNI) Influenza Type B (DANNI) Influenza A & B Note <EMILIANA Gonzales - Last Filed: 03/15/22 10:03> Imaging Radiologist's Impressions: Impressions Chest X-Ray 03/15/22 02:35 IMPRESSION: Small pleural effusions with adjacent bibasilar opacities suggesting atelectasis. Prominent central vasculature suggesting a degree of congestion. Abdomen/Pelvis CT 03/15/22 02:41 IMPRESSION: 1. Suboptimal assessment due to motion artifact. No evidence of bowel obstruction. 2. Severe cardiomegaly. Small pleural effusions with adjacent bibasilar atelectasis. 3. Trace perihepatic fluid. Small to moderate pelvic free fluid. Fleischner guidelines were followed. <EMILIANA Gonzales - Last Filed: 03/15/22 10:03> Assessment and Plan (1) Acute on chronic heart failure with reduced ejection fraction and diastolic dysfunction: Status: Acute <EMILIANA Gonzales - Last Filed: 03/15/22 10:03> Plan This is a 71 year old female with history of severe cardiomyopathy with EF 15-2 0% s/p AICD/PM, chronic atrial fibrillation, [place] mechanical mitral valve on [place], CKD, hypothyroidism, HLD, HTN, CAD, amyloidosis who presents to the ED with shortness of breath found to be in heart failure. ?Acute on chronic HFrEF ?Patient noted to have elevated JVD, leg edema with elevated BNP 2247 ?EKG shows junctional rhythm with prolonged QTC of 530 ?Recent echo showed EF 15-20% with decreased right ventricular function, Mechanical mitral prosthetic valve and moderate to severe tricuspid regurgitation ?Will treat with IV Lasix, I/O, low-salt diet ?Obtain cardiology consult, follow BMP ?Will continue carvedilol, and isosorbide dinitrate Elevated troponin no chest pain, EKG with no significant change from previous trops chronically elevated, likely part due to decreased clearance from CKD cardiology consult pending Abdominal pain CT trace peripehatic fluid and small to moderate pelvic free fluid otherwise no other cause for abdominal pain pain has now resolved. ? CKD 4 creatinine seems to be increasing and recent baseline around 3 follow renal function closely Hyperkalemia K 5.6 will give dose of lokelma follow potassium levels hold potassium supplementation Hematuria likely secondary to traumatic wilson and supratherapeutic INR follow CBC History of mechanical mitral valve INR supratherapeutic at 4.3 hold coumadin follow INR daily, with goal between 2.5 and 3.5 thrombocytopenia chronic follow CBC History of hypothyroidism:? Continue home levothyroxine History of hypertension BP stable continue home medications hyperlipidemia:? Continue statin mood:? continue fluoxetine DVT prophylaxis on Coumadin HCP - daughter Attending: dr. Fitzgerald Code status patient wishes to be full code Due to patient's age and medical comorbidities she will likely need 2 midnight stay in the hospital for management of acute on chronic CHF with IV lasix and specialist consultation with cardiology <EMILIANA Gonzales - Last Filed: 03/15/22 10:03> Quality Stroke Does the patient have a stroke diagnosis?: No <EMILIANA Gonzales - Last Filed: 03/15/22 10:03> VTE Prior VTE?: No <EMILIANA Gonzales - Last Filed: 03/15/22 10:03> VTE Risk Level:: Medical - moderate - high <EMILIANA Gonzales - Last Filed: 03/15/22 10:03> VTE Device Contraindication: N/A - Device Ordered <EMILIANA Gonzales - Last Filed: 03/15/22 10:03> VTE Drug Contraindication: N/A - Med Ordered <EMILIANA Gonzales - Last Filed: 03/15/22 10:03>
--- NOTE | 2022-03-15 08:43 | PHA.MEDREC ---
Pharmacy Consult ? Medication Reconciliation Pharmacy has completed the medication reconciliation. Patient is taking fluoxetine 40. Spoke to daughter America at [phone]
[2022-03-15] MEDS: 0.9 % Sodium Chloride Flush 3 ML SYRINGE IVFLUSH ×3 (09:09→20:22)
[2022-03-15] MEDS: Furosemide 20 MG/2 ML VIAL IVPUSH ×2 (09:22→17:58)
--- NOTE | 2022-03-15 09:31 | PC.NURSE ---
pt denies pain. no nausea/diarrhea vss. meds given as documented.
[2022-03-15] MEDS: Sodium Zirconium Cyclosilicate 5 GM POWD.PACK PO (11:01)
--- NOTE | 2022-03-15 12:45 | PC.NURSE ---
blood tinged urine noted in wilson bag, pt denies pain/burning with urination. documented on previous shift that blood was noted in wilson after catheter was placed.
--- NOTE | 2022-03-15 13:08 | PM.CNCAR ---
History of Present Illness History of Present Illness Date of Service: 03/15/22 Chief complaint: Shortness of breath, CHF Narrative: 71-year-old female with known congestive heart failure with severe cardiomyopathy and multiple admissions the past with history of heart failure presenting for nausea and vomiting. She said she was unable to keep anything down. She also complained of some shortness of breath and chest x-ray showed some congestion and she was admitted to get some IV diuretics. She is saying she is still mildly short of breath. As mentioned she has advanced heart failure with no good options available. She also had previous mitral valve replacement and has been on Coumadin. There is some hematuria present on this admission also. [facility] Past Medical History Medical History (Updated 03/15/22 @ 09:37 by EMILIANA Gonzales) Acute on chronic heart failure with reduced ejection fraction and diastolic dysfunction Amyloidosis Amyloidosis Anemia Arthritis Bladder hypertonicity CHF (congestive heart failure) Chronic atrial fibrillation Chronic heart failure with reduced ejection fraction and diastolic dysfunction Chronic HFrEF (heart failure with reduced ejection fraction) Chronic kidney disease (CKD) stage G4/A1, severely decreased glomerular filtration rate (GFR) between 15-29 mL/min/1.73 square meter and albuminuria creatinine ratio less than 30 mg/g CKD (chronic kidney disease) stage 4, GFR 15-29 ml/min Detached retina Gout Hematuria Hematuria Hemorrhoids with complication History of breast cancer HTN (hypertension) Hypercholesterolemia Hypothyroid ICD (implantable cardioverter-defibrillator) in place Ischemic cardiomyopathy Low back pain Nephrolithiasis Osteoarthritis Overweight (BMI 25.0-29.9) Pulmonary hypertension Renal cyst Thumb tendonitis Tricuspid regurgitation Urinary incontinence Family History Family History Mother Diabetes Father Past heart attack Diabetes Sister Parkinsons disease Surgical History Surgical History H/O abdominal hysterectomy H/O mitral valve replacement H/O mitral valve replacement with mechanical valve History of bunionectomy History of cataract surgery History of colonoscopy History of left inguinal hernia repair History of sleeve gastrectomy Mechanical heart valve present Social History Social History Household Members: Family Household Members Other:: daughter Housing: House Do you presently have visiting nurse or other home services: No Alcohol intake: never Patient Tobacco Use Status: Never used Tobacco Tobacco use type: Cigarette e-Cigarette/Vaping Use: Never Used Second Hand Smoke Exposure: No Use of substances other than those prescribed or required for medical reasons: No Advance Directives: Yes Advance Directives Information Provided: Yes Advance Directives on File: Yes Advance Directives Date on File: 02/22/22 service: No Current occupational status: retired Current occupation: left handed Cognitive needs: No Hearing needs: No Vision needs: No Meds Allergies Allergy/AdvReac Type Severity Reaction Status Date / Time TAPE,PAPER Allergy Unknown RASH TO Uncoded 03/13/22 14:54 PAPER TAPE Active Medications: Current Medications Acetaminophen (Acetaminophen 325 Mg Tablet) 650 mg PO Q6H PRN PRN Reason: Pain, Mild (Pain Scale 1-3) Artificial Tears (Artificial Tears 15 Ml Drops) 1 drop EYE-BOTH TID [facility] Ascorbic Acid (Ascorbic Acid 500 Mg Tablet) 500 mg PO BID [facility] Atorvastatin Calcium (Atorvastatin Calcium 40 Mg Tablet) 40 mg PO BEDTIME [facility] Calcium Carbonate (Calcium Carbonate 500 Mg Tablet) 750 mg PO DAILY [facility] Carvedilol (Carvedilol 12.5 Mg Tablet) 12.5 mg PO BIDWM [facility]; Protocol Docusate Sodium (Docusate Sodium 100 Mg Capsule) 100 mg PO DAILY PRN PRN Reason: Constipation Docusate Sodium (Docusate Sodium 100 Mg Capsule) 200 mg PO BEDTIME [facility] Fluoxetine HCl (Fluoxetine Hcl 20 Mg Capsule) 40 mg PO DAILY [facility] Furosemide (Furosemide 20 Mg/2 Ml Vial) 20 mg IVPUSH BID@0900,1800 [facility]; Protocol Last Admin: 03/15/22 09:22 Dose: 20 mg Documented by: Isosorbide Dinitrate (Isosorbide Dinitrate 5 Mg Tablet) 5 mg PO BID [facility]; Protocol Levothyroxine Sodium 112 mcg/ (Levothyroxine Sodium 25 mcg) 137 mcg PO DAILY@0600 [facility] Omeprazole (Omeprazole 20 Mg Capsule.Dr) 20 mg PO DAILY@0630 [facility] Pharmacy Consult (Consult Rx Perform Med Rec) 1 each MISCELLANE ONCE PRN PRN Reason: Consult order Sodium Chloride (0.9 % Sodium Chloride Flush 3 Ml Syringe) 3 ml IVFLUSH QSHIFT [facility] Last Admin: 03/15/22 09:09 Dose: 3 ml Documented by: Trazodone HCl (Trazodone Hcl 50 Mg Tablet) 50 mg PO BEDTIME PRN PRN Reason: for insomnia Home Medications Medication Instructions Recorded Confirmed Last Taken Type acetaminophen 325 mg capsule 325 mg PO QID PRN 08/06/20 03/15/22 10/09/21 History (Tylenol) artifi.tears(hypromellose)(PF) 0.3 1 drp OPHTHALMIC (EYE) TID 09/03/21 03/15/22 10/21/21 History % eye drops calcium 750 mg PO DAILY 10/09/21 03/15/22 03/14/22 History rosuvastatin 10 mg tablet 10 mg PO BEDTIME 10/21/21 03/15/22 03/14/22 History trazodone 50 mg tablet 50 mg PO BEDTIME PRN 10/21/21 03/15/22 03/14/22 History warfarin 2.5 mg tablet 2.5 mg PO .COMPLEX 02/25/22 03/13/22 Unknown History docusate sodium 100 mg capsule 200 mg PO BEDTIME 03/15/22 03/15/22 03/14/22 History fluoxetine 20 mg capsule 40 mg PO DAILY 03/15/22 03/15/22 03/14/22 History potassium chloride 20 mEq 1 tab PO Q2D 03/15/22 03/15/22 Unknown History tablet,extended release(part/cryst) (Klor-Con M) vitamins A,C,E-gnve-fovsto 14,320 1 cap PO BID 03/15/22 03/15/22 03/14/22 History unit-226 mg-200 unit capsule (PreserVision AREDS) warfarin 2.5 mg tablet 1.25 mg PO WE 03/15/22 03/15/22 03/12/22 History warfarin 2.5 mg tablet 2.5 mg PO SUMOTUTHFRSA 03/15/22 03/15/22 03/14/22 History Physical Exam Vital Signs: Vital Signs: Last Vital Signs Temp 97.7 F 03/15/22 01:30 Pulse 79 03/15/22 07:57 Resp 15 03/15/22 07:57 BP 123/67 03/15/22 07:57 Pulse Ox 97 03/15/22 07:57 BMI result Body Mass Index 20.0 GENERAL APPEARANCE: in no acute distress, pleasant. Frail. NECK: no carotid bruit, no significant jugular venous distention. SKIN: no suspicious lesions, warm and dry. HEART: no murmurs, regular rate and rhythm. LUNGS: clear to auscultation bilaterally. ABDOMEN: soft, nontender. EXTREMITIES: no edema. PERIPHERAL PULSES: equal. NEUROLOGIC: No gross deficits, AAO X 3 Objective Labs and Meds Result diagrams: 03/14/22 21:46 03/14/22 21:46 Lab results: Laboratory Results - last 24 hr 03/14/22 03/14/22 03/14/22 21:46 21:46 21:46 WBC 6.4 RBC 3.88 L Hgb 11.1 L Hct 37.1 MCV 95.6 MCH 28.6 MCHC 29.9 L RDW 17.8 H Plt Count 126 L MPV 13.0 H Immature Gran % (Auto) 0.3 Neut % (Auto) 84.1 H Lymph % (Auto) 4.7 L Winston % (Auto) 10.4 Eos % (Auto) 0.3 Baso % (Auto) 0.2 Lymph # (Auto) 0.3 L Winston # (Auto) 0.7 Eos # (Auto) 0.0 Baso # (Auto) 0.0 Abs Immat Gran (auto) 0.02 Absolute Neuts (auto) 5.4 Absolute Nucleated RBC 0.000 Nucleated RBC % (auto) 0.0 PT INR APTT Sodium 139 Potassium 5.6 H Chloride 103 Carbon Dioxide 27 Anion Gap 15 BUN 78 H Creatinine 3.19 H Estim Creat Clear Calc 16.0 Estimated GFR 14 Random Glucose 100 Calcium 8.6 Total Bilirubin 0.7 AST 23 ALT 28 Alkaline Phosphatase 207 H Troponin I High Sens 1094.4 H* B-Natriuretic Peptide Total Protein 6.9 Albumin 2.9 L Urine Color Urine Appearance Urine pH Ur Specific Moran Urine Protein Urine Glucose (UA) Urine Ketones Urine Blood Urine Nitrite Ur Leukocyte Esterase Urine RBC Urine WBC Ur Squamous Epith Cells Urine Bacteria Hyaline Casts COVID-19 (ANEUDY) COVID-19 Clin Com Influenza Type A (DANNI) Influenza Type B (DANNI) Influenza A & B Note 03/15/22 03/15/22 03/15/22 00:18 00:18 04:38 WBC RBC Hgb Hct MCV MCH MCHC RDW Plt Count MPV Immature Gran % (Auto) Neut % (Auto) Lymph % (Auto) Winston % (Auto) Eos % (Auto) Baso % (Auto) Lymph # (Auto) Winston # (Auto) Eos # (Auto) Baso # (Auto) Abs Immat Gran (auto) Absolute Neuts (auto) Absolute Nucleated RBC Nucleated RBC % (auto) PT INR APTT Sodium Potassium Chloride Carbon Dioxide Anion Gap BUN Creatinine Estim Creat Clear Calc Estimated GFR Random Glucose Calcium Total Bilirubin AST ALT Alkaline Phosphatase Troponin I High Sens B-Natriuretic Peptide Total Protein Albumin Urine Color YELLOW Urine Appearance CLEAR Urine pH 6.5 Ur Specific Moran 1.020 Urine Protein 2+ H Urine Glucose (UA) NEG Urine Ketones NEG Urine Blood 3+ H Urine Nitrite NEG Ur Leukocyte Esterase NEG Urine RBC 30-49 H Urine WBC 1-4 Ur Squamous Epith Cells 1+ Urine Bacteria 1+ Hyaline Casts 1-4 COVID-19 (ANEUDY) Negative COVID-19 Clin Com See Note Influenza Type A (DANNI) Negative Influenza Type B (DANNI) Negative Influenza A & B Note See Note 03/15/22 03/15/22 04:51 04:51 WBC RBC Hgb Hct MCV MCH MCHC RDW Plt Count MPV Immature Gran % (Auto) Neut % (Auto) Lymph % (Auto) Winston % (Auto) Eos % (Auto) Baso % (Auto) Lymph # (Auto) Winston # (Auto) Eos # (Auto) Baso # (Auto) Abs Immat Gran (auto) Absolute Neuts (auto) Absolute Nucleated RBC Nucleated RBC % (auto) PT 50.8 H INR 4.3 H D APTT 52.3 H Sodium Potassium Chloride Carbon Dioxide Anion Gap BUN Creatinine Estim Creat Clear Calc Estimated GFR Random Glucose Calcium Total Bilirubin AST ALT Alkaline Phosphatase Troponin I High Sens 1104.7 H* B-Natriuretic Peptide 2247 H Total Protein Albumin Urine Color Urine Appearance Urine pH Ur Specific Moran Urine Protein Urine Glucose (UA) Urine Ketones Urine Blood Urine Nitrite Ur Leukocyte Esterase Urine RBC Urine WBC Ur Squamous Epith Cells Urine Bacteria Hyaline Casts COVID-19 (ANEUDY) COVID-19 Clin Com Influenza Type A (DANNI) Influenza Type B (DANNI) Influenza A & B Note Imaging Radiologist's impression: Impressions Chest X-Ray 03/15/22 02:35 IMPRESSION: Small pleural effusions with adjacent bibasilar opacities suggesting atelectasis. Prominent central vasculature suggesting a degree of congestion. Abdomen/Pelvis CT 03/15/22 02:41 IMPRESSION: 1. Suboptimal assessment due to motion artifact. No evidence of bowel obstruction. 2. Severe cardiomegaly. Small pleural effusions with adjacent bibasilar atelectasis. 3. Trace perihepatic fluid. Small to moderate pelvic free fluid. Fleischner guidelines were followed. Assessment and Plan (1) Acute on chronic heart failure with reduced ejection fraction and diastolic dysfunction: Status: Acute Plan Pleasant 71 year female with acute on chronic congestive heart failure. She has background of cardiomyopathy with severely reduced ejection fraction. She also had mitral valve replacement in the past with mechanical valve and has been on Coumadin. This on which way noticed which could be related to [place] placement. Overall clinically she does not look significantly volume overloaded. Can potentially be changed to oral diuretics tomorrow. Continue medications otherwise. Thank you for allowing me to participate in the care of your patient. Please feel free to contact me if you have any questions. Procedures Date of Service Date of Service: 03/15/22
[2022-03-15 16:00] VITALS: BP 120/69; PULSE 84; RESP 18; TEMP 37.2; O2SAT 97
--- NOTE | 2022-03-15 16:20 | PC.NURSE ---
Report given to OTTO Sabillon. pt will be transferred to room 373 by bonded structures repairer.
[2022-03-15 17:20] VITALS: BMI 20.2
[2022-03-15] MEDS: carvediloL 12.5 MG TABLET PO (17:58)
[2022-03-15] MEDS: Artificial Tears 15 ML DROPS 1 DROP EYE-BOTH ×2 (17:59→20:22)
[2022-03-15 19:16] VITALS: BP 122/70; PULSE 77; RESP 15; TEMP 36.9; O2SAT 95
[2022-03-15] MEDS: Docusate Sodium 100 MG CAPSULE 200 MG PO (20:21)
[2022-03-15] MEDS: Isosorbide Dinitrate 5 MG TABLET PO (20:21)
[2022-03-15] MEDS: Atorvastatin Calcium 40 MG TABLET PO (20:21)
[2022-03-15] MEDS: traZODone HCL 50 MG TABLET PO (20:22)
[2022-03-15] MEDS: Ascorbic Acid 500 MG TABLET PO (20:22)
[2022-03-15 23:30] VITALS: BP 102/57; PULSE 81; RESP 16; TEMP 36.3; O2SAT 93
[2022-03-16 03:21] VITALS: BP 108/55; PULSE 93; RESP 16; TEMP 36.6; O2SAT 93
[2022-03-16] MEDS: Levothyroxine Sodium 112 MCG, Levothyroxine Sodium 25 MCG 137 MCG PO (05:42)
[2022-03-16] MEDS: Omeprazole 20 MG CAPSULE.DR PO (05:43)
[2022-03-16 06:51] LABS: INTERNATIONAL NORM RATIO 3.9 (0.9-1.1)
[2022-03-16 07:01] LABS: Hematocrit 36.1 % (37.0-47.0); Hemoglobin 10.9 g/dl (12.0-16.0); Mean Corpuscular HGB Conc 30.2 g/dl (31.0-35.0); Mean Corpuscular Hemoglobin 28.8 pg (27.0-33.0); Mean Corpuscular Volume 95.3 fL (80.0-98.0); Mean Platelet Volume 12.8 fL (9.4-12.3); Platelet Count 131 X10*3/uL (160-400); Red Blood Count 3.79 X10*6/uL (4.20-5.50); Red Cell Distribution Width 17.8 % (11.0-16.0); White Blood Count 4.3 X10*3/uL (4.8-10.8)
[2022-03-16 07:14] LABS: Anion Gap 14 (12-20); Blood Urea Nitrogen 80 mg/dL (9-16); Calcium 8.1 mg/dL (8.4-10.2); Carbon Dioxide 27 mmol/L (22-29); Chloride 103 mmol/L (96-108); Creatinine Clr Calc Pharmacy 16.3; Estimated Glomerular Filt Rate 15; Glucose Random 76 mg/dL (60-115); Potassium 4.9 mmol/L (3.3-5.1); Sodium 139 mmol/L (135-145)
[2022-03-16 07:59] VITALS: BP 107/64; PULSE 80; RESP 20; TEMP 36.8; O2SAT 91
--- NOTE | 2022-03-16 08:36 | HO.PM.IMPN ---
Subjective Subjective Date of Service: 03/16/22 Interval History: Seen in f/u for CHF exacerbation Feels better, less sob, hematuria related to wilson placement Review of Systems hematuria, no sob, no chest pain Physical Exam Vital Signs: Vital Signs: Last Vital Signs Temp 98.3 F 03/16/22 07:59 Pulse 80 03/16/22 07:59 Resp 20 03/16/22 07:59 BP 107/64 03/16/22 07:59 Pulse Ox 91 L 03/16/22 07:59 BMI result Body Mass Index 20.2 Const: Other: General: AO X 3, no acute distress Resp: some rales at bases, 1+ leg edema CVS: S1,S2,RRR GI: +BS, NT, no distention Skin: No rash Neuro: motor grossly intact Psych: appropriate affect Objective Data Active Medications Acetaminophen (Acetaminophen 325 Mg Tablet) 650 mg PO Q6H PRN PRN Reason: Pain, Mild (Pain Scale 1-3) Artificial Tears (Artificial Tears 15 Ml Drops) 1 drop EYE-BOTH TID [facility] Last Admin: 03/15/22 20:22 Dose: 1 drop Documented by: KASIA Ascorbic Acid (Ascorbic Acid 500 Mg Tablet) 500 mg PO BID [facility] Last Admin: 03/15/22 20:22 Dose: 500 mg Documented by: KASIA Atorvastatin Calcium (Atorvastatin Calcium 40 Mg Tablet) 40 mg PO BEDTIME [facility] Last Admin: 03/15/22 20:21 Dose: 40 mg Documented by: KASIA Calcium Carbonate (Calcium Carbonate 500 Mg Tablet) 750 mg PO DAILY [facility] Carvedilol (Carvedilol 12.5 Mg Tablet) 12.5 mg PO BIDWM [facility]; Protocol Last Admin: 03/15/22 17:58 Dose: 12.5 mg Documented by: YOLY Docusate Sodium (Docusate Sodium 100 Mg Capsule) 100 mg PO DAILY PRN PRN Reason: Constipation Docusate Sodium (Docusate Sodium 100 Mg Capsule) 200 mg PO BEDTIME [facility] Last Admin: 03/15/22 20:21 Dose: 200 mg Documented by: KASIA Fluoxetine HCl (Fluoxetine Hcl 20 Mg Capsule) 40 mg PO DAILY [facility] Furosemide (Furosemide 20 Mg/2 Ml Vial) 20 mg IVPUSH BID@0900,1800 [facility]; Protocol Last Admin: 03/15/22 17:58 Dose: 20 mg Documented by: YOLY Isosorbide Dinitrate (Isosorbide Dinitrate 5 Mg Tablet) 5 mg PO BID [facility]; Protocol Last Admin: 03/15/22 20:21 Dose: 5 mg Documented by: KASIA Comments: [id number] Levothyroxine Sodium 112 mcg/ (Levothyroxine Sodium 25 mcg) 137 mcg PO DAILY@0600 [facility] Last Admin: 03/16/22 05:42 Dose: 137 mcg Documented by: KASIA Omeprazole (Omeprazole 20 Mg Capsule.) 20 mg PO DAILY@0630 [facility] Last Admin: 03/16/22 05:43 Dose: 20 mg Documented by: KASIA Pharmacy Consult (Consult Rx Perform Med Rec) 1 each MISCELLANE ONCE PRN PRN Reason: Consult order Sodium Chloride (0.9 % Sodium Chloride Flush 3 Ml Syringe) 3 ml IVFLUSH QSHIFT [facility] Last Admin: 03/15/22 20:22 Dose: 3 ml Documented by: KASIA Trazodone HCl (Trazodone Hcl 50 Mg Tablet) 50 mg PO BEDTIME PRN PRN Reason: for insomnia Last Admin: 03/15/22 20:22 Dose: 50 mg Documented by: KASIA Labs CBC & Chem 7: 03/16/22 05:49 03/16/22 05:49 Labs: Laboratory Results - last 24 hr 03/14/22 03/16/22 03/16/22 21:46 05:49 05:49 Hgb 11.1 L 10.9 L MCV 95.3 MCH 28.8 MCHC 30.2 L RDW 17.8 H Plt Count 131 L MPV 12.8 H Absolute Nucleated RBC 0.000 Nucleated RBC % (auto) 0.0 PT INR Anion Gap 14 Estim Creat Clear Calc 16.3 Estimated GFR 15 Random Glucose 76 Calcium 8.1 L 03/16/22 05:49 Hgb MCV MCH MCHC RDW Plt Count MPV Absolute Nucleated RBC Nucleated RBC % (auto) PT 46.0 H INR 3.9 H Anion Gap Estim Creat Clear Calc Estimated GFR Random Glucose Calcium Assessment and Plan (1) Acute on chronic heart failure with reduced ejection fraction and diastolic dysfunction: Status: Acute Plan 71 year old female with history of severe cardiomyopathy with EF 15-20% s/p AICD/PM, chronic atrial fibrillation, [place] mechanical mitral valve on Cou[place], CKD, hypothyroidism, HLD, HTN, CAD, amyloidosis who presents to the ED with shortness of breath found to be in heart failure. Acute on chronic HFrEF--clinically responding to diuretic therapy change to oral Lasix today per cardiology recommendation.. Continue Coreg, Imdur Elevated troponin no chest pain, EKG with no significant change from previous trops chronically elevated, likely part due to decreased clearance from CKD, no further testing Abdominal pain CT trace peripehatic fluid and small to moderate pelvic free fluid otherwise no other cause for abdominal pain pain has now resolved. No further w/u ? CKD 4 creatinine is better and closer to baseline Hyperkalemia--resolved after Lokelma, K is 4.9 now down from 5.6 Hematuria likely secondary to traumatic wilson and supratherapeutic INR No signficant shift in H/H History of mechanical mitral valve INR supratherapeutic at 3.9 today hold coumadin follow INR daily, with goal between 2.5 and 3.5 thrombocytopenia chronic follow CBC History of hypothyroidism:? Continue home levothyroxine History of hypertension BP stable continue home medications hyperlipidemia:? Continue statin mood:? continue fluoxetine DVT prophylaxis on Coumadin HCP - daughter Code status patient wishes to be full code Need inpatient due to exacerbation of heart failure requiring IV diuretics and need for monitoring of electrolytes Quality Stroke Does the patient have a stroke diagnosis?: No VTE Prior VTE?: No VTE Risk Level:: Medical - moderate - high VTE Device Contraindication: N/A - Device Ordered VTE Drug Contraindication: N/A - Med Ordered
[2022-03-16] MEDS: FLUoxetine HCl 20 MG CAPSULE 40 MG PO (09:26)
[2022-03-16] MEDS: carvediloL 12.5 MG TABLET PO ×2 (09:26→16:22)
[2022-03-16] MEDS: Isosorbide Dinitrate 5 MG TABLET PO ×2 (09:26→20:09)
[2022-03-16] MEDS: Artificial Tears 15 ML DROPS 1 DROP EYE-BOTH ×3 (09:26→20:10)
[2022-03-16] MEDS: 0.9 % Sodium Chloride Flush 3 ML SYRINGE IVFLUSH ×4 (09:26→23:09)
[2022-03-16] MEDS: Ascorbic Acid 500 MG TABLET PO ×2 (09:26→20:08)
[2022-03-16 10:53] VITALS: BP 91/47; PULSE 81; RESP 19; TEMP 37; O2SAT 94
--- NOTE | 2022-03-16 11:31 | MHC.CM.PN ---
IMM 03/16/22, EMR REVIEWED, PT ADMITTED W/LOWER BACK PAIN, CM MET W/PT WHO IS A&OX3, PT REPORTS SHE LIVES W/HER DTRT ARLENE AND CEDRIC WHO ARE PT'S ADULT FOSTER FAMILY AND PROVIDE ANY ASSISTANCE SHE NEEDS, PT ALSO REPORTS A [facility] NURSE WHO DOES HER [facility] INR'S , CM TO VERIFY ONCE [facility] OPENS ON THURSDAY, PT REPORTS USING A WALKER AND IS CURRENTLY WEARING HER LIFELINE PENDANT, PCP VERIFIED RINKU PAZ, HCP ON FILE FROM PREVIOUS ADMIT AND PT REPORTS SHE HAS HAD COVID VACCINE X3 (Bid Nerd/MODERNA). PT DOES NOT ANTIC ANY NEEDS UPON D/C HOWEVER WOULD BE AGREEABLE TO HOME PT IF RECOMMENDED, NO PREFERENCE ON VNA SERVICE THAT WOULD PROVIDE PT. D/C PLAN: HOME W/RESUMP OF ADULT FOSTER CARE, [facility] RN FOR WKLY INR'S AND FAMILY FOR TRANSPORT
[2022-03-16 15:44] VITALS: BP 103/55; PULSE 81; RESP 18; TEMP 37.1; O2SAT 96
[2022-03-16] MEDS: guaiFENesin 100 MG/5 ML LIQUID PO ×2 (16:22→23:08)
[2022-03-16 18:40] VITALS: BP 106/59; PULSE 76; RESP 18; TEMP 37; O2SAT 95
[2022-03-16] MEDS: Atorvastatin Calcium 40 MG TABLET PO (20:07)
[2022-03-16] MEDS: Docusate Sodium 100 MG CAPSULE 200 MG PO (20:08)
[2022-03-16] MEDS: Furosemide 20 MG TABLET PO (20:08)
[2022-03-16] MEDS: traZODone HCL 50 MG TABLET PO (20:08)
[2022-03-16 23:44] VITALS: BP 116/63; PULSE 80; RESP 19; TEMP 36.4; O2SAT 94
[2022-03-17 03:29] VITALS: BP 150/83; PULSE 81; RESP 18; TEMP 36.3; O2SAT 90
[2022-03-17] MEDS: Omeprazole 20 MG CAPSULE.DR PO (05:32)
[2022-03-17] MEDS: Levothyroxine Sodium 112 MCG, Levothyroxine Sodium 25 MCG 137 MCG PO (05:32)
--- NOTE | 2022-03-17 06:01 | MHC.PIE ---
p; c observer noted 6 beats v tach i; dr kirby notified - new labs ordered e; will cont to monitor
[2022-03-17 06:26] LABS: Anion Gap 13 (12-20); Blood Urea Nitrogen 85 mg/dL (9-16); Calcium 8.1 mg/dL (8.4-10.2); Carbon Dioxide 29 mmol/L (22-29); Chloride 102 mmol/L (96-108); Creatinine Clr Calc Pharmacy 16.1; Estimated Glomerular Filt Rate 14; Glucose Random 79 mg/dL (60-115); Magnesium 2.1 mg/dL (1.6-2.6); Potassium 5.1 mmol/L (3.3-5.1); Sodium 139 mmol/L (135-145)
[2022-03-17 06:27] LABS: INTERNATIONAL NORM RATIO 2.7 (0.9-1.1); Prothrombin Time 31.3 SEC (9.9-13.0)
[2022-03-17 08:00] VITALS: BP 104/62; PULSE 80; RESP 20; TEMP 37.1; O2SAT 99
[2022-03-17] MEDS: carvediloL 12.5 MG TABLET PO ×2 (09:40→18:36)
[2022-03-17] MEDS: Furosemide 20 MG TABLET PO ×2 (09:40→18:36)
[2022-03-17] MEDS: Ascorbic Acid 500 MG TABLET PO ×2 (09:41→21:45)
[2022-03-17] MEDS: Artificial Tears 15 ML DROPS 1 DROP EYE-BOTH ×3 (09:41→21:46)
[2022-03-17] MEDS: Isosorbide Dinitrate 5 MG TABLET PO ×2 (09:41→21:45)
[2022-03-17] MEDS: 0.9 % Sodium Chloride Flush 3 ML SYRINGE IVFLUSH ×2 (09:41→17:40)
[2022-03-17] MEDS: FLUoxetine HCl 20 MG CAPSULE 40 MG PO (09:41)
[2022-03-17] MEDS: guaiFENesin 100 MG/5 ML LIQUID PO (10:01)
[2022-03-17 11:37] VITALS: BP 110/64; PULSE 81; RESP 18; TEMP 36.4; O2SAT 95
--- NOTE | 2022-03-17 12:40 | HO.PM.IMPN ---
Subjective Subjective Date of Service: 03/17/22 Review of Systems Seen in f/u for CHF exacerbation Feels better, less sob, hematuria related to wilson placement, CBI Physical Exam Vital Signs: Vital Signs: Last Vital Signs Temp 97.5 F 03/17/22 11:37 Pulse 81 03/17/22 11:37 Resp 18 03/17/22 11:37 BP 110/64 03/17/22 11:37 Pulse Ox 95 03/17/22 11:37 BMI result Body Mass Index 20.2 Appearing in no acute distress lung sounds are clear to auscultation heart regular rate rhythm, clear S1, S2 positive bowel sounds, abdomen is soft, nontender neuro patient is alert x3, no focal deficits Wilson cath with hematuria Objective Data Active Medications Acetaminophen (Acetaminophen 325 Mg Tablet) 650 mg PO Q6H PRN PRN Reason: Pain, Mild (Pain Scale 1-3) Artificial Tears (Artificial Tears 15 Ml Drops) 1 drop EYE-BOTH TID [facility] Last Admin: 03/17/22 09:41 Dose: 1 drop Documented by: DENISE Ascorbic Acid (Ascorbic Acid 500 Mg Tablet) 500 mg PO BID [facility] Last Admin: 03/17/22 09:41 Dose: 500 mg Documented by: DENISE Atorvastatin Calcium (Atorvastatin Calcium 40 Mg Tablet) 40 mg PO BEDTIME [facility] Last Admin: 03/16/22 20:07 Dose: 40 mg Documented by: SABRINA Calcium Carbonate (Calcium Carbonate 500 Mg Tablet) 750 mg PO DAILY [facility] Last Admin: 03/17/22 09:41 Dose: 750 mg Documented by: DENISE Carvedilol (Carvedilol 12.5 Mg Tablet) 12.5 mg PO BIDWM [facility]; Protocol Last Admin: 03/17/22 09:40 Dose: 12.5 mg Documented by: DENISE Docusate Sodium (Docusate Sodium 100 Mg Capsule) 100 mg PO DAILY PRN PRN Reason: Constipation Docusate Sodium (Docusate Sodium 100 Mg Capsule) 200 mg PO BEDTIME [facility] Last Admin: 03/16/22 20:08 Dose: 200 mg Documented by: SABRINA Fluoxetine HCl (Fluoxetine Hcl 20 Mg Capsule) 40 mg PO DAILY [facility] Last Admin: 03/17/22 09:41 Dose: 40 mg Documented by: DENISE Furosemide (Furosemide 20 Mg Tablet) 20 mg PO BID@0900,1800 [facility]; Protocol Guaifenesin (Guaifenesin 100 Mg/5 Ml Liquid) 5 ml PO Q6H PRN PRN Reason: Cough Last Admin: 03/17/22 10:01 Dose: 5 ml Documented by: DENISE Isosorbide Dinitrate (Isosorbide Dinitrate 5 Mg Tablet) 5 mg PO BID [facility]; Protocol Last Admin: 03/17/22 09:41 Dose: 5 mg Documented by: DENISE Levothyroxine Sodium 112 mcg/ (Levothyroxine Sodium 25 mcg) 137 mcg PO DAILY@0600 [facility] Last Admin: 03/17/22 05:32 Dose: 137 mcg Documented by: SABRINA Omeprazole (Omeprazole 20 Mg Capsule.) 20 mg PO DAILY@0630 [facility] Last Admin: 03/17/22 05:32 Dose: 20 mg Documented by: SABRINA Pharmacy Consult (Consult Rx Perform Med Rec) 1 each MISCELLANE ONCE PRN PRN Reason: Consult order Sodium Chloride (0.9 % Sodium Chloride Flush 3 Ml Syringe) 3 ml IVFLUSH QSAKFT [facility] Last Admin: 03/17/22 09:41 Dose: 3 ml Documented by: DENISE Trazodone HCl (Trazodone Hcl 50 Mg Tablet) 50 mg PO BEDTIME PRN PRN Reason: for insomnia Last Admin: 03/16/22 20:08 Dose: 50 mg Documented by: SABRINA Labs CBC & Chem 7: 03/16/22 05:49 03/17/22 05:34 Labs: Laboratory Results - last 24 hr 03/17/22 03/17/22 05:34 05:34 PT 31.3 H INR 2.7 H Anion Gap 13 Estim Creat Clear Calc 16.1 Estimated GFR 14 Random Glucose 79 Calcium 8.1 L Magnesium 2.1 Assessment and Plan (1) Acute on chronic heart failure with reduced ejection fraction and diastolic dysfunction: Status: Acute Plan 71 year old female with history of severe cardiomyopathy with EF 15-20% s/p AICD/PM, chronic atrial fibrillation, [place] mechanical mitral valve on [place], CKD, hypothyroidism, HLD, HTN, CAD, amyloidosis who presents to the ED with shortness of breath found to be in heart failure. Hematuria, worse today with clots likely secondary to traumatic wilson and supratherapeutic INR Check urology consult start CBI History of mechanical mitral valve. INR 2.7 today INR supratherapeutic, warfarin has been on hold now with hematuria will likely need heparin follow INR daily, with goal between 2.5 and 3.5 Acute on chronic HFrEF clinically responding to diuretic therapy change to oral Lasix today per cardiology recommendation. Continue Coreg, Imdur Elevated troponin no chest pain, EKG with no significant change from previous trops chronically elevated, likely part due to decreased clearance from CKD, no further testing CKD 4 creatinine is better and closer to baseline Hyperkalemia resolved after Lokelma, K is 4.9 now down from 5.6 thrombocytopenia chronic follow CBC History of hypothyroidism? Continue home levothyroxine History of hypertension BP stable continue home medications hyperlipidemia? Continue statin mood continue fluoxetine DVT prophylaxis on Coumadin, hold HCP - daughter Attending Dr. Turcios Full code Need inpatient due to exacerbation of heart failure requiring IV diuretics and need for monitoring of electrolytes and worsening hematuria requiring CBI Quality Stroke Does the patient have a stroke diagnosis?: No VTE Prior VTE?: No VTE Risk Level:: Medical - moderate - high VTE Device Contraindication: N/A - Device Ordered VTE Drug Contraindication: N/A - Med Ordered
[2022-03-17 12:53] LABS: Hematocrit 35.6 % (37.0-47.0); Hemoglobin 10.6 g/dl (12.0-16.0); Mean Corpuscular HGB Conc 29.8 g/dl (31.0-35.0); Mean Corpuscular Hemoglobin 29.1 pg (27.0-33.0); Mean Corpuscular Volume 97.8 fL (80.0-98.0); Mean Platelet Volume 11.9 fL (9.4-12.3); Platelet Count 113 X10*3/uL (160-400); Red Blood Count 3.64 X10*6/uL (4.20-5.50); Red Cell Distribution Width 17.9 % (11.0-16.0); White Blood Count 5.4 X10*3/uL (4.8-10.8)
--- NOTE | 2022-03-17 12:59 | P.PNCA_ITS ---
Subjective Subjective Date of Service: 03/17/22 <GEOVANNY Britton - Last Filed: 03/17/22 13:23> 03/17/22 <Lonnie Estrella MD - Last Filed: 03/17/22 17:12> Principal diagnosis: acute on chronic CHF, hematuria, mechanical Mitral valve <GEOVANNY Britton - Last Filed: 03/17/22 13:23> Interval history: Cardiology follow up for the above. Seen at 1100. Today she is observed sitting in recliner. Appears chronically ill but in no acute distress. Denies feeling sob. Has a nonproductive cough. No chest pains or palpitations. Denies any further abdominal pain, nausea or vomiting. Legs with trace edema. Wilson in place - katarzyna blood in collection bag. <GEOVANNY Britton - Last Filed: 03/17/22 13:23> Review of Systems Review of Systems as above <GEOVANNY Britton - Last Filed: 03/17/22 13:23> Yes all other systems are reviewed and are negative <GEOVANNY Britton - Last Filed: 03/17/22 13:23> Physical Exam Vital Signs: Last Vital Signs Temp 97.5 F 03/17/22 11:37 Pulse 81 03/17/22 11:37 Resp 18 03/17/22 11:37 BP 110/64 03/17/22 11:37 Pulse Ox 95 03/17/22 11:37 BMI result Body Mass Index 20.2 <GEOVANNY Britton - Last Filed: 03/17/22 13:23> Const General: cooperative, no acute distress, alert and awake <GEOVANNY Britton - Last Filed: 03/17/22 13:23> Orientation/consciousness: patient oriented x3 <GEOVANNY Britton Last Filed: 03/17/22 13:23> Neck Neck: Yes normal visual inspection and Yes no JVD <GEOVANNY Britton Last Filed: 03/17/22 13:23> Resp Effort & Inspection: normal respiratory effort and able to speak in complete sentences <GEOVANNY Britotn - Last Filed: 03/17/22 13:23> Auscultation: clear to auscultation bilaterally, no rales (mild coarseness to bases), no rhonchi and no wheezes <Melissa FryeMARGARET - Last Filed: 03/17/22 13:23> Cardio Rate: regular rate <Melissa FryeJEANMARIE - Last Filed: 03/17/22 13:23> Rhythm: abnormal rhythm <Melissa FryeJEANMARIE - Last Filed: 03/17/22 13:23> Heart sounds: S1 normal heart sound present, S2 normal heart sound present and Clicking heart sound present (mitral valve - crisp click present) <Melissa FryeJEANMARIE - Last Filed: 03/17/22 13:23> Peripheral pulses: Peripheral pulses 2+ throughout <Melissa FryeJEANMARIE - Last Filed: 03/17/22 13:23> GI Other: nontender to palpation <Melissa FryeJEANMARIE - Last Filed: 03/17/22 13:23> Inspection: Yes normal to inspection <Melissa FryeJEANMARIE - Last Filed: 03/17/22 13:23> Neuro General: patient oriented x3 <Melissa FryeJEANMARIE - Last Filed: 03/17/22 13:23> Extrem Other: trace leg edma <Melissa FryeJEANMARIE - Last Filed: 03/17/22 13:23> General: Yes normal to inspection <Melissa FryeJEANMARIE - Last Filed: 03/17/22 13:23> Objective Labs and Meds Result diagrams: : 03/17/22 15:41 03/17/22 05:34 <Melissa FryeJEANMARIE - Last Filed: 03/17/22 13:23> Lab results: Laboratory Results - last 24 hr 03/17/22 03/17/22 03/17/22 05:34 05:34 05:34 WBC 5.4 RBC 3.64 L Hgb 10.6 L Hct 35.6 L MCV 97.8 MCH 29.1 MCHC 29.8 L RDW 17.9 H Plt Count 113 L MPV 11.9 Absolute Nucleated RBC 0.000 Nucleated RBC % (auto) 0.0 PT 31.3 H INR 2.7 H Sodium 139 Potassium 5.1 Chloride 102 Carbon Dioxide 29 Anion Gap 13 BUN 85 H Creatinine 3.19 H Estim Creat Clear Calc 16.1 Estimated GFR 14 Random Glucose 79 Calcium 8.1 L Magnesium 2.1 <GEOVANNY Britton - Last Filed: 03/17/22 13:23> Progress Note: A&P Assessment and plan (1) Acute on chronic heart failure with reduced ejection fraction and diastolic dysfunction: Status: Acute <GEOVANNY Britton - Last Filed: 03/17/22 13:23> Assessment and Plan: Admit with abdominal pain, nausea, vomiting without finding which has resolved. Also reported increased sob. BNP elevated to 2247 which is high for her. CXR suggested mild central vascular congestion. On exam she did not appear very fluid overloaded. She was treated for acute on chronic systolic and diastolic HF. Initially given IV lasix then transitioned over to PO. Fluid balance neg 710cc. On exam today she appears euvolemic. Sat 99% on RA. Last echo 09/04/21 shows EF 15-20%, mild to mod decrease in RVSF, mechanical Mitral valve functioning normally, mod to severe TR, mild to mod pulm HTN. She has known ischemic CMP, single lead ICD and advanced heart failure. She also has advanced CKD with Cr 3.19 today. She needs to continue on her usual HF medications including carvedilol, isordil, aspirin, atorvastatin, Lasix. will increase her Lasix back to 20mg bid which is her home dose. Continue to monitor for HF symptoms during admit. <GEOVANNY Britton - Last Filed: 03/17/22 13:23> Admit with abdominal pain, nausea, vomiting without finding which has resolved. Also reported increased sob. BNP elevated to 2247 which is high for her. CXR suggested mild central vascular congestion. On exam she did not appear very fluid overloaded. She was treated for acute on chronic systolic and diastolic HF. Initially given IV lasix then transitioned over to PO. Fluid balance neg 710cc. On exam today she appears euvolemic. Sat 99% on RA. Last echo 09/04/21 shows EF 15-20%, mild to mod decrease in RVSF, mechanical Mitral valve functioning normally, mod to severe TR, mild to mod pulm HTN. She has known ischemic CMP, single lead ICD and advanced heart failure. She also has advanced CKD with Cr 3.19 today. She needs to continue on her usual HF medications including carvedilol, isordil, aspirin, atorvastatin, Lasix. will increase her Lasix back to 20mg bid which is her home dose. Continue to monitor for HF symptoms during admit. Patient seen and examined. Case discussed with Melissa diana here. Patient does not have any significant symptoms of heart failure. Clinically de león s not appear to be fluid overloaded. Switch to her usual dose of Lasix 20 mg b.i.d.. Overall prognosis extremely guarded given her advanced kidney dysfunction, significant anemia, amyloidosis, frailty, severe tricuspid regurgitation as well as mechanical mitral valve. Continue current Vasodilat ors therapy. It aggressively treat her anemia. <Lonnie Estrella MD - Last Filed: 03/17/22 17:12> (2) ICD (implantable cardioverter-defibrillator) in place: Status: Acute <GEOVANNY Britton - Last Filed: 03/17/22 13:23> (3) Hematuria: Status: Acute <GEOVANNY Britton - Last Filed: 03/17/22 13:23> Assessment and Plan: Katarzyna blood seen in wilson bag. INR 4.3 on admit, down to 2.7 today. Coumadin on hold. She needs to have urgent urology referral, hospitalist notified. May need CBI. She has mechanical mitral valve and needs to continue on anticoagulation as soon as it is appropriate. Plan restart of coumadin when able. INR goal 2.5-3.5. May need heparin drip. Continue aspirin. <GEOVANNY Britton - Last Filed: 03/17/22 13:23> Katarzyna blood seen in wilson bag. INR 4.3 on admit, down to 2.7 today. Coumadin on hold. She needs to have urgent urology referral, hospitalist notified. May need CBI. She has mechanical mitral valve and needs to continue on anticoagulation as soon as it is appropriate. Plan restart of coumadin when able. INR goal 2.5-3.5. May need heparin drip. Continue aspirin. Significant hematuria. Consider urgent urology consult. Currently Coumadin is hold however would not hold for prolonged period of time. Question traumatic in nature and may clear with CBI. Once hematuria resolves all resume warfarin as soon as possible. If INR is below 2, consider starting IV heparin. <Lonnie Estrella MD - Last Filed: 03/17/22 17:12> (4) H/O mitral valve replacement: Status: Acute <GEOVANNY Britton - Last Filed: 03/17/22 13:23> Assessment and Plan: Mechanical <GEOVANNY Britton - Last Filed: 03/17/22 13:23> (5) Ischemic cardiomyopathy: Status: Acute <GEOVANNY Britton - Last Filed: 03/17/22 13:23> (6) Chronic atrial fibrillation: Status: Acute <GEOVANNY Britton Last Filed: 03/17/22 13:23> Assessment and Plan: Heart rate controlled with carvedilol. Normally on coumadin for anticoagulation. <GEOVANNY Britton - Last Filed: 03/17/22 13:23> Time Spent With Patient Time: Total time spent is greater than 50% in coordination of care (as documented) at patient's floor/unit and/or counseling patient: 24 <GEOVANNY Britton - Last Filed: 03/17/22 13:23> Progress Note: Quality Stroke Does the patient have a stroke diagnosis?: No <GEOVANNY Britton - Last Filed: 03/17/22 13:23> Procedures Date of Service Date of Service: 03/17/22 <GEOVANNY Britton - Last Filed: 03/17/22 13:23>
[2022-03-17] MEDS: LORazepam 0.5 MG TABLET 0.25 MG PO (13:34)
--- NOTE | 2022-03-17 15:41 | MHC.CLN ---
NUTRITION CONSULT FOR SKIN ISSUES. PATIENT WITH REDDENED COCCYX. DIET=2 GRAM SODIUM. INTAKE APPEARS FAIR TO GOOD, EATING 25-100% OF MEALS. WEIGHT LOSS X 6 MONTHS=-9.9%. WEIGHT LOSS X 1 YEAR=-12.8%. SUSPECT DIURESIS AND DX CHF CONTRIBUTORS TO WEIGHT VARIANCE. NO ADDITIONAL NUTRITION INTERVENTIONS.
[2022-03-17 15:59] VITALS: BP 133/76; PULSE 82; RESP 18; TEMP 36.1; O2SAT 97
[2022-03-17 16:11] LABS: Hematocrit 36.4 % (37.0-47.0); Mean Corpuscular HGB Conc 30.2 g/dl (31.0-35.0); Mean Corpuscular Hemoglobin 28.9 pg (27.0-33.0); Mean Corpuscular Volume 95.8 fL (80.0-98.0); Mean Platelet Volume 11.3 fL (9.4-12.3); Platelet Count 136 X10*3/uL (160-400); White Blood Count 6.1 X10*3/uL (4.8-10.8)
--- NOTE | 2022-03-17 16:21 | MHC.CM.PN ---
PT NOT YET MEDICALLY CLEARED. PER MD ROUNDS, DC EXPECTED IN 1-2 DAYS DCP REMAINS RETURN HOME WITH DAUGHTER/SERVICE ORDER DISPATCHER DAUGHTER TO TRANSPORT
--- NOTE | 2022-03-17 16:51 | PC.NURSE ---
Patient with wilson with hematuria. Large amount of urine leaking around catheter with large clots. Mininal output in wilson bag. Bladder scanned for 320cc. Notified provider and CBC and CBI ordered as well as urology consult. Wilson removed to insert 3 way cath. Many attempts to insert 3 way cath by [address] Joy notified. Patient feeling some bladder pressure. Feeling anxious. Reassured patient and 1 time po ativan ordered and given with some effect. Awaiting Dr. Joy.
--- NOTE | 2022-03-17 17:51 | PM.UROCN ---
History of Present Illness Consult details Consult date: 03/17/22 Narrative: hematuria Present to hospital with abdominal pain and shortness of breath. Admitted for management of CHF. Nursing staff unable to place Wilson catheter. [address] Wilson catheter placed. Substantial clot evacuated from bladder. Bladder irrigated to clear completion Risk factors for hematuria include anticoagulation with Coumadin, aspirin, vitamin E. recent CT scan with no evidence of pathology with in upper or lower urinary tract system. Review of Systems Constitutional: Constitutional: Reports as per HPI and Reports no additional constitutional complaints Cardiovascular: Cardiovascular: Reports as per HPI and Reports no additional cardiovascular complaints Respiratory: Respiratory: Reports as per HPI and Reports no additional respiratory complaints Gastrointestinal: Gastrointestinal: Reports as per HPI and Reports no additional gastrointestinal complaints Genitourinary: Genitourinary: Reports as per HPI Musculoskeletal: Musculoskeletal: Reports no additional musculoskeletal complaints and Reports as per HPI Neurologic: Reports system reviewed and no additional complaints, except as documented and Reports as per HPI [facility] Past Medical History Medical History (Updated 03/17/22 @ 17:55 by Guillermo Joy MD) Acute on chronic heart failure with reduced ejection fraction and diastolic dysfunction Amyloidosis Amyloidosis Anemia Arthritis Bladder hypertonicity CHF (congestive heart failure) Chronic atrial fibrillation Chronic heart failure with reduced ejection fraction and diastolic dysfunction Chronic HFrEF (heart failure with reduced ejection fraction) Chronic kidney disease (CKD) stage G4/A1, severely decreased glomerular filtration rate (GFR) between 15-29 mL/min/1.73 square meter and albuminuria creatinine ratio less than 30 mg/g CKD (chronic kidney disease) stage 4, GFR 15-29 ml/min Detached retina Gout Hematuria Hematuria Hemorrhoids with complication History of breast cancer HTN (hypertension) Hypercholesterolemia Hypothyroid ICD (implantable cardioverter-defibrillator) in place Ischemic cardiomyopathy Low back pain Nephrolithiasis Osteoarthritis Overweight (BMI 25.0-29.9) Pulmonary hypertension Renal cyst Thumb tendonitis Tricuspid regurgitation Urinary incontinence Family History Family History Mother Diabetes Father Past heart attack Diabetes Sister Parkinsons disease Surgical History Surgical History H/O abdominal hysterectomy H/O mitral valve replacement H/O mitral valve replacement with mechanical valve History of bunionectomy History of cataract surgery History of colonoscopy History of left inguinal hernia repair History of sleeve gastrectomy Mechanical heart valve present Social History Social History Household Members: Children Household Members Other:: daughter Housing: House Do you presently have visiting nurse or other home services: Yes ([facility]) Alcohol intake: never Patient Tobacco Use Status: Never used Tobacco Tobacco use type: Cigarette e-Cigarette/Vaping Use: Never Used Second Hand Smoke Exposure: No Use of substances other than those prescribed or required for medical reasons: No Currently Displaying Signs/Symptoms of Drug Intoxication Withdrawal: No Any prior treatment program specific to substance use: No Have you been hit, kicked, punched, or otherwise hurt by someone within the past year? If so, by whom?: No Do you feel safe in your current relationship?: No Current Relationship Is there a partner from a previous relationship who is making you feel unsafe now?: No Are you made to feel afraid or neglected: No Spiritual Healthcare Practices: none Advance Directives: Yes Advance Directives Information Provided: Yes Advance Directives on File: Yes Advance Directives Date on File: 02/22/22 Do you have thoughts of harming others: None Do you have a plan to hurt others: No Plan Recently lost weight without trying: Yes How much weight loss: 34pounds or more Eating poorly because of decreased appetite: Yes Nutrition screen score: 7 Nutrition Risks: Anorexia and Difficulty chewing Patient : No : No Poor oral hygiene: No (dentures) service: No Current occupational status: retired Current occupation: left handed Cognitive needs: No Hearing needs: No Vision needs: No Meds Allergies Allergy/AdvReac Type Severity Reaction Status Date / Time TAPE,PAPER Allergy Unknown RASH TO Uncoded 03/13/22 14:54 PAPER TAPE Active Medications: Current Medications Acetaminophen (Acetaminophen 325 Mg Tablet) 650 mg PO Q6H PRN PRN Reason: Pain, Mild (Pain Scale 1-3) Artificial Tears (Artificial Tears 15 Ml Drops) 1 drop EYE-BOTH TID [facility] Last Admin: 03/17/22 17:40 Dose: 1 drop Documented by: Ascorbic Acid (Ascorbic Acid 500 Mg Tablet) 500 mg PO BID [facility] Last Admin: 03/17/22 09:41 Dose: 500 mg Documented by: Atorvastatin Calcium (Atorvastatin Calcium 40 Mg Tablet) 40 mg PO BEDTIME [facility] Last Admin: 03/16/22 20:07 Dose: 40 mg Documented by: Calcium Carbonate (Calcium Carbonate 500 Mg Tablet) 750 mg PO DAILY [facility] Last Admin: 03/17/22 09:41 Dose: 750 mg Documented by: Carvedilol (Carvedilol 12.5 Mg Tablet) 12.5 mg PO BIDWM [facility]; Protocol Last Admin: 03/17/22 09:40 Dose: 12.5 mg Documented by: Docusate Sodium (Docusate Sodium 100 Mg Capsule) 100 mg PO DAILY PRN PRN Reason: Constipation Docusate Sodium (Docusate Sodium 100 Mg Capsule) 200 mg PO BEDTIME [facility] Last Admin: 03/16/22 20:08 Dose: 200 mg Documented by: Fluoxetine HCl (Fluoxetine Hcl 20 Mg Capsule) 40 mg PO DAILY [facility] Last Admin: 03/17/22 09:41 Dose: 40 mg Documented by: Furosemide (Furosemide 20 Mg Tablet) 20 mg PO BID@0900,1800 [facility]; Protocol Guaifenesin (Guaifenesin 100 Mg/5 Ml Liquid) 5 ml PO Q6H PRN PRN Reason: Cough Last Admin: 03/17/22 10:01 Dose: 5 ml Documented by: Isosorbide Dinitrate (Isosorbide Dinitrate 5 Mg Tablet) 5 mg PO BID [facility]; Protocol Last Admin: 03/17/22 09:41 Dose: 5 mg Documented by: Levothyroxine Sodium 112 mcg/ (Levothyroxine Sodium 25 mcg) 137 mcg PO DAILY@0600 [facility] Last Admin: 03/17/22 05:32 Dose: 137 mcg Documented by: Lorazepam (Lorazepam 0.5 Mg Tablet) 0.25 mg PO Q6H PRN PRN Reason: Anxiety Last Admin: 03/17/22 13:34 Dose: 0.25 mg Documented by: Omeprazole (Omeprazole 20 Mg Capsule.Dr) 20 mg PO DAILY@0630 [facility] Last Admin: 03/17/22 05:32 Dose: 20 mg Documented by: Pharmacy Consult (Consult Rx Perform Med Rec) 1 each MISCELLANE ONCE PRN PRN Reason: Consult order Sodium Chloride (0.9 % Sodium Chloride Flush 3 Ml Syringe) 3 ml IVFLUSH QSHIFT [facility] Last Admin: 03/17/22 17:40 Dose: 3 ml Documented by: Trazodone HCl (Trazodone Hcl 50 Mg Tablet) 50 mg PO BEDTIME PRN PRN Reason: for insomnia Last Admin: 03/16/22 20:08 Dose: 50 mg Documented by: Home Medications Medication Instructions Recorded Confirmed Last Taken Type acetaminophen 325 mg capsule 325 mg PO QID PRN 08/06/20 03/15/22 10/09/21 History (Tylenol) artifi.tears(hypromellose)(PF) 0.3 1 drp OPHTHALMIC (EYE) TID 09/03/21 03/15/22 10/21/21 History % eye drops calcium 750 mg PO DAILY 10/09/21 03/15/22 03/14/22 History rosuvastatin 10 mg tablet 10 mg PO BEDTIME 10/21/21 03/15/22 03/14/22 History trazodone 50 mg tablet 50 mg PO BEDTIME PRN 10/21/21 03/15/22 03/14/22 History warfarin 2.5 mg tablet 2.5 mg PO .COMPLEX 02/25/22 03/13/22 Unknown History docusate sodium 100 mg capsule 200 mg PO BEDTIME 03/15/22 03/15/22 03/14/22 History fluoxetine 20 mg capsule 40 mg PO DAILY 03/15/22 03/15/22 03/14/22 History potassium chloride 20 mEq 1 tab PO Q2D 03/15/22 03/15/22 Unknown History tablet,extended release(part/cryst) (Klor-Con M) vitamins A,C,G-jhbi-wqtkhv 14,320 1 cap PO BID 03/15/22 03/15/22 03/14/22 History unit-226 mg-200 unit capsule (PreserVision AREDS) warfarin 2.5 mg tablet 1.25 mg PO WE 03/15/22 03/15/22 03/12/22 History warfarin 2.5 mg tablet 2.5 mg PO SUMOTUTHFRSA 03/15/22 03/15/22 03/14/22 History Physical Exam Vital Signs: Vital Signs: Last Vital Signs Temp 97 F 03/17/22 15:59 Pulse 82 03/17/22 15:59 Resp 18 03/17/22 15:59 BP 133/76 03/17/22 15:59 Pulse Ox 97 03/17/22 15:59 BMI result Body Mass Index 20.2 Const: General: cooperative, healthy appearing, comfortable and no acute distress Orientation/consciousness: patient oriented x3 HEENT: Face and sinus: Yes normal facial exam Mouth: moist mucous membranes Neck: Neck: Yes normal visual inspection, Yes full ROM and Yes trachea midline Chest: Chest palpation & inspection: normal inspection of the chest Resp: Effort & Inspection: normal respiratory effort, able to speak in complete sentences and no respiratory distress GI: Inspection: Yes normal to inspection Back/Spine/Pelvis: Cervical Spine: normal cervical lordosis Thoracic/Lumbar Spine: thoracic and lumbar spine normal to inspection Skin: General skin exam: no rashes or lesions noted Neuro: General: patient oriented x3, tone normal and moves all extremities Extrem: General: Yes normal to inspection and Yes capillary refill normal Results Labs Result diagrams: 03/17/22 15:41 03/17/22 05:34 Labs: Abnormal lab results 03/17/22 03/17/22 03/17/22 Range/Units 05:34 05:34 05:34 RBC 3.64 L (4.20-5.50) X10*6/uL Hgb 10.6 L (12.0-16.0) g/dl Hct 35.6 L (37.0-47.0) % MCHC 29.8 L (31.0-35.0) g/dl RDW 17.9 H (11.0-16.0) % Plt Count 113 L (160-400) X10*3/uL PT 31.3 H (9.9-13.0) SEC INR 2.7 H (0.9-1.1) BUN 85 H (9-16) mg/dL Creatinine 3.19 H (0.5-1.4) mg/dL Calcium 8.1 L (8.4-10.2) mg/dL 03/17/22 Range/Units 15:41 RBC 3.80 L (4.20-5.50) X10*6/uL Hgb 11.0 L (12.0-16.0) g/dl Hct 36.4 L (37.0-47.0) % MCHC 30.2 L (31.0-35.0) g/dl RDW 18.0 H (11.0-16.0) % Plt Count 136 L (160-400) X10*3/uL PT (9.9-13.0) SEC INR (0.9-1.1) BUN (9-16) mg/dL Creatinine (0.5-1.4) mg/dL Calcium (8.4-10.2) mg/dL Short CBC 03/17/22 03/17/22 Range/Units 05:34 15:41 WBC 5.4 6.1 (4.8-10.8) X10*3/uL Hgb 10.6 L 11.0 L (12.0-16.0) g/dl Hct 35.6 L 36.4 L (37.0-47.0) % Plt Count 113 L 136 L (160-400) X10*3/uL BMP 03/17/22 05:34 Sodium 139 Potassium 5.1 Chloride 102 Carbon Dioxide 29 BUN 85 H Creatinine 3.19 H Calcium 8.1 L Urine 03/15/22 Range/Units 04:38 Urine Color YELLOW Urine Appearance CLEAR Urine pH 6.5 (5.0-8.0) Ur Specific [place] 1.020 (1.005-1.025) Urine Protein 2+ H (NEG-TRACE) MG/DL Urine Glucose (UA) NEG (NEG) MG/DL All other labs normal. Assessment and Plan (1) Gross hematuria: Status: Acute Procedures Date of Service Date of Service: 03/17/22 Catheter Insertion (Urinary) Date of insertion: 03/17/22 Replacement of catheter present on admission: No Reason for placing: Measure accurate output ( gross hematuria with CHF) Patient has the following: prosthetic heart valve Estimated amount of urine (mLs): 400 Antiseptic solution prep: Povidone-Iodine and Other Catheter type/location: 3-way Urethral Results: successfully catheterized-immediate flow Additional comments: required extensive irrigation for clot removal CPT 29624 bladder irrigation and difficult wilson catheter placement
[2022-03-17 18:40] VITALS: BP 108/60; PULSE 81; RESP 22; O2SAT 96
[2022-03-17 19:40] VITALS: BP 105/59; PULSE 81; RESP 18; TEMP 36.3; O2SAT 94
[2022-03-17] MEDS: Docusate Sodium 100 MG CAPSULE 200 MG PO (21:45)
[2022-03-17] MEDS: Atorvastatin Calcium 40 MG TABLET PO (21:45)
[2022-03-17 23:24] LABS: Hematocrit 31.4 % (37.0-47.0); Hemoglobin 9.5 g/dl (12.0-16.0); Mean Corpuscular HGB Conc 30.3 g/dl (31.0-35.0); Mean Corpuscular Hemoglobin 28.9 pg (27.0-33.0); Mean Corpuscular Volume 95.4 fL (80.0-98.0); Mean Platelet Volume 10.6 fL (9.4-12.3); Platelet Count 119 X10*3/uL (160-400); Red Blood Count 3.29 X10*6/uL (4.20-5.50); Red Cell Distribution Width 17.8 % (11.0-16.0)
[2022-03-18] VITALS (12 sets, daily range): BP systolic 80–131; BP diastolic 51–71; PULSE 78–84; RESP 14–18; TEMP 36–36.9; O2SAT 94–100
--- NOTE | 2022-03-18 00:15 | PC.NURSE ---
DR JUAREZ ON UNIT TO ASSESS PATIENT. REVIEWED STAT LABS.H+H 9.5/31.4.APPLIED O2 AT 2L.ECTOPY DECREASED.REMAINS SR ON TELE.CBI MAINT ,CONT TO DRAIN HEMATURIA.REPEAT LABS ORDERED FOR 6 AM.PT DENIES PAIN.
[2022-03-18] MEDS: 0.9 % Sodium Chloride Flush 3 ML SYRINGE IVFLUSH ×3 (00:19→21:54)
[2022-03-18 00:32] LABS: Anion Gap 14 (12-20); Blood Urea Nitrogen 82 mg/dL (9-16); Calcium 8.1 mg/dL (8.4-10.2); Carbon Dioxide 27 mmol/L (22-29); Chloride 103 mmol/L (96-108); Creatinine Clr Calc Pharmacy 16.7; Estimated Glomerular Filt Rate 15; Glucose Random 102 mg/dL (60-115); Magnesium 2.1 mg/dL (1.6-2.6); Potassium 4.9 mmol/L (3.3-5.1); Sodium 139 mmol/L (135-145)
--- NOTE | 2022-03-18 01:07 | PC.NURSE ---
patient started on CBI at 1720, bloody drainage noted from 3 way wilson, 9 bags in from 3-11 and 22,700 ml out. Reported to Dr Joy continued clots, states Hospitalist may want to reverse coagulation. Message relayed to DR Villanueva also,he ordered stat cbc. Notified Clinical calender supervisor that patient needs 1:1 care to keep up with CBI and bleeding, Faye Browne evaluated CBI, increased irrigation and took care of coninuous emptying of wilson and hanging irrigation solution until change of shift. Urine became clearer with increased irrigation. Patient had episode of 10 beat run of SVT at [address] Villanueva who ordered stat chem and mg, added to previous stat CBC. Informed Dr Villanueva that patient should be on telemetry floor. Report given to Latoya MENJIVAR. Dr Villanueva came to evaluate patient. Patient looks pale.
[2022-03-18] MEDS: Levothyroxine Sodium 112 MCG, Levothyroxine Sodium 25 MCG 137 MCG PO (06:16)
[2022-03-18] MEDS: Omeprazole 20 MG CAPSULE.DR PO (06:17)
[2022-03-18 06:58] LABS: Hemoglobin 9.2 g/dl (12.0-16.0); Mean Corpuscular HGB Conc 29.7 g/dl (31.0-35.0); Mean Corpuscular Hemoglobin 28.3 pg (27.0-33.0); Mean Corpuscular Volume 95.4 fL (80.0-98.0); Mean Platelet Volume 11.7 fL (9.4-12.3); Platelet Count 120 X10*3/uL (160-400); Red Blood Count 3.25 X10*6/uL (4.20-5.50); Red Cell Distribution Width 17.7 % (11.0-16.0); White Blood Count 4.6 X10*3/uL (4.8-10.8)
[2022-03-18 07:03] LABS: INTERNATIONAL NORM RATIO 2.3 (0.9-1.1)
[2022-03-18 07:19] LABS: Anion Gap 13 (12-20); Blood Urea Nitrogen 84 mg/dL (9-16); Calcium 7.8 mg/dL (8.4-10.2); Carbon Dioxide 29 mmol/L (22-29); Chloride 105 mmol/L (96-108); Creatinine Clr Calc Pharmacy 17.5; Estimated Glomerular Filt Rate 16; Glucose Random 87 mg/dL (60-115); Sodium 142 mmol/L (135-145)
[2022-03-18] MEDS: Ascorbic Acid 500 MG TABLET PO ×2 (08:57→21:53)
[2022-03-18] MEDS: Isosorbide Dinitrate 5 MG TABLET PO (08:57)
[2022-03-18] MEDS: Furosemide 20 MG TABLET PO (08:57)
[2022-03-18] MEDS: carvediloL 12.5 MG TABLET PO (08:57)
[2022-03-18] MEDS: FLUoxetine HCl 20 MG CAPSULE 40 MG PO (08:58)
[2022-03-18] MEDS: Artificial Tears 15 ML DROPS 1 DROP EYE-BOTH ×3 (08:58→21:53)
[2022-03-18 11:39] LABS: Hematocrit 28.9 % (37.0-47.0); Hemoglobin 8.6 g/dl (12.0-16.0)
--- NOTE | 2022-03-18 11:59 | P.PNIM_ITS ---
Subjective Subjective Date of Service: 03/18/22 Review of Systems Seen in f/u for CHF exacerbation Feels better, less sob, hematuria related to wilson placement, CBI Physical Exam Vital Signs: Vital Signs: Last Vital Signs Temp 96.8 F 03/18/22 11:17 Pulse 84 03/18/22 11:17 Resp 15 03/18/22 11:17 BP 80/52 L 03/18/22 11:17 Pulse Ox 100 03/18/22 11:17 BMI result Body Mass Index 20.2 Appearing in no acute distress lung sounds are clear to auscultation heart regular rate rhythm, clear S1, S2 positive bowel sounds, abdomen is soft, nontender neuro patient is alert x3, no focal deficits Hematuria, CBI Objective Data Active Medications Acetaminophen (Acetaminophen 325 Mg Tablet) 650 mg PO Q6H PRN PRN Reason: Pain, Mild (Pain Scale 1-3) Artificial Tears (Artificial Tears 15 Ml Drops) 1 drop EYE-BOTH TID [facility] Last Admin: 03/18/22 08:58 Dose: 1 drop Documented by: RENETTA Ascorbic Acid (Ascorbic Acid 500 Mg Tablet) 500 mg PO BID [facility] Last Admin: 03/18/22 08:57 Dose: 500 mg Documented by: RENETTA Atorvastatin Calcium (Atorvastatin Calcium 40 Mg Tablet) 40 mg PO BEDTIME [facility] Last Admin: 03/17/22 21:45 Dose: 40 mg Documented by: AAMIR Calcium Carbonate (Calcium Carbonate 500 Mg Tablet) 750 mg PO DAILY [facility] Last Admin: 03/18/22 08:58 Dose: 750 mg Documented by: RENETTA Carvedilol (Carvedilol 12.5 Mg Tablet) 12.5 mg PO BIDWM [facility]; Protocol Last Admin: 03/18/22 08:57 Dose: 12.5 mg Documented by: RENETTA Docusate Sodium (Docusate Sodium 100 Mg Capsule) 100 mg PO DAILY PRN PRN Reason: Constipation Docusate Sodium (Docusate Sodium 100 Mg Capsule) 200 mg PO BEDTIME [facility] Last Admin: 03/17/22 21:45 Dose: 200 mg Documented by: AAMIR Fluoxetine HCl (Fluoxetine Hcl 20 Mg Capsule) 40 mg PO DAILY [facility] Last Admin: 03/18/22 08:58 Dose: 40 mg Documented by: RENETTA Furosemide (Furosemide 20 Mg Tablet) 20 mg PO BID@0900,1800 [facility]; Protocol Last Admin: 03/18/22 08:57 Dose: 20 mg Documented by: RENETTA Guaifenesin (Guaifenesin 100 Mg/5 Ml Liquid) 5 ml PO Q6H PRN PRN Reason: Cough Last Admin: 03/17/22 10:01 Dose: 5 ml Documented by: DENISE Sodium Chloride (Ns) 1,000 mls @ 500 mls/hr IVCONT .Q2H [facility] Stop: 03/18/22 13:59 Isosorbide Dinitrate (Isosorbide Dinitrate 5 Mg Tablet) 5 mg PO BID [facility]; Protocol Last Admin: 03/18/22 08:57 Dose: 5 mg Documented by: RENETTA Levothyroxine Sodium 112 mcg/ (Levothyroxine Sodium 25 mcg) 137 mcg PO DA SHELDON@0600 [facility] Last Admin: 03/18/22 06:16 Dose: 137 mcg Documented by: GILBERT Lorazepam (Lorazepam 0.5 Mg Tablet) 0.25 mg PO Q6H PRN PRN Reason: Anxiety Last Admin: 03/17/22 13:34 Dose: 0.25 mg Documented by: DENISE Omeprazole (Omeprazole 20 Mg Capsule.) 20 mg PO DAILY@0630 [facility] Last Admin: 03/18/22 06:17 Dose: 20 mg Documented by: GILBERT Pharmacy Consult (Consult Rx Perform Med Rec) 1 each MISCELLANE ONCE PRN PRN Reason: Consult order Sodium Chloride (0.9 % Sodium Chloride Flush 3 Ml Syringe) 3 ml IVFLUSH QSHIFT [facility] Last Admin: 03/18/22 08:58 Dose: 3 ml Documented by: RENETTA Trazodone HCl (Trazodone Hcl 50 Mg Tablet) 50 mg PO BEDTIME PRN PRN Reason: for insomnia Last Admin: 03/16/22 20:08 Dose: 50 mg Documented by: SABRINA Labs CBC & Chem 7: 03/18/22 11:08 03/18/22 06:05 Labs: Laboratory Results - last 24 hr 03/17/22 03/17/22 03/17/22 05:34 15:41 23:18 MCV 97.8 95.8 95.4 MCH 29.1 28.9 28.9 MCHC 29.8 L 30.2 L 30.3 L RDW 17.9 H 18.0 H 17.8 H Plt Count 113 L 136 L 119 L MPV 11.9 11.3 10.6 Absolute Nucleated RBC 0.000 0.000 0.000 Nucleated RBC % (auto) 0.0 0.0 0.0 PT INR Anion Gap Estim Creat Clear Calc Estimated GFR Random Glucose Calcium Magnesium 03/17/22 03/18/22 03/18/22 23:18 06:05 06:05 MCV 95.4 MCH 28.3 MCHC 29.7 L RDW 17.7 H Plt Count 120 L MPV 11.7 Absolute Nucleated RBC 0.000 Nucleated RBC % (auto) 0.0 PT 27.0 H INR 2.3 H Anion Gap 14 Estim Creat Clear Calc 16.7 Estimated GFR 15 Random Glucose 102 Calcium 8.1 L Magnesium 2.1 03/18/22 06:05 MCV MCH MCHC RDW Plt Count MPV Absolute Nucleated RBC Nucleated RBC % (auto) PT INR Anion Gap 13 Estim Creat Clear Calc 17.5 Estimated GFR 16 Random Glucose 87 Calcium 7.8 L Magnesium Assessment and Plan (1) Acute on chronic heart failure with reduced ejection fraction and diastolic dysfunction: Status: Acute Plan 71 year old female with history of severe cardiomyopathy with EF 15-20% s/p AICD/PM, chronic atrial fibrillation, [place] mechanical mitral valve on [place], CKD, hypothyroidism, HLD, HTN, CAD, amyloidosis who presents to the ED with shortness of breath found to be in heart failure. Acute blood loss anemia secondary to hematuria Significant drop in HCT Tx one unit PRBC check HH post tx Hypotension. likely secondary to acute blood loss 500ml bolus 1 unit PRBC Hematuria likely secondary to traumatic wilson and supratherapeutic INR urology following continue CBI History of mechanical mitral valve. INR was supratherapeutic, warfarin has been on hold now with severe hematuria with anemia will likely need heparin follow INR daily, with goal between 2.5 and 3.5 Acute on chronic HFrEF clinically responding to diuretic therapy change to oral Lasix today per cardiology recommendation. Continue Coreg, Imdur Elevated troponin no chest pain, EKG with no significant change from previous trops chronically elevated, likely part due to decreased clearance from CKD, no further testing CKD 4 creatinine is better and closer to baseline Hyperkalemia resolved after [place], K is 4.9 now down from 5.6 thrombocytopenia chronic follow CBC History of hypothyroidism? Continue home levothyroxine History of hypertension BP stable continue home medications hyperlipidemia? Continue statin mood continue fluoxetine DVT prophylaxis on Coumadin, hold HCP - daughter Attending Dr. Turcios Full code Need inpatient due to exacerbation of heart failure requiring IV diuretics and need for monitoring of electrolytes and worsening hematuria requiring CBI Quality Stroke Does the patient have a stroke diagnosis?: No VTE Prior VTE?: No VTE Risk Level:: Medical - moderate - high VTE Device Contraindication: N/A - Device Ordered VTE Drug Contraindication: N/A - Med Ordered
[2022-03-18] MEDS: 0.9 % Sodium Chloride 1,000 ML 500 ML IVCONT (12:18)
--- NOTE | 2022-03-18 12:44 | P.PNCA_ITS ---
Subjective Subjective Date of Service: 03/18/22 <GEOVANNY Britton - Last Filed: 03/18/22 12:56> 03/18/22 <Lonnie Estrella MD - Last Filed: 03/18/22 15:14> Principal diagnosis: acute on chronic CHF, hematuria, mechanical Mitral valve <GEOVANNY Britton - Last Filed: 03/18/22 12:56> Interval history: Cardiology follow up for the above. Seen at 1215. Today she is observed resting in bed. No acute distress. Denies chest pains, sob, palpitation, abdominal discomfort, nausea. Has CBI infusing for hematuria. Punch colored urine. She expresses frustation about the hematuria occurring. Did not have blood in urine at home. <GEOVANNY Britton - Last Filed: 03/18/22 12:56> Review of Systems Review of Systems as above <GEOVANNY Britton - Last Filed: 03/18/22 12:56> Yes all other systems are reviewed and are negative <GEOVANNY Britton - Last Filed: 03/18/22 12:56> Physical Exam Vital Signs: Last Vital Signs Temp 96.8 F 03/18/22 11:17 Pulse 84 03/18/22 11:17 Resp 15 03/18/22 11:17 BP 80/52 L 03/18/22 11:17 Pulse Ox 100 03/18/22 11:17 BMI result Body Mass Index 20.2 <GEOVANNY Britton - Last Filed: 03/18/22 12:56> Const General: cooperative, no acute distress, alert and awake <GEOVANNY Britton - Last Filed: 03/18/22 12:56> Orientation/consciousness: patient oriented x3 <GEOVANNY Britton Last Filed: 03/18/22 12:56> Neck Neck: Yes normal visual inspection and Yes no JVD <GEOVANNY Britton Last Filed: 03/18/22 12:56> Resp Effort & Inspection: normal respiratory effort, able to speak in complete sentences and not labored <GEOVANNY Britton - Last Filed: 03/18/22 12:56> Auscultation: clear to auscultation bilaterally, no rales, no rhonchi and no wheezes <MARGARET BrittonC - Last Filed: 03/18/22 12:56> Cardio Rate: regular rate <MARGARET BrittonC - Last Filed: 03/18/22 12:56> Rhythm: abnormal rhythm <MARGARET BrittonC - Last Filed: 03/18/22 12:56> Heart sounds: S1 normal heart sound present, S2 normal heart sound present and Clicking heart sound present (crisp mitral valve click) <Melissa Frye [employer] INTERVIEWER-C - Last Filed: 03/18/22 12:56> Peripheral pulses: Peripheral pulses 2+ throughout <Melissa Frye MARGARETC - Last Filed: 03/18/22 12:56> GI Inspection: Yes normal to inspection <Melissa Frye MARGARET - Last Filed: 03/18/22 12:56> Neuro General: patient oriented x3 <Melissa Frye MARGARETC - Last Filed: 03/18/22 12:56> Extrem Other: +1 pitting lower leg edema <Melissa Frye [employer]ISON[employer] CLASSIFICATION INTERVIEWER-C - Last Filed: 03/18/22 12:56> General: Yes normal to inspection <Melissa Frye MARGARETC - Last Filed: 03/18/22 12:56> Objective Labs and Meds Result diagrams: : 03/18/22 11:08 03/18/22 06:05 <Melissa Frye MARGARETC - Last Filed: 03/18/22 12:56> Lab results: Laboratory Results - last 24 hr 03/17/22 03/17/22 03/17/22 05:34 15:41 23:18 WBC 5.4 6.1 5.0 RBC 3.64 L 3.80 L 3.29 L Hgb 10.6 L 11.0 L 9.5 L Hct 35.6 L 36.4 L 31.4 L MCV 97.8 95.8 95.4 MCH 29.1 28.9 28.9 MCHC 29.8 L 30.2 L 30.3 L RDW 17.9 H 18.0 H 17.8 H Plt Count 113 L 136 L 119 L MPV 11.9 11.3 10.6 Absolute Nucleated RBC 0.000 0.000 0.000 Nucleated RBC % (auto) 0.0 0.0 0.0 PT INR Sodium Potassium Chloride Carbon Dioxide Anion Gap BUN Creatinine Estim Creat Clear Calc Estimated GFR Random Glucose Calcium Magnesium 03/17/22 03/18/22 03/18/22 23:18 06:05 06:05 WBC 4.6 L RBC 3.25 L Hgb 9.2 L Hct 31.0 L MCV 95.4 MCH 28.3 MCHC 29.7 L RDW 17.7 H Plt Count 120 L MPV 11.7 Absolute Nucleated RBC 0.000 Nucleated RBC % (auto) 0.0 PT 27.0 H INR 2.3 H Sodium 139 Potassium 4.9 Chloride 103 Carbon Dioxide 27 Anion Gap 14 BUN 82 H Creatinine 3.06 H Estim Creat Clear Calc 16.7 Estimated GFR 15 Random Glucose 102 Calcium 8.1 L Magnesium 2.1 03/18/22 03/18/22 06:05 11:08 WBC RBC Hgb 8.6 L Hct 28.9 L MCV MCH MCHC RDW Plt Count MPV Absolute Nucleated RBC Nucleated RBC % (auto) PT INR Sodium 142 Potassium 5.0 Chloride 105 Carbon Dioxide 29 Anion Gap 13 BUN 84 H Creatinine 2.92 H Estim Creat Clear Calc 17.5 Estimated GFR 16 Random Glucose 87 Calcium 7.8 L Magnesium <GEOVANNY Britton - Last Filed: 03/18/22 12:56> Progress Note: A&P Assessment and plan (1) Gross hematuria: Status: Acute <GEOVANNY Britton - Last Filed: 03/18/22 12:56> Assessment and Plan: Mt blood seen in wilson bag yesterday. INR 4.3 on admit, down to 2.3 today. Coumadin on hold. Was seen by urology and their note indicates extensive clots irrigated from bladder. Now has CBI infusing and has punch colored urine. She has mechanical mitral valve and needs to continue on anticoagulation as soon as it is appropriate. Plan restart of coumadin when able. INR goal 2.5-3.5. May need heparin drip. Continue aspirin. <GEOVANNY Britton - Last Filed: 03/18/22 12:56> Mt blood seen in wilson bag yesterday. INR 4.3 on admit, down to 2.3 today. Coumadin on hold. Was seen by urology and their note indicates extensive clots irrigated from bladder. Now has CBI infusing and has punch colored urine. She has mechanical mitral valve and needs to continue on anticoagulation as soon as it is appropriate. Plan restart of coumadin when able. INR goal 2.5-3.5. May need heparin drip. Continue aspirin. Patient seen and examined. Transfuse as needed to maintain hematocrit over 30. Once INR is below 2 may require IV heparin if okay with Urology and him at [place] I have resolved. Continue neurology follow-up. Continue low-dose aspirin therapy. Discussed with urology went to restart warfarin level, target INR between 2.5 and 3.5 given her mechanical mitral valve. <Lonnie Estrella MD - Last Filed: 03/18/22 15:14> (2) Acute on chronic heart failure with reduced ejection fraction and diastolic dysfunction: Status: Acute <GEOVANNY Britton - Last Filed: 03/18/22 12:56> Assessment and Plan: Mild HF symptoms on admit and initially given IV Lasix. Now back on usual PO. Seems euvolemic on exam.?Last echo 09/04/21 shows EF 15-20%, mild to mod decrease in RVSF, mechanical Mitral valve functioning normally, mod to severe TR, mild to mod pulm HTN. She has known ischemic CMP, single lead ICD and advanced heart failure.? She also has advanced CKD with Cr 2.9 today. She needs to continue on her usual HF medications including carvedilol, isordil, aspirin, atorvastatin, Lasix.?watch for HF signs/ symptoms. <GEOVANNY Britton - Last Filed: 03/18/22 12:56> Mild HF symptoms on admit and initially given IV Lasix. Now back on usual PO. Seems euvolemic on exam.?Last echo 09/04/21 shows EF 15-20%, mild to mod decrease in RVSF, mechanical Mitral valve functioning normally, mod to severe TR, mild to mod pulm HTN. She has known ischemic CMP, single lead ICD and advanced heart failure.? She also has advanced CKD with Cr 2.9 today. She needs to continue on her usual HF medications including carvedilol, isordil, aspirin, atorvastatin, Lasix.?watch for HF signs/ symptoms. No signs of heart failure at this point in time. Continue vasodilators therapy. Continue current diuretic regimen. Transfuse to hematocrit over 30. Overall prognosis is guarded given very complicated and multiple comorbidities in this elderly woman with marked LV systolic dysfunction with secondary RV systolic dysfunction pulmonary hypertension with tricuspid regurgitation. Will follow with you <Lonnie Estrella MD - Last Filed: 03/18/22 15:14> (3) H/O mitral valve replacement: Status: Acute <GEOVANNY Britton - Last Filed: 03/18/22 12:56> Assessment and Plan: mechanical. <GEOVANNY Britton - Last Filed: 03/18/22 12:56> (4) ICD (implantable cardioverter-defibrillator) in place: Status: Acute <GEOVANNY Britton Last Filed: 03/18/22 12:56> Assessment and Plan: Single lead ICD <GEOVANNY Britton - Last Filed: 03/18/22 12:56> (5) Chronic atrial fibrillation: Status: Acute <GEOVANNY Britton - Last Filed: 03/18/22 12:56> Assessment and Plan: Heart rate controlled with carvedilol. Normally on coumadin for anticoagulation. <GEOVANNY Britton - Last Filed: 03/18/22 12:56> Time Spent With Patient Time: Total time spent is greater than 50% in coordination of care (as documented) at patient's floor/unit and/or counseling patient: 20 <GEOVANNY Britton - Last Filed: 03/18/22 12:56> Progress Note: Quality Stroke Does the patient have a stroke diagnosis?: No <GEOVANNY Britton Last Filed: 03/18/22 12:56> Procedures Date of Service Date of Service: 03/18/22 <GEVOANNY Britton - Last Filed: 03/18/22 12:56>
[2022-03-18] MEDS: Midodrine HCl 5 MG TABLET PO (14:58)
[2022-03-18] MEDS: Atorvastatin Calcium 40 MG TABLET PO (21:53)
[2022-03-18] MEDS: Docusate Sodium 100 MG CAPSULE 200 MG PO (21:54)
[2022-03-18 22:30] LABS: Hematocrit 26.7 % (37.0-47.0); Hemoglobin 8.1 g/dl (12.0-16.0)
[2022-03-19] VITALS (9 sets, daily range): BP systolic 74–108; BP diastolic 50–55; PULSE 82–88; RESP 15–18; TEMP 35.9–37.2; O2SAT 93–100
[2022-03-19] MEDS: LORazepam 0.5 MG TABLET 0.25 MG PO ×2 (05:45→12:04)
[2022-03-19] MEDS: Levothyroxine Sodium 112 MCG, Levothyroxine Sodium 25 MCG 137 MCG PO (05:45)
[2022-03-19] MEDS: Omeprazole 20 MG CAPSULE.DR PO (05:45)
[2022-03-19 06:17] LABS: INTERNATIONAL NORM RATIO 2.1 (0.9-1.1); Prothrombin Time 24.4 SEC (9.9-13.0)
[2022-03-19] MEDS: FLUoxetine HCl 20 MG CAPSULE 40 MG PO (08:23)
[2022-03-19] MEDS: Ascorbic Acid 500 MG TABLET PO ×2 (08:23→20:16)
[2022-03-19] MEDS: guaiFENesin 100 MG/5 ML LIQUID PO (08:26)
[2022-03-19] MEDS: 0.9 % Sodium Chloride Flush 3 ML SYRINGE IVFLUSH ×3 (08:26→20:17)
[2022-03-19] MEDS: Artificial Tears 15 ML DROPS 1 DROP EYE-BOTH ×3 (08:26→20:16)
[2022-03-19] MEDS: Docusate Sodium 100 MG CAPSULE PO (10:54)
--- NOTE | 2022-03-19 11:20 | P.PNCA_ITS ---
Subjective Subjective Date of Service: 03/19/22 <GEOVANNY Britton - Last Filed: 03/19/22 11:42> 03/19/22 <Lonnie Estrella MD - Last Filed: 03/19/22 12:27> Principal diagnosis: acute on chronic CHF, hematuria, mechanical Mitral valve <GEOVANNY Britton - Last Filed: 03/19/22 11:42> Interval history: Cardiology follow up for the above. Seen at 1045. Today she reports no discomfort or distress. Breathing unlabored. Intermittent cough is still present. No chest pains, palpitations, dizziness. Repositions self in bed. Bothered by wilson cath and CBI that is still running. Still will punch colored urine. No abdominal pains, nausea. Ate small amount of breakfast, Not hungry. <GEOVANNY Britton - Last Filed: 03/19/22 11:42> Review of Systems Review of Systems as above <GEOVANNY Britton - Last Filed: 03/19/22 11:42> Yes all other systems are reviewed and are negative <GEOVANNY Britton - Last Filed: 03/19/22 11:42> Physical Exam Vital Signs: Last Vital Signs Temp 97.4 F 03/19/22 07:38 Pulse 88 03/19/22 07:38 Resp 16 03/19/22 07:38 BP 91/55 L 03/19/22 07:38 Pulse Ox 99 03/19/22 07:38 BMI result Body Mass Index 20.2 <GEOVANNY Britton - Last Filed: 03/19/22 11:42> Const Other: pale, chronically ill, frail appearing elderly female <GEOVANNY Britton - Last Filed: 03/19/22 11:42> General: cooperative, no acute distress, alert and awake <GEOVANNY Britton Last Filed: 03/19/22 11:42> Orientation/consciousness: patient oriented x3 <GEOVANNY Britton Last Filed: 03/19/22 11:42> Neck Neck: Yes normal visual inspection and Yes no JVD <GEOVANNY Britton - Last Filed: 03/19/22 11:42> Resp Effort & Inspection: normal respiratory effort, able to speak in complete sentences and not labored <Melissa Fyre NP - Last Filed: 03/19/22 11:42> Auscultation: clear to auscultation bilaterally, no rales, rhonchi (coarsness in left lower lobe region) and no wheezes <Melissa Frye NPC - Last Filed: 03/19/22 11:42> Cardio Rate: regular rate <Melissa Frye [facility] - Last Filed: 03/19/22 11:42> Rhythm: regular rhythm <Melissa Frye [facility] - Last Filed: 03/19/22 11:42> Heart sounds: S1 normal heart sound present and S2 normal heart sound present <Melissa Frye [facility] - Last Filed: 03/19/22 11:42> GI Other: soft, rounded, nontender <Melissa Frye [facility] - Last Filed: 03/19/22 11:42> Inspection: Yes normal to inspection <Melissa Frye [facility] - Last Filed: 03/19/22 11:42> Neuro General: patient oriented x3 <Melissa Frye [facility] - Last Filed: 03/19/22 11:42> Extrem Other: trace - +1 bilateral lower leg edema <Melissa Frye [facility] - Last Filed: 03/19/22 11:42> General: Yes normal to inspection <Melissa Frye [facility] - Last Filed: 03/19/22 11:42> Objective Labs and Meds Result diagrams: : 03/18/22 22:24 03/18/22 06:05 <Melissa Frye [facility] - Last Filed: 03/19/22 11:42> Lab results: Laboratory Results - last 24 hr 03/18/22 03/18/22 03/18/22 11:08 12:36 22:24 Hgb 8.6 L 8.1 L Hct 28.9 L 26.7 L PT INR Blood Type B Negative Antibody Screen POSITIVE Antibody Identification Anti-D Antigen Identification E Antigen - NEGATIVE BRI, Polyspecific NEGATIVE Positive BRI Work-up TNP Crossmatch ([facility]) See Detail 03/19/22 05:24 Hgb Hct PT 24.4 H INR 2.1 H Blood Type Antibody Screen Antibody Identification Antigen Identification BRI, Polyspecific Positive BRI Work-up Crossmatch ([facility]) <GEOVANNY Britton - Last Filed: 03/19/22 11:42> Progress Note: A&P Assessment and plan (1) Gross hematuria: Status: Acute <GEOVANNY Britton - Last Filed: 03/19/22 11:42> Assessment and Plan: Hematuria this admit after wilson insert. INR elevated initially at 4.3. Her coumadin has been held. INR coming down, at 2.1 today. Has been seen by urology and has CBI infusion. Urine in wilson back still has light fruit punch color with few small clots seen in tubing. She will need to restart on anticoagulation as soon as hematuria resolved and cleared by urology to do so. Then plan to restart coumadin with INR goal INR 2.5-3.5 with her Mechanical mitral valve. Heparin drip per protocol will most likely be needed until her INR is therapuetic. Hgb 8.1, Hct 26.7 last marita. Recommend transfusion to manintain Hct over 30. <GEOVANNY Britton - Last Filed: 03/19/22 11:42> Hematuria this admit after wilson insert. INR elevated initially at 4.3. Her coumadin has been held. INR coming down, at 2.1 today. Has been seen by urology and has CBI infusion. Urine in wilson back still has light fruit punch color with few small clots seen in tubing. She will need to restart on anticoagulation as soon as hematuria resolved and cleared by urology to do so. Then plan to restart coumadin with INR goal INR 2.5-3.5 with her Mechanical mitral valve. Heparin drip per protocol will most likely be needed until her INR is therapuetic. Hgb 8.1, Hct 26.7 last marita. Recommend transfusion to manintain Hct over 30. Patient seen and examined. Case discussed with Melissa Frye. Patient remains with significant bleeding still. Continue bladder treatment as per Urology. Continue to hold anticoagulation at this point time by INR is 2.1. As a bleeding diminishes and if her INR drops below to start IV heparin. Higher risk for valve related thrombosis was discussed with the patient although currently have no options. Continue neurology follow-up. <Lonnie Estrella MD - Last Filed: 03/19/22 12:27> (2) H/O mitral valve replacement: Status: Acute <GEOVANNY Britton - Last Filed: 03/19/22 11:42> Assessment and Plan: as above. [place] valve click noted on exam today. Aspirin not active on Med list - will restart at this time as it is needed to help with clot prevention with her valve. <GEOVANNY Britton - Last Filed: 03/19/22 11:42> as above. [place] valve click noted on exam today. Aspirin not active on Med list - will restart at this time as it is needed to help with clot prevention with her valve. As above <Lonnie Estrella MD - Last Filed: 03/19/22 12:27> (3) Acute on chronic heart failure with reduced ejection fraction and diastolic dysfunction: Status: Acute <GEOVANNY Britton - Last Filed: 03/19/22 11:42> Assessment and Plan: Initially with mild CHF. Now euvolemic on exam. Continue usual cardiac meds including: carvedilol, isordil, lasix as able. BP has been running low, this am 91/55, asymptomatic. Her meds have been held when BP down. Overall pro gnosis guarded due to her advanced cardiac conditions and multiple comorbidities. Watch for signs of decompensated HF. <GEOVANNY Britton - Last Filed: 03/19/22 11:42> Initially with mild CHF. Now euvolemic on exam. Continue usual cardiac meds including: carvedilol, isordil, lasix as able. BP has been running low, this am 91/55, asymptomatic. Her meds have been held when BP down. Overall prognosis guarded due to her advanced cardiac conditions and multiple comorbidities. Watch for signs of decompensated HF. Patient appears to be euvolemic at this point time. Has multiple medical issues at this point time. Clinically euvolemic and well compensated. Continue current vasodilators treatment as well as diuretic regimen. Heart rate is well controlled at this point in time. Consider transfusing to maintain hematocrit above 30. Patient does not have any significant active cardiac issues. Will sign of the case. Please re-consult as needed <Lonnie Estrella MD - Last Filed: 03/19/22 12:27> (4) Ischemic cardiomyopathy: Status: Acute <GEOVANNY Britton - Last Filed: 03/19/22 11:42> Assessment and Plan: Last echo 09/04/21 shows EF 15-20%, mild to mod decrease in RVSF, mechanical Mitral valve functioning normally, mod to severe TR, mild to mod pulm HTN. <GEOVANNY Britton - Last Filed: 03/19/22 11:42> (5) ICD (implantable cardioverter-defibrillator) in place: Status: Acute <GEOVANNY Britton - Last Filed: 03/19/22 11:42> Assessment and Plan: Single lead ICD in place <GEOVANNY Britton - Last Filed: 03/19/22 11: 42> Time Spent With Patient Time: Total time spent is greater than 50% in coordination of care (as documente d) at patient's floor/unit and/or counseling patient: 22 <GEOVANNY Britton - Last Filed: 03/19/22 11:42> Progress Note: Quality Stroke Does the patient have a stroke diagnosis?: No <GEOVANNY Britton - Last Filed: 03/19/22 11:42> Procedures Date of Service Date of Service: 03/19/22 <GEOVANNY Britton - Last Filed: 03/19/22 11:42>
--- NOTE | 2022-03-19 11:22 | HO.PM.IMPN ---
Subjective Subjective Date of Service: 03/19/22 Interval History: cc: sob interval history:sob has resolved, but continues to have hematuria Cardiovascular Cardiovascular: Reports no additional cardiovascular complaints Respiratory Respiratory: Reports no additional respiratory complaints Physical Exam Vital Signs: Vital Signs: Last Vital Signs Temp 97.4 F 03/19/22 07:38 Pulse 88 03/19/22 07:38 Resp 16 03/19/22 07:38 BP 91/55 L 03/19/22 07:38 Pulse Ox 99 03/19/22 07:38 BMI result Body Mass Index 20.2 General: AO X 3, no acute distress Resp: CTA bilateral, no accessory muscles used CVS: S1,S2,RRR GI: soft, non tender, non distended Neuro: motor grossly intact, alert Psych: appropriate affect, appropriate insight punch colored urine Objective Data Active Medications Acetaminophen (Acetaminophen 325 Mg Tablet) 650 mg PO Q6H PRN PRN Reason: Pain, Mild (Pain Scale 1-3) Artificial Tears (Artificial Tears 15 Ml Drops) 1 drop EYE-BOTH TID [facility] Last Admin: 03/19/22 08:26 Dose: 1 drop Documented by: RENETTA Ascorbic Acid (Ascorbic Acid 500 Mg Tablet) 500 mg PO BID [facility] Last Admin: 03/19/22 08:23 Dose: 500 mg Documented by: RENETTA Atorvastatin Calcium (Atorvastatin Calcium 40 Mg Tablet) 40 mg PO BEDTIME [facility] Last Admin: 03/18/22 21:53 Dose: 40 mg Documented by: LAUREN Calcium Carbonate (Calcium Carbonate 500 Mg Tablet) 750 mg PO DAILY [facility] Last Admin: 03/19/22 08:24 Dose: 750 mg Documented by: RENETTA Carvedilol (Carvedilol 12.5 Mg Tablet) 12.5 mg PO BIDWM [facility]; Protocol Last Admin: 03/18/22 08:57 Dose: 12.5 mg Documented by: RENETTA Docusate Sodium (Docusate Sodium 100 Mg Capsule) 100 mg PO DAILY PRN PRN Reason: Constipation Last Admin: 03/19/22 10:54 Dose: 100 mg Documented by: RENETTA Docusate Sodium (Docusate Sodium 100 Mg Capsule) 200 mg PO BEDTIME [facility] Last Admin: 03/18/22 21:54 Dose: 200 mg Documented by: LAUREN Fluoxetine HCl (Fluoxetine Hcl 20 Mg Capsule) 40 mg PO DAILY [facility] Last Admin: 03/19/22 08:23 Dose: 40 mg Documented by: RENETTA Furosemide (Furosemide 20 Mg Tablet) 20 mg PO BID@0900,1800 [facility]; Protocol Last Admin: 03/18/22 08:57 Dose: 20 mg Documented by: RENETTA Guaifenesin (Guaifenesin 100 Mg/5 Ml Liquid) 5 ml PO Q6H PRN PRN Reason: Cough Last Admin: 03/19/22 08:26 Dose: 5 ml Documented by: RENETTA Heparin Sodium (Porcine) (Heparin Sodium,Porcine 5,000 Unit/Ml Vial) 2,500 unit 40 unit/kg (2500 unit) IVPUSH PROTOCOL BOLUS PRN; Protocol PRN Reason: 40 unit/kg - Heparin Protocol Heparin Sodium (Porcine) (Heparin Sodium,Porcine 5,000 Unit/Ml Vial) 5,000 unit 80 unit/kg (5000 unit) IVPUSH PROTOCOL BOLUS PRN; Protocol PRN Reason: 80 unit/kg - Heparin Protocol Heparin Sodium/Sodium Chloride () 25,000 unit in 250 mls @ 0 mls/hr IVCONT .Q0M [facility]; Protocol Isosorbide Dinitrate (Isosorbide Dinitrate 5 Mg Tablet) 5 mg PO BID [facility]; Protocol Last Admin: 03/18/22 08:57 Dose: 5 mg Documented by: RENETTA Levothyroxine Sodium 112 mcg/ (Levothyroxine Sodium 25 mcg) 137 mcg PO DAILY@0600 [facility] Last Admin: 03/19/22 05:45 Dose: 137 mcg Documented by: LAUREN Lorazepam (Lorazepam 0.5 Mg Tablet) 0.25 mg PO Q6H PRN PRN Reason: Anxiety Last Admin: 03/19/22 05:45 Dose: 0.25 mg Documented by: LAUREN Omeprazole (Omeprazole 20 Mg Capsule.) 20 mg PO DAILY@0630 [facility] Last Admin: 03/19/22 05:45 Dose: 20 mg Documented by: LAUREN Oxybutynin Chloride (Oxybutynin Chloride Er 5 Mg Tab.Er.24) 10 mg PO DAILY [facility] Last Admin: 03/19/22 10:54 Dose: 10 mg Documented by: RENETTA Pharmacy Consult (Consult Rx Perform Med Rec) 1 each MISCELLANE ONCE PRN PRN Reason: Consult order Sodium Chloride (0.9 % Sodium Chloride Flush 3 Ml Syringe) 3 ml IVFLUSH QSHIFT [facility] Last Admin: 03/19/22 08:26 Dose: 3 ml Documented by: RENETTA Trazodone HCl (Trazodone Hcl 50 Mg Tablet) 50 mg PO BEDTIME PRN PRN Reason: for insomnia Last Admin: 03/16/22 20:08 Dose: 50 mg Documented by: SABRINA Labs CBC & Chem 7: 03/18/22 22:24 03/18/22 06:05 Labs: Laboratory Results - last 24 hr 03/18/22 03/19/22 12:36 05:24 PT 24.4 H INR 2.1 H Blood Type B Negative Antibody Screen POSITIVE Antibody Identification Anti-D Antigen Identification E Antigen - NEGATIVE BRI, Polyspecific NEGATIVE Positive BRI Work-up TNP Crossmatch (AHG) See Detail Assessment and Plan (1) Gross hematuria: Status: Acute Plan 71 year old female with history of severe cardiomyopathy with EF 15-20% s/p AICD/PM, chronic atrial fibrillation, [place] mechanical mitral valve on [place], CKD, hypothyroidism, HLD, HTN, CAD, amyloidosis who presented to the ED with shortness of breath found to be in heart failure., now complicated by hematuria Acute blood loss anemia secondary to hematuria on cbi, continues to have punch colored urine holding coumadin/heparin for now monitor cbc History of mechanical mitral valve. holding AC for bleeding Acute on chronic HFrEF diuresed well, continue maintance lasix Continue Coreg, Isodril Elevated troponin no chest pain, EKG with no significant change from previous trops chronically elevated, likely part due to decreased clearance from CKD 4 CKD 4 stable (baseline cr. about 3) Hyperkalemia resolved after Lokelma thrombocytopenia chronic hypothyroidism? Continue home levothyroxine hypertension isodril, coreg hyperlipidemia? Continue statin mood continue fluoxetine DVT prophylaxis - mechanical HCP - daughter Full code reason for continued hospitalization:cbi for hematuria, monitoring cbc Quality Stroke Does the patient have a stroke diagnosis?: No VTE Prior VTE?: No VTE Risk Level:: Medical - moderate - high VTE Device Contraindication: N/A - Device Ordered VTE Drug Contraindication: N/A - Med Ordered
[2022-03-19 11:56] LABS: PTT Heparin Drip 38.5 SEC (53-77.9)
[2022-03-19] MEDS: 0.9 % Sodium Chloride 500 ML IV (12:01)
--- NOTE | 2022-03-19 14:23 | MHC.CLN ---
F/U SKIN WITH STAGE I, REDDNESS, TO COCCYX. INTAKE X 3 DAYS 50-100%. DIET=LOW SODIUM. NOT AT HIGH NUTRITIONAL RISK.
--- NOTE | 2022-03-19 19:11 | PC.NURSE ---
Pt w/ Continuous bladder irrigation. draining fruit punch colored urine w/ large clots. Early in shift, Pt c/o pressure to lower abd/pubic area, Bladder scan 65ml. hand irrigated succesfully - large clots. pt also noted to be leaking around catheter onto bed pad. MD Villeda and MD Joy notified - ?spasms. One time order placed for 10mg oxybutin. Given w/o relief, pt continue to leak large amounts onto bed pad. Pt had visible spasms noted, catheter shaking. notified MDs again - one time order placed for B&O suppository. given w/ some effectiveness. Pt continues to leak large amounts around catheter onto bed pads. and Continue to c/o pressure, bladder scan 259mL. Pt hand irrigated as needed. This RN and RN tank house supervisor unsuccessful, notified MD Joy. MD Joy up to assess patient, states catheter is positional, no new orders at this time. Pt also hypotensive earlier in shift, MD Villeda notified. Order for 500ml Bolus NS, given w/ +effect. Pt hypotensive again later in shift, notified MD Villeda. Christiana up to assess pt. Plan to give 1 unit PRBCs.
[2022-03-19] MEDS: Docusate Sodium 100 MG CAPSULE 200 MG PO (20:17)
[2022-03-19] MEDS: Atorvastatin Calcium 40 MG TABLET PO (20:17)
--- NOTE | 2022-03-19 23:00 | PC.NURSE ---
Patient had a manual BP of 80/50. MD was notified. Since patient is receiving blood, will monitor.
[2022-03-20] VITALS (13 sets, daily range): BP systolic 89–107; BP diastolic 49–55; PULSE 82–87; RESP 16–20; TEMP 36.1–36.8; O2SAT 97–100
[2022-03-20] MEDS: Levothyroxine Sodium 112 MCG, Levothyroxine Sodium 25 MCG 137 MCG PO (05:41)
[2022-03-20] MEDS: Omeprazole 20 MG CAPSULE.DR PO (05:41)
[2022-03-20 08:00] LABS: Mean Corpuscular Hemoglobin 28.2 pg (27.0-33.0); Mean Corpuscular Volume 91.2 fL (80.0-98.0); Mean Platelet Volume 11.7 fL (9.4-12.3); Platelet Count 123 X10*3/uL (160-400); Red Blood Count 2.16 X10*6/uL (4.20-5.50); White Blood Count 9.9 X10*3/uL (4.8-10.8)
[2022-03-20 08:16] LABS: Anion Gap 16 (12-20); Blood Urea Nitrogen 92 mg/dL (9-16); Calcium 7.2 mg/dL (8.4-10.2); Carbon Dioxide 22 mmol/L (22-29); Chloride 107 mmol/L (96-108); Creatinine Clr Calc Pharmacy 17.1; Estimated Glomerular Filt Rate 15; Glucose Fasting 98 mg/dL (60-99); Potassium 5.6 mmol/L (3.3-5.1); Sodium 139 mmol/L (135-145)
[2022-03-20 08:33] LABS: Hemoglobin 6.1 g/dl (12.0-16.0)
[2022-03-20 08:34] LABS: Hematocrit 19.7 % (37.0-47.0)
[2022-03-20] MEDS: Ascorbic Acid 500 MG TABLET PO ×2 (08:54→22:07)
[2022-03-20] MEDS: FLUoxetine HCl 20 MG CAPSULE 40 MG PO (08:54)
[2022-03-20] MEDS: Artificial Tears 15 ML DROPS 1 DROP EYE-BOTH ×3 (08:56→22:08)
[2022-03-20] MEDS: 0.9 % Sodium Chloride Flush 3 ML SYRINGE IVFLUSH ×2 (08:58→17:15)
--- NOTE | 2022-03-20 09:38 | HO.PM.IMPN ---
Subjective Subjective Date of Service: 03/20/22 Interval History: cc: sob interval history:sob rsolved, now weak with hematuria Cardiovascular Cardiovascular: Reports no additional cardiovascular complaints Respiratory Respiratory: Reports no additional respiratory complaints Physical Exam Vital Signs: Vital Signs: Last Vital Signs Temp 97.4 F 03/20/22 08:00 Pulse 85 03/20/22 08:00 Resp 18 03/20/22 08:00 BP 89/51 L 03/20/22 08:00 Pulse Ox 99 03/20/22 08:00 BMI result Body Mass Index 20.2 General: AO X 3, no acute distress Resp:? CTA bilateral, no accessory muscles used CVS: S1,S2,RRR GI: soft, non tender, non distended Neuro:? motor grossly intact, alert Psych: appropriate affect, appropriate insight? punch colored urine Objective Data Active Medications Acetaminophen (Acetaminophen 325 Mg Tablet) 650 mg PO Q6H PRN PRN Reason: Pain, Mild (Pain Scale 1-3) Artificial Tears (Artificial Tears 15 Ml Drops) 1 drop EYE-BOTH TID [facility] Last Admin: 03/20/22 08:56 Dose: 1 drop Documented by: NATALY Ascorbic Acid (Ascorbic Acid 500 Mg Tablet) 500 mg PO BID [facility] Last Admin: 03/20/22 08:54 Dose: 500 mg Documented by: NATALY Atorvastatin Calcium (Atorvastatin Calcium 40 Mg Tablet) 40 mg PO BEDTIME [facility] Last Admin: 03/19/22 20:17 Dose: 40 mg Documented by: LAUREN Calcium Carbonate (Calcium Carbonate 500 Mg Tablet) 750 mg PO DAILY [facility] Last Admin: 03/20/22 08:55 Dose: 750 mg Documented by: NATALY Carvedilol (Carvedilol 12.5 Mg Tablet) 12.5 mg PO BIDWM [facility]; Protocol Last Admin: 03/18/22 08:57 Dose: 12.5 mg Documented by: RENETTA Docusate Sodium (Docusate Sodium 100 Mg Capsule) 100 mg PO DAILY PRN PRN Reason: Constipation Last Admin: 03/19/22 10:54 Dose: 100 mg Documented by: RENETTA Docusate Sodium (Docusate Sodium 100 Mg Capsule) 200 mg PO BEDTIME [facility] Last Admin: 03/19/22 20:17 Dose: 200 mg Documented by: LAUREN Fluoxetine HCl (Fluoxetine Hcl 20 Mg Capsule) 40 mg PO DAILY [facility] Last Admin: 03/20/22 08:54 Dose: 40 mg Documented by: NATALY Furosemide (Furosemide 20 Mg Tablet) 20 mg PO BID@0900,1800 [facility]; Protocol Last Admin: 03/18/22 08:57 Dose: 20 mg Documented by: RENETTA Guaifenesin (Guaifenesin 100 Mg/5 Ml Liquid) 5 ml PO Q6H PRN PRN Reason: Cough Last Admin: 03/19/22 08:26 Dose: 5 ml Documented by: RENETTA Isosorbide Dinitrate (Isosorbide Dinitrate 5 Mg Tablet) 5 mg PO BID [facility]; Protocol Last Admin: 03/18/22 08:57 Dose: 5 mg Documented by: RENETTA Levothyroxine Sodium 112 mcg/ (Levothyroxine Sodium 25 mcg) 137 mcg PO DAILY@0600 [facility] Last Admin: 03/20/22 05:41 Dose: 137 mcg Documented by: LAUREN Lorazepam (Lorazepam 0.5 Mg Tablet) 0.25 mg PO Q6H PRN PRN Reason: Anxiety Last Admin: 03/19/22 12:04 Dose: 0.25 mg Documented by: RENETTA Omeprazole (Omeprazole 20 Mg Capsule.) 20 mg PO DAILY@0630 [facility] Last Admin: 03/20/22 05:41 Dose: 20 mg Documented by: LAUREN Oxybutynin Chloride (Oxybutynin Chloride Er 5 Mg Tab.Er.24) 10 mg PO DAILY [facility] Last Admin: 03/20/22 08:55 Dose: 10 mg Documented by: NATALY Pharmacy Consult (Consult Rx Perform Med Rec) 1 each MISCELLANE ONCE PRN PRN Reason: Consult order Sodium Chloride (0.9 % Sodium Chloride Flush 3 Ml Syringe) 3 ml IVFLUSH QSHIFT [facility] Last Admin: 03/20/22 08:58 Dose: 3 ml Documented by: NATALY Trazodone HCl (Trazodone Hcl 50 Mg Tablet) 50 mg PO BEDTIME PRN PRN Reason: for insomnia Last Admin: 03/16/22 20:08 Dose: 50 mg Documented by: SABRINA Labs CBC & Chem 7: 03/20/22 06:41 03/20/22 06:41 Labs: Laboratory Results - last 24 hr 03/18/22 03/19/22 03/20/22 12:36 11:34 06:41 MCV MCH MCHC RDW Plt Count MPV Absolute Nucleated RBC Nucleated RBC % (auto) aPTT Heparin Protocol 38.5 L Anion Gap 16 Estim Creat Clear Calc 17.1 Estimated GFR 15 Fasting Glucose 98 Calcium 7.2 L D Blood Type B Negative Antibody Screen POSITIVE Antibody Identification Anti-D Antigen Identification E Antigen - NEGATIVE BRI, Polyspecific NEGATIVE Positive BRI Work-up TNP Crossmatch (AHG) See Detail 03/20/22 06:41 MCV 91.2 MCH 28.2 MCHC 31.0 RDW 18.0 H Plt Count 123 L MPV 11.7 Absolute Nucleated RBC 0.000 Nucleated RBC % (auto) 0.0 aPTT Heparin Protocol Anion Gap Estim Creat Clear Calc Estimated GFR Fasting Glucose Calcium Blood Type Antibody Screen Antibody Identification Antigen Identification BRI, Polyspecific Positive BRI Work-up Crossmatch (AHG) Assessment and Plan (1) Gross hematuria: Status: Acute Plan 71 year old female with history of severe cardiomyopathy with EF 15-20% s/p AICD/PM, chronic atrial fibrillation, [place] mechanical mitral valve on [place], CKD, hypothyroidism, HLD, HTN, CAD, amyloidosis who presented to the ED with shortness of breath found to be in heart failure., now complicated by hematuria Acute blood loss anemia secondary to hematuria complicated by hypotension, weakness on cbi, continues to have punch colored urine hgb 6.1 today, will transfuse another 2 units prbc holding coumadin/heparin for now monitor cbc History of mechanical mitral valve. holding AC for bleeding Acute on chronic HFrEF diuresed well, now off lasix holding Coreg, Isodril for hypotension Elevated troponin no chest pain, EKG with no significant change from previous trops chronically elevated, likely part due to decreased clearance from CKD 4 CKD 4 stable (baseline cr. about 3) Hyperkalemia 5.6 today, will give another dose lokelma, monitor thrombocytopenia chronic hypothyroidism? Continue home levothyroxine hypertension isodril, coreg hyperlipidemia? Continue statin mood continue fluoxetine DVT prophylaxis - mechanical HCP - daughter Full code reason for continued hospitalization:cbi for hematuria, monitoring cbc Quality Stroke Does the patient have a stroke diagnosis?: No VTE Prior VTE?: No VTE Risk Level:: Medical - moderate - high VTE Device Contraindication: N/A - Device Ordered VTE Drug Contraindication: N/A - Med Ordered
[2022-03-20] MEDS: Sodium Zirconium Cyclosilicate 10 GM POWD.PACK PO (12:05)
[2022-03-20] MEDS: Furosemide 20 MG/2 ML VIAL IVPUSH (15:27)
--- NOTE | 2022-03-20 17:06 | PC.NURSE ---
AT 0830 PT UP IN CHAIR. 3-WAY STAHL FOUND OUT OF PT WITH BALLOON STILL INTACT. PT AND PIPE CAULKER STATED STAHL DID NOT GET CAUGHT OR PULLED. DR SHELDON WAS NOTIFIED. NEW STAHL WAS PALACE AT APPROX 1400 (#24 WITH 20ML BALLOON). CBI CONNECTED WITH BLOODY DRAINAGE.
[2022-03-20] MEDS: Docusate Sodium 100 MG CAPSULE 200 MG PO (22:08)
[2022-03-20] MEDS: Atorvastatin Calcium 40 MG TABLET PO (22:08)
[2022-03-21] VITALS (11 sets, daily range): BP systolic 90–100; BP diastolic 35–55; PULSE 60–87; RESP 14–19; TEMP 35.9–36.9; O2SAT 95–100
[2022-03-21] MEDS: 0.9 % Sodium Chloride Flush 3 ML SYRINGE IVFLUSH ×3 (00:04→16:21)
[2022-03-21] MEDS: guaiFENesin 100 MG/5 ML LIQUID PO ×2 (04:11→16:49)
[2022-03-21 05:34] LABS: Mean Corpuscular Hemoglobin 30.4 pg (27.0-33.0); Mean Platelet Volume 10.6 fL (9.4-12.3); NRBC Pct Auto 0.3 /100WBC (0.0-0.2); Platelet Count 116 X10*3/uL (160-400); Red Blood Count 2.24 X10*6/uL (4.20-5.50); Red Cell Distribution Width 16.7 % (11.0-16.0); White Blood Count 10.2 X10*3/uL (4.8-10.8)
[2022-03-21 05:50] LABS: Hematocrit 20.6 % (37.0-47.0); Hemoglobin 6.8 g/dl (12.0-16.0)
[2022-03-21] MEDS: Levothyroxine Sodium 112 MCG, Levothyroxine Sodium 25 MCG 137 MCG PO (06:04)
[2022-03-21] MEDS: Omeprazole 20 MG CAPSULE.DR PO (06:04)
[2022-03-21 06:10] LABS: Anion Gap 14 (12-20); Blood Urea Nitrogen 99 mg/dL (9-16); Carbon Dioxide 23 mmol/L (22-29); Chloride 105 mmol/L (96-108); Creatinine Clr Calc Pharmacy 14.5; Estimated Glomerular Filt Rate 13; Glucose Fasting 91 mg/dL (60-99); Potassium 5.3 mmol/L (3.3-5.1); Sodium 137 mmol/L (135-145)
--- NOTE | 2022-03-21 06:17 | PC.NURSE ---
HOSPITALIST ON DUTY MADE AWARE IN PERSON OF AM HH OF 6.8 AND 20.6. OF NOTE PT HAD 2 UNITS OF RBC'S TRANSFUSED YESTERDAY. CBI FLOWING WELL WITH PINK TINGED TO CLEAR URINE. PT CONTINUES TO HAVE BLOODY DRNG AROUND CATHETER SITE. CATHETER WAS CHANGED PREVIOUS DAY BY HER UROLOGIST
[2022-03-21] MEDS: Ascorbic Acid 500 MG TABLET PO ×2 (08:47→20:22)
[2022-03-21] MEDS: FLUoxetine HCl 20 MG CAPSULE 40 MG PO (08:47)
[2022-03-21] MEDS: Artificial Tears 15 ML DROPS 1 DROP EYE-BOTH ×3 (08:51→20:23)
--- NOTE | 2022-03-21 09:29 | HO.PM.IMPN ---
Subjective Subjective Date of Service: 03/21/22 Interval History: cc: sob interval history: anxious Cardiovascular Cardiovascular: Reports no additional cardiovascular complaints Respiratory Respiratory: Reports no additional respiratory complaints Physical Exam Vital Signs: Vital Signs: Last Vital Signs Temp 97.2 F 03/21/22 09:24 Pulse 61 03/21/22 09:24 Resp 18 03/21/22 09:24 BP 100/50 L 03/21/22 09:24 Pulse Ox 99 03/21/22 07:50 BMI result Body Mass Index 20.2 General: AO X 3, anxious Resp:? CTA bilateral, no accessory muscles used CVS: S1,S2,RRR GI: soft, non tender, non distended Neuro:? motor grossly intact, alert Psych: appropriate affect, appropriate insight? Objective Data Active Medications Acetaminophen (Acetaminophen 325 Mg Tablet) 650 mg PO Q6H PRN PRN Reason: Pain, Mild (Pain Scale 1-3) Artificial Tears (Artificial Tears 15 Ml Drops) 1 drop EYE-BOTH TID [facility] Last Admin: 03/21/22 08:51 Dose: 1 drop Documented by: JOSE Ascorbic Acid (Ascorbic Acid 500 Mg Tablet) 500 mg PO BID [facility] Last Admin: 03/21/22 08:47 Dose: 500 mg Documented by: JOSE Atorvastatin Calcium (Atorvastatin Calcium 40 Mg Tablet) 40 mg PO BEDTIME [facility] Last Admin: 03/20/22 22:08 Dose: 40 mg Documented by: EDDIE Calcium Carbonate (Calcium Carbonate 500 Mg Tablet) 750 mg PO DAILY [facility] Last Admin: 03/21/22 08:46 Dose: 750 mg Documented by: JOSE Carvedilol (Carvedilol 12.5 Mg Tablet) 12.5 mg PO BIDWM [facility]; Protocol Last Admin: 03/18/22 08:57 Dose: 12.5 mg Documented by: RENETTA Docusate Sodium (Docusate Sodium 100 Mg Capsule) 100 mg PO DAILY PRN PRN Reason: Constipation Last Admin: 03/19/22 10:54 Dose: 100 mg Documented by: RENETTA Docusate Sodium (Docusate Sodium 100 Mg Capsule) 200 mg PO BEDTIME [facility] Last Admin: 03/20/22 22:08 Dose: 200 mg Documented by: EDDIE Fluoxetine HCl (Fluoxetine Hcl 20 Mg Capsule) 40 mg PO DAILY [facility] Last Admin: 03/21/22 08:47 Dose: 40 mg Documented by: JOSE Furosemide (Furosemide 20 Mg Tablet) 20 mg PO BID@0900,1800 [facility]; Protocol Last Admin: 03/18/22 08:57 Dose: 20 mg Documented by: RENETTA Guaifenesin (Guaifenesin 100 Mg/5 Ml Liquid) 5 ml PO Q6H PRN PRN Reason: Cough Last Admin: 03/21/22 04:11 Dose: 5 ml Documented by: QING Isosorbide Dinitrate (Isosorbide Dinitrate 5 Mg Tablet) 5 mg PO BID [facility]; Protocol Last Admin: 03/18/22 08:57 Dose: 5 mg Documented by: RENETTA Levothyroxine Sodium 112 mcg/ (Levothyroxine Sodium 25 mcg) 137 mcg PO DAILY@0600 [facility] Last Admin: 03/21/22 06:04 Dose: 137 mcg Documented by: QING Lorazepam (Lorazepam 0.5 Mg Tablet) 0.25 mg PO Q6H PRN PRN Reason: Anxiety Last Admin: 03/19/22 12:04 Dose: 0.25 mg Documented by: RENETTA Omeprazole (Omeprazole 20 Mg Capsule.Dr) 20 mg PO DAILY@0630 [facility] Last Admin: 03/21/22 06:04 Dose: 20 mg Documented by: QING Oxybutynin Chloride (Oxybutynin Chloride Er 5 Mg Tab.Er.24) 10 mg PO DAILY [facility] Last Admin: 03/21/22 08:47 Dose: 10 mg Documented by: JOSE Pharmacy Consult (Consult Rx Perform Med Rec) 1 each MISCELLANE ONCE PRN PRN Reason: Consult order Sodium Chloride (0.9 % Sodium Chloride Flush 3 Ml Syringe) 3 ml IVFLUSH QSHIFT [facility] Last Admin: 03/21/22 08:46 Dose: 3 ml Documented by: JOSE Trazodone HCl (Trazodone Hcl 50 Mg Tablet) 50 mg PO BEDTIME PRN PRN Reason: for insomnia Last Admin: 03/16/22 20:08 Dose: 50 mg Documented by: SABRINA Labs CBC & Chem 7: 03/21/22 05:21 03/21/22 05:21 Labs: Laboratory Results - last 24 hr 03/18/22 03/21/22 03/21/22 12:36 05:21 05:21 MCV 92.0 MCH 30.4 MCHC 33.0 RDW 16.7 H Plt Count 116 L MPV 10.6 Absolute Nucleated RBC 0.030 H Nucleated RBC % (auto) 0.3 H Anion Gap 14 Estim Creat Clear Calc 14.5 Estimated GFR 13 Fasting Glucose 91 Calcium 7.0 L Blood Type B Negative Antibody Screen POSITIVE Antibody Identification Anti-D Antigen Identification E Antigen - NEGATIVE BRI, Polyspecific NEGATIVE Positive BRI Work-up TNP Crossmatch (AHG) See Detail Assessment and Plan (1) Gross hematuria: Status: Acute Plan 71 year old female with history of severe cardiomyopathy with EF 15-20% s/p AICD/PM, chronic atrial fibrillation, [place] mechanical mitral valve on [place], CKD, hypothyroidism, HLD, HTN, CAD, amyloidosis who presented to the ED with shortness of breath found to be in heart failure., now complicated by hematuria Acute blood loss anemia secondary to hematuria complicated by hypotension, weakness received 2 units on 03/20, hgb only increased from 6.1 to 6.8 will transfuse another unit holding coumadin/heparin for now monitor cbc History of mechanical mitral valve. holding AC for bleeding Acute on chronic HFrEF diuresed well, now off lasix holding Coreg, Isodril for hypotension Elevated troponin no chest pain, EKG with no significant change from previous trops chronically elevated, likely part due to decreased clearance from CKD 4 carmen on CKD 4 monitor, avoid hypotension Hyperkalemia 5.3 today, monitor thrombocytopenia chronic hypothyroidism? Continue home levothyroxine hypertension isodril, coreg hyperlipidemia? Continue statin mood continue fluoxetine DVT prophylaxis - mechanical HCP - daughter Full code reason for continued hospitalization:cbi for hematuria, monitoring cbc Quality Stroke Does the patient have a stroke diagnosis?: No VTE Prior VTE?: No VTE Risk Level:: Medical - moderate - high VTE Device Contraindication: N/A - Device Ordered VTE Drug Contraindication: N/A - Med Ordered
[2022-03-21] MEDS: Acetaminophen 325 MG TABLET 650 MG PO (13:19)
--- NOTE | 2022-03-21 14:35 | PC.NURSE ---
PT with CBI infusing, urine cler to light pink. no clots noted. Continuously irrigated without difficulty. Pt received i unit prbcs today. c/o generalized discomfort, tylenol given with good effect. Tolerating po fair. needs enouragement. Repositiond frequently
--- NOTE | 2022-03-21 16:55 | MHC.CM.PN ---
EMR REVIEWED, PER HOSPITALIST PT SONT'S TO BLEED, PT RECEIVED 2 UNITS PRBC'S WITH AN INCREAS OF HGB FROM 6.1 TO 6.8, NO PLAN FOR D/C AT THIS TIME, CM WILL CONT TO FOLLOW D/C NEEDS.
[2022-03-21] MEDS: Docusate Sodium 100 MG CAPSULE 200 MG PO (20:22)
[2022-03-21] MEDS: Atorvastatin Calcium 40 MG TABLET PO (20:22)
[2022-03-22] VITALS (17 sets, daily range): BP systolic 81–122; BP diastolic 32–79; PULSE 59–82; RESP 17–22; TEMP 36–37; O2SAT 93–100
[2022-03-22] MEDS: guaiFENesin 100 MG/5 ML LIQUID PO ×2 (00:21→20:06)
[2022-03-22] MEDS: Acetaminophen 325 MG TABLET 650 MG PO (00:21)
[2022-03-22] MEDS: 0.9 % Sodium Chloride Flush 3 ML SYRINGE IVFLUSH ×3 (00:50→20:07)
[2022-03-22] MEDS: 0.9 % Sodium Chloride 500 ML 250 ML IV (01:10)
[2022-03-22 01:11] LABS: MANUAL DIFF FLAG NO
[2022-03-22 01:13] LABS: Basophils Percent Auto 0.1 % (0-2); Mean Corpuscular HGB Conc 33.3 g/dl (31.0-35.0); Mean Corpuscular Hemoglobin 30.7 pg (27.0-33.0); Mean Corpuscular Volume 92.2 fL (80.0-98.0); Red Blood Count 2.18 X10*6/uL (4.20-5.50); Red Cell Distribution Width 16.4 % (11.0-16.0)
[2022-03-22 01:20] LABS: Eosinophils Absolute Auto 0.1 X10*3/uL (0.0-0.4); Eosinophils Percent Auto 0.7 % (0-4); Imm Gran Abs Auto 0.11 X10*3/uL (0.00-0.03); Imm Gran Pct Auto 1.1 % (0.0-0.4); Lymphocytes Percent Auto 9.9 % (20-40); Mean Platelet Volume 10.5 fL (9.4-12.3); Monocytes Absolute Auto 1.4 X10*3/uL (0.1-1.2); Monocytes Percent Auto 13.8 % (2-11); NRBC Pct Auto 0.9 /100WBC (0.0-0.2); Neutrophils Absolute Auto 7.5 x10*3/uL (2.0-8.3); Neutrophils Percent Auto 74.4 % (45-73); Platelet Count 126 X10*3/uL (160-400); White Blood Count 10.1 X10*3/uL (4.8-10.8)
[2022-03-22 01:26] LABS: Hematocrit 20.1 % (37.0-47.0); Hemoglobin 6.7 g/dl (12.0-16.0)
[2022-03-22 04:09] LABS: Mean Corpuscular Hemoglobin 30.8 pg (27.0-33.0); Mean Corpuscular Volume 93.3 fL (80.0-98.0); Mean Platelet Volume 10.4 fL (9.4-12.3); NRBC Pct Auto 0.8 /100WBC (0.0-0.2); Platelet Count 115 X10*3/uL (160-400); Red Blood Count 2.08 X10*6/uL (4.20-5.50); Red Cell Distribution Width 16.3 % (11.0-16.0); White Blood Count 10.6 X10*3/uL (4.8-10.8)
[2022-03-22 04:12] LABS: Hematocrit 19.4 % (37.0-47.0); Hemoglobin 6.4 g/dl (12.0-16.0)
[2022-03-22 04:30] LABS: Anion Gap 16 (12-20); Blood Urea Nitrogen 102 mg/dL (9-16); Calcium 6.9 mg/dL (8.4-10.2); Carbon Dioxide 21 mmol/L (22-29); Chloride 106 mmol/L (96-108); Creatinine Clr Calc Pharmacy 12.8; Estimated Glomerular Filt Rate 11; Glucose Fasting 94 mg/dL (60-99); Potassium 5.8 mmol/L (3.3-5.1); Sodium 137 mmol/L (135-145)
--- NOTE | 2022-03-22 04:45 | PC.NURSE ---
patient not sustaining SBP>90, MD and visual supervisor continuously notified of patient status. Hydraulic Operator assisted with irrigating clots around 0100. CBI running wide open with pale pink urine in [place]son to avoid clots. Patient comfortable, stomach pain subsided and she is sleeping currently>
--- NOTE | 2022-03-22 04:59 | PC.NURSE ---
MD ordered one unit of blood. lab notified me on positive antibody and blood will be approximately 3 hours until ready. MD notified.
--- NOTE | 2022-03-22 05:11 | PM.EVENT ---
Event Note Date of Service: 03/22/22 Event Note: Hematuria: Patient still continued to have blood fluids upon irrigation per RN. Urology follow-up. Hypotension: Patient will pressure currently on the soft side. Patient denies any symptoms. Will continue to monitor. Patient being transfused 1 unit of blood. Anemia: Patient's hemoglobin dropped to 6.4. Patient being transfused 1 unit of blood.
[2022-03-22] MEDS: Omeprazole 20 MG CAPSULE.DR PO (07:29)
[2022-03-22] MEDS: Levothyroxine Sodium 112 MCG, Levothyroxine Sodium 25 MCG 137 MCG PO (07:30)
[2022-03-22] MEDS: LORazepam 0.5 MG TABLET 0.25 MG PO (07:40)
[2022-03-22] MEDS: Ascorbic Acid 500 MG TABLET PO ×2 (08:21→20:06)
[2022-03-22] MEDS: FLUoxetine HCl 20 MG CAPSULE 40 MG PO (08:22)
[2022-03-22] MEDS: Artificial Tears 15 ML DROPS 1 DROP EYE-BOTH ×3 (08:23→20:07)
--- NOTE | 2022-03-22 10:03 | P.PNIM_ITS ---
Subjective Subjective Date of Service: 03/22/22 Interval History: cc: sob interval history:weak, continued hematuria Respiratory Respiratory: Reports no additional respiratory complaints Gastrointestinal Gastrointestinal: Reports no additional gastrointestinal complaints Physical Exam Vital Signs: Vital Signs: Last Vital Signs Temp 97.8 F 03/22/22 08:18 Pulse 62 03/22/22 08:18 Resp 18 03/22/22 08:18 BP 90/55 L 03/22/22 08:18 Pulse Ox 97 03/22/22 08:00 BMI result Body Mass Index 20.2 General: AO X 3, anxious Resp:? CTA bilateral, no accessory muscles used CVS: S1,S2,RRR GI: soft, non tender, non distended Neuro:? motor grossly intact, alert Psych: appropriate affect, appropriate insight? Objective Data Active Medications Acetaminophen (Acetaminophen 325 Mg Tablet) 650 mg PO Q6H PRN PRN Reason: Pain, Mild (Pain Scale 1-3) Last Admin: 03/22/22 00:21 Dose: 650 mg Documented by: ALLAN Artificial Tears (Artificial Tears 15 Ml Drops) 1 drop EYE-BOTH TID [facility] Last Admin: 03/22/22 08:23 Dose: 1 drop Documented by: MARI Ascorbic Acid (Ascorbic Acid 500 Mg Tablet) 500 mg PO BID [facility] Last Admin: 03/22/22 08:21 Dose: 500 mg Documented by: MARI Atorvastatin Calcium (Atorvastatin Calcium 40 Mg Tablet) 40 mg PO BEDTIME [facility] Last Admin: 03/21/22 20:22 Dose: 40 mg Documented by: EDDIE Calcium Carbonate (Calcium Carbonate 500 Mg Tablet) 750 mg PO DAILY [facility] Last Admin: 03/22/22 08:22 Dose: 750 mg Documented by: MARI Carvedilol (Carvedilol 12.5 Mg Tablet) 12.5 mg PO BIDWM [facility]; Protocol Last Admin: 03/18/22 08:57 Dose: 12.5 mg Documented by: RENETTA Docusate Sodium (Docusate Sodium 100 Mg Capsule) 100 mg PO DAILY PRN PRN Reason: Constipation Last Admin: 03/19/22 10:54 Dose: 100 mg Documented by: RENETTA Docusate Sodium (Docusate Sodium 100 Mg Capsule) 200 mg PO BEDTIME [facility] Last Admin: 03/21/22 20:22 Dose: 200 mg Documented by: EDDIE Fluoxetine HCl (Fluoxetine Hcl 20 Mg Capsule) 40 mg PO DAILY [facility] Last Admin: 03/22/22 08:22 Dose: 40 mg Documented by: MARI Furosemide (Furosemide 20 Mg Tablet) 20 mg PO BID@0900,1800 [facility]; Protocol Last Admin: 03/18/22 08:57 Dose: 20 mg Documented by: RENETTA Guaifenesin (Guaifenesin 100 Mg/5 Ml Liquid) 5 ml PO Q6H PRN PRN Reason: Cough Last Admin: 03/22/22 00:21 Dose: 5 ml Documented by: ALLAN Isosorbide Dinitrate (Isosorbide Dinitrate 5 Mg Tablet) 5 mg PO BID [facility]; Protocol Last Admin: 03/18/22 08:57 Dose: 5 mg Documented by: RENETTA Levothyroxine Sodium 112 mcg/ (Levothyroxine Sodium 25 mcg) 137 mcg PO DAILY@0600 [facility] Last Admin: 03/22/22 07:30 Dose: 137 mcg Documented by: ALLAN Lorazepam (Lorazepam 0.5 Mg Tablet) 0.25 mg PO Q6H PRN PRN Reason: Anxiety Last Admin: 03/22/22 07:40 Dose: 0.25 mg Documented by: MARI Omeprazole (Omeprazole 20 Mg Capsule.Dr) 20 mg PO DAILY@0630 [facility] Last Admin: 03/22/22 07:29 Dose: 20 mg Documented by: ALLAN Oxybutynin Chloride (Oxybutynin Chloride Er 5 Mg Tab.Er.24) 10 mg PO DAILY [facility] Last Admin: 03/22/22 08:22 Dose: 10 mg Documented by: MARI Pharmacy Consult (Consult Rx Perform Med Rec) 1 each MISCELLANE ONCE PRN PRN Reason: Consult order Sodium Chloride (0.9 % Sodium Chloride Flush 3 Ml Syringe) 3 ml IVFLUSH QSHIFT [facility] Last Admin: 03/22/22 08:23 Dose: Not Given Documented by: MARI Non-Admin Reason: blood transfusion Trazodone HCl (Trazodone Hcl 50 Mg Tablet) 50 mg PO BEDTIME PRN PRN Reason: for insomnia Last Admin: 03/16/22 20:08 Dose: 50 mg Documented by: SABRINA Labs CBC & Chem 7: 03/22/22 04:02 03/22/22 04:02 Labs: Laboratory Results - last 24 hr 03/18/22 03/20/22 03/22/22 12:36 06:41 01:02 MCV 92.2 MCH 30.7 MCHC 33.3 RDW 16.4 H Plt Count 126 L MPV 10.5 Immature Gran % (Auto) 1.1 H Neut % (Auto) 74.4 H Lymph % (Auto) 9.9 L Swisher % (Auto) 13.8 H Eos % (Auto) 0.7 Baso % (Auto) 0.1 Lymph # (Auto) 1.0 L Swisher # (Auto) 1.4 H Eos # (Auto) 0.1 Baso # (Auto) 0.0 Abs Immat Gran (auto) 0.11 H Absolute Neuts (auto) 7.5 Absolute Nucleated RBC 0.090 H Nucleated RBC % (auto) 0.9 H Smear Path Review Anion Gap Estim Creat Clear Calc Estimated GFR Fasting Glucose Calcium Blood Type Antibody Screen Antibody Identification Crossmatch (G) See Detail 03/22/22 03/22/22 03/22/22 04:02 04:02 04:02 MCV 93.3 MCH 30.8 MCHC 33.0 RDW 16.3 H Plt Count 115 L MPV 10.4 Immature Gran % (Auto) Neut % (Auto) Lymph % (Auto) Swisher % (Auto) Eos % (Auto) Baso % (Auto) Lymph # (Auto) Swisher # (Auto) Eos # (Auto) Baso # (Auto) Abs Immat Gran (auto) Absolute Neuts (auto) Absolute Nucleated RBC 0.080 H Nucleated RBC % (auto) 0.8 H Smear Path Review Anion Gap 16 Estim Creat Clear Calc 12.8 Estimated GFR 11 Fasting Glucose 94 Calcium 6.9 L Blood Type B Negative Antibody Screen POSITIVE Antibody Identification Anti-D Crossmatch ([facility]) See Detail Assessment and Plan (1) Gross hematuria: Status: Acute Plan 71 year old female with history of severe cardiomyopathy with EF 15-20% s/p AICD/PM, chronic atrial fibrillation, [place] mechanical mitral valve on [place], CKD, hypothyroidism, HLD, HTN, CAD, amyloidosis who presented to the ED with shortness of breath found to be in heart failure., now complicated by hematuria Acute blood loss anemia secondary to hematuria complicated by hypotension, weakness received 2 units on 03/20, 1unit 03/21, hgb still low 6.4 and hypotensive, receiving another unit holding coumadin/heparin for now monitor cbc History of mechanical mitral valve. holding AC for bleeding Acute on chronic HFrEF diuresed well, now off lasix, will give a one time dose after transfusion holding Coreg, Isodril for hypotension Elevated troponin no chest pain, EKG with no significant change from previous trops chronically elevated, likely part due to decreased clearance from CKD 4 carmen on CKD 4 monitor, avoid hypotension nephro eval Hyperkalemia 5.8 today, lokelma thrombocytopenia chronic hypothyroidism? Continue home levothyroxine hypertension isodril, coreg hyperlipidemia? Continue statin mood continue fluoxetine DVT prophylaxis - mechanical HCP - daughter Full code reason for continued hospitalization:cbi for hematuria, monitoring cbc Quality Stroke Does the patient have a stroke diagnosis?: No VTE Prior VTE?: No VTE Risk Level:: Medical - moderate - high VTE Device Contraindication: N/A - Device Ordered VTE Drug Contraindication: N/A - Med Ordered
[2022-03-22] MEDS: Furosemide 40 MG/4 ML VIAL IVPUSH (10:42)
[2022-03-22] MEDS: Sodium Zirconium Cyclosilicate 10 GM POWD.PACK PO (10:42)
[2022-03-22] MEDS: Docusate Sodium 100 MG CAPSULE 200 MG PO (20:06)
[2022-03-22] MEDS: Atorvastatin Calcium 40 MG TABLET PO (20:06)
[2022-03-23] VITALS (10 sets, daily range): BP systolic 90–121; BP diastolic 48–67; PULSE 78–106; RESP 16–20; TEMP 36–37.2; O2SAT 99–100
[2022-03-23] MEDS: guaiFENesin 100 MG/5 ML LIQUID PO (05:18)
[2022-03-23] MEDS: Omeprazole 20 MG CAPSULE.DR PO (05:18)
[2022-03-23] MEDS: Levothyroxine Sodium 112 MCG, Levothyroxine Sodium 25 MCG 137 MCG PO (05:18)
[2022-03-23 06:08] LABS: Hematocrit 21.1 % (37.0-47.0); Mean Corpuscular HGB Conc 32.2 g/dl (31.0-35.0); Mean Corpuscular Hemoglobin 30.2 pg (27.0-33.0); Mean Corpuscular Volume 93.8 fL (80.0-98.0); Mean Platelet Volume 10.5 fL (9.4-12.3); NRBC Pct Auto 0.6 /100WBC (0.0-0.2); Platelet Count 130 X10*3/uL (160-400); Red Blood Count 2.25 X10*6/uL (4.20-5.50); Red Cell Distribution Width 16.3 % (11.0-16.0); White Blood Count 10.2 X10*3/uL (4.8-10.8)
[2022-03-23 06:17] LABS: Hemoglobin 6.8 g/dl (12.0-16.0)
--- NOTE | 2022-03-23 06:23 | PC.NURSE ---
CBI continuosly clotting from 2192-6128 with bag change q30min. Human Service Specialist to bedside. Urology contacted at 2330 and told to try and irrigate but if still unable to irrigate okay to pull CBI. CBI pulled at 0000. Purewick in [address] draining pink to red tinged urine. Bladder scan at 0600 showed 169cc.
[2022-03-23 06:28] LABS: Anion Gap 15 (12-20); Blood Urea Nitrogen 105 mg/dL (9-16); Calcium 7.2 mg/dL (8.4-10.2); Carbon Dioxide 23 mmol/L (22-29); Chloride 104 mmol/L (96-108); Creatinine Clr Calc Pharmacy 11.6; Estimated Glomerular Filt Rate 10; Glucose Fasting 99 mg/dL (60-99); Potassium 5.3 mmol/L (3.3-5.1); Sodium 137 mmol/L (135-145)
[2022-03-23] MEDS: Ascorbic Acid 500 MG TABLET PO ×2 (09:00→20:27)
[2022-03-23] MEDS: FLUoxetine HCl 20 MG CAPSULE 40 MG PO (09:00)
[2022-03-23] MEDS: Artificial Tears 15 ML DROPS 1 DROP EYE-BOTH ×3 (09:01→20:28)
[2022-03-23] MEDS: 0.9 % Sodium Chloride Flush 3 ML SYRINGE IVFLUSH ×3 (09:01→20:29)
[2022-03-23] MEDS: Acetaminophen 325 MG TABLET 650 MG PO (09:14)
--- NOTE | 2022-03-23 09:18 | HO.PM.IMPN ---
Subjective Subjective Date of Service: 03/23/22 Interval History: cc: sob interval history:weak, continued hematuria Cardiovascular Cardiovascular: Reports no additional cardiovascular complaints Respiratory Respiratory: Reports no additional respiratory complaints Physical Exam Vital Signs: Vital Signs: Last Vital Signs Temp 98.1 F 03/23/22 08:00 Pulse 106 H 03/23/22 08:00 Resp 16 03/23/22 08:00 BP 121/59 L 03/23/22 08:00 Pulse Ox 100 03/23/22 08:00 BMI result Body Mass Index 20.2 General: AO X 3, ill appearing Resp:? CTA bilateral, no accessory muscles used CVS: S1,S2,RRR GI: soft, non tender, non distended Neuro:? motor grossly intact, alert Psych: appropriate affect, appropriate insight? Objective Data Active Medications Acetaminophen (Acetaminophen 325 Mg Tablet) 650 mg PO Q6H PRN PRN Reason: Pain, Mild (Pain Scale 1-3) Last Admin: 03/23/22 09:14 Dose: 650 mg Documented by: MARI Artificial Tears (Artificial Tears 15 Ml Drops) 1 drop EYE-BOTH TID [facility] Last Admin: 03/23/22 09:01 Dose: 1 drop Documented by: MARI Ascorbic Acid (Ascorbic Acid 500 Mg Tablet) 500 mg PO BID [facility] Last Admin: 03/23/22 09:00 Dose: 500 mg Documented by: MARI Atorvastatin Calcium (Atorvastatin Calcium 40 Mg Tablet) 40 mg PO BEDTIME [facility] Last Admin: 03/22/22 20:06 Dose: 40 mg Documented by: PETRA Calcium Carbonate (Calcium Carbonate 500 Mg Tablet) 750 mg PO DAILY [facility] Last Admin: 03/23/22 08:59 Dose: 750 mg Documented by: MARI Carvedilol (Carvedilol 12.5 Mg Tablet) 12.5 mg PO BIDWM [facility]; Protocol Last Admin: 03/18/22 08:57 Dose: 12.5 mg Documented by: RENETTA Docusate Sodium (Docusate Sodium 100 Mg Capsule) 100 mg PO DAILY PRN PRN Reason: Constipation Last Admin: 03/19/22 10:54 Dose: 100 mg Documented by: RENETTA Docusate Sodium (Docusate Sodium 100 Mg Capsule) 200 mg PO BEDTIME [facility] Last Admin: 03/22/22 20:06 Dose: 200 mg Documented by: PETRA Fluoxetine HCl (Fluoxetine Hcl 20 Mg Capsule) 40 mg PO DAILY [facility] Last Admin: 03/23/22 09:00 Dose: 40 mg Documented by: MARI Furosemide (Furosemide 20 Mg Tablet) 20 mg PO BID@0900,1800 [facility]; Protocol Last Admin: 03/18/22 08:57 Dose: 20 mg Documented by: RENETTA Guaifenesin (Guaifenesin 100 Mg/5 Ml Liquid) 5 ml PO Q6H PRN PRN Reason: Cough Last Admin: 03/23/22 05:18 Dose: 5 ml Documented by: PETRA Isosorbide Dinitrate (Isosorbide Dinitrate 5 Mg Tablet) 5 mg PO BID [facility]; Protocol Last Admin: 03/18/22 08:57 Dose: 5 mg Documented by: RENETTA Levothyroxine Sodium 112 mcg/ (Levothyroxine Sodium 25 mcg) 137 mcg PO DAILY@0600 [facility] Last Admin: 03/23/22 05:18 Dose: 137 mcg Documented by: PETRA Omeprazole (Omeprazole 20 Mg Capsule.Dr) 20 mg PO DAILY@0630 [facility] Last Admin: 03/23/22 05:18 Dose: 20 mg Documented by: PETRA Oxybutynin Chloride (Oxybutynin Chloride Er 5 Mg Tab.Er.24) 10 mg PO DAILY [facility] Last Admin: 03/23/22 09:00 Dose: 10 mg Documented by: MARI Pharmacy Consult (Consult Rx Perform Med Rec) 1 each MISCELLANE ONCE PRN PRN Reason: Consult order Sodium Chloride (0.9 % Sodium Chloride Flush 3 Ml Syringe) 3 ml IVFLUSH QSHIFT [facility] Last Admin: 03/23/22 09:01 Dose: 3 ml Documented by: MARI Trazodone HCl (Trazodone Hcl 50 Mg Tablet) 50 mg PO BEDTIME PRN PRN Reason: for insomnia Last Admin: 03/16/22 20:08 Dose: 50 mg Documented by: SABRINA Labs CBC & Chem 7: 03/23/22 05:48 03/23/22 05:48 Labs: Laboratory Results - last 24 hr 03/18/22 03/22/22 03/23/22 12:36 04:02 05:48 MCV 93.8 MCH 30.2 MCHC 32.2 RDW 16.3 H Plt Count 130 L MPV 10.5 Absolute Nucleated RBC 0.060 H Nucleated RBC % (auto) 0.6 H Anion Gap Estim Creat Clear Calc Estimated GFR Fasting Glucose Calcium Blood Type B Negative Antibody Screen POSITIVE Antibody Identification Anti-D Crossmatch ([facility]) See Detail See Detail 03/23/22 05:48 MCV MCH MCHC RDW Plt Count MPV Absolute Nucleated RBC Nucleated RBC % (auto) Anion Gap 15 Estim Creat Clear Calc 11.6 Estimated GFR 10 Fasting Glucose 99 Calcium 7.2 L Blood Type Antibody Screen Antibody Identification Crossmatch ([facility]) Assessment and Plan (1) Gross hematuria: Status: Acute Plan 71 year old female with history of severe cardiomyopathy with EF 15-20% s/p AICD/PM, chronic atrial fibrillation, [place] mechanical mitral valve on [place], CKD, hypothyroidism, HLD, HTN, CAD, amyloidosis who presented to the ED with shortness of breath found to be in heart failure., now complicated by hematuria Acute blood loss anemia secondary to hematuria complicated by hypotension, weakness received 2 units on 03/20, 1unit 03/21, 1 unit 03/22, hgb still low 6.8 and hypotensive, receiving another unit holding coumadin/heparin for now monitor cbc replace wilson with cbi follow up History of mechanical mitral valve. holding AC for bleeding Acute on chronic HFrEF diuresed well, now off lasix, will give a one time dose after transfusion holding Coreg, Isodril for hypotension Elevated troponin no chest pain, EKG with no significant change from previous trops chronically elevated, likely part due to decreased clearance from CKD 4 carmen on CKD 4 monitor, avoid hypotension nephro eval Hyperkalemia 5.3 today, lokelma, monitor thrombocytopenia chronic hypothyroidism? Continue home levothyroxine hypertension isodril, coreg hyperlipidemia? Continue statin mood continue fluoxetine DVT prophylaxis - mechanical HCP - daughter Full code reason for continued hospitalization:cbi for hematuria, monitoring cbc Quality Stroke Does the patient have a stroke diagnosis?: No VTE Prior VTE?: No VTE Risk Level:: Medical - moderate - high VTE Device Contraindication: N/A - Device Ordered VTE Drug Contraindication: N/A - Med Ordered
[2022-03-23] MEDS: Sodium Zirconium Cyclosilicate 5 GM POWD.PACK PO (10:50)
--- NOTE | 2022-03-23 11:48 | PM.CNNEP ---
History of Present Illness Reason for Consult Consult date: 03/23/22 Reason for consult: ALIZA on CKD IV Chief Complaint Chief complaint: Shortness of breath, CHF History of Present Illness Narrative: 71-year-old female with past medical history of CKD IV (BL S-Cr ~ 2.5-3 mg/dl), severe cardiomyopathy with EF 15-20% s/p AICD/PM, chronic atrial fibrillation, [place] mechanical mitral valve on Coumadin, hypothyroidism, HLD, HTN, CAD, AA amyloidosis who presented to [facility] ED on 03/15 with c/o cough, abdominal pain, nausea and vomiting. She was found to be in acute on chronic HF and was started on appropriate diuretic regimen with improvement in volume status and symptomatology however he hospital course was then complicated by hematuria. She is now requiring CBI with noted ongoing anemia. She denies sob, cp, n/v/d. She admits to some lower right quadrant abdominal pressure but otherwise denies complaints. ROS otherwise negative. Review of Systems Review of Systems Yes all other systems are reviewed and are negative [facility] Past Medical History Medical History (Updated 03/23/22 @ 11:50 by Mayur Maria MD) Acute on chronic heart failure with reduced ejection fraction and diastolic dysfunction Amyloidosis Amyloidosis Anemia Arthritis Bladder hypertonicity CHF (congestive heart failure) Chronic atrial fibrillation Chronic heart failure with reduced ejection fraction and diastolic dysfunction Chronic HFrEF (heart failure with reduced ejection fraction) Chronic kidney disease (CKD) stage G4/A1, severely decreased glomerular filtration rate (GFR) between 15-29 mL/min/1.73 square meter and albuminuria creatinine ratio less than 30 mg/g CKD (chronic kidney disease) stage 4, GFR 15-29 ml/min Detached retina Gout Hematuria Hematuria Hemorrhoids with complication History of breast cancer HTN (hypertension) Hypercholesterolemia Hypothyroid ICD (implantable cardioverter-defibrillator) in place Ischemic cardiomyopathy Low back pain Nephrolithiasis Osteoarthritis Overweight (BMI 25.0-29.9) Pulmonary hypertension Renal cyst Thumb tendonitis Tricuspid regurgitation Urinary incontinence Family History Family History Mother Diabetes Father Past heart attack Diabetes Sister Parkinsons disease Surgical History Surgical History H/O abdominal hysterectomy H/O mitral valve replacement H/O mitral valve replacement with mechanical valve History of bunionectomy History of cataract surgery History of colonoscopy History of left inguinal hernia repair History of sleeve gastrectomy Mechanical heart valve present Social History Social History Household Members: Children Household Members Other:: daughter Housing: House Do you presently have visiting nurse or other home services: Yes ([facility]) Alcohol intake: never Patient Tobacco Use Status: Never used Tobacco Tobacco use type: Cigarette e-Cigarette/Vaping Use: Never Used Second Hand Smoke Exposure: No Use of substances other than those prescribed or required for medical reasons: No Currently Displaying Signs/Symptoms of Drug Intoxication Withdrawal: No Any prior treatment program specific to substance use: No Have you been hit, kicked, punched, or otherwise hurt by someone within the past year? If so, by whom?: No Do you feel safe in your current relationship?: No Current Relationship Is there a partner from a previous relationship who is making you feel unsafe now?: No Are you made to feel afraid or neglected: No Spiritual Healthcare Practices: none Advance Directives: Yes Advance Directives Information Provided: Yes Advance Directives on File: Yes Advance Directives Date on File: 02/22/22 Do you have thoughts of harming others: None Do you have a plan to hurt others: No Plan Recently lost weight without trying: Yes How much weight loss: 34pounds or more Eating poorly because of decreased appetite: Yes Nutrition screen score: 7 Nutrition Risks: Anorexia and Difficulty chewing Patient : No : No Poor oral hygiene: No (dentures) service: No Current occupational status: retired Current occupation: left handed Cognitive needs: No Hearing needs: No Vision needs: No Meds Allergies Allergy/AdvReac Type Severity Reaction Status Date / Time TAPE,PAPER Allergy Unknown RASH TO Uncoded 03/13/22 14:54 PAPER TAPE Active Medications: Current Medications Acetaminophen (Acetaminophen 325 Mg Tablet) 650 mg PO Q6H PRN PRN Reason: Pain, Mild (Pain Scale 1-3) Last Admin: 03/23/22 09:14 Dose: 650 mg Documented by: Artificial Tears (Artificial Tears 15 Ml Drops) 1 drop EYE-BOTH TID COUNTS INCLUDE 234 BEDS AT THE [facility] Last Admin: 03/23/22 09:01 Dose: 1 drop Documented by: Ascorbic Acid (Ascorbic Acid 500 Mg Tablet) 500 mg PO BID COUNTS INCLUDE 234 BEDS AT THE [facility] Last Admin: 03/23/22 09:00 Dose: 500 mg Documented by: Atorvastatin Calcium (Atorvastatin Calcium 40 Mg Tablet) 40 mg PO BEDTIME COUNTS INCLUDE 234 BEDS AT THE [facility] Last Admin: 03/22/22 20:06 Dose: 40 mg Documented by: Calcium Carbonate (Calcium Carbonate 500 Mg Tablet) 750 mg PO DAILY COUNTS INCLUDE 234 BEDS AT THE [facility] Last Admin: 03/23/22 08:59 Dose: 750 mg Documented by: Carvedilol (Carvedilol 12.5 Mg Tablet) 12.5 mg PO BIDWM COUNTS INCLUDE 234 BEDS AT THE [facility]; Protocol Last Admin: 03/18/22 08:57 Dose: 12.5 mg Documented by: Docusate Sodium (Docusate Sodium 100 Mg Capsule) 100 mg PO DAILY PRN PRN Reason: Constipation Last Admin: 03/19/22 10:54 Dose: 100 mg Documented by: Docusate Sodium (Docusate Sodium 100 Mg Capsule) 200 mg PO BEDTIME COUNTS INCLUDE 234 BEDS AT THE [facility] Last Admin: 03/22/22 20:06 Dose: 200 mg Documented by: Fluoxetine HCl (Fluoxetine Hcl 20 Mg Capsule) 40 mg PO DAILY COUNTS INCLUDE 234 BEDS AT THE [facility] Last Admin: 03/23/22 09:00 Dose: 40 mg Documented by: Furosemide (Furosemide 20 Mg Tablet) 20 mg PO BID@0900,1800 COUNTS INCLUDE 234 BEDS AT THE [facility]; Protocol Last Admin: 03/18/22 08:57 Dose: 20 mg Documented by: Guaifenesin (Guaifenesin 100 Mg/5 Ml Liquid) 5 ml PO Q6H PRN PRN Reason: Cough Last Admin: 03/23/22 05:18 Dose: 5 ml Documented by: Isosorbide Dinitrate (Isosorbide Dinitrate 5 Mg Tablet) 5 mg PO BID COUNTS INCLUDE 234 BEDS AT THE [facility]; Protocol Last Admin: 03/18/22 08:57 Dose: 5 mg Documented by: Levothyroxine Sodium 112 mcg/ (Levothyroxine Sodium 25 mcg) 137 mcg PO DAILY@0600 COUNTS INCLUDE 234 BEDS AT THE [facility] Last Admin: 03/23/22 05:18 Dose: 137 mcg Documented by: Omeprazole (Omeprazole 20 Mg Capsule.Dr) 20 mg PO DAILY@0630 COUNTS INCLUDE 234 BEDS AT THE [facility] Last Admin: 03/23/22 05:18 Dose: 20 mg Documented by: Oxybutynin Chloride (Oxybutynin Chloride Er 5 Mg Tab.Er.24) 10 mg PO DAILY COUNTS INCLUDE 234 BEDS AT THE [facility] Last Admin: 03/23/22 09:00 Dose: 10 mg Documented by: Pharmacy Consult (Consult Rx Perform Med Rec) 1 each MISCELLANE ONCE PRN PRN Reason: Consult order Sodium Chloride (0.9 % Sodium Chloride Flush 3 Ml Syringe) 3 ml IVFLUSH QSHIFT NADINE Last Admin: 03/23/22 09:01 Dose: 3 ml Documented by: Trazodone HCl (Trazodone Hcl 50 Mg Tablet) 50 mg PO BEDTIME PRN PRN Reason: for insomnia Last Admin: 03/16/22 20:08 Dose: 50 mg Documented by: Home Medications Medication Instructions Recorded Confirmed Last Taken Type acetaminophen 325 mg capsule 325 mg PO QID PRN 08/06/20 03/15/22 10/09/21 History (Tylenol) artifi.tears(hypromellose)(PF) 0.3 1 drp OPHTHALMIC (EYE) TID 09/03/21 03/15/22 10/21/21 History % eye drops calcium 750 mg PO DAILY 10/09/21 03/15/22 03/14/22 History rosuvastatin 10 mg tablet 10 mg PO BEDTIME 10/21/21 03/15/22 03/14/22 History trazodone 50 mg tablet 50 mg PO BEDTIME PRN 10/21/21 03/15/22 03/14/22 History warfarin 2.5 mg tablet 2.5 mg PO .COMPLEX 02/25/22 03/13/22 Unknown History docusate sodium 100 mg capsule 200 mg PO BEDTIME 03/15/22 03/15/22 03/14/22 History fluoxetine 20 mg capsule 40 mg PO DAILY 03/15/22 03/15/22 03/14/22 History potassium chloride 20 mEq 1 tab PO Q2D 03/15/22 03/15/22 Unknown History tablet,extended release(part/cryst) (Klor-Con M) vitamins A,C,H-kvwr-crazxm 14,320 1 cap PO BID 03/15/22 03/15/22 03/14/22 History unit-226 mg-200 unit capsule (PreserVision AREDS) warfarin 2.5 mg tablet 1.25 mg PO WE 03/15/22 03/15/22 03/12/22 History warfarin 2.5 mg tablet 2.5 mg PO SUMOTUTHFRSA 03/15/22 03/15/22 03/14/22 History Physical Exam Vital Signs: Last Vital Signs Temp 98.8 F 03/23/22 09:34 Pulse 86 03/23/22 09:34 Resp 18 03/23/22 09:34 BP 98/62 03/23/22 09:34 Pulse Ox 100 03/23/22 08:00 BMI result Body Mass Index 20.2 Const General: cooperative and no acute distress Orientation/consciousness: patient oriented x3 HEENT Head: Yes normal to inspection, Yes normocephalic and Yes atraumatic Neck Neck: Yes no JVD Resp Auscultation: clear to auscultation bilaterally Cardio Jugular venous distension: no JVD Rate: regular rate Rhythm: regular rhythm Heart sounds: S1 normal heart sound present and S2 normal heart sound present GI Auscultation: normal bowel sounds Neuro General: patient oriented x3 Extrem General: Yes no clubbing, cyanosis or edema Results Lab Results Result Diagrams: 03/23/22 05:48 03/23/22 05:48 Lab results: Chemistry 03/21/22 03/22/22 03/23/22 05:21 04:02 05:48 Sodium 137 137 137 Potassium 5.3 H 5.8 H 5.3 H Carbon Dioxide 23 21 L 23 BUN 99 H 102 H 105 H Creatinine 3.53 H 3.98 H 4.38 H* Calcium 7.0 L 6.9 L 7.2 L Hematology 03/21/22 03/22/22 03/22/22 05:21 01:02 04:02 WBC 10.2 10.1 10.6 Hgb 6.8 L* 6.7 L* 6.4 L* Plt Count 116 L 126 L 115 L 03/23/22 05:48 WBC 10.2 Hgb 6.8 L* Plt Count 130 L Assessment and Plan (1) Hyperkalemia: Status: Acute (2) Gross hematuria: Status: Acute (3) Anemia: Status: Acute (4) Acute kidney failure: Status: Acute (5) CKD (chronic kidney disease) stage 4, GFR 15-29 ml/min: Status: Acute 71-year-old female with past medical history of CKD IV (BL S-Cr ~ 2.5-3 mg/dl), severe cardiomyopathy with EF 15-20% s/p AICD/PM, chronic atrial fibrillation, [place] mechanical mitral valve on Coumadin, hypothyroidism, HLD, HTN, CAD, AA amyloidosis who presented to [facility] ED on 03/15 with c/o cough, abdominal pain, nausea and vomiting. She was found to be in acute on chronic HF and was started on appropriate diuretic regimen with improvement in volume status and symptomatology however he hospital course was then complicated by hematuria. She is now requiring CBI with noted ongoing anemia. 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 Would continue to support her anemia with prn prbc transfusion. Also noted to have soft bp's on 03/18 and 03/19 again with noted rise in cr 03/20. Continue with hemodynamic support She is still making adequate urine and we can monitor for today. If BUN and S-Cr continue to increase we will need to revisit potential utility of [employer]. Given her cardiomyopathy and compromised EF, she may not tolerate hemodialysis Likely would require permcath placement if HD initiated. We would therefore need to coordinate with IR given INR and prior coumadin use for prosthetic valve. #) CKD-MBD: Check PTH, Phos in am. Replete calcium #) CKD-Anemia: Patient on AC with coumadin for heart valve and now has noted hematuria. AC being held Requiring CBI. Transfusion per primary team. Iron panel for morning. #) Hyperkalemia: Low K/renal diet, ALIZA on ckd Lokelma 10G prn K> 5.0 Procedures Date of Service Date of Service: 03/23/22
[2022-03-23] MEDS: LORazepam 0.5 MG TABLET PO (16:21)
--- NOTE | 2022-03-23 16:32 | PC.NURSE ---
late entry. At 13:30 Dr Joy messaged via [employer] if he was coming to see the patient regarding hematuria, and responded was but no specific time mentioned. Patient is very anxious at this time ,asking frequently when is the doctor coming. Ativan ordered and given to help relax a little, Dr Villeda messaged and stated that Dr Joy messaged him regarding this patient and that he was coming soon. Patient has a purewick and also is going on bedside commode,urine is very bloody with clots, bladder scanned multiple times, highest PVR is 201 ml.
--- NOTE | 2022-03-23 16:41 | PC.NURSE ---
spoke to patients daughter, ZairaWilian with updates.
--- NOTE | 2022-03-23 19:36 | PC.NURSE ---
Dr Joy walked in to patients room about 18:30, did not asked for any assistance.This RN responded to bed alarm going off in patients room and learned from Dr Joy that he could not make catheter patent for CBI because of severe clotting. Dr Joy placed a 3 way catheter and left the patient with it inserted ,not connected to anything, clotted completely. Dr Joy told this RN to leave it like that and patient is going to OR in the morning. Receiving RN and nursing supervisor instrument repair aware.
[2022-03-23] MEDS: Docusate Sodium 100 MG CAPSULE 200 MG PO (20:26)
[2022-03-23] MEDS: Atorvastatin Calcium 40 MG TABLET PO (20:28)
[2022-03-24] VITALS (14 sets, daily range): BP systolic 95–124; BP diastolic 48–66; PULSE 78–182; RESP 14–18; TEMP 36.2–37.7; O2SAT 97–100
[2022-03-24] MEDS: Omeprazole 20 MG CAPSULE.DR PO (05:29)
[2022-03-24] MEDS: Levothyroxine Sodium 112 MCG, Levothyroxine Sodium 25 MCG 137 MCG PO (05:29)
[2022-03-24 05:50] LABS: Hematocrit 21.2 % (37.0-47.0); Hemoglobin 7.1 g/dl (12.0-16.0); Mean Corpuscular HGB Conc 33.5 g/dl (31.0-35.0); Mean Corpuscular Volume 92.6 fL (80.0-98.0); Mean Platelet Volume 10.5 fL (9.4-12.3); NRBC Pct Auto 0.3 /100WBC (0.0-0.2); Platelet Count 126 X10*3/uL (160-400); Red Blood Count 2.29 X10*6/uL (4.20-5.50); Red Cell Distribution Width 16.1 % (11.0-16.0); White Blood Count 9.5 X10*3/uL (4.8-10.8)
[2022-03-24 05:59] LABS: INTERNATIONAL NORM RATIO 1.2 (0.9-1.1); Prothrombin Time 13.6 SEC (9.9-13.0)
[2022-03-24 06:21] LABS: Anion Gap 15 (12-20); Blood Urea Nitrogen 110 mg/dL (9-16); Calcium 7.8 mg/dL (8.4-10.2); Carbon Dioxide 22 mmol/L (22-29); Chloride 105 mmol/L (96-108); Creatinine Clr Calc Pharmacy 11.1; Estimated Glomerular Filt Rate 9; Glucose Fasting 81 mg/dL (60-99); Potassium 5.1 mmol/L (3.3-5.1); Sodium 137 mmol/L (135-145)
[2022-03-24] MEDS: Artificial Tears 15 ML DROPS 1 DROP EYE-BOTH ×2 (08:36→22:38)
[2022-03-24] MEDS: Acetaminophen 325 MG TABLET 650 MG PO (08:36)
[2022-03-24] MEDS: 0.9 % Sodium Chloride Flush 3 ML SYRINGE IVFLUSH ×3 (08:37→22:38)
--- NOTE | 2022-03-24 09:49 | HO.PM.IMPN ---
Subjective Subjective Date of Service: 03/24/22 Interval History: cc: sob interval history:weak, hematuria Cardiovascular Cardiovascular: Reports no additional cardiovascular complaints Respiratory Respiratory: Reports no additional respiratory complaints Physical Exam Vital Signs: Vital Signs: Last Vital Signs Temp 98.5 F 03/24/22 08:12 Pulse 114 H 03/24/22 08:12 Resp 18 03/24/22 08:12 BP 99/52 L 03/24/22 08:12 Pulse Ox 97 03/24/22 08:12 BMI result Body Mass Index 20.2 General: AO X 3, ill appearing Resp:? CTA bilateral, no accessory muscles used CVS: S1,S2,RRR GI: soft, non tender, non distended Neuro:? motor grossly intact, alert Psych: appropriate affect, appropriate insight? Objective Data Active Medications Acetaminophen (Acetaminophen 325 Mg Tablet) 650 mg PO Q6H PRN PRN Reason: Pain, Mild (Pain Scale 1-3) Last Admin: 03/24/22 08:36 Dose: 650 mg Documented by: DENISE Artificial Tears (Artificial Tears 15 Ml Drops) 1 drop EYE-BOTH TID [facility] Last Admin: 03/24/22 08:36 Dose: 1 drop Documented by: DENISE Ascorbic Acid (Ascorbic Acid 500 Mg Tablet) 500 mg PO BID [facility] Last Admin: 03/24/22 08:41 Dose: Not Given Documented by: DENISE Non-Admin Reason: NPO Atorvastatin Calcium (Atorvastatin Calcium 40 Mg Tablet) 40 mg PO BEDTIME [facility] Last Admin: 03/23/22 20:28 Dose: 40 mg Documented by: MARJORIE Calcium Carbonate (Calcium Carbonate 500 Mg Tablet) 750 mg PO DAILY [facility] Last Admin: 03/24/22 08:41 Dose: Not Given Documented by: DENISE Non-Admin Reason: NPO Carvedilol (Carvedilol 12.5 Mg Tablet) 12.5 mg PO BIDWM [facility]; Protocol Last Admin: 03/18/22 08:57 Dose: 12.5 mg Documented by: RENETTA Docusate Sodium (Docusate Sodium 100 Mg Capsule) 100 mg PO DAILY PRN PRN Reason: Constipation Last Admin: 03/19/22 10:54 Dose: 100 mg Documented by: RENETTA Docusate Sodium (Docusate Sodium 100 Mg Capsule) 200 mg PO BEDTIME [facility] Last Admin: 03/23/22 20:26 Dose: 200 mg Documented by: MARJORIE Fluoxetine HCl (Fluoxetine Hcl 20 Mg Capsule) 40 mg PO DAILY [facility] Last Admin: 03/24/22 08:41 Dose: Not Given Documented by: DENISE Non-Admin Reason: NPO Furosemide (Furosemide 20 Mg Tablet) 20 mg PO BID@0900,1800 [facility]; Protocol Last Admin: 03/18/22 08:57 Dose: 20 mg Documented by: RENETTA Guaifenesin (Guaifenesin 100 Mg/5 Ml Liquid) 5 ml PO Q6H PRN PRN Reason: Cough Last Admin: 03/23/22 05:18 Dose: 5 ml Documented by: PETRA Isosorbide Dinitrate (Isosorbide Dinitrate 5 Mg Tablet) 5 mg PO BID [facility]; Protocol Last Admin: 03/18/22 08:57 Dose: 5 mg Documented by: RENETTA Levothyroxine Sodium 112 mcg/ (Levothyroxine Sodium 25 mcg) 137 mcg PO DAILY@0600 [facility] Last Admin: 03/24/22 05:29 Dose: 137 mcg Documented by: MARJORIE Omeprazole (Omeprazole 20 Mg Capsule.Dr) 20 mg PO DAILY@0630 [facility] Last Admin: 03/24/22 05:29 Dose: 20 mg Documented by: MARJORIE Oxybutynin Chloride (Oxybutynin Chloride Er 5 Mg Tab.Er.24) 10 mg PO DAILY [facility] Last Admin: 03/24/22 08:41 Dose: Not Given Documented by: DENISE Non-Admin Reason: NPO Pharmacy Consult (Consult Rx Perform Med Rec) 1 each MISCELLANE ONCE PRN PRN Reason: Consult order Sodium Chloride (0.9 % Sodium Chloride Flush 3 Ml Syringe) 3 ml IVFLUSH QSHIFT [facility] Last Admin: 03/24/22 08:37 Dose: 3 ml Documented by: DENISE Trazodone HCl (Trazodone Hcl 50 Mg Tablet) 50 mg PO BEDTIME PRN PRN Reason: for insomnia Last Admin: 03/16/22 20:08 Dose: 50 mg Documented by: SABRINA Labs CBC & Chem 7: 03/24/22 05:26 03/24/22 05:26 Labs: Laboratory Results - last 24 hr 03/22/22 03/24/22 03/24/22 04:02 05:26 05:26 MCV 92.6 MCH 31.0 MCHC 33.5 RDW 16.1 H Plt Count 126 L MPV 10.5 Absolute Nucleated RBC 0.030 H Nucleated RBC % (auto) 0.3 H PT 13.6 H INR 1.2 H Anion Gap Estim Creat Clear Calc Estimated GFR Fasting Glucose Calcium Crossmatch (AHG) See Detail 03/24/22 05:26 MCV MCH MCHC RDW Plt Count MPV Absolute Nucleated RBC Nucleated RBC % (auto) PT INR Anion Gap 15 Estim Creat Clear Calc 11.1 Estimated GFR 9 Fasting Glucose 81 Calcium 7.8 L D Crossmatch (AHG) Assessment and Plan (1) Gross hematuria: Status: Acute Plan 71 year old female with history of severe cardiomyopathy with EF 15-20% s/p AICD/PM, chronic atrial fibrillation, [place] mechanical mitral valve on [place], CKD, hypothyroidism, HLD, HTN, CAD, amyloidosis who presented to the ED with shortness of breath found to be in heart failure., now complicated by hematuria Acute blood loss anemia secondary to hematuria complicated by hypotension, weakness received 2 units on 03/20, 1unit 03/21, 1 unit 03/22, 1 unit 03/23, hgb 7.1 holding coumadin/heparin for now monitor cbc plan for cysto today History of mechanical mitral valve. holding AC for bleeding Acute on chronic HFrEF holding Coreg, Isodril for hypotension Elevated troponin no chest pain, EKG with no significant change from previous trops chronically elevated, likely part due to decreased clearance from CKD 4 carmen on CKD 4 monitor, avoid hypotension nephro eval, monitor Hyperkalemia 5.3 today, lokelma, monitor thrombocytopenia chronic hypothyroidism? Continue home levothyroxine hypertension isodril, coreg hyperlipidemia? Continue statin mood continue fluoxetine DVT prophylaxis - mechanical HCP - daughter Full code reason for continued hospitalization:cbi for hematuria, monitoring cbc Quality Stroke Does the patient have a stroke diagnosis?: No VTE Prior VTE?: No VTE Risk Level:: Medical - moderate - high VTE Device Contraindication: N/A - Device Ordered VTE Drug Contraindication: N/A - Med Ordered
--- NOTE | 2022-03-24 11:25 | PM.UROPN ---
Subjective Subjective Date of Service: 03/24/22 Interval history: persistent gross hematuria Armenta catheter changed position all with irrigation this may be why at has been clotting INR has normalized currently on heparin plan for cystoscopy with clot evacuation and fulgeration as necessary Physical Exam Vital Signs: Vital Signs: Last Vital Signs Temp 98.5 F 03/24/22 08:12 Pulse 114 H 03/24/22 08:12 Resp 18 03/24/22 08:12 BP 99/52 L 03/24/22 08:12 Pulse Ox 97 03/24/22 08:12 BMI result Body Mass Index 20.2 Const: General: cooperative, healthy appearing, comfortable and no acute distress Orientation/consciousness: patient oriented x3 HEENT: Face and sinus: Yes normal facial exam Mouth: moist mucous membranes Neck: Neck: Yes normal visual inspection, Yes full ROM and Yes trachea midline Chest: Chest palpation & inspection: normal inspection of the chest Resp: Effort & Inspection: normal respiratory effort, able to speak in complete sentences and no respiratory distress GI: Inspection: Yes normal to inspection Back/Spine/Pelvis: Cervical Spine: normal cervical lordosis Thoracic/Lumbar Spine: thoracic and lumbar spine normal to inspection Skin: General skin exam: no rashes or lesions noted Neuro: General: patient oriented x3, gait normal, tone normal and moves all extremities Extrem: General: Yes normal to inspection and Yes capillary refill normal Urology Results Labs CBC & Chem 7: 03/24/22 05:26 03/24/22 05:26 Labs: Laboratory Results - last 24 hr 03/22/22 03/24/22 03/24/22 04:02 05:26 05:26 WBC 9.5 RBC 2.29 L Hgb 7.1 L Hct 21.2 L MCV 92.6 MCH 31.0 MCHC 33.5 RDW 16.1 H Plt Count 126 L MPV 10.5 Absolute Nucleated RBC 0.030 H Nucleated RBC % (auto) 0.3 H PT 13.6 H INR 1.2 H Sodium Potassium Chloride Carbon Dioxide Anion Gap BUN Creatinine Estim Creat Clear Calc Estimated GFR Fasting Glucose Calcium Crossmatch (AHG) See Detail 03/24/22 05:26 WBC RBC Hgb Hct MCV MCH MCHC RDW Plt Count MPV Absolute Nucleated RBC Nucleated RBC % (auto) PT INR Sodium 137 Potassium 5.1 Chloride 105 Carbon Dioxide 22 Anion Gap 15 BUN 110 H Creatinine 4.60 H* Estim Creat Clear Calc 11.1 Estimated GFR 9 Fasting Glucose 81 Calcium 7.8 L D Crossmatch (AHG) Progress Note: A&P Assessment and plan (1) Gross hematuria: Status: Acute Assessment and Plan: plan for cystoscopy, clot evacuation fulguration Plan Risks, benefits and alternatives to therapy were discussed. These include but are not limited to infection, bleeding, damage to local organs and tissues, need for further interventions. Anesthetic risks regarding cardiac arrhythmia, blood clots, and potential mortality were discussed. The patient understands the typical recovery time and the outpatient nature of the procedure. After consideration of these risks the patient gives full informed consent and they wish to move ahead with the procedure. Time Spent With Patient Time: Total time spent is greater than 50% in coordination of care (as documented) at patient's floor/unit and/or counseling patient: Progress Note: Quality Stroke Does the patient have a stroke diagnosis?: No
--- NOTE | 2022-03-24 12:06 | PM.PNNEP ---
Subjective Subjective Date of Service: 03/24/22 Principal diagnosis: acute on chronic CHF, hematuria, mechanical Mitral valve Interval history: Events noted. All recent data reviewed; Due cystosopy Physical Exam Vital Signs: Vital Signs: Last Vital Signs Temp 98 F 03/24/22 12:01 Pulse 115 H 03/24/22 12:01 Resp 18 03/24/22 12:01 BP 124/66 03/24/22 12:01 Pulse Ox 100 03/24/22 12:01 BMI result Body Mass Index 20.2 Const: General: tired appearing Eyes: EOM: EOMs intact bilaterally Resp: Auscultation: diminished lung sounds Cardio: Rate: regular rate GI: Palpation (GI): Soft to palpation Neuro: General: moves all extremities Objective Data Labs CBC & Chem 7: 03/24/22 05:26 03/24/22 05:26 Labs: Laboratory Results - last 24 hr 03/22/22 03/24/22 03/24/22 04:02 05:26 05:26 WBC 9.5 RBC 2.29 L Hgb 7.1 L Hct 21.2 L MCV 92.6 MCH 31.0 MCHC 33.5 RDW 16.1 H Plt Count 126 L MPV 10.5 Absolute Nucleated RBC 0.030 H Nucleated RBC % (auto) 0.3 H PT 13.6 H INR 1.2 H Sodium Potassium Chloride Carbon Dioxide Anion Gap BUN Creatinine Estim Creat Clear Calc Estimated GFR Fasting Glucose Calcium Crossmatch (AHG) See Detail 03/24/22 05:26 WBC RBC Hgb Hct MCV MCH MCHC RDW Plt Count MPV Absolute Nucleated RBC Nucleated RBC % (auto) PT INR Sodium 137 Potassium 5.1 Chloride 105 Carbon Dioxide 22 Anion Gap 15 BUN 110 H Creatinine 4.60 H* Estim Creat Clear Calc 11.1 Estimated GFR 9 Fasting Glucose 81 Calcium 7.8 L D Crossmatch (AHG) Procedures Date of Service Date of Service: 03/24/22 Assessment & Plan Assessment and plan (1) Acute kidney failure: Status: Acute Assessment and Plan: ALIZA due to compromise in renal perfusion Has advanced CKD at baseline Serum creatinine not plateaued yet No indication for renal replacement yet For cystoscopy today; C/W rest of current management Labs AM. Shall closely F/U Time Spent With Patient Time: Total time spent is greater than 50% in coordination of care (as documented) at patient's floor/unit and/or counseling patient: Progress Note: Quality Stroke Does the patient have a stroke diagnosis?: No
--- NOTE | 2022-03-24 12:48 | MHC.CM.PN ---
EMR REVIEWED, PER HOSPITALIST PT IMPROVING, PLAN FOR CYSTOSCOPY TODAY AND ANTIC PT WILL BE ABLE TO D/C BACK TO [facility]ULT [facility] TOMORROW, C/M WILL CONT TO FOLLOW D/C NEEDS.
--- NOTE | 2022-03-24 12:49 | HO.ANESPROP2 ---
HPI - Anesthesia Eval Consult details Narrative: 71 F for hematoma evacuation Severely reduced EF , Mechanical valve , ICD , Anemia s/p multiple units of PRBC during last few days , hematuria and hyperkalemia I discussed the case with the surgeon and as per surgeon this needs to emergently . Patient has been tacycardiac and Blood pressure has been on the softer side while patient has been admitted on the floor . Patient extremely high risk for complications in the perioperative period . [facility] Active Problems Active Problems: All Active Problems (Updated 03/23/22 @ 11:50 by Mayur Maria MD) CKD (chronic kidney disease) stage 4, GFR 15-29 ml/min (Acute) Acute kidney failure (Acute) Gross hematuria (Acute) Acute on chronic heart failure with reduced ejection fraction and diastolic dysfunction (Acute) Congestive heart failure (Acute) Abdominal pain (Acute) Hyperkalemia (Acute) H/O mitral valve replacement (Acute) ICD (implantable cardioverter-defibrillator) in place (Acute) Renal cyst (Acute) Hematuria (Acute) Low back pain (Acute) Ascites (Acute) Hematuria (Acute) Osteoarthritis of hand, left (Acute) Cellulitis of left hand (Acute) Ischemic cardiomyopathy (Acute) Hypothyroid (Acute) Hypercholesterolemia (Acute) CHF (congestive heart failure) (Acute) Chronic atrial fibrillation (Acute) Anemia (Acute) Detached retina (Acute) Elevated alkaline phosphatase level (Acute) Bilateral edema of lower extremity (Acute) External hemorrhoid, bleeding (Acute) Ascites (Acute) Prosthetic eye globe (Acute) Pressure ulcer (Acute) Generalized anxiety disorder (Acute) Pancreatitis (Acute) Hyperkalemia (Acute) History of breast cancer (Acute) Pressure ulcer (Acute) Acute insomnia (Acute) Current use of anticoagulant therapy (Acute) Right knee pain (Acute) Pulmonary hypertension (Acute) Past Medical History Medical History (Updated 03/23/22 @ 11:50 by Mayur Maria MD) Acute on chronic heart failure with reduced ejection fraction and diastolic dysfunction Amyloidosis Amyloidosis Anemia Arthritis Bladder hypertonicity CHF (congestive heart failure) Chronic atrial fibrillation Chronic heart failure with reduced ejection fraction and diastolic dysfunction Chronic HFrEF (heart failure with reduced ejection fraction) Chronic kidney disease (CKD) stage G4/A1, severely decreased glomerular filtration rate (GFR) between 15-29 mL/min/1.73 square meter and albuminuria creatinine ratio less than 30 mg/g CKD (chronic kidney disease) stage 4, GFR 15-29 ml/min Detached retina Gout Hematuria Hematuria Hemorrhoids with complication History of breast cancer HTN (hypertension) Hypercholesterolemia Hypothyroid ICD (implantable cardioverter-defibrillator) in place Ischemic cardiomyopathy Low back pain Nephrolithiasis Osteoarthritis Overweight (BMI 25.0-29.9) Pulmonary hypertension Renal cyst Thumb tendonitis Tricuspid regurgitation Urinary incontinence Family History Family History Mother Diabetes Father Past heart attack Diabetes Sister Parkinsons disease Family history of problems with anesthesia: No Surgical History Surgical History H/O abdominal hysterectomy H/O mitral valve replacement H/O mitral valve replacement with mechanical valve History of bunionectomy History of cataract surgery History of colonoscopy History of left inguinal hernia repair History of sleeve gastrectomy Mechanical heart valve present History of Problems with Anesthesia: No Social History Social History Household Members: Children Household Members Other:: daughter Housing: House Do you presently have visiting nurse or other home services: Yes ([facility]) Alcohol intake: never Patient Tobacco Use Status: Never used Tobacco Tobacco use type: Cigarette e-Cigarette/Vaping Use: Never Used Second Hand Smoke Exposure: No Use of substances other than those prescribed or required for medical reasons: No Currently Displaying Signs/Symptoms of Drug Intoxication Withdrawal: No Any prior treatment program specific to substance use: No Have you been hit, kicked, punched, or otherwise hurt by someone within the past year? If so, by whom?: No Do you feel safe in your current relationship?: No Current Relationship Is there a partner from a previous relationship who is making you feel unsafe now?: No Are you made to feel afraid or neglected: No Spiritual Healthcare Practices: none Are you DNR?: No Advance Directives: Yes Advance Directives Information Provided: Yes Advance Directives on File: Yes Advance Directives Date on File: 02/22/22 Do you have thoughts of harming others: None Do you have a plan to hurt others: No Plan Recently lost weight without trying: Yes How much weight loss: 34pounds or more Eating poorly because of decreased appetite: Yes Nutrition screen score: 7 Nutrition Risks: Anorexia and Difficulty chewing Patient : No : No Poor oral hygiene: No (dentures) service: No Current occupational status: retired Current occupation: left handed Cognitive needs: No Hearing needs: No Vision needs: No Meds Allergies Allergy/AdvReac Type Severity Reaction Status Date / Time TAPE,PAPER Allergy Unknown RASH TO Uncoded 03/13/22 14:54 PAPER TAPE Active Medications: Current Medications Acetaminophen (Acetaminophen 325 Mg Tablet) 650 mg PO Q6H PRN PRN Reason: Pain, Mild (Pain Scale 1-3) Last Admin: 03/24/22 08:36 Dose: 650 mg Documented by: Artificial Tears (Artificial Tears 15 Ml Drops) 1 drop EYE-BOTH TID [facility] Last Admin: 03/24/22 08:36 Dose: 1 drop Documented by: Ascorbic Acid (Ascorbic Acid 500 Mg Tablet) 500 mg PO BID [facility] Last Admin: 03/24/22 08:41 Dose: Not Given Documented by: Atorvastatin Calcium (Atorvastatin Calcium 40 Mg Tablet) 40 mg PO BEDTIME [facility] Last Admin: 03/23/22 20:28 Dose: 40 mg Documented by: Calcium Carbonate (Calcium Carbonate 500 Mg Tablet) 750 mg PO DAILY [facility] Last Admin: 03/24/22 08:41 Dose: Not Given Documented by: Carvedilol (Carvedilol 12.5 Mg Tablet) 12.5 mg PO BIDWM [facility]; Protocol Last Admin: 03/18/22 08:57 Dose: 12.5 mg Documented by: Docusate Sodium (Docusate Sodium 100 Mg Capsule) 100 mg PO DAILY PRN PRN Reason: Constipation Last Admin: 03/19/22 10:54 Dose: 100 mg Documented by: Docusate Sodium (Docusate Sodium 100 Mg Capsule) 200 mg PO BEDTIME [facility] Last Admin: 03/23/22 20:26 Dose: 200 mg Documented by: Fluoxetine HCl (Fluoxetine Hcl 20 Mg Capsule) 40 mg PO DAILY [facility] Last Admin: 03/24/22 08:41 Dose: Not Given Documented by: Furosemide (Furosemide 20 Mg Tablet) 20 mg PO BID@0900,1800 [facility]; Protocol Last Admin: 03/18/22 08:57 Dose: 20 mg Documented by: Guaifenesin (Guaifenesin 100 Mg/5 Ml Liquid) 5 ml PO Q6H PRN PRN Reason: Cough Last Admin: 03/23/22 05:18 Dose: 5 ml Documented by: Isosorbide Dinitrate (Isosorbide Dinitrate 5 Mg Tablet) 5 mg PO BID [facility]; Protocol Last Admin: 03/18/22 08:57 Dose: 5 mg Documented by: Levothyroxine Sodium 112 mcg/ (Levothyroxine Sodium 25 mcg) 137 mcg PO DAILY@0600 [facility] Last Admin: 03/24/22 05:29 Dose: 137 mcg Documented by: Omeprazole (Omeprazole 20 Mg Capsule.Dr) 20 mg PO DAILY@0630 [facility] Last Admin: 03/24/22 05:29 Dose: 20 mg Documented by: Oxybutynin Chloride (Oxybutynin Chloride Er 5 Mg Tab.Er.24) 10 mg PO DAILY [facility] Last Admin: 03/24/22 08:41 Dose: Not Given Documented by: Pharmacy Consult (Consult Rx Perform Med Rec) 1 each MISCELLANE ONCE PRN PRN Reason: Consult order Sodium Chloride (0.9 % Sodium Chloride Flush 3 Ml Syringe) 3 ml IVFLUSH QSHIFT [facility] Last Admin: 03/24/22 08:37 Dose: 3 ml Documented by: Trazodone HCl (Trazodone Hcl 50 Mg Tablet) 50 mg PO BEDTIME PRN PRN Reason: for insomnia Last Admin: 03/16/22 20:08 Dose: 50 mg Documented by: Home Medications Medication Instructions Recorded Confirmed Last Taken Type acetaminophen 325 mg capsule 325 mg PO QID PRN 08/06/20 03/15/22 10/09/21 History (Tylenol) artifi.tears(hypromellose)(PF) 0.3 1 drp OPHTHALMIC (EYE) TID 09/03/21 03/15/22 10/21/21 History % eye drops calcium 750 mg PO DAILY 10/09/21 03/15/22 03/14/22 History rosuvastatin 10 mg tablet 10 mg PO BEDTIME 10/21/21 03/15/22 03/14/22 History trazodone 50 mg tablet 50 mg PO BEDTIME PRN 10/21/21 03/15/22 03/14/22 History warfarin 2.5 mg tablet 2.5 mg PO .COMPLEX 02/25/22 03/13/22 Unknown History docusate sodium 100 mg capsule 200 mg PO BEDTIME 03/15/22 03/15/22 03/14/22 History fluoxetine 20 mg capsule 40 mg PO DAILY 05/05/3003/15/22 03/14/22 History potassium chloride 20 mEq 1 tab PO Q2D 03/15/22 03/15/22 Unknown History tablet,extended release(part/cryst) (Klor-Con M) vitamins A,C,I-ccpb-jbtqny 14,320 1 cap PO BID 03/15/22 03/15/22 03/14/22 History unit-226 mg-200 unit capsule (PreserVision AREDS) warfarin 2.5 mg tablet 1.25 mg PO WE 03/15/22 03/15/22 03/12/22 History warfarin 2.5 mg tablet 2.5 mg PO SUMOTUTHFRSA 03/15/22 03/15/22 03/14/22 History Exam Exam Date and Time: March 24, 2022 124 Height,Weight and Vital Signs: Height 5 ft 9 in Weight 62.1 kg Last Vital Signs Temp 98 F 03/24/22 12:01 Pulse 115 H 03/24/22 12:01 Resp 18 03/24/22 12:01 BP 124/66 03/24/22 12:01 Pulse Ox 100 03/24/22 12:01 Pertinent Lab Results Pertinent Lab Results: Laboratory Tests 03/14/22 03/14/22 03/14/22 21:46 21:46 21:46 WBC 6.4 RBC 3.88 L Hgb 11.1 L Hct 37.1 MCV 95.6 MCH 28.6 MCHC 29.9 L RDW 17.8 H Plt Count 126 L MPV 13.0 H Immature Gran % (Auto) 0.3 Neut % (Auto) 84.1 H Lymph % (Auto) 4.7 L [place] % (Auto) 10.4 Eos % (Auto) 0.3 Baso % (Auto) 0.2 Lymph # (Auto) 0.3 L [place] # (Auto) 0.7 Eos # (Auto) 0.0 Baso # (Auto) 0.0 Abs Immat Gran (auto) 0.02 Absolute Neuts (auto) 5.4 Absolute Nucleated RBC 0.000 Nucleated RBC % (auto) 0.0 Smear Path Review PT INR APTT aPTT Heparin Protocol Sodium 139 Potassium 5.6 H Chloride 103 Carbon Dioxide 27 Anion Gap 15 BUN 78 H Creatinine 3.19 H Estim Creat Clear Calc 16.0 Estimated GFR 14 Random Glucose 100 Fasting Glucose Calcium 8.6 Magnesium Total Bilirubin 0.7 AST 23 ALT 28 Alkaline Phosphatase 207 H Troponin I High Sens 1094.4 H* B-Natriuretic Peptide Total Protein 6.9 Albumin 2.9 L Urine Color Urine Appearance Urine pH Ur Specific [place] Urine Protein Urine Glucose (UA) Urine Ketones Urine Blood Urine Nitrite Ur Leukocyte Esterase Urine RBC Urine WBC Ur Squamous Epith Cells Urine Bacteria Hyaline Casts COVID-19 (ANEUDY) COVID-19 Clin Com Influenza Type A (DANNI) Influenza Type B (DANNI) Influenza A & B Note Blood Type Antibody Screen Antibody Identification Antigen Identification BRI, Polyspecific Positive BRI Work-up Crossmatch ([facility]) 03/15/22 03/15/22 03/15/22 00:18 00:18 04:38 WBC RBC Hgb Hct MCV MCH MCHC RDW Plt Count MPV Immature Gran % (Auto) Neut % (Auto) Lymph % (Auto) [place] % (Auto) Eos % (Auto) Baso % (Auto) Lymph # (Auto) [place] # (Auto) Eos # (Auto) Baso # (Auto) Abs Immat Gran (auto) Absolute Neuts (auto) Absolute Nucleated RBC Nucleated RBC % (auto) Smear Path Review PT INR APTT aPTT Heparin Protocol Sodium Potassium Chloride Carbon Dioxide Anion Gap BUN Creatinine Estim Creat Clear Calc Estimated GFR Random Glucose Fasting Glucose Calcium Magnesium Total Bilirubin AST ALT Alkaline Phosphatase Troponin I High Sens B-Natriuretic Peptide Total Protein Albumin Urine Color YELLOW Urine Appearance CLEAR Urine pH 6.5 Ur Specific [place] 1.020 Urine Protein 2+ H Urine Glucose (UA) NEG Urine Ketones NEG Urine Blood 3+ H Urine Nitrite NEG Ur Leukocyte Esterase NEG Urine RBC 30-49 H Urine WBC 1-4 Ur Squamous Epith Cells 1+ Urine Bacteria 1+ Hyaline Casts 1-4 COVID-19 (ANEUDY) Negative COVID-19 Clin Com See Note Influenza Type A (DANNI) Negative Influenza Type B (DANNI) Negative Influenza A & B Note See Note Blood Type Antibody Screen Antibody Identification Antigen Identification BRI, Polyspecific Positive BRI Work-up Crossmatch ([facility]) 03/15/22 03/15/22 03/16/22 04:51 04:51 05:49 WBC 4.3 L RBC 3.79 L Hgb 10.9 L Hct 36.1 L MCV 95.3 MCH 28.8 MCHC 30.2 L RDW 17.8 H Plt Count 131 L MPV 12.8 H Immature Gran % (Auto) Neut % (Auto) Lymph % (Auto) [place] % (Auto) Eos % (Auto) Baso % (Auto) Lymph # (Auto) [place] # (Auto) Eos # (Auto) Baso # (Auto) Abs Immat Gran (auto) Absolute Neuts (auto) Absolute Nucleated RBC 0.000 Nucleated RBC % (auto) 0.0 Smear Path Review PT 50.8 H INR 4.3 H D APTT 52.3 H aPTT Heparin Protocol Sodium Potassium Chloride Carbon Dioxide Anion Gap BUN Creatinine Estim Creat Clear Calc Estimated GFR Random Glucose Fasting Glucose Calcium Magnesium Total Bilirubin AST ALT Alkaline Phosphatase Troponin I High Sens 1104.7 H* B-Natriuretic Peptide 2247 H Total Protein Albumin Urine Color Urine Appearance Urine pH Ur Specific [place] Urine Protein Urine Glucose (UA) Urine Ketones Urine Blood Urine Nitrite Ur Leukocyte Esterase Urine RBC Urine WBC Ur Squamous Epith Cells Urine Bacteria Hyaline Casts COVID-19 (ANEUDY) COVID-19 Clin Com Influenza Type A (DANNI) Influenza Type B (DANNI) Influenza A & B Note Blood Type Antibody Screen Antibody Identification Antigen Identification BRI, Polyspecific Positive BRI Work-up Crossmatch ([facility]) 03/16/22 03/16/22 03/17/22 05:49 05:49 05:34 WBC RBC Hgb Hct MCV MCH MCHC RDW Plt Count MPV Immature Gran % (Auto) Neut % (Auto) Lymph % (Auto) [place] % (Auto) Eos % (Auto) Baso % (Auto) Lymph # (Auto) [place] # (Auto) Eos # (Auto) Baso # (Auto) Abs Immat Gran (auto) Absolute Neuts (auto) Absolute Nucleated RBC Nucleated RBC % (auto) Smear Path Review PT 46.0 H 31.3 H INR 3.9 H 2.7 H APTT aPTT Heparin Protocol Sodium 139 Potassium 4.9 Chloride 103 Carbon Dioxide 27 Anion Gap 14 BUN 80 H Creatinine 3.14 H Estim Creat Clear Calc 16.3 Estimated GFR 15 Random Glucose 76 Fasting Glucose Calcium 8.1 L Magnesium Total Bilirubin AST ALT Alkaline Phosphatase Troponin I High Sens B-Natriuretic Peptide Total Protein Albumin Urine Color Urine Appearance Urine pH Ur Specific [place] Urine Protein Urine Glucose (UA) Urine Ketones Urine Blood Urine Nitrite Ur Leukocyte Esterase Urine RBC Urine WBC Ur Squamous Epith Cells Urine Bacteria Hyaline Casts COVID-19 (ANEUDY) COVID-19 Clin Com Influenza Type A (DANNI) Influenza Type B (DANNI) Influenza A & B Note Blood Type Antibody Screen Antibody Identification Antigen Identification BRI, Polyspecific Positive BRI Work-up Crossmatch ([facility]) 03/17/22 03/17/22 03/17/22 05:34 05:34 15:41 WBC 5.4 6.1 RBC 3.64 L 3.80 L Hgb 10.6 L 11.0 L Hct 35.6 L 36.4 L MCV 97.8 95.8 MCH 29.1 28.9 MCHC 29.8 L 30.2 L RDW 17.9 H 18.0 H Plt Count 113 L 136 L MPV 11.9 11.3 Immature Gran % (Auto) Neut % (Auto) Lymph % (Auto) [place] % (Auto) Eos % (Auto) Baso % (Auto) Lymph # (Auto) [place] # (Auto) Eos # (Auto) Baso # (Auto) Abs Immat Gran (auto) Absolute Neuts (auto) Absolute Nucleated RBC 0.000 0.000 Nucleated RBC % (auto) 0.0 0.0 Smear Path Review PT INR APTT aPTT Heparin Protocol Sodium 139 Potassium 5.1 Chloride 102 Carbon Dioxide 29 Anion Gap 13 BUN 85 H Creatinine 3.19 H Estim Creat Clear Calc 16.1 Estimated GFR 14 Random Glucose 79 Fasting Glucose Calcium 8.1 L Magnesium 2.1 Total Bilirubin AST ALT Alkaline Phosphatase Troponin I High Sens B-Natriuretic Peptide Total Protein Albumin Urine Color Urine Appearance Urine pH Ur Specific [place] Urine Protein Urine Glucose (UA) Urine Ketones Urine Blood Urine Nitrite Ur Leukocyte Esterase Urine RBC Urine WBC Ur Squamous Epith Cells Urine Bacteria Hyaline Casts COVID-19 (ANEUDY) COVID-19 Clin Com Influenza Type A (DANNI) Influenza Type B (DANNI) Influenza A & B Note Blood Type Antibody Screen Antibody Identification Antigen Identification BRI, Polyspecific Positive BRI Work-up Crossmatch ([facility]) 03/17/22 03/17/22 03/18/22 23:18 23:18 06:05 WBC 5.0 RBC 3.29 L Hgb 9.5 L Hct 31.4 L MCV 95.4 MCH 28.9 MCHC 30.3 L RDW 17.8 H Plt Count 119 L MPV 10.6 Immature Gran % (Auto) Neut % (Auto) Lymph % (Auto) [place] % (Auto) Eos % (Auto) Baso % (Auto) Lymph # (Auto) [place] # (Auto) Eos # (Auto) Baso # (Auto) Abs Immat Gran (auto) Absolute Neuts (auto) Absolute Nucleated RBC 0.000 Nucleated RBC % (auto) 0.0 Smear Path Review PT 27.0 H INR 2.3 H APTT aPTT Heparin Protocol Sodium 139 Potassium 4.9 Chloride 103 Carbon Dioxide 27 Anion Gap 14 BUN 82 H Creatinine 3.06 H Estim Creat Clear Calc 16.7 Estimated GFR 15 Random Glucose 102 Fasting Glucose Calcium 8.1 L Magnesium 2.1 Total Bilirubin AST ALT Alkaline Phosphatase Troponin I High Sens B-Natriuretic Peptide Total Protein Albumin Urine Color Urine Appearance Urine pH Ur Specific [place] Urine Protein Urine Glucose (UA) Urine Ketones Urine Blood Urine Nitrite Ur Leukocyte Esterase Urine RBC Urine WBC Ur Squamous Epith Cells Urine Bacteria Hyaline Casts COVID-19 (ANEUDY) COVID-19 Clin Com Influenza Type A (DANNI) Influenza Type B (DANNI) Influenza A & B Note Blood Type Antibody Screen Antibody Identification Antigen Identification BRI, Polyspecific Positive BRI Work-up Crossmatch ([facility]) 03/18/22 03/18/22 03/18/22 06:05 06:05 11:08 WBC 4.6 L RBC 3.25 L Hgb 9.2 L 8.6 L Hct 31.0 L 28.9 L MCV 95.4 MCH 28.3 MCHC 29.7 L RDW 17.7 H Plt Count 120 L MPV 11.7 Immature Gran % (Auto) Neut % (Auto) Lymph % (Auto) [place] % (Auto) Eos % (Auto) Baso % (Auto) Lymph # (Auto) [place] # (Auto) Eos # (Auto) Baso # (Auto) Abs Immat Gran (auto) Absolute Neuts (auto) Absolute Nucleated RBC 0.000 Nucleated RBC % (auto) 0.0 Smear Path Review PT INR APTT aPTT Heparin Protocol Sodium 142 Potassium 5.0 Chloride 105 Carbon Dioxide 29 Anion Gap 13 BUN 84 H Creatinine 2.92 H Estim Creat Clear Calc 17.5 Estimated GFR 16 Random Glucose 87 Fasting Glucose Calcium 7.8 L Magnesium Total Bilirubin AST ALT Alkaline Phosphatase Troponin I High Sens B-Natriuretic Peptide Total Protein Albumin Urine Color Urine Appearance Urine pH Ur Specific [place] Urine Protein Urine Glucose (UA) Urine Ketones Urine Blood Urine Nitrite Ur Leukocyte Esterase Urine RBC Urine WBC Ur Squamous Epith Cells Urine Bacteria Hyaline Casts COVID-19 (ANEUDY) COVID-19 Clin Com Influenza Type A (DANNI) Influenza Type B (DANNI) Influenza A & B Note Blood Type Antibody Screen Antibody Identification Antigen Identification BRI, Polyspecific Positive BRI Work-up Crossmatch ([facility]) 03/18/22 03/18/22 03/19/22 12:36 22:24 05:24 WBC RBC Hgb 8.1 L Hct 26.7 L MCV MCH MCHC RDW Plt Count MPV Immature Gran % (Auto) Neut % (Auto) Lymph % (Auto) [place] % (Auto) Eos % (Auto) Baso % (Auto) Lymph # (Auto) [place] # (Auto) Eos # (Auto) Baso # (Auto) Abs Immat Gran (auto) Absolute Neuts (auto) Absolute Nucleated RBC Nucleated RBC % (auto) Smear Path Review PT 24.4 H INR 2.1 H APTT aPTT Heparin Protocol Sodium Potassium Chloride Carbon Dioxide Anion Gap BUN Creatinine Estim Creat Clear Calc Estimated GFR Random Glucose Fasting Glucose Calcium Magnesium Total Bilirubin AST ALT Alkaline Phosphatase Troponin I High Sens B-Natriuretic Peptide Total Protein Albumin Urine Color Urine Appearance Urine pH Ur Specific [place] Urine Protein Urine Glucose (UA) Urine Ketones Urine Blood Urine Nitrite Ur Leukocyte Esterase Urine RBC Urine WBC Ur Squamous Epith Cells Urine Bacteria Hyaline Casts COVID-19 (ANEUDY) COVID-19 Clin Com Influenza Type A (DANNI) Influenza Type B (DANNI) Influenza A & B Note Blood Type B Negative Antibody Screen POSITIVE Antibody Identification Anti-D Antigen Identification E Antigen - NEGATIVE BRI, Polyspecific NEGATIVE Positive BRI Work-up TNP Crossmatch ([facility]) See Detail 03/19/22 03/20/22 03/20/22 11:34 06:41 06:41 WBC 9.9 RBC 2.16 L D Hgb 6.1 L* D Hct 19.7 L* D MCV 91.2 MCH 28.2 MCHC 31.0 RDW 18.0 H Plt Count 123 L MPV 11.7 Immature Gran % (Auto) Neut % (Auto) Lymph % (Auto) [place] % (Auto) Eos % (Auto) Baso % (Auto) Lymph # (Auto) [place] # (Auto) Eos # (Auto) Baso # (Auto) Abs Immat Gran (auto) Absolute Neuts (auto) Absolute Nucleated RBC 0.000 Nucleated RBC % (auto) 0.0 Smear Path Review PT INR APTT aPTT Heparin Protocol 38.5 L Sodium 139 Potassium 5.6 H Chloride 107 Carbon Dioxide 22 Anion Gap 16 BUN 92 H Creatinine 2.99 H Estim Creat Clear Calc 17.1 Estimated GFR 15 Random Glucose Fasting Glucose 98 Calcium 7.2 L D Magnesium Total Bilirubin AST ALT Alkaline Phosphatase Troponin I High Sens B-Natriuretic Peptide Total Protein Albumin Urine Color Urine Appearance Urine pH Ur Specific [place] Urine Protein Urine Glucose (UA) Urine Ketones Urine Blood Urine Nitrite Ur Leukocyte Esterase Urine RBC Urine WBC Ur Squamous Epith Cells Urine Bacteria Hyaline Casts COVID-19 (ANEUDY) COVID-19 Clin Com Influenza Type A (DANNI) Influenza Type B (DANNI) Influenza A & B Note Blood Type Antibody Screen Antibody Identification Antigen Identification BRI, Polyspecific Positive BRI Work-up Crossmatch ([facility]) 03/21/22 03/21/22 03/22/22 05:21 05:21 01:02 WBC 10.2 10.1 RBC 2.24 L 2.18 L Hgb 6.8 L* 6.7 L* Hct 20.6 L* 20.1 L* MCV 92.0 92.2 MCH 30.4 30.7 MCHC 33.0 33.3 RDW 16.7 H 16.4 H Plt Count 116 L 126 L MPV 10.6 10.5 Immature Gran % (Auto) 1.1 H Neut % (Auto) 74.4 H Lymph % (Auto) 9.9 L [place] % (Auto) 13.8 H Eos % (Auto) 0.7 Baso % (Auto) 0.1 Lymph # (Auto) 1.0 L [place] # (Auto) 1.4 H Eos # (Auto) 0.1 Baso # (Auto) 0.0 Abs Immat Gran (auto) 0.11 H Absolute Neuts (auto) 7.5 Absolute Nucleated RBC 0.030 H 0.090 H Nucleated RBC % (auto) 0.3 H 0.9 H Smear Path Review PT INR APTT aPTT Heparin Protocol Sodium 137 Potassium 5.3 H Chloride 105 Carbon Dioxide 23 Anion Gap 14 BUN 99 H Creatinine 3.53 H Estim Creat Clear Calc 14.5 Estimated GFR 13 Random Glucose Fasting Glucose 91 Calcium 7.0 L Magnesium Total Bilirubin AST ALT Alkaline Phosphatase Troponin I High Sens B-Natriuretic Peptide Total Protein Albumin Urine Color Urine Appearance Urine pH Ur Specific [place] Urine Protein Urine Glucose (UA) Urine Ketones Urine Blood Urine Nitrite Ur Leukocyte Esterase Urine RBC Urine WBC Ur Squamous Epith Cells Urine Bacteria Hyaline Casts COVID-19 (ANEUDY) COVID-19 Clin Com Influenza Type A (DANIN) Influenza Type B (DANNI) Influenza A & B Note Blood Type Antibody Screen Antibody Identification Antigen Identification BRI, Polyspecific Positive BRI Work-up Crossmatch ([facility]) 03/22/22 03/22/22 03/22/22 04:02 04:02 04:02 WBC 10.6 RBC 2.08 L Hgb 6.4 L* Hct 19.4 L* MCV 93.3 MCH 30.8 MCHC 33.0 RDW 16.3 H Plt Count 115 L MPV 10.4 Immature Gran % (Auto) Neut % (Auto) Lymph % (Auto) [place] % (Auto) Eos % (Auto) Baso % (Auto) Lymph # (Auto) [place] # (Auto) Eos # (Auto) Baso # (Auto) Abs Immat Gran (auto) Absolute Neuts (auto) Absolute Nucleated RBC 0.080 H Nucleated RBC % (auto) 0.8 H Smear Path Review PT INR APTT aPTT Heparin Protocol Sodium 137 Potassium 5.8 H Chloride 106 Carbon Dioxide 21 L Anion Gap 16 BUN 102 H Creatinine 3.98 H Estim Creat Clear Calc 12.8 Estimated GFR 11 Random Glucose Fasting Glucose 94 Calcium 6.9 L Magnesium Total Bilirubin AST ALT Alkaline Phosphatase Troponin I High Sens B-Natriuretic Peptide Total Protein Albumin Urine Color Urine Appearance Urine pH Ur Specific [place] Urine Protein Urine Glucose (UA) Urine Ketones Urine Blood Urine Nitrite Ur Leukocyte Esterase Urine RBC Urine WBC Ur Squamous Epith Cells Urine Bacteria Hyaline Casts COVID-19 (ANEUDY) COVID-19 Clin Com Influenza Type A (DANNI) Influenza Type B (DANNI) Influenza A & B Note Blood Type B Negative Antibody Screen POSITIVE Antibody Identification Anti-D Antigen Identification BRI, Polyspecific Positive BRI Work-up Crossmatch ([facility]) See Detail 03/23/22 03/23/22 03/24/22 05:48 05:48 05:26 WBC 10.2 9.5 RBC 2.25 L 2.29 L Hgb 6.8 L* 7.1 L Hct 21.1 L 21.2 L MCV 93.8 92.6 MCH 30.2 31.0 MCHC 32.2 33.5 RDW 16.3 H 16.1 H Plt Count 130 L 126 L MPV 10.5 10.5 Immature Gran % (Auto) Neut % (Auto) Lymph % (Auto) [place] % (Auto) Eos % (Auto) Baso % (Auto) Lymph # (Auto) [place] # (Auto) Eos # (Auto) Baso # (Auto) Abs Immat Gran (auto) Absolute Neuts (auto) Absolute Nucleated RBC 0.060 H 0.030 H Nucleated RBC % (auto) 0.6 H 0.3 H Smear Path Review PT INR APTT aPTT Heparin Protocol Sodium 137 Potassium 5.3 H Chloride 104 Carbon Dioxide 23 Anion Gap 15 BUN 105 H Creatinine 4.38 H* Estim Creat Clear Calc 11.6 Estimated GFR 10 Random Glucose Fasting Glucose 99 Calcium 7.2 L Magnesium Total Bilirubin AST ALT Alkaline Phosphatase Troponin I High Sens B-Natriuretic Peptide Total Protein Albumin Urine Color Urine Appearance Urine pH Ur Specific [place] Urine Protein Urine Glucose (UA) Urine Ketones Urine Blood Urine Nitrite Ur Leukocyte Esterase Urine RBC Urine WBC Ur Squamous Epith Cells Urine Bacteria Hyaline Casts COVID-19 (ANEUDY) COVID-19 Clin Com Influenza Type A (DANNI) Influenza Type B (DANNI) Influenza A & B Note Blood Type Antibody Screen Antibody Identification Antigen Identification BRI, Polyspecific Positive BRI Work-up Crossmatch (AHG) 03/24/22 03/24/22 05:26 05:26 WBC RBC Hgb Hct MCV MCH MCHC RDW Plt Count MPV Immature Gran % (Auto) Neut % (Auto) Lymph % (Auto) [place] % (Auto) Eos % (Auto) Baso % (Auto) Lymph # (Auto) [place] # (Auto) Eos # (Auto) Baso # (Auto) Abs Immat Gran (auto) Absolute Neuts (auto) Absolute Nucleated RBC Nucleated RBC % (auto) Smear Path Review PT 13.6 H INR 1.2 H APTT aPTT Heparin Protocol Sodium 137 Potassium 5.1 Chloride 105 Carbon Dioxide 22 Anion Gap 15 BUN 110 H Creatinine 4.60 H* Estim Creat Clear Calc 11.1 Estimated GFR 9 Random Glucose Fasting Glucose 81 Calcium 7.8 L D Magnesium Total Bilirubin AST ALT Alkaline Phosphatase Troponin I High Sens B-Natriuretic Peptide Total Protein Albumin Urine Color Urine Appearance Urine pH Ur Specific [place] Urine Protein Urine Glucose (UA) Urine Ketones Urine Blood Urine Nitrite Ur Leukocyte Esterase Urine RBC Urine WBC Ur Squamous Epith Cells Urine Bacteria Hyaline Casts COVID-19 (ANEUDY) COVID-19 Clin Com Influenza Type A (DANNI) Influenza Type B (DANNI) Influenza A & B Note Blood Type Antibody Screen Antibody Identification Antigen Identification BRI, Polyspecific Positive BRI Work-up Crossmatch (AHG) Airway Mallampati Class: III Neck ROM: Full Denture: Upper and Lower Loose/Missing/Broken Teeth: Yes Heart: S1, S2 Lungs: diminished breath sounds b/l Assessment and Plan Assessment Anesthesia Assessment: Anesthesia Plan Discussed and Chart Reviewed Final Anesthetic Review Family History of Problems with Anesthesia: No History of Problems with Anesthesia: No NPO: Yes ASA Class: IV and Emergency Final Preanesthetic Review: Meds/Allgs Chart Reviewed, Consent Obtained/Reviewed and Anes Risks/Benef Reviewed Patient Risk: High Procedure Risk: Intermediate Anesthetic Plan Anesthetic Plan: GA Disposition: Inp. Admit - Standard Bed
--- NOTE | 2022-03-24 13:37 | MHC.SHP ---
Pre-Procedural Eval Section A Date of Service: 03/24/22 The patient is an INPATIENT: Yes Changes since office visit: No Cold of Flu in the past 2 weeks, No New Medical Problems, No Changes in Medication and No Patient answered all questions The History & Physical has been completed within 30 days and I have reviewed it.: Yes Section B Chief Complaint: Shortness of breath, CHF Allergies: Allergies Allergy/AdvReac Type Severity Reaction Status Date / Time TAPE,PAPER Allergy Unknown RASH TO Uncoded 03/13/22 14:54 PAPER TAPE Plan Diagnosis/Plan: Unchanged ( cystoscopy clot evacuation) I have reviewed the history and physical and performed a pertinent physical examination on my patient. No changes have occurred unless specified.
--- NOTE | 2022-03-24 14:08 | P.OP_ITS ---
Operative Note Operative Note Date of Service: 03/24/22 Narrative: PreOperative Diagnosis: gross hematuria Post Operative Diagnosis: gross hematuria with inflamed bladder Procedure: clot evacuation with extensive fulguration Surgeon: Dr Guillermo Joy Anesthesia: general Indications for procedure: persistent gross hematuria despite CBI Procedure: After informed consent was verified the patient was brought to the operating room and placed in a supine position. anesthesia was administered per protocol. the patient was placed in modified dorsal lithotomy position and prepped and draped in a sterile fashion. Safety pause time-out was performed confirming procedure and antibiotics. Cystoscope inserted. Large organized clot was seen within the bladder. Switched to resectoscope. Clot was resected and using the [employer] evacuator removed from the bladder. This was repeated a number of times until clot broke into pieces and was able to be fully evacuated. Bladder was carefully examined in seen to have generalize inflammation particular with the dome. These areas were fulgurated. Areas on the posterior wall so fulgurated. No definitive arterial lesion or bladder tumor was seen. The area on the dome may well have been a flat bladder tumor but with all clot and prior gait jackson is difficult to determine. Three Armenta catheter placed. CBI started. Will require secondary examination in the office once current episode resolved. Pathology: Drains: 3-way Armenta for catheter
[2022-03-24] MEDS: Ascorbic Acid 500 MG TABLET PO (22:34)
[2022-03-24] MEDS: Docusate Sodium 100 MG CAPSULE 200 MG PO (22:34)
[2022-03-24] MEDS: Atorvastatin Calcium 40 MG TABLET PO (22:34)
[2022-03-24] MEDS: traZODone HCL 50 MG TABLET PO (22:35)
[2022-03-25] VITALS (13 sets, daily range): BP systolic 95–118; BP diastolic 51–60; PULSE 67–117; RESP 16–18; TEMP 36.1–36.9; O2SAT 96–100
[2022-03-25] MEDS: 0.9 % Sodium Chloride 500 ML 250 ML IV (01:09)
[2022-03-25] MEDS: Albuterol/Iprat 2.5/0.5MG 3 ML AMPUL.NEB INHALE (03:43)
[2022-03-25 05:04] LABS: Mean Corpuscular HGB Conc 32.3 g/dl (31.0-35.0); Mean Corpuscular Hemoglobin 30.6 pg (27.0-33.0); Mean Corpuscular Volume 94.7 fL (80.0-98.0); Mean Platelet Volume 10.2 fL (9.4-12.3); Platelet Count 119 X10*3/uL (160-400); Red Blood Count 2.09 X10*6/uL (4.20-5.50); Red Cell Distribution Width 16.1 % (11.0-16.0); White Blood Count 9.1 X10*3/uL (4.8-10.8)
[2022-03-25 05:23] LABS: Anion Gap 16 (12-20); Blood Urea Nitrogen 108 mg/dL (9-16); Calcium 7.7 mg/dL (8.4-10.2); Carbon Dioxide 22 mmol/L (22-29); Chloride 107 mmol/L (96-108); Creatinine Clr Calc Pharmacy 11.1; Estimated Glomerular Filt Rate 9; Glucose Fasting 85 mg/dL (60-99); Potassium 5.7 mmol/L (3.3-5.1); Sodium 139 mmol/L (135-145)
[2022-03-25 05:24] LABS: Hematocrit 19.8 % (37.0-47.0); Hemoglobin 6.4 g/dl (12.0-16.0)
--- NOTE | 2022-03-25 05:35 | PM.EVENT ---
Event Note Date of Service: 03/25/22 Event Note: Anemia: Hgb 6.4. ordred 1u prbc.
[2022-03-25] MEDS: Levothyroxine Sodium 112 MCG, Levothyroxine Sodium 25 MCG 137 MCG PO (06:10)
[2022-03-25] MEDS: Omeprazole 20 MG CAPSULE.DR PO (06:10)
--- NOTE | 2022-03-25 06:56 | HO.POSTANES ---
Post Anesthesia Evaluation Post Anesthesia Evaluation Vital Signs: Vital Signs Temp Pulse Resp BP Pulse Ox 03/25/22 03:33 90 16 03/25/22 03:15 97.8 F 85 18 97/57 L 100 03/24/22 23:44 97.2 F 95 17 95/48 L 100 03/24/22 19:28 98.6 F 95 18 106/52 L 100 Anesthesia: General Mental Status: Awake Pain Control: Satisfactory Nausea/Vomiting: None Hydration: Adequate Anesthesia-Related Issues: No Anes. Related Issues
[2022-03-25] MEDS: 0.9 % Sodium Chloride Flush 3 ML SYRINGE IVFLUSH ×3 (07:35→22:54)
--- NOTE | 2022-03-25 09:13 | P.PNIM_ITS ---
Subjective Subjective Date of Service: 03/25/22 Interval History: cc: sob interval history:hematuria significantly improved, wants to get out of bed Cardiovascular Cardiovascular: Reports no additional cardiovascular complaints Respiratory Respiratory: Reports no additional respiratory complaints Physical Exam Vital Signs: Vital Signs: Last Vital Signs Temp 98.5 F 03/25/22 07:38 Pulse 111 H 03/25/22 07:38 Resp 17 03/25/22 07:38 BP 95/54 L 03/25/22 07:38 Pulse Ox 100 03/25/22 07:38 BMI result Body Mass Index 20.2 General: AO X 3, ill appearing Resp:? CTA bilateral, no accessory muscles used CVS: S1,S2,RRR GI: soft, non tender, non distended Neuro:? motor grossly intact, alert Psych: appropriate affect, appropriate insight? Objective Data Active Medications Acetaminophen (Acetaminophen 325 Mg Tablet) 650 mg PO Q6H PRN PRN Reason: Pain, Mild (Pain Scale 1-3) Last Admin: 03/24/22 08:36 Dose: 650 mg Documented by: DENISE Albuterol/Ipratropium (Albuterol/Iprat 2.5/0.5mg 3 Ml Ampul.Neb) 3 ml INHALE RQ4H PRN PRN Reason: Shortness of Breath/Wheezing Last Admin: 03/25/22 03:43 Dose: 3 ml Documented by: FARHAN Artificial Tears (Artificial Tears 15 Ml Drops) 1 drop EYE-BOTH TID ON LICENSE OF [facility] Last Admin: 03/24/22 22:38 Dose: 1 drop Documented by: BIB Ascorbic Acid (Ascorbic Acid 500 Mg Tablet) 500 mg PO BID ON LICENSE OF [facility] Last Admin: 03/24/22 22:34 Dose: 500 mg Documented by: BIB Atorvastatin Calcium (Atorvastatin Calcium 40 Mg Tablet) 40 mg PO BEDTIME ON LICENSE OF [facility] Last Admin: 03/24/22 22:34 Dose: 40 mg Documented by: BIB Calcium Carbonate (Calcium Carbonate 500 Mg Tablet) 750 mg PO DAILY ON LICENSE OF [facility] Last Admin: 03/24/22 08:41 Dose: Not Given Documented by: DENISE Non-Admin Reason: NPO Carvedilol (Carvedilol 12.5 Mg Tablet) 12.5 mg PO BIDWM ON LICENSE OF [facility]; Protocol Last Admin: 03/18/22 08:57 Dose: 12.5 mg Documented by: RENETTA Docusate Sodium (Docusate Sodium 100 Mg Capsule) 100 mg PO DAILY PRN PRN Reason: Constipation Last Admin: 03/19/22 10:54 Dose: 100 mg Documented by: RENETTA Docusate Sodium (Docusate Sodium 100 Mg Capsule) 200 mg PO BEDTIME ON LICENSE OF [facility] Last Admin: 03/24/22 22:34 Dose: 200 mg Documented by: BIB Fluoxetine HCl (Fluoxetine Hcl 20 Mg Capsule) 40 mg PO DAILY ON LICENSE OF [facility] Last Admin: 03/24/22 08:41 Dose: Not Given Documented by: DENISE Non-Admin Reason: NPO Furosemide (Furosemide 20 Mg Tablet) 20 mg PO BID@0900,1800 ON LICENSE OF [facility]; Protocol Last Admin: 03/18/22 08:57 Dose: 20 mg Documented by: RENETTA Guaifenesin (Guaifenesin 100 Mg/5 Ml Liquid) 5 ml PO Q6H PRN PRN Reason: Cough Last Admin: 03/23/22 05:18 Dose: 5 ml Documented by: PETRA Isosorbide Dinitrate (Isosorbide Dinitrate 5 Mg Tablet) 5 mg PO BID ON LICENSE OF [facility]; Protocol Last Admin: 03/18/22 08:57 Dose: 5 mg Documented by: RENETTA Levothyroxine Sodium 112 mcg/ (Levothyroxine Sodium 25 mcg) 137 mcg PO DAILY@0600 ON LICENSE OF [facility] Last Admin: 03/25/22 06:10 Dose: 137 mcg Documented by: BIB Omeprazole (Omeprazole 20 Mg Capsule.) 20 mg PO DAILY@0630 ON LICENSE OF [facility] Last Admin: 03/25/22 06:10 Dose: 20 mg Documented by: BIB Oxybutynin Chloride (Oxybutynin Chloride Er 5 Mg Tab.Er.24) 10 mg PO DAILY ON LICENSE OF [facility] Last Admin: 03/24/22 08:41 Dose: Not Given Documented by: DENISE Non-Admin Reason: NPO Pharmacy Consult (Consult Rx Perform Med Rec) 1 each MISCELLANE ONCE PRN PRN Reason: Consult order Sodium Chloride (0.9 % Sodium Chloride Flush 3 Ml Syringe) 3 ml IVFLUSH QSHIFT ON LICENSE OF [facility] Last Admin: 03/25/22 07:35 Dose: 3 ml Documented by: JOSE Trazodone HCl (Trazodone Hcl 50 Mg Tablet) 50 mg PO BEDTIME PRN PRN Reason: for insomnia Last Admin: 03/24/22 22:35 Dose: 50 mg Documented by: BIB Labs CBC & Chem 7: 03/25/22 04:44 03/25/22 04:44 Labs: Laboratory Results - last 24 hr 03/22/22 03/25/22 03/25/22 04:02 04:44 04:44 MCV 94.7 MCH 30.6 MCHC 32.3 RDW 16.1 H Plt Count 119 L MPV 10.2 Absolute Nucleated RBC 0.000 Nucleated RBC % (auto) 0.0 Anion Gap 16 Estim Creat Clear Calc 11.1 Estimated GFR 9 Fasting Glucose 85 Calcium 7.7 L Blood Type B Negative Antibody Screen POSITIVE Antibody Identification Anti-D Crossmatch (AHG) See Detail 03/25/22 06:17 MCV MCH MCHC RDW Plt Count MPV Absolute Nucleated RBC Nucleated RBC % (auto) Anion Gap Estim Creat Clear Calc Estimated GFR Fasting Glucose Calcium Blood Type B Negative Antibody Screen POSITIVE Antibody Identification Anti-D Crossmatch (AHG) See Detail Assessment and Plan (1) Gross hematuria: Status: Acute Plan 71 year old female with history of severe cardiomyopathy with EF 15-20% s/p AICD/PM, chronic atrial fibrillation, [place] mechanical mitral valve on [place], CKD, hypothyroidism, HLD, HTN, CAD, amyloidosis who presented to the ED with shortness of breath found to be in heart failure., now complicated by hematuria Acute blood loss anemia secondary to hematuria complicated by hypotension, weakness received 2 units on 03/20, 1unit 03/21, 1 unit 03/22, 1 unit 03/23, hgb 6.4, will give another 2 units today s/p cysto, fulguration (see report) holding coumadin/heparin for now, when stable for a couple days, will restart he fernando and then if stable restart coumadin monitor cbc History of mechanical mitral valve. holding AC for bleeding Acute on chronic HFrEF holding Coreg, Isodril for hypotension Elevated troponin no chest pain, EKG with no significant change from previous trops chronically elevated, likely part due to decreased clearance from CKD 4 carmen on CKD 4, likely ATN monitor, avoid hypotension nephro eval, monitor Hyperkalemia 5.7 today, annette, monitor thrombocytopenia chronic hypothyroidism? Continue home levothyroxine hypertension isodril, coreg on hold for hypotnesion hyperlipidemia? Continue statin mood continue fluoxetine DVT prophylaxis - mechanical HCP - daughter Full code reason for continued hospitalization: hematuria, monitoring cbc,eventually will need to restart AC under close monitoring. Quality Stroke Does the patient have a stroke diagnosis?: No VTE Prior VTE?: No VTE Risk Level:: Medical - moderate - high VTE Device Contraindication: N/A - Device Ordered VTE Drug Contraindication: N/A - Med Ordered
[2022-03-25] MEDS: Artificial Tears 15 ML DROPS 1 DROP EYE-BOTH ×3 (09:55→22:54)
[2022-03-25] MEDS: Ascorbic Acid 500 MG TABLET PO ×2 (10:01→22:50)
[2022-03-25] MEDS: FLUoxetine HCl 20 MG CAPSULE 40 MG PO (10:01)
[2022-03-25] MEDS: Sodium Zirconium Cyclosilicate 10 GM POWD.PACK PO (10:04)
--- NOTE | 2022-03-25 10:39 | PM.PNNEP ---
Subjective Subjective Date of Service: 03/25/22 Principal diagnosis: acute on chronic CHF, hematuria, mechanical Mitral valve Interval history: hematuria improved; Creatinine plateaued Physical Exam Vital Signs: Vital Signs: Last Vital Signs Temp 98.5 F 03/25/22 07:38 Pulse 111 H 03/25/22 07:38 Resp 17 03/25/22 07:38 BP 95/54 L 03/25/22 07:38 Pulse Ox 100 03/25/22 07:38 BMI result Body Mass Index 20.2 Const: General: no acute distress Orientation/consciousness: patient oriented x3 Eyes: EOM: EOMs intact bilaterally Resp: Auscultation: diminished lung sounds Cardio: Rate: regular rate GI: Palpation (GI): Soft to palpation Neuro: General: patient oriented x3 and moves all extremities Objective Data Labs CBC & Chem 7: 03/25/22 04:44 03/25/22 04:44 Labs: Laboratory Results - last 24 hr 03/22/22 03/25/22 03/25/22 04:02 04:44 04:44 WBC 9.1 RBC 2.09 L Hgb 6.4 L* Hct 19.8 L* MCV 94.7 MCH 30.6 MCHC 32.3 RDW 16.1 H Plt Count 119 L MPV 10.2 Absolute Nucleated RBC 0.000 Nucleated RBC % (auto) 0.0 Sodium 139 Potassium 5.7 H Chloride 107 Carbon Dioxide 22 Anion Gap 16 BUN 108 H Creatinine 4.60 H* Estim Creat Clear Calc 11.1 Estimated GFR 9 Fasting Glucose 85 Calcium 7.7 L Blood Type B Negative Antibody Screen POSITIVE Antibody Identification Anti-D Crossmatch (AHG) See Detail 03/25/22 06:17 WBC RBC Hgb Hct MCV MCH MCHC RDW Plt Count MPV Absolute Nucleated RBC Nucleated RBC % (auto) Sodium Potassium Chloride Carbon Dioxide Anion Gap BUN Creatinine Estim Creat Clear Calc Estimated GFR Fasting Glucose Calcium Blood Type B Negative Antibody Screen POSITIVE Antibody Identification Anti-D Crossmatch (AHG) See Detail Procedures Date of Service Date of Service: 03/25/22 Assessment & Plan Assessment and plan (1) Acute kidney failure: Status: Acute Assessment and Plan: ALIZA due to compromise in renal perfusion Has advanced CKD at baseline Serum creatinine plateaued No indication for renal replacement yet Low K Diet; Lokelma PRN C/W rest of current management Labs AM. Shall closely F/U Time Spent With Patient Time: Total time spent is greater than 50% in coordination of care (as documented) at patient's floor/unit and/or counseling patient: Progress Note: Quality Stroke Does the patient have a stroke diagnosis?: No
--- NOTE | 2022-03-25 10:42 | PM.UROPN ---
Subjective Subjective Date of Service: 03/25/22 Interval history: Significant improvement in hematuria CBI down to trickle It appears that persistent hematuria had been result of combination of Armenta catheter trauma to posterior wall of bladder and anticoagulation If possible would continue to hold anticoagulation for 24 more hours before restarting Physical Exam Vital Signs: Vital Signs: Last Vital Signs Temp 98.5 F 03/25/22 07:38 Pulse 111 H 03/25/22 07:38 Resp 17 03/25/22 07:38 BP 95/54 L 03/25/22 07:38 Pulse Ox 100 03/25/22 07:38 BMI result Body Mass Index 20.2 Const: General: cooperative, healthy appearing, comfortable and no acute distress Orientation/consciousness: patient oriented x3 HEENT: Face and sinus: Yes normal facial exam Mouth: moist mucous membranes Neck: Neck: Yes normal visual inspection, Yes full ROM and Yes trachea midline Chest: Chest palpation & inspection: normal inspection of the chest Resp: Effort & Inspection: normal respiratory effort, able to speak in complete sentences and no respiratory distress GI: Inspection: Yes normal to inspection Back/Spine/Pelvis: Cervical Spine: normal cervical lordosis Thoracic/Lumbar Spine: thoracic and lumbar spine normal to inspection Skin: General skin exam: no rashes or lesions noted Neuro: General: patient oriented x3, tone normal and moves all extremities Extrem: General: Yes normal to inspection and Yes capillary refill normal Urology Results Labs CBC & Chem 7: 03/25/22 04:44 03/25/22 04:44 Labs: Laboratory Results - last 24 hr 03/22/22 03/25/22 03/25/22 04:02 04:44 04:44 WBC 9.1 RBC 2.09 L Hgb 6.4 L* Hct 19.8 L* MCV 94.7 MCH 30.6 MCHC 32.3 RDW 16.1 H Plt Count 119 L MPV 10.2 Absolute Nucleated RBC 0.000 Nucleated RBC % (auto) 0.0 Sodium 139 Potassium 5.7 H Chloride 107 Carbon Dioxide 22 Anion Gap 16 BUN 108 H Creatinine 4.60 H* Estim Creat Clear Calc 11.1 Estimated GFR 9 Fasting Glucose 85 Calcium 7.7 L Blood Type B Negative Antibody Screen POSITIVE Antibody Identification Anti-D Crossmatch (AHG) See Detail 03/25/22 06:17 WBC RBC Hgb Hct MCV MCH MCHC RDW Plt Count MPV Absolute Nucleated RBC Nucleated RBC % (auto) Sodium Potassium Chloride Carbon Dioxide Anion Gap BUN Creatinine Estim Creat Clear Calc Estimated GFR Fasting Glucose Calcium Blood Type B Negative Antibody Screen POSITIVE Antibody Identification Anti-D Crossmatch ([facility]) See Detail Progress Note: A&P Assessment and plan (1) Gross hematuria: Status: Acute Plan Hold anticoagulation for 24 more hours Would observe after restarting for recurrence of hematuria Armenta catheter should stay 14 days to allow for bladder healing Time Spent With Patient Time: Total time spent is greater than 50% in coordination of care (as documented) at patient's floor/unit and/or counseling patient: Progress Note: Quality Stroke Does the patient have a stroke diagnosis?: No
[2022-03-25] MEDS: Furosemide 40 MG/4 ML VIAL IVPUSH (13:40)
--- NOTE | 2022-03-25 15:40 | MHC.CM.PN ---
PER PHYSICIAN ROUNDS, PATIENT MAY REQUIRE TWO MORE DAYS PRIOR TO RESTART OF HEPARIN RECEIVED PRBC TODAY
--- NOTE | 2022-03-25 19:31 | MHC.MBSS ---
Anemia, unspecified (03/15/22) Hyperkalemia (03/15/22) Ischemic cardiomyopathy (03/15/22) Chronic atrial fibrillation, unspecified (03/15/22) Acute on chronic combined systolic (congestive) and diastolic (congestive) heart failure (03/15/22) Acute kidney failure, unspecified (03/15/22) Chronic kidney disease, stage 4 (severe) (03/15/22) Gross hematuria (03/15/22) Hematuria, unspecified (03/15/22) Presence of prosthetic heart valve (03/15/22) Presence of automatic (implantable) cardiac defibrillator (03/15/22)
--- NOTE | 2022-03-25 19:32 | PC.NURSE ---
Pt OOB to recliner most of shift. Denies pain. CBI infusing, rate adjusted as output changes from punch colored to clear. Shreds noted from time to time. No leaking around catheter. PPt received 2 units blood with IV lasix in between. Tolerated well.
[2022-03-25] MEDS: traZODone HCL 50 MG TABLET PO (22:50)
[2022-03-25] MEDS: guaiFENesin 100 MG/5 ML LIQUID PO (22:50)
[2022-03-25] MEDS: Docusate Sodium 100 MG CAPSULE 200 MG PO (22:50)
[2022-03-25] MEDS: Atorvastatin Calcium 40 MG TABLET PO (22:50)
[2022-03-26] VITALS (7 sets, daily range): BP systolic 93–111; BP diastolic 47–67; PULSE 79–114; RESP 16–18; TEMP 36.3–36.8; O2SAT 92–100; BMI 20.2
[2022-03-26] MEDS: Omeprazole 20 MG CAPSULE.DR PO (05:19)
[2022-03-26] MEDS: Levothyroxine Sodium 112 MCG, Levothyroxine Sodium 25 MCG 137 MCG PO (05:19)
[2022-03-26 06:58] LABS: Hematocrit 25.5 % (37.0-47.0); Hemoglobin 8.3 g/dl (12.0-16.0); Mean Corpuscular HGB Conc 32.5 g/dl (31.0-35.0); Mean Corpuscular Hemoglobin 30.6 pg (27.0-33.0); Mean Corpuscular Volume 94.1 fL (80.0-98.0); Mean Platelet Volume 10.1 fL (9.4-12.3); NRBC Pct Auto 0.2 /100WBC (0.0-0.2); Platelet Count 134 X10*3/uL (160-400); Red Blood Count 2.71 X10*6/uL (4.20-5.50); Red Cell Distribution Width 16.5 % (11.0-16.0); White Blood Count 10.5 X10*3/uL (4.8-10.8)
[2022-03-26 07:08] LABS: Anion Gap 14 (12-20); Blood Urea Nitrogen 108 mg/dL (9-16); Calcium 7.6 mg/dL (8.4-10.2); Carbon Dioxide 23 mmol/L (22-29); Chloride 106 mmol/L (96-108); Creatinine Clr Calc Pharmacy 10.6; Estimated Glomerular Filt Rate 9; Glucose Fasting 76 mg/dL (60-99); Sodium 138 mmol/L (135-145)
[2022-03-26] MEDS: FLUoxetine HCl 20 MG CAPSULE 40 MG PO (07:56)
[2022-03-26] MEDS: Ascorbic Acid 500 MG TABLET PO ×2 (07:56→21:26)
[2022-03-26] MEDS: 0.9 % Sodium Chloride Flush 3 ML SYRINGE IVFLUSH ×3 (07:56→21:26)
[2022-03-26] MEDS: Artificial Tears 15 ML DROPS 1 DROP EYE-BOTH ×3 (07:57→21:26)
[2022-03-26] MEDS: Sodium Zirconium Cyclosilicate 10 GM POWD.PACK PO (11:23)
--- NOTE | 2022-03-26 11:52 | PM.PNNEP ---
Subjective Subjective Date of Service: 03/26/22 Principal diagnosis: acute on chronic CHF, hematuria, mechanical Mitral valve Interval history: Events noted. All recent data reviewed Physical Exam Vital Signs: Vital Signs: Last Vital Signs Temp 97.8 F 03/26/22 07:35 Pulse 79 03/26/22 07:35 Resp 16 03/26/22 07:35 BP 93/52 L 03/26/22 07:35 Pulse Ox 97 03/26/22 07:35 BMI result Body Mass Index 20.2 Const: General: no acute distress Orientation/consciousness: patient oriented x3 Eyes: EOM: EOMs intact bilaterally Neck: Neck: Yes supple Resp: Auscultation: diminished lung sounds Cardio: Rate: regular rate GI: Palpation (GI): Soft to palpation Neuro: General: patient oriented x3 and moves all extremities Objective Data Labs CBC & Chem 7: 03/26/22 06:13 03/26/22 06:13 Labs: Laboratory Results - last 24 hr 03/25/22 03/26/22 03/26/22 06:17 06:13 06:13 WBC 10.5 RBC 2.71 L D Hgb 8.3 L D Hct 25.5 L D MCV 94.1 MCH 30.6 MCHC 32.5 RDW 16.5 H Plt Count 134 L MPV 10.1 Absolute Nucleated RBC 0.020 H Nucleated RBC % (auto) 0.2 Sodium 138 Potassium 5.0 Chloride 106 Carbon Dioxide 23 Anion Gap 14 BUN 108 H Creatinine 4.81 H* Estim Creat Clear Calc 10.6 Estimated GFR 9 Fasting Glucose 76 Calcium 7.6 L Blood Type B Negative Antibody Screen POSITIVE Antibody Identification Anti-D Crossmatch (AHG) See Detail Procedures Date of Service Date of Service: 03/26/22 Assessment & Plan Assessment and plan (1) Acute kidney failure: Status: Acute Assessment and Plan: ALIZA due to compromise in renal perfusion Has advanced CKD at baseline Serum creatinine marginally worse GFR should be even lower due to poor muscle mass No indication for renal replacement today( D/W pt) Low K Diet; Lokelma daily C/W rest of current management Labs AM. Shall closely F/U Time Spent With Patient Time: Total time spent is greater than 50% in coordination of care (as documented) at patient's floor/unit and/or counseling patient: Progress Note: Quality Stroke Does the patient have a stroke diagnosis?: No
[2022-03-26] MEDS: guaiFENesin LA 600 MG TAB.ER.12H PO ×2 (12:32→21:26)
--- NOTE | 2022-03-26 13:38 | MHC.CLN ---
NUTRITION STAGE II WOUND TO COCCYX. DIET=2 GRAM SODIUM, LOW POTASSIUM. ADDING ENSURE CLEAR BID TO PROVIDE ADDITIONAL 480 KCAL, 16 G PROTEIN.
[2022-03-26] MEDS: Albuterol/Iprat 2.5/0.5MG 3 ML AMPUL.NEB INHALE (14:02)
--- NOTE | 2022-03-26 15:42 | P.PNIM_ITS ---
Subjective Subjective Date of Service: 03/26/22 Interval History: cc: sob interval history: hematuria improving while on CBI Denies any fever or pain Review of Systems No fever, chills but reports generalized weakness No chest pain, palpitation No shortness of breath or coughing No abdominal pain, nausea or vomiting No urinary symptoms No any rash or wounds Physical Exam Vital Signs: Vital Signs: Last Vital Signs Temp 98.3 F 03/26/22 15:36 Pulse 99 03/26/22 15:36 Resp 18 03/26/22 15:36 BP 94/48 L 03/26/22 15:36 Pulse Ox 92 03/26/22 15:36 BMI result Body Mass Index 20.2 Const: Other: General: AO X 3, no acute distress Resp: some rales at bases, 1+ leg edema CVS: S1,S2,RRR GI: +BS, no tenderness,, no distention Skin: No rash noticed Neuro: motor grossly intact, alert and interactive Psych: appropriate affect Objective Data Active Medications Acetaminophen (Acetaminophen 325 Mg Tablet) 650 mg PO Q6H PRN PRN Reason: Pain, Mild (Pain Scale 1-3) Last Admin: 03/24/22 08:36 Dose: 650 mg Documented by: DENISE Albuterol/Ipratropium (Albuterol/Iprat 2.5/0.5mg 3 Ml Ampul.Neb) 3 ml INHALE RQ4H PRN PRN Reason: Shortness of Breath/Wheezing Last Admin: 03/26/22 14:02 Dose: 3 ml Documented by: WICHO Artificial Tears (Artificial Tears 15 Ml Drops) 1 drop EYE-BOTH TID [facility] Last Admin: 03/26/22 07:57 Dose: 1 drop Documented by: JOSE Ascorbic Acid (Ascorbic Acid 500 Mg Tablet) 500 mg PO BID [facility] Last Admin: 03/26/22 07:56 Dose: 500 mg Documented by: JOSE Atorvastatin Calcium (Atorvastatin Calcium 40 Mg Tablet) 40 mg PO BEDTIME [facility] Last Admin: 03/25/22 22:50 Dose: 40 mg Documented by: BIB Calcium Carbonate (Calcium Carbonate 500 Mg Tablet) 750 mg PO DAILY [facility] Last Admin: 03/26/22 07:56 Dose: 750 mg Documented by: JOSE Carvedilol (Carvedilol 12.5 Mg Tablet) 12.5 mg PO BIDWM [facility]; Protocol Last Admin: 03/18/22 08:57 Dose: 12.5 mg Documented by: RENETTA Docusate Sodium (Docusate Sodium 100 Mg Capsule) 100 mg PO DAILY PRN PRN Reason: Constipation Last Admin: 03/19/22 10:54 Dose: 100 mg Documented by: RENETTA Docusate Sodium (Docusate Sodium 100 Mg Capsule) 200 mg PO BEDTIME [facility] Last Admin: 03/25/22 22:50 Dose: 200 mg Documented by: BIB Fluoxetine HCl (Fluoxetine Hcl 20 Mg Capsule) 40 mg PO DAILY [facility] Last Admin: 03/26/22 07:56 Dose: 40 mg Documented by: JOSE Furosemide (Furosemide 20 Mg Tablet) 20 mg PO BID@0900,1800 [facility]; Protocol Last Admin: 03/18/22 08:57 Dose: 20 mg Documented by: RENETTA Guaifenesin (Guaifenesin 100 Mg/5 Ml Liquid) 5 ml PO Q6H PRN PRN Reason: Cough Last Admin: 03/25/22 22:50 Dose: 5 ml Documented by: BIB Guaifenesin (Guaifenesin La 600 Mg Tab.Er.12h) 600 mg PO BID [facility] Last Admin: 03/26/22 12:32 Dose: 600 mg Documented by: JOSE Isosorbide Dinitrate (Isosorbide Dinitrate 5 Mg Tablet) 5 mg PO BID [facility]; Protocol Last Admin: 03/18/22 08:57 Dose: 5 mg Documented by: RENETAT Levothyroxine Sodium 112 mcg/ (Levothyroxine Sodium 25 mcg) 137 mcg PO DAILY@0600 [facility] Last Admin: 03/26/22 05:19 Dose: 137 mcg Documented by: BIB Omeprazole (Omeprazole 20 Mg Capsule.Dr) 20 mg PO DAILY@0630 [facility] Last Admin: 03/26/22 05:19 Dose: 20 mg Documented by: BIB Oxybutynin Chloride (Oxybutynin Chloride Er 5 Mg Tab.Er.24) 10 mg PO DAILY [facility] Last Admin: 03/26/22 07:57 Dose: 10 mg Documented by: JOSE Pharmacy Consult (Consult Rx Perform Med Rec) 1 each MISCELLANE ONCE PRN PRN Reason: Consult order Sodium Chloride (0.9 % Sodium Chloride Flush 3 Ml Syringe) 3 ml IVFLUSH QSHIFT [facility] Last Admin: 03/26/22 07:56 Dose: 3 ml Documented by: JOSE Trazodone HCl (Trazodone Hcl 50 Mg Tablet) 50 mg PO BEDTIME PRN PRN Reason: for insomnia Last Admin: 03/25/22 22:50 Dose: 50 mg Documented by: BIB Labs CBC & Chem 7: 03/26/22 06:13 03/26/22 06:13 Labs: Laboratory Results - last 24 hr 03/25/22 03/26/22 03/26/22 06:17 06:13 06:13 MCV 94.1 MCH 30.6 MCHC 32.5 RDW 16.5 H Plt Count 134 L MPV 10.1 Absolute Nucleated RBC 0.020 H Nucleated RBC % (auto) 0.2 Anion Gap 14 Estim Creat Clear Calc 10.6 Estimated GFR 9 Fasting Glucose 76 Calcium 7.6 L Crossmatch (AHG) See Detail Assessment and Plan (1) Acute kidney failure: Status: Acute (2) Gross hematuria: Status: Acute (3) Acute on chronic heart failure with reduced ejection fraction and diastolic dysfunction: Status: Acute (4) Hyperkalemia: Status: Acute (5) Hypotension: Status: Acute Plan 71 year old female with history of severe cardiomyopathy with EF 15-20% s/p AICD/PM, chronic atrial fibrillation, [place] mechanical mitral valve on [place], CKD, hypothyroidism, HLD, HTN, CAD, amyloidosis who presented to the ED with shortness of breath found to be in heart failure., now complicated by hematuria Acute blood loss anemia secondary to hematuria complicated by hypotension, weakness received 2 units on 03/20, 1unit 03/21, 1 unit 03/22, 1 unit 03/23, hgb 6.4, another 2 units 03/25 , Hb 8.3 s/p cysto, fulguration (see report) holding coumadin/heparin for now, when stable for a couple days, will restart heparin and then if stable restart coumadin monitor cbc History of mechanical mitral valve. holding AC for bleeding Acute on chronic HFrEF holding Coreg, Isodril for hypotension Elevated troponin no chest pain, EKG with no significant change from previous trops chronically elevated, likely part due to decreased clearance from CKD 4 carmen on CKD 4, likely ATN Creatinine mildly worse at 4.8 monitor, avoid hypotension nephro eval, monitor Hyperkalemia 5 today, daily lokelma, monitor thrombocytopenia chronic hypothyroidism? Continue home levothyroxine hypertension isodril, coreg on hold for hypotnesion hyperlipidemia? Continue statin mood continue fluoxetine DVT prophylaxis mechanical HCP, her daughter reason for continued hospitalization: hematuria, monitoring cbc,eventually will need to restart AC under close monitoring to prevent rebleeding and possible decompensation. Quality Stroke Does the patient have a stroke diagnosis?: No VTE Prior VTE?: No VTE Risk Level:: Medical - moderate - high VTE Device Contraindication: N/A - Device Ordered VTE Drug Contraindication: N/A - Med Ordered
[2022-03-26] MEDS: Docusate Sodium 100 MG CAPSULE 200 MG PO (21:26)
[2022-03-26] MEDS: Atorvastatin Calcium 40 MG TABLET PO (21:26)
[2022-03-26] MEDS: guaiFENesin 100 MG/5 ML LIQUID PO (23:28)
[2022-03-26] MEDS: traZODone HCL 50 MG TABLET PO (23:28)
[2022-03-27 03:32] VITALS: BP 108/67; PULSE 94; RESP 14; TEMP 36.3; O2SAT 99
[2022-03-27] MEDS: Levothyroxine Sodium 112 MCG, Levothyroxine Sodium 25 MCG 137 MCG PO (05:56)
[2022-03-27] MEDS: Omeprazole 20 MG CAPSULE.DR PO (05:56)
[2022-03-27 07:13] LABS: Hematocrit 27.5 % (37.0-47.0); Hemoglobin 8.9 g/dl (12.0-16.0); Mean Corpuscular HGB Conc 32.4 g/dl (31.0-35.0); Mean Corpuscular Hemoglobin 30.6 pg (27.0-33.0); Mean Corpuscular Volume 94.5 fL (80.0-98.0); Mean Platelet Volume 10.2 fL (9.4-12.3); Platelet Count 149 X10*3/uL (160-400); Red Blood Count 2.91 X10*6/uL (4.20-5.50); Red Cell Distribution Width 16.6 % (11.0-16.0); White Blood Count 11.8 X10*3/uL (4.8-10.8)
[2022-03-27 07:15] VITALS: BP 123/64; PULSE 114; RESP 16; TEMP 36.9; O2SAT 95
[2022-03-27 07:22] LABS: Anion Gap 14 (12-20); Blood Urea Nitrogen 101 mg/dL (9-16); Calcium 7.3 mg/dL (8.4-10.2); Carbon Dioxide 22 mmol/L (22-29); Chloride 108 mmol/L (96-108); Estimated Glomerular Filt Rate 9; Glucose Random 75 mg/dL (60-115); Potassium 4.5 mmol/L (3.3-5.1); Sodium 139 mmol/L (135-145)
[2022-03-27] MEDS: guaiFENesin LA 600 MG TAB.ER.12H PO ×2 (08:18→19:44)
[2022-03-27] MEDS: Ascorbic Acid 500 MG TABLET PO ×2 (08:18→19:45)
[2022-03-27] MEDS: guaiFENesin 100 MG/5 ML LIQUID PO (08:18)
[2022-03-27] MEDS: Docusate Sodium 100 MG CAPSULE PO (08:18)
[2022-03-27] MEDS: Sodium Zirconium Cyclosilicate 5 GM POWD.PACK PO (08:19)
[2022-03-27] MEDS: FLUoxetine HCl 20 MG CAPSULE 40 MG PO (08:19)
[2022-03-27] MEDS: 0.9 % Sodium Chloride Flush 3 ML SYRINGE IVFLUSH ×2 (08:20→19:44)
[2022-03-27] MEDS: Artificial Tears 15 ML DROPS 1 DROP EYE-BOTH ×3 (08:20→20:44)
--- NOTE | 2022-03-27 10:35 | PM.PNNEP ---
Subjective Subjective Date of Service: 03/27/22 Principal diagnosis: acute on chronic CHF, hematuria, mechanical Mitral valve Interval history: Events noted. All recent data reviewed Physical Exam Vital Signs: Vital Signs: Last Vital Signs Temp 98.5 F 03/27/22 07:15 Pulse 114 H 03/27/22 07:15 Resp 16 03/27/22 07:15 BP 123/64 03/27/22 07:15 Pulse Ox 95 03/27/22 07:15 BMI result Body Mass Index 20.2 Const: General: no acute distress Eyes: EOM: EOMs intact bilaterally Neck: Neck: Yes supple Resp: Auscultation: diminished lung sounds Cardio: Rate: regular rate GI: Palpation (GI): Soft to palpation Neuro: General: moves all extremities Objective Data Labs CBC & Chem 7: 03/27/22 06:26 03/27/22 06:26 Labs: Laboratory Results - last 24 hr 03/27/22 03/27/22 06:26 06:26 WBC 11.8 H RBC 2.91 L Hgb 8.9 L Hct 27.5 L MCV 94.5 MCH 30.6 MCHC 32.4 RDW 16.6 H Plt Count 149 L MPV 10.2 Absolute Nucleated RBC 0.000 Nucleated RBC % (auto) 0.0 Sodium 139 Potassium 4.5 Chloride 108 Carbon Dioxide 22 Anion Gap 14 BUN 101 H Creatinine 4.65 H* Estim Creat Clear Calc 11.0 Estimated GFR 9 Random Glucose 75 Calcium 7.3 L Procedures Date of Service Date of Service: 03/27/22 Assessment & Plan Assessment and plan (1) Acute kidney failure: Status: Acute Assessment and Plan: ALIZA due to compromise in renal perfusion Has advanced CKD at baseline Serum creatinine got worse but stable now GFR? should be even lower due to poor muscle mass No indication for renal replacement today Low K Diet; Lokelma daily C/W rest of current management Labs AM. Shall closely F/U Time Spent With Patient Time: Total time spent is greater than 50% in coordination of care (as documented) at patient's floor/unit and/or counseling patient: Progress Note: Quality Stroke Does the patient have a stroke diagnosis?: No
[2022-03-27 11:26] VITALS: BP 105/62; PULSE 104; RESP 14; TEMP 36.8; O2SAT 97
[2022-03-27] MEDS: Benzonatate 100 MG CAPSULE PO ×3 (11:33→19:44)
--- NOTE | 2022-03-27 12:10 | HO.PM.IMPN ---
Subjective Subjective Date of Service: 03/27/22 Interval History: cc: hematuria, difficulty breathing interval history: hematuria resolving while on CBI Denies any fever or pain Review of Systems No fever, chills but reports generalized weakness No chest pain, palpitation No shortness of breath or coughing No abdominal pain, nausea or vomiting No urinary symptoms No any rash or wounds Physical Exam Vital Signs: Vital Signs: Last Vital Signs Temp 98.2 F 03/27/22 11:26 Pulse 104 H 03/27/22 11:26 Resp 14 03/27/22 11:26 BP 105/62 03/27/22 11:26 Pulse Ox 97 03/27/22 11:26 BMI result Body Mass Index 20.2 Const: Other: General: AO X 3, no acute distress Resp: some rales at bases, 1+ leg edema CVS: S1,S2,RRR GI: +BS, no tenderness,, no distention Skin: No rash noticed Urology: hematuria resolving Neuro: motor grossly intact, alert and interactive Psych: appropriate affect Objective Data Active Medications Acetaminophen (Acetaminophen 325 Mg Tablet) 650 mg PO Q6H PRN PRN Reason: Pain, Mild (Pain Scale 1-3) Last Admin: 03/24/22 08:36 Dose: 650 mg Documented by: DENISE Albuterol/Ipratropium (Albuterol/Iprat 2.5/0.5mg 3 Ml Ampul.Neb) 3 ml INHALE RQ4H PRN PRN Reason: Shortness of Breath/Wheezing Last Admin: 03/26/22 14:02 Dose: 3 ml Documented by: WICHO Artificial Tears (Artificial Tears 15 Ml Drops) 1 drop EYE-BOTH TID [facility] Last Admin: 03/27/22 08:20 Dose: 1 drop Documented by: MARI Ascorbic Acid (Ascorbic Acid 500 Mg Tablet) 500 mg PO BID [facility] Last Admin: 03/27/22 08:18 Dose: 500 mg Documented by: MARI Atorvastatin Calcium (Atorvastatin Calcium 40 Mg Tablet) 40 mg PO BEDTIME [facility] Last Admin: 03/26/22 21:26 Dose: 40 mg Documented by: LAUREN Benzonatate (Benzonatate 100 Mg Capsule) 100 mg PO TID [facility] Last Admin: 03/27/22 11:33 Dose: 100 mg Documented by: MARI Calcium Carbonate (Calcium Carbonate 500 Mg Tablet) 750 mg PO DAILY [facility] Last Admin: 03/27/22 08:19 Dose: 750 mg Documented by: MARI Carvedilol (Carvedilol 12.5 Mg Tablet) 12.5 mg PO BIDWM [facility]; Protocol Last Admin: 03/18/22 08:57 Dose: 12.5 mg Documented by: RENETTA Docusate Sodium (Docusate Sodium 100 Mg Capsule) 100 mg PO DAILY PRN PRN Reason: Constipation Last Admin: 03/27/22 08:18 Dose: 100 mg Documented by: MARI Docusate Sodium (Docusate Sodium 100 Mg Capsule) 200 mg PO BEDTIME [facility] Last Admin: 03/26/22 21:26 Dose: 200 mg Documented by: LAUREN Fluoxetine HCl (Fluoxetine Hcl 20 Mg Capsule) 40 mg PO DAILY [facility] Last Admin: 03/27/22 08:19 Dose: 40 mg Documented by: MARI Furosemide (Furosemide 20 Mg Tablet) 20 mg PO BID@0900,1800 [facility]; Protocol Last Admin: 03/18/22 08:57 Dose: 20 mg Documented by: RENETTA Guaifenesin (Guaifenesin 100 Mg/5 Ml Liquid) 5 ml PO Q6H PRN PRN Reason: Cough Last Admin: 03/27/22 08:18 Dose: 5 ml Documented by: MARI Guaifenesin (Guaifenesin La 600 Mg Tab.Er.12h) 600 mg PO BID [facility] Last Admin: 03/27/22 08:18 Dose: 600 mg Documented by: MARI Isosorbide Dinitrate (Isosorbide Dinitrate 5 Mg Tablet) 5 mg PO BID [facility]; Protocol Last Admin: 03/18/22 08:57 Dose: 5 mg Documented by: RENETTA Levothyroxine Sodium 112 mcg/ (Levothyroxine Sodium 25 mcg) 137 mcg PO DAILY@0600 [facility] Last Admin: 03/27/22 05:56 Dose: 137 mcg Documented by: LAUREN Omeprazole (Omeprazole 20 Mg Capsule.) 20 mg PO DAILY@0630 [facility] Last Admin: 03/27/22 05:56 Dose: 20 mg Documented by: LAUREN Oxybutynin Chloride (Oxybutynin Chloride Er 5 Mg Tab.Er.24) 10 mg PO DAILY [facility] Last Admin: 03/27/22 08:18 Dose: 10 mg Documented by: MARI Pharmacy Consult (Consult Rx Perform Med Rec) 1 each MISCELLANE ONCE PRN PRN Reason: Consult order Sodium Chloride (0.9 % Sodium Chloride Flush 3 Ml Syringe) 3 ml IVFLUSH QSHIFT [facility] Last Admin: 03/27/22 08:20 Dose: 3 ml Documented by: MARI Sodium Zirconium Cyclosilicate (Sodium Zirconium Cyclosilicate 5 Gm Powd.Pack) 5 gm PO DAILY [facility] Last Admin: 03/27/22 08:19 Dose: 5 gm Documented by: MARI Trazodone HCl (Trazodone Hcl 50 Mg Tablet) 50 mg PO BEDTIME PRN PRN Reason: for insomnia Last Admin: 03/26/22 23:28 Dose: 50 mg Documented by: LAUREN Labs CBC & Chem 7: 03/27/22 06:26 03/27/22 06:26 Labs: Laboratory Results - last 24 hr 03/27/22 03/27/22 06:26 06:26 MCV 94.5 MCH 30.6 MCHC 32.4 RDW 16.6 H Plt Count 149 L MPV 10.2 Absolute Nucleated RBC 0.000 Nucleated RBC % (auto) 0.0 Anion Gap 14 Estim Creat Clear Calc 11.0 Estimated GFR 9 Random Glucose 75 Calcium 7.3 L Assessment and Plan (1) Hypotension: Status: Acute (2) Acute kidney failure: Status: Acute (3) Gross hematuria: Status: Acute (4) Acute on chronic heart failure with reduced ejection fraction and diastolic dysfunction: Status: Acute Plan 71 year old female with history of severe cardiomyopathy with EF 15-20% s/p AICD/PM, chronic atrial fibrillation, [place] mechanical mitral valve on [place], CKD, hypothyroidism, HLD, HTN, CAD, amyloidosis who presented to the ED with shortness of breath found to be in heart failure., now complicated by hematuria Acute blood loss anemia secondary to hematuria received total of 7 units stable Hb 8.3 s/p cysto, fulguration (see report) holding coumadin for now to start heparin drip and then if stable restart coumadin monitor PTT, PT INR monitor cbc History of mechanical mitral valve. holding AC for bleeding Acute on chronic HFrEF holding Coreg, Isodril for hypotension Elevated troponin no chest pain, EKG with no significant change from previous trops chronically elevated, likely part due to decreased clearance from CKD 4 carmen on CKD 4, likely ATN Creatinine mildly stable at 4.6 monitor, avoid hypotension nephro eval, monitor Hyperkalemia resolved daily lokelma, monitor thrombocytopenia chronic hypothyroidism? Continue home levothyroxine hypertension isodril, coreg on hold for hypotnesion hyperlipidemia? Continue statin mood continue fluoxetine DVT prophylaxis mechanical HCP, her daughter reason for continued hospitalization: resolving hematuria wide will need to restart anticoagulation under close monitoring to prevent rebleeding and possible decompensation. Quality Stroke Does the patient have a stroke diagnosis?: No VTE Prior VTE?: No VTE Risk Level:: Medical - moderate - high VTE Device Contraindication: N/A - Device Ordered VTE Drug Contraindication: N/A - Med Ordered
[2022-03-27 13:00] LABS: Hematocrit 28.5 % (37.0-47.0); Hemoglobin 9.3 g/dl (12.0-16.0); Mean Corpuscular HGB Conc 32.6 g/dl (31.0-35.0); Mean Corpuscular Hemoglobin 30.8 pg (27.0-33.0); Mean Corpuscular Volume 94.4 fL (80.0-98.0); Mean Platelet Volume 9.9 fL (9.4-12.3); NRBC Pct Auto 0.1 /100WBC (0.0-0.2); Platelet Count 140 X10*3/uL (160-400); Red Blood Count 3.02 X10*6/uL (4.20-5.50); Red Cell Distribution Width 16.5 % (11.0-16.0); White Blood Count 13.7 X10*3/uL (4.8-10.8)
[2022-03-27 13:36] LABS: INTERNATIONAL NORM RATIO 1.1 (0.9-1.1); Prothrombin Time 12.7 SEC (9.9-13.0)
[2022-03-27 13:38] LABS: PTT Heparin Drip 29.1 SEC (53-77.9)
[2022-03-27] MEDS: Heparin Sodium,Porcine/1/2NS 25,000 UNIT/250 ML IV.SOLN 8.69 UNIT IVCONT (13:49)
[2022-03-27 16:00] VITALS: BP 114/61; PULSE 114; RESP 17; TEMP 36.3; O2SAT 96
[2022-03-27] MEDS: Lactulose 20 GM/30 ML SOLUTION PO (16:29)
[2022-03-27] MEDS: Docusate Sodium 100 MG CAPSULE 200 MG PO (19:45)
[2022-03-27] MEDS: Atorvastatin Calcium 40 MG TABLET PO (19:45)
[2022-03-27 20:00] VITALS: BP 123/69; PULSE 114; RESP 18; TEMP 36.5; O2SAT 97
[2022-03-27 20:28] LABS: PTT Heparin Drip 41.8 SEC (53-77.9)
[2022-03-27] MEDS: Heparin Sodium,Porcine 5,000 UNIT/ML VIAL 2500 UNIT IVPUSH (20:44)
[2022-03-28] VITALS (7 sets, daily range): BP systolic 105–113; BP diastolic 55–67; PULSE 92–118; RESP 15–18; TEMP 36.1–36.6; O2SAT 91–99
[2022-03-28 03:00] LABS: PTT Heparin Drip 67.3 SEC (53-77.9)
[2022-03-28] MEDS: Levothyroxine Sodium 112 MCG, Levothyroxine Sodium 25 MCG 137 MCG PO (05:19)
[2022-03-28] MEDS: Omeprazole 20 MG CAPSULE.DR PO (05:19)
[2022-03-28 08:33] LABS: Hematocrit 27.4 % (37.0-47.0); Hemoglobin 8.9 g/dl (12.0-16.0); Mean Corpuscular HGB Conc 32.5 g/dl (31.0-35.0); Mean Corpuscular Hemoglobin 30.4 pg (27.0-33.0); Mean Corpuscular Volume 93.5 fL (80.0-98.0); Mean Platelet Volume 10.3 fL (9.4-12.3); Platelet Count 143 X10*3/uL (160-400); Red Blood Count 2.93 X10*6/uL (4.20-5.50); White Blood Count 12.2 X10*3/uL (4.8-10.8)
[2022-03-28 09:04] LABS: INTERNATIONAL NORM RATIO 1.2 (0.9-1.1); Prothrombin Time 13.6 SEC (9.9-13.0)
[2022-03-28 09:06] LABS: Anion Gap 15 (12-20); Blood Urea Nitrogen 97 mg/dL (9-16); Calcium 7.3 mg/dL (8.4-10.2); Carbon Dioxide 20 mmol/L (22-29); Chloride 110 mmol/L (96-108); Creatinine Clr Calc Pharmacy 11.3; Estimated Glomerular Filt Rate 10; Glucose Random 77 mg/dL (60-115); Potassium 4.2 mmol/L (3.3-5.1); Sodium 141 mmol/L (135-145)
[2022-03-28 09:07] LABS: PTT Heparin Drip 72.2 SEC (53-77.9)
[2022-03-28] MEDS: FLUoxetine HCl 20 MG CAPSULE 40 MG PO (10:24)
[2022-03-28] MEDS: guaiFENesin LA 600 MG TAB.ER.12H PO ×2 (10:25→20:39)
[2022-03-28] MEDS: Ascorbic Acid 500 MG TABLET PO ×2 (10:27→20:40)
[2022-03-28] MEDS: Benzonatate 100 MG CAPSULE PO ×3 (10:27→20:40)
[2022-03-28] MEDS: Artificial Tears 15 ML DROPS 1 DROP EYE-BOTH ×3 (10:27→20:39)
[2022-03-28] MEDS: Sodium Zirconium Cyclosilicate 5 GM POWD.PACK PO (10:29)
--- NOTE | 2022-03-28 11:43 | HO.PM.IMPN ---
Subjective Subjective Date of Service: 03/28/22 Interval History: cc: hematuria, difficulty breathing interval history: hematuria resolved on Heparin drip with no bleeding overnight stable H&H Denies any fever or pain Review of Systems No fever, chills but reports generalized weakness No chest pain, palpitation No shortness of breath or coughing No abdominal pain, nausea or vomiting No urinary symptoms No any rash or wounds Physical Exam Vital Signs: Vital Signs: Last Vital Signs Temp 97.9 F 03/28/22 11:32 Pulse 99 03/28/22 11:32 Resp 16 03/28/22 11:32 BP 113/55 L 03/28/22 11:32 Pulse Ox 99 03/28/22 11:32 BMI result Body Mass Index 20.2 Const: Other: General: AO X 3, no acute distress Resp: some rales at bases, 1+ leg edema CVS: S1,S2,RRR GI: +BS, no tenderness,, no distention Skin: No rash noticed Urology: hematuria resolved Neuro: motor grossly intact, alert and interactive Psych: appropriate affect Objective Data Active Medications Acetaminophen (Acetaminophen 325 Mg Tablet) 650 mg PO Q6H PRN PRN Reason: Pain, Mild (Pain Scale 1-3) Last Admin: 03/24/22 08:36 Dose: 650 mg Documented by: DENISE Albuterol/Ipratropium (Albuterol/Iprat 2.5/0.5mg 3 Ml Ampul.Neb) 3 ml INHALE RQ4H PRN PRN Reason: Shortness of Breath/Wheezing Last Admin: 03/26/22 14:02 Dose: 3 ml Documented by: WICHO Artificial Tears (Artificial Tears 15 Ml Drops) 1 drop EYE-BOTH TID [facility] Last Admin: 03/28/22 10:27 Dose: 1 drop Documented by: RENETTA Ascorbic Acid (Ascorbic Acid 500 Mg Tablet) 500 mg PO BID [facility] Last Admin: 03/28/22 10:27 Dose: 500 mg Documented by: RENETTA Atorvastatin Calcium (Atorvastatin Calcium 40 Mg Tablet) 40 mg PO BEDTIME [facility] Last Admin: 03/27/22 19:45 Dose: 40 mg Documented by: CASTILM Benzonatate (Benzonatate 100 Mg Capsule) 100 mg PO TID [facility] Last Admin: 03/28/22 10:27 Dose: 100 mg Documented by: RENETTA Calcium Carbonate (Calcium Carbonate 500 Mg Tablet) 750 mg PO DAILY [facility] Last Admin: 03/28/22 10:25 Dose: 750 mg Documented by: RENETTA Carvedilol (Carvedilol 12.5 Mg Tablet) 12.5 mg PO BIDWM [facility]; Protocol Last Admin: 03/18/22 08:57 Dose: 12.5 mg Documented by: RENETTA Docusate Sodium (Docusate Sodium 100 Mg Capsule) 100 mg PO DAILY PRN PRN Reason: Constipation Last Admin: 03/27/22 08:18 Dose: 100 mg Documented by: MARI Docusate Sodium (Docusate Sodium 100 Mg Capsule) 200 mg PO BEDTIME [facility] Last Admin: 03/27/22 19:45 Dose: 200 mg Documented by: KASIA Fluoxetine HCl (Fluoxetine Hcl 20 Mg Capsule) 40 mg PO DAILY [facility] Last Admin: 03/28/22 10:24 Dose: 40 mg Documented by: RENETTA Furosemide (Furosemide 40 Mg/4 Ml Vial) 40 mg IVPUSH DAILY [facility]; Protocol Guaifenesin (Guaifenesin 100 Mg/5 Ml Liquid) 5 ml PO Q6H PRN PRN Reason: Cough Last Admin: 03/27/22 08:18 Dose: 5 ml Documented by: MARI Guaifenesin (Guaifenesin La 600 Mg Tab.Er.12h) 600 mg PO BID [facility] Last Admin: 03/28/22 10:25 Dose: 600 mg Documented by: RENETTA Heparin Sodium (Porcine) (Heparin Sodium,Porcine 5,000 Unit/Ml Vial) 2,500 unit 40 unit/kg (2500 unit) IVPUSH PROTOCOL BOLUS PRN; Protocol PRN Reason: 40 unit/kg - Heparin Protocol Last Admin: 03/27/22 20:44 Dose: 2,500 unit Documented by: KASIA Heparin Sodium (Porcine) (Heparin Sodium,Porcine 5,000 Unit/Ml Vial) 5,000 unit 80 unit/kg (5000 unit) IVPUSH PROTOCOL BOLUS PRN; Protocol PRN Reason: 80 unit/kg - Heparin Protocol Heparin Sodium/Sodium Chloride () 25,000 unit in 250 mls @ 0 mls/hr IVCONT .Q0M [facility]; Protocol Last Titration: 03/28/22 10:33 Dose: 16 units/kg/hr, 9.94 mls/hr Documented by: RENETTA Cosigned by: ALLYSSA Isosorbide Dinitrate (Isosorbide Dinitrate 5 Mg Tablet) 5 mg PO BID [facility]; Protocol Last Admin: 03/18/22 08:57 Dose: 5 mg Documented by: RENETTA Levothyroxine Sodium 112 mcg/ (Levothyroxine Sodium 25 mcg) 137 mcg PO DAILY@0600 [facility] Last Admin: 03/28/22 05:19 Dose: 137 mcg Documented by: KASIA Omeprazole (Omeprazole 20 Mg Capsule.Dr) 20 mg PO DAILY@0630 [facility] Last Admin: 03/28/22 05:19 Dose: 20 mg Documented by: KASIA Oxybutynin Chloride (Oxybutynin Chloride Er 5 Mg Tab.Er.24) 10 mg PO DAILY [facility] Last Admin: 03/28/22 10:25 Dose: 10 mg Documented by: RENETTA Pharmacy Consult (Consult Rx Perform Med Rec) 1 each MISCELLANE ONCE PRN PRN Reason: Consult order Sodium Chloride (0.9 % Sodium Chloride Flush 3 Ml Syringe) 3 ml IVFLUSH QSHIFT [facility] Last Admin: 03/28/22 10:27 Dose: Not Given Documented by: RENETTA Non-Admin Reason: IV Running Sodium Zirconium Cyclosilicate (Sodium Zirconium Cyclosilicate 5 Gm Powd.Pack) 5 gm PO DAILY [facility] Last Admin: 03/28/22 10:29 Dose: 5 gm Documented by: RENETTA Trazodone HCl (Trazodone Hcl 50 Mg Tablet) 50 mg PO BEDTIME PRN PRN Reason: for insomnia Last Admin: 03/26/22 23:28 Dose: 50 mg Documented by: LAUREN Warfarin Sodium (Warfarin Sodium 7.5 Mg Tablet) 7.5 mg PO DAILY@1800 [facility] Labs CBC & Chem 7: 03/28/22 08:16 03/28/22 08:16 Labs: Laboratory Results - last 24 hr 03/27/22 03/27/22 03/27/22 12:44 12:45 20:12 MCV 94.4 MCH 30.8 MCHC 32.6 RDW 16.5 H Plt Count 140 L MPV 9.9 Absolute Nucleated RBC 0.020 H Nucleated RBC % (auto) 0.1 PT 12.7 INR 1.1 aPTT Heparin Protocol 29.1 L D 41.8 L D Anion Gap Estim Creat Clear Calc Estimated GFR Random Glucose Calcium 03/28/22 03/28/22 03/28/22 02:46 08:16 08:16 MCV 93.5 MCH 30.4 MCHC 32.5 RDW 17.0 H Plt Count 143 L MPV 10.3 Absolute Nucleated RBC 0.000 Nucleated RBC % (auto) 0.0 PT 13.6 H INR 1.2 H aPTT Heparin Protocol 67.3 D Anion Gap Estim Creat Clear Calc Estimated GFR Random Glucose Calcium 03/28/22 03/28/22 08:16 08:41 MCV MCH MCHC RDW Plt Count MPV Absolute Nucleated RBC Nucleated RBC % (auto) PT INR aPTT Heparin Protocol 72.2 Anion Gap 15 Estim Creat Clear Calc 11.3 Estimated GFR 10 Random Glucose 77 Calcium 7.3 L Assessment and Plan (1) CKD (chronic kidney disease) stage 4, GFR 15-29 ml/min: Status: Acute (2) Acute on chronic heart failure with reduced ejection fraction and diastolic dysfunction: Status: Acute (3) Hematuria: Status: Acute (4) Current use of anticoagulant therapy: Status: Acute Plan 71 year old female with history of severe cardiomyopathy with EF 15-20% s/p AICD/PM, chronic atrial fibrillation, [place] mechanical mitral valve on [place], CKD, hypothyroidism, HLD, HTN, CAD, amyloidosis who presented to the ED with shortness of breath found to be in heart failure., now complicated by hematuria Acute blood loss anemia secondary to hematuria received total of 7 units stable Hb 8.9 s/p cysto, fulguration (see report) continue heparin drip restart Warfarin today monitor PTT, PT INR monitor cbc, any bleeding History of mechanical mitral valve subtherapeutic INR continue heparin drip restart AC with goal 2.5-3.5 Acute on chronic HFrEF worsening Pleural effusion right holding Coreg, Isodril for hypotension start IV lasix monitor I\O Elevated troponin no chest pain, EKG with no significant change from previous trops chronically elevated, likely part due to decreased clearance from CKD 4 carmen on CKD 4, likely ATN Creatinine mildly stable at 4.5 monitor, avoid hypotension nephro eval, monitor Hyperkalemia resolved daily lokelma, monitor thrombocytopenia chronic hypothyroidism? Continue home levothyroxine hypertension isodril, coreg on hold for hypotnesion hyperlipidemia? Continue statin mood continue fluoxetine DVT prophylaxis Heparin HCP, her daughter reason for continued hospitalization: resolving hematuria will need to restart anticoagulation under close monitoring to prevent rebleeding and possible decompensation. Quality Stroke Does the patient have a stroke diagnosis?: No VTE Prior VTE?: No VTE Risk Level:: Medical - moderate - high VTE Device Contraindication: N/A - Device Ordered VTE Drug Contraindication: N/A - Med Ordered
[2022-03-28] MEDS: LORazepam 0.5 MG TABLET 0.25 MG PO (11:55)
[2022-03-28] MEDS: Acetaminophen 325 MG TABLET 650 MG PO ×2 (11:56→17:43)
[2022-03-28] MEDS: Furosemide 40 MG/4 ML VIAL IVPUSH (11:57)
--- NOTE | 2022-03-28 13:09 | MHC.CLN ---
NUTRITION APPEARS TO HAVE STAGE II WOUND TO COCCYX. DIET=2 GRAM SODIUM, LOW POTASSIUM. VISITED WITH PATIENT TODAY. DISLIKES ENSURE CLEAR AND DOES NOT WANT. ORDER FOR SUPPLEMENT DISCONTINUED. INTAKE VARIABLE WITH OVERALL AVERAGE INTAKE 50% AT MEALS. CONTINUE TO FOLLOW INTAKE AND SKIN INTEGRITY.
[2022-03-28] MEDS: Heparin Sodium,Porcine/1/2NS 25,000 UNIT/250 ML IV.SOLN 9.94 UNIT IVCONT (14:15)
--- NOTE | 2022-03-28 14:58 | MHC.CM.PN ---
IF PATIENT REMAINS WITHOUT BLEEDING, PLAN IS DC HOME THURSDAY
--- NOTE | 2022-03-28 15:14 | PM.PNNEP ---
Subjective Subjective Date of Service: 03/28/22 Principal diagnosis: acute on chronic CHF, hematuria, mechanical Mitral valve Interval history: Sleepy now Physical Exam Vital Signs: Vital Signs: Last Vital Signs Temp 97.9 F 03/28/22 11:32 Pulse 99 03/28/22 11:32 Resp 16 03/28/22 11:32 BP 113/55 L 03/28/22 11:32 Pulse Ox 99 03/28/22 11:32 BMI result Body Mass Index 20.2 General: , no acute distress Resp:? some rales at bases, 1+ leg edema CVS: S1,S2,RRR GI: +BS,? no tenderness,, no distention Skin: No rash noticed ?Urology: hematuria resolved Objective Data Labs CBC & Chem 7: 03/28/22 08:16 03/28/22 08:16 Labs: Laboratory Results - last 24 hr 03/27/22 03/28/22 03/28/22 20:12 02:46 08:16 WBC 12.2 H RBC 2.93 L Hgb 8.9 L Hct 27.4 L MCV 93.5 MCH 30.4 MCHC 32.5 RDW 17.0 H Plt Count 143 L MPV 10.3 Absolute Nucleated RBC 0.000 Nucleated RBC % (auto) 0.0 PT INR aPTT Heparin Protocol 41.8 L D 67.3 D Sodium Potassium Chloride Carbon Dioxide Anion Gap BUN Creatinine Estim Creat Clear Calc Estimated GFR Random Glucose Calcium 03/28/22 03/28/22 03/28/22 08:16 08:16 08:41 WBC RBC Hgb Hct MCV MCH MCHC RDW Plt Count MPV Absolute Nucleated RBC Nucleated RBC % (auto) PT 13.6 H INR 1.2 H aPTT Heparin Protocol 72.2 Sodium 141 Potassium 4.2 Chloride 110 H Carbon Dioxide 20 L Anion Gap 15 BUN 97 H Creatinine 4.52 H* Estim Creat Clear Calc 11.3 Estimated GFR 10 Random Glucose 77 Calcium 7.3 L Procedures Date of Service Date of Service: 03/28/22 Assessment & Plan Assessment and plan (1) CKD (chronic kidney disease) stage 4, GFR 15-29 ml/min: Status: Acute Assessment and Plan: ALIZA due to compromise in renal perfusion Has advanced CKD at baseline Serum creatinine got worse but stable now- Around 4.5 GFR? should be even lower due to poor muscle mass No indication for renal replacement today Low K Diet; Lokelma daily C/W rest of current management Labs AM. Shall closely F/U (2) Acute kidney failure: Status: Acute (3) Gross hematuria: Status: Acute Time Spent With Patient Time: Total time spent is greater than 50% in coordination of care (as documented) at patient's floor/unit and/or counseling patient: Progress Note: Quality Stroke Does the patient have a stroke diagnosis?: No
[2022-03-28] MEDS: 0.9 % Sodium Chloride Flush 3 ML SYRINGE IVFLUSH (15:33)
--- NOTE | 2022-03-28 15:44 | PC.NURSE ---
P [facility] [place] tech notified RN that patient had a 7 beats of Vtach I went to the room,patient was using commode,had BM,BP 110/58 pulse 118 ,afebrile temp 97.6,Sat 97% on RA,Dr. Adame notified E patient denies chest pain,assisted back to a recliner
[2022-03-28] MEDS: guaiFENesin 100 MG/5 ML LIQUID PO (15:49)
[2022-03-28] MEDS: Warfarin Sodium 7.5 MG TABLET PO (17:43)
[2022-03-28] MEDS: Atorvastatin Calcium 40 MG TABLET PO (20:40)
[2022-03-28] MEDS: Docusate Sodium 100 MG CAPSULE 200 MG PO (20:40)
[2022-03-29] VITALS (7 sets, daily range): BP systolic 93–106; BP diastolic 51–62; PULSE 78–115; RESP 16–22; TEMP 36.2–36.6; O2SAT 93–100
[2022-03-29] MEDS: Levothyroxine Sodium 112 MCG, Levothyroxine Sodium 25 MCG 137 MCG PO (05:42)
[2022-03-29] MEDS: Omeprazole 20 MG CAPSULE.DR PO (05:42)
[2022-03-29] MEDS: Ascorbic Acid 500 MG TABLET PO ×2 (08:49→20:47)
[2022-03-29] MEDS: FLUoxetine HCl 20 MG CAPSULE 40 MG PO (08:49)
[2022-03-29] MEDS: Midodrine HCl 5 MG TABLET PO ×3 (08:51→17:08)
[2022-03-29] MEDS: Furosemide 40 MG/4 ML VIAL IVPUSH ×2 (08:52→17:08)
[2022-03-29] MEDS: guaiFENesin LA 600 MG TAB.ER.12H PO ×2 (08:52→20:47)
[2022-03-29] MEDS: Benzonatate 100 MG CAPSULE PO ×3 (08:52→20:47)
[2022-03-29] MEDS: Sodium Zirconium Cyclosilicate 5 GM POWD.PACK PO (08:53)
[2022-03-29] MEDS: Artificial Tears 15 ML DROPS 1 DROP EYE-BOTH ×3 (08:53→20:46)
[2022-03-29 09:03] LABS: INTERNATIONAL NORM RATIO 1.4 (0.9-1.1); Prothrombin Time 15.8 SEC (9.9-13.0)
[2022-03-29 09:06] LABS: PTT Heparin Drip 99.3 SEC (53-77.9)
[2022-03-29 09:16] LABS: Anion Gap 15 (12-20); Blood Urea Nitrogen 97 mg/dL (9-16); Calcium 7.7 mg/dL (8.4-10.2); Carbon Dioxide 21 mmol/L (22-29); Chloride 108 mmol/L (96-108); Estimated Glomerular Filt Rate 9; Glucose Random 85 mg/dL (60-115); Sodium 140 mmol/L (135-145)
[2022-03-29 09:17] LABS: B Type Natriuretic Peptide 995 pg/mL (<100)
[2022-03-29] MEDS: Acetaminophen 325 MG TABLET 650 MG PO (10:28)
--- NOTE | 2022-03-29 11:19 | P.PNIM_ITS ---
Subjective Subjective Date of Service: 03/29/22 Interval History: cc: hematuria, difficulty breathing interval history: hematuria resolved on Heparin drip with no bleeding overnight stable H&H Denies any fever or pain Review of Systems No fever, chills but reports generalized weakness No chest pain, palpitation No shortness of breath or coughing No abdominal pain, nausea or vomiting No urinary symptoms No any rash or wounds Physical Exam Vital Signs: Vital Signs: Last Vital Signs Temp 97.7 F 03/29/22 08:00 Pulse 115 H 03/29/22 08:00 Resp 22 H 03/29/22 08:00 BP 98/62 03/29/22 08:00 Pulse Ox 96 03/29/22 08:00 BMI result Body Mass Index 20.2 Const: Other: General: AO X 3, no acute distress Resp: some rales at bases, 1+ leg edema CVS: S1,S2,RRR GI: +BS, no tenderness,, no distention Skin: No rash noticed Urology: hematuria resolved Neuro: motor grossly intact, alert and interactive Psych: appropriate affect Objective Data Active Medications Acetaminophen (Acetaminophen 325 Mg Tablet) 650 mg PO Q6H PRN PRN Reason: Pain, Mild (Pain Scale 1-3) Last Admin: 03/29/22 10:28 Dose: 650 mg Documented by: NATIVIDAD Albuterol/Ipratropium (Albuterol/Iprat 2.5/0.5mg 3 Ml Ampul.Neb) 3 ml INHALE RQ4H PRN PRN Reason: Shortness of Breath/Wheezing Last Admin: 03/26/22 14:02 Dose: 3 ml Documented by: WICHO Artificial Tears (Artificial Tears 15 Ml Drops) 1 drop EYE-BOTH TID [facility] Last Admin: 03/29/22 08:53 Dose: 1 drop Documented by: NATIVIDAD Ascorbic Acid (Ascorbic Acid 500 Mg Tablet) 500 mg PO BID [facility] Last Admin: 03/29/22 08:49 Dose: 500 mg Documented by: NATIVIDAD Atorvastatin Calcium (Atorvastatin Calcium 40 Mg Tablet) 40 mg PO BEDTIME [facility] Last Admin: 03/28/22 20:40 Dose: 40 mg Documented by: EDDIE Benzonatate (Benzonatate 100 Mg Capsule) 100 mg PO TID [facility] Last Admin: 03/29/22 08:52 Dose: 100 mg Documented by: NATIVIDAD Calcium Carbonate (Calcium Carbonate 500 Mg Tablet) 750 mg PO DAILY [facility] Last Admin: 03/29/22 08:51 Dose: 750 mg Documented by: NATIVIDAD Carvedilol (Carvedilol 12.5 Mg Tablet) 12.5 mg PO BIDWM [facility]; Protocol Last Admin: 03/18/22 08:57 Dose: 12.5 mg Documented by: RENETTA Docusate Sodium (Docusate Sodium 100 Mg Capsule) 100 mg PO DAILY PRN PRN Reason: Constipation Last Admin: 03/27/22 08:18 Dose: 100 mg Documented by: MARI Docusate Sodium (Docusate Sodium 100 Mg Capsule) 200 mg PO BEDTIME [facility] Last Admin: 03/28/22 20:40 Dose: 200 mg Documented by: EDDIE Fluoxetine HCl (Fluoxetine Hcl 20 Mg Capsule) 40 mg PO DAILY [facility] Last Admin: 03/29/22 08:49 Dose: 40 mg Documented by: NATIVIDAD Furosemide (Furosemide 40 Mg/4 Ml Vial) 40 mg IVPUSH DAILY [facility]; Protocol Last Admin: 03/29/22 08:52 Dose: 40 mg Documented by: NATIVIDAD Guaifenesin (Guaifenesin 100 Mg/5 Ml Liquid) 5 ml PO Q6H PRN PRN Reason: Cough Last Admin: 03/28/22 15:49 Dose: 5 ml Documented by: EDDIE Guaifenesin (Guaifenesin La 600 Mg Tab.Er.12h) 600 mg PO BID [facility] Last Admin: 03/29/22 08:52 Dose: 600 mg Documented by: NATIVIDAD Heparin Sodium (Porcine) (Heparin Sodium,Porcine 5,000 Unit/Ml Vial) 2,500 unit 40 unit/kg (2500 unit) IVPUSH PROTOCOL BOLUS PRN; Protocol PRN Reason: 40 unit/kg - Heparin Protocol Last Admin: 03/27/22 20:44 Dose: 2,500 unit Documented by: CASTMONICA Heparin Sodium (Porcine) (Heparin Sodium,Porcine 5,000 Unit/Ml Vial) 5,000 unit 80 unit/kg (5000 unit) IVPUSH PROTOCOL BOLUS PRN; Protocol PRN Reason: 80 unit/kg - Heparin Protocol Heparin Sodium/Sodium Chloride () 25,000 unit in 250 mls @ 0 mls/hr IVCONT .Q0M [facility]; Protocol Last Titration: 03/29/22 10:59 Dose: 13 units/kg/hr, 8.07 mls/hr Documented by: NATIVIDAD Cosigned by: NARINDER Levothyroxine Sodium 112 mcg/ (Levothyroxine Sodium 25 mcg) 137 mcg PO DAILY@0600 [facility] Last Admin: 03/29/22 05:42 Dose: 137 mcg Documented by: KASIA Midodrine (Midodrine Hcl 5 Mg Tablet) 5 mg PO TIDAC [facility] Last Admin: 03/29/22 08:51 Dose: 5 mg Documented by: NATIVIDAD Omeprazole (Omeprazole 20 Mg Capsule.Dr) 20 mg PO DAILY@0630 [facility] Last Admin: 03/29/22 05:42 Dose: 20 mg Documented by: KASIA Oxybutynin Chloride (Oxybutynin Chloride Er 5 Mg Tab.Er.24) 10 mg PO DAILY [facility] Last Admin: 03/29/22 08:50 Dose: 10 mg Documented by: NATIVIDAD Pharmacy Consult (Consult Rx Perform Med Rec) 1 each MISCELLANE ONCE PRN PRN Reason: Consult order Sodium Chloride (0.9 % Sodium Chloride Flush 3 Ml Syringe) 3 ml IVFLUSH QSHIFT [facility] Last Admin: 03/29/22 08:53 Dose: Not Given Documented by: NATIVIDAD Non-Admin Reason: IV Running Sodium Zirconium Cyclosilicate (Sodium Zirconium Cyclosilicate 5 Gm Powd.Pack) 5 gm PO DAILY [facility] Last Admin: 03/29/22 08:53 Dose: 5 gm Documented by: NATIVIDAD Trazodone HCl (Trazodone Hcl 50 Mg Tablet) 50 mg PO BEDTIME PRN PRN Reason: for insomnia Last Admin: 03/26/22 23:28 Dose: 50 mg Documented by: LAUREN Warfarin Sodium (Warfarin Sodium 7.5 Mg Tablet) 7.5 mg PO DAILY@1800 [facility] Last Admin: 03/28/22 17:43 Dose: 7.5 mg Documented by: EDDIE Labs CBC & Chem 7: 03/28/22 08:16 03/29/22 08:46 Labs: Laboratory Results - last 24 hr 03/29/22 03/29/22 03/29/22 08:46 08:46 08:46 PT 15.8 H INR 1.4 H aPTT Heparin Protocol Anion Gap 15 Estim Creat Clear Calc 11.0 Estimated GFR 9 Random Glucose 85 Calcium 7.7 L B-Natriuretic Peptide 995 H 03/29/22 08:46 PT INR aPTT Heparin Protocol 99.3 H D Anion Gap Estim Creat Clear Calc Estimated GFR Random Glucose Calcium B-Natriuretic Peptide Assessment and Plan (1) Hypotension: Status: Acute (2) Acute kidney failure: Status: Acute (3) Acute on chronic heart failure with reduced ejection fraction and diastolic dysfunction: Status: Acute (4) Current use of anticoagulant therapy: Status: Acute Plan 71 year old female with history of severe cardiomyopathy with EF 15-20% s/p A ICD/PM, chronic atrial fibrillation, [place] mechanical mitral valve on [place], CKD, hypothyroidism, HLD, HTN, CAD, amyloidosis who presented to the ED with shortness of breath found to be in heart failure., now complicated by hematuria Acute on chronic HFrEF worsening Pleural effusion right holding Coreg, Isodril for hypotension BNP improved to almost 1000 continue IV lasix monitor I\O Acute blood loss anemia secondary to hematuria received total of 7 units stable Hb 8.9 s/p cysto, fulguration (see report) continue heparin drip continue warfarin monitor PTT, PT INR monitor cbc, any bleeding History of mechanical mitral valve subtherapeutic INR of 1.4 continue heparin drip restart AC with goal 2.5-3.5 Elevated troponin no chest pain, EKG with no significant change from previous trops chronically elevated, likely part due to decreased clearance from CKD 4 carmen on CKD 4, likely ATN Creatinine mildly stable at 4.6 monitor, avoid hypotension nephro eval, monitor Hyperkalemia resolved daily lokelma, monitor thrombocytopenia chronic hypothyroidism? Continue home levothyroxine hypotension isodril, coreg on hold start midodrine hyperlipidemia? Continue statin mood continue fluoxetine DVT prophylaxis Heparin HCP, her daughter reason for continued hospitalization: resolving hematuria will to restart anticoagulation under close monitoring to prevent rebleeding and possible decompensation. Quality Stroke Does the patient have a stroke diagnosis?: No VTE Prior VTE?: No VTE Risk Level:: Medical - moderate - high VTE Device Contraindication: N/A - Device Ordered VTE Drug Contraindication: N/A - Med Ordered
[2022-03-29] MEDS: Heparin Sodium,Porcine/1/2NS 25,000 UNIT/250 ML IV.SOLN 8.07 UNIT IVCONT (14:29)
[2022-03-29 16:13] LABS: INTERNATIONAL NORM RATIO 1.6 (0.9-1.1); Prothrombin Time 18.9 SEC (9.9-13.0)
[2022-03-29 16:16] LABS: PTT Heparin Drip 65.2 SEC (53-77.9)
[2022-03-29] MEDS: Warfarin Sodium 7.5 MG TABLET PO (17:09)
[2022-03-29] MEDS: carvediloL 3.125 MG TABLET 6.25 MG PO (17:09)
[2022-03-29] MEDS: Docusate Sodium 100 MG CAPSULE 200 MG PO (20:47)
[2022-03-29] MEDS: Atorvastatin Calcium 40 MG TABLET PO (20:47)
[2022-03-29] MEDS: 0.9 % Sodium Chloride Flush 3 ML SYRINGE IVFLUSH (20:47)
[2022-03-29] MEDS: traZODone HCL 50 MG TABLET PO (22:18)
[2022-03-29] MEDS: guaiFENesin 100 MG/5 ML LIQUID PO (22:18)
[2022-03-29 23:01] LABS: PTT Heparin Drip 88.7 SEC (53-77.9)
[2022-03-30] VITALS (7 sets, daily range): BP systolic 86–102; BP diastolic 50–64; PULSE 74–105; RESP 16–20; TEMP 35.9–36.4; O2SAT 96–98
[2022-03-30 05:29] LABS: INTERNATIONAL NORM RATIO 2.5 (0.9-1.1); Prothrombin Time 28.9 SEC (9.9-13.0)
[2022-03-30 05:32] LABS: PTT Heparin Drip 76.8 SEC (53-77.9)
[2022-03-30 05:56] LABS: Anion Gap 16 (12-20); Blood Urea Nitrogen 100 mg/dL (9-16); Calcium 6.9 mg/dL (8.4-10.2); Carbon Dioxide 20 mmol/L (22-29); Chloride 109 mmol/L (96-108); Creatinine Clr Calc Pharmacy 10.6; Estimated Glomerular Filt Rate 9; Glucose Random 71 mg/dL (60-115); Potassium 4.2 mmol/L (3.3-5.1); Sodium 141 mmol/L (135-145)
[2022-03-30] MEDS: Levothyroxine Sodium 112 MCG, Levothyroxine Sodium 25 MCG 137 MCG PO (05:56)
[2022-03-30] MEDS: Omeprazole 20 MG CAPSULE.DR PO (05:56)
[2022-03-30] MEDS: Artificial Tears 15 ML DROPS 1 DROP EYE-BOTH ×3 (07:56→20:19)
[2022-03-30] MEDS: FLUoxetine HCl 20 MG CAPSULE 40 MG PO (07:57)
[2022-03-30] MEDS: Benzonatate 100 MG CAPSULE PO ×3 (07:57→20:01)
[2022-03-30] MEDS: Ascorbic Acid 500 MG TABLET PO ×2 (07:58→20:01)
[2022-03-30] MEDS: guaiFENesin LA 600 MG TAB.ER.12H PO ×2 (07:59→20:01)
[2022-03-30] MEDS: Midodrine HCl 10 MG TABLET PO ×3 (08:12→17:19)
[2022-03-30] MEDS: Sodium Zirconium Cyclosilicate 5 GM POWD.PACK PO (09:54)
[2022-03-30] MEDS: Furosemide 40 MG/4 ML VIAL IVPUSH ×2 (09:54→17:57)
--- NOTE | 2022-03-30 11:21 | P.PNIM_ITS ---
Subjective Subjective Date of Service: 03/30/22 Interval History: cc: coughing, difficulty breathing interval history: hematuria resolved heparin drip stopped no bleeding,stable H&H still complaining of cough and feeling short of breath Denies any fever or pain Review of Systems No fever, chills but reports generalized weakness No chest pain, palpitation Reporting coughing and feeling dyspneic No abdominal pain, nausea or vomiting No urinary symptoms No any rash or wounds Physical Exam Vital Signs: Vital Signs: Last Vital Signs Temp 97.4 F 03/30/22 09:07 Pulse 90 03/30/22 09:07 Resp 20 03/30/22 09:07 BP 102/64 03/30/22 09:07 Pulse Ox 96 03/30/22 09:07 BMI result Body Mass Index 20.2 Const: Other: General: AO X 3, no acute distress Resp: decreased air entry over lytes side, fine crackles at bases, trace leg edema CVS: S1,S2,RRR GI: +BS, no tenderness,, no distention Skin: No rash noticed Urology: hematuria resolved Neuro: motor grossly intact, alert and interactive Psych: appropriate affect Objective Data Active Medications Acetaminophen (Acetaminophen 325 Mg Tablet) 650 mg PO Q6H PRN PRN Reason: Pain, Mild (Pain Scale 1-3) Last Admin: 03/29/22 10:28 Dose: 650 mg Documented by: NATIVIDAD Albuterol/Ipratropium (Albuterol/Iprat 2.5/0.5mg 3 Ml Ampul.Neb) 3 ml INHALE RQ4H PRN PRN Reason: Shortness of Breath/Wheezing Last Admin: 03/26/22 14:02 Dose: 3 ml Documented by: WICHO Artificial Tears (Artificial Tears 15 Ml Drops) 1 drop EYE-BOTH TID [facility] Last Admin: 03/30/22 07:56 Dose: 1 drop Documented by: NATIVIDAD Ascorbic Acid (Ascorbic Acid 500 Mg Tablet) 500 mg PO BID [facility] Last Admin: 03/30/22 07:58 Dose: 500 mg Documented by: NATIVIDAD Atorvastatin Calcium (Atorvastatin Calcium 40 Mg Tablet) 40 mg PO BEDTIME [facility] Last Admin: 03/29/22 20:47 Dose: 40 mg Documented by: LAUREN Benzonatate (Benzonatate 100 Mg Capsule) 100 mg PO TID [facility] Last Admin: 03/30/22 07:57 Dose: 100 mg Documented by: NATIVIDAD Calcium Carbonate (Calcium Carbonate 500 Mg Tablet) 750 mg PO DAILY [facility] Last Admin: 03/30/22 07:59 Dose: 750 mg Documented by: NATIVIDAD Carvedilol (Carvedilol 3.125 Mg Tablet) 6.25 mg PO BIDWM [facility]; Protocol Last Admin: 03/29/22 17:09 Dose: 6.25 mg Documented by: NATIVIDAD Docusate Sodium (Docusate Sodium 100 Mg Capsule) 100 mg PO DAILY PRN PRN Reason: Constipation Last Admin: 03/27/22 08:18 Dose: 100 mg Documented by: MARI Docusate Sodium (Docusate Sodium 100 Mg Capsule) 200 mg PO BEDTIME [facility] Last Admin: 03/29/22 20:47 Dose: 200 mg Documented by: LAUREN Fluoxetine HCl (Fluoxetine Hcl 20 Mg Capsule) 40 mg PO DAILY [facility] Last Admin: 03/30/22 07:57 Dose: 40 mg Documented by: NATIVIDAD Furosemide (Furosemide 40 Mg/4 Ml Vial) 40 mg IVPUSH BID@0900,1800 [facility]; Protocol Last Admin: 03/30/22 09:54 Dose: 40 mg Documented by: NATIVIDAD Guaifenesin (Guaifenesin 100 Mg/5 Ml Liquid) 5 ml PO Q6H PRN PRN Reason: Cough Last Admin: 03/29/22 22:18 Dose: 5 ml Documented by: LAUREN Guaifenesin (Guaifenesin La 600 Mg Tab.Er.12h) 600 mg PO BID [facility] Last Admin: 03/30/22 07:59 Dose: 600 mg Documented by: NATIVIDAD Levothyroxine Sodium 112 mcg/ (Levothyroxine Sodium 25 mcg) 137 mcg PO DAILY@0600 [facility] Last Admin: 03/30/22 05:56 Dose: 137 mcg Documented by: LAUREN Midodrine (Midodrine Hcl 10 Mg Tablet) 10 mg PO TIDAC [facility] Last Admin: 03/30/22 08:12 Dose: 10 mg Documented by: NATIVIDAD Omeprazole (Omeprazole 20 Mg Capsule.) 20 mg PO DAILY@0630 [facility] Last Admin: 03/30/22 05:56 Dose: 20 mg Documented by: LAUREN Oxybutynin Chloride (Oxybutynin Chloride Er 5 Mg Tab.Er.24) 10 mg PO DAILY [facility] Last Admin: 03/30/22 07:58 Dose: 10 mg Documented by: NATIVIDAD Pharmacy Consult (Consult Rx Perform Med Rec) 1 each MISCELLANE ONCE PRN PRN Reason: Consult order Sodium Chloride (0.9 % Sodium Chloride Flush 3 Ml Syringe) 3 ml IVFLUSH QSHIFT [facility] Last Admin: 03/30/22 07:56 Dose: Not Given Documented by: NATIVIDAD Non-Admin Reason: IV Running Sodium Zirconium Cyclosilicate (Sodium Zirconium Cyclosilicate 5 Gm Powd.Pack) 5 gm PO DAILY [facility] Last Admin: 03/30/22 09:54 Dose: 5 gm Documented by: NATIVIDAD Trazodone HCl (Trazodone Hcl 50 Mg Tablet) 50 mg PO BEDTIME PRN PRN Reason: for insomnia Last Admin: 03/29/22 22:18 Dose: 50 mg Documented by: LAUREN Labs CBC & Chem 7: 03/28/22 08:16 03/30/22 05:16 Labs: Laboratory Results - last 24 hr 03/29/22 03/29/22 03/29/22 15:33 15:33 22:28 PT 18.9 H INR 1.6 H aPTT Heparin Protocol 65.2 D 88.7 H D Anion Gap Estim Creat Clear Calc Estimated GFR Random Glucose Calcium 03/30/22 03/30/22 03/30/22 05:16 05:16 05:16 PT Cancelled 28.9 H INR Cancelled 2.5 H aPTT Heparin Protocol 76.8 Anion Gap 16 Estim Creat Clear Calc 10.6 Estimated GFR 9 Random Glucose 71 Calcium 6.9 L D Assessment and Plan (1) Hypotension: Status: Acute (2) Acute kidney failure: Status: Acute (3) Acute on chronic heart failure with reduced ejection fraction and diastolic dysfunction: Status: Acute (4) Pleural effusion: Status: Acute Plan 71 year old female with history of severe cardiomyopathy with EF 15-20% s/p AICD /PM, chronic atrial fibrillation, [place] mechanical mitral valve on [place], CKD, hypothyroidism, HLD, HTN, CAD, amyloidosis who presented to the ED with shortness of breath found to be in heart failure., now complicated by hematuria Acute on chronic HFrEF worsening Pleural effusion right holding Isodril for hypotension started on low-dose Coreg as tolerated BNP improved to almost 1000 continue IV lasix To do thoracentesis for fluid removal of the right lung by tomorrow if INR allows monitor I\O Acute blood loss anemia secondary to hematuria received total of 7 units stable Hb 8.9 s/p cysto, fulguration (see report) monitor PTT, PT INR monitor cbc, any bleeding Urology input appreciated, [place] needs to stay in place for total of 2 weeks, to follow with Urology as outpatient History of mechanical mitral valve INR of 2.5 discontinue heparin drip INR goal 2.5-3.5 hold warfarin today and monitor INR for plan of thoracentesis by tomorrow Elevated troponin no chest pain, EKG with no significant change from previous trops chronically elevated, likely part due to decreased clearance from CKD 4 carmen on CKD 4, likely ATN Creatinine mildly stable at 4.6 monitor, avoid hypotension nephro eval, monitor Hyperkalemia resolved daily lokelma, monitor thrombocytopenia chronic hypothyroidism? Continue home levothyroxine hypotension isodril, coreg on hold increase midodrine hyperlipidemia? Continue statin mood continue fluoxetine DVT prophylaxis Heparin HCP, her daughter reason for continued hospitalization: large right-sided pleural effusion requiring thoracentesis and possible need to referred her INR to prevent possible decompensation into I acute hypoxic respiratory failure and possible pneumonia Quality Stroke Does the patient have a stroke diagnosis?: No VTE Prior VTE?: No VTE Risk Level:: Medical - moderate - high VTE Device Contraindication: N/A - Device Ordered VTE Drug Contraindication: N/A - Med Ordered
--- NOTE | 2022-03-30 11:31 | PC.NURSE ---
At 0830 BP low at 85/50, made aware and ordered increase midodrine (10mg), hold lasix and carvedilol and recheck BP in an hour. BP repeat was 102/64. MD made aware. Ok to give lasix, hold carvedilol until noon BP recheck.
[2022-03-30 12:20] LABS: PTT Heparin Drip 37.4 SEC (53-77.9)
[2022-03-30] MEDS: carvediloL 3.125 MG TABLET 6.25 MG PO ×2 (12:23→17:58)
[2022-03-30] MEDS: 0.9 % Sodium Chloride Flush 3 ML SYRINGE IVFLUSH ×2 (15:02→20:01)
[2022-03-30] MEDS: Acetaminophen 325 MG TABLET 650 MG PO (17:58)
[2022-03-30] MEDS: metOLazone 2.5 MG TABLET PO (17:58)
[2022-03-30] MEDS: Atorvastatin Calcium 40 MG TABLET PO (20:01)
[2022-03-30] MEDS: Docusate Sodium 100 MG CAPSULE 200 MG PO (20:01)
[2022-03-31] VITALS (9 sets, daily range): BP systolic 85–96; BP diastolic 50–60; PULSE 70–88; RESP 16–18; TEMP 36.1–36.3; O2SAT 93–100
[2022-03-31] MEDS: Levothyroxine Sodium 112 MCG, Levothyroxine Sodium 25 MCG 137 MCG PO (05:19)
[2022-03-31] MEDS: Omeprazole 20 MG CAPSULE.DR PO (05:20)
[2022-03-31 06:19] LABS: Hematocrit 25.1 % (37.0-47.0); Hemoglobin 8.1 g/dl (12.0-16.0); Mean Corpuscular HGB Conc 32.3 g/dl (31.0-35.0); Mean Corpuscular Volume 96.2 fL (80.0-98.0); Mean Platelet Volume 10.4 fL (9.4-12.3); Platelet Count 126 X10*3/uL (160-400); Red Blood Count 2.61 X10*6/uL (4.20-5.50); Red Cell Distribution Width 17.6 % (11.0-16.0); White Blood Count 11.2 X10*3/uL (4.8-10.8)
[2022-03-31 07:13] LABS: Prothrombin Time 61.2 SEC (9.9-13.0)
[2022-03-31 07:16] LABS: INTERNATIONAL NORM RATIO 5.2 (0.9-1.1)
[2022-03-31] MEDS: Benzonatate 100 MG CAPSULE PO ×3 (08:29→20:22)
[2022-03-31] MEDS: guaiFENesin LA 600 MG TAB.ER.12H PO ×2 (08:29→20:17)
[2022-03-31] MEDS: Midodrine HCl 10 MG TABLET PO ×3 (08:29→15:38)
[2022-03-31] MEDS: FLUoxetine HCl 20 MG CAPSULE 40 MG PO (08:29)
[2022-03-31] MEDS: Ascorbic Acid 500 MG TABLET PO ×2 (08:30→20:16)
[2022-03-31] MEDS: 0.9 % Sodium Chloride Flush 3 ML SYRINGE IVFLUSH ×3 (08:35→20:17)
[2022-03-31] MEDS: Artificial Tears 15 ML DROPS 1 DROP EYE-BOTH ×3 (08:35→20:19)
[2022-03-31] MEDS: guaiFENesin 100 MG/5 ML LIQUID PO ×2 (10:10→19:34)
[2022-03-31] MEDS: Sodium Zirconium Cyclosilicate 5 GM POWD.PACK PO (10:26)
[2022-03-31] MEDS: carvediloL 3.125 MG TABLET 6.25 MG PO (10:26)
[2022-03-31] MEDS: Furosemide 40 MG/4 ML VIAL IVPUSH (10:26)
--- NOTE | 2022-03-31 10:59 | HO.PM.IMPN ---
Subjective Subjective Date of Service: 03/31/22 Interval History: cc: coughing, difficulty breathing interval history: hematuria resolved still reporting coughing and dyspnea with exertion no bleeding,stable H&H still complaining of cough and feeling short of breath Denies any fever or pain Review of Systems No fever, chills but reports generalized weakness No chest pain, palpitation Reporting coughing and feeling dyspneic on occasions mainly nighttime No abdominal pain, nausea or vomiting No urinary symptoms No any rash or wounds Physical Exam Vital Signs: Vital Signs: Last Vital Signs Temp 97.2 F 03/31/22 07:54 Pulse 75 03/31/22 08:49 Resp 17 03/31/22 07:54 BP 96/60 03/31/22 10:18 Pulse Ox 93 03/31/22 08:49 BMI result Body Mass Index 20.2 Const: Other: General: AO X 3, no acute distress Resp: decreased air entry over lytes side, fine crackles at bases, trace leg edema CVS: S1,S2,RRR GI: +BS, no tenderness,, no distention Skin: No rash noticed Urology: hematuria resolved Neuro: motor grossly intact, alert and interactive Psych: appropriate affect Objective Data Active Medications Acetaminophen (Acetaminophen 325 Mg Tablet) 650 mg PO Q6H PRN PRN Reason: Pain, Mild (Pain Scale 1-3) Last Admin: 03/30/22 17:58 Dose: 650 mg Documented by: NATIVIDAD Albuterol/Ipratropium (Albuterol/Iprat 2.5/0.5mg 3 Ml Ampul.Neb) 3 ml INHALE RQ4H PRN PRN Reason: Shortness of Breath/Wheezing Last Admin: 03/26/22 14:02 Dose: 3 ml Documented by: WICHO Artificial Tears (Artificial Tears 15 Ml Drops) 1 drop EYE-BOTH TID [facility] Last Admin: 03/31/22 08:35 Dose: 1 drop Documented by: NATIVIDAD Ascorbic Acid (Ascorbic Acid 500 Mg Tablet) 500 mg PO BID [facility] Last Admin: 03/31/22 08:30 Dose: 500 mg Documented by: NATIVIDAD Atorvastatin Calcium (Atorvastatin Calcium 40 Mg Tablet) 40 mg PO BEDTIME [facility] Last Admin: 03/30/22 20:01 Dose: 40 mg Documented by: STEFANIE Benzonatate (Benzonatate 100 Mg Capsule) 100 mg PO TID [facility] Last Admin: 03/31/22 08:29 Dose: 100 mg Documented by: NATIVIDAD Calcium Carbonate (Calcium Carbonate 500 Mg Tablet) 750 mg PO DAILY [facility] Last Admin: 03/31/22 08:30 Dose: 750 mg Documented by: NATIVIDAD Carvedilol (Carvedilol 3.125 Mg Tablet) 6.25 mg PO BIDWM [facility]; Protocol Last Admin: 03/31/22 10:26 Dose: 6.25 mg Documented by: NATIVIDAD Docusate Sodium (Docusate Sodium 100 Mg Capsule) 100 mg PO DAILY PRN PRN Reason: Constipation Last Admin: 03/27/22 08:18 Dose: 100 mg Documented by: MARI Docusate Sodium (Docusate Sodium 100 Mg Capsule) 200 mg PO BEDTIME [facility] Last Admin: 03/30/22 20:01 Dose: 200 mg Documented by: STEFANIE Fluoxetine HCl (Fluoxetine Hcl 20 Mg Capsule) 40 mg PO DAILY [facility] Last Admin: 03/31/22 08:29 Dose: 40 mg Documented by: NATIVIDAD Furosemide (Furosemide 40 Mg/4 Ml Vial) 40 mg IVPUSH BID@0900,1800 [facility]; Protocol Last Admin: 03/31/22 10:26 Dose: 40 mg Documented by: NATIVIDAD Guaifenesin (Guaifenesin 100 Mg/5 Ml Liquid) 5 ml PO Q6H PRN PRN Reason: Cough Last Admin: 03/31/22 10:10 Dose: 5 ml Documented by: NATIVIDAD Guaifenesin (Guaifenesin La 600 Mg Tab.Er.12h) 600 mg PO BID [facility] Last Admin: 03/31/22 08:29 Dose: 600 mg Documented by: NATIVIDAD Levothyroxine Sodium 112 mcg/ (Levothyroxine Sodium 25 mcg) 137 mcg PO DAILY@0600 [facility] Last Admin: 03/31/22 05:19 Dose: 137 mcg Documented by: STEFANIE Midodrine (Midodrine Hcl 10 Mg Tablet) 10 mg PO TIDAC [facility] Last Admin: 03/31/22 08:29 Dose: 10 mg Documented by: NATIVIDAD Omeprazole (Omeprazole 20 Mg Capsule.) 20 mg PO DAILY@0630 [facility] Last Admin: 03/31/22 05:20 Dose: 20 mg Documented by: STEFANIE Oxybutynin Chloride (Oxybutynin Chloride Er 5 Mg Tab.Er.24) 10 mg PO DAILY [facility] Last Admin: 03/31/22 08:30 Dose: 10 mg Documented by: NATIVIDAD Pharmacy Consult (Consult Rx Perform Med Rec) 1 each MISCELLANE ONCE PRN PRN Reason: Consult order Sodium Chloride (0.9 % Sodium Chloride Flush 3 Ml Syringe) 3 ml IVFLUSH QSHIFT [facility] Last Admin: 03/31/22 08:35 Dose: 3 ml Documented by: NATIVIDAD Sodium Zirconium Cyclosilicate (Sodium Zirconium Cyclosilicate 5 Gm Powd.Pack) 5 gm PO DAILY [facility] Last Admin: 03/31/22 10:26 Dose: 5 gm Documented by: NATIVIDAD Trazodone HCl (Trazodone Hcl 50 Mg Tablet) 50 mg PO BEDTIME PRN PRN Reason: for insomnia Last Admin: 03/29/22 22:18 Dose: 50 mg Documented by: LAUREN Labs CBC & Chem 7: 03/31/22 05:55 03/30/22 05:16 Labs: Laboratory Results - last 24 hr 03/30/22 03/31/22 03/31/22 11:44 05:55 05:55 MCV 96.2 MCH 31.0 MCHC 32.3 RDW 17.6 H Plt Count 126 L MPV 10.4 Absolute Nucleated RBC 0.000 Nucleated RBC % (auto) 0.0 PT 61.2 H INR 5.2 H* D aPTT Heparin Protocol 37.4 L D Assessment and Plan (1) Pleural effusion: Status: Acute (2) Hypotension: Status: Acute (3) CKD (chronic kidney disease) stage 4, GFR 15-29 ml/min: Status: Acute (4) Current use of anticoagulant therapy: Status: Acute Plan 71 year old female with history of severe cardiomyopathy with EF 15-20% s/p AICD/PM, chronic atrial fibrillation, [place] mechanical mitral valve on [place], CKD, hypothyroidism, HLD, HTN, CAD, amyloidosis who presented to the ED with shortness of breath found to be in heart failure., now complicated by hematuria Acute on chronic HFrEF large Pleural effusion right holding Isodril for hypotension continue low-dose Coreg as tolerated BNP improved to almost 900 continue IV lasix To do thoracentesis for fluid removal of the right lung by tomorrow if INR allows monitor I\O carmen on CKD 4, likely ATN Creatinine mildly worse at 4.8 monitor, avoid hypotension nephro deemed to follow History of mechanical mitral valve Supratherapeutic INR INR of 5.1 discontinue heparin drip INR goal 2.5-3.5 hold warfarin today and monitor INR for plan of thoracentesis by Thursday Acute blood loss anemia secondary to hematuria received total of 7 units stable Hb 8.9 s/p cysto, fulguration (see report) monitor PTT, PT INR monitor cbc, any bleeding Urology input appreciated, Ramenta needs to stay in place for total of 2 weeks, to follow with Urology as outpatient Elevated troponin no chest pain, EKG with no significant change from previous trops chronically elevated, likely part due to decreased clearance from CKD 4 physical deconditioning PT recommended STR vs home with VNA and 24 hour supervision Hyperkalemia resolved daily lokelma, monitor thrombocytopenia chronic hypothyroidism? Continue home levothyroxine hypotension isodril, coreg on hold increase midodrine hyperlipidemia? Continue statin mood continue fluoxetine DVT prophylaxis Heparin HCP, her daughter reason for continued hospitalization: large right-sided pleural effusion requiring thoracentesis Pending INR to go down to prevent possible decompensation into I acute hypoxic respiratory failure and possible pneumonia Quality Stroke Does the patient have a stroke diagnosis?: No VTE Prior VTE?: No VTE Risk Level:: Medical - moderate - high VTE Device Contraindication: N/A - Device Ordered VTE Drug Contraindication: N/A - Med Ordered
--- NOTE | 2022-03-31 12:27 | MHC.CLN ---
NUTRITION PATIENT WITH STAGE II WOUND TO COCCYX. DIET=2 GRAM SODIUM, LOW POTASSIUM. DISLIKES SUPPLEMENTS AND DOES NOT WANT. VARIABLE INTAKE X 4 DAYS, LESS THAN 25% TO 100%, WITH MOST MEALS 50% OR LESS. CONTINUE TO FOLLOW INTAKE AND SKIN INTEGRITY.
[2022-03-31] MEDS: LORazepam 0.5 MG TABLET 0.25 MG PO (12:41)
--- NOTE | 2022-03-31 14:49 | PM.PNNEP ---
Subjective Subjective Date of Service: 03/31/22 Principal diagnosis: acute on chronic CHF, hematuria, mechanical Mitral valve Interval history: cc: coughing, difficulty breathing interval history: hematuria resolved still reporting coughing and dyspnea with exertion Chart Reviewed. Events noted. Physical Exam Vital Signs: Vital Signs: Last Vital Signs Temp 97.4 F 03/31/22 11:41 Pulse 74 03/31/22 11:41 Resp 16 03/31/22 11:41 BP 88/55 L 03/31/22 11:41 Pulse Ox 98 03/31/22 11:41 BMI result Body Mass Index 20.2 Const: General: no acute distress Orientation/consciousness: patient oriented x3 HEENT: Head: Yes normocephalic and Yes atraumatic Neck: Neck: Yes no JVD Resp: Auscultation: clear to auscultation bilaterally Cardio: Jugular venous distension: no JVD Rate: regular rate Rhythm: regular rhythm Heart sounds: S1 normal heart sound present and S2 normal heart sound present GI: Auscultation: normal bowel sounds Neuro: General: patient oriented x3 Extrem: General: Yes no clubbing, cyanosis or edema Objective Data Labs CBC & Chem 7: 03/31/22 05:55 03/30/22 05:16 Labs: Laboratory Results - last 24 hr 03/31/22 03/31/22 05:55 05:55 WBC 11.2 H RBC 2.61 L Hgb 8.1 L Hct 25.1 L MCV 96.2 MCH 31.0 MCHC 32.3 RDW 17.6 H Plt Count 126 L MPV 10.4 Absolute Nucleated RBC 0.000 Nucleated RBC % (auto) 0.0 PT 61.2 H INR 5.2 H* D Procedures Date of Service Date of Service: 03/31/22 Assessment & Plan Assessment and plan (1) CKD (chronic kidney disease) stage 4, GFR 15-29 ml/min: Status: Acute Assessment and Plan: ALIZA due to compromise in renal perfusion Has advanced CKD at baseline Serum creatinine got worse but stable now- Around 4.5 GFR? should be even lower due to poor muscle mass No indication for renal replacement today however need for HD is imminent. I spoke with the patient and she is agreeable to HD. I will coordinate access, and outpatient HD placement. Low K Diet; Lokelma daily C/W rest of current management Labs AM. Shall closely F/U (2) Acute kidney failure: Status: Acute (3) Hypotension: Status: Acute (4) Pleural effusion: Status: Acute Plan ALIZA due to compromise in renal perfusion Has advanced CKD at baseline Serum creatinine got worse but stable now- Around 4.5 GFR? should be even lower due to poor muscle mass No indication for renal replacement today Low K Diet; Lokelma daily C/W rest of current management Labs AM. Shall closely F/U Time Spent With Patient Time: Total time spent is greater than 50% in coordination of care (as documented) at patient's floor/unit and/or counseling patient: Progress Note: Quality Stroke Does the patient have a stroke diagnosis?: No
--- NOTE | 2022-03-31 15:08 | MHC.CM.PN ---
EMR REVIEWED, PT NOW LARGE R PLEURAL EFFUSION, REMAINS ON IV LASIX, INR GREATER THAN 5 ONCE STABLE PLAN FOR THORACENTESIS, NO D/C PLANNERD FOR THIS TIME, ONCE SLEARED PLAN REMAINS FOR PT TO RETURN TO ADULT [facility].
[2022-03-31] MEDS: Docusate Sodium 100 MG CAPSULE 200 MG PO (20:16)
[2022-03-31] MEDS: Atorvastatin Calcium 40 MG TABLET PO (20:16)
[2022-04-01 03:57] VITALS: BP 92/47; PULSE 84; RESP 18; TEMP 36.1; O2SAT 96
[2022-04-01] MEDS: Levothyroxine Sodium 112 MCG, Levothyroxine Sodium 25 MCG 137 MCG PO (05:30)
[2022-04-01] MEDS: Omeprazole 20 MG CAPSULE.DR PO (05:30)
[2022-04-01 06:17] LABS: Prothrombin Time 85.5 SEC (9.9-13.0)
[2022-04-01 06:27] LABS: Anion Gap 16 (12-20); Blood Urea Nitrogen 104 mg/dL (9-16); Calcium 6.9 mg/dL (8.4-10.2); Carbon Dioxide 21 mmol/L (22-29); Chloride 107 mmol/L (96-108); Creatinine Clr Calc Pharmacy 9.5; Estimated Glomerular Filt Rate 8; Glucose Random 79 mg/dL (60-115); Potassium 4.2 mmol/L (3.3-5.1); Sodium 140 mmol/L (135-145)
[2022-04-01 06:48] LABS: INTERNATIONAL NORM RATIO 7.2 (0.9-1.1)
[2022-04-01 08:00] VITALS: BP 86/53; PULSE 79; RESP 17; TEMP 36.2; O2SAT 98
[2022-04-01] MEDS: FLUoxetine HCl 20 MG CAPSULE 40 MG PO (08:03)
[2022-04-01] MEDS: Midodrine HCl 10 MG TABLET PO ×3 (08:03→15:31)
[2022-04-01] MEDS: Ascorbic Acid 500 MG TABLET PO ×2 (08:04→21:36)
[2022-04-01] MEDS: Benzonatate 100 MG CAPSULE PO ×3 (08:04→21:36)
[2022-04-01] MEDS: Sodium Zirconium Cyclosilicate 5 GM POWD.PACK PO (08:04)
[2022-04-01] MEDS: 0.9 % Sodium Chloride Flush 3 ML SYRINGE IVFLUSH ×3 (08:04→23:29)
[2022-04-01] MEDS: guaiFENesin LA 600 MG TAB.ER.12H PO ×2 (08:04→21:39)
[2022-04-01] MEDS: Artificial Tears 15 ML DROPS 1 DROP EYE-BOTH ×3 (08:04→21:45)
[2022-04-01] MEDS: Phytonadione (Vit K1) Oral 10 MG/ML AMPUL 2.5 MG PO (10:48)
[2022-04-01 11:51] VITALS: BP 133/79; PULSE 60; RESP 18; TEMP 36.1; O2SAT 99
--- NOTE | 2022-04-01 14:22 | P.PNIM_ITS ---
Subjective Subjective Date of Service: 04/01/22 Interval History: cc: coughing, difficulty breathing interval history: Creatinine worse today INR increased to 7.5 still reporting coughing and dyspnea with exertion no bleeding,stable H&H Denies any fever or pain Review of Systems No fever, chills but reports generalized weakness No chest pain, palpitation Reporting coughing and feeling dyspneic on occasions mainly nighttime No abdominal pain, nausea or vomiting No urinary symptoms No any rash or wounds Physical Exam Vital Signs: Vital Signs: Last Vital Signs Temp 97.0 F 04/01/22 11:51 Pulse 60 04/01/22 11:51 Resp 18 04/01/22 11:51 BP 133/79 04/01/22 11:51 Pulse Ox 99 04/01/22 11:51 BMI result Body Mass Index 20.2 Const: Other: General: AO X 3, no acute distress Resp: decreased air entry over lytes side, fine crackles at bases, trace leg edema CVS: S1,S2,RRR GI: +BS, no tenderness,, no distention Skin: No rash noticed Urology: hematuria resolved Neuro: motor grossly intact, alert and interactive Psych: appropriate affect Objective Data Active Medications Acetaminophen (Acetaminophen 325 Mg Tablet) 650 mg PO Q6H PRN PRN Reason: Pain, Mild (Pain Scale 1-3) Last Admin: 03/30/22 17:58 Dose: 650 mg Documented by: NATIVIDAD Albuterol/Ipratropium (Albuterol/Iprat 2.5/0.5mg 3 Ml Ampul.Neb) 3 ml INHALE RQ4H PRN PRN Reason: Shortness of Breath/Wheezing Last Admin: 03/26/22 14:02 Dose: 3 ml Documented by: WICHO Artificial Tears (Artificial Tears 15 Ml Drops) 1 drop EYE-BOTH TID [facility] Last Admin: 04/01/22 08:04 Dose: 1 drop Documented by: KIMBERLY Ascorbic Acid (Ascorbic Acid 500 Mg Tablet) 500 mg PO BID [facility] Last Admin: 04/01/22 08:04 Dose: 500 mg Documented by: KIMBERLY Atorvastatin Calcium (Atorvastatin Calcium 40 Mg Tablet) 40 mg PO BEDTIME [facility] Last Admin: 03/31/22 20:16 Dose: 40 mg Documented by: STEFANIE Benzonatate (Benzonatate 100 Mg Capsule) 100 mg PO TID [facility] Last Admin: 04/01/22 08:04 Dose: 100 mg Documented by: KIMBERLY Calcium Carbonate (Calcium Carbonate 500 Mg Tablet) 750 mg PO DAILY [facility] Last Admin: 04/01/22 08:04 Dose: 750 mg Documented by: KIMBERLY Docusate Sodium (Docusate Sodium 100 Mg Capsule) 100 mg PO DAILY PRN PRN Reason: Constipation Last Admin: 03/27/22 08:18 Dose: 100 mg Documented by: MARI Docusate Sodium (Docusate Sodium 100 Mg Capsule) 200 mg PO BEDTIME [facility] Last Admin: 03/31/22 20:16 Dose: 200 mg Documented by: STEFANIE Fluoxetine HCl (Fluoxetine Hcl 20 Mg Capsule) 40 mg PO DAILY [facility] Last Admin: 04/01/22 08:03 Dose: 40 mg Documented by: KIMBERLY Furosemide (Furosemide 40 Mg/4 Ml Vial) 40 mg IVPUSH BID@0900,1800 [facility]; Protocol Last Admin: 03/31/22 17:25 Dose: Not Given Documented by: NATIVIDAD Non-Admin Reason: Decreased Blood Pressure Guaifenesin (Guaifenesin 100 Mg/5 Ml Liquid) 5 ml PO Q6H PRN PRN Reason: Cough Last Admin: 03/31/22 19:34 Dose: 5 ml Documented by: STEFANIE Guaifenesin (Guaifenesin La 600 Mg Tab.Er.12h) 600 mg PO BID [facility] Last Admin: 04/01/22 08:04 Dose: 600 mg Documented by: KIMBERLY Levothyroxine Sodium 112 mcg/ (Levothyroxine Sodium 25 mcg) 137 mcg PO DAILY@0600 [facility] Last Admin: 04/01/22 05:30 Dose: 137 mcg Documented by: STEFANIE Midodrine (Midodrine Hcl 10 Mg Tablet) 10 mg PO TIDAC [facility] Last Admin: 04/01/22 10:48 Dose: 10 mg Documented by: KIMBERLY Omeprazole (Omeprazole 20 Mg Capsule.) 20 mg PO DAILY@0630 [facility] Last Admin: 04/01/22 05:30 Dose: 20 mg Documented by: STEFANIE Oxybutynin Chloride (Oxybutynin Chloride Er 5 Mg Tab.Er.24) 10 mg PO DAILY [facility] Last Admin: 04/01/22 08:03 Dose: 10 mg Documented by: KIMBERLY Pharmacy Consult (Consult Rx Perform Med Rec) 1 each MISCELLANE ONCE PRN PRN Reason: Consult order Sodium Chloride (0.9 % Sodium Chloride Flush 3 Ml Syringe) 3 ml IVFLUSH QSHIFT [facility] Last Admin: 04/01/22 08:04 Dose: 3 ml Documented by: KIMBERLY Sodium Zirconium Cyclosilicate (Sodium Zirconium Cyclosilicate 5 Gm Powd.Pack) 5 gm PO DAILY [facility] Last Admin: 04/01/22 08:04 Dose: 5 gm Documented by: KIMBERLY Trazodone HCl (Trazodone Hcl 50 Mg Tablet) 50 mg PO BEDTIME PRN PRN Reason: for insomnia Last Admin: 03/29/22 22:18 Dose: 50 mg Documented by: LAUREN Labs CBC & Chem 7: 03/31/22 05:55 04/01/22 05:18 Labs: Laboratory Results - last 24 hr 04/01/22 04/01/22 05:18 05:18 PT 85.5 H INR 7.2 H* D Anion Gap 16 Estim Creat Clear Calc 9.5 Estimated GFR 8 Random Glucose 79 Calcium 6.9 L Assessment and Plan (1) Pleural effusion: Status: Acute (2) Hypotension: Status: Acute (3) Acute on chronic heart failure with reduced ejection fraction and diastolic dysfunction: Status: Acute (4) CKD (chronic kidney disease) stage 4, GFR 15-29 ml/min: Status: Acute Plan 71 year old female with history of severe cardiomyopathy with EF 15-20% s/p AICD/PM, chronic atrial fibrillation, [place] mechanical mitral valve on [place], CKD, hypothyroidism, HLD, HTN, CAD, amyloidosis who presented to the ED with shortness of breath found to be in heart failure., now complicated by rayshawn turia Acute on chronic HFrEF large Pleural effusion right holding Isodril for hypotension continue low-dose Coreg as tolerated BNP improved to almost 900 hold IV lasix for worsening kidney function To do thoracentesis for fluid removal of the right lung by tomorrow if INR allows monitor I\O carmen on CKD 4, likely ATN Creatinine mildly worse at 5.3 monitor, avoid hypotension nephro S to place PermCath with plan to start dialysis either inpatient or outpatient History of mechanical mitral valve Supratherapeutic INR INR of 7.5 INR goal 2.5-3.5 to give 2.5 mg of vitamin K and monitor hold warfarin today and monitor INR for plan of thoracentesis by Thursday Acute blood loss anemia secondary to hematuria received total of 7 units stable Hb 8.9 s/p cysto, fulguration (see report) monitor PTT, PT INR monitor cbc, any bleeding Urology input appreciated, Armenta needs to stay in place for total of 2 weeks, to follow with Urology as outpatient Elevated troponin no chest pain, EKG with no significant change from previous trops chronically elevated, likely part due to decreased clearance from CKD 4 physical deconditioning PT recommended STR vs home with VNA and 24 hour supervision Hyperkalemia resolved daily lokelma, monitor thrombocytopenia chronic hypothyroidism? Continue home levothyroxine hypotension isodril, coreg on hold increase midodrine hyperlipidemia? Continue statin mood continue fluoxetine DVT prophylaxis Heparin HCP, her daughter reason for continued hospitalization: large right-sided pleural effusion requiring thoracentesis Pending INR to go down to prevent possible decompensation into I acute hypoxic respiratory failure and possible pneumonia Quality Stroke Does the patient have a stroke diagnosis?: No VTE Prior VTE?: No VTE Risk Level:: Medical - moderate - high VTE Device Contraindication: N/A - Device Ordered VTE Drug Contraindication: N/A - Med Ordered
[2022-04-01 15:19] VITALS: BP 94/55; PULSE 67; RESP 18; TEMP 36.2; O2SAT 98
--- NOTE | 2022-04-01 16:20 | PM.PNNEP ---
Subjective Subjective Date of Service: 04/01/22 Principal diagnosis: acute on chronic CHF, hematuria, mechanical Mitral valve Interval history: cc: coughing, difficulty breathing Creatinine worse today Chart Reviewed. Events noted. Physical Exam Vital Signs: Vital Signs: Last Vital Signs Temp 97.1 F 04/01/22 15:19 Pulse 67 04/01/22 15:19 Resp 18 04/01/22 15:19 BP 94/55 L 04/01/22 15:19 Pulse Ox 98 04/01/22 15:19 BMI result Body Mass Index 20.2 Const: General: no acute distress Orientation/consciousness: patient oriented x3 HEENT: Head: Yes normocephalic and Yes atraumatic Neck: Neck: Yes no JVD Resp: Auscultation: clear to auscultation bilaterally Cardio: Jugular venous distension: no JVD Rate: regular rate Rhythm: regular rhythm Heart sounds: S1 normal heart sound present and S2 normal heart sound present GI: Auscultation: normal bowel sounds Skin: Lesions: no lesions Neuro: General: patient oriented x3 and no focal motor deficits Extrem: General: Yes no clubbing, cyanosis or edema Objective Data Labs CBC & Chem 7: 03/31/22 05:55 04/01/22 05:18 Labs: Laboratory Results - last 24 hr 04/01/22 04/01/22 05:18 05:18 PT 85.5 H INR 7.2 H* D Sodium 140 Potassium 4.2 Chloride 107 Carbon Dioxide 21 L Anion Gap 16 BUN 104 H Creatinine 5.35 H* Estim Creat Clear Calc 9.5 Estimated GFR 8 Random Glucose 79 Calcium 6.9 L Procedures Date of Service Date of Service: 04/01/22 Assessment & Plan Assessment and plan (1) CKD (chronic kidney disease) stage 4, GFR 15-29 ml/min: Status: Acute Assessment and Plan: ALIZA due to compromise in renal perfusion Has advanced CKD at baseline Serum creatinine worse but stable now- Around 4.5 GFR should be even lower due to poor muscle mass No indication for renal replacement today however we will plan to have permcath placed and initiate HD here when INR wnl. Patient understands need for imminent dialysis and is agreeable. Will add on Hep B panel. Will refer for outpatient AVF placement Will coordinate outpatient HD placement as well. Low K Diet; Lokelma daily C/W rest of current management Labs AM. Shall closely F/U (2) Hematuria: Status: Acute (3) Hyperkalemia: Status: Acute (4) Acute kidney failure: Status: Acute Time Spent With Patient Time: Total time spent is greater than 50% in coordination of care (as documented) at patient's floor/unit and/or counseling patient: Progress Note: Quality Stroke Does the patient have a stroke diagnosis?: No
[2022-04-01 19:05] VITALS: BP 107/59; PULSE 71; RESP 16; TEMP 36.3; O2SAT 100
[2022-04-01] MEDS: Docusate Sodium 100 MG CAPSULE 200 MG PO (21:35)
[2022-04-01] MEDS: Atorvastatin Calcium 40 MG TABLET PO (21:38)
[2022-04-01] MEDS: traZODone HCL 50 MG TABLET PO (21:41)
[2022-04-01 23:25] VITALS: BP 90/42; PULSE 59; RESP 17; TEMP 36.4; O2SAT 94
[2022-04-02] VITALS (8 sets, daily range): BP systolic 77–100; BP diastolic 39–54; PULSE 58–101; RESP 16–18; TEMP 36.1–37; O2SAT 95–100
[2022-04-02] MEDS: 0.9 % Sodium Chloride 500 ML 250 ML IV (03:49)
[2022-04-02] MEDS: Omeprazole 20 MG CAPSULE.DR PO (05:48)
[2022-04-02] MEDS: Levothyroxine Sodium 112 MCG, Levothyroxine Sodium 25 MCG 137 MCG PO (05:48)
[2022-04-02 06:26] LABS: INTERNATIONAL NORM RATIO 3.6 (0.9-1.1); Prothrombin Time 42.2 SEC (9.9-13.0)
[2022-04-02 06:33] LABS: Anion Gap 17 (12-20); Blood Urea Nitrogen 110 mg/dL (9-16); Calcium 6.9 mg/dL (8.4-10.2); Carbon Dioxide 20 mmol/L (22-29); Chloride 104 mmol/L (96-108); Creatinine Clr Calc Pharmacy 8.9; Estimated Glomerular Filt Rate 7; Glucose Random 68 mg/dL (60-115); Potassium 4.2 mmol/L (3.3-5.1); Sodium 137 mmol/L (135-145)
[2022-04-02 06:42] LABS: HBS Num1 1.09 mIU/mL (0-7.99); HBc Num1 0.26 S/CO (0.00-0.79); HBsAGNum1 0.21 S/CO (0.00-0.99); Hepatitis B Core Antibody Nonreactive (Nonreactive); Hepatitis B Surface Antigen Negative (Negative); ~Hepatitis B Surface Antibody NONREACTIVE (Nonreactive)
[2022-04-02] MEDS: Benzonatate 100 MG CAPSULE PO ×3 (08:31→21:01)
[2022-04-02] MEDS: guaiFENesin LA 600 MG TAB.ER.12H PO ×2 (08:32→21:01)
[2022-04-02] MEDS: FLUoxetine HCl 20 MG CAPSULE 40 MG PO (08:32)
[2022-04-02] MEDS: 0.9 % Sodium Chloride Flush 3 ML SYRINGE IVFLUSH ×2 (08:32→14:33)
[2022-04-02] MEDS: Midodrine HCl 10 MG TABLET PO ×3 (08:32→15:59)
[2022-04-02] MEDS: Artificial Tears 15 ML DROPS 1 DROP EYE-BOTH ×3 (08:36→21:01)
--- NOTE | 2022-04-02 13:01 | HO.PM.IMPN ---
Subjective Subjective Date of Service: 04/02/22 Interval History: cc: coughing, difficulty breathing interval history: Creatinine worse today to 5.7 INR decreased to 3.5 still reporting coughing and dyspnea with exertion no bleeding,stable H&H Denies any fever or pain Review of Systems No fever, chills but reports generalized weakness No chest pain, palpitation Reporting coughing and feeling dyspneic on occasions mainly nighttime No abdominal pain, nausea or vomiting No urinary symptoms No any rash or wounds Physical Exam Vital Signs: Vital Signs: Last Vital Signs Temp 97.0 F 04/02/22 11:32 Pulse 101 H 04/02/22 11:32 Resp 17 04/02/22 11:32 BP 99/54 L 04/02/22 11:32 Pulse Ox 96 04/02/22 11:32 BMI result Body Mass Index 20.2 Const: Other: General: AO X 3, no acute distress Resp: decreased air entry over lytes side, fine crackles at bases, trace leg edema CVS: S1,S2,RRR GI: +BS, no tenderness,, no distention Skin: No rash noticed Urology: hematuria resolved Neuro: motor grossly intact, alert and interactive Psych: appropriate affect Objective Data Active Medications Acetaminophen (Acetaminophen 325 Mg Tablet) 650 mg PO Q6H PRN PRN Reason: Pain, Mild (Pain Scale 1-3) Last Admin: 03/30/22 17:58 Dose: 650 mg Documented by: NATIVIDAD Albuterol/Ipratropium (Albuterol/Iprat 2.5/0.5mg 3 Ml Ampul.Neb) 3 ml INHALE RQ4H PRN PRN Reason: Shortness of Breath/Wheezing Last Admin: 03/26/22 14:02 Dose: 3 ml Documented by: WICHO Artificial Tears (Artificial Tears 15 Ml Drops) 1 drop EYE-BOTH TID [facility] Last Admin: 04/02/22 08:36 Dose: 1 drop Documented by: DABBertha Ascorbic Acid (Ascorbic Acid 500 Mg Tablet) 500 mg PO BID [facility] Last Admin: 04/02/22 08:35 Dose: Not Given Documented by: KIMBERYL Non-Admin Reason: NPO Atorvastatin Calcium (Atorvastatin Calcium 40 Mg Tablet) 40 mg PO BEDTIME [facility] Last Admin: 04/01/22 21:38 Dose: 40 mg Documented by: MORRINL Benzonatate (Benzonatate 100 Mg Capsule) 100 mg PO TID [facility] Last Admin: 04/02/22 08:31 Dose: 100 mg Documented by: KIMBERLY Calcium Carbonate (Calcium Carbonate 500 Mg Tablet) 750 mg PO DAILY [facility] Last Admin: 04/02/22 08:35 Dose: Not Given Documented by: KIMBERLY Non-Admin Reason: NPO Docusate Sodium (Docusate Sodium 100 Mg Capsule) 100 mg PO DAILY PRN PRN Reason: Constipation Last Admin: 03/27/22 08:18 Dose: 100 mg Documented by: LYSJacob Docusate Sodium (Docusate Sodium 100 Mg Capsule) 200 mg PO BEDTIME [facility] Last Admin: 04/01/22 21:35 Dose: 200 mg Documented by: ISAMAR Fluoxetine HCl (Fluoxetine Hcl 20 Mg Capsule) 40 mg PO DAILY [facility] Last Admin: 04/02/22 08:32 Dose: 40 mg Documented by: KIMBERLY Furosemide (Furosemide 40 Mg/4 Ml Vial) 40 mg IVPUSH BID@0900,1800 [facility]; Protocol Guaifenesin (Guaifenesin 100 Mg/5 Ml Liquid) 5 ml PO Q6H PRN PRN Reason: Cough Last Admin: 03/31/22 19:34 Dose: 5 ml Documented by: STEFANIE Guaifenesin (Guaifenesin La 600 Mg Tab.Er.12h) 600 mg PO BID [facility] Last Admin: 04/02/22 08:32 Dose: 600 mg Documented by: KIMBERLY Levothyroxine Sodium 112 mcg/ (Levothyroxine Sodium 25 mcg) 137 mcg PO DAILY@0600 [facility] Last Admin: 04/02/22 05:48 Dose: 137 mcg Documented by: ISAMAR Midodrine (Midodrine Hcl 10 Mg Tablet) 10 mg PO TIDAC [facility] Last Admin: 04/02/22 11:52 Dose: 10 mg Documented by: KIMBERLY Omeprazole (Omeprazole 20 Mg Capsule.) 20 mg PO DAILY@0630 [facility] Last Admin: 04/02/22 05:48 Dose: 20 mg Documented by: ISAMAR Oxybutynin Chloride (Oxybutynin Chloride Er 5 Mg Tab.Er.24) 10 mg PO DAILY [facility] Last Admin: 04/02/22 08:32 Dose: 10 mg Documented by: KIMBERLY Pharmacy Consult (Consult Rx Perform Med Rec) 1 each MISCELLANE ONCE PRN PRN Reason: Consult order Sodium Chloride (0.9 % Sodium Chloride Flush 3 Ml Syringe) 3 ml IVFLUSH QSHIFT [facility] Last Admin: 04/02/22 08:32 Dose: 3 ml Documented by: KIMBERLY Sodium Zirconium Cyclosilicate (Sodium Zirconium Cyclosilicate 5 Gm Powd.Pack) 5 gm PO DAILY [facility] Last Admin: 04/02/22 08:35 Dose: Not Given Documented by: KIMBERLY Non-Admin Reason: NPO Trazodone HCl (Trazodone Hcl 50 Mg Tablet) 50 mg PO BEDTIME PRN PRN Reason: for insomnia Last Admin: 04/01/22 21:41 Dose: 50 mg Documented by: ISAMAR Labs CBC & Chem 7: 03/31/22 05:55 04/02/22 05:39 Labs: Laboratory Results - last 24 hr 04/01/22 04/02/22 04/02/22 05:18 05:39 05:39 PT 42.2 H INR 3.6 H D Anion Gap 17 Estim Creat Clear Calc 8.9 Estimated GFR 7 Random Glucose 68 Calcium 6.9 L Hep Bs Antigen Negative Hep Bs Antibody NONREACTIVE Hep B Core Total Ab Nonreactive Assessment and Plan (1) Pleural effusion: Status: Acute (2) Hypotension: Status: Acute (3) Acute kidney failure: Status: Acute (4) Acute on chronic heart failure with reduced ejection fraction and diastolic dysfunction: Status: Acute Plan 71 year old female with history of severe cardiomyopathy with EF 15-20% s/p AICD/PM, chronic atrial fibrillation, [place] mechanical mitral valve on [place], CKD, hypothyroidism, HLD, HTN, CAD, amyloidosis who presented to the ED with shortness of breath found to be in heart failure., now complicated by hematuria Acute on chronic HFrEF large Pleural effusion right holding Isodril for hypotension hold low-dose Coreg for hypotension last BNP improved to almost 900 hold IV lasix for worsening kidney function To do thoracentesis for fluid removal of the right lung by tomorrow if INR below 2, consider FFP if remains above [address] Palmer monitor I\O carmen on CKD 4, likely ATN Creatinine worse at 5.7 with oliguria monitor, avoid hypotension nephro to place PermCath with plan to start dialysis , likely inpatient ( pending INR to drop below 2) History of mechanical mitral valve Supratherapeutic INR INR of 3.5 after receiving 2.5 mg vitamin K INR goal 2.5-3.5 eventually hold warfarin today and monitor INR for plan of thoracentesis and PermCath placement by tomorrow Acute blood loss anemia secondary to hematuria received total of 7 units stable Hb around 8 s/p cysto, fulguration (see report) monitor PTT, PT INR monitor cbc, any bleeding Urology input appreciated, Armenta needs to stay in place for total of 2 weeks, to follow with Urology as outpatient Elevated troponin no chest pain, EKG with no significant change from previous trops chronically elevated, likely part due to decreased clearance from CKD 4 physical deconditioning PT recommended STR vs home with VNA and 24 hour supervision Hyperkalemia resolved daily lokelma, monitor thrombocytopenia chronic hypothyroidism? Continue home levothyroxine hypotension isodril, coreg on hold increase midodrine hyperlipidemia? Continue statin mood continue fluoxetine DVT prophylaxis Heparin ACP: discussed goals of care with the patient who would like to remain as a full code. I explained to her CPR and possible outcomes and she will think about DNR status after speaking with her family. HCP, her daughter reason for continued hospitalization: large right-sided pleural effusion requiring thoracentesis, worsening kidney function requiring start dialysis Pending INR to go down to prevent possible decompensation into I acute hypoxic respiratory failure and possible pneumonia Quality Stroke Does the patient have a stroke diagnosis?: No VTE Prior VTE?: No VTE Risk Level:: Medical - moderate - high VTE Device Contraindication: N/A - Device Ordered VTE Drug Contraindication: N/A - Med Ordered
--- NOTE | 2022-04-02 13:19 | MHC.CLN ---
F/U PATIENT WITH WORSENING KIDNEY FUNCTION. PLAN TO START DIALYSIS WHEN INR WITHIN NORMAL LIMITS. INTAKE USUALLY ABOUT 25% AT MEALS. DISLIKES ENSURE CLEAR SUPPLEMENT. DIET CHANGED PER DIALYSIS PARAMETERS TO 2 GRAM SODIUM, LOW POTASSIUM, LOW PHOSPHORUS. STAGE I TO COCCYX. FOLLOW INTAKE, LABS, DIALYSIS START.
--- NOTE | 2022-04-02 19:35 | PM.PNNEP ---
Subjective Subjective Date of Service: 04/02/22 Principal diagnosis: acute on chronic CHF, hematuria, mechanical Mitral valve Interval history: CHart Reviewed. Events noted. Physical Exam Vital Signs: Vital Signs: Last Vital Signs Temp 97.6 F 04/02/22 15:22 Pulse 60 04/02/22 15:22 Resp 16 04/02/22 15:22 BP 89/54 L 04/02/22 15:22 Pulse Ox 100 04/02/22 15:22 BMI result Body Mass Index 20.2 Const: General: no acute distress HEENT: Head: Yes normocephalic Neck: Neck: Yes no JVD Resp: Auscultation: crackles Cardio: Jugular venous distension: no JVD Rate: regular rate Rhythm: regular rhythm GI: Auscultation: normal bowel sounds Neuro: General: no focal motor deficits Extrem: General: Yes no clubbing, cyanosis or edema Objective Data Labs CBC & Chem 7: 03/31/22 05:55 04/02/22 05:39 Labs: Laboratory Results - last 24 hr 04/01/22 04/02/22 04/02/22 05:18 05:39 05:39 PT 42.2 H INR 3.6 H D Sodium 137 Potassium 4.2 Chloride 104 Carbon Dioxide 20 L Anion Gap 17 BUN 110 H Creatinine 5.71 H* Estim Creat Clear Calc 8.9 Estimated GFR 7 Random Glucose 68 Calcium 6.9 L Hep Bs Antigen Negative Hep Bs Antibody NONREACTIVE Hep B Core Total Ab Nonreactive Procedures Date of Service Date of Service: 04/02/22 Assessment & Plan Assessment and plan (1) Acute kidney failure: Status: Acute Assessment and Plan: ALIZA due to compromise in renal perfusion Has advanced CKD at baseline Serum creatinine worse and she is now CKD V with need for HD. Will work with primary team and IR to coordinate permcath placement for HD start as inpatient. [place] with [facility] to have outpatient HD placement as well. Patient understands need for imminent dialysis and is agreeable. Hep B panel. Will refer for outpatient AVF placement Low K Diet; Lokelma daily C/W rest of current management Labs AM. Shall closely F/U (2) CKD (chronic kidney disease) stage 4, GFR 15-29 ml/min: Status: Acute (3) Hypotension: Status: Acute (4) Hyperkalemia: Status: Acute Time Spent With Patient Time: Total time spent is greater than 50% in coordination of care (as documented) at patient's floor/unit and/or counseling patient: Progress Note: Quality Stroke Does the patient have a stroke diagnosis?: No
[2022-04-02] MEDS: Atorvastatin Calcium 40 MG TABLET PO (20:58)
[2022-04-02] MEDS: Ascorbic Acid 500 MG TABLET PO (20:58)
[2022-04-02] MEDS: Docusate Sodium 100 MG CAPSULE 200 MG PO (21:01)
[2022-04-03] VITALS (8 sets, daily range): BP systolic 96–112; BP diastolic 47–62; PULSE 65–79; RESP 16–20; TEMP 36.1–36.4; O2SAT 96–100
[2022-04-03] MEDS: 0.9 % Sodium Chloride Flush 3 ML SYRINGE IVFLUSH ×3 (01:07→16:18)
[2022-04-03] MEDS: Levothyroxine Sodium 112 MCG, Levothyroxine Sodium 25 MCG 137 MCG PO (05:51)
[2022-04-03] MEDS: Omeprazole 20 MG CAPSULE.DR PO (05:51)
[2022-04-03 06:33] LABS: Hematocrit 27.6 % (37.0-47.0); Hemoglobin 8.7 g/dl (12.0-16.0); Mean Corpuscular HGB Conc 31.5 g/dl (31.0-35.0); Mean Corpuscular Hemoglobin 30.2 pg (27.0-33.0); Mean Corpuscular Volume 95.8 fL (80.0-98.0); Mean Platelet Volume 10.9 fL (9.4-12.3); Platelet Count 164 X10*3/uL (160-400); Red Blood Count 2.88 X10*6/uL (4.20-5.50); White Blood Count 11.2 X10*3/uL (4.8-10.8)
[2022-04-03] MEDS: Midodrine HCl 10 MG TABLET PO ×2 (06:36→16:18)
[2022-04-03 06:46] LABS: Anion Gap 18 (12-20); Blood Urea Nitrogen 112 mg/dL (9-16); Calcium 7.1 mg/dL (8.4-10.2); Carbon Dioxide 19 mmol/L (22-29); Chloride 105 mmol/L (96-108); Creatinine Clr Calc Pharmacy 8.3; Estimated Glomerular Filt Rate 7; Glucose Random 66 mg/dL (60-115); Potassium 4.9 mmol/L (3.3-5.1); Sodium 137 mmol/L (135-145)
[2022-04-03] MEDS: Benzonatate 100 MG CAPSULE PO ×3 (08:10→21:34)
[2022-04-03] MEDS: guaiFENesin LA 600 MG TAB.ER.12H PO ×2 (08:10→21:34)
[2022-04-03] MEDS: Ascorbic Acid 500 MG TABLET PO ×2 (08:10→21:34)
[2022-04-03] MEDS: FLUoxetine HCl 20 MG CAPSULE 40 MG PO (08:10)
[2022-04-03] MEDS: Artificial Tears 15 ML DROPS 1 DROP EYE-BOTH ×3 (08:12→21:35)
[2022-04-03] MEDS: Sodium Zirconium Cyclosilicate 5 GM POWD.PACK PO (08:12)
[2022-04-03 09:25] LABS: INTERNATIONAL NORM RATIO 2.3 (0.9-1.1); Prothrombin Time 27.2 SEC (9.9-13.0)
[2022-04-03] MEDS: Lidocaine HCl 1 % MPF 5 ML VIAL SUBCUT (11:51)
[2022-04-03 12:03] LABS: WBC Pleural Fluid 0.132 X10*3/uL
[2022-04-03 12:08] LABS: RBC Pleural Fluid < 0.002 X10*3/uL
[2022-04-03 12:20] LABS: BF Shift QC OK YES; Basophils Pleural Fluid 0 %; Eosinophils Pleural Fluid 0 %; Lymphocytes Pleural Fluid 3 %; Monocytes Pleural Fluid 12 %; Neutrophils Pleural Fluid 16 %; Other Cells Plerual Fl 69 %
--- NOTE | 2022-04-03 12:45 | P.PNIM_ITS ---
Subjective Subjective Date of Service: 04/03/22 Interval History: cc: sob interval history:still sob ENT Ears, Nose, Mouth, and Throat: Reports system reviewed and no additional complaints, except as documented Cardiovascular Cardiovascular: Reports no additional cardiovascular complaints Physical Exam Vital Signs: Vital Signs: Last Vital Signs Temp 97.2 F 04/03/22 12:00 Pulse 79 04/03/22 12:00 Resp 20 04/03/22 12:00 BP 100/58 L 04/03/22 12:00 Pulse Ox 100 04/03/22 12:00 BMI result Body Mass Index 20.2 General: AO X 3, no acute distress Resp:? decreased air entry over lytes side,? fine crackles at bases,? trace leg edema CVS: S1,S2,RRR GI: +BS,? no tenderness,, no distention Skin: No rash noticed ?Urology: hematuria resolved Neuro:? motor grossly intact, alert and interactive Psych: appropriate affect Objective Data Active Medications Acetaminophen (Acetaminophen 325 Mg Tablet) 650 mg PO Q6H PRN PRN Reason: Pain, Mild (Pain Scale 1-3) Last Admin: 03/30/22 17:58 Dose: 650 mg Documented by: NATIVIDAD Albuterol/Ipratropium (Albuterol/Iprat 2.5/0.5mg 3 Ml Ampul.Neb) 3 ml INHALE RQ4H PRN PRN Reason: Shortness of Breath/Wheezing Last Admin: 03/26/22 14:02 Dose: 3 ml Documented by: WICHO Artificial Tears (Artificial Tears 15 Ml Drops) 1 drop EYE-BOTH TID [facility] Last Admin: 04/03/22 08:12 Dose: 1 drop Documented by: NATALY Ascorbic Acid (Ascorbic Acid 500 Mg Tablet) 500 mg PO BID [facility] Last Admin: 04/03/22 08:10 Dose: 500 mg Documented by: NATALY Atorvastatin Calcium (Atorvastatin Calcium 40 Mg Tablet) 40 mg PO BEDTIME [facility] Last Admin: 04/02/22 20:58 Dose: 40 mg Documented by: MELISSA Benzonatate (Benzonatate 100 Mg Capsule) 100 mg PO TID [facility] Last Admin: 04/03/22 08:10 Dose: 100 mg Documented by: NATALY Calcium Carbonate (Calcium Carbonate 500 Mg Tablet) 750 mg PO DAILY [facility] Last Admin: 04/03/22 08:09 Dose: 750 mg Documented by: NATALY Docusate Sodium (Docusate Sodium 100 Mg Capsule) 100 mg PO DAILY PRN PRN Reason: Constipation Last Admin: 03/27/22 08:18 Dose: 100 mg Documented by: MARI Docusate Sodium (Docusate Sodium 100 Mg Capsule) 200 mg PO BEDTIME [facility] Last Admin: 04/02/22 21:01 Dose: 200 mg Documented by: MELISSA Fluoxetine HCl (Fluoxetine Hcl 20 Mg Capsule) 40 mg PO DAILY [facility] Last Admin: 04/03/22 08:10 Dose: 40 mg Documented by: NATALY Furosemide (Furosemide 40 Mg/4 Ml Vial) 40 mg IVPUSH BID@0900,1800 [facility]; Protocol Guaifenesin (Guaifenesin 100 Mg/5 Ml Liquid) 5 ml PO Q6H PRN PRN Reason: Cough Last Admin: 03/31/22 19:34 Dose: 5 ml Documented by: STEFANIE Guaifenesin (Guaifenesin La 600 Mg Tab.Er.12h) 600 mg PO BID [facility] Last Admin: 04/03/22 08:10 Dose: 600 mg Documented by: NATALY Levothyroxine Sodium 112 mcg/ (Levothyroxine Sodium 25 mcg) 137 mcg PO DAILY@0600 [facility] Last Admin: 04/03/22 05:51 Dose: 137 mcg Documented by: BIB Midodrine (Midodrine Hcl 10 Mg Tablet) 10 mg PO TIDAC [facility] Last Admin: 04/03/22 06:36 Dose: 10 mg Documented by: BIB Omeprazole (Omeprazole 20 Mg Capsule.) 20 mg PO DAILY@0630 [facility] Last Admin: 04/03/22 05:51 Dose: 20 mg Documented by: BIB Oxybutynin Chloride (Oxybutynin Chloride Er 5 Mg Tab.Er.24) 10 mg PO DAILY [facility] Last Admin: 04/03/22 08:10 Dose: 10 mg Documented by: NATALY Pharmacy Consult (Consult Rx Perform Med Rec) 1 each MISCELLANE ONCE PRN PRN Reason: Consult order Sodium Chloride (0.9 % Sodium Chloride Flush 3 Ml Syringe) 3 ml IVFLUSH QSHIFT [facility] Last Admin: 04/03/22 08:12 Dose: 3 ml Documented by: NATALY Sodium Zirconium Cyclosilicate (Sodium Zirconium Cyclosilicate 5 Gm Powd.Pack) 5 gm PO DAILY [facility] Last Admin: 04/03/22 08:12 Dose: 5 gm Documented by: NATALY Trazodone HCl (Trazodone Hcl 50 Mg Tablet) 50 mg PO BEDTIME PRN PRN Reason: for insomnia Last Admin: 04/01/22 21:41 Dose: 50 mg Documented by: ISAMAR Labs CBC & Chem 7: 04/03/22 06:01 04/03/22 06:01 Labs: Laboratory Results - last 24 hr 04/03/22 04/03/22 04/03/22 06:01 06:01 06:01 MCV 95.8 MCH 30.2 MCHC 31.5 RDW 18.0 H Plt Count 164 D MPV 10.9 Absolute Nucleated RBC 0.000 Nucleated RBC % (auto) 0.0 PT 27.2 H INR 2.3 H Anion Gap 18 Estim Creat Clear Calc 8.3 Estimated GFR 7 Random Glucose 66 Calcium 7.1 L Pleural WBC Pleural RBC Pleural Neutrophils Pleural Lymphocytes Pleural Monocytes Pleural Eosinophils Pleural Basophils Pleural Other Cells 04/03/22 11:30 MCV MCH MCHC RDW Plt Count MPV Absolute Nucleated RBC Nucleated RBC % (auto) PT INR Anion Gap Estim Creat Clear Calc Estimated GFR Random Glucose Calcium Pleural WBC 0.132 Pleural RBC < 0.002 Pleural Neutrophils 16 Pleural Lymphocytes 3 Pleural Monocytes 12 Pleural Eosinophils 0 Pleural Basophils 0 Pleural Other Cells 69 Assessment and Plan (1) Pleural effusion: Status: Acute (2) Hypotension: Status: Acute (3) Acute kidney failure: Status: Acute (4) Acute on chronic heart failure with reduced ejection fraction and diastolic dysfunction: Status: Acute Plan 71 year old female with history of severe cardiomyopathy with EF 15-20% s/p AICD/PM, chronic atrial fibrillation, [place] mechanical mitral valve on [place], CKD, hypothyroidism, HLD, HTN, CAD, amyloidosis who presented to the ED with shortness of breath found to be in heart failure., now complicated by hematuria Acute on chronic HFrEF large Pleural effusion right holding Isodril for hypotension hold low-dose Coreg for hypotension last BNP improved to almost 900 hold IV lasix for worsening kidney function plan for thoracentesis for fluid removal of the right lung today monitor I\O carmen on CKD 4, likely ATN Creatinine worse with oliguria monitor, avoid hypotension nephro to place PermCath with plan to start dialysis , likely inpatient ( pending INR to drop below 2) History of mechanical mitral valve coumadin on hold for procedures Acute blood loss anemia secondary to hematuria received total of 7 units stable Hb around 8 s/p cysto, fulguration (see report) monitor PTT, PT INR monitor cbc, any bleeding Urology input appreciated, Armenta needs to stay in place for total of 2 weeks, to follow with Urology as outpatient Elevated troponin no chest pain, EKG with no significant change from previous trops chronically elevated, likely part due to decreased clearance from CKD 4 physical deconditioning PT recommended STR vs home with VNA and 24 hour supervision Hyperkalemia resolved daily lokelma, monitor thrombocytopenia chronic hypothyroidism? Continue home levothyroxine hypotension isodril, coreg on hold increase midodrine hyperlipidemia? Continue statin mood continue fluoxetine DVT prophylaxis Heparin ACP: discussed goals of care with the patient who would like to remain as a full code. I explained to her CPR and possible outcomes and she will think about DNR status after speaking with her family. HCP, her daughter reason for continued hospitalization: large right-sided pleural effusion requiring thoracentesis, worsening kidney function requiring start dialysis Pe nding INR to go down to prevent possible decompensation into I acute hypoxic respiratory failure and possible pneumonia Quality Stroke Does the patient have a stroke diagnosis?: No VTE Prior VTE?: No VTE Risk Level:: Medical - moderate - high VTE Device Contraindication: N/A - Device Ordered VTE Drug Contraindication: N/A - Med Ordered
[2022-04-03] MEDS: Magnesium Hydrox/Alum Hydrox 30 ML ORAL.SUSP 15 ML PO (16:18)
--- NOTE | 2022-04-03 16:32 | PM.PNNEP ---
Subjective Subjective Date of Service: 04/03/22 Principal diagnosis: acute on chronic CHF, hematuria, mechanical Mitral valve Interval history: cc: sob interval history:still sob CHart Reviewed. Events noted. Physical Exam Vital Signs: Vital Signs: Last Vital Signs Temp 97.1 F 04/03/22 15:10 Pulse 79 04/03/22 15:10 Resp 20 04/03/22 15:10 BP 105/55 L 04/03/22 15:10 Pulse Ox 100 04/03/22 15:10 BMI result Body Mass Index 20.2 Const: General: cooperative Orientation/consciousness: patient oriented x3 HEENT: Head: Yes normocephalic Neck: Neck: Yes no JVD Resp: Auscultation: clear to auscultation bilaterally Cardio: Jugular venous distension: no JVD Rate: regular rate Rhythm: regular rhythm Heart sounds: S1 normal heart sound present and S2 normal heart sound present GI: Auscultation: normal bowel sounds Neuro: General: patient oriented x3 Extrem: General: Yes no clubbing, cyanosis or edema Objective Data Labs CBC & Chem 7: 04/03/22 06:01 04/03/22 06:01 Labs: Laboratory Results - last 24 hr 04/03/22 04/03/22 04/03/22 06:01 06:01 06:01 WBC 11.2 H RBC 2.88 L Hgb 8.7 L Hct 27.6 L MCV 95.8 MCH 30.2 MCHC 31.5 RDW 18.0 H Plt Count 164 D MPV 10.9 Absolute Nucleated RBC 0.000 Nucleated RBC % (auto) 0.0 PT 27.2 H INR 2.3 H Sodium 137 Potassium 4.9 Chloride 105 Carbon Dioxide 19 L Anion Gap 18 BUN 112 H Creatinine 6.15 H* Estim Creat Clear Calc 8.3 Estimated GFR 7 Random Glucose 66 Calcium 7.1 L Pleural WBC Pleural RBC Pleural Neutrophils Pleural Lymphocytes Pleural Monocytes Pleural Eosinophils Pleural Basophils Pleural Other Cells 04/03/22 11:30 WBC RBC Hgb Hct MCV MCH MCHC RDW Plt Count MPV Absolute Nucleated RBC Nucleated RBC % (auto) PT INR Sodium Potassium Chloride Carbon Dioxide Anion Gap BUN Creatinine Estim Creat Clear Calc Estimated GFR Random Glucose Calcium Pleural WBC 0.132 Pleural RBC < 0.002 Pleural Neutrophils 16 Pleural Lymphocytes 3 Pleural Monocytes 12 Pleural Eosinophils 0 Pleural Basophils 0 Pleural Other Cells 69 Procedures Date of Service Date of Service: 04/03/22 Assessment & Plan Assessment and plan (1) CKD (chronic kidney disease) stage 5, GFR less than 15 ml/min: Status: Acute Plan Serum creatinine worse and she is now CKD V with need for HD. INR elevated. IR unable to do permcath. Let's plan to place temporary dialysis catheter tomorrow (04/04). Spoke with IR this am and they were agreeable to temporary catheter. She can start HD following placement. Recommend daily dialysis to lower BUN. Once INR wnl we should schedule permcath. Ideally this will take place on Thursday or Thursday. I have reached out to [facility] for outpatient dialysis placement as well. Patient is from [place]. Opening available in [facility]. Ledy ([facility]) at [facility] has received the patient's information. Patient understands need for imminent dialysis and is agreeable. Hep B panel. Will refer for outpatient AVF placement Low K Diet; Lokelma daily C/W rest of current management Labs AM. Shall closely F/U Time Spent With Patient Time: Total time spent is greater than 50% in coordination of care (as documented) at patient's floor/unit and/or counseling patient: Progress Note: Quality Stroke Does the patient have a stroke diagnosis?: No
[2022-04-03] MEDS: Albumin Human 25 % 100 ML 200 ML IV (17:32)
[2022-04-03] MEDS: Atorvastatin Calcium 40 MG TABLET PO (21:34)
[2022-04-03] MEDS: Docusate Sodium 100 MG CAPSULE 200 MG PO (21:34)
[2022-04-04] VITALS (9 sets, daily range): BP systolic 91–103; BP diastolic 48–58; PULSE 67–105; RESP 16–20; TEMP 36.1–36.8; O2SAT 94–100; BMI 20.2
[2022-04-04] MEDS: Levothyroxine Sodium 112 MCG, Levothyroxine Sodium 25 MCG 137 MCG PO (05:54)
[2022-04-04] MEDS: Midodrine HCl 10 MG TABLET PO ×3 (05:54→18:04)
[2022-04-04] MEDS: Omeprazole 20 MG CAPSULE.DR PO (05:55)
[2022-04-04 06:59] LABS: Hematocrit 23.9 % (37.0-47.0); Hemoglobin 7.6 g/dl (12.0-16.0); Mean Corpuscular HGB Conc 31.8 g/dl (31.0-35.0); Mean Corpuscular Hemoglobin 30.4 pg (27.0-33.0); Mean Corpuscular Volume 95.6 fL (80.0-98.0); Mean Platelet Volume 11.2 fL (9.4-12.3); Platelet Count 162 X10*3/uL (160-400); Red Cell Distribution Width 17.8 % (11.0-16.0)
[2022-04-04 07:01] LABS: INTERNATIONAL NORM RATIO 2.9 (0.9-1.1); Prothrombin Time 33.2 SEC (9.9-13.0)
[2022-04-04 07:20] LABS: Anion Gap 18 (12-20); Blood Urea Nitrogen 120 mg/dL (9-16); Calcium 7.1 mg/dL (8.4-10.2); Carbon Dioxide 19 mmol/L (22-29); Chloride 104 mmol/L (96-108); Creatinine Clr Calc Pharmacy 7.9; Estimated Glomerular Filt Rate 6; Glucose Fasting 68 mg/dL (60-99); Potassium 4.7 mmol/L (3.3-5.1); Sodium 136 mmol/L (135-145)
[2022-04-04] MEDS: Ascorbic Acid 500 MG TABLET PO ×2 (11:05→21:26)
[2022-04-04] MEDS: FLUoxetine HCl 20 MG CAPSULE 40 MG PO (11:05)
[2022-04-04] MEDS: guaiFENesin LA 600 MG TAB.ER.12H PO ×2 (11:05→21:26)
[2022-04-04] MEDS: Sodium Zirconium Cyclosilicate 5 GM POWD.PACK PO (11:06)
[2022-04-04] MEDS: Artificial Tears 15 ML DROPS 1 DROP EYE-BOTH ×3 (11:06→21:26)
[2022-04-04] MEDS: Benzonatate 100 MG CAPSULE PO ×3 (11:06→21:26)
[2022-04-04] MEDS: 0.9 % Sodium Chloride Flush 3 ML SYRINGE IVFLUSH ×4 (11:07→21:37)
--- NOTE | 2022-04-04 11:50 | P.PNIM_ITS ---
Subjective Subjective Date of Service: 04/04/22 Interval History: cc: sob interval history:still sob Cardiovascular Cardiovascular: Reports no additional cardiovascular complaints Respiratory Respiratory: Reports no additional respiratory complaints Physical Exam Vital Signs: Vital Signs: Last Vital Signs Temp 97.7 F 04/04/22 07:46 Pulse 67 04/04/22 07:46 Resp 20 04/04/22 07:46 BP 91/57 L 04/04/22 07:46 Pulse Ox 97 04/04/22 07:46 BMI result Body Mass Index 20.2 General: AO X 3, frail Resp:? decreased air entry over lytes side,? fine crackles at bases,? trace leg edema CVS: S1,S2,RRR GI: +BS,? no tenderness,, no distention Skin: No rash noticed ?Urology: hematuria resolved Neuro:? motor grossly intact, alert and interactive Psych: appropriate affect Objective Data Active Medications Acetaminophen (Acetaminophen 325 Mg Tablet) 650 mg PO Q6H PRN PRN Reason: Pain, Mild (Pain Scale 1-3) Last Admin: 03/30/22 17:58 Dose: 650 mg Documented by: NATIVIDAD Albuterol/Ipratropium (Albuterol/Iprat 2.5/0.5mg 3 Ml Ampul.Neb) 3 ml INHALE RQ 4H PRN PRN Reason: Shortness of Breath/Wheezing Last Admin: 03/26/22 14:02 Dose: 3 ml Documented by: WICHO Artificial Tears (Artificial Tears 15 Ml Drops) 1 drop EYE-BOTH TID [facility] Last Admin: 04/04/22 11:06 Dose: 1 drop Documented by: MAKEDA Ascorbic Acid (Ascorbic Acid 500 Mg Tablet) 500 mg PO BID [facility] Last Admin: 04/04/22 11:05 Dose: 500 mg Documented by: MAKEDA Atorvastatin Calcium (Atorvastatin Calcium 40 Mg Tablet) 40 mg PO BEDTIME [facility] Last Admin: 04/03/22 21:34 Dose: 40 mg Documented by: MELISSA Benzonatate (Benzonatate 100 Mg Capsule) 100 mg PO TID [facility] Last Admin: 04/04/22 11:06 Dose: 100 mg Documented by: MAKEDA Calcium Carbonate (Calcium Carbonate 500 Mg Tablet) 750 mg PO DAILY [facility] Last Admin: 04/04/22 11:05 Dose: 750 mg Documented by: MAKEDA Docusate Sodium (Docusate Sodium 100 Mg Capsule) 100 mg PO DAILY PRN PRN Reason: Constipation Last Admin: 03/27/22 08:18 Dose: 100 mg Documented by: MARI Docusate Sodium (Docusate Sodium 100 Mg Capsule) 200 mg PO BEDTIME [facility] Last Admin: 04/03/22 21:34 Dose: 200 mg Documented by: MELISSA Fluoxetine HCl (Fluoxetine Hcl 20 Mg Capsule) 40 mg PO DAILY [facility] Last Admin: 04/04/22 11:05 Dose: 40 mg Documented by: MAKEDA Furosemide (Furosemide 40 Mg/4 Ml Vial) 40 mg IVPUSH BID@0900,1800 [facility]; Protocol Guaifenesin (Guaifenesin 100 Mg/5 Ml Liquid) 5 ml PO Q6H PRN PRN Reason: Cough Last Admin: 03/31/22 19:34 Dose: 5 ml Documented by: STEFANIE Guaifenesin (Guaifenesin La 600 Mg Tab.Er.12h) 600 mg PO BID [facility] Last Admin: 04/04/22 11:05 Dose: 600 mg Documented by: MAKEDA Levothyroxine Sodium 112 mcg/ (Levothyroxine Sodium 25 mcg) 137 mcg PO DAILY@0600 [facility] Last Admin: 04/04/22 05:54 Dose: 137 mcg Documented by: BIB Midodrine (Midodrine Hcl 10 Mg Tablet) 10 mg PO TIDAC [facility] Last Admin: 04/04/22 11:05 Dose: 10 mg Documented by: MAKEDA Omeprazole (Omeprazole 20 Mg Capsule.) 20 mg PO DAILY@0630 [facility] Last Admin: 04/04/22 05:55 Dose: 20 mg Documented by: BIB Oxybutynin Chloride (Oxybutynin Chloride Er 5 Mg Tab.Er.24) 10 mg PO DAILY [facility] Last Admin: 04/04/22 11:05 Dose: 10 mg Documented by: MAKEDA Pharmacy Consult (Consult Rx Perform Med Rec) 1 each MISCELLANE ONCE PRN PRN Reason: Consult order Sodium Chloride (0.9 % Sodium Chloride Flush 3 Ml Syringe) 3 ml IVFLUSH QSHIFT [facility] Last Admin: 04/04/22 11:07 Dose: 3 ml Documented by: MAKEDA Sodium Zirconium Cyclosilicate (Sodium Zirconium Cyclosilicate 5 Gm Powd.Pack) 5 gm PO DAILY [facility] Last Admin: 04/04/22 11:06 Dose: 5 gm Documented by: MAKEDA Trazodone HCl (Trazodone Hcl 50 Mg Tablet) 50 mg PO BEDTIME PRN PRN Reason: for insomnia Last Admin: 04/01/22 21:41 Dose: 50 mg Documented by: ISAMAR Labs CBC & Chem 7: 04/04/22 06:10 04/04/22 06:10 Labs: Laboratory Results - last 24 hr 04/03/22 04/04/22 04/04/22 11:30 06:10 06:10 MCV 95.6 MCH 30.4 MCHC 31.8 RDW 17.8 H Plt Count 162 MPV 11.2 Absolute Nucleated RBC 0.000 Nucleated RBC % (auto) 0.0 PT INR Anion Gap 18 Estim Creat Clear Calc 7.9 Estimated GFR 6 Fasting Glucose 68 Calcium 7.1 L Pleural WBC 0.132 Pleural RBC < 0.002 Pleural Neutrophils 16 Pleural Lymphocytes 3 Pleural Monocytes 12 Pleural Eosinophils 0 Pleural Basophils 0 Pleural Other Cells 69 Blood Type Antibody Screen Crossmatch ([facility]) 04/04/22 04/04/22 06:10 09:17 MCV MCH MCHC RDW Plt Count MPV Absolute Nucleated RBC Nucleated RBC % (auto) PT 33.2 H INR 2.9 H Anion Gap Estim Creat Clear Calc Estimated GFR Fasting Glucose Calcium Pleural WBC Pleural RBC Pleural Neutrophils Pleural Lymphocytes Pleural Monocytes Pleural Eosinophils Pleural Basophils Pleural Other Cells Blood Type B Negative Antibody Screen POSITIVE Crossmatch ([facility]) See Detail Assessment and Plan (1) Pleural effusion: Status: Acute (2) Hypotension: Status: Acute (3) Acute kidney failure: Status: Acute (4) Acute on chronic heart failure with reduced ejection fraction and diastolic dysfunction: Status: Acute Plan 71 year old female with history of severe cardiomyopathy with EF 15-20% s/p AICD/PM, chronic atrial fibrillation, [place] mechanical mitral valve on [place], CKD, hypothyroidism, HLD, HTN, CAD, amyloidosis who presented to the ED with shortness of breath found to be in heart failure., now complicated by hematuria Acute on chronic HFrEF large Pleural effusion right holding Isodril for hypotension hold low-dose Coreg for hypotension last BNP improved to almost 900 holding IV lasix for worsening kidney function s/p right thoracentesis 04/03 with 1.2L removed monitor I\O carmen on CKD 4, likely ATN Creatinine worse with oliguria monitor, avoid hypotension plan for temporary catheter today, eventual permacath, inr 2.9, will give 1 unit ffp prior as risk for bleeding considered > risk for thromboses. History of mechanical mitral valve Coumadin on hold for procedures Acute blood loss anemia secondary to hematuria received total of 7 units stable Hb around 8 s/p cysto, fulguration (see report) monitor PTT, PT INR monitor cbc, any bleeding Urology input appreciated, Armenta needs to stay in place for total of 2 weeks, to follow with Urology as outpatient Elevated troponin no chest pain, EKG with no significant change from previous trops chronically elevated, likely part due to decreased clearance from CKD 4 physical deconditioning PT recommended STR vs home with VNA and 24 hour supervision Hyperkalemia resolved daily lokelma, monitor thrombocytopenia chronic hypothyroidism? Continue home levothyroxine hypotension isodril, coreg on hold increase midodrine hyperlipidemia? Continue statin mood continue fluoxetine DVT prophylaxis Heparin ACP: discussed goals of care with the patient who would like to remain as a full code. I explained to her CPR and possible outcomes and she will think about DNR status after speaking with her family. HCP, her daughter reason for continued hospitalization: worsening kidney function requiring start dialysis prevent possible decompensation into I acute hypoxic respiratory failure and possible pneumonia Quality Stroke Does the patient have a stroke diagnosis?: No VTE Prior VTE?: No VTE Risk Level:: Medical - moderate - high VTE Device Contraindication: N/A - Device Ordered VTE Drug Contraindication: N/A - Med Ordered
--- NOTE | 2022-04-04 13:04 | MHC.CM.PN ---
Female 71 DX SOB CHF No dc today. Patient expected to require continued hospitalization for HD access replacement. She will get a temporary line for HD access. She will eventionally require a Permacath. DP Home with [facility]. Patients dtr will transport.
--- NOTE | 2022-04-04 13:46 | MHC.CLN ---
PT IS MODERATELY MALNOURISHED PT WITH MILDLY DEPLETED SUBCUTANEOUS FAT AND MUSCLE MASS AND CHRONIC POOR PO INTAKE R/T LETHARGY PER PT. PT TRIGGERS FOR 10% SIGNIFICANT WT LOSS X 6MONTHS, HOWEVER PT USES DIURETICS AND DX CHF MAY BE CONTRIBUTORS TO WEIGHT VARIANCES. PT ALSO S/P R THORACENTESIS WITH 1.2L REMOVED. PT ALSO RECENTLY STARTED HD. DIET RX: 2GM NA LOW K+, LOW PHOS-RECOMMEND LIBERALIZE DIET TO INCREASE VARIETY AND PROMOTE INCREASE IN PO INTAKE UPON INTERVIEW PT STATES PO INTAKE IS POOR R/T LETHARGY; I'M JUST TOO TIRED TO EAT . PO INTAKE 0-50% OBSERVED LUNCH MEAL UNTOUCHED AT BEDSIDE. PT DOES BETTER WITH DRINKING-WHOLE MILK AT BEDSIDE. PT DISLIKED THE TASTE OF ENSURE CLEAR. PT RECEPTIVE TO TRIAL OF STRAWBERRY FLAVORED ENSURE ENLIVE TO INCREASE PO. SUPP TO PROVIDE 700KCALS, 40G PROTEIN. MONITOR PO INTAKE CLOSELY SEE ALSO FULL CLINICAL NUTRITION ASSESSMENT DATED 04/04/22
[2022-04-04] MEDS: Lidocaine HCl 1 % 20 ML VIAL 10 ML SUBCUT (15:25)
[2022-04-04] MEDS: Heparin Sodium,Porcine 1,000 UNIT/ML VIAL 2800 UNIT IV (15:27)
[2022-04-04 19:19] LABS: Albumin Pleural Fluid 0.2 GM/DL; Glucose Pleural Fluid 75 MG/DL; LDH Pleural Fluid 55 U/L; Total Protein Pleural Fluid 0.8 GM/DL
--- NOTE | 2022-04-04 20:48 | P.PNNP_ITS ---
Subjective Subjective Date of Service: 04/04/22 Principal diagnosis: acute on chronic CHF, hematuria, mechanical Mitral valve Interval history: Seen and examined, events noted Physical Exam Vital Signs: Vital Signs: Last Vital Signs Temp 97.5 F 04/04/22 19:07 Pulse 105 H 04/04/22 19:07 Resp 20 04/04/22 19:07 BP 99/48 L 04/04/22 19:07 Pulse Ox 100 04/04/22 19:07 BMI result Body Mass Index 20.2 Const: General: cooperative, no acute distress and tired appearing Orientation/consciousness: patient oriented x3 HEENT: Head: Yes normal to inspection, Yes normocephalic and Yes atraumatic Eyes: EOM: EOMs intact bilaterally Neck: Neck: Yes supple and Yes no JVD Resp: Auscultation: clear to auscultation bilaterally, crackles and diminished lung sounds Cardio: Jugular venous distension: no JVD Rate: regular rate Rhythm: reg ular rhythm Heart sounds: S1 normal heart sound present and S2 normal heart sound present GI: Palpation (GI): Soft to palpation Auscultation: normal bowel sounds Skin: Lesions: no lesions Neuro: General: patient oriented x3, moves all extremities and no focal motor deficits Extrem: General: Yes no clubbing, cyanosis or edema Objective Data Labs CBC & Chem 7: 04/04/22 06:10 04/04/22 06:10 Labs: Laboratory Results - last 24 hr 04/03/22 04/04/22 04/04/22 11:30 06:10 06:10 WBC 12.0 H RBC 2.50 L Hgb 7.6 L Hct 23.9 L MCV 95.6 MCH 30.4 MCHC 31.8 RDW 17.8 H Plt Count 162 MPV 11.2 Absolute Nucleated RBC 0.000 Nucleated RBC % (auto) 0.0 PT INR Sodium 136 Potassium 4.7 Chloride 104 Carbon Dioxide 19 L Anion Gap 18 BUN 120 H Creatinine 6.49 H* Estim Creat Clear Calc 7.9 Estimated GFR 6 Fasting Glucose 68 Calcium 7.1 L Pleural Total Protein 0.8 Pleural Albumin 0.2 Pleural LDH 55 Pleural Glucose 75 Blood Type Antibody Screen Antibody Identification Crossmatch ([facility]) 04/04/22 04/04/22 06:10 09:17 WBC RBC Hgb Hct MCV MCH MCHC RDW Plt Count MPV Absolute Nucleated RBC Nucleated RBC % (auto) PT 33.2 H INR 2.9 H Sodium Potassium Chloride Carbon Dioxide Anion Gap BUN Creatinine Estim Creat Clear Calc Estimated GFR Fasting Glucose Calcium Pleural Total Protein Pleural Albumin Pleural LDH Pleural Glucose Blood Type B Negative Antibody Screen POSITIVE Antibody Identification Anti-D Crossmatch ([facility]) See Detail Microbiology Microbiology Results: Microbiology 04/03/22 11:30 Thoracentesis Fluid Gram Stain - Final Procedures Date of Service Date of Service: 04/04/22 Assessment & Plan Assessment and plan (1) CKD (chronic kidney disease) stage 5, GFR less than 15 ml/min: Status: Acute Plan 1.ALIZA on adv CKD now prog to ESRD and plan to start HD 2. CKD 4/5: BSL SCr 2.5-3.5 3. Anemia 4.MBD of CKD 5. D/C planning--ques home vs rehab REC: HD cath today and start HD in am; d/c plannng being sorted out Time Spent With Patient Time: Total time spent is greater than 50% in coordination of care (as documented) at patient's floor/unit and/or counseling patient: Progress Note: Quality Stroke Does the patient have a stroke diagnosis?: No
[2022-04-04] MEDS: Docusate Sodium 100 MG CAPSULE 200 MG PO (21:25)
[2022-04-04] MEDS: Atorvastatin Calcium 40 MG TABLET PO (21:26)
[2022-04-05] VITALS (9 sets, daily range): BP systolic 70–117; BP diastolic 38–63; PULSE 89–105; RESP 16–20; TEMP 36.4–37.4; O2SAT 91–99
[2022-04-05] MEDS: ondansetron HCL 4 MG/2 ML VIAL IVPUSH (02:23)
[2022-04-05] MEDS: guaiFENesin 100 MG/5 ML LIQUID PO (02:51)
[2022-04-05] MEDS: Acetaminophen 325 MG TABLET 650 MG PO (02:51)
[2022-04-05] MEDS: traZODone HCL 50 MG TABLET PO (02:58)
--- NOTE | 2022-04-05 03:52 | PC.NURSE ---
Pt complaining of stomach hurting and nausea. Zofran administered. Bladder scanned with 100ml present. Armenta patent and draining yellow color urine. Will continue to monitor.
--- NOTE | 2022-04-05 04:22 | PM.EVENT ---
Event Note Date of Service: 04/05/22 Event Note: hypotension: Patient asymptomatic Blood pressure noted to be 70/38 Small fluid bolus 750cc and midodrine Question related to trazodone which she just received
[2022-04-05] MEDS: Midodrine HCl 10 MG TABLET PO ×2 (05:02→12:08)
[2022-04-05] MEDS: Omeprazole 20 MG CAPSULE.DR PO (05:07)
[2022-04-05] MEDS: Levothyroxine Sodium 112 MCG, Levothyroxine Sodium 25 MCG 137 MCG PO (05:07)
[2022-04-05] MEDS: 0.9 % Sodium Chloride 500 ML 250 ML IV (05:09)
[2022-04-05 06:53] LABS: Hematocrit 23.9 % (37.0-47.0); Hemoglobin 7.5 g/dl (12.0-16.0); Mean Corpuscular HGB Conc 31.4 g/dl (31.0-35.0); Mean Corpuscular Hemoglobin 30.4 pg (27.0-33.0); Mean Corpuscular Volume 96.8 fL (80.0-98.0); Mean Platelet Volume 10.9 fL (9.4-12.3); Platelet Count 155 X10*3/uL (160-400); Red Blood Count 2.47 X10*6/uL (4.20-5.50); Red Cell Distribution Width 17.9 % (11.0-16.0); White Blood Count 10.2 X10*3/uL (4.8-10.8)
[2022-04-05 06:58] LABS: INTERNATIONAL NORM RATIO 2.7 (0.9-1.1); Prothrombin Time 31.3 SEC (9.9-13.0)
[2022-04-05 07:18] LABS: Anion Gap 19 (12-20); Blood Urea Nitrogen 122 mg/dL (9-16); Calcium 6.9 mg/dL (8.4-10.2); Carbon Dioxide 17 mmol/L (22-29); Chloride 106 mmol/L (96-108); Creatinine Clr Calc Pharmacy 7.6; Estimated Glomerular Filt Rate 6; Glucose Fasting 100 mg/dL (60-99); Potassium 4.9 mmol/L (3.3-5.1); Sodium 137 mmol/L (135-145)
[2022-04-05] MEDS: Sodium Zirconium Cyclosilicate 5 GM POWD.PACK PO (10:45)
[2022-04-05] MEDS: Benzonatate 100 MG CAPSULE PO ×3 (10:45→20:08)
[2022-04-05] MEDS: FLUoxetine HCl 20 MG CAPSULE 40 MG PO (10:45)
[2022-04-05] MEDS: Ascorbic Acid 500 MG TABLET PO ×2 (10:45→20:08)
[2022-04-05] MEDS: guaiFENesin LA 600 MG TAB.ER.12H PO ×2 (10:45→20:08)
[2022-04-05] MEDS: 0.9 % Sodium Chloride Flush 3 ML SYRINGE IVFLUSH ×2 (10:46→20:09)
[2022-04-05] MEDS: Artificial Tears 15 ML DROPS 1 DROP EYE-BOTH ×3 (10:46→20:08)
--- NOTE | 2022-04-05 13:03 | HO.PM.IMPN ---
Subjective Subjective Date of Service: 04/05/22 Interval History: cc: sob interval history:still sob Cardiovascular Cardiovascular: Reports no additional cardiovascular complaints Respiratory Respiratory: Reports no additional respiratory complaints Physical Exam Vital Signs: Vital Signs: Last Vital Signs Temp 97.6 F 04/05/22 11:39 Pulse 89 04/05/22 11:39 Resp 16 04/05/22 11:39 BP 84/46 L 04/05/22 11:39 Pulse Ox 99 04/05/22 11:39 BMI result Body Mass Index 20.2 General: AO X 3, frail Resp:? decreased air entry over lytes side,? fine crackles at bases,? trace leg edema CVS: S1,S2,RRR GI: +BS,? no tenderness,, no distention Skin: No rash noticed ?Urology: hematuria resolved Neuro:? motor grossly intact, alert and interactive Psych: appropriate affect Objective Data Active Medications Acetaminophen (Acetaminophen 325 Mg Tablet) 650 mg PO Q6H PRN PRN Reason: Pain, Mild (Pain Scale 1-3) Last Admin: 04/05/22 02:51 Dose: 650 mg Documented by: IDALIA Albuterol/Ipratropium (Albuterol/Iprat 2.5/0.5mg 3 Ml Ampul.Neb) 3 ml INHALE RQ4H PRN PRN Reason: Shortness of Breath/Wheezing Last Admin: 03/26/22 14:02 Dose: 3 ml Documented by: WICHO Artificial Tears (Artificial Tears 15 Ml Drops) 1 drop EYE-BOTH TID COUNTS INCLUDE 234 BEDS AT THE [facility] Last Admin: 04/05/22 10:46 Dose: 1 drop Documented by: RADHA Ascorbic Acid (Ascorbic Acid 500 Mg Tablet) 500 mg PO BID COUNTS INCLUDE 234 BEDS AT THE [facility] Last Admin: 04/05/22 10:45 Dose: 500 mg Documented by: RADHA Atorvastatin Calcium (Atorvastatin Calcium 40 Mg Tablet) 40 mg PO BEDTIME COUNTS INCLUDE 234 BEDS AT THE [facility] Last Admin: 04/04/22 21:26 Dose: 40 mg Documented by: IDALIA Benzonatate (Benzonatate 100 Mg Capsule) 100 mg PO TID COUNTS INCLUDE 234 BEDS AT THE [facility] Last Admin: 04/05/22 10:45 Dose: 100 mg Documented by: RADHA Calcium Carbonate (Calcium Carbonate 500 Mg Tablet) 750 mg PO DAILY COUNTS INCLUDE 234 BEDS AT THE [facility] Last Admin: 04/05/22 10:44 Dose: 750 mg Documented by: RADHA Docusate Sodium (Docusate Sodium 100 Mg Capsule) 100 mg PO DAILY PRN PRN Reason: Constipation Last Admin: 03/27/22 08:18 Dose: 100 mg Documented by: MARI Docusate Sodium (Docusate Sodium 100 Mg Capsule) 200 mg PO BEDTIME COUNTS INCLUDE 234 BEDS AT THE [facility] Last Admin: 04/04/22 21:25 Dose: 200 mg Documented by: IDALIA Fluoxetine HCl (Fluoxetine Hcl 20 Mg Capsule) 40 mg PO DAILY COUNTS INCLUDE 234 BEDS AT THE [facility] Last Admin: 04/05/22 10:45 Dose: 40 mg Documented by: RADHA Furosemide (Furosemide 40 Mg/4 Ml Vial) 40 mg IVPUSH BID@0900,1800 COUNTS INCLUDE 234 BEDS AT THE [facility]; Protocol Guaifenesin (Guaifenesin 100 Mg/5 Ml Liquid) 5 ml PO Q6H PRN PRN Reason: Cough Last Admin: 04/05/22 02:51 Dose: 5 ml Documented by: IDALIA Guaifenesin (Guaifenesin La 600 Mg Tab.Er.12h) 600 mg PO BID COUNTS INCLUDE 234 BEDS AT THE [facility] Last Admin: 04/05/22 10:45 Dose: 600 mg Documented by: RADHA Levothyroxine Sodium 112 mcg/ (Levothyroxine Sodium 25 mcg) 137 mcg PO DAILY@0600 COUNTS INCLUDE 234 BEDS AT THE [facility] Last Admin: 04/05/22 05:07 Dose: 137 mcg Documented by: IDALIA Midodrine (Midodrine Hcl 10 Mg Tablet) 10 mg PO TIDAC COUNTS INCLUDE 234 BEDS AT THE [facility] Last Admin: 04/05/22 12:08 Dose: 10 mg Documented by: RADHA Omeprazole (Omeprazole 20 Mg Capsule.) 20 mg PO DAILY@0630 COUNTS INCLUDE 234 BEDS AT THE [facility] Last Admin: 04/05/22 05:07 Dose: 20 mg Documented by: IDALIA Oxybutynin Chloride (Oxybutynin Chloride Er 5 Mg Tab.Er.24) 10 mg PO DAILY COUNTS INCLUDE 234 BEDS AT THE [facility] Last Admin: 04/05/22 10:45 Dose: 10 mg Documented by: RADHA Pharmacy Consult (Consult Rx Perform Med Rec) 1 each MISCELLANE ONCE PRN PRN Reason: Consult order Sodium Chloride (0.9 % Sodium Chloride Flush 3 Ml Syringe) 3 ml IVFLUSH QSHIFT COUNTS INCLUDE 234 BEDS AT THE [facility] Last Admin: 04/05/22 10:46 Dose: 3 ml Documented by: RADHA Sodium Zirconium Cyclosilicate (Sodium Zirconium Cyclosilicate 5 Gm Powd.Pack) 5 gm PO DAILY [facility] Last Admin: 04/05/22 10:45 Dose: 5 gm Documented by: RADHA Labs CBC & Chem 7: 04/05/22 06:25 04/05/22 06:25 Labs: Laboratory Results - last 24 hr 04/03/22 04/04/22 04/05/22 11:30 09:17 06:25 MCV MCH MCHC RDW Plt Count MPV Absolute Nucleated RBC Nucleated RBC % (auto) PT 31.3 H INR 2.7 H Anion Gap Estim Creat Clear Calc Estimated GFR Fasting Glucose Calcium Pleural Total Protein 0.8 Pleural Albumin 0.2 Pleural LDH 55 Pleural Glucose 75 Blood Type B Negative Antibody Screen POSITIVE Antibody Identification Anti-D Crossmatch ([facility]) See Detail 04/05/22 04/05/22 06:25 06:25 MCV 96.8 MCH 30.4 MCHC 31.4 RDW 17.9 H Plt Count 155 L MPV 10.9 Absolute Nucleated RBC 0.000 Nucleated RBC % (auto) 0.0 PT INR Anion Gap 19 Estim Creat Clear Calc 7.6 Estimated GFR 6 Fasting Glucose 100 H Calcium 6.9 L Pleural Total Protein Pleural Albumin Pleural LDH Pleural Glucose Blood Type Antibody Screen Antibody Identification Crossmatch ([facility]) Microbiology Microbiology Results: Microbiology 04/03/22 11:30 Gram Stain - Final Thoracentesis Fluid Anaerobic Culture - Preliminary No growth to date. Body Fluid Culture - Preliminary No growth after 1 day Assessment and Plan (1) Pleural effusion: Status: Acute (2) Hypotension: Status: Acute (3) Acute kidney failure: Status: Acute (4) Acute on chronic heart failure with reduced ejection fraction and diastolic dysfunction: Status: Acute Plan 71 year old female with history of severe cardiomyopathy with EF 15-20% s/p AICD/PM, chronic atrial fibrillation, [place] mechanical mitral valve on [place], CKD, hypothyroidism, HLD, HTN, CAD, amyloidosis who presented to the ED with shortness of breath found to be in heart failure., now complicated by hematuria Acute on chronic HFrEF large Pleural effusion right holding Isodril for hypotension hold low-dose Coreg for hypotension last BNP improved to almost 900 holding IV lasix for worsening kidney function s/p right thoracentesis 5/26 with 1.2L removed monitor I\O carmen on CKD 4, likely ATN Creatinine worse with oliguria monitor, avoid hypotension s/p temporary catheter 04/04/22 plan for hd today will need permacath eventually so will continue to hold coumadin History of mechanical mitral valve Coumadin on hold for procedures Acute blood loss anemia secondary to hematuria received total of 7 units stable Hb around 7-8 s/p cysto, fulguration (see report) monitor PTT, PT INR monitor cbc, any bleeding Urology input appreciated, Armenta needs to stay in place for total of 2 weeks, to follow with Urology as outpatient Elevated troponin no chest pain, EKG with no significant change from previous trops chronically elevated, likely part due to decreased clearance from CKD 4 physical deconditioning PT recommended STR vs home with VNA and 24 hour supervision Hyperkalemia resolved daily lokelma, monitor thrombocytopenia chronic hypothyroidism? Continue home levothyroxine hypotension isodril, coreg on hold increase midodrine hyperlipidemia? Continue statin mood continue fluoxetine DVT prophylaxis Heparin reason for continued hospitalization: worsening kidney function requiring start dialysis prevent possible decompensation into I acute hypoxic respiratory failure and possible pneumonia Quality Stroke Does the patient have a stroke diagnosis?: No VTE Prior VTE?: No VTE Risk Level:: Medical - moderate - high VTE Device Contraindication: N/A - Device Ordered VTE Drug Contraindication: N/A - Med Ordered
--- NOTE | 2022-04-05 13:34 | P.PNNP_ITS ---
Subjective Subjective Date of Service: 04/05/22 Principal diagnosis: acute on chronic CHF, hematuria, mechanical Mitral valve Interval history: Seen and examiend, events noted Physical Exam Vital Signs: Vital Signs: Last Vital Signs Temp 97.6 F 04/05/22 11:39 Pulse 89 04/05/22 11:39 Resp 16 04/05/22 11:39 BP 84/46 L 04/05/22 11:39 Pulse Ox 99 04/05/22 11:39 BMI result Body Mass Index 20.2 Const: General: cooperative, no acute distress and tired appearing Orientation/consciousness: patient oriented x3 HEENT: Head: Yes normal to inspection, Yes normocephalic and Yes atraumatic Eyes: EOM: EOMs intact bilaterally Neck: Neck: Yes supple and Yes no JVD Resp: Auscultation: clear to auscultation bilaterally, crackles and diminished lung sounds Cardio: Jugular venous distension: no JVD Rate: regular rate Rhythm: reg ular rhythm Heart sounds: S1 normal heart sound present and S2 normal heart sound present GI: Palpation (GI): Soft to palpation Auscultation: normal bowel sounds Skin: Lesions: no lesions Neuro: General: patient oriented x3, moves all extremities and no focal motor deficits Extrem: General: Yes no clubbing, cyanosis or edema Objective Data Labs CBC & Chem 7: 04/05/22 06:25 04/05/22 06:25 Labs: Laboratory Results - last 24 hr 04/03/22 04/04/22 04/05/22 11:30 09:17 06:25 WBC RBC Hgb Hct MCV MCH MCHC RDW Plt Count MPV Absolute Nucleated RBC Nucleated RBC % (auto) PT 31.3 H INR 2.7 H Sodium Potassium Chloride Carbon Dioxide Anion Gap BUN Creatinine Estim Creat Clear Calc Estimated GFR Fasting Glucose Calcium Pleural Total Protein 0.8 Pleural Albumin 0.2 Pleural LDH 55 Pleural Glucose 75 Crossmatch ([facility]) See Detail 04/05/22 04/05/22 06:25 06:25 WBC 10.2 RBC 2.47 L Hgb 7.5 L Hct 23.9 L MCV 96.8 MCH 30.4 MCHC 31.4 RDW 17.9 H Plt Count 155 L MPV 10.9 Absolute Nucleated RBC 0.000 Nucleated RBC % (auto) 0.0 PT INR Sodium 137 Potassium 4.9 Chloride 106 Carbon Dioxide 17 L Anion Gap 19 BUN 122 H Creatinine 6.77 H* Estim Creat Clear Calc 7.6 Estimated GFR 6 Fasting Glucose 100 H Calcium 6.9 L Pleural Total Protein Pleural Albumin Pleural LDH Pleural Glucose Crossmatch ([facility]) Microbiology Microbiology Results: Microbiology 04/03/22 11:30 Thoracentesis Fluid Gram Stain - Final 04/03/22 11:30 Thoracentesis Fluid Anaerobic Culture - Preliminary No growth to date. 04/03/22 11:30 Thoracentesis Fluid Body Fluid Culture - Preliminary No growth after 1 day Procedures Date of Service Date of Service: 04/05/22 Assessment & Plan Assessment and plan (1) CKD (chronic kidney disease) stage 5, GFR less than 15 ml/min: Status: Acute Plan 1.ALIZA on adv CKD now prog to ESRD and plan to start HD 2. CKD 4/5: BSL SCr 2.5-3.5 3. Anemia 4.MBD of CKD 5. D/C planning--ques home vs rehab REC: HD cath placed yest and HD today; d/c plannng being sorted out Time Spent With Patient Time: Total time spent is greater than 50% in coordination of care (as documented) at patient's floor/unit and/or counseling patient: Progress Note: Quality Stroke Does the patient have a stroke diagnosis?: No
[2022-04-05] MEDS: Docusate Sodium 100 MG CAPSULE 200 MG PO (20:08)
[2022-04-05] MEDS: Atorvastatin Calcium 40 MG TABLET PO (20:08)
[2022-04-06] VITALS (23 sets, daily range): BP systolic 73–126; BP diastolic 38–66; PULSE 101–144; RESP 18–30; TEMP 34.9–37.4; O2SAT 88–98
--- NOTE | 2022-04-06 | ECG_ITS ---
Test Reason : CP Blood Pressure : / mmHG Vent. Rate : 102 BPM Atrial Rate : 000 BPM P-R Int : 000 ms QRS Dur : 092 ms QT Int : 412 ms P-R-T Axes : 000 -05 173 degrees QTc Int : 536 ms Accelerated Junctional rhythm Minimal voltage criteria for LVH, may be normal variant ( [place] product ) Possible Anterior infarct , age undetermined T wave abnormality, consider lateral ischemia Prolonged QT Abnormal ECG When compared to the previous EKG of No significant changes seen Referred By: Junior Delgado Electronically Signed By:KATIA MEAD MD
[2022-04-06] MEDS: Morphine Sulfate 2 MG/ML CARTRIDGE 1 MG IVPUSH (00:20)
[2022-04-06 00:53] LABS: B Type Natriuretic Peptide 1808 pg/mL (<100)
[2022-04-06 01:02] LABS: Anion Gap 16 (12-20); Blood Urea Nitrogen 73 mg/dL (9-16); Calcium 7.6 mg/dL (8.4-10.2); Carbon Dioxide 18 mmol/L (22-29); Chloride 105 mmol/L (96-108); Creatinine Clr Calc Pharmacy 10.5; Estimated Glomerular Filt Rate 9; Glucose Random 93 mg/dL (60-115); Potassium 4.5 mmol/L (3.3-5.1); Sodium 134 mmol/L (135-145)
[2022-04-06] MEDS: LORazepam 2 MG/ML VIAL 0.25 MG IVPUSH (03:19)
[2022-04-06 07:17] LABS: Hematocrit 27.8 % (37.0-47.0); Hemoglobin 8.7 g/dl (12.0-16.0); Mean Corpuscular HGB Conc 31.3 g/dl (31.0-35.0); Mean Corpuscular Hemoglobin 30.9 pg (27.0-33.0); Mean Corpuscular Volume 98.6 fL (80.0-98.0); Mean Platelet Volume 10.6 fL (9.4-12.3); Platelet Count 228 X10*3/uL (160-400); Red Blood Count 2.82 X10*6/uL (4.20-5.50); White Blood Count 13.1 X10*3/uL (4.8-10.8)
[2022-04-06 07:23] LABS: INTERNATIONAL NORM RATIO 2.6 (0.9-1.1); Prothrombin Time 30.1 SEC (9.9-13.0)
--- NOTE | 2022-04-06 07:36 | PC.NURSE ---
Patient noted to be in respiratory distress around midnight. Pt short of breath, stating she can't breath. Sats in the 70's, pt in high fowlers, O2 up to 5L (sats eventually up to 90%), RR 34. Dr. Villanueva notified and at bedside. Ordered BNP, BMP, CXR, 1mg IV morphine and breathing treatment. After about twenty minutes pt respiratory rate decreased and work of breath improved. PT noted to be sleeping on and off but would wake up very anxious. MD ordered 0.25mg IV ativan. Ativan administered with positive effect. PT resting more comfortably the rest of the shift.
[2022-04-06 07:43] LABS: Anion Gap 17 (12-20); Blood Urea Nitrogen 77 mg/dL (9-16); Calcium 7.9 mg/dL (8.4-10.2); Carbon Dioxide 20 mmol/L (22-29); Chloride 103 mmol/L (96-108); Creatinine Clr Calc Pharmacy 9.9; Estimated Glomerular Filt Rate 8; Glucose Fasting 79 mg/dL (60-99); Potassium 4.7 mmol/L (3.3-5.1); Sodium 135 mmol/L (135-145)
[2022-04-06] MEDS: Artificial Tears 15 ML DROPS 1 DROP EYE-BOTH ×3 (10:54→20:56)
[2022-04-06] MEDS: 0.9 % Sodium Chloride Flush 3 ML SYRINGE IVFLUSH ×2 (10:54→17:13)
[2022-04-06 11:11] LABS: ABG Base Excess -10.4 mmol/L; ABG HCO3 21 mmol/L (22-26); ABG pCO2 80 mmHg (32-45); ABG pH 7.02 (7.35-7.45); ABG pO2 189 mmHg (83-108)
--- NOTE | 2022-04-06 11:25 | P.PNIM_ITS ---
Subjective Subjective Date of Service: 04/06/22 Interval History: cc: sob interval history: unresponsive this morning Review of Systems Review of Systems: Yes Unobtainable due to mental condition Physical Exam Vital Signs: Vital Signs: Last Vital Signs Temp 97.5 F 04/06/22 07:44 Pulse 103 H 04/06/22 07:44 Resp 23 H 04/06/22 10:47 BP 126/66 04/06/22 07:44 Pulse Ox 97 04/06/22 07:44 BMI result Body Mass Index 20.2 General: eyes open, staring, frail, ill appearing, not talking Resp: diminished, no accessory muscles used CVS: S1,S2, rapid GI: soft, non tender, non distended Neuro: motor grossly intact, not responsive Psych: imapired insight anasracra Objective Data Active Medications Acetaminophen (Acetaminophen 325 Mg Tablet) 650 mg PO Q6H PRN PRN Reason: Pain, Mild (Pain Scale 1-3) Last Admin: 04/05/22 02:51 Dose: 650 mg Documented by: IDALIA Albuterol/Ipratropium (Albuterol/Iprat 2.5/0.5mg 3 Ml Ampul.Neb) 3 ml INHALE RQ4H PRN PRN Reason: Shortness of Breath/Wheezing Last Admin: 03/26/22 14:02 Dose: 3 ml Documented by: WICHO Artificial Tears (Artificial Tears 15 Ml Drops) 1 drop EYE-BOTH TID [facility] Last Admin: 04/06/22 10:54 Dose: 1 drop Documented by: RADHA Ascorbic Acid (Ascorbic Acid 500 Mg Tablet) 500 mg PO BID [facility] Last Admin: 04/06/22 10:55 Dose: Not Given Documented by: RADHA Non-Admin Reason: Patient Condition Contraindication Atorvastatin Calcium (Atorvastatin Calcium 40 Mg Tablet) 40 mg PO BEDTIME [facility] Last Admin: 04/05/22 20:08 Dose: 40 mg Documented by: HANANE Benzonatate (Benzonatate 100 Mg Capsule) 100 mg PO TID [facility] Last Admin: 04/06/22 10:55 Dose: Not Given Documented by: RADHA Non-Admin Reason: Patient Condition Contraindication Calcium Carbonate (Calcium Carbonate 500 Mg Tablet) 750 mg PO DAILY [facility] Last Admin: 04/06/22 10:55 Dose: Not Given Documented by: RADHA Non-Admin Reason: Patient Condition Contraindication Docusate Sodium (Docusate Sodium 100 Mg Capsule) 100 mg PO DAILY PRN PRN Reason: Constipation Last Admin: 03/27/22 08:18 Dose: 100 mg Documented by: LYSJacob Docusate Sodium (Docusate Sodium 100 Mg Capsule) 200 mg PO BEDTIME [facility] Last Admin: 04/05/22 20:08 Dose: 200 mg Documented by: HANANE Fluoxetine HCl (Fluoxetine Hcl 20 Mg Capsule) 40 mg PO DAILY [facility] Last Admin: 04/06/22 10:55 Dose: Not Given Documented by: RADHA Non-Admin Reason: Patient Condition Contraindication Furosemide (Furosemide 40 Mg/4 Ml Vial) 40 mg IVPUSH BID@0900,1800 [facility]; Protocol Guaifenesin (Guaifenesin 100 Mg/5 Ml Liquid) 5 ml PO Q6H PRN PRN Reason: Cough Last Admin: 04/05/22 02:51 Dose: 5 ml Documented by: IDALIA Guaifenesin (Guaifenesin La 600 Mg Tab.Er.12h) 600 mg PO BID [facility] Last Admin: 04/06/22 10:55 Dose: Not Given Documented by: RADHA Non-Admin Reason: Patient Condition Contraindication Levothyroxine Sodium 112 mcg/ (Levothyroxine Sodium 25 mcg) 137 mcg PO DAILY@0600 [facility] Last Admin: 04/06/22 06:33 Dose: Not Given Documented by: HANANE Non-Admin Reason: Patient Refused Midodrine (Midodrine Hcl 10 Mg Tablet) 10 mg PO TIDAC [facility] Last Admin: 04/06/22 09:48 Dose: Not Given Documented by: RADHA Non-Admin Reason: Elevated Blood Pressure Omeprazole (Omeprazole 20 Mg Capsule.Dr) 20 mg PO DAILY@0630 [facility] Last Admin: 04/06/22 06:33 Dose: Not Given Documented by: HANANE Non-Admin Reason: Patient Refused Oxybutynin Chloride (Oxybutynin Chloride Er 5 Mg Tab.Er.24) 10 mg PO DAILY [facility] Last Admin: 04/06/22 10:55 Dose: Not Given Documented by: RADHA Non-Admin Reason: Patient Condition Contraindication Pharmacy Consult (Consult Rx Perform Med Rec) 1 each MISCELLANE ONCE PRN PRN Reason: Consult order Sodium Chloride (0.9 % Sodium Chloride Flush 3 Ml Syringe) 3 ml IVFLUSH QSHIFT [facility] Last Admin: 04/06/22 10:54 Dose: 3 ml Documented by: RADHA Sodium Zirconium Cyclosilicate (Sodium Zirconium Cyclosilicate 5 Gm Powd.Pack) 5 gm PO DAILY [facility] Last Admin: 04/06/22 10:56 Dose: Not Given Documented by: RADHA Non-Admin Reason: Patient Refused Labs CBC & Chem 7: 04/06/22 06:39 04/06/22 06:39 Labs: Laboratory Results - last 24 hr 04/06/22 04/06/22 04/06/22 00:26 00:26 06:39 MCV 98.6 H MCH 30.9 MCHC 31.3 RDW 18.0 H Plt Count 228 D MPV 10.6 Absolute Nucleated RBC 0.000 Nucleated RBC % (auto) 0.0 PT INR O2 Saturation ABG pH at Pt Temp ABG pCO2 at Pt Temp ABG pO2 at Pt Temp ABG HCO3 ABG Base Excess (Actual) Anion Gap 16 Estim Creat Clear Calc 10.5 Estimated GFR 9 Random Glucose 93 Fasting Glucose Calcium 7.6 L D B-Natriuretic Peptide 1808 H 04/06/22 04/06/22 04/06/22 06:39 06:39 11:03 MCV MCH MCHC RDW Plt Count MPV Absolute Nucleated RBC Nucleated RBC % (auto) PT 30.1 H INR 2.6 H O2 Saturation 99.0 ABG pH at Pt Temp 7.02 L* ABG pCO2 at Pt Temp 80 H* ABG pO2 at Pt Temp 189 H ABG HCO3 21 L ABG Base Excess (Actual) -10.4 Anion Gap 17 Estim Creat Clear Calc 9.9 Estimated GFR 8 Random Glucose Fasting Glucose 79 Calcium 7.9 L B-Natriuretic Peptide Microbiology Microbiology Results: Microbiology 04/03/22 11:30 Gram Stain - Final Thoracentesis Fluid Anaerobic Culture - Preliminary No growth to date. Body Fluid Culture - Final No growth after 2 days Assessment and Plan (1) Pleural effusion: Status: Acute (2) Hypotension: Status: Acute (3) Acute kidney failure: Status: Acute (4) Acute on chronic heart failure with reduced ejection fraction and diastolic dysfunction: Status: Acute Plan 71 year old female with history of severe cardiomyopathy with EF 15-20% s/p AICD/PM, chronic atrial fibrillation, [place] mechanical mitral valve on [place], CKD, hypothyroidism, HLD, HTN, CAD, amyloidosis who presented to the ED with shortness of breath found to be in heart failure., now complicated by hematuria AM 04/06 eyes were open, but unresponsive, ABG with respiratory acidosis Acute on chronic HFrEF large Pleural effusion right holding Isodril for hypotension hold low-dose Coreg for hypotension last BNP improved to almost 900 s/p right thoracentesis 04/03 with 1.2L removed monitor I\O carmen on CKD 4, likely ATN Creatinine worse with anuria s/p temporary catheter 04/04/22 had HD 04/05 with 1L removed will need permacath eventually so will continue to hold coumadin acute on chronic hypoxix and hypercapneic resp failure with metabolic ecnephalopathy will transfer to ICU eligio confirmed full code History of mechanical mitral valve Coumadin on hold for procedures Acute blood loss anemia secondary to hematuria received total of 7 units stable Hb around 7-8 s/p cysto, fulguration (see report) monitor PTT, PT INR monitor cbc, any bleeding Urology input appreciated, Armenta needs to stay in place for total of 2 weeks, to follow with Urology as outpatient Elevated troponin no chest pain, EKG with no significant change from previous trops chronically elevated, likely part due to decreased clearance from CKD physical deconditioning PT recommended STR vs home with VNA and 24 hour supervision Hyperkalemia resolved daily lokelma, monitor thrombocytopenia chronic hypothyroidism? Continue home levothyroxine hypotension isodril, coreg on hold midodrine hyperlipidemia? Continue statin mood continue fluoxetine DVT prophylaxis Heparin reason for continued hospitalization: critically ill Quality Stroke Does the patient have a stroke diagnosis?: No VTE Prior VTE?: No VTE Risk Level:: Medical - moderate - high VTE Device Contraindication: N/A - Device Ordered VTE Drug Contraindication: N/A - Med Ordered
[2022-04-06 11:33] LABS: Albumin Level 2.3 g/dL (3.5-5.0)
[2022-04-06] MEDS: Sodium Bicarbonate 8.4% 50 MEQ/50 ML SYRINGE 150 MEQ IVPUSH (12:45)
[2022-04-06] MEDS: Ketamine HCl/NS 50 MG/5 ML SYRINGE 100 MG IVPUSH (12:45)
[2022-04-06] MEDS: propofoL 1,000 MG/100 ML VIAL 7.45 MG IVCONT (13:00)
--- NOTE | 2022-04-06 13:20 | W.PM.CCHP ---
Procedures Date of Service Date of Service: 04/06/22 Intubation Intubation Comments: Patient with hypercapnia and hypoxia refractory to BiPAP support emergently intubated with 7.5 cuffed ET tube under glide scope guidance with no immediate complications. ET tube position verified on chest x-ray. Consent for Procedure: Emergent-no informed consent obtained
--- NOTE | 2022-04-06 13:22 | W.PM.CCHP ---
Procedures Date of Service Date of Service: 04/06/22 Thoracentesis Thoracentesis Comments: Right sided therapeutic thoracentesis performed in the right mid axillary line under ultrasound guidance with drainage of 800 cc of serosanguineous fluid with improvement in the size of right-sided pleural effusion and no pneumothorax on follow-up chest x-ray. Consent for Procedure: Elective - informed consent obtained Indication: right-sided pleural effusion Procedure: therapeutic thoracentesis
[2022-04-06 13:24] LABS: VBG Base Excess -4.3 mmol/L; VBG HCO3 25 mmol/L (22-26); VBG pCO2 70 mmHg; VBG pH 7.15 (7.32-7.43); VBG pO2 30 mmHg
--- NOTE | 2022-04-06 13:28 | P.PNCC_ITS ---
Subjective Subjective Date of Service: 04/06/22 Interval History: ICU day 1 for acute hypercapnic respiratory failure, congestive heart failure, end-stage renal disease. 71-year-old lady with underlying history of severe cardiomyopathy with biventricular reduced function with left-sided EF of 15-20% and diastolic dysfunction, status post AICD placement, chronic AFib, status post mitral valve replacement with mechanical valve, on chronic anticoagulation with Coumadin, CKD, hypothyroidism, hypertension, CAD, amyloidosis admitted on 03/15/2022 with dyspnea secondary to heart failure exacerbation with hospital course complicated by urinary retention with traumatic wilson placement resulting in hematuria requiring cystoscopy for bleeding control, also development of right-sided pleu ral effusion status post therapeutic thoracentesis with removal of 1.2 L on 04/03, progressive renal failure initiated on hemodialysis on 04/05/2022 who for the last 24 hours developed worsening lethargy and hypoxia. Patient was initially placed on BiPAP, her chest x-ray demonstrated reaccumulation of right- sided pleural effusion and ABG shows significant respiratory acidosis. Patient was transferred to intensive care unit, where urgent thoracenteses under right- side was performed with removal of 800 cc of serosanguineous fluid, but still patient remain is significant respiratory distress with, at that time intubated, with aspirate secretions noted on intubation. Patient was placed on ventilatory support with improvement in her gas exchange (initial VBG after intubation incorrect secondary to aspiration of a hematoma from prior blood gas draw) and hemodynamics. Critical Care Time (minutes): 90 Physical Exam Vital Signs: Vital Signs: Last Vital Signs Temp 97.5 F 04/06/22 07:44 Pulse 140 H 04/06/22 12:40 Resp 26 H 04/06/22 12:00 BP 75/43 L 04/06/22 12:40 Pulse Ox 92 04/06/22 12:00 BMI result Body Mass Index 20.2 Const: General: no acute distress and other ( sedated on the vent) Eyes: Sclerae: sclerae normal EOM: EOMs intact bilaterally Neck: Neck: Yes no lymphadenopathy, Yes trachea midline and Yes supple Resp: Auscultation: clear to auscultation bilaterally Cardio: Rate: tachycardic Rhythm: abnormal rhythm irregularly irregular Heart sounds: no gallops, no murmurs and no rubs GI: Palpation (GI): Soft to palpation and Other GI palpation findings present ( Nontender) Auscultation: normal bowel sounds Extrem: General: Yes no pedal edema, No clubbing and No cyanosis Objective Data Labs CBC & Chem 7: 04/06/22 06:39 04/06/22 06:39 Labs: Laboratory Results - last 24 hr 04/06/22 04/06/22 04/06/22 00:26 00:26 06:39 WBC 13.1 H RBC 2.82 L Hgb 8.7 L Hct 27.8 L MCV 98.6 H MCH 30.9 MCHC 31.3 RDW 18.0 H Plt Count 228 D MPV 10.6 Absolute Nucleated RBC 0.000 Nucleated RBC % (auto) 0.0 PT INR O2 Saturation ABG pH at Pt Temp ABG pCO2 at Pt Temp ABG pO2 at Pt Temp ABG HCO3 ABG Base Excess (Actual) VBG pH VBG pCO2 VBG pO2 VBG HCO3 VBG O2 Saturation VBG Base Excess Sodium 134 L Potassium 4.5 Chloride 105 Carbon Dioxide 18 L Anion Gap 16 BUN 73 H Creatinine 4.89 H* Estim Creat Clear Calc 10.5 Estimated GFR 9 Random Glucose 93 Fasting Glucose Calcium 7.6 L D B-Natriuretic Peptide 1808 H Albumin 04/06/22 04/06/22 04/06/22 06:39 06:39 11:03 WBC RBC Hgb Hct MCV MCH MCHC RDW Plt Count MPV Absolute Nucleated RBC Nucleated RBC % (auto) PT 30.1 H INR 2.6 H O2 Saturation 99.0 ABG pH at Pt Temp 7.02 L* ABG pCO2 at Pt Temp 80 H* ABG pO2 at Pt Temp 189 H ABG HCO3 21 L ABG Base Excess (Actual) -10.4 VBG pH VBG pCO2 VBG pO2 VBG HCO3 VBG O2 Saturation VBG Base Excess Sodium 135 Potassium 4.7 Chloride 103 Carbon Dioxide 20 L Anion Gap 17 BUN 77 H Creatinine 5.12 H* Estim Creat Clear Calc 9.9 Estimated GFR 8 Random Glucose Fasting Glucose 79 Calcium 7.9 L B-Natriuretic Peptide Albumin 2.3 L D 04/06/22 13:15 WBC RBC Hgb Hct MCV MCH MCHC RDW Plt Count MPV Absolute Nucleated RBC Nucleated RBC % (auto) PT INR O2 Saturation ABG pH at Pt Temp ABG pCO2 at Pt Temp ABG pO2 at Pt Temp ABG HCO3 ABG Base Excess (Actual) VBG pH 7.15 L* VBG pCO2 70 VBG pO2 30 VBG HCO3 25 VBG O2 Saturation 42.0 VBG Base Excess -4.3 Sodium Potassium Chloride Carbon Dioxide Anion Gap BUN Creatinine Estim Creat Clear Calc Estimated GFR Random Glucose Fasting Glucose Calcium B-Natriuretic Peptide Albumin Microbiology Microbiology Results: Microbiology 04/03/22 11:30 Thoracentesis Fluid Gram Stain - Final 04/03/22 11:30 Thoracentesis Fluid Anaerobic Culture - Preliminary No growth to date. 04/03/22 11:30 Thoracentesis Fluid Body Fluid Culture - Final No growth after 2 days Progress Note: A&P Assessment and plan (1) CKD (chronic kidney disease) stage 5, GFR less than 15 ml/min: Status: Acute (2) Pleural effusion: Status: Acute (3) Hypotension: Status: Acute (4) Acute kidney failure: Status: Acute (5) Gross hematuria: Status: Acute (6) Acute on chronic heart failure with reduced ejection fraction and diastolic dysfunction: Status: Acute (7) H/O mitral valve replacement: Status: Acute (8) ICD (implantable cardioverter-defibrillator) in place: Status: Acute (9) Acute respiratory failure: Status: Acute (10) Chronic atrial fibrillation: Status: Acute Plan Assessment: 71-year-old lady with multiple medical issues including severe cardiomyopathy, anticoagulated for mechanical mitral valve, end-stage renal dis ease recently initiated on hemodialysis admitted with heart failure exacerbation transferred to intensive care requiring intubation acute respiratory failure secondary to combination recurrent pleural effusion edema, pulmonary aspirations of of secretions Plan: Neuro: Acute metabolic encephalopathy secondary to hypercapnia, expect to improve with resolution of hypercapnia. Cardiac: Acute on chronic combined biventricular systolic and diastolic congestive heart failure exacerbation with pulmonary edema. Expect to improve with ultrafiltration. Underlying history of replacement of mitral valve with a mechanical prosthetic. Continues on anticoagulation. Pulmonary: Acute hypoxic and hypercapnic respiratory failure secondary to a combination of pulmonary edema, pulmonary aspiration, recurrent right-sided pleural effusion, now requiring ventilatory support. Continue to titrate off v entilatory support as tolerated. Thoracentesis today with removal of 800 cc of fluid. Renal: essentially end-stage renal disease at this recent initiated on hemodialysis. Nephrology service care appreciated. Endo: No acute issues. GI: No acute issues. ID: No acute issues Heme/Onc: INR target of 2.5-3.5 for underlying mechanical mitral valve. Continue with INR checks. Recent episode of hematuria requiring cystoscopy for bleeding control. Psych: No acute issues. Miscellaneous: No acute issues. Prophylaxis: INR elevated, famotidine Diet: NPO Critical care time spent: 90 minutes Quality Stroke Does the patient have a stroke diagnosis?: No VTE Prior VTE?: No VTE Risk Level:: Medical - moderate - high VTE Device Contraindication: N/A - Device Ordered VTE Drug Contraindication: N/A - Med Ordered
[2022-04-06 13:33] LABS: VBG HCO3 22 mmol/L (22-26); VBG pCO2 42 mmHg; VBG pH 7.33 (7.32-7.43); VBG pO2 38 mmHg
[2022-04-06 13:48] LABS: Venous Blood Gas Refer to POC result
[2022-04-06 13:48] LABS: Venous Blood Gas Refer to POC result
--- NOTE | 2022-04-06 13:49 | PC.RT ---
Called to bedside by RN at 10:25am that patient was desatting. Upon arrival, pt. on oxymizer at 4L with SpO2 of 86%. increased flow to maximum of 15L on oxymask without improvement. Assessment of patient showed increased work of breathing, tachycardia, tachypnea, coarse crackles throughout when auscultated. Patient in respiratory distress, placed on bipap with improved oxygenation and decreased work of breathing. MD at bedside, ICU consult obtained.
[2022-04-06] MEDS: fentaNYL citrate/NS 1,000 MCG/100 ML PLAST..BAG 5 MCG IVCONT (14:06)
[2022-04-06] MEDS: dilTIAZem HCL 50 MG/10 ML VIAL 10 MG IVPUSH (14:10)
[2022-04-06] MEDS: dilTIAZem HCL 125 MG in 0.9 % Sodium Chloride 100 ML IVCONT (14:35)
--- NOTE | 2022-04-06 14:50 | PM.PNNEP ---
Subjective Subjective Date of Service: 04/06/22 Principal diagnosis: acute on chronic CHF, hematuria, mechanical Mitral valve Interval history: Seen and examined events noted Increase SOB and going to be xferred to ICU Physical Exam Vital Signs: Vital Signs: Last Vital Signs Temp 97.5 F 04/06/22 07:44 Pulse 141 H 04/06/22 14:00 Resp 20 04/06/22 14:00 BP 116/63 04/06/22 14:00 Pulse Ox 89 L 04/06/22 14:00 BMI result Body Mass Index 20.2 Const: General: cooperative, no acute distress and tired appearing Orientation/consciousness: patient oriented x3 HEENT: Head: Yes normal to inspection, Yes normocephalic and Yes atraumatic Eyes: EOM: EOMs intact bilaterally Neck: Neck: Yes supple and Yes no JVD Resp: Auscultation: clear to auscultation bilaterally, crackles and diminished lung sounds Cardio: Jugular venous distension: no JVD Rate: regular rate Rhythm: regular rhythm Heart sounds: S1 normal heart sound present and S2 normal heart sound present GI: Palpation (GI): Soft to palpation Auscultation: normal bowel sounds Skin: Lesions: no lesions Neuro: General: patient oriented x3, moves all extremities and no focal motor deficits Extrem: General: Yes no clubbing, cyanosis or edema Objective Data Labs CBC & Chem 7: 04/06/22 06:39 04/06/22 06:39 Labs: Laboratory Results - last 24 hr 04/06/22 04/06/22 04/06/22 00:26 00:26 06:39 WBC 13.1 H RBC 2.82 L Hgb 8.7 L Hct 27.8 L MCV 98.6 H MCH 30.9 MCHC 31.3 RDW 18.0 H Plt Count 228 D MPV 10.6 Absolute Nucleated RBC 0.000 Nucleated RBC % (auto) 0.0 PT INR O2 Saturation ABG pH at Pt Temp ABG pCO2 at Pt Temp ABG pO2 at Pt Temp ABG HCO3 ABG Base Excess (Actual) VBG pH VBG pCO2 VBG pO2 VBG HCO3 VBG O2 Saturation VBG Base Excess Sodium 134 L Potassium 4.5 Chloride 105 Carbon Dioxide 18 L Anion Gap 16 BUN 73 H Creatinine 4.89 H* Estim Creat Clear Calc 10.5 Estimated GFR 9 Random Glucose 93 Fasting Glucose Calcium 7.6 L D B-Natriuretic Peptide 1808 H Albumin 04/06/22 04/06/22 04/06/22 06:39 06:39 11:03 WBC RBC Hgb Hct MCV MCH MCHC RDW Plt Count MPV Absolute Nucleated RBC Nucleated RBC % (auto) PT 30.1 H INR 2.6 H O2 Saturation 99.0 ABG pH at Pt Temp 7.02 L* ABG pCO2 at Pt Temp 80 H* ABG pO2 at Pt Temp 189 H ABG HCO3 21 L ABG Base Excess (Actual) -10.4 VBG pH VBG pCO2 VBG pO2 VBG HCO3 VBG O2 Saturation VBG Base Excess Sodium 135 Potassium 4.7 Chloride 103 Carbon Dioxide 20 L Anion Gap 17 BUN 77 H Creatinine 5.12 H* Estim Creat Clear Calc 9.9 Estimated GFR 8 Random Glucose Fasting Glucose 79 Calcium 7.9 L B-Natriuretic Peptide Albumin 2.3 L D 04/06/22 04/06/22 13:15 13:24 WBC RBC Hgb Hct MCV MCH MCHC RDW Plt Count MPV Absolute Nucleated RBC Nucleated RBC % (auto) PT INR O2 Saturation ABG pH at Pt Temp ABG pCO2 at Pt Temp ABG pO2 at Pt Temp ABG HCO3 ABG Base Excess (Actual) VBG pH 7.15 L* 7.33 VBG pCO2 70 42 VBG pO2 30 38 VBG HCO3 25 22 VBG O2 Saturation 42.0 67.0 VBG Base Excess -4.3 -3.0 Sodium Potassium Chloride Carbon Dioxide Anion Gap BUN Creatinine Estim Creat Clear Calc Estimated GFR Random Glucose Fasting Glucose Calcium B-Natriuretic Peptide Albumin Microbiology Microbiology Results: Microbiology 04/03/22 11:30 Thoracentesis Fluid Gram Stain - Final 04/03/22 11:30 Thoracentesis Fluid Anaerobic Culture - Preliminary No growth to date. 04/03/22 11:30 Thoracentesis Fluid Body Fluid Culture - Final No growth after 2 days Procedures Date of Service Date of Service: 04/06/22 Assessment & Plan Assessment and plan (1) CKD (chronic kidney disease) stage 5, GFR less than 15 ml/min: Status: Acute Plan 1.ALIZA on adv CKD now prog to ESRD and HD started 04/05 2. CKD 4/5: BSL SCr 2.5-3.5 3. Anemia 4.MBD of CKD 5. SOB critically ill REC: emergent UF this am to see if this helps her brething ( d/w Hosp doc and ICU doc) Time Spent With Patient Time: Total time spent is greater than 50% in coordination of care (as documented) at patient's floor/unit and/or counseling patient: Progress Note: Quality Stroke Does the patient have a stroke diagnosis?: No
[2022-04-06] MEDS: Chlorhexidine Gluc Oral Rinse 15 ML MOUTHWASH BUCCAL ×2 (15:34→20:56)
[2022-04-06] MEDS: Piperacillin Sodium/Tazobactam 2.25 GM in 0.9 % Sodium Chloride 50 ML IV (17:08)
[2022-04-06] MEDS: propofoL 1,000 MG/100 ML VIAL 14.9 MG IVCONT (17:13)
[2022-04-06] MEDS: dilTIAZem HCL 125 MG in 0.9 % Sodium Chloride 100 ML 10 MG IVCONT (21:13)
[2022-04-07] VITALS (37 sets, daily range): BP systolic 74–141; BP diastolic 41–70; PULSE 84–116; RESP 18–28; TEMP 34.6–38.1; O2SAT 94–98; BMI 20.2
[2022-04-07] MEDS: propofoL 1,000 MG/100 ML VIAL 14.9 MG IVCONT ×3 (00:02→12:37)
--- NOTE | 2022-04-07 01:02 | PC.NURSE ---
Assumed care about 12:35, as [place] [facility] [place] was requiring bipap on floor, and was somnolent, nonverbal. Patient was transfered to ICU on bipap, and thoracentesis done by provider, drained 800 ccs of serosanguinous fluid. Patient with low BP 70's/40's on arrival, started Levophed via HD catheter venous port per MD. Patient BP improved on 0.6 mcg/kg/min levophed. BP improved, but patient was somnolent, responded to pain all four extremities. Patient was then intubated by provider with #7.5 ETT 23 cm at the lip, AC settings 18; 350; 5; 40%--minute volumes about 8-9; RR was initially 35-40, but after intubation and sedation, her RR was then synchronous at 20 RR, later in evening RR 25. Patient with foamy pink secretions to ETT. SpO2 95% on 40%, unlabored on vent. Patient with bounding hyperresonant heart sounds. S1,S2. Initially arrived with HR 853=798, appeared to be a-fib, Diltiazem 10 mg administered IVP, with excellent response to drop HR to 130, but then returned to 144 HR, Dilt gtt started and uptitirated to 15 with good effect, titrated down to 7.5 and well toleratd, HR around 90-105 now, and appeared to be accelerated junctional now. EKG this evening per provider with accelerated junctional and V2-V3 T-wave abnormality ? ST evevation V3 reviewed EKGs with provider, looks like improvement. Patient with apparent severe protein malnutrition and muscle wasting, daughter reported severe malnutrition for over a week, discussed possible re-feeding syndrome with provider. Patient with OGT placed and CXR was showing need for advancemnet, reviewed by provider. patient appears to have pneumothorax per provider, MD has been contacted and is en-route to place Chest tube now. Patient appears comfortable on 40 propofol and 50 fentanyl and is breathing comfortably on the vent. Left eye is prosthesis per daughter, Yeny. Nursing and PA plan to notify Yeny. Patient did make some urine with sediment: 25 ccs total. Armenta was flushed for patency.
[2022-04-07] MEDS: Piperacillin Sodium/Tazobactam 2.25 GM in 0.9 % Sodium Chloride 50 ML IV ×3 (01:38→15:25)
[2022-04-07] MEDS: 0.9 % Sodium Chloride Flush 3 ML SYRINGE IVFLUSH ×3 (01:38→14:30)
--- NOTE | 2022-04-07 03:22 | W.PM.CCHP ---
Procedures Date of Service Date of Service: 04/07/22 Chest Tube Chest Tube 1: Chest tube location: Mid-Axillary Chest Size of tube: 14 Tube sutured to skin: Yes Post procedure: sutured to skin and sterile dressing applied Prado of air heard: Yes Tube Drainage: fluid Amount of initial drainage (ml): 50 Patient tolerated procedure: Yes Complications: tube not draining Progress: Right mid axillary line chest tube emergently placed under usual sterile conditions for developed moderate sized pneumothorax with prado of air heard upon entrance of the chest cavity and initial air evacuation. Post-procedure X-ray with no significant change in the pneumothorax. Pigtail placement in the area of pneumothorax on the follow up chect CT with additional air evacuated thereafter.
[2022-04-07] MEDS: fentaNYL citrate/NS 1,000 MCG/100 ML PLAST..BAG 5 MCG IVCONT (03:30)
[2022-04-07 05:23] LABS: VBG Base Excess -4.7 mmol/L; VBG HCO3 16 mmol/L (22-26); VBG pCO2 21 mmHg; VBG pH 7.49 (7.32-7.43); VBG pO2 61 mmHg
[2022-04-07 05:56] LABS: Hematocrit 26.5 % (37.0-47.0); Hemoglobin 8.8 g/dl (12.0-16.0); Mean Corpuscular HGB Conc 33.2 g/dl (31.0-35.0); Mean Corpuscular Hemoglobin 30.8 pg (27.0-33.0); Mean Corpuscular Volume 92.7 fL (80.0-98.0); Mean Platelet Volume 11.2 fL (9.4-12.3); NRBC Pct Auto 0.1 /100WBC (0.0-0.2); Platelet Count 229 X10*3/uL (160-400); Red Blood Count 2.86 X10*6/uL (4.20-5.50); Red Cell Distribution Width 17.9 % (11.0-16.0); WBC ABN SCTR FOR CBC 1
[2022-04-07 05:58] LABS: White Blood Count 25.3 X10*3/uL (4.8-10.8)
[2022-04-07 06:00] LABS: Venous Blood Gas Refer to POC result
[2022-04-07 06:21] LABS: Alanine Aminotransferase 14 U/L (0-31); Alkaline Phosphatase 157 U/L (39-117); Anion Gap 25 (12-20); Aspartate Amino Transferase 17 U/L (5-31); Band Neutrophils Percent 21 % (3-5); Bilirubin Total 0.8 mg/dL (0.0-1.0); Blood Urea Nitrogen 84 mg/dL (9-16); Calcium 7.3 mg/dL (8.4-10.2); Carbon Dioxide 17 mmol/L (22-29); Chloride 102 mmol/L (96-108); Creatinine Clr Calc Pharmacy 9.1; Estimated Glomerular Filt Rate 7; Glucose Random 50 mg/dL (60-115); Lymphocytes Absolute Manual 0.3 X10*3/uL (1.2-4.9); Lymphocytes Percent Manual 1 % (20-40); Magnesium 2.1 mg/dL (1.6-2.6); Monocytes Absolute Manual 0.3 X10*3/uL (0.1-1.2); Monocytes Percent Manual 1 % (2-11); Neutrophils Absolute Manual 24.8 X10*3/uL (2.0-8.3); Neutrophils Percent Manual 77 % (45-73); Nucleated Red Blood Cells 1 /100WBC (0-0); Phosphorus 6.7 mg/dL (2.7-4.5); Potassium 4.7 mmol/L (3.3-5.1); Sodium 139 mmol/L (135-145); Total Protein 5.8 g/dL (6.5-8.0)
[2022-04-07 06:23] LABS: Acanthocytes 2+ (3-5) /OIF; Platelet Estimate NORMAL (NORMAL); Platelet Morphology Comment NORMAL; RBC Morphology NOTED; Spherocytes 1+ (0-2) /OIF
[2022-04-07 06:24] LABS: Schistocytes 1+ (0-2) /OIF
[2022-04-07 06:25] LABS: Basophilic Stippling 1+ (0-2) /OIF
[2022-04-07] MEDS: Levothyroxine Sodium 112 MCG, Levothyroxine Sodium 25 MCG 137 MCG PO (06:28)
[2022-04-07 06:42] LABS: INTERNATIONAL NORM RATIO 2.6 (0.9-1.1); Prothrombin Time 29.6 SEC (9.9-13.0)
[2022-04-07 06:44] LABS: Lipase 21 U/L (8-78)
[2022-04-07 06:49] LABS: Glucose, Whole Blood 158 mg/dL (60-115)
[2022-04-07 07:22] LABS: Glucose, Whole Blood 125 mg/dL (60-115)
[2022-04-07] MEDS: Famotidine/PF 20 MG/2 ML VIAL IVPUSH (08:12)
[2022-04-07] MEDS: Chlorhexidine Gluc Oral Rinse 15 ML MOUTHWASH BUCCAL ×3 (08:12→20:09)
[2022-04-07] MEDS: Artificial Tears 15 ML DROPS 1 DROP EYE-BOTH ×3 (10:23→20:09)
[2022-04-07] MEDS: dilTIAZem HCL 30 MG TABLET OG-TUBE ×2 (12:55→20:09)
--- NOTE | 2022-04-07 12:57 | P.PNCC_ITS ---
Subjective Subjective Date of Service: 04/07/22 Interval History: Mrs. Dooley was transferred to the ICU yesterday bec of hypercapnic and hypoxemic resp failure failed BiPAP and required emergent tracheal intubation. 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 ECHO 08/2021 showed:? Severely dilated CMOP.? Normal LV wall thickness. ?LV systolic function severely decreased, EF15-20%. ?Mildly increased RV cavity size w mild-moderately decreased function.? Normal mechanical prosthetic MV fxn.? Severe biatrial enlargement.? Mod-severe TR with dilated, poorly collapsing IVC, RVSP 49mm. I spoke to her daughter Yeny today at length at the bedside (cell [phone]) .? Mrs. Garza moved in w her daughter and the daughter?s this past July she needed more care.? Yeny works as her mother?s care manager cna, and is the HCP.? Mrs. Garza walks w a walker.? She gets out of the house a few days a week.? Yeny helps her bathe and dress.? She was independent with eating and toileting.? The patient considered her quality of life to be satisfactory.? Yeny told me that the patient had had discussions with her kidney doctor in regards to the fact that dialysis was likely coming in the future. ?She filled out a MOLST form in 09/2021 designating full support. HISTORY OF PRESENT ILLNESS: ?The patient was admitted to [facility] 03/15/2022 with d yspnea secondary to heart failure exacerbation.? Hospital course was complicated by urinary retention with traumatic wilson placement resulting in hematuria requiring transfusion of total 9 units RBCs, culminating in cystoscopy w fulgaration for bleeding control on 03/24; development of right-sided pleural effusion, s/p therapeutic thoracentesis 1.2 L on April 03; and progressive renal failure initiated on hemodialysis on 04/05/2022 via Left IJ temp dialysis catheter (instead of permcath bec of elevated INR) Yesterday, the patient developed lethargy, hypoxemia and for hypercarbia.? She was put on BiPAP and transferred to ICU.? CXR showed reaccumulation of right- sided pleural effusion and new infiltrates on the left, thought secondary to aspiration.? Right thoracenteses removed 800 cc of serosanguineous fluid, but without improvement in her respiratory status.? Therefore the patient was intubated. ?Of note, during the thoracentesis, the patient had a 13 second run of VT (at a rate of 137/min) that self-terminated without a shock from her device.? The patient was also started on Zosyn for empiric pulmonary aspiration coverage. The post-intubation CXR reading missed a right basilar pneumothorax, which was u 235ndetected until a film done later that night after OGT placement showed a large tension PTX.? A pigtail drainage catheter was placed which, after repositioning, drained the entire hydropneumothorax.? The patient was not dialyzed yesterday because of hemodynamic instability. Currently the patient is sedated on propofol 40ug, and fentanyl 50ug.? The patient is unresponsive.? Even turning the propofol down to 20 mcg, she is unresponsive.? We turned her propofol off and we?ll see what happens.? Heart rate is 85, in chronic atrial fibrillation, on diltiazem at 7.5 mg/hour.? Blood pressure is 105/58 on Levophed 0.2ug.? On assist control /30%/+5, RR 23, Ve 8L, PIP 26cm, ETCO2 20mm, Sat 97%.? This morning's CVBG showed 7.49/21/-4.? T-max was a single temperature of 100.5? early this morning, otherwise she has been afebrile for her entire hospital course.? Obvious prosthetic left eye.? No JVD at 20-30?. ?Chest CTA.? Unable to hear heart tones, other than the very soft click of her MV.? Abdomen is flat and benign.? Trace edema. The patient has an approx. 1 x 2 inch pupuric unstageable DTI on her coccyx. My bedside ECHOCARDIOGRAM for hemodynamic monitoring:? Image quality fair-good.? Findings: 1. Normal LV wall thickness 2. LV is at least mildly dilated with severe systolic dysfunction, and marked regional wall motion abnormalities.? The septum and apex are akinetic.? Overall EF 10-15% maximum. 3. RV size looks normal to me 4. 2-3 + TR by color-flow.? CWD signal measured 2.5 m/s.? Gradient 25mm. 5. IVC measured 2.4 cm, with minimal inspiratory collapse.? Estimated CVP 15 mm.? Estimated RVSP 40mm. LABORATORY DATA:? Below.? Notably, WBC up to 25, PT 29/2.6 after Coumadin 1mg last night.? BUN/creatinine up to 84/5.6, with bicarb down to 17, potassium stable at 4.7.? Last BNP was up to 1808 yesterday.? Albumin 2.0. IMPRESSION: 1. Underlying severe dilated biventricular CMOP 2. Underlying CAD w echo evidence of previous [place] 3. Mechanical prosthetic MV.? Needs anticoagulation.? Will hold Coumadin from here, switch to Lovenox after tomorrow?s INR. 4. Underlying Chronic afib.? Controlled now w ditiazem gtt.? Switch to orals, taper off the drip. 5. Underlying hypothyroidism.? Continue thyroid. 6. Acute hypercarbic & hypoxemic resp failure.? 2? exac of chronic systolic heart failure.? She?s volume overloaded now.? Will have to dialyze it off. 7. Hypotension.? Most likely 2? combination of severe CMOP and acute renal failure.? We?ll check a lactate and cultures to rule out sepsis.? We?ll start her on midodrine. 8. Acute on chronic renal failure.? Was likely secondary to ATN.? There is a good chance that she will require permanent hemodialysis henceforth, if she survives.? The daughter is aware.? No need for acute HD today.? Given that she is fluid overloaded, we?ll try a dose of Bumex with Diruil today. 9. ID. ?New left lung infiltrates.? Most likely 2? aspiration pneumonia.? Check sputum culture.? Continue Zosyn. 10. ? ICD failure yesterday.? Will d/w cardiology tomorrow. 11. Right-sided pneumothorax.? Recheck CXR tomorrow. 12. Nutrition:? At least moderate, if not severe PCM.? Could be cardiac cachexia.? Will have a substantial impact on her survivability.? Start Nepro today. 13. Poor IV access:? Consider changing her double lumen dialysis catheter to a triple lumen catheter. Daughter Yeny cell phone:? [phone]. Prognosis is grave.? Likelihood of surviving this hospitalization is prob no better than 50:50.? One year mortality from here approaches 90%. Critical Care Time (including extensive medical record review, review of all roentgenograms, extended d/w Dr. Lopez and Dr. Hua, and hosp course summary: ?2.5+ hrs. Critical Care Time (minutes): 150 Physical Exam Vital Signs: Vital Signs: Last Vital Signs Temp 98.8 F 04/07/22 11:40 Pulse 97 04/07/22 11:40 Resp 18 04/07/22 11:40 BP 115/58 L 04/07/22 11:40 Pulse Ox 98 04/07/22 11:40 BMI result Body Mass Index 20.2 Objective Data Labs CBC & Chem 7: 04/07/22 05:15 04/07/22 05:15 Labs: Laboratory Results - last 24 hr 04/06/22 04/06/22 04/07/22 13:15 13:24 05:14 WBC RBC Hgb Hct MCV MCH MCHC RDW Plt Count MPV Immature Gran % (Auto) Neut % (Auto) Lymph % (Auto) [place] % (Auto) Eos % (Auto) Baso % (Auto) Lymph # (Auto) [place] # (Auto) Eos # (Auto) Baso # (Auto) Abs Immat Gran (auto) Absolute Neuts (auto) Absolute Nucleated RBC Nucleated RBC % (auto) Neutrophils % (Manual) Band Neutrophils % Lymphocytes % (Manual) Monocytes % (Manual) Abs Neuts (Manual) Lymphocytes # (Manual) Monocytes # (Manual) Nucleated RBCs Platelet Estimate Plt Morphology Comment RBC Morphology Basophilic Stippling Spherocytes Acanthocytes (Spur) Schistocytes PT INR VBG pH 7.15 L* 7.33 7.49 H VBG pCO2 70 42 21 VBG pO2 30 38 61 VBG HCO3 25 22 16 L VBG O2 Saturation 42.0 67.0 90.0 VBG Base Excess -4.3 -3.0 -4.7 Sodium Potassium Chloride Carbon Dioxide Anion Gap BUN Creatinine Estim Creat Clear Calc Estimated GFR POC Glucose Random Glucose Calcium Phosphorus Magnesium Total Bilirubin AST ALT Alkaline Phosphatase Total Protein Albumin Lipase 04/07/22 04/07/22 04/07/22 05:15 05:15 05:15 WBC 25.3 H RBC 2.86 L Hgb 8.8 L Hct 26.5 L MCV 92.7 D MCH 30.8 MCHC 33.2 RDW 17.9 H Plt Count 229 MPV 11.2 Immature Gran % (Auto) Cancelled Neut % (Auto) Cancelled Lymph % (Auto) Cancelled [place] % (Auto) Cancelled Eos % (Auto) Cancelled Baso % (Auto) Cancelled Lymph # (Auto) Cancelled [place] # (Auto) Cancelled Eos # (Auto) Cancelled Baso # (Auto) Cancelled Abs Immat Gran (auto) Cancelled Absolute Neuts (auto) Cancelled Absolute Nucleated RBC 0.020 H Nucleated RBC % (auto) 0.1 Neutrophils % (Manual) 77 H Band Neutrophils % 21 H Lymphocytes % (Manual) 1 L Monocytes % (Manual) 1 L Abs Neuts (Manual) 24.8 H Lymphocytes # (Manual) 0.3 L Monocytes # (Manual) 0.3 Nucleated RBCs 1 H Platelet Estimate NORMAL Plt Morphology Comment NORMAL RBC Morphology NOTED Basophilic Stippling 1+ (0-2) Spherocytes 1+ (0-2) Acanthocytes (Spur) 2+ (3-5) Schistocytes 1+ (0-2) PT 29.6 H INR 2.6 H VBG pH VBG pCO2 VBG pO2 VBG HCO3 VBG O2 Saturation VBG Base Excess Sodium 139 Potassium 4.7 Chloride 102 Carbon Dioxide 17 L Anion Gap 25 H BUN 84 H Creatinine 5.62 H* Estim Creat Clear Calc 9.1 Estimated GFR 7 POC Glucose Random Glucose 50 L* Calcium 7.3 L D Phosphorus 6.7 H Magnesium 2.1 Total Bilirubin 0.8 AST 17 ALT 14 Alkaline Phosphatase 157 H D Total Protein 5.8 L Albumin 2.0 L Lipase 21 04/07/22 04/07/22 06:43 07:18 WBC RBC Hgb Hct MCV MCH MCHC RDW Plt Count MPV Immature Gran % (Auto) Neut % (Auto) Lymph % (Auto) [place] % (Auto) Eos % (Auto) Baso % (Auto) Lymph # (Auto) [place] # (Auto) Eos # (Auto) Baso # (Auto) Abs Immat Gran (auto) Absolute Neuts (auto) Absolute Nucleated RBC Nucleated RBC % (auto) Neutrophils % (Manual) Band Neutrophils % Lymphocytes % (Manual) Monocytes % (Manual) Abs Neuts (Manual) Lymphocytes # (Manual) Monocytes # (Manual) Nucleated RBCs Platelet Estimate Plt Morphology Comment RBC Morphology Basophilic Stippling Spherocytes Acanthocytes (Spur) Schistocytes PT INR VBG pH VBG pCO2 VBG pO2 VBG HCO3 VBG O2 Saturation VBG Base Excess Sodium Potassium Chloride Carbon Dioxide Anion Gap BUN Creatinine Estim Creat Clear Calc Estimated GFR POC Glucose 158 H 125 H Random Glucose Calcium Phosphorus Magnesium Total Bilirubin AST ALT Alkaline Phosphatase Total Protein Albumin Lipase Microbiology Microbiology Results: Microbiology 04/03/22 11:30 Thoracentesis Fluid Gram Stain - Final 04/03/22 11:30 Thoracentesis Fluid Anaerobic Culture - Preliminary No growth to date. 04/03/22 11:30 Thoracentesis Fluid Body Fluid Culture - Final No growth after 2 days Quality Stroke Does the patient have a stroke diagnosis?: No VTE Prior VTE?: No VTE Risk Level:: Medical - moderate - high VTE Device Contraindication: N/A - Device Ordered VTE Drug Contraindication: N/A - Med Ordered Critical Care Time Critical Care Time (minutes): 150
[2022-04-07] MEDS: Albumin Human 25 % 100 ML 50 ML IV (14:19)
[2022-04-07] MEDS: Sodium Zirconium Cyclosilicate 5 GM POWD.PACK PO ×2 (14:19→23:21)
[2022-04-07 15:17] LABS: ABG Refer to POC result
[2022-04-07] MEDS: Bumetanide 1 MG/4 ML VIAL 2 MG IVPUSH (15:25)
[2022-04-07] MEDS: Chlorothiazide Sodium 500 MG VIAL IV (15:25)
[2022-04-07] MEDS: Midodrine HCl 10 MG TABLET OG-TUBE ×2 (15:25→21:13)
--- NOTE | 2022-04-07 17:14 | P.PNNP_ITS ---
Subjective Subjective Date of Service: 04/07/22 Principal diagnosis: acute on chronic CHF, hematuria, mechanical Mitral valve Interval history: Seen and examined, events noted Physical Exam Vital Signs: Vital Signs: Last Vital Signs Temp 98.8 F 04/07/22 17:00 Pulse 91 04/07/22 17:00 Resp 23 H 04/07/22 17:00 BP 141/60 H 04/07/22 17:00 Pulse Ox 97 04/07/22 17:00 BMI result Body Mass Index 20.2 Const: General: cooperative, no acute distress and tired appearing Orientation/consciousness: patient oriented x3 HEENT: Head: Yes normal to inspection, Yes normocephalic and Yes atraumatic Eyes: EOM: EOMs intact bilaterally Neck: Neck: Yes supple and Yes no JVD Resp: Auscultation: clear to auscultation bilaterally, crackles and diminished lung sounds Cardio: Jugular venous distension: no JVD Rate: regular rate Rhythm: regular rhythm Heart sounds: S1 normal heart sound present and S2 normal heart sound present GI: Palpation (GI): Soft to palpation Auscultation: normal bowel sounds Skin: Lesions: no lesions Neuro: General: patient oriented x3, moves all extremities and no focal motor deficits Extrem: General: Yes no clubbing, cyanosis or edema Objective Data Labs CBC & Chem 7: 04/07/22 05:15 04/07/22 05:15 Labs: Laboratory Results - last 24 hr 04/07/22 04/07/22 04/07/22 05:14 05:15 05:15 WBC 25.3 H RBC 2.86 L Hgb 8.8 L Hct 26.5 L MCV 92.7 D MCH 30.8 MCHC 33.2 RDW 17.9 H Plt Count 229 MPV 11.2 Immature Gran % (Auto) Cancelled Neut % (Auto) Cancelled Lymph % (Auto) Cancelled [place] % (Auto) Cancelled Eos % (Auto) Cancelled Baso % (Auto) Cancelled Lymph # (Auto) Cancelled [place] # (Auto) Cancelled Eos # (Auto) Cancelled Baso # (Auto) Cancelled Abs Immat Gran (auto) Cancelled Absolute Neuts (auto) Cancelled Absolute Nucleated RBC 0.020 H Nucleated RBC % (auto) 0.1 Neutrophils % (Manual) 77 H Band Neutrophils % 21 H Lymphocytes % (Manual) 1 L Monocytes % (Manual) 1 L Abs Neuts (Manual) 24.8 H Lymphocytes # (Manual) 0.3 L Monocytes # (Manual) 0.3 Nucleated RBCs 1 H Platelet Estimate NORMAL Plt Morphology Comment NORMAL RBC Morphology NOTED Basophilic Stippling 1+ (0-2) Spherocytes 1+ (0-2) Acanthocytes (Spur) 2+ (3-5) Schistocytes 1+ (0-2) PT INR VBG pH 7.49 H VBG pCO2 21 VBG pO2 61 VBG HCO3 16 L VBG O2 Saturation 90.0 VBG Base Excess -4.7 Sodium 139 Potassium 4.7 Chloride 102 Carbon Dioxide 17 L Anion Gap 25 H BUN 84 H Creatinine 5.62 H* Estim Creat Clear Calc 9.1 Estimated GFR 7 POC Glucose Random Glucose 50 L* Lactic Acid Calcium 7.3 L D Phosphorus 6.7 H Magnesium 2.1 Total Bilirubin 0.8 AST 17 ALT 14 Alkaline Phosphatase 157 H D Total Protein 5.8 L Albumin 2.0 L Lipase 21 04/07/22 04/07/22 04/07/22 05:15 06:43 07:18 WBC RBC Hgb Hct MCV MCH MCHC RDW Plt Count MPV Immature Gran % (Auto) Neut % (Auto) Lymph % (Auto) [place] % (Auto) Eos % (Auto) Baso % (Auto) Lymph # (Auto) [place] # (Auto) Eos # (Auto) Baso # (Auto) Abs Immat Gran (auto) Absolute Neuts (auto) Absolute Nucleated RBC Nucleated RBC % (auto) Neutrophils % (Manual) Band Neutrophils % Lymphocytes % (Manual) Monocytes % (Manual) Abs Neuts (Manual) Lymphocytes # (Manual) Monocytes # (Manual) Nucleated RBCs Platelet Estimate Plt Morphology Comment RBC Morphology Basophilic Stippling Spherocytes Acanthocytes (Spur) Schistocytes PT 29.6 H INR 2.6 H VBG pH VBG pCO2 VBG pO2 VBG HCO3 VBG O2 Saturation VBG Base Excess Sodium Potassium Chloride Carbon Dioxide Anion Gap BUN Creatinine Estim Creat Clear Calc Estimated GFR POC Glucose 158 H 125 H Random Glucose Lactic Acid Calcium Phosphorus Magnesium Total Bilirubin AST ALT Alkaline Phosphatase Total Protein Albumin Lipase 04/07/22 15:15 WBC RBC Hgb Hct MCV MCH MCHC RDW Plt Count MPV Immature Gran % (Auto) Neut % (Auto) Lymph % (Auto) [place] % (Auto) Eos % (Auto) Baso % (Auto) Lymph # (Auto) [place] # (Auto) Eos # (Auto) Baso # (Auto) Abs Immat Gran (auto) Absolute Neuts (auto) Absolute Nucleated RBC Nucleated RBC % (auto) Neutrophils % (Manual) Band Neutrophils % Lymphocytes % (Manual) Monocytes % (Manual) Abs Neuts (Manual) Lymphocytes # (Manual) Monocytes # (Manual) Nucleated RBCs Platelet Estimate Plt Morphology Comment RBC Morphology Basophilic Stippling Spherocytes Acanthocytes (Spur) Schistocytes PT INR VBG pH VBG pCO2 VBG pO2 VBG HCO3 VBG O2 Saturation VBG Base Excess Sodium Potassium Chloride Carbon Dioxide Anion Gap BUN Creatinine Estim Creat Clear Calc Estimated GFR POC Glucose Random Glucose Lactic Acid 1.0 Calcium Phosphorus Magnesium Total Bilirubin AST ALT Alkaline Phosphatase Total Protein Albumin Lipase Microbiology Microbiology Results: Microbiology 04/03/22 11:30 Thoracentesis Fluid Gram Stain - Final 04/03/22 11:30 Thoracentesis Fluid Anaerobic Culture - Preliminary No growth to date. 04/03/22 11:30 Thoracentesis Fluid Body Fluid Culture - Final No growth after 2 days Procedures Date of Service Date of Service: 04/07/22 Assessment & Plan Assessment and plan (1) CKD (chronic kidney disease) stage 5, GFR less than 15 ml/min: Status: Acute Plan 1.ALIZA on adv CKD now prog to ESRD and HD started 04/05 2. Resp Failure: events noted--s/p thoracentesis and now on vent 3. Anemia 4.MBD of CKD 5. SOB critically ill REC: hold off on HD todayand plan on HD in am, trial of high dose diuretic Overall prognosis poor given severeity card dysfunc and malnurished state Time Spent With Patient Time: Total time spent is greater than 50% in coordination of care (as documented) at patient's floor/unit and/or counseling patient: Progress Note: Quality Stroke Does the patient have a stroke diagnosis?: No
[2022-04-07] MEDS: fentaNYL citrate/NS 1,000 MCG/100 ML PLAST..BAG 10 MCG IVCONT (21:13)
--- NOTE | 2022-04-07 21:13 | W.PM.CCHP ---
Procedures Date of Service Date of Service: 04/07/22 <EMILIANA Garcia - Last Filed: 04/07/22 22:16> Central Line Placement The patient had a double lumen HD cath in place, this was replaced using a method of wire over the old catheter. The area was cleaned with chlorhexidine, the old dressing was removed, the area was cleaned again and the cath was clampped at the base of the dual ports and the top part was cut off. Then using a sterile tecnique, surgical drapes were applied around it, I used the new kit to identify the hub color to use in order to feed the catherer and proceded to unclamp, feed the wire into the blue hub line, the old cath was removed and a New 13 F tripple lumen Power line cath was inserted successfully and without bleeding. All 3 ports aspirated dark blood and flushed nicely, it was then sutured in place and a dressing was applied.: Central Line Comments: Procedure type: Left triple-lumen hemodialysis catheter replacement of double HD cath (currently in place) Of note, the checks x-ray order mentions a right IJ catheter, however the procedure happened on the LEFT side therefore the catheter is in good position, there is no new pneumothorax. <EMILIANA Garcia - Last Filed: 04/07/22 22:16> Consent for Procedure: Emergent-no informed consent obtained <EMILIANA Garcia Last Filed: 04/07/22 22:16> Time out performed: Yes <EMILIANA Garcia Last Filed: 04/07/22 22:16> Sterile Technique Used: Yes <EMILIANA Garcia Last Filed: 04/07/22 22:16> Patient placed on monitor/pulse ox: Yes <EMILIANA Garcia Last Filed: 04/07/22 22:16> MD prep: mask, gown and gloves <EMILIANA Garcia Last Filed: 04/07/22 22:16> Central line prep: Chlorhexidine scrub <EMILIANA Garcia Last Filed: 04/07/22 22:16> Ultrasound used for placement: No <EMILIANA Garcia Last Filed: 04/07/22 22:16> Central line lumen inserted: triple (HD 13 F ) <EMILIANA Garcia - Last Filed: 04/07/22 22:16> Post procedure: sutured in place, good blood return, all ports aspirated, flushed, capped and sterile dressing applied <EMILIANA Garcia - Last Filed: 04/07/22 22:16> Post procedure x-ray: tip of catheter in good position and no pneumothorax seen <EMILIANA Garcia - Last Filed: 04/07/22 22:16> Patient tolerated procedure: well and no complications <EMILIANA Garcia - Last Filed: 04/07/22 22:16> Complications: none <EMILIANA Garcia - Last Filed: 04/07/22 22:16> Left IJ: Central Line Comments: INDICATION for this procedure: Change double lumen HD catheter to triple lumen catheter, for IV access. <Junior Delgado MD - Last Filed: 04/08/22 09:36>
[2022-04-08] VITALS (47 sets, daily range): BP systolic 56–150; BP diastolic 36–80; PULSE 92–124; RESP 12–29; TEMP 34.6–37.7; O2SAT 92–98; BMI 25.2; BMI 25.1
[2022-04-08] MEDS: Piperacillin Sodium/Tazobactam 2.25 GM in 0.9 % Sodium Chloride 50 ML IV ×3 (00:32→16:03)
[2022-04-08] MEDS: dilTIAZem HCL 30 MG TABLET OG-TUBE ×4 (00:32→17:57)
[2022-04-08 05:21] LABS: VBG Base Excess -2.9 mmol/L; VBG HCO3 19 mmol/L (22-26); VBG pCO2 25 mmHg; VBG pH 7.48 (7.32-7.43); VBG pO2 44 mmHg
[2022-04-08 05:31] LABS: Hematocrit 25.8 % (37.0-47.0); Hemoglobin 8.6 g/dl (12.0-16.0); Mean Corpuscular HGB Conc 33.3 g/dl (31.0-35.0); Mean Corpuscular Hemoglobin 30.1 pg (27.0-33.0); Mean Corpuscular Volume 90.2 fL (80.0-98.0); Mean Platelet Volume 10.7 fL (9.4-12.3); Platelet Count 187 X10*3/uL (160-400); Red Blood Count 2.86 X10*6/uL (4.20-5.50); Red Cell Distribution Width 17.7 % (11.0-16.0); White Blood Count 24.1 X10*3/uL (4.8-10.8)
[2022-04-08 05:32] LABS: Venous Blood Gas Refer to POC result
[2022-04-08 05:37] LABS: INTERNATIONAL NORM RATIO 1.7 (0.9-1.1); Prothrombin Time 19.5 SEC (9.9-13.0)
[2022-04-08 05:52] LABS: B Type Natriuretic Peptide 2267 pg/mL (<100)
[2022-04-08 05:53] LABS: Albumin Level 1.9 g/dL (3.5-5.0); Anion Gap 18 (12-20); Blood Urea Nitrogen 91 mg/dL (9-16); Calcium 7.1 mg/dL (8.4-10.2); Carbon Dioxide 20 mmol/L (22-29); Chloride 103 mmol/L (96-108); Creatinine Clr Calc Pharmacy 9.4; Estimated Glomerular Filt Rate 7; Glucose Random 111 mg/dL (60-115); Magnesium 2.1 mg/dL (1.6-2.6); Potassium 4.4 mmol/L (3.3-5.1); Sodium 137 mmol/L (135-145)
[2022-04-08] MEDS: Midodrine HCl 10 MG TABLET OG-TUBE ×3 (06:13→21:58)
[2022-04-08] MEDS: Levothyroxine Sodium 112 MCG, Levothyroxine Sodium 25 MCG 137 MCG PO (06:13)
[2022-04-08] MEDS: fentaNYL citrate/NS 1,000 MCG/100 ML PLAST..BAG 10 MCG IVCONT (06:26)
[2022-04-08] MEDS: Sodium Zirconium Cyclosilicate 5 GM POWD.PACK PO (07:12)
[2022-04-08] MEDS: 0.9 % Sodium Chloride Flush 3 ML SYRINGE IVFLUSH ×2 (07:13→14:05)
[2022-04-08] MEDS: Artificial Tears 15 ML DROPS 1 DROP EYE-BOTH ×3 (07:13→21:10)
[2022-04-08] MEDS: Chlorhexidine Gluc Oral Rinse 15 ML MOUTHWASH BUCCAL ×3 (07:13→21:10)
--- NOTE | 2022-04-08 08:18 | MHC.CLN ---
F/U PT IS MODERATELY MALNOURISHED SEE ALSO FULL CLINICAL NUTRITION ASSESSMENT DATED 04/04/22 PT IS INTUBATED RECOMMEND INCREASING TF FORMULA NEPRO TO MAX GOAL RATE 40ML/HR WITH 240ML FREE WATER FLUSHES Q 8HRS TO PROVIDE 1728KCALS (29KCALS/KG), 78G PROTEIN (1.2G/KG), 1418ML TOTAL WATER FROM FORMULA AND FLUSHES (23ML/KG) MONITOR TOLERANCE, RESIDUALS AND LYTES
--- NOTE | 2022-04-08 09:35 | MHC.CM.PN ---
Patient continues in ICU, Case Management following for discharge planning needs as appropriate.
[2022-04-08] MEDS: Albumin Human 25 % 100 ML IV ×2 (10:18→15:02)
[2022-04-08] MEDS: fentaNYL citrate/PF 100 MCG/2 ML VIAL 50 MCG IVPUSH (10:59)
[2022-04-08] MEDS: Heparin Sodium,Porcine/1/2NS 25,000 UNIT/250 ML IV.SOLN 10.81 UNIT IVCONT (11:13)
--- NOTE | 2022-04-08 12:22 | PC.NURSE ---
1210 - new ST elevated noticed on tele - Dr Delgado notified and EKG ordered - EKG completed and reading ACUTE STEMI. Dr Delgado notified and speaking to patients daughter at bedside. Heparin gtt currently running at 14u. Next PTTHD at 1715. BP 105/63, HR 111, RR 20, 96% on 30% Fio2
[2022-04-08] MEDS: Heparin Sodium,Porcine 5,000 UNIT/ML VIAL 2000 UNIT IVPUSH (12:31)
[2022-04-08] MEDS: Aspirin 325 MG TABLET G-TUBE (12:46)
[2022-04-08] MEDS: Atorvastatin Calcium 80 MG TABLET G-TUBE (12:47)
--- NOTE | 2022-04-08 12:55 | ECG_ITS ---
Test Reason : r/o acute AL Blood Pressure : / mmHG Vent. Rate : 111 BPM Atrial Rate : 111 BPM P-R Int : 082 ms QRS Dur : 100 ms QT Int : 368 ms P-R-T Axes : 024 005 242 degrees QTc Int : 500 ms Poor data quality Possible Accelerated Junctional Rhythm Minimal voltage criteria for LVH, may be normal variant ( Woo product ) ST elevation consider anterolateral injury or acute infarct ACUTE AL / STEMI Abnormal ECG When compared to the previous EKG of ST elevation in Anterolateral leads is now present Referred By: Junior Delgado Electronically Signed By:KATIA MEAD MD
--- NOTE | 2022-04-08 14:05 | P.PNCC_ITS ---
Subjective Subjective Date of Service: 04/08/22 Interval History: Mrs. Dooley was transferred to the ICU on April 06 [facility] of hypercapnic and hypoxemic resp failure failure for BiPAP, and subsequently required emergent tracheal intubation. 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 ECHO 08/2021 showed:? Severely dilated CMOP.? Normal LV wall thickness. ?LV systolic function severely decreased, EF15-20%. ?Mildly increased RV cavity size w mild-moderately decreased function.? Normal mechanical prosthetic MV fxn.? Severe biatrial enlargement.? Mod-severe TR with dilated, poorly collapsing IVC, RVSP 49mm. Her daughter Yeny told me about her functional status:? Mrs. Garza moved in w her daughter and the daughter?s this past July she needed more care.? Yeny works as her mother?s hiv/aids care nurse, and is the HCP.? Mrs. Garza walks w a walker.? She gets out of the house a few days a week.? Yeny helps her bathe and dress.? She is independent with eating and toileting.? The patient considered her quality of life to be satisfactory.? Yeny told me that the patient had had discussions with her kidney doctor in regards to the fact that dialysis was likely coming in the future.? She filled out a MOLST form in 09/2021 designating full support. HISTORY OF PRESENT ILLNESS:? The patient was admitted to [facility] [place] 03/15/2022 with dyspnea secondary to heart failure exacerbation.? Hospital course was complicate d by urinary retention with traumatic wilson placement resulting in hematuria requiring transfusion of total 9 units RBCs, culminating in cystoscopy w fulgaration for bleeding control on 03/24; development of right-sided pleural effusion, s/p therapeutic thoracentesis 1.2 L on April 03; and progressive renal failure initiated on hemodialysis on 04/05/2022 via Left IJ temp dialysis catheter (instead of permcath bec of elevated INR) On 04/06 the patient developed lethargy, hypoxemia and for hypercarbia.? She was put on BiPAP and transferred to ICU.? CXR showed reaccumulation of right-sided pleural effusion and new infiltrates on the left, thought secondary to aspiration.? Right thoracentesis removed 800 cc of serosanguineous fluid, but without improvement in her respiratory status.? Therefore the patient was intubated.? Of note, during the thoracentesis, the patient had a 13 second run of VT (at a rate of 137/min) that self-terminated without a shock from her device.? The patient was started on Zosyn for empiric pulmonary aspiration coverage. The post-intubation CXR reading missed a right basilar pneumothorax, which was undetected until a film done later that night after OGT placement showed a large tension PTX.? A pigtail drainage catheter was placed which, after repositioning, drained the entire hydropneumothorax.? The patient was not dialyzed that day because of hemodynamic instability. Yesterday she was on Levophed at 0.2 ug, with no metabolic indication for HD, so she wasn?t dialyzed.? My bedside ECHOCARDIOGRAM for hemodynamic monitoring showed: 1. Normal LV wall thickness 2. LV is at least mildly dilated with severe systolic dysfunction, and marked regional wall motion abnormalities.? The septum and apex are akinetic.? Overall EF 10-15% maximum. 3. RV size looked normal to me 4. 2-3 + TR by color-flow.? CWD signal measured 2.5 m/s (gradient 25mm). 5. IVC measured 2.4 cm, with minimal inspiratory collapse.? Estimated CVP 15 mm.? Estimated RVSP 40mm. INR this morning was down to 1.7.? We started her on a heparin infusion (bec of mechanical MV).? This morning the patient was on Levophed down to 0.18ug.? She went on HD.? The Levophed requirement jeff, despite albumin infusion.? At about 3:45 hours into the session, she started having ventricular ectopy.? Thereafter, her heart rate jeff into the 140s.? At that point, we ended the dialysis session; only 1.5L taken off.? Her HR and Levophed requirement came down.? About 1 hour later, the morphology of her bedside monitor tracing changed.? We did an EKG which showed lateral ST segment elevation suggestive of acute CA.? Discussed with Dr. Estrella.? She was already on heparin infusion.? We added aspirin and statin.? Discussed at length with the patient's daughter Yeny, who was at the bedside.? Also discussed at length with Dr. Maria (renal). Currently the patient is off propofol since yest afternoon.? On fent 75ug.? She opens eyes easily to command, seems to track slightly.? Heart rate is 108, in chronic atrial fibrillation, on diltiazem 30mg q6.? Blood pressure is 104/62 on Levophed 0.23ug.? On assist control 12/350/30%/+5, RR is 23, Ve 8L, PIP 28cm, ETCO2 22mm, Sat 96%.? This morning's CVBG showed 7.48/25/-2.? She is afebrile.? Obvious prosthetic left eye.? No JVD at 30?.? Chest CTA with normal exp phase.? Possible slight crepitus at insertion site of right PTX catheter.? RRR, soft S1 and S2, and easily audible click of her mitral valve with the patient in the slightly right lateral decubitus position.? Abdomen is flat and benign.? She has at least 2+ central edema. The patient has an approx. 1 x 2 inch pupuric unstageable DTI on her coccyx. LABORATORY DATA:? As below.? Notably, WBC 24 steady, PT 19/1.7 after no Coumadin last night.? BUN/creatinine up to 91/5.7, with potassium stable at 4.4, bicarb 20, phos up slightly to 6.7.? BNP up to 2200.? Albumin 19. MICROBIOLOGY:? Sputum Gram stain this morning:? 3+ polys, 3+ red blood cells, No organisms seen. CXR this morning (f/u PTX):? Possible sliver of PTX in the apex and at the right base.? Also has new SQ emphysema at base of right chest.? D/W Dr. Palmer. IMPRESSION: 1. Underlying severe dilated biventricular ischemic CMOP. 2. Underlying CAD w echo evidence of previous CA. 3. Mechanical prosthetic MV.? Needs anticoagulation.? Holding Coumadin while she is critically ill, switched to heparin. 4. Underlying Chronic afib.? Controlled now w ditiazem.? Hesitant to use beta- hubert because of severe cardiomyopathy and further events of this morning. 5. Underlying hypothyroidism.? Continue thyroid. 6. Acute hypercarbic & hypoxemic resp failure.? 2? exac of chronic systolic heart failure.? She?s undoubtedly still volume overloaded.? And after acute ischemic event this morning and with her still on pressors, she is no candidate for extubation. 7. Hypotension.? Most likely 2? combination of severe CMOP and acute renal failure.? Lactate and blood cultures were negative. ?Continue midodrine.? Target BP is 90 systolic, or MAP about 60.? I?ll give her another 100cc albumin. 8. Acute on chronic renal failure.? Likely secondary to ATN.? It is likely that she will require permanent hemodialysis henceforth, if she survives.? The daughter is aware. 9. ID.? New left lung infiltrates on 04/06.? Most likely 2? aspiration pneumonia.? FiO2 down to 30% now, afebrile, but WBC still high.? Continue Zosyn for another day. 10. Acute ischemic event this morning.? Trop pending.? No obvious residual hemod sequelae.? D/W Dr. Estrella.? She?s on heparin, ASA, statin.? Troponin pending.? Otherwise nothing to do (not a candidate for a cath).? But this makes me very hesitant to try to dialyze her, unless she has a clear metabolic need.? D/W Dr. Maria at great length this afternoon. 11. ? ICD failure yesterday.? D/W Dr. Estrella.? Her ICD is not set to trigger for that low a HR. 12. Right-sided pneumothorax.? Put the drainage tube to water seal.? Recheck CXR at 6pm and tomorrow. 13. DTI Coccyx. 14. Nutrition:? At least moderate, if not severe PCM.? Could be cardiac cachexia.? Will have a substantial impact on her survivability.? On Nepro at 40cc. 15. Poor IV access:? Changed her double lumen dialysis catheter to a triple lumen catheter last night. Ashley Saini cell phone:? [phone]. Spoke with her at the bedside today in mult extended conversations about her mother?s current condition, the difficulty with dialysis, and the grave prognosis.? Dr. Maria also spoke with her about the difficulties with dialysis.? Not sure if/when we?ll be able to dialyze her again. Prognosis is grave.? Likelihood of surviving this hospitalization is less than 50:50.? One year mortality from here approaches 90%. Critical care time (including mult extended conversations with the daughter, with Dr. Estrella, with Dr. Maria, and with Dr. Lopez): ?2+ hrs. Critical Care Time (minutes): 120 Physical Exam Vital Signs: Vital Signs: Last Vital Signs Temp 99.3 F 04/08/22 14:00 Pulse 105 H 04/08/22 14:00 Resp 23 H 04/08/22 14:00 BP 102/58 L 04/08/22 14:00 Pulse Ox 95 04/08/22 14:00 BMI result Body Mass Index 25.1 Objective Data Labs CBC & Chem 7: 04/08/22 05:15 04/08/22 05:15 Labs: Laboratory Results - last 24 hr 04/07/22 04/08/22 04/08/22 15:15 05:13 05:15 WBC RBC Hgb Hct MCV MCH MCHC RDW Plt Count MPV Absolute Nucleated RBC Nucleated RBC % (auto) PT 19.5 H INR 1.7 H VBG pH 7.48 H VBG pCO2 25 VBG pO2 44 VBG HCO3 19 L VBG O2 Saturation 73.0 VBG Base Excess -2.9 Sodium Potassium Chloride Carbon Dioxide Anion Gap BUN Creatinine Estim Creat Clear Calc Estimated GFR Random Glucose Lactic Acid 1.0 Calcium Phosphorus Magnesium B-Natriuretic Peptide Albumin 04/08/22 04/08/22 04/08/22 05:15 05:15 05:15 WBC 24.1 H RBC 2.86 L Hgb 8.6 L Hct 25.8 L MCV 90.2 MCH 30.1 MCHC 33.3 RDW 17.7 H Plt Count 187 MPV 10.7 Absolute Nucleated RBC 0.000 Nucleated RBC % (auto) 0.0 PT INR VBG pH VBG pCO2 VBG pO2 VBG HCO3 VBG O2 Saturation VBG Base Excess Sodium 137 Potassium 4.4 Chloride 103 Carbon Dioxide 20 L Anion Gap 18 BUN 91 H Creatinine 5.78 H* Estim Creat Clear Calc 9.4 Estimated GFR 7 Random Glucose 111 Lactic Acid Calcium 7.1 L Phosphorus 7.0 H Magnesium 2.1 B-Natriuretic Peptide 2267 H Albumin 1.9 L Microbiology Microbiology Results: Microbiology 04/08/22 10:43 Sputum - Suctioned Gram Stain - Final 04/03/22 11:30 Thoracentesis Fluid Gram Stain - Final 04/03/22 11:30 Thoracentesis Fluid Anaerobic Culture - Preliminary No growth to date. 04/03/22 11:30 Thoracentesis Fluid Body Fluid Culture - Final No growth after 2 days Quality Stroke Does the patient have a stroke diagnosis?: No VTE Prior VTE?: No VTE Risk Level:: Medical - moderate - high VTE Device Contraindication: N/A - Device Ordered VTE Drug Contraindication: N/A - Med Ordered Critical Care Time Critical Care Time (minutes): 120
[2022-04-08 14:38] LABS: PTT Heparin Drip 61.3 SEC (53-77.9)
[2022-04-08 15:07] LABS: Troponin-I High Sensitivity 1185.5 ng/L (<3.5-17.0)
--- NOTE | 2022-04-08 16:37 | PM.PNNEP ---
Subjective Subjective Date of Service: 04/08/22 Principal diagnosis: acute on chronic CHF, hematuria, mechanical Mitral valve Interval history: Chart Reviewed. Events noted. Physical Exam Vital Signs: Vital Signs: Last Vital Signs Temp 99.5 F 04/08/22 16:00 Pulse 103 H 04/08/22 16:00 Resp 26 H 04/08/22 16:00 BP 107/61 04/08/22 16:00 Pulse Ox 96 04/08/22 16:00 BMI result Body Mass Index 25.1 Objective Data Labs CBC & Chem 7: 04/08/22 05:15 04/08/22 05:15 Labs: Laboratory Results - last 24 hr 04/08/22 04/08/22 04/08/22 05:13 05:15 05:15 WBC 24.1 H RBC 2.86 L Hgb 8.6 L Hct 25.8 L MCV 90.2 MCH 30.1 MCHC 33.3 RDW 17.7 H Plt Count 187 MPV 10.7 Absolute Nucleated RBC 0.000 Nucleated RBC % (auto) 0.0 PT 19.5 H INR 1.7 H aPTT Heparin Protocol VBG pH 7.48 H VBG pCO2 25 VBG pO2 44 VBG HCO3 19 L VBG O2 Saturation 73.0 VBG Base Excess -2.9 Sodium Potassium Chloride Carbon Dioxide Anion Gap BUN Creatinine Estim Creat Clear Calc Estimated GFR Random Glucose Calcium Phosphorus Magnesium Troponin I High Sens B-Natriuretic Peptide Albumin 04/08/22 04/08/22 04/08/22 05:15 05:15 14:23 WBC RBC Hgb Hct MCV MCH MCHC RDW Plt Count MPV Absolute Nucleated RBC Nucleated RBC % (auto) PT INR aPTT Heparin Protocol 61.3 D VBG pH VBG pCO2 VBG pO2 VBG HCO3 VBG O2 Saturation VBG Base Excess Sodium 137 Potassium 4.4 Chloride 103 Carbon Dioxide 20 L Anion Gap 18 BUN 91 H Creatinine 5.78 H* Estim Creat Clear Calc 9.4 Estimated GFR 7 Random Glucose 111 Calcium 7.1 L Phosphorus 7.0 H Magnesium 2.1 Troponin I High Sens B-Natriuretic Peptide 2267 H Albumin 1.9 L 04/08/22 14:23 WBC RBC Hgb Hct MCV MCH MCHC RDW Plt Count MPV Absolute Nucleated RBC Nucleated RBC % (auto) PT INR aPTT Heparin Protocol VBG pH VBG pCO2 VBG pO2 VBG HCO3 VBG O2 Saturation VBG Base Excess Sodium Potassium Chloride Carbon Dioxide Anion Gap BUN Creatinine Estim Creat Clear Calc Estimated GFR Random Glucose Calcium Phosphorus Magnesium Troponin I High Sens 1185.5 H* B-Natriuretic Peptide Albumin Microbiology Microbiology Results: Microbiology 04/08/22 10:43 Sputum - Suctioned Gram Stain - Final 04/03/22 11:30 Thoracentesis Fluid Gram Stain - Final 04/03/22 11:30 Thoracentesis Fluid Anaerobic Culture - Preliminary No growth to date. 04/03/22 11:30 Thoracentesis Fluid Body Fluid Culture - Final No growth after 2 days Procedures Date of Service Date of Service: 04/08/22 Assessment & Plan Assessment and plan (1) CKD (chronic kidney disease) stage 5, GFR less than 15 ml/min: Status: Acute Assessment and Plan: 1.ALIZA on adv CKD now prog to ESRD and HD started 04/05. UF performed on 04/06 2. Resp Failure: events noted--s/p thoracentesis and now on vent 3. Anemia 4.MBD of CKD 5. SOB critically ill REC: Attempt at HD today however patient became hypotensive and tachycardic. HD stopped early. Would hold off on additional HD. Discussed course and prognosis with patient's daughter at bedside. She is in agreement that HD not be attempted again. Overall prognosis poor given severity card dysfunc and malnourished state (2) Hypotension: Status: Acute (3) Acute on chronic heart failure with reduced ejection fraction and diastolic dysfunction: Status: Acute Time Spent With Patient Time: Total time spent is greater than 50% in coordination of care (as documented) at patient's floor/unit and/or counseling patient: Progress Note: Quality Stroke Does the patient have a stroke diagnosis?: No
[2022-04-08 17:48] LABS: PTT Heparin Drip 47.3 SEC (53-77.9)
[2022-04-08] MEDS: Heparin Sodium,Porcine 5,000 UNIT/ML VIAL 3100 UNIT IVPUSH (17:56)
[2022-04-08 18:12] LABS: Troponin-I High Sensitivity 1009.1 ng/L (<3.5-17.0)
[2022-04-08] MEDS: fentaNYL citrate/NS 1,000 MCG/100 ML PLAST..BAG 5 MCG IVCONT (19:17)
[2022-04-09] VITALS (35 sets, daily range): BP systolic 75–118; BP diastolic 48–66; PULSE 98–120; RESP 12–26; TEMP 34.8–38.1; O2SAT 90–98; BMI 25.5
[2022-04-09 00:10] LABS: Hematocrit 26.1 % (37.0-47.0); Hemoglobin 8.6 g/dl (12.0-16.0)
[2022-04-09] MEDS: Piperacillin Sodium/Tazobactam 2.25 GM in 0.9 % Sodium Chloride 50 ML IV ×3 (00:13→18:03)
[2022-04-09] MEDS: Furosemide 20 MG/2 ML VIAL IVPUSH (00:13)
[2022-04-09 00:32] LABS: Troponin-I High Sensitivity 1061.7 ng/L (<3.5-17.0)
--- NOTE | 2022-04-09 03:49 | PC.NURSE ---
At approx 2200- pt desaturating, SpO2 80s, high PIP, low Vt/Ve, coughing. In-line suctioned and lavaged for large amount of blood/clots. PA notified and d/w - to hold heparin gtt x6hrs, restart at 10 units/kg/hr, re-check PTTHD on 04/09 at 1000. Nursing communication order placed. Subsequently, pt requiring 100% FiO2 x2hrs to maintain SpO2 > 92%, CXR ordered. Given lasix 20 mg IVP x1 per PA. Eventually able to titrated down per emar. Right mid-axillary chest tube to gravity/water seal, subcutaneous emphysema, small amount of serosanguinous drainage noted. Increased levophed gtt requirements to maintain MAP > 65, titrated per mar. H/H and troponin rechecked.
--- NOTE | 2022-04-09 04:52 | PC.NURSE ---
At approx 2200- pt desaturating, SpO2 80s, high PIP, low Vt/Ve, coughing. In-line suctioned and lavaged for large amount of blood/clots. PA notified and d/w - to hold heparin gtt x6hrs, restart at 10 units/kg/hr, re-check PTTHD on 04/09 at 1000. Nursing communication order placed. Subsequently, pt requiring 100% FiO2 x2hrs to maintain SpO2 > 92%, CXR ordered. Given lasix 20 mg IVP x1 per PA. Eventually able to titrate FiO2 down per emar. Right mid-axillary chest tube to gravity/water seal, subcutaneous emphysema, small amount of serosanguinous drainage noted. Increased levophed gtt requirements to maintain MAP > 65, titrated per mar. H/H and troponin rechecked.
[2022-04-09 05:37] LABS: VBG Base Excess -5.4 mmol/L; VBG HCO3 20 mmol/L (22-26); VBG pCO2 40 mmHg; VBG pO2 82 mmHg
[2022-04-09 05:37] LABS: Venous Blood Gas Refer to POC result
[2022-04-09] MEDS: Levothyroxine Sodium 112 MCG, Levothyroxine Sodium 25 MCG 137 MCG PO (05:48)
[2022-04-09] MEDS: Midodrine HCl 10 MG TABLET OG-TUBE ×3 (05:49→22:12)
[2022-04-09 05:53] LABS: Hematocrit 28.1 % (37.0-47.0); Mean Corpuscular Hemoglobin 29.7 pg (27.0-33.0); Mean Corpuscular Volume 92.7 fL (80.0-98.0); Mean Platelet Volume 11.2 fL (9.4-12.3); Platelet Count 165 X10*3/uL (160-400); Red Blood Count 3.03 X10*6/uL (4.20-5.50); Red Cell Distribution Width 17.9 % (11.0-16.0); White Blood Count 24.3 X10*3/uL (4.8-10.8)
[2022-04-09 06:00] LABS: INTERNATIONAL NORM RATIO 1.3 (0.9-1.1); Prothrombin Time 14.7 SEC (9.9-13.0)
[2022-04-09 06:07] LABS: Lactic Acid 0.9 mmol/L (0.5-2.0)
[2022-04-09 06:19] LABS: Albumin Level 2.2 g/dL (3.5-5.0); Anion Gap 15 (12-20); Blood Urea Nitrogen 63 mg/dL (9-16); Calcium 7.4 mg/dL (8.4-10.2); Carbon Dioxide 20 mmol/L (22-29); Chloride 103 mmol/L (96-108); Creatinine Clr Calc Pharmacy 12.7; Estimated Glomerular Filt Rate 10; Glucose Random 93 mg/dL (60-115); Magnesium 2.1 mg/dL (1.6-2.6); Phosphorus 4.7 mg/dL (2.7-4.5); Potassium 3.8 mmol/L (3.3-5.1); Sodium 134 mmol/L (135-145)
[2022-04-09 06:22] LABS: Troponin-I High Sensitivity 1045.5 ng/L (<3.5-17.0)
[2022-04-09] MEDS: Chlorhexidine Gluc Oral Rinse 15 ML MOUTHWASH BUCCAL ×3 (08:05→20:46)
[2022-04-09] MEDS: dilTIAZem HCL 30 MG TABLET OG-TUBE ×2 (08:05→18:03)
[2022-04-09] MEDS: 0.9 % Sodium Chloride Flush 3 ML SYRINGE IVFLUSH ×3 (08:06→23:55)
[2022-04-09] MEDS: Artificial Tears 15 ML DROPS 1 DROP EYE-BOTH ×3 (08:06→20:44)
[2022-04-09] MEDS: Aspirin 81 MG TAB.CHEW G-TUBE (08:06)
[2022-04-09] MEDS: Atorvastatin Calcium 40 MG TABLET G-TUBE (08:06)
--- NOTE | 2022-04-09 09:33 | MHC.CLN ---
F/U PT REMAINS INTUBATED PT IS MODERATELY MALNOURISHED SEE ALSO FULL CLINICAL NUTRITION ASSESSMENT DATED 04/04/22 PT RECEIVING NEPRO TO MAX GOAL RATE 40ML/HR WITH 240ML FREE WATER FLUSHES Q 8HRS PROVIDES 1728KCALS (29KCALS/KG), 78G PROTEIN (1.2G/KG), 1418ML TOTAL WATER FROM FORMULA AND FLUSHES (23ML/KG) NSG REPORTED 600ML TF RESIDUALS TF CURRENTLY ON HOLD; NOTED HD STOPPED EARLY ON 04/08 AND PRESSURE INJURY NOW A DTI CONTINUE TO MONITOR TOLERANCE, RESIDUALS AND LYTES
[2022-04-09 10:53] LABS: PTT Heparin Drip 39.6 SEC (53-77.9)
[2022-04-09] MEDS: fentaNYL citrate/NS 1,000 MCG/100 ML PLAST..BAG 5 MCG IVCONT (13:24)
--- NOTE | 2022-04-09 14:46 | MHC.CM.PN ---
Pt continues in ICU on vent support and with continued tx for CHF and renal failure. notes pt has poor prognosis. No decisions have been made by family to withdrawal supportive care or continue with current course. CM to follow for finalization of d/c plans. Original plan was for a return to home with family and existing community supports
--- NOTE | 2022-04-09 18:32 | PC.NURSE ---
Patient remains intubated. AC 12/350/25/5 Min volumes 4-5 Fentanyl at 50mcg all day until 1809, Dr. Delgado ordered it to be turned down to 20mcg. RR exactly at 12, however patient awakened to alarm vent after PCXR. Chest tube removed by Dr. Delgado. Occlusive dressing applied. VSS Tube feeds off for good portion of the day for high residuals. 1500 residual was 105mL. Feeds restarted at 20mL/hr. Levophed infusing to sustain MAP goal 60. Total UO this shift 40mL. Repositioned q2hr per protocol. Daughter in to visit. Given update by Dr. Delgado [id number].
--- NOTE | 2022-04-09 19:28 | P.PNNP_ITS ---
Subjective Subjective Date of Service: 04/09/22 Principal diagnosis: acute on chronic CHF, hematuria, mechanical Mitral valve Interval history: Chart Reviewed. Events noted. Physical Exam Vital Signs: Vital Signs: Last Vital Signs Temp 99.5 F 04/09/22 19:00 Pulse 103 H 04/09/22 19:00 Resp 12 04/09/22 19:00 BP 77/50 L 04/09/22 19:27 Pulse Ox 94 04/09/22 19:00 BMI result Body Mass Index 25.5 Const: Nutritional Appearance: cachectic HEENT: Head: Yes normocephalic Neck: Neck: Yes no JVD Resp: Auscultation: clear to auscultation bilaterally Cardio: Jugular venous distension: no JVD Rhythm: abnormal rhythm GI: Auscultation: normal bowel sounds Neuro: Other: sedated Extrem: General: Yes no clubbing, cyanosis or edema Objective Data Labs CBC & Chem 7: 04/09/22 05:23 04/09/22 05:23 Labs: Laboratory Results - last 24 hr 04/08/22 04/08/22 04/09/22 23:54 23:54 05:23 WBC RBC Hgb 8.6 L Hct 26.1 L MCV MCH MCHC RDW Plt Count MPV Absolute Nucleated RBC Nucleated RBC % (auto) PT 14.7 H INR 1.3 H APTT aPTT Heparin Protocol VBG pH VBG pCO2 VBG pO2 VBG HCO3 VBG O2 Saturation VBG Base Excess Sodium Potassium Chloride Carbon Dioxide Anion Gap BUN Creatinine Estim Creat Clear Calc Estimated GFR Random Glucose Lactic Acid Calcium Phosphorus Magnesium Troponin I High Sens 1061.7 H* Albumin 04/09/22 04/09/22 04/09/22 05:23 05:23 05:23 WBC 24.3 H RBC 3.03 L Hgb 9.0 L Hct 28.1 L MCV 92.7 MCH 29.7 MCHC 32.0 RDW 17.9 H Plt Count 165 MPV 11.2 Absolute Nucleated RBC 0.000 Nucleated RBC % (auto) 0.0 PT INR APTT aPTT Heparin Protocol VBG pH VBG pCO2 VBG pO2 VBG HCO3 VBG O2 Saturation VBG Base Excess Sodium 134 L Potassium 3.8 Chloride 103 Carbon Dioxide 20 L Anion Gap 15 BUN 63 H Creatinine 4.30 H* Estim Creat Clear Calc 12.7 Estimated GFR 10 Random Glucose 93 Lactic Acid 0.9 Calcium 7.4 L Phosphorus 4.7 H Magnesium 2.1 Troponin I High Sens Albumin 2.2 L 04/09/22 04/09/22 04/09/22 05:23 05:26 10:10 WBC RBC Hgb Hct MCV MCH MCHC RDW Plt Count MPV Absolute Nucleated RBC Nucleated RBC % (auto) PT INR APTT Cancelled aPTT Heparin Protocol 39.6 L VBG pH 7.30 L VBG pCO2 40 VBG pO2 82 VBG HCO3 20 L VBG O2 Saturation 93.0 VBG Base Excess -5.4 Sodium Potassium Chloride Carbon Dioxide Anion Gap BUN Creatinine Estim Creat Clear Calc Estimated GFR Random Glucose Lactic Acid Calcium Phosphorus Magnesium Troponin I High Sens 1045.5 H* Albumin Microbiology Microbiology Results: Microbiology 04/07/22 15:15 Blood - Venous Blood Culture - Preliminary No growth after 48 hours. 04/07/22 15:15 Blood - Venous Blood Culture - Preliminary No growth after 48 hours. 04/08/22 10:43 Sputum - Suctioned Gram Stain - Final 04/08/22 10:43 Sputum - Suctioned Sputum Culture - Preliminary Culture in progress. 04/03/22 11:30 Thoracentesis Fluid Gram Stain - Final 04/03/22 11:30 Thoracentesis Fluid Anaerobic Culture - Final NO GROWTH AFTER 5 DAYS 04/03/22 11:30 Thoracentesis Fluid Body Fluid Culture - Final No growth after 2 days Procedures Date of Service Date of Service: 04/09/22 Assessment & Plan Assessment and plan (1) Acute kidney failure: Status: Acute (2) CKD (chronic kidney disease) stage 5, GFR less than 15 ml/min: Status: Acute Assessment and Plan: 1.ALIZA on adv CKD now prog to ESRD and HD started 04/05. UF performed on 04/06. HD on 04/08 however patient became hypotensive and tachycardic. HD stopped early. Wo uld hold off on additional HD. 2. Resp Failure: events noted--s/p thoracentesis and now on vent 3. Anemia 4.MBD of CKD 5. SOB critically ill Overall prognosis poor given severity card dysfunc and malnourished state Time Spent With Patient Time: Total time spent is greater than 50% in coordination of care (as documented) at patient's floor/unit and/or counseling patient: Progress Note: Quality Stroke Does the patient have a stroke diagnosis?: No
--- NOTE | 2022-04-09 19:46 | P.PNCC_ITS ---
Subjective Subjective Date of Service: 04/09/22 Interval History: Mrs. Dooley was transferred to the ICU on April 06 [facility] of hypercapnic and hypoxemic resp failure failure for BiPAP, and subsequently required emergent tracheal intubation. 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 ECHO 08/2021 showed:? Severely dilated CMOP.? Normal LV wall thickness. ?LV systolic function severely decreased, EF15-20%. ?Mildly increased RV cavity size w mild-moderately decreased function.? Normal mechanical prosthetic MV fxn.? Severe biatrial enlargement.? Mod-severe TR with dilated, poorly collapsing IVC, RVSP 49mm. Her daughter Yeny told me about her functional status:? Mrs. Garza moved in w her daughter and the daughter?s this past July she needed more care.? Yeny works as her mother?s career development consultant, and is the HCP.? Mrs. Garza walks w a walker.? She gets out of the house a few days a week.? Yeny helps her bathe and dress.? She is independent with eating and toileting.? The patient considered her quality of life to be satisfactory.? Yeny told me that the patient had had discussions with her kidney doctor in regards to the fact that dialysis was likely coming in the future.? She filled out a MOLST form in 09/2021 designating full support. HISTORY OF PRESENT ILLNESS:? The patient was admitted to [facility] [place] 03/[place]/2022 with dyspnea secondary to heart failure exacerbation.? Hospital course was complicated by urinary retention with traumatic wilson placement resulting in hematuria requiring transfusion of total 9 units RBCs, culminating in cystoscopy w fulgaration for bleeding control on 03/24; development of right-sided pleural effusion, s/p therapeutic thoracentesis 1.2 L on April 03; and progressive renal failure initiated on hemodialysis on 04/05/2022 via Left IJ temp dialysis catheter (instead of permcath bec of elevated INR) On 04/06 the patient developed lethargy, hypoxemia and for hypercarbia.? She was put on BiPAP and transferred to ICU.? CXR showed reaccumulation of right-sided pleural effusion and new infiltrates on the left, thought secondary to aspiration.? Right thoracentesis removed 800 cc of serosanguineous fluid, but without improvement in her respiratory status.? Therefore the patient was intubated.? Of note, during the thoracentesis, the patient had a 13 second run of VT (at a rate of 137/min) that self-terminated without a shock from her device.? The patient was started on Zosyn for empiric pulmonary aspiration coverage. The post-intubation CXR reading missed a right basilar pneumothorax, which was undetected until a film done later that night after OGT placement showed a large tension PTX.? A pigtail drainage catheter was placed which, after repositioning, drained the entire hydropneumothorax.? The patient was not dialyzed that day because of hemodynamic instability. My bedside ECHOCARDIOGRAM for hemodynamic monitoring on April 07 showed: 1. Normal LV wall thickness 2. LV is at least mildly dilated with severe systolic dysfunction, and marked regional wall motion abnormalities.? The septum and apex are akinetic.? Overall EF 10-15% maximum. 3. RV size looked normal to me 4. 2-3 + TR by color-flow.? CWD signal measured 2.5 m/s (gradient 25mm). 5. IVC measured 2.4 cm, with minimal inspiratory collapse.? Estimated CVP 15 mm.? Estimated RVSP 40mm. We switched her from Coumadin to a heparin infusion (bec of mechanical MV) on 04/08.? That day, she went on HD.? The Levophed requirement jeff significantly during HD, despite albumin infusion.? At about 3:45 hours into the session, she started having ventricular ectopy.? Thereafter, her heart rate jeff into the 140s, at which point we ended the dialysis session; only 1.5L taken off.? Her HR and Levophed requirement came down.? About 1 hour later, the morphology of her bedside monitor tracing changed.? An EKG showed lateral ST segment elevation suggestive of acute VA.? Discussed with Dr. Estrella.? She was already on heparin infusion.? We added aspirin and statin.? Troponin came back at 1185, but the repeat wa down to 1009.? Her Levophe dose was stable. The patient has been off propofol since 04/07.? On fent 50ug, she opens eyes easily to command, inconsistently tracks slightly, but does not respond to my commands.? Heart rate is 103, in chronic atrial fibrillation, on diltiazem 30mg q6.? Blood pressure is 90/51 on Levophed 0.2ug.? On assist control 12/350/25%/+5, RR is 12, Ve 5L, PIP 28cm, ETCO2 28mm, Sat 95%.? This morning's CVBG showed 7.30/40/-5.? Tmax 100.6 early this morning.? Obvious prosthetic left eye.? No JVD at 30?.? Chest CTA with normal exp phase.? Right chest tube was clamped yesterday.? No major crepitus at the site.? We pulled the catheter and covered with iodoform dressing.? She is leaking serous fluid at the site.? Irregular rate and rhythm, soft heart tones, audible click of her mitral valve.? Abdomen is flat and benign.? She has at least 3+ central edema. The patient has a 1 x 2 inch pupuric unstageable DTI on her coccyx. LABORATORY DATA:? As below.? Notably, WBC steady at 24, InR 1.3 after no Coumadin.? BUN/creatinine down to 63/4.3 after yesterday?s HD, with potassium down to 3.8, bicarb 20, phos 4.7.? Albumin 2.2. MICROBIOLOGY:? Sputum Gram stain yesterday morning:? 3+ polys, 3+ red blood cells, No organisms seen. CXR this afternoon (f/u PTX):? No PTX.? Looks like less SQ emphysema at the right chest catheter insertion site. IMPRESSION: 1. Underlying severe dilated biventricular ischemic CMOP. 2. Underlying CAD w echo evidence of previous VA. 3. Underlying mechanical prosthetic MV.? Needs anticoagulation.? Holding Coumadin while she is critically ill, switched to heparin. 4. Underlying Chronic afib.? Controlled now w ditiazem.? Hesitant to use beta- hubert because of severe cardiomyopathy. 5. Underlying hypothyroidism.? Continue thyroid. 6. Acute hypercarbic & hypoxemic resp failure.? 2? exac of chronic systolic h eart failure.? She?s undoubtedly still volume overloaded.? Plan to retry dialysis tomorrow, then we?ll see how she does with pressure support ventilation. 7. Hypotension.? Most likely 2? combination of severe CMOP and acute renal failure.? Lactate and blood cultures are negative. ?Continue midodrine.? Target BP is 90 systolic, or MAP about 60. 8. Acute on chronic renal failure.? Likely secondary to ATN.? It is likely that she will require permanent hemodialysis henceforth, if she survives.? The daughter is aware. 9. ID.? New left lung infiltrates on 04/06.? Most likely 2? aspiration pneumoni a.? FiO2 down to 25% now, afebrile, but WBC still high.? Will d/c Zosyn today (no evidence that it?s doing anything).? A-a gradient is close to normal. 10. Acute ischemic event yesterday morning.? Troponin was inconsistent with Acute VA.? No obvious residual hemod sequelae.? She?s on heparin, ASA, statin.? Otherwise nothing to do (not a candidate for a cath).? But this makes us cautious about attempts to dialyze her, unless she has a clear metabolic need.? And she had no response to attempts at diuresis with Lasix and Diuril. 11. Right-sided pneumothorax.? Resolved.? She?s draining pleural effusion fluid from the site.? Recheck CXR in the morning. 12. DTI Coccyx. 13. Nutrition:? Severe PCM.? 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 Will have a substantial impact on her survivability.? On Nepro at 40cc. 14. Poor IV access:? Changed her double lumen dialysis catheter to a triple lumen catheter on 04/07. Daughter Yeny cell phone:? [phone]. Spoke with her again today at the bedside about her mother?s current condition and treatment. Prognosis is grave.? Likelihood of surviving this hospitalization is less than 50:50.? One year mortality from here approaches 90%. Critical care time: ?70+ min. Critical Care Time (minutes): 70 Physical Exam Vital Signs: Vital Signs: Last Vital Signs Temp 99.5 F 04/09/22 19:00 Pulse 103 H 04/09/22 19:00 Resp 12 04/09/22 19:00 BP 75/48 L 04/09/22 19:30 Pulse Ox 94 04/09/22 19:00 BMI result Body Mass Index 25.5 Objective Data Labs CBC & Chem 7: 04/09/22 05:23 04/09/22 05:23 Labs: Laboratory Results - last 24 hr 04/08/22 04/08/22 04/09/22 23:54 23:54 05:23 WBC RBC Hgb 8.6 L Hct 26.1 L MCV MCH MCHC RDW Plt Count MPV Absolute Nucleated RBC Nucleated RBC % (auto) PT 14.7 H INR 1.3 H APTT aPTT Heparin Protocol VBG pH VBG pCO2 VBG pO2 VBG HCO3 VBG O2 Saturation VBG Base Excess Sodium Potassium Chloride Carbon Dioxide Anion Gap BUN Creatinine Estim Creat Clear Calc Estimated GFR Random Glucose Lactic Acid Calcium Phosphorus Magnesium Troponin I High Sens 1061.7 H* Albumin 04/09/22 04/09/22 04/09/22 05:23 05:23 05:23 WBC 24.3 H RBC 3.03 L Hgb 9.0 L Hct 28.1 L MCV 92.7 MCH 29.7 MCHC 32.0 RDW 17.9 H Plt Count 165 MPV 11.2 Absolute Nucleated RBC 0.000 Nucleated RBC % (auto) 0.0 PT INR APTT aPTT Heparin Protocol VBG pH VBG pCO2 VBG pO2 VBG HCO3 VBG O2 Saturation VBG Base Excess Sodium 134 L Potassium 3.8 Chloride 103 Carbon Dioxide 20 L Anion Gap 15 BUN 63 H Creatinine 4.30 H* Estim Creat Clear Calc 12.7 Estimated GFR 10 Random Glucose 93 Lactic Acid 0.9 Calcium 7.4 L Phosphorus 4.7 H Magnesium 2.1 Troponin I High Sens Albumin 2.2 L 04/09/22 04/09/22 04/09/22 05:23 05:26 10:10 WBC RBC Hgb Hct MCV MCH MCHC RDW Plt Count MPV Absolute Nucleated RBC Nucleated RBC % (auto) PT INR APTT Cancelled aPTT Heparin Protocol 39.6 L VBG pH 7.30 L VBG pCO2 40 VBG pO2 82 VBG HCO3 20 L VBG O2 Saturation 93.0 VBG Base Excess -5.4 Sodium Potassium Chloride Carbon Dioxide Anion Gap BUN Creatinine Estim Creat Clear Calc Estimated GFR Random Glucose Lactic Acid Calcium Phosphorus Magnesium Troponin I High Sens 1045.5 H* Albumin Microbiology Microbiology Results: Microbiology 04/07/22 15:15 Blood - Venous Blood Culture - Preliminary No growth after 48 hours. 04/07/22 15:15 Blood - Venous Blood Culture - Preliminary No growth after 48 hours. 04/08/22 10:43 Sputum - Suctioned Gram Stain - Final 04/08/22 10:43 Sputum - Suctioned Sputum Culture - Preliminary Culture in progress. 04/03/22 11:30 Thoracentesis Fluid Gram Stain - Final 04/03/22 11:30 Thoracentesis Fluid Anaerobic Culture - Final NO GROWTH AFTER 5 DAYS 04/03/22 11:30 Thoracentesis Fluid Body Fluid Culture - Final No growth after 2 days Quality Stroke Does the patient have a stroke diagnosis?: No VTE Prior VTE?: No VTE Risk Level:: Medical - moderate - high VTE Device Contraindication: N/A - Device Ordered VTE Drug Contraindication: N/A - Med Ordered Critical Care Time Critical Care Time (minutes): 60
[2022-04-09] MEDS: Heparin Sodium,Porcine 5,000 UNIT/ML VIAL 2000 UNIT IVPUSH (21:50)
[2022-04-09] MEDS: Heparin Sodium,Porcine/1/2NS 25,000 UNIT/250 ML IV.SOLN 7.85 UNIT IVCONT (21:51)
[2022-04-09] MEDS: Metoclopramide HCl 10 MG/2 ML VIAL IVPUSH (22:12)
[2022-04-09] MEDS: fentaNYL citrate/PF 100 MCG/2 ML VIAL 50 MCG IVPUSH (23:53)
[2022-04-10] VITALS (29 sets, daily range): BP systolic 83–131; BP diastolic 46–65; PULSE 95–110; RESP 12–41; TEMP 34.5–37.7; O2SAT 92–96; BMI 24.7
--- NOTE | 2022-04-10 00:30 | PC.NURSE ---
Addendum entered by Torrie Martino RN 04/10/22 07:16: Ptt-hd 47.4, EMILIANA Mckeon and Dr Delgado made aware. No new orders at this time, to continue gtt at 10 units/kg/hr. Original Note: Pt becoming more awake, frequently overbreathing vent, switched to SIMV setting by RT. EMILIANA Mckeon aware. Pt resting comfortably, fentanyl at 50 mcg/hr. Heparin gtt started at [address] Delgado, ptt-hd ordered for 0500.
[2022-04-10] MEDS: dilTIAZem HCL 30 MG TABLET OG-TUBE ×5 (00:31→23:53)
[2022-04-10 05:33] LABS: VBG HCO3 16 mmol/L (22-26); VBG pCO2 31 mmHg; VBG pH 7.33 (7.32-7.43); VBG pO2 50 mmHg
[2022-04-10] MEDS: Lactulose 20 GM/30 ML SOLUTION PO ×5 (05:46→23:53)
[2022-04-10] MEDS: Midodrine HCl 10 MG TABLET OG-TUBE ×3 (05:49→23:53)
[2022-04-10] MEDS: Levothyroxine Sodium 112 MCG, Levothyroxine Sodium 25 MCG 137 MCG PO (05:49)
[2022-04-10 05:53] LABS: Hematocrit 27.2 % (37.0-47.0); Hemoglobin 8.7 g/dl (12.0-16.0); Mean Corpuscular Volume 93.8 fL (80.0-98.0); Mean Platelet Volume 11.7 fL (9.4-12.3); Platelet Count 130 X10*3/uL (160-400); Red Cell Distribution Width 18.1 % (11.0-16.0); White Blood Count 25.4 X10*3/uL (4.8-10.8)
[2022-04-10 06:02] LABS: PTT Heparin Drip 47.4 SEC (53-77.9)
[2022-04-10 06:14] LABS: B Type Natriuretic Peptide 2556 pg/mL (<100)
[2022-04-10 06:18] LABS: Albumin Level 1.8 g/dL (3.5-5.0); Anion Gap 17 (12-20); Blood Urea Nitrogen 74 mg/dL (9-16); Calcium 7.2 mg/dL (8.4-10.2); Carbon Dioxide 18 mmol/L (22-29); Chloride 103 mmol/L (96-108); Creatinine Clr Calc Pharmacy 11.1; Estimated Glomerular Filt Rate 9; Glucose Random 81 mg/dL (60-115); Phosphorus 5.7 mg/dL (2.7-4.5); Potassium 4.6 mmol/L (3.3-5.1); Sodium 133 mmol/L (135-145)
[2022-04-10 06:36] LABS: Venous Blood Gas Refer to POC result
[2022-04-10] MEDS: fentaNYL citrate/NS 1,000 MCG/100 ML PLAST..BAG 5 MCG IVCONT ×2 (07:45→23:54)
[2022-04-10] MEDS: 0.9 % Sodium Chloride Flush 3 ML SYRINGE IVFLUSH ×3 (07:47→23:48)
--- NOTE | 2022-04-10 09:31 | P.CDIC_ITS ---
CDI Concurrent Query Documentation Clarification: PHYSICIAN'S DOCUMENTATION REQUEST Date of Query: 04/10/22 0933 Patient Name: America Dooley Admit Date: 03/15/22 Dear Doctor, A review of the medical record indicates additional documentation may be needed. Please review below and update the documentation accordingly. Risk Factors/Clinical Indicators/Treatments MD progress note 04/08/22: Unstageable deep tissue injury coccyx Based on the above, could you clarify in the Progress Notes the appropriate diagnosis, if significant, that supports the above abnormalities and additional evaluation, monitoring, and/or treatment rendered: * Please specify the cause of the deep tissue injury * Other (please specify) * Unable to determine Use of terms such as suspected, likely, concern for, or probable (associated with a specific diagnosis that is being evaluated, monitored, or treated as if it exists) are acceptable and can be coded in the inpatient setting, when documented at the time of discharge. Thank you, Maile Brush RN Extension: [phone] Please use your independent medical judgment in providing your response. THIS QUERY IS PART OF THE PERMANENT MEDICAL RECORD
--- NOTE | 2022-04-10 10:52 | PM.PNNEP ---
Subjective Subjective Date of Service: 04/10/22 Principal diagnosis: acute on chronic CHF, hematuria, mechanical Mitral valve Interval history: Chart Reviewed. Events noted. Physical Exam Vital Signs: Vital Signs: Last Vital Signs Temp 98.6 F 04/10/22 10:00 Pulse 97 04/10/22 10:00 Resp 12 04/10/22 10:00 BP 102/60 04/10/22 10:00 Pulse Ox 95 04/10/22 10:00 BMI result Body Mass Index 24.7 Const: General: no acute distress HEENT: Head: Yes normocephalic Neck: Neck: Yes no JVD Resp: Auscultation: crackles Cardio: Jugular venous distension: no JVD Rhythm: abnormal rhythm GI: Auscultation: normal bowel sounds Neuro: Other: Sedated Extrem: General: Yes no joint enlargement and Yes no clubbing, cyanosis or edema Objective Data Labs CBC & Chem 7: 04/10/22 05:27 04/10/22 05:27 Labs: Laboratory Results - last 24 hr 04/09/22 04/10/22 04/10/22 10:10 05:24 05:27 WBC 25.4 H RBC 2.90 L Hgb 8.7 L Hct 27.2 L MCV 93.8 MCH 30.0 MCHC 32.0 RDW 18.1 H Plt Count 130 L MPV 11.7 Absolute Nucleated RBC 0.000 Nucleated RBC % (auto) 0.0 APTT Cancelled aPTT Heparin Protocol 39.6 L VBG pH 7.33 VBG pCO2 31 VBG pO2 50 VBG HCO3 16 L VBG O2 Saturation 79.0 VBG Base Excess -8.0 Sodium Potassium Chloride Carbon Dioxide Anion Gap BUN Creatinine Estim Creat Clear Calc Estimated GFR Random Glucose Calcium Phosphorus Magnesium B-Natriuretic Peptide Albumin 04/10/22 04/10/22 04/10/22 05:27 05:27 05:27 WBC RBC Hgb Hct MCV MCH MCHC RDW Plt Count MPV Absolute Nucleated RBC Nucleated RBC % (auto) APTT aPTT Heparin Protocol 47.4 L VBG pH VBG pCO2 VBG pO2 VBG HCO3 VBG O2 Saturation VBG Base Excess Sodium 133 L Potassium 4.6 D Chloride 103 Carbon Dioxide 18 L Anion Gap 17 BUN 74 H Creatinine 4.94 H* Estim Creat Clear Calc 11.1 Estimated GFR 9 Random Glucose 81 Calcium 7.2 L Phosphorus 5.7 H Magnesium 2.0 B-Natriuretic Peptide 2556 H Albumin 1.8 L Microbiology Microbiology Results: Microbiology 04/08/22 10:43 Sputum - Suctioned Gram Stain - Final 04/08/22 10:43 Sputum - Suctioned Sputum Culture - Final 04/07/22 15:15 Blood - Venous Blood Culture - Preliminary No growth after 48 hours. 04/07/22 15:15 Blood - Venous Blood Culture - Preliminary No growth after 48 hours. 04/03/22 11:30 Thoracentesis Fluid Gram Stain - Final 04/03/22 11:30 Thoracentesis Fluid Anaerobic Culture - Final NO GROWTH AFTER 5 DAYS 04/03/22 11:30 Thoracentesis Fluid Body Fluid Culture - Final No growth after 2 days Procedures Date of Service Date of Service: 04/10/22 Assessment & Plan Assessment and plan (1) CKD (chronic kidney disease) stage 5, GFR less than 15 ml/min: Status: Acute Assessment and Plan: 1. ALIZA on adv CKD now prog to ESRD and HD started 04/05. UF performed on 04/06. HD on 04/08 however patient became hypotensive and tachycardic. HD stopped early. Would hold off on additional HD. Suggest lokelma 10 G prn K> 5.0. 2. Resp Failure: events noted--s/p thoracentesis and now on vent 3. Anemia 4. MBD of CKD-will add sevelamer tid. 5. SOB critically ill Overall prognosis poor given severity card dysfunc and malnourished state (2) Pleural effusion: Status: Acute (3) Acute respiratory failure: Status: Acute Time Spent With Patient Time: Total time spent is greater than 50% in coordination of care (as documented) at patient's floor/unit and/or counseling patient: Progress Note: Quality Stroke Does the patient have a stroke diagnosis?: No
--- NOTE | 2022-04-10 10:57 | HE.PHANOTE ---
Heparin Infusion Management The ICU provider will manage the heparin infusion beginning today 10 April 2022 and will not be using a standard protocol due to the currently challenging issue regarding the need for full anticoagulation for suspected LA and mechanical valve versus bleeding issues. ~Gladys Reyes PharmD, BCPS, BCCCP [phone]
[2022-04-10] MEDS: Aspirin 81 MG TAB.CHEW G-TUBE (10:59)
[2022-04-10] MEDS: Atorvastatin Calcium 40 MG TABLET G-TUBE (10:59)
[2022-04-10] MEDS: Metoclopramide HCl 10 MG/2 ML VIAL 5 MG IVPUSH ×3 (10:59→20:39)
[2022-04-10] MEDS: Artificial Tears 15 ML DROPS 1 DROP EYE-BOTH ×3 (11:00→20:39)
[2022-04-10] MEDS: Chlorhexidine Gluc Oral Rinse 15 ML MOUTHWASH BUCCAL ×3 (11:00→20:39)
--- NOTE | 2022-04-10 13:17 | MHC.CM.PN ---
Pt continues care in ICU: vented and on pressors with HD initiation: Pt is s/p STEMI from 04/08. Per discussion with ICU care team: pt's prognosis is poor and d/c planning needs remain undetermined pending clinical improvement. Pt had lived with family prior to admission. Pt may need trach/peg placement which would necessitate LTAC placement. CM to follow
--- NOTE | 2022-04-10 15:50 | P.PNCC_ITS ---
Subjective Subjective Date of Service: 04/10/22 Interval History: Mrs. Dooley was transferred to the ICU on April 06 [facility] of hypercapnic and hypoxemic resp failure failure for BiPAP, and subsequently required emergent tracheal intubation. 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 ECHO 08/2021 showed:? Severely dilated CMOP.? Normal LV wall thickness. ?LV systolic function severely decreased, EF15-20%. ?Mildly increased RV cavity size w mild-moderately decreased function.? Normal mechanical prosthetic MV fxn.? Severe biatrial enlargement.? Mod-severe TR with dilated, poorly collapsing IVC, RVSP 49mm. Her daughter Yeny told me about her functional status:? Mrs. Garza moved in w her daughter and the daughter?s this past July she needed more care.? Yeny works as her mother?s healthcare network consultant, and is the HCP.? Mrs. Garza walks w a walker.? She gets out of the house a few days a week.? Yeny helps her bathe and dress.? She is independent with eating and toileting.? The patient considered her quality of life to be satisfactory.? Yeny told me that the patient had had discussions with her kidney doctor in regards to the fact that dialysis was likely coming in the future.? She filled out a MOLST form in 09/2021 designating full support. HISTORY OF PRESENT ILLNESS:? The patient was admitted to [facility] 03/15/2022 with dyspnea secondary to heart failure exacerbation.? Hospital course was complicated by urinary retention with traumatic wilson placement resulting in hematuria requiring transfusion of total 9 units RBCs, culminating in cystoscopy w fulgaration for bleeding control on 03/24; development of right-sided pleural effusion, s/p therapeutic thoracentesis 1.2 L on April 03; and progressive renal failure initiated on hemodialysis on 04/05/2022 via Left IJ temp dialysis catheter (instead of permcath bec of elevated INR) On 04/06 the patient developed lethargy, hypoxemia and for hypercarbia.? She was put on BiPAP and transferred to ICU.? CXR showed reaccumulation of right-sided pleural effusion and new infiltrates on the left, thought secondary to aspiration.? Right thoracentesis removed 800 cc of serosanguineous fluid, but without improvement in her respiratory status.? The patient was emergently intubated.? Of note, during the thoracentesis, the patient had a 13 second run of VT (at a rate of 137/min) that self-terminated without a shock from her device.? The patient was started on Zosyn for empiric pulmonary aspiration coverage. The post-intubation CXR reading missed a right basilar pneumothorax, which was undetected until a film done later that night after OGT placement showed a large tension PTX.? A pigtail drainage catheter was placed which, after repositioning, drained the entire hydropneumothorax.? The patient was not dialyzed that day because of hemodynamic instability. My bedside ECHOCARDIOGRAM for hemodynamic monitoring on April 07 showed: 1. Normal LV wall thickness 2. LV is at least mildly dilated with severe systolic dysfunction, and marked regional wall motion abnormalities.? The septum and apex are akinetic.? Overall EF 10-15% maximum. 3. RV size looked normal to me 4. 2-3 + TR by color-flow.? CWD signal measured 2.5 m/s (gradient 25mm). 5. IVC measured 2.4 cm, with minimal inspiratory collapse.? Estimated CVP 15 mm.? Estimated RVSP 40mm. For anticoagulation for her mechanical valve, we switched her from Coumadin to a heparin infusion (in case of need for rapid reversal).? On April 08, she underwent her second HD.? The Levophed requirement jeff significantly during HD, despite albumin infusion.? Towards the end, she started having ventricular ectopy, then tachycardia, at which point we ended the dialysis session; only 1.5L taken off.? Her HR and Levophed requirement came down.? About 1 hour later, the morphology of her bedside monitor tracing changed.? An EKG showed lateral ST segment elevation suggestive of acute CO.? Discussed with Dr. Estrella.? She was already on heparin infusion.? We added aspirin and statin.? Troponin came back at 1185, but the repeat trop was down to 1009.? Her Levophed dose was stable (i.e. no apparent hemodynamic sequellae). Heparin was held yesterday morning.? The afternoon CXR showed no PTX (my r eading). ?The right chest tube was pulled in the afternoon.? Yesterday evening she had some serous drainage from the site. ?Heparin was restarted last night at a fixed dose of 10u/kg/hr.? No drainage today.? This morning?s PTT was 47.? The heparin drip was increased to a fixed dose of 11 units/kg/hr.? PTT this afternoon is 50.? Haven?t had bloody tracheal secretions in about 36 hrs. The patient has been off propofol since 04/07.? On fent 50ug, she opens eyes easily to command.? This is the first day that she?s clearly made eye contact and fairly consistently responded appropriately to questions with a nod of her head.? She?s extraordinarily weak.? Heart rate is 103, in chronic atrial fibrillation, on diltiazem 30mg q6.? BP 106/55, on Levophed 0.24ug.? On assist control 6/350/25%/+5, RR is 20, Ve 7.4L, PIP 27cm, ETCO2 27mm, Sat 96%.? This morning's CVBG showed 7.33/31/-8.? Afebrile.? Obvious prosthetic left eye.? No JVD at 30?.? Chest CTA with normal exp phase? No major crepitus at the site.? Irregular rate and rhythm, soft heart tones, audible click of her mitral valve.? Abdomen is flat and benign.? She has at least 3+ central edema. The patient has a 1 x 2 inch pupuric unstageable DTI on her coccyx.? Yesterday she was having high residuals.? We shut the tube feed off and gave her Reglan.? This morning residuals are minimal.? We also started her on lactulose q6hr pending a BM. We tried putting her on PSV.? With PSV 20cm, tidal vols were about 290, RR jeff to high 20?s, Ve jeff to 9-10L.? At PSV 25 cm, Vt was 350-380, Ve still 9L.? We discontinued the trial, put her back on AC. LABORATORY DATA:? As below.? Notably, WBC steady at 25, BUN/creatinine up to 74/4.9, with potassium up to 4.6, bicarb down to 18, phos up to 5.7.? Albumin down to 1.8. MICROBIOLOGY:? No positive cultures. CXR this morning (f/u PTX):? Read by the radiologist as showing a trivial apical right PTX.? I don?t see it. ?Trivial SQ emphysema at the right chest catheter insertion site.? Left lung looks improved. IMPRESSION: 1. Underlying severe dilated biventricular ischemic CMOP.? IMO, that is the source of all her other problems, including the renal failure and difficulty with dialysis, the resp failure, and the cachexia.? This does not appear remediable. 2. Underlying CAD w echo evidence of previous CO. 3. Underlying mechanical prosthetic MV.? Needs anticoagulation.? Holding Coumadin while she is critically ill, switched to heparin. 4. Underlying Chronic afib.? Controlled now w ditiazem.? Hesitant to use beta- hubert because of severe cardiomyopathy. 5. Underlying hypothyroidism.? Continue thyroid. 6. Acute hypercarbic & hypoxemic resp failure.? 2? exac of chronic systolic heart failure.? She?s undoubtedly still volume overloaded.? Plan to retry dialysis tomorrow. 7. Hypotension.? Most likely 2? combination of severe CMOP and acute renal failure.? Lactate and blood cultures are negative. ?Continue midodrine.? Target BP is 90 systolic, or MAP about 60. 8. Acute on chronic renal failure.? Likely secondary to ATN.? It is likely that she will require permanent hemodialysis henceforth, if she survives.? The daught er is aware.? Plan is to retry HD tomorrow.? In the meantime, tonight I will give her a large diuretic trial (Bumex 4mg with diuril 500mg) to prove that she?s not responsive.? She had no response to a diuretic trial on 04/07. 9. ID.? New left lung infiltrates on 04/06.? Most likely 2? aspiration pneu monia.? FiO2 down to 25% now, afebrile, but WBC still high.? D/c?d the Zosyn yesterday (no evidence that it was doing anything).? Asked Dr. Yo to see her about the persistent leukocytosis. 10. Acute ischemic event after HD on 04/08 (lateral ST elevation), but troponin pattern was inconsistent with acute CO.? No obvious residual hemod sequelae.? She?s on heparin, ASA, statin.? Otherwise nothing to do (not a candidate for a cath).? But this makes us cautious about attempts to dialyze her, unless she has a clear metabolic need. 11. Right-sided pneumothorax.? Resolved.? I expect her to reaccumulate her right pleural effusion. 12. Probable ICU myopathy.? Looks like she would need a tracheostomy 13. DTI Coccyx.? Likely a pressure injury 2? deficient skin blood flow and poor tissue quality due to PCM.? In a patient like this, I don?t believe that pressure wounds are practically avoidable. 14. Nutrition:? Severe PCM.? 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 Will have a substantial impact on her survivability.? Dropped her Nepro feed rate to 10cc/hr while we get her laxation in order.? Gave her 24 hrs Reglan, no changed to prn. 15. Laxation.? Lactulose.? Waiting for a BM. 16. Poor IV access:? Changed her double lumen dialysis catheter to a triple lumen catheter on 04/07. Daughter Yeny cell phone:? [phone]. Spoke with her again today at the bedside about her mother?s current condition and treatment. Prognosis is grave.? Likelihood of surviving this hospitalization is looking more and more grim.? Furthermore, looks like she?ll need tracheostomy to get off the ventilator.? One year mortality from here appears > 90%. Critical Care Time (minutes): 70 Physical Exam Vital Signs: Vital Signs: Last Vital Signs Temp 98.8 F 04/10/22 15:00 Pulse 104 H 04/10/22 15:00 Resp 15 04/10/22 15:00 BP 98/49 L 04/10/22 15:00 Pulse Ox 96 04/10/22 15:00 BMI result Body Mass Index 24.7 Objective Data Labs CBC & Chem 7: 04/10/22 05:27 04/10/22 05:27 Labs: Laboratory Results - last 24 hr 04/10/22 04/10/22 04/10/22 05:24 05:27 05:27 WBC 25.4 H RBC 2.90 L Hgb 8.7 L Hct 27.2 L MCV 93.8 MCH 30.0 MCHC 32.0 RDW 18.1 H Plt Count 130 L MPV 11.7 Absolute Nucleated RBC 0.000 Nucleated RBC % (auto) 0.0 aPTT Heparin Protocol VBG pH 7.33 VBG pCO2 31 VBG pO2 50 VBG HCO3 16 L VBG O2 Saturation 79.0 VBG Base Excess -8.0 Sodium 133 L Potassium 4.6 D Chloride 103 Carbon Dioxide 18 L Anion Gap 17 BUN 74 H Creatinine 4.94 H* Estim Creat Clear Calc 11.1 Estimated GFR 9 Random Glucose 81 Calcium 7.2 L Phosphorus 5.7 H Magnesium 2.0 B-Natriuretic Peptide Albumin 1.8 L 04/10/22 04/10/22 05:27 05:27 WBC RBC Hgb Hct MCV MCH MCHC RDW Plt Count MPV Absolute Nucleated RBC Nucleated RBC % (auto) aPTT Heparin Protocol 47.4 L VBG pH VBG pCO2 VBG pO2 VBG HCO3 VBG O2 Saturation VBG Base Excess Sodium Potassium Chloride Carbon Dioxide Anion Gap BUN Creatinine Estim Creat Clear Calc Estimated GFR Random Glucose Calcium Phosphorus Magnesium B-Natriuretic Peptide 2556 H Albumin Microbiology Microbiology Results: Microbiology 04/08/22 10:43 Sputum - Suctioned Gram Stain - Final 04/08/22 10:43 Sputum - Suctioned Sputum Culture - Final 04/07/22 15:15 Blood - Venous Blood Culture - Preliminary No growth after 48 hours. 04/07/22 15:15 Blood - Venous Blood Culture - Preliminary No growth after 48 hours. 04/03/22 11:30 Thoracentesis Fluid Gram Stain - Final 04/03/22 11:30 Thoracentesis Fluid Anaerobic Culture - Final NO GROWTH AFTER 5 DAYS 04/03/22 11:30 Thoracentesis Fluid Body Fluid Culture - Final No growth after 2 days Quality Stroke Does the patient have a stroke diagnosis?: No VTE Prior VTE?: No VTE Risk Level:: Medical - moderate - high VTE Device Contraindication: N/A - Device Ordered VTE Drug Contraindication: N/A - Med Ordered Critical Care Time Critical Care Time (minutes): 60
[2022-04-10 16:06] LABS: PTT Heparin Drip 49.8 SEC (53-77.9)
[2022-04-10] MEDS: Chlorothiazide Sodium 500 MG VIAL IVPUSH (18:01)
[2022-04-10] MEDS: propofoL 1,000 MG/100 ML VIAL 3.73 MG IVCONT (18:05)
--- NOTE | 2022-04-10 18:46 | PC.NURSE ---
STA[facility] OUTPUT FROM [id number] = 5 ML - MD AWARE MD ORDERED AND ADMINISTERED BUMEX 4 MG X 1 AND DIURIL 500 MG X 1 - EFFECTS PENDING TUBE FEEDS REMAIN AT 10 ML/HR UNTIL BM - NO BM THIS SHIFT. PATIENT BECAME RESTLESS - PROPOFOL GTT RESTARTED PER MD AT 10 MCG/KG/MIN - SEE EMAR.
--- NOTE | 2022-04-10 21:32 | W.PM.IDCN ---
History of Present Illness Data of Consult Service Date: 04/10/22 Requesting physician: Junior Dlegado Primary Care Provider: MD RD Hargrove Reason for consult: leukocytosis She presents to hospital with nonproductive cough as well as nausea and vomiting. She has 2/10 epigastric pain as well. She has some shortness of breath as well. She has leukocytosis from 12,000 to 25,000 from 04/06 to 04/07. She has some infiltrates. Review of Systems Review of Systems: Yes unobtainable due to endotracheal tube PMFSH Past Medical History Medical History (Updated 04/10/22 @ 21:38 by Gaye Yo MD) Acute on chronic heart failure with reduced ejection fraction and diastolic dysfunction Amyloidosis Amyloidosis Anemia Arthritis Bladder hypertonicity CHF (congestive heart failure) Chronic atrial fibrillation Chronic heart failure with reduced ejection fraction and diastolic dysfunction Chronic HFrEF (heart failure with reduced ejection fraction) Chronic kidney disease (CKD) stage G4/A1, severely decreased glomerular filtration rate (GFR) between 15-29 mL/min/1.73 square meter and albuminuria creatinine ratio less than 30 mg/g CKD (chronic kidney disease) stage 4, GFR 15-29 ml/min Detached retina Gout Hematuria Hematuria Hemorrhoids with complication History of breast cancer HTN (hypertension) Hypercholesterolemia Hypothyroid ICD (implantable cardioverter-defibrillator) in place Ischemic cardiomyopathy Leukocytosis Low back pain Nephrolithiasis Osteoarthritis Overweight (BMI 25.0-29.9) Pulmonary hypertension Renal cyst Thumb tendonitis Tricuspid regurgitation Urinary incontinence Family History Family History Mother Diabetes Father Past heart attack Diabetes Sister Parkinsons disease Family history: reviewed and not pertinent Surgical History Surgical History H/O abdominal hysterectomy H/O mitral valve replacement H/O mitral valve replacement with mechanical valve History of bunionectomy History of cataract surgery History of colonoscopy History of left inguinal hernia repair History of sleeve gastrectomy Mechanical heart valve present Social History Social History Household Members: Children Household Members Other:: daughter Housing: House Do you presently have visiting nurse or other home services: Yes ([facility]) Alcohol intake: never Patient Tobacco Use Status: Never used Tobacco Tobacco use type: Cigarette e-Cigarette/Vaping Use: Never Used Second Hand Smoke Exposure: No Advance Directives Date on File: 02/22/22 service: No Current occupational status: retired Current occupation: left handed Cognitive needs: No Hearing needs: No Vision needs: No Meds Allergies Allergy/AdvReac Type Severity Reaction Status Date / Time TAPE,PAPER Allergy Unknown RASH TO Uncoded 03/13/22 14:54 PAPER TAPE Active Medications: Current Medications Artificial Tears (Artificial Tears 15 Ml Drops) 1 drop EYE-BOTH TID [facility] Last Admin: 04/10/22 20:39 Dose: 1 drop Documented by: Aspirin (Aspirin 81 Mg Tab.Chew) 81 mg G-TUBE DAILY NADINE Last Admin: 04/10/22 10:59 Dose: 81 mg Documented by: Atorvastatin Calcium (Atorvastatin Calcium 40 Mg Tablet) 40 mg G-TUBE DAILY NADINE Last Admin: 04/10/22 10:59 Dose: 40 mg Documented by: Chlorhexidine Gluconate (Chlorhexidine Gluc Oral Rinse 15 Ml Mouthwash) 15 ml BUCCAL TID NADINE Last Admin: 04/10/22 20:39 Dose: 15 ml Documented by: Diltiazem HCl (Diltiazem Hcl 30 Mg Tablet) 30 mg OG-TUBE Q6H NADINE; Protocol Last Admin: 04/10/22 18:01 Dose: 30 mg Documented by: Fentanyl (Fentanyl Citrate/Pf 100 Mcg/2 Ml Vial) 50 mcg IVPUSH Q5M PRN; Protocol PRN Reason: pain or WOB Last Admin: 04/09/22 23:53 Dose: 50 mcg Documented by: Propofol (Diprivan) 1,000 mg in 100 mls @ 0 mls/hr IVCONT .Q0M NADINE; Protocol Last Admin: 04/10/22 18:05 Dose: 10 mcg/kg/min, 3.73 mls/hr Documented by: Norepinephrine Bitartrate (Levophed) 8 mg in 250 mls @ 0 mls/hr IVCONT .Q0M NADINE; Protocol Last Admin: 04/10/22 15:33 Dose: 0.3 mcg/kg/min, 34.93 mls/hr Documented by: Fentanyl (Sublimaze/Ns) 1,000 mcg in 100 mls @ 0 mls/hr IVCONT .Q0M NADINE; Protocol Last Titration: 04/10/22 11:47 Dose: 50 mcg/hr, 5 mls/hr Documented by: Heparin Sodium/Sodium Chloride () 25,000 unit in 250 mls @ 7.85 mls/hr IVCONT .Q24H [facility] Last Infusion: 04/10/22 09:53 Dose: 11 unit/kg/hr, 8.64 mls/hr Documented by: Lactulose (Lactulose 20 Gm/30 Ml Solution) 20 gm PO Q4H [facility] Last Admin: 04/10/22 18:01 Dose: 20 gm Documented by: Levothyroxine Sodium 112 mcg/ (Levothyroxine Sodium 25 mcg) 137 mcg PO DAILY@0600 [facility] Last Admin: 04/10/22 05:49 Dose: 137 mcg Documented by: Metoclopramide HCl (Metoclopramide Hcl 10 Mg/2 Ml Vial) 5 mg IVPUSH Q6H [facility] Stop: 04/11/22 03:01 Last Admin: 04/10/22 20:39 Dose: 5 mg Documented by: Midodrine (Midodrine Hcl 10 Mg Tablet) 10 mg OG-TUBE Q8H [facility] Last Admin: 04/10/22 15:35 Dose: 10 mg Documented by: Omeprazole (Omeprazole 20 Mg/10 Ml Susp.Recon) 40 mg OG-TUBE DAILY@0630 [facility] Last Admin: 04/10/22 05:46 Dose: 40 mg Documented by: Sodium Chloride (0.9 % Sodium Chloride Flush 3 Ml Syringe) 3 ml IVFLUSH QSHIFT [facility] Last Admin: 04/10/22 15:40 Dose: 3 ml Documented by: Home Medications Medication Instructions Recorded Confirmed Last Taken Type acetaminophen 325 mg capsule 325 mg PO QID PRN 08/06/20 03/15/22 10/09/21 History (Tylenol) artifi.tears(hypromellose)(PF) 0.3 1 drp OPHTHALMIC (EYE) TID 09/03/21 03/15/22 10/21/21 History % eye drops calcium 750 mg PO DAILY 10/09/21 03/15/22 03/14/22 History rosuvastatin 10 mg tablet 10 mg PO BEDTIME 10/21/21 03/15/22 03/14/22 History trazodone 50 mg tablet 50 mg PO BEDTIME PRN 10/21/21 03/15/22 03/14/22 History warfarin 2.5 mg tablet 2.5 mg PO .COMPLEX 02/25/22 03/13/22 Unknown History docusate sodium 100 mg capsule 200 mg PO BEDTIME 03/15/22 03/15/22 03/14/22 History fluoxetine 20 mg capsule 40 mg PO DAILY 03/15/22 03/15/22 03/14/22 History potassium chloride 20 mEq 1 tab PO Q2D 03/15/22 03/15/22 Unknown History tablet,extended release(part/cryst) (Klor-Con M) vitamins A,C,K-ogph-adcbef 14,320 1 cap PO BID 03/15/22 03/15/22 03/14/22 History unit-226 mg-200 unit capsule (PreserVision AREDS) warfarin 2.5 mg tablet 1.25 mg PO WE 03/15/22 03/15/22 03/12/22 History warfarin 2.5 mg tablet 2.5 mg PO SUMOTUTHFRSA 03/15/22 03/15/22 03/14/22 History Physical Exam Vital Signs: Vital Signs: Last Vital Signs Temp 99.7 F 04/10/22 21:00 Pulse 104 H 04/10/22 21:00 Resp 19 04/10/22 21:00 BP 112/60 04/10/22 21:00 Pulse Ox 92 04/10/22 21:00 BMI result Body Mass Index 24.7 Const: General: cooperative HEENT: Head: Yes normal to inspection Mouth: Normal oral and palatal mucosa present Resp: Effort & Inspection: normal respiratory effort Cardio: Rate: regular rate Rhythm: regular rhythm GI: Palpation (GI): Soft to palpation and nontender Skin: General skin exam: no rashes or lesions noted Results Labs CBC & Chem 7: 04/10/22 05:27 04/10/22 05:27 Labs: Short CBC 04/10/22 Range/Units 05:27 WBC 25.4 H (4.8-10.8) X10*3/uL Hgb 8.7 L (12.0-16.0) g/dl Hct 27.2 L (37.0-47.0) % Plt Count 130 L (160-400) X10*3/uL BMP 04/10/22 05:27 Sodium 133 L Potassium 4.6 D Chloride 103 Carbon Dioxide 18 L BUN 74 H Creatinine 4.94 H* Calcium 7.2 L Liver Function 04/10/22 Range/Units 05:27 Albumin 1.8 L (3.5-5.0) g/dL Microbiology Microbiology Results: Microbiology 04/08/22 10:43 Sputum - Suctioned Gram Stain - Final 04/08/22 10:43 Sputum - Suctioned Sputum Culture - Final 04/07/22 15:15 Blood - Venous Blood Culture - Preliminary No growth after 48 hours. 04/07/22 15:15 Blood - Venous Blood Culture - Preliminary No growth after 48 hours. 04/03/22 11:30 Thoracentesis Fluid Gram Stain - Final 04/03/22 11:30 Thoracentesis Fluid Anaerobic Culture - Final NO GROWTH AFTER 5 DAYS 04/03/22 11:30 Thoracentesis Fluid Body Fluid Culture - Final No growth after 2 days Assessment and Plan (1) Leukocytosis: Status: Acute She likely has leukemoid reaction due to stress of illness and probable mucus plugging (on ventilator) She may have sinusitis as well. She only received one dose steroids on 03/24 so likely not contributory She has lung infiltrates ?atypical Plan Coverage for atypical organisms and MRSA Doxycycline Check urine Legionella antigen and MRSA nasal swab if not done.
[2022-04-10] MEDS: Heparin Sodium,Porcine/1/2NS 25,000 UNIT/250 ML IV.SOLN 8.64 UNIT IVCONT (21:58)
[2022-04-10] MEDS: Doxycycline Hyclate 100 MG in 0.9 % Sodium Chloride 250 ML 166.67 MG IV (22:24)
[2022-04-11] VITALS (31 sets, daily range): BP systolic 80–129; BP diastolic 41–69; PULSE 98–127; RESP 14–27; TEMP 34–37.9; O2SAT 93–98; BMI 24.6
[2022-04-11] MEDS: Metoclopramide HCl 10 MG/2 ML VIAL 5 MG IVPUSH (03:41)
[2022-04-11] MEDS: Lactulose 20 GM/30 ML SOLUTION PO ×3 (03:42→11:16)
[2022-04-11] MEDS: propofoL 1,000 MG/100 ML VIAL 3.73 MG IVCONT (04:25)
[2022-04-11 05:24] LABS: Mean Corpuscular HGB Conc 32.1 g/dl (31.0-35.0); Mean Corpuscular Hemoglobin 29.7 pg (27.0-33.0); Mean Corpuscular Volume 92.4 fL (80.0-98.0); Mean Platelet Volume 11.3 fL (9.4-12.3); NRBC Pct Auto 0.1 /100WBC (0.0-0.2); Platelet Count 144 X10*3/uL (160-400); Red Blood Count 3.03 X10*6/uL (4.20-5.50); Red Cell Distribution Width 18.1 % (11.0-16.0); White Blood Count 24.3 X10*3/uL (4.8-10.8)
[2022-04-11 05:26] LABS: VBG Base Excess -8.4 mmol/L; VBG HCO3 15 mmol/L (22-26); VBG pCO2 26 mmHg; VBG pH 7.37 (7.32-7.43); VBG pO2 48 mmHg
[2022-04-11 05:27] LABS: Venous Blood Gas Refer to POC result
[2022-04-11] MEDS: Levothyroxine Sodium 112 MCG, Levothyroxine Sodium 25 MCG 137 MCG PO (05:43)
[2022-04-11] MEDS: dilTIAZem HCL 30 MG TABLET OG-TUBE (05:44)
[2022-04-11 05:52] LABS: B Type Natriuretic Peptide 1526 pg/mL (<100)
[2022-04-11 05:55] LABS: Albumin Level 2.1 g/dL (3.5-5.0); Anion Gap 22 (12-20); Blood Urea Nitrogen 80 mg/dL (9-16); Calcium 7.2 mg/dL (8.4-10.2); Carbon Dioxide 15 mmol/L (22-29); Chloride 104 mmol/L (96-108); Creatinine Clr Calc Pharmacy 9.7; Estimated Glomerular Filt Rate 8; Glucose Random 94 mg/dL (60-115); Magnesium 2.2 mg/dL (1.6-2.6); Phosphorus 6.1 mg/dL (2.7-4.5); Potassium 5.2 mmol/L (3.3-5.1); Sodium 136 mmol/L (135-145)
[2022-04-11] MEDS: Chlorhexidine Gluc Oral Rinse 15 ML MOUTHWASH BUCCAL ×3 (09:03→20:38)
[2022-04-11] MEDS: Doxycycline Hyclate 100 MG in 0.9 % Sodium Chloride 250 ML 166.67 MG IV ×2 (09:03→21:57)
[2022-04-11] MEDS: Atorvastatin Calcium 40 MG TABLET G-TUBE (09:04)
[2022-04-11] MEDS: Aspirin 81 MG TAB.CHEW G-TUBE (09:04)
[2022-04-11] MEDS: Midodrine HCl 10 MG TABLET OG-TUBE ×2 (09:04→15:01)
[2022-04-11] MEDS: 0.9 % Sodium Chloride Flush 3 ML SYRINGE IVFLUSH ×2 (09:08→23:45)
[2022-04-11] MEDS: Artificial Tears 15 ML DROPS 1 DROP EYE-BOTH ×3 (09:09→20:39)
--- NOTE | 2022-04-11 10:07 | P.PNCC_ITS ---
Subjective Subjective Date of Service: 04/11/22 Interval History: Mrs. Dooley was transferred to the ICU on April 06 [facility] of hypercapnic and hypoxemic resp failure failure for BiPAP, and subsequently required emergent tracheal intubation. 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 ECHO 08/2021 showed:? Severely dilated CMOP.? Normal LV wall thickness. ?LV systolic function severely decreased, EF15-20%. ?Mildly increased RV cavity size w mild-moderately decreased function.? Normal mechanical prosthetic MV fxn.? Severe biatrial enlargement.? Mod-severe TR with dilated, poorly collapsing IVC, RVSP 49mm. Her daughter Yeny told me about her functional status:? Mrs. Garza moved in w her daughter and the daughter?s this past July she needed more care.? Yeny works as her mother?s healthcare administrative assistant, and is the HCP.? Mrs. Garza walks w a walker.? She gets out of the house a few days a week.? Yeny helps her bathe and dress.? She is independent with eating and toileting.? The patient considered her quality of life to be satisfactory.? Yeny told me that the patient had had discussions with her kidney doctor in regards to the fact that dialysis was likely coming in the future.? She filled out a MOLST form in 09/2021 designating full support. HISTORY OF PRESENT ILLNESS:? The [place] [facility] [place] with dyspnea secondary to heart failure exacerbation.? Hospital course was complicated by urinary retention with traumatic wilson placement resulting in hematuria requiring transfusion of total 9 units RBCs, culminating in cystoscopy w fulgaration for bleeding control on 03/24; development of right-sided pleural effusion, s/p therapeutic thoracentesis 1.2 L on April 03; and progressive renal failure initiated on hemodialysis on 04/05/2022 via Left IJ temp dialysis catheter (instead of permcath bec of elevated INR) On 04/06 the patient developed lethargy, hypoxemia and for hypercarbia.? She was put on BiPAP and transferred to ICU.? CXR showed reaccumulation of right-sided pleural effusion and new infiltrates on the left, thought secondary to aspiration.? Right thoracentesis removed 800 cc of serosanguineous fluid, but without improvement in her respiratory status.? The patient was emergently intubated.? Of note, during the thoracentesis, the patient had a 13 second run of VT (at a rate of 137/min) that self-terminated without a shock from her device.? The patient was started on Zosyn for empiric pulmonary aspiration coverage. The post-intubation CXR reading missed a right basilar pneumothorax, which was undetected until a film done later that night after OGT placement showed a large tension PTX.? A pigtail drainage catheter was placed which, after repositioning, drained the entire hydropneumothorax.? The patient was not dialyzed that day because of hemodynamic instability. My bedside ECHOCARDIOGRAM for hemodynamic monitoring on April 07 showed: 1. Normal LV wall thickness 2. LV is at least mildly dilated with severe systolic dysfunction, and marked regional wall motion abnormalities.? The septum and apex are akinetic.? Overall EF 10-15% maximum. 3. RV size looked normal to me 4. 2-3 + TR by color-flow.? CWD signal measured 2.5 m/s (gradient 25mm). 5. IVC measured 2.4 cm, with minimal inspiratory collapse.? Estimated CVP 15 mm.? Estimated RVSP 40mm. For anticoagulation for her mechanical valve, we switched her from Coumadin to a heparin infusion (in case of need for rapid reversal).? On April 08, she underwent her second HD.? The Levophed requirement jeff significantly during HD, despite albumin infusion.? Towards the end, she started having ventricular ectopy, then tachycardia, at which point we ended the dialysis session; only 1.5L taken off.? Her HR and Levophed requirement came down.? About 1 hour later, the morphology of her bedside monitor tracing changed.? An EKG showed lateral ST segment elevation suggestive of acute MO.? Discussed with Dr. Estrella.? She was already on heparin infusion.? We added aspirin and statin.? Troponin came back at 1185, but the repeat trop was down to 1009.? Her Levophed dose was stable (i.e. no apparent hemodynamic sequellae). The right chest tube was pulled on April 09.? Heparin was restarted at a fixed dose of 10u/kg/hr; increased to a fixed dose of 11 units/kg/hr yesterday.? PTT this morning is 48.? Haven?t had bloody tracheal secretions in > 2 days.? I increased the heparin drip to 11.5 units. Yesterday, she immediately failed PSV trials, even at 20 and 25 cm PS.? RR and Ve jeff, and she was obviously uncomfortable.? Mrs. Dooley had been off propofol since 04/07, on fent at 50ug.? Yesterday she easily opened eyes to command and would not her head to questions.? She appeared to be uncomfortable yesterday evening though, so we put her back on low dose propofol. Last night, Dr. Yo started her on doxycycline.? We gave her a diuretic chal lenge with Bumex 4mg and Diuril 500mg, to which she had no response.? U/o is minimal. This morning she?s on propofol 10ug, fentanyl 25ug, and Levophed 0.4ug.? She inconsistently opens her right eye to stimulation, but is otherwise noninteractive.? Heart rate is 110, in chronic atrial fibrillation, on diltiazem 30mg q6.? BP 106/60.? On assist control 14/350/25%/+5, RR is 21-24, Ve 7.4L, PIP 26cm, ETCO2 22mm, Sat 97%.? This morning's CVBG showed 7.37/26/-8.? Tmax 100.2?.? Obvious prosthetic left eye.? No JVD at 30?.? Chest CTA with normal exp phase.? Irregular rate and rhythm, soft heart tones, audible click of her mitral valve.? Abdomen is distended and firm today.? Residuals increased today.? No stool output yet to the q4hr lactulose.? She has at least 3+ central edema. The patient has a 1 x 2 inch pupuric unstageable DTI on her coccyx. We started her on HD this morning.? During the first half hour, her HD have been steady. LABORATORY DATA:? As below.? Notably, WBC steady at 24, BUN/creatinine up to 80/5.6, with potassium up to 5.2, bicarb down to 15, phos up to 6.1.? Albumin 2.1. MICROBIOLOGY:? No positive cultures. CXR this morning (f/u PTX):? No PTX.? Her right pleural effusion is reaccumulating.? Left lung looks improved. Repeat bedside ECHO done this morning bec of higher Levophed requirement:? LV fxn looks the same, possibly slightly worse.? Sharon and septum still akinetic.? EF 10%.? TR looks worse, at least 2+, if not worse, CWD is higher, measured 4.0 (gradient 64mm).? IVC measured 1.65cm w minimal insp collapse.? I saw a mass on the undersurface of the MV, not sure what that is.? D/W Dr. Estrella.? I ordered a full repeat echo, he will look at that. IMPRESSION:? 1. Underlying severe dilated biventricular ischemic CMOP.? That is pretty much the source of all her other problems, including the renal failure and difficulty with dialysis, the resp failure, and the cachexia.? This does not appear remediable.? Pulmonary hemod may be worse, based on my echo today. 2. Underlying CAD w echo evidence of previous MO. 3. Underlying mechanical prosthetic MV.? Needs anticoagulation.? Holding Coumadin while she is critically ill, switched to heparin.? Keeping her on low dose, target PTT about 50, bec of earlier bloody tracheal secretions. 4. Underlying Chronic afib.? Controlled now w ditiazem.? Hesitant to use beta- hubert because of severe cardiomyopathy. 5. Underlying hypothyroidism.? Continue thyroid. 6. Acute hypercarbic & hypoxemic resp failure.? 2? exac of chronic systolic heart failure.? She?s too weak to do anything but barely initiating a breath.? And she?s undoubtedly still volume overloaded.? Not sure how much volume, if any, we?ll be able to pull on HD.? At this point, if we continue, it looks like she?d need a tracheostomy. 7. Hypotension.? Most likely 2? combination of severe CMOP and acute renal failure.? Lactate and blood cultures are negative. ?Continue midodrine.? Target BP is 90 systolic, or MAP about 60. 8. Acute on chronic renal failure.? Likely secondary to ATN.? It is almost a certainty that she?ll require permanent hemodialysis henceforth.? The daughter is aware. 9. ID.? New left lung infiltrates on 04/06.? Most likely 2? aspiration pneumonia.? FiO2 down to 25% now, afebrile, and her left lung looks almost clear.? But WBC still high.? D/c?d the Zosyn on April 09. ?Dr. Yo saw her yesterday, put her on Doxy, ordered nasal MRSA swab and Legionella Ag. 10. Acute ischemic event after HD on 04/08 (lateral ST elevation), but troponin pattern was inconsistent with acute MO.? No obvious acute hemod sequelae.? She?s on heparin, ASA, statin.? Otherwise nothing to do (not a candidate for a cath).? But this makes us cautious about future HD. 11. Right-sided pneumothorax. ?Resolved.? I expect her to reaccumulate her right pleural effusion. 12. Probable ICU myopathy.? As noted earlier, looks like she?ll need a tracheostomy. 13. Laxation.? Looks distended today.? KUB shows loops of bowel without clear obstruction, prob obstipation. Plan GoLytely prn. 14. DTI Coccyx.? Likely a pressure injury 2? deficient skin blood flow and poor tissue quality due to PCM.? In a patient like this, I don?t believe that pressure wounds are practically avoidable. 15. Nutrition:? Severe PCM.? 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 Will have a substantial impact on her survivability. 16. Poor IV access:? Changed her double lumen dialysis catheter to a triple lumen catheter on 04/07. Daughter Yeny cell phone:? [phone]. Prognosis is grave.? Likelihood of surviving this hospitalization is looking more and more grim.? Furthermore, looks like she?ll need tracheostomy to get off the ventilator.? One year mortality from here appears > 90%. Critical care time: ?70+ min. Critical Care Time (minutes): 70 Physical Exam Vital Signs: Vital Signs: Last Vital Signs Temp 99.9 F 04/11/22 09:00 Pulse 120 H 04/11/22 09:00 Resp 27 H 04/11/22 09:00 BP 121/57 L 04/11/22 09:26 Pulse Ox 97 04/11/22 09:00 BMI result Body Mass Index 24.6 Objective Data Labs CBC & Chem 7: 04/11/22 05:10 04/11/22 05:10 Labs: Laboratory Results - last 24 hr 04/10/22 04/11/22 04/11/22 15:52 05:10 05:10 WBC 24.3 H RBC 3.03 L Hgb 9.0 L Hct 28.0 L MCV 92.4 MCH 29.7 MCHC 32.1 RDW 18.1 H Plt Count 144 L MPV 11.3 Absolute Nucleated RBC 0.020 H Nucleated RBC % (auto) 0.1 aPTT Heparin Protocol 49.8 L VBG pH VBG pCO2 VBG pO2 VBG HCO3 VBG O2 Saturation VBG Base Excess Sodium 136 Potassium 5.2 H Chloride 104 Carbon Dioxide 15 L Anion Gap 22 H BUN 80 H Creatinine 5.60 H* Estim Creat Clear Calc 9.7 Estimated GFR 8 Random Glucose 94 Calcium 7.2 L Phosphorus 6.1 H Magnesium 2.2 B-Natriuretic Peptide Albumin 2.1 L 04/11/22 04/11/22 05:10 05:18 WBC RBC Hgb Hct MCV MCH MCHC RDW Plt Count MPV Absolute Nucleated RBC Nucleated RBC % (auto) aPTT Heparin Protocol VBG pH 7.37 VBG pCO2 26 VBG pO2 48 VBG HCO3 15 L VBG O2 Saturation 76.0 VBG Base Excess -8.4 Sodium Potassium Chloride Carbon Dioxide Anion Gap BUN Creatinine Estim Creat Clear Calc Estimated GFR Random Glucose Calcium Phosphorus Magnesium B-Natriuretic Peptide 1526 H Albumin Microbiology Microbiology Results: Microbiology 04/08/22 10:43 Sputum - Suctioned Gram Stain - Final 04/08/22 10:43 Sputum - Suctioned Sputum Culture - Final 04/07/22 15:15 Blood - Venous Blood Culture - Preliminary No growth after 48 hours. 04/07/22 15:15 Blood - Venous Blood Culture - Preliminary No growth after 48 hours. 04/03/22 11:30 Thoracentesis Fluid Gram Stain - Final 04/03/22 11:30 Thoracentesis Fluid Anaerobic Culture - Final NO GROWTH AFTER 5 DAYS 04/03/22 11:30 Thoracentesis Fluid Body Fluid Culture - Final No growth after 2 days Quality Stroke Does the patient have a stroke diagnosis?: No VTE Prior VTE?: No VTE Risk Level:: Medical - moderate - high VTE Device Contraindication: N/A - Device Ordered VTE Drug Contraindication: N/A - Med Ordered Critical Care Time Critical Care Time (minutes): 60
--- NOTE | 2022-04-11 10:13 | CA_ITS ---
Transthoracic Echocardiogram Patient (Last, First, Middle): [place] Dooley E Gender: Female Date of : 1950 Age: 71 Procedure Date: 04/11/2022 Procedure Type: Transthoracic Echocardiogram Location: ICU Height: 175.26 cm Weight: 75.3 kg BSA: 1.91 m2 Heart Rate: 116 bpm BP: 98 / 54 mmHg Food Service Supervisor: BRENDA Referring MD: Junior Delgado MD Electrical And Instrument Mechanic: Lonnie Estrella MD Symptoms: CMOP; ? Mass on mitral valve Study Quality: Adequate ECG Rhythm: Tachycardia Conclusions: - 1. Moderately dilated LV with severe LV systolic dysfunction 2. Mass on prosthetic mitral valve suggestive of a thrombus or a vegetation. Artifact cannot be entirely ruled out 3. Severely dilated left atrium 4. No gross pericardial effusion Findings Procedure Information Contrast agent, definity, is being given per protocol without apparent complications. Left Ventricle Moderately increased left ventricular cavity size. The left ventricular systolic function is severely decreased. The visually estimated ejection fraction is between 15-20%. Diastolic function is indeterminate on the basis of available data. Right Ventricle Mildly increased right ventricular cavity size. There is mildly decreased right ventricular systolic function. There is an ICD wire seen in the right ventricle. Atria The left atrium is severely dilated. Aortic Valve There is mild thickening of the aortic valve. There is no aortic valve stenosis. There is no aortic valve regurgitation. Mitral Valve A mechanical prosthetic mitral valve is present. There is a possible mass on the atrial side of the prosthetic valve which could represent a thrombus or vegetation. Artefact cannot be ruled out. The gradients are low but could be due to lower transmitral flow. Pulmonic Valve The pulmonic valve was not well visualized. Tricuspid Valve There is mild to moderate tricuspid valve regurgitation. The right ventricular systolic pressure is normal. Great Vessels All visible segments of the aorta are normal in size. The pulmonary artery was not well visualized. Venous The inferior vena cava is normal in size. Pericardium/Pleural There is no evidence of pericardial effusion. Prior Study Comparison Changes noted compared to prior study dated: 09/04/2021. Possible mass on the mitral valve that could represent a thrombus. clinical correlation suggested Measurements 2D Linear Measurements IVSd: 0.86 0.6-0.9/0.6-1.0 cm LVIDd: 6.25 3.9-5.3/4.2-5.9 cm LVIDd Index: 3.27 2.4-3.2/2.2-3.1 cm/m2 LVIDs: 5.55 2.0-3.6 cm LVPWd: 0.80 0.7-1.1 cm LA Diam: 5.00 2.7-3.8/3.0-4.0 cm LAIDs Index: 2.62 1.5-2.3 cm/m2 LV Mass: 261.00 67-162/88-224 g LV Mass Index: 136.65 43-95/49-115 g/m2 LVOT Diam: 2.10 3.0+(-)1.3 cm 2D Systolic Function EF 4C: 20.20 >55% EF 2C: 34.00 >55% Mitral Valve MV VTI: 0.19 MV Pk Candelario: 1.23 MV Mn Candelario: 1.00 MV Pk Grad: 6.00 MV Mn Grad: 4.00 MV Pk E: 1.23 E'Lateral: 3.30 E/E' Lat: 37.30 MVA Continuity: 1.44 Aortic Valve AoV Pk Candelario: 1.23 AoV Mn Candelario: 0.85 AoV VTI: 0.13 AoV Pk Grad: 6.00 Aov Mn Grad: 3.00 AARON Cont.VTI: 2.11 LVOT LVOT Pk Candelario: 0.87 LVOT Mn Candelario: 0.59 LVOT VTI: 0.08 LVOT Pk Grad: 3.00 LVOT Mn Grad: 2.00 LVOT Diam: 2.10 LVOT Area: 3.46 Diastolic Function MV Pk E: 1.23 E' Laterial: 3.30 E/E' Lat: 37.30 Right Ventricle TAPSE (mm): 7.90 TVS' Candelario: 6.89 Tricuspid Valve TR Pk Candelario: 2.54 TR Pk Grad: 26.00 RA Press: 8.00 RVSP: 34.00 Great Vessels Aorta Sinus of Valsalva: 2.45 2.0-3.[address] Ridge: 2.33 1.7-3.4 cm Ao Asc: 2.80 2.1-3.4 cm Pulmonary Valve PV Pk Candelario: 1.19 Peak PV Grad: 6.00 Updated in Other Vendor System with Status of Final Lonnie Estrella MD electronically signed on 04/11/2022 5:05:51 PM with status of Final
[2022-04-11] MEDS: dilTIAZem HCL 125 MG in 0.9 % Sodium Chloride 100 ML IVCONT (10:22)
--- NOTE | 2022-04-11 10:24 | MHC.CLN ---
Addendum entered by Bharati Torres, CHARLES 04/11/22 10:35: DAY 3 OF POOR NUTRITION; IF ENEMA/SUPPOSITORY UNSUCCESSFUL TODAY CONSIDER TPN/PPN FOR NUTRITION SUPPORT RD CAN BE REACHED VIA TIGER TEXT DURING OFF HOURS Original Note: F/U PT REMAINS INTUBATED PT RECEIVING NEPRO TO MAX GOAL RATE 40ML/HR WITH 240ML FREE WATER FLUSHES Q 8HRS PROVIDES 1728KCALS (29KCALS/KG), 78G PROTEIN (1.2G/KG), 1418ML TOTAL WATER FROM FORMULA AND FLUSHES (23ML/KG) DISCUSSED AT ROUNDS WITH MD TURNER REPORTS CONTINUOUS HIGH TF RESIDUALS; NO BM; TF REMAINS ON HOLD HD STARTING DURING ROUNDS AND NSG PLAN FOR ENEMA/SUPPOSITORY S/P HD CONTINUE TO MONITOR TOLERANCE, RESIDUALS AND LYTES
[2022-04-11 10:31] LABS: PTT Heparin Drip 48.1 SEC (53-77.9)
[2022-04-11 11:22] LABS: MRSA Nasal PCR NEGATIVE (Negative); SA Nasal PCR POSITIVE (Negative)
[2022-04-11] MEDS: Heparin Sodium,Porcine/1/2NS 25,000 UNIT/250 ML IV.SOLN 8.7 UNIT IVCONT (11:37)
--- NOTE | 2022-04-11 12:54 | PC.NURSE ---
Addendum entered by Gabrielle Chavez RN 04/11/22 18:44: HIGH RESIDUALS REMAIN EVEN WITH TUBE FEEDS OFF. ABD NOTED TO BE DISTENDED, ROUND, AND FIRM - MD NOTIFIED. RECTAL SUPP ADMINISTERED POST DIALYSIS - NOT EFFECTIVE. KUB ORDERED AND OBTAINED. GO-LYTE ORDERED AND 200 ML ADMINISTERED. PER MD CHECK RESIDUAL PRIOR TO NEXT DOSE. RESIDUAL >200 ML - BILE IN COLOR. HOLD NEXT DOSE AND CHECK RESIDUAL IN 2 HOURS. MINERAL OIL ENEMA #1 ADMINISTERED - NOT EFFECTIVE. OG TUBE RESIDUALS RECHECKED 2 HOURS LATER - 200 ML REMAINS. MD NOTIFIED. CONTINUE TO HOLD. ADMINISTERED MINERAL OIL ENEMA #2 2 HOURS AFTER FIRST DOSE - PENDING EFFECTIVENESS. PASSING MINIMAL FLATUS. ONLY MINERAL OIL NOTED TO PAD. WILL PASS ON TO ONCOMING RN TO RECHECK RESIDUALS PER MD AT 1745. REMAINS ANEURIC - STAHL REMOVED. CLARIFIED NEW HEPARIN GTT ORDER: 11.5 UNITS/KG/HR = 8.7 ML/HR. GTT WEIGHT 75.7 KG. NEXT PTTHD TO BE DRAWN AT 0500 04/12/22 DILTIAZEM GTT ADDED TO ASSIST WITH INCREASED HR - SEE EMAR. CONTINUES TO TITRATE LEVOPHED GTT TO MAINTAIN MAP 60 - 65 PER MD - SEE EMAR. PATIENTS DAUGHTER UPDATED MULTIPLE TIMES THROUGHOUT THE DAY BY THIS RN AND MD. Original Note: DIALYSIS REMOVED 900 ML.
[2022-04-11] MEDS: bisacodyL 10 MG SUPP.RECT PR (12:57)
--- NOTE | 2022-04-11 13:44 | PM.PNNEP ---
Subjective Subjective Date of Service: 04/11/22 Principal diagnosis: acute on chronic CHF, hematuria, mechanical Mitral valve Interval history: Chart Reviewed. Events noted. Physical Exam Vital Signs: Vital Signs: Last Vital Signs Temp 98.4 F 04/11/22 13:00 Pulse 107 H 04/11/22 13:00 Resp 14 04/11/22 13:00 BP 96/51 L 04/11/22 13:00 Pulse Ox 96 04/11/22 13:00 BMI result Body Mass Index 24.6 Const: General: no acute distress HEENT: Head: Yes normocephalic Neck: Neck: Yes no JVD Resp: Auscultation: clear to auscultation bilaterally Cardio: Jugular venous distension: no JVD Rate: regular rate Rhythm: regular rhythm GI: Auscultation: normal bowel sounds Neuro: Other: Sedated Extrem: General: Yes no clubbing, cyanosis or edema Objective Data Labs CBC & Chem 7: 04/11/22 05:10 04/11/22 05:10 Labs: Laboratory Results - last 24 hr 04/10/22 04/11/22 04/11/22 15:52 05:10 05:10 WBC 24.3 H RBC 3.03 L Hgb 9.0 L Hct 28.0 L MCV 92.4 MCH 29.7 MCHC 32.1 RDW 18.1 H Plt Count 144 L MPV 11.3 Absolute Nucleated RBC 0.020 H Nucleated RBC % (auto) 0.1 aPTT Heparin Protocol 49.8 L VBG pH VBG pCO2 VBG pO2 VBG HCO3 VBG O2 Saturation VBG Base Excess Sodium 136 Potassium 5.2 H Chloride 104 Carbon Dioxide 15 L Anion Gap 22 H BUN 80 H Creatinine 5.60 H* Estim Creat Clear Calc 9.7 Estimated GFR 8 Random Glucose 94 Calcium 7.2 L Phosphorus 6.1 H Magnesium 2.2 B-Natriuretic Peptide Albumin 2.1 L Nasal Screen MRSA (PCR) Nasal S. aureus Screen Nasal MRSA/S.aureus Interp 04/11/22 04/11/22 04/11/22 05:10 05:18 10:04 WBC RBC Hgb Hct MCV MCH MCHC RDW Plt Count MPV Absolute Nucleated RBC Nucleated RBC % (auto) aPTT Heparin Protocol VBG pH 7.37 VBG pCO2 26 VBG pO2 48 VBG HCO3 15 L VBG O2 Saturation 76.0 VBG Base Excess -8.4 Sodium Potassium Chloride Carbon Dioxide Anion Gap BUN Creatinine Estim Creat Clear Calc Estimated GFR Random Glucose Calcium Phosphorus Magnesium B-Natriuretic Peptide 1526 H Albumin Nasal Screen MRSA (PCR) NEGATIVE Nasal S. aureus Screen POSITIVE A Nasal MRSA/S.aureus Interp SEE NOTE 04/11/22 10:15 WBC RBC Hgb Hct MCV MCH MCHC RDW Plt Count MPV Absolute Nucleated RBC Nucleated RBC % (auto) aPTT Heparin Protocol 48.1 L VBG pH VBG pCO2 VBG pO2 VBG HCO3 VBG O2 Saturation VBG Base Excess Sodium Potassium Chloride Carbon Dioxide Anion Gap BUN Creatinine Estim Creat Clear Calc Estimated GFR Random Glucose Calcium Phosphorus Magnesium B-Natriuretic Peptide Albumin Nasal Screen MRSA (PCR) Nasal S. aureus Screen Nasal MRSA/S.aureus Interp Microbiology Microbiology Results: Microbiology 04/08/22 10:43 Sputum - Suctioned Gram Stain - Final 04/08/22 10:43 Sputum - Suctioned Sputum Culture - Final 04/07/22 15:15 Blood - Venous Blood Culture - Preliminary No growth after 48 hours. 04/07/22 15:15 Blood - Venous Blood Culture - Preliminary No growth after 48 hours. 04/03/22 11:30 Thoracentesis Fluid Gram Stain - Final 04/03/22 11:30 Thoracentesis Fluid Anaerobic Culture - Final NO GROWTH AFTER 5 DAYS 04/03/22 11:30 Thoracentesis Fluid Body Fluid Culture - Final No growth after 2 days Procedures Date of Service Date of Service: 04/11/22 Assessment & Plan Assessment and plan (1) CKD (chronic kidney disease) stage 5, GFR less than 15 ml/min: Status: Acute (2) Acute respiratory failure: Status: Acute Plan 1. ALIZA on adv CKD now prog to ESRD and HD started 04/05. UF performed on 04/06. HD on 04/08 however patient became hypotensive and tachycardic. HD stopped early. Noted volume gain with diminished uop. Plan for HD today and if she tolerates, attempt repeat session in am with gentle UF. Use low BFR, albumin for hypotension. Suggest lokelma 10 G prn K> 5.0. 2. Resp Failure: events noted--s/p thoracentesis and now on vent 3. Anemia 4. MBD of CKD-will add sevelamer tid. 5. SOB critically ill Time Spent With Patient Time: Total time spent is greater than 50% in coordination of care (as documented) at patient's floor/unit and/or counseling patient: Progress Note: Quality Stroke Does the patient have a stroke diagnosis?: No
[2022-04-11] MEDS: PEG 3350/Na Sulf,Bicarb,Cl/KCL 4,000 ML SOLN.RECON 200 ML G-TUBE (15:01)
--- NOTE | 2022-04-11 15:31 | MHC.CLN ---
F/U NSG REPORTED PT WITHOUT BM S/P SUPPOSITORY IF NO BM BY 04/12, RECOMMEND TPN D10AA5 AT 45ML/HR TO PROVIDE 767KCALS, 54G PROTEIN PT WILL NEED CENTRAL LINE PLACED -MD CALLING DAUGHTER TODAY TO DISCUSS CONSENT PER NSG IF PPN NEEDED; RECOMMEND D10AA4.25 AT 55ML/HR TO PROVIDE 673KCALS, 56G PROTEIN REPLETE LYTES NEEDED DISCUSSED CASE WITH PHARMACY RD AVAILABLE VIA TIGER TEXT IF NEEDED DURING OFF HOURS
[2022-04-11] MEDS: Mineral OiL enema 133 ML ENEMA PR ×2 (16:15→18:24)
[2022-04-11] MEDS: dilTIAZem HCL 125 MG in 0.9 % Sodium Chloride 100 ML 10 MG IVCONT (20:37)
[2022-04-12] VITALS (32 sets, daily range): BP systolic 77–130; BP diastolic 44–67; PULSE 90–115; RESP 14–30; TEMP 33.3–37.3; O2SAT 95–99; BMI 24.6
[2022-04-12] MEDS: bisacodyL 10 MG SUPP.RECT PR (00:06)
[2022-04-12] MEDS: fentaNYL citrate/NS 1,000 MCG/100 ML PLAST..BAG 5 MCG IVCONT (01:39)
--- NOTE | 2022-04-12 04:59 | PC.NURSE ---
CARE ASSUMED 23;15...REMAINS TUBED/VENTED...HEPARIN/LEVOPHED/CARDIZEM DRIPS PER JAN...HEPARIN DRIP MAINTAINED 10 UNITS/KG/HR PER ICU PA...FENTANYL DRIP 50 MCG/HR....TUBE FEEDS REMAIN OFF SINCE DAY SHIFT...OG-TUBE ASPIRATED 425 ML BILE @ 12AM...ADDITIONAL 275 ML BILE ASPIRATED 03:30...PA AWARE....OG TUBE MEDS REMAIN ON HOLD...ABDOMEN REMAINS FIRM/DISTENDED WITH FEW HYPOACTIVE BOWEL SOUNDS...NO BM..PA AWARE..DULCOLOX SUPPOSITORY GIVEN...DISIMPACTED SMALL AMOUNT BROWN STOOL AND SMALL AMOUNT LIQUIED STOOL 2 HOURS LATER..NO FURTHER RESULTS...ATRIAL FIB HR 90'S-100'S...CARDIZEM DRIP WEANED FROM 10 MG/HR TO 5 MG/HR FOR MARGINAL BP..HR REMAINS CONTROLLED...PER ICU MAP GOAL REMAINS 60 OR >....REMAINS W/O URINE OUTPUT
[2022-04-12 05:57] LABS: VBG Base Excess -8.5 mmol/L; VBG HCO3 15 mmol/L (22-26); VBG pCO2 27 mmHg; VBG pH 7.35 (7.32-7.43); VBG pO2 48 mmHg
[2022-04-12 05:58] LABS: Hematocrit 25.8 % (37.0-47.0); Hemoglobin 8.3 g/dl (12.0-16.0); Mean Corpuscular HGB Conc 32.2 g/dl (31.0-35.0); Mean Corpuscular Hemoglobin 30.4 pg (27.0-33.0); Mean Corpuscular Volume 94.5 fL (80.0-98.0); Mean Platelet Volume 11.8 fL (9.4-12.3); NRBC Pct Auto 0.6 /100WBC (0.0-0.2); Platelet Count 145 X10*3/uL (160-400); Red Blood Count 2.73 X10*6/uL (4.20-5.50); Red Cell Distribution Width 18.8 % (11.0-16.0); White Blood Count 16.7 X10*3/uL (4.8-10.8)
[2022-04-12 06:06] LABS: Venous Blood Gas Refer to POC result
[2022-04-12 06:21] LABS: Anion Gap 21 (12-20); Blood Urea Nitrogen 64 mg/dL (9-16); Calcium 6.8 mg/dL (8.4-10.2); Carbon Dioxide 13 mmol/L (22-29); Chloride 106 mmol/L (96-108); Creatinine Clr Calc Pharmacy 11.9; Estimated Glomerular Filt Rate 9; Glucose Random 84 mg/dL (60-115); Phosphorus 6.3 mg/dL (2.7-4.5); Potassium 5.7 mmol/L (3.3-5.1); Sodium 134 mmol/L (135-145)
[2022-04-12] MEDS: Chlorhexidine Gluc Oral Rinse 15 ML MOUTHWASH BUCCAL ×3 (07:32→20:34)
[2022-04-12] MEDS: Artificial Tears 15 ML DROPS 1 DROP EYE-BOTH ×3 (07:34→20:34)
[2022-04-12] MEDS: propofoL 1,000 MG/100 ML VIAL 3.73 MG IVCONT ×2 (07:45→23:41)
[2022-04-12 07:53] LABS: PTT Heparin Drip 45.7 SEC (53-77.9)
[2022-04-12] MEDS: Doxycycline Hyclate 100 MG in 0.9 % Sodium Chloride 250 ML 166.67 MG IV ×2 (09:36→20:38)
[2022-04-12] MEDS: Albumin Human 25 % 100 ML IV (11:41)
--- NOTE | 2022-04-12 11:41 | P.PNCC_ITS ---
Subjective Subjective Date of Service: 04/12/22 Interval History: Mrs. Dooley was transferred to the ICU on April 06 [facility] of hypercapnic and hypoxemic resp failure failure for BiPAP, and subsequently required emergent tracheal intubation. 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 ECHO 08/2021 showed:? Severely dilated CMOP.? Normal LV wall thickness. ?LV systolic function severely decreased, EF15-20%. ?Mildly increased RV cavity size w mild-moderately decreased function.? Normal mechanical prosthetic MV fxn.? Severe biatrial enlargement.? Mod-severe TR with dilated, poorly collapsing IVC, RVSP 49mm. Her daughter Yeny told me about her functional status:? Mrs. Garza moved in w her daughter and the daughter?s this past July she needed more care.? Yeny works as her mother?s resident care aid, and is the HCP.? Mrs. Garza walks w a walker.? She gets out of the house a few days a week.? Yeny helps her bathe and dress.? She is independent with eating and toileting.? The patient considered her quality of life to be satisfactory.? Yeny told me that the patient had had discussions with her kidney doctor in regards to the fact that dialysis was likely coming in the future.? She filled out a MOLST form in 09/2021 designating full support. HISTORY OF PRESENT ILLNESS:? The [place] [facility] with dyspnea secondary to heart failure exacerbation.? Hospital course was complicate d by urinary retention with traumatic wilson placement resulting in hematuria requiring transfusion of total 9 units RBCs, culminating in cystoscopy w fulgaration for bleeding control on 03/24; development of right-sided pleural effusion, s/p therapeutic thoracentesis 1.2 L on April 03; and progressive renal failure initiated on hemodialysis on 04/05/2022 via Left IJ temp dialysis catheter (instead of permcath bec of elevated INR) On 04/06 the patient developed lethargy, hypoxemia and for hypercarbia.? She was put on BiPAP and transferred to ICU.? CXR showed reaccumulation of right-sided pleural effusion and new infiltrates on the left, thought secondary to aspiration.? Right thoracentesis removed 800 cc of serosanguineous fluid, but without improvement in her respiratory status.? The patient was emergently intubated.? Of note, during the thoracentesis, the patient had a 13 second run of VT (at a rate of 137/min) that self-terminated without a shock from her device.? The patient was started on Zosyn for empiric pulmonary aspiration coverage. The post-intubation CXR reading missed a right basilar pneumothorax, which was undetected until a film done later that night after OGT placement showed a large tension PTX.? A pigtail drainage catheter was placed which, after repositioning, drained the entire hydropneumothorax.? The patient was not dialyzed that day because of hemodynamic instability. My bedside ECHOCARDIOGRAM for hemodynamic monitoring on April 07 showed: 1. Normal LV wall thickness 2. LV is at least mildly dilated with severe systolic dysfunction, and marked regional wall motion abnormalities.? The septum and apex are akinetic.? Overall EF 10-15% maximum. 3. RV size looked normal to me 4. 2-3 + TR by color-flow.? CWD signal measured 2.5 m/s (gradient 25mm). 5. IVC measured 2.4 cm, with minimal inspiratory collapse.? Estimated CVP 15 mm.? Estimated RVSP 40mm. For anticoagulation for her mechanical valve, we switched her from Coumadin to a heparin infusion (in case of need for rapid reversal).? On April 08, she underwent her second HD.? The Levophed requirement jeff significantly during HD, despite albumin infusion.? Towards the end, she started having ventricular ectopy, then tachycardia, at which point we ended the dialysis session; only 1.5L taken off.? Her HR and Levophed requirement came down.? About 1 hour later, the morphology of her bedside monitor tracing changed.? An EKG showed lateral ST segment elevation suggestive of acute WV.? Discussed with Dr. Estrella.? She was already on heparin infusion.? We added aspirin and statin.? Troponin came back at 1185, but the repeat trop was down to 1009.? Her Levophed dose was stable (i.e. no apparent hemodynamic sequellae). The right chest tube was pulled on April 09.? Heparin was restarted at a fixed dose of 10u/kg/hr; increased to a fixed dose of 11 units/kg/hr.? PTT has been running about 48.? Started having blood tracheal secretions again last night.? We cut the dose back down to 10 u/kg/hr.? On our last spont breathing trial w pressure support on April 10, she immediately failed, even at 20 and 25 cm PS.? RR and Ve jeff, and she was obviously uncomfortable. ?We put her back on propofol. Mrs. Dooley had been off propofol since 04/07, on low dose fentanyl. ?Of the propofol, she easily opened eyes to command and would not her head to questions.? 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 On April 10, she was started on doxycycline at Dr. Yo?s suggestion bec of the leukocytosis. ?We held dialysis on April 09 and .? She failed a diuretic challenge with Bumex 4mg and Diuril 500mg; she had no u/o response. ?We dialyzed her yesterday morning and today, took off about 900cc each day, tolerated the dialysis by going up on the Levophed dose each session. Yesterday, I repeated her bedside ECHO bec of higher Levophed requirements:? LV fxn looked the same or possibly slightly worse.? [place] and septum still akinetic.? EF 10%.? TR was worse, at least 2+, if not worse, CWD was higher, omayra sured 4.0 (gradient 64mm).? IVC measured 1.65cm w minimal insp collapse.? I saw a mass on the undersurface of the MV.? D/W Dr. Estrella, he asked me to get a full echo.? Echo by the [facility] showed EF 15-20%.? Mildly enlarged RV, severely dilated LA, possible mass (thrombus or vegetation) on atrial side of the prosthetic valve. This morning, aspirate of her OGT was dark brown/black, so we stopped the Heparin.? She?s on propofol 10ug, fentanyl is off, and Levophed 0.58ug.? HD star ariela about 30 min ago.? Just dropped her pressure to 77/45, so we went up on the Levophed and gave her a bolus of albumin.? .? Heart rate is 110, in chronic atrial fibrillation, on diltiazem 5mg/hr.? On assist control 14/350/25%/+5, RR is 14, Ve 4.8L, PIP 24cm, ETCO2 31mm, Sat 97%.? This morning's CVBG showed 7.35/27/-8.? Afebrile.? Obvious prosthetic left eye.? No JVD at 30?.? Chest CTA with normal exp phase.? Irregular rate and rhythm, audible click of her mitral valve.? I heard no murmur or gallops. ?Abdomen is distended and firm.? We?ve been trying to give her GoLytely.? We gave her 200cc, but we check residuals every 2 hours, and none of the GoLytely is being absorbed.? We?ve given her two enemas and mult suppositories.? No stool output.? She has at least 3+ central edema. The patient has a 1 x 2 inch pupuric unstageable DTI on her coccyx. LABORATORY DATA:? As below.? Notably, WBC dropped to 16, BUN/creatinine 64/4.5, with potassium up to 5.7, bicarb down to 13, phos up to 6.3. MICROBIOLOGY:? No positive cultures. IMPRESSION:? 1. Underlying severe dilated biventricular ischemic CMOP, which is pretty much the source of all her other problems, including the renal failure and difficulty with dialysis, the resp failure, and the cachexia.? This does not appear remediable.? Pulmonary hemodynamics may be worse than earlier this week, based on my echo yesterday. 2. Underlying CAD w echo evidence of previous WV. 3. Underlying mechanical prosthetic MV.? Needs anticoagulation.? Holding Coumadin while she is critically ill, switched to heparin.? Keeping her on low dose, target PTT about 50, bec of earlier bloody tracheal secretions. 4. Possible new mitral valve mass.? Vegetation or thrombus.? We would need a SANDRA to further define it.? I ordered new blood cultures. 5. Underlying Chronic afib.? Controlled now w ditiazem.? Hesitant to use beta-hubert because of severe cardiomyopathy. 6. Underlying hypothyroidism.? Continue thyroid. 7. Acute hypercarbic & hypoxemic resp failure.? 2? exac of chronic systolic heart failure.? She?s too weak now to do anything but barely initiating a breath.? And she?s still volume overloaded.? Pulling volume very slowly on HD.? If we continue critical care management, she?ll need a tracheostomy. 8. ICU myopathy. 9. Hypotension.? Most likely 2? combination of severe CMOP and acute renal failure.? Lactate and blood cultures have been negative. ?Continue midodrine.? Target BP is 90 systolic, or MAP about 60. 10.. Acute on chronic renal failure.? Secondary to ATN.? It?s almost a certainty that she?ll require permanent hemodialysis henceforth.? The daughter is aware. 11. ID.? New left lung infiltrates on 04/06 were most likely 2? aspiration pneumonia.? FiO2 now down to 25%, she?s afebrile, and her left lung looks almost clear.? But WBC still high.? D/c?d the Zosyn on April 09. ?Dr. Yo saw her April 10, put her on Doxy.? Nasal MRSA swab was negative, and Legionella Ag is pending. 12. She had an acute ischemic event after HD on 04/08 (lateral ST elevation), but troponin pattern was inconsistent with acute WV.? No obvious acute hemod sequelae.? We put her on heparin, ASA, statin, but we?ve now had to hold the heparin bec of UGI bleed.? Otherwise nothing to do (not a candidate for a cath). 13. UGI bleed this morning.? No hemodynamic impact, and Hb was only down 0.7 grams.? Recheck H&H. 14. Right-sided pneumothorax.? Resolved.? I expect her to reaccumulate her right pleural effusion. 15. Laxation.? KUB showed stool and air thoughout the colon.? No obstruction.? Scattered air-filled loops of small bowel suggest underlying ileus.? We stopped the fentanyl and I gave her a dose of Relistor. 16. DTI Coccyx.? Likely a pressure injury 2? deficient skin blood flow and poor tissue quality due to PCM.? In a patient like this, I don?t believe that pressure wounds are practically avoidable. 17. Nutrition:? Severe PCM.? 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 Will have a substantial impact on her survivability. 18. Poor IV access:? Changed her double lumen dialysis catheter to a triple lumen catheter on 04/07.? If we want to do TPN, she?d need another line.j Daughter Yeny cell phone:? [phone]. Prognosis is grave.? Likelihood of surviving this hospitalization is pretty much nil, IMO and that of , who I?ve spoken with almost daily. I spoke with the patient?s two health care proxies in conference today:? The pat ient?s daughter Yeny and the patient?s brother.? I went over [place]?s list of problems, I?ve indicated that things are getting worse every day, one thing after another, and that she?s not going to survive.? Unfortunately, her brother keeps harkening back to the past, and insists on continuing the course, altho he?s agreed to no resuscitation if her heart stops.? I believe Yeny is coming around to see that survival is not likely. I?ve written DNR orders. Critical care time: ?90+ min. Critical Care Time (minutes): 90 Physical Exam Vital Signs: Vital Signs: Last Vital Signs Temp 97.5 F 04/12/22 11:00 Pulse 105 H 04/12/22 11:00 Resp 15 04/12/22 11:00 BP 77/45 L 04/12/22 11:36 Pulse Ox 99 04/12/22 11:00 BMI result Body Mass Index 24.6 Objective Data Labs CBC & Chem 7: 04/12/22 05:46 04/12/22 05:46 Labs: Laboratory Results - last 24 hr 04/12/22 04/12/22 04/12/22 05:46 05:46 05:48 WBC 16.7 H RBC 2.73 L Hgb 8.3 L Hct 25.8 L MCV 94.5 MCH 30.4 MCHC 32.2 RDW 18.8 H Plt Count 145 L MPV 11.8 Absolute Nucleated RBC 0.100 H Nucleated RBC % (auto) 0.6 H aPTT Heparin Protocol VBG pH 7.35 VBG pCO2 27 VBG pO2 48 VBG HCO3 15 L VBG O2 Saturation 76.0 VBG Base Excess -8.5 Sodium 134 L Potassium 5.7 H Chloride 106 Carbon Dioxide 13 L Anion Gap 21 H BUN 64 H Creatinine 4.58 H* Estim Creat Clear Calc 11.9 Estimated GFR 9 Random Glucose 84 Calcium 6.8 L Phosphorus 6.3 H 04/12/22 07:26 WBC RBC Hgb Hct MCV MCH MCHC RDW Plt Count MPV Absolute Nucleated RBC Nucleated RBC % (auto) aPTT Heparin Protocol 45.7 L VBG pH VBG pCO2 VBG pO2 VBG HCO3 VBG O2 Saturation VBG Base Excess Sodium Potassium Chloride Carbon Dioxide Anion Gap BUN Creatinine Estim Creat Clear Calc Estimated GFR Random Glucose Calcium Phosphorus Microbiology Microbiology Results: Microbiology 04/08/22 10:43 Sputum - Suctioned Gram Stain - Final 04/08/22 10:43 Sputum - Suctioned Sputum Culture - Final 04/07/22 15:15 Blood - Venous Blood Culture - Preliminary No growth after 48 hours. 04/07/22 15:15 Blood - Venous Blood Culture - Preliminary No growth after 48 hours. 04/03/22 11:30 Thoracentesis Fluid Gram Stain - Final 04/03/22 11:30 Thoracentesis Fluid Anaerobic Culture - Final NO GROWTH AFTER 5 DAYS 04/03/22 11:30 Thoracentesis Fluid Body Fluid Culture - Final No growth after 2 days Quality Stroke Does the patient have a stroke diagnosis?: No VTE Prior VTE?: No VTE Risk Level:: Medical - moderate - high VTE Device Contraindication: N/A - Device Ordered VTE Drug Contraindication: N/A - Med Ordered Critical Care Time Critical Care Time (minutes): 90
[2022-04-12] MEDS: dilTIAZem HCL 125 MG in 0.9 % Sodium Chloride 100 ML IVCONT (14:35)
[2022-04-12 15:19] LABS: VBG Base Excess -6.4 mmol/L; VBG HCO3 18 mmol/L (22-26); VBG pCO2 32 mmHg; VBG pH 7.35 (7.32-7.43); VBG pO2 70 mmHg
[2022-04-12 15:33] LABS: Anion Gap 19 (12-20); Blood Urea Nitrogen 41 mg/dL (9-16); Calcium 7.1 mg/dL (8.4-10.2); Carbon Dioxide 18 mmol/L (22-29); Chloride 103 mmol/L (96-108); Creatinine Clr Calc Pharmacy 18.9; Estimated Glomerular Filt Rate 16; Glucose Random 86 mg/dL (60-115); Potassium 4.2 mmol/L (3.3-5.1); Sodium 136 mmol/L (135-145)
[2022-04-12 15:37] LABS: Hematocrit 26.1 % (37.0-47.0); Hemoglobin 8.4 g/dl (12.0-16.0)
--- NOTE | 2022-04-12 18:36 | PC.NURSE ---
OG TUBE RESIDUALS REMAIN HIGH AT START OF SHIFT = 260 ML DARK GREEN BILE. MD NOTIFIED. MD ORDERED TO STOP HEPARIN GTT. - SEE EMAR. FENTANYL GTT TURNED OFF AND CHANGED TO PROPOFOL SINCE THERE HAS NOT BEEN NO BM AT THIS TIME. SEE EMAR. METHYLNALTREXONE BROMIDE 6MG SUBQ ADMINSITERED. OGT OUTPUT TOTAL = 410 ML. GO LYTE INPUT TOTAL = 700 ML PER MD. DIALYSIS REMOVED 1.1 KG. LEVOPHED GTT TITRATED TO MAINTAIN MAP GOAL 60 - 65. SEE EMAR. ALBUMIN X 1 GIVEN BY NEWSPAPER CARRIERS SUPERVISOR. DIGITALLY DISIMPACTED BY MD. SMALL, PASTY, SEMI FORMED STOOL NOTED. NO ADDITIONAL BM SINCE DISIMACTION. INCREASE IN PVCS AND COUPLETS NOTED ON TELE. MD NOTIFIED. RESTRAINTS REMOVED. FAMILY MEETING WITH MD THIS AFTERNOON. CODE STATUS CHANGED TO DNR. PATIENTS DAUGHTER UPDATED VIA PHONE BY THIS RN THIS EVENING.
[2022-04-12 19:12] LABS: Venous Blood Gas Refer to POC result
--- NOTE | 2022-04-12 19:57 | P.PNNP_ITS ---
Subjective Subjective Date of Service: 04/12/22 Principal diagnosis: acute on chronic CHF, hematuria, mechanical Mitral valve Interval history: Chart Reviewed. Events noted. Physical Exam Vital Signs: Vital Signs: Last Vital Signs Temp 99.0 F 04/12/22 19:00 Pulse 113 H 04/12/22 19:00 Resp 27 H 04/12/22 19:00 BP 129/67 04/12/22 19:00 Pulse Ox 96 04/12/22 19:00 BMI result Body Mass Index 24.6 Const: Other: Intubated, sedated General: no acute distress HEENT: Head: Yes normocephalic Neck: Neck: Yes no JVD Resp: Other: Mechanical breath sounds Cardio: Jugular venous distension: no JVD Rate: regular rate Rhythm: regular rhythm Heart sounds: S1 normal heart sound present and S2 normal heart sound present GI: Auscultation: normal bowel sounds Neuro: Other: sedated Extrem: General: Yes no joint enlargement and Yes no clubbing, cyanosis or edema Objective Data Labs CBC & Chem 7: 04/12/22 15:27 04/12/22 15:04 Labs: Laboratory Results - last 24 hr 04/12/22 04/12/22 04/12/22 05:46 05:46 05:48 WBC 16.7 H RBC 2.73 L Hgb 8.3 L Hct 25.8 L MCV 94.5 MCH 30.4 MCHC 32.2 RDW 18.8 H Plt Count 145 L MPV 11.8 Absolute Nucleated RBC 0.100 H Nucleated RBC % (auto) 0.6 H aPTT Heparin Protocol VBG pH 7.35 VBG pCO2 27 VBG pO2 48 VBG HCO3 15 L VBG O2 Saturation 76.0 VBG Base Excess -8.5 Sodium 134 L Potassium 5.7 H Chloride 106 Carbon Dioxide 13 L Anion Gap 21 H BUN 64 H Creatinine 4.58 H* Estim Creat Clear Calc 11.9 Estimated GFR 9 Random Glucose 84 Calcium 6.8 L Phosphorus 6.3 H 04/12/22 04/12/22 04/12/22 07:26 15:04 15:11 WBC RBC Hgb Hct MCV MCH MCHC RDW Plt Count MPV Absolute Nucleated RBC Nucleated RBC % (auto) aPTT Heparin Protocol 45.7 L VBG pH 7.35 VBG pCO2 32 VBG pO2 70 VBG HCO3 18 L VBG O2 Saturation 93.0 VBG Base Excess -6.4 Sodium 136 Potassium 4.2 D Chloride 103 Carbon Dioxide 18 L Anion Gap 19 BUN 41 H Creatinine 2.89 H Estim Creat Clear Calc 18.9 Estimated GFR 16 Random Glucose 86 Calcium 7.1 L Phosphorus 04/12/22 15:27 WBC RBC Hgb 8.4 L Hct 26.1 L MCV MCH MCHC RDW Plt Count MPV Absolute Nucleated RBC Nucleated RBC % (auto) aPTT Heparin Protocol VBG pH VBG pCO2 VBG pO2 VBG HCO3 VBG O2 Saturation VBG Base Excess Sodium Potassium Chloride Carbon Dioxide Anion Gap BUN Creatinine Estim Creat Clear Calc Estimated GFR Random Glucose Calcium Phosphorus Microbiology Microbiology Results: Microbiology 04/07/22 15:15 Blood - Venous Blood Culture - Final No growth after 5 days. 04/07/22 15:15 Blood - Venous Blood Culture - Final No growth after 5 days. 04/08/22 10:43 Sputum - Suctioned Gram Stain - Final 04/08/22 10:43 Sputum - Suctioned Sputum Culture - Final 04/03/22 11:30 Thoracentesis Fluid Gram Stain - Final 04/03/22 11:30 Thoracentesis Fluid Anaerobic Culture - Final NO GROWTH AFTER 5 DAYS 04/03/22 11:30 Thoracentesis Fluid Body Fluid Culture - Final No growth after 2 days Procedures Date of Service Date of Service: 04/12/22 Assessment & Plan Assessment and plan (1) CKD (chronic kidney disease) stage 5, GFR less than 15 ml/min: Status: Acute Plan 1. ALIZA on adv CKD now prog to ESRD and HD started 04/05. UF performed on 04/06. HD on 04/08 however patient became hypotensive and tachycardic. S/P HD with low BFR on 04/11. Continue to monitor renal function and volume status. Can consider prn HD with l ow BFR for supportive care although overall prognosis is poor. Suggest lokelma 10 G prn K> 5.0. 2. Resp Failure: events noted--s/p thoracentesis and now on vent 3. Anemia 4. MBD of CKD-continue sevelamer tid. 5. SOB critically ill Time Spent With Patient Time: Total time spent is greater than 50% in coordination of care (as documented) at patient's floor/unit and/or counseling patient: Progress Note: Quality Stroke Does the patient have a stroke diagnosis?: No
[2022-04-13] VITALS (31 sets, daily range): BP systolic 86–112; BP diastolic 44–59; PULSE 99–117; RESP 14–30; TEMP 34.9–37.5; O2SAT 93–97; BMI 24.7
[2022-04-13] MEDS: Lactulose 20 GM/30 ML SOLUTION PO ×6 (02:31→23:08)
[2022-04-13 05:26] LABS: VBG Base Excess -7.4 mmol/L; VBG HCO3 16 mmol/L (22-26); VBG pCO2 29 mmHg; VBG pH 7.36 (7.32-7.43); VBG pO2 51 mmHg
[2022-04-13 05:34] LABS: Hemoglobin 7.7 g/dl (12.0-16.0); Mean Corpuscular HGB Conc 32.1 g/dl (31.0-35.0); Mean Corpuscular Hemoglobin 30.3 pg (27.0-33.0); Mean Corpuscular Volume 94.5 fL (80.0-98.0); NRBC Pct Auto 0.9 /100WBC (0.0-0.2); Platelet Count 137 X10*3/uL (160-400); Red Blood Count 2.54 X10*6/uL (4.20-5.50); White Blood Count 17.3 X10*3/uL (4.8-10.8)
[2022-04-13 05:35] LABS: Venous Blood Gas Refer to POC result
[2022-04-13 05:41] LABS: INTERNATIONAL NORM RATIO 1.3 (0.9-1.1); Prothrombin Time 15.4 SEC (9.9-13.0)
[2022-04-13 05:44] LABS: PTT Heparin Drip 36.1 SEC (53-77.9)
[2022-04-13 05:53] LABS: Alanine Aminotransferase 214 U/L (0-31); Alkaline Phosphatase 198 U/L (39-117); Anion Gap 18 (12-20); Aspartate Amino Transferase 321 U/L (5-31); Bilirubin Total 1.7 mg/dL (0.0-1.0); Blood Urea Nitrogen 50 mg/dL (9-16); Carbon Dioxide 16 mmol/L (22-29); Chloride 104 mmol/L (96-108); Creatinine Clr Calc Pharmacy 16.1; Estimated Glomerular Filt Rate 13; Glucose Random 78 mg/dL (60-115); Phosphorus 5.2 mg/dL (2.7-4.5); Potassium 4.4 mmol/L (3.3-5.1); Sodium 134 mmol/L (135-145); Total Protein 4.9 g/dL (6.5-8.0)
[2022-04-13 05:54] LABS: B Type Natriuretic Peptide 2730 pg/mL (<100)
[2022-04-13] MEDS: Levothyroxine Sodium 112 MCG, Levothyroxine Sodium 25 MCG 137 MCG PO (06:02)
[2022-04-13] MEDS: Midodrine HCl 10 MG TABLET OG-TUBE ×3 (06:02→23:08)
--- NOTE | 2022-04-13 06:11 | PC.NURSE ---
OG-TUBE DRAINED TOTAL 150ml BILIOUS DRAINAGE 23:00-06:00...PASSING SOME FLATUS BUT NO STOOL...OG MEDS GIVEN AND OG TUBE CLAMPED FOR 2 HOURS AFTER MEDS...LEVOPHED DRIP PER JAN..REMAINS W/O URINE OUTPUT
[2022-04-13] MEDS: Aspirin 81 MG TAB.CHEW G-TUBE (07:27)
[2022-04-13] MEDS: 0.9 % Sodium Chloride Flush 3 ML SYRINGE IVFLUSH ×3 (07:27→23:09)
[2022-04-13] MEDS: Atorvastatin Calcium 40 MG TABLET G-TUBE (07:27)
[2022-04-13] MEDS: Chlorhexidine Gluc Oral Rinse 15 ML MOUTHWASH BUCCAL ×3 (07:27→19:33)
[2022-04-13] MEDS: Artificial Tears 15 ML DROPS 1 DROP EYE-BOTH ×3 (07:27→19:33)
[2022-04-13] MEDS: Doxycycline Hyclate 100 MG in 0.9 % Sodium Chloride 250 ML 166.67 MG IV ×2 (10:09→21:59)
[2022-04-13] MEDS: PEG 3350/Na Sulf,Bicarb,Cl/KCL 4,000 ML SOLN.RECON 200 ML G-TUBE (11:02)
[2022-04-13] MEDS: Rocuronium Bromide 50 MG/5 ML VIAL 30 MG IVPUSH (12:51)
[2022-04-13] MEDS: dilTIAZem HCL 125 MG in 0.9 % Sodium Chloride 100 ML IVCONT (13:18)
[2022-04-13] MEDS: Heparin Sodium,Porcine/1/2NS 25,000 UNIT/250 ML IV.SOLN 7.62 UNIT IVCONT (14:02)
--- NOTE | 2022-04-13 14:13 | PM.CCPN ---
Subjective Subjective Date of Service: 04/13/22 Interval History: Mrs. Dooley was transferred to the ICU on April [address] [facility] of hypercapnic and hypoxemic resp failure failure for BiPAP, and subsequently required emergent tracheal intubation. 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 ECHO 08/2021 showed:? Severely dilated CMOP.? Normal LV wall thickness. ?LV systolic function severely decreased, EF15-20%. ?Mildly increased RV cavity size w mild-moderately decreased function.? Normal mechanical prosthetic MV fxn.? Severe biatrial enlargement.? Mod-severe TR with dilated, poorly collapsing IVC, RVSP 49mm. Previous functional status:? Mrs. Garza moved in w her daughter and the daughter?s this past July she needed more care.? Yeny works as her mother?s care team assistant, and is the HCP.? Mrs. Garza walks w a walker.? She gets out of the house a few days a week.? Yeny helps her bathe and dress.? She is independent with eating and toileting.? The patient considered her quality of life to be satisfactory.? Yeny told me that the patient had had discussions with her kidney doctor in regards to the fact that dialysis was likely coming in the future.? She filled out a MOLST form in 09/2021 designating full support. HISTORY OF PRESENT ILLNESS:? The patient was admitted to [facility] 03/15/2022 with dyspnea secondary to heart failure exacerbation.? Hospital course was complicated by urinary retention with traumatic wilson placement resulting in hematuria requiring transfusion of total 9 units RBCs, culminating in cystoscopy w fulgaration for bleeding control on 03/24; development of right-sided pleural effusion, s/p therapeutic thoracentesis 1.2 L on April 03; and progressive renal failure initiated on hemodialysis on 04/05/2022 via Left IJ temp dialysis catheter (instead of permcath bec of elevated INR) On 04/06 the patient developed lethargy, hypoxemia and for hypercarbia.? She was put on BiPAP and transferred to ICU.? CXR showed reaccumulation of right-sided pleural effusion and new infiltrates on the left, thought secondary to aspiration.? Right thoracentesis removed 800 cc of serosanguineous fluid, but without improvement in her respiratory status.? The patient was emergently intubated.? The patient was started on Zosyn for empiric pulmonary aspiration coverage. The post-intubation CXR reading missed a right basilar pneumothorax, which was undetected until a film done later that night after OGT placement showed a large tension PTX.? A pigtail drainage catheter was placed which, after repositioning, drained the entire hydropneumothorax.? The patient was not dialyzed that day because of hemodynamic instability. My bedside ECHOCARDIOGRAM for hemodynamic monitoring on April 07 showed: 1. Normal LV wall thickness 2. LV is at least mildly dilated with severe systolic dysfunction, and marked regional wall motion abnormalities.? The septum and apex are akinetic.? Overall EF 10-15% maximum. 3. RV size looked normal to me 4. 2-3 + TR by color-flow.? CWD signal measured 2.5 m/s (gradient 25mm). 5. IVC measured 2.4 cm, with minimal inspiratory collapse.? Estimated CVP 15 mm.? Estimated RVSP 40mm. For anticoagulation for her mechanical valve, we switched her from Coumadin to a heparin infusion (in case of need for rapid reversal).? On April 08, she underwent her second HD.? The Levophed requirement jeff significantly during HD, despite albumin infusion.? Towards the end, she started having ventricular ectopy, then sinus tachycardia, at which point we ended the dialysis session; only 1.5L taken off.? Her HR and Levophed requirement came down.? About 1 hour later, the morphology of her bedside monitor tracing changed.? An EKG showed lateral ST segment elevation suggestive of acute NJ.? Discussed with Dr. Estrella.? She was already on heparin infusion.? We added aspirin and statin.? Troponin came back at 1185, but the repeat trop was down to 1009.? Her Levophed dose was stable (i.e. no apparent hemodynamic sequellae). The right chest tube was pulled on April 09.? Heparin was restarted at a fixed dose of 10u/kg/hr, then ; increased to a fixed dose of 11 units/kg/hr.? We were cautious with the heparin dose because of bloody tracheal secretions.? On 11 units/kg/hr, PTT was running about 48.? Started having blood tracheal secretions again on April 11, so we cut the dose back to 10 u/kg/hr.? But then yesterday morning, she had blackish/brown aspirate from her OGT, without a Hb drop, suggesting stress gastritis.? The heparin drip was stopped for 24h, restarted today at 10u/kg/hr.? On our last spontanous breathing trial w pressure support on April 10, she immediately failed, even at 20 and 25 cm PS.? RR and Ve jeff, and she was obviously uncomfortable. ?We put her back on low dose propofol. 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 On April 10, she was started on doxycycline at Dr. Yo?s suggestion bec of the leukocytosis. We held dialysis on April 09 and (after the acute ischemic episode).? She failed a diuretic challenge with Bumex 4mg and Diuril 500mg; she had no u/o response.? We dialyzed her on April 11 and , took off about 900cc each day, tolerated the dialysis with only a small bump in her Levophed dose each session. On April 11, I repeated her bedside ECHO bec of higher Levophed requirements:? LV fxn looked the same or possibly slightly worse.? [place] and septum still akinetic.? EF 10%.? TR was worse, at least 2+ or worse, CWD was higher, measured 4.0 m/sec (gradient 64mm).? IVC measured 1.65cm w minimal insp collapse.? I saw a mass on the underside (ventricular side) of the MV.? D/W Dr. Estrella, he asked me to get a full echo.? Echo by the tech showed EF 15-20%.? Mildly enlarged RV, severely dilated LA, possible mass (thrombus or vegetation) on atrial side of the prosthetic valve, according to Dr. Estrella?s report.? I echo?d the patient again today and confirmed that the mass that I see is on the ventricular side of the valve; I don?t see the atrial side well enough to comment on that. This morning, aspirate of her OGT is orange (the color the lactulose that she was given.? Has had not stool in more than a week.? I digitally disimpacted her last night for a moderate amount of soft brown stool.? We?ve tried giving her Go Lytely, but it?s not getting out of her stomach.? She?s on propofol 10ug, fentanyl is off bec of ? ileus, Levophed is 0.42ug, and diltiazem is at 5mg/hr.? HR is 111, in chronic atrial fibrillation.? BP 91/52.? On assist control 14/350/25%/+5, RR is 14-17, Ve 6L, PIP 19cm, ETCO2 30mm, Sat 96%.? This morning's CVBG showed 7.36/29/-7.? Afebrile.? Obvious prosthetic left eye.? ? minor icteric sclerae.? No JVD at 30?.? Chest CTA with normal exp phase.? Irregular rate and rhythm, audible click of her mitral valve.? I heard no murmur or gallops.? Abdomen is distended and firm.? She has at least 2+ central edema. The patient has a 1 x 2 inch pupuric unstageable DTI on her coccyx. LABORATORY DATA:? As below.? Notably, WBC 17, INR 1.3, BUN/creatinine 50/3.4, with potassium up to 4.4, bicarb down to 16, phos 5.2. MICROBIOLOGY:? No positive cultures.? Blood cultures drawn yesterday are negative so far. IMPRESSION:? 1. Underlying severe dilated biventricular ischemic CMOP, which is pretty much the source of all her other problems, including the renal failure and difficulty with dialysis, the resp failure, and the cachexia.? This does not appear remediable.? Pulmonary hemodynamics may be worse than earlier this week, based on my echo from 04/11. 2. Underlying CAD w echo evidence of previous NJ. 3. Underlying mechanical prosthetic MV.? Needs anticoagulation.? Switched to heparin while she is critically ill, but we?ve had to hold it a number of days bec of bleeding (urological, tracheal, and most recently upper GI.? Note that her stool yesterday when I disimpacted her was yellow brown).? Now she?s back on low dose heparin, target PTT about 50. 4. Possible new mitral valve mass.? Vegetation or thrombus.? We would need a SANDRA to further define it.? New blood cultures are negative so far.? I discussed that with the patient?s daughter today. 5. Underlying Chronic afib.? Controlled now w ditiazem.? Hesitant to use beta-hubert because of severe cardiomyopathy. 6. Underlying hypothyroidism.? Continue thyroid. 7. Acute hypercarbic & hypoxemic resp failure.? 2? exac of chronic systolic heart failure.? She?s too weak now to do anything but barely initiating a breath.? And she?s still volume overloaded.? Pulling volume very slowly on HD.? If we continue critical care management, she?ll need a tracheostomy. 8. ICU myopathy. 9. Hypotension.? Most likely 2? combination of severe CMOP and acute renal failure.? Lactate and blood cultures have been negative. ?Continue midodrine (altho it?s probably not being absorbed).? Target BP is 90 systolic or MAP about 60. 10. Acute on chronic renal failure.? Secondary to ATN.? It?s almost a certainty that she?ll require permanent hemodialysis henceforth.? The daughter is aware. 11. ID.? New left lung infiltrates on 04/06 were most likely 2? aspiration pneumonia.? FiO2 now down to 25%, she?s afebrile, and her left lung looks almost clear.? But WBC still high.? D/c?d the Zosyn on April 09. ?Dr. Yo saw her April 10, put her on Doxy.? Nasal MRSA swab was negative, and Legionella Ag is pending. 12. She had an acute ischemic event after HD on 04/08 (lateral ST elevation), but troponin pattern was flat.? No obvious acute hemod sequelae.? We put her on heparin, ASA, statin, but we?ve had to hold the heparin intermittently.? Otherwise nothing to do (not a candidate for a cath). 13. UGI bleed yesterday morning.? No hemodynamic impact, and Hb was only down 0.7 grams.? I put her on bid Protonix. 14. Right-sided pneumothorax.? Resolved.? I expect her to reaccumulate her right pleural effusion if she?s not dialyzed. 15. Laxation.? KUB showed stool and air thoughout the colon.? No obstruction.? Scattered air-filled loops of small bowel suggest underlying ileus.? We stopped the fentanyl and I gave her a dose of Relistor.? We?ve tried lactulose and Go lytely.? Neither of them are getting through her stomach.? We?ve disimpacted her, given her mult mineral enemas, then a soap suds enema today.? Her rectum is clean on today?s digital exam.? Nothing?s moving from above. 16. DTI Coccyx.? Likely a pressure injury 2? deficient skin blood flow and poor tissue quality due to PCM.? In a patient like this, I don?t believe that pressure wounds are practically avoidable. 17. Nutrition:? Severe PCM.? 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 I put a CVL in today (separate procedure) at the daughter?s insistence and we?ll start TPN. Daughter Yeny cell phone:? [phone]. Prognosis is grave.? Likelihood of surviving this hospitalization is pretty much nil, IMO and that of , who I?ve spoken with almost daily. I spoke with the patient?s two health care proxies in conference yesterday:? The patient?s daughter Yeny and the patient?s brother.? I went over [place]?s list of problems, I?ve indicated that things are getting worse every day, one thing after another, and that she?s not going to survive.? Unfortunately, her brother keeps harkening back to the past, and insists on continuing the course, altho he?s agreed to no resuscitation if her heart stops.? I believe Yeny is coming around to see that survival is not likely. I talked to Yeny again today at the bedside.? They want to keep going. I?ve written DNR orders. Critical care time (excluding procedures): ?75+ min. Critical Care Time (minutes): 75 Physical Exam Vital Signs: Vital Signs: Last Vital Signs Temp 99.1 F 04/13/22 13:00 Pulse 115 H 04/13/22 13:00 Resp 29 H 04/13/22 13:00 BP 91/47 L 04/13/22 13:00 Pulse Ox 96 04/13/22 13:00 BMI result Body Mass Index 24.7 Objective Data Labs CBC & Chem 7: 04/13/22 05:18 04/13/22 05:20 Labs: Laboratory Results - last 24 hr 04/12/22 04/12/22 04/12/22 15:04 15:11 15:27 WBC RBC Hgb 8.4 L Hct 26.1 L MCV MCH MCHC RDW Plt Count MPV Absolute Nucleated RBC Nucleated RBC % (auto) PT INR aPTT Heparin Protocol VBG pH 7.35 VBG pCO2 32 VBG pO2 70 VBG HCO3 18 L VBG O2 Saturation 93.0 VBG Base Excess -6.4 Sodium 136 Potassium 4.2 D Chloride 103 Carbon Dioxide 18 L Anion Gap 19 BUN 41 H Creatinine 2.89 H Estim Creat Clear Calc 18.9 Estimated GFR 16 Random Glucose 86 Calcium 7.1 L Phosphorus Total Bilirubin AST ALT Alkaline Phosphatase B-Natriuretic Peptide Total Protein Albumin 04/13/22 04/13/22 04/13/22 05:16 05:18 05:18 WBC 17.3 H RBC 2.54 L Hgb 7.7 L Hct 24.0 L MCV 94.5 MCH 30.3 MCHC 32.1 RDW 19.0 H Plt Count 137 L MPV 12.0 Absolute Nucleated RBC 0.160 H Nucleated RBC % (auto) 0.9 H PT 15.4 H INR 1.3 H aPTT Heparin Protocol 36.1 L D VBG pH 7.36 VBG pCO2 29 VBG pO2 51 VBG HCO3 16 L VBG O2 Saturation 81.0 VBG Base Excess -7.4 Sodium Potassium Chloride Carbon Dioxide Anion Gap BUN Creatinine Estim Creat Clear Calc Estimated GFR Random Glucose Calcium Phosphorus Total Bilirubin AST ALT Alkaline Phosphatase B-Natriuretic Peptide Total Protein Albumin 04/13/22 04/13/22 05:18 05:20 WBC RBC Hgb Hct MCV MCH MCHC RDW Plt Count MPV Absolute Nucleated RBC Nucleated RBC % (auto) PT INR aPTT Heparin Protocol VBG pH VBG pCO2 VBG pO2 VBG HCO3 VBG O2 Saturation VBG Base Excess Sodium 134 L Potassium 4.4 Chloride 104 Carbon Dioxide 16 L Anion Gap 18 BUN 50 H Creatinine 3.40 H Estim Creat Clear Calc 16.1 Estimated GFR 13 Random Glucose 78 Calcium 7.0 L Phosphorus 5.2 H Total Bilirubin 1.7 H AST 321 H ALT 214 H Alkaline Phosphatase 198 H D B-Natriuretic Peptide 2730 H Total Protein 4.9 L Albumin 2.0 L Microbiology Microbiology Results: Microbiology 04/07/22 15:15 Blood - Venous Blood Culture - Final No growth after 5 days. 04/07/22 15:15 Blood - Venous Blood Culture - Final No growth after 5 days. 04/08/22 10:43 Sputum - Suctioned Gram Stain - Final 04/08/22 10:43 Sputum - Suctioned Sputum Culture - Final 04/03/22 11:30 Thoracentesis Fluid Gram Stain - Final 04/03/22 11:30 Thoracentesis Fluid Anaerobic Culture - Final NO GROWTH AFTER 5 DAYS 04/03/22 11:30 Thoracentesis Fluid Body Fluid Culture - Final No growth after 2 days Quality Stroke Does the patient have a stroke diagnosis?: No VTE Prior VTE?: No VTE Risk Level:: Medical - moderate - high VTE Device Contraindication: N/A - Device Ordered VTE Drug Contraindication: N/A - Med Ordered Critical Care Time Critical Care Time (minutes): 90
--- NOTE | 2022-04-13 14:19 | PCN2_ITS ---
Brief Operative Note Date of procedure: 04/13/22 Pre-op diagnosis: Central venous line placement for IV access Post-op diagnosis: same Procedure: PROCEDURE:? Insertion right internal jugular triple lumen central venous catheter. INDICATION:? Venous access for TPN. ANESTHESIA:? Local plus propofol infusion. PROCEDURE:? Vascular ultrasound was used to examine the right neck.? A large compressible internal jugular vein was noted, superior to the carotid artery.? The site of the vein was marked. A supraclavicular subclavian vein was noted, but the patient's body habitus precluded that approach. The right neck was widely prepped and draped in full sterile fashion.? Local anesthesia was applied to the RIJV insertion site.? Under US guidance, the right IJ vein was cannulated on the 3rd pass of the 18 g thin wall needle, w return of dark, non-pulsatile blood.? The wire was threaded but went up into the neck. The needle and wire were removed without incident. The vein was cannulated again on the next pass, and this time the wire went down into the heart with no problem.? The 16cm x 7 Upper Sorbian triple-lumen CVC was advanced into the vein up to the 14.5 cm cristofer via Seldinger technique without incident.? There was good blood return x3.? The catheter was sutured x3 and a Biopatch and dry sterile dressing were applied. Postop chest x-ray shows the line possibly down into the atrium. The patient tolerated the procedure well w no complications. Anesthesia: local Surgeon: Junior Delgado
[2022-04-13] MEDS: Pantoprazole Sodium 40 MG/10 ML VIAL IVPUSH (15:28)
--- NOTE | 2022-04-13 17:44 | PM.PNNEP ---
Subjective Subjective Date of Service: 04/13/22 Principal diagnosis: acute on chronic CHF, hematuria, mechanical Mitral valve Interval history: Chart Reviewed. Events noted. Physical Exam Vital Signs: Vital Signs: Last Vital Signs Temp 99.0 F 04/13/22 16:56 Pulse 116 H 04/13/22 16:56 Resp 23 H 04/13/22 16:56 BP 101/54 L 04/13/22 16:56 Pulse Ox 97 04/13/22 16:56 BMI result Body Mass Index 24.7 Const: General: no acute distress HEENT: Head: Yes normocephalic Neck: Neck: Yes no JVD Resp: Auscultation: clear to auscultation bilaterally Cardio: Jugular venous distension: no JVD Rate: regular rate Rhythm: regular rhythm Heart sounds: S1 normal heart sound present and S2 normal heart sound present GI: Auscultation: normal bowel sounds Neuro: Other: Sedated Extrem: General: Yes no joint enlargement and Yes no clubbing, cyanosis or edema Objective Data Labs CBC & Chem 7: 04/13/22 05:18 04/13/22 05:20 Labs: Laboratory Results - last 24 hr 04/13/22 04/13/22 04/13/22 05:16 05:18 05:18 WBC 17.3 H RBC 2.54 L Hgb 7.7 L Hct 24.0 L MCV 94.5 MCH 30.3 MCHC 32.1 RDW 19.0 H Plt Count 137 L MPV 12.0 Absolute Nucleated RBC 0.160 H Nucleated RBC % (auto) 0.9 H PT 15.4 H INR 1.3 H aPTT Heparin Protocol 36.1 L D VBG pH 7.36 VBG pCO2 29 VBG pO2 51 VBG HCO3 16 L VBG O2 Saturation 81.0 VBG Base Excess -7.4 Sodium Potassium Chloride Carbon Dioxide Anion Gap BUN Creatinine Estim Creat Clear Calc Estimated GFR Random Glucose Calcium Phosphorus Total Bilirubin AST ALT Alkaline Phosphatase B-Natriuretic Peptide Total Protein Albumin 04/13/22 04/13/22 05:18 05:20 WBC RBC Hgb Hct MCV MCH MCHC RDW Plt Count MPV Absolute Nucleated RBC Nucleated RBC % (auto) PT INR aPTT Heparin Protocol VBG pH VBG pCO2 VBG pO2 VBG HCO3 VBG O2 Saturation VBG Base Excess Sodium 134 L Potassium 4.4 Chloride 104 Carbon Dioxide 16 L Anion Gap 18 BUN 50 H Creatinine 3.40 H Estim Creat Clear Calc 16.1 Estimated GFR 13 Random Glucose 78 Calcium 7.0 L Phosphorus 5.2 H Total Bilirubin 1.7 H AST 321 H ALT 214 H Alkaline Phosphatase 198 H D B-Natriuretic Peptide 2730 H Total Protein 4.9 L Albumin 2.0 L Microbiology Microbiology Results: Microbiology 04/12/22 15:27 Blood - Venous Blood Culture - Preliminary No growth after 24 hours. 04/12/22 15:27 Blood - Venous Blood Culture - Preliminary No growth after 24 hours. 04/07/22 15:15 Blood - Venous Blood Culture - Final No growth after 5 days. 04/07/22 15:15 Blood - Venous Blood Culture - Final No growth after 5 days. 04/08/22 10:43 Sputum - Suctioned Gram Stain - Final 04/08/22 10:43 Sputum - Suctioned Sputum Culture - Final 04/03/22 11:30 Thoracentesis Fluid Gram Stain - Final 04/03/22 11:30 Thoracentesis Fluid Anaerobic Culture - Final NO GROWTH AFTER 5 DAYS 04/03/22 11:30 Thoracentesis Fluid Body Fluid Culture - Final No growth after 2 days Procedures Date of Service Date of Service: 04/13/22 Assessment & Plan Assessment and plan (1) CKD (chronic kidney disease) stage 5, GFR less than 15 ml/min: Status: Acute (2) Acute respiratory failure: Status: Acute Plan Plan 1. ALIZA on adv CKD now prog to ESRD and HD started 04/05. UF performed on 04/06. HD on 04/08 however patient became hypotensive and tachycardic. S/P HD with low BFR on 04/11. Continue to monitor renal function and volume status. Can consider prn HD with low BFR for supportive care although overall prognosis is poor. Reassess HD needs daily Suggest lokelma 10 G prn K> 5.0. 2. Resp Failure: events noted--s/p thoracentesis and now on vent 3. Anemia 4. MBD of CKD-continue sevelamer tid. 5. SOB critically ill Time Spent With Patient Time: Total time spent is greater than 50% in coordination of care (as documented) at patient's floor/unit and/or counseling patient: Progress Note: Quality Stroke Does the patient have a stroke diagnosis?: No
[2022-04-13] MEDS: propofoL 1,000 MG/100 ML VIAL 3.73 MG IVCONT (17:55)
[2022-04-14] VITALS (45 sets, daily range): BP systolic 71–113; BP diastolic 39–63; PULSE 98–118; RESP 14–27; TEMP 35–37.2; O2SAT 94–98; BMI 26.4
[2022-04-14] MEDS: Pantoprazole Sodium 40 MG/10 ML VIAL IVPUSH ×2 (03:10→15:33)
[2022-04-14] MEDS: dilTIAZem HCL 125 MG in 0.9 % Sodium Chloride 100 ML IVCONT (03:10)
[2022-04-14] MEDS: Lactulose 20 GM/30 ML SOLUTION PO (03:11)
[2022-04-14] MEDS: Levothyroxine Sodium 112 MCG, Levothyroxine Sodium 25 MCG 137 MCG PO (04:46)
[2022-04-14] MEDS: propofoL 1,000 MG/100 ML VIAL 3.73 MG IVCONT ×2 (04:46→19:51)
[2022-04-14 05:09] LABS: VBG Base Excess -7.9 mmol/L; VBG HCO3 15 mmol/L (22-26); VBG pCO2 23 mmHg; VBG pH 7.41 (7.32-7.43); VBG pO2 48 mmHg
[2022-04-14 05:23] LABS: Hematocrit 23.3 % (37.0-47.0); Hemoglobin 7.5 g/dl (12.0-16.0); Mean Corpuscular HGB Conc 32.2 g/dl (31.0-35.0); Mean Corpuscular Hemoglobin 29.6 pg (27.0-33.0); Mean Corpuscular Volume 92.1 fL (80.0-98.0); Mean Platelet Volume 11.5 fL (9.4-12.3); Platelet Count 118 X10*3/uL (160-400); Red Blood Count 2.53 X10*6/uL (4.20-5.50); Red Cell Distribution Width 19.1 % (11.0-16.0); White Blood Count 16.5 X10*3/uL (4.8-10.8)
[2022-04-14 05:24] LABS: NRBC Pct Auto 1.3 /100WBC (0.0-0.2)
[2022-04-14 05:37] LABS: PTT Heparin Drip 45.6 SEC (53-77.9)
[2022-04-14 05:47] LABS: Alanine Aminotransferase 160 U/L (0-31); Albumin Level 1.7 g/dL (3.5-5.0); Alkaline Phosphatase 195 U/L (39-117); Anion Gap 17 (12-20); Aspartate Amino Transferase 177 U/L (5-31); Bilirubin Total 1.4 mg/dL (0.0-1.0); Blood Urea Nitrogen 60 mg/dL (9-16); Calcium 6.7 mg/dL (8.4-10.2); Carbon Dioxide 15 mmol/L (22-29); Chloride 106 mmol/L (96-108); Creatinine Clr Calc Pharmacy 16.2; Estimated Glomerular Filt Rate 12; Glucose Random 153 mg/dL (60-115); Magnesium 1.9 mg/dL (1.6-2.6); Phosphorus 5.2 mg/dL (2.7-4.5); Potassium 4.4 mmol/L (3.3-5.1); Sodium 134 mmol/L (135-145); Total Protein 4.5 g/dL (6.5-8.0)
[2022-04-14 06:17] LABS: Venous Blood Gas Refer to POC result
[2022-04-14] MEDS: Chlorhexidine Gluc Oral Rinse 15 ML MOUTHWASH BUCCAL ×3 (08:07→19:57)
[2022-04-14] MEDS: 0.9 % Sodium Chloride Flush 3 ML SYRINGE IVFLUSH ×2 (08:07→15:33)
[2022-04-14] MEDS: Midodrine HCl 10 MG TABLET OG-TUBE (08:07)
[2022-04-14] MEDS: Aspirin 81 MG TAB.CHEW G-TUBE (08:07)
[2022-04-14] MEDS: Atorvastatin Calcium 40 MG TABLET G-TUBE (08:07)
[2022-04-14] MEDS: Artificial Tears 15 ML DROPS 1 DROP EYE-BOTH ×3 (08:08→22:19)
[2022-04-14] MEDS: Doxycycline Hyclate 100 MG in 0.9 % Sodium Chloride 250 ML 166.67 MG IV ×2 (09:00→21:30)
--- NOTE | 2022-04-14 09:30 | MHC.CLN ---
F/U NSG REPORTED PT WITHOUT BM S/P SUPPOSITORY, ENEMAS, BERONICA-TAIWO NOGUEIRA NOTED POSSIBLE ILEUS PT RECEIVED TPN D10AA5 AT 45ML/HR PROVIDED 767KCALS, 54G PROTEIN RECOMMEND INCREASING TPN D15AA5% AT 65ML/HR TO PROVIDE 1108KCALS, 78G PROTEIN (1.25G/KG) PT MAY BE AT RISK FOR RE-FEEDING MONITOR MG, PHOS, K+ CLOSELY AND CHECK TRIGS DISCUSSED CASE WITH PHARMACY RD AVAILABLE VIA TIGER TEXT IF NEEDED
[2022-04-14 10:15] LABS: Triglycerides 72 mg/dL
--- NOTE | 2022-04-14 11:02 | P.PNNP_ITS ---
Subjective Subjective Date of Service: 04/14/22 Principal diagnosis: Acute on chronic CHF, hematuria, mechanical Mitral valve Interval history: Chart Reviewed. Events noted. Physical Exam Vital Signs: Vital Signs: Last Vital Signs Temp 98.6 F 04/14/22 11:00 Pulse 115 H 04/14/22 11:00 Resp 22 H 04/14/22 11:00 BP 91/53 L 04/14/22 11:00 Pulse Ox 95 04/14/22 11:00 BMI result Body Mass Index 26.4 Neck: Neck: Yes supple Resp: Auscultation: diminished lung sounds Cardio: Jugular venous distension: no JVD Heart sounds: no murmurs and no r ubs GI: Palpation (GI): Soft to palpation Skin: General skin exam: no rashes or lesions noted Extrem: Right upper extremity: edema Left upper extremity: edema Objective Data Labs CBC & Chem 7: 04/14/22 05:04 04/14/22 05:04 Labs: Laboratory Results - last 24 hr 04/14/22 04/14/22 04/14/22 05:00 05:04 05:04 WBC 16.5 H RBC 2.53 L Hgb 7.5 L Hct 23.3 L MCV 92.1 MCH 29.6 MCHC 32.2 RDW 19.1 H Plt Count 118 L MPV 11.5 Absolute Nucleated RBC 0.220 H Nucleated RBC % (auto) 1.3 H aPTT Heparin Protocol VBG pH 7.41 VBG pCO2 23 VBG pO2 48 VBG HCO3 15 L VBG O2 Saturation 81.0 VBG Base Excess -7.9 Sodium 134 L Potassium 4.4 Chloride 106 Carbon Dioxide 15 L Anion Gap 17 BUN 60 H Creatinine 3.69 H Estim Creat Clear Calc 16.2 Estimated GFR 12 Random Glucose 153 H Calcium 6.7 L Phosphorus 5.2 H Magnesium 1.9 Total Bilirubin 1.4 H AST 177 H ALT 160 H Alkaline Phosphatase 195 H Total Protein 4.5 L Albumin 1.7 L Triglycerides 72 04/14/22 05:04 WBC RBC Hgb Hct MCV MCH MCHC RDW Plt Count MPV Absolute Nucleated RBC Nucleated RBC % (auto) aPTT Heparin Protocol 45.6 L D VBG pH VBG pCO2 VBG pO2 VBG HCO3 VBG O2 Saturation VBG Base Excess Sodium Potassium Chloride Carbon Dioxide Anion Gap BUN Creatinine Estim Creat Clear Calc Estimated GFR Random Glucose Calcium Phosphorus Magnesium Total Bilirubin AST ALT Alkaline Phosphatase Total Protein Albumin Triglycerides Microbiology Microbiology Results: Microbiology 04/12/22 15:27 Blood - Venous Blood Culture - Preliminary No growth after 24 hours. 04/12/22 15:27 Blood - Venous Blood Culture - Preliminary No growth after 24 hours. 04/07/22 15:15 Blood - Venous Blood Culture - Final No growth after 5 days. 04/07/22 15:15 Blood - Venous Blood Culture - Final No growth after 5 days. 04/08/22 10:43 Sputum - Suctioned Gram Stain - Final 04/08/22 10:43 Sputum - Suctioned Sputum Culture - Final 04/03/22 11:30 Thoracentesis Fluid Gram Stain - Final 04/03/22 11:30 Thoracentesis Fluid Anaerobic Culture - Final NO GROWTH AFTER 5 DAYS 04/03/22 11:30 Thoracentesis Fluid Body Fluid Culture - Final No growth after 2 days Procedures Date of Service Date of Service: 04/14/22 Assessment & Plan Assessment and plan (1) CKD (chronic kidney disease) stage 5, GFR less than 15 ml/min: Status: Acute Plan 1. ALIZA on adv CKD now prog to ESRD and HD started 04/05. UF performed on 04/06. HD on 04/08 however patient became hypotensive and tachycardic. S/P HD with low BFR on 04/11. Continue to monitor renal function and volume status. prn HD with low BFR for supportive care although overall prognosis is poor. Reassess HD needs daily Suggest lokelma 10 G prn K> 5.0. 2. Resp Failure: events noted--s/p thoracentesis and now on vent 3. Anemia 4. MBD of CKD-continue sevelamer tid. 5. SOB critically ill Time Spent With Patient Time: Total time spent is greater than 50% in coordination of care (as documented) at patient's floor/unit and/or counseling patient: Progress Note: Quality Stroke Does the patient have a stroke diagnosis?: No
--- NOTE | 2022-04-14 12:46 | PM.CCPN ---
Subjective Subjective Date of Service: 04/14/22 Interval History: 71-year-old female with a remote mitral valve replacement with mechanical prosthesis and coronary bypass surgery presents with a acute on chronic hypercarbic and hypoxemic respiratory failure that required intubation and in addition developed acute renal failure and currently with a dialysis catheter and has hemodynamic trouble tolerating dialysis most especially in fluid removal known to have significant biventricular failure and 1 week ago had an event resulting in a peak troponin of about 1200 in and a fairly flat profile but had clear-cut precordial ST segment elevation in a precordial med already had diminished R-wave progression V1 to V4 so either taco tube 0 or ordered or of course we cannot rule out the possibility of there having been an unstable ischemic event and remains on a continued low-dose of heparin at 10 units/kilogram per hour and without a significant increase in the PTT and is also on aspirin and a tore the statin remains sedated on propofol on the ventilator at minimal FiO2 25% also status post thoracentesis and there is residual right pleural effusion but that resulted in a tension pneumothorax which was relieved with the chest 2 which is now removed. Still has persistent ileus and her only output really is gastric and and that is probably going to exceed 500 cc for the she shift I repeated bedside echo and she clearly has an extensive anterior 0 apical akinesis just the base of the heart very very poor ejection fraction certainly lower than originally stated and well performing mitral valve mechanical prosthesis with precise opening and closing in diastole and systole respectively no paravalvular leak no significant increase in velocity Critical Care Time (minutes): 60 Physical Exam Vital Signs: Vital Signs: Last Vital Signs Temp 98.6 F 04/14/22 12:00 Pulse 116 H 04/14/22 12:00 Resp 22 H 04/14/22 12:00 BP 94/54 L 04/14/22 12:00 Pulse Ox 95 04/14/22 12:00 BMI result Body Mass Index 26.4 Remains in a regular tachycardia rate 115 Cardizem has been stopped again because of ileus issues but she has a 95% oxygen saturation blood pressure of 90/50 and easily palpable bilateral carotids Diminished bilateral breath sounds Distended abdomen with absent bowel sounds but no palpable organomegaly There is palpable 1+ edema End-tidal CO2 is diminished at 22 implying of course the diminished cardiac output and still remains an uric Objective Data Labs CBC & Chem 7: 04/14/22 05:04 04/14/22 05:04 Labs: Laboratory Results - last 24 hr 04/14/22 04/14/22 04/14/22 05:00 05:04 05:04 WBC 16.5 H RBC 2.53 L Hgb 7.5 L Hct 23.3 L MCV 92.1 MCH 29.6 MCHC 32.2 RDW 19.1 H Plt Count 118 L MPV 11.5 Absolute Nucleated RBC 0.220 H Nucleated RBC % (auto) 1.3 H aPTT Heparin Protocol VBG pH 7.41 VBG pCO2 23 VBG pO2 48 VBG HCO3 15 L VBG O2 Saturation 81.0 VBG Base Excess -7.9 Sodium 134 L Potassium 4.4 Chloride 106 Carbon Dioxide 15 L Anion Gap 17 BUN 60 H Creatinine 3.69 H Estim Creat Clear Calc 16.2 Estimated GFR 12 Random Glucose 153 H Calcium 6.7 L Phosphorus 5.2 H Magnesium 1.9 Total Bilirubin 1.4 H AST 177 H ALT 160 H Alkaline Phosphatase 195 H Total Protein 4.5 L Albumin 1.7 L Triglycerides 72 04/14/22 05:04 WBC RBC Hgb Hct MCV MCH MCHC RDW Plt Count MPV Absolute Nucleated RBC Nucleated RBC % (auto) aPTT Heparin Protocol 45.6 L D VBG pH VBG pCO2 VBG pO2 VBG HCO3 VBG O2 Saturation VBG Base Excess Sodium Potassium Chloride Carbon Dioxide Anion Gap BUN Creatinine Estim Creat Clear Calc Estimated GFR Random Glucose Calcium Phosphorus Magnesium Total Bilirubin AST ALT Alkaline Phosphatase Total Protein Albumin Triglycerides Microbiology Microbiology Results: Microbiology 04/12/22 15:27 Blood - Venous Blood Culture - Preliminary No growth after 24 hours. 04/12/22 15:27 Blood - Venous Blood Culture - Preliminary No growth after 24 hours. 04/07/22 15:15 Blood - Venous Blood Culture - Final No growth after 5 days. 04/07/22 15:15 Blood - Venous Blood Culture - Final No growth after 5 days. 04/08/22 10:43 Sputum - Suctioned Gram Stain - Final 04/08/22 10:43 Sputum - Suctioned Sputum Culture - Final 04/03/22 11:30 Thoracentesis Fluid Gram Stain - Final 04/03/22 11:30 Thoracentesis Fluid Anaerobic Culture - Final NO GROWTH AFTER 5 DAYS 04/03/22 11:30 Thoracentesis Fluid Body Fluid Culture - Final No growth after 2 days Progress Note: A&P Assessment and plan (1) Leukocytosis: Status: Acute (2) CKD (chronic kidney disease) stage 5, GFR less than 15 ml/min: Status: Acute (3) Acute respiratory failure: Status: Acute (4) CKD (chronic kidney disease) stage 5, GFR less than 15 ml/min: Status: Acute (5) Pleural effusion: Status: Acute (6) Hypotension: Status: Acute (7) CKD (chronic kidney disease) stage 4, GFR 15-29 ml/min: Status: Acute (8) Acute kidney failure: Status: Acute (9) Gross hematuria: Status: Acute (10) Acute on chronic heart failure with reduced ejection fraction and diastolic dysfunction: Status: Acute (11) Congestive heart failure: Status: Acute (12) Abdominal pain: Status: Acute (13) Hyperkalemia: Status: Acute (14) H/O mitral valve replacement: Status: Acute (15) ICD (implantable cardioverter-defibrillator) in place: Status: Acute (16) Renal cyst: Status: Acute (17) Hematuria: Status: Acute (18) Low back pain: Status: Acute (19) Ascites: Status: Acute (20) Hematuria: Status: Acute (21) Ischemic cardiomyopathy: Status: Acute (22) Hypothyroid: Status: Acute (23) Hypercholesterolemia: Status: Acute (24) CHF (congestive heart failure): Status: Acute (25) Chronic atrial fibrillation: Status: Acute (26) Anemia: Status: Acute (27) Detached retina: Status: Acute (28) Elevated alkaline phosphatase level: Status: Acute (29) Bilateral edema of lower extremity: Status: Acute (30) External hemorrhoid, bleeding: Status: Acute (31) Ascites: Status: Acute (32) Pressure ulcer: Status: Acute (33) Prosthetic eye globe: Status: Acute (34) Generalized anxiety disorder: Status: Acute (35) Pancreatitis: Status: Acute (36) History of breast cancer: Status: Acute (37) Pressure ulcer: Status: Acute (38) Acute insomnia: Status: Acute (39) Hyperkalemia: Status: Acute (40) Current use of anticoagulant therapy: Status: Acute (41) Right knee pain: Status: Acute (42) Pulmonary hypertension: Status: Acute Plan The plan is to maintain support as above and I feel that the prognosis here is grave based on the severe heart depression and and I think that the short of transplant Maritza is be in in unsupported will state The ileus might very well be on the basis of severe biventricular failure possibly a a passive congestion issue but it does appear that the bowel wall is did is diffusely very edematous Quality Stroke Does the patient have a stroke diagnosis?: No VTE Prior VTE?: No VTE Risk Level:: Medical - moderate - high VTE Device Contraindication: N/A - Device Ordered VTE Drug Contraindication: N/A - Med Ordered
[2022-04-14] MEDS: Heparin Sodium,Porcine/1/2NS 25,000 UNIT/250 ML IV.SOLN 7.62 UNIT IVCONT (13:20)
[2022-04-15] VITALS (51 sets, daily range): BP systolic 82–147; BP diastolic 47–73; PULSE 70–132; RESP 17–32; TEMP 34.9–38.2; O2SAT 92–96; BMI 27.6
--- NOTE | 2022-04-15 | EEG_ITS ---
Background activity consists of severe diffuse slowing of 0.5-1 hertz slow delta with some burst suppression, seen throughout the record. No paroxysmal features are identified. Photic stimulation was omitted. IMPRESSION: This is a markedly abnormal EEG due to severe background slowing in a slow delta range with some periodically delta waves in a generalized bilateral distribution that is consistent with severe generalized encephalopathy or brainstem lesion. No epileptiform discharges were seen. MD ANDREA Noel/ABIGAIL / [id number]
[2022-04-15] MEDS: 0.9 % Sodium Chloride Flush 3 ML SYRINGE IVFLUSH ×3 (00:43→15:14)
[2022-04-15] MEDS: Phenylephrine HCL 20 MG in 0.9 % Sodium Chloride 250 ML 30.62 MG IVCONT (00:45)
[2022-04-15] MEDS: Albumin Human 25 % 100 ML IV ×2 (01:23→01:57)
[2022-04-15] MEDS: Pantoprazole Sodium 40 MG/10 ML VIAL IVPUSH ×2 (04:11→15:49)
[2022-04-15 05:24] LABS: VBG Base Excess -12.4 mmol/L; VBG HCO3 13 mmol/L (22-26); VBG pCO2 27 mmHg; VBG pH 7.27 (7.32-7.43); VBG pO2 54 mmHg
[2022-04-15 05:35] LABS: Mean Corpuscular HGB Conc 31.3 g/dl (31.0-35.0); PLT CLUMP 1
[2022-04-15 05:37] LABS: Venous Blood Gas Refer to POC result
[2022-04-15 05:38] LABS: Hematocrit 21.4 % (37.0-47.0); Mean Corpuscular Hemoglobin 29.3 pg (27.0-33.0); Mean Corpuscular Volume 93.4 fL (80.0-98.0); Mean Platelet Volume 12.8 fL (9.4-12.3); Red Blood Count 2.29 X10*6/uL (4.20-5.50); Red Cell Distribution Width 19.5 % (11.0-16.0)
[2022-04-15 05:46] LABS: PTT Heparin Drip 60.9 SEC (53-77.9)
[2022-04-15 05:52] LABS: Alanine Aminotransferase 94 U/L (0-31); Albumin Level 2.3 g/dL (3.5-5.0); Alkaline Phosphatase 181 U/L (39-117); Anion Gap 20 (12-20); Aspartate Amino Transferase 77 U/L (5-31); Bilirubin Direct 1.7 mg/dL (0.0-0.5); Blood Urea Nitrogen 73 mg/dL (9-16); Carbon Dioxide 13 mmol/L (22-29); Chloride 107 mmol/L (96-108); Creatinine Clr Calc Pharmacy 16.7; Estimated Glomerular Filt Rate 12; Glucose Random 149 mg/dL (60-115); Magnesium 2.3 mg/dL (1.6-2.6); Phosphorus 5.7 mg/dL (2.7-4.5); Potassium 4.6 mmol/L (3.3-5.1); Sodium 135 mmol/L (135-145); Total Protein 4.9 g/dL (6.5-8.0)
[2022-04-15 05:54] LABS: B Type Natriuretic Peptide 4746 pg/mL (<100)
[2022-04-15 06:12] LABS: NRBC Pct Auto 7.4 /100WBC (0.0-0.2); Platelet Count 90 X10*3/uL (160-400); WBC ABN SCTR FOR CBC 1; White Blood Count 7.9 X10*3/uL (4.8-10.8)
[2022-04-15 06:15] LABS: Hemoglobin 6.7 g/dl (12.0-16.0)
[2022-04-15 06:47] LABS: Band Neutrophils Percent 25 % (3-5); Eosinophils Absolute Manual 0.1 X10*3/uL (0.0-0.4); Eosinophils Percent Manual 1 % (0-4); Lymphocytes Absolute Manual 0.4 X10*3/uL (1.2-4.9); Lymphocytes Percent Manual 5 % (20-40); Monocytes Absolute Manual 0.2 X10*3/uL (0.1-1.2); Monocytes Percent Manual 2 % (2-11); Neutrophils Absolute Manual 7.3 X10*3/uL (2.0-8.3); Neutrophils Percent Manual 67 % (45-73); Nucleated Red Blood Cells 5 /100WBC (0-0); RBC Morphology NOTED
[2022-04-15 06:48] LABS: Ovalocytes 1+ (5-14) /OIF; Polychromasia 1+ (0-2) /OIF
[2022-04-15 06:49] LABS: Basophilic Stippling 1+ (0-2) /OIF; Dohle Bodies PRESENT
[2022-04-15 06:51] LABS: Acanthocytes 2+ (3-5) /OIF
[2022-04-15 06:52] LABS: Platelet Estimate DECREASED (NORMAL)
[2022-04-15 06:53] LABS: Large Platelet PRESENT; Platelet Morphology Comment NOTED; Spherocytes 1+ (0-2) /OIF
[2022-04-15] MEDS: Levothyroxine Sodium 112 MCG, Levothyroxine Sodium 25 MCG 137 MCG PO (07:30)
[2022-04-15] MEDS: Atorvastatin Calcium 40 MG TABLET G-TUBE (07:30)
[2022-04-15] MEDS: Artificial Tears 15 ML DROPS 1 DROP EYE-BOTH ×3 (07:30→20:18)
[2022-04-15] MEDS: Chlorhexidine Gluc Oral Rinse 15 ML MOUTHWASH BUCCAL ×3 (07:30→20:18)
[2022-04-15] MEDS: Aspirin 81 MG TAB.CHEW G-TUBE (07:30)
[2022-04-15 07:34] LABS: Hematocrit 21.6 % (37.0-47.0); Mean Corpuscular HGB Conc 31.9 g/dl (31.0-35.0); Mean Corpuscular Hemoglobin 29.9 pg (27.0-33.0); Mean Corpuscular Volume 93.5 fL (80.0-98.0); Mean Platelet Volume 12.1 fL (9.4-12.3); Red Blood Count 2.31 X10*6/uL (4.20-5.50); Red Cell Distribution Width 19.6 % (11.0-16.0)
[2022-04-15 07:37] LABS: NRBC Pct Auto 7.4 /100WBC (0.0-0.2); Platelet Count 85 X10*3/uL (160-400); WBC ABN SCTR FOR CBC 1
[2022-04-15 07:39] LABS: Hemoglobin 6.9 g/dl (12.0-16.0)
[2022-04-15 08:06] LABS: Band Neutrophils Percent 22 % (3-5); Lymphocytes Percent Manual 7 % (20-40); Monocytes Percent Manual 3 % (2-11); Neutrophils Percent Manual 68 % (45-73); Nucleated Red Blood Cells 25 /100WBC (0-0)
[2022-04-15 08:09] LABS: Acanthocytes 2+ (3-5) /OIF; Burr Cells 3+ (>5) /OIF; Macrocytosis 1+ (5-14) /OIF; Microcytosis 1+ (5-14) /OIF; Ovalocytes 1+ (5-14) /OIF; Pappenheimer Bodies PRESENT; Platelet Estimate DECREASED (NORMAL); Platelet Morphology Comment NORMAL; Polychromasia 1+ (0-2) /OIF; RBC Morphology NOTED; Schistocytes 1+ (0-2) /OIF; Tear Drop Cells 1+ (0-2) /OIF
[2022-04-15 08:10] LABS: Lymphocytes Absolute Manual 0.6 X10*3/uL (1.2-4.9); Monocytes Absolute Manual 0.2 X10*3/uL (0.1-1.2); Neutrophils Absolute Manual 7.1 X10*3/uL (2.0-8.3); White Blood Count 7.9 X10*3/uL (4.8-10.8)
[2022-04-15] MEDS: Sodium Bicarbonate 8.4% 50 MEQ/50 ML SYRINGE IVPUSH (09:04)
--- NOTE | 2022-04-15 10:02 | W.PM.DNNEP ---
Subjective Subjective Principal diagnosis: Acute on chronic CHF, hematuria, mechanical Mitral valve This patient was seen during dialysis. Interval history: Events noted Remains on vent Physical Exam Vital Signs: Vital Signs: Last Vital Signs Temp 98.2 F 04/15/22 09:52 Pulse 123 H 04/15/22 09:55 Resp 22 H 04/15/22 09:52 BP 123/64 04/15/22 09:55 Pulse Ox 95 04/15/22 09:00 BMI result Body Mass Index 27.6 Neck: Neck: Yes supple Resp: Auscultation: diminished lung sounds Cardio: Jugular venous distension: no JVD Heart sounds: no murmurs and no rubs GI: Palpation (GI): Soft to palpation Skin: General skin exam: no rashes or lesions noted Extrem: Right upper extremity: edema Left upper extremity: edema Assessment & Plan Assessment and plan (1) CKD (chronic kidney disease) stage 5, GFR less than 15 ml/min: Status: Acute Plan 1. ALIZA on adv CKD now prog to ESRD and HD started 04/05. UF performed on 04/06. HD on 04/08 however patient became hypotensive and tachycardic. S/P HD with low BFR on 04/11. Hd again today Continue to monitor renal function and volume status. prn HD with low BFR for supportive care although overall prognosis is poor. Reassess HD needs daily Suggest lokelma 10 G prn K> 5.0. 2. Resp Failure: events noted--s/p thoracentesis and now on vent 3. Anemia 4. MBD of CKD-continue sevelamer tid. 5. SOB critically ill Overall prognosis is poor. 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
[2022-04-15] MEDS: Nystatin Powder 15 GM BOTTLE 1 APPL TOPICAL ×3 (10:47→20:18)
--- NOTE | 2022-04-15 10:50 | MHC.CLN ---
F/U PT WITH SUSPECTED ILEUS DISCUSSED AT ROUNDS WITH MD; PROGNOSIS POOR HD STARTING NOW; DISCUSSED WITH PHARMACY PT TO CONTINUE TO RECEIVE TPN [id number] AT 45ML/HR PROVIDES [id number], 54G PROTEIN
[2022-04-15] MEDS: Albuterol/Iprat 2.5/0.5MG 3 ML AMPUL.NEB INHALE ×3 (11:32→20:12)
[2022-04-15] MEDS: Acetylcysteine 10 % 400 MG/4 ML VIAL INHALE ×3 (11:32→20:12)
[2022-04-15] MEDS: vancomycin HCL 1,000 MG in 0.9 % Sodium Chloride 250 ML 270 MG IV (12:41)
--- NOTE | 2022-04-15 15:03 | ECG_ITS ---
Test Reason : rhythm change Blood Pressure : / mmHG Vent. Rate : 129 BPM Atrial Rate : 000 BPM P-R Int : 000 ms QRS Dur : 178 ms QT Int : 472 ms P-R-T Axes : 000 116 250 degrees QTc Int : 691 ms Undetermined rhythm could be accelerated junctional; ?atrial tach or flutter with 2:1 conduction. Right axis deviation Non-specific intra-ventricular conduction block Cannot rule out Anterior infarct , age undetermined Abnormal ECG When compared with ECG of 08-APR-2022 12:06, Previous ECG has undetermined rhythm, needs review Referred By: Jazmín Maynard Electronically Signed By:SONNY RÍOS
--- NOTE | 2022-04-15 17:28 | PM.CCPN ---
Subjective Subjective Date of Service: 04/15/22 Interval History: Extended amount of time spent with this very sick individual he and especially much time spent with the family explaining 71 years of age and 36 years status post coronary bypass grafting and mechanical mitral valve replacement on anticoagulation presented with hypoxic respiratory failure found to be in congestive heart failure and initial echo shows significant congestive cardiomyopathy with an estimated and potentially 15 or 15-20% ejection fraction at best well working mitral valve prosthesis and there is a background of chronic atrial fibrillation and the patient does have an underlying AICD placed as well because of the myopathy On maximum support medication she still when on did to a stage 5 renal failure and hemodialysis dependent which she had another treatment today and hemodynamically did tolerate with a just a small volume of fluid removed at best 6-800 cc 1 unit of blood transfuse for hemoglobin that was 6 and half met because of her cardiovascular status but she is definitely developed multiorgan failure predominantly from what appears to be cardiogenic shock with markedly diminished bilateral carotid upstrokes of and remaining unresponsive essentially comatose even to deep pain EEG shows severe encephalopathy also believed to be low-flow and she had an ileus and when I saw the initial KUB I with the markedly thickened son of und every loop of small bowel and this no doubt that this is ischemic bowel all on the basis of low-flow so she has multi organ failure remains ventilator dependent and my exams consistently showed no evidence of brainstem reflexes other than the fact that she does over breathe the ventilator so she still does have the no spontaneous respiration We discussed the fact that this is definitely end-stage not recoverable and she will never be able to come off pressors or even the ventilator and and we discussed the possibility of comfort measures and but the daughter needed to wait for her uncle who was the patient's brother to come in and make a decision and that was going to be delayed until the following day at which point we said well and will have another 12-14 hours of follow-up off propofol see if anything happens in doubting that but nonetheless if the dysfunctional examination with lack of brainstem reflexes and lack of responsiveness persisted we knew the prognosis was grave Critical Care Time (minutes): 75 Physical Exam Vital Signs: Vital Signs: Last Vital Signs Temp 99.9 F 04/15/22 17:00 Pulse 121 H 04/15/22 17:00 Resp 26 H 04/15/22 17:00 BP 112/59 L 04/15/22 17:00 Pulse Ox 94 04/15/22 17:00 BMI result Body Mass Index 27.6 Unresponsive even to deep pain Diffuse anasarca early livedo Bedside echo shows less than 10% ejection fraction with significantly ballooned anterior 0 apical wall and with the new EKG changes so wider QRS and ST-T elevation I believe we probably have infarct expansion possible aneurysmal development in the apex In audible breath sounds Distended and abdomen absent bowel sounds Objective Data Labs CBC & Chem 7: 04/16/22 05:30 04/16/22 05:30 Labs: Laboratory Results - last 24 hr 04/15/22 04/15/22 04/15/22 05:15 05:16 05:16 WBC 7.9 RBC 2.29 L Hgb 6.7 L* Hct 21.4 L MCV 93.4 MCH 29.3 MCHC 31.3 RDW 19.5 H Plt Count 90 L MPV 12.8 H Immature Gran % (Auto) Cancelled Neut % (Auto) Cancelled Lymph % (Auto) Cancelled [place] % (Auto) Cancelled Eos % (Auto) Cancelled Baso % (Auto) Cancelled Lymph # (Auto) Cancelled [place] # (Auto) Cancelled Eos # (Auto) Cancelled Baso # (Auto) Cancelled Abs Immat Gran (auto) Cancelled Absolute Neuts (auto) Cancelled Absolute Nucleated RBC 0.590 H Nucleated RBC % (auto) 7.4 H Neutrophils % (Manual) 67 Band Neutrophils % 25 H Lymphocytes % (Manual) 5 L Monocytes % (Manual) 2 Eosinophils % (Manual) 1 Abs Neuts (Manual) 7.3 Lymphocytes # (Manual) 0.4 L Monocytes # (Manual) 0.2 Eosinophils # (Manual) 0.1 Nucleated RBCs 5 H Dohle Bodies PRESENT Platelet Estimate DECREASED Large Platelets PRESENT Plt Morphology Comment NOTED RBC Morphology NOTED Polychromasia 1+ (0-2) Basophilic Stippling 1+ (0-2) Microcytosis Macrocytosis Spherocytes 1+ (0-2) Pappenheimer Bodies Tear Drop Cells Ovalocytes 1+ (5-14) [place] Cells Acanthocytes (Spur) 2+ (3-5) Schistocytes Smear Path Review aPTT Heparin Protocol VBG pH 7.27 L VBG pCO2 27 VBG pO2 54 VBG HCO3 13 L VBG O2 Saturation 75.0 VBG Base Excess -12.4 Sodium 135 Potassium 4.6 Chloride 107 Carbon Dioxide 13 L Anion Gap 20 BUN 73 H Creatinine 3.65 H Estim Creat Clear Calc 16.7 Estimated GFR 12 Random Glucose 149 H Calcium 7.0 L Phosphorus 5.7 H Magnesium 2.3 Total Bilirubin 2.0 H Direct Bilirubin 1.7 H AST 77 H ALT 94 H Alkaline Phosphatase 181 H B-Natriuretic Peptide Total Protein 4.9 L Albumin 2.3 L D Blood Type Antibody Screen Antibody Identification BRI, Polyspecific Positive BRI Work-up Crossmatch ([facility]) 04/15/22 04/15/22 04/15/22 05:16 05:16 07:27 WBC 7.9 RBC 2.31 L Hgb 6.9 L* Hct 21.6 L MCV 93.5 MCH 29.9 MCHC 31.9 RDW 19.6 H Plt Count 85 L MPV 12.1 Immature Gran % (Auto) Cancelled Neut % (Auto) Cancelled Lymph % (Auto) Cancelled [place] % (Auto) Cancelled Eos % (Auto) Cancelled Baso % (Auto) Cancelled Lymph # (Auto) Cancelled [place] # (Auto) Cancelled Eos # (Auto) Cancelled Baso # (Auto) Cancelled Abs Immat Gran (auto) Cancelled Absolute Neuts (auto) Cancelled Absolute Nucleated RBC 0.580 H Nucleated RBC % (auto) 7.4 H Neutrophils % (Manual) 68 Band Neutrophils % 22 H Lymphocytes % (Manual) 7 L Monocytes % (Manual) 3 Eosinophils % (Manual) Abs Neuts (Manual) 7.1 Lymphocytes # (Manual) 0.6 L Monocytes # (Manual) 0.2 Eosinophils # (Manual) Nucleated RBCs 25 H Dohle Bodies Platelet Estimate DECREASED Large Platelets Plt Morphology Comment NORMAL RBC Morphology NOTED Polychromasia 1+ (0-2) Basophilic Stippling Microcytosis 1+ (5-14) Macrocytosis 1+ (5-14) Spherocytes Pappenheimer Bodies PRESENT Tear Drop Cells 1+ (0-2) Ovalocytes 1+ (5-14) [place] Cells 3+ (>5) Acanthocytes (Spur) 2+ (3-5) Schistocytes 1+ (0-2) Smear Path Review SEE NOTE aPTT Heparin Protocol 60.9 D VBG pH VBG pCO2 VBG pO2 VBG HCO3 VBG O2 Saturation VBG Base Excess Sodium Potassium Chloride Carbon Dioxide Anion Gap BUN Creatinine Estim Creat Clear Calc Estimated GFR Random Glucose Calcium Phosphorus Magnesium Total Bilirubin Direct Bilirubin AST ALT Alkaline Phosphatase B-Natriuretic Peptide 4746 H Total Protein Albumin Blood Type Antibody Screen Antibody Identification BRI, Polyspecific Positive BRI Work-up Crossmatch ([facility]) 04/15/22 07:27 WBC RBC Hgb Hct MCV MCH MCHC RDW Plt Count MPV Immature Gran % (Auto) Neut % (Auto) Lymph % (Auto) [place] % (Auto) Eos % (Auto) Baso % (Auto) Lymph # (Auto) [place] # (Auto) Eos # (Auto) Baso # (Auto) Abs Immat Gran (auto) Absolute Neuts (auto) Absolute Nucleated RBC Nucleated RBC % (auto) Neutrophils % (Manual) Band Neutrophils % Lymphocytes % (Manual) Monocytes % (Manual) Eosinophils % (Manual) Abs Neuts (Manual) Lymphocytes # (Manual) Monocytes # (Manual) Eosinophils # (Manual) Nucleated RBCs Dohle Bodies Platelet Estimate Large Platelets Plt Morphology Comment RBC Morphology Polychromasia Basophilic Stippling Microcytosis Macrocytosis Spherocytes Pappenheimer Bodies Tear Drop Cells Ovalocytes [place] Cells Acanthocytes (Spur) Schistocytes Smear Path Review aPTT Heparin Protocol VBG pH VBG pCO2 VBG pO2 VBG HCO3 VBG O2 Saturation VBG Base Excess Sodium Potassium Chloride Carbon Dioxide Anion Gap BUN Creatinine Estim Creat Clear Calc Estimated GFR Random Glucose Calcium Phosphorus Magnesium Total Bilirubin Direct Bilirubin AST ALT Alkaline Phosphatase B-Natriuretic Peptide Total Protein Albumin Blood Type B Negative Antibody Screen POSITIVE Antibody Identification Anti-D BRI, Polyspecific NEGATIVE Positive BRI Work-up TNP Crossmatch ([facility]) See Detail Microbiology Microbiology Results: Microbiology 04/15/22 07:51 Sputum - Suctioned Gram Stain - Final 04/12/22 15:27 Blood - Venous Blood Culture - Preliminary No growth after 48 hours. 04/12/22 15:27 Blood - Venous Blood Culture - Preliminary No growth after 48 hours. 04/07/22 15:15 Blood - Venous Blood Culture - Final No growth after 5 days. 04/07/22 15:15 Blood - Venous Blood Culture - Final No growth after 5 days. 04/08/22 10:43 Sputum - Suctioned Gram Stain - Final 04/08/22 10:43 Sputum - Suctioned Sputum Culture - Final 04/03/22 11:30 Thoracentesis Fluid Gram Stain - Final 04/03/22 11:30 Thoracentesis Fluid Anaerobic Culture - Final NO GROWTH AFTER 5 DAYS 04/03/22 11:30 Thoracentesis Fluid Body Fluid Culture - Final No growth after 2 days Progress Note: A&P Assessment and plan (1) Cardiogenic shock: Status: Acute (2) Ischemic bowel disease: Status: Acute (3) Pneumonia: Status: Acute (4) Atelectasis: Status: Acute (5) Leukocytosis: Status: Acute (6) CKD (chronic kidney disease) stage 5, GFR less than 15 ml/min: Status: Acute (7) Acute respiratory failure: Status: Acute (8) CKD (chronic kidney disease) stage 5, GFR less than 15 ml/min: Status: Acute (9) Pleural effusion: Status: Acute (10) Hypotension: Status: Acute (11) CKD (chronic kidney disease) stage 4, GFR 15-29 ml/min: Status: Acute (12) Acute kidney failure: Status: Acute (13) Gross hematuria: Status: Acute (14) Acute on chronic heart failure with reduced ejection fraction and diastolic dysfunction: Status: Acute (15) Congestive heart failure: Status: Acute (16) Abdominal pain: Status: Acute (17) Hyperkalemia: Status: Acute (18) H/O mitral valve replacement: Status: Acute (19) ICD (implantable cardioverter-defibrillator) in place: Status: Acute (20) Renal cyst: Status: Acute (21) Hematuria: Status: Acute (22) Low back pain: Status: Acute (23) Ascites: Status: Acute (24) Hematuria: Status: Acute (25) Osteoarthritis of hand, left: Status: Acute (26) Cellulitis of left hand: Status: Acute (27) Ischemic cardiomyopathy: Status: Acute (28) Hypothyroid: Status: Acute (29) Hypercholesterolemia: Status: Acute (30) CHF (congestive heart failure): Status: Acute (31) Chronic atrial fibrillation: Status: Acute (32) Anemia: Status: Acute (33) Detached retina: Status: Acute (34) Elevated alkaline phosphatase level: Status: Acute (35) Bilateral edema of lower extremity: Status: Acute (36) External hemorrhoid, bleeding: Status: Acute (37) Ascites: Status: Acute (38) Prosthetic eye globe: Status: Acute (39) Pressure ulcer: Status: Acute (40) Generalized anxiety disorder: Status: Acute (41) Pancreatitis: Status: Acute (42) Hyperkalemia: Status: Acute (43) History of breast cancer: Status: Acute (44) Pressure ulcer: Status: Acute (45) Acute insomnia: Status: Acute (46) Current use of anticoagulant therapy: Status: Acute (47) Right knee pain: Status: Acute (48) Pulmonary hypertension: Status: Acute Plan She basically had an ischemic cardiomyopathy with congestive heart failure on presentation with hypoxic respiratory failure but clearly had an event which appears to be in infarction bringing her ejection fraction below 10% establishing cardiogenic shock and progressive multiorgan system failure as a result now comatose with severe encephalopathy all of this a repairable at this point in and with discussion with the family the going to come back and in the morning and make final decisions Quality Stroke Does the patient have a stroke diagnosis?: No VTE Prior VTE?: No VTE Risk Level:: Medical - moderate - high VTE Device Contraindication: N/A - Device Ordered VTE Drug Contraindication: N/A - Med Ordered
--- NOTE | 2022-04-15 20:56 | P.CONPL_ITS ---
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 The patient was admitted to [facility] [place] 03/15/2022 with dyspnea secondary to heart failure exacerbation.? Hospital course was complicated by urinary retention with traumatic wilson placement resulting in hematuria requiring transfusion of total 9 units RBCs, culminating in cystoscopy w fulgaration for bleeding control on 03/24; development of right-sided pleural effusion, s/p therapeutic thoracentesis 1.2 L on April 03; and progressive renal failure initiated on hemodialysis on 04/05/2022 via Left IJ temp dialysis catheter (instead of permcath bec of elevated INR) On 04/06 the patient developed lethargy, hypoxemia and for hypercarbia.? She was put on BiPAP and transferred to ICU.? CXR showed reaccumulation of right-sided pleural effusion and new infiltrates on the left, thought secondary to aspiration.? Right thoracentesis removed 800 cc of serosanguineous fluid, but without improvement in her respiratory status.? The patient was emergently intubated.? Of note, during the thoracentesis, the patient had a 13 second run of VT (at a rate of 137/min) that self-terminated without a shock from her device.? The patient was started on Zosyn for empiric pulmonary aspiration coverage. LV systolic function severely decreased, EF15-20%. ?Mildly increased RV cavity size w mild-moderately decreased function.? Normal mechanical prosthetic MV fxn.? Severe biatrial enlargement.? Mod-severe TR with dilated, poorly collapsing IVC, RVSP 49mm.The post-intubation CXR reading missed a right basilar pneumothorax, which was undetected until a film done later that night after OGT placement showed a large tension PTX.? A pigtail drainage catheter was placed which, after repositioning, drained the entire hydropneumothorax.? The patient was not dialyzed that day because of hemodynamic instability. The patient continues to require full ventilatory support along with vasopressor therapy. Chest x-rays demonstrating persistent atelectasis. Patient was placed on Mucomyst for mucus clearance without any significant improvement. Therefore Pulmonary was consulted for further evaluation. I did review her imaging studies including her previous CT scan of the chest demonstrating the consolidations of the lungs bilaterally with evidence of mucus plugging primarily in the left lower lobe. Patient also had a pneumothoraces. Subsequent to that she has had chest x-ray demonstrating persistent atelectasis Bilaterally in addition to bilateral pleural effusions. Review of Systems Review of Systems: Yes unobtainable due to endotracheal tube and Unobtainable due to mental condition ON LICENSE OF [facility] Past Medical History Medical History (Updated 04/15/22 @ 21:08 by Davidson Schneider MD) Acute on chronic heart failure with reduced ejection fraction and diastolic dysfunction Amyloidosis Amyloidosis Anemia Arthritis Atelectasis Bladder hypertonicity CHF (congestive heart failure) Chronic atrial fibrillation Chronic heart failure with reduced ejection fraction and diastolic dysfunction Chronic HFrEF (heart failure with reduced ejection fraction) Chronic kidney disease (CKD) stage G4/A1, severely decreased glomerular filtration rate (GFR) between 15-29 mL/min/1.73 square meter and albuminuria creatinine ratio less than 30 mg/g CKD (chronic kidney disease) stage 4, GFR 15-29 ml/min Detached retina Gout Hematuria Hematuria Hemorrhoids with complication History of breast cancer HTN (hypertension) Hypercholesterolemia Hypothyroid ICD (implantable cardioverter-defibrillator) in place Ischemic cardiomyopathy Leukocytosis Low back pain Nephrolithiasis Osteoarthritis Overweight (BMI 25.0-29.9) Pneumonia Pulmonary hypertension Renal cyst Thumb tendonitis Tricuspid regurgitation Urinary incontinence Family History Family History Mother Diabetes Father Past heart attack Diabetes Sister Parkinsons disease Family history: reviewed and not pertinent Surgical History Surgical History H/O abdominal hysterectomy H/O mitral valve replacement H/O mitral valve replacement with mechanical valve History of bunionectomy History of cataract surgery History of colonoscopy History of left inguinal hernia repair History of sleeve gastrectomy Mechanical heart valve present Social History Social History Household Members: Children Household Members Other:: daughter Housing: House Do you presently have visiting nurse or other home services: Yes ([facility]) Alcohol intake: never Patient Tobacco Use Status: Never used Tobacco Tobacco use type: Cigarette e-Cigarette/Vaping Use: Never Used Second Hand Smoke Exposure: No Advance Directives Date on File: 02/22/22 service: No Current occupational status: retired Current occupation: left handed Cognitive needs: No Hearing needs: No Vision needs: No Meds Allergies Allergy/AdvReac Type Severity Reaction Status Date / Time TAPE,PAPER Allergy Unknown RASH TO Uncoded 03/13/22 14:54 PAPER TAPE Active Medications: Current Medications Acetylcysteine (Acetylcysteine 10 % 400 Mg/4 Ml Vial) 400 mg INHALE RQ4H WHILE AWAKE [facility] Last Admin: 04/15/22 20:12 Dose: 400 mg Documented by: Albuterol/Ipratropium (Albuterol/Iprat 2.5/0.5mg 3 Ml Ampul.Neb) 3 ml INHALE RQ4H WHILE AWAKE [facility] Last Admin: 04/15/22 20:12 Dose: 3 ml Documented by: Artificial Tears (Artificial Tears 15 Ml Drops) 1 drop EYE-BOTH TID [facility] Last Admin: 04/15/22 20:18 Dose: 1 drop Documented by: Aspirin (Aspirin 81 Mg Tab.Chew) 81 mg G-TUBE DAILY [facility] Last Admin: 04/15/22 07:30 Dose: 81 mg Documented by: Chlorhexidine Gluconate (Chlorhexidine Gluc Oral Rinse 15 Ml Mouthwash) 15 ml BUCCAL TID [facility] Last Admin: 04/15/22 20:18 Dose: 15 ml Documented by: Propofol (Diprivan) 1,000 mg in 100 mls @ 0 mls/hr IVCONT .Q0M [facility]; Protocol Last Titration: 04/15/22 15:51 Dose: Infused Documented by: Norepinephrine Bitartrate (Levophed) 8 mg in 250 mls @ 0 mls/hr IVCONT .Q0M [facility]; Protocol Last Admin: 04/15/22 20:18 Dose: 0.27 mcg/kg/min, 31.44 mls/hr Documented by: Heparin Sodium/Sodium Chloride () 25,000 unit in 250 mls @ 7.62 mls/hr IVCONT .Q24H [facility] Last Infusion: 04/15/22 13:00 Dose: Infused Documented by: Multivitamins 10 ml/ Trace Metals 1 ml/ Amino Acids/Electrolytes 1,011 mls @ 45 mls/hr IV DAILY@1800 [facility] Last Infusion: 04/15/22 13:02 Dose: Infused Documented by: Vasopressin 20 unit/ Sodium (Chloride) 101 mls @ 12.12 mls/hr IVCONT .Q8H20M [facility] Last Admin: 04/15/22 20:18 Dose: 0.04 unit/min, 12.12 mls/hr Documented by: Phenylephrine HCl 20 mg/ (Sodium Chloride) 252 mls @ 0 mls/hr IVCONT .Q0M [facility]; Protocol Last Titration: 04/15/22 13:01 Dose: Infused Documented by: Levothyroxine Sodium 112 mcg/ (Levothyroxine Sodium 25 mcg) 137 mcg PO DAILY@0600 [facility] Last Admin: 04/15/22 07:30 Dose: 137 mcg Documented by: Mineral Oil (Mineral Oil Enema 133 Ml Enema) 133 ml CO ONCE PRN PRN Reason: IF FIRST ENEMA IS INEFFECTIVE Last Admin: 04/11/22 18:24 Dose: 133 ml Documented by: Nystatin (Nystatin Powder 15 Gm Bottle) 1 appl TOPICAL TID [facility]; Protocol Last Admin: 04/15/22 20:18 Dose: 1 appl Documented by: Pantoprazole Sodium (Pantoprazole Sodium 40 Mg/10 Ml Vial) 40 mg IVPUSH Q12H [facility] Last Admin: 04/15/22 15:49 Dose: 40 mg Documented by: Sodium Chloride (0.9 % Sodium Chloride Flush 3 Ml Syringe) 3 ml IVFLUSH QSHIFT [facility] Last Admin: 04/15/22 15:14 Dose: 3 ml Documented by: Home Medications Medication Instructions Recorded Confirmed Last Taken Type acetaminophen 325 mg capsule 325 mg PO QID PRN 08/06/20 03/15/22 10/09/21 History (Tylenol) artifi.tears(hypromellose)(PF) 0.3 1 drp OPHTHALMIC (EYE) TID 09/03/21 03/15/22 10/21/21 History % eye drops calcium 750 mg PO DAILY 10/09/21 03/15/22 03/14/22 History rosuvastatin 10 mg tablet 10 mg PO BEDTIME 10/21/21 03/15/22 03/14/22 History trazodone 50 mg tablet 50 mg PO BEDTIME PRN 10/21/21 03/15/22 03/14/22 History warfarin 2.5 mg tablet 2.5 mg PO .COMPLEX 02/25/22 03/13/22 Unknown History docusate sodium 100 mg capsule 200 mg PO BEDTIME 03/15/22 03/15/22 03/14/22 History fluoxetine 20 mg capsule 40 mg PO DAILY 03/15/22 03/15/22 03/14/22 History potassium chloride 20 mEq 1 tab PO Q2D 03/15/22 03/15/22 Unknown History tablet,extended release(part/cryst) (Klor-Con M) vitamins A,C,S-qmoy-wnaytx 14,320 1 cap PO BID 03/15/22 03/15/22 03/14/22 History unit-226 mg-200 unit capsule (PreserVision AREDS) warfarin 2.5 mg tablet 1.25 mg PO WE 03/15/22 03/15/22 03/12/22 History warfarin 2.5 mg tablet 2.5 mg PO SUMOTUTHFRSA 03/15/22 03/15/22 03/14/22 History Physical Exam Vital Signs: Vital Signs: Last Vital Signs Temp 100.4 F 04/15/22 20:00 Pulse 123 H 04/15/22 20:00 Resp 27 H 04/15/22 20:00 BP 114/55 L 04/15/22 20:00 Pulse Ox 92 04/15/22 20:00 BMI result Body Mass Index 27.6 Const: General: ill appearing; No awake Neck: Neck: Yes normal visual inspection and Yes no lymphadenopathy Chest: Chest palpation & inspection: normal inspection of the chest Resp: Effort & Inspection: tachypneic Auscultation: diminished lung sounds Cardio: Rate: regular rate Rhythm: regular rhythm Heart sounds: S1 normal heart sound present and S2 normal heart sound present GI: Palpation (GI): Soft to palpation and nontender Auscultation: normal bowel sounds Skin: General skin exam: rashes and/or lesions noted Results Laboratory Findings CBC and BMP: 04/15/22 07:27 04/15/22 05:16 ABG, PT/INR, D-dimer: PT/INR, D-dimer PT 15.4 SEC (9.9-13.0) H 04/13/22 05:18 INR 1.3 (0.9-1.1) H 04/13/22 05:18 Abnormal lab findings: Abnormal Labs 03/14/22 03/14/22 03/14/22 21:46 21:46 21:46 WBC RBC 3.88 L Hgb 11.1 L Hct MCV MCHC 29.9 L RDW 17.8 H Plt Count 126 L MPV 13.0 H Immature Gran % (Auto) Neut % (Auto) 84.1 H Lymph % (Auto) 4.7 L [place] % (Auto) Lymph # (Auto) 0.3 L [place] # (Auto) Abs Immat Gran (auto) Absolute Nucleated RBC Nucleated RBC % (auto) Neutrophils % (Manual) Band Neutrophils % Lymphocytes % (Manual) Monocytes % (Manual) Abs Neuts (Manual) Lymphocytes # (Manual) Nucleated RBCs PT INR APTT aPTT Heparin Protocol ABG pH at Pt Temp ABG pCO2 at Pt Temp ABG pO2 at Pt Temp ABG HCO3 VBG pH VBG HCO3 Sodium Potassium 5.6 H Chloride Carbon Dioxide Anion Gap BUN 78 H Creatinine 3.19 H POC Glucose Random Glucose Fasting Glucose Calcium Phosphorus Total Bilirubin Direct Bilirubin AST ALT Alkaline Phosphatase 207 H Troponin I High Sens 1094.4 H* B-Natriuretic Peptide Total Protein Albumin 2.9 L Urine Protein Urine Blood Urine RBC Nasal S. aureus Screen Crossmatch ([facility]) 03/15/22 03/15/22 03/15/22 04:38 04:51 04:51 WBC RBC Hgb Hct MCV MCHC RDW Plt Count MPV Immature Gran % (Auto) Neut % (Auto) Lymph % (Auto) [place] % (Auto) Lymph # (Auto) [place] # (Auto) Abs Immat Gran (auto) Absolute Nucleated RBC Nucleated RBC % (auto) Neutrophils % (Manual) Band Neutrophils % Lymphocytes % (Manual) Monocytes % (Manual) Abs Neuts (Manual) Lymphocytes # (Manual) Nucleated RBCs PT 50.8 H INR 4.3 H D APTT 52.3 H aPTT Heparin Protocol ABG pH at Pt Temp ABG pCO2 at Pt Temp ABG pO2 at Pt Temp ABG HCO3 VBG pH VBG HCO3 Sodium Potassium Chloride Carbon Dioxide Anion Gap BUN Creatinine POC Glucose Random Glucose Fasting Glucose Calcium Phosphorus Total Bilirubin Direct Bilirubin AST ALT Alkaline Phosphatase Troponin I High Sens 1104.7 H* B-Natriuretic Peptide 2247 H Total Protein Albumin Urine Protein 2+ H Urine Blood 3+ H Urine RBC 30-49 H Nasal S. aureus Screen Crossmatch ([facility]) 03/16/22 03/16/22 03/16/22 05:49 05:49 05:49 WBC 4.3 L RBC 3.79 L Hgb 10.9 L Hct 36.1 L MCV MCHC 30.2 L RDW 17.8 H Plt Count 131 L MPV 12.8 H Immature Gran % (Auto) Neut % (Auto) Lymph % (Auto) [place] % (Auto) Lymph # (Auto) [place] # (Auto) Abs Immat Gran (auto) Absolute Nucleated RBC Nucleated RBC % (auto) Neutrophils % (Manual) Band Neutrophils % Lymphocytes % (Manual) Monocytes % (Manual) Abs Neuts (Manual) Lymphocytes # (Manual) Nucleated RBCs PT 46.0 H INR 3.9 H APTT aPTT Heparin Protocol ABG pH at Pt Temp ABG pCO2 at Pt Temp ABG pO2 at Pt Temp ABG HCO3 VBG pH VBG HCO3 Sodium Potassium Chloride Carbon Dioxide Anion Gap BUN 80 H Creatinine 3.14 H POC Glucose Random Glucose Fasting Glucose Calcium 8.1 L Phosphorus Total Bilirubin Direct Bilirubin AST ALT Alkaline Phosphatase Troponin I High Sens B-Natriuretic Peptide Total Protein Albumin Urine Protein Urine Blood Urine RBC Nasal S. aureus Screen Crossmatch ([facility]) 03/17/22 03/17/22 03/17/22 05:34 05:34 05:34 WBC RBC 3.64 L Hgb 10.6 L Hct 35.6 L MCV MCHC 29.8 L RDW 17.9 H Plt Count 113 L MPV Immature Gran % (Auto) Neut % (Auto) Lymph % (Auto) [place] % (Auto) Lymph # (Auto) [place] # (Auto) Abs Immat Gran (auto) Absolute Nucleated RBC Nucleated RBC % (auto) Neutrophils % (Manual) Band Neutrophils % Lymphocytes % (Manual) Monocytes % (Manual) Abs Neuts (Manual) Lymphocytes # (Manual) Nucleated RBCs PT 31.3 H INR 2.7 H APTT aPTT Heparin Protocol ABG pH at Pt Temp ABG pCO2 at Pt Temp ABG pO2 at Pt Temp ABG HCO3 VBG pH VBG HCO3 Sodium Potassium Chloride Carbon Dioxide Anion Gap BUN 85 H Creatinine 3.19 H POC Glucose Random Glucose Fasting Glucose Calcium 8.1 L Phosphorus Total Bilirubin Direct Bilirubin AST ALT Alkaline Phosphatase Troponin I High Sens B-Natriuretic Peptide Total Protein Albumin Urine Protein Urine Blood Urine RBC Nasal S. aureus Screen Crossmatch ([facility]) 03/17/22 03/17/22 03/17/22 15:41 23:18 23:18 WBC RBC 3.80 L 3.29 L Hgb 11.0 L 9.5 L Hct 36.4 L 31.4 L MCV MCHC 30.2 L 30.3 L RDW 18.0 H 17.8 H Plt Count 136 L 119 L MPV Immature Gran % (Auto) Neut % (Auto) Lymph % (Auto) [place] % (Auto) Lymph # (Auto) [place] # (Auto) Abs Immat Gran (auto) Absolute Nucleated RBC Nucleated RBC % (auto) Neutrophils % (Manual) Band Neutrophils % Lymphocytes % (Manual) Monocytes % (Manual) Abs Neuts (Manual) Lymphocytes # (Manual) Nucleated RBCs PT INR APTT aPTT Heparin Protocol ABG pH at Pt Temp ABG pCO2 at Pt Temp ABG pO2 at Pt Temp ABG HCO3 VBG pH VBG HCO3 Sodium Potassium Chloride Carbon Dioxide Anion Gap BUN 82 H Creatinine 3.06 H POC Glucose Random Glucose Fasting Glucose Calcium 8.1 L Phosphorus Total Bilirubin Direct Bilirubin AST ALT Alkaline Phosphatase Troponin I High Sens B-Natriuretic Peptide Total Protein Albumin Urine Protein Urine Blood Urine RBC Nasal S. aureus Screen Crossmatch ([facility]) 03/18/22 03/18/22 03/18/22 06:05 06:05 06:05 WBC 4.6 L RBC 3.25 L Hgb 9.2 L Hct 31.0 L MCV MCHC 29.7 L RDW 17.7 H Plt Count 120 L MPV Immature Gran % (Auto) Neut % (Auto) Lymph % (Auto) [place] % (Auto) Lymph # (Auto) [place] # (Auto) Abs Immat Gran (auto) Absolute Nucleated RBC Nucleated RBC % (auto) Neutrophils % (Manual) Band Neutrophils % Lymphocytes % (Manual) Monocytes % (Manual) Abs Neuts (Manual) Lymphocytes # (Manual) Nucleated RBCs PT 27.0 H INR 2.3 H APTT aPTT Heparin Protocol ABG pH at Pt Temp ABG pCO2 at Pt Temp ABG pO2 at Pt Temp ABG HCO3 VBG pH VBG HCO3 Sodium Potassium Chloride Carbon Dioxide Anion Gap BUN 84 H Creatinine 2.92 H POC Glucose Random Glucose Fasting Glucose Calcium 7.8 L Phosphorus Total Bilirubin Direct Bilirubin AST ALT Alkaline Phosphatase Troponin I High Sens B-Natriuretic Peptide Total Protein Albumin Urine Protein Urine Blood Urine RBC Nasal S. aureus Screen Crossmatch ([facility]) 03/18/22 03/18/22 03/18/22 11:08 12:36 22:24 WBC RBC Hgb 8.6 L 8.1 L Hct 28.9 L 26.7 L MCV MCHC RDW Plt Count MPV Immature Gran % (Auto) Neut % (Auto) Lymph % (Auto) [place] % (Auto) Lymph # (Auto) [place] # (Auto) Abs Immat Gran (auto) Absolute Nucleated RBC Nucleated RBC % (auto) Neutrophils % (Manual) Band Neutrophils % Lymphocytes % (Manual) Monocytes % (Manual) Abs Neuts (Manual) Lymphocytes # (Manual) Nucleated RBCs PT INR APTT aPTT Heparin Protocol ABG pH at Pt Temp ABG pCO2 at Pt Temp ABG pO2 at Pt Temp ABG HCO3 VBG pH VBG HCO3 Sodium Potassium Chloride Carbon Dioxide Anion Gap BUN Creatinine POC Glucose Random Glucose Fasting Glucose Calcium Phosphorus Total Bilirubin Direct Bilirubin AST ALT Alkaline Phosphatase Troponin I High Sens B-Natriuretic Peptide Total Protein Albumin Urine Protein Urine Blood Urine RBC Nasal S. aureus Screen Crossmatch ([facility]) See Detail 03/19/22 03/19/22 03/20/22 05:24 11:34 06:41 WBC RBC Hgb Hct MCV MCHC RDW Plt Count MPV Immature Gran % (Auto) Neut % (Auto) Lymph % (Auto) [place] % (Auto) Lymph # (Auto) [place] # (Auto) Abs Immat Gran (auto) Absolute Nucleated RBC Nucleated RBC % (auto) Neutrophils % (Manual) Band Neutrophils % Lymphocytes % (Manual) Monocytes % (Manual) Abs Neuts (Manual) Lymphocytes # (Manual) Nucleated RBCs PT 24.4 H INR 2.1 H APTT aPTT Heparin Protocol 38.5 L ABG pH at Pt Temp ABG pCO2 at Pt Temp ABG pO2 at Pt Temp ABG HCO3 VBG pH VBG HCO3 Sodium Potassium 5.6 H Chloride Carbon Dioxide Anion Gap BUN 92 H Creatinine 2.99 H POC Glucose Random Glucose Fasting Glucose Calcium 7.2 L D Phosphorus Total Bilirubin Direct Bilirubin AST ALT Alkaline Phosphatase Troponin I High Sens B-Natriuretic Peptide Total Protein Albumin Urine Protein Urine Blood Urine RBC Nasal S. aureus Screen Crossmatch ([facility]) 03/20/22 03/21/22 03/21/22 06:41 05:21 05:21 WBC RBC 2.16 L D 2.24 L Hgb 6.1 L* D 6.8 L* Hct 19.7 L* D 20.6 L* MCV MCHC RDW 18.0 H 16.7 H Plt Count 123 L 116 L MPV Immature Gran % (Auto) Neut % (Auto) Lymph % (Auto) [place] % (Auto) Lymph # (Auto) [place] # (Auto) Abs Immat Gran (auto) Absolute Nucleated RBC 0.030 H Nucleated RBC % (auto) 0.3 H Neutrophils % (Manual) Band Neutrophils % Lymphocytes % (Manual) Monocytes % (Manual) Abs Neuts (Manual) Lymphocytes # (Manual) Nucleated RBCs PT INR APTT aPTT Heparin Protocol ABG pH at Pt Temp ABG pCO2 at Pt Temp ABG pO2 at Pt Temp ABG HCO3 VBG pH VBG HCO3 Sodium Potassium 5.3 H Chloride Carbon Dioxide Anion Gap BUN 99 H Creatinine 3.53 H POC Glucose Random Glucose Fasting Glucose Calcium 7.0 L Phosphorus Total Bilirubin Direct Bilirubin AST ALT Alkaline Phosphatase Troponin I High Sens B-Natriuretic Peptide Total Protein Albumin Urine Protein Urine Blood Urine RBC Nasal S. aureus Screen Crossmatch ([facility]) 03/22/22 03/22/22 03/22/22 01:02 04:02 04:02 WBC RBC 2.18 L 2.08 L Hgb 6.7 L* 6.4 L* Hct 20.1 L* 19.4 L* MCV MCHC RDW 16.4 H 16.3 H Plt Count 126 L 115 L MPV Immature Gran % (Auto) 1.1 H Neut % (Auto) 74.4 H Lymph % (Auto) 9.9 L [place] % (Auto) 13.8 H Lymph # (Auto) 1.0 L [place] # (Auto) 1.4 H Abs Immat Gran (auto) 0.11 H Absolute Nucleated RBC 0.090 H 0.080 H Nucleated RBC % (auto) 0.9 H 0.8 H Neutrophils % (Manual) Band Neutrophils % Lymphocytes % (Manual) Monocytes % (Manual) Abs Neuts (Manual) Lymphocytes # (Manual) Nucleated RBCs PT INR APTT aPTT Heparin Protocol ABG pH at Pt Temp ABG pCO2 at Pt Temp ABG pO2 at Pt Temp ABG HCO3 VBG pH VBG HCO3 Sodium Potassium 5.8 H Chloride Carbon Dioxide 21 L Anion Gap BUN 102 H Creatinine 3.98 H POC Glucose Random Glucose Fasting Glucose Calcium 6.9 L Phosphorus Total Bilirubin Direct Bilirubin AST ALT Alkaline Phosphatase Troponin I High Sens B-Natriuretic Peptide Total Protein Albumin Urine Protein Urine Blood Urine RBC Nasal S. aureus Screen Crossmatch ([facility]) 03/22/22 03/23/22 03/23/22 04:02 05:48 05:48 WBC RBC 2.25 L Hgb 6.8 L* Hct 21.1 L MCV MCHC RDW 16.3 H Plt Count 130 L MPV Immature Gran % (Auto) Neut % (Auto) Lymph % (Auto) [place] % (Auto) Lymph # (Auto) [place] # (Auto) Abs Immat Gran (auto) Absolute Nucleated RBC 0.060 H Nucleated RBC % (auto) 0.6 H Neutrophils % (Manual) Band Neutrophils % Lymphocytes % (Manual) Monocytes % (Manual) Abs Neuts (Manual) Lymphocytes # (Manual) Nucleated RBCs PT INR APTT aPTT Heparin Protocol ABG pH at Pt Temp ABG pCO2 at Pt Temp ABG pO2 at Pt Temp ABG HCO3 VBG pH VBG HCO3 Sodium Potassium 5.3 H Chloride Carbon Dioxide Anion Gap BUN 105 H Creatinine 4.38 H* POC Glucose Random Glucose Fasting Glucose Calcium 7.2 L Phosphorus Total Bilirubin Direct Bilirubin AST ALT Alkaline Phosphatase Troponin I High Sens B-Natriuretic Peptide Total Protein Albumin Urine Protein Urine Blood Urine RBC Nasal S. aureus Screen Crossmatch ([facility]) See Detail 03/24/22 03/24/22 03/24/22 05:26 05:26 05:26 WBC RBC 2.29 L Hgb 7.1 L Hct 21.2 L MCV MCHC RDW 16.1 H Plt Count 126 L MPV Immature Gran % (Auto) Neut % (Auto) Lymph % (Auto) [place] % (Auto) Lymph # (Auto) [place] # (Auto) Abs Immat Gran (auto) Absolute Nucleated RBC 0.030 H Nucleated RBC % (auto) 0.3 H Neutrophils % (Manual) Band Neutrophils % Lymphocytes % (Manual) Monocytes % (Manual) Abs Neuts (Manual) Lymphocytes # (Manual) Nucleated RBCs PT 13.6 H INR 1.2 H APTT aPTT Heparin Protocol ABG pH at Pt Temp ABG pCO2 at Pt Temp ABG pO2 at Pt Temp ABG HCO3 VBG pH VBG HCO3 Sodium Potassium Chloride Carbon Dioxide Anion Gap BUN 110 H Creatinine 4.60 H* POC Glucose Random Glucose Fasting Glucose Calcium 7.8 L D Phosphorus Total Bilirubin Direct Bilirubin AST ALT Alkaline Phosphatase Troponin I High Sens B-Natriuretic Peptide Total Protein Albumin Urine Protein Urine Blood Urine RBC Nasal S. aureus Screen Crossmatch ([facility]) 03/25/22 03/25/22 03/25/22 04:44 04:44 06:17 WBC RBC 2.09 L Hgb 6.4 L* Hct 19.8 L* MCV MCHC RDW 16.1 H Plt Count 119 L MPV Immature Gran % (Auto) Neut % (Auto) Lymph % (Auto) [place] % (Auto) Lymph # (Auto) [place] # (Auto) Abs Immat Gran (auto) Absolute Nucleated RBC Nucleated RBC % (auto) Neutrophils % (Manual) Band Neutrophils % Lymphocytes % (Manual) Monocytes % (Manual) Abs Neuts (Manual) Lymphocytes # (Manual) Nucleated RBCs PT INR APTT aPTT Heparin Protocol ABG pH at Pt Temp ABG pCO2 at Pt Temp ABG pO2 at Pt Temp ABG HCO3 VBG pH VBG HCO3 Sodium Potassium 5.7 H Chloride Carbon Dioxide Anion Gap BUN 108 H Creatinine 4.60 H* POC Glucose Random Glucose Fasting Glucose Calcium 7.7 L Phosphorus Total Bilirubin Direct Bilirubin AST ALT Alkaline Phosphatase Troponin I High Sens B-Natriuretic Peptide Total Protein Albumin Urine Protein Urine Blood Urine RBC Nasal S. aureus Screen Crossmatch ([facility]) See Detail 03/26/22 03/26/22 03/27/22 06:13 06:13 06:26 WBC 11.8 H RBC 2.71 L D 2.91 L Hgb 8.3 L D 8.9 L Hct 25.5 L D 27.5 L MCV MCHC RDW 16.5 H 16.6 H Plt Count 134 L 149 L MPV Immature Gran % (Auto) Neut % (Auto) Lymph % (Auto) [place] % (Auto) Lymph # (Auto) [place] # (Auto) Abs Immat Gran (auto) Absolute Nucleated RBC 0.020 H Nucleated RBC % (auto) Neutrophils % (Manual) Band Neutrophils % Lymphocytes % (Manual) Monocytes % (Manual) Abs Neuts (Manual) Lymphocytes # (Manual) Nucleated RBCs PT INR APTT aPTT Heparin Protocol ABG pH at Pt Temp ABG pCO2 at Pt Temp ABG pO2 at Pt Temp ABG HCO3 VBG pH VBG HCO3 Sodium Potassium Chloride Carbon Dioxide Anion Gap BUN 108 H Creatinine 4.81 H* POC Glucose Random Glucose Fasting Glucose Calcium 7.6 L Phosphorus Total Bilirubin Direct Bilirubin AST ALT Alkaline Phosphatase Troponin I High Sens B-Natriuretic Peptide Total Protein Albumin Urine Protein Urine Blood Urine RBC Nasal S. aureus Screen Crossmatch ([facility]) 03/27/22 03/27/22 03/27/22 06:26 12:44 12:45 WBC 13.7 H RBC 3.02 L Hgb 9.3 L Hct 28.5 L MCV MCHC RDW 16.5 H Plt Count 140 L MPV Immature Gran % (Auto) Neut % (Auto) Lymph % (Auto) [place] % (Auto) Lymph # (Auto) [place] # (Auto) Abs Immat Gran (auto) Absolute Nucleated RBC 0.020 H Nucleated RBC % (auto) Neutrophils % (Manual) Band Neutrophils % Lymphocytes % (Manual) Monocytes % (Manual) Abs Neuts (Manual) Lymphocytes # (Manual) Nucleated RBCs PT INR APTT aPTT Heparin Protocol 29.1 L D ABG pH at Pt Temp ABG pCO2 at Pt Temp ABG pO2 at Pt Temp ABG HCO3 VBG pH VBG HCO3 Sodium Potassium Chloride Carbon Dioxide Anion Gap BUN 101 H Creatinine 4.65 H* POC Glucose Random Glucose Fasting Glucose Calcium 7.3 L Phosphorus Total Bilirubin Direct Bilirubin AST ALT Alkaline Phosphatase Troponin I High Sens B-Natriuretic Peptide Total Protein Albumin Urine Protein Urine Blood Urine RBC Nasal S. aureus Screen Crossmatch ([facility]) 03/27/22 03/28/22 03/28/22 20:12 08:16 08:16 WBC 12.2 H RBC 2.93 L Hgb 8.9 L Hct 27.4 L MCV MCHC RDW 17.0 H Plt Count 143 L MPV Immature Gran % (Auto) Neut % (Auto) Lymph % (Auto) [place] % (Auto) Lymph # (Auto) [place] # (Auto) Abs Immat Gran (auto) Absolute Nucleated RBC Nucleated RBC % (auto) Neutrophils % (Manual) Band Neutrophils % Lymphocytes % (Manual) Monocytes % (Manual) Abs Neuts (Manual) Lymphocytes # (Manual) Nucleated RBCs PT 13.6 H INR 1.2 H APTT aPTT Heparin Protocol 41.8 L D ABG pH at Pt Temp ABG pCO2 at Pt Temp ABG pO2 at Pt Temp ABG HCO3 VBG pH VBG HCO3 Sodium Potassium Chloride Carbon Dioxide Anion Gap BUN Creatinine POC Glucose Random Glucose Fasting Glucose Calcium Phosphorus Total Bilirubin Direct Bilirubin AST ALT Alkaline Phosphatase Troponin I High Sens B-Natriuretic Peptide Total Protein Albumin Urine Protein Urine Blood Urine RBC Nasal S. aureus Screen Crossmatch ([facility]) 03/28/22 03/29/22 03/29/22 08:16 08:46 08:46 WBC RBC Hgb Hct MCV MCHC RDW Plt Count MPV Immature Gran % (Auto) Neut % (Auto) Lymph % (Auto) [place] % (Auto) Lymph # (Auto) [place] # (Auto) Abs Immat Gran (auto) Absolute Nucleated RBC Nucleated RBC % (auto) Neutrophils % (Manual) Band Neutrophils % Lymphocytes % (Manual) Monocytes % (Manual) Abs Neuts (Manual) Lymphocytes # (Manual) Nucleated RBCs PT 15.8 H INR 1.4 H APTT aPTT Heparin Protocol ABG pH at Pt Temp ABG pCO2 at Pt Temp ABG pO2 at Pt Temp ABG HCO3 VBG pH VBG HCO3 Sodium Potassium Chloride 110 H Carbon Dioxide 20 L 21 L Anion Gap BUN 97 H 97 H Creatinine 4.52 H* 4.68 H* POC Glucose Random Glucose Fasting Glucose Calcium 7.3 L 7.7 L Phosphorus Total Bilirubin Direct Bilirubin AST ALT Alkaline Phosphatase Troponin I High Sens B-Natriuretic Peptide Total Protein Albumin Urine Protein Urine Blood Urine RBC Nasal S. aureus Screen Crossmatch ([facility]) 03/29/22 03/29/22 03/29/22 08:46 08:46 15:33 WBC RBC Hgb Hct MCV MCHC RDW Plt Count MPV Immature Gran % (Auto) Neut % (Auto) Lymph % (Auto) [place] % (Auto) Lymph # (Auto) [place] # (Auto) Abs Immat Gran (auto) Absolute Nucleated RBC Nucleated RBC % (auto) Neutrophils % (Manual) Band Neutrophils % Lymphocytes % (Manual) Monocytes % (Manual) Abs Neuts (Manual) Lymphocytes # (Manual) Nucleated RBCs PT 18.9 H INR 1.6 H APTT aPTT Heparin Protocol 99.3 H D ABG pH at Pt Temp ABG pCO2 at Pt Temp ABG pO2 at Pt Temp ABG HCO3 VBG pH VBG HCO3 Sodium Potassium Chloride Carbon Dioxide Anion Gap BUN Creatinine POC Glucose Random Glucose Fasting Glucose Calcium Phosphorus Total Bilirubin Direct Bilirubin AST ALT Alkaline Phosphatase Troponin I High Sens B-Natriuretic Peptide 995 H Total Protein Albumin Urine Protein Urine Blood Urine RBC Nasal S. aureus Screen Crossmatch ([facility]) 03/29/22 03/30/22 03/30/22 22:28 05:16 05:16 WBC RBC Hgb Hct MCV MCHC RDW Plt Count MPV Immature Gran % (Auto) Neut % (Auto) Lymph % (Auto) [place] % (Auto) Lymph # (Auto) [place] # (Auto) Abs Immat Gran (auto) Absolute Nucleated RBC Nucleated RBC % (auto) Neutrophils % (Manual) Band Neutrophils % Lymphocytes % (Manual) Monocytes % (Manual) Abs Neuts (Manual) Lymphocytes # (Manual) Nucleated RBCs PT 28.9 H INR 2.5 H APTT aPTT Heparin Protocol 88.7 H D ABG pH at Pt Temp ABG pCO2 at Pt Temp ABG pO2 at Pt Temp ABG HCO3 VBG pH VBG HCO3 Sodium Potassium Chloride 109 H Carbon Dioxide 20 L Anion Gap BUN 100 H Creatinine 4.80 H* POC Glucose Random Glucose Fasting Glucose Calcium 6.9 L D Phosphorus Total Bilirubin Direct Bilirubin AST ALT Alkaline Phosphatase Troponin I High Sens B-Natriuretic Peptide Total Protein Albumin Urine Protein Urine Blood Urine RBC Nasal S. aureus Screen Crossmatch ([facility]) 03/30/22 03/31/22 03/31/22 11:44 05:55 05:55 WBC 11.2 H RBC 2.61 L Hgb 8.1 L Hct 25.1 L MCV MCHC RDW 17.6 H Plt Count 126 L MPV Immature Gran % (Auto) Neut % (Auto) Lymph % (Auto) [place] % (Auto) Lymph # (Auto) [place] # (Auto) Abs Immat Gran (auto) Absolute Nucleated RBC Nucleated RBC % (auto) Neutrophils % (Manual) Band Neutrophils % Lymphocytes % (Manual) Monocytes % (Manual) Abs Neuts (Manual) Lymphocytes # (Manual) Nucleated RBCs PT 61.2 H INR 5.2 H* D APTT aPTT Heparin Protocol 37.4 L D ABG pH at Pt Temp ABG pCO2 at Pt Temp ABG pO2 at Pt Temp ABG HCO3 VBG pH VBG HCO3 Sodium Potassium Chloride Carbon Dioxide Anion Gap BUN Creatinine POC Glucose Random Glucose Fasting Glucose Calcium Phosphorus Total Bilirubin Direct Bilirubin AST ALT Alkaline Phosphatase Troponin I High Sens B-Natriuretic Peptide Total Protein Albumin Urine Protein Urine Blood Urine RBC Nasal S. aureus Screen Crossmatch ([facility]) 04/01/22 04/01/22 04/02/22 05:18 05:18 05:39 WBC RBC Hgb Hct MCV MCHC RDW Plt Count MPV Immature Gran % (Auto) Neut % (Auto) Lymph % (Auto) [place] % (Auto) Lymph # (Auto) [place] # (Auto) Abs Immat Gran (auto) Absolute Nucleated RBC Nucleated RBC % (auto) Neutrophils % (Manual) Band Neutrophils % Lymphocytes % (Manual) Monocytes % (Manual) Abs Neuts (Manual) Lymphocytes # (Manual) Nucleated RBCs PT 85.5 H 42.2 H INR 7.2 H* D 3.6 H D APTT aPTT Heparin Protocol ABG pH at Pt Temp ABG pCO2 at Pt Temp ABG pO2 at Pt Temp ABG HCO3 VBG pH VBG HCO3 Sodium Potassium Chloride Carbon Dioxide 21 L Anion Gap BUN 104 H Creatinine 5.35 H* POC Glucose Random Glucose Fasting Glucose Calcium 6.9 L Phosphorus Total Bilirubin Direct Bilirubin AST ALT Alkaline Phosphatase Troponin I High Sens B-Natriuretic Peptide Total Protein Albumin Urine Protein Urine Blood Urine RBC Nasal S. aureus Screen Crossmatch ([facility]) 04/02/22 04/03/22 04/03/22 05:39 06:01 06:01 WBC 11.2 H RBC 2.88 L Hgb 8.7 L Hct 27.6 L MCV MCHC RDW 18.0 H Plt Count MPV Immature Gran % (Auto) Neut % (Auto) Lymph % (Auto) [place] % (Auto) Lymph # (Auto) [place] # (Auto) Abs Immat Gran (auto) Absolute Nucleated RBC Nucleated RBC % (auto) Neutrophils % (Manual) Band Neutrophils % Lymphocytes % (Manual) Monocytes % (Manual) Abs Neuts (Manual) Lymphocytes # (Manual) Nucleated RBCs PT INR APTT aPTT Heparin Protocol ABG pH at Pt Temp ABG pCO2 at Pt Temp ABG pO2 at Pt Temp ABG HCO3 VBG pH VBG HCO3 Sodium Potassium Chloride Carbon Dioxide 20 L 19 L Anion Gap BUN 110 H 112 H Creatinine 5.71 H* 6.15 H* POC Glucose Random Glucose Fasting Glucose Calcium 6.9 L 7.1 L Phosphorus Total Bilirubin Direct Bilirubin AST ALT Alkaline Phosphatase Troponin I High Sens B-Natriuretic Peptide Total Protein Albumin Urine Protein Urine Blood Urine RBC Nasal S. aureus Screen Crossmatch ([facility]) 04/03/22 04/04/22 04/04/22 06:01 06:10 06:10 WBC 12.0 H RBC 2.50 L Hgb 7.6 L Hct 23.9 L MCV MCHC RDW 17.8 H Plt Count MPV Immature Gran % (Auto) Neut % (Auto) Lymph % (Auto) [place] % (Auto) Lymph # (Auto) [place] # (Auto) Abs Immat Gran (auto) Absolute Nucleated RBC Nucleated RBC % (auto) Neutrophils % (Manual) Band Neutrophils % Lymphocytes % (Manual) Monocytes % (Manual) Abs Neuts (Manual) Lymphocytes # (Manual) Nucleated RBCs PT 27.2 H INR 2.3 H APTT aPTT Heparin Protocol ABG pH at Pt Temp ABG pCO2 at Pt Temp ABG pO2 at Pt Temp ABG HCO3 VBG pH VBG HCO3 Sodium Potassium Chloride Carbon Dioxide 19 L Anion Gap BUN 120 H Creatinine 6.49 H* POC Glucose Random Glucose Fasting Glucose Calcium 7.1 L Phosphorus Total Bilirubin Direct Bilirubin AST ALT Alkaline Phosphatase Troponin I High Sens B-Natriuretic Peptide Total Protein Albumin Urine Protein Urine Blood Urine RBC Nasal S. aureus Screen Crossmatch ([facility]) 04/04/22 04/04/22 04/05/22 06:10 09:17 06:25 WBC RBC Hgb Hct MCV MCHC RDW Plt Count MPV Immature Gran % (Auto) Neut % (Auto) Lymph % (Auto) [place] % (Auto) Lymph # (Auto) [place] # (Auto) Abs Immat Gran (auto) Absolute Nucleated RBC Nucleated RBC % (auto) Neutrophils % (Manual) Band Neutrophils % Lymphocytes % (Manual) Monocytes % (Manual) Abs Neuts (Manual) Lymphocytes # (Manual) Nucleated RBCs PT 33.2 H 31.3 H INR 2.9 H 2.7 H APTT aPTT Heparin Protocol ABG pH at Pt Temp ABG pCO2 at Pt Temp ABG pO2 at Pt Temp ABG HCO3 VBG pH VBG HCO3 Sodium Potassium Chloride Carbon Dioxide Anion Gap BUN Creatinine POC Glucose Random Glucose Fasting Glucose Calcium Phosphorus Total Bilirubin Direct Bilirubin AST ALT Alkaline Phosphatase Troponin I High Sens B-Natriuretic Peptide Total Protein Albumin Urine Protein Urine Blood Urine RBC Nasal S. aureus Screen Crossmatch ([facility]) See Detail 04/05/22 04/05/22 04/06/22 06:25 06:25 00:26 WBC RBC 2.47 L Hgb 7.5 L Hct 23.9 L MCV MCHC RDW 17.9 H Plt Count 155 L MPV Immature Gran % (Auto) Neut % (Auto) Lymph % (Auto) [place] % (Auto) Lymph # (Auto) [place] # (Auto) Abs Immat Gran (auto) Absolute Nucleated RBC Nucleated RBC % (auto) Neutrophils % (Manual) Band Neutrophils % Lymphocytes % (Manual) Monocytes % (Manual) Abs Neuts (Manual) Lymphocytes # (Manual) Nucleated RBCs PT INR APTT aPTT Heparin Protocol ABG pH at Pt Temp ABG pCO2 at Pt Temp ABG pO2 at Pt Temp ABG HCO3 VBG pH VBG HCO3 Sodium 134 L Potassium Chloride Carbon Dioxide 17 L 18 L Anion Gap BUN 122 H 73 H Creatinine 6.77 H* 4.89 H* POC Glucose Random Glucose Fasting Glucose 100 H Calcium 6.9 L 7.6 L D Phosphorus Total Bilirubin Direct Bilirubin AST ALT Alkaline Phosphatase Troponin I High Sens B-Natriuretic Peptide Total Protein Albumin Urine Protein Urine Blood Urine RBC Nasal S. aureus Screen Crossmatch ([facility]) 04/06/22 04/06/22 04/06/22 00:26 06:39 06:39 WBC 13.1 H RBC 2.82 L Hgb 8.7 L Hct 27.8 L MCV 98.6 H MCHC RDW 18.0 H Plt Count MPV Immature Gran % (Auto) Neut % (Auto) Lymph % (Auto) [place] % (Auto) Lymph # (Auto) [place] # (Auto) Abs Immat Gran (auto) Absolute Nucleated RBC Nucleated RBC % (auto) Neutrophils % (Manual) Band Neutrophils % Lymphocytes % (Manual) Monocytes % (Manual) Abs Neuts (Manual) Lymphocytes # (Manual) Nucleated RBCs PT INR APTT aPTT Heparin Protocol ABG pH at Pt Temp ABG pCO2 at Pt Temp ABG pO2 at Pt Temp ABG HCO3 VBG pH VBG HCO3 Sodium Potassium Chloride Carbon Dioxide 20 L Anion Gap BUN 77 H Creatinine 5.12 H* POC Glucose Random Glucose Fasting Glucose Calcium 7.9 L Phosphorus Total Bilirubin Direct Bilirubin AST ALT Alkaline Phosphatase Troponin I High Sens B-Natriuretic Peptide 1808 H Total Protein Albumin 2.3 L D Urine Protein Urine Blood Urine RBC Nasal S. aureus Screen Crossmatch ([facility]) 04/06/22 04/06/22 04/06/22 06:39 11:03 13:15 WBC RBC Hgb Hct MCV MCHC RDW Plt Count MPV Immature Gran % (Auto) Neut % (Auto) Lymph % (Auto) [place] % (Auto) Lymph # (Auto) [place] # (Auto) Abs Immat Gran (auto) Absolute Nucleated RBC Nucleated RBC % (auto) Neutrophils % (Manual) Band Neutrophils % Lymphocytes % (Manual) Monocytes % (Manual) Abs Neuts (Manual) Lymphocytes # (Manual) Nucleated RBCs PT 30.1 H INR 2.6 H APTT aPTT Heparin Protocol ABG pH at Pt Temp 7.02 L* ABG pCO2 at Pt Temp 80 H* ABG pO2 at Pt Temp 189 H ABG HCO3 21 L VBG pH 7.15 L* VBG HCO3 Sodium Potassium Chloride Carbon Dioxide Anion Gap BUN Creatinine POC Glucose Random Glucose Fasting Glucose Calcium Phosphorus Total Bilirubin Direct Bilirubin AST ALT Alkaline Phosphatase Troponin I High Sens B-Natriuretic Peptide Total Protein Albumin Urine Protein Urine Blood Urine RBC Nasal S. aureus Screen Crossmatch ([facility]) 04/07/22 04/07/22 04/07/22 05:14 05:15 05:15 WBC 25.3 H RBC 2.86 L Hgb 8.8 L Hct 26.5 L MCV MCHC RDW 17.9 H Plt Count MPV Immature Gran % (Auto) Neut % (Auto) Lymph % (Auto) [place] % (Auto) Lymph # (Auto) [place] # (Auto) Abs Immat Gran (auto) Absolute Nucleated RBC 0.020 H Nucleated RBC % (auto) Neutrophils % (Manual) 77 H Band Neutrophils % 21 H Lymphocytes % (Manual) 1 L Monocytes % (Manual) 1 L Abs Neuts (Manual) 24.8 H Lymphocytes # (Manual) 0.3 L Nucleated RBCs 1 H PT INR APTT aPTT Heparin Protocol ABG pH at Pt Temp ABG pCO2 at Pt Temp ABG pO2 at Pt Temp ABG HCO3 VBG pH 7.49 H VBG HCO3 16 L Sodium Potassium Chloride Carbon Dioxide 17 L Anion Gap 25 H BUN 84 H Creatinine 5.62 H* POC Glucose Random Glucose 50 L* Fasting Glucose Calcium 7.3 L D Phosphorus 6.7 H Total Bilirubin Direct Bilirubin AST ALT Alkaline Phosphatase 157 H D Troponin I High Sens B-Natriuretic Peptide Total Protein 5.8 L Albumin 2.0 L Urine Protein Urine Blood Urine RBC Nasal S. aureus Screen Crossmatch ([facility]) 04/07/22 04/07/22 04/07/22 05:15 06:43 07:18 WBC RBC Hgb Hct MCV MCHC RDW Plt Count MPV Immature Gran % (Auto) Neut % (Auto) Lymph % (Auto) [place] % (Auto) Lymph # (Auto) [place] # (Auto) Abs Immat Gran (auto) Absolute Nucleated RBC Nucleated RBC % (auto) Neutrophils % (Manual) Band Neutrophils % Lymphocytes % (Manual) Monocytes % (Manual) Abs Neuts (Manual) Lymphocytes # (Manual) Nucleated RBCs PT 29.6 H INR 2.6 H APTT aPTT Heparin Protocol ABG pH at Pt Temp ABG pCO2 at Pt Temp ABG pO2 at Pt Temp ABG HCO3 VBG pH VBG HCO3 Sodium Potassium Chloride Carbon Dioxide Anion Gap BUN Creatinine POC Glucose 158 H 125 H Random Glucose Fasting Glucose Calcium Phosphorus Total Bilirubin Direct Bilirubin AST ALT Alkaline Phosphatase Troponin I High Sens B-Natriuretic Peptide Total Protein Albumin Urine Protein Urine Blood Urine RBC Nasal S. aureus Screen Crossmatch ([facility]) 04/08/22 04/08/22 04/08/22 05:13 05:15 05:15 WBC 24.1 H RBC 2.86 L Hgb 8.6 L Hct 25.8 L MCV MCHC RDW 17.7 H Plt Count MPV Immature Gran % (Auto) Neut % (Auto) Lymph % (Auto) [place] % (Auto) Lymph # (Auto) [place] # (Auto) Abs Immat Gran (auto) Absolute Nucleated RBC Nucleated RBC % (auto) Neutrophils % (Manual) Band Neutrophils % Lymphocytes % (Manual) Monocytes % (Manual) Abs Neuts (Manual) Lymphocytes # (Manual) Nucleated RBCs PT 19.5 H INR 1.7 H APTT aPTT Heparin Protocol ABG pH at Pt Temp ABG pCO2 at Pt Temp ABG pO2 at Pt Temp ABG HCO3 VBG pH 7.48 H VBG HCO3 19 L Sodium Potassium Chloride Carbon Dioxide Anion Gap BUN Creatinine POC Glucose Random Glucose Fasting Glucose Calcium Phosphorus Total Bilirubin Direct Bilirubin AST ALT Alkaline Phosphatase Troponin I High Sens B-Natriuretic Peptide Total Protein Albumin Urine Protein Urine Blood Urine RBC Nasal S. aureus Screen Crossmatch ([facility]) 04/08/22 04/08/22 04/08/22 05:15 05:15 14:23 WBC RBC Hgb Hct MCV MCHC RDW Plt Count MPV Immature Gran % (Auto) Neut % (Auto) Lymph % (Auto) [place] % (Auto) Lymph # (Auto) [place] # (Auto) Abs Immat Gran (auto) Absolute Nucleated RBC Nucleated RBC % (auto) Neutrophils % (Manual) Band Neutrophils % Lymphocytes % (Manual) Monocytes % (Manual) Abs Neuts (Manual) Lymphocytes # (Manual) Nucleated RBCs PT INR APTT aPTT Heparin Protocol ABG pH at Pt Temp ABG pCO2 at Pt Temp ABG pO2 at Pt Temp ABG HCO3 VBG pH VBG HCO3 Sodium Potassium Chloride Carbon Dioxide 20 L Anion Gap BUN 91 H Creatinine 5.78 H* POC Glucose Random Glucose Fasting Glucose Calcium 7.1 L Phosphorus 7.0 H Total Bilirubin Direct Bilirubin AST ALT Alkaline Phosphatase Troponin I High Sens 1185.5 H* B-Natriuretic Peptide 2267 H Total Protein Albumin 1.9 L Urine Protein Urine Blood Urine RBC Nasal S. aureus Screen Crossmatch ([facility]) 04/08/22 04/08/22 04/08/22 17:28 17:28 23:54 WBC RBC Hgb 8.6 L Hct 26.1 L MCV MCHC RDW Plt Count MPV Immature Gran % (Auto) Neut % (Auto) Lymph % (Auto) [place] % (Auto) Lymph # (Auto) [place] # (Auto) Abs Immat Gran (auto) Absolute Nucleated RBC Nucleated RBC % (auto) Neutrophils % (Manual) Band Neutrophils % Lymphocytes % (Manual) Monocytes % (Manual) Abs Neuts (Manual) Lymphocytes # (Manual) Nucleated RBCs PT INR APTT aPTT Heparin Protocol 47.3 L D ABG pH at Pt Temp ABG pCO2 at Pt Temp ABG pO2 at Pt Temp ABG HCO3 VBG pH VBG HCO3 Sodium Potassium Chloride Carbon Dioxide Anion Gap BUN Creatinine POC Glucose Random Glucose Fasting Glucose Calcium Phosphorus Total Bilirubin Direct Bilirubin AST ALT Alkaline Phosphatase Troponin I High Sens 1009.1 H* B-Natriuretic Peptide Total Protein Albumin Urine Protein Urine Blood Urine RBC Nasal S. aureus Screen Crossmatch ([facility]) 04/08/22 04/09/22 04/09/22 23:54 05:23 05:23 WBC 24.3 H RBC 3.03 L Hgb 9.0 L Hct 28.1 L MCV MCHC RDW 17.9 H Plt Count MPV Immature Gran % (Auto) Neut % (Auto) Lymph % (Auto) [place] % (Auto) Lymph # (Auto) [place] # (Auto) Abs Immat Gran (auto) Absolute Nucleated RBC Nucleated RBC % (auto) Neutrophils % (Manual) Band Neutrophils % Lymphocytes % (Manual) Monocytes % (Manual) Abs Neuts (Manual) Lymphocytes # (Manual) Nucleated RBCs PT 14.7 H INR 1.3 H APTT aPTT Heparin Protocol ABG pH at Pt Temp ABG pCO2 at Pt Temp ABG pO2 at Pt Temp ABG HCO3 VBG pH VBG HCO3 Sodium Potassium Chloride Carbon Dioxide Anion Gap BUN Creatinine POC Glucose Random Glucose Fasting Glucose Calcium Phosphorus Total Bilirubin Direct Bilirubin AST ALT Alkaline Phosphatase Troponin I High Sens 1061.7 H* B-Natriuretic Peptide Total Protein Albumin Urine Protein Urine Blood Urine RBC Nasal S. aureus Screen Crossmatch ([facility]) 04/09/22 04/09/22 04/09/22 05:23 05:23 05:26 WBC RBC Hgb Hct MCV MCHC RDW Plt Count MPV Immature Gran % (Auto) Neut % (Auto) Lymph % (Auto) [place] % (Auto) Lymph # (Auto) [place] # (Auto) Abs Immat Gran (auto) Absolute Nucleated RBC Nucleated RBC % (auto) Neutrophils % (Manual) Band Neutrophils % Lymphocytes % (Manual) Monocytes % (Manual) Abs Neuts (Manual) Lymphocytes # (Manual) Nucleated RBCs PT INR APTT aPTT Heparin Protocol ABG pH at Pt Temp ABG pCO2 at Pt Temp ABG pO2 at Pt Temp ABG HCO3 VBG pH 7.30 L VBG HCO3 20 L Sodium 134 L Potassium Chloride Carbon Dioxide 20 L Anion Gap BUN 63 H Creatinine 4.30 H* POC Glucose Random Glucose Fasting Glucose Calcium 7.4 L Phosphorus 4.7 H Total Bilirubin Direct Bilirubin AST ALT Alkaline Phosphatase Troponin I High Sens 1045.5 H* B-Natriuretic Peptide Total Protein Albumin 2.2 L Urine Protein Urine Blood Urine RBC Nasal S. aureus Screen Crossmatch ([facility]) 04/09/22 04/10/22 04/10/22 10:10 05:24 05:27 WBC 25.4 H RBC 2.90 L Hgb 8.7 L Hct 27.2 L MCV MCHC RDW 18.1 H Plt Count 130 L MPV Immature Gran % (Auto) Neut % (Auto) Lymph % (Auto) [place] % (Auto) Lymph # (Auto) [place] # (Auto) Abs Immat Gran (auto) Absolute Nucleated RBC Nucleated RBC % (auto) Neutrophils % (Manual) Band Neutrophils % Lymphocytes % (Manual) Monocytes % (Manual) Abs Neuts (Manual) Lymphocytes # (Manual) Nucleated RBCs PT INR APTT aPTT Heparin Protocol 39.6 L ABG pH at Pt Temp ABG pCO2 at Pt Temp ABG pO2 at Pt Temp ABG HCO3 VBG pH VBG HCO3 16 L Sodium Potassium Chloride Carbon Dioxide Anion Gap BUN Creatinine POC Glucose Random Glucose Fasting Glucose Calcium Phosphorus Total Bilirubin Direct Bilirubin AST ALT Alkaline Phosphatase Troponin I High Sens B-Natriuretic Peptide Total Protein Albumin Urine Protein Urine Blood Urine RBC Nasal S. aureus Screen Crossmatch ([facility]) 04/10/22 04/10/22 04/10/22 05:27 05:27 05:27 WBC RBC Hgb Hct MCV MCHC RDW Plt Count MPV Immature Gran % (Auto) Neut % (Auto) Lymph % (Auto) [place] % (Auto) Lymph # (Auto) [place] # (Auto) Abs Immat Gran (auto) Absolute Nucleated RBC Nucleated RBC % (auto) Neutrophils % (Manual) Band Neutrophils % Lymphocytes % (Manual) Monocytes % (Manual) Abs Neuts (Manual) Lymphocytes # (Manual) Nucleated RBCs PT INR APTT aPTT Heparin Protocol 47.4 L ABG pH at Pt Temp ABG pCO2 at Pt Temp ABG pO2 at Pt Temp ABG HCO3 VBG pH VBG HCO3 Sodium 133 L Potassium Chloride Carbon Dioxide 18 L Anion Gap BUN 74 H Creatinine 4.94 H* POC Glucose Random Glucose Fasting Glucose Calcium 7.2 L Phosphorus 5.7 H Total Bilirubin Direct Bilirubin AST ALT Alkaline Phosphatase Troponin I High Sens B-Natriuretic Peptide 2556 H Total Protein Albumin 1.8 L Urine Protein Urine Blood Urine RBC Nasal S. aureus Screen Crossmatch ([facility]) 04/10/22 04/11/22 04/11/22 15:52 05:10 05:10 WBC 24.3 H RBC 3.03 L Hgb 9.0 L Hct 28.0 L MCV MCHC RDW 18.1 H Plt Count 144 L MPV Immature Gran % (Auto) Neut % (Auto) Lymph % (Auto) [place] % (Auto) Lymph # (Auto) [place] # (Auto) Abs Immat Gran (auto) Absolute Nucleated RBC 0.020 H Nucleated RBC % (auto) Neutrophils % (Manual) Band Neutrophils % Lymphocytes % (Manual) Monocytes % (Manual) Abs Neuts (Manual) Lymphocytes # (Manual) Nucleated RBCs PT INR APTT aPTT Heparin Protocol 49.8 L ABG pH at Pt Temp ABG pCO2 at Pt Temp ABG pO2 at Pt Temp ABG HCO3 VBG pH VBG HCO3 Sodium Potassium 5.2 H Chloride Carbon Dioxide 15 L Anion Gap 22 H BUN 80 H Creatinine 5.60 H* POC Glucose Random Glucose Fasting Glucose Calcium 7.2 L Phosphorus 6.1 H Total Bilirubin Direct Bilirubin AST ALT Alkaline Phosphatase Troponin I High Sens B-Natriuretic Peptide Total Protein Albumin 2.1 L Urine Protein Urine Blood Urine RBC Nasal S. aureus Screen Crossmatch ([facility]) 04/11/22 04/11/22 04/11/22 05:10 05:18 10:04 WBC RBC Hgb Hct MCV MCHC RDW Plt Count MPV Immature Gran % (Auto) Neut % (Auto) Lymph % (Auto) [place] % (Auto) Lymph # (Auto) [place] # (Auto) Abs Immat Gran (auto) Absolute Nucleated RBC Nucleated RBC % (auto) Neutrophils % (Manual) Band Neutrophils % Lymphocytes % (Manual) Monocytes % (Manual) Abs Neuts (Manual) Lymphocytes # (Manual) Nucleated RBCs PT INR APTT aPTT Heparin Protocol ABG pH at Pt Temp ABG pCO2 at Pt Temp ABG pO2 at Pt Temp ABG HCO3 VBG pH VBG HCO3 15 L Sodium Potassium Chloride Carbon Dioxide Anion Gap BUN Creatinine POC Glucose Random Glucose Fasting Glucose Calcium Phosphorus Total Bilirubin Direct Bilirubin AST ALT Alkaline Phosphatase Troponin I High Sens B-Natriuretic Peptide 1526 H Total Protein Albumin Urine Protein Urine Blood Urine RBC Nasal S. aureus Screen POSITIVE A Crossmatch ([facility]) 04/11/22 04/12/22 04/12/22 10:15 05:46 05:46 WBC 16.7 H RBC 2.73 L Hgb 8.3 L Hct 25.8 L MCV MCHC RDW 18.8 H Plt Count 145 L MPV Immature Gran % (Auto) Neut % (Auto) Lymph % (Auto) [place] % (Auto) Lymph # (Auto) [place] # (Auto) Abs Immat Gran (auto) Absolute Nucleated RBC 0.100 H Nucleated RBC % (auto) 0.6 H Neutrophils % (Manual) Band Neutrophils % Lymphocytes % (Manual) Monocytes % (Manual) Abs Neuts (Manual) Lymphocytes # (Manual) Nucleated RBCs PT INR APTT aPTT Heparin Protocol 48.1 L ABG pH at Pt Temp ABG pCO2 at Pt Temp ABG pO2 at Pt Temp ABG HCO3 VBG pH VBG HCO3 Sodium 134 L Potassium 5.7 H Chloride Carbon Dioxide 13 L Anion Gap 21 H BUN 64 H Creatinine 4.58 H* POC Glucose Random Glucose Fasting Glucose Calcium 6.8 L Phosphorus 6.3 H Total Bilirubin Direct Bilirubin AST ALT Alkaline Phosphatase Troponin I High Sens B-Natriuretic Peptide Total Protein Albumin Urine Protein Urine Blood Urine RBC Nasal S. aureus Screen Crossmatch ([facility]) 04/12/22 04/12/22 04/12/22 05:48 07:26 15:04 WBC RBC Hgb Hct MCV MCHC RDW Plt Count MPV Immature Gran % (Auto) Neut % (Auto) Lymph % (Auto) [place] % (Auto) Lymph # (Auto) [place] # (Auto) Abs Immat Gran (auto) Absolute Nucleated RBC Nucleated RBC % (auto) Neutrophils % (Manual) Band Neutrophils % Lymphocytes % (Manual) Monocytes % (Manual) Abs Neuts (Manual) Lymphocytes # (Manual) Nucleated RBCs PT INR APTT aPTT Heparin Protocol 45.7 L ABG pH at Pt Temp ABG pCO2 at Pt Temp ABG pO2 at Pt Temp ABG HCO3 VBG pH VBG HCO3 15 L Sodium Potassium Chloride Carbon Dioxide 18 L Anion Gap BUN 41 H Creatinine 2.89 H POC Glucose Random Glucose Fasting Glucose Calcium 7.1 L Phosphorus Total Bilirubin Direct Bilirubin AST ALT Alkaline Phosphatase Troponin I High Sens B-Natriuretic Peptide Total Protein Albumin Urine Protein Urine Blood Urine RBC Nasal S. aureus Screen Crossmatch ([facility]) 04/12/22 04/12/22 04/13/22 15:11 15:27 05:16 WBC RBC Hgb 8.4 L Hct 26.1 L MCV MCHC RDW Plt Count MPV Immature Gran % (Auto) Neut % (Auto) Lymph % (Auto) [place] % (Auto) Lymph # (Auto) [place] # (Auto) Abs Immat Gran (auto) Absolute Nucleated RBC Nucleated RBC % (auto) Neutrophils % (Manual) Band Neutrophils % Lymphocytes % (Manual) Monocytes % (Manual) Abs Neuts (Manual) Lymphocytes # (Manual) Nucleated RBCs PT INR APTT aPTT Heparin Protocol ABG pH at Pt Temp ABG pCO2 at Pt Temp ABG pO2 at Pt Temp ABG HCO3 VBG pH VBG HCO3 18 L 16 L Sodium Potassium Chloride Carbon Dioxide Anion Gap BUN Creatinine POC Glucose Random Glucose Fasting Glucose Calcium Phosphorus Total Bilirubin Direct Bilirubin AST ALT Alkaline Phosphatase Troponin I High Sens B-Natriuretic Peptide Total Protein Albumin Urine Protein Urine Blood Urine RBC Nasal S. aureus Screen Crossmatch ([facility]) 04/13/22 04/13/22 04/13/22 05:18 05:18 05:18 WBC 17.3 H RBC 2.54 L Hgb 7.7 L Hct 24.0 L MCV MCHC RDW 19.0 H Plt Count 137 L MPV Immature Gran % (Auto) Neut % (Auto) Lymph % (Auto) [place] % (Auto) Lymph # (Auto) [place] # (Auto) Abs Immat Gran (auto) Absolute Nucleated RBC 0.160 H Nucleated RBC % (auto) 0.9 H Neutrophils % (Manual) Band Neutrophils % Lymphocytes % (Manual) Monocytes % (Manual) Abs Neuts (Manual) Lymphocytes # (Manual) Nucleated RBCs PT 15.4 H INR 1.3 H APTT aPTT Heparin Protocol 36.1 L D ABG pH at Pt Temp ABG pCO2 at Pt Temp ABG pO2 at Pt Temp ABG HCO3 VBG pH VBG HCO3 Sodium Potassium Chloride Carbon Dioxide Anion Gap BUN Creatinine POC Glucose Random Glucose Fasting Glucose Calcium Phosphorus Total Bilirubin Direct Bilirubin AST ALT Alkaline Phosphatase Troponin I High Sens B-Natriuretic Peptide 2730 H Total Protein Albumin Urine Protein Urine Blood Urine RBC Nasal S. aureus Screen Crossmatch ([facility]) 04/13/22 04/14/22 04/14/22 05:20 05:00 05:04 WBC 16.5 H RBC 2.53 L Hgb 7.5 L Hct 23.3 L MCV MCHC RDW 19.1 H Plt Count 118 L MPV Immature Gran % (Auto) Neut % (Auto) Lymph % (Auto) [place] % (Auto) Lymph # (Auto) [place] # (Auto) Abs Immat Gran (auto) Absolute Nucleated RBC 0.220 H Nucleated RBC % (auto) 1.3 H Neutrophils % (Manual) Band Neutrophils % Lymphocytes % (Manual) Monocytes % (Manual) Abs Neuts (Manual) Lymphocytes # (Manual) Nucleated RBCs PT INR APTT aPTT Heparin Protocol ABG pH at Pt Temp ABG pCO2 at Pt Temp ABG pO2 at Pt Temp ABG HCO3 VBG pH VBG HCO3 15 L Sodium 134 L Potassium Chloride Carbon Dioxide 16 L Anion Gap BUN 50 H Creatinine 3.40 H POC Glucose Random Glucose Fasting Glucose Calcium 7.0 L Phosphorus 5.2 H Total Bilirubin 1.7 H Direct Bilirubin AST 321 H ALT 214 H Alkaline Phosphatase 198 H D Troponin I High Sens B-Natriuretic Peptide Total Protein 4.9 L Albumin 2.0 L Urine Protein Urine Blood Urine RBC Nasal S. aureus Screen Crossmatch ([facility]) 04/14/22 04/14/22 04/15/22 05:04 05:04 05:15 WBC RBC Hgb Hct MCV MCHC RDW Plt Count MPV Immature Gran % (Auto) Neut % (Auto) Lymph % (Auto) [place] % (Auto) Lymph # (Auto) [place] # (Auto) Abs Immat Gran (auto) Absolute Nucleated RBC Nucleated RBC % (auto) Neutrophils % (Manual) Band Neutrophils % Lymphocytes % (Manual) Monocytes % (Manual) Abs Neuts (Manual) Lymphocytes # (Manual) Nucleated RBCs PT INR APTT aPTT Heparin Protocol 45.6 L D ABG pH at Pt Temp ABG pCO2 at Pt Temp ABG pO2 at Pt Temp ABG HCO3 VBG pH 7.27 L VBG HCO3 13 L Sodium 134 L Potassium Chloride Carbon Dioxide 15 L Anion Gap BUN 60 H Creatinine 3.69 H POC Glucose Random Glucose 153 H Fasting Glucose Calcium 6.7 L Phosphorus 5.2 H Total Bilirubin 1.4 H Direct Bilirubin AST 177 H ALT 160 H Alkaline Phosphatase 195 H Troponin I High Sens B-Natriuretic Peptide Total Protein 4.5 L Albumin 1.7 L Urine Protein Urine Blood Urine RBC Nasal S. aureus Screen Crossmatch ([facility]) 04/15/22 04/15/22 04/15/22 05:16 05:16 05:16 WBC RBC 2.29 L Hgb 6.7 L* Hct 21.4 L MCV MCHC RDW 19.5 H Plt Count 90 L MPV 12.8 H Immature Gran % (Auto) Neut % (Auto) Lymph % (Auto) [place] % (Auto) Lymph # (Auto) [place] # (Auto) Abs Immat Gran (auto) Absolute Nucleated RBC 0.590 H Nucleated RBC % (auto) 7.4 H Neutrophils % (Manual) Band Neutrophils % 25 H Lymphocytes % (Manual) 5 L Monocytes % (Manual) Abs Neuts (Manual) Lymphocytes # (Manual) 0.4 L Nucleated RBCs 5 H PT INR APTT aPTT Heparin Protocol ABG pH at Pt Temp ABG pCO2 at Pt Temp ABG pO2 at Pt Temp ABG HCO3 VBG pH VBG HCO3 Sodium Potassium Chloride Carbon Dioxide 13 L Anion Gap BUN 73 H Creatinine 3.65 H POC Glucose Random Glucose 149 H Fasting Glucose Calcium 7.0 L Phosphorus 5.7 H Total Bilirubin 2.0 H Direct Bilirubin 1.7 H AST 77 H ALT 94 H Alkaline Phosphatase 181 H Troponin I High Sens B-Natriuretic Peptide 4746 H Total Protein 4.9 L Albumin 2.3 L D Urine Protein Urine Blood Urine RBC Nasal S. aureus Screen Crossmatch ([facility]) 04/15/22 04/15/22 07:27 07:27 WBC RBC 2.31 L Hgb 6.9 L* Hct 21.6 L MCV MCHC RDW 19.6 H Plt Count 85 L MPV Immature Gran % (Auto) Neut % (Auto) Lymph % (Auto) [place] % (Auto) Lymph # (Auto) [place] # (Auto) Abs Immat Gran (auto) Absolute Nucleated RBC 0.580 H Nucleated RBC % (auto) 7.4 H Neutrophils % (Manual) Band Neutrophils % 22 H Lymphocytes % (Manual) 7 L Monocytes % (Manual) Abs Neuts (Manual) Lymphocytes # (Manual) 0.6 L Nucleated RBCs 25 H PT INR APTT aPTT Heparin Protocol ABG pH at Pt Temp ABG pCO2 at Pt Temp ABG pO2 at Pt Temp ABG HCO3 VBG pH VBG HCO3 Sodium Potassium Chloride Carbon Dioxide Anion Gap BUN Creatinine POC Glucose Random Glucose Fasting Glucose Calcium Phosphorus Total Bilirubin Direct Bilirubin AST ALT Alkaline Phosphatase Troponin I High Sens B-Natriuretic Peptide Total Protein Albumin Urine Protein Urine Blood Urine RBC Nasal S. aureus Screen Crossmatch ([facility]) See Detail Microbiology: Microbiology 04/15/22 07:51 Sputum - Suctioned Gram Stain - Final 04/12/22 15:27 Blood - Venous Blood Culture - Preliminary No growth after 48 hours. 04/12/22 15:27 Blood - Venous Blood Culture - Preliminary No growth after 48 hours. 04/07/22 15:15 Blood - Venous Blood Culture - Final No growth after 5 days. 04/07/22 15:15 Blood - Venous Blood Culture - Final No growth after 5 days. 04/08/22 10:43 Sputum - Suctioned Gram Stain - Final 04/08/22 10:43 Sputum - Suctioned Sputum Culture - Final 04/03/22 11:30 Thoracentesis Fluid Gram Stain - Final 04/03/22 11:30 Thoracentesis Fluid Anaerobic Culture - Final NO GROWTH AFTER 5 DAYS 04/03/22 11:30 Thoracentesis Fluid Body Fluid Culture - Final No growth after 2 days Assessment and Plan (1) Pleural effusion: Status: Acute (2) Acute on chronic heart failure with reduced ejection fraction and diastolic dysfunction: Status: Acute (3) Atelectasis: Status: Acute (4) Pulmonary hypertension: Status: Acute (5) Pneumonia: Qualifiers: Pneumonia type: due to unspecified organism Laterality: bilateral Lung location: lower lobe of lung Qualified Code(s): J18.9 - Pneumonia, unspecified organism Status: Acute Plan the patient is critically ill with more to organ system failure and severe cardiomyopathy resulting in congestive heart failure and cardiogenic shock. With persistent airspace disease and atelectasis, on now with increasing temperatures. Sputum cultures sent. Currently on full ventilatory support and vasopressor use. At this point the patient is high risk for any diagnostic or therapeutic interventions in view of her significant cardiomyopathy. the patient also does not appear to be waking up after her sedation holidays started. recommendations: Continue broad-spectrum antibiotics awaiting sputum culture serial imaging studies consider bronchoscopy if there is worsening airspace disease on the current therapy. will reassess in 24 hours Goals of care Procedures Date of Service Date of Service: 04/15/22
[2022-04-16] VITALS (18 sets, daily range): BP systolic 86–103; BP diastolic 43–58; PULSE 60–119; RESP 25–33; TEMP 35.2–38; O2SAT 91–98
[2022-04-16] MEDS: fentaNYL citrate/PF 100 MCG/2 ML VIAL 50 MCG IVPUSH (00:32)
[2022-04-16] MEDS: Pantoprazole Sodium 40 MG/10 ML VIAL IVPUSH (03:40)
[2022-04-16 06:08] LABS: VBG Base Excess -21.4 mmol/L; VBG HCO3 6 mmol/L (22-26); VBG pCO2 18 mmHg; VBG pO2 56 mmHg
[2022-04-16 06:30] LABS: Glucose, Whole Blood < 10 mg/dL (60-115)
[2022-04-16] MEDS: Levothyroxine Sodium 112 MCG, Levothyroxine Sodium 25 MCG 137 MCG PO (06:30)
[2022-04-16 06:34] LABS: INTERNATIONAL NORM RATIO 2.6 (0.9-1.1); Prothrombin Time 30.7 SEC (9.9-13.0)
[2022-04-16 06:37] LABS: Partial Thromboplastin Time 50.4 SEC (24.1-38.0)
[2022-04-16 06:46] LABS: Mean Corpuscular Volume 98.2 fL (80.0-98.0)
[2022-04-16 06:49] LABS: Hematocrit 26.8 % (37.0-47.0); Hemoglobin 8.3 g/dl (12.0-16.0); Mean Corpuscular Hemoglobin 30.4 pg (27.0-33.0); Red Blood Count 2.73 X10*6/uL (4.20-5.50); Red Cell Distribution Width 19.1 % (11.0-16.0)
[2022-04-16 06:51] LABS: Aspartate Amino Transferase 4527 U/L (5-31); B Type Natriuretic Peptide 9985 pg/mL (<100); Estimated Glomerular Filt Rate 15
[2022-04-16 06:53] LABS: NRBC Pct Auto 9.4 /100WBC (0.0-0.2); PLT ABN DIST 1; Platelet Count 61 X10*3/uL (160-400); WBC ABN SCTR FOR CBC 1
[2022-04-16] MEDS: Insulin Regular, Human 100 UNIT/ML 3 ML VIAL IVPUSH (06:55)
[2022-04-16] MEDS: Calcium Gluconate/NaCl,Iso-Osm 1 GM/50 ML PLAST..BAG IV (06:56)
[2022-04-16] MEDS: Dextrose 50 % 25 GM/50 ML SYRINGE IVPUSH ×2 (06:56→07:59)
[2022-04-16 07:43] LABS: Carbon Dioxide 6 mmol/L (22-29); Glucose Random 5 mg/dL (60-115)
[2022-04-16 07:44] LABS: Alanine Aminotransferase 966 U/L (0-31); Albumin Level 1.9 g/dL (3.5-5.0); Alkaline Phosphatase 274 U/L (39-117); Anion Gap 30 (12-20); Atypical Lymphs Percent Manual 2 % (0-6); Band Neutrophils Percent 25 % (3-5); Bilirubin Direct 3.4 mg/dL (0.0-0.5); Bilirubin Total 4.3 mg/dL (0.0-1.0); Blood Urea Nitrogen 55 mg/dL (9-16); Chloride 106 mmol/L (96-108); Lymphocytes Percent Manual 5 % (20-40); Magnesium 2.4 mg/dL (1.6-2.6); Metamyelocytes Percent 3 %; Monocytes Percent Manual 3 % (2-11); Neutrophils Percent Manual 62 % (45-73); Phosphorus 8.4 mg/dL (2.7-4.5); Sodium 134 mmol/L (135-145); Total Protein 4.7 g/dL (6.5-8.0)
[2022-04-16 07:45] LABS: Nucleated Red Blood Cells 14 /100WBC (0-0)
[2022-04-16] MEDS: Albuterol/Iprat 2.5/0.5MG 3 ML AMPUL.NEB INHALE ×2 (07:45→11:29)
[2022-04-16] MEDS: Chlorhexidine Gluc Oral Rinse 15 ML MOUTHWASH BUCCAL (07:45)
[2022-04-16] MEDS: 0.9 % Sodium Chloride Flush 3 ML SYRINGE IVFLUSH (07:45)
[2022-04-16] MEDS: Artificial Tears 15 ML DROPS 1 DROP EYE-BOTH (07:45)
[2022-04-16] MEDS: Acetylcysteine 10 % 400 MG/4 ML VIAL INHALE ×2 (07:45→11:29)
[2022-04-16] MEDS: Aspirin 81 MG TAB.CHEW G-TUBE (07:45)
[2022-04-16] MEDS: Nystatin Powder 15 GM BOTTLE 1 APPL TOPICAL (07:45)
[2022-04-16 07:48] LABS: RBC Morphology NOTED
[2022-04-16 07:49] LABS: Acanthocytes 1+ (0-2) /OIF; Burr Cells 2+ (3-5) /OIF; Dohle Bodies PRESENT; Hypochromasia 1+ (5-14) /OIF; Macrocytosis 1+ (5-14) /OIF; Pappenheimer Bodies PRESENT; Polychromasia 1+ (0-2) /OIF; Toxic Granulation PRESENT; Toxic Vacuolation PRESENT
[2022-04-16 07:50] LABS: Platelet Estimate DECREASED (NORMAL); Platelet Morphology Comment NORMAL
[2022-04-16 07:51] LABS: Atypical Lymph Absolute Manual 0.2 x10*3/uL; Lymphocytes Absolute Manual 0.5 X10*3/uL (1.2-4.9); Metamyelocytes Absolute 0.3 X10*3/uL; Monocytes Absolute Manual 0.3 X10*3/uL (0.1-1.2); Neutrophils Absolute Manual 9.5 X10*3/uL (2.0-8.3); White Blood Count 10.9 X10*3/uL (4.8-10.8)
[2022-04-16 07:59] LABS: Glucose, Whole Blood 44 mg/dL (60-115)
[2022-04-16 08:16] LABS: Venous Blood Gas Refer to POC result
[2022-04-16 08:19] LABS: Glucose, Whole Blood 68 mg/dL (60-115)
[2022-04-16 08:19] LABS: VBG Base Excess -23.4 mmol/L; VBG HCO3 5 mmol/L (22-26); VBG pCO2 18 mmHg; VBG pH 7.03 (7.32-7.43); VBG pO2 64 mmHg
[2022-04-16 09:10] LABS: Lactic Acid 12.9 mmol/L (0.5-2.0)
--- NOTE | 2022-04-16 10:04 | PM.PNNEP ---
Subjective Subjective Date of Service: 04/16/22 Principal diagnosis: Acute on chronic CHF, hematuria, mechanical Mitral valve Interval history: Severe hypoglycemia hyperkalemia Intubated Physical Exam Vital Signs: Vital Signs: Last Vital Signs Temp 97.5 F 04/16/22 09:00 Pulse 93 04/16/22 09:00 Resp 31 H 04/16/22 09:00 BP 102/50 L 04/16/22 09:00 Pulse Ox 94 04/16/22 09:00 O2 Del Method 04/16/22 09:00 O2 Flow Rate 40 04/07/22 03:56 FiO2 25 04/16/22 09:00 BMI result Body Mass Index 27.6 Const: Other: Intubated, sedated Neck: Neck: Yes supple and Yes no JVD Resp: Other: Mechanical breath sounds Auscultation: crackles and diminished lung sounds Cardio: Rate: regular rate Skin: General skin exam: no rashes or lesions noted Lesions: no lesions Objective Data Labs CBC & Chem 7: 04/16/22 05:30 04/16/22 05:30 Labs: Laboratory Results - last 24 hr 04/15/22 04/15/22 04/16/22 07:27 07:27 05:30 WBC 10.9 H RBC 2.73 L Hgb 8.3 L D Hct 26.8 L D MCV 98.2 H MCH 30.4 MCHC 31.0 RDW 19.1 H Plt Count 61 L D MPV Not Reportable Immature Gran % (Auto) Cancelled Neut % (Auto) Cancelled Lymph % (Auto) Cancelled [place] % (Auto) Cancelled Eos % (Auto) Cancelled Baso % (Auto) Cancelled Lymph # (Auto) Cancelled [place] # (Auto) Cancelled Eos # (Auto) Cancelled Baso # (Auto) Cancelled Abs Immat Gran (auto) Cancelled Absolute Neuts (auto) Cancelled Absolute Nucleated RBC 1.020 H Nucleated RBC % (auto) 9.4 H Neutrophils % (Manual) 62 Band Neutrophils % 25 H Lymphocytes % (Manual) 5 L Atypical Lymphs % (Man) 2 Monocytes % (Manual) 3 Metamyelocytes % 3 Abs Neuts (Manual) 9.5 H Lymphocytes # (Manual) 0.5 L Atyp Lymphs # (Manual) 0.2 Monocytes # (Manual) 0.3 Metamyelocytes # 0.3 Nucleated RBCs 14 H Toxic Granulation PRESENT Toxic Vacuolation PRESENT Dohle Bodies PRESENT Platelet Estimate DECREASED Plt Morphology Comment NORMAL RBC Morphology NOTED Polychromasia 1+ (0-2) Hypochromasia 1+ (5-14) Macrocytosis 1+ (5-14) Pappenheimer Bodies PRESENT Woodrow Cells 2+ (3-5) Acanthocytes (Spur) 1+ (0-2) Smear Path Review SEE NOTE PT INR APTT VBG pH VBG pCO2 VBG pO2 VBG HCO3 VBG O2 Saturation VBG Base Excess Sodium Potassium Chloride Carbon Dioxide Anion Gap BUN Creatinine Estim Creat Clear Calc Estimated GFR POC Glucose Random Glucose Lactic Acid Calcium Phosphorus Magnesium Total Bilirubin Direct Bilirubin AST ALT Alkaline Phosphatase B-Natriuretic Peptide Total Protein Albumin Blood Type B Negative Antibody Screen POSITIVE Antibody Identification Anti-D BRI, Polyspecific NEGATIVE Positive BRI Work-up TNP Crossmatch ([facility]) See Detail 04/16/22 04/16/22 04/16/22 05:30 05:30 05:30 WBC RBC Hgb Hct MCV MCH MCHC RDW Plt Count MPV Immature Gran % (Auto) Neut % (Auto) Lymph % (Auto) [place] % (Auto) Eos % (Auto) Baso % (Auto) Lymph # (Auto) [place] # (Auto) Eos # (Auto) Baso # (Auto) Abs Immat Gran (auto) Absolute Neuts (auto) Absolute Nucleated RBC Nucleated RBC % (auto) Neutrophils % (Manual) Band Neutrophils % Lymphocytes % (Manual) Atypical Lymphs % (Man) Monocytes % (Manual) Metamyelocytes % Abs Neuts (Manual) Lymphocytes # (Manual) Atyp Lymphs # (Manual) Monocytes # (Manual) Metamyelocytes # Nucleated RBCs Toxic Granulation Toxic Vacuolation Dohle Bodies Platelet Estimate Plt Morphology Comment RBC Morphology Polychromasia Hypochromasia Macrocytosis Pappenheimer Bodies Martha Cells Acanthocytes (Spur) Smear Path Review PT 30.7 H INR 2.6 H APTT 50.4 H VBG pH VBG pCO2 VBG pO2 VBG HCO3 VBG O2 Saturation VBG Base Excess Sodium 134 L Potassium 7.0 H* D Chloride 106 Carbon Dioxide 6 L* D Anion Gap 30 H BUN 55 H Creatinine 3.04 H Estim Creat Clear Calc 20.0 Estimated GFR 15 POC Glucose Random Glucose 5 L* Lactic Acid Calcium 7.0 L Phosphorus 8.4 H Magnesium 2.4 Total Bilirubin 4.3 H Direct Bilirubin 3.4 H AST 4527 H ALT 966 H Alkaline Phosphatase 274 H D B-Natriuretic Peptide 9985 H Total Protein 4.7 L Albumin 1.9 L Blood Type Antibody Screen Antibody Identification BRI, Polyspecific Positive BRI Work-up Crossmatch ([facility]) 04/16/22 04/16/22 04/16/22 05:36 06:24 07:56 WBC RBC Hgb Hct MCV MCH MCHC RDW Plt Count MPV Immature Gran % (Auto) Neut % (Auto) Lymph % (Auto) [place] % (Auto) Eos % (Auto) Baso % (Auto) Lymph # (Auto) [place] # (Auto) Eos # (Auto) Baso # (Auto) Abs Immat Gran (auto) Absolute Neuts (auto) Absolute Nucleated RBC Nucleated RBC % (auto) Neutrophils % (Manual) Band Neutrophils % Lymphocytes % (Manual) Atypical Lymphs % (Man) Monocytes % (Manual) Metamyelocytes % Abs Neuts (Manual) Lymphocytes # (Manual) Atyp Lymphs # (Manual) Monocytes # (Manual) Metamyelocytes # Nucleated RBCs Toxic Granulation Toxic Vacuolation Dohle Bodies Platelet Estimate Plt Morphology Comment RBC Morphology Polychromasia Hypochromasia Macrocytosis Pappenheimer Bodies Martha Cells Acanthocytes (Spur) Smear Path Review PT INR APTT VBG pH 7.10 L* VBG pCO2 18 VBG pO2 56 VBG HCO3 6 L VBG O2 Saturation 74.0 VBG Base Excess -21.4 Sodium Potassium Chloride Carbon Dioxide Anion Gap BUN Creatinine Estim Creat Clear Calc Estimated GFR POC Glucose < 10 L* 44 L* Random Glucose Lactic Acid Calcium Phosphorus Magnesium Total Bilirubin Direct Bilirubin AST ALT Alkaline Phosphatase B-Natriuretic Peptide Total Protein Albumin Blood Type Antibody Screen Antibody Identification BRI, Polyspecific Positive BRI Work-up Crossmatch ([facility]) 04/16/22 04/16/22 04/16/22 08:11 08:12 08:16 WBC RBC Hgb Hct MCV MCH MCHC RDW Plt Count MPV Immature Gran % (Auto) Neut % (Auto) Lymph % (Auto) [place] % (Auto) Eos % (Auto) Baso % (Auto) Lymph # (Auto) [place] # (Auto) Eos # (Auto) Baso # (Auto) Abs Immat Gran (auto) Absolute Neuts (auto) Absolute Nucleated RBC Nucleated RBC % (auto) Neutrophils % (Manual) Band Neutrophils % Lymphocytes % (Manual) Atypical Lymphs % (Man) Monocytes % (Manual) Metamyelocytes % Abs Neuts (Manual) Lymphocytes # (Manual) Atyp Lymphs # (Manual) Monocytes # (Manual) Metamyelocytes # Nucleated RBCs Toxic Granulation Toxic Vacuolation Dohle Bodies Platelet Estimate Plt Morphology Comment RBC Morphology Polychromasia Hypochromasia Macrocytosis Pappenheimer Bodies Martha Cells Acanthocytes (Spur) Smear Path Review PT INR APTT VBG pH 7.03 L* VBG pCO2 18 VBG pO2 64 VBG HCO3 5 L VBG O2 Saturation 79.0 VBG Base Excess -23.4 Sodium Potassium Chloride Carbon Dioxide Anion Gap BUN Creatinine Estim Creat Clear Calc Estimated GFR POC Glucose 68 Random Glucose Lactic Acid 12.9 H* Calcium Phosphorus Magnesium Total Bilirubin Direct Bilirubin AST ALT Alkaline Phosphatase B-Natriuretic Peptide Total Protein Albumin Blood Type Antibody Screen Antibody Identification BRI, Polyspecific Positive BRI Work-up Crossmatch ([facility]) Microbiology Microbiology Results: Microbiology 04/15/22 07:51 Sputum - Suctioned Gram Stain - Final 04/12/22 15:27 Blood - Venous Blood Culture - Preliminary No growth after 48 hours. 04/12/22 15:27 Blood - Venous Blood Culture - Preliminary No growth after 48 hours. 04/07/22 15:15 Blood - Venous Blood Culture - Final No growth after 5 days. 04/07/22 15:15 Blood - Venous Blood Culture - Final No growth after 5 days. 04/08/22 10:43 Sputum - Suctioned Gram Stain - Final 04/08/22 10:43 Sputum - Suctioned Sputum Culture - Final 04/03/22 11:30 Thoracentesis Fluid Gram Stain - Final 04/03/22 11:30 Thoracentesis Fluid Anaerobic Culture - Final NO GROWTH AFTER 5 DAYS 04/03/22 11:30 Thoracentesis Fluid Body Fluid Culture - Final No growth after 2 days Procedures Date of Service Date of Service: 04/16/22 Assessment & Plan Assessment and plan (1) CKD (chronic kidney disease) stage 5, GFR less than 15 ml/min: Status: Acute Plan 1. ALIZA on adv CKD now prog to ESRD and HD started 04/05. UF performed on 04/06. HD on 04/08 however patient became hypotensive and tachycardic. S/P HD with low BFR 6/7 Continue to monitor renal function and volume status. 2. Resp Failure: events noted--s/p thoracentesis and now on vent 5. SOB critically ill terminally ill Await family to decide Overall prognosis is poor. 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
[2022-04-16 10:21] LABS: Reflex Lactate? Lactic Acid Added
[2022-04-16] MEDS: Morphine Sulfate 4 MG/ML CARTRIDGE IVPUSH (11:58)
--- NOTE | 2022-04-16 12:46 | PM.DS ---
DS: Providers Provider Date of Service: 04/16/22 Date of admission: 03/15/22 07:57 Date of discharge: 04/16/22 Primary care physician: Dakotah Jin MD Consults: 03/15/22 07:57 Consult to Cardiology Routine Consulting Provider: Lonnie Estrella Reason for consultation: chf, elevated trops Has provider been notified: No 03/17/22 12:38 Consult to Urology Routine Consulting Provider: Guillermo Joy Reason for consultation: hematuria Has provider been notified: No 03/22/22 10:06 Consult to Nephrology Routine Consulting Provider: Mayur Maria Reason for consultation: carmen on CKD 04/10/22 10:14 Consult to Infectious Diseases Routine Consulting Provider: Gaye Yo Reason for consultation: Persistent leukocytosis Has provider been notified: Yes 04/15/22 08:27 Consult to Pulmonology Routine Consulting Provider: Jazmín Maynard Reason for consultation: RLL atelectasis Has provider been notified: Yes Attending physician on discharge: Jazmín Maynard Discharging clinician: Jazmín Maynard DS: Transfer Hospital Acceptance Reason for Transfer: Patient was pronounced at 12:11 p.m. and needs to be transfer to the home DS: Diagnosis Discharge Diagnosis (1) Cardiogenic shock: Status: Acute (2) Ischemic bowel disease: Status: Acute (3) Pneumonia: Status: Acute (4) Atelectasis: Status: Acute (5) Leukocytosis: Status: Acute (6) CKD (chronic kidney disease) stage 5, GFR less than 15 ml/min: Status: Acute (7) Acute respiratory failure: Status: Acute (8) CKD (chronic kidney disease) stage 5, GFR less than 15 ml/min: Status: Acute (9) Pleural effusion: Status: Acute (10) Hypotension: Status: Acute (11) CKD (chronic kidney disease) stage 4, GFR 15-29 ml/min: Status: Acute (12) Acute kidney failure: Status: Acute (13) Gross hematuria: Status: Acute (14) Acute on chronic heart failure with reduced ejection fraction and diastolic dysfunction: Status: Acute (15) Congestive heart failure: Status: Acute (16) Abdominal pain: Status: Acute (17) Hyperkalemia: Status: Acute (18) H/O mitral valve replacement: Status: Acute (19) ICD (implantable cardioverter-defibrillator) in place: Status: Acute (20) Renal cyst: Status: Acute (21) Hematuria: Status: Acute (22) Low back pain: Status: Acute (23) Ascites: Status: Acute (24) Hematuria: Status: Acute (25) Osteoarthritis of hand, left: Status: Acute (26) Cellulitis of left hand: Status: Acute (27) Ischemic cardiomyopathy: Status: Acute (28) Hypothyroid: Status: Acute (29) Hypercholesterolemia: Status: Acute (30) CHF (congestive heart failure): Status: Acute (31) Chronic atrial fibrillation: Status: Acute (32) Anemia: Status: Acute (33) Detached retina: Status: Acute (34) Elevated alkaline phosphatase level: Status: Acute (35) Bilateral edema of lower extremity: Status: Acute (36) External hemorrhoid, bleeding: Status: Acute (37) Ascites: Status: Acute (38) Prosthetic eye globe: Status: Acute (39) Pressure ulcer: Status: Acute (40) Generalized anxiety disorder: Status: Acute (41) Pancreatitis: Status: Acute (42) Hyperkalemia: Status: Acute (43) History of breast cancer: Status: Acute (44) Pressure ulcer: Status: Acute (45) Acute insomnia: Status: Acute (46) Current use of anticoagulant therapy: Status: Acute (47) Right knee pain: Status: Acute (48) Pulmonary hypertension: Status: Acute DS: Summary Hospital Course Hospital Course: 71-year-old female with hypoxemic respiratory failure initially compensated on noninvasive oxygenation diuresis and then eventually a requirement for thoracentesis without much clinical improvement but created be secondary effect of a pneumothorax which was a tension pneumothorax and then without complication chest tube was placed and several days later everything sealed and chest tube was removed but the patient's profound congestive heart failure persisted Along the way she had Armenta catheter insertion which rid caused iatrogenic urethral trauma and a very profound bleed requiring 9 units of packed red cell replacement and we got through that without complication but patient's congestive heart failure continued to deteriorate and then clinically she did you know developed stage 5 hemodialysis dependent renal failure and in the hospital developed an acute ST-elevation AL across the anterior precordium reducing the ejection fraction from 15-20% down to about 10% or less and then the patient was in persistent cardiogenic shock with multi-system organ failure including development of ileus with clear-cut ischemic bowel and profound encephalopathy corroborated by EEG in and neurologic exam which the no documented a lack of brainstem function outside of spontaneous respiration Cardiogenic shock progressed patient became densely diffusely live id with acrocyanosis and and profound progressive metabolic acidosis with with a markedly elevated lactic acid which I am sure is in part reflecting the bowel infarct Ng pH was down to 7.0 QRS complex was widening and I explained to the family that was imminent and family was able to come to keep the patient company and then decided on comfort measures and at 12:11 today the pacing ICD failed to capture she was veno officially asystolic and apneic was pronounced at 12:11 Time spent discussing smoking cessation with patient: more than 10 minutes Status at Discharge Cognitive/behavioral status at discharge: Time Spent with Patient Time attestation: Total time spent providing and/or coordinating discharge services: Discharge coordination time: Greater than 30 minutes Quality: Safe Use of Opioids Does Pt have an Active Cancer Diagnosis on the Problem List?: No Quality: Stroke Does the patient have a stroke diagnosis?: No Physical Exam Vital Signs: Vital Signs: Last Vital Signs Temp 97.3 F 04/16/22 11:00 Pulse 60 04/16/22 11:30 Resp 26 H 04/16/22 11:30 BP 100/54 L 04/16/22 11:00 Pulse Ox 98 04/16/22 11:00 O2 Del Method 04/16/22 12:00 O2 Flow Rate 40 04/07/22 03:56 FiO2 25 04/16/22 11:31 BMI result Body Mass Index 27.6 Final exam patient is pulseless and apneic no heart sounds and no breath sounds and pronounced at 12:11 DS: Data Data Completed and Pending Labs on day of discharge: Laboratory Results - last 24 hr 04/16/22 04/16/22 04/16/22 05:30 05:30 05:30 WBC 10.9 H RBC 2.73 L Hgb 8.3 L D Hct 26.8 L D MCV 98.2 H MCH 30.4 MCHC 31.0 RDW 19.1 H Plt Count 61 L D MPV Not Reportable Immature Gran % (Auto) Cancelled Neut % (Auto) Cancelled Lymph % (Auto) Cancelled [place] % (Auto) Cancelled Eos % (Auto) Cancelled Baso % (Auto) Cancelled Lymph # (Auto) Cancelled [place] # (Auto) Cancelled Eos # (Auto) Cancelled Baso # (Auto) Cancelled Abs Immat Gran (auto) Cancelled Absolute Neuts (auto) Cancelled Absolute Nucleated RBC 1.020 H Nucleated RBC % (auto) 9.4 H Neutrophils % (Manual) 62 Band Neutrophils % 25 H Lymphocytes % (Manual) 5 L Atypical Lymphs % (Man) 2 Monocytes % (Manual) 3 Metamyelocytes % 3 Abs Neuts (Manual) 9.5 H Lymphocytes # (Manual) 0.5 L Atyp Lymphs # (Manual) 0.2 Monocytes # (Manual) 0.3 Metamyelocytes # 0.3 Nucleated RBCs 14 H Toxic Granulation PRESENT Toxic Vacuolation PRESENT Dohle Bodies PRESENT Platelet Estimate DECREASED Plt Morphology Comment NORMAL RBC Morphology NOTED Polychromasia 1+ (0-2) Hypochromasia 1+ (5-14) Macrocytosis 1+ (5-14) Pappenheimer Bodies PRESENT [place] Cells 2+ (3-5) Acanthocytes (Spur) 1+ (0-2) PT INR APTT VBG pH VBG pCO2 VBG pO2 VBG HCO3 VBG O2 Saturation VBG Base Excess Sodium 134 L Potassium 7.0 H* D Chloride 106 Carbon Dioxide 6 L* D Anion Gap 30 H BUN 55 H Creatinine 3.04 H Estim Creat Clear Calc 20.0 Estimated GFR 15 POC Glucose Random Glucose 5 L* Lactic Acid Calcium 7.0 L Phosphorus 8.4 H Magnesium 2.4 Total Bilirubin 4.3 H Direct Bilirubin 3.4 H AST 4527 H ALT 966 H Alkaline Phosphatase 274 H D B-Natriuretic Peptide 9985 H Total Protein 4.7 L Albumin 1.9 L 04/16/22 04/16/22 04/16/22 05:30 05:36 06:24 WBC RBC Hgb Hct MCV MCH MCHC RDW Plt Count MPV Immature Gran % (Auto) Neut % (Auto) Lymph % (Auto) [place] % (Auto) Eos % (Auto) Baso % (Auto) Lymph # (Auto) [place] # (Auto) Eos # (Auto) Baso # (Auto) Abs Immat Gran (auto) Absolute Neuts (auto) Absolute Nucleated RBC Nucleated RBC % (auto) Neutrophils % (Manual) Band Neutrophils % Lymphocytes % (Manual) Atypical Lymphs % (Man) Monocytes % (Manual) Metamyelocytes % Abs Neuts (Manual) Lymphocytes # (Manual) Atyp Lymphs # (Manual) Monocytes # (Manual) Metamyelocytes # Nucleated RBCs Toxic Granulation Toxic Vacuolation Dohle Bodies Platelet Estimate Plt Morphology Comment RBC Morphology Polychromasia Hypochromasia Macrocytosis Pappenheimer Bodies Martha Cells Acanthocytes (Spur) PT 30.7 H INR 2.6 H APTT 50.4 H VBG pH 7.10 L* VBG pCO2 18 VBG pO2 56 VBG HCO3 6 L VBG O2 Saturation 74.0 VBG Base Excess -21.4 Sodium Potassium Chloride Carbon Dioxide Anion Gap BUN Creatinine Estim Creat Clear Calc Estimated GFR POC Glucose < 10 L* Random Glucose Lactic Acid Calcium Phosphorus Magnesium Total Bilirubin Direct Bilirubin AST ALT Alkaline Phosphatase B-Natriuretic Peptide Total Protein Albumin 04/16/22 04/16/22 04/16/22 07:56 08:11 08:12 WBC RBC Hgb Hct MCV MCH MCHC RDW Plt Count MPV Immature Gran % (Auto) Neut % (Auto) Lymph % (Auto) [place] % (Auto) Eos % (Auto) Baso % (Auto) Lymph # (Auto) [place] # (Auto) Eos # (Auto) Baso # (Auto) Abs Immat Gran (auto) Absolute Neuts (auto) Absolute Nucleated RBC Nucleated RBC % (auto) Neutrophils % (Manual) Band Neutrophils % Lymphocytes % (Manual) Atypical Lymphs % (Man) Monocytes % (Manual) Metamyelocytes % Abs Neuts (Manual) Lymphocytes # (Manual) Atyp Lymphs # (Manual) Monocytes # (Manual) Metamyelocytes # Nucleated RBCs Toxic Granulation Toxic Vacuolation Dohle Bodies Platelet Estimate Plt Morphology Comment RBC Morphology Polychromasia Hypochromasia Macrocytosis Pappenheimer Bodies Martha Cells Acanthocytes (Spur) PT INR APTT VBG pH 7.03 L* VBG pCO2 18 VBG pO2 64 VBG HCO3 5 L VBG O2 Saturation 79.0 VBG Base Excess -23.4 Sodium Potassium Chloride Carbon Dioxide Anion Gap BUN Creatinine Estim Creat Clear Calc Estimated GFR POC Glucose 44 L* Random Glucose Lactic Acid 12.9 H* Calcium Phosphorus Magnesium Total Bilirubin Direct Bilirubin AST ALT Alkaline Phosphatase B-Natriuretic Peptide Total Protein Albumin 04/16/22 08:16 WBC RBC Hgb Hct MCV MCH MCHC RDW Plt Count MPV Immature Gran % (Auto) Neut % (Auto) Lymph % (Auto) [place] % (Auto) Eos % (Auto) Baso % (Auto) Lymph # (Auto) [place] # (Auto) Eos # (Auto) Baso # (Auto) Abs Immat Gran (auto) Absolute Neuts (auto) Absolute Nucleated RBC Nucleated RBC % (auto) Neutrophils % (Manual) Band Neutrophils % Lymphocytes % (Manual) Atypical Lymphs % (Man) Monocytes % (Manual) Metamyelocytes % Abs Neuts (Manual) Lymphocytes # (Manual) Atyp Lymphs # (Manual) Monocytes # (Manual) Metamyelocytes # Nucleated RBCs Toxic Granulation Toxic Vacuolation Dohle Bodies Platelet Estimate Plt Morphology Comment RBC Morphology Polychromasia Hypochromasia Macrocytosis Pappenheimer Bodies [place] Cells Acanthocytes (Spur) PT INR APTT VBG pH VBG pCO2 VBG pO2 VBG HCO3 VBG O2 Saturation VBG Base Excess Sodium Potassium Chloride Carbon Dioxide Anion Gap BUN Creatinine Estim Creat Clear Calc Estimated GFR POC Glucose 68 Random Glucose Lactic Acid Calcium Phosphorus Magnesium Total Bilirubin Direct Bilirubin AST ALT Alkaline Phosphatase B-Natriuretic Peptide Total Protein Albumin Preliminary micro results at discharge 04/12/22 15:27 Blood Culture - Preliminary Blood - Venous No growth after 48 hours. 04/12/22 15:27 Blood Culture - Preliminary Blood - Venous No growth after 48 hours. Discharge Plan Discharge Anticipated Discharge Date/Time: 04/16/22 12:54 Patient Disposition: Discharge Diagnosis: Cardiogenic shock due to acute AL superimposed on chronic ischemic cardiomyopathy Acute on chronic hypoxemic respiratory failure Acute on chronic end-stage renal failure and hemodialysis dependent Referrals: Po,Dakotah Ahumada MD [Primary Care Provider] - 1 Week Discharge Medications: No Action (DME) prosthetics Kit See Rx Instructions .ROUTE .MEDSUPPLY Qty: 1 0RF Rx Instructions: left prosthetic eye cleaning and evaluation for replacement levothyroxine 137 mcg tablet 137 mcg PO QAM Qty: 90 3RF (DME) JUXTA LITe compression See Rx Instructions .Route .MEDSUPPLY Qty: 2 0RF Rx Instructions: I pair- bilateral leg- knee high Juxta- lite (DME) walker Misc See Rx Instructions .Route Qty: 1 0RF Rx Instructions: Upright Walker (DME) occular prosthetic. See Rx Instructions .Route .MEDSUPPLY Qty: 1 0RF Rx Instructions: As directed furosemide 20 mg tablet 20 mg PO BID 90 Days Qty: 180 3RF aspirin 81 mg tablet,delayed release (DR/EC) 81 mg PO DAILY Qty: 90 3RF omeprazole 20 mg capsule,delayed release(DR/EC) 20 mg PO DAILY Qty: 90 2RF cyclobenzaprine 5 mg tablet 5 mg PO BEDTIME PRN (Reason: muscle spasm) Qty: 14 0RF carvedilol 12.5 mg tablet 12.5 mg PO BIDWM 90 Days Qty: 180 1RF Protocol: Hold for SBP/HR < HOLD for SBP < : 90 HOLD for HR < : 60 isosorbide dinitrate 5 mg tablet 5 mg PO BID Qty: 180 3RF ferrous sulfate 324 mg (65 mg iron) tablet,delayed release (DR/EC) 324 mg PO BID Qty: 60 3RF calcium 750 mg PO DAILY Rx Instructions: TUMS? trazodone 50 mg tablet 50 mg PO BEDTIME PRN (Reason: for insomnia) rosuvastatin 10 mg tablet 10 mg PO BEDTIME PreserVision AREDS [id number] capsule 1 cap PO BID fluoxetine 20 mg capsule 40 mg PO DAILY warfarin 2.5 mg Tablet 2.5 mg PO SUMOTUTHFRSA warfarin 2.5 mg Tablet 1.25 mg PO WE potassium chloride [Klor-Con M20] 20 mEq tablet,ER particles/crystals 1 tab PO Q2D docusate sodium 100 mg Capsule 200 mg PO BEDTIME artifi.tears(hypromellose)(PF) 0.3 % drops 1 drp ophthalmic (eye) TID acetaminophen [Tylenol] 325 mg capsule 325 mg PO QID PRN (Reason: Pain) ascorbic acid (vitamin C) 500 mg capsule, extended release 500 mg PO BID Qty: 60 3RF warfarin 2.5 mg tablet 2.5 mg PO .COMPLEX Protocol: Dose Management Condition: Thursday (Week One) Dose/Route: 2.5 mg Instruction: 1 x 2.5 mg tablet Condition: Thursday Dose/Route: 0 mg Instruction: 0 tablets Condition: Thursday Dose/Route: 2.5 mg Instruction: 1 x 2.5 mg tablet Condition: Thursday Dose/Route: 1.25 mg Instruction: 0.5 x 2.5 mg tablets Condition: Dose/Route: 2.5 mg Instruction: 1 x 2.5 mg tablet Condition: Thursday Dose/Route: 2.5 mg Instruction: 1 x 2.5 mg tablet Condition: Thursday Dose/Route: 2.5 mg Instruction: 1 x 2.5 mg tablet Condition: Thursday (Week Two) Dose/Route: 2.5 mg Instruction: 1 x 2.5 mg tablet Condition: Thursday Dose/Route: 2.5 mg Instruction: 1 x 2.5 mg tablet Condition: Thursday Dose/Route: 2.5 mg Instruction: 1 x 2.5 mg tablet Condition: Thursday Dose/Route: 1.25 mg Instruction: 0.5 x 2.5 mg tablets Condition: Dose/Route: 2.5 mg Instruction: 1 x 2.5 mg tablet Condition: Thursday Dose/Route: 2.5 mg Instruction: 1 x 2.5 mg tablet Condition: Thursday Dose/Route: 2.5 mg Instruction: 1 x 2.5 mg tablet Protocol Text: Adjustment Start Date: 03/13/22 INR Value: 3.0 INR Date: 03/13/22 Recheck Date: 03/17/22 Additional Instructions: cont reg dosing Rx Instructions: 2.5 mg PO 6d/ 1.25mg thu;
--- NOTE | 2022-04-16 13:11 | PC.NURSE ---
Assumed care at 0700. Patient was initially on ventilator with AC/VC settings, 14;350;5; 25%. ETT #7.5 at 21 at the lip, ET CO2 17, Te 8.7; resp rate 22. Patient was initially on no sedation, and with no response to pain. Left eye artificial, right eye with briskly responsive 3 mm to light. weak cough, no gag, no response to pain all four extremities. breathes over vent. Patient overnight with hypoglycemia, checked POC in followup was 44 at 8 am; gave 1 amp d50%, recheck at 815 was 68, discussed with MD and no new orders, no need to follow-up POC given plan moving to [facility]. Patient with afib on monitor. cardiac pacemaker right upper chest. anasarca with + 4 edema to bilateral thighs and +3 to right arm. Heart sounds with click. CVP 8. hypoactive BS. skin noted to be mottling to posterior bilateral thighs and left posterior hip. longitudinal blister down left posterior thigh, dti to coccyx venous discoloration to legs bilaterally. Family in to visit, goals of care discussion, declined visit from spiritual customer retention representative, [facility] order, extubated at 12:03 after 4 mg IV morphine per MD, time of 12:11. [facility] [address] [facility] in [place]. Called Maggy and Joanne at [facility] declined for all donation Ref #[id number].
[2022-04-16 13:16] LABS: HIT-Patient Optical Density 0.063 OD UNITS (<OR= 0.300); Heparin Induced Plt Ab NEGATIVE (NEGATIVE)
[2022-04-17 19:17] LABS: Legionella Ag Urine Not Detected (Not Detected)
== END 2022-04-16 12:11 | disposition expired | DRG 987 ==
LOC: HO.ED 03-15 04:15 → HO.EDOVER 03-15 08:10 → HO.S3 03-15 15:54 → HO.IMC 04-02 15:56 → HO.ICU 04-06 11:20
PROVIDERS: Anesthesiology; Hospitalist; Internal Medicine; Internal Medicine Nephrology; Internal Medicine Pulmonary Disease; Nurse Practitioner Acute Care; Physician Assistant; Physician Assistant Medical; Radiology Diagnostic Radiology; Student in an Organized Health Care Education/Training Program; Urology; Admitting Provider Physician Assistant Medical; Emergency Provider Emergency Medicine Emergency Medical Services; PCP Internal Medicine; Visit Provider Internal Medicine Cardiovascular Disease
PROC: 0T5B8ZZ Destruction of Bladder, Via Natural or Artificial Opening Endoscopic (ICD-10-PCS; principal; 2022-03-24 15:20)
PROC: 0W993ZZ Drainage of Right Pleural Cavity, Percutaneous Approach (ICD-10-PCS; principal; 2022-04-03 10:00)
PROC: 02HV33Z Insertion of Infusion Device into Superior Vena Cava, Percutaneous Approach (ICD-10-PCS; principal; 2022-04-04 10:00)
DX: I13.2 Hypertensive heart and chronic kidney disease with heart failure and with stage 5 chronic kidney disease, or end stage renal disease (principal); I50.43 Acute on chronic combined systolic (congestive) and diastolic (congestive) heart failure; N17.0 Acute kidney failure with tubular necrosis; J96.21 Acute and chronic respiratory failure with hypoxia; J96.22 Acute and chronic respiratory failure with hypercapnia; G93.41 Metabolic encephalopathy; J69.0 Pneumonitis due to inhalation of food and vomit; N18.6 End stage renal disease; E43 Unspecified severe protein-calorie malnutrition; J93.0 Spontaneous tension pneumothorax; D68.32 Hemorrhagic disorder due to extrinsic circulating anticoagulants; T83.83XA Hemorrhage due to genitourinary prosthetic devices, implants and grafts, initial encounter; D62 Acute posthemorrhagic anemia; E85.9 Amyloidosis, unspecified; G72.81 Critical illness myopathy; K56.7 Ileus, unspecified; Z66 Do not resuscitate; Z51.5 Encounter for palliative care; I25.5 Ischemic cardiomyopathy; Z95.810 Presence of automatic (implantable) cardiac defibrillator; Z87.442 Personal history of urinary calculi; E03.9 Hypothyroidism, unspecified; E87.5 Hyperkalemia; E78.5 Hyperlipidemia, unspecified; D69.6 Thrombocytopenia, unspecified; N25.0 Renal osteodystrophy; I07.1 Rheumatic tricuspid insufficiency; I95.9 Hypotension, unspecified; R31.0 Gross hematuria; D63.1 Anemia in chronic kidney disease; T45.515A Adverse effect of anticoagulants, initial encounter; I25.10 Atherosclerotic heart disease of native coronary artery without angina pectoris; Z98.84 Bariatric surgery status; I25.2 Old myocardial infarction; L89.156 Pressure-induced deep tissue damage of sacral region; Z68.20 Body mass index [BMI] 20.0-20.9, adult; Z20.822 Contact with and (suspected) exposure to COVID-19; Z95.2 Presence of prosthetic heart valve; M10.9 Gout, unspecified; Z79.01 Long term (current) use of anticoagulants; Z79.82 Long term (current) use of aspirin; Z79.890 Hormone replacement therapy; Z79.899 Other long term (current) drug therapy
CPT/HCPCS: 32555; 36415; 36430; 36556; 36600; 71045; 71046; 71250; 74018; 74176; 80048; 80053; 80076; 81001; 82040; 82042; 82803; 82945; 82947; 83605; 83615; 83690; 83735; 83880; 84100; 84157; 84478; 84484; 85007; 85014; 85018; 85025; 85027; 85610; 85730; 86022; 86704; 86706; 86850; 86870; 86880; 86900; 86901; 86902; 86905; 86920; 86922; 87040; 87070; 87073; 87186; 87205; 87340; 87449; 87502; 87635; 87640; 87641; 89051; 90999; 93005; 93306; 94002; 94003; 94640; 94660; 94799; 95816; 97162; 99285; C1750; C1758; C1769; J0610; J1100; J1205; J1940; J2060; J2185; J2212; J2270; J2370; J2405; J2543; J2765; J3010; J3370; P9016; P9017; P9047